=== PATIENT | female | born 1935 | race Caucasian/White ===

== ENCOUNTER → 2016-12-23 | Outpatient (CLI) | payer OTHER ==
[~2016-12-23] MED LIST: ALBINS/ INH; AMLO-114 PO; AMLO10TA2 PO; ASPEC81 PO; ASPI81TA28 PO; BENZ100C7 PO; CALC0.5C2 PO; CARV12.5 PO; CARV25TA2 PO; CRG125 PO; DOXY100C PO; ERGO1CAP35 PO; FRS/40 PO; FRS/80 PO; GFNSR600 PO; INSHI7030 SC; IPRA1AER2 INH; ISR10 PO; LISI40TA PO; LSN40 PO; MECL1TAB40 PO; NRV/10 PO; NRV/5 PO; NVLNI SQ; OMEP20TA PO; PRED10TA PO; PROAIR INH; RANI300T PO; ROSU20TA PO; SENNTAB23 PO; VTMD PO
[2016-12-23 10:24] LABS: HEMATOCRIT 39.3 % (37-47); MEAN CELL VOLUME 87.1 fL (80-100); MEAN CORPUSCULAR HEMOGLOBIN 29.5 pg (25-34); MEAN CORPUSCULAR HGB CONC 33.8 g/dl (32-36); MEAN PLATELET VOLUME 9.8 fL (7.4-10.4); PLATELET COUNT 289 K/uL (130-400); RED BLOOD COUNT 4.51 M/uL (4.2-5.4); WHITE BLOOD COUNT 10.59 K/uL (4.8-10.8)
[2016-12-23 10:27] LABS: URINE APPEARANCE CLEAR (CLEAR); URINE BILIRUBIN NEG (NEG); URINE COLOR YELLOW; URINE EPITHELIAL CELL AUTO >30 /lpf (0-5); URINE NITRITE NEG (NEG); URINE SPECIFIC GRAVITY 1.006 (1.000-1.030); UROBILINOGEN NEG (NEG)
[2016-12-23 10:37] LABS: BLOOD UREA NITROGEN 29 mg/dl (7-18); BUN/CREATININE RATIO 15.9 (10-20); CALCIUM 9.2 mg/dl (8.5-10.1); CARBON DIOXIDE 28 mmol/L (21-32); CHLORIDE 103 mmol/L (98-107); GLUCOSE 150 mg/dl (70-99); PHOSPHORUS 3.3 mg/dl (2.5-4.9); SODIUM 141 mmol/L (136-145)
[2016-12-23 10:39] LABS: MANUAL MICROSCOPIC REQUIRED? NO; REVIEW REQ? NO
[2016-12-23 10:51] LABS: URINE PROTIEN/CREAT RATIO 0.2 (0-0.2); URINE TOTAL PROTEIN 22.2 mg/dl (0-11.9)
== END | disposition home or self-care (01) ==
LOC: C.LAB1850 09:32
PROVIDERS: ATTEND Internal Medicine Nephrology
DX: N25.81 Secondary hyperparathyroidism of renal origin (principal); I12.9 Hypertensive chronic kidney disease with stage 1 through stage 4 chronic kidney disease, or unspecified chronic kidney disease; N28.1 Cyst of kidney, acquired; E55.9 Vitamin D deficiency, unspecified; N18.4 Chronic kidney disease, stage 4 (severe)

== ENCOUNTER 2017-01-17 19:24 | Observation (INO) | payer OTHER ==
[~2017-01-17] VITALS: Ht 167.6 cm; Wt 105.1 kg
[~2017-01-17 19:24] MED LIST changes: -ALBINS/ INH; -AMLO-114 PO; -ASPI81TA28 PO; -BENZ100C7 PO; -CRG125 PO; -DOXY100C PO; -FRS/40 PO; -INSHI7030 SC; -ISR10 PO; -LSN40 PO; -MECL1TAB40 PO; -NRV/10 PO; -NRV/5 PO; -NVLNI SQ; -PRED10TA PO; -PROAIR INH; -RANI300T PO; -ROSU20TA PO; -SENNTAB23 PO; -VTMD PO
[2017-01-17] MEDS ORDERED: ONDANSETRON INJ 2 MG/ML 2 ML VIAL IV STA (20:56)
[2017-01-17] MEDS ORDERED: MoRPHine SULFATE 4 MG/ML 1 ML CARP\\VIAL IV STA (20:56)
[2017-01-17] MEDS ORDERED: SODIUM CHLORIDE 0.9% 500ML 500 ML IV STA (20:56)
[2017-01-17] MEDS ORDERED: ALBUT/IPRATROP 3MG/0.5MG NEB 3 ML VIAL INH STA (20:56)
--- NOTE | 2017-01-17 20:59 | EMERGENCY ROOM VISIT NOTE ---
History Report prepared by Naila: Katerina Condon Under the Supervision of: Dr. Ang Kumar M.D. First contact with patient: 20:49 Chief Complaint: CONGESTION Stated Complaint: SOB, CHEST PAIN DUE TO COLD, DIABETIC Nursing Triage Summary: c/o cough and congestion since sat. more short of breath. History of Present Illness The patient is a 81 year old female who presents to the Emergency Room with complaints of worsening cough and congestion that started 4 days ago. Associated symptoms include a "burning" chest pain, headaches, abdominal pain, nausea, and shortness of breath. The patient has a history of diabetes and hypertension. She did receive a flu vaccination this year. The patient has been using a breathing treatment today which offered mild relief of her symptoms. She denies a sore throat. Source of History: patient Onset: 4 days ago Position: other (Respiratory System ) Timing: worsening Modifying Factors (Relieving): other (Breathing treatment ) Associated Symptoms: + abdominal pain, + chest pain, + headache, + nausea, No sorethroat Review of Systems See HPI for pertinent positives & negatives. A total of 10 systems reviewed and were otherwise negative. Past Medical & Surgical Medical Problems: (1) DM (diabetes mellitus) (2) HTN (hypertension) (3) Irregular heart beat (4) Kidney disease Surgical Problems: (1) H/O: hysterectomy (2) Hx of appendectomy (3) Hx of cholecystectomy Family History Diabetes mellitus Heart disease Hypertension Social History Smoking Status: Never Smoker Drug Use: none Housing Status: lives alone Occupation Status: retired Current/Historical Medications Scheduled Amlodipine Besylate (Amlodipine Besylate), 5 MG PO DAILY Aspirin (Aspirin Ec), 81 MG PO DAILY Carvedilol (Carvedilol), 12.5 MG PO BID Ergocalciferol (Vitamin D), 50,000 UNIT PO WK Furosemide (Lasix), 40 MG PO TID Insulin Human Isophan/Regular (Humulin 70/30), 68 UNITS SC QAM Insulin Human Isophan/Regular (Humulin 70/30), 42 UNITS SC QPM Insulin Human NPH (Novolin N), 4 UNITS SQ AC Isosorbide Dinitrate (Isosorbide Dinitrate), 10 MG PO BID Lisinopril (Lisinopril), 40 MG PO DAILY Ranitidine Hcl (Zantac), 300 MG PO HS Rosuvastatin Calcium (Crestor), 10 MG PO DAILY [Proair], 2 PUFFS INH QID Scheduled PRN Benzonatate (Benzonatate), 100 MG PO TID PRN for Cough Meclizine HCl (Meclizine HCl), 12.5 MG PO TID PRN for Dizziness or Vertigo Allergies Coded Allergies: Morphine (Verified Allergy, Intermediate, confusion, 01/17/17) Codeine (Verified Allergy, Unknown, 03/07/13) Amlodipine (Verified Adverse Reaction, Mild, 03/07/13) UNKNOWN RXN TO AMLODIPINE-STILL TAKES NORVASC AT HOME Homatropine (Verified Adverse Reaction, Mild, 03/07/13) Replaces HYCODAN ANXIETY Hydrocodone (Verified Adverse Reaction, Mild, 03/07/13) Replaces HYCODAN ANXIETY Phenylpropanolamine (Verified Adverse Reaction, Unknown, 03/07/13) Replaces GUAIFENESIN/P Physical Exam Vital Signs Date Time Temp Pulse Resp B/P Pulse Ox O2 Delivery O2 Flow Rate FiO2 01/17/17 23:52 86 18 236/114 92 Room Air 01/17/17 23:24 83 01/17/17 23:19 86 20 233/108 96 Room Air 01/17/17 22:34 244/109 01/17/17 22:06 83 22 196/106 95 Room Air 01/17/17 21:25 86 16 210/110 97 Room Air 01/17/17 19:28 37.0 101 24 196/84 92 Room Air Physical Exam GENERAL: Patient is anxious appearing and in mild distress. Periodic cough noted. HEENT: No acute trauma, normocephalic atraumatic, mucous membranes moist, no nasal congestion, no scleral icterus. NECK: No stridor, no adenopathy, no meningismus, trachea is midline. LUNGS: Faint wheezing. No dyspnea. Breath sounds equal bilaterally. No rhonchi. HEART: Regular rate and rhythm. No murmurs, rubs, gallops appreciated. ABDOMEN: Soft, nontender, bowel sounds positive, no masses appreciated, no peritonitis. BACK: No midline tenderness, no CVA tenderness EXTREMITIES: Normal motion all extremities, no cyanosis, no edema. NEUROLOGIC: Alert and oriented, no acute motor or sensory deficits, no focal weakness, cranial nerves grossly intact. SKIN: No rash, no jaundice, no diaphoresis. Medical Decision & Procedures ER Provider Diagnostic Interpretation: X ray results are stated below per my interpretation and the radiologist's interpretation. SINGLE VIEW CHEST CLINICAL HISTORY: Dyspnea. FINDINGS: An AP, portable, upright chest radiograph is compared to study dated 11/17/2014. The examination is degraded by portable technique and apical lordotic positioning. The heart is enlarged and there is mild atherosclerotic calcification of the thoracic aorta. The pulmonary vasculature is noncongested. Chronic interstitial thickening is unchanged. The lungs and pleural spaces are clear. No pneumothorax is seen. The skeletal structures are osteopenic. The bony thorax is grossly intact. IMPRESSION: Cardiomegaly with no acute cardiopulmonary abnormality. Electronically signed by: Marco Morocho M.D. 01/17/2017 10:04 PM Dictated Date/Time: 01/17/2017 10:04 PM Laboratory Results 01/17/17 20:35 Red Blood Count 4.83, Mean Corpuscular Volume 85.5, Mean Corpuscular Hemoglobin 29.8, Mean Corpuscular Hemoglobin Concent 34.9, Mean Platelet Volume 9.6, Neutrophils (%) (Auto) 68.7, Lymphocytes (%) (Auto) 13.8, Monocytes (%) (Auto) 13.4, Eosinophils (%) (Auto) 3.4, Basophils (%) (Auto) 0.3, Neutrophils # (Auto ) 5.19, Lymphocytes # (Auto) 1.04, Monocytes # (Auto) 1.01, Eosinophils # (Auto ) 0.26, Basophils # (Auto) 0.02 01/17/17 20:35 Test 01/17/17 20:35 01/17/17 21:22 01/17/17 21:50 01/17/17 21:57 White Blood Count 7.55 K/uL (4.8-10.8) Red Blood Count 4.83 M/uL (4.2-5.4) Hemoglobin 14.4 g/dL (12.0-16.0) Hematocrit 41.3 % (37-47) Mean Corpuscular Volume 85.5 fL (80-100) Mean Corpuscular Hemoglobin 29.8 pg (25-34) Mean Corpuscular Hemoglobin Concent 34.9 g/dl (32-36) Platelet Count 262 K/uL (130-400) Mean Platelet Volume 9.6 fL (7.4-10.4) Neutrophils (%) (Auto) 68.7 % Lymphocytes (%) (Auto) 13.8 % Monocytes (%) (Auto) 13.4 % Eosinophils (%) (Auto) 3.4 % Basophils (%) (Auto) 0.3 % Neutrophils # (Auto) 5.19 K/uL (1.4-6.5) Lymphocytes # (Auto) 1.04 K/uL (1.2-3.4) Monocytes # (Auto) 1.01 K/uL (0.11-0.59) Eosinophils # (Auto) 0.26 K/uL (0-0.5) Basophils # (Auto) 0.02 K/uL (0-0.2) RDW Standard Deviation 42.6 fL (36.4-46.3) RDW Coefficient of Variation 13.7 % (11.5-14.5) Immature Granulocyte % (Auto) 0.4 % Immature Granulocyte # (Auto) 0.03 K/uL (0.00-0.02) Anion Gap 9.0 mmol/L (3-11) Est Creatinine Clear Calc Drug Dose 31.8 ml/min Estimated GFR () 32.0 Estimated GFR (Non- 27.6 BUN/Creatinine Ratio 17.1 (10-20) Calcium Level 9.9 mg/dl (8.5-10.1) Magnesium Level 2.1 mg/dl (1.8-2.4) Total Bilirubin 1.2 mg/dl (0.2-1) Direct Bilirubin 0.2 mg/dl (0-0.2) Aspartate Amino Transf (AST/SGOT) 18 U/L (15-37) Alanine Aminotransferase (ALT/SGPT) 27 U/L (12-78) Alkaline Phosphatase 85 U/L (45-117) Troponin I < 0.015 ng/ml (0-0.045) Total Protein 7.8 gm/dl (6.4-8.2) Albumin 4.2 gm/dl (3.4-5.0) Lipase 202 U/L (73-393) Bedside Lactic Acid Venous 1.21 mmol/L (0.90-1.70) Influenza Type A Antigen Neg for Influ A (NEG) Influenza Type B Antigen Neg for Influ B (NEG) Bedside Glucose 202 mg/dl (70-90) Test 01/17/17 23:25 Laboratory results as reviewed by me. Medications Administered Medications (Trade) Dose Ordered Sig/Riky Route Start Time Stop Time Status Last Admin Dose Admin Albuterol/ Ipratropium 3 ml 3 ml NOW STAT INH 01/17/17 20:56 01/17/17 20:58 DC 01/17/17 21:10 3 ML Sodium Chloride (Nss 500ml) 500 ml @ 999 mls/hr Q31M STAT IV 01/17/17 20:56 01/17/17 21:26 DC 01/17/17 21:11 999 MLS/HR Morphine Sulfate (MoRPHine SULFATE INJ) 2 mg NOW STAT IV 01/17/17 20:56 01/17/17 20:58 DC 01/17/17 21:11 2 MG Ondansetron HCl (Zofran Inj) 4 mg NOW STAT IV 01/17/17 20:56 01/17/17 20:58 DC 01/17/17 21:10 4 MG Labetalol HCl (Normodyne IV) 10 mg NOW STAT IV 01/17/17 21:54 01/17/17 21:55 DC 01/17/17 22:10 10 MG Labetalol HCl (Normodyne IV) 10 mg NOW STAT IV 01/17/17 22:39 01/17/17 22:40 DC 01/17/17 22:42 10 MG Hydrocodone Bit/ Homatropine Methylb (Hycodan Syrup) 5 ml NOW STAT PO 01/17/17 22:46 01/17/17 22:47 DC 01/17/17 23:13 5 ML Labetalol HCl (Normodyne IV) 10 mg NOW STAT IV 01/17/17 23:10 01/17/17 23:11 DC 01/17/17 23:15 10 MG ECG Indication: chest pain Rate (beats per minute): 86 Findings: no acute ischemic change, no ectopy, other (QTc 455) Change: no significant change ED Course 2051: The patient was evaluated in room C6. A complete history and physical exam was performed. 2055: Zofran Injection 4 mg IV, Morphine Sulfate 2 mg IV, Sodium Chloride 500 ml @ 999 mls/hr IV, DuoNeb 3 ml INH. 2153: Ordered Labetalol HCL IV 10 mg IV. 2238: Upon reevaluation, the patient's blood pressure is up to 244/109. The patient will receive another dose of Labetalol. She denies allergies to anything but Codeine. She would like to try Hycodan Syrup. 2239: Ordered Labetalol HCL 10 mg IV. 2246: Ordered Hycodan Syrup 5 ml PO. 2310: Ordered Labetalol HCL 10 mg IV. 2314: I discussed the patient's case with Dr. Doherty ([place]). He will evaluate the patient for further management and care. 2317: I spoke with the patient. She is agreeable with the treatment plan. Medical Decision Differential diagnosis: Etiologies such as infections, reactive airway disease, pneumonia, pneumothorax , COPD, CHF, cardiac ischemia, pulmonary embolism, musculoskeletal, gastrointestinal, as well as others were entertained. 81 yr old female with persistent worsening cough over last few weeks. Tried doxy without improvement. Arrived for cough though quite hypertensive. Persistent even after 3 rounds of labetalol. Neb given with mild improvement. Tried some Hycodan and adamant not allergic to it or components. Will defer further abx and steroids to hospitalist as no clear infectious etiology. Consults Time Called: 2311 Consulting Physician: Dr. Doherty ([place]) Returned Call: 2313 I discussed the patient's case with Dr. Doherty ([place]). He will evaluate the patient for further management and care. Impression Primary Impression: Hypertensive emergency Additional Impression: Persistent cough Scribe Attestation The scribe's documentation has been prepared under my direction and personally reviewed by me in its entirety. I confirm that the note above accurately reflects all work, treatment, procedures, and medical decision making performed by me. Departure Information Dispostion Being Evaluated By Hospitalist Fox Craig M.D. (PCP) Patient Instructions My [facility] Problem Qualifiers
[2017-01-17 21:04] LABS: BASO % 0.3 %; BASO ABS # 0.02 K/uL (0-0.2); COMPLETE YES; EOS % 3.4 %; HEMATOCRIT 41.3 % (37-47); IG% 0.4 %; LYMPH % 13.8 %; LYMPH ABS # 1.04 K/uL (1.2-3.4); MEAN CELL VOLUME 85.5 fL (80-100); MEAN CORPUSCULAR HEMOGLOBIN 29.8 pg (25-34); MEAN CORPUSCULAR HGB CONC 34.9 g/dl (32-36); MEAN PLATELET VOLUME 9.6 fL (7.4-10.4); MONO % 13.4 %; NEUT % 68.7 %; PLATELET COUNT 262 K/uL (130-400); RED BLOOD COUNT 4.83 M/uL (4.2-5.4); WHITE BLOOD COUNT 7.55 K/uL (4.8-10.8)
[2017-01-17] MEDS ORDERED: NVLNI SQ (21:10)
[2017-01-17] MEDS ORDERED: LSN40 PO (21:10)
[2017-01-17] MEDS ORDERED: ISR10 PO (21:10)
[2017-01-17] MEDS ORDERED: CRG125 PO (21:10)
[2017-01-17] MEDS ORDERED: RANI300T PO (21:10)
[2017-01-17] MEDS ORDERED: VTMD PO (21:10)
[2017-01-17] MEDS ORDERED: MECL1TAB40 PO (21:10)
[2017-01-17] MEDS ORDERED: ASPI81TA28 PO (21:10)
[2017-01-17] MEDS ORDERED: NRV/5 PO (21:10)
[2017-01-17] MEDS ORDERED: BENZ100C7 PO (21:10)
[2017-01-17] MEDS ORDERED: PROAIR INH (21:10)
[2017-01-17 21:22] LABS: ALT/SGPT 27 U/L (12-78); BLOOD UREA NITROGEN 29 mg/dl (7-18); BUN/CREATININE RATIO 17.1 (10-20); CALCIUM 9.9 mg/dl (8.5-10.1); CARBON DIOXIDE 26 mmol/L (21-32); CHLORIDE 103 mmol/L (98-107); GLUCOSE 230 mg/dl (70-99); POTASSIUM 3.7 mmol/L (3.5-5.1); SODIUM 138 mmol/L (136-145)
[2017-01-17 21:27] LABS: ALKALINE PHOSPHATASE 85 U/L (45-117); AST/SGOT 18 U/L (15-37)
[2017-01-17] MEDS ORDERED: FRS/40 PO (21:29)
[2017-01-17] MEDS ORDERED: LABETALOL HCL IV 5 MG/ML 20ML IV STA ×3 (21:54→23:10)
[2017-01-17] MEDS ORDERED: INSHI7030 SC ×2 (21:59)
[2017-01-17] MEDS ORDERED: ROSU20TA PO (21:59)
--- NOTE | 2017-01-17 22:06 | DIAGNOSTIC IMAGING REPORT ---
SINGLE VIEW CHEST CLINICAL HISTORY: Dyspnea. FINDINGS: An AP, portable, upright chest radiograph is compared to study dated 11/17/2014. The examination is degraded by portable technique and apical lordotic positioning. The heart is enlarged and there is mild atherosclerotic calcification of the thoracic aorta. The pulmonary vasculature is noncongested. Chronic interstitial thickening is unchanged. The lungs and pleural spaces are clear. No pneumothorax is seen. The skeletal structures are osteopenic. The bony thorax is grossly intact. IMPRESSION: Cardiomegaly with no acute cardiopulmonary abnormality. Electronically signed by: Marco Morocho M.D. 01/17/2017 10:04 PM Dictated Date/Time: 01/17/2017 10:04 PM
[2017-01-17] MEDS ORDERED: HYDROCODONE/HOMATROPINE SYRUP 5MG/1.5MG 5ML UDP PO STA (22:46)
[2017-01-17] MEDS ORDERED: AMLODIPINE BESYLATE 5 MG TAB PO ONE (23:30)
[2017-01-17 23:33] LABS: MAGNESIUM 2.1 mg/dl (1.8-2.4)
[2017-01-18] VITALS (10 sets, daily range): BP systolic 144–185; BP diastolic 53–99; PULSE 67–90; TEMP 36.5–36.9; O2SAT 90–98; Ht 167.6 cm; Wt 105.1 kg
[2017-01-18] MEDS ORDERED: LISINOPRIL 40 MG TAB PO STA (00:03)
[2017-01-18] MEDS ORDERED: FUROSEMIDE 40 MG TAB PO ONE (00:24)
[2017-01-18] MEDS ORDERED: ISOSORBIDE DINITRATE 10 MG TAB PO ONE (00:24)
[2017-01-18] MEDS ORDERED: PANTOprazole SOD 40 MG TAB PO ONE (00:26)
[2017-01-18] MEDS ORDERED: TRAMADOL HCL 50 MG TAB PO PRN (00:30)
[2017-01-18] MEDS ORDERED: ONDANSETRON INJ 2 MG/ML 2 ML VIAL IV PRN (00:30)
[2017-01-18] MEDS ORDERED: HYDROmorphone INJ 0.5 MG/0.5 ML SYR IV PRN (00:30)
[2017-01-18] MEDS ORDERED: LORAZEPAM 2 MG/ML 1 ML VIAL IV PRN (00:30)
[2017-01-18] MEDS ORDERED: ALBUT/IPRATROP 3MG/0.5MG NEB 3 ML VIAL INH PRN (00:30)
[2017-01-18] MEDS ORDERED: POTASSIUM CHLORIDE 10 MEQ TABCR PO STA (00:51)
[2017-01-18] MEDS ORDERED: ACETAMINOPHEN 325 MG TAB PO PRN (01:00)
[2017-01-18] MEDS ORDERED: GLUCOSE 40% GEL 15 GM TUBE PO PRN (01:00)
[2017-01-18] MEDS ORDERED: DEXTROSE 50% 50 ML SYR IV PRN (01:00)
[2017-01-18] MEDS ORDERED: GLUCOSE 10 TABS/TUBE PO PRN (01:00)
[2017-01-18] MEDS ORDERED: NITROGLYCERIN 0.4 MG SL PER TAB CHARGE SL PRN (01:00)
[2017-01-18] MEDS ORDERED: GLUCAGON FOR INJ 1 MG VIAL SQ PRN (01:00)
[2017-01-18] MEDS ORDERED: INSULIN GLARGINE SOLOSTAR 100 UNITS/ML 3 ML PEN SC ONE (01:15)
[2017-01-18] MEDS ORDERED: INSULIN ASPART 100 UNITS/ML 3 ML PEN SC ONE (01:15)
--- NOTE | 2017-01-18 02:39 | HISTORY & PHYSICAL EXAMINATION ---
DATE OF ADMISSION: 01/18/2017 PRIMARY CARE DOCTOR: Dr. Ramirez CHIEF COMPLAINT: Congestion, sob, headache HISTORY OF PRESENT ILLNESS: Medical history is significant for hypertension, DM2 insulin requiring, CRI (baseline creatinine from 1.8 to 2). Recent confinement in October 2014 for bronchitis. Patient was seen at the PCP's office last month for cold, flu-like symptoms for 2 weeks hx of cough and congestion. Some improvement with outpatient course of doxycycline. She admits to some sick contacts. Denies aspiration. Patient had recurrence of symptoms a few days ago acc by burning chest discomfort with shortness of breath, lia leg swelling and frontal headache symptoms. Patient is compliant with home meds. SBP at home 140s as per px. At the Emergency Room, SBP noted to be above 200. The patient was given Labetalol in the Emergency Room. MEDICAL HISTORY: As above. SURGERIES: She has had knee surgeries, hysterectomy, bilateral tubal ligation, cholecystectomy and appendectomy. HOME MEDICATIONS: Include; ProAir, Zantac, Crestor, Humulin, Novolin N, lisinopril, meclizine, aspirin, amlodipine, carvedilol, vitamin D and Lasix. ALLERGIES: TO MORPHINE, AND PHENYLPROPANOLAMINE. FAMILY HISTORY: Laryngeal cancer, stroke and throat cancer. PERSONAL AND SOCIAL HISTORY: non-smoker, no ETOH abuse, retired [employer] employee. REVIEW OF SYSTEMS: As per HPI, all other ROS negative. PHYSICAL EXAMINATION: VITAL SIGNS: Blood pressure was noted to be 244/109 later 136/104, pulse rate 86, RR 18, temperature 37 O2 sats 92 on room air. GENERAL: Noted to be obese, anxious, in no respiratory distress, incessant dry coughing. SKIN: Normal color. HEENT: [place] palpebral conjunctivae. Dry mucosa. NECK: Short neck. LUNGS: Decreased breath sounds. HEART: Regular rate and rhythm. ABDOMEN: Some distention, nontender. EXTREMITIES: min LE edema, no tenderness NEUROLOGIC: No gross focality. LABORATORIES: Hemoglobin was noted to be 14, hematocrit 40, white cell count 7.8, platelets 262 Sodium 138, K 4 chloride 103, CO2 26, BUN 13, creatinine 1.7 and glucose 200. Troponin was normal. Hemoglobin A1c from June 2016 was noted to be 7.4. Chest x-ray showed cardiomegaly and chronic interstitial thickening. EKG rate of 85, normal sinus rhythm, negative ischemia. PRWP CT of the head initial read no ICH Flu antigen test was negative. ASSESSMENT: 1. Headache secondary to hypertensive urgency, sinusitis symptoms, 2. HTN urgency 2 to missed nighttime medications, anxiety, resp illness 3. Chronic renal insufficiency, creatinine at baseline 4. Acute bronchitis sp outpx Doxycycline treatment rule out flu. no sepsis 5. DM2, insulin requiring reasonable control as of recent outpx hemoglobin A1c. 6. GERD sx, uncontrolled w/ home H2 ada PLAN: Observation PCU. facilitate home BP meds may need titration anxiolytic prn supportive management for bronchitis flu PCR, may need Tamiflu basal insulin, ISS BG goal 140-180. Patient due for a hemoglobin A1c check. add PPI to home GERD regimen DVT prophylaxis, Heparin subQ if no bleeding to head. Full code. MTDD
[2017-01-18] MEDS ORDERED: IV FLUIDS COMPLETED PRN (02:45)
[2017-01-18] MEDS ORDERED: LEVALBUTEROL/IPRATROPIUM NEB INH SCH (03:00)
[2017-01-18] MEDS ORDERED: CARVEDILOL 12.5 MG TAB PO ONE (03:00)
[2017-01-18 03:23] LABS: INFLUENZA A PCR Neg for Influ A (NEG); INFLUENZA B PCR Neg for Influ B (NEG)
[2017-01-18 06:22] LABS: ESTIMATED AVERAGE GLUCOSE 180 mg/dl; HA1C FLAG Normal (Normal)
[2017-01-18] MEDS: INSULIN ASPART 100 UNITS/ML 3 ML PEN SC SCH ×4 (06:30→21:12)
[2017-01-18] MEDS ORDERED: LORAZEPAM INJ 0.5 MG in SYRINGE 0.75 ML IV PRN (06:30)
--- NOTE | 2017-01-18 06:42 | DIAGNOSTIC IMAGING REPORT ---
CT OF THE HEAD WITHOUT CONTRAST CLINICAL HISTORY: Headache. COMPARISON STUDY: No previous studies for comparison. CT DOSE: 614.27 mGy.cm TECHNIQUE: Helical axial images of the head were obtained without IV contrast. Automated exposure control was utilized for the study. FINDINGS: No acute intracranial hemorrhage, midline shift or mass effect is present. Ventricular system is normal. Basilar cisterns are patent. There are no extra-axial collections. There are no findings to suggest acute dural sinus thrombosis or acute territorial infarct. White matter hypodensity suggests small vessel disease. There are no significant calvarial abnormalities. Mastoid air cells are clear. There is mild mucosal thickening of the sinuses. IMPRESSION: 1. No acute intracranial findings. 2. Mild sinus mucosal thickening. Electronically signed by: Chai Morales M.D. 01/18/2017 6:41 AM Dictated Date/Time: 01/18/2017 6:38 AM
[2017-01-18 06:59] LABS: BASO % 0.3 %; BASO ABS # 0.02 K/uL (0-0.2); COMPLETE YES; EOS % 2.4 %; HEMATOCRIT 39.3 % (37-47); IG% 0.3 %; LYMPH % 17.3 %; LYMPH ABS # 1.14 K/uL (1.2-3.4); MEAN CELL VOLUME 85.4 fL (80-100); MEAN CORPUSCULAR HEMOGLOBIN 29.8 pg (25-34); MEAN CORPUSCULAR HGB CONC 34.9 g/dl (32-36); MEAN PLATELET VOLUME 10.2 fL (7.4-10.4); MONO % 14.2 %; NEUT % 65.5 %; PLATELET COUNT 231 K/uL (130-400)
[2017-01-18] MEDS: IPRATROPIUM BROMIDE NEB SOLN 0.02% 2.5 ML VIAL INH SCH ×3 (07:03→20:31)
[2017-01-18] MEDS: LEVALBUTEROL 1.25MG/0.5ML NEB INH SCH ×3 (07:03→20:31)
[2017-01-18 07:32] LABS: BLOOD UREA NITROGEN 25 mg/dl (7-18); BUN/CREATININE RATIO 14.9 (10-20); CALCIUM 9.6 mg/dl (8.5-10.1); CARBON DIOXIDE 25 mmol/L (21-32); CHLORIDE 105 mmol/L (98-107); GLUCOSE 154 mg/dl (70-99); POTASSIUM 4.2 mmol/L (3.5-5.1); SODIUM 140 mmol/L (136-145)
[2017-01-18 07:43] LABS: PARTIAL THROMBOPLASTIN RATIO 1.1; PROTHROMBIN TIME (PATIENT) 10.5 SECONDS (9.0-12.0)
[2017-01-18] MEDS ORDERED: INSULIN GLARGINE SOLOSTAR 100 UNITS/ML 3 ML PEN SC SCH (09:00)
[2017-01-18] MEDS: CARVEDILOL 12.5 MG TAB PO SCH ×2 (09:04→21:11)
[2017-01-18] MEDS: ROSUVASTATIN CALCIUM 10 MG TAB PO SCH (09:04)
[2017-01-18] MEDS: ISOSORBIDE DINITRATE 10 MG TAB PO SCH ×2 (09:04→13:03)
[2017-01-18] MEDS: ASPIRIN 81 MG ECTAB PO SCH (09:05)
[2017-01-18] MEDS: FUROSEMIDE 40 MG TAB PO SCH ×3 (09:05→21:00)
[2017-01-18] MEDS: AMLODIPINE BESYLATE 5 MG TAB PO SCH (09:06)
[2017-01-18] MEDS: GUAIFENESIN 600 MG TABCR PO SCH ×2 (09:06→21:10)
[2017-01-18] MEDS: INSULIN GLARGINE SOLOSTAR 100 UNITS/ML 3 ML PEN SC SCH ×2 (09:07→21:13)
[2017-01-18] MEDS: HEPARIN SOD 5000 UNIT/0.5 ML CARP SQ SCH ×3 (09:37→21:13)
[2017-01-18] MEDS ORDERED: HYDROCODONE/HOMATROPINE SYRUP 5MG/1.5MG 5ML UDP PO PRN (11:00)
--- NOTE | 2017-01-18 17:02 | Progress Note ---
Medicine Progress Note Date & Time of Visit: Jan 18, 2017 at 16:42. Subjective Pt was seen and examined Lying in bed with no distress with daughter at bedside Pt said that she continue to have a dry cough she said that she does have some chest tenderness when coughing denies any palpitation, dizziness and sob Objective Last 8 Hrs Date Time Temp Pulse Resp B/P Pulse Ox O2 Delivery O2 Flow Rate FiO2 01/18/17 15:06 36.7 71 20 144/53 98 Room Air 01/18/17 14:19 76 16 95 Room Air 01/18/17 12:00 Room Air 01/18/17 11:54 36.9 77 20 160/81 91 Room Air Physical Exam: General- No distress, obese Head- atraumatic Eyes- PERRL, EOMI ENT- oropharynx clear Neck- supple, no JVD Lungs- mild wheezing Heart- regular rhythm; murmur Abdomen- normal bowel sounds, soft Extremities- no calf tenderness Neuro- alert, oriented x 3; PERRL, EOMI Skin- warm & dry Laboratory Results: Last 24 Hours Test 01/17/17 20:35 01/17/17 21:22 01/17/17 21:50 01/17/17 21:57 White Blood Count 7.55 K/uL Red Blood Count 4.83 M/uL Hemoglobin 14.4 g/dL Hematocrit 41.3 % Mean Corpuscular Volume 85.5 fL Mean Corpuscular Hemoglobin 29.8 pg Mean Corpuscular Hemoglobin Concent 34.9 g/dl Platelet Count 262 K/uL Mean Platelet Volume 9.6 fL Neutrophils (%) (Auto) 68.7 % Lymphocytes (%) (Auto) 13.8 % Monocytes (%) (Auto) 13.4 % Eosinophils (%) (Auto) 3.4 % Basophils (%) (Auto) 0.3 % Neutrophils # (Auto) 5.19 K/uL Lymphocytes # (Auto) 1.04 K/uL Monocytes # (Auto) 1.01 K/uL Eosinophils # (Auto) 0.26 K/uL Basophils # (Auto) 0.02 K/uL RDW Standard Deviation 42.6 fL RDW Coefficient of Variation 13.7 % Immature Granulocyte % (Auto) 0.4 % Immature Granulocyte # (Auto) 0.03 K/uL Sodium Level 138 mmol/L Potassium Level 3.7 mmol/L Chloride Level 103 mmol/L Carbon Dioxide Level 26 mmol/L Anion Gap 9.0 mmol/L Blood Urea Nitrogen 29 mg/dl Creatinine 1.70 mg/dl Est Creatinine Clear Calc Drug Dose 31.8 ml/min Estimated GFR () 32.0 Estimated GFR (Non- 27.6 BUN/Creatinine Ratio 17.1 Random Glucose 230 mg/dl Estimated Average Glucose 180 mg/dl Hemoglobin A1c 7.9 % Calcium Level 9.9 mg/dl Magnesium Level 2.1 mg/dl Total Bilirubin 1.2 mg/dl Direct Bilirubin 0.2 mg/dl Aspartate Amino Transf (AST/SGOT) 18 U/L Alanine Aminotransferase (ALT/SGPT) 27 U/L Alkaline Phosphatase 85 U/L Troponin I < 0.015 ng/ml Total Protein 7.8 gm/dl Albumin 4.2 gm/dl Lipase 202 U/L Bedside Lactic Acid Venous 1.21 mmol/L Influenza Type A (RT-PCR) Neg for Influ A Influenza Type A Antigen Neg for Influ A Influenza Type B Antigen Neg for Influ B Influenza Type B (RT-PCR) Neg for Influ B Bedside Glucose 202 mg/dl Test 01/18/17 01:30 01/18/17 06:20 01/18/17 06:55 01/18/17 07:44 Bedside Glucose 177 mg/dl 156 mg/dl White Blood Count 6.60 K/uL Red Blood Count 4.60 M/uL Hemoglobin 13.7 g/dL Hematocrit 39.3 % Mean Corpuscular Volume 85.4 fL Mean Corpuscular Hemoglobin 29.8 pg Mean Corpuscular Hemoglobin Concent 34.9 g/dl Platelet Count 231 K/uL Mean Platelet Volume 10.2 fL Neutrophils (%) (Auto) 65.5 % Lymphocytes (%) (Auto) 17.3 % Monocytes (%) (Auto) 14.2 % Eosinophils (%) (Auto) 2.4 % Basophils (%) (Auto) 0.3 % Neutrophils # (Auto) 4.32 K/uL Lymphocytes # (Auto) 1.14 K/uL Monocytes # (Auto) 0.94 K/uL Eosinophils # (Auto) 0.16 K/uL Basophils # (Auto) 0.02 K/uL RDW Standard Deviation 43.6 fL RDW Coefficient of Variation 14.0 % Immature Granulocyte % (Auto) 0.3 % Immature Granulocyte # (Auto) 0.02 K/uL Sodium Level 140 mmol/L Potassium Level 4.2 mmol/L Chloride Level 105 mmol/L Carbon Dioxide Level 25 mmol/L Anion Gap 10.0 mmol/L Blood Urea Nitrogen 25 mg/dl Creatinine 1.70 mg/dl Est Creatinine Clear Calc Drug Dose 31.6 ml/min Estimated GFR () 32.0 Estimated GFR (Non- 27.6 BUN/Creatinine Ratio 14.9 Random Glucose 154 mg/dl Calcium Level 9.6 mg/dl Troponin I < 0.015 ng/ml Prothrombin Time 10.5 SECONDS Prothromb Time International Ratio 1.0 Activated Partial Thromboplast Time 29.2 SECONDS Partial Thromboplastin Ratio 1.1 Test 01/18/17 11:41 01/18/17 16:27 Bedside Glucose 177 mg/dl 194 mg/dl Date/Time Source Procedure Growth Status 01/17/17 21:15 Blood Blood Culture Pending Received 01/17/17 20:35 Blood Blood Culture Pending Received Assessment & Plan Headache Possible secondary to sinusitis symptoms will possible add flonase prn Tylenol prn HTN urgency possible related to miss night dose BP medications + anxiety + illness BP has been stable continue home med Chronic renal insufficiency creatinine 1.7 at baseline 4. Bronchitis sp outpx Doxycycline treatment Flu negative. DM2 Hba1c 7.9 (01/17/17) on insulin coverage continue monitor BS DVT px on heparin subq Code status Full code Current Inpatient Medications: Current Inpatient Medications Medications (Trade) Dose Ordered Sig/Riky Route Start Time Stop Time Status Last Admin Dose Admin Furosemide (Lasix Tab) 40 mg TID PO 01/18/17 09:00 02/17/17 08:59 01/18/17 13:03 40 MG Isosorbide Dinitrate (Isordil Tab) 10 mg BID@0700,1200 PO 01/18/17 07:00 02/17/17 06:59 01/18/17 13:03 10 MG Pantoprazole Sodium (Protonix Tab) 40 mg QAM PO 01/19/17 09:00 02/18/17 08:59 Amlodipine Besylate (Norvasc Tab) 5 mg DAILY PO 01/18/17 09:00 02/17/17 08:59 01/18/17 09:06 5 MG Aspirin (Ecotrin Tab) 81 mg DAILY PO 01/18/17 09:00 02/17/17 08:59 01/18/17 09:05 81 MG Benzonatate (Tessalon Perles Cap) 100 mg TID PRN PO 01/18/17 00:30 02/17/17 00:29 Carvedilol (Coreg Tab) 12.5 mg BID PO 01/18/17 09:00 02/17/17 08:59 01/18/17 09:04 12.5 MG Lisinopril (Zestril Tab) 40 mg HS PO 01/18/17 21:00 02/17/17 20:59 Rosuvastatin Calcium (Crestor Tab) 10 mg DAILY PO 01/18/17 09:00 02/17/17 08:59 01/18/17 09:04 10 MG Ranitidine HCl (zANTac TAB) 300 mg HS PO 01/18/17 21:00 02/17/17 20:59 Guaifenesin (Mucinex Contr Rel Tab) 600 mg Q12 PO 01/18/17 09:00 02/17/17 08:59 01/18/17 09:06 600 MG Albuterol/ Ipratropium (Duoneb) 3 ml Q2H PRN INH 01/18/17 00:30 02/17/17 00:29 Lorazepam (Ativan Inj) 0.5 mg Q4H PRN IV 01/18/17 00:30 02/17/17 00:29 Hydromorphone HCl (Dilaudid Inj) 0.5 mg Q3H PRN IV 01/18/17 00:30 02/01/17 00:29 Tramadol HCl (Ultram Tab) 25 mg Q6H PRN PO 01/18/17 00:30 02/17/17 00:29 Ondansetron HCl (Zofran Inj) 4 mg Q6H PRN IV 01/18/17 00:30 02/17/17 00:29 01/18/17 03:33 4 MG Heparin Sodium (Porcine) (Heparin Sq 5000 Unit/0.5ml) 5,000 unit Q8 SQ 01/18/17 06:00 02/17/17 05:59 01/18/17 13:05 5,000 UNIT Acetaminophen (Tylenol Tab) 650 mg Q4H PRN PO 01/18/17 01:00 02/17/17 00:59 01/18/17 09:16 650 MG Nitroglycerin (Nitrostat Tab) 0.4 mg UD PRN SL 01/18/17 01:00 02/17/17 00:59 Insulin Aspart (novoLOG ASPART) SLIDING SCALE If C... ACHS SC 01/18/17 06:30 02/17/17 06:59 Glucose (Glucose 40% Gel) 15-30 GRAMS 15 GRAMS... UD PRN PO 01/18/17 01:00 02/17/17 00:59 Glucose (Glucose Chew Tab) 4-8 Tablets 4 Tabl... UD PRN PO 01/18/17 01:00 02/17/17 00:59 Dextrose (Dextrose 50% 50ML Syringe) 25-50ML OF 50% DW IV FOR... UD PRN IV 01/18/17 01:00 02/17/17 00:59 Glucagon (Glucagon Inj) 1 mg UD PRN SQ 01/18/17 01:00 02/17/17 00:59 Insulin Glargine (Lantus Solostar Pen) 5 unit BID SC 01/18/17 09:00 02/17/17 08:59 01/18/17 09:07 5 UNIT Miscellaneous (Iv Fluids Completed) 1 ea PRN PRN N/A 01/18/17 02:45 01/18/18 02:44 Ipratropium [place] (Atrovent 0.02% 0.5MG/2.5ML Neb) 0.5 mg Q6R INH 01/18/17 09:00 02/17/17 08:59 01/18/17 14:19 0.5 MG Levalbuterol 1.25 mg 1.25 mg Q6R INH 01/18/17 09:00 02/17/17 08:59 01/18/17 14:19 1.25 MG Lorazepam/Syringe (Ativan Inj/ Syringe) 1 ml @ 1 mls/min Q4H PRN IV 01/18/17 06:30 02/17/17 06:29 Hydrocodone Bit/ Homatropine Methylb (Hycodan Syrup) 5 ml Q8 PRN PO 01/18/17 11:00 02/01/17 10:59 01/18/17 13:04 5 ML
[2017-01-18] MEDS: BENZONATATE 100MG CAP PO PRN (19:45)
[2017-01-18] MEDS ORDERED: LISINOPRIL 40 MG TAB PO SCH (21:00)
[2017-01-18] MEDS ORDERED: RANITIDINE HCL 150 MG TAB PO SCH (21:00)
[2017-01-19] VITALS (9 sets, daily range): BP systolic 149–190; BP diastolic 72–88; PULSE 78–91; TEMP 36.4–36.9; O2SAT 91–94
[2017-01-19] MEDS: IPRATROPIUM BROMIDE NEB SOLN 0.02% 2.5 ML VIAL INH SCH ×2 (02:47→07:47)
[2017-01-19] MEDS: LEVALBUTEROL 1.25MG/0.5ML NEB INH SCH ×2 (02:47→07:47)
[2017-01-19] MEDS: HEPARIN SOD 5000 UNIT/0.5 ML CARP SQ SCH (06:34)
[2017-01-19] MEDS: ISOSORBIDE DINITRATE 10 MG TAB PO SCH ×2 (06:35→12:23)
[2017-01-19 06:37] LABS: BUN/CREATININE RATIO 15.9 (10-20); CALCIUM 9.3 mg/dl (8.5-10.1); CREATININE 1.9 mg/dl (0.60-1.20); POTASSIUM 4.4 mmol/L (3.5-5.1)
[2017-01-19] MEDS: INSULIN ASPART 100 UNITS/ML 3 ML PEN SC SCH ×2 (08:06→12:25)
[2017-01-19] MEDS: FUROSEMIDE 40 MG TAB PO SCH (08:07)
[2017-01-19] MEDS: INSULIN GLARGINE SOLOSTAR 100 UNITS/ML 3 ML PEN SC SCH (08:07)
[2017-01-19] MEDS: BENZONATATE 100MG CAP PO PRN (08:08)
[2017-01-19] MEDS: ROSUVASTATIN CALCIUM 10 MG TAB PO SCH (08:08)
[2017-01-19] MEDS: CARVEDILOL 12.5 MG TAB PO SCH (08:08)
[2017-01-19] MEDS: GUAIFENESIN 600 MG TABCR PO SCH (08:08)
[2017-01-19] MEDS: ASPIRIN 81 MG ECTAB PO SCH (08:09)
[2017-01-19] MEDS: AMLODIPINE BESYLATE 5 MG TAB PO SCH (08:09)
[2017-01-19] MEDS ORDERED: AMLODIPINE BESYLATE 5 MG TAB PO ONE (08:30)
[2017-01-19] MEDS ORDERED: PANTOprazole SOD 40 MG TAB PO SCH (09:00)
[2017-01-19] MEDS ORDERED: NRV/10 PO (11:59)
[2017-01-19] MEDS ORDERED: GFNSR600 PO (11:59)
--- NOTE | 2017-01-19 12:08 | Discharge Instructions ---
Discharge Instructions Date of Service Jan 19, 2017. Admission Reason for Admission: Hypertensive Urgency Discharge Discharge Diagnosis / Problem: Hypertension, Cough, Headache, DMT type 2 Discharge Goals Goal(s): Decrease discomfort, Improve function, Improve disease control Activity Recommendations Activity Limitations: resume your previous activity (as tolerated) . Instructions / Follow-Up Instructions / Follow-Up Follow up with your primary care provider Dr. Ramirez on January 23 at 10:50 am Advised pt to follow a low salt diet Please bring blood pressure log in your next follow up appointment Avoid substances that can damage your kidney such as NSAIDs (ibuprofen, naproxen , aleve, motrin) Current Hospital Diet Patient's current hospital diet: Diabetes Type 1 Diet Discharge Diet Recommended Diet: Low Sodium Diet (2gm Na), Diabetes Type 2 Diet Pending Studies Studies pending at discharge: no Laboratory Results Hemoglobin A1c Test 01/17/17 20:35 Range/Units Estimated Average Glucose 180 mg/dl Hemoglobin A1c 7.9 H 4.5-5.6 % Medical Emergencies . Who to Call and When: Medical Emergencies: If at any time you feel your situation is an emergency, please call 911 immediately. . Non-Emergent Contact Non-Emergency issues call your: Primary Care Provider Call Non-Emergent contact if: you have any medication questions . . "Provider Documentation" section prepared by Kalin Luna. VTE Core Measure Inpt VTE Proph given/why not?: Unfractionated heparin SQ [place] Drug Monitoring Program Search Results: no issues identified
--- NOTE | 2017-01-19 18:46 | Progress Note ---
Medicine Progress Note Date & Time of Visit: Jan 19, 2017 at 18:42. Subjective Pt was seen and examined Lying in bed with no distress Pt said that she feels better today her cough improved denies any chest pain, palpitation, dizziness and sob Objective Last 8 Hrs Date Time Temp Pulse Resp B/P Pulse Ox O2 Delivery O2 Flow Rate FiO2 01/19/17 11:00 36.4 91 20 92 Room Air Physical Exam: General- No distress, obese Head- atraumatic Eyes- PERRL, EOMI ENT- oropharynx clear Neck- supple, no JVD Lungs- No wheezing Heart- regular rhythm; murmur Abdomen- normal bowel sounds, soft Extremities- no calf tenderness Neuro- alert, oriented x 3; PERRL, EOMI Skin- warm & dry Laboratory Results: Last 24 Hours Test 01/18/17 20:52 01/19/17 05:26 01/19/17 07:40 01/19/17 11:33 Bedside Glucose 210 mg/dl 262 mg/dl 327 mg/dl Sodium Level 137 mmol/L Potassium Level 4.4 mmol/L Chloride Level 101 mmol/L Carbon Dioxide Level 27 mmol/L Anion Gap 9.0 mmol/L Blood Urea Nitrogen 30 mg/dl Creatinine 1.90 mg/dl Est Creatinine Clear Calc Drug Dose 28.3 ml/min Estimated GFR () 28.0 Estimated GFR (Non- 24.1 BUN/Creatinine Ratio 15.9 Random Glucose 265 mg/dl Calcium Level 9.3 mg/dl Test 01/19/17 11:34 Bedside Glucose 311 mg/dl Assessment & Plan Headache Possible secondary to sinusitis symptoms Tylenol prn resolved HTN urgency possible related to miss night dose BP medications + anxiety + illness amlodipine increase to 10mg daily advised pt to follow a low salt diet Bring BP log in your next appt with pcp Cough Continue Mucinex improved Chronic renal insufficiency creatinine 1.7 at baseline stable 4. Bronchitis sp outpx Doxycycline treatment Flu negative. DM2 Hba1c 7.9 (01/17/17) on insulin coverage continue monitor BS DVT px on heparin subq Code status Full code
[2017-01-20] MEDS ORDERED: AMLODIPINE BESYLATE 5 MG TAB PO SCH (09:00)
--- NOTE | 2017-01-21 07:59 | Discharge Summary ---
Discharge Summary Date of Service Jan 21, 2017. Discharge Summary Admission Date: Jan 18, 2017 at 00:46 Discharge Date: Jan 19, 2017 Discharge Disposition: Home Principal Diagnosis: HTN Urgency Secondary Diagnoses/Problems: HTN Headache Chronic renal insufficiency Cough DM II Medication Reconciliation New Medications: Amlodipine Besylate (Amlodipine Besylate) 10 Mg Tab 1 TAB PO DAILY for 30 Days Guaifenesin Ext Rel (Mucinex Ext Rel) 600 Mg Tabcr 600 MG PO Q12 for 7 Days Continued Medications: Aspirin (Aspirin Ec) 81 Mg Tab 81 MG PO DAILY Carvedilol (Carvedilol) 12.5 Mg Tab 12.5 MG PO BID, #270 Ergocalciferol (Vitamin D) 50,000 Interunit Cap 19455 UNIT PO WK, #12 Take sat Furosemide (Lasix) 40 Mg Tab 40 MG PO TID, TAB Insulin Human Isophan/Regular (Humulin 70/30) Inj 68 UNITS SC QAM, VIAL Insulin Human Isophan/Regular (Humulin 70/30) Inj 42 UNITS SC QPM, VIAL Insulin Human NPH (Novolin N) 100 Units/Ml Susp 4 UNITS SQ AC, #10 Isosorbide Dinitrate (Isosorbide Dinitrate) 10 Mg Tab 10 MG PO BID, #180 Lisinopril (Lisinopril) 40 Mg Tab 40 MG PO DAILY, #90 Meclizine HCl (Meclizine HCl) 12.5 Mg Tab 12.5 MG PO TID PRN for Dizziness or Vertigo, #30 Ranitidine Hcl (Zantac) 300 Mg Tab 300 MG PO HS, #30 Rosuvastatin Calcium (Crestor) 20 Mg Tab 10 MG PO DAILY, TAB [Proair] () 2 PUFFS INH QID, #9 Discontinued Medications: Amlodipine Besylate (Amlodipine Besylate) 5 Mg Tab 5 MG PO DAILY, #90 Benzonatate (Benzonatate) 100 Mg Cap 100 MG PO TID PRN for Cough, #50 Admission Information HPI (per Admitting provider): 81 yo F with PMH Medical significant for hypertension, DM2 insulin requiring, CKD (baseline creatinine from 1.8 to 2). Recent confinement in October 2014 for bronchitis. Patient was seen at the PCP's office last month for cold, flu-like symptoms for the last 2 weeks with cough and congestion. Some improvement with outpatient course of doxycycline. She admits to some sick contacts. Denies aspiration. Patient had recurrence of symptoms a few days ago associated by burning chest discomfort with shortness of breath, B/L legs swelling and frontal headache symptoms. She is compliant with her home medications SBP at home 140s as per px. At the Emergency Room, SBP noted to be above 200. The patient was given Labetalol in the Emergency Room. Physical Exam (per Admitting): VITAL SIGNS: Blood pressure was noted to be 244/109 later 136/104, pulse rate 86, RR 18, temperature 37 O2 sats 92 on room air. GENERAL: Noted to be obese, anxious, no respiratory distress, dry coughing. SKIN: Normal color. HEENT: [place] palpebral conjunctivae. Dry mucosa. NECK: Short neck. LUNGS: Decreased breath sounds. HEART: Regular rate and rhythm. ABDOMEN: Some distention, nontender. EXTREMITIES: trace LE edema, no tenderness NEUROLOGIC: No gross focality. Hospital Course Headache Possible secondary to sinusitis symptoms Tylenol prn resolved HTN urgency possible related to miss night dose BP medications + anxiety + illness amlodipine increase to 10mg daily advised pt to follow a low salt diet Bring BP log in your next appt with pcp Cough Continue Mucinex improved Chronic renal insufficiency creatinine 1.7 at baseline stable Bronchitis sp outpx Doxycycline treatment Flu negative. DM2 Hba1c 7.9 (01/17/17) on insulin coverage continue monitor BS DVT px on heparin subq Code status Full code Total time spent on discharge = 35 minutes This includes examination of the patient, discharge planning, medication reconciliation, and communication with other providers. Discharge Instructions Discharge Instructions Date of Service Jan 19, 2017. Admission Reason for Admission: Hypertensive Urgency Discharge Discharge Diagnosis / Problem: Hypertension, Cough, Headache, DMT type 2 Discharge Goals Goal(s): Decrease discomfort, Improve function, Improve disease control Activity Recommendations Activity Limitations: resume your previous activity (as tolerated) . Instructions / Follow-Up Instructions / Follow-Up Follow up with your primary care provider Dr. Ramirez on January 23 at 10:50 am Advised pt to follow a low salt diet Please bring blood pressure log in your next follow up appointment Avoid substances that can damage your kidney such as NSAIDs (ibuprofen, naproxen , aleve, motrin) Current Hospital Diet Patient's current hospital diet: Diabetes Type 1 Diet Discharge Diet Recommended Diet: Low Sodium Diet (2gm Na), Diabetes Type 2 Diet Pending Studies Studies pending at discharge: no Laboratory Results Hemoglobin A1c Test 01/17/17 20:35 Range/Units Estimated Average Glucose 180 mg/dl Hemoglobin A1c 7.9 H 4.5-5.6 % Medical Emergencies . Who to Call and When: Medical Emergencies: If at any time you feel your situation is an emergency, please call 911 immediately. . Non-Emergent Contact Non-Emergency issues call your: Primary Care Provider Call Non-Emergent contact if: you have any medication questions . . "Provider Documentation" section prepared by Kalin Luna. VTE Core Measure Inpt VTE Proph given/why not?: Unfractionated heparin SQ [place] Drug Monitoring Program Search Results: no issues identified Additional Copies To Fox Ramirez M.D.
== END 2017-01-19 12:30 | disposition home or self-care (01) ==
LOC: ENRESERVTM → ENRESERVDT → C.EDB 19:26 → C.EDINP 01-18 00:46 → C.MED 01-18 02:43
PROVIDERS: ADMIT Internal Medicine; ATTEND Internal Medicine
DX: I12.9 Hypertensive chronic kidney disease with stage 1 through stage 4 chronic kidney disease, or unspecified chronic kidney disease (principal); R05 Cough; N18.9 Chronic kidney disease, unspecified; E11.9 Type 2 diabetes mellitus without complications; K21.9 Gastro-esophageal reflux disease without esophagitis; Z79.82 Long term (current) use of aspirin; Z79.4 Long term (current) use of insulin; Z90.710 Acquired absence of both cervix and uterus; Z90.49 Acquired absence of other specified parts of digestive tract

== ENCOUNTER 2017-01-25 19:59 | Emergency (ER) | payer OTHER ==
[~2017-01-25] VITALS: Ht 167.6 cm; Wt 104.9 kg
[~2017-01-25 19:59] MED LIST changes: -AMLO10TA2 PO; -ASPEC81 PO; +ASPI81TA28 PO; -CALC0.5C2 PO; -CARV12.5 PO; -CARV25TA2 PO; +CRG125 PO; -ERGO1CAP35 PO; +FRS/40 PO; -FRS/80 PO; +INSHI7030 SC; -IPRA1AER2 INH; +ISR10 PO; -LISI40TA PO; +LSN40 PO; +MECL1TAB40 PO; +NRV/10 PO; +NVLNI SQ; -OMEP20TA PO; +PROAIR INH; +RANI300T PO; +ROSU20TA PO; +VTMD PO
[2017-01-25 20:31] VITALS: TEMP 36.7; Ht 167.6 cm; Wt 104.9 kg
[2017-01-25] MEDS ORDERED: ALBINS/ INH (21:26)
[2017-01-25] MEDS ORDERED: DOXY100C PO (21:26)
[2017-01-25] MEDS ORDERED: PRED10TA PO (21:26)
[2017-01-25] MEDS ORDERED: SENNTAB23 PO (21:26)
[2017-01-25] MEDS ORDERED: AMLO-114 PO (21:26)
[2017-01-25] MEDS ORDERED: SODIUM CHLORIDE 0.9% 1000ML 500 ML IV STA (21:29)
[2017-01-25] MEDS ORDERED: SODIUM CHLORIDE 0.9% 1000ML 1,000 ML IV STA (21:29)
--- NOTE | 2017-01-25 21:52 | DIAGNOSTIC IMAGING REPORT ---
CHEST ONE VIEW PORTABLE CLINICAL HISTORY: Abdominal pain. COMPARISON STUDY: Chest radiograph January 17, 2017. FINDINGS: The patient is rotated. Cardiomegaly is unchanged. There is no pneumothorax or pleural effusion. There is no evidence of pulmonary edema. The appearance of the chest is unchanged. IMPRESSION: No acute cardiopulmonary findings. Electronically signed by: Chai Morales M.D. 01/25/2017 9:50 PM Dictated Date/Time: 01/25/2017 9:50 PM
[2017-01-25] MEDS ORDERED: NovoLIN-R INSULIN PER UNIT CHARGE IV STA (22:07)
[2017-01-25 22:14] LABS: BASO % 0.1 %; BASO ABS # 0.01 K/uL (0-0.2); COMPLETE YES; HEMATOCRIT 38.1 % (37-47); IG% 1.7 %; LYMPH % 8.8 %; MEAN CELL VOLUME 84.1 fL (80-100); MEAN CORPUSCULAR HEMOGLOBIN 30.5 pg (25-34); MEAN CORPUSCULAR HGB CONC 36.2 g/dl (32-36); MEAN PLATELET VOLUME 9.4 fL (7.4-10.4); MONO % 7.6 %; NEUT % 81.8 %; PLATELET COUNT 362 K/uL (130-400); RED BLOOD COUNT 4.53 M/uL (4.2-5.4); WHITE BLOOD COUNT 14.82 K/uL (4.8-10.8)
[2017-01-25 22:22] LABS: URINE APPEARANCE CLEAR (CLEAR); URINE BILIRUBIN NEG (NEG); URINE COLOR YELLOW; URINE NITRITE NEG (NEG); URINE PH 5.5 (4.5-7.5); URINE SPECIFIC GRAVITY 1.011 (1.000-1.030); UROBILINOGEN NEG (NEG); ZZUR CULT IF INDIC CLEAN CATCH NO
[2017-01-25 22:25] LABS: MANUAL MICROSCOPIC REQUIRED? NO; REVIEW REQ? NO
[2017-01-25 22:37] LABS: ALT/SGPT 21 U/L (12-78); BLOOD UREA NITROGEN 59 mg/dl (7-18); BUN/CREATININE RATIO 29.5 (10-20); CALCIUM 9.7 mg/dl (8.5-10.1); CARBON DIOXIDE 24 mmol/L (21-32); CHLORIDE 102 mmol/L (98-107); GLUCOSE 310 mg/dl (70-99); SODIUM 137 mmol/L (136-145)
[2017-01-25 22:39] LABS: AST/SGOT 10 U/L (15-37)
[2017-01-25 22:47] LABS: ALKALINE PHOSPHATASE 81 U/L (45-117); BETA-HYDROXYBUTYRATE 1.39 mg/dL (0.2-2.81)
[2017-01-26 00:25] VITALS: BP 182/94; PULSE 83; O2SAT 94
--- NOTE | 2017-01-26 01:29 | EMERGENCY ROOM VISIT NOTE ---
History Report prepared by Naila: Brianna Morales Under the Supervision of: Dr. Alireza Lunsford M.D. First contact with patient: 21:29 Chief Complaint: HYPERGLYCEMIA Stated Complaint: BLOOD SUGAR SPIKE,DIZZINESS,WEAKNESS Nursing Triage Summary: Pt reports her BSG was 399 and she gave erself 42 units of scheduled insulin. Pt reports at 1900, 2 hours after insulin, BSG was 459. Pt reports being hypertensive since last visit when she was treated for bronchitis. Pt has taken 3 days of Prednisone. Pt reports feeling dizzy. History of Present Illness The patient is a 81 year old female who presents to the Emergency Room with complaints of worsening hyperglycemia that began this morning. The patient has a history of diabetes. She is on 68 units 70/30 Humulin in the morning and 42 units 70/30 Humulin in the evening. She also is on a Novolin sliding scale when her sugars are high. When she woke up around 0700 this morning, her sugar was 284. Through most of the afternoon, her sugars were in the 300s. At 1700, her sugar was 399. 2 hours ago, it was 459. She reports eating 2 scrambled eggs with a piece of toast for breakfast, a Lean Cuisine for lunch, and 1 slice of bread, 2 pieces of turkey, and a turkey bouillon cube for dinner. She has been trying to keep up with fluids today but is still thirsty. She did not want to drink too much to avoid leg swelling. She is on Lasix.This evening, she called her PCP's office regarding her blood sugar and was referred to the ED. She had a dizzy spell and hot flash just prior to arrival, which has resolved. The patient is concerned about her Novolin that she opened yet because the suspension appears different than usual. She notes that it is supposed to be good for 45 days out of the refrigerator. She notes that she was started on Prednisone a few days ago for bronchitis. She is also on Doxycycline. She has noticed improvement in her cough. Pt denies LOC, headache, fevers, chills, diaphoresis, visual changes, neck pain, chest pain, breathing difficulties, nausea, vomiting, abdominal pain, back pain, melena, hematochezia, urinary symptoms, numbness, weakness, lymphadenopathy, rash, or other complaints. Source of History: patient Onset: this morning Position: other (global) Symptom Intensity: blood sugar 459 Quality: other (hyperglycemia) Timing: worsening Note: Other symptoms: dizzy spell, hot flash Review of Systems See HPI for pertinent positives and negatives. A total of ten systems were reviewed and were otherwise negative. Past Medical & Surgical Medical Problems: (1) DM (diabetes mellitus) (2) HTN (hypertension) (3) Hypertensive urgency (4) Irregular heart beat (5) Kidney disease Surgical Problems: (1) H/O: hysterectomy (2) Hx of appendectomy (3) Hx of cholecystectomy Family History Diabetes mellitus Heart disease Hypertension Social History Smoking Status: Never Smoker Drug Use: none Housing Status: lives alone Occupation Status: retired Current/Historical Medications Scheduled Amlodipine (Norvasc), 10 MG PO QAM Aspirin (Aspirin Ec), 81 MG PO DAILY Carvedilol (Carvedilol), 12.5 MG PO BID Doxycycline Hyclate (Vibramycin), 100 MG PO BID Ergocalciferol (Vitamin D), 50,000 UNIT PO WK Furosemide (Lasix), 40 MG PO TID Insulin Human Isophan/Regular (Humulin 70/30), 68 UNITS SC QAM Insulin Human Isophan/Regular (Humulin 70/30), 42 UNITS SC QPM Insulin Human NPH (Novolin N), 4 UNITS SQ AC Isosorbide Dinitrate (Isosorbide Dinitrate), 10 MG PO BID Lisinopril (Lisinopril), 40 MG PO DAILY Prednisone (Prednisone), 10 MG PO DAILY Ranitidine Hcl (Zantac), 300 MG PO HS Rosuvastatin Calcium (Crestor), 10 MG PO DAILY Sennosides-Docusate Sodium (Stool Softener), 2 TABS PO Q2D AT HS Scheduled PRN Albuterol Sulf (Proventil 0.083% 2.5MG/3ML), 2.5 MG INH Q4H PRN for Shortness of Breath Meclizine HCl (Meclizine HCl), 12.5 MG PO TID PRN for Dizziness or Vertigo Allergies Coded Allergies: Morphine (Verified Allergy, Intermediate, confusion, 01/25/17) Phenylpropanolamine (Verified Adverse Reaction, Unknown, 01/25/17) Replaces GUAIFENESIN/P Physical Exam Vital Signs Date Time Temp Pulse Resp B/P Pulse Ox O2 Delivery O2 Flow Rate FiO2 01/26/17 00:25 83 20 182/94 94 01/25/17 22:21 88 18 155/84 96 Room Air 01/25/17 21:59 82 01/25/17 20:31 36.7 84 20 214/94 95 Room Air Physical Exam GENERAL: Awake, alert, well-appearing, in no distress HENT: Normocephalic, atraumatic. Oropharynx unremarkable. EYES: Normal conjunctiva. Sclera non-icteric. NECK: Supple. No nuchal rigidity. FROM. No JVD. RESPIRATORY: Clear to auscultation. CARDIAC: Regular rate, normal rhythm. Extremities warm and well perfused. Pulses equal. ABDOMEN: Soft, non-distended. No tenderness to palpation. No rebound or guarding. No masses. RECTAL: Deferred. MUSCULOSKELETAL: Chest examination reveals no tenderness. The back is symmetrical on inspection without obvious abnormality. There is no CVA tenderness to palpation. No joint edema. LOWER EXTREMITIES: Calves are equal size bilaterally and non-tender. No edema. No discoloration. NEURO: Normal sensorium. No sensory or motor deficits noted. SKIN: No rash or jaundice noted. Medical Decision & Procedures ER Provider Diagnostic Interpretation: Radiology results as stated below per my review and radiologist interpretation CHEST ONE VIEW PORTABLE CLINICAL HISTORY: Abdominal pain. COMPARISON STUDY: Chest radiograph January 17, 2017. FINDINGS: The patient is rotated. Cardiomegaly is unchanged. There is no pneumothorax or pleural effusion. There is no evidence of pulmonary edema. The appearance of the chest is unchanged. IMPRESSION: No acute cardiopulmonary findings. Electronically signed by: Chai Morales M.D. 01/25/2017 9:50 PM Dictated Date/Time: 01/25/2017 9:50 PM Laboratory Results 01/25/17 21:57 Red Blood Count 4.53, Mean Corpuscular Volume 84.1, Mean Corpuscular Hemoglobin 30.5, Mean Corpuscular Hemoglobin Concent 36.2, Mean Platelet Volume 9.4, Neutrophils (%) (Auto) 81.8, Lymphocytes (%) (Auto) 8.8, Monocytes (%) (Auto) 7.6, Eosinophils (%) (Auto) 0.0, Basophils (%) (Auto) 0.1, Neutrophils # (Auto) 12.13, Lymphocytes # (Auto) 1.30, Monocytes # (Auto) 1.13, Eosinophils # (Auto) 0.00, Basophils # (Auto) 0.01 01/25/17 21:57 Test 01/25/17 21:57 01/25/17 22:00 01/25/17 23:37 White Blood Count 14.82 K/uL (4.8-10.8) Red Blood Count 4.53 M/uL (4.2-5.4) Hemoglobin 13.8 g/dL (12.0-16.0) Hematocrit 38.1 % (37-47) Mean Corpuscular Volume 84.1 fL (80-100) Mean Corpuscular Hemoglobin 30.5 pg (25-34) Mean Corpuscular Hemoglobin Concent 36.2 g/dl (32-36) Platelet Count 362 K/uL (130-400) Mean Platelet Volume 9.4 fL (7.4-10.4) Neutrophils (%) (Auto) 81.8 % Lymphocytes (%) (Auto) 8.8 % Monocytes (%) (Auto) 7.6 % Eosinophils (%) (Auto) 0.0 % Basophils (%) (Auto) 0.1 % Neutrophils # (Auto) 12.13 K/uL (1.4-6.5) Lymphocytes # (Auto) 1.30 K/uL (1.2-3.4) Monocytes # (Auto) 1.13 K/uL (0.11-0.59) Eosinophils # (Auto) 0.00 K/uL (0-0.5) Basophils # (Auto) 0.01 K/uL (0-0.2) RDW Standard Deviation 41.5 fL (36.4-46.3) RDW Coefficient of Variation 13.6 % (11.5-14.5) Immature Granulocyte % (Auto) 1.7 % Immature Granulocyte # (Auto) 0.25 K/uL (0.00-0.02) Anion Gap 11.0 mmol/L (3-11) Est Creatinine Clear Calc Drug Dose 26.5 ml/min Estimated GFR () 26.3 Estimated GFR (Non- 22.7 BUN/Creatinine Ratio 29.5 (10-20) Calcium Level 9.7 mg/dl (8.5-10.1) Magnesium Level 2.0 mg/dl (1.8-2.4) Total Bilirubin 1.0 mg/dl (0.2-1) Direct Bilirubin 0.2 mg/dl (0-0.2) Aspartate Amino Transf (AST/SGOT) 10 U/L (15-37) Alanine Aminotransferase (ALT/SGPT) 21 U/L (12-78) Alkaline Phosphatase 81 U/L (45-117) Troponin I < 0.015 ng/ml (0-0.045) Total Protein 7.8 gm/dl (6.4-8.2) Albumin 4.0 gm/dl (3.4-5.0) Lipase 170 U/L (73-393) Beta-Hydroxybutyric Acid 1.39 mg/dL (0.2-2.81) Urine Color YELLOW Urine Appearance CLEAR (CLEAR) Urine pH 5.5 (4.5-7.5) Urine Specific [place] 1.011 (1.000-1.030) Urine Protein 1+ (NEG) Urine Glucose (UA) TRACE (NEG) Urine Ketones NEG (NEG) Urine Occult Blood NEG (NEG) Urine Nitrite NEG (NEG) Urine Bilirubin NEG (NEG) Urine Urobilinogen NEG (NEG) Urine Leukocyte Esterase NEG (NEG) Urine WBC (Auto) 0 /hpf (0-5) Urine RBC (Auto) 0-4 /hpf (0-4) Urine Hyaline Casts (Auto) 0 /lpf (0-5) Urine Epithelial Cells (Auto) 5-10 /lpf (0-5) Urine Bacteria (Auto) NEG (NEG) Bedside Glucose 164 mg/dl (70-90) Laboratory results reviewed by me Medications Administered Medications (Trade) Dose Ordered Sig/Riky Route Start Time Stop Time Status Last Admin Dose Admin Sodium Chloride (Nss 1000ml) 500 ml @ 999 mls/hr Q31M STAT IV 01/25/17 21:29 01/25/17 21:59 DC 01/25/17 21:29 999 MLS/HR Insulin Human Regular (novoLIN-R U-100 PER UNIT) 10 units NOW STAT IV 01/25/17 22:07 01/25/17 22:09 DC 01/25/17 22:26 10 UNITS ECG Indication: other (hyperglycemia) Rate (beats per minute): 78 Rhythm: normal sinus Findings: no acute ischemic change, no ectopy ED Course 2128: Ordered NSS 500 ml @ 999 mls/hr IV, NSS 1000 ml @ 125 mls/hr IV. 2200: The patient was evaluated in room B5. A complete history and physical exam was performed. 2206: Ordered Insulin Human regular 10 units IV. 2339: I consulted with the pharmacy. The cloudy appearance of the insulin is normal. 2344: I reevaluated the patient. Discussed results and discharge instructions: she verbalized understanding and agreement. The patient is ready for discharge. Medical Decision Triage Nursing notes reviewed. The patient's presentation and history were concerning for hypoglycemia. Etiologies such as metabolic, infection, hypo/hyperglycemia, electrolyte abnormalities, cardiac sources, intracerebral event, toxicologic, neurologic, as well as others were entertained. The patient has been on prednisone for her bronchitis. Her blood sugars have been elevated. She was high prior to discharge from the hospital. The patient had a mild leukocytosis on CBC that is currently taking prednisone. Her chest x -ray reveals no infiltrate. Her creatinine is mildly elevated but not significantly different than prior. Her blood glucose was 323 and then recheck showed 310. After receiving fluids and IV insulin this decreased into the 160 range. The patient had no findings of beta hydroxybutyrate and her cardiac markers were negative. She is doing well at this point in time. I discussed having a snack and her evening medication. She was hypertensive prior to discharge however she did not take her evening medication and did not want me to give it to her. She wanted to take it when she got home. I did offer this couple hours prior to discharge. The patient has a follow-up appointment in about 12 hours with her primary physician. She will continue her current regimen and follow up then. I did ask for her to discuss tapering off of her steroids much more quickly. The patient also noted some cloudy appearance to her insulin. I did discuss this with pharmacy and the appearance is expected. By the evaluation outlined above other emergent etiologies such as those listed in the differential, as well as others, were deemed relatively unlikely. The patient and family were informed about the findings as listed above. All questions were answered and they were pleased with the treatment. Return instructions were outlined and the patient was discharged in stable condition. The patient was referred to her PCP for follow-up tomorrow for a recheck of the current condition. The chart was completed utilizing [employer] voice recognition software. Grammatical errors, random word insertions, pronoun errors, and incomplete sentences are an occasional consequence of this system due to software limitations, ambient noise, and hardware issues. Any formal questions or concerns about the content, text, or information contained within the body of this dictation should be directly addressed to the physician for clarification. Impression Primary Impression: Hyperglycemia Scribe Attestation The scribe's documentation has been prepared under my direction and personally reviewed by me in its entirety. I confirm that the note above accurately reflects all work, treatment, procedures, and medical decision making performed by me. Departure Information Dispostion Home / Self-Care Referrals Fox Ramirez M.D. (PCP) Patient Instructions My [facility] Additional Instructions Continue current medications. Eat a snack with your medication tonight before bed. Follow-up with Dr. Ramirez tomorrow as scheduled. Return to the ER for worsening blood sugar problems, chest pain, difficulty breathing, fevers, vomiting, worsening of your condition, or as needed.
== END 2017-01-26 00:27 | disposition home or self-care (01) ==
LOC: C.EDB 20:01
DX: R73.9 Hyperglycemia, unspecified (principal); I10 Essential (primary) hypertension; E11.9 Type 2 diabetes mellitus without complications; N18.9 Chronic kidney disease, unspecified; Z90.710 Acquired absence of both cervix and uterus; Z90.49 Acquired absence of other specified parts of digestive tract; Z98.890 Other specified postprocedural states; Z79.82 Long term (current) use of aspirin; Z79.4 Long term (current) use of insulin; Z79.899 Other long term (current) drug therapy; Z88.5 Allergy status to narcotic agent; Z88.8 Allergy status to other drugs, medicaments and biological substances

== ENCOUNTER → 2017-04-11 | Outpatient (CLI) | payer OTHER ==
[~2017-04-11] MED LIST changes: +ALBINS/ INH; +AMLO-114 PO; +DOXY100C PO; -GFNSR600 PO; -NRV/10 PO; +PRED10TA PO; -PROAIR INH; +SENNTAB23 PO
[2017-04-11 10:20] LABS: HEMATOCRIT 39.7 % (37-47); MEAN CELL VOLUME 86.7 fL (80-100); MEAN CORPUSCULAR HEMOGLOBIN 30.1 pg (25-34); MEAN CORPUSCULAR HGB CONC 34.8 g/dl (32-36); MEAN PLATELET VOLUME 9.9 fL (7.4-10.4); PLATELET COUNT 313 K/uL (130-400); RED BLOOD COUNT 4.58 M/uL (4.2-5.4); WHITE BLOOD COUNT 8.15 K/uL (4.8-10.8)
[2017-04-11 10:28] LABS: BLOOD UREA NITROGEN 27 mg/dl (7-18); BUN/CREATININE RATIO 15.1 (10-20); CALCIUM 9.1 mg/dl (8.5-10.1); CARBON DIOXIDE 26 mmol/L (21-32); CHLORIDE 105 mmol/L (98-107); GLUCOSE 261 mg/dl (70-99); POTASSIUM 3.8 mmol/L (3.5-5.1); SODIUM 141 mmol/L (136-145)
[2017-04-11 10:44] LABS: URINE PROTIEN/CREAT RATIO 0.4 (0-0.2); URINE TOTAL PROTEIN 46.3 mg/dl (0-11.9)
[2017-04-11 10:57] LABS: URINE APPEARANCE CLEAR (CLEAR); URINE BILIRUBIN NEG (NEG); URINE COLOR YELLOW; URINE EPITHELIAL CELL AUTO >30 /lpf (0-5); URINE NITRITE NEG (NEG); UROBILINOGEN NEG (NEG)
[2017-04-11 11:15] LABS: MANUAL MICROSCOPIC REQUIRED? NO; REVIEW REQ? NO
== END | disposition home or self-care (01) ==
LOC: C.LAB1850 09:08
PROVIDERS: ATTEND Internal Medicine Nephrology
DX: I12.9 Hypertensive chronic kidney disease with stage 1 through stage 4 chronic kidney disease, or unspecified chronic kidney disease (principal); N18.4 Chronic kidney disease, stage 4 (severe); N25.81 Secondary hyperparathyroidism of renal origin; N28.1 Cyst of kidney, acquired; E55.9 Vitamin D deficiency, unspecified

== ENCOUNTER → 2017-05-18 | Outpatient (CLI) | payer OTHER ==
--- NOTE | 2017-05-18 16:01 | MAMMOGRAPHY REPORT ---
BILATERAL DIGITAL SCREENING MAMMOGRAM WITH CAD: 05/18/2017 CLINICAL HISTORY: Routine screening. Patient has no complaints. TECHNIQUE: Current study was also evaluated with a Computer Aided Detection (CAD) system. Bilateral CC and MLO views were obtained. COMPARISON: Comparison is made to exams dated: 05/17/2016 mammogram, 05/15/2015 mammogram, 05/14/2014 m ammogram, 05/13/2013 mammogram, 04/26/2012 mammogram, and 04/26/2011 mammogram - [facility] ter. BREAST COMPOSITION: There are scattered areas of fibroglandular density in both breasts. FINDINGS: No suspicious masses, calcifications, or areas of architectural distortion are noted in ei ther breast. There has been no significant interval change compared to prior exams. Bilateral benign -appearing calcifications, predominantly vascular calcifications, are again noted. IMPRESSION: ACR BI-RADS CATEGORY 2: BENIGN There is no mammographic evidence of malignancy. A 1 year screening mammogram is recommended. The pa tient will receive written notification of the results. Approximately 10% of breast cancers are not detected with mammography. A negative mammographic report should not delay biopsy if a clinically suggestive mass is present. Kait Haney M.D. /:05/18/2017 15:49:24 Burr Grinder: Lana Bermudez, [facility] letter sent: Normal 1/2 BI-RADS Code: ACR BI-RADS Category 2: Benign
== END | disposition home or self-care (01) ==
LOC: C.MAMM 10:32
PROVIDERS: ATTEND Family Medicine
DX: Z12.31 Encounter for screening mammogram for malignant neoplasm of breast (principal)

== ENCOUNTER → 2017-06-14 | Outpatient (CLI) | payer OTHER ==
[2017-06-14 09:36] LABS: HEMATOCRIT 42.1 % (37-47); MEAN CELL VOLUME 88.1 fL (80-100); MEAN CORPUSCULAR HEMOGLOBIN 28.7 pg (25-34); MEAN CORPUSCULAR HGB CONC 32.5 g/dl (32-36); MEAN PLATELET VOLUME 9.7 fL (7.4-10.4); PLATELET COUNT 324 K/uL (130-400); RED BLOOD COUNT 4.78 M/uL (4.2-5.4); WHITE BLOOD COUNT 8.47 K/uL (4.8-10.8)
[2017-06-14 09:44] LABS: URINE APPEARANCE CLEAR (CLEAR); URINE BILIRUBIN NEG (NEG); URINE COLOR YELLOW; URINE NITRITE NEG (NEG); URINE SPECIFIC GRAVITY 1.015 (1.000-1.030); UROBILINOGEN NEG (NEG)
[2017-06-14 09:46] LABS: MANUAL MICROSCOPIC REQUIRED? NO; REVIEW REQ? NO
[2017-06-14 09:57] LABS: URINE PROTIEN/CREAT RATIO 0.2 (0-0.2); URINE TOTAL PROTEIN 13.8 mg/dl (0-11.9)
[2017-06-14 10:08] LABS: BLOOD UREA NITROGEN 30 mg/dl (7-18); BUN/CREATININE RATIO 14.8 (10-20); CALCIUM 9.2 mg/dl (8.5-10.1); CARBON DIOXIDE 26 mmol/L (21-32); CHLORIDE 109 mmol/L (98-107); GLUCOSE 117 mg/dl (70-99); POTASSIUM 3.7 mmol/L (3.5-5.1); SODIUM 143 mmol/L (136-145)
== END | disposition home or self-care (01) ==
LOC: C.LAB1850 08:46
PROVIDERS: ATTEND Internal Medicine Nephrology
DX: I12.9 Hypertensive chronic kidney disease with stage 1 through stage 4 chronic kidney disease, or unspecified chronic kidney disease (principal); N25.81 Secondary hyperparathyroidism of renal origin; E55.9 Vitamin D deficiency, unspecified; N18.4 Chronic kidney disease, stage 4 (severe)

== ENCOUNTER → 2017-09-11 | Outpatient (CLI) | payer OTHER ==
[2017-09-11 10:37] LABS: HEMATOCRIT 38.5 % (37-47); MEAN CELL VOLUME 87.5 fL (80-100); MEAN CORPUSCULAR HEMOGLOBIN 29.3 pg (25-34); MEAN CORPUSCULAR HGB CONC 33.5 g/dl (32-36); PLATELET COUNT 297 K/uL (130-400); WHITE BLOOD COUNT 11.02 K/uL (4.8-10.8)
[2017-09-11 10:46] LABS: URINE APPEARANCE CLEAR (CLEAR); URINE BILIRUBIN NEG (NEG); URINE COLOR YELLOW; URINE EPITHELIAL CELL AUTO >30 /lpf (0-5); URINE NITRITE NEG (NEG); UROBILINOGEN NEG (NEG)
[2017-09-11 10:49] LABS: MANUAL MICROSCOPIC REQUIRED? NO; REVIEW REQ? NO
[2017-09-11 10:58] LABS: ESTIMATED AVERAGE GLUCOSE 177 mg/dl; HA1C FLAG Normal (Normal)
[2017-09-11 11:05] LABS: URINE PROTIEN/CREAT RATIO 0.2 (0-0.2); URINE TOTAL PROTEIN 31.9 mg/dl (0-11.9)
[2017-09-11 12:25] LABS: BLOOD UREA NITROGEN 38 mg/dl (7-18); BUN/CREATININE RATIO 19.4 (10-20); CALCIUM 9.2 mg/dl (8.5-10.1); CARBON DIOXIDE 24 mmol/L (21-32); CHLORIDE 104 mmol/L (98-107); CREATININE 1.95 mg/dl (0.60-1.20); GLUCOSE 199 mg/dl (70-99); PHOSPHORUS 3.7 mg/dl (2.5-4.9); SODIUM 139 mmol/L (136-145)
== END | disposition home or self-care (01) ==
LOC: C.LAB1850 09:34
PROVIDERS: ATTEND Internal Medicine Nephrology
DX: E11.22 Type 2 diabetes mellitus with diabetic chronic kidney disease (principal); N25.81 Secondary hyperparathyroidism of renal origin; I12.9 Hypertensive chronic kidney disease with stage 1 through stage 4 chronic kidney disease, or unspecified chronic kidney disease; N18.4 Chronic kidney disease, stage 4 (severe); N28.1 Cyst of kidney, acquired; E55.9 Vitamin D deficiency, unspecified

== ENCOUNTER → 2018-03-08 | Outpatient (CLI) | payer OTHER ==
[2018-03-08 12:16] LABS: HEMATOCRIT 38.4 % (37-47); HEMOGLOBIN 12.9 g/dL (12.0-16.0); MEAN CELL VOLUME 86.9 fL (80-100); MEAN CORPUSCULAR HEMOGLOBIN 29.2 pg (25-34); MEAN CORPUSCULAR HGB CONC 33.6 g/dl (32-36); MEAN PLATELET VOLUME 9.7 fL (7.4-10.4); PLATELET COUNT 295 K/uL (130-400); RED CELL DISTRIBUTION WIDTH CV 13.3 % (11.5-14.5); RED CELL DISTRIBUTION WIDTH SD 42.8 fL (36.4-46.3); WHITE BLOOD COUNT 8.25 K/uL (4.8-10.8)
[2018-03-08 12:43] LABS: ALBUMIN 3.7 gm/dl (3.4-5.0); BLOOD UREA NITROGEN 43 mg/dl (7-18); CALCIUM 8.9 mg/dl (8.5-10.1); CARBON DIOXIDE 25 mmol/L (21-32); CREATININE 2.26 mg/dl (0.60-1.20); GLUCOSE 212 mg/dl (70-99); PHOSPHORUS 4.1 mg/dl (2.5-4.9); SODIUM 140 mmol/L (136-145)
== END | disposition home or self-care (01) ==
LOC: C.LAB1850 11:30
PROVIDERS: ATTEND Internal Medicine Nephrology
DX: N25.81 Secondary hyperparathyroidism of renal origin (principal); I12.9 Hypertensive chronic kidney disease with stage 1 through stage 4 chronic kidney disease, or unspecified chronic kidney disease; N18.4 Chronic kidney disease, stage 4 (severe); E55.9 Vitamin D deficiency, unspecified

== ENCOUNTER → 2018-05-21 | Outpatient (CLI) | payer OTHER ==
[~2018-05-21] MED LIST changes: -AMLO-114 PO; +AMLO10TA3 PO; -DOXY100C PO; +ERGO500011 PO; +LISI40TA3 PO; -LSN40 PO; +ONDA4TAB10 SL; -VTMD PO
--- NOTE | 2018-05-22 15:23 | MAMMOGRAPHY REPORT ---
BILATERAL DIGITAL SCREENING MAMMOGRAM TOMOSYNTHESIS WITH CAD: 05/21/2018 CLINICAL HISTORY: Routine screening. TECHNIQUE: The study was acquired using full field digital technology and interpreted from soft copy. Breast tomosynthesis in addition to standard 2D mammography was performed. Current study was also ev aluated with a Computer Aided Detection (CAD) system. COMPARISON: Comparison is made to exams dated: 05/18/2017 mammogram, 05/17/2016 mammogram, 05/15/2015 m ammogram, 05/14/2014 mammogram, 05/13/2013 mammogram, and 04/26/2012 mammogram - [facility] nter. BREAST COMPOSITION: There are scattered areas of fibroglandular density in both breasts. FINDINGS: Moderate vascular calcifications in the breasts. No suspicious mass, architectural distorti on or cluster of microcalcifications is seen. IMPRESSION: ACR BI-RADS CATEGORY 1: NEGATIVE There is no mammographic evidence of malignancy. A 1 year screening mammogram is recommended.( 019) The patient will receive written notification of the results. Some breast cancers are not detected with mammography. A negative mammographic report should not liam y biopsy if a clinically suggestive mass is present. Heather Murillo M.D. ay/:05/21/2018 16:39:28 [employer] Maker: RT Jessica(Vidal)(M), [facility] letter sent: Normal 1/2 BI-RADS Code: ACR BI-RADS Category 1: Negative
== END | disposition home or self-care (01) ==
LOC: C.MAMM 12:41
PROVIDERS: ATTEND Family Medicine
DX: Z12.31 Encounter for screening mammogram for malignant neoplasm of breast (principal)

== ENCOUNTER 2019-11-18 21:53 | Inpatient (IN) ==
[2019-11-18 22:27] LABS: Basophils # (auto) 0.02 K/uL (0-0.2); Basophils % (auto) 0.2 %; Eosinophils # (auto) 0.24 K/uL (0-0.5); Eosinophils % (auto) 2.7 %; Hematocrit (blood only) 38.8 % (37-47); Hemoglobin 12.9 g/dL (12.0-16.0); Immature Granulocytes # (auto) 0.03 K/uL (0.00-0.02); Immature Granulocytes % (auto) 0.3 %; Lymphocytes # (auto) 2.44 K/uL (1.2-3.4); Lymphocytes % (auto) 27.6 %; Mean Corpuscular Hemoglobin 29.7 pg (25-34); Mean Corpuscular Hgb Conc 33.2 g/dL (32-36); Mean Corpuscular Volume 89.2 fL (80-100); Mean Platelet Volume 9.2 fL (7.4-10.4); Monocytes # (auto) 0.95 K/uL (0.11-0.59); Monocytes % (auto) 10.7 %; Neutrophils # (auto) 5.16 K/uL (1.4-6.5); Neutrophils % (auto) 58.5 %; Platelet Count 311 K/uL (130-400); RDW Coefficient of Variation 13.1 % (11.5-14.5); RDW Standard Deviation 42.8 fL (36.4-46.3); Red Blood Count 4.35 M/uL (4.2-5.4); White Blood Count 8.84 K/uL (4.8-10.8)
--- NOTE | 2019-11-18 22:33 | XRay Report ---
XR chest 1V portable CLINICAL HISTORY: Chest Pain dyspnea COMPARISON STUDY: 12/30/2018 FINDINGS: Mild cardiac enlargement. Prominent pulmonary vasculature. Diaphragms are smooth. IMPRESSION: Developing congestive heart failure ACT 112: Negative or not required by law. The above report was generated using voice recognition software. It may contain grammatical, syntax or spelling errors. Electronically signed by: Kaushal Marti M.D. 11/18/2019 10:32 PM
[2019-11-18 22:45] LABS: Alanine Aminotransferase 20 U/L (12-78); Albumin Level 3.9 gm/dl (3.4-5.0); Aspartate Aminotransferase 14 U/L (15-37); BUN Creatinine Ratio 21.3 (10-20); Blood Urea Nitrogen 39 mg/dl (7-18); Calcium 9.9 mg/dl (8.5-10.1); Carbon Dioxide 29 mmol/L (21-32); Chloride 104 mmol/L (98-107); Est GFR (Non-African American) 25.1; Glucose 141 mg/dl (70-99); Lipase 186 U/L (73-393); Magnesium 2.3 mg/dl (1.8-2.4); Potassium 3.8 mmol/L (3.5-5.1); Sodium 138 mmol/L (136-145)
[2019-11-18 22:56] LABS: Albumin Globulin Ratio 1.2 (0.9-2); Alkaline Phosphatase 65 U/L (45-117); Bilirubin,Total 0.8 mg/dl (0.2-1); Globulin 3.3 gm/dl (2.5-4.0); NT Pro B Type Natriuretic Pept 766 pg/ml (0-1800); Phosphorus 2.7 mg/dl (2.5-4.9); Total Protein 7.2 gm/dl (6.4-8.2); Troponin I < 0.015 ng/ml (0-0.045)
[2019-11-18 23:04] LABS: Appearance Urine Clear (Clear); Bacteria Urine Automated Negative (Negative); Bilirubin Urine Negative (Negative); Blood Urine Negative (Negative); Color Urine Yellow; Glucose Urine UA Negative (Negative); Ketones Urine Negative (Negative); Leukocyte Esterase Urine Negative (Negative); Nitrite Urine Negative (Negative); Protein Urine 1+ (Negative); RBC Urine Automated 0-4 /hpf (0-4); Specific Gravity Urine 1.008 (1.000-1.030); Urobilinogen Urine Negative (Negative); WBC Urine Automated 0 /hpf (0-5)
[2019-11-18] MEDS ORDERED: FUROSEMIDE 40 MG/4 ML VIAL IV STA (23:53)
[2019-11-19] MEDS ORDERED: LABETALOL HCL IV 5 MG/ML 20ML IV STA (00:24)
--- NOTE | 2019-11-19 01:34 | Emergency Department Note ---
Entered by Cristobal García acting as a scribe for History of Present Illness General Chief complaint: Hypertension Stated complaint: HIGH BLOOD PRESSURE Time Seen by Provider: 11/18/19 22:11 Source: patient History of Present Illness Onset (ago): week(s) 1 Severity: severe (systolic blood pressure of 220) Pain Consistency: + other (persistent) Quality: + other (hypertension) Associated symptoms: + other (Positive for SOB, nausea, night diaphoresis, back pain, and an occasional pinch of chest pain. Negative for fever, chills, cough, congestion, and recent weight gain.) The patient is an 84 year old female who presents to the emergency department with complaints of persistent hypertension beginning a week ago. The patient states that she has a history of Afib, hypertension, and CHF. She notes that her blood pressure has been high for the last week, but she reports that her systolic blood pressure was 220 at home today. She also complains of SOB, nausea, night diaphoresis, back pain, and of an occasional pinch of chest pain. The patient states that she did not use her usual lidocaine patch for her back pain. She denies any fever, chills, cough, congestion, and recent weight gain. She notes that she wears oxygen at home. Home Medications Home Medications Medication Instructions Recorded Confirmed Type acetaminophen [Tylenol Extra 1,000 mg PO AMHS 12/30/18 11/18/19 History Strength] amlodipine 2.5 mg PO HS 12/30/18 11/18/19 History aspirin 81 mg PO QAM 12/30/18 11/18/19 History carvedilol 18.75 mg PO BID 12/30/18 11/18/19 History ergocalciferol (vitamin D2) 50,000 unit PO WK 12/30/18 11/18/19 History furosemide 80 mg PO BID 12/30/18 11/18/19 History insulin aspart U-100 [Novolog 0 unit SUBCUT AC 12/30/18 11/18/19 History U-100 Insulin aspart] isosorbide dinitrate 20 mg PO TID 12/30/18 11/18/19 History lisinopril 40 mg PO QAM 12/30/18 11/18/19 History rosuvastatin 10 mg PO QPM 12/30/18 11/18/19 History Oxygen Home #1 ea 05/31/19 10/21/19 Rx insulin human U-100 NPH-regulr 55 units SUBCUT QPM ml 10/21/19 11/18/19 History 70-30 mix 100 unit/mL subcutaneous susp insulin human U-100 NPH-regulr 75 units SUBCUT QAM ml 10/21/19 11/18/19 History 70-30 mix 100 unit/mL subcutaneous susp docusate sodium [Colace] 200 mg PO HS 11/18/19 11/18/19 History famotidine [Pepcid] 20 mg PO DAILY 11/18/19 11/18/19 History Allergies Allergy/AdvReac Type Severity Reaction Status Date / Time morphine Allergy Intermediate confusion Verified 11/18/19 23:58 phenylpropanolamine AdvReac Unknown Unknown Verified 11/18/19 23:58 Past Med/Surg History Medical History Atrial fibrillation (Chronic) CHF (congestive heart failure) (Chronic) Chronic kidney disease (CKD), stage IV (severe) (Chronic) HTN (hypertension) (Chronic) Surgical History H/O: hysterectomy (Resolved) Hx of appendectomy (Resolved) Hx of cholecystectomy (Resolved) Family History Other No significant family history Social History Preferred Language: Welsh Feels Safe at Home: Yes Smoking Status: Never smoker Review of Systems See HPI for pertinent positives & negatives. and A total of 10 systems reviewed and were otherwise negative Physical Exam Vital Signs Vital Signs - 24 hr 11/18/19 21:55 11/18/19 22:08 11/18/19 22:13 Temperature 36.5 C Temperature Source Oral Pulse Rate 78 71 Pulse Rate [Finger] 71 Pulse Rate from SpO2 Sensor Pulse Rhythm Regular Pulse Strength Normal Respiratory Rate 20 18 18 Respiratory Effort / Characteristics Non-Labored Spontaneous Respiratory Depth Normal Respiratory Pattern Regular Blood Pressure 226/91 H 269/100 H Blood Pressure [Left Arm] 269/100 H Blood Pressure Mean 136 142 Blood Pressure Mean [Left Arm] 156 Blood Pressure Position Sitting Pulse Oximetry 97 97 Oxygen Delivery Method Room Air Room Air Sepsis Recent Fever Within 48 Hours No Sepsis Action Taken by Nursing No Action Required 11/18/19 22:16 11/18/19 22:18 11/18/19 22:30 Temperature Temperature Source Pulse Rate 71 72 Pulse Rate [Finger] Pulse Rate from SpO2 Sensor Pulse Rhythm Pulse Strength Respiratory Rate 15 18 Respiratory Effort / Characteristics Respiratory Depth Respiratory Pattern Blood Pressure Blood Pressure [Left Arm] Blood Pressure Mean Blood Pressure Mean [Left Arm] Blood Pressure Position Pulse Oximetry 97 Oxygen Delivery Method Room Air Sepsis Recent Fever Within 48 Hours Sepsis Action Taken by Nursing 11/18/19 22:31 11/18/19 23:01 11/18/19 23:31 Temperature Temperature Source Pulse Rate 74 68 67 Pulse Rate [Finger] Pulse Rate from SpO2 Sensor 68 Pulse Rhythm Pulse Strength Respiratory Rate 19 17 15 Respiratory Effort / Characteristics Respiratory Depth Respiratory Pattern Blood Pressure 231/86 H 241/92 H 242/101 H Blood Pressure [Left Arm] Blood Pressure Mean 105 123 162 Blood Pressure Mean [Left Arm] Blood Pressure Position Pulse Oximetry 96 Oxygen Delivery Method Sepsis Recent Fever Within 48 Hours Sepsis Action Taken by Nursing 11/19/19 00:21 Temperature Temperature Source Pulse Rate 68 Pulse Rate [Finger] Pulse Rate from SpO2 Sensor 68 Pulse Rhythm Pulse Strength Respiratory Rate 13 Respiratory Effort / Characteristics Respiratory Depth Respiratory Pattern Blood Pressure 193/104 H Blood Pressure [Left Arm] Blood Pressure Mean 134 Blood Pressure Mean [Left Arm] Blood Pressure Position Pulse Oximetry 95 Oxygen Delivery Method Sepsis Recent Fever Within 48 Hours Sepsis Action Taken by Nursing GENERAL: Awake, alert, well-appearing, in no distress. BMI: 37.9. HENT: Normocephalic, atraumatic. Oropharynx unremarkable. EYES: Normal conjunctiva. Sclera non-icteric. NECK: Supple. No nuchal rigidity. FROM. No JVD. RESPIRATORY: Clear to auscultation bilaterally. CARDIAC: Regular rate, normal rhythm. Extremities warm and well perfused. Pulses equal. ABDOMEN: Soft, non-distended. No tenderness to palpation. No rebound or guarding. No masses. RECTAL: Deferred. MUSCULOSKELETAL: Chest examination reveals no tenderness. The back is symmetrical on inspection without obvious abnormality. There is no CVA tenderness to palpation. No joint edema. LOWER EXTREMITIES: Calves are equal size bilaterally and non-tender. Scant edema. No discoloration. NEURO: Normal sensorium. No sensory or motor deficits noted. SKIN: No rash or jaundice noted. Course Course 2231: The patient was evaluated in room B4. A complete history and physical exam was performed. 0017: Upon reevaluation, the patient is stable. I discussed the findings and the treatment plan with the patient. She expresses agreement and understanding. [facility] The patient will be evaluated for further management. Consultations Consultation #1: I [facility] the [facility] He will evaluate the patient for further management. Time: 00:17 Administered Medications Furosemide (Lasix) 80 mg IV NOW STA Stop: 11/18/19 23:54 Last Admin: 11/19/19 00:19 Dose: 80 mg Documented by: [id number] Labetalol HCl (Normodyne) 10 mg IV NOW STA Stop: 11/19/19 00:25 Last Admin: 11/19/19 00:40 Dose: 10 mg Documented by: [id number] Cosigned by: [id number] Medical Decision Making Differential Diagnosis Differential diagnosis: Etiologies such as shingles, musculoskeletal pain, pericarditis, myocarditis, cardiac ischemia, pericardial tamponade, pneumonia, pneumothorax, pleural effusion, hemothorax, pleurisy, aortic pathology, pulmonary embolism, intra- abdominal process, as well as others were considered. Medical Records Attestation: I reviewed the patient's medical records. Home Medications Current Medication List: was personally reviewed by me Laboratory Data Attestation: I reviewed the patient's lab results. Result diagrams: 11/18/19 22:12 11/18/19 22:12 Lab Results 11/18/19 11/18/19 11/18/19 Range/Units 22:12 22:12 22:12 WBC 8.84 (4.8-10.8) K/uL RBC 4.35 (4.2-5.4) M/uL Hgb 12.9 (12.0-16.0) g/dL Hct 38.8 (37-47) % MCV 89.2 (80-100) fL MCH 29.7 (25-34) pg MCHC 33.2 (32-36) g/dL RDW Std Deviation 42.8 (36.4-46.3) fL RDW Coeff of Noemy 13.1 (11.5-14.5) % Plt Count 311 (130-400) K/uL MPV 9.2 (7.4-10.4) fL Immature Gran % (Auto) 0.3 % Neut % (Auto) 58.5 % Lymph % (Auto) 27.6 % [place] % (Auto) 10.7 % Eos % (Auto) 2.7 % Baso % (Auto) 0.2 % Immature Gran # (Auto) 0.03 H (0.00-0.02) K/uL Neut # (Auto) 5.16 (1.4-6.5) K/uL Lymph # (Auto) 2.44 (1.2-3.4) K/uL [place] # (Auto) 0.95 H (0.11-0.59) K/uL Eos # (Auto) 0.24 (0-0.5) K/uL Baso # (Auto) 0.02 (0-0.2) K/uL PT 10.0 (9.0-12.0) Seconds INR 1.0 (0.9-1.1) Sodium 138 (136-145) mmol/L Potassium 3.8 (3.5-5.1) mmol/L Chloride 104 (98-107) mmol/L Carbon Dioxide 29 (21-32) mmol/L Anion Gap 5.0 (3-11) BUN 39 H (7-18) mg/dl Creatinine 1.81 H (0.6-1.2) mg/dl Est Cr Clr Drug Dosing 28.0 ml/min Est GFR ( Amer) 29.0 Est GFR (Non-Af Amer) 25.1 BUN/Creatinine Ratio 21.3 H (10-20) Glucose 141 H (70-99) mg/dl POC Glucose (70-99) mg/dl Calcium 9.9 (8.5-10.1) mg/dl Phosphorus 2.7 (2.5-4.9) mg/dl Magnesium 2.3 (1.8-2.4) mg/dl Total Bilirubin 0.8 (0.2-1) mg/dl AST 14 L (15-37) U/L ALT 20 (12-78) U/L Alkaline Phosphatase 65 (45-117) U/L Troponin I < 0.015 (0-0.045) ng/ml NT-Pro-B Natriuret Pep 766 (0-1800) pg/ml Total Protein 7.2 (6.4-8.2) gm/dl Albumin 3.9 (3.4-5.0) gm/dl Globulin 3.3 (2.5-4.0) gm/dl Albumin/Globulin Ratio 1.2 (0.9-2) Lipase 186 (73-393) U/L TSH 1.920 (0.300-4.500) uIu/ml Urine Color Urine Appearance (Clear) Urine pH (4.5-7.5) Ur Specific [place] (1.000-1.030) Urine Protein (Negative) Urine Glucose (UA) (Negative) Urine Ketones (Negative) Urine Blood (Negative) Urine Nitrite (Negative) Urine Bilirubin (Negative) Urine Urobilinogen (Negative) Ur Leukocyte Esterase (Negative) Urine WBC (Auto) (0-5) /hpf Urine RBC (Auto) (0-4) /hpf U Hyaline Cast (Auto) (0-5) /lpf U Epithel Cells (Auto) (0-5) /lpf Urine Bacteria (Auto) (Negative) 11/18/19 11/19/19 Range/Units 22:45 01:01 WBC (4.8-10.8) K/uL RBC (4.2-5.4) M/uL Hgb (12.0-16.0) g/dL Hct (37-47) % MCV (80-100) fL MCH (25-34) pg MCHC (32-36) g/dL RDW Std Deviation (36.4-46.3) fL RDW Coeff of Noemy (11.5-14.5) % Plt Count (130-400) K/uL MPV (7.4-10.4) fL Immature Gran % (Auto) % Neut % (Auto) % Lymph % (Auto) % [place] % (Auto) % Eos % (Auto) % Baso % (Auto) % Immature Gran # (Auto) (0.00-0.02) K/uL Neut # (Auto) (1.4-6.5) K/uL Lymph # (Auto) (1.2-3.4) K/uL [place] # (Auto) (0.11-0.59) K/uL Eos # (Auto) (0-0.5) K/uL Baso # (Auto) (0-0.2) K/uL PT (9.0-12.0) Seconds INR (0.9-1.1) Sodium (136-145) mmol/L Potassium (3.5-5.1) mmol/L Chloride (98-107) mmol/L Carbon Dioxide (21-32) mmol/L Anion Gap (3-11) BUN (7-18) mg/dl Creatinine (0.6-1.2) mg/dl Est Cr Clr Drug Dosing ml/min Est GFR ( Amer) Est GFR (Non-Af Amer) BUN/Creatinine Ratio (10-20) Glucose (70-99) mg/dl POC Glucose 146 H (70-99) mg/dl Calcium (8.5-10.1) mg/dl Phosphorus (2.5-4.9) mg/dl Magnesium (1.8-2.4) mg/dl Total Bilirubin (0.2-1) mg/dl AST (15-37) U/L ALT (12-78) U/L Alkaline Phosphatase (45-117) U/L Troponin I (0-0.045) ng/ml NT-Pro-B Natriuret Pep (0-1800) pg/ml Total Protein (6.4-8.2) gm/dl Albumin (3.4-5.0) gm/dl Globulin (2.5-4.0) gm/dl Albumin/Globulin Ratio (0.9-2) Lipase (73-393) U/L TSH (0.300-4.500) uIu/ml Urine Color Yellow Urine Appearance Clear (Clear) Urine pH 7.0 (4.5-7.5) Ur Specific [place] 1.008 (1.000-1.030) Urine Protein 1+ H (Negative) Urine Glucose (UA) Negative (Negative) Urine Ketones Negative (Negative) Urine Blood Negative (Negative) Urine Nitrite Negative (Negative) Urine Bilirubin Negative (Negative) Urine Urobilinogen Negative (Negative) Ur Leukocyte Esterase Negative (Negative) Urine WBC (Auto) 0 (0-5) /hpf Urine RBC (Auto) 0-4 (0-4) /hpf U Hyaline Cast (Auto) 1-5 (0-5) /lpf U Epithel Cells (Auto) 5-10 H (0-5) /lpf Urine Bacteria (Auto) Negative (Negative) Imaging Data Radiologist's Impression: Radiology results as stated below per my review and the radiologist's interpretation: XR chest 1V portable FINDINGS: Mild cardiac enlargement. Prominent pulmonary vasculature. Diaphragms are smooth. IMPRESSION: Developing congestive heart failure ACT 112: Negative or not required by law. The above report was generated using voice recognition software. It may contain grammatical, syntax or spelling errors. Electronically signed by: Kaushal Marti M.D. 11/18/2019 10:32 PM ECG Data Attestation: I personally reviewed and interpreted this ECG as follows: Indication: + chest pain Rate (beats per minute): 81 Rhythm: + sinus rhythm (with fusion complexes) ECG Intervals/blocks: + Left bundle branch block Additional Comments: QTC 497, QRS, 174, no overt acute ischemia. Blood Pressure Blood Pressure Findings: Elevated blood pressure Blood Pressure Disposition: further management by hospitalist MDM Narrative The patient is a pleasant 84-year-old woman with a past medical history of hypertension, A. 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 The patient reports she was not feeling any symptoms today but did check her blood pressure which she does routinely this evening and noticed it was in the 200s over 90s. After this the patient did report feeling intermittent brief "twinges "lasting less than a second every hour or so. She denies any shortness of breath. However the patient is in no acute distress, afebrile with blood pressure 220s/90s and vital signs otherwise stable. She has a normal oxygen saturation on room air. On exam the patient has scant lower extremity edema. Otherwise exam is unremarkable. EKG demonstrates left bundle branch block without overt acute ischemia.(No Sgarbossa criteria). Left bundle branch block does appear to be new from prior EKG in December/2018. However the patient has no active chest pain to suggest ACS at this time. Chest x-ray with mild venous congestion. BBC, H/H and platelets within normal limits. Chemistry without acidosis. Creatinine 1.8 within prior range of values. Troponin negative/undetectable. BNP within normal limits. TSH within normal limits. UA without evidence of infection. Did review the patient's results with the patient and daughter at bedside. Patient's blood pressure elevation could be related to a component of increased volume and therefore she was ordered for dose of IV Lasix. However given her additional symptoms we did agree to proceed with admission. Patient was given dose of IV labetalol for additional blood pressure control. Impression & Plan Hypertensive urgency, Volume overload, Left bundle branch block, CKD (chronic kidney disease) Discharge Plan Visit Data Chief Complaint: Hypertension Stated Complaint: HIGH BLOOD PRESSURE ED Provider: Otoniel Medley Discharge Problem: Hypertensive urgency, Volume overload, Left bundle branch block, CKD (chronic kidney disease) Patient Disposition: Being Evaluated by Hospitalist Forms Stand Alone Forms: [employer] [facility] [employer] Prescriptions Prescriptions: No Action (DME) Oxygen Home Liters Per Minute See Dose Instructions .ROUTE .MEDSUPPLY Qty: 1 RF: 0 amlodipine 2.5 mg tablet 2.5 mg PO HS RF: 0 aspirin 81 mg Tablet,Delayed Release (Dr/Ec) 81 mg PO QAM RF: 0 lisinopril 40 mg tablet 40 mg PO QAM RF: 0 furosemide 40 mg tablet 80 mg PO BID RF: 0 insulin aspart U-100 [Novolog U-100 Insulin aspart] 100 unit/mL solution 0 unit subcut AC RF: 0 isosorbide dinitrate 20 mg tablet 20 mg PO TID RF: 0 rosuvastatin 10 mg tablet 10 mg PO QPM RF: 0 carvedilol 12.5 mg tablet 18.75 mg PO BID RF: 0 ergocalciferol (vitamin D2) 50,000 unit Capsule 50,000 unit PO WK RF: 0 acetaminophen [Tylenol Extra Strength] 500 mg Tablet 1,000 mg PO AMHS RF: 0 Humulin 70/30 U-100 Insulin 100 unit/mL (70-30) suspension 75 units subcut QAM RF: 0 Humulin 70/30 U-100 Insulin 100 unit/mL (70-30) suspension 55 units subcut QPM RF: 0 famotidine [Pepcid] 20 mg Tablet 20 mg PO DAILY RF: 0 docusate sodium [Colace] 100 mg Capsule 200 mg PO HS RF: 0 Referrals Referrals: Fox Ramirez MD [Primary Care Provider] - Discharge Problem: Volume overload Qualifiers: Hypervolemia type: unspecified Qualified Code(s): E87.70 - Fluid overload, unspecified The scribe's documentation has been prepared under my direction and personally reviewed by me in its entirety. I confirm that the note above accurately reflects all work, treatment, procedures, and medical decision making performed by me.
[2019-11-19] MEDS ORDERED: ACETAMINOPHEN 325 MG TAB PO PRN (03:01)
[2019-11-19] MEDS ORDERED: NITROGLYCERIN SL 0.4 MG/TAB TAB SL PRN (03:01)
[2019-11-19] MEDS ORDERED: LABETALOL HCL IV 5 MG/ML 20ML IV PRN (03:01)
[2019-11-19] MEDS ORDERED: POLYETHYLENE (MIRALAX) 17 GM PACK PO PRN (03:01)
[2019-11-19] MEDS ORDERED: ONDANSETRON INJ 2 MG/ML 2 ML VIAL IV PRN (03:01)
[2019-11-19] MEDS ORDERED: HydrALAZINE 10 MG TAB PO SCH (03:45)
[2019-11-19 05:59] LABS: Basophils # (auto) 0.02 K/uL (0-0.2); Basophils % (auto) 0.2 %; Eosinophils # (auto) 0.26 K/uL (0-0.5); Eosinophils % (auto) 2.9 %; Hematocrit (blood only) 37.2 % (37-47); Hemoglobin 12.4 g/dL (12.0-16.0); Immature Granulocytes # (auto) 0.02 K/uL (0.00-0.02); Immature Granulocytes % (auto) 0.2 %; Lymphocytes % (auto) 24.6 %; Mean Corpuscular Hemoglobin 29.9 pg (25-34); Mean Corpuscular Hgb Conc 33.3 g/dL (32-36); Mean Corpuscular Volume 89.6 fL (80-100); Mean Platelet Volume 9.2 fL (7.4-10.4); Monocytes # (auto) 0.87 K/uL (0.11-0.59); Monocytes % (auto) 9.7 %; Neutrophils # (auto) 5.56 K/uL (1.4-6.5); Neutrophils % (auto) 62.4 %; Platelet Count 309 K/uL (130-400); RDW Coefficient of Variation 13.2 % (11.5-14.5); RDW Standard Deviation 42.9 fL (36.4-46.3); Red Blood Count 4.15 M/uL (4.2-5.4); White Blood Count 8.93 K/uL (4.8-10.8)
[2019-11-19] MEDS: INSULIN ASPART 100 UNITS/ML 3 ML PEN SC SCH ×3 (06:18→17:44)
[2019-11-19 06:32] LABS: Estimated Average Glucose 174 mg/dl; Hemoglobin A1C 7.7 % (4.5-5.6)
[2019-11-19 06:35] LABS: BUN Creatinine Ratio 20.4 (10-20); Calcium 9.7 mg/dl (8.5-10.1); Creatinine Clr Calc Pharmacy 27.9 ml/min; Est GFR (Non-African American) 25.1; Magnesium 2.3 mg/dl (1.8-2.4); Potassium 3.8 mmol/L (3.5-5.1)
[2019-11-19] MEDS: ISOSORBIDE DINITRATE 20 MG TAB PO SCH ×3 (06:35→17:47)
--- NOTE | 2019-11-19 07:04 | History and Physical Report ---
DATE OF ADMISSION: 11/19/2019 CHIEF COMPLAINT: Hypertensive urgency and chest pain. HISTORY OF PRESENT ILLNESS: This 84-year-old female with past medical history significant for type 2 diabetes, history of hypothyroidism, hyperlipidemia, chronic rhinitis, chronic kidney disease stage IV, mitral valve insufficiency, diastolic CHF, hypertension, obesity, nocturnal hypoxia, osteoporosis, lumbar degenerative disc disease, presents with elevated blood pressure and chest pain. The patient states her blood pressure running high. Seen by cardiology on 10/31/2019 and her isosorbide was increased to 3 times per day and if it is still elevated, there is plan to add hydralazine versus low-dose terazosin. The patient says her blood pressure later running in the 160s to 170s, but today when she checked it was in 200s, then she developed panic kind of feeling and also some chest discomfort on and off, no radiation, she says something not feeling right and was feeling a little dizzy. She has had some headaches that she thinks it is because of increased dose of isosorbide. She came to the ER and initially her blood pressure was in the 200s, after given labetalol, it has come down. Denies any shortness of breath, no cough, no fever, no chills, no nausea, no vomiting. In the afternoon, she is having some blurry visions, no earache, no runny nose, no sore throat, no dysphagia, no odynophagia, no abdominal pain. Normal bowel and bladder movements. No blood in the stools or black stools. No burning micturitions, no hematuria. No rash. Walks with a walker and cane at home. Lives with her son. Appetite is okay. Sometimes she gets up in the night with soaking sweats. She uses oxygen while sleeping. ALLERGIES: MORPHINE, PHENYLPROPANOLAMINE. PAST MEDICAL HISTORY: As mentioned above. PAST SURGICAL HISTORY: Knee arthroplasty, lumbar spine steroid shot, tubal ligation, appendectomy, cholecystectomy, total hysterectomy. MEDICATIONS: The patient is on isosorbide dinitrate 20 mg t.i.d., lidocaine apply to the back as needed, amlodipine 2.5 mg p.o. daily, Lasix 80 mg b.i.d., vitamin D 50,000 units capsule once a week, insulin 70/30, 75 units in a.m. and 55 units in p.m.; Zofran 8 mg p.o. t.i.d. p.r.n., Crestor 10 mg p.o. at bedtime, Senokot-S p.r.n., Coreg 12.5 mg 1.5 tablets b.i.d., Tylenol 500 mg p.o. q.6 hours p.r.n., oxygen 2 liters at bedtime, lisinopril 40 mg p.o. daily, aspirin 81 mg p.o. daily. FAMILY HISTORY: Significant for brother had throat cancer. Father had laryngeal cancer. Sister has lung cancer. Mother has stroke. SOCIAL HISTORY: , lives with her son. No smoking, no alcohol, no drug use. REVIEW OF SYMPTOMS: As per HPI. Rest of review of systems negative. PHYSICAL EXAMINATION: GENERAL: The patient is obese, not in acute distress. VITAL SIGNS: Temperature 36.5, pulse 74, respiratory rate 20, blood pressure 221/86, oxygen 95% room air. HEENT: No pallor, no icterus. Pupils equal, round, reactive to light. NECK: No JVD, no neck masses, no carotid bruits. CARDIOVASCULAR: S1, S2 heard, regular rate and rhythm, no murmur, no gallop. RESPIRATORY SYSTEM: Normal AP diameter. No accessory muscle use. No wheezing. Mild bibasilar crackles. ABDOMEN: Soft, bowel sounds present, nontender, nondistended. CENTRAL NERVOUS SYSTEM: Cranial nerves II-XII grossly intact. Nonfocal. EXTREMITIES: Mild pedal edema, no erythema seen. LABORATORIES DATA: WBC 8.8, hemoglobin 12.9, hematocrit 38.8, platelets 311. PT 10, INR 1. Sodium 138, potassium 3.8, chloride 104, bicarbonate 29, BUN 39, creatinine 1.8, serum glucose 141, calcium 9.9, phosphorus 2.7, magnesium 2.3, total bilirubin 0.8, AST 14, ALT 20, alkaline phosphatase 65. Troponin I less than 0.015. BNP 766, lipase 186. TSH is 1.9. Urinalysis negative. Chest x-ray, mild pulmonary congestion. EKG: Sinus rhythm with fusion complexes with rate of 81. New left bundle branch block now present. ASSESSMENT AND PLAN: This is a 84-year-old female who presents with hypertensive urgency. 1. Hypertensive urgency. This is going on for some time, recently isosorbide dinitrate tablet was increased to 3 times daily by Cardiology on 10/31/2019, plan to add hydralazine or low-dose terazosin. The patient at home is on lisinopril, amlodipine, Coreg and Lasix, received a dose of IV labetalol in the ER. We will start hydralazine p.o. 10 mg qid with first dose now and place on IV labetalol p.r.n. and monitor closely in the med/surg tele and consult cardiology in a.m. for further adjustment of medications and monitor the blood pressure. 2. Mild acute on chronic diastolic congestive heart failure. The patient is on lisinopril, Coreg and Lasix 80 mg b.i.d. at home, received IV Lasix 80 in the ER. We will continue with IV Lasix 40 b.i.d. Await cardiac input and monitor the response, daily weights, I's and O's. 3. New left bundle branch block. The patient says she is feeling panic and she has had some on and off chest discomfort. Seems symptoms started When her BP was high. Initial troponin is negative. We will follow serial cardiac enzymes, echocardiogram and consult cardiology for further recommendations. If patient develop worsening chest pain, will call cardiology. 4. Chronic kidney disease stage IV, presented with creatinine 1.8, which is baseline. We will follow the labs while patient is getting IV diuretics. 5. Nocturnal hypoxia, using oxygen at nighttime. 6. Diabetes. Currently, patient is n.p.o. until seen by cardiology. The patient takes insulin NPH regular 70/30 mix, 75 units in a.m. and 55 units in p.m. and also short-acting NovoLog. While in the hospital, we placed her on Lantus 15 units b.i.d., as patient is currently n.p.o. and insulin sliding scale. Follow the blood sugars, follow HbA1c levels. 7. Hyperlipidemia. Continue statin. 8. Deep venous thrombosis prophylaxis, sequential compression devices for now. 9. Disposition: Admit to med/surg tele. Level 1 full code after my discussion with the patient. PT and OT prior to discharge. Social Service to help with discharge planning. GONZALOD
--- NOTE | 2019-11-19 08:42 | XCELERA ---
[id number] \\[email or web address]\[id number]_[id number]
[2019-11-19] MEDS ORDERED: FUROSEMIDE 40 MG/4 ML VIAL IV SCH (09:00)
[2019-11-19] MEDS: carvediloL 12.5 MG TAB PO SCH ×2 (09:29→20:40)
[2019-11-19] MEDS: ACETAMINOPHEN 500 MG TAB PO SCH ×2 (09:30→20:40)
[2019-11-19] MEDS: FAMOTIDINE 20 MG TAB PO SCH (09:30)
[2019-11-19] MEDS: ASPIRIN 81 MG ECTAB PO SCH (09:30)
[2019-11-19] MEDS: lisinopriL 40 MG TAB PO SCH (09:31)
[2019-11-19] MEDS: INSULIN GLARGINE SOLOSTAR 100 UNITS/ML 3 ML PEN SC SCH ×2 (09:33→20:42)
[2019-11-19] MEDS: FUROSEMIDE 40 MG in SYRINGE 0 ML IV SCH ×2 (09:37→17:48)
--- NOTE | 2019-11-19 10:12 | Hospitalist Progress Note ---
Date of Service November 19, 2019 Assessment & Plan (1) Hypertensive urgency: Hypertensive urgency: Presented with systolic blood pressure more than 200, Acid with chest tightness Patient started on p.o. hydralazine, appreciate input from cardiology Patient is already on amlodipine Coreg and Isordil which has been continued Given symptoms of chest discomfort associated with hypertensive urgency, patient will benefit with Lexiscan nuclear cardiac stress test tomorrow N.p.o. past midnight ordered by cardiology Patient is very worried about stress test, counseling provided, nuclear stress test is a noninvasive way of to assess whether patient had any blockage in blood supply to her heart, and whether she will need intervention/stent Appears to be very anxious We will order low-dose PRN Ativan for anxiety CKD stage IV: Monitor renal function, follows with physician group nephrology to control Left bundle branch block: in the setting of hypertensive urgency Input from cardiology, plan for cardiac ischemic work-up Nuclear stress test in a.m. Subjective no complain of chest pain, shortness of breath, No dyspnea on exertion Worried about nuclear stress test tomorrow Review of Systems Review of Systems: All systems reviewed & are unremarkable except as noted in HPI & below Cardiovascular: no chest pain, no chest pain at rest, no dyspnea and no orthopnea Physical Exam Physical Exam: GENERAL: No sign of distress, HEENT: Sclera nonicteric, pink-purple bilateral equal reactive to light extraocular muscle intact Normal oral mucosa, neck: No JVD, no thyromegaly, trachea midline Lungs: Clear to auscultate, no wheeze or rales Cardiovascular: Regular S1 and S2, no murmur or gallop, no JVD, no lower extremity edema Abdomen: Soft, nontender, bowel sounds active, no hepatosplenomegaly Extremities: No rash or deformity, normal joint, Neuro: No focal neurological deficit, no dysarthria, no facial droop Psych: Alert awake oriented x3: Euthymic Skin: No rash LYMPH NODES: No cervical lymphadenopathy Results & Data Vital Signs (Past 12 Hours) Vital Signs Temp Pulse Pulse Resp BP BP Pulse Ox 11/19/19 07:13 36.8 C 75 18 147/84 H 90 11/19/19 06:06 184/75 H 11/19/19 05:10 82 11/19/19 03:14 36.5 C 71 18 216/95 H 93 11/19/19 02:02 69 17 156/87 H 96 11/19/19 02:01 74 20 221/86 H 95 11/19/19 01:30 70 20 160/65 H 95 11/19/19 01:03 74 16 182/72 H 95 11/19/19 00:30 71 17 187/84 H 95 11/19/19 00:21 68 13 193/104 H 95 11/18/19 23:31 67 15 242/101 H 96 11/18/19 23:01 68 17 241/92 H 11/18/19 22:31 74 19 231/86 H 11/18/19 22:30 72 18 11/18/19 22:18 97 11/18/19 22:16 71 15 11/18/19 22:13 71 18 269/100 H 97
--- NOTE | 2019-11-19 11:19 | Cardiology Consultation ---
Date of Consultation November 19, 2019 Assessment & Plan (1) Hypertensive urgency: BP was significantly elevated upon presentation, however, I do believe there is a significant anxiety component to it. Her blood pressure has been trending upwards as an outpatient so at this time we will start her on hydralazine 25 mg p.o. 3 times daily on top of her current outpatient doses of amlodipine, carvedilol, Isordil and lisinopril. Given the fact that she did have chest discomfort and a new left bundle branch block we will proceed with an ischemic work-up during this admission including a Lexiscan nuclear stress test. She will be made n.p.o. after midnight. Obviously will keep a close eye on her blood pressure and adjust hydralazine dose as necessary. She is not having current pain, so there is no indication for emergent cardiac catheterization. Should she develop any significant chest pain is unresolved with medical therapy then emergent cardiac catheterization may be necessary. (2) Volume overload: Does not examine significant volume overload at this time. We will follow volume status clinically (3) Chronic kidney disease (CKD), stage IV (severe): (4) Nocturnal hypoxemia: Continue nocturnal O2 Consideration can be given to repeat outpatient sleep study given high likelihood of obstructive sleep apnea. (5) Left bundle branch block: New finding, in the setting of hypertensive urgency and chest discomfort that has hence resolved. We will complete an ischemic work-up with a Lexiscan nuclear stress test. History of Present Illness Reason for Consultation: Hypertensive urgency Requesting Physician: Dr. Taylor Attending Physician: Karen Matute MD History of Present Illness It was my pleasure to see Mrs. Rollins in consultation today November 19, 2019. She is a very pleasant 84-year-old woman who follows closely with Kaushal Nieto of our cardiology practice for history of hypertensive heart disease. She is been following her blood pressure closely at home since her most recent outpatient follow-up and is noticed that the numbers have been rising. On the evening of the she noticed that her blood pressure got to be 200 systolic and she became very concerned. She states that she started to panic and developed chest pain. She described as a substernal achy sensation that was constant. She denied any associated symptoms of shortness of breath, diaphoresis, nausea, lightheadedness, dizziness or syncope. She is brought in the emergency room her BP was confirmed to be 200 systolic and she was given a dose of labetalol with good response. Overnight she states that she is feels tired and worn out but likely the chest pain has resolved. Problem list as per Kaushal Gerson's most recent outpatient visit: 1. Hypertension, hypertensive heart disease 2. Diastolic heart failure 3. Preserved LV systolic function 4. Angiographically normal coronaries by April 1999 cardiac catheterization 5. Palpitations - premature atrial/ventricular beats. 6. Type II diabetes mellitus 7. Stage IV chronic kidney disease, followed by Dr. Childress 8. Nocturnal hypoxemia, treated with supplemental oxygen therapy at 2 lite rs/minute via nasal cannula through Dr. Armstrong 9. Dyslipidemia 10. GERD. Reflux. History of hiatal hernia. 11. Anxiety. Allergies Allergy/AdvReac Type Severity Reaction Status Date / Time morphine Allergy Intermediate confusion Verified 11/18/19 23:58 phenylpropanolamine AdvReac Unknown Unknown Verified 11/18/19 23:58 Home Medications Home Medications Medication Instructions Recorded Confirmed Type acetaminophen [Tylenol Extra 1,000 mg PO AMHS 12/30/18 11/18/19 History Strength] amlodipine 2.5 mg PO HS 12/30/18 11/18/19 History aspirin 81 mg PO QAM 12/30/18 11/18/19 History carvedilol 18.75 mg PO BID 12/30/18 11/18/19 History ergocalciferol (vitamin D2) 50,000 unit PO WK 12/30/18 11/18/19 History furosemide 80 mg PO BID 12/30/18 11/18/19 History insulin aspart U-100 [Novolog 0 unit SUBCUT AC 12/30/18 11/18/19 History U-100 Insulin aspart] isosorbide dinitrate 20 mg PO TID 12/30/18 11/18/19 History lisinopril 40 mg PO QAM 12/30/18 11/18/19 History rosuvastatin 10 mg PO QPM 12/30/18 11/18/19 History Oxygen Home #1 ea 05/31/19 10/21/19 Rx insulin human U-100 NPH-regulr 55 units SUBCUT QPM ml 10/21/19 11/18/19 History 70-30 mix 100 unit/mL subcutaneous susp insulin human U-100 NPH-regulr 75 units SUBCUT QAM ml 10/21/19 11/18/19 History 70-30 mix 100 unit/mL subcutaneous susp docusate sodium [Colace] 200 mg PO HS 11/18/19 11/18/19 History famotidine [Pepcid] 20 mg PO DAILY 11/18/19 11/18/19 History Patient History Medical History Atrial fibrillation (Chronic) CHF (congestive heart failure) (Chronic) Chronic kidney disease (CKD), stage IV (severe) (Chronic) HTN (hypertension) (Chronic) Surgical History H/O: hysterectomy (Resolved) Hx of appendectomy (Resolved) Hx of cholecystectomy (Resolved) Family History Other No significant family history Social History Preferred Language: B[place]ian Communication Ability: Effective Open [employer] Helper Required: No Beliefs That Will Affect Care: None Current Living Situation: Family Current Living Situation Comment: son lives with pt Other Information That Helps Us Care for You: No Feels Safe at Home: Yes Safety Concerns: Feels Safe At This Time Smoking Status: Never smoker Do You Dip or Chew Tobacco: No ; Second Hand Exposure: No ; Tobacco Cessation Education Requested by Patient: No Hx Alcohol Use: No Hx Substance Use: No Review of Systems Review of Systems: All systems reviewed & are unremarkable except as noted in HPI & below Physical Exam Physical Exam: General: Awake, alert and oriented x 3. No acute distress. HEENT: Normocephalic, atraumatic. Pupils equal, round and reactive to light and accommodation. Extraocular muscles are intact. Anicteric sclera. Moist mucous membranes. Neck: No JVD. No bruit. Cardiovascular: Regular. Positive S-4. Normal S-1 and S-2. No S-3. No murmurs or rubs. Pulmonary: Clear to auscultation B/L. No rales, rhonchi or wheezing Abdomen: Bowel sounds x 4, soft. No rebound, guarding or tenderness. No organomegaly. Extremities: No clubbing, cyanosis or edema. +2 pedal pulses bilaterally. Skin: Warm and dry. Results & Data Vital Signs (Past 12 Hours) Vital Signs Temp Pulse Pulse Resp BP BP Pulse Ox 11/19/19 07:13 36.8 C 75 18 147/84 H 90 11/19/19 06:06 184/75 H 11/19/19 05:10 82 11/19/19 03:14 36.5 C 71 18 216/95 H 93 11/19/19 02:02 69 17 156/87 H 96 11/19/19 02:01 74 20 221/86 H 95 11/19/19 01:30 70 20 160/65 H 95 11/19/19 01:03 74 16 182/72 H 95 11/19/19 00:30 71 17 187/84 H 95 11/19/19 00:21 68 13 193/104 H 95 11/18/19 23:31 67 15 242/101 H 96 Laboratory Results Laboratory Results - last 24 hr 11/18/19 11/18/19 11/18/19 22:12 22:12 22:12 WBC 8.84 RBC 4.35 Hgb 12.9 Hct 38.8 MCV 89.2 MCH 29.7 MCHC 33.2 RDW Std Deviation 42.8 RDW Coeff of Noemy 13.1 Plt Count 311 MPV 9.2 Immature Gran % (Auto) 0.3 Neut % (Auto) 58.5 Lymph % (Auto) 27.6 [place] % (Auto) 10.7 Eos % (Auto) 2.7 Baso % (Auto) 0.2 Immature Gran # (Auto) 0.03 H Neut # (Auto) 5.16 Lymph # (Auto) 2.44 [place] # (Auto) 0.95 H Eos # (Auto) 0.24 Baso # (Auto) 0.02 PT 10.0 INR 1.0 Sodium 138 Potassium 3.8 Chloride 104 Carbon Dioxide 29 Anion Gap 5.0 BUN 39 H Creatinine 1.81 H Est Cr Clr Drug Dosing 28.0 Est GFR ( Amer) 29.0 Est GFR (Non-Af Amer) 25.1 BUN/Creatinine Ratio 21.3 H Glucose 141 H POC Glucose Estimat Average Glucose Hemoglobin A1c Calcium 9.9 Phosphorus 2.7 Magnesium 2.3 Total Bilirubin 0.8 AST 14 L ALT 20 Alkaline Phosphatase 65 Troponin I < 0.015 NT-Pro-B Natriuret Pep 766 Total Protein 7.2 Albumin 3.9 Globulin 3.3 Albumin/Globulin Ratio 1.2 Lipase 186 TSH 1.920 Urine Color Urine Appearance Urine pH Ur Specific [place] Urine Protein Urine Glucose (UA) Urine Ketones Urine Blood Urine Nitrite Urine Bilirubin Urine Urobilinogen Ur Leukocyte Esterase Urine WBC (Auto) Urine RBC (Auto) U Hyaline Cast (Auto) U Epithel Cells (Auto) Urine Bacteria (Auto) 11/18/19 11/19/19 11/19/19 22:45 01:01 05:44 WBC 8.93 RBC 4.15 L Hgb 12.4 Hct 37.2 MCV 89.6 MCH 29.9 MCHC 33.3 RDW Std Deviation 42.9 RDW Coeff of Noemy 13.2 Plt Count 309 MPV 9.2 Immature Gran % (Auto) 0.2 Neut % (Auto) 62.4 Lymph % (Auto) 24.6 [place] % (Auto) 9.7 Eos % (Auto) 2.9 Baso % (Auto) 0.2 Immature Gran # (Auto) 0.02 Neut # (Auto) 5.56 Lymph # (Auto) 2.20 [place] # (Auto) 0.87 H Eos # (Auto) 0.26 Baso # (Auto) 0.02 PT INR Sodium Potassium Chloride Carbon Dioxide Anion Gap BUN Creatinine Est Cr Clr Drug Dosing Est GFR ( Amer) Est GFR (Non-Af Amer) BUN/Creatinine Ratio Glucose POC Glucose 146 H Estimat Average Glucose Hemoglobin A1c Calcium Phosphorus Magnesium Total Bilirubin AST ALT Alkaline Phosphatase Troponin I NT-Pro-B Natriuret Pep Total Protein Albumin Globulin Albumin/Globulin Ratio Lipase TSH Urine Color Yellow Urine Appearance Clear Urine pH 7.0 Ur Specific [place] 1.008 Urine Protein 1+ H Urine Glucose (UA) Negative Urine Ketones Negative Urine Blood Negative Urine Nitrite Negative Urine Bilirubin Negative Urine Urobilinogen Negative Ur Leukocyte Esterase Negative Urine WBC (Auto) 0 Urine RBC (Auto) 0-4 U Hyaline Cast (Auto) 1-5 U Epithel Cells (Auto) 5-10 H Urine Bacteria (Auto) Negative 11/19/19 11/19/19 11/19/19 05:44 05:44 05:44 WBC RBC Hgb Hct MCV MCH MCHC RDW Std Deviation RDW Coeff of Noemy Plt Count MPV Immature Gran % (Auto) Neut % (Auto) Lymph % (Auto) [place] % (Auto) Eos % (Auto) Baso % (Auto) Immature Gran # (Auto) Neut # (Auto) Lymph # (Auto) [place] # (Auto) Eos # (Auto) Baso # (Auto) PT INR Sodium 140 Potassium 3.8 Chloride 105 Carbon Dioxide 30 Anion Gap 5.0 BUN 37 H Creatinine 1.81 H Est Cr Clr Drug Dosing 27.9 Est GFR ( Amer) 29.0 Est GFR (Non-Af Amer) 25.1 BUN/Creatinine Ratio 20.4 H Glucose 182 H POC Glucose Estimat Average Glucose 174 Hemoglobin A1c 7.7 H Calcium 9.7 Phosphorus Magnesium 2.3 Total Bilirubin AST ALT Alkaline Phosphatase Troponin I < 0.015 NT-Pro-B Natriuret Pep Total Protein Albumin Globulin Albumin/Globulin Ratio Lipase TSH Urine Color Urine Appearance Urine pH Ur Specific [place] Urine Protein Urine Glucose (UA) Urine Ketones Urine Blood Urine Nitrite Urine Bilirubin Urine Urobilinogen Ur Leukocyte Esterase Urine WBC (Auto) Urine RBC (Auto) U Hyaline Cast (Auto) U Epithel Cells (Auto) Urine Bacteria (Auto) 11/19/19 11/19/19 11/19/19 06:15 09:18 10:49 WBC RBC Hgb Hct MCV MCH MCHC RDW Std Deviation RDW Coeff of Noemy Plt Count MPV Immature Gran % (Auto) Neut % (Auto) Lymph % (Auto) [place] % (Auto) Eos % (Auto) Baso % (Auto) Immature Gran # (Auto) Neut # (Auto) Lymph # (Auto) [place] # (Auto) Eos # (Auto) Baso # (Auto) PT INR Sodium Potassium Chloride Carbon Dioxide Anion Gap BUN Creatinine Est Cr Clr Drug Dosing Est GFR ( Amer) Est GFR (Non-Af Amer) BUN/Creatinine Ratio Glucose POC Glucose 187 H 188 H Estimat Average Glucose Hemoglobin A1c Calcium Phosphorus Magnesium Total Bilirubin AST ALT Alkaline Phosphatase Troponin I Pending NT-Pro-B Natriuret Pep Total Protein Albumin Globulin Albumin/Globulin Ratio Lipase TSH Urine Color Urine Appearance Urine pH Ur Specific [place] Urine Protein Urine Glucose (UA) Urine Ketones Urine Blood Urine Nitrite Urine Bilirubin Urine Urobilinogen Ur Leukocyte Esterase Urine WBC (Auto) Urine RBC (Auto) U Hyaline Cast (Auto) U Epithel Cells (Auto) Urine Bacteria (Auto) Medications Administered Current Inpatient Medications Acetaminophen (Tylenol) 650 mg PO Q4H PRN PRN Reason: Pain or Fever Stop: 12/19/19 03:00 Acetaminophen (Tylenol) 1,000 mg PO BID [facility] Stop: 12/19/19 08:59 Last Admin: 11/19/19 09:30 Dose: 1,000 mg Documented by: Amlodipine Besylate (Norvasc) 2.5 mg PO HS [facility] Stop: 12/19/19 20:59 Aspirin (Ecotrin Ectab) 81 mg PO QAM [facility] Stop: 12/19/19 08:59 Last Admin: 11/19/19 09:30 Dose: 81 mg Documented by: Carvedilol (Coreg) 18.75 mg PO BID [facility] Stop: 12/19/19 08:59 Last Admin: 11/19/19 09:29 Dose: 18.75 mg Documented by: Docusate Sodium (Colace) 200 mg PO HS [facility] Stop: 12/19/19 20:59 Ergocalciferol (Vitamin D2) 50,000 units PO Sa@0900 [facility] Stop: 12/23/19 08:59 Famotidine (Pepcid) 20 mg PO DAILY [facility] Stop: 12/19/19 08:59 Last Admin: 11/19/19 09:30 Dose: 20 mg Documented by: Hydralazine HCl (Apresoline) 25 mg PO Q8 [facility] Stop: 12/19/19 08:44 Last Admin: 11/19/19 09:28 Dose: 25 mg Documented by: Furosemide 40 mg/ Syringe 4 mls @ 4 mls/min IV BID17 [facility] Stop: 12/19/19 08:59 Last Admin: 11/19/19 09:37 Dose: 4 mls/min Documented by: Insulin Aspart (Novolog Flexpen) 0 units SC Q6 [facility] Stop: 12/19/19 05:59 Last Admin: 11/19/19 06:18 Dose: 2 units Documented by: Insulin Glargine (Lantus Solostar Pen) 15 units SC BID [facility] Stop: 12/19/19 08:59 Last Admin: 11/19/19 09:33 Dose: 15 units Documented by: Isosorbide Dinitrate (Isordil) 20 mg PO TID@0700,1200,1700 [facility] Stop: 12/19/19 06:59 Last Admin: 11/19/19 06:35 Dose: 20 mg Documented by: Labetalol HCl (Normodyne) 10 mg IV Q4H PRN PRN Reason: Hypertension Stop: 12/19/19 03:00 Lisinopril (Zestril) 40 mg PO QAM [facility] Stop: 12/19/19 08:59 Last Admin: 11/19/19 09:31 Dose: 40 mg Documented by: Nitroglycerin (Nitrostat) 0.4 mg SL UD PRN PRN Reason: Chest Pain Stop: 12/19/19 03:00 Ondansetron HCl (Zofran) 4 mg IV Q6H PRN PRN Reason: Nausea Stop: 12/19/19 03:00 Last Admin: 11/19/19 09:24 Dose: 4 mg Documented by: Polyethylene Glycol (Miralax Powder Packet) 17 gm PO DAILY PRN PRN Reason: Constipation Stop: 12/19/19 03:00 Rosuvastatin Calcium (Crestor) 10 mg PO QPM [facility] Stop: 12/19/19 20:59 (1) Volume overload Hypervolemia type: unspecified Qualified Code(s): E87.70 - Fluid overload, unspecified
[2019-11-19] MEDS ORDERED: LORazepam 0.5 MG TAB PO PRN (18:54)
[2019-11-19] MEDS: ROSUVASTATIN CALCIUM 10 MG TAB PO SCH (20:40)
[2019-11-19] MEDS: DOCUSATE SODIUM 100 MG CAP PO SCH (20:40)
[2019-11-19] MEDS: AMLODIPINE BESYLATE 5 MG TAB PO SCH (20:41)
[2019-11-20] MEDS: INSULIN ASPART 100 UNITS/ML 3 ML PEN SC SCH ×4 (00:08→17:18)
[2019-11-20] MEDS: ISOSORBIDE DINITRATE 20 MG TAB PO SCH ×3 (06:25→17:18)
[2019-11-20] MEDS: FUROSEMIDE 40 MG in SYRINGE 0 ML IV SCH ×2 (08:46→16:04)
[2019-11-20] MEDS: FAMOTIDINE 20 MG TAB PO SCH (08:46)
[2019-11-20] MEDS: carvediloL 12.5 MG TAB PO SCH ×2 (08:47→20:40)
[2019-11-20] MEDS: lisinopriL 40 MG TAB PO SCH (08:47)
[2019-11-20] MEDS: ASPIRIN 81 MG ECTAB PO SCH (08:47)
[2019-11-20] MEDS: ACETAMINOPHEN 500 MG TAB PO SCH ×2 (08:48→20:39)
[2019-11-20] MEDS: INSULIN GLARGINE SOLOSTAR 100 UNITS/ML 3 ML PEN SC SCH ×2 (09:15→20:37)
[2019-11-20] MEDS ORDERED: REGADENOSON 0.4 MG/5 ML SYR IV ONE (09:48)
--- NOTE | 2019-11-20 16:45 | Myocardial Perfusion Study ---
Date of Service November 20, 2019 Myocardial Perfusion Study [facility] Myocardial Perfusion Study Report Procedure: 1. Myocardial perfusion study performed in multiple views/images 2. Lexiscan pharmacologic stress ECG Indications: 1. Chest pain in the setting of new left bundle branch block Ordering physician: Gulshan Procedural details: For the stress portion of the study, Lexiscan 0.4 mg was intravenously administered followed by a saline flush. This was followed by 32.3 mCi of te chnetium 99m Cardiolite, injected at 1140 on 11/20/19. 30 minutes following the injection, imaging of the heart was performed in multiple projections. For the rest portion of the study, 10.2 mCi technetium 99m Cardiolite was injected intravenously at 0935 on 11/20/19. 1 hour following the injection, imaging of the heart was performed in the same projections. Lexiscan stress ECG: Resting ECG demonstrated: Normal sinus rhythm with incomplete left bundle branch block Maximum heart rate: 93 bpm Maximal, age-predicted heart rate: Not applicable Resting blood pressure: 159/65 mmHg Maximum blood pressure: Unchanged mmHg Significant ST changes: None Arrhythmia: None Symptoms: Nausea and diaphoresis resolved with caffeine Findings: Rotating raw imaging demonstrated no significant lung uptake. There is no significant motion artifact. Heart size appeared normal. Myocardial perfusion demonstrated homogeneous tracer uptake throughout without deficit. Ejection fraction: >70% Wall motion: Normal wall motion at stress and rest No significant transient ischemic dilation. Impression: 1. Nonischemic Lexiscan nuclear stress test. Normal LV systolic function without regional wall motion abnormality. EF calculated to be greater than 70%
--- NOTE | 2019-11-20 16:48 | Cardiology Progress Note ---
Date of Service November 20, 2019 Assessment & Plan (1) Hypertensive urgency: BP now greatly controlled with the addition of hydralazine to her outpatient medical regimen. Would continue hydralazine 25 mg p.o. 3 times daily in addition to her outpatient medical regimen. No other changes from a cardiac standpoint at this time. (2) Volume overload: Does not examine significant volume overload at this time. (3) Chronic kidney disease (CKD), stage IV (severe): (4) Nocturnal hypoxemia: Continue nocturnal O2 Consideration can be given to repeat outpatient sleep study given high likelihood of obstructive sleep apnea. (5) Left bundle branch block: New finding, however, resolved overnight. Nonischemic Lexiscan nuclear stress test. Transient left bundle branch block without underlying ischemia, no further work- up indicated at this time. Does raise concern for possible primary conduction system disease in the future. Follow-up with PCP and cardiology as an outpatient. Signs and symptoms of arrhythmia or heart block reviewed with the patient. Okay to discharge the patient to home once she has started to feel better. Subjective Patient seen and examined during nuclear stress test and afterwards. No recurrences of chest discomfort overnight did have some difficulty tolerating Lexiscan injection but feeling well now. Denies any shortness of breath, palpitations, lightheadedness, dizziness or syncope. Telemetry reviewed: Normal sinus rhythm with resolution of left bundle branch block pattern overnight. No arrhythmias Review of Systems Review of Systems: All systems reviewed & are unremarkable except as noted in HPI & below Physical Exam Physical Exam: General: Awake, alert and oriented x 3. No acute distress. HEENT: Normocephalic, atraumatic. Pupils equal, round and reactive to light and accommodation. Extraocular muscles are intact. Anicteric sclera. Moist mucous membranes. Neck: No JVD. No bruit. Cardiovascular: Regular. Positive S-4. Normal S-1 and S-2. No S-3. No murmurs or rubs. Pulmonary: Clear to auscultation B/L. No rales, rhonchi or wheezing Abdomen: Bowel sounds x 4, soft. No rebound, guarding or tenderness. No organomegaly. Extremities: No clubbing, cyanosis or edema. +2 pedal pulses bilaterally. Skin: Warm and dry. Results & Data Vital Signs (Past 12 Hours) Vital Signs Temp Pulse Pulse Resp BP BP Pulse Ox 11/20/19 15:15 36.4 C L 78 21 116/65 95 11/20/19 09:45 63 11/20/19 07:31 36.3 C L 67 20 154/72 H 94 11/20/19 06:20 72 123/71 (1) Volume overload Hypervolemia type: unspecified Qualified Code(s): E87.70 - Fluid overload, unspecified
--- NOTE | 2019-11-20 17:26 | Electrocardiogram Report ---
Test Reason : Blood Pressure : / mmHG Vent. Rate : 081 BPM Atrial Rate : 080 BPM P-R Int : 000 ms QRS Dur : 174 ms QT Int : 428 ms P-R-T Axes : 093 034 211 degrees QTc Int : 497 ms Sinus rhythm Left bundle branch block Abnormal ECG When compared with ECG of 30-DEC-2018 00:35, Left bundle branch block is now Present Confirmed by Rik Hernandez ([id number]) on 11/20/2019 5:26:42 PM Referred By: REFERRED SELF Confirmed By:Manny Hernandez
--- NOTE | 2019-11-20 17:45 | Hospitalist Progress Note ---
Date of Service November 20, 2019 Assessment & Plan (1) Hypertensive urgency: Resolved with addition of hydralazine. Cont Isordil, Norvasc, Coreg per home regimen. Lasix 40mg IV BID was converted back to her home dose of 80mg PO BID. Kidney function appears stable. (2) Left bundle branch block: Resolved. Stress test was negative for inducible ischemia. (3) Heartburn: Reports being on Prilosec, Tagamet, Ranitidine in the past. She was taken off these by her Associate Professor Of Kinesiology per her report. She is currently on Pepcid but states it is less effective. Offered TUMS until she can discuss this further with her Associate Professor Of Kinesiology. (4) Chronic kidney disease (CKD), stage IV (severe): at baseline. Followup with Nephrology as outpatient. (5) Obesity: (6) DVT prophylaxis: Heparin Full Dispo-to home in am. Constanza Overton DO [facility] Hospitalist Subjective 84 yo F with chest pain and elevated BP on arrival. She reports a resolution of her pain. Workup for ACS was negative and she underwent a Lexiscan stress today with no evidence of ischemia. BP has been better controlled with the addition of hydralazine. She is feeling well but asking to stay overnight to ensure her BP stays in the appropriate range. Review of Systems Review of Systems: All systems reviewed & are unremarkable except as noted in HPI & below Physical Exam Physical Exam: CONSTITUTIONAL: obese, vitals as above, generally well- appearing EYES: normal conjunctivae, no scleral icterus ENT: MMM RESPIRATORY: clear to auscultation bilaterally, no crackles, rales or wheezes, normal respiratory effort CARDIOVASCULAR: regular rate and rhythm, S1 and 2 heard without murmurs, gallops or rubs, no JVD, no peripheral edema CHEST: inspection of chest was normal GASTROINTESTINAL: soft, nontender, nondistended MUSCULOSKELETAL: strength 5/5 throughout, head is normocephalic and atraumatic SKIN: warm and dry NEUROLOGIC: CN 2-12 grossly intact, normal cognition, no gross focal deficits. PSYCHIATRIC: alert and cooperative. Results & Data Vital Signs (Past 12 Hours) Vital Signs Temp Pulse Pulse Resp BP BP Pulse Ox 11/20/19 15:15 36.4 C L 78 21 116/65 95 11/20/19 09:45 63 11/20/19 07:31 36.3 C L 67 20 154/72 H 94 11/20/19 06:20 72 123/71 Laboratory Results Cardiac Enzymes 11/19/19 Range/Units 17:22 Troponin I < 0.015 (0-0.045) ng/ml Medications Administered Current Inpatient Medications Acetaminophen (Tylenol) 650 mg PO Q4H PRN PRN Reason: Pain or Fever Stop: 12/19/19 03:00 Acetaminophen (Tylenol) 1,000 mg PO BID ARMOND Stop: 12/19/19 08:59 Last Admin: 11/20/19 08:48 Dose: 1,000 mg Documented by: Amlodipine Besylate (Norvasc) 2.5 mg PO HS [facility] Stop: 12/19/19 20:59 Last Admin: 11/19/19 20:41 Dose: 2.5 mg Documented by: Aspirin (Ecotrin Ectab) 81 mg PO QAM [facility] Stop: 12/19/19 08:59 Last Admin: 11/20/19 08:47 Dose: 81 mg Documented by: Carvedilol (Coreg) 18.75 mg PO BID [facility] Stop: 12/19/19 08:59 Last Admin: 11/20/19 08:47 Dose: 18.75 mg Documented by: Docusate Sodium (Colace) 200 mg PO HS [facility] Stop: 12/19/19 20:59 Last Admin: 11/19/19 20:40 Dose: 200 mg Documented by: Ergocalciferol (Vitamin D2) 50,000 units PO Sa@0900 [facility] Stop: 12/23/19 08:59 Famotidine (Pepcid) 20 mg PO DAILY [facility] Stop: 12/19/19 08:59 Last Admin: 11/20/19 08:46 Dose: 20 mg Documented by: Hydralazine HCl (Apresoline) 25 mg PO Q8 [facility] Stop: 12/19/19 08:44 Last Admin: 11/20/19 13:14 Dose: 25 mg Documented by: Furosemide 40 mg/ Syringe 4 mls @ 4 mls/min IV [id number] ARMOND Stop: 12/19/19 08:59 Last Admin: 11/20/19 16:04 Dose: 4 mls/min Documented by: Insulin Aspart (Novolog Flexpen) 0 units SC Q6 ARMOND Stop: 12/19/19 05:59 Last Admin: 11/20/19 17:18 Dose: 9 units Documented by: Insulin Glargine (Lantus Solostar Pen) 15 units SC BID [facility] Stop: 12/19/19 08:59 Last Admin: 11/20/19 09:15 Dose: 15 units Documented by: Isosorbide Dinitrate (Isordil) 20 mg PO TID@0700,1200,1700 [facility] Stop: 12/19/19 06:59 Last Admin: 11/20/19 17:18 Dose: 20 mg Documented by: Labetalol HCl (Normodyne) 10 mg IV Q4H PRN PRN Reason: Hypertension Stop: 12/19/19 03:00 Lisinopril (Zestril) 40 mg PO QAM [facility] Stop: 12/19/19 08:59 Last Admin: 11/20/19 08:47 Dose: 40 mg Documented by: Lorazepam (Ativan) 0.5 mg PO Q8 PRN PRN Reason: Anxiety Stop: 12/19/19 18:53 Nitroglycerin (Nitrostat) 0.4 mg SL UD PRN PRN Reason: Chest Pain Stop: 12/19/19 03:00 Ondansetron HCl (Zofran) 4 mg IV Q6H PRN PRN Reason: Nausea Stop: 12/19/19 03:00 Last Admin: 11/19/19 09:24 Dose: 4 mg Documented by: Polyethylene Glycol (Miralax Powder Packet) 17 gm PO DAILY PRN PRN Reason: Constipation Stop: 12/19/19 03:00 Rosuvastatin Calcium (Crestor) 10 mg PO QPM [facility] Stop: 12/19/19 20:59 Last Admin: 11/19/19 20:40 Dose: 10 mg Documented by:
--- NOTE | 2019-11-20 17:51 | Electrocardiogram Report ---
Test Reason : Blood Pressure : / mmHG Vent. Rate : 071 BPM Atrial Rate : 071 BPM P-R Int : 162 ms QRS Dur : 096 ms QT Int : 436 ms P-R-T Axes : 027 013 046 degrees QTc Int : 473 ms Normal sinus rhythm Normal ECG When compared with ECG of 18-NOV-2019 22:03, (unconfirmed) Fusion complexes are no longer Present Left bundle branch block is no longer Present Confirmed by Rik Hernandez ([id number]) on 11/20/2019 5:51:36 PM Referred By: REFERRED SELF Confirmed By:Manny Hernandez
[2019-11-20] MEDS: ROSUVASTATIN CALCIUM 10 MG TAB PO SCH (20:39)
[2019-11-20] MEDS: AMLODIPINE BESYLATE 5 MG TAB PO SCH (20:39)
[2019-11-20] MEDS: DOCUSATE SODIUM 100 MG CAP PO SCH (20:41)
[2019-11-20] MEDS: HEPARIN SOD 5,000 UNIT/0.5 ML VIAL SQ SCH (20:43)
[2019-11-21] MEDS: INSULIN ASPART 100 UNITS/ML 3 ML PEN SC SCH ×3 (00:33→12:36)
[2019-11-21] MEDS: HEPARIN SOD 5,000 UNIT/0.5 ML VIAL SQ SCH (05:03)
[2019-11-21] MEDS: ISOSORBIDE DINITRATE 20 MG TAB PO SCH ×2 (06:10→11:54)
[2019-11-21] MEDS: carvediloL 12.5 MG TAB PO SCH (08:53)
[2019-11-21] MEDS: INSULIN GLARGINE SOLOSTAR 100 UNITS/ML 3 ML PEN SC SCH (08:54)
[2019-11-21] MEDS: ASPIRIN 81 MG ECTAB PO SCH (08:54)
[2019-11-21] MEDS: ACETAMINOPHEN 500 MG TAB PO SCH (08:55)
[2019-11-21] MEDS: FAMOTIDINE 20 MG TAB PO SCH (08:55)
[2019-11-21] MEDS: lisinopriL 40 MG TAB PO SCH (08:55)
[2019-11-21] MEDS ORDERED: FUROSEMIDE 80 MG TAB PO SCH (09:00)
--- NOTE | 2019-11-21 10:35 | Discharge Summary ---
Date of Service November 21, 2019 Admission HPI Per Admitting Provider HISTORY OF PRESENT ILLNESS: This 84-year-old female with past medical history significant for type 2 diabetes, history of hypothyroidism, hyperlipidemia, chronic rhinitis, chronic kidney disease stage IV, mitral valve insufficiency, diastolic CHF, hypertension, obesity, nocturnal hypoxia, osteoporosis, lumbar degenerative disc disease, presents with elevated blood pressure and chest pain. The patient states her blood pressure running high. Seen by cardiology on 10/31/2019 and her isosorbide was increased to 3 times per day and if it is still elevated, there is plan to add hydralazine versus low-dose terazosin. The patient says her blood pressure later running in the 160s to 170s, but today when she checked it was in 200s, then she developed panic kind of feeling and also some chest discomfort on and off, no radiation, she says something not feeling right and was feeling a little dizzy. She has had some headaches that she thinks it is because of increased dose of isosorbide. She came to the ER and initially her blood pressure was in the 200s, after given labetalol, it has come down. Denies any shortness of breath, no cough, no fever, no chills, no nausea, no vomiting. In the afternoon, she is having some blurry visions, no earache, no runny nose, no sore throat, no dysphagia, no odynophagia, no abdominal pain. Normal bowel and bladder movements. No blood in the stools or black stools. No burning micturitions, no hematuria. No rash. Walks with a walker and cane at home. Lives with her son. Appetite is okay. Sometimes she gets up in the night with soaking sweats. She uses oxygen while sleeping. Admission Exam Per Admitting Provider PHYSICAL EXAMINATION: GENERAL: The patient is obese, not in acute distress. VITAL SIGNS: Temperature 36.5, pulse 74, respiratory rate 20, blood pressure 221/86, oxygen 95% room air. HEENT: No pallor, no icterus. Pupils equal, round, reactive to light. NECK: No JVD, no neck masses, no carotid bruits. CARDIOVASCULAR: S1, S2 heard, regular rate and rhythm, no murmur, no gallop. RESPIRATORY SYSTEM: Normal AP diameter. No accessory muscle use. No wheezing. Mild bibasilar crackles. ABDOMEN: Soft, bowel sounds present, nontender, nondistended. CENTRAL NERVOUS SYSTEM: Cranial nerves II-XII grossly intact. Nonfocal. EXTREMITIES: Mild pedal edema, no erythema seen. Principal Diagnosis Hypertensive Urgency Left bundle branch block resolved Discharge Data Allergies Allergy/AdvReac Type Severity Reaction Status Date / Time morphine Allergy Intermediate confusion Verified 11/18/19 23:58 phenylpropanolamine AdvReac Unknown Unknown Verified 11/18/19 23:58 Consultations 11/19/19 00:04 ED Decision to Admit Stat 11/19/19 03:01 Consult Case Management - Discharge Planning Routine 11/19/19 08:00 Consult Cardiology Routine Hospital Course (1) Hypertensive urgency: (2) Left bundle branch block: (3) Heartburn: 84-year-old female presented with elevated blood pressure. She was admitted to the hospitalist service and started on hydralazine. Cardiology was consulted for blood pressure issues and recognition of new left bundle branch block on EKG. Serial cardiac enzymes were negative. An echocardiogram revealed mild right concentric LVH with an ejection fraction 55 to 60% and no left ventricular wall motion abnormalities noted. Grade 1 diastolic dysfunction was seen. Her amlodipine carvedilol, Isordil and lisinopril were continued consistent with home regimen and cardiology recommended addition of hydralazine 25 mg 3 times daily. Given the fact she had chest discomfort and new left bundle branch block ischemic work-up with a Lexiscan nuclear stress test was recommended and performed the following day. This revealed no evidence of ischemia. Although initially the patient was given a dose of IV Lasix in the ER, she did not examine as volume overload and clinical picture was not consistent with a heart failure exacerbation. Repeat EKG revealed resolution of left bundle branch block once the chest discomfort resolved and blood pressure improved. At time of discharge she was hemodynamically stable and afebrile and tolerating p.o. She had a consistently controlled blood pressure tract with vital signs every 4 hours. She was mentating and ambulating at baseline and tolerating p.o. Physical exam was unremarkable at time of discharge. Close primary care follow-up was recommended within 1 week of discharge. She did have some concerns about Pepcid not working for her heartburn and mentioned that Dr. Childress, her manager heart, had taken her off multiple agents in the past. She did mention liking ranitidine but wanted to avoid it secondary to new black box warnings. I encouraged her to take Tums as needed and discuss an alternative agent that may be more effective with either her primary care doctor or Dr. Childress. She verbalized understanding with intent to comply. Total Time Total Time Spent Total Time Spent (In Minutes): 60 Total Time Includes: Examination of the Patient, Discharge Planning, Medication Reconciliation and Communication With Other Providers Discharge Plan Discharge Items Patient Disposition: Home - Self-Care Reason For Visit: ELEVATED HTN Discharge Diagnosis: Hypertensive Urgency Left bundle branch block resolved Condition on Discharge: Good Activity: Resume your previous activity Non-emergency contact: Primary Care Provider Call non-emergency contact if: you have any medication questions, your symptoms worsen, your pain is not controlled, your pain is worsening, your pain is unusual for you, your pain is concerning for you and you have a fever Follow-up/Referrals: Fox Ramirez MD [Primary Care Provider] - 11/25/19 1:05 pm Diet: Low Sodium (2gm) Addtl Attending Provider Instructions: Please take all medications as instructed. It is recommended that you followup with [facility]iology nonurgently for followup of your transient left bundle branch block. For any heartburn symptoms that occur as breakthrough despite your Pepcid, please consider taking TUMS. Please follow-up with your provider to discuss an alternative agent. It is recommended that you follow-up with your primary are provider per the appointment below: 11/25/2019 1:20 PM Fox Ramirez MD [facility], [place] It was a pleasure taking care of you! Please call if you have any questions or problems. You can reach a [facility] hospitalist on duty at [facility] 24 hours a day by calling [phone]. Take care of yourself. Constanza Overton, [facility] Hospitalist Pending Studies at Discharge: No Stand-Alone Forms: My [facility] Extreme [employer], Smoking Cessation Medications and DC Order Prescriptions: New hydralazine 25 mg Tablet 25 mg PO Q8 30 Days Qty: 90 RF: 1 Continued (DME) Oxygen Home Liters Per Minute See Dose Instructions .ROUTE .MEDSUPPLY Qty: 1 RF: 0 amlodipine 2.5 mg tablet 2.5 mg PO HS RF: 0 aspirin 81 mg Tablet,Delayed Release (Dr/Ec) 81 mg PO QAM RF: 0 lisinopril 40 mg tablet 40 mg PO QAM RF: 0 furosemide 40 mg tablet 80 mg PO BID RF: 0 insulin aspart U-100 [Novolog U-100 Insulin aspart] 100 unit/mL solution 0 unit subcut AC RF: 0 isosorbide dinitrate 20 mg tablet 20 mg PO TID RF: 0 rosuvastatin 10 mg tablet 10 mg PO QPM RF: 0 carvedilol 12.5 mg tablet 18.75 mg PO BID RF: 0 ergocalciferol (vitamin D2) 50,000 unit Capsule 50,000 unit PO WK RF: 0 acetaminophen [Tylenol Extra Strength] 500 mg Tablet 1,000 mg PO AMHS RF: 0 Humulin 70/30 U-100 Insulin 100 unit/mL (70-30) suspension 75 units subcut QAM RF: 0 Humulin 70/30 U-100 Insulin 100 unit/mL (70-30) suspension 55 units subcut QPM RF: 0 famotidine [Pepcid] 20 mg Tablet 20 mg PO DAILY RF: 0 docusate sodium [Colace] 100 mg Capsule 200 mg PO HS RF: 0 Discharge Orders: Discharge Order (Routine); Ordered 11/21/19 Ordered By: Constanza Overton Admission Data Admit Date/Time: 11/19/19 02:13 Attending Provider: Constanza Overton Admit Provider: Jorge Luis Beasley Primary Care Provider: Fox Ramirez Other Providers: Jorge Luis Beasley ; Dallas Gaffney Other Interventions: Discharge Summary Assessment (RN) Last Done: 11/21/19 13:32 DC Date/Time DO NOT enter until pt leaves facility: 11/21/19 13:57
--- NOTE | 2019-11-21 12:23 | Cardiology Progress Note ---
Date of Service November 21, 2019 Assessment & Plan (1) Hypertensive urgency: BP now greatly controlled with the addition of hydralazine to her outpatient medical regimen. Would continue hydralazine 25 mg p.o. 3 times daily in addition to her outpatient medical regimen. No other changes from a cardiac standpoint at this time. (2) Volume overload: Does not examine significant volume overload at this time. (3) Chronic kidney disease (CKD), stage IV (severe): (4) Nocturnal hypoxemia: Continue nocturnal O2 Consideration can be given to repeat outpatient sleep study given high likelihood of obstructive sleep apnea. (5) Left bundle branch block: New finding, however, resolved overnight. Nonischemic Lexiscan nuclear stress test. Transient left bundle branch block without underlying ischemia, no further work- up indicated at this time. Does raise concern for possible primary conduction system disease in the future. Follow-up with PCP and cardiology as an outpatient. Signs and symptoms of arrhythmia or heart block reviewed with the patient. Okay to discharge the patient to from a cardiac standpoint. Subjective Patient seen and examined, states she is having some acid reflux this morning and feeling fatigued. Has not had any recurrences of chest discomfort that was present upon presentation. Denies any palpitations, lightheadedness, dizziness or syncope. Tolerating addition of hydralazine without issue. Telemetry reviewed: Normal sinus rhythm, left bundle branch block pattern has resolved Review of Systems Review of Systems: All systems reviewed & are unremarkable except as noted in HPI & below Physical Exam Physical Exam: General: Awake, alert and oriented x 3. No acute distress. HEENT: Normocephalic, atraumatic. Pupils equal, round and reactive to light and accommodation. Extraocular muscles are intact. Anicteric sclera. Moist mucous membranes. Neck: No JVD. No bruit. Cardiovascular: Regular. Positive S-4. Normal S-1 and S-2. No S-3. No murmurs or rubs. Pulmonary: Clear to auscultation B/L. No rales, rhonchi or wheezing Abdomen: Bowel sounds x 4, soft. No rebound, guarding or tenderness. No or ganomegaly. Extremities: No clubbing, cyanosis or edema. +2 pedal pulses bilaterally. Skin: Warm and dry. Results & Data Vital Signs (Past 12 Hours) Vital Signs Temp Pulse Pulse Resp BP BP Pulse Ox 11/21/19 11:37 36.6 C 71 18 155/73 H 95 11/21/19 08:00 79 11/21/19 07:40 36.6 C 66 17 129/64 98 11/21/19 05:14 76 127/72 11/21/19 03:49 36.4 C L 71 18 145/71 H 94 11/21/19 01:38 76 (1) Volume overload Hypervolemia type: unspecified Qualified Code(s): E87.70 - Fluid overload, unspecified
--- NOTE | 2019-11-21 17:29 | Electrocardiogram Report ---
Test Reason : Blood Pressure : / mmHG Vent. Rate : 069 BPM Atrial Rate : 069 BPM P-R Int : 176 ms QRS Dur : 098 ms QT Int : 432 ms P-R-T Axes : 048 001 028 degrees QTc Int : 462 ms Normal sinus rhythm Normal ECG When compared with ECG of 20-NOV-2019 07:09, No significant change was found Confirmed by Rik Hernandez ([id number]) on 11/21/2019 5:29:26 PM Referred By: REFERRED SELF Confirmed By:Manny Hernandez
[2019-11-23] MEDS ORDERED: ERGOCALCIFEROL 50,000 UNITS CAP PO SCH (09:00)
== END 2019-11-21 13:57 | disposition home or self-care (01) | DRG 309 ==
LOC: ED 21:53 → SUATTDRO 11-19 02:13 → 2N 11-19 02:13

== ENCOUNTER 2020-10-26 19:55 | Inpatient (IN) ==
[2020-10-26] MEDS ORDERED: ONDANSETRON INJ 2 MG/ML 2 ML VIAL IV STA (20:03)
[2020-10-26 20:16] LABS: Basophils # (auto) 0.02 K/uL (0-0.2); Basophils % (auto) 0.2 %; Eosinophils # (auto) 0.23 K/uL (0-0.5); Eosinophils % (auto) 2.2 %; Hematocrit (blood only) 35.3 % (37-47); Hemoglobin 11.7 g/dL (12.0-16.0); Immature Granulocytes # (auto) 0.02 K/uL (0.00-0.02); Immature Granulocytes % (auto) 0.2 %; Lymphocytes # (auto) 1.45 K/uL (1.2-3.4); Lymphocytes % (auto) 14.1 %; Mean Corpuscular Hgb Conc 33.1 g/dL (32-36); Mean Corpuscular Volume 93.6 fL (80-100); Mean Platelet Volume 9.3 fL (7.4-10.4); Monocytes # (auto) 0.95 K/uL (0.11-0.59); Monocytes % (auto) 9.2 %; Neutrophils # (auto) 7.62 K/uL (1.4-6.5); Neutrophils % (auto) 74.1 %; Platelet Count 321 K/uL (130-400); RDW Standard Deviation 47.6 fL (36.4-46.3); Red Blood Count 3.77 M/uL (4.2-5.4); White Blood Count 10.29 K/uL (4.8-10.8)
[2020-10-26 20:33] LABS: Appearance Urine Clear (Clear); Bacteria Urine Automated Negative (Negative); Bilirubin Urine Negative (Negative); Blood Urine Negative (Negative); Color Urine Yellow; Glucose Urine UA Negative (Negative); Ketones Urine Negative (Negative); Leukocyte Esterase Urine Negative (Negative); Nitrite Urine Negative (Negative); Protein Urine Trace (Negative); RBC Urine Automated 0-4 /hpf (0-4); Specific Gravity Urine 1.009 (1.000-1.030); Urobilinogen Urine Negative (Negative); WBC Urine Automated 0 /hpf (0-5)
[2020-10-26 20:34] LABS: Albumin Level 4.1 gm/dl (3.4-5.0); BUN Creatinine Ratio 21.2 (10-20); Blood Urea Nitrogen 53 mg/dl (7-18); Carbon Dioxide 27 mmol/L (21-32); Chloride 105 mmol/L (98-107); Creatinine Clr Calc Pharmacy 19.5 ml/min; Est GFR (African American) 19.4; Est GFR (Non-African American) 16.8; Glucose 140 mg/dl (70-99); Lipase 222 U/L (73-393); Potassium 3.9 mmol/L (3.5-5.1); Sodium 139 mmol/L (136-145)
[2020-10-26 20:37] LABS: Alanine Aminotransferase 17 U/L (12-78); Albumin Globulin Ratio 1.3 (0.9-2); Alkaline Phosphatase 65 U/L (45-117); Aspartate Aminotransferase 10 U/L (15-37); Bilirubin,Total 0.7 mg/dl (0.2-1); Globulin 3.2 gm/dl (2.5-4.0); Total Protein 7.3 gm/dl (6.4-8.2)
[2020-10-26] MEDS ORDERED: FUROSEMIDE 40 MG/4 ML VIAL IV STA (22:52)
--- NOTE | 2020-10-26 23:33 | Emergency Department Note ---
History of Present Illness General Chief complaint: GI Assessment Stated complaint: sob, dizzy, nausea, anxiety Time Seen by Provider: 10/26/20 22:08 Source: patient and family History of Present Illness Provider complaint: Chest pain Onset (ago): hour(s) Location: chest Radiation: non-radiation Pain Consistency: + now resolved Quality: + other (Unable to describe) Relieved By: + none Associated symptoms: + nausea/vomiting and + shortness of breath; no cough and no fever/chills This is an 85-year-old female presents with chest pain starting prior to arrival. She is unable to describe type of pain she had. Is in the middle of her chest without radiation. It is now resolved. No alleviating factors. It is associated with shortness of breath. She does state that she has been having intermittent episodes of shortness of breath over the past 2 weeks. No eliciting factors. The patient stated that she bent down to get something today and felt very short of breath and developed chest pain. She also feels like her abdomen is distended. She takes laxatives to help have bowel movements but she feels like she needs to have more bowel movements. She vomited once today and complains of gas-like pain to the abdomen. She did last have a bowel movement yesterday. She has been urinating as per usual. She has noticed increased ankle swelling over the past 2 days and does take Lasix for this. She does have a history of CHF. She denies any fever, cough or cold symptoms, or known exposure to COVID-19. Home Medications Medication Instructions Recorded Confirmed Type acetaminophen [Tylenol Extra 1,000 mg PO AMPM 12/30/18 10/26/20 History Strength] aspirin 81 mg PO QAM 12/30/18 10/26/20 History isosorbide dinitrate 20 mg PO TID 12/30/18 10/26/20 History rosuvastatin 10 mg PO QPM 12/30/18 10/26/20 History Oxygen Home #1 ea 05/31/19 09/09/20 Rx insulin human U-100 NPH-regulr 55 - 60 units SUBCUT BID ml 10/21/19 10/26/20 History 70-30 mix 100 unit/mL subcutaneous susp famotidine [Pepcid] 20 mg PO QPM 11/18/19 10/26/20 History carvedilol 12.5 mg tablet 18.75 mg PO BID tab 05/11/20 10/26/20 History lisinopril 40 mg tablet 40 mg PO QAM #90 tab 05/11/20 10/26/20 Rx ergocalciferol (vitamin D2) 50,000 unit PO MONTHLY 06/23/20 10/26/20 History lidocaine [Salonpas (lidocaine)] 1 patch TOPICAL QAM 06/23/20 10/26/20 History furosemide 40 mg tablet 40 mg PO .COMPLEX 08/12/20 10/26/20 History allopurinol 100 mg tablet 100 mg PO DAILY #60 tab 09/09/20 10/26/20 Rx diclofenac sodium 1 % topical gel 4 g TOP QID #100 g 09/09/20 10/26/20 Rx hydralazine 50 mg tablet 50 mg PO TID #270 tab 09/09/20 10/26/20 Rx sennosides-docusate sodium [Senna 1 tab-cap PO HS 10/26/20 10/26/20 History with Docusate Sodium] Allergies Allergy/AdvReac Type Severity Reaction Status Date / Time No Known Allergies Allergy Verified 10/26/20 22:13 Past Med/Surg History Medical History (Updated 10/27/20 @ 00:15 by Jim Russo MD) Atrial fibrillation follows with [facility] CHF (congestive heart failure) Chronic back pain Chronic kidney disease (CKD), stage IV (severe) Diabetes mellitus, type 2 Hearing deficit History of kidney stones HTN (hypertension) Hyperlipidemia Morbid obesity with BMI of 40.0-44.9, adult Nausea and vomiting after administration of anesthetic agent Nocturnal hypoxemia On home oxygen therapy 2L N/C at HS only Osteoarthritis Spinal stenosis Surgical History H/O: hysterectomy History of arthroscopy of left knee History of bilateral tubal ligation History of cardiac cath ?2009--@ [facility] [place]no st[place] History of colonoscopy History of cystoscopy History of dilatation and curettage History of esophagogastroduodenoscopy (EGD) History of tooth extraction all teeth Hx of appendectomy Hx of cholecystectomy Family History Sister Family history of diabetes mellitus Sister Family history of diabetes mellitus Brother Family history of diabetes mellitus Family history of esophageal cancer Brother Family history of esophageal cancer Other No family history of adverse response to anesthesia No significant family history Social History Smoking Status: Never smoker Second Hand Exposure: Yes ( smoked); Hx Alcohol Use: No Hx Substance Use: No Preferred Language: Iraqi Communication Ability: Effective 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 and A total of 10 systems reviewed and were otherwise negative Physical Exam Vital Signs Vital Signs - 24 hr 10/26/20 19:56 10/26/20 22:55 10/26/20 23:21 Temperature 36.3 C L Temperature Source Temporal Artery Scan Pulse Rate 78 78 Pulse Rate [Apical] 75 Pulse Rhythm Regular Respiratory Rate 20 18 16 Respiratory Effort / Characteristics Non-Labored Spontaneous Non-Labored Spontaneous Respiratory Depth Normal Normal Blood Pressure 189/102 H Blood Pressure [Right Arm] 172/77 H Blood Pressure Mean 131 Blood Pressure Mean [Right Arm] 108 Blood Pressure Position Sitting Pulse Oximetry 96 95 97 Oxygen Delivery Method Room Air Room Air Room Air Sepsis Recent Fever Within 48 Hours No Sepsis New/Unexplained Change in Mental Status No Sepsis Action Taken by Nursing No Action Required Constitutional: Vital signs reviewed. Eyes: Pupils are equal round reactive to light. Conjunctiva are noninjected. ENT: Pharynx is clear without erythema or exudate. Mucous membranes are moist. Neck supple without meningeal signs. Respiratory: Clear to auscultation bilaterally. Breath sounds are equal bilaterally. No rales. Cardiovascular: Regular rate and rhythm. No rubs or gallops. GI: Soft, distended and nontender. Bowel sounds are present. Musculoskeletal: Bilateral pedal edema. Integumentary: No cyanosis. or jaundice. Neurological: The patient is awake and alert. No focal deficits. Psychiatric: Normal affect. Not anxious appearing. Course Administered Medications Discontinued Medications Furosemide (Furosemide 40 Mg/4 Ml Vial) 40 mg IV NOW STA Stop: 10/26/20 22:53 Last Admin: 10/26/20 23:15 Dose: 40 mg Documented by: [id number] Ondansetron HCl (Ondansetron Inj 2 Mg/Ml 2 Ml Vial) 4 mg IV NOW STA Stop: 10/26/20 20:04 Last Admin: 10/26/20 20:10 Dose: 4 mg Documented by: [id number] Medical Decision Making Differential Diagnosis COVID-19, bowel obstruction, pneumonia, pleural effusion, CHF exacerbation, ACS Medical Records Attestation: I reviewed the patient's medical records. I did perform a limited focused review of portions of the patient's old chart on the electronic medical record. 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 He continued her on Lasix. Home Medications Current Medication List: was personally reviewed by me Laboratory Data Attestation: I reviewed the patient's lab results. Result diagrams: 10/26/20 20:09 10/26/20 20:09 Lab Results 10/26/20 10/26/20 10/26/20 Range/Units 20:09 20:09 20:09 WBC 10.29 (4.8-10.8) K/uL RBC 3.77 L (4.2-5.4) M/uL Hgb 11.7 L (12.0-16.0) g/dL Hct 35.3 L (37-47) % MCV 93.6 (80-100) fL MCH 31.0 (25-34) pg MCHC 33.1 (32-36) g/dL RDW Std Deviation 47.6 H (36.4-46.3) fL RDW Coeff of Noemy 14.0 (11.5-14.5) % Plt Count 321 (130-400) K/uL MPV 9.3 (7.4-10.4) fL Immature Gran % (Auto) 0.2 % Neut % (Auto) 74.1 % Lymph % (Auto) 14.1 % [place] % (Auto) 9.2 % Eos % (Auto) 2.2 % Baso % (Auto) 0.2 % Neut # (Auto) 7.62 H (1.4-6.5) K/uL Lymph # (Auto) 1.45 (1.2-3.4) K/uL [place] # (Auto) 0.95 H (0.11-0.59) K/uL Eos # (Auto) 0.23 (0-0.5) K/uL Baso # (Auto) 0.02 (0-0.2) K/uL Immature Gran # (Auto) 0.02 (0.00-0.02) K/uL PT (9.0-12.0) Seconds INR (0.9-1.1) APTT (21.0-31.0) Seconds PTT Ratio Sodium 139 (136-145) mmol/L Potassium 3.9 (3.5-5.1) mmol/L Chloride 105 (98-107) mmol/L Carbon Dioxide 27 (21-32) mmol/L Anion Gap 7.0 (3-11) BUN 53 H (7-18) mg/dl Creatinine 2.51 H (0.6-1.2) mg/dl Est Cr Clr Drug Dosing 19.5 ml/min Est GFR ( Amer) 19.4 Est GFR (Non-Af Amer) 16.8 BUN/Creatinine Ratio 21.2 H (10-20) Glucose 140 H (70-99) mg/dl Calcium 10.0 (8.5-10.1) mg/dl Total Bilirubin 0.7 (0.2-1) mg/dl AST 10 L (15-37) U/L ALT 17 (12-78) U/L Alkaline Phosphatase 65 (45-117) U/L Troponin I < 0.015 (0-0.045) ng/ml NT-Pro-B Natriuret Pep 834 (0-1800) pg/ml Total Protein 7.3 (6.4-8.2) gm/dl Albumin 4.1 (3.4-5.0) gm/dl Globulin 3.2 (2.5-4.0) gm/dl Albumin/Globulin Ratio 1.3 (0.9-2) Lipase 222 (73-393) U/L Urine Color Yellow Urine Appearance Clear (Clear) Urine pH 7.0 (4.5-7.5) Ur Specific [place] 1.009 (1.000-1.030) Urine Protein Trace H (Negative) Urine Glucose (UA) Negative (Negative) Urine Ketones Negative (Negative) Urine Blood Negative (Negative) Urine Nitrite Negative (Negative) Urine Bilirubin Negative (Negative) Urine Urobilinogen Negative (Negative) Ur Leukocyte Esterase Negative (Negative) Urine WBC (Auto) 0 (0-5) /hpf Urine RBC (Auto) 0-4 (0-4) /hpf U Hyaline Cast (Auto) 1-5 (0-5) /lpf U Epithel Cells (Auto) 5-10 H (0-5) /lpf Urine Bacteria (Auto) Negative (Negative) SARS-CoV-2 Ag (Rapid) (Negative) 10/26/20 10/26/20 Range/Units 20:09 23:21 WBC (4.8-10.8) K/uL RBC (4.2-5.4) M/uL Hgb (12.0-16.0) g/dL Hct (37-47) % MCV (80-100) fL MCH (25-34) pg MCHC (32-36) g/dL RDW Std Deviation (36.4-46.3) fL RDW Coeff of Noemy (11.5-14.5) % Plt Count (130-400) K/uL MPV (7.4-10.4) fL Immature Gran % (Auto) % Neut % (Auto) % Lymph % (Auto) % [place] % (Auto) % Eos % (Auto) % Baso % (Auto) % Neut # (Auto) (1.4-6.5) K/uL Lymph # (Auto) (1.2-3.4) K/uL [place] # (Auto) (0.11-0.59) K/uL Eos # (Auto) (0-0.5) K/uL Baso # (Auto) (0-0.2) K/uL Immature Gran # (Auto) (0.00-0.02) K/uL PT 10.3 (9.0-12.0) Seconds INR 1.0 (0.9-1.1) APTT 26.5 (21.0-31.0) Seconds PTT Ratio 0.9 Sodium (136-145) mmol/L Potassium (3.5-5.1) mmol/L Chloride (98-107) mmol/L Carbon Dioxide (21-32) mmol/L Anion Gap (3-11) BUN (7-18) mg/dl Creatinine (0.6-1.2) mg/dl Est Cr Clr Drug Dosing ml/min Est GFR ( Amer) Est GFR (Non-Af Amer) BUN/Creatinine Ratio (10-20) Glucose (70-99) mg/dl Calcium (8.5-10.1) mg/dl Total Bilirubin (0.2-1) mg/dl AST (15-37) U/L ALT (12-78) U/L Alkaline Phosphatase (45-117) U/L Troponin I (0-0.045) ng/ml NT-Pro-B Natriuret Pep (0-1800) pg/ml Total Protein (6.4-8.2) gm/dl Albumin (3.4-5.0) gm/dl Globulin (2.5-4.0) gm/dl Albumin/Globulin Ratio (0.9-2) Lipase (73-393) U/L Urine Color Urine Appearance (Clear) Urine pH (4.5-7.5) Ur Specific [place] (1.000-1.030) Urine Protein (Negative) Urine Glucose (UA) (Negative) Urine Ketones (Negative) Urine Blood (Negative) Urine Nitrite (Negative) Urine Bilirubin (Negative) Urine Urobilinogen (Negative) Ur Leukocyte Esterase (Negative) Urine WBC (Auto) (0-5) /hpf Urine RBC (Auto) (0-4) /hpf U Hyaline Cast (Auto) (0-5) /lpf U Epithel Cells (Auto) (0-5) /lpf Urine Bacteria (Auto) (Negative) SARS-CoV-2 Ag (Rapid) Negative (Negative) Imaging Data Attestation: I personally reviewed and interpreted this imaging study as follows: My Impression: Acute abdominal series x-rays per my interpretation shows no acute c ardiopulmonary process. She does have cardiomegaly. No consolidation is noted. There is no evidence of free air or bowel obstruction. ECG Data Attestation: I personally reviewed and interpreted this ECG as follows: Indication: + chest pain Rate (beats per minute): 80 Rhythm: + normal sinus ECG [place]: + Normal ECG ST segments: + Nonspecific ST abnormalities ECG Findings: no PVCs MDM Narrative I did evaluate the patient as noted above. The patient is presenting with an episode of chest pain today. She also had shortness of breath which she has had intermittently for the past 2 weeks. She has a history of CHF and has noticed some weight gain and leg swelling. IV access was established. I did treat her with Lasix IV. I did place an order for continuous cardiac monitoring. The monitor showed normal sinus rhythm at a rate of 79 bpm. I did order and personally review the patient's 12-lead EKG as described above. She has some nonspecific ST-T wave changes. No evidence of STEMI. I did order and personally reviewed the images of the patient's chest and abdominal x-rays as described above. There is no evidence of acute obstruction. She has cardiomegaly without pulmonary edema. I did order a urine analysis. She does not have a UTI. I did order and review the patient's blood work as noted in the electronic medical record. She has stable anemia. White count is 10.2. Creatinine is chronically elevated at 2.5. Troponin is within normal limits. BNP is 834. Lipase is 222. LFTs are unremarkable. Rapid Covid testing was negative. I did discuss the test results with the patient and her daughter. I did recommend hospitalization for further care and evaluation including repeat cardiac biomarkers as well as possible CT of the abdomen pelvis should she continue to have abdominal symptoms. I did discuss case with the hospitalist and piano case maker. Impression & Plan Acute chest pain, CHF (congestive heart failure), Abdominal pain Discharge Plan Visit Data Chief Complaint: GI Assessment Stated Complaint: sob, dizzy, nausea, anxiety ED Provider: Jim Russo Discharge Problem: Acute chest pain, CHF (congestive heart failure), Abdominal pain Patient Disposition: Being Evaluated by Hospitalist Forms Stand Alone Forms: My [facility] Prescriptions Prescriptions: No Action lisinopril 40 mg tablet 40 mg PO QAM Qty: 90 RF: 3 allopurinol 100 mg tablet 100 mg PO DAILY Qty: 60 RF: 1 hydralazine 50 mg tablet 50 mg PO TID Qty: 270 RF: 3 diclofenac sodium 1 % gel 4 g TOP QID Qty: 100 RF: 6 (DME) Oxygen Home Liters Per Minute See Dose Instructions .ROUTE .MEDSUPPLY Qty: 1 RF: 0 furosemide 40 mg tablet 40 mg PO .COMPLEX RF: 0 ergocalciferol (vitamin D2) 1,250 mcg (50,000 unit) capsule 50,000 unit PO MONTHLY RF: 0 lidocaine [Salonpas (lidocaine)] 4 % Adhesive Patch,Medicated 1 patch TOPICAL QAM RF: 0 aspirin 81 mg Tablet,Delayed Release (Dr/Ec) 81 mg PO QAM RF: 0 isosorbide dinitrate 20 mg tablet 20 mg PO TID RF: 0 rosuvastatin 10 mg tablet 10 mg PO QPM RF: 0 acetaminophen [Tylenol Extra Strength] 500 mg Tablet 1,000 mg PO AMPM RF: 0 Humulin 70/30 U-100 Insulin 100 unit/mL (70-30) suspension 55 - 60 units subcut BID RF: 0 carvedilol 12.5 mg tablet 18.75 mg PO BID RF: 0 famotidine [Pepcid] 20 mg Tablet 20 mg PO QPM RF: 0 sennosides-docusate sodium [Senna with Docusate Sodium] 8.6-50 mg tablet 1 tab-cap PO HS RF: 0 Referrals Referrals: Fox Ramirez MD [Primary Care Provider] - Discharge Problem: CHF (congestive heart failure) Qualifiers: Heart failure type: unspecified Heart failure chronicity: acute on chronic Qualified Code(s): I50.9 - Heart failure, unspecified Abdominal pain Qualifiers: Abdominal location: generalized Qualified Code(s): R10.84 - Generalized abdominal pain
[2020-10-26 23:54] LABS: Partial Thromboplastin Ratio 0.9; Partial Thromboplastin Time 26.5 Seconds (21.0-31.0); Prothrombin Time 10.3 Seconds (9.0-12.0)
[2020-10-26 23:58] LABS: NT Pro B Type Natriuretic Pept 834 pg/ml (0-1800); Troponin I < 0.015 ng/ml (0-0.045)
[2020-10-27] MEDS ORDERED: carvediloL 6.25 MG TAB PO STA (00:29)
[2020-10-27] MEDS: LORazepam 0.25 MG/0.5 ML VIAL IV STA ×2 (00:54→01:03)
[2020-10-27] MEDS ORDERED: PROMETHAZINE HCL 12.5 MG in SODIUM CHLORIDE 0.9% 50 ML IV STA (02:17)
--- NOTE | 2020-10-27 02:18 | History & Physical Report ---
Date of Service October 27, 2020 Assessment & Plan (1) Hypertensive urgency: Secondary to GERD-like epigastric/chest pain and worsening constipation symptoms Anxiety contributory chronic diastolic heart failure (EF 55 to 60%, TTE 2019), patient euvolemic on examination hx LBBB DM2 insulin requiring (well-controlled as of recent hemoglobin A1c of 6.30 April 2020 CRI, creatinine at baseline chronic anemia, hemoglobin at baseline LE swelling rule out DVT OBS PCU Facilitate home BP meds Analgesia Extra Famotidine now, consider PPI if with out improvement Augment bowel regimen Anxiolytic as needed CT abdomen pelvis RE worsening constipation symptoms LE venous Dopplers rule out DVT Basal insulin, ISS BG goal [id number], carb count coverage DVT prophylaxis with Heparin subcu Full code Patient's daughter requesting updates for providers. Ms. Devorah Trivedi at [phone]. Text document was generated using [employer] (formerly known as [employer]) voice recognition software. It may contain grammatical or spelling errors. Kindly contact undersigned for clarification of any documentation item in question. History of Present Illness Chief Complaint: Chest pain, shortness of breath, abdominal pain, constipation Primary Care Provider: Fox Ramirez MD History obtained from patient, famiy, and records. Medical history significant for chronic diastolic heart failure (EF 55 to 60%, TTE 2020), chronic left bundle branch block, hypertension, DM2 insulin requiring, CRI (baseline creatinine 2.5), GERD, chronic constipation, chronic anemia (baseline hemoglobin of 11). Last confinement October 2019 for hypertensive urgency. 1 week history of worsening constipation symptoms. Increasingly hard to move bowels daily. No fever, no chills. Chest/epigastric discomfort similar to reflux, non pleuritic as per patient. Shortness of breath from anxiety as per patient's daughter. Legs slightly swollen although weight stable as per patient. Denies headache. Denies OTC NSAID intake. At the ER, patient received Lasix for possible CHF. MEDICAL HISTORY: As above. SURGERIES: She has had knee surgeries, hysterectomy, bilateral tubal ligation, cholecystectomy and appendectomy. FAMILY HISTORY: Laryngeal cancer, stroke and throat cancer. 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 Allergies Allergy/AdvReac Type Severity Reaction Status Date / Time No Known Allergies Allergy Verified 10/26/20 22:13 Home Medications Medication Instructions Recorded Confirmed Type acetaminophen [Tylenol Extra 1,000 mg PO AMPM 12/30/18 10/26/20 History Strength] aspirin 81 mg PO QAM 12/30/18 10/26/20 History isosorbide dinitrate 20 mg PO TID 12/30/18 10/26/20 History rosuvastatin 10 mg PO QPM 12/30/18 10/26/20 History Oxygen Home #1 ea 05/31/19 09/09/20 Rx insulin human U-100 NPH-regulr 55 - 60 units SUBCUT BID ml 10/21/19 10/26/20 History 70-30 mix 100 unit/mL subcutaneous susp famotidine [Pepcid] 20 mg PO QPM 11/18/19 10/26/20 History carvedilol 12.5 mg tablet 18.75 mg PO BID tab 05/11/20 10/26/20 History lisinopril 40 mg tablet 40 mg PO QAM #90 tab 05/11/20 10/26/20 Rx ergocalciferol (vitamin D2) 50,000 unit PO MONTHLY 06/23/20 10/26/20 History lidocaine [Salonpas (lidocaine)] 1 patch TOPICAL QAM 06/23/20 10/26/20 History furosemide 40 mg tablet 40 mg PO .COMPLEX 08/12/20 10/26/20 History allopurinol 100 mg tablet 100 mg PO DAILY #60 tab 09/09/20 10/26/20 Rx diclofenac sodium 1 % topical gel 4 g TOP QID #100 g 09/09/20 10/26/20 Rx hydralazine 50 mg tablet 50 mg PO TID #270 tab 09/09/20 10/26/20 Rx sennosides-docusate sodium [Senna 1 tab-cap PO HS 10/26/20 10/26/20 History with Docusate Sodium] Past Med/Surg History Medical History (Updated 10/27/20 @ 13:06 by Lawrence Chan MD) CHF (congestive heart failure) Chronic back pain Chronic kidney disease (CKD), stage IV (severe) Diabetes mellitus, type 2 Hearing deficit History of kidney stones HTN (hypertension) Hyperlipidemia Morbid obesity with BMI of 40.0-44.9, adult Nausea and vomiting after administration of anesthetic agent Nocturnal hypoxemia On home oxygen therapy 2L N/C at HS only Osteoarthritis Spinal stenosis Surgical History H/O: hysterectomy History of arthroscopy of left knee History of bilateral tubal ligation History of cardiac cath ?2009--@ [facility] – [place]--no stents History of colonoscopy History of cystoscopy History of dilatation and curettage History of esophagogastroduodenoscopy (EGD) History of tooth extraction all teeth Hx of appendectomy Hx of cholecystectomy Family History Sister Family history of diabetes mellitus Sister Family history of diabetes mellitus Brother Family history of diabetes mellitus Family history of esophageal cancer Brother Family history of esophageal cancer Other No family history of adverse response to anesthesia No significant family history Social History Smoking Status: Never smoker Second Hand Exposure: No; Do You Dip or Chew Tobacco: No; Tobacco Cessation Education Requested by Patient: No Hx Alcohol Use: No Hx Substance Use: No Preferred Language: Sammarinese Communication Ability: Effective Catalog Library Assistant Required: No Beliefs That Will Affect Care: None marital status: / Current Living Situation: Family Current Living Situation Comment: Son Lives with her Feels Safe at Home: Yes Safety Concerns: Feels Safe At This Time Assistive Devices: Walker Review of Systems Review of Systems: As per HPI, all 10 systems reviewed, all other ROS negative Physical Exam Physical Exam: GENERAL: uncomfortable, chills, obese, no respiratory distress SKIN: Normal color, warm HEENT: Holly palpebral conjunctivae, no ptosis, moist buccal mucosa NECK : Supple, short neck, no tenderness CHEST : Decreased breath sounds, no tenderness HEART : RRR, no obvious murmurs ABDOMEN: Some distention, minimal epigastric tenderness EXTREMITIES : Minimal LE swelling, no LE tenderness, no other conspicuous deformities noted NEUROLOGIC : Coherent, no facial asymmetry, no other gross focality Results & Data Results & Data ([facility]) Vital Signs (Past 12 Hours) Vital Signs Temp Pulse Pulse Resp BP BP Pulse Ox 10/27/20 01:59 79 20 189/67 H 99 10/27/20 00:49 77 18 176/72 H 98 10/26/20 23:21 78 16 97 10/26/20 22:55 75 18 172/77 H 95 10/26/20 19:56 36.3 C L 78 20 189/102 H 96 Laboratory Results Laboratory Results WBC 10.29 K/uL (4.8-10.8) 10/26/20 20:09 RBC 3.77 M/uL (4.2-5.4) L 10/26/20 20:09 Hgb 11.7 g/dL (12.0-16.0) L 10/26/20 20:09 Hct 35.3 % (37-47) L 10/26/20 20:09 MCV 93.6 fL (80-100) 10/26/20 20:09 MCH 31.0 pg (25-34) 10/26/20 20:09 MCHC 33.1 g/dL (32-36) 10/26/20 20:09 RDW Std Deviation 47.6 fL (36.4-46.3) H 10/26/20 20:09 RDW Coeff of Noemy 14.0 % (11.5-14.5) 10/26/20 20:09 Plt Count 321 K/uL (130-400) 10/26/20 20:09 MPV 9.3 fL (7.4-10.4) 10/26/20 20:09 Immature Gran % (Auto) 0.2 % 10/26/20 20:09 Neut % (Auto) 74.1 % 10/26/20 20:09 Lymph % (Auto) 14.1 % 10/26/20 20:09 Frontier % (Auto) 9.2 % 10/26/20 20:09 Eos % (Auto) 2.2 % 10/26/20 20:09 Baso % (Auto) 0.2 % 10/26/20 20:09 Neut # (Auto) 7.62 K/uL (1.4-6.5) H 10/26/20 20:09 Lymph # (Auto) 1.45 K/uL (1.2-3.4) 10/26/20 20:09 Frontier # (Auto) 0.95 K/uL (0.11-0.59) H 10/26/20 20:09 Eos # (Auto) 0.23 K/uL (0-0.5) 10/26/20 20:09 Baso # (Auto) 0.02 K/uL (0-0.2) 10/26/20 20:09 Immature Gran # (Auto) 0.02 K/uL (0.00-0.02) 10/26/20 20:09 PT 10.3 Seconds (9.0-12.0) 10/26/20 20:09 INR 1.0 (0.9-1.1) 10/26/20 20:09 APTT 26.5 Seconds (21.0-31.0) 10/26/20 20:09 PTT Ratio 0.9 10/26/20 20:09 Sodium 139 mmol/L (136-145) 10/26/20 20:09 Potassium 3.9 mmol/L (3.5-5.1) 10/26/20 20:09 Chloride 105 mmol/L (98-107) 10/26/20 20:09 Carbon Dioxide 27 mmol/L (21-32) 10/26/20 20:09 Anion Gap 7.0 (3-11) 10/26/20 20:09 BUN 53 mg/dl (7-18) H 10/26/20 20:09 Creatinine 2.51 mg/dl (0.6-1.2) H 10/26/20 20:09 Est Cr Clr Drug Dosing 19.5 ml/min 10/26/20 20:09 Est GFR ( Amer) 19.4 10/26/20 20:09 Est GFR (Non-Af Amer) 16.8 10/26/20 20:09 BUN/Creatinine Ratio 21.2 (10-20) H 10/26/20 20:09 Glucose 140 mg/dl (70-99) H 10/26/20 20:09 Calcium 10.0 mg/dl (8.5-10.1) 10/26/20 20:09 Total Bilirubin 0.7 mg/dl (0.2-1) 10/26/20 20:09 AST 10 U/L (15-37) L 10/26/20 20:09 ALT 17 U/L (12-78) 10/26/20 20:09 Alkaline Phosphatase 65 U/L (45-117) 10/26/20 20:09 Troponin I < 0.015 ng/ml (0-0.045) 10/26/20 20:09 NT-Pro-B Natriuret Pep 834 pg/ml (0-1800) 10/26/20 20:09 Total Protein 7.3 gm/dl (6.4-8.2) 10/26/20 20:09 Albumin 4.1 gm/dl (3.4-5.0) 10/26/20 20:09 Globulin 3.2 gm/dl (2.5-4.0) 10/26/20 20:09 Albumin/Globulin Ratio 1.3 (0.9-2) 10/26/20 20:09 Lipase 222 U/L (73-393) 10/26/20 20:09 Urine Color Yellow 10/26/20 20:09 Urine Appearance Clear (Clear) 10/26/20 20:09 Urine pH 7.0 (4.5-7.5) 10/26/20 20:09 Ur Specific Mayo 1.009 (1.000-1.030) 10/26/20 20:09 Urine Protein Trace (Negative) H 10/26/20 20:09 Urine Glucose (UA) Negative (Negative) 10/26/20 20:09 Urine Ketones Negative (Negative) 10/26/20 20:09 Urine Blood Negative (Negative) 10/26/20 20:09 Urine Nitrite Negative (Negative) 10/26/20 20:09 Urine Bilirubin Negative (Negative) 10/26/20 20:09 Urine Urobilinogen Negative (Negative) 10/26/20 20:09 Ur Leukocyte Esterase Negative (Negative) 10/26/20 20:09 Urine WBC (Auto) 0 /hpf (0-5) 10/26/20 20:09 Urine RBC (Auto) 0-4 /hpf (0-4) 10/26/20 20:09 U Hyaline Cast (Auto) 1-5 /lpf (0-5) 10/26/20 20:09 U Epithel Cells (Auto) 5-10 /lpf (0-5) H 10/26/20 20:09 Urine Bacteria (Auto) Negative (Negative) 10/26/20 20:09 SARS-CoV-2 Ag (Rapid) Negative (Negative) 10/26/20 23:21 Diagnostic Findings Chest abdomen x-ray as per my interpretation: No infiltrate, no obstruction EKG as per my interpretation: Rate 80, NSR, normal axis, no ischemia
[2020-10-27] MEDS ORDERED: hydrALAZINE HCL 20 MG/ML VIAL IV STA (02:23)
[2020-10-27] MEDS ORDERED: ALBUMIN 25% 12.5 GM/50 ML VIAL IV ONE (02:27)
[2020-10-27] MEDS ORDERED: LACTULOSE SYRUP 20 GM/30 ML UDC PO STA (02:29)
[2020-10-27] MEDS ORDERED: FAMOTIDINE 20MG IV PUSH 20 MG/5 ML SYR IV STA (02:29)
[2020-10-27] MEDS ORDERED: GLUCOSE 40% GEL 15 GM TUBE PO PRN (04:46)
[2020-10-27] MEDS ORDERED: DEXTROSE 50% 50 ML SYRINGE IV PRN (04:46)
[2020-10-27] MEDS ORDERED: traMADol HCL 50 MG TABLET PO PRN (04:46)
[2020-10-27] MEDS ORDERED: HYDROmorphone INJ 0.5 MG/0.5 ML SYR IV PRN (04:46)
[2020-10-27] MEDS ORDERED: NITROGLYCERIN SL 0.4 MG/TAB TAB SL PRN (04:46)
[2020-10-27] MEDS ORDERED: GLUCOSE 10 TABS/TUBE PO PRN (04:46)
[2020-10-27] MEDS ORDERED: GLUCAGON FOR INJ 1 MG VIAL SQ PRN (04:46)
[2020-10-27] MEDS ORDERED: CARBOHYDRATES FOR HYPOGLYCEMIA PO PRN (04:46)
[2020-10-27] MEDS: INSULIN ASPART 100 UNITS/ML 3 ML PEN SC SCH ×5 (05:10→21:53)
[2020-10-27 05:58] LABS: Basophils # (auto) 0.02 K/uL (0-0.2); Basophils % (auto) 0.2 %; Eosinophils % (auto) 2.2 %; Hematocrit (blood only) 32.2 % (37-47); Hemoglobin 10.6 g/dL (12.0-16.0); Immature Granulocytes # (auto) 0.04 K/uL (0.00-0.02); Immature Granulocytes % (auto) 0.4 %; Lymphocytes # (auto) 1.79 K/uL (1.2-3.4); Lymphocytes % (auto) 19.7 %; Mean Corpuscular Hemoglobin 30.7 pg (25-34); Mean Corpuscular Hgb Conc 32.9 g/dL (32-36); Mean Corpuscular Volume 93.3 fL (80-100); Mean Platelet Volume 9.1 fL (7.4-10.4); Monocytes # (auto) 0.82 K/uL (0.11-0.59); Neutrophils # (auto) 6.22 K/uL (1.4-6.5); Neutrophils % (auto) 68.5 %; Platelet Count 307 K/uL (130-400); RDW Standard Deviation 47.4 fL (36.4-46.3); Red Blood Count 3.45 M/uL (4.2-5.4); White Blood Count 9.09 K/uL (4.8-10.8)
[2020-10-27] MEDS: HEPARIN SOD 5,000 UNIT/0.5 ML VIAL SQ SCH ×3 (06:02→21:55)
[2020-10-27 06:11] LABS: Partial Thromboplastin Time 26.9 Seconds (21.0-31.0)
[2020-10-27 06:25] LABS: Calcium 9.5 mg/dl (8.5-10.1); Creatinine Clr Calc Pharmacy 19.8 ml/min; Est GFR (Non-African American) 17.3; Potassium 3.5 mmol/L (3.5-5.1)
[2020-10-27 06:29] LABS: Troponin I 0.03 ng/ml (0-0.045)
--- NOTE | 2020-10-27 07:38 | Ultrasound Report ---
BILATERAL LOWER EXTREMITY VENOUS DOPPLER HISTORY: Bilateral leg swelling COMPARISON STUDY: None. FINDINGS: There is normal compressibility, flow, and augmentation within the bilateral lower extremit y deep venous systems. Complex 6 x 1 x 2 cm left popliteal cyst. IMPRESSION: No DVT within the right or left lower extremity. Complex left popliteal cyst. ACT 112: Negative or not required by law. Electronically signed by: Catrachito Cuenca M.D. 10/27/2020 7:37 AM
[2020-10-27] MEDS: hydrALAZINE TAB 50 MG TAB PO SCH ×3 (07:49→21:52)
[2020-10-27] MEDS: carvediloL 6.25 MG TAB PO SCH ×2 (07:49→21:52)
[2020-10-27] MEDS: ISOSORBIDE DINITRATE 20 MG TAB PO SCH ×2 (07:50→12:50)
[2020-10-27] MEDS: ACETAMINOPHEN 325 MG TAB PO PRN ×2 (07:53→17:17)
--- NOTE | 2020-10-27 08:06 | XRay Report ---
XR abdomen 2V w PA chest CLINICAL HISTORY: vomiting eval for obstruction COMPARISON STUDY: 11/18/2019 FINDINGS: The heart is enlarged. There is no free intraperitoneal air. There is no focal pulmonary co nsolidation. Erect and supine views the abdomen reveal no abnormally dilated loops of large or small bowel. There are no transition zones to indicate bowel obstruction. There is a surgical clip in the r ight upper quadrant possibly secondary to prior cholecystectomy. IMPRESSION: No evidence of bowel obstruction. No evidence of free air. ACT 112: Negative or not required by law. Electronically signed by: Deshaun Mcneal M.D. 10/27/2020 8:05 AM
--- NOTE | 2020-10-27 08:52 | CT Scan Report ---
CT SCAN OF THE ABDOMEN AND PELVIS WITHOUT IV CONTRAST CLINICAL HISTORY: Generalized abdominal pain. COMPARISON STUDY: Abdominal CT dated 03/23/2009. TECHNIQUE: CT scan of the abdomen and pelvis is performed from the lung bases to the proximal femora. Images are reviewed in the axial, sagittal, and coronal planes. IV contrast was not administered for this examination. Note that the examination is suboptimal without oral and IV contrast. A dose lower ing technique was utilized adhering to the principles of ALARA. CT DOSE: 1196.35 mGy.cm FINDINGS: Lung bases: The heart is enlarged and without pericardial effusion. The coronary arteries are densely calcified. There is a small hiatal hernia. There is elevation of the left hemidiaphragm with bibasil ar scarring/atelectasis. No airspace consolidation or pleural effusion is identified. Collateral vess els are incidentally noted in the right breast. Liver: The unenhanced liver is normal in size, contour, and attenuation. There is no intrahepatic lia iary ductal dilatation. A 1.6 cm cyst is seen in the left lobe. Gallbladder: Surgically absent noting clips in the gallbladder fossa. Spleen: Normal in size and attenuation. Pancreas: The unenhanced pancreas is moderately atrophic and grossly unremarkable. 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 The right adrenal gland is n ormal in appearance. Kidneys: The unenhanced kidneys are atrophic and without hydronephrosis. There are no renal calculi i dentified. There is a 4.0 x 3.7 cm rounded mass lesion identified in the interpolar left kidney seen on image #154. This is new from 03/23/2009 and concerning for neoplasm. Additional scattered subcentime ter cortical hypodensities are indeterminant. Abdominal vasculature: The abdominal aorta is normal in course and caliber noting advanced atheroscle rotic calcification. Bowel: There is moderate colonic diverticulosis without CT evidence of acute diverticulitis. No bowel obstruction is identified. The appendix is not identified. Peritoneum: There is no intraperitoneal free air or abdominal ascites. Lymphadenopathy: None. Pelvic viscera: The bladder is normal as visualized. The uterus is surgically absent. No adnexal lesi on is seen. Skeletal structures: The skeletal structures are osteopenic. There is mild to moderate lumbosacral sp ondylosis. No lytic or blastic lesions are seen. IMPRESSION: 1. There are no acute infectious or inflammatory findings in the abdomen or pelvis. 2. A 4.0 cm rounded mass lesion in the interpolar left kidney is new from 2009 and highly concerning for neoplasm. Top differential considerations are renal cell carcinoma or possibly urothelial neoplas m. Consider a nonemergent contrast enhanced renal protocol CT or MRI for further assessment as well a s urology follow-up. 3. Moderate colonic diverticulosis without CT evidence of acute diverticulitis. 4. Cardiomegaly. 5. Additional findings as above. ACT 112: Negative or not required by law. Electronically signed by: Marco Morocho M.D. 10/27/2020 9:15 AM
[2020-10-27] MEDS ORDERED: hydrALAZINE TAB 50 MG TAB PO SCH (09:00)
[2020-10-27] MEDS ORDERED: allopurinoL 100 MG TAB PO SCH (09:00)
[2020-10-27] MEDS ORDERED: carvediloL 6.25 MG TAB PO SCH (09:00)
[2020-10-27] MEDS: FAMOTIDINE 20 MG TAB PO SCH ×2 (09:56→21:52)
[2020-10-27] MEDS: DOCUSATE SODIUM/SENNA 50/8.6MG TAB PO SCH ×2 (09:56→21:52)
[2020-10-27] MEDS: ASPIRIN 81 MG ECTAB PO SCH (09:57)
[2020-10-27] MEDS: DICLOFENAC SOD 1% GEL 100 GM TUBE EXT SCH ×4 (10:00→21:54)
[2020-10-27] MEDS ORDERED: ONDANSETRON INJ 2 MG/ML 2 ML VIAL IV PRN (10:02)
--- NOTE | 2020-10-27 12:15 | Electrocardiogram Report ---
Test Reason : Blood Pressure : / mmHG Vent. Rate : 080 BPM Atrial Rate : 080 BPM P-R Int : 172 ms QRS Dur : 100 ms QT Int : 388 ms P-R-T Axes : 055 011 051 degrees QTc Int : 447 ms Normal sinus rhythm Nonspecific ST abnormality Abnormal ECG When compared with ECG of 21-NOV-2019 06:51, No significant change was found Confirmed by Franco Villagran ([id number]) on 10/27/2020 12:15:10 PM Referred By: REFERRED SELF Confirmed By:Franco Villagran
--- NOTE | 2020-10-27 12:27 | Cardiology Consultation ---
Date of Consultation October 27, 2020 History of Present Illness Requesting Physician: Dr Overton Attending Physician: Constanza Overton, Allergies Allergy/AdvReac Type Severity Reaction Status Date / Time No Known Allergies Allergy Verified 10/26/20 22:13 Home Medications Medication Instructions Recorded Confirmed Type acetaminophen [Tylenol Extra 1,000 mg PO AMPM 12/30/18 10/26/20 History Strength] aspirin 81 mg PO QAM 12/30/18 10/26/20 History isosorbide dinitrate 20 mg PO TID 12/30/18 10/26/20 History rosuvastatin 10 mg PO QPM 12/30/18 10/26/20 History Oxygen Home #1 ea 05/31/19 09/09/20 Rx insulin human U-100 NPH-regulr 55 - 60 units SUBCUT BID ml 10/21/19 10/26/20 History 70-30 mix 100 unit/mL subcutaneous susp famotidine [Pepcid] 20 mg PO QPM 11/18/19 10/26/20 History carvedilol 12.5 mg tablet 18.75 mg PO BID tab 05/11/20 10/26/20 History lisinopril 40 mg tablet 40 mg PO QAM #90 tab 05/11/20 10/26/20 Rx ergocalciferol (vitamin D2) 50,000 unit PO MONTHLY 06/23/20 10/26/20 History lidocaine [Salonpas (lidocaine)] 1 patch TOPICAL QAM 06/23/20 10/26/20 History furosemide 40 mg tablet 40 mg PO .COMPLEX 08/12/20 10/26/20 History allopurinol 100 mg tablet 100 mg PO DAILY #60 tab 09/09/20 10/26/20 Rx diclofenac sodium 1 % topical gel 4 g TOP QID #100 g 09/09/20 10/26/20 Rx hydralazine 50 mg tablet 50 mg PO TID #270 tab 09/09/20 10/26/20 Rx sennosides-docusate sodium [Senna 1 tab-cap PO HS 10/26/20 10/26/20 History with Docusate Sodium] Patient History Medical History (Updated 10/27/20 @ 11:34 by Flavio Doherty MD) Atrial fibrillation follows with [facility] Nieto CHF (congestive heart failure) Chronic back pain Chronic kidney disease (CKD), stage IV (severe) Diabetes mellitus, type 2 Hearing deficit History of kidney stones HTN (hypertension) Hyperlipidemia Morbid obesity with BMI of 40.0-44.9, adult Nausea and vomiting after administration of anesthetic agent Nocturnal hypoxemia On home oxygen therapy 2L N/C at HS only Osteoarthritis Spinal stenosis Surgical History H/O: hysterectomy History of arthroscopy of left knee History of bilateral tubal ligation History of cardiac cath ?2009--@ [facility] [place]no st[place] History of colonoscopy History of cystoscopy History of dilatation and curettage History of esophagogastroduodenoscopy (EGD) History of tooth extraction all teeth Hx of appendectomy Hx of cholecystectomy Family History Sister Family history of diabetes mellitus Sister Family history of diabetes mellitus Brother Family history of diabetes mellitus Family history of esophageal cancer Brother Family history of esophageal cancer Other No family history of adverse response to anesthesia No significant family history Social History Smoking Status: Never smoker Second Hand Exposure: No; Do You Dip or Chew Tobacco: No; Tobacco Cessation Education Requested by Patient: No Hx Alcohol Use: No Hx Substance Use: No Preferred Language: Cook Islander Communication Ability: Effective Substitute Bus Driver Required: No Beliefs That Will Affect Care: None marital status: / Current Living Situation: Family Current Living Situation Comment: Son Lives with her Feels Safe at Home: Yes Safety Concerns: Feels Safe At This Time Assistive Devices: Walker Results & Data ([facility]) Vital Signs (Past 12 Hours) Vital Signs Temp Pulse Pulse Resp BP BP Pulse Ox 10/27/20 11:29 36.5 C 75 20 131/69 93 10/27/20 08:16 75 10/27/20 07:21 36.4 C L 77 19 161/70 H 97 10/27/20 05:28 36.4 C L 78 18 187/82 H 96 10/27/20 03:17 72 20 157/62 H 96 10/27/20 03:00 73 18 142/54 H 99 10/27/20 02:35 70 18 153/61 H 99 10/27/20 01:59 79 20 189/67 H 99 10/27/20 00:49 77 18 176/72 H 98
[2020-10-27] MEDS ORDERED: PROMETHAZINE HCL 12.5 MG SUPP PR STA (12:28)
--- NOTE | 2020-10-27 12:37 | Cardiology Consultation ---
Date of Consultation October 27, 2020 Assessment & Plan (1) Hypertensive heart and chronic kidney disease with acute on chronic right- sided heart failure: Patient is a complex 85-year-old female with longstanding significant hypertensive heart and renal disease chronic diastolic heart failure. Patient maintaining delicate balance of reduced renal perfusion and volume overload. Presents now with increased abdominal bloating breathlessness and marked hypertension. Symptoms associated with chest pressure sensation not specifically anginal. Still noting fullness in abdomen and increased girth. Blood pressures markedly elevated on presentation but improved with IV hydralazine and single dose of IV furosemide Prior attempts to increase carvedilol or poorly tolerated. Use of amlodipine resulted in marked edema Symptoms currently not suggestive of acute coronary syndrome. EKG without acute changes and despite renal insufficiency troponins within normal limit. Patient very high risk for any coronary intervention Plan: Give additional dose of IV furosemide 40 mg today then plan on resuming usual oral dose tomorrow Increase isosorbide dinitrate to 40 mg 3 times daily (2) Hypertensive urgency: (3) Chronic kidney disease (CKD), stage IV (severe): (4) Abdominal pain: (5) Left bundle branch block: Intermittent, currently not present History of Present Illness Reason for Consultation: Abdominal bloating, chest pain Requesting Physician: Dr. Overton Attending Physician: Constanza Overton, DO History of Present Illness Patient is an 85-year-old female with ongoing multiple medical issues which include 1. Hypertension, hypertensive heart disease 2. Diastolic heart failure 3. Preserved LV systolic function 4. Angiographically normal coronaries by April 1999 cardiac catheterization 5. Palpitations - premature atrial/ventricular beats. 6. Intermittent left bundle branch block 7. Type II diabetes mellitus 8. Stage IV chronic kidney disease, followed by Dr. Childress 9. Nocturnal hypoxemia, treated with supplemental oxygen therapy at 2 liters/minute via nasal cannula through Dr. Armstrong 10. Dyslipidemia 11. GERD. Reflux. History of hiatal hernia. 12. Anxiety Patient presents this admission noting symptoms last night of abdominal pressure and chest pressure with persistent abdominal pressure this morning. Feels abdomen is distended and full. Does have difficulties with c onstipation/obstipation. Weight has been up and down trended slightly upward recently. Had reduction in diuretic dosing in July due to renal insufficiency. Currently feels more short of breath and needed feels stress and anxiety may be contributing to complaints. As well as to elevated blood pressure No bleeding difficulties. No melena hematochezia. No fevers chills or unexplained infections Patient on presentation to the emergency room last evening was given IV hydralazine and IV Lasix for marked hypertension, diastolic volume overload Allergies Allergy/AdvReac Type Severity Reaction Status Date / Time No Known Allergies Allergy Verified 10/26/20 22:13 Home Medications Medication Instructions Recorded Confirmed Type acetaminophen [Tylenol Extra 1,000 mg PO AMPM 12/30/18 10/26/20 History Strength] aspirin 81 mg PO QAM 12/30/18 10/26/20 History isosorbide dinitrate 20 mg PO TID 12/30/18 10/26/20 History rosuvastatin 10 mg PO QPM 12/30/18 10/26/20 History Oxygen Home #1 ea 05/31/19 09/09/20 Rx insulin human U-100 NPH-regulr 55 - 60 units SUBCUT BID ml 10/21/19 10/26/20 History 70-30 mix 100 unit/mL subcutaneous susp famotidine [Pepcid] 20 mg PO QPM 11/18/19 10/26/20 History carvedilol 12.5 mg tablet 18.75 mg PO BID tab 05/11/20 10/26/20 History lisinopril 40 mg tablet 40 mg PO QAM #90 tab 05/11/20 10/26/20 Rx ergocalciferol (vitamin D2) 50,000 unit PO MONTHLY 06/23/20 10/26/20 History lidocaine [Salonpas (lidocaine)] 1 patch TOPICAL QAM 06/23/20 10/26/20 History furosemide 40 mg tablet 40 mg PO .COMPLEX 08/12/20 10/26/20 History allopurinol 100 mg tablet 100 mg PO DAILY #60 tab 09/09/20 10/26/20 Rx diclofenac sodium 1 % topical gel 4 g TOP QID #100 g 09/09/20 10/26/20 Rx hydralazine 50 mg tablet 50 mg PO TID #270 tab 09/09/20 10/26/20 Rx sennosides-docusate sodium [Senna 1 tab-cap PO HS 10/26/20 10/26/20 History with Docusate Sodium] Patient History Medical History (Updated 10/28/20 @ 01:16 by Constanza Overton DO) CHF (congestive heart failure) Chronic back pain Chronic kidney disease (CKD), stage IV (severe) Diabetes mellitus, type 2 Hearing deficit History of kidney stones HTN (hypertension) Hyperlipidemia Morbid obesity with BMI of 40.0-44.9, adult Nausea and vomiting after administration of anesthetic agent Nocturnal hypoxemia On home oxygen therapy 2L N/C at HS only Osteoarthritis Spinal stenosis Surgical History H/O: hysterectomy History of arthroscopy of left knee History of bilateral tubal ligation History of cardiac cath ?2009--@ [facility] – [place]--no stents History of colonoscopy History of cystoscopy History of dilatation and curettage History of esophagogastroduodenoscopy (EGD) History of tooth extraction all teeth Hx of appendectomy Hx of cholecystectomy Family History Sister Family history of diabetes mellitus Sister Family history of diabetes mellitus Brother Family history of diabetes mellitus Family history of esophageal cancer Brother Family history of esophageal cancer Other No family history of adverse response to anesthesia No significant family history Social History Smoking Status: Never smoker Second Hand Exposure: No; Do You Dip or Chew Tobacco: No; Tobacco Cessation Education Requested by Patient: No Hx Alcohol Use: No Hx Substance Use: No Preferred Language: Amharic Communication Ability: Effective Care Process Manager Required: No Beliefs That Will Affect Care: None marital status: / Current Living Situation: Family Current Living Situation Comment: Son Lives with her Feels Safe at Home: Yes Safety Concerns: Feels Safe At This Time Assistive Devices: Glasses, Oxygen - at Night and Walker Review of Systems Review of Systems: All systems reviewed & are unremarkable except as noted in HPI & below Physical Exam Constitutional: Anxious obese white female in no acute distress currently Eyes: PERRL, conjunctivae normal, anicteric sclerae ENMT: external ear and nose normal, oropharynx normal Neck: trachea midline, no thyromegaly Respiratory: normal respiratory effort, lungs clear to auscultation Auscultation: + diminished lung sounds (Mild) Cardiovascular: Rate/Rhythm: regular rate and regular rhythm Heart Sounds: normal S1 and normal S2; no gallop and no murmur Palpation: normal PMI Vessels: normal carotid upstroke and radial pulses present; no JVD and no carotid bruit Extremities: + edema (Trace) Gastrointestinal (Abdomen): Inspection/Auscultation: + abdomen distended (Mildly distended) Musculoskeletal: no cyanosis or clubbing, extremities motor strength 5/5 Skin: no rashes, warm and dry Neurologic: PERRL, EOMI, accommodation nl, no face palsy, no dysarthria Psychiatric: A+Ox3, euthymic affect Results & Data ([facility]) Vital Signs (Past 12 Hours) Vital Signs Temp Pulse Pulse Resp BP BP Pulse Ox 10/27/20 11:29 36.5 C 75 20 131/69 93 10/27/20 08:16 75 10/27/20 07:21 36.4 C L 77 19 161/70 H 97 10/27/20 05:28 36.4 C L 78 18 187/82 H 96 10/27/20 03:17 72 20 157/62 H 96 10/27/20 03:00 73 18 142/54 H 99 10/27/20 02:35 70 18 153/61 H 99 10/27/20 01:59 79 20 189/67 H 99 10/27/20 00:49 77 18 176/72 H 98 Laboratory Results Laboratory Results - last 24 hr 10/26/20 10/26/20 10/26/20 20:09 20:09 20:09 WBC 10.29 RBC 3.77 L Hgb 11.7 L Hct 35.3 L MCV 93.6 MCH 31.0 MCHC 33.1 RDW Std Deviation 47.6 H RDW Coeff of Noemy 14.0 Plt Count 321 MPV 9.3 Immature Gran % (Auto) 0.2 Neut % (Auto) 74.1 Lymph % (Auto) 14.1 Love % (Auto) 9.2 Eos % (Auto) 2.2 Baso % (Auto) 0.2 Neut # (Auto) 7.62 H Lymph # (Auto) 1.45 Love # (Auto) 0.95 H Eos # (Auto) 0.23 Baso # (Auto) 0.02 Immature Gran # (Auto) 0.02 PT INR APTT PTT Ratio Sodium 139 Potassium 3.9 Chloride 105 Carbon Dioxide 27 Anion Gap 7.0 BUN 53 H Creatinine 2.51 H Est Cr Clr Drug Dosing 19.5 Est GFR ( Amer) 19.4 Est GFR (Non-Af Amer) 16.8 BUN/Creatinine Ratio 21.2 H Glucose 140 H POC Glucose Calcium 10.0 Total Bilirubin 0.7 AST 10 L ALT 17 Alkaline Phosphatase 65 Troponin I < 0.015 NT-Pro-B Natriuret Pep 834 Total Protein 7.3 Albumin 4.1 Globulin 3.2 Albumin/Globulin Ratio 1.3 Lipase 222 Urine Color Yellow Urine Appearance Clear Urine pH 7.0 Ur Specific [place] 1.009 Urine Protein Trace H Urine Glucose (UA) Negative Urine Ketones Negative Urine Blood Negative Urine Nitrite Negative Urine Bilirubin Negative Urine Urobilinogen Negative Ur Leukocyte Esterase Negative Urine WBC (Auto) 0 Urine RBC (Auto) 0-4 U Hyaline Cast (Auto) 1-5 U Epithel Cells (Auto) 5-10 H Urine Bacteria (Auto) Negative SARS-CoV-2 Ag (Rapid) 10/26/20 10/26/20 10/27/20 20:09 23:21 04:49 WBC RBC Hgb Hct MCV MCH MCHC RDW Std Deviation RDW Coeff of Noemy Plt Count MPV Immature Gran % (Auto) Neut % (Auto) Lymph % (Auto) Love % (Auto) Eos % (Auto) Baso % (Auto) Neut # (Auto) Lymph # (Auto) Love # (Auto) Eos # (Auto) Baso # (Auto) Immature Gran # (Auto) PT 10.3 INR 1.0 APTT 26.5 PTT Ratio 0.9 Sodium Potassium Chloride Carbon Dioxide Anion Gap BUN Creatinine Est Cr Clr Drug Dosing Est GFR ( Amer) Est GFR (Non-Af Amer) BUN/Creatinine Ratio Glucose POC Glucose 142 H Calcium Total Bilirubin AST ALT Alkaline Phosphatase Troponin I NT-Pro-B Natriuret Pep Total Protein Albumin Globulin Albumin/Globulin Ratio Lipase Urine Color Urine Appearance Urine pH Ur Specific [place] Urine Protein Urine Glucose (UA) Urine Ketones Urine Blood Urine Nitrite Urine Bilirubin Urine Urobilinogen Ur Leukocyte Esterase Urine WBC (Auto) Urine RBC (Auto) U Hyaline Cast (Auto) U Epithel Cells (Auto) Urine Bacteria (Auto) SARS-CoV-2 Ag (Rapid) Negative 10/27/20 10/27/20 10/27/20 05:42 05:42 05:42 WBC 9.09 RBC 3.45 L Hgb 10.6 L Hct 32.2 L MCV 93.3 MCH 30.7 MCHC 32.9 RDW Std Deviation 47.4 H RDW Coeff of [place] 14.0 Plt Count 307 MPV 9.1 Immature Gran % (Auto) 0.4 Neut % (Auto) 68.5 Lymph % (Auto) 19.7 Love % (Auto) 9.0 Eos % (Auto) 2.2 Baso % (Auto) 0.2 Neut # (Auto) 6.22 Lymph # (Auto) 1.79 Love # (Auto) 0.82 H Eos # (Auto) 0.20 Baso # (Auto) 0.02 Immature Gran # (Auto) 0.04 H PT INR APTT 26.9 PTT Ratio 1.0 Sodium 139 Potassium 3.5 Chloride 106 Carbon Dioxide 29 Anion Gap 4.0 BUN 49 H Creatinine 2.45 H Est Cr Clr Drug Dosing 19.8 Est GFR ( Amer) 20.0 Est GFR (Non-Af Amer) 17.3 BUN/Creatinine Ratio 20.0 Glucose 144 H POC Glucose Calcium 9.5 Total Bilirubin AST ALT Alkaline Phosphatase Troponin I 0.030 NT-Pro-B Natriuret Pep Total Protein Albumin Globulin Albumin/Globulin Ratio Lipase Urine Color Urine Appearance Urine pH Ur Specific [place] Urine Protein Urine Glucose (UA) Urine Ketones Urine Blood Urine Nitrite Urine Bilirubin Urine Urobilinogen Ur Leukocyte Esterase Urine WBC (Auto) Urine RBC (Auto) U Hyaline Cast (Auto) U Epithel Cells (Auto) Urine Bacteria (Auto) SARS-CoV-2 Ag (Rapid) 10/27/20 10/27/20 07:27 11:28 WBC RBC Hgb Hct MCV MCH MCHC RDW Std Deviation RDW Coeff of Noemy Plt Count MPV Immature Gran % (Auto) Neut % (Auto) Lymph % (Auto) Love % (Auto) Eos % (Auto) Baso % (Auto) Neut # (Auto) Lymph # (Auto) Love # (Auto) Eos # (Auto) Baso # (Auto) Immature Gran # (Auto) PT INR APTT PTT Ratio Sodium Potassium Chloride Carbon Dioxide Anion Gap BUN Creatinine Est Cr Clr Drug Dosing Est GFR ( Amer) Est GFR (Non-Af Amer) BUN/Creatinine Ratio Glucose POC Glucose 139 H 199 H Calcium Total Bilirubin AST ALT Alkaline Phosphatase Troponin I NT-Pro-B Natriuret Pep Total Protein Albumin Globulin Albumin/Globulin Ratio Lipase Urine Color Urine Appearance Urine pH Ur Specific [place] Urine Protein Urine Glucose (UA) Urine Ketones Urine Blood Urine Nitrite Urine Bilirubin Urine Urobilinogen Ur Leukocyte Esterase Urine WBC (Auto) Urine RBC (Auto) U Hyaline Cast (Auto) U Epithel Cells (Auto) Urine Bacteria (Auto) SARS-CoV-2 Ag (Rapid) (1) Abdominal pain Abdominal location: generalized Qualified Code(s): R10.84 - Generalized abdominal pain
--- NOTE | 2020-10-27 13:17 | Hospitalist Progress Note ---
Date of Service October 27, 2020 Assessment & Plan (1) Hypertensive urgency: BP improved with IV hydralazine and IV furosemide overnight. Cardiology was consulted and added Isordil TID to regimen. Per records, previous amlodipine use caused marked edema. (2) Hypertensive heart and chronic kidney disease with acute on chronic right- sided heart failure: She has undergone a recent diuretic decrease per her reel assembler over the last couple of months in an effort to maintain a balance between reduced renal perfusion and volume overload. Additional diuretics were given this afternoon, and will monitor for response. Scheduled diuretics were not ordered at this time pending reevaluation. (3) Renal neoplasm: A new 4 cm rounded mass lesion in the interpolar left kidney was found on CT abdomen pelvis and is highly concerning for neoplasm such as renal cell carcinoma or possibly urothelial neoplasm. Urology was contacted and recommends urine cytology and close outpatient follow-up with them in the clinic. (4) Abdominal bloating: multifactorial including heart failure exacerbation +/- excessive milk and dairy in her diet vs medication reaction (allopurinol is new) vs acute gastritis vs chronic constipation. Hold allopurinol. No milk products. Supportive care. (5) Chronic constipation: Stool softeners, laxatives as needed. Encourage ambulation as tolerated. (6) DVT prophylaxis: Full code Heparin Dispo-continue hospitalization and PCU monitoring. Constanza Overton DO [facility] Hospitalist Admission and Anticipated Discharge Date Admission Date: October 27, 2020 Subjective cc: 85 yo F with reports of worsening shortness of breath over the past 3 weeks. Denies weight gain, two pillow orthopnea and occasional PND at night. Recently decreased diuretics from 4 tabs daily to 1.5 tabs daily per her reel assembler as outpatient (1-2 months ago). Also recently started allopurinol. She has felt a progressive shortness of breath and overall functional decline, as well as an increase in GI bloating resulting in two episodes of vomiting, once yesterday and once this morning. Reports chronic constipation with some recent loose stools this morning after laxative use overnight. She denies chest pain. She reports occasional episodes of shortnes of breath which make her anxious. She reports not eating much by mouth in the last few weeks because of the bloating. She takes pepcid at home twice daily and denies any heartburn symptoms or blood per rectum. She reports depending on dairy foods recently such as cottage cheese, cheese, and yogurt and she also takes her medications with milk every day. Review of Systems Review of Systems: All systems reviewed & are unremarkable except as noted in Subjective Physical Exam Physical Exam: CONSTITUTIONAL: obese, vitals as above, generally well- appearing EYES: normal conjunctivae, no scleral icterus ENT: external ear and nose normal, oropharynx clear, mucous membranes are dry. NECK: obese RESPIRATORY: crackles at the bases bilaterally with otherwise good air movement that is clear throughout. No wheezing or increased work of breathing. CARDIOVASCULAR: regular rate and rhythm, S1 and 2 heard without murmurs, gallops or rubs, no JVD, no peripheral edema GASTROINTESTINAL: soft, nontender, nondistended, no guarding-generally feels unwell MUSCULOSKELETAL: strength 5/5 throughout, head is normocephalic and atraumatic SKIN: warm and dry NEUROLOGIC: CN 2-12 grossly intact, normal cognition, normal speech, no gross focal deficits. PSYCHIATRIC: alert cooperative and oriented to person, place and time. Results & Data Results & Data ([facility]) Vital Signs (Past 12 Hours) Vital Signs Temp Pulse Pulse Resp BP BP Pulse Ox 10/27/20 11:29 36.5 C 75 20 131/69 93 10/27/20 08:16 75 10/27/20 07:21 36.4 C L 77 19 161/70 H 97 10/27/20 05:28 36.4 C L 78 18 187/82 H 96 10/27/20 03:17 72 20 157/62 H 96 10/27/20 03:00 73 18 142/54 H 99 10/27/20 02:35 70 18 153/61 H 99 10/27/20 01:59 79 20 189/67 H 99 Laboratory Results Short CBC 10/26/20 10/27/20 Range/Units 20:09 05:42 WBC 10.29 9.09 (4.8-10.8) K/uL Hgb 11.7 L 10.6 L (12.0-16.0) g/dL Hct 35.3 L 32.2 L (37-47) % Plt Count 321 307 (130-400) K/uL BMP 10/26/20 10/27/20 20:09 05:42 Sodium 139 139 Potassium 3.9 3.5 Chloride 105 106 Carbon Dioxide 27 29 BUN 53 H 49 H Creatinine 2.51 H 2.45 H Glucose 140 H 144 H Calcium 10.0 9.5 Cardiac Enzymes 10/26/20 10/27/20 Range/Units 20:09 05:42 Troponin I < 0.015 0.030 (0-0.045) ng/ml Liver Function 10/26/20 Range/Units 20:09 Total Bilirubin 0.7 (0.2-1) mg/dl AST 10 L (15-37) U/L ALT 17 (12-78) U/L Alkaline Phosphatase 65 (45-117) U/L Albumin 4.1 (3.4-5.0) gm/dl Urine 10/26/20 Range/Units 20:09 Urine Color Yellow Urine Appearance Clear (Clear) Urine pH 7.0 (4.5-7.5) Ur Specific [place] 1.009 (1.000-1.030) Urine Protein Trace H (Negative) Urine Glucose (UA) Negative (Negative) Medications Administered Current Inpatient Medications Acetaminophen (Acetaminophen 325 Mg Tab) 650 mg PO Q4H PRN PRN Reason: Pain or Fever Stop: 11/26/20 04:45 Last Admin: 10/27/20 07:53 Dose: 650 mg Documented by: Allopurinol (Allopurinol 100 Mg Tab) 100 mg PO DAILY [facility] Stop: 11/26/20 08:59 Last Admin: 10/27/20 09:57 Dose: 100 mg Documented by: Aspirin (Aspirin 81 Mg Ectab) 81 mg PO QAM [facility] Stop: 11/26/20 08:59 Last Admin: 10/27/20 09:57 Dose: 81 mg Documented by: Carvedilol (Carvedilol 6.25 Mg Tab) 18.75 mg PO BID [facility] Stop: 11/26/20 07:04 Last Admin: 10/27/20 07:49 Dose: 18.75 mg Documented by: Dextrose (Dextrose 50% 50 Ml Syringe) 25 - 50 ml IV UD PRN; Protocol PRN Reason: Hypoglycemia Protocol Stop: 11/26/20 04:45 Diclofenac Sodium (Diclofenac Sod 1% Gel 100 Gm Tube) 4 gm EXT QID [facility] Stop: 11/26/20 08:59 Last Admin: 10/27/20 10:00 Dose: 4 gm Documented by: Famotidine (Famotidine 20 Mg Tab) 20 mg PO BID [facility] Stop: 11/26/20 08:59 Last Admin: 10/27/20 09:56 Dose: 20 mg Documented by: Glucagon (Glucagon For Inj 1 Mg Vial) 1 mg SQ UD PRN; Protocol PRN Reason: Hypoglycemia Protocol Stop: 11/26/20 04:45 Glucose (Glucose 10 Tabs/Tube) 4 - 8 tabs PO UD PRN; Protocol PRN Reason: Hypoglycemia Protocol Stop: 11/26/20 04:45 Glucose (Glucose 40% Gel 15 Gm Tube) 15 - 30 gm PO UD PRN; Protocol PRN Reason: Hypoglycemia Protocol Stop: 11/26/20 04:45 Heparin Sodium (Porcine) (Heparin Sod 5,000 Unit/0.5 Ml Vial) 5,000 units SQ Q8 [facility] Stop: 11/26/20 05:59 Last Admin: 10/27/20 06:02 Dose: 5,000 units Documented by: Hydralazine HCl (Hydralazine Tab 50 Mg Tab) 50 mg PO TID [facility] Stop: 11/26/20 07:04 Last Admin: 10/27/20 07:49 Dose: 50 mg Documented by: Hydromorphone HCl (Hydromorphone Inj 0.5 Mg/0.5 Ml Syr) 0.25 mg IV Q4H PRN PRN Reason: Pain Stop: 11/10/20 04:45 Insulin Aspart (Insulin Aspart 100 Units/Ml 3 Ml Pen) 0 units SC ACHS [facility] Stop: 11/26/20 04:45 Last Admin: 10/27/20 12:43 Dose: 1 units Documented by: Isosorbide Dinitrate (Isosorbide Dinitrate 40 Mg Tab) 40 mg PO TID@0700,1200,1700 [facility] Stop: 11/26/20 16:59 Miscellaneous (Carbohydrates For Hypoglycemia ) 15 - 30 gm PO UD PRN PRN Reason: Hypoglycemia Protocol Stop: 11/26/20 04:45 Nitroglycerin (Nitroglycerin Sl 0.4 Mg/Tab Tab) 0.4 mg SL UD PRN PRN Reason: Chest Pain Stop: 11/26/20 04:45 Ondansetron HCl (Ondansetron Inj 2 Mg/Ml 2 Ml Vial) 4 mg IV Q8H PRN PRN Reason: Nausea Stop: 11/26/20 10:01 Last Admin: 10/27/20 10:15 Dose: 4 mg Documented by: Polyethylene Glycol (Polyethylene (Miralax) 17 Gm Pack) 17 gm PO DAILY PRN PRN Reason: Constipation Stop: 11/26/20 13:17 Promethazine HCl (Promethazine Hcl 12.5 Mg Supp) 12.[address] Q6H PRN PRN Reason: Nausea And Vomiting Stop: 11/26/20 13:17 Rosuvastatin Calcium (Rosuvastatin Calcium 10 Mg Tab) 10 mg PO QPM [facility] Stop: 11/26/20 20:59 Senna/Docusate Sodium (Docusate Sodium/Senna 50/8.6mg Tab) 1 tab PO BID [facility] Stop: 11/26/20 08:59 Last Admin: 10/27/20 09:56 Dose: 1 tab Documented by: Tramadol HCl (Tramadol Hcl 50 Mg Tablet) 25 - 50 mg PO Q4H PRN PRN Reason: Pain Stop: 11/26/20 04:45
[2020-10-27] MEDS ORDERED: PROMETHAZINE HCL 12.5 MG SUPP PR PRN (13:18)
[2020-10-27] MEDS ORDERED: POLYETHYLENE (MIRALAX) 17 GM PACK PO PRN (13:18)
[2020-10-27] MEDS ORDERED: FUROSEMIDE 40 MG in SYRINGE 0 ML IV ONE (13:45)
[2020-10-27] MEDS: ISOSORBIDE DINITRATE 40 MG TAB PO SCH (16:00)
[2020-10-27] MEDS: ROSUVASTATIN CALCIUM 10 MG TAB PO SCH (21:53)
[2020-10-28] MEDS: HEPARIN SOD 5,000 UNIT/0.5 ML VIAL SQ SCH ×3 (06:18→21:06)
[2020-10-28] MEDS: ISOSORBIDE DINITRATE 40 MG TAB PO SCH ×3 (06:19→17:04)
[2020-10-28] MEDS: INSULIN ASPART 100 UNITS/ML 3 ML PEN SC SCH ×4 (07:50→21:13)
[2020-10-28] MEDS: hydrALAZINE TAB 50 MG TAB PO SCH ×3 (08:44→21:07)
[2020-10-28] MEDS: carvediloL 6.25 MG TAB PO SCH ×2 (08:44→21:07)
[2020-10-28] MEDS: ASPIRIN 81 MG ECTAB PO SCH (08:45)
[2020-10-28] MEDS: FAMOTIDINE 20 MG TAB PO SCH ×2 (08:46→21:09)
[2020-10-28] MEDS: DICLOFENAC SOD 1% GEL 100 GM TUBE EXT SCH ×4 (08:46→21:10)
[2020-10-28] MEDS: DOCUSATE SODIUM/SENNA 50/8.6MG TAB PO SCH ×2 (08:46→21:06)
[2020-10-28] MEDS: ACETAMINOPHEN 325 MG TAB PO PRN (12:12)
--- NOTE | 2020-10-28 13:31 | Cardiology Progress Note ---
Date of Service October 28, 2020 Assessment & Plan (1) Hypertensive heart and chronic kidney disease with acute on chronic right- sided heart failure: Patient is a complex 85-year-old female with longstanding significant hypertensive heart and renal disease chronic diastolic heart failure. Patient maintaining delicate balance of reduced renal perfusion and volume overload. Presents now with increased abdominal bloating breathlessness and marked hypertension. Symptoms associated with chest pressure sensation not specifically anginal. Still noting fullness in abdomen and increased girth. Blood pressures markedly elevated on presentation but improved with IV hydralazine and single dose of IV furosemide Prior attempts to increase carvedilol or poorly tolerated. Use of amlodipine resulted in marked edema Symptoms currently not suggestive of acute coronary syndrome. EKG without acute changes and despite renal insufficiency troponins within normal limit. Patient very high risk for any coronary intervention Plan: Patient improved with 2 doses of IV furosemide treatment of underlying GI issues as well. Blood pressure improved with increased isosorbide Check BMP today, resume furosemide at 40 mg twice daily Patient with outpatient appointment with nephrology tomorrow, cardiology next week (2) Hypertensive urgency: (3) Chronic kidney disease (CKD), stage IV (severe): (4) Abdominal pain: (5) Left bundle branch block: Intermittent, currently not present Admission and Anticipated Discharge Date Admission Date: October 28, 2020 Subjective Patient was seen and examined, chart, medications, telemetry reviewed Patient improved this morning less abdominal distention. No nausea. Blood pressures better controlled. No chest pains or discomfort. Weight down at least 2 kg. Oxygenating well on room male currently Physical Exam Eyes: PERRL, conjunctivae normal, anicteric sclerae ENMT: external ear and nose normal, oropharynx normal Neck: trachea midline, no thyromegaly Respiratory: normal respiratory effort, lungs clear to auscultation Auscultation: + diminished lung sounds (Mild) Cardiovascular: Rate/Rhythm: regular rate and regular rhythm Heart Sounds: normal S1 and normal S2; no gallop and no murmur Palpation: normal PMI Vessels: normal carotid upstroke and radial pulses present; no JVD and no nielson tid bruit Extremities: + edema (Trace) Gastrointestinal (Abdomen): Inspection/Auscultation: + abdomen distended (Mildly distended) Musculoskeletal: no cyanosis or clubbing, extremities motor strength 5/5 Skin: no rashes, warm and dry Neurologic: PERRL, EOMI, accommodation nl, no face palsy, no dysarthria Psychiatric: A+Ox3, euthymic affect Results & Data ([facility]) Vital Signs (Past 12 Hours) Vital Signs Temp Pulse Pulse Pulse Resp BP BP 10/28/20 12:30 36.3 C L 76 20 121/70 10/28/20 09:03 78 10/28/20 07:15 36.6 C 67 18 132/70 10/28/20 06:18 127/66 10/28/20 04:24 36.7 C 79 16 170/73 H Pulse Ox 10/28/20 12:30 93 10/28/20 09:03 10/28/20 07:15 96 10/28/20 06:18 10/28/20 04:24 92 Laboratory Results Laboratory Results - last 24 hr 10/27/20 10/27/20 10/28/20 16:18 20:22 07:40 POC Glucose 224 H 171 H 166 H 10/28/20 12:00 POC Glucose 193 H (1) Abdominal pain Abdominal location: generalized Qualified Code(s): R10.84 - Generalized abdominal pain
[2020-10-28 15:15] LABS: BUN Creatinine Ratio 16.6 (10-20); Calcium 9.1 mg/dl (8.5-10.1); Creatinine Clr Calc Pharmacy 17.2 ml/min; Est GFR (African American) 17.1; Est GFR (Non-African American) 14.7; Potassium 3.7 mmol/L (3.5-5.1)
[2020-10-28] MEDS: FUROSEMIDE 40 MG TAB PO SCH (17:04)
--- NOTE | 2020-10-28 17:10 | Hospitalist Progress Note ---
Date of Service October 28, 2020 Assessment & Plan (1) Hypertensive urgency: History of hypertension BP improved with IV hydralazine and IV furosemide overnight. Cardiology was consulted and added Isordil TID to regimen. Has been getting carvedilol 18.75 mg twice daily. No amlodipine due to edema. 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 Additional diuretics were given this afternoon, and will monitor for response. Has been on furosemide 40 mg twice daily (3) Renal neoplasm: A new 4 cm rounded mass lesion in the interpolar left kidney was found on CT abdomen pelvis and is highly concerning for neoplasm such as renal cell carcinoma or possibly urothelial neoplasm. Urology was contacted and recommends urine cytology and close outpatient follow- up with them in the clinic. Awaiting urine cytology (4) Abdominal bloating: multifactorial including heart failure exacerbation +/- excessive milk and dairy in her diet vs medication reaction (allopurinol is new) vs acute gastritis vs chronic constipation. Hold allopurinol. No milk products. Supportive care. (5) Chronic constipation: Stool softeners, laxatives as needed. Encourage ambulation as tolerated. (6) DVT prophylaxis: Full code Heparin Dispo-continue hospitalization and PCU monitoring. [facility] Admission and Anticipated Discharge Date Admission Date: October 28, 2020 Subjective The patient was seen and examined in telemetry unit She has history of hypertension, chronic kidney disease and chronic left-sided heart failure was admitted with shortness of breath for the last 3 weeks prior to admission Blood pressure seems to be improving Feels a little better but remains generally weak and lethargic Review of Systems Review of Systems: All systems reviewed and are unremarkable except as noted below Respiratory: + dyspnea (Minimal dyspnea at rest); no wheezing Cardiovascular: no chest pain and no palpitations Physical Exam Physical Exam: Lying in bed comfortably Constitutional: well nourished, + ill appearing and + obese; + not well developed Eyes: PERRL, conjunctivae normal, anicteric sclerae ENMT: external ear and nose normal, oropharynx normal Neck: trachea midline, no thyromegaly Respiratory: no respiratory distress Auscultation: lungs clear to auscultation bilaterally and + diminished lung sounds Cardiovascular: Rate/Rhythm: regular rate and regular rhythm Heart Sounds: no murmur Extremities: + edema (Trace to 1+ edema bilaterally) Gastrointestinal (Abdomen): Inspection/Auscultation: normal bowel sounds; abdomen not distended Percussion/Palpation: abdomen nontender Musculoskeletal: No acute arthritis involving any joint Neurologic: Alert, awake and oriented x3. Generally weak but no focal neuro deficit Psychiatric: A+Ox3, euthymic affect Lymphatic: no cervical or axillary lymphadenopathy Results & Data Results & Data ([facility]) Vital Signs (Past 12 Hours) Vital Signs Temp Pulse Pulse Resp BP BP Pulse Ox 10/28/20 15:15 36.7 C 70 18 170/81 H 97 10/28/20 12:30 36.3 C L 76 20 121/70 93 10/28/20 09:03 78 10/28/20 07:15 36.6 C 67 18 132/70 96 10/28/20 06:18 127/66 Laboratory Results [facility] 10/28/20 14:19 Sodium 137 Potassium 3.7 Chloride 104 Carbon Dioxide 28 BUN 46 H Creatinine 2.79 H D Glucose 188 H Calcium 9.1 Medications Administered Current Inpatient Medications Acetaminophen (Acetaminophen 325 Mg Tab) 650 mg PO Q4H PRN PRN Reason: Pain or Fever Stop: 11/26/20 04:45 Last Admin: 10/28/20 12:12 Dose: 650 mg Documented by: Allopurinol (Allopurinol 100 Mg Tab) 100 mg PO DAILY [facility] Stop: 11/26/20 08:59 Last Admin: 10/27/20 09:57 Dose: 100 mg Documented by: Aspirin (Aspirin 81 Mg Ectab) 81 mg PO QAM [facility] Stop: 11/26/20 08:59 Last Admin: 10/28/20 08:45 Dose: 81 mg Documented by: Carvedilol (Carvedilol 6.25 Mg Tab) 18.75 mg PO BID [facility] Stop: 11/26/20 07:04 Last Admin: 10/28/20 08:44 Dose: 18.75 mg Documented by: Dextrose (Dextrose 50% 50 Ml Syringe) 25 - 50 ml IV UD PRN; Protocol PRN Reason: Hypoglycemia Protocol Stop: 11/26/20 04:45 Diclofenac Sodium (Diclofenac Sod 1% Gel 100 Gm Tube) 4 gm EXT QID [facility] Stop: 11/26/20 08:59 Last Admin: 10/28/20 12:14 Dose: 4 gm Documented by: Famotidine (Famotidine 20 Mg Tab) 20 mg PO BID [facility] Stop: 11/26/20 08:59 Last Admin: 10/28/20 08:46 Dose: 20 mg Documented by: Furosemide (Furosemide 40 Mg Tab) 40 mg PO BID17 [facility] Stop: 11/27/20 16:59 Glucagon (Glucagon For Inj 1 Mg Vial) 1 mg SQ UD PRN; Protocol PRN Reason: Hypoglycemia Protocol Stop: 11/26/20 04:45 Glucose (Glucose 10 Tabs/Tube) 4 - 8 tabs PO UD PRN; Protocol PRN Reason: Hypoglycemia Protocol Stop: 11/26/20 04:45 Glucose (Glucose 40% Gel 15 Gm Tube) 15 - 30 gm PO UD PRN; Protocol PRN Reason: Hypoglycemia Protocol Stop: 11/26/20 04:45 Heparin Sodium (Porcine) (Heparin Sod 5,000 Unit/0.5 Ml Vial) 5,000 units SQ Q8 [facility] Stop: 11/26/20 05:59 Last Admin: 10/28/20 15:29 Dose: 5,000 units Documented by: Hydralazine HCl (Hydralazine Tab 50 Mg Tab) 50 mg PO TID [facility] Stop: 11/26/20 07:04 Last Admin: 10/28/20 15:29 Dose: 50 mg Documented by: Hydromorphone HCl (Hydromorphone Inj 0.5 Mg/0.5 Ml Syr) 0.25 mg IV Q4H PRN PRN Reason: Pain Stop: 11/10/20 04:45 Insulin Aspart (Insulin Aspart 100 Units/Ml 3 Ml Pen) 0 units SC ACHS [facility] Stop: 11/26/20 04:45 Last Admin: 10/28/20 12:13 Dose: 3 units Documented by: Isosorbide Dinitrate (Isosorbide Dinitrate 40 Mg Tab) 40 mg PO TID@0700,1200,1700 [facility] Stop: 11/26/20 16:59 Last Admin: 10/28/20 12:13 Dose: 40 mg Documented by: Miscellaneous (Carbohydrates For Hypoglycemia ) 15 - 30 gm PO UD PRN PRN Reason: Hypoglycemia Protocol Stop: 11/26/20 04:45 Nitroglycerin (Nitroglycerin Sl 0.4 Mg/Tab Tab) 0.4 mg SL UD PRN PRN Reason: Chest Pain Stop: 11/26/20 04:45 Ondansetron HCl (Ondansetron Inj 2 Mg/Ml 2 Ml Vial) 4 mg IV Q8H PRN PRN Reason: Nausea Stop: 11/26/20 10:01 Last Admin: 10/27/20 10:15 Dose: 4 mg Documented by: Polyethylene Glycol (Polyethylene (Miralax) 17 Gm Pack) 17 gm PO DAILY PRN PRN Reason: Constipation Stop: 11/26/20 13:17 Promethazine HCl (Promethazine Hcl 12.5 Mg Supp) 12.5 mg NE Q6H PRN PRN Reason: Nausea And Vomiting Stop: 11/26/20 13:17 Rosuvastatin Calcium (Rosuvastatin Calcium 10 Mg Tab) 10 mg PO QPM [facility] Stop: 11/26/20 20:59 Last Admin: 10/27/20 21:53 Dose: 10 mg Documented by: Senna/Docusate Sodium (Docusate Sodium/Senna 50/8.6mg Tab) 1 tab PO BID [facility] Stop: 11/26/20 08:59 Last Admin: 10/28/20 08:46 Dose: 1 tab Documented by: Tramadol HCl (Tramadol Hcl 50 Mg Tablet) 25 - 50 mg PO Q4H PRN PRN Reason: Pain Stop: 11/26/20 04:45
[2020-10-28] MEDS: ROSUVASTATIN CALCIUM 10 MG TAB PO SCH (22:02)
[2020-10-29] MEDS: DICLOFENAC SOD 1% GEL 100 GM TUBE EXT SCH ×5 (01:09→20:23)
[2020-10-29] MEDS: HEPARIN SOD 5,000 UNIT/0.5 ML VIAL SQ SCH ×3 (05:13→22:43)
[2020-10-29] MEDS: CALCIUM CARBONATE 500 MG CHEWABLE TAB PO PRN (05:13)
[2020-10-29] MEDS: ISOSORBIDE DINITRATE 40 MG TAB PO SCH (06:02)
[2020-10-29 06:12] LABS: Basophils # (auto) 0.02 K/uL (0-0.2); Basophils % (auto) 0.3 %; Eosinophils # (auto) 0.26 K/uL (0-0.5); Eosinophils % (auto) 3.6 %; Hematocrit (blood only) 31.2 % (37-47); Immature Granulocytes # (auto) 0.03 K/uL (0.00-0.02); Immature Granulocytes % (auto) 0.4 %; Lymphocytes # (auto) 1.78 K/uL (1.2-3.4); Lymphocytes % (auto) 24.7 %; Mean Corpuscular Hemoglobin 30.5 pg (25-34); Mean Corpuscular Hgb Conc 32.1 g/dL (32-36); Mean Corpuscular Volume 95.1 fL (80-100); Mean Platelet Volume 9.5 fL (7.4-10.4); Monocytes # (auto) 0.76 K/uL (0.11-0.59); Monocytes % (auto) 10.6 %; Neutrophils # (auto) 4.35 K/uL (1.4-6.5); Neutrophils % (auto) 60.4 %; Platelet Count 296 K/uL (130-400); RDW Coefficient of Variation 13.8 % (11.5-14.5); RDW Standard Deviation 47.4 fL (36.4-46.3); Red Blood Count 3.28 M/uL (4.2-5.4)
[2020-10-29 06:40] LABS: BUN Creatinine Ratio 15.8 (10-20); Calcium 9.5 mg/dl (8.5-10.1); Creatinine Clr Calc Pharmacy 17.5 ml/min; Est GFR (African American) 17.5; Est GFR (Non-African American) 15.1; Potassium 3.5 mmol/L (3.5-5.1)
[2020-10-29] MEDS: INSULIN ASPART 100 UNITS/ML 3 ML PEN SC SCH ×4 (08:30→20:26)
[2020-10-29] MEDS: FAMOTIDINE 20 MG TAB PO SCH ×2 (09:18→20:22)
[2020-10-29] MEDS: hydrALAZINE TAB 50 MG TAB PO SCH ×3 (09:18→20:22)
[2020-10-29] MEDS: ASPIRIN 81 MG ECTAB PO SCH (09:18)
[2020-10-29] MEDS: carvediloL 6.25 MG TAB PO SCH ×2 (09:19→20:22)
[2020-10-29] MEDS: DOCUSATE SODIUM/SENNA 50/8.6MG TAB PO SCH ×2 (09:20→20:22)
[2020-10-29] MEDS: FUROSEMIDE 40 MG TAB PO SCH ×2 (09:20→17:05)
[2020-10-29] MEDS: ACETAMINOPHEN 325 MG TAB PO PRN (09:22)
--- NOTE | 2020-10-29 11:34 | Cardiology Progress Note ---
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 Patient maintaining delicate balance of reduced renal perfusion and volume overload. Presents now with increased abdominal bloating breathlessness and marked hypertension. Symptoms associated with chest pressure sensation not specifically anginal. Still noting fullness in abdomen and increased girth. Blood pressures markedly elevated on presentation but improved with IV hydralazine and single dose of IV furosemide Prior attempts to increase carvedilol or poorly tolerated. Use of amlodipine resulted in marked edema Symptoms currently not suggestive of acute coronary syndrome. EKG without acute changes and despite renal insufficiency troponins within normal limit. Patient very high risk for any coronary intervention Plan: Patient clinically improved today though headaches due to increased isosorbide. Less abdominal distention no edema. Renal function stable Recommendation reduce isosorbide back to 20 mg 3 times daily , increase diet discharge if stable ambulatory Resume furosemide at 60 mg p.o. daily with an additional 20 mg 2 days/week Patient has scheduled appointment with cardiology on 11/04/2020. Patient to reschedule nephrology appointment previously made for this morning (2) Hypertensive urgency: (3) Chronic kidney disease (CKD), stage IV (severe): (4) Abdominal pain: (5) Left bundle branch block: Intermittent, currently not present Admission and Anticipated Discharge Date Admission Date: October 28, 2020 Subjective Patient seen and examined, chart, medications, telemetry reviewed. Blood pressure better controlled. Complains of headache however with increased isosorbide Nausea and poor p.o. intake last night. Wishes to try full food this morning. Results & Data ([facility]) Vital Signs (Past 12 Hours) Vital Signs Temp Pulse Pulse Resp BP Pulse Ox 10/29/20 08:01 36.8 C 75 18 114/54 L 96 10/29/20 08:00 66 10/29/20 03:59 36.7 C 79 16 121/64 92 10/29/20 00:08 36.8 C 83 18 160/72 H 96 10/29/20 00:00 72 Laboratory Results Laboratory Results - last 24 hr 10/28/20 10/28/20 10/28/20 12:00 14:19 16:04 WBC RBC Hgb Hct MCV MCH MCHC RDW Std Deviation RDW Coeff of Noemy Plt Count MPV Immature Gran % (Auto) Neut % (Auto) Lymph % (Auto) Saline % (Auto) Eos % (Auto) Baso % (Auto) Neut # (Auto) Lymph # (Auto) Saline # (Auto) Eos # (Auto) Baso # (Auto) Immature Gran # (Auto) Sodium 137 Potassium 3.7 Chloride 104 Carbon Dioxide 28 Anion Gap 5.0 BUN 46 H Creatinine 2.79 H D Est Cr Clr Drug Dosing 17.2 Est GFR ( Amer) 17.1 Est GFR (Non-Af Amer) 14.7 BUN/Creatinine Ratio 16.6 Glucose 188 H POC Glucose 193 H 177 H Calcium 9.1 10/28/20 10/29/20 10/29/20 21:11 05:39 05:39 WBC 7.20 RBC 3.28 L Hgb 10.0 L Hct 31.2 L MCV 95.1 MCH 30.5 MCHC 32.1 RDW Std Deviation 47.4 H RDW Coeff of Noemy 13.8 Plt Count 296 MPV 9.5 Immature Gran % (Auto) 0.4 Neut % (Auto) 60.4 Lymph % (Auto) 24.7 Saline % (Auto) 10.6 Eos % (Auto) 3.6 Baso % (Auto) 0.3 Neut # (Auto) 4.35 Lymph # (Auto) 1.78 Saline # (Auto) 0.76 H Eos # (Auto) 0.26 Baso # (Auto) 0.02 Immature Gran # (Auto) 0.03 H Sodium 141 Potassium 3.5 Chloride 107 Carbon Dioxide 28 Anion Gap 7.0 BUN 43 H Creatinine 2.74 H Est Cr Clr Drug Dosing 17.5 Est GFR ( Amer) 17.5 Est GFR (Non-Af Amer) 15.1 BUN/Creatinine Ratio 15.8 Glucose 142 H POC Glucose 207 H Calcium 9.5 10/29/20 10/29/20 07:46 11:25 WBC RBC Hgb Hct MCV MCH MCHC RDW Std Deviation RDW Coeff of Noemy Plt Count MPV Immature Gran % (Auto) Neut % (Auto) Lymph % (Auto) Saline % (Auto) Eos % (Auto) Baso % (Auto) Neut # (Auto) Lymph # (Auto) Saline # (Auto) Eos # (Auto) Baso # (Auto) Immature Gran # (Auto) Sodium Potassium Chloride Carbon Dioxide Anion Gap BUN Creatinine Est Cr Clr Drug Dosing Est GFR ( Amer) Est GFR (Non-Af Amer) BUN/Creatinine Ratio Glucose POC Glucose 180 H 184 H Calcium (1) Abdominal pain Abdominal location: generalized Qualified Code(s): R10.84 - Generalized abdominal pain
[2020-10-29] MEDS: ISOSORBIDE DINITRATE 20 MG TAB PO SCH ×2 (12:36→17:05)
--- NOTE | 2020-10-29 14:40 | Hospitalist Progress Note ---
Date of Service October 29, 2020 Assessment & Plan (1) Hypertensive urgency: History of hypertension BP improved with IV hydralazine and IV furosemide overnight. Cardiology was consulted and added Isordil TID to regimen. Has been getting carvedilol 18.75 mg twice daily. No amlodipine due to edema. 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 Additional diuretics were given this afternoon, and will monitor for response. Has been on furosemide 40 mg twice daily Acute on chronic right-sided diastolic heart failure Has been getting furosemide 40 mg twice daily Denies any shortness of breath and or any bloated feeling (3) Renal neoplasm: A new 4 cm rounded mass lesion in the interpolar left kidney was found on CT abdomen pelvis and is highly concerning for neoplasm such as renal cell carcinoma or possibly urothelial neoplasm. Urology was contacted and recommends urine cytology and close outpatient follow- up with them in the clinic. Awaiting urine cytology-negative for any malignancy Will have an appointment with the urologist as an outpatient (4) Abdominal bloating: multifactorial including heart failure exacerbation +/- excessive milk and dairy in her diet vs medication reaction (allopurinol is new) vs acute gastritis vs chronic constipation. Hold allopurinol. No milk products. Supportive care. (5) Chronic constipation: Stool softeners, laxatives as needed. Encourage ambulation as tolerated. (6) DVT prophylaxis: Full code Heparin Dispo-continue hospitalization and PCU monitoring. Likely discharge tomorrow Admission and Anticipated Discharge Date Admission Date: October 28, 2020 Subjective The patient was seen and examined in telemetry unit She has history of hypertension, chronic kidney disease and chronic left-sided heart failure was admitted with shortness of breath for the last 3 weeks prior to admission Blood pressure seems to be improving Feels a little better but remains generally weak and lethargic 10/29/2020 The patient was seen and examined in the telemetry unit She has been complaining of heartburn since last night without any nausea and/or vomiting She was given liquid antacid and a that has been helping Remains generally weak and not yet ready to be discharged Review of Systems Review of Systems: All systems reviewed and are unremarkable except as noted below Respiratory: + dyspnea (Minimal dyspnea at rest); no wheezing Physical Exam Physical Exam: Lying in bed comfortably Constitutional: well nourished, + ill appearing and + obese; + not well developed Eyes: PERRL, conjunctivae normal, anicteric sclerae ENMT: external ear and nose normal, oropharynx normal Neck: trachea midline, no thyromegaly Respiratory: no respiratory distress Auscultation: lungs clear to auscultation bilaterally and + diminished lung sounds Cardiovascular: Rate/Rhythm: regular rate and regular rhythm Heart Sounds: no murmur Extremities: + edema (Trace to 1+ edema bilaterally) Gastrointestinal (Abdomen): Inspection/Auscultation: normal bowel sounds; abdomen not distended Percussion/Palpation: + abdomen tender (Minimally tender epigastrium) and abdomen soft Musculoskeletal: No acute arthritis in any joints Psychiatric: A+Ox3, euthymic affect Lymphatic: no cervical or axillary lymphadenopathy Results & Data Results & Data ([facility]) Vital Signs (Past 12 Hours) Vital Signs Temp Pulse Pulse Resp BP Pulse Ox 10/29/20 12:18 36.5 C 73 18 132/73 95 10/29/20 08:01 36.8 C 75 18 114/54 L 96 10/29/20 08:00 66 10/29/20 03:59 36.7 C 79 16 121/64 92 Laboratory Results Short CBC 10/29/20 Range/Units 05:39 WBC 7.20 (4.8-10.8) K/uL Hgb 10.0 L (12.0-16.0) g/dL Hct 31.2 L (37-47) % Plt Count 296 (130-400) K/uL BMP 10/28/20 10/29/20 14:19 05:39 Sodium 137 141 Potassium 3.7 3.5 Chloride 104 107 Carbon Dioxide 28 28 BUN 46 H 43 H Creatinine 2.79 H D 2.74 H Glucose 188 H 142 H Calcium 9.1 9.5 Medications Administered Current Inpatient Medications Acetaminophen (Acetaminophen 325 Mg Tab) 650 mg PO Q4H PRN PRN Reason: Pain or Fever Stop: 11/26/20 04:45 Last Admin: 10/29/20 09:22 Dose: 650 mg Documented by: Allopurinol (Allopurinol 100 Mg Tab) 100 mg PO DAILY [facility] Stop: 11/26/20 08:59 Last Admin: 10/27/20 09:57 Dose: 100 mg Documented by: Aspirin (Aspirin 81 Mg Ectab) 81 mg PO QAM [facility] Stop: 11/26/20 08:59 Last Admin: 10/29/20 09:18 Dose: 81 mg Documented by: Calcium Carbonate (Calcium Carbonate 500 Mg Chewable Tab) 500 mg PO BID PRN PRN Reason: Indigestion Stop: 11/28/20 04:13 Last Admin: 10/29/20 05:13 Dose: 500 mg Documented by: Carvedilol (Carvedilol 6.25 Mg Tab) 18.75 mg PO BID [facility] Stop: 11/26/20 07:04 Last Admin: 10/29/20 09:19 Dose: 18.75 mg Documented by: Dextrose (Dextrose 50% 50 Ml Syringe) 25 - 50 ml IV UD PRN; Protocol PRN Reason: Hypoglycemia Protocol Stop: 11/26/20 04:45 Diclofenac Sodium (Diclofenac Sod 1% Gel 100 Gm Tube) 4 gm EXT QID [facility] Stop: 11/26/20 08:59 Last Admin: 10/29/20 13:27 Dose: Not Given Documented by: Famotidine (Famotidine 20 Mg Tab) 20 mg PO BID [facility] Stop: 11/26/20 08:59 Last Admin: 10/29/20 09:18 Dose: 20 mg Documented by: Furosemide (Furosemide 40 Mg Tab) 40 mg PO BID17 [facility] Stop: 11/27/20 16:59 Last Admin: 10/29/20 09:20 Dose: 40 mg Documented by: Glucagon (Glucagon For Inj 1 Mg Vial) 1 mg SQ UD PRN; Protocol PRN Reason: Hypoglycemia Protocol Stop: 11/26/20 04:45 Glucose (Glucose 10 Tabs/Tube) 4 - 8 tabs PO UD PRN; Protocol PRN Reason: Hypoglycemia Protocol Stop: 11/26/20 04:45 Glucose (Glucose 40% Gel 15 Gm Tube) 15 - 30 gm PO UD PRN; Protocol PRN Reason: Hypoglycemia Protocol Stop: 11/26/20 04:45 Heparin Sodium (Porcine) (Heparin Sod 5,000 Unit/0.5 Ml Vial) 5,000 units SQ Q8 [facility] Stop: 11/26/20 05:59 Last Admin: 10/29/20 14:29 Dose: Not Given Documented by: Hydralazine HCl (Hydralazine Tab 50 Mg Tab) 50 mg PO TID [facility] Stop: 11/26/20 07:04 Last Admin: 10/29/20 09:18 Dose: 50 mg Documented by: Hydromorphone HCl (Hydromorphone Inj 0.5 Mg/0.5 Ml Syr) 0.25 mg IV Q4H PRN PRN Reason: Pain Stop: 11/10/20 04:45 Insulin Aspart (Insulin Aspart 100 Units/Ml 3 Ml Pen) 0 units SC ACHS [facility] Stop: 11/26/20 04:45 Last Admin: 10/29/20 12:17 Dose: 5 units Documented by: Isosorbide Dinitrate (Isosorbide Dinitrate 20 Mg Tab) 20 mg PO TID@0700,1200,1700 [facility] Stop: 11/28/20 11:59 Last Admin: 10/29/20 12:36 Dose: 20 mg Documented by: Miscellaneous (Carbohydrates For Hypoglycemia ) 15 - 30 gm PO UD PRN PRN Reason: Hypoglycemia Protocol Stop: 11/26/20 04:45 Nitroglycerin (Nitroglycerin Sl 0.4 Mg/Tab Tab) 0.4 mg SL UD PRN PRN Reason: Chest Pain Stop: 11/26/20 04:45 Ondansetron HCl (Ondansetron Inj 2 Mg/Ml 2 Ml Vial) 4 mg IV Q8H PRN PRN Reason: Nausea Stop: 11/26/20 10:01 Last Admin: 10/27/20 10:15 Dose: 4 mg Documented by: Polyethylene Glycol (Polyethylene (Miralax) 17 Gm Pack) 17 gm PO DAILY PRN PRN Reason: Constipation Stop: 11/26/20 13:17 Promethazine HCl (Promethazine Hcl 12.5 Mg Supp) 12.5 mg OR Q6H PRN PRN Reason: Nausea And Vomiting Stop: 11/26/20 13:17 Rosuvastatin Calcium (Rosuvastatin Calcium 10 Mg Tab) 10 mg PO QPM [facility] Stop: 11/26/20 20:59 Last Admin: 10/28/20 22:02 Dose: 10 mg Documented by: Senna/Docusate Sodium (Docusate Sodium/Senna 50/8.6mg Tab) 1 tab PO BID [facility] Stop: 11/26/20 08:59 Last Admin: 10/29/20 09:20 Dose: 1 tab Documented by: Tramadol HCl (Tramadol Hcl 50 Mg Tablet) 25 - 50 mg PO Q4H PRN PRN Reason: Pain Stop: 11/26/20 04:45
[2020-10-29] MEDS: ROSUVASTATIN CALCIUM 10 MG TAB PO SCH (20:22)
[2020-10-30] MEDS: ISOSORBIDE DINITRATE 20 MG TAB PO SCH ×2 (06:00→11:55)
[2020-10-30] MEDS: HEPARIN SOD 5,000 UNIT/0.5 ML VIAL SQ SCH (06:00)
[2020-10-30 07:50] LABS: BUN Creatinine Ratio 16.2 (10-20); Calcium 9.7 mg/dl (8.5-10.1); Creatinine Clr Calc Pharmacy 17.3 ml/min; Est GFR (African American) 17.2; Est GFR (Non-African American) 14.9; Potassium 3.4 mmol/L (3.5-5.1)
[2020-10-30] MEDS: carvediloL 6.25 MG TAB PO SCH (08:07)
[2020-10-30] MEDS: DOCUSATE SODIUM/SENNA 50/8.6MG TAB PO SCH (08:07)
[2020-10-30] MEDS: FUROSEMIDE 40 MG TAB PO SCH (08:08)
[2020-10-30] MEDS: ASPIRIN 81 MG ECTAB PO SCH (08:08)
[2020-10-30] MEDS: FAMOTIDINE 20 MG TAB PO SCH (08:08)
[2020-10-30] MEDS: hydrALAZINE TAB 50 MG TAB PO SCH (08:08)
[2020-10-30] MEDS: INSULIN ASPART 100 UNITS/ML 3 ML PEN SC SCH ×2 (08:09→11:55)
[2020-10-30] MEDS: DICLOFENAC SOD 1% GEL 100 GM TUBE EXT SCH ×2 (08:10→11:54)
[2020-10-30] MEDS: POTASSIUM CHLORIDE CRTAB 20 MEQ TABCR PO ONE ×2 (09:28→09:32)
[2020-10-30] MEDS ORDERED: POTASSIUM CHLORIDE PWD 20 MEQ PACK PO ONE (09:41)
[2020-10-30] MEDS ORDERED: hydrALAZINE HCL 25 MG TAB PO ONE (09:43)
--- NOTE | 2020-10-30 09:43 | Cardiology Progress Note ---
Date of Service October 30, 2020 Assessment & Plan (1) Hypertensive heart and chronic kidney disease with acute on chronic right- sided heart failure: (2) HTN (hypertension): (3) Congestive heart failure: (4) Hypokalemia: Hypertension, hypertensive heart disease. BP uncontrolled. Increase Hydralazine to 75 mg three times per day for additional blood pressure control Diastolic heart failure. Compensated volume status. Recommend furosemide 60 mg/day with an additional 20 mg as needed. Hypokalemia. Supplement potassium today orally, as ordered. Angiographically normal coronaries via April 1999 catheterization. Nonischemic nuclear stress testing in October 2019. No overt angina. Dyslipidemia. Continue statin Generalized anxiety disorder. Outpatient Cardiology follow-up as scheduled on 11/04/2020. Admission and Anticipated Discharge Date Admission Date: October 28, 2020 Supervising Physician Co-Signing Physician Notes Patient seen and examined full assessment as above agree with outlined plan. Patient scheduled with cardiology next week Lawrence GOMEZ Subjective Patient seen and examined. Chart, medications, and telemetry reviewed. Blood pressure elevated following reduction in isosorbide dosing. Unable to swallow the potassium pills. + Nasal congestion. No chest pain, palpitations, or dyspnea. Telemetry reveals sinus rhythm with occasional PVC's with heart rates typically in the 60's to lower 70's. Physical Exam Physical Exam: General: A&Ox3. NAD. HEENT: Normocephalic. Atraumatic. PER. Conjunctiva pink, sclera clear. Neck: Carotid bruits. No JVD. Heart: RRR. Grade II/ systolic murmur. Lungs: Diminished however clear to auscultation. Abdomen: +BS. Extremities: Minimal edema. No clubbing. No cyanosis. Results & Data ([facility]) Vital Signs (Past 12 Hours) Vital Signs Temp Pulse Pulse Resp BP Pulse Ox 10/30/20 08:04 36.4 C L 61 18 157/70 H 97 10/30/20 08:00 78 10/30/20 04:15 36.6 C 76 20 171/90 H 91 10/30/20 00:00 67 10/29/20 23:22 36.7 C 72 18 159/68 H 95 Laboratory Results Laboratory Results - last 24 hr 10/29/20 10/29/20 10/29/20 11:25 16:15 20:32 Sodium Potassium Chloride Carbon Dioxide Anion Gap BUN Creatinine Est Cr Clr Drug Dosing Est GFR ( Amer) Est GFR (Non-Af Amer) BUN/Creatinine Ratio Glucose POC Glucose 184 H 185 H 217 H Calcium 10/30/20 10/30/20 06:46 07:34 Sodium 141 Potassium 3.4 L Chloride 106 Carbon Dioxide 26 Anion Gap 9.0 BUN 45 H Creatinine 2.77 H Est Cr Clr Drug Dosing 17.3 Est GFR ( Amer) 17.2 Est GFR (Non-Af Amer) 14.9 BUN/Creatinine Ratio 16.2 Glucose 167 H POC Glucose 189 H Calcium 9.7
--- NOTE | 2020-10-30 12:01 | Hospitalist Progress Note ---
Date of Service October 30, 2020 Assessment & Plan (1) Hypertensive urgency: History of hypertension BP improved with IV hydralazine and IV furosemide overnight. Cardiology was consulted and added Isordil TID to regimen. Has been getting carvedilol 18.75 mg twice daily. No amlodipine due to edema. Blood pressure noted to be high this morning and hydralazine doses have been increased by the language specialist She remains otherwise asymptomatic and will be discharged home this afternoon CKD Creatinine remains slightly elevated at 2.79 Baseline about 2.2 He will need to have an appointment with batch analyst as an outpatient (2) Hypertensive heart and chronic kidney disease with acute on chronic right- sided heart failure: She has undergone a recent diuretic decrease per her language specialist over the last couple of months in an effort to maintain a balance between reduced renal perfusion and volume overload. Has been on furosemide 40 mg twice daily We will discharge home on furosemide 60 mg a day with an additional 20 mg as needed Will need potassium supplement Acute on chronic right-sided diastolic heart failure Has been getting furosemide 40 mg twice daily Denies any shortness of breath and or any bloated feeling As above and will get 2 steps O2 saturation before discharge (3) Renal neoplasm: A new 4 cm rounded mass lesion in the interpolar left kidney was found on CT abdomen pelvis and is highly concerning for neoplasm such as renal cell carcinoma or possibly urothelial neoplasm. Urology was contacted and recommends urine cytology and close outpatient follow- up with them in the clinic. Awaiting urine cytology-negative for any malignancy Will have an appointment with the urologist as an outpatient (4) Abdominal bloating: multifactorial including heart failure exacerbation +/- excessive milk and dairy in her diet vs medication reaction (allopurinol is new) vs acute gastritis vs chronic constipation. Hold allopurinol. No milk products. Supportive care. (5) Chronic constipation: Stool softeners, laxatives as needed. Encourage ambulation as tolerated. (6) DVT prophylaxis: Full code Heparin Dispo-continue hospitalization and PCU monitoring. Likely discharge this afternoon Admission and Anticipated Discharge Date Admission Date: October 28, 2020 Subjective The patient was seen and examined in telemetry unit She has history of hypertension, chronic kidney disease and chronic left-sided heart failure was admitted with shortness of breath for the last 3 weeks prior to admission Blood pressure seems to be improving Feels a little better but remains generally weak and lethargic 10/29/2020 The patient was seen and examined in the telemetry unit She has been complaining of heartburn since last night without any nausea and/or vomiting She was given liquid antacid and a that has been helping Remains generally weak and not yet ready to be discharged 10/30/2020 The patient was seen and examined in telemetry unit She has been feeling a lot better today though her blood pressure is little high Denies any chest pain, shortness of breath or palpitation She would like to do 2 steps O2 saturation before discharge home this afternoon Review of Systems Review of Systems: All systems reviewed and are unremarkable except as noted below Respiratory: + dyspnea (Minimal dyspnea at rest); no wheezing Physical Exam Physical Exam: Lying in bed comfortably Constitutional: well developed, well nourished and + obese; not ill appearing Eyes: PERRL, conjunctivae normal, anicteric sclerae ENMT: external ear and nose normal, oropharynx normal Neck: trachea midline, no thyromegaly Respiratory: no respiratory distress Auscultation: lungs clear to auscultation bilaterally and + diminished lung sounds Cardiovascular: Rate/Rhythm: regular rate and regular rhythm Heart Sounds: no murmur Extremities: no edema (Trace to 1+ edema bilaterally) Gastrointestinal (Abdomen): Inspection/Auscultation: normal bowel sounds; abdomen not distended Percussion/Palpation: + abdomen tender (Minimally tender epigastrium) and abdomen soft Musculoskeletal: No acute arthritis in any joint Neurologic: Alert, awake and oriented x3. Generally weak Psychiatric: A+Ox3, euthymic affect Lymphatic: no cervical or axillary lymphadenopathy Results & Data Results & Data ([place]) Vital Signs (Past 12 Hours) Vital Signs Temp Pulse Pulse Resp BP Pulse Ox 10/30/20 11:52 36.5 C 71 18 177/89 H 93 10/30/20 08:04 36.4 C L 61 18 157/70 H 97 10/30/20 08:00 78 10/30/20 04:15 36.6 C 76 20 171/90 H 91 10/30/20 00:00 67 Laboratory Results [facility] 10/30/20 06:46 Sodium 141 Potassium 3.4 L Chloride 106 Carbon Dioxide 26 BUN 45 H Creatinine 2.77 H Glucose 167 H Calcium 9.7 Medications Administered Current Inpatient Medications Acetaminophen (Acetaminophen 325 Mg Tab) 650 mg PO Q4H PRN PRN Reason: Pain or Fever Stop: 11/26/20 04:45 Last Admin: 10/29/20 09:22 Dose: 650 mg Documented by: Allopurinol (Allopurinol 100 Mg Tab) 100 mg PO DAILY [facility] Stop: 11/26/20 08:59 Last Admin: 10/27/20 09:57 Dose: 100 mg Documented by: Aspirin (Aspirin 81 Mg Ectab) 81 mg PO QAM [facility] Stop: 11/26/20 08:59 Last Admin: 10/30/20 08:08 Dose: 81 mg Documented by: Calcium Carbonate (Calcium Carbonate 500 Mg Chewable Tab) 500 mg PO BID PRN PRN Reason: Indigestion Stop: 11/28/20 04:13 Last Admin: 10/29/20 05:13 Dose: 500 mg Documented by: Carvedilol (Carvedilol 6.25 Mg Tab) 18.75 mg PO BID [facility] Stop: 11/26/20 07:04 Last Admin: 10/30/20 08:07 Dose: 18.75 mg Documented by: Dextrose (Dextrose 50% 50 Ml Syringe) 25 - 50 ml IV UD PRN; Protocol PRN Reason: Hypoglycemia Protocol Stop: 11/26/20 04:45 Diclofenac Sodium (Diclofenac Sod 1% Gel 100 Gm Tube) 4 gm EXT QID [facility] Stop: 11/26/20 08:59 Last Admin: 10/30/20 11:54 Dose: Not Given Documented by: Famotidine (Famotidine 20 Mg Tab) 20 mg PO BID [facility] Stop: 11/26/20 08:59 Last Admin: 10/30/20 08:08 Dose: 20 mg Documented by: Furosemide (Furosemide 40 Mg Tab) 40 mg PO [id number] [facility] Stop: 11/27/20 16:59 Last Admin: 10/30/20 08:08 Dose: 40 mg Documented by: Glucagon (Glucagon For Inj 1 Mg Vial) 1 mg SQ UD PRN; Protocol PRN Reason: Hypoglycemia Protocol Stop: 11/26/20 04:45 Glucose (Glucose 10 Tabs/Tube) 4 - 8 tabs PO UD PRN; Protocol PRN Reason: Hypoglycemia Protocol Stop: 11/26/20 04:45 Glucose (Glucose 40% Gel 15 Gm Tube) 15 - 30 gm PO UD PRN; Protocol PRN Reason: Hypoglycemia Protocol Stop: 11/26/20 04:45 Heparin Sodium (Porcine) (Heparin Sod 5,000 Unit/0.5 Ml Vial) 5,000 units SQ Q8 [facility] Stop: 11/26/20 05:59 Last Admin: 10/30/20 06:00 Dose: 5,000 units Documented by: Hydralazine HCl (Hydralazine Hcl 25 Mg Tab) 75 mg PO TID [facility] Stop: 11/29/20 13:59 Hydromorphone HCl (Hydromorphone Inj 0.5 Mg/0.5 Ml Syr) 0.25 mg IV Q4H PRN PRN Reason: Pain Stop: 11/10/20 04:45 Insulin Aspart (Insulin Aspart 100 Units/Ml 3 Ml Pen) 0 units SC ACHS [facility] Stop: 11/26/20 04:45 Last Admin: 10/30/20 11:55 Dose: 4 units Documented by: Isosorbide Dinitrate (Isosorbide Dinitrate 20 Mg Tab) 20 mg PO TID@0700,1200,1700 [facility] Stop: 11/28/20 11:59 Last Admin: 10/30/20 11:55 Dose: 20 mg Documented by: Miscellaneous (Carbohydrates For Hypoglycemia ) 15 - 30 gm PO UD PRN PRN Reason: Hypoglycemia Protocol Stop: 11/26/20 04:45 Nitroglycerin (Nitroglycerin Sl 0.4 Mg/Tab Tab) 0.4 mg SL UD PRN PRN Reason: Chest Pain Stop: 11/26/20 04:45 Ondansetron HCl (Ondansetron Inj 2 Mg/Ml 2 Ml Vial) 4 mg IV Q8H PRN PRN Reason: Nausea Stop: 11/26/20 10:01 Last Admin: 10/27/20 10:15 Dose: 4 mg Documented by: Polyethylene Glycol (Polyethylene (Miralax) 17 Gm Pack) 17 gm PO DAILY PRN PRN Reason: Constipation Stop: 11/26/20 13:17 Promethazine HCl (Promethazine Hcl 12.5 Mg Supp) 12.5 mg RI Q6H PRN PRN Reason: Nausea And Vomiting Stop: 11/26/20 13:17 Rosuvastatin Calcium (Rosuvastatin Calcium 10 Mg Tab) 10 mg PO QPM [facility] Stop: 11/26/20 20:59 Last Admin: 10/29/20 20:22 Dose: 10 mg Documented by: Senna/Docusate Sodium (Docusate Sodium/Senna 50/8.6mg Tab) 1 tab PO BID [facility] Stop: 11/26/20 08:59 Last Admin: 10/30/20 08:07 Dose: 1 tab Documented by: Tramadol HCl (Tramadol Hcl 50 Mg Tablet) 25 - 50 mg PO Q4H PRN PRN Reason: Pain Stop: 11/26/20 04:45
[2020-10-30] MEDS: CALCIUM CARBONATE 500 MG CHEWABLE TAB PO PRN (12:21)
[2020-10-30] MEDS ORDERED: hydrALAZINE HCL 25 MG TAB PO SCH (14:00)
--- NOTE | 2020-11-01 07:34 | Discharge Summary ---
Date of Service November 01, 2020 Admission HPI Per Admitting Provider History obtained from patient, famiy, and records. Medical history significant for chronic diastolic heart failure (EF 55 to 60%, TTE 2019), chronic left bundle branch block, hypertension, DM2 insulin requiring, CRI (baseline creatinine 2.5), GERD, chronic constipation, chronic anemia (baseline hemoglobin of 11). Last confinement October 2019 for hypertensive urgency. 1 week history of worsening constipation symptoms. Increasingly hard to move bowels daily. No fever, no chills. Chest/epigastric discomfort similar to reflux, non pleuritic as per patient. Shortness of breath from anxiety as per patient's daughter. Legs slightly swollen although weight stable as per patient. Denies headache. Denies OTC NSAID intake. At the ER, patient received Lasix for possible CHF. MEDICAL HISTORY: As above. SURGERIES: She has had knee surgeries, hysterectomy, bilateral tubal ligation, cholecystectomy and appendectomy. FAMILY HISTORY: Laryngeal cancer, stroke and throat cancer. 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 Admission Exam Per Admitting Provider Physical Exam: GENERAL: uncomfortable, chills, obese, no respiratory distress SKIN: Normal color, warm HEENT: [place] palpebral conjunctivae, no ptosis, moist buccal mucosa NECK : Supple, short neck, no tenderness CHEST : Decreased breath sounds, no tenderness HEART : RRR, no obvious murmurs ABDOMEN: Some distention, minimal epigastric tenderness EXTREMITIES : Minimal LE swelling, no LE tenderness, no other conspicuous deformities noted NEUROLOGIC : Coherent, no facial asymmetry, no other gross focality Principal Diagnosis Hypertensive Urgency,CKD,Left Renal Mass Discharge Exam Constitutional well developed, well nourished and + obese; not ill appearing Eyes PERRL, conjunctivae normal, anicteric sclerae ENMT external ear and nose normal, oropharynx normal Neck trachea midline, no thyromegaly Respiratory no respiratory distress Auscultation: lungs clear to auscultation bilaterally and + diminished lung sounds Cardiovascular Rate/Rhythm: regular rate and regular rhythm Heart Sounds: no murmur Extremities: no edema (Trace to 1+ edema bilaterally) Gastrointestinal (Abdomen) Inspection/Auscultation: normal bowel sounds; abdomen not distended Percussion/Palpation: + abdomen tender (Minimally tender epigastrium) and abdomen soft Psychiatric A+Ox3, euthymic affect Lymphatic no cervical or axillary lymphadenopathy Discharge Data Allergies Allergy/AdvReac Type Severity Reaction Status Date / Time No Known Allergies Allergy Verified 10/26/20 22:13 Consultations 10/27/20 00:09 ED Decision to Admit Stat 10/27/20 09:39 Consult Cardiology Routine Ordered Studies 10/27/20 00:48 CT abd pelvis wo con Urgent 10/27/20 02:23 US venous doppler LE Urgent Hospital Course (1) Hypertensive urgency: History of hypertension BP improved with IV hydralazine and IV furosemide overnight. Cardiology was consulted and added Isordil TID to regimen. Has been getting carvedilol 18.75 mg twice daily. No amlodipine due to edema. Blood pressure noted to be high this morning and hydralazine doses have been increased by the senior patrol agent She remains otherwise asymptomatic and will be discharged home this afternoon CKD Creatinine remains slightly elevated at 2.79 Baseline about 2.2 He will need to have an appointment with real estate management specialist as an outpatient (2) Hypertensive heart and chronic kidney disease with acute on chronic right- sided heart failure: She has undergone a recent diuretic decrease per her senior patrol agent over the last couple of months in an effort to maintain a balance between reduced renal perfusion and volume overload. Has been on furosemide 40 mg twice daily We will discharge home on furosemide 60 mg a day with an additional 20 mg as needed Will need potassium supplement Acute on chronic right-sided diastolic heart failure Has been getting furosemide 40 mg twice daily Denies any shortness of breath and or any bloated feeling As above and will get 2 steps O2 saturation before discharge (3) Renal neoplasm: A new 4 cm rounded mass lesion in the interpolar left kidney was found on CT abdomen pelvis and is highly concerning for neoplasm such as renal cell carcinoma or possibly urothelial neoplasm. Urology was contacted and recommends urine cytology and close outpatient follow- up with them in the clinic. Awaiting urine cytology-negative for any malignancy Will have an appointment with the urologist as an outpatient (4) Abdominal bloating: multifactorial including heart failure exacerbation +/- excessive milk and dairy in her diet vs medication reaction (allopurinol is new) vs acute gastritis vs chronic constipation. Hold allopurinol. No milk products. Supportive care. (5) Chronic constipation: Stool softeners, laxatives as needed. Encourage ambulation as tolerated. (6) DVT prophylaxis: Full code Heparin Dispo-continue hospitalization and PCU monitoring. Likely discharge this afternoon Total Time Total Time Spent Total Time Spent (In Minutes): 35 minutes Total Time Includes: Examination of the Patient, Discharge Planning, Medication Reconciliation and Communication With Other Providers Discharge Plan Discharge Items Patient Disposition: Home - Self-Care Reason For Visit: CP Discharge Diagnosis: Hypertensive Urgency,CKD,Left Renal Mass Condition on Discharge: Fair Activity: Resume your previous activity Non-emergency contact: Primary Care Provider Call non-emergency contact if: you have any medication questions Follow-up/Referrals: Fox Ramirez MD [Primary Care Provider] - (Date & Time 11/05/2020 11:20 AM Provider Fox Ramirez MD [facility] ) Diet: Carb Consistent or DM2 and Heart Healthy Addtl Attending Provider Instructions: Please take precaution to avoid fall Please keep appointments with your health care providers Take medications as directed Pending Studies at Discharge: No Stand-Alone Forms: My [employer], Smoking Cessation Medications and DC Order Prescriptions: New hydralazine 50 mg tablet 75 mg PO TID Qty: 135 RF: 0 furosemide 40 mg tablet 60 mg PO DAILY Qty: 60 RF: 0 Continued allopurinol 100 mg tablet 100 mg PO DAILY Qty: 60 RF: 1 diclofenac sodium 1 % gel 4 g TOP QID Qty: 100 RF: 6 (DME) Oxygen Home Liters Per Minute See Dose Instructions .ROUTE .MEDSUPPLY Qty: 1 RF: 0 ergocalciferol (vitamin D2) 1,250 mcg (50,000 unit) capsule 50,000 unit PO MONTHLY RF: 0 lidocaine [Salonpas (lidocaine)] 4 % Adhesive Patch,Medicated 1 patch TOPICAL QAM RF: 0 aspirin 81 mg Tablet,Delayed Release (Dr/Ec) 81 mg PO QAM RF: 0 isosorbide dinitrate 20 mg tablet 20 mg PO TID RF: 0 rosuvastatin 10 mg tablet 10 mg PO QPM RF: 0 acetaminophen [Tylenol Extra Strength] 500 mg Tablet 1,000 mg PO AMPM RF: 0 Humulin 70/30 U-100 Insulin 100 unit/mL (70-30) suspension 55 - 60 units subcut BID RF: 0 carvedilol 12.5 mg tablet 18.75 mg PO BID RF: 0 famotidine [Pepcid] 20 mg Tablet 20 mg PO QPM RF: 0 sennosides-docusate sodium [Senna with Docusate Sodium] 8.6-50 mg tablet 1 tab-cap PO HS RF: 0 Discontinued lisinopril 40 mg tablet 40 mg PO QAM Qty: 90 RF: 3 hydralazine 50 mg tablet 50 mg PO TID Qty: 270 RF: 3 furosemide 40 mg tablet 40 mg PO .COMPLEX RF: 0 Discharge Orders: Discharge Order (Routine); Ordered 10/30/20 Ordered By: Rose Warren Admission Data Admit Date/Time: 10/28/20 01:26 Attending Provider: Rose Warren Admit Provider: Flavio Doherty Primary Care Provider: Fox Ramirez Other Providers: Flavio Doherty ; Lawrence Chan ; Constanza Overton Other Interventions: Discharge Summary Assessment (RN) Last Done: 10/30/20 14:17
== END 2020-10-30 14:49 | disposition home or self-care (01) | DRG 304 ==
LOC: ED 19:55 → 2S 19:55 → SUATTDRO 10-28 01:26

== ENCOUNTER 2021-03-16 20:22 | Inpatient (IN) ==
[2021-03-16] MEDS ORDERED: ONDANSETRON INJ 2 MG/ML 2 ML VIAL IV STA (21:32)
[2021-03-16] MEDS ORDERED: SODIUM CHLORIDE 0.9% 1000ML 1,000 ML IV ONE (21:49)
[2021-03-16] MEDS ORDERED: fentaNYL citrate 100 MCG/2 ML VIAL IV STA ×2 (21:51→23:44)
[2021-03-16 22:30] LABS: Basophils # (auto) 0.02 K/uL (0-0.2); Basophils % (auto) 0.1 %; Eosinophils # (auto) 0.08 K/uL (0-0.5); Eosinophils % (auto) 0.5 %; Hematocrit (blood only) 32.7 % (37-47); Hemoglobin 10.8 g/dL (12.0-16.0); Immature Granulocytes # (auto) 0.04 K/uL (0.00-0.02); Immature Granulocytes % (auto) 0.2 %; Lymphocytes # (auto) 1.45 K/uL (1.2-3.4); Lymphocytes % (auto) 8.7 %; Mean Corpuscular Hemoglobin 30.9 pg (25-34); Mean Corpuscular Volume 93.7 fL (80-100); Mean Platelet Volume 9.6 fL (7.4-10.4); Monocytes # (auto) 1.72 K/uL (0.11-0.59); Monocytes % (auto) 10.3 %; Neutrophils # (auto) 13.32 K/uL (1.4-6.5); Neutrophils % (auto) 80.2 %; Platelet Count 326 K/uL (130-400); RDW Coefficient of Variation 14.5 % (11.5-14.5); RDW Standard Deviation 49.8 fL (36.4-46.3); Red Blood Count 3.49 M/uL (4.2-5.4); White Blood Count 16.63 K/uL (4.8-10.8)
[2021-03-16] MEDS ORDERED: PIPERACILL/TAZOBAC CONSULT ACTIVE PRN (22:47)
[2021-03-16] MEDS ORDERED: PIPERACILLIN/TAZOBACTAM 4.5 GM/120 ML BAG IV ONE (22:47)
[2021-03-16 22:52] LABS: Alanine Aminotransferase 15 U/L (12-78); Albumin Level 3.8 gm/dl (3.4-5.0); Aspartate Aminotransferase 10 U/L (15-37); BUN Creatinine Ratio 26.2 (10-20); Blood Urea Nitrogen 61 mg/dl (7-18); Calcium 9.9 mg/dl (8.5-10.1); Carbon Dioxide 28 mmol/L (21-32); Chloride 100 mmol/L (98-107); Creatinine Clr Calc Pharmacy 20.4 ml/min; Est GFR (African American) 21.4 ml/min; Est GFR (Non-African American) 18.4 ml/min; Glucose 171 mg/dl (70-99); Lipase 134 U/L (73-393); Potassium 3.3 mmol/L (3.5-5.1); Sodium 135 mmol/L (136-145)
[2021-03-16 22:56] LABS: Albumin Globulin Ratio 1.2 (0.9-2); Alkaline Phosphatase 68 U/L (45-117); Bilirubin,Total 1.3 mg/dl (0.2-1); Globulin 3.1 gm/dl (2.5-4.0); Total Protein 6.9 gm/dl (6.4-8.2); Troponin I < 0.015 ng/ml (0-0.045)
--- NOTE | 2021-03-16 23:11 | Emergency Department Note ---
Impression & Plan Diverticulitis large intestine, Weakness, Abdominal pain, LLQ, Acute abdominal pain in left flank, HTN (hypertension) ED Provider Note Provider: Isaac Ferris MD DATE OF SERVICE: 03/16/2021 CHIEF COMPLAINT: Urinary symptoms, left abdominal pain and flank pain HISTORY OF PRESENT ILLNESS: Patient is a 85-year-old female with a past medical history including diabetes, hypertension, CHF, left kidney cyst, CKD, and diverticulitis presenting here today stating that she began experiencing left- sided abdominal and flank pain yesterday. Endorse some nausea and urinary frequency. Patient stated feels like she needs to defecate but this has been happening. There are some nausea but denies vomiting. Patient states she feels a little bit short of breath but denies chest pain. Reports fevers but denies chills. Patient reports she did have a steroid shot in her back a week or 2 ago. Patient states she is been weak at home and unable to ambulate as normal. Patient states her son was finally able to convince her to come here today for evaluation given her complaints. Patient's blood pressure has been elevated. Pain has been fairly continuous. REVIEW OF SYSTEMS: A total of 10 review of systems was obtained and negative except as stated above in the HPI. PAST MEDICAL HISTORY: As noted above MEDICATIONS: Reviewed home medications SOCIAL HISTORY: Lives at home with son, non-smoker PHYSICAL EXAM: GENERAL: alert and oriented in no acute distress on stretcher but appears some what fatigued Head: normocephalic and atraumatic EYES: No injection, discharge or icterus. NECK: Trachea midline. Supple. ENT: Mucous membranes pink and moist. LUNGS: Airway patent. No retractions. Breath sounds clear with good air entry bilaterally. HEART: Regular rate and rhythm. No chest wall tenderness ABDOMEN: Soft with some left lower quadrant tenderness. Nonperitoneal. No significant right-sided tenderness. BACK: No bilateral flank tenderness. SKIN: Acyanotic, warm, dry, without rashes EXTREMITIES: Without swelling, tenderness or deformity NEUROLOGICAL: No focal deficits. No aphasia. No facial droop or slurred speech EK bpm normal sinus rhythm. No PVC or PAC. No acute ST segment elevation or depression. QTC 449. CONTINUOUS CARDIAC MONITORING: was ordered and showed a heart rate of 60s to 80s bpm in normal sinus rhythm 1 view chest x-ray per my interpretation some cardiomegaly without pneumonia or pneumothorax. Slight vascular congestion. No free air under the diaphragm. Patient's laboratory studies and imaging reviewed. Differential includes Appendicitis, infections, diverticulitis, UTI, obstruction, mesenteric ischemia, aortic pathology, inflammatory bowel disease, renal colic, PUD, pancreatitis, biliary pathology, hernia, volvulus, constipation, cardiac issues, pulmonary issues as well as other pathologies. IMPRESSION/MEDICAL DECISION MAKING: Patient does complain of some left lower abdominal and flank pain. Pain is been fairly continuous less like a kidney stone over possible. Endorses urinary symptoms. Question possible UTI, pyelonephritis, kidney stone, diverticulitis, or other pathology. Ports a little bit shortness of breath. Covid test was sent. Blood work shows no leukocytosis of 16. Afebrile here. Not hypotensive but hypertensive. Chronic renal function appears continuous. Some slight hypokalemia noted. No evidence of acute hepatitis pancreatitis based on labs. Troponin is undetectable and EKG without acute ischemic changes. Given the leukocytosis, lactate and cultures ordered. Empiric dose of Zosyn was ordered given concerns for possible infection. Given some fentanyl, Zofran, and IV fluid as well. CT scan without contrast of the abdomen pelvis per report as below shows acute sigmoid diverticulitis without perforation. And the patient does appear septic at this point does appear systemically infected with elevated white blood cell count. Not peritoneal. Discussed with her findings and believe further care in the hospital is warranted. The hospitalist contacted. The patient was agreed with this plan. Patient given evening blood pressure medications. Blood pressure has improved here some pain control given additional fentanyl. Urinalysis not impressive for infection. DIAGNOSIS: Acute sigmoid diverticulitis, abdominal pain, weakness, hypertension DISPOSITION: Hospitalist will evaluate Patient was agreeable with this plan. Preliminary Findings Only See Final Report For Complete Findings CT ABDOMEN & PELVIS Without Contrast: Acute sigmoid diverticulitis. No macro perforation or abscess. Cholecystectomy. Atrophic kidneys. Incompletely characterized lesion in the left renal pelvis measuring 3.8 cm. Slightly increased in size from the prior (10/27/2020) measuring 4.1 x 3.8 centimeters previously 3.8 x 3.5 cm. Hysterectomy. Radiologist: Shaji Hickman MD Study ready at 23:18 and initial results transmitted at 23:33 Past Med/Surg History Medical History (Updated 03/16/21 @ 23:49 by Isaac Ferris M.D.) CHF (congestive heart failure) Chronic back pain Chronic kidney disease (CKD), stage IV (severe) Diabetes mellitus, type 2 Hearing deficit History of kidney stones HTN (hypertension) Hyperlipidemia Kidney cysts LEFT SIDE>BEING MONITORED BY UROLOGY [facility] Morbid obesity with BMI of 40.0-44.9, adult Nocturnal hypoxemia On home oxygen therapy 2L N/C at HS only Osteoarthritis Spinal stenosis Surgical History H/O: hysterectomy History of arthroscopy of left knee History of bilateral tubal ligation History of cardiac cath ?2009--@ [place]--no stents History of colonoscopy History of cystoscopy History of dilatation and curettage History of esophagogastroduodenoscopy (EGD) History of tooth extraction all teeth Hx of appendectomy Hx of cholecystectomy Nausea and vomiting after administration of anesthetic agent Family History Sister Family history of diabetes mellitus Sister Family history of diabetes mellitus Brother Family history of diabetes mellitus Family history of esophageal cancer Brother Family history of esophageal cancer Father Lung cancer Other No family history of adverse response to anesthesia No significant family history Social History Smoking Status: Never smoker Second Hand Exposure: No; Hx Alcohol Use: No Preferred Language: Uruguayan Communication Ability: Effective Fleecer Required: No Beliefs That Will Affect Care: None marital status: / Current Living Situation: Family Current Living Situation Comment: WITH SON Feels Safe at Home: Yes Assistive Devices: Denture - Upper, Denture - Lower, Glasses, Oxygen - at Night and Walker Allergies Allergies Allergy/AdvReac Type Severity Reaction Status Date / Time No Known Allergies Allergy Verified 03/16/21 23:41 Home Meds Home Medications Medication Instructions Recorded Confirmed acetaminophen [Tylenol Extra 1,000 mg PO AMPM 12/30/18 03/08/21 Strength] aspirin 81 mg PO QAM 12/30/18 03/08/21 isosorbide dinitrate 20 mg PO TID 12/30/18 03/08/21 rosuvastatin 10 mg PO QPM 12/30/18 03/08/21 famotidine [Pepcid] 20 mg PO QPM 11/18/19 03/08/21 carvedilol 12.5 mg tablet 18.75 mg PO BID tab 05/11/20 03/08/21 ergocalciferol (vitamin D2) 50,000 unit PO MONTHLY 06/23/20 03/04/21 lidocaine [Salonpas (lidocaine)] 1 patch TOPICAL QAM 06/23/20 03/08/21 insulin human U-100 NPH-regulr 1 sliding scale dose SUBCUT 02/17/21 03/08/21 70-30 mix 100 unit/mL subcutaneous USEASDIRECTD susp Previous Rx's Medication Instructions Recorded Oxygen Home #1 ea 05/31/19 diclofenac sodium 1 % topical gel 4 g TOP QID #100 g 09/09/20 furosemide 60 mg PO DAILY #60 tab 10/30/20 hydralazine 25 mg tablet See Rx Instructions .ROUTE 11/03/20 .COMPLEX #270 tab hydralazine 50 mg tablet 50 mg PO TID #270 tab 11/03/20 sennosides 8.6 mg-docusate sodium 1 tab-cap PO BID #180 tab 11/03/20 50 mg tablet allopurinol 100 mg tablet 100 mg PO BID #180 tab 02/17/21 Results & Data (ED) Vital Signs Vital Signs - 24 hr 03/16/21 20:34 03/16/21 21:47 03/16/21 22:12 Temperature 36.8 C Temperature Source Temporal Artery Scan Pulse Rate 82 80 87 Pulse Rate from SpO2 Sensor 80 89 Respiratory Rate 16 16 16 Respiratory Effort / Characteristics Non-Labored Spontaneous Respiratory Depth Normal Respiratory Pattern Regular Blood Pressure 193/95 H 225/72 H Blood Pressure Mean 127 123 Blood Pressure Position Sitting Pulse Oximetry 94 91 90 Oxygen Delivery Method Room Air Sepsis Recent Fever Within 48 Hours No Sepsis New/Unexplained Change in Mental Status No Sepsis Action Taken by Nursing No Action Required 03/16/21 22:15 03/16/21 22:28 03/16/21 22:30 Temperature Temperature Source Pulse Rate 78 79 76 Pulse Rate from SpO2 Sensor 79 76 Respiratory Rate 18 13 21 Respiratory Effort / Characteristics Respiratory Depth Respiratory Pattern Blood Pressure 211/81 H 213/87 H Blood Pressure Mean 124 129 Blood Pressure Position Pulse Oximetry 94 93 95 Oxygen Delivery Method Room Air Sepsis Recent Fever Within 48 Hours Sepsis New/Unexplained Change in Mental Status Sepsis Action Taken by Nursing 03/16/21 23:00 03/16/21 23:01 Temperature Temperature Source Pulse Rate 80 79 Pulse Rate from SpO2 Sensor 80 Respiratory Rate 24 18 Respiratory Effort / Characteristics Respiratory Depth Respiratory Pattern Blood Pressure 229/91 H Blood Pressure Mean 137 Blood Pressure Position Pulse Oximetry 93 Oxygen Delivery Method Sepsis Recent Fever Within 48 Hours Sepsis New/Unexplained Change in Mental Status Sepsis Action Taken by Nursing Laboratory Data Result diagrams: 03/16/21 22:19 03/16/21 22:19 Lab Results 03/16/21 03/16/21 03/16/21 Range/Units 22:19 22:19 22:27 WBC 16.63 H (4.8-10.8) K/uL RBC 3.49 L (4.2-5.4) M/uL Hgb 10.8 L (12.0-16.0) g/dL Hct 32.7 L (37-47) % MCV 93.7 (80-100) fL MCH 30.9 (25-34) pg MCHC 33.0 (32-36) g/dL RDW Std Deviation 49.8 H (36.4-46.3) fL RDW Coeff of Noemy 14.5 (11.5-14.5) % Plt Count 326 (130-400) K/uL MPV 9.6 (7.4-10.4) fL Immature Gran % (Auto) 0.2 % Neut % (Auto) 80.2 % Lymph % (Auto) 8.7 % Garfield % (Auto) 10.3 % Eos % (Auto) 0.5 % Baso % (Auto) 0.1 % Neut # (Auto) 13.32 H (1.4-6.5) K/uL Lymph # (Auto) 1.45 (1.2-3.4) K/uL Garfield # (Auto) 1.72 H (0.11-0.59) K/uL Eos # (Auto) 0.08 (0-0.5) K/uL Baso # (Auto) 0.02 (0-0.2) K/uL Immature Gran # (Auto) 0.04 H (0.00-0.02) K/uL Sodium 135 L (136-145) mmol/L Potassium 3.3 L (3.5-5.1) mmol/L Chloride 100 (98-107) mmol/L Carbon Dioxide 28 (21-32) mmol/L Anion Gap 7.0 (3-11) BUN 61 H (7-18) mg/dl Creatinine 2.32 H (0.6-1.2) mg/dl Est Cr Clr Drug Dosing 20.4 ml/min Est GFR ( Amer) 21.4 ml/min Est GFR (Non-Af Amer) 18.4 ml/min BUN/Creatinine Ratio 26.2 H (10-20) Glucose 171 H (70-99) mg/dl Calcium 9.9 (8.5-10.1) mg/dl Total Bilirubin 1.3 H (0.2-1) mg/dl AST 10 L (15-37) U/L ALT 15 (12-78) U/L Alkaline Phosphatase 68 (45-117) U/L Troponin I < 0.015 (0-0.045) ng/ml Total Protein 6.9 (6.4-8.2) gm/dl Albumin 3.8 (3.4-5.0) gm/dl Globulin 3.1 (2.5-4.0) gm/dl Albumin/Globulin Ratio 1.2 (0.9-2) Lipase 134 (73-393) U/L Urine Color Urine Appearance (Clear) Urine pH (4.5-7.5) Ur Specific Chelsea (1.000-1.030) Urine Protein (Negative) Urine Glucose (UA) (Negative) Urine Ketones (Negative) Urine Blood (Negative) Urine Nitrite (Negative) Urine Bilirubin (Negative) Urine Urobilinogen (Negative) Ur Leukocyte Esterase (Negative) Urine WBC (Auto) (0-5) /hpf Urine RBC (Auto) (0-4) /hpf U Hyaline Cast (Auto) (0-5) /lpf U Epithel Cells (Auto) (0-5) /lpf Urine Bacteria (Auto) (Negative) COVID-19 Eval Order Covid19 at [facility] SARS-CoV-2 (PCR) (Negative) 03/16/21 03/16/21 Range/Units 22:27 23:18 WBC (4.8-10.8) K/uL RBC (4.2-5.4) M/uL Hgb (12.0-16.0) g/dL Hct (37-47) % MCV (80-100) fL MCH (25-34) pg MCHC (32-36) g/dL RDW Std Deviation (36.4-46.3) fL RDW Coeff of Noemy (11.5-14.5) % Plt Count (130-400) K/uL MPV (7.4-10.4) fL Immature Gran % (Auto) % Neut % (Auto) % Lymph % (Auto) % Garfield % (Auto) % Eos % (Auto) % Baso % (Auto) % Neut # (Auto) (1.4-6.5) K/uL Lymph # (Auto) (1.2-3.4) K/uL Garfield # (Auto) (0.11-0.59) K/uL Eos # (Auto) (0-0.5) K/uL Baso # (Auto) (0-0.2) K/uL Immature Gran # (Auto) (0.00-0.02) K/uL Sodium (136-145) mmol/L Potassium (3.5-5.1) mmol/L Chloride (98-107) mmol/L Carbon Dioxide (21-32) mmol/L Anion Gap (3-11) BUN (7-18) mg/dl Creatinine (0.6-1.2) mg/dl Est Cr Clr Drug Dosing ml/min Est GFR ( Amer) ml/min Est GFR (Non-Af Amer) ml/min BUN/Creatinine Ratio (10-20) Glucose (70-99) mg/dl Calcium (8.5-10.1) mg/dl Total Bilirubin (0.2-1) mg/dl AST (15-37) U/L ALT (12-78) U/L Alkaline Phosphatase (45-117) U/L Troponin I (0-0.045) ng/ml Total Protein (6.4-8.2) gm/dl Albumin (3.4-5.0) gm/dl Globulin (2.5-4.0) gm/dl Albumin/Globulin Ratio (0.9-2) Lipase (73-393) U/L Urine Color Yellow Urine Appearance Clear (Clear) Urine pH 6.0 (4.5-7.5) Ur Specific Chelsea 1.011 (1.000-1.030) Urine Protein 1+ H (Negative) Urine Glucose (UA) Negative (Negative) Urine Ketones Negative (Negative) Urine Blood Negative (Negative) Urine Nitrite Negative (Negative) Urine Bilirubin Negative (Negative) Urine Urobilinogen Negative (Negative) Ur Leukocyte Esterase Negative (Negative) Urine WBC (Auto) 1-5 (0-5) /hpf Urine RBC (Auto) 0-4 (0-4) /hpf U Hyaline Cast (Auto) 1-5 (0-5) /lpf U Epithel Cells (Auto) 10-20 H (0-5) /lpf Urine Bacteria (Auto) Negative (Negative) COVID-19 Eval Order SARS-CoV-2 (PCR) NEGATIVE (Negative) Administered Medications Discontinued Medications Fentanyl Citrate (Fentanyl Citrate 100 Mcg/2 Ml Vial) 50 mcg IV NOW STA Stop: 03/16/21 21:52 Last Admin: 03/16/21 22:26 Dose: 50 mcg Documented by: [id number] Sodium Chloride (Nss 1000ml) 1,000 mls @ 999 mls/hr IV .Q1H1M ONE Stop: 03/16/21 22:49 Last Admin: 03/16/21 22:25 Dose: 999 mls/hr Documented by: [id number] Piperacillin Sod/Tazobactam Sod (Zosyn) 4.5 gm in 120 mls @ 240 mls/hr IV NOW ONE Stop: 03/16/21 23:16 Last Admin: 03/16/21 23:14 Dose: 240 mls/hr Documented by: [id number] Ondansetron HCl (Ondansetron Inj 2 Mg/Ml 2 Ml Vial) 4 mg IV NOW STA Stop: 03/16/21 21:33 Last Admin: 03/16/21 22:26 Dose: 4 mg Documented by: [id number] Discharge Plan Visit Data Chief Complaint: Urinary Symptoms Stated Complaint: UTI ED Provider: Isaac Ferris Discharge Problem: Diverticulitis large intestine, Weakness, Abdominal pain, LLQ, Acute abdominal pain in left flank, HTN (hypertension) Patient Disposition: Being Evaluated by Hospitalist Forms Stand Alone Forms: [facility] Prescriptions Prescriptions: No Action sennosides-docusate sodium [Senna with Docusate Sodium] 8.6-50 mg tablet 1 tab-cap PO BID Qty: 180 RF: 3 hydralazine 50 mg tablet 50 mg PO TID Qty: 270 RF: 3 hydralazine 25 mg tablet See Rx Instructions .ROUTE .COMPLEX Qty: 270 RF: 3 diclofenac sodium 1 % gel 4 g TOP QID Qty: 100 RF: 6 Humulin 70/30 U-100 Insulin 100 unit/mL (70-30) suspension 1 sliding scale dose subcut USEASDIRECTD RF: 0 allopurinol 100 mg tablet 100 mg PO BID Qty: 180 RF: 3 (DME) Oxygen Home Liters Per Minute See Dose Instructions .ROUTE .MEDSUPPLY Qty: 1 RF: 0 ergocalciferol (vitamin D2) 1,250 mcg (50,000 unit) capsule 50,000 unit PO MONTHLY RF: 0 lidocaine [Salonpas (lidocaine)] 4 % Adhesive Patch,Medicated 1 patch TOPICAL QAM RF: 0 aspirin 81 mg Tablet,Delayed Release (Dr/Ec) 81 mg PO QAM RF: 0 isosorbide dinitrate 20 mg tablet 20 mg PO TID RF: 0 rosuvastatin 10 mg tablet 10 mg PO QPM RF: 0 acetaminophen [Tylenol Extra Strength] 500 mg Tablet 1,000 mg PO AMPM RF: 0 carvedilol 12.5 mg tablet 18.75 mg PO BID RF: 0 famotidine [Pepcid] 20 mg Tablet 20 mg PO QPM RF: 0 furosemide 40 mg tablet 60 mg PO DAILY Qty: 60 RF: 0 Humulin 70/30 U-100 Insulin 100 unit/mL (70-30) suspension See Rx Instructions .ROUTE .COMPLEX RF: 0 Referrals Referrals: Fox Ramirez MD [Primary Care Provider] - Discharge Problem: Diverticulitis large intestine Qualifiers: Diverticulitis bleeding: without bleeding Diverticulitis complication: without perforation or abscess Qualified Code(s): K57.32 - Diverticulitis of large intestine without perforation or abscess without bleeding HTN (hypertension) Qualifiers: Hypertension type: unspecified Qualified Code(s): I10 - Essential (primary) hypertension
[2021-03-16] MEDS ORDERED: carvediloL 12.5 MG TAB PO ONE (23:44)
[2021-03-16] MEDS ORDERED: hydrALAZINE HCL 25 MG TAB PO STA (23:44)
[2021-03-16 23:47] LABS: Appearance Urine Clear (Clear); Bacteria Urine Automated Negative (Negative); Bilirubin Urine Negative (Negative); Blood Urine Negative (Negative); Color Urine Yellow; Glucose Urine UA Negative (Negative); Ketones Urine Negative (Negative); Leukocyte Esterase Urine Negative (Negative); Nitrite Urine Negative (Negative); Protein Urine 1+ (Negative); RBC Urine Automated 0-4 /hpf (0-4); Specific Gravity Urine 1.011 (1.000-1.030); Urobilinogen Urine Negative (Negative)
[2021-03-17] MEDS ORDERED: POTASSIUM CHLORIDE CRTAB 20 MEQ TABCR PO STA (00:11)
[2021-03-17 00:20] LABS: Magnesium 2.4 mg/dl (1.8-2.4)
[2021-03-17] MEDS ORDERED: LORazepam 0.25 MG/0.5 ML VIAL IV STA (00:33)
[2021-03-17] MEDS ORDERED: LORazepam 0.5 MG/1 ML VIAL IV STA (00:35)
--- NOTE | 2021-03-17 00:35 | History & Physical Report ---
Date of Service March 17, 2021 Assessment & Plan (1) Hypertensive crisis: Multifactorial Abdominal pain from acute diverticulitis Anxiety contributory missed home BP meds BP significantly improved after initial intervention at the ER chronic diastolic heart failure (EF 55 to 60%, TTE 2019), patient on the dry side hx LBBB Left renal mass, some enlargement on initial CT read, patient follows with [facility] DM2 insulin requiring (well-controlled as of recent hemoglobin A1c of 6.3 Aug) CRI, creatinine at baseline chronic anemia, hemoglobin at baseline Hypokalemia secondary to poor p.o. intake, home insulin Medical telemetry Analgesia, anxiolytic as needed Continue home BP meds, may need dose titration Hold home diuretics for now Clear liquids for now Zosyn Outpatient GI consult for diverticulitis Outpatient [facility] follow-up for left renal mass Basal insulin adjusted for clear liquid diet for now, ISS BG goal [id number], carb count coverage Replace potassium DVT prophylaxis with Heparin subcu Full code Text document was generated using Organizer voice recognition software. It may contain grammatical or spelling errors. Kindly contact undersigned for clarification of any documentation item in question. History of Present Illness Chief Complaint: Abdominal pain Primary Care Provider: Fox Ramirez MD History obtained from patient and records. Medical history significant for chronic diastolic heart failure (EF 55 to 60%, TTE 2019), chronic left bundle branch block, hypertension, DM2 insulin requiring, CRI (baseline creatinine 2.5), GERD, chronic constipation, chronic anemia (baseline hemoglobin of 11), left renal mass, history diverticulosis. Last confinement October 2020 for hypertensive urgency. Incidental finding of left renal mass on CAT scan highly concerning for neoplasm. Patient follows with [facility] outpatient. 2 days history of achy left-sided abdominal pain with constipation. Some nausea, no emesis. Low-grade fever, some chills as per patient. Patient denies chest pain, S OB. No prior episodes in the past. Achy headache symptoms. Chronic back pain somewhat worse as per patient. At the ER, patient received Zosyn for diverticulitis. MEDICAL HISTORY: As above. 2004 colonoscopy showed diverticulosis, small internal hemorrhoids SURGERIES: She has had knee surgeries, hysterectomy, bilateral tubal ligation, cholecystectomy and appendectomy. FAMILY HISTORY: Laryngeal cancer, stroke and throat cancer. 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 Allergies Allergy/AdvReac Type Severity Reaction Status Date / Time No Known Allergies Allergy Verified 03/16/21 23:41 Home Medications Medication Instructions Recorded Confirmed Type acetaminophen [Tylenol Extra 1,000 mg PO AMPM 12/30/18 03/17/21 History Strength] aspirin 81 mg PO QAM 12/30/18 03/17/21 History isosorbide dinitrate 20 mg PO TID 12/30/18 03/17/21 History rosuvastatin 10 mg PO QPM 12/30/18 03/17/21 History Oxygen Home #1 ea 05/31/19 03/08/21 Rx famotidine [Pepcid] 20 mg PO QPM 11/18/19 03/17/21 History carvedilol 12.5 mg tablet 18.75 mg PO BID tab 05/11/20 03/17/21 History ergocalciferol (vitamin D2) 50,000 unit PO MONTHLY 06/23/20 03/17/21 History lidocaine [Salonpas (lidocaine)] 1 patch TOPICAL QAM 06/23/20 03/17/21 History furosemide 60 mg PO DAILY #60 tab 10/30/20 03/17/21 Rx hydralazine 50 mg tablet 50 mg PO TID #270 tab 11/03/20 03/17/21 Rx sennosides 8.6 mg-docusate sodium 1 tab-cap PO BID #180 tab 11/03/20 03/17/21 Rx 50 mg tablet hydralazine 25 mg PO TID 03/16/21 03/17/21 History insulin NPH and regular human See Rx Instructions .ROUTE .COMPLEX 03/16/21 03/17/21 History [Humulin 70/30 U-100 Insulin] allopurinol 200 mg PO DAILY 03/17/21 03/17/21 History diclofenac sodium 4 g TOP QID PRN 03/17/21 03/17/21 History Past Med/Surg History Medical History (Updated 03/17/21 @ 09:01 by Kristine Boykin PA-C) CHF (congestive heart failure) Chronic back pain Chronic kidney disease (CKD), stage IV (severe) Diabetes mellitus, type 2 Hearing deficit History of kidney stones HTN (hypertension) Hyperlipidemia Kidney cysts LEFT SIDE>BEING MONITORED BY UROLOGY [facility] Morbid obesity with BMI of 40.0-44.9, adult Nocturnal hypoxemia On home oxygen therapy 2L N/C at HS only Osteoarthritis Spinal stenosis Surgical History H/O: hysterectomy History of arthroscopy of left knee History of bilateral tubal ligation [place] of cardiac [place] [facility] [place] History of colonoscopy History of cystoscopy History of dilatation and curettage History of esophagogastroduodenoscopy (EGD) History of tooth extraction all teeth Hx of appendectomy Hx of cholecystectomy Nausea and vomiting after administration of anesthetic agent Family History Sister Family history of diabetes mellitus Sister Family history of diabetes mellitus Brother Family history of diabetes mellitus Family history of esophageal cancer Brother Family history of esophageal cancer Father Lung cancer Other No family history of adverse response to anesthesia No significant family history Social History Smoking Status: Never smoker Second Hand Exposure: No; Hx Alcohol Use: No Hx Substance Use: No Preferred Language: Slovak Communication Ability: Effective Manager Farm Required: No Beliefs That Will Affect Care: None marital status: / Current Living Situation: Family Current Living Situation Comment: WITH SON Other Information That Helps Us Care for You: No Feels Safe at Home: Yes Safety Concerns: Feels Safe At This Time Assistive Devices: Glasses and Oxygen - at Night Review of Systems Review of Systems: As per HPI, all 10 systems reviewed, all other ROS negative Physical Exam Physical Exam: GENERAL: Anxious, obese, uncomfortable, no respiratory distress SKIN: Pallor, warm HEENT: Pale palpebral conjunctivae, no ptosis, dry buccal mucosa NECK : Supple, short neck, no tenderness CHEST : CTA, no tenderness HEART : RRR, no obvious murmurs ABDOMEN: Some distention, left-sided abdominal tenderness EXTREMITIES : Minimal LE swelling , no LE tenderness, no other conspicuous deformities noted NEUROLOGIC : Coherent, no facial asymmetry, no other gross focality Results & Data Results & Data ([facility]) Vital Signs (Past 12 Hours) Vital Signs Temp Pulse Resp BP Pulse Ox 03/16/21 23:01 79 18 229/91 H 93 03/16/21 23:00 80 24 03/16/21 22:30 76 21 213/87 H 95 03/16/21 22:28 79 13 211/81 H 93 03/16/21 22:15 78 18 94 03/16/21 22:12 87 16 90 03/16/21 21:47 80 16 225/72 H 91 03/16/21 20:34 36.8 C 82 16 193/95 H 94 Laboratory Results Laboratory Results WBC 16.63 K/uL (4.8-10.8) H 03/16/21 22:19 RBC 3.49 M/uL (4.2-5.4) L 03/16/21 22:19 Hgb 10.8 g/dL (12.0-16.0) L 03/16/21 22:19 Hct 32.7 % (37-47) L 03/16/21 22:19 MCV 93.7 fL (80-100) 03/16/21 22:19 MCH 30.9 pg (25-34) 03/16/21 22:19 MCHC 33.0 g/dL (32-36) 03/16/21 22:19 RDW Std Deviation 49.8 fL (36.4-46.3) H 03/16/21 22:19 RDW Coeff of Noemy 14.5 % (11.5-14.5) 03/16/21 22:19 Plt Count 326 K/uL (130-400) 03/16/21 22:19 MPV 9.6 fL (7.4-10.4) 03/16/21 22:19 Immature Gran % (Auto) 0.2 % 03/16/21 22:19 Neut % (Auto) 80.2 % 03/16/21 22:19 Lymph % (Auto) 8.7 % 03/16/21 22:19 [place] % (Auto) 10.3 % 03/16/21 22:19 Eos % (Auto) 0.5 % 03/16/21 22:19 Baso % (Auto) 0.1 % 03/16/21 22:19 Neut # (Auto) 13.32 K/uL (1.4-6.5) H 03/16/21 22:19 Lymph # (Auto) 1.45 K/uL (1.2-3.4) 03/16/21 22:19 [place] # (Auto) 1.72 K/uL (0.11-0.59) H 03/16/21 22:19 Eos # (Auto) 0.08 K/uL (0-0.5) 03/16/21 22:19 Baso # (Auto) 0.02 K/uL (0-0.2) 03/16/21 22:19 Immature Gran # (Auto) 0.04 K/uL (0.00-0.02) H 03/16/21 22:19 Sodium 135 mmol/L (136-145) L 03/16/21 22:19 Potassium 3.3 mmol/L (3.5-5.1) L 03/16/21 22:19 Chloride 100 mmol/L (98-107) 03/16/21 22:19 Carbon Dioxide 28 mmol/L (21-32) 03/16/21 22:19 Anion Gap 7.0 (3-11) 03/16/21 22:19 BUN 61 mg/dl (7-18) H 03/16/21 22:19 Creatinine 2.32 mg/dl (0.6-1.2) H 03/16/21 22:19 Est Cr Clr Drug Dosing 20.4 ml/min 03/16/21 22:19 Est GFR ( Amer) 21.4 ml/min 03/16/21 22:19 Est GFR (Non-Af Amer) 18.4 ml/min 03/16/21 22:19 BUN/Creatinine Ratio 26.2 (10-20) H 03/16/21 22:19 Glucose 171 mg/dl (70-99) H 03/16/21 22:19 Lactate 1.2 mmol/L (0.4-2.0) 03/16/21 23:25 Calcium 9.9 mg/dl (8.5-10.1) 03/16/21 22:19 Magnesium 2.4 mg/dl (1.8-2.4) 03/16/21 22:19 Total Bilirubin 1.3 mg/dl (0.2-1) H 03/16/21 22:19 AST 10 U/L (15-37) L 03/16/21 22:19 ALT 15 U/L (12-78) 03/16/21 22:19 Alkaline Phosphatase 68 U/L (45-117) 03/16/21 22:19 Troponin I < 0.015 ng/ml (0-0.045) 03/16/21 22:19 Total Protein 6.9 gm/dl (6.4-8.2) 03/16/21 22:19 Albumin 3.8 gm/dl (3.4-5.0) 03/16/21 22:19 Globulin 3.1 gm/dl (2.5-4.0) 03/16/21 22:19 Albumin/Globulin Ratio 1.2 (0.9-2) 03/16/21 22:19 Lipase 134 U/L (73-393) 03/16/21 22:19 Urine Color Yellow 03/16/21 23:18 Urine Appearance Clear (Clear) 03/16/21 23:18 Urine pH 6.0 (4.5-7.5) 03/16/21 23:18 Ur Specific [place] 1.011 (1.000-1.030) 03/16/21 23:18 Urine Protein 1+ (Negative) H 03/16/21 23:18 Urine Glucose (UA) Negative (Negative) 03/16/21 23:18 Urine Ketones Negative (Negative) 03/16/21 23:18 Urine Blood Negative (Negative) 03/16/21 23:18 Urine Nitrite Negative (Negative) 03/16/21 23:18 Urine Bilirubin Negative (Negative) 03/16/21 23:18 Urine Urobilinogen Negative (Negative) 03/16/21 23:18 Ur Leukocyte Esterase Negative (Negative) 03/16/21 23:18 Urine WBC (Auto) 1-5 /hpf (0-5) 03/16/21 23:18 Urine RBC (Auto) 0-4 /hpf (0-4) 03/16/21 23:18 U Hyaline Cast (Auto) 1-5 /lpf (0-5) 03/16/21 23:18 U Epithel Cells (Auto) 10-20 /lpf (0-5) H 03/16/21 23:18 Urine Bacteria (Auto) Negative (Negative) 03/16/21 23:18 COVID-19 Eval Order Covid19 at [facility] 03/16/21 22:27 SARS-CoV-2 (PCR) NEGATIVE (Negative) 03/16/21 22:[address] abdomen pelvis initial read: Acute sigmoid diverticulitis. No microperforation or abscess. Cholecystectomy. Atrophic kidneys. Incompletely corrected raised lesion left renal pelvis measuring 3.8 cm slightly increased from prior. Hysterectomy CT head initial read There is no hemorrhage, mass effect, or evidence of acute territorial ischemia by CT criteria. Chest x-ray as per my interpretation cardiomegaly, atelectasis EKG as per my interpretation : Rate 80, NSR, normal axis, no ischemia
[2021-03-17] MEDS: HYDROmorphone INJ 0.5 MG/0.5 ML SYR IV PRN ×2 (01:15→10:25)
[2021-03-17] MEDS ORDERED: GLUCAGON FOR INJ 1 MG VIAL SQ PRN (04:58)
[2021-03-17] MEDS ORDERED: GLUCOSE 10 TABS/TUBE PO PRN (04:58)
[2021-03-17] MEDS ORDERED: CARBOHYDRATES FOR HYPOGLYCEMIA PO PRN (04:58)
[2021-03-17] MEDS ORDERED: POLYETHYLENE (MIRALAX) 17 GM PACK PO PRN (04:58)
[2021-03-17] MEDS ORDERED: POTASSIUM CHLORIDE 40 MEQ in SODIUM CHLORIDE 0.9% 1000ML 1,000 ML IV ONE (04:58)
[2021-03-17] MEDS ORDERED: DEXTROSE 50% 50 ML SYRINGE IV PRN (04:58)
[2021-03-17] MEDS ORDERED: LORazepam 0.25 MG/0.5 ML VIAL IV PRN (04:58)
[2021-03-17] MEDS ORDERED: GLUCOSE 40% GEL 15 GM TUBE PO PRN (04:58)
[2021-03-17] MEDS ORDERED: POLYETHYLENE (MIRALAX) 17 GM PACK PO STA (04:58)
[2021-03-17] MEDS: INSULIN ASPART 100 UNITS/ML 3 ML PEN SC SCH ×5 (05:32→20:14)
[2021-03-17] MEDS: HEPARIN SOD 5,000 UNIT/0.5 ML VIAL SQ SCH ×3 (05:54→21:33)
[2021-03-17] MEDS: ISOSORBIDE DINITRATE 20 MG TAB PO SCH ×4 (06:20→17:43)
[2021-03-17] MEDS: INSULIN GLARGINE SOLOSTAR 100 UNITS/ML 3 ML PEN SC SCH (06:27)
--- NOTE | 2021-03-17 07:08 | CT Scan Report ---
CT SCAN OF THE BRAIN WITHOUT IV CONTRAST CLINICAL HISTORY: Headache. COMPARISON STUDY: CT of the brain dated 01/18/2017. TECHNIQUE: Unenhanced axial CT scan of the brain is performed from the vertex to the skull base. A do se lowering technique was utilized adhering to the principles of ALARA. CT DOSE: 614.27 mGy.cm FINDINGS: Brain parenchyma: There are age-related involutional changes noting mild subcortical and periventric ular microangiopathic change. There is no hemorrhage, mass effect, or evidence of acute territorial i schemia by CT criteria. Sher-white matter differentiation is preserved. No extra-axial fluid collecti on is seen. Ventricles, sulci, cisterns: Prominent secondary to involutional change. Intracranial vasculature: There is atherosclerotic calcification of the cavernous carotid and vertebr al arteries. Calvarium: Unremarkable. Sinuses and mastoids: Trace mucosal thickening is seen in the right maxillary antrum. The remaining v isualized paranasal sinuses are clear. The mastoid air cells are well pneumatized. Orbits: The bony orbits are grossly intact. IMPRESSION: There is no hemorrhage, mass effect, or evidence of acute territorial ischemia by CT jackyt nazario. ACT 112: Negative or not required by law. Electronically signed by: Marco Morocho M.D. 03/17/2021 7:07 AM
[2021-03-17] MEDS: DOCUSATE SODIUM/SENNA 50/8.6MG TAB PO SCH ×2 (08:13→20:03)
[2021-03-17] MEDS: hydrALAZINE HCL 25 MG TAB PO SCH ×3 (08:13→20:03)
[2021-03-17] MEDS: allopurinoL 100 MG TAB PO SCH (08:14)
[2021-03-17] MEDS: ASPIRIN 81 MG ECTAB PO SCH (08:14)
[2021-03-17] MEDS: carvediloL 6.25 MG TAB PO SCH ×2 (08:14→20:03)
[2021-03-17] MEDS: PIPERACILLIN/TAZOBACTAM 3.375 GM in DEXTROSE 5% 100 ML IV SCH ×2 (08:15→20:03)
[2021-03-17] MEDS: LIDOCAINE 5% 1 PATCH TD SCH (08:15)
[2021-03-17] MEDS: traMADol HCL 50 MG TABLET PO PRN (08:19)
[2021-03-17] MEDS ORDERED: INSULIN GLARGINE SOLOSTAR 100 UNITS/ML 3 ML PEN SC SCH (09:00)
--- NOTE | 2021-03-17 09:01 | Gastrointestinal Consultation ---
Date of Consultation March 17, 2021 Assessment & Plan (1) Abdominal pain: This is a 85-year-old female presented with left lower quadrant opal discomfort x2 days. Found to have leukocytosis, concern is for diverticulitis, and CTAP is pending. On exam, abdomen is soft, but she is moderately tender over the left lower quadrant, without peritoneal signs. -Await CTAP -Continue empiric ABX -IVF -Clear liquids -Analgesia as needed -Antiemetics as needed -Monitor and correct electrolytes -Monitor and document stool output Thank you for allowing us to participate in the care of this patient. Please call with any acute changes, questions or concerns. Please see addendum below with additional recommendation from my supervising physician. Supervising Physician Co-Signing Physician Notes Consult for diverticulitis. PE noteable for feeling slightly tender in left lower quadrant area Labs sig for wbc count on zosyn. Slightly hypertensive. Labs/imaging reviewed- ct with findings of sigmoid diverticulitis. Complete course of 10-14 days of abx for diverticulitis. She declined outpatient colonoscopy in 8 weeks. Advance diet as tolerated. History of Present Illness Reason for Consultation: diverticulitis Requesting Physician: Dr. Mclean Attending Physician: Brenden Mosher MD History of Present Illness This is a 85 y/o female with PMhx chronic diastolic heart failure (EF 55 to 60%, TTE 2019), chronic left bundle branch block,hypertension, DM2 insulin requiring, CRI (baseline creatinine 2.5), GERD, chronic constipation, chronic anemia (baseline hemoglobin of 11), left renal mass, history diverticulosis, who presented to the ER yesterday for LLQ abd pain x 2 days. On arrival leukocytosis noted along with hyponatremia, hypokalemia, stable chronic anemia and baseline CKD. CTAP was done and is pending. She was started on empiric antibiotics. She tolerated some clear liquids today for breakfast. She states she can have periods of constipation improved by senna. Last BM was yesterday, formed and brown. Denies nausea vomiting, fevers or chills, chest pain or shortness of breath, melena or hematochezia, hematemesis, diarrhea. Last colonoscopy in 2005: Diverticulosis. - Internal small hemorrhoids were found. - The exam was otherwise normal to the cecum. Allergies Allergy/AdvReac Type Severity Reaction Status Date / Time No Known Allergies Allergy Verified 03/16/21 23:41 Home Medications Medication Instructions Recorded Confirmed Type acetaminophen [Tylenol Extra 1,000 mg PO AMPM 12/30/18 03/17/21 History Strength] aspirin 81 mg PO QAM 12/30/18 03/17/21 History isosorbide dinitrate 20 mg PO TID 12/30/18 03/17/21 History rosuvastatin 10 mg PO QPM 12/30/18 03/17/21 History Oxygen Home #1 ea 05/31/19 03/08/21 Rx famotidine [Pepcid] 20 mg PO QPM 11/18/19 03/17/21 History carvedilol 12.5 mg tablet 18.75 mg PO BID tab 05/11/20 03/17/21 History ergocalciferol (vitamin D2) 50,000 unit PO MONTHLY 06/23/20 03/17/21 History lidocaine [Salonpas (lidocaine)] 1 patch TOPICAL QAM 06/23/20 03/17/21 History furosemide 60 mg PO DAILY #60 tab 10/30/20 03/17/21 Rx hydralazine 50 mg tablet 50 mg PO TID #270 tab 11/03/20 03/17/21 Rx sennosides 8.6 mg-docusate sodium 1 tab-cap PO BID #180 tab 11/03/20 03/17/21 Rx 50 mg tablet hydralazine 25 mg PO TID 03/16/21 03/17/21 History insulin NPH and regular human See Rx Instructions .ROUTE .COMPLEX 03/16/21 03/17/21 History [Humulin 70/30 U-100 Insulin] allopurinol 200 mg PO DAILY 03/17/21 03/17/21 History diclofenac sodium 4 g TOP QID PRN 03/17/21 03/17/21 History Patient History Medical History (Updated 03/17/21 @ 09:01 by Kristine Boykin PA-C) CHF (congestive heart failure) Chronic back pain Chronic kidney disease (CKD), stage IV (severe) Diabetes mellitus, type 2 Hearing deficit History of kidney stones HTN (hypertension) Hyperlipidemia Kidney cysts [place] SIDE[place] [facility] [place]bid obesity with BMI of 40.0-44.9, adult Nocturnal hypoxemia On home oxygen therapy 2L N/C at HS only Osteoarthritis Spinal stenosis Surgical History H/O: hysterectomy History of arthroscopy of left knee History of bilateral tubal ligation History of cardiac cath ?2009[place]@ [facility] [place] History of colonoscopy History of cystoscopy History of dilatation and curettage History of esophagogastroduodenoscopy (EGD) History of tooth extraction all teeth Hx of appendectomy Hx of cholecystectomy Nausea and vomiting after administration of anesthetic agent Family History Sister Family history of diabetes mellitus Sister Family history of diabetes mellitus Brother Family history of diabetes mellitus Family history of esophageal cancer Brother Family history of esophageal cancer Father Lung cancer Other No family history of adverse response to anesthesia No significant family history Social History Smoking Status: Never smoker Second Hand Exposure: No; Hx Alcohol Use: No Hx Substance Use: No Preferred Language: Wolof Communication Ability: Effective Wheat Cleaner Required: No Beliefs That Will Affect Care: None marital status: / Current Living Situation: Family Current Living Situation Comment: WITH SON Other Information That Helps Us Care for You: No Feels Safe at Home: Yes Safety Concerns: Feels Safe At This Time Assistive Devices: Glasses and Oxygen - at Night Review of Systems Review of Systems: All systems reviewed & are unremarkable except as noted in HPI & below Physical Exam Constitutional: WD/WN, vitals as above appears somewhat uncomfortable with abd pain Neck: trachea midline, no thyromegaly Respiratory: normal respiratory effort, lungs clear to auscultation Cardiovascular: RRR, no murmur, no edema Gastrointestinal (Abdomen): Inspection/Auscultation: abdomen normal to inspection and normal bowel sounds; abdomen not distended Percussion/Palpation: abdomen soft Moderately tender over the left lower abdomen, no rebound or guarding Skin: no rashes, warm and dry Psychiatric: A+Ox3, euthymic affect Results & Data ([facility]) Vital Signs (Past 12 Hours) Vital Signs Temp Pulse Pulse Pulse Resp BP BP 03/17/21 07:34 36.5 C 73 18 156/64 H 03/17/21 06:18 75 148/65 H 03/17/21 05:36 36.6 C 18 03/17/21 04:58 36.6 C 76 18 03/17/21 04:04 36.8 C 76 21 03/17/21 04:00 82 16 03/17/21 03:30 67 16 154/60 H 03/17/21 03:00 70 16 143/56 H 03/17/21 02:31 72 18 146/50 H 03/17/21 02:30 76 16 03/17/21 02:01 73 20 147/61 H 03/17/21 02:00 72 19 03/17/21 01:42 77 19 03/17/21 01:40 78 22 173/61 H 03/17/21 01:02 78 20 03/17/21 01:01 77 18 157/56 H 03/17/21 01:00 78 16 03/17/21 00:30 83 16 185/77 H 03/17/21 00:00 78 18 185/77 H 03/16/21 23:44 81 16 175/70 H 03/16/21 23:30 82 20 03/16/21 23:02 77 18 03/16/21 23:01 79 18 229/91 H 03/16/21 23:00 80 24 03/16/21 22:30 76 21 213/87 H 03/16/21 22:28 79 13 211/81 H 03/16/21 22:15 78 18 03/16/21 22:12 87 16 03/16/21 21:47 80 16 225/72 H BP Pulse Ox Pulse Ox 03/17/21 07:34 92 03/17/21 06:18 03/17/21 05:36 95 03/17/21 04:58 152/74 H 95 95 03/17/21 04:04 154/75 H 96 03/17/21 04:00 03/17/21 03:30 97 03/17/21 03:00 98 03/17/21 02:31 98 03/17/21 02:30 97 03/17/21 02:01 96 03/17/21 02:00 97 03/17/21 01:42 89 L 03/17/21 01:40 90 03/17/21 01:02 91 03/17/21 01:01 92 03/17/21 01:00 90 03/17/21 00:30 95 03/17/21 00:00 03/16/21 23:44 95 03/16/21 23:30 93 03/16/21 23:02 94 03/16/21 23:01 93 03/16/21 23:00 03/16/21 22:30 95 03/16/21 22:28 93 03/16/21 22:15 94 03/16/21 22:12 90 03/16/21 21:47 91 Laboratory Results 03/17/21 03/17/21 03/16/21 Range/Units 07:25 04:50 23:25 WBC (4.8-10.8) K/uL RBC (4.2-5.4) M/uL Hgb (12.0-16.0) g/dL Hct (37-47) % MCV (80-100) fL MCH (25-34) pg MCHC (32-36) g/dL RDW Std Deviation (36.4-46.3) fL RDW Coeff of Noemy (11.5-14.5) % Plt Count (130-400) K/uL MPV (7.4-10.4) fL Immature Gran % (Auto) % Neut % (Auto) % Lymph % (Auto) % Ray % (Auto) % Eos % (Auto) % Baso % (Auto) % Neut # (Auto) (1.4-6.5) K/uL Lymph # (Auto) (1.2-3.4) K/uL Ray # (Auto) (0.11-0.59) K/uL Eos # (Auto) (0-0.5) K/uL Baso # (Auto) (0-0.2) K/uL Immature Gran # (Auto) (0.00-0.02) K/uL Sodium (136-145) mmol/L Potassium (3.5-5.1) mmol/L Chloride (98-107) mmol/L Carbon Dioxide (21-32) mmol/L Anion Gap (3-11) BUN (7-18) mg/dl Creatinine (0.6-1.2) mg/dl Est Cr Clr Drug Dosing ml/min Est GFR ( Amer) ml/min Est GFR (Non-Af Amer) ml/min BUN/Creatinine Ratio (10-20) Glucose (70-99) mg/dl POC Glucose 191 H 190 H (70-99) mg/dl Lactate 1.2 (0.4-2.0) mmol/L Calcium (8.5-10.1) mg/dl Magnesium (1.8-2.4) mg/dl Total Bilirubin (0.2-1) mg/dl AST (15-37) U/L ALT (12-78) U/L Alkaline Phosphatase (45-117) U/L Troponin I (0-0.045) ng/ml Total Protein (6.4-8.2) gm/dl Albumin (3.4-5.0) gm/dl Globulin (2.5-4.0) gm/dl Albumin/Globulin Ratio (0.9-2) Lipase (73-393) U/L Urine Color Urine Appearance (Clear) Urine pH (4.5-7.5) Ur Specific [place] (1.000-1.030) Urine Protein (Negative) Urine Glucose (UA) (Negative) Urine Ketones (Negative) Urine Blood (Negative) Urine Nitrite (Negative) Urine Bilirubin (Negative) Urine Urobilinogen (Negative) Ur Leukocyte Esterase (Negative) Urine WBC (Auto) (0-5) /hpf Urine RBC (Auto) (0-4) /hpf U Hyaline Cast (Auto) (0-5) /lpf U Epithel Cells (Auto) (0-5) /lpf Urine Bacteria (Auto) (Negative) COVID-19 Eval Order SARS-CoV-2 (PCR) (Negative) 03/16/21 03/16/21 03/16/21 Range/Units 23:18 22:27 22:27 WBC (4.8-10.8) K/uL RBC (4.2-5.4) M/uL Hgb (12.0-16.0) g/dL Hct (37-47) % MCV (80-100) fL MCH (25-34) pg MCHC (32-36) g/dL RDW Std Deviation (36.4-46.3) fL RDW Coeff of Onemy (11.5-14.5) % Plt Count (130-400) K/uL MPV (7.4-10.4) fL Immature Gran % (Auto) % Neut % (Auto) % Lymph % (Auto) % Ray % (Auto) % Eos % (Auto) % Baso % (Auto) % Neut # (Auto) (1.4-6.5) K/uL Lymph # (Auto) (1.2-3.4) K/uL Ray # (Auto) (0.11-0.59) K/uL Eos # (Auto) (0-0.5) K/uL Baso # (Auto) (0-0.2) K/uL Immature Gran # (Auto) (0.00-0.02) K/uL Sodium (136-145) mmol/L Potassium (3.5-5.1) mmol/L Chloride (98-107) mmol/L Carbon Dioxide (21-32) mmol/L Anion Gap (3-11) BUN (7-18) mg/dl Creatinine (0.6-1.2) mg/dl Est Cr Clr Drug Dosing ml/min Est GFR ( Amer) ml/min Est GFR (Non-Af Amer) ml/min BUN/Creatinine Ratio (10-20) Glucose (70-99) mg/dl POC Glucose (70-99) mg/dl Lactate (0.4-2.0) mmol/L Calcium (8.5-10.1) mg/dl Magnesium (1.8-2.4) mg/dl Total Bilirubin (0.2-1) mg/dl AST (15-37) U/L ALT (12-78) U/L Alkaline Phosphatase (45-117) U/L Troponin I (0-0.045) ng/ml Total Protein (6.4-8.2) gm/dl Albumin (3.4-5.0) gm/dl Globulin (2.5-4.0) gm/dl Albumin/Globulin Ratio (0.9-2) Lipase (73-393) U/L Urine Color Yellow Urine Appearance Clear (Clear) Urine pH 6.0 (4.5-7.5) Ur Specific [place] 1.011 (1.000-1.030) Urine Protein 1+ H (Negative) Urine Glucose (UA) Negative (Negative) Urine Ketones Negative (Negative) Urine Blood Negative (Negative) Urine Nitrite Negative (Negative) Urine Bilirubin Negative (Negative) Urine Urobilinogen Negative (Negative) Ur Leukocyte Esterase Negative (Negative) Urine WBC (Auto) 1-5 (0-5) /hpf Urine RBC (Auto) 0-4 (0-4) /hpf U Hyaline Cast (Auto) 1-5 (0-5) /lpf U Epithel Cells (Auto) 10-20 H (0-5) /lpf Urine Bacteria (Auto) Negative (Negative) COVID-19 Eval Order Covid19 at [facility] SARS-CoV-2 (PCR) NEGATIVE (Negative) 03/16/21 03/16/21 Range/Units 22:19 22:19 WBC 16.63 H (4.8-10.8) K/uL RBC 3.49 L (4.2-5.4) M/uL Hgb 10.8 L (12.0-16.0) g/dL Hct 32.7 L (37-47) % MCV 93.7 (80-100) fL MCH 30.9 (25-34) pg MCHC 33.0 (32-36) g/dL RDW Std Deviation 49.8 H (36.4-46.3) fL RDW Coeff of Noemy 14.5 (11.5-14.5) % Plt Count 326 (130-400) K/uL MPV 9.6 (7.4-10.4) fL Immature Gran % (Auto) 0.2 % Neut % (Auto) 80.2 % Lymph % (Auto) 8.7 % Ray % (Auto) 10.3 % Eos % (Auto) 0.5 % Baso % (Auto) 0.1 % Neut # (Auto) 13.32 H (1.4-6.5) K/uL Lymph # (Auto) 1.45 (1.2-3.4) K/uL Ray # (Auto) 1.72 H (0.11-0.59) K/uL Eos # (Auto) 0.08 (0-0.5) K/uL Baso # (Auto) 0.02 (0-0.2) K/uL Immature Gran # (Auto) 0.04 H (0.00-0.02) K/uL Sodium 135 L (136-145) mmol/L Potassium 3.3 L (3.5-5.1) mmol/L Chloride 100 (98-107) mmol/L Carbon Dioxide 28 (21-32) mmol/L Anion Gap 7.0 (3-11) BUN 61 H (7-18) mg/dl Creatinine 2.32 H (0.6-1.2) mg/dl Est Cr Clr Drug Dosing 20.4 ml/min Est GFR ( Amer) 21.4 ml/min Est GFR (Non-Af Amer) 18.4 ml/min BUN/Creatinine Ratio 26.2 H (10-20) Glucose 171 H (70-99) mg/dl POC Glucose (70-99) mg/dl Lactate (0.4-2.0) mmol/L Calcium 9.9 (8.5-10.1) mg/dl Magnesium 2.4 (1.8-2.4) mg/dl Total Bilirubin 1.3 H (0.2-1) mg/dl AST 10 L (15-37) U/L ALT 15 (12-78) U/L Alkaline Phosphatase 68 (45-117) U/L Troponin I < 0.015 (0-0.045) ng/ml Total Protein 6.9 (6.4-8.2) gm/dl Albumin 3.8 (3.4-5.0) gm/dl Globulin 3.1 (2.5-4.0) gm/dl Albumin/Globulin Ratio 1.2 (0.9-2) Lipase 134 (73-393) U/L Urine Color Urine Appearance (Clear) Urine pH (4.5-7.5) Ur Specific [place] (1.000-1.030) Urine Protein (Negative) Urine Glucose (UA) (Negative) Urine Ketones (Negative) Urine Blood (Negative) Urine Nitrite (Negative) Urine Bilirubin (Negative) Urine Urobilinogen (Negative) Ur Leukocyte Esterase (Negative) Urine WBC (Auto) (0-5) /hpf Urine RBC (Auto) (0-4) /hpf U Hyaline Cast (Auto) (0-5) /lpf U Epithel Cells (Auto) (0-5) /lpf Urine Bacteria (Auto) (Negative) COVID-19 Eval Order SARS-CoV-2 (PCR) (Negative) (1) Abdominal pain Abdominal location: left lower quadrant Qualified Code(s): R10.32 - Left lower quadrant pain
--- NOTE | 2021-03-17 09:33 | CT Scan Report ---
CT SCAN OF THE ABDOMEN AND PELVIS WITHOUT CONTRAST CLINICAL HISTORY: Left abd/back pain, urinary symptoms COMPARISON STUDY: Multiple prior CT examination of the abdomen and pelvis, most recent was performed on October 27, 2020 TECHNIQUE: CT scan of the abdomen and pelvis was performed from the lung bases to the proximal femurs . Images are reviewed in the axial, sagittal, and coronal planes. IV contrast was not administered fo r this examination. A dose lowering technique was utilized adhering to the principles of ALARA. CT DOSE: 1301.39 mGy.cm FINDINGS: Lower chest: Mild atelectasis at the dependent portions of bilateral lower lobes. 12 mm nodule at the subpleural aspect of the posterior basal segment of the left lower lobe might represent worsening of focal atelectasis or real pulmonary nodule, incompletely evaluated on current exam. Liver: Liver is normal in size and contour. Few hypoattenuating lesions are again seen within left lo be, largest is measuring 1.4 cm in size and appear stable since prior. Gallbladder: Surgically absent. Spleen: Normal in size and attenuation. Pancreas: Is atrophic with calcifications within its parenchyma. Adrenal glands: Right adrenal gland is unremarkable. 1.9 cm left adrenal myelolipoma is again seen. Kidneys: No evidence of hydronephrosis or nephrolithiasis. Bilateral kidneys are atrophic. Previously seen soft tissue mass within superior aspect of the left renal pelvis is unchanged since prior and m easuring 3.8 x 4.0 cm on axial image (3/150). Bowel: Bowel loops are nondilated. Diverticulosis of descending and sigmoid colon is seen with interv al development of inflammatory changes surrounding sigmoid colon likely representing diverticulitis. No evidence of perforation or definite fluid collection. Peritoneum: There is no intraperitoneal free air or abdominal ascites. Vasculature: The abdominal aorta is normal in course and caliber. Adenopathy: Multiple small retroperitoneal lymph nodes are seen, measuring less than 1 cm in short ax is and likely nonpathological by CT size criteria. Pelvic viscera: Urinary bladder is partially decompressed which limits evaluation. Mild thickening of the urinary bladder wall and surrounding fat stranding might be seen in cystitis. Uterus is surgical ly absent. Skeletal structures: Osseous structures are diffusely demineralized. Mild degenerative changes of the spine. Mild diffuse soft tissue edema is seen. Soft tissue densities are again seen within the anterior abdo judy wall and might be related to subcutaneous injections. IMPRESSION: 1. Diverticulosis of descending and sigmoid colon. Diverticulitis involving sigmoid colon. 2. Possible cystitis. Please correlate these findings with results of urinalysis. 3. Stable left renal mass. 4. Possible nodule within left lower lung. Further evaluation with CT of the chest without IV contra st or nonemergency basis might be considered. ACT 112: Negative or not required by law. The above report was generated using voice recognition software. It may contain grammatical, syntax o r spelling errors. Electronically signed by: Mellisa Mills DO 03/17/2021 9:31 AM
--- NOTE | 2021-03-17 10:02 | XRay Report ---
SINGLE VIEW CHEST CLINICAL HISTORY: Dyspnea. Chills. FINDINGS: An AP, portable, upright chest radiograph is compared to study dated 10/26/2020. The examinat ion is degraded by portable technique and apical lordotic positioning. The heart is enlarged noting a therosclerotic calcification of the thoracic aorta. The pulmonary vasculature is noncongested. Atelec tasis is seen at the lung bases. No airspace consolidation or large pleural effusion is identified. N o pneumothorax is seen. The skeletal structures are osteopenic. The bony thorax is grossly intact. IMPRESSION: Cardiomegaly with no acute cardiopulmonary abnormality. ACT 112: Negative or not required by law. Electronically signed by: Marco Morocho M.D. 03/17/2021 10:01 AM
--- NOTE | 2021-03-17 12:13 | Hospitalist Progress Note ---
Date of Service March 17, 2021 Assessment & Plan (1) Hypertensive crisis: Multifactorial Abdominal pain from acute diverticulitis Anxiety contributory missed home BP meds BP significantly improved after initial intervention at the ER Continue home BP meds, may need dose titration Hold home diuretics for now Monitor BP COVID-19 positive test (U07.1, COVID-19) with Acute Respiratory Distress Syndrome (ARDS) (J80, ARDS) (If respiratory failure or sepsis present, add as separate assessment) Acute diverticulitis Analgesia, anxiolytic as needed Clear liquids for now cont. [facility] consulted for diverticulitis -recommend colonoscopy in 8 weeks, patient declined Continue antibiotics for 10-14 days Advance diet as tolerated Hypokalemia -Likely due to poor oral intake, diuretics -Replete and monitor, hold diuretics for now Chronic diastolic heart failure (EF 55 to 60%, TTE 2019), patient on the dry side hx LBBB Left renal mass, some enlargement on initial CT read, patient [facility]-up for left renal mass DM2 insulin requiring (well-controlled as of recent hemoglobin A1c of 6.25 August 2020) Basal insulin adjusted for clear liquid diet for now, ISS BG goal [id number], carb count coverage CRI, creatinine at baseline Chronic anemia, hemoglobin at baseline DVT prophylaxis with Heparin subcu exactly Full code Admission and Anticipated Discharge Date Admission Date: March 17, 2021 Subjective Patient seen in follow-up of diverticulitis Currently laying in bed, somnolent, says she feels better with pain medications She still has left lower quadrant pain, could not tolerate much of p.o. intake On Zosyn Reports she had a bowel movement this morning, and chills and fevers at home Review of Systems Review of Systems: All systems reviewed & are unremarkable except as noted in HPI & below Respiratory: no cough and no dyspnea Cardiovascular: no chest pain and no palpitations Gastrointestinal: + abdominal pain (somewhat improved) Physical Exam Physical Exam: GENERAL: WD/WN obese female, in NAD HEENT: NC/AT, EOMI, PERRL, Pale palpebral conjunctivae NECK : Supple, short neck, no tenderness CHEST : CTAB HEART : RRR, no obvious murmurs ABDOMEN: + bowel sounds, Some distention, left-sided abdominal tenderness EXTREMITIES : Minimal LE swelling , no LE tenderness, moves extremities NEUROLOGIC : Somnolent but easily arousable, answers questions appropriately, no facial asymmetry, speech fluent, moves extremities SKIN: Pallor, warm, dry Results & Data Results & Data ([facility]) Vital Signs (Past 12 Hours) Vital Signs Temp Pulse Pulse Pulse Resp BP BP 03/17/21 11:11 36.8 C 75 18 147/62 H 03/17/21 08:30 75 03/17/21 07:34 36.5 C 73 18 156/64 H 03/17/21 06:18 75 148/65 H 03/17/21 05:36 36.6 C 18 03/17/21 04:58 36.6 C 76 18 03/17/21 04:04 36.8 C 76 21 03/17/21 04:00 82 16 03/17/21 03:30 67 16 154/60 H 03/17/21 03:00 70 16 143/56 H 03/17/21 02:31 72 18 146/50 H 03/17/21 02:30 76 16 03/17/21 02:01 73 20 147/61 H 03/17/21 02:00 72 19 03/17/21 01:42 77 19 03/17/21 01:40 78 22 173/61 H 03/17/21 01:02 78 20 03/17/21 01:01 77 18 157/56 H 03/17/21 01:00 78 16 03/17/21 00:30 83 16 185/77 H BP Pulse Ox Pulse Ox 03/17/21 11:11 90 03/17/21 08:30 03/17/21 07:34 92 03/17/21 06:18 03/17/21 05:36 95 03/17/21 04:58 152/74 H 95 95 03/17/21 04:04 154/75 H 96 03/17/21 04:00 03/17/21 03:30 97 03/17/21 03:00 98 03/17/21 02:31 98 03/17/21 02:30 97 03/17/21 02:01 96 03/17/21 02:00 97 03/17/21 01:42 89 L 03/17/21 01:40 90 03/17/21 01:02 91 03/17/21 01:01 92 03/17/21 01:00 90 03/17/21 00:30 95 Laboratory Results 03/17/21 03/17/21 03/17/21 Range/Units 11:07 07:25 04:50 WBC (4.8-10.8) K/uL RBC (4.2-5.4) M/uL Hgb (12.0-16.0) g/dL Hct (37-47) % MCV (80-100) fL MCH (25-34) pg MCHC (32-36) g/dL RDW Std Deviation (36.4-46.3) fL RDW Coeff of Noemy (11.5-14.5) % Plt Count (130-400) K/uL MPV (7.4-10.4) fL Immature Gran % (Auto) % Neut % (Auto) % Lymph % (Auto) % Gaines % (Auto) % Eos % (Auto) % Baso % (Auto) % Neut # (Auto) (1.4-6.5) K/uL Lymph # (Auto) (1.2-3.4) K/uL Gaines # (Auto) (0.11-0.59) K/uL Eos # (Auto) (0-0.5) K/uL Baso # (Auto) (0-0.2) K/uL Immature Gran # (Auto) (0.00-0.02) K/uL Sodium (136-145) mmol/L Potassium (3.5-5.1) mmol/L Chloride (98-107) mmol/L Carbon Dioxide (21-32) mmol/L Anion Gap (3-11) BUN (7-18) mg/dl Creatinine (0.6-1.2) mg/dl Est Cr Clr Drug Dosing ml/min Est GFR ( Amer) ml/min Est GFR (Non-Af Amer) ml/min BUN/Creatinine Ratio (10-20) Glucose (70-99) mg/dl POC Glucose 228 H 191 H 190 H (70-99) mg/dl Lactate (0.4-2.0) mmol/L Calcium (8.5-10.1) mg/dl Magnesium (1.8-2.4) mg/dl Total Bilirubin (0.2-1) mg/dl AST (15-37) U/L ALT (12-78) U/L Alkaline Phosphatase (45-117) U/L Troponin I (0-0.045) ng/ml Total Protein (6.4-8.2) gm/dl Albumin (3.4-5.0) gm/dl Globulin (2.5-4.0) gm/dl Albumin/Globulin Ratio (0.9-2) Lipase (73-393) U/L Urine Color Urine Appearance (Clear) Urine pH (4.5-7.5) Ur Specific [place] (1.000-1.030) Urine Protein (Negative) Urine Glucose (UA) (Negative) Urine Ketones (Negative) Urine Blood (Negative) Urine Nitrite (Negative) Urine Bilirubin (Negative) Urine Urobilinogen (Negative) Ur Leukocyte Esterase (Negative) Urine WBC (Auto) (0-5) /hpf Urine RBC (Auto) (0-4) /hpf U Hyaline Cast (Auto) (0-5) /lpf U Epithel Cells (Auto) (0-5) /lpf Urine Bacteria (Auto) (Negative) COVID-19 Eval Order SARS-CoV-2 (PCR) (Negative) 03/16/21 03/16/21 03/16/21 Range/Units 23:25 23:18 22:27 WBC (4.8-10.8) K/uL RBC (4.2-5.4) M/uL Hgb (12.0-16.0) g/dL Hct (37-47) % MCV (80-100) fL MCH (25-34) pg MCHC (32-36) g/dL RDW Std Deviation (36.4-46.3) fL RDW Coeff of Noemy (11.5-14.5) % Plt Count (130-400) K/uL MPV (7.4-10.4) fL Immature Gran % (Auto) % Neut % (Auto) % Lymph % (Auto) % Gaines % (Auto) % Eos % (Auto) % Baso % (Auto) % Neut # (Auto) (1.4-6.5) K/uL Lymph # (Auto) (1.2-3.4) K/uL Gaines # (Auto) (0.11-0.59) K/uL Eos # (Auto) (0-0.5) K/uL Baso # (Auto) (0-0.2) K/uL Immature Gran # (Auto) (0.00-0.02) K/uL Sodium (136-145) mmol/L Potassium (3.5-5.1) mmol/L Chloride (98-107) mmol/L Carbon Dioxide (21-32) mmol/L Anion Gap (3-11) BUN (7-18) mg/dl Creatinine (0.6-1.2) mg/dl Est Cr Clr Drug Dosing ml/min Est GFR ( Amer) ml/min Est GFR (Non-Af Amer) ml/min BUN/Creatinine Ratio (10-20) Glucose (70-99) mg/dl POC Glucose (70-99) mg/dl Lactate 1.2 (0.4-2.0) mmol/L Calcium (8.5-10.1) mg/dl Magnesium (1.8-2.4) mg/dl Total Bilirubin (0.2-1) mg/dl AST (15-37) U/L ALT (12-78) U/L Alkaline Phosphatase (45-117) U/L Troponin I (0-0.045) ng/ml Total Protein (6.4-8.2) gm/dl Albumin (3.4-5.0) gm/dl Globulin (2.5-4.0) gm/dl Albumin/Globulin Ratio (0.9-2) Lipase (73-393) U/L Urine Color Yellow Urine Appearance Clear (Clear) Urine pH 6.0 (4.5-7.5) Ur Specific [place] 1.011 (1.000-1.030) Urine Protein 1+ H (Negative) Urine Glucose (UA) Negative (Negative) Urine Ketones Negative (Negative) Urine Blood Negative (Negative) Urine Nitrite Negative (Negative) Urine Bilirubin Negative (Negative) Urine Urobilinogen Negative (Negative) Ur Leukocyte Esterase Negative (Negative) Urine WBC (Auto) 1-5 (0-5) /hpf Urine RBC (Auto) 0-4 (0-4) /hpf U Hyaline Cast (Auto) 1-5 (0-5) /lpf U Epithel Cells (Auto) 10-20 H (0-5) /lpf Urine Bacteria (Auto) Negative (Negative) COVID-19 Eval Order SARS-CoV-2 (PCR) NEGATIVE (Negative) 05/03/16/21 03/16/21 Range/Units 22:27 22:19 22:19 WBC 16.63 H (4.8-10.8) K/uL RBC 3.49 L (4.2-5.4) M/uL Hgb 10.8 L (12.0-16.0) g/dL Hct 32.7 L (37-47) % MCV 93.7 (80-100) fL MCH 30.9 (25-34) pg MCHC 33.0 (32-36) g/dL RDW Std Deviation 49.8 H (36.4-46.3) fL RDW Coeff of Noemy 14.5 (11.5-14.5) % Plt Count 326 (130-400) K/uL MPV 9.6 (7.4-10.4) fL Immature Gran % (Auto) 0.2 % Neut % (Auto) 80.2 % Lymph % (Auto) 8.7 % Gaines % (Auto) 10.3 % Eos % (Auto) 0.5 % Baso % (Auto) 0.1 % Neut # (Auto) 13.32 H (1.4-6.5) K/uL Lymph # (Auto) 1.45 (1.2-3.4) K/uL Gaines # (Auto) 1.72 H (0.11-0.59) K/uL Eos # (Auto) 0.08 (0-0.5) K/uL Baso # (Auto) 0.02 (0-0.2) K/uL Immature Gran # (Auto) 0.04 H (0.00-0.02) K/uL Sodium 135 L (136-145) mmol/L Potassium 3.3 L (3.5-5.1) mmol/L Chloride 100 (98-107) mmol/L Carbon Dioxide 28 (21-32) mmol/L Anion Gap 7.0 (3-11) BUN 61 H (7-18) mg/dl Creatinine 2.32 H (0.6-1.2) mg/dl Est Cr Clr Drug Dosing 20.4 ml/min Est GFR ( Amer) 21.4 ml/min Est GFR (Non-Af Amer) 18.4 ml/min BUN/Creatinine Ratio 26.2 H (10-20) Glucose 171 H (70-99) mg/dl POC Glucose (70-99) mg/dl Lactate (0.4-2.0) mmol/L Calcium 9.9 (8.5-10.1) mg/dl Magnesium 2.4 (1.8-2.4) mg/dl Total Bilirubin 1.3 H (0.2-1) mg/dl AST 10 L (15-37) U/L ALT 15 (12-78) U/L Alkaline Phosphatase 68 (45-117) U/L Troponin I < 0.015 (0-0.045) ng/ml Total Protein 6.9 (6.4-8.2) gm/dl Albumin 3.8 (3.4-5.0) gm/dl Globulin 3.1 (2.5-4.0) gm/dl Albumin/Globulin Ratio 1.2 (0.9-2) Lipase 134 (73-393) U/L Urine Color Urine Appearance (Clear) Urine pH (4.5-7.5) Ur Specific [place] (1.000-1.030) Urine Protein (Negative) Urine Glucose (UA) (Negative) Urine Ketones (Negative) Urine Blood (Negative) Urine Nitrite (Negative) Urine Bilirubin (Negative) Urine Urobilinogen (Negative) Ur Leukocyte Esterase (Negative) Urine WBC (Auto) (0-5) /hpf Urine RBC (Auto) (0-4) /hpf U Hyaline Cast (Auto) (0-5) /lpf U Epithel Cells (Auto) (0-5) /lpf Urine Bacteria (Auto) (Negative) COVID-19 Eval Order Covid19 at [facility] SARS-CoV-2 (PCR) (Negative) Medications Administered Current Inpatient Medications Acetaminophen (Acetaminophen 325 Mg Tab) 650 mg PO Q4H PRN PRN Reason: Pain or Fever Stop: 04/16/21 04:57 Allopurinol (Allopurinol 100 Mg Tab) 200 mg PO DAILY [facility] Stop: 04/16/21 08:59 Last Admin: 03/17/21 08:14 Dose: 200 mg Documented by: Aspirin (Aspirin 81 Mg Ectab) 81 mg PO QAM [facility] Stop: 04/16/21 08:59 Last Admin: 03/17/21 08:14 Dose: 81 mg Documented by: Carvedilol (Carvedilol 6.25 Mg Tab) 18.75 mg PO BID [facility] Stop: 04/16/21 08:59 Last Admin: 03/17/21 08:14 Dose: 18.75 mg Documented by: Dextrose (Dextrose 50% 50 Ml Syringe) 25 - 50 ml IV UD PRN; Protocol PRN Reason: Hypoglycemia Protocol Stop: 04/16/21 04:57 Diclofenac Sodium (Diclofenac Sod 1% Gel 100 Gm Tube) 4 gm EXT QID PRN PRN Reason: Pain Stop: 04/16/21 04:57 Famotidine (Famotidine 20 Mg Tab) 20 mg PO QPM [facility] Stop: 04/16/21 20:59 Glucagon (Glucagon For Inj 1 Mg Vial) 1 mg SQ UD PRN; Protocol PRN Reason: Hypoglycemia Protocol Stop: 04/16/21 04:57 Glucose (Glucose 10 Tabs/Tube) 4 - 8 tabs PO UD PRN; Protocol PRN Reason: Hypoglycemia Protocol Stop: 04/16/21 04:57 Glucose (Glucose 40% Gel 15 Gm Tube) 15 - 30 gm PO UD PRN; Protocol PRN Reason: Hypoglycemia Protocol Stop: 04/16/21 04:57 Heparin Sodium (Porcine) (Heparin Sod 5,000 Unit/0.5 Ml Vial) 5,000 units SQ Q8 [facility] Stop: 04/16/21 05:59 Last Admin: 03/17/21 05:54 Dose: 5,000 units Documented by: Hydralazine HCl (Hydralazine Hcl 25 Mg Tab) 75 mg PO TID [facility] Stop: 04/16/21 08:59 Last Admin: 03/17/21 08:13 Dose: 75 mg Documented by: Hydromorphone HCl (Hydromorphone Inj 0.5 Mg/0.5 Ml Syr) 0.5 mg IV Q3H PRN PRN Reason: Pain Stop: 03/31/21 00:34 Last Admin: 03/17/21 10:25 Dose: 0.5 mg Documented by: Promethazine HCl 12.5 mg/ (Sodium Chloride) 50.5 mls @ 202 mls/hr IV Q6H PRN PRN Reason: Nausea And Vomiting Stop: 04/16/21 00:34 Lorazepam (Ativan) 0.25 mg in 0.5 mls @ 0.5 mls/min IV Q4H PRN PRN Reason: Anxiety Stop: 04/16/21 04:57 Potassium Chloride 40 meq/ (Sodium Chloride) 1,020 mls @ 50 mls/hr IV .[id number] ONE Stop: 03/18/21 01:21 Last Admin: 03/17/21 05:54 Dose: 50 mls/hr Documented by: Piperacillin Sod/Tazobactam (Sod 3.375 gm/ Dextrose) 115 mls @ 28.75 mls/hr IV Q12H [facility]; Protocol Stop: 03/27/21 07:59 Last Admin: 03/17/21 08:15 Dose: 28.8 mls/hr Documented by: Insulin Aspart (Insulin Aspart 100 Units/Ml 3 Ml Pen) 0 units SC ACHS [facility] Stop: 04/16/21 04:57 Last Admin: 03/17/21 08:35 Dose: 5 units Documented by: Insulin Glargine (Insulin Glargine Solostar 100 Units/Ml 3 Ml Pen) 10 units SC DAILY [facility] Stop: 04/16/21 05:49 Last Admin: 03/17/21 06:27 Dose: 10 units Documented by: Isosorbide Dinitrate (Isosorbide Dinitrate 20 Mg Tab) 20 mg PO TID@0700,1200,1700 [facility] Stop: 04/16/21 06:59 Last Admin: 03/17/21 08:14 Dose: 20 mg Documented by: Lidocaine (Lidocaine 5% 1 Patch) 1 patch TD QAM [facility] Stop: 04/16/21 08:59 Last Admin: 03/17/21 08:15 Dose: 1 patch Documented by: Miscellaneous (Carbohydrates For Hypoglycemia ) 15 - 30 gm PO UD PRN PRN Reason: Hypoglycemia Protocol Stop: 04/16/21 04:57 Miscellaneous (Remove Lidoderm Patch) 1 ea N/A PM [facility] Stop: 04/16/21 20:59 Miscellaneous Information (Piperacill/Tazobac Consult Active) 1 ea N/A UD PRN PRN Reason: Consult Stop: 04/15/21 22:46 Polyethylene Glycol (Polyethylene (Miralax) 17 Gm Pack) 17 gm PO DAILY PRN PRN Reason: Constipation Stop: 04/16/21 04:57 Rosuvastatin Calcium (Rosuvastatin Calcium 10 Mg Tab) 10 mg PO QPM [facility] Stop: 04/16/21 20:59 Senna/Docusate Sodium (Docusate Sodium/Senna 50/8.6mg Tab) 2 tab PO BID [facility] Stop: 04/16/21 08:59 Last Admin: 03/17/21 08:13 Dose: 2 tab Documented by: Tramadol HCl (Tramadol Hcl 50 Mg Tablet) 25 - 50 mg PO Q4H PRN PRN Reason: Pain Stop: 04/16/21 04:57 Last Admin: 03/17/21 08:19 Dose: 50 mg Documented by:
--- NOTE | 2021-03-17 13:40 | Electrocardiogram Report ---
Test Reason : Blood Pressure : / mmHG Vent. Rate : 078 BPM Atrial Rate : 078 BPM P-R Int : 176 ms QRS Dur : 098 ms QT Int : 394 ms P-R-T Axes : 057 009 044 degrees QTc Int : 449 ms Normal sinus rhythm Normal ECG When compared with ECG of 26-OCT-2020 20:06, No significant change was found Confirmed by Franco Villagran ([id number]) on 03/17/2021 1:40:22 PM Referred By: REFERRED SELF Confirmed By:Franco Villagran
[2021-03-17] MEDS: FAMOTIDINE 20 MG TAB PO SCH (20:03)
[2021-03-17] MEDS: ROSUVASTATIN CALCIUM 10 MG TAB PO SCH (20:06)
[2021-03-18] MEDS: HYDROmorphone INJ 0.5 MG/0.5 ML SYR IV PRN ×2 (04:50→13:29)
[2021-03-18] MEDS: HEPARIN SOD 5,000 UNIT/0.5 ML VIAL SQ SCH ×3 (05:43→20:20)
[2021-03-18 06:17] LABS: Hematocrit (blood only) 29.5 % (37-47); Hemoglobin 9.5 g/dL (12.0-16.0); Mean Corpuscular Hemoglobin 30.7 pg (25-34); Mean Corpuscular Hgb Conc 32.2 g/dL (32-36); Mean Corpuscular Volume 95.5 fL (80-100); Mean Platelet Volume 9.4 fL (7.4-10.4); Platelet Count 317 K/uL (130-400); RDW Coefficient of Variation 14.5 % (11.5-14.5); RDW Standard Deviation 50.4 fL (36.4-46.3); Red Blood Count 3.09 M/uL (4.2-5.4)
[2021-03-18] MEDS: ISOSORBIDE DINITRATE 20 MG TAB PO SCH ×3 (06:31→17:35)
[2021-03-18 06:55] LABS: BUN Creatinine Ratio 22.3 (10-20); Creatinine Clr Calc Pharmacy 21.6 ml/min; Est GFR (African American) 21.9 ml/min; Est GFR (Non-African American) 18.9 ml/min; Magnesium 2.4 mg/dl (1.8-2.4)
--- NOTE | 2021-03-18 07:48 | Hospitalist Progress Note ---
Date of Service March 18, 2021 Assessment & Plan (1) Hypertensive crisis: Multifactorial Abdominal pain from acute diverticulitis Anxiety contributory missed home BP meds BP significantly improved after initial intervention at the ER Continue home BP meds, may need dose titration Hold home diuretics for now Monitor BP Current blood pressure in the 150s/ 60s Acute diverticulitis Analgesia, anxiolytic as needed Clear liquids for now cont. [facility] consulted for diverticulitis -recommend colonoscopy in 8 weeks, patient declined Continue antibiotics for 10-14 days Advance diet as tolerated Hypokalemia -Likely due to poor oral intake, diuretics -Replete and monitor, hold diuretics for now Chronic diastolic heart failure (EF 55 to 60%, TTE 2019), patient on the dry side hx LBBB Left renal mass, some enlargement on initial CT read, patient [facility]-up for left renal mass DM2 insulin requiring (well-controlled as of recent hemoglobin A1c of 6.25 August 2020) Basal insulin adjusted for clear liquid diet for now, ISS BG goal [id number], carb count coverage CRI, creatinine at baseline Chronic anemia, hemoglobin at baseline DVT prophylaxis with Heparin subcu exactly Full code Admission and Anticipated Discharge Date Admission Date: March 17, 2021 Subjective Patient seen in follow-up of diverticulitis, elevated BP Currently laying in bed, says she feels better with pain medications but still has significant discomfort especially in her left lower quadrant area Tolerating clear with diet, has had about 4 small BMs On Zosyn + chills and fevers at home Review of Systems Review of Systems: All systems reviewed & are unremarkable except as noted in HPI & below Constitutional: no fever and no chills Respiratory: no cough and no dyspnea Cardiovascular: no chest pain and no palpitations Gastrointestinal: + abdominal pain (somewhat improved) Physical Exam Physical Exam: GENERAL: WD/WN obese female, in NAD HEENT: NC/AT, EOMI, PERRL, Pale palpebral conjunctivae NECK : Supple, short neck, no tenderness CHEST : CTAB HEART : RRR, no obvious murmurs ABDOMEN: + bowel sounds, Some distention, left-sided abdominal tenderness EXTREMITIES : Minimal LE swelling , no LE tenderness, moves extremities NEUROLOGIC : Alert and oriented x3, answers questions appropriately, no facial asymmetry, speech fluent, moves extremities SKIN: Pallor, warm, dry Results & Data Results & Data ([facility]) Vital Signs (Past 12 Hours) Vital Signs Temp Pulse Pulse Resp BP BP Pulse Ox 03/18/21 07:40 36.7 C 74 18 150/66 H 96 03/18/21 07:15 68 03/18/21 05:48 71 158/64 H 03/18/21 04:06 36.7 C 80 16 156/73 H 91 03/17/21 23:46 36.9 C 89 18 137/68 92 03/17/21 22:20 85 Laboratory Results 03/18/21 03/18/21 03/18/21 Range/Units 07:35 05:55 05:55 WBC 13.20 H (4.8-10.8) K/uL RBC 3.09 L (4.2-5.4) M/uL Hgb 9.5 L (12.0-16.0) g/dL Hct 29.5 L (37-47) % MCV 95.5 (80-100) fL MCH 30.7 (25-34) pg MCHC 32.2 (32-36) g/dL RDW Std Deviation 50.4 H (36.4-46.3) fL RDW Coeff of Noemy 14.5 (11.5-14.5) % Plt Count 317 (130-400) K/uL MPV 9.4 (7.4-10.4) fL Sodium 139 (136-145) mmol/L Potassium 4.0 D (3.5-5.1) mmol/L Chloride 107 (98-107) mmol/L Carbon Dioxide 28 (21-32) mmol/L Anion Gap 4.0 (3-11) BUN 51 H (7-18) mg/dl Creatinine 2.27 H (0.6-1.2) mg/dl Est Cr Clr Drug Dosing 21.6 ml/min Est GFR ( Amer) 21.9 ml/min Est GFR (Non-Af Amer) 18.9 ml/min BUN/Creatinine Ratio 22.3 H (10-20) Glucose 159 H (70-99) mg/dl POC Glucose 164 H (70-99) mg/dl Calcium 9.0 (8.5-10.1) mg/dl Phosphorus 3.0 (2.5-4.9) mg/dl Magnesium 2.4 (1.8-2.4) mg/dl 05/26/21 05/26/21 05/26/21 Range/Units 20:09 16:26 11:07 WBC (4.8-10.8) K/uL RBC (4.2-5.4) M/uL Hgb (12.0-16.0) g/dL Hct (37-47) % MCV (80-100) fL MCH (25-34) pg MCHC (32-36) g/dL RDW Std Deviation (36.4-46.3) fL RDW Coeff of Noemy (11.5-14.5) % Plt Count (130-400) K/uL MPV (7.4-10.4) fL Sodium (136-145) mmol/L Potassium (3.5-5.1) mmol/L Chloride (98-107) mmol/L Carbon Dioxide (21-32) mmol/L Anion Gap (3-11) BUN (7-18) mg/dl Creatinine (0.6-1.2) mg/dl Est Cr Clr Drug Dosing ml/min Est GFR ( Amer) ml/min Est GFR (Non-Af Amer) ml/min BUN/Creatinine Ratio (10-20) Glucose (70-99) mg/dl POC Glucose 172 H 162 H 228 H (70-99) mg/dl Calcium (8.5-10.1) mg/dl Phosphorus (2.5-4.9) mg/dl Magnesium (1.8-2.4) mg/dl Medications Administered Current Inpatient Medications Acetaminophen (Acetaminophen 325 Mg Tab) 650 mg PO Q4H PRN PRN Reason: Pain or Fever Stop: 04/16/21 04:57 Allopurinol (Allopurinol 100 Mg Tab) 200 mg PO DAILY [facility] Stop: 04/16/21 08:59 Last Admin: 03/17/21 08:14 Dose: 200 mg Documented by: Aspirin (Aspirin 81 Mg Ectab) 81 mg PO QAM [facility] Stop: 04/16/21 08:59 Last Admin: 03/17/21 08:14 Dose: 81 mg Documented by: Carvedilol (Carvedilol 6.25 Mg Tab) 18.75 mg PO BID [facility] Stop: 04/16/21 08:59 Last Admin: 03/17/21 20:03 Dose: 18.75 mg Documented by: Dextrose (Dextrose 50% 50 Ml Syringe) 25 - 50 ml IV UD PRN; Protocol PRN Reason: Hypoglycemia Protocol Stop: 04/16/21 04:57 Diclofenac Sodium (Diclofenac Sod 1% Gel 100 Gm Tube) 4 gm EXT QID PRN PRN Reason: Pain Stop: 04/16/21 04:57 Famotidine (Famotidine 20 Mg Tab) 20 mg PO QPM [facility] Stop: 04/16/21 20:59 Last Admin: 03/17/21 20:03 Dose: 20 mg Documented by: Glucagon (Glucagon For Inj 1 Mg Vial) 1 mg SQ UD PRN; Protocol PRN Reason: Hypoglycemia Protocol Stop: 04/16/21 04:57 Glucose (Glucose 10 Tabs/Tube) 4 - 8 tabs PO UD PRN; Protocol PRN Reason: Hypoglycemia Protocol Stop: 04/16/21 04:57 Glucose (Glucose 40% Gel 15 Gm Tube) 15 - 30 gm PO UD PRN; Protocol PRN Reason: Hypoglycemia Protocol Stop: 04/16/21 04:57 Heparin Sodium (Porcine) (Heparin Sod 5,000 Unit/0.5 Ml Vial) 5,000 units SQ Q8 [facility] Stop: 04/16/21 05:59 Last Admin: 03/18/21 05:43 Dose: 5,000 units Documented by: Hydralazine HCl (Hydralazine Hcl 25 Mg Tab) 75 mg PO TID [facility] Stop: 04/16/21 08:59 Last Admin: 03/17/21 20:03 Dose: 75 mg Documented by: Hydromorphone HCl (Hydromorphone Inj 0.5 Mg/0.5 Ml Syr) 0.5 mg IV Q3H PRN PRN Reason: Pain Stop: 03/31/21 00:34 Last Admin: 03/18/21 04:50 Dose: 0.5 mg Documented by: Promethazine HCl 12.5 mg/ (Sodium Chloride) 50.5 mls @ 202 mls/hr IV Q6H PRN PRN Reason: Nausea And Vomiting Stop: 04/16/21 00:34 Lorazepam (Ativan) 0.25 mg in 0.5 mls @ 0.5 mls/min IV Q4H PRN PRN Reason: Anxiety Stop: 04/16/21 04:57 Piperacillin Sod/Tazobactam (Sod 3.375 gm/ Dextrose) 115 mls @ 28.75 mls/hr IV Q12H [facility]; Protocol Stop: 03/27/21 07:59 Last Infusion: 03/17/21 23:41 Dose: Infused Documented by: Insulin Aspart (Insulin Aspart 100 Units/Ml 3 Ml Pen) 0 units SC ACHS [facility] Stop: 04/16/21 04:57 Last Admin: 03/17/21 20:14 Dose: 2 units Documented by: Insulin Glargine (Insulin Glargine Solostar 100 Units/Ml 3 Ml Pen) 10 units SC DAILY [facility] Stop: 04/16/21 05:49 Last Admin: 03/17/21 06:27 Dose: 10 units Documented by: Isosorbide Dinitrate (Isosorbide Dinitrate 20 Mg Tab) 20 mg PO TID@0700,1200,1700 [facility] Stop: 04/16/21 06:59 Last Admin: 03/18/21 06:31 Dose: 20 mg Documented by: Lidocaine (Lidocaine 5% 1 Patch) 1 patch TD QAM [facility] Stop: 04/16/21 08:59 Last Admin: 03/17/21 08:15 Dose: 1 patch Documented by: Miscellaneous (Carbohydrates For Hypoglycemia ) 15 - 30 gm PO UD PRN PRN Reason: Hypoglycemia Protocol Stop: 04/16/21 04:57 Miscellaneous (Remove Lidoderm Patch) 1 ea N/A PM [facility] Stop: 04/16/21 20:59 Last Admin: 03/17/21 20:06 Dose: 1 ea Documented by: Miscellaneous Information (Piperacill/Tazobac Consult Active) 1 ea N/A UD PRN PRN Reason: Consult Stop: 04/15/21 22:46 Polyethylene Glycol (Polyethylene (Miralax) 17 Gm Pack) 17 gm PO DAILY PRN PRN Reason: Constipation Stop: 04/16/21 04:57 Rosuvastatin Calcium (Rosuvastatin Calcium 10 Mg Tab) 10 mg PO QPM [facility] Stop: 04/16/21 20:59 Last Admin: 03/17/21 20:06 Dose: 10 mg Documented by: Senna/Docusate Sodium (Docusate Sodium/Senna 50/8.6mg Tab) 2 tab PO BID [facility] Stop: 04/16/21 08:59 Last Admin: 03/17/21 20:03 Dose: 2 tab Documented by: Tramadol HCl (Tramadol Hcl 50 Mg Tablet) 25 - 50 mg PO Q4H PRN PRN Reason: Pain Stop: 04/16/21 04:57 Last Admin: 03/17/21 08:19 Dose: 50 mg Documented by:
[2021-03-18] MEDS: INSULIN ASPART 100 UNITS/ML 3 ML PEN SC SCH ×4 (08:08→20:18)
[2021-03-18] MEDS: allopurinoL 100 MG TAB PO SCH (08:10)
[2021-03-18] MEDS: carvediloL 6.25 MG TAB PO SCH ×2 (08:11→20:16)
[2021-03-18] MEDS: hydrALAZINE HCL 25 MG TAB PO SCH ×3 (08:11→20:17)
[2021-03-18] MEDS: INSULIN GLARGINE SOLOSTAR 100 UNITS/ML 3 ML PEN SC SCH (08:12)
[2021-03-18] MEDS: ASPIRIN 81 MG ECTAB PO SCH (08:12)
[2021-03-18] MEDS: DOCUSATE SODIUM/SENNA 50/8.6MG TAB PO SCH ×2 (08:13→20:17)
[2021-03-18] MEDS: LIDOCAINE 5% 1 PATCH TD SCH ×2 (08:14→12:14)
[2021-03-18] MEDS: traMADol HCL 50 MG TABLET PO PRN ×3 (08:28→17:55)
[2021-03-18] MEDS: PIPERACILLIN/TAZOBACTAM 3.375 GM in DEXTROSE 5% 100 ML IV SCH ×2 (08:29→20:16)
[2021-03-18] MEDS: FAMOTIDINE 20 MG TAB PO SCH (20:17)
[2021-03-18] MEDS: ROSUVASTATIN CALCIUM 10 MG TAB PO SCH (20:19)
[2021-03-19] MEDS: HEPARIN SOD 5,000 UNIT/0.5 ML VIAL SQ SCH ×3 (06:17→21:03)
[2021-03-19] MEDS: ISOSORBIDE DINITRATE 20 MG TAB PO SCH ×3 (06:17→17:48)
[2021-03-19 07:36] LABS: Hematocrit (blood only) 28.5 % (37-47); Hemoglobin 9.3 g/dL (12.0-16.0); Mean Corpuscular Hemoglobin 30.7 pg (25-34); Mean Corpuscular Hgb Conc 32.6 g/dL (32-36); Mean Corpuscular Volume 94.1 fL (80-100); Mean Platelet Volume 9.3 fL (7.4-10.4); Platelet Count 289 K/uL (130-400); RDW Coefficient of Variation 14.4 % (11.5-14.5); RDW Standard Deviation 49.1 fL (36.4-46.3); Red Blood Count 3.03 M/uL (4.2-5.4); White Blood Count 14.09 K/uL (4.8-10.8)
[2021-03-19 08:22] LABS: BUN Creatinine Ratio 19.6 (10-20); Calcium 9.6 mg/dl (8.5-10.1); Creatinine Clr Calc Pharmacy 21.8 ml/min; Est GFR (African American) 21.9 ml/min; Est GFR (Non-African American) 18.9 ml/min; Magnesium 2.4 mg/dl (1.8-2.4); Potassium 3.7 mmol/L (3.5-5.1)
[2021-03-19 08:23] LABS: Phosphorus 3.2 mg/dl (2.5-4.9)
[2021-03-19] MEDS: INSULIN ASPART 100 UNITS/ML 3 ML PEN SC SCH ×4 (09:23→20:49)
[2021-03-19] MEDS: allopurinoL 100 MG TAB PO SCH (09:27)
[2021-03-19] MEDS: ASPIRIN 81 MG ECTAB PO SCH (09:28)
[2021-03-19] MEDS: carvediloL 6.25 MG TAB PO SCH ×2 (09:28→20:47)
[2021-03-19] MEDS: hydrALAZINE HCL 25 MG TAB PO SCH ×3 (09:28→20:47)
[2021-03-19] MEDS: DOCUSATE SODIUM/SENNA 50/8.6MG TAB PO SCH ×2 (09:28→20:47)
[2021-03-19] MEDS: ACETAMINOPHEN 325 MG TAB PO PRN ×2 (09:29→20:45)
[2021-03-19] MEDS: INSULIN GLARGINE SOLOSTAR 100 UNITS/ML 3 ML PEN SC SCH (09:29)
[2021-03-19] MEDS: LIDOCAINE 5% 1 PATCH TD SCH (09:30)
[2021-03-19] MEDS: PIPERACILLIN/TAZOBACTAM 3.375 GM in DEXTROSE 5% 100 ML IV SCH ×2 (09:39→20:40)
--- NOTE | 2021-03-19 10:08 | Hospitalist Progress Note ---
Date of Service March 19, 2021 Assessment & Plan (1) Hypertensive crisis: Multifactorial Abdominal pain from acute diverticulitis Anxiety contributory missed home BP meds BP significantly improved after initial intervention at the ER Continue home BP meds, may need dose titration Hold home diuretics for now Monitor BP Current blood pressure in the 140s/ 80s Acute diverticulitis Analgesia, anxiolytic as needed Clear liquids initially, will advance diet now to low-fat low fiber cont. [facility] consulted for diverticulitis -recommend colonoscopy in 8 weeks, patient declined Continue antibiotics for 10-14 days Advance diet as tolerated Hypokalemia -Likely due to poor oral intake, diuretics -Replete and monitor, hold diuretics for now Chronic diastolic heart failure (EF 55 to 60%, TTE 2019), patient on the dry side hx LBBB Left renal mass, some enlargement on initial CT read, [facility]up for left renal mass DM2 insulin requiring (well-controlled as of recent hemoglobin A1c of 6.25 August 2020) Basal insulin adjusted for clear liquid diet for now, ISS BG goal [id number], carb count coverage CRI, creatinine at baseline Chronic anemia, hemoglobin at baseline DVT prophylaxis with Heparin subcu Full code Admission and Anticipated Discharge Date Admission Date: March 17, 2021 Subjective Patient seen in follow-up of diverticulitis, elevated BP Currently laying in bed, says she feels better but still has discomfort in her left lower quadrant area Reports feeling very hungry, and wants to advance her diet, will switch to low- fat low fiber On [facility] + chills and fevers at home Review of Systems Review of Systems: All systems reviewed & are unremarkable except as noted in HPI & below Constitutional: no fever and no chills Respiratory: no cough and no dyspnea Cardiovascular: no chest pain and no palpitations Gastrointestinal: + abdominal pain (improved) Physical Exam Physical Exam: GENERAL: WD/WN obese female, in NAD HEENT: NC/AT, EOMI, PERRL, Pale palpebral conjunctivae NECK : Supple, short neck, no tenderness CHEST : CTAB HEART : RRR, no obvious murmurs ABDOMEN: + bowel sounds, Some distention, left-sided abdominal tenderness (improved) EXTREMITIES : Minimal LE swelling , no LE tenderness, moves extremities NEUROLOGIC : Alert and oriented x3, answers questions appropriately, no facial asymmetry, speech fluent, moves extremities SKIN: Pallor, warm, dry Results & Data Results & Data ([facility]) Vital Signs (Past 12 Hours) Vital Signs Temp Pulse Pulse Pulse Resp BP Pulse Ox 03/19/21 07:57 37.1 C 73 18 138/85 96 03/19/21 06:34 36.8 C 77 18 156/79 H 95 03/19/21 06:15 36.8 C 77 18 156/79 H 95 03/19/21 02:38 36.8 C 77 18 158/65 H 96 03/19/21 00:07 84 03/18/21 22:32 36.8 C 84 18 169/64 H 95 Laboratory Results 03/19/21 03/19/21 03/19/21 Range/Units 07:33 07:17 07:17 WBC 14.09 H (4.8-10.8) K/uL RBC 3.03 L (4.2-5.4) M/uL Hgb 9.3 L (12.0-16.0) g/dL Hct 28.5 L (37-47) % MCV 94.1 (80-100) fL MCH 30.7 (25-34) pg MCHC 32.6 (32-36) g/dL RDW Std Deviation 49.1 H (36.4-46.3) fL RDW Coeff of Noemy 14.4 (11.5-14.5) % Plt Count 289 (130-400) K/uL MPV 9.3 (7.4-10.4) fL Sodium 139 (136-145) mmol/L Potassium 3.7 (3.5-5.1) mmol/L Chloride 107 (98-107) mmol/L Carbon Dioxide 26 (21-32) mmol/L Anion Gap 6.0 (3-11) BUN 45 H (7-18) mg/dl Creatinine 2.27 H (0.6-1.2) mg/dl Est Cr Clr Drug Dosing 21.8 ml/min Est GFR ( Amer) 21.9 ml/min Est GFR (Non-Af Amer) 18.9 ml/min BUN/Creatinine Ratio 19.6 (10-20) Glucose 153 H (70-99) mg/dl POC Glucose 161 H (70-99) mg/dl Calcium 9.6 (8.5-10.1) mg/dl Phosphorus 3.2 (2.5-4.9) mg/dl Magnesium 2.4 (1.8-2.4) mg/dl 03/18/21 03/18/21 03/18/21 Range/Units 19:46 16:29 11:12 WBC (4.8-10.8) K/uL RBC (4.2-5.4) M/uL Hgb (12.0-16.0) g/dL Hct (37-47) % MCV (80-100) fL MCH (25-34) pg MCHC (32-36) g/dL RDW Std Deviation (36.4-46.3) fL RDW Coeff of Noemy (11.5-14.5) % Plt Count (130-400) K/uL MPV (7.4-10.4) fL Sodium (136-145) mmol/L Potassium (3.5-5.1) mmol/L Chloride (98-107) mmol/L Carbon Dioxide (21-32) mmol/L Anion Gap (3-11) BUN (7-18) mg/dl Creatinine (0.6-1.2) mg/dl Est Cr Clr Drug Dosing ml/min Est GFR ( Amer) ml/min Est GFR (Non-Af Amer) ml/min BUN/Creatinine Ratio (10-20) Glucose (70-99) mg/dl POC Glucose 158 H 168 H 197 H (70-99) mg/dl Calcium (8.5-10.1) mg/dl Phosphorus (2.5-4.9) mg/dl Magnesium (1.8-2.4) mg/dl Medications Administered Current Inpatient Medications Acetaminophen (Acetaminophen 325 Mg Tab) 650 mg PO Q4H PRN PRN Reason: Pain or Fever Stop: 04/16/21 04:57 Last Admin: 03/19/21 09:29 Dose: 650 mg Documented by: Allopurinol (Allopurinol 100 Mg Tab) 200 mg PO DAILY [facility] Stop: 04/16/21 08:59 Last Admin: 03/19/21 09:27 Dose: 200 mg Documented by: Aspirin (Aspirin 81 Mg Ectab) 81 mg PO QAM [facility] Stop: 04/16/21 08:59 Last Admin: 03/19/21 09:28 Dose: 81 mg Documented by: Carvedilol (Carvedilol 6.25 Mg Tab) 18.75 mg PO BID [facility] Stop: 04/16/21 08:59 Last Admin: 03/19/21 09:28 Dose: 18.75 mg Documented by: Dextrose (Dextrose 50% 50 Ml Syringe) 25 - 50 ml IV UD PRN; Protocol PRN Reason: Hypoglycemia Protocol Stop: 04/16/21 04:57 Diclofenac Sodium (Diclofenac Sod 1% Gel 100 Gm Tube) 4 gm EXT QID PRN PRN Reason: Pain Stop: 04/16/21 04:57 Famotidine (Famotidine 20 Mg Tab) 20 mg PO QPM [facility] Stop: 04/16/21 20:59 Last Admin: 03/18/21 20:17 Dose: 20 mg Documented by: Glucagon (Glucagon For Inj 1 Mg Vial) 1 mg SQ UD PRN; Protocol PRN Reason: Hypoglycemia Protocol Stop: 04/16/21 04:57 Glucose (Glucose 10 Tabs/Tube) 4 - 8 tabs PO UD PRN; Protocol PRN Reason: Hypoglycemia Protocol Stop: 04/16/21 04:57 Glucose (Glucose 40% Gel 15 Gm Tube) 15 - 30 gm PO UD PRN; Protocol PRN Reason: Hypoglycemia Protocol Stop: 04/16/21 04:57 Heparin Sodium (Porcine) (Heparin Sod 5,000 Unit/0.5 Ml Vial) 5,000 units SQ Q8 [facility] Stop: 04/16/21 05:59 Last Admin: 03/19/21 06:17 Dose: 5,000 units Documented by: Hydralazine HCl (Hydralazine Hcl 25 Mg Tab) 75 mg PO TID [facility] Stop: 04/16/21 08:59 Last Admin: 03/19/21 09:28 Dose: 75 mg Documented by: Hydromorphone HCl (Hydromorphone Inj 0.5 Mg/0.5 Ml Syr) 0.5 mg IV Q3H PRN PRN Reason: Pain Stop: 03/31/21 00:34 Last Admin: 03/18/21 13:29 Dose: 0.5 mg Documented by: Promethazine HCl 12.5 mg/ (Sodium Chloride) 50.5 mls @ 202 mls/hr IV Q6H PRN PRN Reason: Nausea And Vomiting Stop: 04/16/21 00:34 Lorazepam (Ativan) 0.25 mg in 0.5 mls @ 0.5 mls/min IV Q4H PRN PRN Reason: Anxiety Stop: 04/16/21 04:57 Piperacillin Sod/Tazobactam (Sod 3.375 gm/ Dextrose) 115 mls @ 28.75 mls/hr IV Q12H [facility]; Protocol Stop: 03/27/21 07:59 Last Admin: 03/19/21 09:39 Dose: 28.8 mls/hr Documented by: Insulin Aspart (Insulin Aspart 100 Units/Ml 3 Ml Pen) 0 units SC ACHS [facility] Stop: 04/16/21 04:57 Last Admin: 03/19/21 09:23 Dose: 2 units Documented by: Insulin Glargine (Insulin Glargine Solostar 100 Units/Ml 3 Ml Pen) 10 units SC DAILY [facility] Stop: 04/16/21 05:49 Last Admin: 03/19/21 09:29 Dose: 10 units Documented by: Isosorbide Dinitrate (Isosorbide Dinitrate 20 Mg Tab) 20 mg PO TID@0700,1200,1700 [facility] Stop: 04/16/21 06:59 Last Admin: 03/19/21 06:17 Dose: 20 mg Documented by: Lidocaine (Lidocaine 5% 1 Patch) 2 patch TD QAM [facility] Stop: 04/17/21 11:44 Last Admin: 03/19/21 09:30 Dose: 2 patch Documented by: Miscellaneous (Carbohydrates For Hypoglycemia ) 15 - 30 gm PO UD PRN PRN Reason: Hypoglycemia Protocol Stop: 04/16/21 04:57 Miscellaneous (Remove Lidoderm Patch) 1 ea N/A PM [facility] Stop: 04/16/21 20:59 Last Admin: 03/18/21 20:19 Dose: 1 ea Documented by: Miscellaneous Information (Piperacill/Tazobac Consult Active) 1 ea N/A UD PRN PRN Reason: Consult Stop: 04/15/21 22:46 Polyethylene Glycol (Polyethylene (Miralax) 17 Gm Pack) 17 gm PO DAILY PRN PRN Reason: Constipation Stop: 04/16/21 04:57 Rosuvastatin Calcium (Rosuvastatin Calcium 10 Mg Tab) 10 mg PO QPM [facility] Stop: 04/16/21 20:59 Last Admin: 03/18/21 20:19 Dose: 10 mg Documented by: Senna/Docusate Sodium (Docusate Sodium/Senna 50/8.6mg Tab) 2 tab PO BID [facility] Stop: 04/16/21 08:59 Last Admin: 03/19/21 09:28 Dose: 2 tab Documented by: Tramadol HCl (Tramadol Hcl 50 Mg Tablet) 25 - 50 mg PO Q4H PRN PRN Reason: Pain Stop: 04/16/21 04:57 Last Admin: 03/18/21 17:55 Dose: 50 mg Documented by:
[2021-03-19] MEDS ORDERED: HYDROmorphone INJ 0.5 MG/0.5 ML SYR IV PRN (10:09)
[2021-03-19] MEDS: FAMOTIDINE 20 MG TAB PO SCH (20:47)
[2021-03-19] MEDS: ROSUVASTATIN CALCIUM 10 MG TAB PO SCH (20:48)
[2021-03-19 22:19] LABS: Hematocrit (blood only) 29.3 % (37-47); Hemoglobin 9.6 g/dL (12.0-16.0)
[2021-03-20 06:11] LABS: Hematocrit (blood only) 29.1 % (37-47); Hemoglobin 9.4 g/dL (12.0-16.0); Mean Corpuscular Hemoglobin 29.8 pg (25-34); Mean Corpuscular Hgb Conc 32.3 g/dL (32-36); Mean Corpuscular Volume 92.4 fL (80-100); Mean Platelet Volume 9.3 fL (7.4-10.4); Platelet Count 281 K/uL (130-400); RDW Coefficient of Variation 14.2 % (11.5-14.5); Red Blood Count 3.15 M/uL (4.2-5.4); White Blood Count 10.73 K/uL (4.8-10.8)
[2021-03-20] MEDS: DICLOFENAC SOD 1% GEL 100 GM TUBE EXT PRN ×2 (06:27→20:42)
[2021-03-20] MEDS: HEPARIN SOD 5,000 UNIT/0.5 ML VIAL SQ SCH ×3 (06:28→20:58)
[2021-03-20] MEDS: ISOSORBIDE DINITRATE 20 MG TAB PO SCH ×3 (06:28→17:29)
[2021-03-20 06:39] LABS: BUN Creatinine Ratio 19.6 (10-20); Calcium 9.7 mg/dl (8.5-10.1); Creatinine Clr Calc Pharmacy 20.1 ml/min; Est GFR (Non-African American) 17.3 ml/min; Magnesium 2.4 mg/dl (1.8-2.4); Phosphorus 3.4 mg/dl (2.5-4.9); Potassium 3.6 mmol/L (3.5-5.1)
[2021-03-20] MEDS ORDERED: POTASSIUM CHLORIDE CRTAB 20 MEQ TABCR PO STA (07:27)
--- NOTE | 2021-03-20 07:29 | Hospitalist Progress Note ---
Date of Service March 20, 2021 Assessment & Plan (1) Hypertensive crisis: Multifactorial Abdominal pain from acute diverticulitis Anxiety contributory missed home BP meds BP significantly improved after initial intervention at the ER Continue home BP meds, may need dose titration Held home diuretics can resume lasix at lower dose Monitor BP Acute diverticulitis Analgesia, anxiolytic as needed Clear liquids initially, will advance diet now to low-fat low fiber cont. [facility] consulted for diverticulitis -recommend colonoscopy in 8 weeks, patient declined Continue antibiotics for 10-14 days Advance diet as tolerated Hypokalemia -Likely due to poor oral intake, diuretics -Replete and monitor, hold diuretics for now Chronic diastolic heart failure (EF 55 to 60%, TTE 2019), patient on the dry side hx LBBB Left renal mass, some enlargement on initial CT read, [facility] for left renal mass DM2 insulin requiring (well-controlled as of recent hemoglobin A1c of 6.25 August 2020) Basal insulin adjusted for clear liquid diet for now, ISS BG goal [id number], carb count coverage CRI, creatinine at baseline Chronic anemia, hemoglobin at baseline DVT prophylaxis with Heparin subcu Full code Admission and Anticipated Discharge Date Admission Date: March 17, 2021 Subjective Patient seen in follow-up of diverticulitis, elevated BP Currently laying in bed, says her abdominal pain is much better however last night reports passing some blood clots, per nursing staff, there was likely some old blood in the stool H&H was obtained overnight, and stable H&H this morning also stable Will place her back on clear liquid diet for now and watch her Cont. On [facility] Patient's daughter Devorah updated over the phone Review of Systems Review of Systems: All systems reviewed & are unremarkable except as noted in HPI & below Constitutional: no fever and no chills Respiratory: no cough and no dyspnea Cardiovascular: no chest pain and no palpitations Gastrointestinal: + abdominal pain (improved) Physical Exam Physical Exam: GENERAL: WD/WN obese female, in NAD HEENT: NC/AT, EOMI, PERRL, Pale palpebral conjunctivae NECK : Supple, short neck, no tenderness CHEST : CTAB HEART : RRR, no obvious murmurs ABDOMEN: + bowel sounds, Some distention, left-sided abdominal tenderness (improved) EXTREMITIES : Minimal LE swelling , no LE tenderness, moves extremities NEUROLOGIC : Alert and oriented x3, answers questions appropriately, no facial asymmetry, speech fluent, moves extremities SKIN: Pallor, warm, dry Results & Data Results & Data ([facility]) Vital Signs (Past 12 Hours) Vital Signs Temp Pulse Pulse Pulse Resp BP BP 03/20/21 03:48 36.5 C 93 H 19 178/81 H 03/20/21 00:34 72 03/19/21 23:00 37.1 C 87 83 18 179/76 H 142/91 H Pulse Ox 03/20/21 03:48 96 03/20/21 00:34 03/19/21 23:00 94 Laboratory Results 03/20/21 03/20/21 03/19/21 Range/Units 06:00 06:00 21:24 WBC 10.73 (4.8-10.8) K/uL RBC 3.15 L (4.2-5.4) M/uL Hgb 9.4 L 9.6 L (12.0-16.0) g/dL Hct 29.1 L 29.3 L (37-47) % MCV 92.4 (80-100) fL MCH 29.8 (25-34) pg MCHC 32.3 (32-36) g/dL RDW Std Deviation 48.0 H (36.4-46.3) fL RDW Coeff of Noemy 14.2 (11.5-14.5) % Plt Count 281 (130-400) K/uL MPV 9.3 (7.4-10.4) fL Sodium 138 (136-145) mmol/L Potassium 3.6 (3.5-5.1) mmol/L Chloride 105 (98-107) mmol/L Carbon Dioxide 27 (21-32) mmol/L Anion Gap 5.0 (3-11) BUN 48 H (7-18) mg/dl Creatinine 2.45 H (0.6-1.2) mg/dl Est Cr Clr Drug Dosing 20.1 ml/min Est GFR ( Amer) 20.0 ml/min Est GFR (Non-Af Amer) 17.3 ml/min BUN/Creatinine Ratio 19.6 (10-20) Glucose 148 H (70-99) mg/dl POC Glucose (70-99) mg/dl Calcium 9.7 (8.5-10.1) mg/dl Phosphorus 3.4 (2.5-4.9) mg/dl Magnesium 2.4 (1.8-2.4) mg/dl 03/19/21 03/19/21 03/19/21 Range/Units 20:25 16:31 11:36 WBC (4.8-10.8) K/uL RBC (4.2-5.4) M/uL Hgb (12.0-16.0) g/dL Hct (37-47) % MCV (80-100) fL MCH (25-34) pg MCHC (32-36) g/dL RDW Std Deviation (36.4-46.3) fL RDW Coeff of Noemy (11.5-14.5) % Plt Count (130-400) K/uL MPV (7.4-10.4) fL Sodium (136-145) mmol/L Potassium (3.5-5.1) mmol/L Chloride (98-107) mmol/L Carbon Dioxide (21-32) mmol/L Anion Gap (3-11) BUN (7-18) mg/dl Creatinine (0.6-1.2) mg/dl Est Cr Clr Drug Dosing ml/min Est GFR ( Amer) ml/min Est GFR (Non-Af Amer) ml/min BUN/Creatinine Ratio (10-20) Glucose (70-99) mg/dl POC Glucose 213 H 156 H 189 H (70-99) mg/dl Calcium (8.5-10.1) mg/dl Phosphorus (2.5-4.9) mg/dl Magnesium (1.8-2.4) mg/dl 03/19/21 03/19/21 03/19/21 Range/Units 07:33 07:17 07:17 WBC 14.09 H (4.8-10.8) K/uL RBC 3.03 L (4.2-5.4) M/uL Hgb 9.3 L (12.0-16.0) g/dL Hct 28.5 L (37-47) % MCV 94.1 (80-100) fL MCH 30.7 (25-34) pg MCHC 32.6 (32-36) g/dL RDW Std Deviation 49.1 H (36.4-46.3) fL RDW Coeff of Noemy 14.4 (11.5-14.5) % Plt Count 289 (130-400) K/uL MPV 9.3 (7.4-10.4) fL Sodium 139 (136-145) mmol/L Potassium 3.7 (3.5-5.1) mmol/L Chloride 107 (98-107) mmol/L Carbon Dioxide 26 (21-32) mmol/L Anion Gap 6.0 (3-11) BUN 45 H (7-18) mg/dl Creatinine 2.27 H (0.6-1.2) mg/dl Est Cr Clr Drug Dosing 21.8 ml/min Est GFR ( Amer) 21.9 ml/min Est GFR (Non-Af Amer) 18.9 ml/min BUN/Creatinine Ratio 19.6 (10-20) Glucose 153 H (70-99) mg/dl POC Glucose 161 H (70-99) mg/dl Calcium 9.6 (8.5-10.1) mg/dl Phosphorus 3.2 (2.5-4.9) mg/dl Magnesium 2.4 (1.8-2.4) mg/dl Medications Administered Current Inpatient Medications Acetaminophen (Acetaminophen 325 Mg Tab) 650 mg PO Q4H PRN PRN Reason: Pain or Fever Stop: 04/16/21 04:57 Last Admin: 03/19/21 20:45 Dose: 650 mg Documented by: Allopurinol (Allopurinol 100 Mg Tab) 200 mg PO DAILY [facility] Stop: 04/16/21 08:59 Last Admin: 03/19/21 09:27 Dose: 200 mg Documented by: Aspirin (Aspirin 81 Mg Ectab) 81 mg PO QAM [facility] Stop: 04/16/21 08:59 Last Admin: 03/19/21 09:28 Dose: 81 mg Documented by: Carvedilol (Carvedilol 6.25 Mg Tab) 18.75 mg PO BID [facility] Stop: 04/16/21 08:59 Last Admin: 03/19/21 20:47 Dose: 18.75 mg Documented by: Dextrose (Dextrose 50% 50 Ml Syringe) 25 - 50 ml IV UD PRN; Protocol PRN Reason: Hypoglycemia Protocol Stop: 04/16/21 04:57 Diclofenac Sodium (Diclofenac Sod 1% Gel 100 Gm Tube) 4 gm EXT QID PRN PRN Reason: Pain Stop: 04/16/21 04:57 Last Admin: 03/20/21 06:27 Dose: 4 gm Documented by: Famotidine (Famotidine 20 Mg Tab) 20 mg PO QPM [facility] Stop: 04/16/21 20:59 Last Admin: 03/19/21 20:47 Dose: 20 mg Documented by: Glucagon (Glucagon For Inj 1 Mg Vial) 1 mg SQ UD PRN; Protocol PRN Reason: Hypoglycemia Protocol Stop: 04/16/21 04:57 Glucose (Glucose 10 Tabs/Tube) 4 - 8 tabs PO UD PRN; Protocol PRN Reason: Hypoglycemia Protocol Stop: 04/16/21 04:57 Glucose (Glucose 40% Gel 15 Gm Tube) 15 - 30 gm PO UD PRN; Protocol PRN Reason: Hypoglycemia Protocol Stop: 04/16/21 04:57 Heparin Sodium (Porcine) (Heparin Sod 5,000 Unit/0.5 Ml Vial) 5,000 units SQ Q8 [facility] Stop: 04/16/21 05:59 Last Admin: 03/20/21 06:28 Dose: 5,000 units Documented by: Hydralazine HCl (Hydralazine Hcl 25 Mg Tab) 75 mg PO TID [facility] Stop: 04/16/21 08:59 Last Admin: 03/19/21 20:47 Dose: 75 mg Documented by: Hydromorphone HCl (Hydromorphone Inj 0.5 Mg/0.5 Ml Syr) 0.25 mg IV Q3H PRN PRN Reason: Pain Stop: 03/31/21 00:34 Promethazine HCl 12.5 mg/ (Sodium Chloride) 50.5 mls @ 202 mls/hr IV Q6H PRN PRN Reason: Nausea And Vomiting Stop: 04/16/21 00:34 Lorazepam (Ativan) 0.25 mg in 0.5 mls @ 0.5 mls/min IV Q4H PRN PRN Reason: Anxiety Stop: 04/16/21 04:57 Piperacillin Sod/Tazobactam (Sod 3.375 gm/ Dextrose) 115 mls @ 28.75 mls/hr IV Q12H [facility]; Protocol Stop: 03/27/21 07:59 Last Infusion: 03/20/21 00:56 Dose: Infused Documented by: Insulin Aspart (Insulin Aspart 100 Units/Ml 3 Ml Pen) 0 units SC ACHS [facility] Stop: 04/16/21 04:57 Last Admin: 03/19/21 20:49 Dose: 3 units Documented by: Insulin Glargine (Insulin Glargine Solostar 100 Units/Ml 3 Ml Pen) 10 units SC DAILY [facility] Stop: 04/16/21 05:49 Last Admin: 03/19/21 09:29 Dose: 10 units Documented by: Isosorbide Dinitrate (Isosorbide Dinitrate 20 Mg Tab) 20 mg PO TID@0700 ,1200,1700 [facility] Stop: 04/16/21 06:59 Last Admin: 03/20/21 06:28 Dose: 20 mg Documented by: Lidocaine (Lidocaine 5% 1 Patch) 2 patch TD QAM [facility] Stop: 04/17/21 11:44 Last Admin: 03/19/21 09:30 Dose: 2 patch Documented by: Miscellaneous (Carbohydrates For Hypoglycemia ) 15 - 30 gm PO UD PRN PRN Reason: Hypoglycemia Protocol Stop: 04/16/21 04:57 Miscellaneous (Remove Lidoderm Patch) 1 ea N/A PM [facility] Stop: 04/16/21 20:59 Last Admin: 03/19/21 20:47 Dose: 1 ea Documented by: Miscellaneous Information (Piperacill/Tazobac Consult Active) 1 ea N/A UD PRN PRN Reason: Consult Stop: 04/15/21 22:46 Polyethylene Glycol (Polyethylene (Miralax) 17 Gm Pack) 17 gm PO DAILY PRN PRN Reason: Constipation Stop: 04/16/21 04:57 Potassium Chloride (Potassium Chloride Crtab 20 Meq Tabcr) 20 meq PO NOW [facility] Stop: 03/20/21 07:28 Rosuvastatin Calcium (Rosuvastatin Calcium 10 Mg Tab) 10 mg PO QPM [facility] Stop: 04/16/21 20:59 Last Admin: 03/19/21 20:48 Dose: 10 mg Documented by: Senna/Docusate Sodium (Docusate Sodium/Senna 50/8.6mg Tab) 2 tab PO BID [facility] Stop: 04/16/21 08:59 Last Admin: 03/19/21 20:47 Dose: 2 tab Documented by: Tramadol HCl (Tramadol Hcl 50 Mg Tablet) 25 - 50 mg PO Q4H PRN PRN Reason: Pain Stop: 04/16/21 04:57 Last Admin: 03/18/21 17:55 Dose: 50 mg Documented by:
[2021-03-20] MEDS: hydrALAZINE HCL 25 MG TAB PO SCH ×3 (08:29→20:40)
[2021-03-20] MEDS: ASPIRIN 81 MG ECTAB PO SCH (08:30)
[2021-03-20] MEDS: carvediloL 6.25 MG TAB PO SCH ×2 (08:30→20:39)
[2021-03-20] MEDS: DOCUSATE SODIUM/SENNA 50/8.6MG TAB PO SCH ×2 (08:30→20:39)
[2021-03-20] MEDS: LIDOCAINE 5% 1 PATCH TD SCH (08:31)
[2021-03-20] MEDS: allopurinoL 100 MG TAB PO SCH (08:31)
[2021-03-20] MEDS: PIPERACILLIN/TAZOBACTAM 3.375 GM in DEXTROSE 5% 100 ML IV SCH ×2 (08:35→20:37)
[2021-03-20] MEDS: INSULIN ASPART 100 UNITS/ML 3 ML PEN SC SCH ×4 (08:35→20:44)
[2021-03-20] MEDS: INSULIN GLARGINE SOLOSTAR 100 UNITS/ML 3 ML PEN SC SCH (08:36)
[2021-03-20] MEDS: ACETAMINOPHEN 325 MG TAB PO PRN ×2 (12:24→20:36)
[2021-03-20] MEDS ORDERED: FUROSEMIDE 40 MG TAB PO ONE (13:57)
[2021-03-20] MEDS: ROSUVASTATIN CALCIUM 10 MG TAB PO SCH (20:38)
[2021-03-20] MEDS: FAMOTIDINE 20 MG TAB PO SCH (20:40)
[2021-03-21] MEDS: HEPARIN SOD 5,000 UNIT/0.5 ML VIAL SQ SCH ×3 (05:59→20:31)
[2021-03-21] MEDS: ISOSORBIDE DINITRATE 20 MG TAB PO SCH ×3 (06:02→17:10)
[2021-03-21 06:22] LABS: Hematocrit (blood only) 28.1 % (37-47); Hemoglobin 9.3 g/dL (12.0-16.0); Mean Corpuscular Hemoglobin 30.3 pg (25-34); Mean Corpuscular Hgb Conc 33.1 g/dL (32-36); Mean Corpuscular Volume 91.5 fL (80-100); Mean Platelet Volume 9.4 fL (7.4-10.4); Platelet Count 310 K/uL (130-400); RDW Coefficient of Variation 14.2 % (11.5-14.5); RDW Standard Deviation 46.7 fL (36.4-46.3); Red Blood Count 3.07 M/uL (4.2-5.4)
[2021-03-21 07:01] LABS: BUN Creatinine Ratio 18.1 (10-20); Calcium 9.2 mg/dl (8.5-10.1); Creatinine Clr Calc Pharmacy 21.2 ml/min; Est GFR (African American) 21.4 ml/min; Est GFR (Non-African American) 18.4 ml/min; Magnesium 2.4 mg/dl (1.8-2.4); Potassium 3.6 mmol/L (3.5-5.1)
[2021-03-21] MEDS: DOCUSATE SODIUM/SENNA 50/8.6MG TAB PO SCH (08:15)
[2021-03-21] MEDS: allopurinoL 100 MG TAB PO SCH (08:19)
[2021-03-21] MEDS: ASPIRIN 81 MG ECTAB PO SCH (08:19)
[2021-03-21] MEDS: carvediloL 6.25 MG TAB PO SCH ×2 (08:20→20:27)
[2021-03-21] MEDS: hydrALAZINE HCL 25 MG TAB PO SCH ×3 (08:20→20:30)
[2021-03-21] MEDS: INSULIN GLARGINE SOLOSTAR 100 UNITS/ML 3 ML PEN SC SCH (08:21)
[2021-03-21] MEDS: LIDOCAINE 5% 1 PATCH TD SCH (08:21)
[2021-03-21] MEDS: INSULIN ASPART 100 UNITS/ML 3 ML PEN SC SCH ×4 (08:24→20:56)
[2021-03-21] MEDS: PIPERACILLIN/TAZOBACTAM 3.375 GM in DEXTROSE 5% 100 ML IV SCH ×2 (08:36→20:33)
[2021-03-21] MEDS: ACETAMINOPHEN 325 MG TAB PO PRN ×2 (08:36→18:06)
[2021-03-21] MEDS: CYANOCOBALAMIN 500 MCG TABLET (VITAMIN B-12) PO SCH (08:52)
[2021-03-21] MEDS: FOLIC ACID 1 MG TAB PO SCH (08:52)
[2021-03-21] MEDS: MULTIVITAMIN TAB PO SCH (08:52)
[2021-03-21] MEDS ORDERED: FUROSEMIDE 20 MG TAB PO ONE ×2 (08:53)
--- NOTE | 2021-03-21 09:04 | Hospitalist Progress Note ---
Date of Service March 21, 2021 Assessment & Plan (1) Hypertensive crisis: Multifactorial Abdominal pain from acute diverticulitis Anxiety contributory missed home BP meds BP significantly improved after initial intervention at the ER Continue home BP meds, may need dose titration Held home diuretics on admission can resume lasix Monitor BP Acute diverticulitis Analgesia, anxiolytic as needed Clear liquids initially, will advance diet now to low-fat low fiber cont. [facility] consulted for diverticulitis -recommend colonoscopy in 8 weeks, patient declined Continue antibiotics for 10-14 days Advance diet as tolerated Advancing diet to low fat, low fiber, cont. to monitor Hypokalemia -Likely due to poor oral intake, diuretics -Replete and monitor, hold diuretics for now Chronic diastolic heart failure (EF 55 to 60%, TTE 2019), patient on the dry side on admission hx LBBB Left renal mass, some enlargement on initial CT read, patient [facility]up for left renal mass DM2 insulin requiring (well-controlled as of recent hemoglobin A1c of 6.25 August 2020) Basal insulin adjusted for clear liquid diet for now, ISS BG goal [id number], carb count coverage CRI, creatinine at baseline Chronic anemia, hemoglobin at baseline DVT prophylaxis with Heparin subcu Full code Admission and Anticipated Discharge Date Admission Date: March 17, 2021 Subjective Patient seen in follow-up of diverticulitis, elevated BP Currently laying in bed, says her abdominal pain is much better Other night pt reported passing some blood clots, per nursing staff, the stool was dark but not bloody, FOBT was negative H&H remains stable Will advance diet Cont. On Zosyn Patient's daughter Devorah updated over the phone yesterday Review of Systems Review of Systems: All systems reviewed & are unremarkable except as noted in HPI & below Constitutional: no fever and no chills Respiratory: no cough and no dyspnea Cardiovascular: no chest pain and no palpitations Gastrointestinal: + abdominal pain (improved) Physical Exam Physical Exam: GENERAL: WD/WN obese female, in NAD HEENT: NC/AT, EOMI, PERRL, Pale palpebral conjunctivae NECK : Supple, short neck, no tenderness CHEST : CTAB HEART : RRR, no obvious murmurs ABDOMEN: + bowel sounds, Some distention, left-sided abdominal tenderness (improved) EXTREMITIES : Minimal LE swelling , no LE tenderness, moves extremities NEUROLOGIC : Alert and oriented x3, answers questions appropriately, no facial asymmetry, speech fluent, moves extremities SKIN: Pallor, warm, dry Results & Data Results & Data ([facility]) Vital Signs (Past 12 Hours) Vital Signs Temp Pulse Pulse Resp BP Pulse Ox 03/21/21 07:13 36.3 C L 68 18 151/61 H 98 03/21/21 06:04 36.2 C L 70 16 176/70 H 97 03/21/21 04:00 36.9 C 68 18 154/64 H 95 03/21/21 03:39 71 03/20/21 23:27 36.5 C 71 18 155/73 H 95 Laboratory Results 03/21/21 03/21/21 03/21/21 Range/Units 07:32 05:48 05:48 WBC 9.10 (4.8-10.8) K/uL RBC 3.07 L (4.2-5.4) M/uL Hgb 9.3 L (12.0-16.0) g/dL Hct 28.1 L (37-47) % MCV 91.5 (80-100) fL MCH 30.3 (25-34) pg MCHC 33.1 (32-36) g/dL RDW Std Deviation 46.7 H (36.4-46.3) fL RDW Coeff of Noemy 14.2 (11.5-14.5) % Plt Count 310 (130-400) K/uL MPV 9.4 (7.4-10.4) fL Sodium 138 (136-145) mmol/L Potassium 3.6 (3.5-5.1) mmol/L Chloride 107 (98-107) mmol/L Carbon Dioxide 26 (21-32) mmol/L Anion Gap 5.0 (3-11) BUN 42 H (7-18) mg/dl Creatinine 2.32 H (0.6-1.2) mg/dl Est Cr Clr Drug Dosing 21.2 ml/min Est GFR ( Amer) 21.4 ml/min Est GFR (Non-Af Amer) 18.4 ml/min BUN/Creatinine Ratio 18.1 (10-20) Glucose 124 H (70-99) mg/dl POC Glucose 138 H (70-99) mg/dl Calcium 9.2 (8.5-10.1) mg/dl Magnesium 2.4 (1.8-2.4) mg/dl Stool Occult Bld Scrn (Negative) 03/20/21 03/20/21 03/20/21 Range/Units 20:21 17:41 16:34 WBC (4.8-10.8) K/uL RBC (4.2-5.4) M/uL Hgb (12.0-16.0) g/dL Hct (37-47) % MCV (80-100) fL MCH (25-34) pg MCHC (32-36) g/dL RDW Std Deviation (36.4-46.3) fL RDW Coeff of Noemy (11.5-14.5) % Plt Count (130-400) K/uL MPV (7.4-10.4) fL Sodium (136-145) mmol/L Potassium (3.5-5.1) mmol/L Chloride (98-107) mmol/L Carbon Dioxide (21-32) mmol/L Anion Gap (3-11) BUN (7-18) mg/dl Creatinine (0.6-1.2) mg/dl Est Cr Clr Drug Dosing ml/min Est GFR ( Amer) ml/min Est GFR (Non-Af Amer) ml/min BUN/Creatinine Ratio (10-20) Glucose (70-99) mg/dl POC Glucose 220 H 191 H (70-99) mg/dl Calcium (8.5-10.1) mg/dl Magnesium (1.8-2.4) mg/dl Stool Occult Bld Scrn Negative (Negative) 03/20/21 03/20/21 Range/Units 11:59 11:25 WBC (4.8-10.8) K/uL RBC (4.2-5.4) M/uL Hgb (12.0-16.0) g/dL Hct (37-47) % MCV (80-100) fL MCH (25-34) pg MCHC (32-36) g/dL RDW Std Deviation (36.4-46.3) fL RDW Coeff of Noemy (11.5-14.5) % Plt Count (130-400) K/uL MPV (7.4-10.4) fL Sodium (136-145) mmol/L Potassium (3.5-5.1) mmol/L Chloride (98-107) mmol/L Carbon Dioxide (21-32) mmol/L Anion Gap (3-11) BUN (7-18) mg/dl Creatinine (0.6-1.2) mg/dl Est Cr Clr Drug Dosing ml/min Est GFR ( Amer) ml/min Est GFR (Non-Af Amer) ml/min BUN/Creatinine Ratio (10-20) Glucose (70-99) mg/dl POC Glucose 181 H (70-99) mg/dl Calcium (8.5-10.1) mg/dl Magnesium (1.8-2.4) mg/dl Stool Occult Bld Scrn Negative (Negative) Medications Administered Current Inpatient Medications Acetaminophen (Acetaminophen 325 Mg Tab) 650 mg PO Q4H PRN PRN Reason: Pain or Fever Stop: 04/16/21 04:57 Last Admin: 03/21/21 08:36 Dose: 650 mg Documented by: Allopurinol (Allopurinol 100 Mg Tab) 200 mg PO DAILY [facility] Stop: 04/16/21 08:59 Last Admin: 03/21/21 08:19 Dose: 200 mg Documented by: Aspirin (Aspirin 81 Mg Ectab) 81 mg PO QAM [facility] Stop: 04/16/21 08:59 Last Admin: 03/21/21 08:19 Dose: 81 mg Documented by: Carvedilol (Carvedilol 6.25 Mg Tab) 18.75 mg PO BID [facility] Stop: 04/16/21 08:59 Last Admin: 03/21/21 08:20 Dose: 18.75 mg Documented by: Cyanocobalamin (Cyanocobalamin 500 Mcg Tablet (Vitamin B-12)) 500 mcg PO QAM [facility] Stop: 04/20/21 08:59 Last Admin: 03/21/21 08:52 Dose: 500 mcg Documented by: Dextrose (Dextrose 50% 50 Ml Syringe) 25 - 50 ml IV UD PRN; Protocol PRN Reason: Hypoglycemia Protocol Stop: 04/16/21 04:57 Diclofenac Sodium (Diclofenac Sod 1% Gel 100 Gm Tube) 4 gm EXT QID PRN PRN Reason: Pain Stop: 04/16/21 04:57 Last Admin: 03/20/21 20:42 Dose: 4 gm Documented by: Famotidine (Famotidine 20 Mg Tab) 20 mg PO QPM [facility] Stop: 04/16/21 20:59 Last Admin: 03/20/21 20:40 Dose: 20 mg Documented by: Folic Acid (Folic Acid 1 Mg Tab) 1 mg PO QAM [facility] Stop: 04/20/21 08:59 Last Admin: 03/21/21 08:52 Dose: 1 mg Documented by: Furosemide (Furosemide 20 Mg Tab) 60 mg PO QAM ONE Stop: 03/21/21 08:54 Glucagon (Glucagon For Inj 1 Mg Vial) 1 mg SQ UD PRN; Protocol PRN Reason: Hypoglycemia Protocol Stop: 04/16/21 04:57 Glucose (Glucose 10 Tabs/Tube) 4 - 8 tabs PO UD PRN; Protocol PRN Reason: Hypoglycemia Protocol Stop: 04/16/21 04:57 Glucose (Glucose 40% Gel 15 Gm Tube) 15 - 30 gm PO UD PRN; Protocol PRN Reason: Hypoglycemia Protocol Stop: 04/16/21 04:57 Heparin Sodium (Porcine) (Heparin Sod 5,000 Unit/0.5 Ml Vial) 5,000 units SQ Q8 [facility] Stop: 04/16/21 05:59 Last Admin: 03/21/21 05:59 Dose: 5,000 units Documented by: Hydralazine HCl (Hydralazine Hcl 25 Mg Tab) 75 mg PO TID [facility] Stop: 04/16/21 08:59 Last Admin: 03/21/21 08:20 Dose: 75 mg Documented by: Hydromorphone HCl (Hydromorphone Inj 0.5 Mg/0.5 Ml Syr) 0.25 mg IV Q3H PRN PRN Reason: Pain Stop: 03/31/21 00:34 Promethazine HCl 12.5 mg/ (Sodium Chloride) 50.5 mls @ 202 mls/hr IV Q6H PRN PRN Reason: Nausea And Vomiting Stop: 04/16/21 00:34 Lorazepam (Ativan) 0.25 mg in 0.5 mls @ 0.5 mls/min IV Q4H PRN PRN Reason: Anxiety Stop: 04/16/21 04:57 Piperacillin Sod/Tazobactam (Sod 3.375 gm/ Dextrose) 115 mls @ 28.75 mls/hr IV Q12H [facility]; Protocol Stop: 03/27/21 07:59 Last Admin: 03/21/21 08:36 Dose: 28.8 mls/hr Documented by: Furosemide 20 mg/ Syringe 2 mls @ 4 mls/min IV ONE ONE Stop: 03/21/21 08:57 Insulin Aspart (Insulin Aspart 100 Units/Ml 3 Ml Pen) 0 units SC ACHS [facility] Stop: 04/16/21 04:57 Last Admin: 03/21/21 08:24 Dose: 3 units Documented by: Insulin Glargine (Insulin Glargine Solostar 100 Units/Ml 3 Ml Pen) 10 units SC DAILY [facility] Stop: 04/16/21 05:49 Last Admin: 03/21/21 08:21 Dose: 10 units Documented by: Isosorbide Dinitrate (Isosorbide Dinitrate 20 Mg Tab) 20 mg PO TID@0700,1200,1700 [facility] Stop: 04/16/21 06:59 Last Admin: 03/21/21 06:02 Dose: 20 mg Documented by: Lidocaine (Lidocaine 5% 1 Patch) 2 patch TD QAM [facility] Stop: 04/17/21 11:44 Last Admin: 03/21/21 08:21 Dose: 2 patch Documented by: Miscellaneous (Carbohydrates For Hypoglycemia ) 15 - 30 gm PO UD PRN PRN Reason: Hypoglycemia Protocol Stop: 04/16/21 04:57 Miscellaneous (Remove Lidoderm Patch) 1 ea N/A PM [facility] Stop: 04/16/21 20:59 Last Admin: 03/20/21 20:49 Dose: 1 ea Documented by: Miscellaneous Information (Piperacill/Tazobac Consult Active) 1 ea N/A UD PRN PRN Reason: Consult Stop: 04/15/21 22:46 Multivitamins (Multivitamin Tab) 1 tab PO QAM [facility] Stop: 04/20/21 08:59 Last Admin: 03/21/21 08:52 Dose: 1 tab Documented by: Polyethylene Glycol (Polyethylene (Miralax) 17 Gm Pack) 17 gm PO DAILY PRN PRN Reason: Constipation Stop: 04/16/21 04:57 Rosuvastatin Calcium (Rosuvastatin Calcium 10 Mg Tab) 10 mg PO QPM [facility] Stop: 04/16/21 20:59 Last Admin: 03/20/21 20:38 Dose: 10 mg Documented by: Senna/Docusate Sodium (Docusate Sodium/Senna 50/8.6mg Tab) 2 tab PO BID [facility] Stop: 04/16/21 08:59 Last Admin: 03/21/21 08:15 Dose: 2 tab Documented by: Tramadol HCl (Tramadol Hcl 50 Mg Tablet) 25 - 50 mg PO Q4H PRN PRN Reason: Pain Stop: 04/16/21 04:57 Last Admin: 03/18/21 17:55 Dose: 50 mg Documented by:
[2021-03-21] MEDS ORDERED: FUROSEMIDE 20 MG in SYRINGE 0 ML IV SCH (09:15)
[2021-03-21] MEDS: PROMETHAZINE HCL 12.5 MG in SODIUM CHLORIDE 0.9% 50 ML IV PRN (11:31)
[2021-03-21] MEDS ORDERED: POTASSIUM CHLORIDE CRTAB 20 MEQ TABCR PO STA ×2 (17:41→21:08)
[2021-03-21] MEDS ORDERED: POTASSIUM CHLORIDE 20 MEQ/15 ML UDC PO STA (17:47)
[2021-03-21 18:20] LABS: BUN Creatinine Ratio 16.6 (10-20); Calcium 9.3 mg/dl (8.5-10.1); Creatinine Clr Calc Pharmacy 20.6 ml/min; Est GFR (African American) 20.5 ml/min; Est GFR (Non-African American) 17.7 ml/min; Magnesium 2.2 mg/dl (1.8-2.4); Potassium 3.6 mmol/L (3.5-5.1)
[2021-03-21] MEDS: FAMOTIDINE 20 MG TAB PO SCH (20:30)
[2021-03-21] MEDS: ROSUVASTATIN CALCIUM 10 MG TAB PO SCH (20:31)
[2021-03-22] MEDS: ISOSORBIDE DINITRATE 20 MG TAB PO SCH ×3 (06:07→17:28)
[2021-03-22] MEDS: HEPARIN SOD 5,000 UNIT/0.5 ML VIAL SQ SCH ×3 (06:08→21:43)
[2021-03-22 06:31] LABS: Hematocrit (blood only) 28.3 % (37-47); Hemoglobin 9.2 g/dL (12.0-16.0); Mean Corpuscular Hemoglobin 30.4 pg (25-34); Mean Corpuscular Hgb Conc 32.5 g/dL (32-36); Mean Corpuscular Volume 93.4 fL (80-100); Mean Platelet Volume 9.4 fL (7.4-10.4); Platelet Count 341 K/uL (130-400); RDW Coefficient of Variation 14.1 % (11.5-14.5); RDW Standard Deviation 48.4 fL (36.4-46.3); Red Blood Count 3.03 M/uL (4.2-5.4); White Blood Count 8.36 K/uL (4.8-10.8)
[2021-03-22 07:11] LABS: BUN Creatinine Ratio 16.2 (10-20); Calcium 8.7 mg/dl (8.5-10.1); Creatinine Clr Calc Pharmacy 20.7 ml/min; Est GFR (African American) 20.8 ml/min; Magnesium 2.2 mg/dl (1.8-2.4); Potassium 3.9 mmol/L (3.5-5.1)
[2021-03-22] MEDS: MULTIVITAMIN TAB PO SCH (07:40)
[2021-03-22] MEDS: carvediloL 6.25 MG TAB PO SCH ×2 (07:40→20:27)
[2021-03-22] MEDS: FUROSEMIDE 20 MG TAB PO SCH (07:40)
[2021-03-22] MEDS: FOLIC ACID 1 MG TAB PO SCH (07:40)
[2021-03-22] MEDS: allopurinoL 100 MG TAB PO SCH (07:40)
[2021-03-22] MEDS: hydrALAZINE HCL 25 MG TAB PO SCH ×3 (07:40→20:27)
[2021-03-22] MEDS: CYANOCOBALAMIN 500 MCG TABLET (VITAMIN B-12) PO SCH (07:40)
[2021-03-22] MEDS: ASPIRIN 81 MG ECTAB PO SCH (07:40)
--- NOTE | 2021-03-22 07:40 | Hospitalist Progress Note ---
Date of Service March 22, 2021 Assessment & Plan (1) Hypertensive crisis: Multifactorial Abdominal pain from acute diverticulitis Anxiety contributory missed home BP meds BP significantly improved after initial intervention at the ER Continue home BP meds, may need dose titration Held home diuretics on admission, resumed lasix Monitor BP Acute diverticulitis Analgesia, anxiolytic as needed Clear liquids initially, will advance diet now to low-fat low fiber cont. Zosyn, plan to switch to PO Augmentin on DC GI consulted for diverticulitis -recommend colonoscopy in 8 weeks, patient declined Continue antibiotics for 10-14 days Advance diet as tolerated Advancing diet to low fat, low fiber, cont. to monitor Hypokalemia -Likely due to poor oral intake, diuretics -Replete and monitor, hold diuretics for now Chronic diastolic heart failure (EF 55 to 60%, TTE 2019), patient on the dry side on admission hx LBBB Left renal mass, some enlargement on initial CT read, patient [facility] for left renal mass DM2 insulin requiring (well-controlled as of recent hemoglobin A1c of 6.25 August 2020) Basal insulin adjusted for clear liquid diet for now, ISS BG goal [id number], carb count coverage CRI, creatinine at baseline Chronic anemia, hemoglobin at baseline DVT prophylaxis with Heparin subcu Full code Dispo: Patient has a history of back pain and ambulatory dysfunction secondary to lumbar stenosis, discussed with daughters, will obtain PT OT, and will further discuss discharge plans then. CM aware. Admission and Anticipated Discharge Date Admission Date: March 17, 2021 Subjective Patient seen in follow-up of diverticulitis, elevated BP Currently laying in bed, says her abdominal pain is much better diet advanced, reports increasing cramping in LLQ w/ eating Cont. On Zosyn, plan to transition to PO Augmentin She also has a history of lumbar stenosis, follows with orthopedics, previously received steroid injections, history of ambulatory dysfunction secondary to back pain. Discussed with daughters, will obtain PT OT and will further discuss discharge plans then. Review of Systems Review of Systems: All systems reviewed & are unremarkable except as noted in HPI & below Constitutional: no fever and no chills Respiratory: no cough and no dyspnea Cardiovascular: no chest pain and no palpitations Gastrointestinal: + abdominal pain (improved) Physical Exam Physical Exam: GENERAL: WD/WN obese female, in NAD HEENT: NC/AT, EOMI, PERRL, Pale palpebral conjunctivae NECK : Supple, short neck, no tenderness CHEST : CTAB HEART : RRR, no obvious murmurs ABDOMEN: + bowel sounds, Some distention, left-sided abdominal tenderness (improved) EXTREMITIES : Minimal LE swelling , no LE tenderness, moves extremities NEUROLOGIC : Alert and oriented x3, answers questions appropriately, no facial asymmetry, speech fluent, moves extremities SKIN: Pallor, warm, dry Results & Data Results & Data ([facility]) Vital Signs (Past 12 Hours) Vital Signs Temp Pulse Pulse Pulse Resp BP Pulse Ox 03/22/21 07:16 37.1 C 70 18 167/71 H 96 03/22/21 07:00 73 03/22/21 04:00 36.7 C 67 18 169/68 H 97 03/22/21 00:18 75 172/73 H 03/21/21 23:00 36.7 C 71 18 173/81 H 99 03/21/21 22:20 68 03/21/21 20:26 75 163/80 H Laboratory Results 03/22/21 03/22/21 03/21/21 Range/Units 06:03 06:03 Unknown WBC 8.36 (4.8-10.8) K/uL RBC 3.03 L (4.2-5.4) M/uL Hgb 9.2 L (12.0-16.0) g/dL Hct 28.3 L (37-47) % MCV 93.4 (80-100) fL MCH 30.4 (25-34) pg MCHC 32.5 (32-36) g/dL RDW Std Deviation 48.4 H (36.4-46.3) fL RDW Coeff of Noemy 14.1 (11.5-14.5) % Plt Count 341 (130-400) K/uL MPV 9.4 (7.4-10.4) fL Sodium 139 (136-145) mmol/L Potassium 3.9 (3.5-5.1) mmol/L Chloride 107 (98-107) mmol/L Carbon Dioxide 27 (21-32) mmol/L Anion Gap 5.0 (3-11) BUN 38 H (7-18) mg/dl Creatinine 2.37 H (0.6-1.2) mg/dl Est Cr Clr Drug Dosing 20.7 ml/min Est GFR ( Amer) 20.8 ml/min Est GFR (Non-Af Amer) 18.0 ml/min BUN/Creatinine Ratio 16.2 (10-20) Glucose 127 H (70-99) mg/dl POC Glucose (70-99) mg/dl Calcium 8.7 (8.5-10.1) mg/dl Phosphorus 3.0 (2.5-4.9) mg/dl Magnesium 2.2 (1.8-2.4) mg/dl Stool Occult Bld Scrn Negative (Negative) 03/21/21 03/21/21 03/21/21 Range/Units 20:10 17:50 16:10 WBC (4.8-10.8) K/uL RBC (4.2-5.4) M/uL Hgb (12.0-16.0) g/dL Hct (37-47) % MCV (80-100) fL MCH (25-34) pg MCHC (32-36) g/dL RDW Std Deviation (36.4-46.3) fL RDW Coeff of Noemy (11.5-14.5) % Plt Count (130-400) K/uL MPV (7.4-10.4) fL Sodium 140 (136-145) mmol/L Potassium 3.6 (3.5-5.1) mmol/L Chloride 106 (98-107) mmol/L Carbon Dioxide 28 (21-32) mmol/L Anion Gap 6.0 (3-11) BUN 40 H (7-18) mg/dl Creatinine 2.40 H (0.6-1.2) mg/dl Est Cr Clr Drug Dosing 20.6 ml/min Est GFR ( Amer) 20.5 ml/min Est GFR (Non-Af Amer) 17.7 ml/min BUN/Creatinine Ratio 16.6 (10-20) Glucose 170 H (70-99) mg/dl POC Glucose 138 H 179 H (70-99) mg/dl Calcium 9.3 (8.5-10.1) mg/dl Phosphorus (2.5-4.9) mg/dl Magnesium 2.2 (1.8-2.4) mg/dl Stool Occult Bld Scrn (Negative) 03/21/21 Range/Units 11:23 WBC (4.8-10.8) K/uL RBC (4.2-5.4) M/uL Hgb (12.0-16.0) g/dL Hct (37-47) % MCV (80-100) fL MCH (25-34) pg MCHC (32-36) g/dL RDW Std Deviation (36.4-46.3) fL RDW Coeff of Noemy (11.5-14.5) % Plt Count (130-400) K/uL MPV (7.4-10.4) fL Sodium (136-145) mmol/L Potassium (3.5-5.1) mmol/L Chloride (98-107) mmol/L Carbon Dioxide (21-32) mmol/L Anion Gap (3-11) BUN (7-18) mg/dl Creatinine (0.6-1.2) mg/dl Est Cr Clr Drug Dosing ml/min Est GFR ( Amer) ml/min Est GFR (Non-Af Amer) ml/min BUN/Creatinine Ratio (10-20) Glucose (70-99) mg/dl POC Glucose 198 H (70-99) mg/dl Calcium (8.5-10.1) mg/dl Phosphorus (2.5-4.9) mg/dl Magnesium (1.8-2.4) mg/dl Stool Occult Bld Scrn (Negative) Medications Administered Current Inpatient Medications Acetaminophen (Acetaminophen 325 Mg Tab) 650 mg PO Q4H PRN PRN Reason: Pain or Fever Stop: 04/16/21 04:57 Last Admin: 03/21/21 18:06 Dose: 650 mg Documented by: Allopurinol (Allopurinol 100 Mg Tab) 200 mg PO DAILY [facility] Stop: 04/16/21 08:59 Last Admin: 03/21/21 08:19 Dose: 200 mg Documented by: Aspirin (Aspirin 81 Mg Ectab) 81 mg PO QAM [facility] Stop: 04/16/21 08:59 Last Admin: 03/21/21 08:19 Dose: 81 mg Documented by: Carvedilol (Carvedilol 6.25 Mg Tab) 18.75 mg PO BID [facility] Stop: 04/16/21 08:59 Last Admin: 03/21/21 20:27 Dose: 18.75 mg Documented by: Cyanocobalamin (Cyanocobalamin 500 Mcg Tablet (Vitamin B-12)) 500 mcg PO QAM [facility] Stop: 04/20/21 08:59 Last Admin: 03/21/21 08:52 Dose: 500 mcg Documented by: Dextrose (Dextrose 50% 50 Ml Syringe) 25 - 50 ml IV UD PRN; Protocol PRN Reason: Hypoglycemia Protocol Stop: 04/16/21 04:57 Diclofenac Sodium (Diclofenac Sod 1% Gel 100 Gm Tube) 4 gm EXT QID PRN PRN Reason: Pain Stop: 04/16/21 04:57 Last Admin: 03/20/21 20:42 Dose: 4 gm Documented by: Famotidine (Famotidine 20 Mg Tab) 20 mg PO QPM [facility] Stop: 04/16/21 20:59 Last Admin: 03/21/21 20:30 Dose: 20 mg Documented by: Folic Acid (Folic Acid 1 Mg Tab) 1 mg PO QAM [facility] Stop: 04/20/21 08:59 Last Admin: 03/21/21 08:52 Dose: 1 mg Documented by: Furosemide (Furosemide 20 Mg Tab) 60 mg PO QAM [facility] Stop: 04/21/21 08:59 Glucagon (Glucagon For Inj 1 Mg Vial) 1 mg SQ UD PRN; Protocol PRN Reason: Hypoglycemia Protocol Stop: 04/16/21 04:57 Glucose (Glucose 10 Tabs/Tube) 4 - 8 tabs PO UD PRN; Protocol PRN Reason: Hypoglycemia Protocol Stop: 04/16/21 04:57 Glucose (Glucose 40% Gel 15 Gm Tube) 15 - 30 gm PO UD PRN; Protocol PRN Reason: Hypoglycemia Protocol Stop: 04/16/21 04:57 Heparin Sodium (Porcine) (Heparin Sod 5,000 Unit/0.5 Ml Vial) 5,000 units SQ Q8 [facility] Stop: 04/16/21 05:59 Last Admin: 03/22/21 06:08 Dose: 5,000 units Documented by: Hydralazine HCl (Hydralazine Hcl 25 Mg Tab) 75 mg PO TID [facility] Stop: 04/16/21 08:59 Last Admin: 03/21/21 20:30 Dose: 75 mg Documented by: Hydromorphone HCl (Hydromorphone Inj 0.5 Mg/0.5 Ml Syr) 0.25 mg IV Q3H PRN PRN Reason: Pain Stop: 03/31/21 00:34 Promethazine HCl 12.5 mg/ (Sodium Chloride) 50.5 mls @ 202 mls/hr IV Q6H PRN PRN Reason: Nausea And Vomiting Stop: 04/16/21 00:34 Last Infusion: 03/21/21 11:54 Dose: Infused Documented by: Lorazepam (Ativan) 0.25 mg in 0.5 mls @ 0.5 mls/min IV Q4H PRN PRN Reason: Anxiety Stop: 04/16/21 04:57 Piperacillin Sod/Tazobactam (Sod 3.375 gm/ Dextrose) 115 mls @ 28.75 mls/hr IV Q12H [facility]; Protocol Stop: 03/27/21 07:59 Last Infusion: 03/22/21 00:37 Dose: Infused Documented by: Insulin Aspart (Insulin Aspart 100 Units/Ml 3 Ml Pen) 0 units SC ACHS [facility] Stop: 04/16/21 04:57 Last Admin: 03/21/21 20:56 Dose: Not Given Documented by: Insulin Glargine (Insulin Glargine Solostar 100 Units/Ml 3 Ml Pen) 10 units SC DAILY [facility] Stop: 04/16/21 05:49 Last Admin: 03/21/21 08:21 Dose: 10 units Documented by: Isosorbide Dinitrate (Isosorbide Dinitrate 20 Mg Tab) 20 mg PO TID@0700,1200,1700 [facility] Stop: 04/16/21 06:59 Last Admin: 03/22/21 06:07 Dose: 20 mg Documented by: Lidocaine (Lidocaine 5% 1 Patch) 2 patch TD [facility] Stop: 04/17/21 11:44 Last Admin: 03/21/21 08:21 Dose: 2 patch Documented by: Miscellaneous (Carbohydrates For Hypoglycemia ) 15 - 30 gm PO UD PRN PRN Reason: Hypoglycemia Protocol Stop: 04/16/21 04:57 Miscellaneous (Remove Lidoderm Patch) 1 ea N/A PM [facility] Stop: 04/16/21 20:59 Last Admin: 03/21/21 20:30 Dose: 1 ea Documented by: Miscellaneous Information (Piperacill/Tazobac Consult Active) 1 ea N/A UD PRN PRN Reason: Consult Stop: 04/15/21 22:46 Multivitamins (Multivitamin Tab) 1 tab PO QAM [facility] Stop: 04/20/21 08:59 Last Admin: 03/21/21 08:52 Dose: 1 tab Documented by: Polyethylene Glycol (Polyethylene (Miralax) 17 Gm Pack) 17 gm PO DAILY PRN PRN Reason: Constipation Stop: 04/16/21 04:57 Rosuvastatin Calcium (Rosuvastatin Calcium 10 Mg Tab) 10 mg PO QPM [facility] Stop: 04/16/21 20:59 Last Admin: 03/21/21 20:31 Dose: 10 mg Documented by: Tramadol HCl (Tramadol Hcl 50 Mg Tablet) 25 - 50 mg PO Q4H PRN PRN Reason: Pain Stop: 04/16/21 04:57 Last Admin: 03/18/21 17:55 Dose: 50 mg Documented by:
[2021-03-22] MEDS: PIPERACILLIN/TAZOBACTAM 3.375 GM in DEXTROSE 5% 100 ML IV SCH ×2 (07:56→20:26)
[2021-03-22] MEDS: INSULIN ASPART 100 UNITS/ML 3 ML PEN SC SCH ×4 (08:39→20:28)
[2021-03-22] MEDS: INSULIN GLARGINE SOLOSTAR 100 UNITS/ML 3 ML PEN SC SCH (08:40)
[2021-03-22] MEDS: LIDOCAINE 5% 1 PATCH TD SCH (11:43)
[2021-03-22] MEDS: ACETAMINOPHEN 325 MG TAB PO PRN ×2 (11:44→20:35)
[2021-03-22] MEDS: PROMETHAZINE HCL 12.5 MG in SODIUM CHLORIDE 0.9% 50 ML IV PRN (12:52)
[2021-03-22] MEDS: FAMOTIDINE 20 MG TAB PO SCH (20:27)
[2021-03-22] MEDS: ROSUVASTATIN CALCIUM 10 MG TAB PO SCH (20:28)
[2021-03-23] MEDS: ISOSORBIDE DINITRATE 20 MG TAB PO SCH ×3 (06:17→16:49)
[2021-03-23] MEDS: HEPARIN SOD 5,000 UNIT/0.5 ML VIAL SQ SCH ×3 (06:17→21:20)
[2021-03-23 07:17] LABS: BUN Creatinine Ratio 16.2 (10-20); Calcium 9.5 mg/dl (8.5-10.1); Creatinine Clr Calc Pharmacy 21.3 ml/min; Est GFR (African American) 21.8 ml/min; Est GFR (Non-African American) 18.8 ml/min; Potassium 3.4 mmol/L (3.5-5.1)
[2021-03-23] MEDS ORDERED: POTASSIUM CHLORIDE CRTAB 20 MEQ TABCR PO STA (08:02)
--- NOTE | 2021-03-23 08:04 | Hospitalist Progress Note ---
Date of Service March 23, 2021 Assessment & Plan (1) Hypertensive crisis: Multifactorial Abdominal pain from acute diverticulitis Anxiety contributory missed home BP meds BP significantly improved after initial intervention at the ER Continue home BP meds, may need dose titration Held home diuretics on admission, resumed lasix Monitor BP BP elevated, gave 2.5 mg amlodipine - pt may need to be discharged on that Acute diverticulitis Analgesia, anxiolytic as needed Clear liquids initially, will advance diet now to low-fat low fiber Initially Zosyn, plan to switch to PO Augmentin on DC GI consulted for diverticulitis -recommend colonoscopy in 8 weeks, patient declined Continue antibiotics for 10-14 days Pt is tolerating low fat, low fiber, cont. to monitor Hypokalemia -Likely due to poor oral intake, diuretics -Replete and monitor Chronic diastolic heart failure (EF 55 to 60%, TTE 2019), patient on the dry side on admission hx LBBB Left renal mass, some enlargement on initial CT read, patient [facility] for left renal mass DM2 insulin requiring (well-controlled as of recent hemoglobin A1c of 6.25 August 2020) Basal insulin adjusted for clear liquid diet for now, ISS BG goal [id number], carb count coverage CRI, creatinine at baseline Chronic anemia, hemoglobin at baseline DVT prophylaxis with Heparin subcu Full code Dispo: Patient has a history of back pain and ambulatory dysfunction secondary to lumbar stenosis, discussed with daughters, will obtain PT OT, and will further discuss discharge plans then. CM aware. Admission and Anticipated Discharge Date Admission Date: March 17, 2021 Subjective Patient seen in follow-up of diverticulitis, elevated BP Currently laying in bed, says her abdominal pain is much better diet advanced, reports cramping in LLQ w/ eating and when having BMs plan to transition to PO Augmentin She also has a history of lumbar stenosis, follows with orthopedics, previously received steroid injections, history of ambulatory dysfunction secondary to back pain. Discussed with daughters, will obtain PT OT and will further discuss discharge plans then. Review of Systems Review of Systems: All systems reviewed & are unremarkable except as noted in HPI & below Constitutional: no fever and no chills Respiratory: no cough and no dyspnea Cardiovascular: no chest pain and no palpitations Gastrointestinal: + abdominal pain (improved); no nausea and no vomiting Physical Exam Physical Exam: GENERAL: WD/WN obese female, in NAD HEENT: NC/AT, EOMI, PERRL, Pale palpebral conjunctivae NECK : Supple, short neck, no tenderness CHEST : CTAB HEART : RRR, no obvious murmurs ABDOMEN: + bowel sounds, Some distention, left-sided abdominal tenderness (much improved) EXTREMITIES : Minimal LE swelling , no LE tenderness, moves extremities NEUROLOGIC : Alert and oriented x3, answers questions appropriately, no facial asymmetry, speech fluent, moves extremities SKIN: Pallor, warm, dry Results & Data Results & Data ([facility]) Vital Signs (Past 12 Hours) Vital Signs Temp Pulse Pulse Resp BP Pulse Ox 03/23/21 07:26 36.7 C 60 18 179/76 H 96 03/23/21 07:21 68 03/23/21 03:59 36.5 C 66 20 167/75 H 98 03/23/21 00:51 72 03/22/21 23:54 36.8 C 72 20 154/76 H 94 Laboratory Results 03/23/21 03/23/21 03/22/21 Range/Units 07:21 06:11 20:21 Sodium 139 (136-145) mmol/L Potassium 3.4 L (3.5-5.1) mmol/L Chloride 106 (98-107) mmol/L Carbon Dioxide 27 (21-32) mmol/L Anion Gap 6.0 (3-11) BUN 37 H (7-18) mg/dl Creatinine 2.28 H (0.6-1.2) mg/dl Est Cr Clr Drug Dosing 21.3 ml/min Est GFR ( Amer) 21.8 ml/min Est GFR (Non-Af Amer) 18.8 ml/min BUN/Creatinine Ratio 16.2 (10-20) Glucose 144 H (70-99) mg/dl POC Glucose 156 H 248 H (70-99) mg/dl Calcium 9.5 (8.5-10.1) mg/dl 03/22/21 03/22/21 Range/Units 16:42 11:36 Sodium (136-145) mmol/L Potassium (3.5-5.1) mmol/L Chloride (98-107) mmol/L Carbon Dioxide (21-32) mmol/L Anion Gap (3-11) BUN (7-18) mg/dl Creatinine (0.6-1.2) mg/dl Est Cr Clr Drug Dosing ml/min Est GFR ( Amer) ml/min Est GFR (Non-Af Amer) ml/min BUN/Creatinine Ratio (10-20) Glucose (70-99) mg/dl POC Glucose 181 H 201 H (70-99) mg/dl Calcium (8.5-10.1) mg/dl Medications Administered Current Inpatient Medications Acetaminophen (Acetaminophen 325 Mg Tab) 650 mg PO Q4H PRN PRN Reason: Pain or Fever Stop: 04/16/21 04:57 Last Admin: 03/22/21 20:35 Dose: 650 mg Documented by: Allopurinol (Allopurinol 100 Mg Tab) 200 mg PO DAILY ARMOND Stop: 04/16/21 08:59 Last Admin: 03/22/21 07:40 Dose: 200 mg Documented by: Aspirin (Aspirin 81 Mg Ectab) 81 mg PO QAM [facility] Stop: 04/16/21 08:59 Last Admin: 03/22/21 07:40 Dose: 81 mg Documented by: Carvedilol (Carvedilol 6.25 Mg Tab) 18.75 mg PO BID [facility] Stop: 04/16/21 08:59 Last Admin: 03/22/21 20:27 Dose: 18.75 mg Documented by: Cyanocobalamin (Cyanocobalamin 500 Mcg Tablet (Vitamin B-12)) 500 mcg PO QAM [facility] Stop: 04/20/21 08:59 Last Admin: 03/22/21 07:40 Dose: 500 mcg Documented by: Dextrose (Dextrose 50% 50 Ml Syringe) 25 - 50 ml IV UD PRN; Protocol PRN Reason: Hypoglycemia Protocol Stop: 04/16/21 04:57 Diclofenac Sodium (Diclofenac Sod 1% Gel 100 Gm Tube) 4 gm EXT QID PRN PRN Reason: Pain Stop: 04/16/21 04:57 Last Admin: 03/20/21 20:42 Dose: 4 gm Documented by: Famotidine (Famotidine 20 Mg Tab) 20 mg PO QPM ARMOND Stop: 04/16/21 20:59 Last Admin: 03/22/21 20:27 Dose: 20 mg Documented by: Folic Acid (Folic Acid 1 Mg Tab) 1 mg PO QAM [facility]MOND Stop: 04/20/21 08:59 Last Admin: 03/22/21 07:40 Dose: 1 mg Documented by: Furosemide (Furosemide 20 Mg Tab) 60 mg PO QAM [facility] Stop: 04/21/21 08:59 Last Admin: 03/22/21 07:40 Dose: 60 mg Documented by: Glucagon (Glucagon For Inj 1 Mg Vial) 1 mg SQ UD PRN; Protocol PRN Reason: Hypoglycemia Protocol Stop: 04/16/21 04:57 Glucose (Glucose 10 Tabs/Tube) 4 - 8 tabs PO UD PRN; Protocol PRN Reason: Hypoglycemia Protocol Stop: 04/16/21 04:57 Glucose (Glucose 40% Gel 15 Gm Tube) 15 - 30 gm PO UD PRN; Protocol PRN Reason: Hypoglycemia Protocol Stop: 04/16/21 04:57 Heparin Sodium (Porcine) (Heparin Sod 5,000 Unit/0.5 Ml Vial) 5,000 units SQ Q8 ARMOND Stop: 04/16/21 05:59 Last Admin: 03/23/21 06:17 Dose: 5,000 units Documented by: Hydralazine HCl (Hydralazine Hcl 25 Mg Tab) 75 mg PO TID [facility] Stop: 04/16/21 08:59 Last Admin: 03/22/21 20:27 Dose: 75 mg Documented by: Hydromorphone HCl (Hydromorphone Inj 0.5 Mg/0.5 Ml Syr) 0.25 mg IV Q3H PRN PRN Reason: Pain Stop: 03/31/21 00:34 Promethazine HCl 12.5 mg/ (Sodium Chloride) 50.5 mls @ 202 mls/hr IV Q6H PRN PRN Reason: Nausea And Vomiting Stop: 04/16/21 00:34 Last Infusion: 03/22/21 13:36 Dose: Infused Documented by: Lorazepam (Ativan) 0.25 mg in 0.5 mls @ 0.5 mls/min IV Q4H PRN PRN Reason: Anxiety Stop: 04/16/21 04:57 Piperacillin Sod/Tazobactam (Sod 3.375 gm/ Dextrose) 115 mls @ 28.75 mls/hr IV Q12H [facility]; Protocol Stop: 03/27/21 07:59 Last Infusion: 03/23/21 00:44 Dose: Infused Documented by: Insulin Aspart (Insulin Aspart 100 Units/Ml 3 Ml Pen) 0 units SC ACHS [facility] Stop: 04/16/21 04:57 Last Admin: 03/22/21 20:28 Dose: 5 units Documented by: Insulin Glargine (Insulin Glargine Solostar 100 Units/Ml 3 Ml Pen) 10 units SC DAILY ARMOND Stop: 04/16/21 05:49 Last Admin: 03/22/21 08:40 Dose: 10 units Documented by: Isosorbide Dinitrate (Isosorbide Dinitrate 20 Mg Tab) 20 mg PO TID@0700,1200,1700 ARMOND Stop: 04/16/21 06:59 Last Admin: 03/23/21 06:17 Dose: 20 mg Documented by: Lidocaine (Lidocaine 5% 1 Patch) 2 patch TD QAM [facility] Stop: 04/17/21 11:44 Last Admin: 03/22/21 11:43 Dose: 1 patch Documented by: Miscellaneous (Carbohydrates For Hypoglycemia ) 15 - 30 gm PO UD PRN PRN Reason: Hypoglycemia Protocol Stop: 04/16/21 04:57 Miscellaneous (Remove Lidoderm Patch) 1 ea N/A PM ARMOND Stop: 04/16/21 20:59 Last Admin: 03/22/21 20:28 Dose: 1 ea Documented by: Miscellaneous Information (Piperacill/Tazobac Consult Active) 1 ea N/A UD PRN PRN Reason: Consult Stop: 04/15/21 22:46 Multivitamins (Multivitamin Tab) 1 tab PO QAM ARMOND Stop: 04/20/21 08:59 Last Admin: 03/22/21 07:40 Dose: 1 tab Documented by: Polyethylene Glycol (Polyethylene (Miralax) 17 Gm Pack) 17 gm PO DAILY PRN PRN Reason: Constipation Stop: 04/16/21 04:57 Potassium Chloride (Potassium Chloride Crtab 20 Meq Tabcr) 40 meq PO NOW STA Stop: 03/23/21 08:03 Rosuvastatin Calcium (Rosuvastatin Calcium 10 Mg Tab) 10 mg PO QPM [facility] Stop: 04/16/21 20:59 Last Admin: 03/22/21 20:28 Dose: 10 mg Documented by: Tramadol HCl (Tramadol Hcl 50 Mg Tablet) 25 - 50 mg PO Q4H PRN PRN Reason: Pain Stop: 04/16/21 04:57 Last Admin: 03/18/21 17:55 Dose: 50 mg Documented by:
[2021-03-23] MEDS: PIPERACILLIN/TAZOBACTAM 3.375 GM in DEXTROSE 5% 100 ML IV SCH (08:32)
[2021-03-23] MEDS: INSULIN ASPART 100 UNITS/ML 3 ML PEN SC SCH ×4 (08:34→21:19)
[2021-03-23] MEDS: ACETAMINOPHEN 325 MG TAB PO PRN ×2 (08:34→19:55)
[2021-03-23] MEDS: allopurinoL 100 MG TAB PO SCH (08:37)
[2021-03-23] MEDS: ASPIRIN 81 MG ECTAB PO SCH (08:37)
[2021-03-23] MEDS: hydrALAZINE HCL 25 MG TAB PO SCH ×3 (08:41→19:58)
[2021-03-23] MEDS: FUROSEMIDE 20 MG TAB PO SCH (08:41)
[2021-03-23] MEDS: CYANOCOBALAMIN 500 MCG TABLET (VITAMIN B-12) PO SCH (08:41)
[2021-03-23] MEDS: carvediloL 6.25 MG TAB PO SCH ×2 (08:41→19:56)
[2021-03-23] MEDS: FOLIC ACID 1 MG TAB PO SCH (08:41)
[2021-03-23] MEDS: INSULIN GLARGINE SOLOSTAR 100 UNITS/ML 3 ML PEN SC SCH (08:42)
[2021-03-23] MEDS: MULTIVITAMIN TAB PO SCH (08:42)
[2021-03-23] MEDS: LIDOCAINE 5% 1 PATCH TD SCH (08:43)
[2021-03-23] MEDS ORDERED: amLODIPine BESYLATE 5 MG TAB PO ONE (15:43)
[2021-03-23] MEDS: AMOXICILLIN/CLAVULANATE 500 MG TAB PO SCH (16:49)
[2021-03-23] MEDS: ONDANSETRON 2 MG OD TAB PO PRN (19:50)
[2021-03-23] MEDS: FAMOTIDINE 20 MG TAB PO SCH (19:58)
[2021-03-23] MEDS: ROSUVASTATIN CALCIUM 10 MG TAB PO SCH (19:59)
[2021-03-24] MEDS: HEPARIN SOD 5,000 UNIT/0.5 ML VIAL SQ SCH ×3 (05:07→21:04)
[2021-03-24 07:56] LABS: BUN Creatinine Ratio 14.9 (10-20); Calcium 9.6 mg/dl (8.5-10.1); Creatinine Clr Calc Pharmacy 20.9 ml/min; Est GFR (African American) 21.5 ml/min; Est GFR (Non-African American) 18.5 ml/min; Potassium 3.6 mmol/L (3.5-5.1)
[2021-03-24] MEDS: ISOSORBIDE DINITRATE 20 MG TAB PO SCH ×3 (08:00→17:23)
[2021-03-24] MEDS: AMOXICILLIN/CLAVULANATE 500 MG TAB PO SCH ×2 (08:01→17:23)
[2021-03-24] MEDS: MULTIVITAMIN TAB PO SCH (08:01)
[2021-03-24] MEDS: hydrALAZINE HCL 25 MG TAB PO SCH ×3 (08:01→20:53)
[2021-03-24] MEDS: CYANOCOBALAMIN 500 MCG TABLET (VITAMIN B-12) PO SCH (08:01)
[2021-03-24] MEDS: carvediloL 6.25 MG TAB PO SCH ×2 (08:01→20:53)
[2021-03-24] MEDS: ASPIRIN 81 MG ECTAB PO SCH (08:01)
[2021-03-24] MEDS: allopurinoL 100 MG TAB PO SCH (08:01)
[2021-03-24] MEDS: FOLIC ACID 1 MG TAB PO SCH (08:58)
[2021-03-24] MEDS: FUROSEMIDE 20 MG TAB PO SCH (08:58)
[2021-03-24] MEDS: INSULIN ASPART 100 UNITS/ML 3 ML PEN SC SCH ×4 (08:58→20:55)
[2021-03-24] MEDS: INSULIN GLARGINE SOLOSTAR 100 UNITS/ML 3 ML PEN SC SCH (08:59)
[2021-03-24] MEDS: LIDOCAINE 5% 1 PATCH TD SCH (09:00)
[2021-03-24 11:44] LABS: Cdiff Antigen Negative; Cdiff Toxin A+B Negative Cdiff Toxin (Negative)
[2021-03-24] MEDS: ACETAMINOPHEN 325 MG TAB PO PRN (12:24)
[2021-03-24] MEDS: PROMETHAZINE HCL 12.5 MG in SODIUM CHLORIDE 0.9% 50 ML IV PRN (12:33)
--- NOTE | 2021-03-24 14:28 | Hospitalist Progress Note ---
Date of Service March 24, 2021 Assessment & Plan (1) Hypertensive crisis: Possible related to pain in the hospital setting missed home BP meds will Hydralazine to 100mg TID Will resume Lasix in am if creatinine stable due to recurrent diarrhea Continue monitor BP Acute diverticulitis Analgesia, anxiolytic as needed Initially on IV Zosyn, then transition to PO Augmentin GI consulted for diverticulitis -recommend colonoscopy in 8 weeks, patient declined Continue antibiotics for 10-14 days Pt is tolerating low fat, low fiber, cont. to monitor Hypokalemia Likely due to poor oral intake, diuretics and diarrhea Potassium 3.6 Continue monitor BMP Chronic diastolic heart failure Last ECHO with EF 55 to 60% in 2019 No sign of volume overload Will resume lasix in am Left renal mass CT showed stable left renal mass. [facility] for left renal mass DM2 insulin requiring Last Hba1c 6.9 on 05/11 Will check hba1c Continue insulin sliding scale Continue monitor BS Chronic Kidney disease Creatine at baseline Continue monitor BMP Chronic anemia Hemoglobin at baseline DVT prophylaxis with Heparin subcu Full code Disposition Will discharge once medically stable Admission and Anticipated Discharge Date Admission Date: March 17, 2021 Subjective Patient seen and examined for follow-up of diverticulitis Lying in bed with no acute distress Pt said that she feels nauseated associated with abdominal discomfort like she feels full She has been having recurrent diarrhea She said that anything she eats or drink she goes straight to the bathroom Denies any chest pain, palpitation, dizziness and SOB Review of Systems Review of Systems: All systems reviewed & are unremarkable except as noted in Subjective Physical Exam Physical Exam: General- No acute distress Head- atraumatic Eyes- PERRL, EOMI, ENT- oropharynx clear Neck- supple, no JVD Lungs- clear to auscultation Heart- regular rhythm; no murmur Abdomen- normal bowel sounds, soft, nontender Extremities- no calf tenderness Neuro- alert, oriented x 3; PERRL, EOMI; no facial palsy; no dysarthria Skin- warm & dry Results & Data Results & Data ([facility]) Vital Signs (Past 12 Hours) Vital Signs Temp Pulse Pulse Resp BP Pulse Ox 03/24/21 11:25 36.6 C 72 18 144/68 H 90 03/24/21 07:55 36.8 C 69 18 156/71 H 97 03/24/21 07:23 66 03/24/21 04:07 36.8 C 71 18 158/72 H 100
[2021-03-24] MEDS: FAMOTIDINE 20 MG TAB PO SCH (20:53)
[2021-03-24] MEDS: ROSUVASTATIN CALCIUM 10 MG TAB PO SCH (20:54)
[2021-03-25] MEDS: ALUMINUM/MAGNESIUM SUSP 30 ML UDC PO PRN (00:22)
[2021-03-25] MEDS: ONDANSETRON 2 MG OD TAB PO PRN (00:23)
[2021-03-25] MEDS: HEPARIN SOD 5,000 UNIT/0.5 ML VIAL SQ SCH ×3 (05:47→21:38)
[2021-03-25 09:19] LABS: Estimated Average Glucose 163 mg/dl; Hemoglobin A1C 7.3 % (4.5-5.6)
[2021-03-25] MEDS: hydrALAZINE TAB 50 MG TAB PO SCH ×3 (09:31→21:37)
[2021-03-25] MEDS: FOLIC ACID 1 MG TAB PO SCH (09:32)
[2021-03-25] MEDS: allopurinoL 100 MG TAB PO SCH (09:32)
[2021-03-25 09:33] LABS: BUN Creatinine Ratio 17.6 (10-20); Calcium 9.6 mg/dl (8.5-10.1); Creatinine Clr Calc Pharmacy 20.5 ml/min; Est GFR (African American) 20.9 ml/min; Est GFR (Non-African American) 18.1 ml/min; Potassium 3.3 mmol/L (3.5-5.1)
[2021-03-25] MEDS: ISOSORBIDE DINITRATE 20 MG TAB PO SCH ×3 (09:33→18:11)
[2021-03-25] MEDS: CYANOCOBALAMIN 500 MCG TABLET (VITAMIN B-12) PO SCH (09:33)
[2021-03-25] MEDS: FUROSEMIDE 20 MG TAB PO SCH (09:33)
[2021-03-25] MEDS: ASPIRIN 81 MG ECTAB PO SCH (09:33)
[2021-03-25] MEDS: carvediloL 6.25 MG TAB PO SCH ×2 (09:34→21:37)
[2021-03-25] MEDS: INSULIN ASPART 100 UNITS/ML 3 ML PEN SC SCH ×4 (09:34→21:29)
[2021-03-25] MEDS: LIDOCAINE 5% 1 PATCH TD SCH (09:44)
[2021-03-25] MEDS: MULTIVITAMIN TAB PO SCH (09:44)
[2021-03-25] MEDS: INSULIN GLARGINE SOLOSTAR 100 UNITS/ML 3 ML PEN SC SCH (09:44)
[2021-03-25] MEDS: AMOXICILLIN/CLAVULANATE 500 MG TAB PO SCH ×2 (10:12→18:10)
[2021-03-25] MEDS ORDERED: POTASSIUM CHLORIDE CRTAB 20 MEQ TABCR PO STA (10:29)
--- NOTE | 2021-03-25 18:15 | XRay Report ---
KUB CLINICAL HISTORY: Generalized abdominal pain. FINDINGS: 3 AP, portable, supine abdominal radiographs are compared to study dated 10/26/2020 and corre lated with abdominal CT dated 03/16/2021. Cholecystectomy clips are noted in the right upper quadrant. There is a nonobstructed abdominal bowel gas pattern. No evidence of intraperitoneal free air is see n on these supine views. There are no abnormal abdominal calcifications. The skeletal structures are osteopenic and appear intact. Cardiomegaly is noted in the lower chest. IMPRESSION: Nonobstructed abdominal bowel gas pattern. Electronically signed by: Marco Morocho M.D. 03/25/2021 6:14 PM
--- NOTE | 2021-03-25 20:00 | Hospitalist Progress Note ---
Date of Service March 25, 2021 Assessment & Plan (1) Hypertensive crisis: Possible related to pain in the hospital setting missed home BP meds Continue Hydralazine 100mg TID Continue monitor BP Acute diverticulitis Analgesia, anxiolytic as needed Initially on IV Zosyn, then transition to PO Augmentin KUB showed nonobstructed abdominal bowel gas pattern. GI consulted for diverticulitis -recommend colonoscopy in 8 weeks, but patient declined Continue antibiotics for 10-14 days Pt is tolerating low fat, low fiber, cont. to monitor Hypokalemia Likely due to poor oral intake, diuretics and diarrhea Potassium 3.3 K replaced Continue monitor BMP Chronic diastolic heart failure Last ECHO with EF 55 to 60% in 2019 No sign of volume overload Continue lasix PO Left renal mass CT showed stable left renal mass. [facility] for left renal mass DM2 insulin requiring Last Hba1c 6.9 on 05/11 Will check hba1c Continue insulin sliding scale Continue monitor BS Chronic Kidney disease Creatine at baseline Continue monitor BMP Chronic anemia Hemoglobin at baseline DVT prophylaxis with Heparin subcu Full code Disposition Will discharge once medically stable Admission and Anticipated Discharge Date Admission Date: March 17, 2021 Subjective Patient seen and examined for follow-up of diverticulitis Lying in bed with no acute distress Pt said that she feels a little better she said that she does not have any more diarrhea and feels bloating She said that she is having some tenderness in her left lower side of her abdomen Denies any chest pain, palpitation, dizziness and SOB Review of Systems Review of Systems: All systems reviewed & are unremarkable except as noted in Subjective Physical Exam Physical Exam: General- No acute distress Head- atraumatic Eyes- PERRL, EOMI, ENT- oropharynx clear Neck- supple, no JVD Lungs- clear to auscultation Heart- regular rhythm; no murmur Abdomen- normal bowel sounds, soft, +tender LLQ Extremities- no calf tenderness Neuro- alert, oriented x 3; PERRL, EOMI; no facial palsy; no dysarthria Skin- warm & dry Results & Data Results & Data ([facility]) Vital Signs (Past 12 Hours) Vital Signs Temp Pulse Pulse Resp BP Pulse Ox 03/25/21 19:00 36.6 C 70 18 168/67 H 95 03/25/21 15:13 36.6 C 70 16 147/68 H 93 03/25/21 15:02 70 03/25/21 11:47 36.6 C 79 19 154/64 H 93 03/25/21 08:13 36.6 C 73 21 174/80 H 92
[2021-03-25] MEDS: FAMOTIDINE 20 MG TAB PO SCH (21:37)
[2021-03-25] MEDS: ROSUVASTATIN CALCIUM 10 MG TAB PO SCH (21:39)
[2021-03-26] MEDS: ALUMINUM/MAGNESIUM SUSP 30 ML UDC PO PRN (01:24)
[2021-03-26] MEDS: ISOSORBIDE DINITRATE 20 MG TAB PO SCH ×3 (06:35→17:37)
[2021-03-26] MEDS: HEPARIN SOD 5,000 UNIT/0.5 ML VIAL SQ SCH ×3 (06:36→21:28)
[2021-03-26 07:59] LABS: BUN Creatinine Ratio 17.7 (10-20); Calcium 9.6 mg/dl (8.5-10.1); Creatinine Clr Calc Pharmacy 19.4 ml/min; Est GFR (African American) 19.7 ml/min; Potassium 3.6 mmol/L (3.5-5.1)
[2021-03-26] MEDS: INSULIN GLARGINE SOLOSTAR 100 UNITS/ML 3 ML PEN SC SCH (09:06)
[2021-03-26] MEDS: INSULIN ASPART 100 UNITS/ML 3 ML PEN SC SCH ×4 (09:06→20:20)
[2021-03-26] MEDS: allopurinoL 100 MG TAB PO SCH (09:14)
[2021-03-26] MEDS: FUROSEMIDE 20 MG TAB PO SCH (09:14)
[2021-03-26] MEDS: hydrALAZINE TAB 50 MG TAB PO SCH ×3 (09:15→20:19)
[2021-03-26] MEDS: AMOXICILLIN/CLAVULANATE 500 MG TAB PO SCH ×2 (09:15→17:37)
[2021-03-26] MEDS: ASPIRIN 81 MG ECTAB PO SCH (09:16)
[2021-03-26] MEDS: CYANOCOBALAMIN 500 MCG TABLET (VITAMIN B-12) PO SCH (09:17)
[2021-03-26] MEDS: FOLIC ACID 1 MG TAB PO SCH (09:17)
[2021-03-26] MEDS: carvediloL 6.25 MG TAB PO SCH ×2 (09:17→20:18)
[2021-03-26] MEDS: MULTIVITAMIN TAB PO SCH (09:18)
[2021-03-26] MEDS: LIDOCAINE 5% 1 PATCH TD SCH (09:22)
--- NOTE | 2021-03-26 19:16 | Hospitalist Progress Note ---
Date of Service March 26, 2021 Assessment & Plan (1) Hypertensive crisis: Possible related to pain in the hospital setting missed home BP meds prior admission Continue Hydralazine 100mg TID Continue monitor BP BP stable Acute diverticulitis Analgesia, anxiolytic as needed Initially on IV Zosyn, then transition to PO Augmentin [facility] showed nonobstructed abdominal bowel gas pattern. GI consulted for diverticulitis -recommend colonoscopy in 8 weeks, but patient declined Continue antibiotics for 10-14 days with Augmentin Pt is tolerating low fat, low fiber, cont. to monitor Diarrhea Pt asked for the Miralax last night that caused her to have 3 episodes of di arrhea last night and this morning Hypokalemia Likely due to poor oral intake, diuretics and diarrhea Potassium 3.6 K stable Continue monitor BMP Chronic diastolic heart failure Last ECHO with EF 55 to 60% in 2019 No sign of volume overload Will hold lasix since creatinine 2.4, will resume in am if creatinine stable Left renal mass CT showed stable left renal mass. [facility] for left renal mass DM2 insulin requiring Last Hba1c 6.9 on 05/11 Hgba1c 7.3 on 03/25/21 Continue insulin sliding scale Continue monitor BS Chronic Kidney disease Creatine at baseline Continue monitor BMP Chronic anemia Hemoglobin at baseline DVT prophylaxis with Heparin subcu Full code Disposition Will discharge once medically stable Admission and Anticipated Discharge Date Admission Date: March 17, 2021 Subjective Patient seen and examined for follow-up of diverticulitis Lying in bed with no acute distress Pt said that she feels alot better She said that she had 3 episodes of diarrhea last night and 3 episodes this morning She said that she asked for the miralax last night She said that her abdominal pain improved Denies any chest pain, palpitation, dizziness and SOB Review of Systems Review of Systems: All systems reviewed & are unremarkable except as noted in Subjective Physical Exam Physical Exam: General- No acute distress Head- atraumatic Eyes- PERRL, EOMI, ENT- oropharynx clear Neck- supple, no JVD Lungs- clear to auscultation Heart- regular rhythm; no murmur Abdomen- normal bowel sounds, soft, +tender LLQ Extremities- no calf tenderness Neuro- alert, oriented x 3; PERRL, EOMI; no facial palsy; no dysarthria Skin- warm & dry Results & Data Results & Data ([facility]) Vital Signs (Past 12 Hours) Vital Signs Temp Pulse Pulse Resp BP Pulse Ox 03/26/21 18:56 36.3 C L 86 18 137/70 94 03/26/21 16:03 75 03/26/21 15:22 36.6 C 73 20 153/70 H 95 03/26/21 11:41 36.7 C 81 18 147/67 H 93 03/26/21 07:43 36.4 C L 71 20 151/74 H 91 03/26/21 07:22 67
[2021-03-26] MEDS: ROSUVASTATIN CALCIUM 10 MG TAB PO SCH (20:18)
[2021-03-26] MEDS: FAMOTIDINE 20 MG TAB PO SCH (20:18)
[2021-03-26] MEDS: ACETAMINOPHEN 325 MG TAB PO PRN (20:26)
[2021-03-27] MEDS: ISOSORBIDE DINITRATE 20 MG TAB PO SCH ×2 (06:02→12:28)
[2021-03-27] MEDS: HEPARIN SOD 5,000 UNIT/0.5 ML VIAL SQ SCH (06:02)
[2021-03-27] MEDS: ACETAMINOPHEN 325 MG TAB PO PRN (06:20)
[2021-03-27 06:33] LABS: BUN Creatinine Ratio 17.4 (10-20); Creatinine Clr Calc Pharmacy 19.5 ml/min; Est GFR (African American) 19.8 ml/min; Est GFR (Non-African American) 17.1 ml/min; Potassium 3.7 mmol/L (3.5-5.1)
[2021-03-27] MEDS: AMOXICILLIN/CLAVULANATE 500 MG TAB PO SCH (08:21)
[2021-03-27] MEDS: ASPIRIN 81 MG ECTAB PO SCH (08:22)
[2021-03-27] MEDS: carvediloL 6.25 MG TAB PO SCH (08:23)
[2021-03-27] MEDS: FOLIC ACID 1 MG TAB PO SCH (08:23)
[2021-03-27] MEDS: MULTIVITAMIN TAB PO SCH (08:23)
[2021-03-27] MEDS: allopurinoL 100 MG TAB PO SCH (08:23)
[2021-03-27] MEDS: CYANOCOBALAMIN 500 MCG TABLET (VITAMIN B-12) PO SCH (08:23)
[2021-03-27] MEDS: hydrALAZINE TAB 50 MG TAB PO SCH (08:24)
[2021-03-27] MEDS: INSULIN GLARGINE SOLOSTAR 100 UNITS/ML 3 ML PEN SC SCH (08:25)
[2021-03-27] MEDS: INSULIN ASPART 100 UNITS/ML 3 ML PEN SC SCH ×2 (08:27→12:29)
[2021-03-27] MEDS: LIDOCAINE 5% 1 PATCH TD SCH (10:01)
--- NOTE | 2021-03-27 10:56 | Hospitalist Progress Note ---
Date of Service March 27, 2021 Assessment & Plan (1) Hypertensive crisis: Possible related to pain in the hospital setting missed home BP meds prior admission Continue Hydralazine 100mg TID Continue monitor BP BP stable Acute diverticulitis Analgesia, anxiolytic as needed Initially on IV Zosyn, then transition to PO Augmentin [facility] showed nonobstructed abdominal bowel gas pattern. GI consulted for diverticulitis -recommend colonoscopy in 8 weeks, but patient declined Continue antibiotics for 10-14 days with Augmentin Pt is tolerating low fat, low fiber, cont. to monitor Diarrhea Pt asked for the Miralax last night that caused her to have 3 episodes of diarrhea last night and this morning Hypokalemia Likely due to poor oral intake, diuretics and diarrhea Potassium 3.7 K stable Continue monitor BMP Chronic diastolic heart failure Last ECHO with EF 55 to 60% in 2019 No sign of volume overload Will hold lasix today since creatinine 2.4 Ok to resume Lasix tomorrow Will check BMP in 1 week to monitor renal function Left renal mass CT showed stable left renal mass. [facility] for left renal mass DM2 insulin requiring Last Hba1c 6.9 on 05/11 Hgba1c 7.3 on 03/25/21 Continue insulin sliding scale Continue monitor BS Chronic Kidney disease Creatine at baseline Continue monitor BMP Chronic anemia Hemoglobin at baseline DVT prophylaxis with Heparin subcu Full code Disposition Discharge home today Admission and Anticipated Discharge Date Admission Date: March 17, 2021 Subjective Patient seen and examined for follow-up of diverticulitis Sitting in chair with no distress Pt said that she feels much better today She said that she feels a little bloating today She said that she has 1 bowel movement today Pt tolerated diet well Denies any chest pain, palpitation, dizziness, N/V and SOB Review of Systems Review of Systems: All systems reviewed & are unremarkable except as noted in Subjective Physical Exam Physical Exam: General- No acute distress Head- atraumatic Eyes- PERRL, EOMI, ENT- oropharynx clear Neck- supple, no JVD Lungs- clear to auscultation Heart- regular rhythm; no murmur Abdomen- normal bowel sounds, soft, +tender LLQ Extremities- no calf tenderness Neuro- alert, oriented x 3; PERRL, EOMI; no facial palsy; no dysarthria Skin- warm & dry Results & Data Results & Data ([facility]) Vital Signs (Past 12 Hours) Vital Signs Temp Pulse Pulse Resp BP Pulse Ox 03/27/21 07:23 36.9 C 70 18 129/69 93 03/27/21 07:18 70 03/27/21 02:36 36.7 C 70 18 137/67 96 03/26/21 23:23 80
--- NOTE | 2021-03-30 09:06 | Discharge Summary ---
Date of Service March 27, 2021 Admission HPI Per Admitting Provider History obtained from patient and records. Medical history significant for chronic diastolic heart failure (EF 55 to 60%, TTE 2019), chronic left bundle branch block, hypertension, DM2 insulin requiring, CRI (baseline creatinine 2.5), GERD, chronic constipation, chronic anemia (baseline hemoglobin of 11), left renal mass, history diverticulosis. Last confinement October 2020 for hypertensive urgency. Incidental finding of left renal mass on CAT scan highly concerning for neoplasm. Patient follows with [facility] Urology outpatient. 2 days history of achy left-sided abdominal pain with constipation. Some nausea, no emesis. Low-grade fever, some chills as per patient. Patient denies chest pain, S OB. No prior episodes in the past. Achy headache symptoms. Chronic back pain somewhat worse as per patient. At the ER, patient received Zosyn for diverticulitis. MEDICAL HISTORY: As above. 2004 colonoscopy showed diverticulosis, small internal hemorrhoids SURGERIES: She has had knee surgeries, hysterectomy, bilateral tubal ligation, cholecystectomy and appendectomy. FAMILY HISTORY: Laryngeal cancer, stroke and throat cancer. 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 Admission Exam Per Admitting Provider GENERAL: Anxious, obese, uncomfortable, no respiratory distress SKIN: Pallor, warm HEENT: Pale palpebral conjunctivae, no ptosis, dry buccal mucosa NECK : Supple, short neck, no tenderness CHEST : CTA, no tenderness HEART : RRR, no obvious murmurs ABDOMEN: Some distention, left-sided abdominal tenderness EXTREMITIES : Minimal LE swelling , no LE tenderness, no other conspicuous deformities noted NEUROLOGIC : Coherent, no facial asymmetry, no other gross focality Principal Diagnosis Hypertensive crisis Acute diverticulitis Diarrhea Chronic diastolic heart failure Left renal mass Diabetes Chronic Kidney disease Chronic anemia Discharge Exam General- No acute distress Head- atraumatic Eyes- PERRL, EOMI, ENT- oropharynx clear Neck- supple, no JVD Lungs- clear to auscultation Heart- regular rhythm; no murmur Abdomen- normal bowel sounds, soft, +tender LLQ Extremities- no calf tenderness Neuro- alert, oriented x 3; PERRL, EOMI; no facial palsy; no dysarthria Skin- warm & dry Discharge Data Allergies Allergy/AdvReac Type Severity Reaction Status Date / Time No Known Allergies Allergy Verified 03/29/21 19:45 Consultations 03/16/21 23:48 ED Decision to Admit Stat 03/17/21 07:10 Consult Gastroenterology Routine Ordered Studies 03/16/21 21:32 CT abd pelvis wo con Urgent 03/17/21 00:33 CT head/brain wo con Urgent CT SCAN OF THE ABDOMEN AND PELVIS WITHOUT CONTRAST CLINICAL HISTORY: Left abd/back pain, urinary symptoms COMPARISON STUDY: Multiple prior CT examination of the abdomen and pelvis, most recent was performed on October 27, 2020 TECHNIQUE: CT scan of the abdomen and pelvis was performed from the lung bases to the proximal femurs. Images are reviewed in the axial, sagittal, and coronal planes. IV contrast was not administered for this examination. A dose lowering technique was utilized adhering to the principles of ALARA. CT DOSE: 1301.39 mGy.cm FINDINGS: Lower chest: Mild atelectasis at the dependent portions of bilateral lower lobes. 12 mm nodule at the subpleural aspect of the posterior basal segment of the left lower lobe might represent worsening of focal atelectasis or real pulmonary nodule, incompletely evaluated on current exam. Liver: Liver is normal in size and contour. Few hypoattenuating lesions are again seen within left lobe, largest is measuring 1.4 cm in size and appear stable since prior. Gallbladder: Surgically absent. Spleen: Normal in size and attenuation. Pancreas: Is atrophic with calcifications within its parenchyma. Adrenal glands: Right adrenal gland is unremarkable. 1.9 cm left adrenal myelolipoma is again seen. Kidneys: No evidence of hydronephrosis or nephrolithiasis. Bilateral kidneys are atrophic. Previously seen soft tissue mass within superior aspect of the left renal pelvis is unchanged since prior and measuring 3.8 x 4.0 cm on axial image (3/150). Bowel: Bowel loops are nondilated. Diverticulosis of descending and sigmoid colon is seen with interval development of inflammatory changes surrounding sigmoid colon likely representing diverticulitis. No evidence of perforation or definite fluid collection. Peritoneum: There is no intraperitoneal free air or abdominal ascites. Vasculature: The abdominal aorta is normal in course and caliber. Adenopathy: Multiple small retroperitoneal lymph nodes are seen, measuring less than 1 cm in short axis and likely nonpathological by CT size criteria. Pelvic viscera: Urinary bladder is partially decompressed which limits evaluation. Mild thickening of the urinary bladder wall and surrounding fat st randing might be seen in cystitis. Uterus is surgically absent. Skeletal structures: Osseous structures are diffusely demineralized. Mild degenerative changes of the spine. Mild diffuse soft tissue edema is seen. Soft tissue densities are again seen within the anterior abdominal wall and might be related to subcutaneous injections. IMPRESSION: 1. Diverticulosis of descending and sigmoid colon. Diverticulitis involving sigmoid colon. 2. Possible cystitis. Please correlate these findings with results of urinalysis. 3. Stable left renal mass. 4. Possible nodule within left lower lung. Further evaluation with CT of the chest without IV contrast or nonemergency basis might be considered. ACT 112: Negative or not required by law. The above report was generated using voice recognition software. It may contain grammatical, syntax or spelling errors. Electronically signed by: Mellisa Mills DO 03/17/2021 9:31 AM Dictated: 03/17/21 0909Transcribed: 03/17/21 0909 SINGLE VIEW CHEST CLINICAL HISTORY: Dyspnea. Chills. FINDINGS: An AP, portable, upright chest radiograph is compared to study dated 10/26/2020. The examination is degraded by portable technique and apical lordotic positioning. The heart is enlarged noting atherosclerotic calcification of the thoracic aorta. The pulmonary vasculature is noncongested. Atelectasis is seen at the lung bases. No airspace consolidation or large pleural effusion is identified. No pneumothorax is seen. The skeletal structures are osteopenic. The bony thorax is grossly intact. IMPRESSION: Cardiomegaly with no acute cardiopulmonary abnormality. ACT 112: Negative or not required by law. Electronically signed by: Marco Morocho M.D. 03/17/2021 10:01 AM Dictated: 03/17/21 1000Transcribed: 03/17/[address] SCAN OF THE BRAIN WITHOUT IV CONTRAST CLINICAL HISTORY: Headache. COMPARISON STUDY: CT of the brain dated 01/18/2017. TECHNIQUE: Unenhanced axial CT scan of the brain is performed from the vertex to the skull base. A dose lowering technique was utilized adhering to the principles of ALARA. CT DOSE: 614.27 mGy.cm FINDINGS: Brain parenchyma: There are age-related involutional changes noting mild subcortical and periventricular microangiopathic change. There is no hemorrhage, mass effect, or evidence of acute territorial ischemia by CT criteria. Sher- white matter differentiation is preserved. No extra-axial fluid collection is seen. Ventricles, sulci, cisterns: Prominent secondary to involutional change. Intracranial vasculature: There is atherosclerotic calcification of the cavernous carotid and vertebral arteries. Calvarium: Unremarkable. Sinuses and mastoids: Trace mucosal thickening is seen in the right maxillary antrum. The remaining visualized paranasal sinuses are clear. The mastoid air cells are well pneumatized. Orbits: The bony orbits are grossly intact. IMPRESSION: There is no hemorrhage, mass effect, or evidence of acute territorial ischemia by CT criteria. ACT 112: Negative or not required by law. Electronically signed by: Marco Morocho M.D. 03/17/2021 7:07 AM Dictated: 03/17/21 07Transcribed: 03/17/21704 KUB CLINICAL HISTORY: Generalized abdominal pain. FINDINGS: 3 AP, portable, supine abdominal radiographs are compared to study dated 10/26/2020 and correlated with abdominal CT dated 03/16/2021. Cholecystectomy clips are noted in the right upper quadrant. There is a nonobstructed abdominal bowel gas pattern. No evidence of intraperitoneal free air is seen on these supine views. There are no abnormal abdominal calcifications. The skeletal structures are osteopenic and appear intact. Cardiomegaly is noted in the lower chest. IMPRESSION: Nonobstructed abdominal bowel gas pattern. Electronically signed by: Marco Morocho M.D. 03/25/2021 6:14 PM Dictated: 03/25/211812Transcribed: 03/25/211812 Hospital Course (1) Hypertensive crisis: Possible related to pain in the hospital setting missed home BP meds prior admission Continue Hydralazine 100mg TID Continue monitor BP BP stable Acute diverticulitis Analgesia, anxiolytic as needed Initially on IV Zosyn, then transition to PO Augmentin KUB showed nonobstructed abdominal bowel gas pattern. GI consulted for diverticulitis -recommend colonoscopy in 8 weeks, but patient declined Continue antibiotics for 10-14 days with Augmentin Pt is tolerating low fat, low fiber, cont. to monitor Diarrhea Pt asked for the Miralax last night that caused her to have 3 episodes of diarrhea last night and this morning Hypokalemia Likely due to poor oral intake, diuretics and diarrhea Potassium 3.7 K stable Continue monitor BMP Chronic diastolic heart failure Last ECHO with EF 55 to 60% in 2020 No sign of volume overload Will hold lasix today since creatinine 2.4 Ok to resume Lasix tomorrow Will check BMP in 1 week to monitor renal function Left renal mass CT showed stable left renal mass. Patient follows with [facility] for left renal mass DM2 insulin requiring Last Hba1c 6.9 on 05/11 Hgba1c 7.3 on 03/25/21 Continue insulin sliding scale Continue monitor BS Chronic Kidney disease Creatine at baseline Continue monitor BMP Chronic anemia Hemoglobin at baseline DVT prophylaxis with Heparin subcu Full code Disposition Discharge home today Total Time Total Time Spent Total Time Spent (In Minutes): 35 minutes Total Time Includes: Examination of the Patient, Discharge Planning, Medication Reconciliation, Communication With Other Providers and Other Discharge Plan Discharge Items Patient Disposition: Home - Self-Care Reason For Visit: HTN URG, DIVERTICULITIS Discharge Diagnosis: Hypertensive crisis Acute diverticulitis Diarrhea Chronic diastolic heart failure Left renal mass Diabetes Chronic Kidney disease Chronic anemia Activity: Resume your previous activity Non-emergency contact: Primary Care Provider and Laboratory Technology Teacher Call non-emergency contact if: you have any medication questions, your symptoms worsen and your temperature is above 101 Follow-up/Referrals: Fox Ramirez MD [Primary Care Provider] - (Date & Time 03/29/2021 11:00 AM Provider Milla Corona DO Department [facility] ) Diet: Carb Consistent or DM2 Addtl Attending Provider Instructions: Follow up with your primary care provider Dr. Ramirez on 03/29/2021 @ 11:00 AM [facility] Follow up with gastroenterology to arrange for outpatient colonoscopy in 8 weeks if you decide to proceed with the colonoscopy Complete the course of the antibiotic with Augmentin Check BMP in 1 week to monitor your renal function (your provider will order it) Hydralazine increased from 75mg to 100mg three times a day Continue monitor your blood pressure and bring your blood pressure log at your next appointment to your provider Fall precaution Pending Studies at Discharge: No Stand-Alone Forms: My [facility], Smoking Cessation Medications and DC Order Prescriptions: New amoxicillin-pot clavulanate 500-125 mg Tablet 1 tab PO BIDM 4 Days Qty: 8 RF: 0 hydralazine 100 mg tablet 100 mg PO TID Qty: 90 RF: 0 cyanocobalamin (vitamin B-12) 500 mcg Tablet 500 mcg PO QAM Qty: 30 RF: 0 folic acid 1 mg Tablet 1 mg PO QAM 30 Days Qty: 30 RF: 0 Continued sennosides-docusate sodium [Senna with Docusate Sodium] 8.6-50 mg tablet 1 tab-cap PO BID Qty: 180 RF: 3 ergocalciferol (vitamin D2) 1,250 mcg (50,000 unit) capsule 50,000 unit PO MONTHLY RF: 0 lidocaine [Salonpas (lidocaine)] 4 % Adhesive Patch,Medicated 1 patch TOPICAL QAM RF: 0 aspirin 81 mg Tablet,Delayed Release (Dr/Ec) 81 mg PO QAM RF: 0 isosorbide dinitrate 20 mg tablet 20 mg PO TID RF: 0 rosuvastatin 10 mg tablet 10 mg PO QPM RF: 0 acetaminophen [Tylenol Extra Strength] 500 mg Tablet 1,000 mg PO AMPM RF: 0 carvedilol 12.5 mg tablet 18.75 mg PO BID RF: 0 famotidine [Pepcid] 20 mg Tablet 20 mg PO QPM RF: 0 furosemide 40 mg tablet 60 mg PO DAILY Qty: 60 RF: 0 Humulin 70/30 U-100 Insulin 100 unit/mL (70-30) suspension See Rx Instructions .ROUTE .COMPLEX RF: 0 allopurinol 100 mg tablet 200 mg PO DAILY RF: 0 diclofenac sodium 1 % gel 4 g TOP QID PRN (Reason: Pain) RF: 0 Discontinued hydralazine 50 mg tablet 50 mg PO TID Qty: 270 RF: 3 hydralazine 25 mg tablet 25 mg PO TID RF: 0 No Action ondansetron 4 mg tablet,disintegrating 4 mg PO Q6H PRN (Reason: nausea and vomiting) Qty: 14 RF: 0 Discharge Orders: Discharge Order (Routine); Ordered 03/27/21 Ordered By: Kalin Mckeon/Other Patient Handouts: Managing Type 2 Diabetes, A1C Admission Data Admit Date/Time: 03/17/21 02:02 Attending Provider: Kalin Luna Admit Provider: Flavio Doherty Primary Care Provider: Fox Ramirez Other Providers: Flavio Doherty ; Lissy Fernandez ; Kristine Boykin ; Hailey Bailey ; Luzma Barger ; Haris Scanlon ; Jacki Rodriguez ; Monica Harrington ; Wes Castillo ; Joanna Frost ; Kelly Soto ; Chantel Koenig ; Lauren Jon ; Nj Metzger ; Brenden Mosher Other Interventions: Discharge Summary Assessment (RN) Last Done: 03/27/21 11:57
--- NOTE | 2021-04-06 09:18 | Coding Query ---
To promote full compliance with coding requirements relating to patient care, provider participation is requested in all cases of stock taker uncertainty. Please assist us with the question(s) below: Coding Question(s): The diagnosis(es) below was documented in the 03/17/21 Progress Note, then subsequently fell off all further documentation. Please indicate if it is still a possible diagnosis or ruled out. Physician's Response(s): COVID-19 positive test (U07.1, COVID-19) with Acute Respiratory Distress Syndrome (ARDS) (J80, ARDS) (If respiratory failure or sepsis present, add as separate assessment) ( ) Diagnosed and POA ( ) Diagnosed and not POA ( ) Ruled out ( ) Other (please specify) I believe this was an error in documentation, possibly due to dictation with Shamika. There was no respiratory distress, no ARDS, no treatment for COVID-19 during her admission. JORDY
== END 2021-03-27 12:59 | disposition home or self-care (01) | DRG 392 ==
LOC: ED 20:22 → 2N 03-17 02:02 → SUATTDRO 03-17 02:02 → 2N 03-17 05:36

== ENCOUNTER 2021-05-20 11:55 | Inpatient (IN) ==
[2021-05-20] MEDS ORDERED: ONDANSETRON INJ 2 MG/ML 2 ML VIAL IV STA (14:52)
[2021-05-20 15:15] LABS: Appearance Urine Clear (Clear); Bacteria Urine Automated Negative (Negative); Bilirubin Urine Negative (Negative); Blood Urine Negative (Negative); Color Urine Yellow; Epithelial Cell Urine Auto 20-30 /lpf (0-5); Glucose Urine UA Negative (Negative); Ketones Urine Negative (Negative); Leukocyte Esterase Urine Trace (Negative); Nitrite Urine Negative (Negative); Protein Urine Negative (Negative); RBC Urine Automated 0-4 /hpf (0-4); Specific Gravity Urine 1.007 (1.000-1.030); Urobilinogen Urine Negative (Negative); pH Urine 6.5 (4.5-7.5)
[2021-05-20 15:17] LABS: Basophils # (auto) 0.01 K/uL (0-0.2); Basophils % (auto) 0.1 %; Eosinophils % (auto) 0.9 %; Hematocrit (blood only) 33.8 % (37-47); Hemoglobin 10.9 g/dL (12.0-16.0); Immature Granulocytes # (auto) 0.02 K/uL (0.00-0.02); Immature Granulocytes % (auto) 0.2 %; Lymphocytes % (auto) 10.4 %; Mean Corpuscular Hemoglobin 30.2 pg (25-34); Mean Corpuscular Hgb Conc 32.2 g/dL (32-36); Mean Corpuscular Volume 93.6 fL (80-100); Mean Platelet Volume 9.5 fL (7.4-10.4); Monocytes # (auto) 1.37 K/uL (0.11-0.59); Monocytes % (auto) 11.9 %; Neutrophils # (auto) 8.81 K/uL (1.4-6.5); Neutrophils % (auto) 76.5 %; Platelet Count 318 K/uL (130-400); RDW Coefficient of Variation 14.9 % (11.5-14.5); RDW Standard Deviation 50.9 fL (36.4-46.3); Red Blood Count 3.61 M/uL (4.2-5.4); White Blood Count 11.51 K/uL (4.8-10.8)
[2021-05-20 15:45] LABS: Alanine Aminotransferase 14 U/L (12-78); Albumin Level 3.9 gm/dl (3.4-5.0); Aspartate Aminotransferase 14 U/L (15-37); BUN Creatinine Ratio 19.1 (10-20); Bilirubin Direct 0.3 mg/dl (0-0.2); Blood Urea Nitrogen 43 mg/dl (7-18); Calcium 9.9 mg/dl (8.5-10.1); Carbon Dioxide 28 mmol/L (21-32); Chloride 104 mmol/L (98-107); Est GFR (African American) 21.9 ml/min; Est GFR (Non-African American) 18.9 ml/min; Glucose 77 mg/dl (70-99); Lipase 115 U/L (73-393); Potassium 3.6 mmol/L (3.5-5.1); Sodium 137 mmol/L (136-145)
[2021-05-20 15:48] LABS: Alkaline Phosphatase 65 U/L (45-117); Bilirubin,Total 1.3 mg/dl (0.2-1); Total Protein 7.3 gm/dl (6.4-8.2)
--- NOTE | 2021-05-20 16:21 | CT Scan Report ---
CT SCAN OF THE ABDOMEN AND PELVIS WITHOUT CONTRAST CLINICAL HISTORY: LLQ pain COMPARISON STUDY: April 29, 2021 TECHNIQUE: CT scan of the abdomen and pelvis was performed from the lung bases to the proximal femurs . Images are reviewed in the axial, sagittal, and coronal planes. IV contrast was not administered fo r this examination. A dose lowering technique was utilized adhering to the principles of ALARA. CT DOSE: 984.18 mGycm FINDINGS: Lower chest: Redemonstration of mild atelectasis at dependent portions of bilateral lower lobes. Liver: The unenhanced liver is normal in size, contour, and attenuation. There is no intrahepatic lia iary ductal dilatation. Redemonstration of 1.3 cm hypoattenuating lesion within left lobe of the live r which is stable since prior study. Gallbladder: Is surgically absent. Spleen: Normal in size and attenuation. Pancreas: Unremarkable. Adrenal glands: Right adrenal gland is unremarkable. Redemonstration of the 2.0 cm hypoattenuating no dule within left adrenal gland which might represent angiomyolipoma. Kidneys: No evidence of hydronephrosis. Bilateral renal cortical atrophy is again seen. No evidence o f nephrolithiasis. Multiple small lesions within right renal cortex which is unchanged since recent p rior study performed 3 weeks ago. Stable soft tissue lesion is seen within left renal pelvis. Bowel: Bowel loops are nondilated. Appendix is not well seen. Diverticulosis of sigmoid colon seen wi th interval development of surrounding inflammatory changes representing acute diverticulitis. Interval development of focal area of gas collection at the distal aspect of the sigmoid colon might represent abscess formation (3/328). Peritoneum: There is no intraperitoneal free air or abdominal ascites. Vasculature: Abdominal aorta is nondilated. Heavy concentric calcifications within its distal aspect might represent aortic stenosis. Adenopathy: None. Pelvic viscera: Fluid-filled urinary bladder. Uterus is surgically absent. Skeletal structures: Mild diffuse osteopenia and degenerative changes of the spine. IMPRESSION: 1. Diverticulosis of sigmoid colon with interval development of acute diverticulitis and possible ab scess formation. Evaluation is limited due to lack of IV contrast. Report will be sent to emergency D epartjamil. 2. Atelectasis within bilateral lower lobes. 3. Stable atrophy of bilateral kidneys, right renal lesions/cysts and left renal mass. 4. 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 5. The rest of findings as above. ACT 112: Negative or not required by law. The above report was generated using voice recognition software. It may contain grammatical, syntax o r spelling errors. Electronically signed by: Mellisa Mills DO 05/20/2021 4:19 PM
[2021-05-20] MEDS ORDERED: PIPERACILLIN/TAZOBACTAM 4.5 GM/120 ML BAG IV ONE (16:30)
--- NOTE | 2021-05-20 16:55 | Surgery Consultation ---
Date of Consultation May 20, 2021 Assessment & Plan (1) Diverticulitis of intestine with abscess: This is an 85yF with a PMH of DM, HTN, CHF, CKD, renal neoplasm who presented to the [facility] on 05/20/21 with complaints of abdominal pain and nausea. She was referred to the ER today after evaluation with her [employer] given exam findings concerning for diverticulitis. She underwent a CT a/p today that revealed findings of diverticulosis of sigmoid colon with interval development of acute diverticulitis and possible abscess formation. She says this is her second episode of diverticulitis, her first bout being a couple months ago that was managed conservatively. Appears at that time GI offered a colonoscopy within 8 weeks of recovery and she declined. Today on examination patient's abdomen is soft, mildly distended, and she has tenderness to palpation over the supra-pubic and LLQ. WBC 11.5. Patient is afebrile with stable vital signs. At this time we would recommend a trial of conservative measures, keep patient NPO with IVF and start on a course of IV abx. We will continue to monitor patient closely for any changes in status. No plans for acute surgical intervention at this time. Supervising Physician Co-Signing Physician Notes I personally saw and evaluated the patient with Nydia Martinez PA-C and agree with the assessment and plan 85 yo female with acute diverticulitis -NPO -IV ABX -Monitor vitals, abdominal exam History of Present Illness History of Present Illness This is an 85yF with a PMH of DM, HTN, CHF, CKD, renal neoplasm who presented to the [facility] on 05/20/21 with complaints of abdominal pain and nausea. Patient reports her abdominal symptoms started this past Monday when she developed pain and pressure over her bladder. She feels discomfort with urinating and with bowel movements. She denies any blood in urine or stool. 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 In the ER a CT a/p was performed revealing findings of diverticulosis of sigmoid colon with interval development of acute diverticulitis and possible abscess formation. Patient reports + chills and nausea associated with the abdominal pain. She rates her pain an 8/10 in severity. She denies any fevers, bouts of emesis, new diarrhea or constipation. She says her last BM was today, she regularly takes stool softeners and prune juice daily for constipation. Patient reports this is her second episode of diverticulitis, her first being a couple months ago and she was admitted here at [facility] and she recovered with conservative measures. Her past abdominal surgical history includes a hyst erectomy, appendectomy, cholecystectomy, tubal ligation. She last ate a piece of toast this AM. Allergies Allergy/AdvReac Type Severity Reaction Status Date / Time No Known Allergies Allergy Verified 05/20/21 15:26 Home Medications Medication Instructions Recorded Confirmed Type acetaminophen 500 mg tablet 1,000 mg PO AMPM 12/30/18 05/20/21 History (Tylenol Extra Strength) aspirin 81 mg tablet,delayed 81 mg PO QAM 12/30/18 05/20/21 History release isosorbide dinitrate 20 mg tablet 20 mg PO TID 12/30/18 05/20/21 History rosuvastatin 10 mg tablet 10 mg PO QPM 12/30/18 05/20/21 History famotidine 20 mg tablet (Pepcid) 20 mg PO QPM@1700 11/18/19 05/20/21 History carvedilol 12.5 mg tablet 18.75 mg PO BID tab 05/11/20 05/20/21 History ergocalciferol (vitamin D2) 1,250 50,000 unit PO MONTHLY 06/23/20 05/20/21 History mcg (50,000 unit) capsule lidocaine 4 % topical patch 1 patch TOPICAL QAM 06/23/20 05/20/21 History (Salonpas (lidocaine)) insulin human U-100 NPH-regulr 65 - 75 unit SUBCUT BID 03/16/21 05/20/21 History 70-30 mix 100 unit/mL subcutaneous susp (Humulin 70/30 U-100 Insulin) allopurinol 100 mg tablet 200 mg PO DAILY@1200 03/17/21 05/20/21 History diclofenac sodium 1 % topical gel 4 g TOP QID PRN 03/17/21 05/20/21 History cyanocobalamin (vitamin B-12) 500 500 mcg PO QAM #30 tab 03/27/21 05/20/21 Rx mcg tablet ondansetron 4 mg disintegrating 4 mg PO Q6H PRN #14 tab 03/29/21 05/20/21 Rx tablet folic acid 1 mg tablet 1 mg PO QAM 04/29/21 05/20/21 History furosemide 40 mg tablet 20 mg PO QPM@1700 04/29/21 05/20/21 History furosemide 40 mg tablet 40 mg PO QAM 04/29/21 05/20/21 History hydralazine 25 mg tablet 25 mg PO TID 04/29/21 05/20/21 History hydralazine 50 mg tablet 50 mg PO TID 04/29/21 05/20/21 History sennosides 8.6 mg-docusate sodium 1 tab-cap PO QPM 04/29/21 05/20/21 History 50 mg tablet (Senna with Docusate Sodium) Patient History Medical History Abdominal pain, LLQ Acute abdominal pain in left flank CHF (congestive heart failure) Chronic back pain Chronic kidney disease (CKD), stage IV (severe) Diabetes mellitus, type 2 Diverticulitis large intestine Hearing deficit History of kidney stones HTN (hypertension) HTN (hypertension) Hyperlipidemia Kidney cysts LEFT SIDE>BEING MONITORED BY UROLOGY [facility] Morbid obesity with BMI of 40.0-44.9, adult Nocturnal hypoxemia On home oxygen therapy 2L N/C at HS only Osteoarthritis Spinal stenosis Weakness Surgical History H/O: hysterectomy History of arthroscopy of left knee History of bilateral tubal ligation History of cardiac cath ?2009--@ [facility] [place] History of colonoscopy History of cystoscopy History of dilatation and curettage History of esophagogastroduodenoscopy (EGD) History of tooth extraction all teeth Hx of appendectomy Hx of cholecystectomy Nausea and vomiting after administration of anesthetic agent Family History Sister Family history of diabetes mellitus Sister Family history of diabetes mellitus Brother Family history of diabetes mellitus Family history of esophageal cancer Brother Family history of esophageal cancer Father Lung cancer Other No family history of adverse response to anesthesia No significant family history Social History Smoking Status: Never smoker Second Hand Exposure: No; Hx Alcohol Use: No Hx Substance Use: No Preferred Language: Indonesian Communication Ability: Effective 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 Beliefs That Will Affect Care: None marital status: / Current Living Situation: Family Current Living Situation Comment: WITH SON Other Information That Helps Us Care for You: No Feels Safe at Home: Yes Assistive Devices: Cane and Glasses Review of Systems Constitutional: + chills; no fever Respiratory: + dyspnea (baseline, not new) Cardiovascular: no chest pain Gastrointestinal: + abdominal pain, + bloating and + nausea; no vomiting and no change in bowel habits Physical Exam Physical Exam: awake/alert Constitutional: no acute distress Respiratory: normal respiratory effort Gastrointestinal (Abdomen): Inspection/Auscultation: + abdomen distended (mild) Percussion/Palpation: + abdomen tender (ttp in LLQ and supra-pubic regions) and abdomen soft Results & Data ([facility]) Vital Signs (Past 12 Hours) Vital Signs Temp Pulse Pulse Resp BP BP Pulse Ox 05/20/21 16:12 74 16 174/68 H 96 05/20/21 12:10 36.6 C 69 18 161/65 [address] SCAN OF THE ABDOMEN AND PELVIS WITHOUT CONTRAST CLINICAL HISTORY: LLQ pain COMPARISON STUDY: April 29, 2021 TECHNIQUE: CT scan of the abdomen and pelvis was performed from the lung bases to the proximal femurs. Images are reviewed in the axial, sagittal, and coronal planes. IV contrast was not administered for this examination. A dose lowering technique was utilized adhering to the principles of ALARA. CT DOSE: 984.18 mGycm FINDINGS: Lower chest: Redemonstration of mild atelectasis at dependent portions of bilateral lower lobes. Liver: The unenhanced liver is normal in size, contour, and attenuation. There is no intrahepatic biliary ductal dilatation. Redemonstration of 1.3 cm hypoattenuating lesion within left lobe of the liver which is stable since prior study. Gallbladder: Is surgically absent. Spleen: Normal in size and attenuation. Pancreas: Unremarkable. Adrenal glands: Right adrenal gland is unremarkable. Redemonstration of the 2.0 cm hypoattenuating nodule within left adrenal gland which might represent angiomyolipoma. Kidneys: No evidence of hydronephrosis. Bilateral renal cortical atrophy is again seen. No evidence of nephrolithiasis. Multiple small lesions within right renal cortex which is unchanged since recent prior study performed 3 weeks ago. Stable soft tissue lesion is seen within left renal pelvis. Bowel: Bowel loops are nondilated. Appendix is not well seen. Diverticulosis of sigmoid colon seen with interval development of surrounding inflammatory changes representing acute diverticulitis. Interval development of focal area of gas collection at the distal aspect of the sigmoid colon might represent abscess formation (3/328). Peritoneum: There is no intraperitoneal free air or abdominal ascites. Vasculature: Abdominal aorta is nondilated. Heavy concentric calcifications within its distal aspect might represent aortic stenosis. Adenopathy: None. Pelvic viscera: Fluid-filled urinary bladder. Uterus is surgically absent. Skeletal structures: Mild diffuse osteopenia and degenerative changes of the spine. IMPRESSION: 1. Diverticulosis of sigmoid colon with interval development of acute diverticulitis and possible abscess formation. Evaluation is limited due to lack of IV contrast. Report will be sent to emergency Department. 2. Atelectasis within bilateral lower lobes. 3. Stable atrophy of bilateral kidneys, right renal lesions/cysts and left renal mass. 4. 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 5. The rest of findings as above. ACT 112: Negative or not required by law. The above report was generated using voice recognition software. It may contain grammatical, syntax or spelling errors. Electronically signed by: Mellisa Mills DO 05/20/2021 4:19 PM PG Care Time/CCT Total # of Minutes Spent Total Time Spent with Patient: Total time spent is greater than 50% in coordination of care (as documented) at patient's floor/unit and/or counseling patient: Coding Level of Care Code 25579 Initial Inpt Care Lvl 2 Diagnoses Diverticulitis of intestine with abscess K57.80 Diverticulitis bleeding: without bleeding Diverticulitis site: unspecified part of intestinal tract (1) Diverticulitis of intestine with abscess Diverticulitis bleeding: without bleeding Diverticulitis site: unspecified part of intestinal tract Qualified Code(s): K57.80 - Diverticulitis of intestine, part unspecified, with perforation and abscess without bleeding
[2021-05-20] MEDS ORDERED: PHARMACY GLYCEMIC MGMT CONSULT STA (16:58)
--- NOTE | 2021-05-20 17:00 | History & Physical Report ---
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 except for meds, hold Lasix, general surgery evaluation has been completed, monitor daily labs, subcu heparin for DVT prophylaxis, SCDs, sliding scale insulin with pharmacy coverage. Pain control. Blood pressure control. History of Present Illness Chief Complaint: Abd Pain Primary Care Provider: Fox Ramirez MD 85-year-old female with a past medical history of urinary tract infections, diabetes, hypertension, vitamin D deficiency, secondary hyperparathyroidism, osteopenia, kidney cyst, congestive heart failure, hypertensive urgency, left bundle branch block, CKD 4, obesity, heartburn, hypertensive crisis, hypertensive heart disease with chronic kidney disease, renal neoplasm, chronic constipation, osteoarthritis, gout, and nocturnal hypoxemia who presents with left lower quadrant pain for the last 2 days getting progressively worse. She had a history of diverticulitis in the past and has a recurring episode today. She also complains of chills, but did not know her temperature. She says she cannot get warm. She said her appetite has been poor for the last 3 days. She is been trying to drink some fluids. She has been taking her medications. In the emergency room she was found to have diverticulitis with a possible abscess she was started on IV Zosyn and surgery was consulted. Of note she has a leukocytosis as well. Allergies Allergy/AdvReac Type Severity Reaction Status Date / Time No Known Allergies Allergy Verified 05/20/21 15:26 Home Medications Medication Instructions Recorded Confirmed Type acetaminophen 500 mg tablet 1,000 mg PO AMPM 12/30/18 05/20/21 History (Tylenol Extra Strength) aspirin 81 mg tablet,delayed 81 mg PO QAM 12/30/18 05/20/21 History release isosorbide dinitrate 20 mg tablet 20 mg PO TID 12/30/18 05/20/21 History rosuvastatin 10 mg tablet 10 mg PO QPM 12/30/18 05/20/21 History famotidine 20 mg tablet (Pepcid) 20 mg PO QPM@1700 11/18/19 05/20/21 History carvedilol 12.5 mg tablet 18.75 mg PO BID tab 05/11/20 05/20/21 History ergocalciferol (vitamin D2) 1,250 50,000 unit PO MONTHLY 06/23/20 05/20/21 History mcg (50,000 unit) capsule lidocaine 4 % topical patch 1 patch TOPICAL QAM 06/23/20 05/20/21 History (Salonpas (lidocaine)) insulin human U-100 NPH-regulr 65 - 75 unit SUBCUT BID 03/16/21 05/20/21 History 70-30 mix 100 unit/mL subcutaneous susp (Humulin 70/30 U-100 Insulin) allopurinol 100 mg tablet 200 mg PO DAILY@1200 03/17/21 05/20/21 History diclofenac sodium 1 % topical gel 4 g TOP QID PRN 03/17/21 05/20/21 History cyanocobalamin (vitamin B-12) 500 500 mcg PO QAM #30 tab 03/27/21 05/20/21 Rx mcg tablet ondansetron 4 mg disintegrating 4 mg PO Q6H PRN #14 tab 03/29/21 05/20/21 Rx tablet folic acid 1 mg tablet 1 mg PO QAM 04/29/21 05/20/21 History furosemide 40 mg tablet 20 mg PO QPM@1700 04/29/21 05/20/21 History furosemide 40 mg tablet 40 mg PO QAM 04/29/21 05/20/21 History hydralazine 25 mg tablet 25 mg PO TID 04/29/21 05/20/21 History hydralazine 50 mg tablet 50 mg PO TID 04/29/21 05/20/21 History sennosides 8.6 mg-docusate sodium 1 tab-cap PO QPM 04/29/21 05/20/21 History 50 mg tablet (Senna with Docusate Sodium) Past Med/Surg History Medical History Abdominal pain, LLQ Acute abdominal pain in left flank CHF (congestive heart failure) Chronic back pain Chronic kidney disease (CKD), stage IV (severe) Diabetes mellitus, type 2 Diverticulitis large intestine Hearing deficit History of kidney stones HTN (hypertension) HTN (hypertension) Hyperlipidemia Kidney cysts LEFT SIDE>BEING MONITORED BY UROLOGY [facility] Morbid obesity with BMI of 40.0-44.9, adult Nocturnal hypoxemia On home oxygen therapy 2L N/C at HS only Osteoarthritis Spinal stenosis Weakness Surgical History H/O: hysterectomy History of arthroscopy of left knee History of bilateral tubal ligation History of cardiac cath ?2009[place]@ [facility] [place] History of colonoscopy History of cystoscopy History of dilatation and curettage History of esophagogastroduodenoscopy (EGD) History of tooth extraction all teeth Hx of appendectomy Hx of cholecystectomy Nausea and vomiting after administration of anesthetic agent Family History Sister Family history of diabetes mellitus Sister Family history of diabetes mellitus Brother Family history of diabetes mellitus Family history of esophageal cancer Brother Family history of esophageal cancer Father Lung cancer Other No family history of adverse response to anesthesia No significant family history Social History Smoking Status: Never smoker Second Hand Exposure: No; Hx Alcohol Use: No Hx Substance Use: No Preferred Language: Honduran Communication Ability: Effective 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 Beliefs That Will Affect Care: None marital status: / Current Living Situation: Family Current Living Situation Comment: WITH SON Feels Safe at Home: Yes Assistive Devices: Walker Review of Systems Review of Systems: ROS-No Headache, No Visual Changes, No Nausea, No Vomiting, No Fever, No Chills, No Neck Pain or Stiffness, No Chest Pain, No Palpitations, No SOB, No AQUINO, No Cough, No Sputum, No Wheezing, +LLQ Abdominal Pain, No Diarrhea, No Hematemesis, No Hemoptysis, No Unexpected Weight Loss, No Flank pain, No Melena, No Hematochezia, No Frequency, No Urgency, No Burning, No Hematuria, No Rashes, No Diaphoresis. Appetite is Decreased Physical Exam Physical Exam: Physical Exam Gen-AAO x 3, NAD, Afebrile, Obese Head-NCAT, EOMI, PERRLA, Anicteric Sclera, No Posterior Pharyngeal Erythema Neck-Supple, No JVD, No Thyromegaly, No Masses, No LAD, No Bruits Lungs-Clear to Auscultation Bilaterally, No Rales, No Rhonchi, No Wheezing, No Crepitus Chest-No S4, +S1, +S2, No S3, No Murmurs, No Rubs, No Gallops, No Ectopy Abdomen-Soft, Bowel Sounds Present, Tender, Non Distended, No Hepatomegaly, No Splenomegaly, No Palpable Masses, No Rebound, No Rigidity, No Guarding Musculoskeletal-Full Range of Motion Bilaterally, No CVAT Extremities-No Cyanosis, No Clubbing, No Edema Nuero-Cranial Nerves II-XII grossly intact, Motor WNL, DTRs WNL, Strength WNL, Non Focal Psych-Normal Mood Results & Data Results & Data ([facility]) Vital Signs (Past 12 Hours) Vital Signs Temp Pulse Pulse Resp BP BP Pulse Ox 05/20/21 16:12 74 16 174/68 H 96 05/20/21 12:10 36.6 C 69 18 161/65 H 95 Laboratory Results Allergies No Known Allergies Allergy (Verified 05/20/21 15:26) Height/Weight/Isolation Height 5 ft 6 in Chemistry 05/20/21 15:03 Sodium 137 Potassium 3.6 Chloride 104 Carbon Dioxide 28 Anion Gap 5.0 BUN 43 H Creatinine 2.27 H Glucose 77 Urinalysis 05/20/21 15:03 Urine Color Yellow Urine Appearance Clear Urine pH 6.5 Ur Specific [place] 1.007 Urine Protein Negative Urine Glucose (UA) Negative Urine Ketones Negative Urine Blood Negative Urine Nitrite Negative Urine Bilirubin Negative Code Status & VTE Plan Code Status Full VTE Prophylaxis Plan VTE Prophylaxis will be ordered: Yes (1) Abdominal pain Abdominal location: generalized Qualified Code(s): R10.84 - Generalized abdominal pain
--- NOTE | 2021-05-20 17:14 | Emergency Department Note ---
History of Present Illness General Chief Complaint: Urinary Symptoms Stated Complaint: uti, dr emerson Time Seen by Provider: 05/20/21 14:51 History of Present Illness Provider Complaint: abdominal pain Onset (ago): 2 day(s) Pain Consistency: constant Radiation: LLQ and suprapubic Severity: moderate Maximum Pain Intensity: 8 Current Pain Intensity: 8 Quality: + stabbing, + aching, + sharp and + dull Relieved By: + nothing Exacerbated By: + nothing Associated Symptoms: + nausea; no vomiting, no diarrhea, no fever, no chills, no constipation, no dysuria, no hematemesis, no hematochezia, no melena, no hematuria, no anorexia, no syncope, no headache, no neck pain, no back pain, no chest pain, no weakness and no breathing difficulty Home Medications Medication Instructions Recorded Confirmed Type acetaminophen 500 mg tablet 1,000 mg PO AMPM 12/30/18 05/20/21 History (Tylenol Extra Strength) aspirin 81 mg tablet,delayed 81 mg PO QAM 12/30/18 05/20/21 History release isosorbide dinitrate 20 mg tablet 20 mg PO TID 12/30/18 05/20/21 History rosuvastatin 10 mg tablet 10 mg PO QPM 12/30/18 05/20/21 History famotidine 20 mg tablet (Pepcid) 20 mg PO QPM@1700 11/18/19 05/20/21 History carvedilol 12.5 mg tablet 18.75 mg PO BID tab 05/11/20 05/20/21 History ergocalciferol (vitamin D2) 1,250 50,000 unit PO MONTHLY 06/23/20 05/20/21 History mcg (50,000 unit) capsule lidocaine 4 % topical patch 1 patch TOPICAL QAM 06/23/20 05/20/21 History (Salonpas (lidocaine)) insulin human U-100 NPH-regulr 65 - 75 unit SUBCUT BID 03/16/21 05/20/21 History 70-30 mix 100 unit/mL subcutaneous susp (Humulin 70/30 U-100 Insulin) allopurinol 100 mg tablet 200 mg PO DAILY@1200 03/17/21 05/20/21 History diclofenac sodium 1 % topical gel 4 g TOP QID PRN 03/17/21 05/20/21 History cyanocobalamin (vitamin B-12) 500 500 mcg PO QAM #30 tab 03/27/21 05/20/21 Rx mcg tablet ondansetron 4 mg disintegrating 4 mg PO Q6H PRN #14 tab 03/29/21 05/20/21 Rx tablet folic acid 1 mg tablet 1 mg PO QAM 04/29/21 05/20/21 History furosemide 40 mg tablet 20 mg PO QPM@1700 04/29/21 05/20/21 History furosemide 40 mg tablet 40 mg PO QAM 04/29/21 05/20/21 History hydralazine 25 mg tablet 25 mg PO TID 04/29/21 05/20/21 History hydralazine 50 mg tablet 50 mg PO TID 04/29/21 05/20/21 History sennosides 8.6 mg-docusate sodium 1 tab-cap PO QPM 04/29/21 05/20/21 History 50 mg tablet (Senna with Docusate Sodium) Allergies Allergy/AdvReac Type Severity Reaction Status Date / Time No Known Allergies Allergy Verified 05/20/21 15:26 Past Med/Surg History Medical History Abdominal pain, LLQ Acute abdominal pain in left flank CHF (congestive heart failure) Chronic back pain Chronic kidney disease (CKD), stage IV (severe) Diabetes mellitus, type 2 Diverticulitis large intestine Hearing deficit History of kidney stones HTN (hypertension) HTN (hypertension) Hyperlipidemia Kidney cysts LEFT SIDE>BEING MONITORED BY UROLOGY [facility] Morbid obesity with BMI of 40.0-44.9, adult Nocturnal hypoxemia On home oxygen therapy 2L N/C at HS only Osteoarthritis Spinal stenosis Weakness Surgical History H/O: hysterectomy History of arthroscopy of left knee History of bilateral tubal ligation History of cardiac [place] [facility] [place] History of colonoscopy History of cystoscopy History of dilatation and curettage History of esophagogastroduodenoscopy (EGD) History of tooth extraction all teeth Hx of appendectomy Hx of cholecystectomy Nausea and vomiting after administration of anesthetic agent Family History Sister Family history of diabetes mellitus Sister Family history of diabetes mellitus Brother Family history of diabetes mellitus Family history of esophageal cancer Brother Family history of esophageal cancer Father Lung cancer Other No family history of adverse response to anesthesia No significant family history Social History Smoking Status: Never smoker Second Hand Exposure: No; Hx Alcohol Use: No Hx Substance Use: No Preferred Language: Kazakh Communication Ability: Effective Clinical Pharmacist Required: No Beliefs That Will Affect Care: None marital status: / Current Living Situation: Family Current Living Situation Comment: WITH SON Feels Safe at Home: Yes Assistive Devices: Walker Review of Systems A total of 10 systems reviewed and were otherwise negative Physical Exam Vital Signs: Vital Signs - 24 hr 05/20/21 12:10 05/20/21 16:12 Temperature 36.6 C Temperature Source Temporal Artery Sc an Pulse Rate 69 Pulse Rate [Radial ] 74 Respiratory Rate 18 16 Respiratory Effort / Characteristics Non-Labored Sponta neous Respiratory Depth Normal Respiratory Patter n Regular Blood Pressure 161/65 H Blood Pressure [Le ft Arm] 174/68 H Blood Pressure Lexi n 97 Blood Pressure Lexi n [Left Arm] 103 Blood Pressure Pos ition Sitting Pulse Oximetry 95 96 Oxygen Delivery Me thod Room Air Room Air Sepsis Recent Feve r Within 48 Hours No Sepsis New/Unexpla ined Change in Men yandel Status N/A Sepsis Action Take n by Nursing No Action Required Physical Exam: Physical Exam GENERAL: She is oriented to person, place, and time. She appears well-developed and well-nourished. She does not appear distressed. HENT: Exam performed. -Head: Normocephalic and atraumatic. -Right Ear: External ear normal. No mastoid tenderness. -Left Ear: External ear normal. No mastoid tenderness. -Mouth/Throat: The oropharynx is clear and moist. No trismus in the jaw. No dental abscesses or uvula swelling. No oropharyngeal exudate or tonsillar abscesses. EYES: Conjunctivae and EOM are normal. Pupils are equal, round, and reactive to light. Right eye exhibits no discharge. Left eye exhibits no discharge. No scleral icterus. NECK: Normal range of motion. Neck supple. No JVD present. No spinous process tenderness present. No carotid bruit present. No rigidity. No tracheal deviation and normal range of motion present. No Brudzinski's sign and no Kernig's sign noted. CV: Normal rate, regular rhythm, normal heart sounds and intact distal pulses. There is no peripheral edema. Palpable radial pulses bue. PULM/CHEST: Effort normal and breath sounds normal. No respiratory distress. No stridor. She has no wheezes. She has no rales. -Chest Wall: She exhibits no tenderness. ABD: The abdomen is soft. Bowel sounds are normal. She has no distension. No mass is present. There is tenderness to palpation of the suprapubic and left lower quadrant areas. There is no rebound, no guarding, no Head's sign and no tenderness at McBurney's point. Rovsig negative MUSC/SKEL: Normal range of motion. There is no peripheral edema, tenderness or deformity. LYMPH: No cervical adenopathy. NEURO: She is alert and oriented to person, place, and time. She has normal strength. No cranial nerve deficit or sensory deficit. Coordination and gait normal. GCS eye subscore is 4. GCS verbal subscore is 5. GCS motor subscore is 6. Cerebellar tests wnl. SKIN: Skin is warm and dry. She is not diaphoretic. PSYCH: She has a normal mood and affect. Behavior is normal. Judgment and thought content normal. Course Course 1451: The patient was evaluated in room C2. A complete history and physical exam was performed Cardiac monitoring: An order was placed for continuous cardiac monitoring. The monitor shows a rate of 70 with sinus rhythm 1700: Vital signs stable. Labs are baseline with creatinine at baseline. CT of the abdomen was conducted given the patient's symptoms and was conducted without contrast given the patient's kidney function and concern for kidney stone versus diverticulitis. CT of the abdomen showed diverticulitis and possible abscess formation. In the body of the dictation it states that there is an interval development of focal area of gas collection in the distal aspect of the sigmoid colon which may represent an abscess formation. I discussed this with general surgery on-call Nydia Gavin PA-C on-call for Dr. Rojo who states she will be down to evaluate the patient but recommends patient be admitted to the hospitalist team. Zosyn ordered for the patient. Patient will be admitted to [facility] hospitalist Dr. Carter Administered Medications Discontinued Medications Piperacillin Sod/Tazobactam Sod (Zosyn) 4.5 gm in 120 mls @ 240 mls/hr IV NOW ONE Stop: 05/20/21 16:59 Last Admin: 05/20/21 16:50 Dose: 240 mls/hr Documented by: [id number] Ondansetron HCl (Ondansetron Inj 2 Mg/Ml 2 Ml Vial) 4 mg IV NOW STA Stop: 05/20/21 14:53 Last Admin: 05/20/21 15:25 Dose: 4 mg Documented by: [id number] Medical Decision Making Laboratory Data Result diagrams: 05/20/21 15:03 05/20/21 15:03 Lab Results 05/20/21 05/20/21 05/20/21 Range/Units 15:03 15:03 15:03 WBC 11.51 H (4.8-10.8) K/uL RBC 3.61 L (4.2-5.4) M/uL Hgb 10.9 L (12.0-16.0) g/dL Hct 33.8 L (37-47) % MCV 93.6 (80-100) fL MCH 30.2 (25-34) pg MCHC 32.2 (32-36) g/dL RDW Std Deviation 50.9 H (36.4-46.3) fL RDW Coeff of Noemy 14.9 H (11.5-14.5) % Plt Count 318 (130-400) K/uL MPV 9.5 (7.4-10.4) fL Immature Gran % (Auto) 0.2 % Neut % (Auto) 76.5 % Lymph % (Auto) 10.4 % [place] % (Auto) 11.9 % Eos % (Auto) 0.9 % Baso % (Auto) 0.1 % Neut # (Auto) 8.81 H (1.4-6.5) K/uL Lymph # (Auto) 1.20 (1.2-3.4) K/uL [place] # (Auto) 1.37 H (0.11-0.59) K/uL Eos # (Auto) 0.10 (0-0.5) K/uL Baso # (Auto) 0.01 (0-0.2) K/uL Immature Gran # (Auto) 0.02 (0.00-0.02) K/uL Sodium 137 (136-145) mmol/L Potassium 3.6 (3.5-5.1) mmol/L Chloride 104 (98-107) mmol/L Carbon Dioxide 28 (21-32) mmol/L Anion Gap 5.0 (3-11) BUN 43 H (7-18) mg/dl Creatinine 2.27 H (0.6-1.2) mg/dl Est Cr Clr Drug Dosing Not Reportable Est GFR ( Amer) 21.9 ml/min Est GFR (Non-Af Amer) 18.9 ml/min BUN/Creatinine Ratio 19.1 (10-20) Glucose 77 (70-99) mg/dl Calcium 9.9 (8.5-10.1) mg/dl Total Bilirubin 1.3 H (0.2-1) mg/dl Direct Bilirubin 0.3 H (0-0.2) mg/dl AST 14 L (15-37) U/L ALT 14 (12-78) U/L Alkaline Phosphatase 65 (45-117) U/L Total Protein 7.3 (6.4-8.2) gm/dl Albumin 3.9 (3.4-5.0) gm/dl Lipase 115 (73-393) U/L Urine Color Yellow Urine Appearance Clear (Clear) Urine pH 6.5 (4.5-7.5) Ur Specific [place] 1.007 (1.000-1.030) Urine Protein Negative (Negative) Urine Glucose (UA) Negative (Negative) Urine Ketones Negative (Negative) Urine Blood Negative (Negative) Urine Nitrite Negative (Negative) Urine Bilirubin Negative (Negative) Urine Urobilinogen Negative (Negative) Ur Leukocyte Esterase Trace H (Negative) Urine WBC (Auto) 5-10 H (0-5) /hpf Urine RBC (Auto) 0-4 (0-4) /hpf U Hyaline Cast (Auto) 1-5 (0-5) /lpf U Epithel Cells (Auto) 20-30 H (0-5) /lpf Urine Bacteria (Auto) Negative (Negative) COVID-19 Eval Order 05/20/21 Range/Units 16:40 WBC (4.8-10.8) K/uL RBC (4.2-5.4) M/uL Hgb (12.0-16.0) g/dL Hct (37-47) % MCV (80-100) fL MCH (25-34) pg MCHC (32-36) g/dL RDW Std Deviation (36.4-46.3) fL RDW Coeff of Noemy (11.5-14.5) % Plt Count (130-400) K/uL MPV (7.4-10.4) fL Immature Gran % (Auto) % Neut % (Auto) % Lymph % (Auto) % [place] % (Auto) % Eos % (Auto) % Baso % (Auto) % Neut # (Auto) (1.4-6.5) K/uL Lymph # (Auto) (1.2-3.4) K/uL [place] # (Auto) (0.11-0.59) K/uL Eos # (Auto) (0-0.5) K/uL Baso # (Auto) (0-0.2) K/uL Immature Gran # (Auto) (0.00-0.02) K/uL Sodium (136-145) mmol/L Potassium (3.5-5.1) mmol/L Chloride (98-107) mmol/L Carbon Dioxide (21-32) mmol/L Anion Gap (3-11) BUN (7-18) mg/dl Creatinine (0.6-1.2) mg/dl Est Cr Clr Drug Dosing Est GFR ( Amer) ml/min Est GFR (Non-Af Amer) ml/min BUN/Creatinine Ratio (10-20) Glucose (70-99) mg/dl Calcium (8.5-10.1) mg/dl Total Bilirubin (0.2-1) mg/dl Direct Bilirubin (0-0.2) mg/dl AST (15-37) U/L ALT (12-78) U/L Alkaline Phosphatase (45-117) U/L Total Protein (6.4-8.2) gm/dl Albumin (3.4-5.0) gm/dl Lipase (73-393) U/L Urine Color Urine Appearance (Clear) Urine pH (4.5-7.5) Ur Specific [place] (1.000-1.030) Urine Protein (Negative) Urine Glucose (UA) (Negative) Urine Ketones (Negative) Urine Blood (Negative) Urine Nitrite (Negative) Urine Bilirubin (Negative) Urine Urobilinogen (Negative) Ur Leukocyte Esterase (Negative) Urine WBC (Auto) (0-5) /hpf Urine RBC (Auto) (0-4) /hpf U Hyaline Cast (Auto) (0-5) /lpf U Epithel Cells (Auto) (0-5) /lpf Urine Bacteria (Auto) (Negative) COVID-19 Eval Order Covid19 at [facility] Imaging Data Radiologist's Impression: Abdomen/Pelvis CT 05/20/21 14:53 CT SCAN OF THE ABDOMEN AND PELVIS WITHOUT CONTRAST CLINICAL HISTORY: LLQ pain COMPARISON STUDY: April 29, 2021 TECHNIQUE: CT scan of the abdomen and pelvis was performed from the lung bases to the proximal femurs. Images are reviewed in the axial, sagittal, and coronal planes. IV contrast was not administered for this examination. A dose lowering technique was utilized adhering to the principles of ALARA. CT DOSE: 984.18 mGycm FINDINGS: Lower chest: Redemonstration of mild atelectasis at dependent portions of bilateral lower lobes. Liver: The unenhanced liver is normal in size, contour, and attenuation. There is no intrahepatic biliary ductal dilatation. Redemonstration of 1.3 cm hypoattenuating lesion within left lobe of the liver which is stable since prior study. Gallbladder: Is surgically absent. Spleen: Normal in size and attenuation. Pancreas: Unremarkable. Adrenal glands: Right adrenal gland is unremarkable. Redemonstration of the 2.0 cm hypoattenuating nodule within left adrenal gland which might represent angiomyolipoma. Kidneys: No evidence of hydronephrosis. Bilateral renal cortical atrophy is again seen. No evidence of nephrolithiasis. Multiple small lesions within right renal cortex which is unchanged since recent prior study performed 3 weeks ago. Stable soft tissue lesion is seen within left renal pelvis. Bowel: Bowel loops are nondilated. Appendix is not well seen. Diverticulosis of sigmoid colon seen with interval development of surrounding inflammatory changes representing acute diverticulitis. Interval development of focal area of gas collection at the distal aspect of the sigmoid colon might represent abscess formation (3/328). Peritoneum: There is no intraperitoneal free air or abdominal ascites. Vasculature: Abdominal aorta is nondilated. Heavy concentric calcifications within its distal aspect might represent aortic stenosis. Adenopathy: None. Pelvic viscera: Fluid-filled urinary bladder. Uterus is surgically absent. Skeletal structures: Mild diffuse osteopenia and degenerative changes of the spine. IMPRESSION: 1. Diverticulosis of sigmoid colon with interval development of acute diverticulitis and possible abscess formation. Evaluation is limited due to lack of IV contrast. Report will be sent to emergency Department. 2. Atelectasis within bilateral lower lobes. 3. Stable atrophy of bilateral kidneys, right renal lesions/cysts and left renal mass. 4. 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 5. The rest of findings as above. ACT 112: Negative or not required by law. The above report was generated using voice recognition software. It may contain grammatical, syntax or spelling errors. Electronically signed by: Mellisa Mills DO 05/20/2021 4:19 PM MDM Narrative Vital signs stable. Labs are baseline with creatinine at baseline. CT of the abdomen was conducted given the patient's symptoms and was conducted without contrast given the patient's kidney function and concern for kidney stone versus diverticulitis. CT of the abdomen showed diverticulitis and possible abscess formation. In the body of the dictation it states that there is an interval development of focal area of gas collection in the distal aspect of the sigmoid colon which may represent an abscess formation. I discussed this with general surgery on-call Nydia Gavin PA-C on-call for Dr. Rojo who states she will be down to evaluate the patient but recommends patient be admitted to the hospitalist team. Fausto ordered for the patient. Patient will be admitted to [facility] hospitalist Dr. Carter Impression & Plan Diverticulitis of intestine with abscess Discharge Plan Visit Data Chief Complaint: Urinary Symptoms Stated Complaint: uti, dr ref ED Provider: Chris Turpin Discharge Problem: Diverticulitis of intestine with abscess Patient Disposition: Admitted As Inpatient Forms Stand Alone Forms: [facility] [employer] Prescriptions Prescriptions: No Action ergocalciferol (vitamin D2) 1,250 mcg (50,000 unit) capsule 50,000 unit PO MONTHLY RF: 0 lidocaine [Salonpas (lidocaine)] 4 % Adhesive Patch,Medicated 1 patch TOPICAL QAM RF: 0 aspirin 81 mg Tablet,Delayed Release (Dr/Ec) 81 mg PO QAM RF: 0 isosorbide dinitrate 20 mg tablet 20 mg PO TID RF: 0 rosuvastatin 10 mg tablet 10 mg PO QPM RF: 0 acetaminophen [Tylenol Extra Strength] 500 mg Tablet 1,000 mg PO AMPM RF: 0 carvedilol 12.5 mg tablet 18.75 mg PO BID RF: 0 famotidine [Pepcid] 20 mg Tablet 20 mg PO QPM@1700 RF: 0 ondansetron 4 mg tablet,disintegrating 4 mg PO Q6H PRN (Reason: nausea and vomiting) Qty: 14 RF: 0 furosemide 40 mg tablet 20 mg PO QPM@1700 RF: 0 hydralazine 25 mg tablet 25 mg PO TID RF: 0 folic acid 1 mg tablet 1 mg PO QAM RF: 0 hydralazine 50 mg tablet 50 mg PO TID RF: 0 furosemide 40 mg tablet 40 mg PO QAM RF: 0 sennosides-docusate sodium [Senna with Docusate Sodium] 8.6-50 mg tablet 1 tab-cap PO QPM RF: 0 Humulin 70/30 U-100 Insulin 100 unit/mL (70-30) suspension 65 - 75 unit subcut BID RF: 0 allopurinol 100 mg tablet 200 mg PO DAILY@1200 RF: 0 diclofenac sodium 1 % gel 4 g TOP QID PRN (Reason: Pain) RF: 0 cyanocobalamin (vitamin B-12) 500 mcg Tablet 500 mcg PO QAM Qty: 30 RF: 0 Referrals Referrals: Fox Ramirez MD [Primary Care Provider] - Discharge Problem: Diverticulitis of intestine with abscess Qualifiers: Diverticulitis site: unspecified part of intestinal tract Diverticulitis bleeding: without bleeding Qualified Code(s): K57.80 - Diverticulitis of intestine, part unspecified, with perforation and abscess without bleeding
[2021-05-20] MEDS ORDERED: DEXTROSE 50% 50 ML SYRINGE IV PRN (19:48)
[2021-05-20] MEDS ORDERED: MoRPHine SULFATE 4 MG/ML 1 ML CARP\\VIAL IV PRN (19:48)
[2021-05-20] MEDS ORDERED: CARBOHYDRATES FOR HYPOGLYCEMIA PO PRN (19:48)
[2021-05-20] MEDS ORDERED: GLUCAGON FOR INJ 1 MG VIAL SQ PRN (19:48)
[2021-05-20] MEDS ORDERED: GLUCOSE 10 TABS/TUBE PO PRN (19:48)
[2021-05-20] MEDS ORDERED: DICLOFENAC SOD 1% GEL 100 GM TUBE EXT PRN (19:48)
[2021-05-20] MEDS ORDERED: GLUCOSE 40% GEL 15 GM TUBE PO PRN (19:48)
[2021-05-20] MEDS ORDERED: ALUMINUM/MAGNESIUM SUSP 30 ML UDC PO PRN (19:48)
[2021-05-20] MEDS ORDERED: PIPERACILL/TAZOBAC CONSULT ACTIVE PRN (19:48)
[2021-05-20] MEDS ORDERED: PATIENT'S HEIGHT AND/OR WEIGHT NEEDED SCH (20:15)
[2021-05-20] MEDS ORDERED: PHARMACY GLYCEMIC MGMT CONSULT SCH (20:15)
[2021-05-20] MEDS ORDERED: INSULIN HUMAN NPH SC SCH (21:00)
[2021-05-20] MEDS: ACETAMINOPHEN 325 MG TAB PO PRN (21:13)
[2021-05-20] MEDS: ISOSORBIDE DINITRATE 20 MG TAB PO SCH (21:14)
[2021-05-20] MEDS: FAMOTIDINE 20 MG TAB PO SCH (21:14)
[2021-05-20] MEDS: carvediloL 6.25 MG TAB PO SCH (21:15)
[2021-05-20] MEDS: DOCUSATE SODIUM/SENNA 50/8.6MG TAB PO SCH (21:15)
[2021-05-20] MEDS: hydrALAZINE TAB 50 MG TAB PO SCH (21:15)
[2021-05-20] MEDS: hydrALAZINE HCL 25 MG TAB PO SCH (21:15)
[2021-05-20] MEDS: ROSUVASTATIN CALCIUM 10 MG TAB PO SCH (21:16)
[2021-05-20] MEDS: HEPARIN SOD 5,000 UNIT/0.5 ML VIAL SQ SCH (21:26)
[2021-05-20] MEDS: PIPERACILLIN/TAZOBACTAM 3.375 GM in DEXTROSE 5% 100 ML IV SCH (21:27)
[2021-05-21] MEDS: PIPERACILLIN/TAZOBACTAM 3.375 GM in DEXTROSE 5% 100 ML IV SCH ×3 (05:50→22:07)
[2021-05-21] MEDS: HEPARIN SOD 5,000 UNIT/0.5 ML VIAL SQ SCH ×3 (05:51→22:23)
[2021-05-21 08:22] LABS: Basophils # (auto) 0.02 K/uL (0-0.2); Basophils % (auto) 0.2 %; Eosinophils # (auto) 0.11 K/uL (0-0.5); Eosinophils % (auto) 1.1 %; Hematocrit (blood only) 29.8 % (37-47); Hemoglobin 9.5 g/dL (12.0-16.0); Immature Granulocytes # (auto) 0.03 K/uL (0.00-0.02); Immature Granulocytes % (auto) 0.3 %; Lymphocytes # (auto) 0.92 K/uL (1.2-3.4); Lymphocytes % (auto) 9.5 %; Mean Corpuscular Hemoglobin 29.8 pg (25-34); Mean Corpuscular Hgb Conc 31.9 g/dL (32-36); Mean Corpuscular Volume 93.4 fL (80-100); Mean Platelet Volume 9.3 fL (7.4-10.4); Monocytes # (auto) 1.09 K/uL (0.11-0.59); Monocytes % (auto) 11.3 %; Neutrophils # (auto) 7.47 K/uL (1.4-6.5); Neutrophils % (auto) 77.6 %; Platelet Count 267 K/uL (130-400); RDW Standard Deviation 51.4 fL (36.4-46.3); Red Blood Count 3.19 M/uL (4.2-5.4); White Blood Count 9.64 K/uL (4.8-10.8)
[2021-05-21] MEDS: ASPIRIN 81 MG ECTAB PO SCH (08:31)
[2021-05-21] MEDS: ISOSORBIDE DINITRATE 20 MG TAB PO SCH ×3 (08:32→17:37)
[2021-05-21] MEDS: INSULIN ASPART 100 UNITS/ML 3 ML PEN SC SCH ×4 (08:35→20:57)
[2021-05-21] MEDS: carvediloL 6.25 MG TAB PO SCH ×2 (08:36→20:04)
[2021-05-21] MEDS: hydrALAZINE HCL 25 MG TAB PO SCH ×3 (08:36→20:05)
[2021-05-21] MEDS: CYANOCOBALAMIN 500 MCG TABLET (VITAMIN B-12) PO SCH (08:37)
[2021-05-21] MEDS: FOLIC ACID 1 MG TAB PO SCH (08:37)
[2021-05-21] MEDS: hydrALAZINE TAB 50 MG TAB PO SCH ×3 (08:38→20:06)
[2021-05-21] MEDS: LIDOCAINE 5% 1 PATCH TD SCH (08:38)
[2021-05-21 08:59] LABS: Albumin Level 3.3 gm/dl (3.4-5.0); BUN Creatinine Ratio 17.6 (10-20); Calcium 9.1 mg/dl (8.5-10.1); Creatinine Clr Calc Pharmacy 20.1 ml/min; Est GFR (African American) 21.2 ml/min; Est GFR (Non-African American) 18.3 ml/min; Potassium 3.3 mmol/L (3.5-5.1)
[2021-05-21 09:02] LABS: Albumin Globulin Ratio 1.1 (0.9-2); Bilirubin,Total 1.4 mg/dl (0.2-1); Globulin 2.9 gm/dl (2.5-4.0); Total Protein 6.2 gm/dl (6.4-8.2)
[2021-05-21] MEDS ORDERED: INSULIN GLARGINE SOLOSTAR 100 UNITS/ML 3 ML PEN SC ONE (09:15)
[2021-05-21] MEDS: ACETAMINOPHEN 325 MG TAB PO PRN ×2 (09:55→19:57)
[2021-05-21] MEDS: POTASSIUM CHLORIDE CRTAB 20 MEQ TABCR PO STA ×2 (09:56→10:43)
--- NOTE | 2021-05-21 09:56 | Hospitalist Progress Note ---
Date of Service May 21, 2021 Assessment & Plan (1) Diverticulitis of intestine with abscess: Plan: 85 yo F with PMH of constipation, UTI, DM, HTN, secondary hyperparathyroidism, osteopenia, kidney cyst, congestive heart failure, hypertensive urgency, left bundle branch block, CKD 4, obesity, heartburn came in 05/20 w/ left lower quadrant pain for the last 2-3 days progressively getting worse. 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 Diverticulitis of large intestine with abscess Admitting WBC 11.51 K, nicely coming down, Hb stable around 9-10. 05/20 CTAP: s/o diverticulosis of sigmoid w/ acute diverticulitis and possible abscess formation. Surgery consulted: conservative Mx for now c/w NPO, iv ATB and IVF will get CBC and BMP tomorrow AM Reassess tomorrow for clear liq diet and transition of iv to po ATB. #. Anemia iron profile s/o JONELLE; B12 and folate WNL Will replace with FeSO4 once able to take PO #. DM Mx per Glycemic pharmacy on sliding scale; under goal #. HTN / CAD BP elevated since admission c/w home coreg will resume her home lasix c/w daily BMP #. CKD stage 4 Her BUN and Cr at baseline will repeat BMP tomorrow Admission and Anticipated Discharge Date Admission Date: May 20, 2021 Subjective Patient was lying down in bed, NAD, on RA. Patient denies Headache, Dizziness, Fever, Chills, Sore throat, Cough, Chest pain, palpitations, SOB, burning while passing urine. Last Bowel movement [today AM] x3, non diarrheal. No issues overnight. Feels better than yesterday. Physical Exam Physical Exam: GENERAL: Alert and oriented x3. NAD, on RA. HEENT: No pallor, no icterus. Pupils equal, round and reactive to light. Oral mucosa moist. NECK: No JVD, no neck masses. HEART: S1 and S2 heard. Regular rate and rhythm. No murmur, no gallop. RESPIRATORY SYSTEM: Normal AP diameter. No accessory muscle use. No wheezing, no crackles. ABDOMEN: Soft, bowel sounds present, minimal LLQ tenderness, no distention. CENTRAL NERVOUS SYSTEM: Alert and oriented x3. No facial droop. Speech is clear. Obeys simple commands. Moves extremities. EXTREMITIES: trace edema, no erythema seen. Results & Data Results & Data ([facility]) Vital Signs (Past 12 Hours) Vital Signs Temp Pulse Pulse Resp BP Pulse Ox 05/21/21 07:35 70 05/21/21 07:00 36.6 C 71 20 132/57 L 95 05/21/21 03:00 36.9 C 76 20 129/63 98 05/20/21 23:38 74 05/20/21 23:00 36.9 C 74 20 131/56 L 95 (1) Diverticulitis of intestine with abscess Diverticulitis bleeding: without bleeding Diverticulitis site: unspecified part of intestinal tract Qualified Code(s): K57.80 - Diverticulitis of intestine, part unspecified, with perforation and abscess without bleeding
[2021-05-21] MEDS ORDERED: POTASSIUM CHLORIDE 20 MEQ/15 ML UDC PO ONE (10:45)
[2021-05-21 11:28] LABS: Ferritin 133.4 ng/ml (8-388)
[2021-05-21] MEDS: ONDANSETRON INJ 2 MG/ML 2 ML VIAL IV PRN ×2 (11:30→17:35)
[2021-05-21] MEDS: allopurinoL 100 MG TAB PO SCH (11:33)
[2021-05-21 11:58] LABS: Folate (Folic Acid) > 20.00 ng/ml (>5.38); Vitamin B12 773 pg/ml (193-986)
--- NOTE | 2021-05-21 12:11 | Surgery Progress Note ---
Date of Service May 21, 2021 Assessment & Plan (1) Diverticulitis of large intestine with abscess: Plan: -Doing better -Continue NPO today, could trial clears later -IV ABX can be switched to PO tomorrow if she continues to improve -Will follow Admission and Anticipated Discharge Date Admission Date: May 20, 2021 Subjective Pt seen and examined. Afebrile. Abdominal pain improved. NO N/V. Review of Systems Constitutional: no fever and no chills Physical Exam Constitutional: WD/WN, vitals as above Gastrointestinal (Abdomen): Inspection/Auscultation: + abdominal surgical scar; abdomen not distended Percussion/Palpation: + abdomen tender (LLQ and suprapubic) and abdomen soft; no guarding and abdomen not rigid Results & Data ([facility]) Vital Signs (Past 12 Hours) Vital Signs Temp Pulse Pulse Resp BP Pulse Ox 05/21/21 07:35 70 05/21/21 07:00 36.6 C 71 20 132/57 L 95 05/21/21 03:00 36.9 C 76 20 129/63 98 PG Care Time/CCT Total # of Minutes Spent Total Time Spent with Patient: Total time spent is greater than 50% in coordination of care (as documented) at patient's floor/unit and/or counseling patient: Coding Level of Care Code 51421 Subseq Hosp Care Lvl 1 Diagnoses Diverticulitis of large intestine with abscess K57.20
--- NOTE | 2021-05-21 14:05 | Pharmacy Report ---
Pharmacy Glycemic Short Note 2 - Date of Service May 21, 2021 - Glycemic Short BSG Results (Last 24 hours): 05/20/21 05/20/21 05/21/21 15:03 20:48 07:58 Glucose 77 158 H POC Glucose 131 H 05/21/21 05/21/21 08:30 11:46 Glucose POC Glucose 175 H 183 H OUTPATIENT ANTIDIABETIC REGIMEN: * Humulin 70/30 * 65-75 units SC BID * HbA1c: 7.3% (03/25/21) ASSESSMENT: * is a 85 year old female admitted on 05/20/21 with acute diverticulitis of large intestine * Surgery is consulted and currently recommending conservative measures with IV antibiotics and NPO * Patient administered 65 units of Humulin 70/30 yesterday prior to admission * No other insulin given yesterday while inpatient * Patient previously admitted in February of this year and fasting BSGs reasonably well controlled with only 10 units of Lantus PLAN FOR INPATIENT GLYCEMIC CONTROL: * Basal insulin * Lantus 15 units SC x 1 this morning * Lantus scale 0-15 units SC x 1 HS (see EHR for details) * Bolus insulin * NovoLog per scale q4h while NPO * Goal Range: Low 110 mg/dL - High 140 mg/dL * Correction Factor: 25 mg/dL/unit * Nutritional / Prandial insulin per carb ratio of 1 unit per 8 grams CHO consumed PLAN FOR DISCHARGE: * HbA1c of 7.3% is reasonable for patient based on age and comorbidities * Reasonable to continue home regimen upon discharge, provided patient is not experiencing hypoglycemia as an outpatient
[2021-05-21] MEDS: FAMOTIDINE 20 MG TAB PO SCH (17:37)
[2021-05-21] MEDS: DOCUSATE SODIUM/SENNA 50/8.6MG TAB PO SCH (20:05)
[2021-05-21] MEDS: ROSUVASTATIN CALCIUM 10 MG TAB PO SCH (20:06)
[2021-05-21] MEDS ORDERED: INSULIN GLARGINE SOLOSTAR 100 UNITS/ML 3 ML PEN SC SCH (21:00)
[2021-05-21] MEDS ORDERED: INSULIN ASPART 100 UNITS/ML 3 ML PEN SC SCH (21:00)
[2021-05-22] MEDS: INSULIN ASPART 100 UNITS/ML 3 ML PEN SC SCH ×7 (00:09→20:40)
[2021-05-22] MEDS: PIPERACILLIN/TAZOBACTAM 3.375 GM in DEXTROSE 5% 100 ML IV SCH ×3 (05:47→22:06)
[2021-05-22] MEDS: HEPARIN SOD 5,000 UNIT/0.5 ML VIAL SQ SCH ×3 (05:48→22:06)
[2021-05-22] MEDS: ACETAMINOPHEN 325 MG TAB PO PRN ×2 (05:57→17:46)
[2021-05-22] MEDS: ISOSORBIDE DINITRATE 20 MG TAB PO SCH ×3 (06:04→17:42)
[2021-05-22 06:46] LABS: Hematocrit (blood only) 30.3 % (37-47); Hemoglobin 9.8 g/dL (12.0-16.0); Mean Corpuscular Hemoglobin 30.2 pg (25-34); Mean Corpuscular Hgb Conc 32.3 g/dL (32-36); Mean Corpuscular Volume 93.5 fL (80-100); Mean Platelet Volume 9.5 fL (7.4-10.4); Platelet Count 301 K/uL (130-400); RDW Coefficient of Variation 14.9 % (11.5-14.5); RDW Standard Deviation 51.2 fL (36.4-46.3); Red Blood Count 3.24 M/uL (4.2-5.4); White Blood Count 13.05 K/uL (4.8-10.8)
[2021-05-22 07:46] LABS: BUN Creatinine Ratio 15.9 (10-20); Calcium 9.7 mg/dl (8.5-10.1); Creatinine Clr Calc Pharmacy 19.8 ml/min; Est GFR (African American) 20.8 ml/min; Potassium 3.4 mmol/L (3.5-5.1)
[2021-05-22] MEDS: SODIUM CHLORIDE 0.9% 1000ML 1,000 ML IV SCH ×2 (07:47→20:29)
[2021-05-22] MEDS ORDERED: POTASSIUM CHLORIDE 20 MEQ/15 ML UDC PO ONE (08:30)
[2021-05-22] MEDS: carvediloL 6.25 MG TAB PO SCH ×2 (08:54→20:36)
[2021-05-22] MEDS: hydrALAZINE HCL 25 MG TAB PO SCH ×3 (08:54→20:38)
[2021-05-22] MEDS: hydrALAZINE TAB 50 MG TAB PO SCH ×3 (08:54→20:38)
[2021-05-22] MEDS: FOLIC ACID 1 MG TAB PO SCH (08:54)
[2021-05-22] MEDS: FUROSEMIDE 40 MG TAB PO SCH (08:55)
[2021-05-22] MEDS: ASPIRIN 81 MG ECTAB PO SCH (08:55)
[2021-05-22] MEDS: LIDOCAINE 5% 1 PATCH TD SCH (08:55)
[2021-05-22] MEDS: CYANOCOBALAMIN 500 MCG TABLET (VITAMIN B-12) PO SCH (08:55)
[2021-05-22] MEDS: allopurinoL 100 MG TAB PO SCH (12:35)
--- NOTE | 2021-05-22 12:52 | Pharmacy Report ---
Pharmacy Glycemic Short Note 2 - Date of Service May 22, 2021 - Glycemic Short BSG Results (Last 24 hours): 05/21/21 05/21/21 05/21/21 16:34 20:41 23:56 Glucose POC Glucose 145 H 138 H 132 H 05/22/21 05/22/21 05/22/21 03:42 06:07 07:58 Glucose 115 H POC Glucose 125 H 139 H 05/22/21 11:33 Glucose POC Glucose 166 H OUTPATIENT ANTIDIABETIC REGIMEN: * Humulin 70/30 * 65-75 units SC BID * HbA1c: 7.3% (03/25/21) ASSESSMENT: 05/22/21 * BSGs yesterday were [phone] mg/dL. Fasting this morning was 115 mg/dL. * Since patient continues NPO, await BSG recovery to ensure BSGs not trending down further. * With lunch BSG of 166 mg/dL, BSGs have shown recovery. * Give 25% less Lantus today so give Lantus 15 units x 1. * Q4 checks Background * JR is a 85 year old female admitted on 05/20/21 with acute diverticulitis of large intestine * Surgery is consulted and currently recommending conservative measures with IV antibiotics and NPO * Patient administered 65 units of Humulin 70/30 yesterday prior to admission * No other insulin given yesterday while inpatient * Patient previously admitted in February of this year and fasting BSGs reasonably well controlled with only 10 units of Lantus PLAN FOR INPATIENT GLYCEMIC CONTROL: * Basal insulin * Lantus 15 units SC x 1 this morning the reassess * Bolus insulin * NovoLog per scale q4h while NPO * Goal Range: Low 110 mg/dL - High 140 mg/dL * Correction Factor: 25 mg/dL/unit * Nutritional / Prandial insulin per carb ratio of 1 unit per 8 grams CHO consumed PLAN FOR DISCHARGE: * HbA1c of 7.3% is reasonable for patient based on age and comorbidities * Reasonable to continue home regimen upon discharge, provided patient is not ex periencing hypoglycemia as an outpatient
--- NOTE | 2021-05-22 13:36 | Surgery Progress Note ---
Date of Service May 22, 2021 Assessment & Plan (1) Diverticulitis of intestine with abscess: Plan: begin clears con't IV abx WBC elevated at 13; con't to track Admission and Anticipated Discharge Date Admission Date: May 20, 2021 Subjective feels better pain improved passing liquid stool Review of Systems Constitutional: no fever and no chills Respiratory: no dyspnea Cardiovascular: no chest pain Gastrointestinal: + abdominal pain (better); no nausea and no vomiting Genitourinary: no dysuria Musculoskeletal: no back pain Integumentary: no rash Physical Exam Constitutional: well developed and well nourished; no acute distress Eyes: PERRL Neck: trachea midline Respiratory: normal respiratory effort, lungs clear to auscultation Cardiovascular: RRR, no murmur, no edema Gastrointestinal (Abdomen): Inspection/Auscultation: normal bowel sounds; abdomen not distended Percussion/Palpation: + abdomen tender and abdomen soft; no guarding and abdomen not rigid Musculoskeletal: Head/Neck/Chest: normocephalic and head atraumatic Skin: no rashes, warm and dry Psychiatric: Orientation: alert and oriented x 3 Results & Data ([facility]) Vital Signs (Past 12 Hours) Vital Signs Temp Pulse Pulse Resp BP Pulse Ox 05/22/21 11:00 36.6 C 69 18 138/72 93 05/22/21 08:32 36.6 C 74 20 125/64 91 05/22/21 08:00 36.5 C 75 18 127/60 92 05/22/21 06:03 141/60 H 05/22/21 04:00 36.9 C 80 18 152/65 H 99 (1) Diverticulitis of intestine with abscess Diverticulitis bleeding: without bleeding Diverticulitis site: unspecified part of intestinal tract Qualified Code(s): K57.80 - Diverticulitis of intestine, part unspecified, with perforation and abscess without bleeding
--- NOTE | 2021-05-22 15:39 | Hospitalist Progress Note ---
Date of Service May 22, 2021 Assessment & Plan (1) Diverticulitis of intestine with abscess: Plan: 85 yo F with PMH of constipation, UTI, DM, HTN, secondary hyperparathyroidism, osteopenia, kidney cyst, congestive heart failure, hypertensive urgency, left bundle branch block, CKD 4, obesity, heartburn came in 05/20 w/ left lower quadrant pain for the last 2-3 days progressively getting worse. 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 Diverticulitis of large intestine with abscess Admitting WBC 11.51 K, nicely coming down, Hb stable around 9-10. 05/20 CTAP: s/o diverticulosis of sigmoid w/ acute diverticulitis and possible abscess formation. Surgery consulted: conservative Mx for now, started on clear liquid diet c/w iv ATB and IVF, will cut down the iv fluid if she is eating ok by tomorrow am will get CBC and BMP tomorrow AM Reassess tomorrow for advancement of diet and transition of iv to po ATB. #. Anemia iron profile s/o JONELLE; B12 and folate WNL Will replace with FeSO4 once she starts to tolerate diet. #. DM Mx per Glycemic pharmacy on sliding scale; under goal #. HTN / CAD BP elevated at admission, under control now c/w home coreg will resume her home lasix c/w daily BMP #. CKD stage 4 Her BUN and Cr at baseline will repeat BMP tomorrow Admission and Anticipated Discharge Date Admission Date: May 20, 2021 Subjective Patient was lying down in bed, NAD, on RA. Patient denies Headache, Dizziness, Fever, Chills, Sore throat, Cough, Chest pain, palpitations, SOB, burning while passing urine. She has had multiple bowel movements x small volume each time yesterday and today morning, liquid consistency. States her lower belly pain is slightly improved compared to yesterday. Physical Exam Physical Exam: GENERAL: Alert and oriented x3. NAD, on RA. HEENT: No pallor, no icterus. Pupils equal, round and reactive to light. Oral mucosa moist. NECK: No JVD, no neck masses. HEART: S1 and S2 heard. Regular rate and rhythm. No murmur, no gallop. RESPIRATORY SYSTEM: Normal AP diameter. No accessory muscle use. No wheezing, no crackles. ABDOMEN: Soft, bowel sounds present, minimal LLQ tenderness, no distention. CENTRAL NERVOUS SYSTEM: Alert and oriented x3. No facial droop. Speech is clear. Obeys simple commands. Moves extremities. EXTREMITIES: trace edema, no erythema seen. Results & Data Results & Data ([facility]) Vital Signs (Past 12 Hours) Vital Signs Temp Pulse Pulse Resp BP Pulse Ox 05/22/21 11:00 36.6 C 69 18 138/72 93 05/22/21 08:32 36.6 C 74 20 125/64 91 05/22/21 08:00 36.5 C 75 18 127/60 92 05/22/21 06:03 141/60 H 05/22/21 04:00 36.9 C 80 18 152/65 H 99 (1) Diverticulitis of intestine with abscess Diverticulitis bleeding: without bleeding Diverticulitis site: unspecified part of intestinal tract Qualified Code(s): K57.80 - Diverticulitis of intestine, part unspecified, with perforation and abscess without bleeding
[2021-05-22] MEDS: FUROSEMIDE 20 MG TAB PO SCH (17:38)
[2021-05-22] MEDS: FAMOTIDINE 20 MG TAB PO SCH (17:39)
[2021-05-22] MEDS: ROSUVASTATIN CALCIUM 10 MG TAB PO SCH (20:36)
[2021-05-23] MEDS ORDERED: INSULIN ASPART 100 UNITS/ML 3 ML PEN SC SCH
--- NOTE | 2021-05-23 01:22 | Communication Note ---
Date of Service: May 23, 2021
[2021-05-23] MEDS: PIPERACILLIN/TAZOBACTAM 3.375 GM in DEXTROSE 5% 100 ML IV SCH ×3 (06:27→22:27)
[2021-05-23] MEDS: ISOSORBIDE DINITRATE 20 MG TAB PO SCH ×3 (06:49→17:23)
[2021-05-23 07:39] LABS: Hematocrit (blood only) 30.7 % (37-47); Hemoglobin 9.8 g/dL (12.0-16.0); Mean Corpuscular Hemoglobin 30.2 pg (25-34); Mean Corpuscular Hgb Conc 31.9 g/dL (32-36); Mean Corpuscular Volume 94.8 fL (80-100); Mean Platelet Volume 9.5 fL (7.4-10.4); Platelet Count 304 K/uL (130-400); RDW Coefficient of Variation 14.9 % (11.5-14.5); RDW Standard Deviation 51.7 fL (36.4-46.3); Red Blood Count 3.24 M/uL (4.2-5.4); White Blood Count 7.18 K/uL (4.8-10.8)
[2021-05-23 08:12] LABS: BUN Creatinine Ratio 13.5 (10-20); Calcium 9.4 mg/dl (8.5-10.1); Creatinine Clr Calc Pharmacy 21.4 ml/min; Est GFR (African American) 22.8 ml/min; Est GFR (Non-African American) 19.6 ml/min; Potassium 3.6 mmol/L (3.5-5.1)
[2021-05-23] MEDS: hydrALAZINE HCL 25 MG TAB PO SCH ×3 (08:28→20:39)
[2021-05-23] MEDS: FUROSEMIDE 40 MG TAB PO SCH (08:28)
[2021-05-23] MEDS: FOLIC ACID 1 MG TAB PO SCH (08:29)
[2021-05-23] MEDS: ASPIRIN 81 MG ECTAB PO SCH (08:29)
[2021-05-23] MEDS: CYANOCOBALAMIN 500 MCG TABLET (VITAMIN B-12) PO SCH (08:29)
[2021-05-23] MEDS: carvediloL 6.25 MG TAB PO SCH ×2 (08:29→20:37)
[2021-05-23] MEDS: INSULIN ASPART 100 UNITS/ML 3 ML PEN SC SCH ×4 (08:30→22:01)
[2021-05-23] MEDS: LIDOCAINE 5% 1 PATCH TD SCH (08:32)
[2021-05-23] MEDS: hydrALAZINE TAB 50 MG TAB PO SCH ×3 (08:32→20:39)
[2021-05-23] MEDS ORDERED: INSULIN GLARGINE SOLOSTAR 100 UNITS/ML 3 ML PEN SC SCH (09:00)
[2021-05-23] MEDS: lisinopril 5 MG TAB PO SCH (09:48)
--- NOTE | 2021-05-23 11:17 | Pharmacy Report ---
Pharmacy Glycemic Short Note 2 - Date of Service May 23, 2021 - Glycemic Short BSG Results (Last 24 hours): 05/22/21 05/22/21 05/22/21 11:33 15:51 16:36 Glucose POC Glucose 166 H 224 H 225 H 05/22/21 05/22/21 05/23/21 20:26 23:55 05:19 Glucose POC Glucose 203 H 137 H 130 H 05/23/21 05/23/21 06:52 07:34 Glucose 133 H POC Glucose 146 H OUTPATIENT ANTIDIABETIC REGIMEN: * Humulin 70/30 * 65-75 units SC BID * HbA1c: 7.3% (03/25/21) ASSESSMENT: 05/23/21 * BSGs yesterday were [phone]. Fasting today was 146 mg/dL. * Patient now has diet ordered. * Continue Lantus 15 units for now. Scale for tomorrow if BSGs trend further upwards. * Novolog tightened yesterday. Continue weight-based stress of 3. 05/22/21 * BSGs yesterday were [phone] mg/dL. Fasting this morning was 115 mg/dL. * Since patient continues NPO, await BSG recovery to ensure BSGs not trending down further. * With lunch BSG of 166 mg/dL, BSGs have shown recovery. * Give 25% less Lantus today so give Lantus 15 units x 1. * Q4 checks Background * is a 85 year old female admitted on 05/20/21 with acute diverticulitis of large intestine * Surgery is consulted and currently recommending conservative measures with IV antibiotics and NPO * Patient administered 65 units of Humulin 70/30 yesterday prior to admission * No other insulin given yesterday while inpatient * Patient previously admitted in February of this year and fasting BSGs reasonably well controlled with only 10 units of Lantus PLAN FOR INPATIENT GLYCEMIC CONTROL: * Basal insulin * Lantus 15 units SC daily (20 units if BSG > 140 mg/dL) * Bolus insulin * NovoLog per scale q4h while NPO * Goal Range: Low 110 mg/dL - High 140 mg/dL * Correction Factor: 20 mg/dL/unit * Nutritional / Prandial insulin per carb ratio of 1 unit per 6 grams CHO consumed PLAN FOR DISCHARGE: * HbA1c of 7.3% is reasonable for patient based on age and comorbidities * Reasonable to continue home regimen upon discharge, provided patient is not experiencing hypoglycemia as an outpatient
[2021-05-23] MEDS ORDERED: INSULIN GLARGINE SOLOSTAR 100 UNITS/ML 3 ML PEN SC ONE (12:00)
[2021-05-23] MEDS: allopurinoL 100 MG TAB PO SCH (12:45)
--- NOTE | 2021-05-23 13:18 | Surgery Progress Note ---
Date of Service May 23, 2021 Assessment & Plan (1) Diverticulitis of intestine with abscess: Plan: advance diet switch abx to po soon good progress Admission and Anticipated Discharge Date Admission Date: May 20, 2021 Subjective feels good pain improved doing well Review of Systems Constitutional: no fever and no chills Respiratory: no cough and no dyspnea Cardiovascular: no chest pain Gastrointestinal: + abdominal pain; no nausea and no vomiting Genitourinary: no dysuria Physical Exam Constitutional: well nourished, + acute distress and + obese Neck: trachea midline Respiratory: normal respiratory effort, lungs clear to auscultation Cardiovascular: RRR, no murmur, no edema Gastrointestinal (Abdomen): Inspection/Auscultation: abdomen normal to inspection and normal bowel sounds; abdomen not distended Percussion/Palpation: + abdomen tender and abdomen soft; no guarding Skin: no rashes, warm and dry Psychiatric: Orientation: alert and oriented x 3 Results & Data ([facility]) Vital Signs (Past 12 Hours) Vital Signs Temp Pulse Pulse Pulse Resp BP Pulse Ox 05/23/21 12:38 36.5 C 16 L 70 168/74 H 94 05/23/21 11:00 05/23/21 08:19 36.6 C 75 20 177/76 H 90 05/23/21 07:55 73 05/23/21 02:49 37 C 79 17 160/62 H 95 Pulse Ox 05/23/21 12:38 05/23/21 11:00 90 05/23/21 08:19 05/23/21 07:55 05/23/21 02:49 (1) Diverticulitis of intestine with abscess Diverticulitis bleeding: without bleeding Diverticulitis site: unspecified part of intestinal tract Qualified Code(s): K57.80 - Diverticulitis of intestine, part unspecified, with perforation and abscess without bleeding
[2021-05-23] MEDS: HEPARIN SOD 5,000 UNIT/0.5 ML VIAL SQ SCH ×2 (13:54→22:26)
--- NOTE | 2021-05-23 14:26 | Hospitalist Progress Note ---
Date of Service May 23, 2021 Assessment & Plan (1) Diverticulitis of intestine with abscess: Plan: 85 yo F with PMH of constipation, UTI, DM, HTN, secondary hyperparathyroidism, osteopenia, kidney cyst, congestive heart failure, hypertensive urgency, left bundle branch block, CKD 4, obesity, heartburn came in 05/20 w/ left lower quadrant pain for the last 2-3 days progressively getting worse. 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 Diverticulitis of large intestine with abscess Admitting WBC 11.51 K, nicely coming down, Hb stable around 9-10. 05/20 CTAP: s/o diverticulosis of sigmoid w/ acute diverticulitis and possible abscess formation. Surgery consulted: conservative Mx for now, advanced the diet to full liq c/w iv ATB and stopped IVF since she is tolerating food well. Reports improvement in belly pain. will get CBC tomorrow AM Reassess tomorrow for advancement of diet and possible transition of iv to po AT B. #. Anemia iron profile s/o JONELLE (transferrin sat and serum iron low); B12 and folate WNL FOBT negative c/w FeSO4 daily. #. DM Mx per Glycemic pharmacy on sliding scale; under goal #. HTN / CAD BP elevated at admission, elevated not as well to SBP 160s to 170s c/w home coreg will resume her home lasix Pt told not to use lisinopril will use iv labetalol as needed for systolic >160-170mmHg. c/w daily BMP #. CKD stage 4 Her BUN and Cr at baseline f/u with BMP ron AM Disposition: PT/OT recs - return home with family support when stable. Admission and Anticipated Discharge Date Admission Date: May 20, 2021 Subjective Patient was lying down in bed, NAD, on RA. Patient denies Headache, Dizziness, Fever, Chills, Sore throat, Cough, Chest pain, palpitations, SOB, burning while passing urine. She had two bowel movements today AM, liquid consistency dark colored. Her Hb has been stable around 9.8 to 10. States her lower belly pain is improved compared to yesterday. Physical Exam Physical Exam: GENERAL: Alert and oriented x3. NAD, on RA. HEENT: No pallor, no icterus. Pupils equal, round and reactive to light. Oral mucosa moist. NECK: No JVD, no neck masses. HEART: S1 and S2 heard. Regular rate and rhythm. No murmur, no gallop. RESPIRATORY SYSTEM: Normal AP diameter. No accessory muscle use. No wheezing, no crackles. ABDOMEN: Soft, bowel sounds present, LLQ tenderness lot better, no distention. CENTRAL NERVOUS SYSTEM: Alert and oriented x3. No facial droop. Speech is clear. Obeys simple commands. Moves extremities. EXTREMITIES: trace edema, no erythema seen. Results & Data Results & Data ([facility]) Vital Signs (Past 12 Hours) Vital Signs Temp Pulse Pulse Pulse Resp BP Pulse Ox 05/23/21 12:38 36.5 C 16 L 70 168/74 H 94 05/23/21 11:00 05/23/21 08:19 36.6 C 75 20 177/76 H 90 05/23/21 07:55 73 05/23/21 02:49 37 C 79 17 160/62 H 95 Pulse Ox 05/23/21 12:38 05/23/21 11:00 90 05/23/21 08:19 05/23/21 07:55 05/23/21 02:49 (1) Diverticulitis of intestine with abscess Diverticulitis bleeding: without bleeding Diverticulitis site: unspecified part of intestinal tract Qualified Code(s): K57.80 - Diverticulitis of intestine, part unspecified, with perforation and abscess without bleeding
[2021-05-23] MEDS: ACETAMINOPHEN 325 MG TAB PO PRN ×2 (15:18→23:13)
[2021-05-23] MEDS: FERROUS SULFATE 325 MG TAB PO SCH (15:40)
[2021-05-23] MEDS: FUROSEMIDE 20 MG TAB PO SCH (17:23)
[2021-05-23] MEDS: FAMOTIDINE 20 MG TAB PO SCH (17:24)
[2021-05-23] MEDS: LABETALOL HCL IV 5 MG/ML 20ML IV PRN (17:25)
[2021-05-23] MEDS: ROSUVASTATIN CALCIUM 10 MG TAB PO SCH (20:40)
[2021-05-24] MEDS: HEPARIN SOD 5,000 UNIT/0.5 ML VIAL SQ SCH ×3 (05:53→22:56)
[2021-05-24] MEDS: PIPERACILLIN/TAZOBACTAM 3.375 GM in DEXTROSE 5% 100 ML IV SCH (05:55)
[2021-05-24] MEDS: LABETALOL HCL IV 5 MG/ML 20ML IV PRN (06:00)
[2021-05-24] MEDS: ISOSORBIDE DINITRATE 20 MG TAB PO SCH ×3 (06:12→16:08)
[2021-05-24] MEDS: LIDOCAINE 5% 1 PATCH TD SCH (07:40)
[2021-05-24] MEDS: hydrALAZINE TAB 50 MG TAB PO SCH ×3 (07:41→16:08)
[2021-05-24] MEDS: FUROSEMIDE 40 MG TAB PO SCH (07:41)
[2021-05-24] MEDS: CYANOCOBALAMIN 500 MCG TABLET (VITAMIN B-12) PO SCH (07:41)
[2021-05-24] MEDS: FOLIC ACID 1 MG TAB PO SCH (07:41)
[2021-05-24] MEDS: hydrALAZINE HCL 25 MG TAB PO SCH ×2 (07:41→14:54)
[2021-05-24] MEDS: ASPIRIN 81 MG ECTAB PO SCH (07:41)
[2021-05-24] MEDS: FERROUS SULFATE 325 MG TAB PO SCH (07:41)
[2021-05-24] MEDS: carvediloL 6.25 MG TAB PO SCH (07:41)
[2021-05-24] MEDS: lisinopril 5 MG TAB PO SCH (07:41)
[2021-05-24 07:49] LABS: Hematocrit (blood only) 30.3 % (37-47); Hemoglobin 9.6 g/dL (12.0-16.0); Mean Corpuscular Hemoglobin 29.4 pg (25-34); Mean Corpuscular Hgb Conc 31.7 g/dL (32-36); Mean Corpuscular Volume 92.9 fL (80-100); Mean Platelet Volume 9.2 fL (7.4-10.4); Platelet Count 294 K/uL (130-400); RDW Coefficient of Variation 14.7 % (11.5-14.5); RDW Standard Deviation 50.2 fL (36.4-46.3); Red Blood Count 3.26 M/uL (4.2-5.4); White Blood Count 6.74 K/uL (4.8-10.8)
[2021-05-24 08:23] LABS: Calcium 9.2 mg/dl (8.5-10.1); Creatinine Clr Calc Pharmacy 20.9 ml/min; Est GFR (African American) 23.7 ml/min; Est GFR (Non-African American) 20.4 ml/min; Potassium 3.3 mmol/L (3.5-5.1)
[2021-05-24] MEDS: INSULIN ASPART 100 UNITS/ML 3 ML PEN SC SCH ×4 (08:48→20:53)
[2021-05-24] MEDS ORDERED: INSULIN GLARGINE SOLOSTAR 100 UNITS/ML 3 ML PEN SC SCH (09:00)
--- NOTE | 2021-05-24 10:24 | Surgery Progress Note ---
Date of Service May 24, 2021 Assessment & Plan (1) Diverticulitis of intestine with abscess: Plan: Patient clinically doing well WBC 6.7, patient afebrile Abdominal pain improved. She is having + bowel function Will trial advancing diet as tolerates to low fiber today Seems like she is staying in house today for HTN management, but will need to transition to PO abx to complete course at home for diverticulitis Admission and Anticipated Discharge Date Admission Date: May 20, 2021 Supervising Physician Co-Signing Physician Notes I personally saw and evaluated the patient with Nydia Martinez PA-C and agree with the assessment and plan 85 yo female with acute diverticulitis -Low fiber diet -Needs 14 day course of ABX upon discharge -Ok to d/c home today if tolerates diet -Would recommend colonoscopy in 6-8 weeks to r/o malignancy Subjective Patient says she is feeling alright. A little more tired this AM. From an abdominal standpoint she reports her pain is improved. She is passing some BM's/flatus. Says the full liquids are not very appetizing and is hoping for more to try. Says she is staying another night for BP control. Physical Exam Physical Exam: awake/alert Gastrointestinal (Abdomen): Inspection/Auscultation: abdomen not distended Percussion/Palpation: abdomen soft; abdomen nontender Results & Data ([facility]) Vital Signs (Past 12 Hours) Vital Signs Temp Pulse Resp BP Pulse Ox 05/24/21 08:18 36.6 C 68 18 186/78 H 97 05/24/21 05:56 173/71 H 05/24/21 02:52 36.4 C L 72 18 152/66 H 98 05/23/21 23:17 36.5 C 73 18 156/70 H 97 PG Care Time/CCT Total # of Minutes Spent Total Time Spent with Patient: Total time spent is greater than 50% in co ordination of care (as documented) at patient's floor/unit and/or counseling patient: Coding Level of Care Code 36799 Subseq Hosp Care Lvl 1 Diagnoses Diverticulitis of intestine with abscess K57.80 Diverticulitis bleeding: without bleeding Diverticulitis site: unspecified part of intestinal tract (1) Diverticulitis of intestine with abscess Diverticulitis bleeding: without bleeding Diverticulitis site: unspecified part of intestinal tract Qualified Code(s): K57.80 - Diverticulitis of intestine, part unspecified, with perforation and abscess without bleeding
[2021-05-24] MEDS: allopurinoL 100 MG TAB PO SCH (11:55)
--- NOTE | 2021-05-24 14:33 | Cardiology Consultation ---
Date of Consultation May 24, 2021 Assessment & Plan (1) Hypertension: Patient is a complex 85-year-old female with ongoing issues outlined above. Currently admitted with acute diverticulitis with marked lability in blood pressure since admission. Patient anxious and concerned and in pain likely driving blood pressure is higher. She did miss an outpatient cardiology point which is extremely concerning to her. She has difficult to manage blood pressures with WENDY inhibitor discontinued earlier this year due to worsening renal insufficiency. Past treatment with calcium channel blockers resulted in marked edema, increase in beta- ada/carvedilol poorly tolerated in the past. Plan: We will increase hydralazine while in hospital, trial increase in carvedilol slightly but expect blood pressures to improve on discharge. We will follow with you Outpatient cardiology appointment being arranged. (2) Hypertensive urgency: (3) Diverticulitis of intestine with abscess: (4) CKD (chronic kidney disease): History of Present Illness Reason for Consultation: Hypertension Requesting Physician: Dr. Newman Attending Physician: Ama Newman MD History of Present Illness Patient is a complex 85-year-old female with longstanding labile hypertension underlying medical problems which include 1. Hypertension, hypertensive heart disease 2. Diastolic heart failure 3. Preserved LV systolic function 4. Angiographically normal coronaries by April 1999 cardiac catheterization 5. Palpitations - premature atrial/ventricular beats. 6. Intermittent left bundle branch block 7. Type II diabetes mellitus 8. Stage IV chronic kidney disease, followed by Dr. Childress 9. Nocturnal hypoxemia, treated with supplemental oxygen therapy at 2 liters/minute via nasal cannula through Dr. Armstrong 10. Dyslipidemia 11. GERD. Reflux. History of hiatal hernia. 12. Anxiety Patient presents this admission with ongoing complaints of abdominal pain and discomfort with evidence of diverticulitis with possible abscess. She has been begun on IV antibiotic therapies with improved abdominal complaints however persistent hypertension noted during hospitalization. Patient is referred now for further evaluation. No acute changes in medications from hypertension standpoint prior to hospitalization. Lisinopril was discontinued earlier this year due to concerns regarding worsening renal insufficiency. She denies fevers chills. Abdominal pain improving but chronic knee and back pain remains persistent. No headache or visual changes. No neurologic complaints. Taking usual medications at home with good tolerance. No signs of fluid retention or edema per patient patient complains of chronic fatigue Blood pressures have been elevated intermittently since admission. She notes occasional elevated blood pressures at home especially at times of pain and stress. Patient concerned regarding missing cardiology appointment while in hospital Patient received additional dose of labetalol this morning Allergies Allergy/AdvReac Type Severity Reaction Status Date / Time No Known Allergies Allergy Verified 05/20/21 15:26 Home Medications Medication Instructions Recorded Confirmed Type acetaminophen 500 mg tablet 1,000 mg PO AMPM 12/30/18 05/20/21 History (Tylenol Extra Strength) aspirin 81 mg tablet,delayed 81 mg PO QAM 12/30/18 05/20/21 History release isosorbide dinitrate 20 mg tablet 20 mg PO TID 12/30/18 05/20/21 History rosuvastatin 10 mg tablet 10 mg PO QPM 12/30/18 05/20/21 History famotidine 20 mg tablet (Pepcid) 20 mg PO QPM@1700 11/18/19 05/20/21 History carvedilol 12.5 mg tablet 18.75 mg PO BID tab 05/11/20 05/20/21 History ergocalciferol (vitamin D2) 1,250 50,000 unit PO MONTHLY 06/23/20 05/20/21 History mcg (50,000 unit) capsule lidocaine 4 % topical patch 1 patch TOPICAL QAM 06/23/20 05/20/21 History (Salonpas (lidocaine)) insulin human U-100 NPH-regulr 65 - 75 unit SUBCUT BID 03/16/21 05/20/21 History 70-30 mix 100 unit/mL subcutaneous susp (Humulin 70/30 U-100 Insulin) allopurinol 100 mg tablet 200 mg PO DAILY@1200 03/17/21 05/20/21 History diclofenac sodium 1 % topical gel 4 g TOP QID PRN 03/17/21 05/20/21 History cyanocobalamin (vitamin B-12) 500 500 mcg PO QAM #30 tab 03/27/21 05/20/21 Rx mcg tablet ondansetron 4 mg disintegrating 4 mg PO Q6H PRN #14 tab 03/29/21 05/20/21 Rx tablet folic acid 1 mg tablet 1 mg PO QAM 04/29/21 05/20/21 History furosemide 40 mg tablet 20 mg PO QPM@1700 04/29/21 05/20/21 History furosemide 40 mg tablet 40 mg PO QAM 04/29/21 05/20/21 History hydralazine 25 mg tablet 25 mg PO TID 04/29/21 05/20/21 History hydralazine 50 mg tablet 50 mg PO TID 04/29/21 05/20/21 History sennosides 8.6 mg-docusate sodium 1 tab-cap PO QPM 04/29/21 05/20/21 History 50 mg tablet (Senna with Docusate Sodium) Patient History Medical History Abdominal pain, LLQ Acute abdominal pain in left flank CHF (congestive heart failure) Chronic back pain Chronic kidney disease (CKD), stage IV (severe) Diabetes mellitus, type 2 Diverticulitis large intestine Hearing deficit History of kidney stones HTN (hypertension) HTN (hypertension) Hyperlipidemia Kidney cysts LEFT SIDE>BEING MONITORED BY UROLOGY [facility] Morbid obesity with BMI of 40.0-44.9, adult Nocturnal hypoxemia On home oxygen therapy 2L N/C at HS only Osteoarthritis Spinal stenosis Weakness Surgical History H/O: hysterectomy History of arthroscopy of left knee History of bilateral tubal ligation History of cardiac [place] [facility] [place] History of colonoscopy History of cystoscopy History of dilatation and curettage History of esophagogastroduodenoscopy (EGD) History of tooth extraction all teeth Hx of appendectomy Hx of cholecystectomy Nausea and vomiting after administration of anesthetic agent Family History Sister Family history of diabetes mellitus Sister Family history of diabetes mellitus Brother Family history of diabetes mellitus Family history of esophageal cancer Brother Family history of esophageal cancer Father Lung cancer Other No family history of adverse response to anesthesia No significant family history Social History Smoking Status: Never smoker Second Hand Exposure: No; Hx Alcohol Use: No Hx Substance Use: No Preferred Language: [place] Islander Communication Ability: Effective Database Consultant Required: No Beliefs That Will Affect Care: None marital status: / Current Living Situation: Family Current Living Situation Comment: WITH SON Other Information That Helps Us Care for You: No Feels Safe at Home: Yes Assistive Devices: Cane and Oxygen - at Night Review of Systems Review of Systems: All systems reviewed & are unremarkable except as noted in HPI & below Physical Exam Constitutional: WD/WN, vitals as above + obese; no acute distress Eyes: PERRL, conjunctivae normal, anicteric sclerae ENMT: external ear and nose normal, oropharynx normal Neck: trachea midline, no thyromegaly Respiratory: normal respiratory effort, lungs clear to auscultation Cardiovascular: Rate/Rhythm: regular rate and regular rhythm Heart Sounds: normal S1 and normal S2; no gallop and no murmur Palpation: normal PMI Vessels: normal carotid upstroke and radial pulses present; no JVD and no carotid bruit Extremities: no edema Gastrointestinal (Abdomen): Percussion/Palpation: + abdomen tender (Mild) Musculoskeletal: no cyanosis or clubbing, extremities motor strength 5/5 Skin: no rashes, warm and dry Neurologic: PERRL, EOMI, accommodation nl, no face palsy, no dysarthria Psychiatric: A+Ox3, euthymic affect Results & Data ([facility]) Vital Signs (Past 12 Hours) Vital Signs Temp Pulse Resp BP Pulse Ox 05/24/21 11:51 36.7 C 66 18 157/73 H 94 05/24/21 08:18 36.6 C 68 18 186/78 H 97 05/24/21 05:56 173/71 H 05/24/21 02:52 36.4 C L 72 18 152/66 H 98 Laboratory Results Laboratory Results - last 24 hr 05/23/21 05/23/21 05/23/21 16:55 20:14 23:22 WBC RBC Hgb Hct MCV MCH MCHC RDW Std Deviation RDW Coeff of Noemy Plt Count MPV Sodium Potassium Chloride Carbon Dioxide Anion Gap BUN Creatinine Est Cr Clr Drug Dosing Est GFR ( Amer) Est GFR (Non-Af Amer) BUN/Creatinine Ratio Glucose POC Glucose 162 H 129 H 123 H Calcium Magnesium 05/24/21 05/24/21 05/24/21 04:18 07:22 07:22 WBC 6.74 RBC 3.26 L Hgb 9.6 L Hct 30.3 L MCV 92.9 MCH 29.4 MCHC 31.7 L RDW Std Deviation 50.2 H RDW Coeff of Noemy 14.7 H Plt Count 294 MPV 9.2 Sodium 141 Potassium 3.3 L Chloride 106 Carbon Dioxide 27 Anion Gap 7.0 BUN 24 H Creatinine 2.13 H Est Cr Clr Drug Dosing 20.9 Est GFR ( Amer) 23.7 Est GFR (Non-Af Amer) 20.4 BUN/Creatinine Ratio 11.0 Glucose 126 H POC Glucose 119 H Calcium 9.2 Magnesium 2.0 05/24/21 05/24/21 07:32 11:26 WBC RBC Hgb Hct MCV MCH MCHC RDW Std Deviation RDW Coeff of Noemy Plt Count MPV Sodium Potassium Chloride Carbon Dioxide Anion Gap BUN Creatinine Est Cr Clr Drug Dosing Est GFR ( Amer) Est GFR (Non-Af Amer) BUN/Creatinine Ratio Glucose POC Glucose 124 H 156 H Calcium Magnesium (1) Diverticulitis of intestine with abscess Diverticulitis bleeding: without bleeding Diverticulitis site: unspecified part of intestinal tract Qualified Code(s): K57.80 - Diverticulitis of intestine, part unspecified, with perforation and abscess without bleeding
[2021-05-24] MEDS ORDERED: POTASSIUM CHLORIDE CRTAB 20 MEQ TABCR PO STA (15:57)
--- NOTE | 2021-05-24 15:57 | Hospitalist Progress Note ---
Date of Service May 24, 2021 Assessment & Plan (1) Diverticulitis of intestine with abscess: Plan: 85 yo F with PMH of constipation, UTI, DM, HTN, secondary hyperparathyroidism, osteopenia, kidney cyst, congestive heart failure, hypertensive urgency, left bundle branch block, CKD 4, obesity, heartburn came in 05/20 w/ left lower quadrant pain for the last 2-3 days progressively getting worse. 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 Diverticulitis of large intestine with abscess Admitting WBC 11.51 K, nicely coming down, Hb stable around 9-10. 05/20 CTAP: s/o diverticulosis of sigmoid w/ acute diverticulitis and possible abscess formation. Surgery consulted: conservative Mx for now, advanced the diet to full liq c/w iv ATB and stopped IVF since she is tolerating food well. Reports improvement in belly pain. will get CBC tomorrow AM ATB: c/w with zosyn today. Stop after evening's dose (message communication placed). Start on oral cipro and flagyl from tomorrow AM). Pt and her daughter updated today and advised the need of GI/Gen Sx follow up in 4-6 weeks time for possible colonoscopy. #. Anemia iron profile s/o JONELLE (transferrin sat and serum iron low); B12 and folate WNL FOBT negative c/w FeSO4 daily. #. DM Mx per Glycemic pharmacy on sliding scale; under goal #. HTN / CAD BP elevated at admission, Per her Dtr. her SBP runs like 160s at home and sometimes 180s. BP meds adjusted a/c Cardio: hydralazine dose increased (75 TID to 100 BD + 75 PM, coreg dose increased (18.75 BD to 25 AM and 18.75 PM) Pt told not to use lisinopril d/t worseing kidney function will use iv labetalol as needed for systolic >160-170mmHg. c/w daily BMP #. CKD stage 4 Her BUN and Cr at baseline f/u with BMP ron AM Replaced Potassium Disposition: PT/OT recs - return home with family support when stable. Pt doesn't accept HH per Dtr. Number to call Dtr [phone] or [phone]. Admission and Anticipated Discharge Date Admission Date: May 20, 2021 Subjective Patient says she is feeling alright. A little more nauseous this AM; may be she didn't like the creamy item in her diet. From an abdominal standpoint she reports her pain is improved. She is passing some BM's/flatus. Will advance her diet. Wants to stay another night because she is not feeling well. Physical Exam Physical Exam: GENERAL: Alert and oriented x3. NAD, on RA. HEENT: No pallor, no icterus. Pupils equal, round and reactive to light. Oral mucosa moist. NECK: No JVD, no neck masses. HEART: S1 and S2 heard. Regular rate and rhythm. No murmur, no gallop. RESPIRATORY SYSTEM: Normal AP diameter. No accessory muscle use. No wheezing, no crackles. ABDOMEN: Soft, bowel sounds present, no LLQ tenderness, no distention. CENTRAL NERVOUS SYSTEM: Alert and oriented x3. No facial droop. Speech is clear. Obeys simple commands. Moves extremities. EXTREMITIES: trace edema, no erythema seen. Results & Data Results & Data ([facility]) Vital Signs (Past 12 Hours) Vital Signs Temp Pulse Resp BP Pulse Ox 05/24/21 11:51 36.7 C 66 18 157/73 H 94 05/24/21 08:18 36.6 C 68 18 186/78 H 97 05/24/21 05:56 173/71 H (1) Diverticulitis of intestine with abscess Diverticulitis bleeding: without bleeding Diverticulitis site: unspecified part of intestinal tract Qualified Code(s): K57.80 - Diverticulitis of intestine, part unspecified, with perforation and abscess without bleeding
[2021-05-24] MEDS: FUROSEMIDE 20 MG TAB PO SCH (16:08)
[2021-05-24] MEDS: FAMOTIDINE 20 MG TAB PO SCH (16:09)
[2021-05-24] MEDS ORDERED: POTASSIUM CHLORIDE 20 MEQ/15 ML UDC PO STA (16:24)
[2021-05-24] MEDS ORDERED: PIPERACILLIN/TAZOBACTAM 3.375 GM in DEXTROSE 5% 100 ML IV SCH (18:00)
[2021-05-24] MEDS: ONDANSETRON INJ 2 MG/ML 2 ML VIAL IV PRN (20:39)
[2021-05-24] MEDS: ACETAMINOPHEN 325 MG TAB PO PRN (20:48)
[2021-05-24] MEDS: ROSUVASTATIN CALCIUM 10 MG TAB PO SCH (20:51)
[2021-05-24] MEDS ORDERED: hydrALAZINE HCL 25 MG TAB PO SCH (21:00)
[2021-05-24] MEDS ORDERED: carvediloL 6.25 MG TAB PO SCH (21:00)
[2021-05-24] MEDS ORDERED: DOCUSATE SODIUM/SENNA 50/8.6MG TAB PO SCH (23:30)
[2021-05-25] MEDS: ACETAMINOPHEN 325 MG TAB PO PRN (06:25)
[2021-05-25] MEDS: metroNIDAZOLE 500 MG TAB PO SCH ×2 (06:26→13:51)
[2021-05-25] MEDS: HEPARIN SOD 5,000 UNIT/0.5 ML VIAL SQ SCH ×2 (06:28→13:49)
[2021-05-25] MEDS: ISOSORBIDE DINITRATE 20 MG TAB PO SCH ×2 (06:28→12:16)
[2021-05-25 06:32] LABS: Hematocrit (blood only) 29.2 % (37-47); Hemoglobin 9.4 g/dL (12.0-16.0); Mean Corpuscular Hemoglobin 29.7 pg (25-34); Mean Corpuscular Hgb Conc 32.2 g/dL (32-36); Mean Corpuscular Volume 92.4 fL (80-100); Mean Platelet Volume 9.1 fL (7.4-10.4); Platelet Count 271 K/uL (130-400); RDW Coefficient of Variation 14.7 % (11.5-14.5); RDW Standard Deviation 49.9 fL (36.4-46.3); Red Blood Count 3.16 M/uL (4.2-5.4); White Blood Count 6.76 K/uL (4.8-10.8)
[2021-05-25 06:59] LABS: BUN Creatinine Ratio 10.9 (10-20); Calcium 9.3 mg/dl (8.5-10.1); Creatinine Clr Calc Pharmacy 19.8 ml/min; Est GFR (African American) 22.2 ml/min; Est GFR (Non-African American) 19.1 ml/min; Potassium 3.5 mmol/L (3.5-5.1)
--- NOTE | 2021-05-25 08:08 | Surgery Progress Note ---
Date of Service May 25, 2021 Assessment & Plan (1) Diverticulitis of intestine with abscess: Plan: Patient doing okay this AM. Had some increased abdominal fullness and mild nausea yesterday evening, but feels better this AM and denies any abdominal complaints Patient is hungry for breakfast and looking forward to eating eggs WBC 6.7, afebrile. On exam abdomen is soft and non tender From our standpoint if pt does well with breakfast can be discharged to home [facility] plans to complete 14 days of abx Would recommend outpatient colonoscopy in 6-8 weeks if pt is willing Would remain on low fiber diet for the next couple weeks She may follow up with PCP and GI upon dispo Admission and Anticipated Discharge Date Admission Date: May 20, 2021 Subjective Patient says she is feeling okay this AM. She states our food is not how she prefers... too much sodium and not cooked how she normally does at home. She had an episode of increased fullness overnight after dinner that has resolved. This AM she denies abdominal pain/nausea/vomiting. Physical Exam Physical Exam: awake/alert Gastrointestinal (Abdomen): Inspection/Auscultation: abdomen not distended Percussion/Palpation: abdomen soft; abdomen nontender Results & Data ([facility]) Vital Signs (Past 12 Hours) Vital Signs Temp Pulse Pulse Pulse Resp BP Pulse Ox 05/25/21 07:33 36.5 C 65 18 134/65 94 05/25/21 07:26 70 05/25/21 03:04 36.6 C 66 18 147/70 H 99 05/24/21 22:58 36.6 C 84 18 160/68 H 96 05/24/21 22:19 75 05/24/21 20:45 70 171/72 H 99 PG Care Time/CCT Total # of Minutes Spent Total Time Spent with Patient: Total time spent is greater than 50% in coordination of care (as documented) at patient's floor/unit and/or counseling patient: Coding Level of Care Code 28973 Subseq Hosp Care Lvl 1 Diagnoses Diverticulitis of intestine with abscess K57.80 Diverticulitis bleeding: without bleeding Diverticulitis site: unspecified part of intestinal tract (1) Diverticulitis of intestine with abscess Diverticulitis bleeding: without bleeding Diverticulitis site: unspecified part of intestinal tract Qualified Code(s): K57.80 - Diverticulitis of intestine, part unspecified, with perforation and abscess without bleeding
[2021-05-25] MEDS: INSULIN ASPART 100 UNITS/ML 3 ML PEN SC SCH ×2 (08:27→12:16)
[2021-05-25] MEDS: ASPIRIN 81 MG ECTAB PO SCH (08:29)
[2021-05-25] MEDS: CYANOCOBALAMIN 500 MCG TABLET (VITAMIN B-12) PO SCH (08:30)
[2021-05-25] MEDS: hydrALAZINE TAB 50 MG TAB PO SCH ×2 (08:31→13:50)
[2021-05-25] MEDS: FOLIC ACID 1 MG TAB PO SCH (08:31)
[2021-05-25] MEDS: FERROUS SULFATE 325 MG TAB PO SCH (08:31)
[2021-05-25] MEDS: FUROSEMIDE 40 MG TAB PO SCH (08:31)
[2021-05-25] MEDS: LIDOCAINE 5% 1 PATCH TD SCH (08:32)
[2021-05-25] MEDS ORDERED: INSULIN GLARGINE SOLOSTAR 100 UNITS/ML 3 ML PEN SC SCH ×2 (09:00)
[2021-05-25] MEDS ORDERED: carvediloL 25 MG TAB PO SCH (09:00)
[2021-05-25] MEDS ORDERED: CIPROFLOXACIN 500 MG TAB PO SCH (09:00)
--- NOTE | 2021-05-25 09:19 | Pharmacy Report ---
Pharmacy Glycemic Short Note 2 - Date of Service May 25, 2021 - Glycemic Short BSG Results (Last 24 hours): 05/24/21 05/24/21 05/24/21 11:26 16:38 20:12 Glucose POC Glucose 156 H 139 H 188 H 05/24/21 05/25/21 05/25/21 23:35 06:07 07:30 Glucose 139 H POC Glucose 185 H 175 H OUTPATIENT ANTIDIABETIC REGIMEN: * Humulin 70/30 * 65-75 units SC BID * HbA1c: 7.3% (03/25/21) ASSESSMENT: 05/25/21 * Pt has received 51 units of insulin over the past 24hrs * 20 units of basal with Lantus * 31 units of bolus with NovoLog * BSGs [phone] mg/dl * BSGs in goal range in AM and tend to trend up throughout the day. Will tighten CHO coverage to combat post-prandial hyperglycemia * AM fasting BSG above goal range this morning at 175 mg/dl- will increase basal insulin slightly. 05/23/21 * BSGs yesterday were [phone]. Fasting today was 146 mg/dL. * Patient now has diet ordered. * Continue Lantus 15 units for now. Scale for tomorrow if BSGs trend further upwards. * Novolog tightened yesterday. Continue weight-based stress of 3. 05/22/21 * BSGs yesterday were [phone] mg/dL. Fasting this morning was 115 mg/dL. * Since patient continues NPO, await BSG recovery to ensure BSGs not trending down further. * With lunch BSG of 166 mg/dL, BSGs have shown recovery. * Give 25% less Lantus today so give Lantus 15 units x 1. * Q4 checks Background * JR is a 85 year old female admitted on 05/20/21 with acute diverticulitis of large intestine * Surgery is consulted and currently recommending conservative measures with IV antibiotics and NPO * Patient administered 65 units of Humulin 70/30 yesterday prior to admission * No other insulin given yesterday while inpatient * Patient previously admitted in February of this year and fasting BSGs reasonably well controlled with only 10 units of Lantus PLAN FOR INPATIENT GLYCEMIC CONTROL: * Basal insulin: increase Lantus from 20 to 25 units * Lantus 25 units SC daily * Bolus insulin: tighten CR * NovoLog per scale q4h while NPO * Goal Range: Low 110 mg/dL - High 140 mg/dL * Correction Factor: 20 mg/dL/unit * Nutritional / Prandial insulin per carb ratio of 1 unit per 5 grams CHO consumed PLAN FOR DISCHARGE: * HbA1c of 7.3% is reasonable for patient based on age and comorbidities * Reasonable to continue home regimen upon discharge, provided patient is not experiencing hypoglycemia as an outpatient
[2021-05-25] MEDS: allopurinoL 100 MG TAB PO SCH (12:16)
--- NOTE | 2021-05-25 13:04 | Cardiology Progress Note ---
Date of Service May 25, 2021 Assessment & Plan (1) Hypertension: Plan: Patient is a complex 85-year-old female with ongoing issues outlined above. Currently admitted with acute diverticulitis with marked lability in blood pressure since admission. Patient anxious and concerned and in pain likely driving blood pressure is higher. She did miss an outpatient cardiology point which is extremely concerning to her. She has difficult to manage blood pressures with WENDY inhibitor discontinued earlier this year due to worsening renal insufficiency. Past treatment with calcium channel blockers resulted in marked edema, increase in beta- ada/carvedilol poorly tolerated in the past. Plan: Discharge to home on current antihypertensive regimen prescribed in hospital. We will give an additional 20 mg of potassium today Outpatient appointment being arranged (2) Hypertensive urgency: (3) Diverticulitis of intestine with abscess: (4) CKD (chronic kidney disease): Admission and Anticipated Discharge Date Admission Date: May 20, 2021 Subjective Patient seen and examined, chart, medications, telemetry reviewed. Abdominal pain improved blood pressure trending toward slightly better control. No dizziness or lightheadedness no chest pains or shortness of breath. She anticipates discharge to home today Review of Systems Review of Systems: All systems reviewed & are unremarkable except as noted in Subjective Physical Exam Constitutional: WD/WN, vitals as above + obese; no acute distress Eyes: PERRL, conjunctivae normal, anicteric sclerae ENMT: external ear and nose normal, oropharynx normal Neck: trachea midline, no thyromegaly Respiratory: normal respiratory effort, lungs clear to auscultation Cardiovascular: Rate/Rhythm: regular rate and regular rhythm Heart Sounds: normal S1 and normal S2; no gallop and no murmur Palpation: normal PMI Vessels: normal carotid upstroke and radial pulses present; no JVD and no carotid bruit Extremities: no edema Gastrointestinal (Abdomen): normal bowel sounds, soft, nontender, no hepatosplenomegaly Musculoskeletal: no cyanosis or clubbing, extremities motor strength 5/5 Skin: no rashes, warm and dry Neurologic: PERRL, EOMI, accommodation nl, no face palsy, no dysarthria Psychiatric: A+Ox3, euthymic affect Results & Data ([facility]) Vital Signs (Past 12 Hours) Vital Signs Temp Pulse Pulse Pulse Resp BP Pulse Ox 05/25/21 12:00 36.5 C 76 18 168/79 H 93 05/25/21 07:33 36.5 C 65 18 134/65 94 05/25/21 07:26 70 05/25/21 03:04 36.6 C 66 18 147/70 H 99 Laboratory Results Laboratory Results - last 24 hr 05/24/21 05/24/21 05/24/21 16:38 20:12 23:35 WBC RBC Hgb Hct MCV MCH MCHC RDW Std Deviation RDW Coeff of Noemy Plt Count MPV Sodium Potassium Chloride Carbon Dioxide Anion Gap BUN Creatinine Est Cr Clr Drug Dosing Est GFR ( Amer) Est GFR (Non-Af Amer) BUN/Creatinine Ratio Glucose POC Glucose 139 H 188 H 185 H Calcium Magnesium 05/25/21 05/25/21 05/25/21 06:07 06:07 07:30 WBC 6.76 RBC 3.16 L Hgb 9.4 L Hct 29.2 L MCV 92.4 MCH 29.7 MCHC 32.2 RDW Std Deviation 49.9 H RDW Coeff of Noemy 14.7 H Plt Count 271 MPV 9.1 Sodium 140 Potassium 3.5 Chloride 107 Carbon Dioxide 28 Anion Gap 5.0 BUN 25 H Creatinine 2.25 H Est Cr Clr Drug Dosing 19.8 Est GFR ( Amer) 22.2 Est GFR (Non-Af Amer) 19.1 BUN/Creatinine Ratio 10.9 Glucose 139 H POC Glucose 175 H Calcium 9.3 Magnesium 2.0 05/25/21 11:45 WBC RBC Hgb Hct MCV MCH MCHC RDW Std Deviation RDW Coeff of Noemy Plt Count MPV Sodium Potassium Chloride Carbon Dioxide Anion Gap BUN Creatinine Est Cr Clr Drug Dosing Est GFR ( Amer) Est GFR (Non-Af Amer) BUN/Creatinine Ratio Glucose POC Glucose 185 H Calcium Magnesium (1) Diverticulitis of intestine with abscess Diverticulitis bleeding: without bleeding Diverticulitis site: unspecified part of intestinal tract Qualified Code(s): K57.80 - Diverticulitis of intestine, part unspecified, with perforation and abscess without bleeding
[2021-05-25] MEDS ORDERED: POTASSIUM CHLORIDE CRTAB 20 MEQ TABCR PO ONE (13:09)
--- NOTE | 2021-05-25 17:55 | Discharge Summary ---
Date of Service May 25, 2021 Admission HPI Per Admitting Provider 85-year-old female with a past medical history of urinary tract infections, diabetes, hypertension, vitamin D deficiency, secondary hyperparathyroidism, osteopenia, kidney cyst, congestive heart failure, hypertensive urgency, left bundle branch block, CKD 4, obesity, heartburn, hypertensive crisis, hypertensive heart disease with chronic kidney disease, renal neoplasm, chronic constipation, osteoarthritis, gout, and nocturnal hypoxemia who presents with left lower quadrant pain for the last 2 days getting progressively worse. She had a history of diverticulitis in the past and has a recurring episode today. She also complains of chills, but did not know her temperature. She says she cannot get warm. She said her appetite has been poor for the last 3 days. She is been trying to drink some fluids. She has been taking her medications. In the emergency room she was found to have diverticulitis with a possible abscess she was started on IV Zosyn and surgery was consulted. Of note she has a leukocytosis as well. Admission Exam Per Admitting Provider Gen-AAO x 3, NAD, Afebrile, Obese Head-NCAT, EOMI, PERRLA, Anicteric Sclera, No Posterior Pharyngeal Erythema Neck-Supple, No JVD, No Thyromegaly, No Masses, No LAD, No Bruits Lungs-Clear to Auscultation Bilaterally, No Rales, No Rhonchi, No Wheezing, No Crepitus Chest-No S4, +S1, +S2, No S3, No Murmurs, No Rubs, No Gallops, No Ectopy Abdomen-Soft, Bowel Sounds Present, Tender, Non Distended, No Hepatomegaly, No Splenomegaly, No Palpable Masses, No Rebound, No Rigidity, No Guarding Musculoskeletal-Full Range of Motion Bilaterally, No CVAT Extremities-No Cyanosis, No Clubbing, No Edema Nuero-Cranial Nerves II-XII grossly intact, Motor WNL, DTRs WNL, Strength WNL, Non Focal Psych-Normal Mood Principal Diagnosis Diverticulitis of large intestine with abscess Labile HTN Anemia Discharge Exam GENERAL: Alert and oriented x3. NAD, on RA. HEENT: No pallor, no icterus. Pupils equal, round and reactive to light. Oral mucosa moist. NECK: No JVD, no neck masses. HEART: S1 and S2 heard. Regular rate and rhythm. No murmur, no gallop. RESPIRATORY SYSTEM: Normal AP diameter. No accessory muscle use. No wheezing, no crackles. ABDOMEN: Soft, bowel sounds present, no LLQ tenderness, no distention. CENTRAL NERVOUS SYSTEM: Alert and oriented x3. No facial droop. Speech is clear. Obeys simple commands. Moves extremities. EXTREMITIES: trace edema, no erythema seen. Discharge Data Allergies Allergy/AdvReac Type Severity Reaction Status Date / Time No Known Allergies Allergy Verified 05/20/21 15:26 Consultations 05/20/21 16:58 Consult General Surgery Stat 05/20/21 17:14 ED Decision to Admit Stat 05/20/21 19:48 Consult General Surgery Routine 05/24/21 09:43 Consult Cardiology Routine Ordered Studies 05/20/21 14:53 CT abd pelvis wo con Stat Hospital Course (1) Diverticulitis of intestine with abscess: 85 yo F with PMH of constipation, UTI, DM, HTN, secondary hyperparathyroidism, osteopenia, kidney cyst, congestive heart failure, hypertensive urgency, left bundle branch block, CKD 4, obesity, heartburn came in 05/20 w/ left lower quadrant pain for the last 2-3 days progressively getting worse. 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 Diverticulitis of large intestine with abscess Admitting WBC 11.51 K, nicely came down, Hb stable around 9-10. 05/20 CTAP: s/o diverticulosis of sigmoid w/ acute diverticulitis and possible abscess formation. Surgery was consulted while inpatient who recommended conservatice Mx and f/u in 4-6 weeks for outpatient colonoscopy Initially treated with IV ATB and kept NPO, diet slowly advanced and with improvement transitioned to PO ATB - cipro and flagyl Will get total of 14 days of ATB Pt and her daughter updated today and advised the need of GI/Gen Sx follow up in 4-6 weeks time for possible colonoscopy. Also they were updated about the changes in her medicines - hydralazine and coreg. #. Anemia iron profile s/o JONELLE (transferrin sat and serum iron low); B12 and folate WNL FOBT negative c/w FeSO4 daily. #. DM Mx per Glycemic pharmacy on sliding scale; under goal #. HTN / CAD BP elevated at admission, Per her Dtr. her SBP runs like 160s at home and sometimes 180s. BP meds adjusted a/c Cardio: hydralazine dose increased (75 TID to 100 BD + 75 PM, coreg dose increased (18.75 BD to 25 AM and 18.75 PM) Pt told not to use lisinopril d/t worsening kidney function #. CKD stage 4 Her BUN and Cr at baseline Disposition: PT/OT recs - return home with family support when stable. Pt doesn't accept HH per Dtr. Number to call Dtr [phone] or [phone]. UPON Discharge following instructions were communicated to the patient: Take medications as instructed. Take Antibiotics for 10 more days. Follow up GI for outpatient colonoscopy in 6-8 weeks Remain on low fiber diet for next few weeks. Follow up with PCP and GI doctor within a week's time of discharge. Follow up with cardiology in 2-3 weeks of discharge. Your hydralazine has been upped to 100 mg for 0900 hours and 1400 hours dose, take same 75 mg in the night. Your coreg has been upped to 25 mg in the morning, take same 18.75 in the night. Total Time Total Time Spent Total Time Spent (In Minutes): 55 Discharge Plan Discharge Items Patient Disposition: Home - Self-Care Reason For Visit: DIVERTICULITIS C ABSCESS Discharge Diagnosis: Diverticulitis of large intestine with abscess Labile HTN Anemia Activity: Resume your previous activity Non-emergency contact: Primary Care Provider Call non-emergency contact if: you have any medication questions Follow-up/Referrals: Nilesh Rojo DO [Physician] - (You do not need to follow up in surgery clinic. You may call our office if you have any questions/concerns) Fox Ramirez MD [Primary Care Provider] - (Please make f/u appt with office in 7-10 days) Diet: Low Fiber Addtl Attending Provider Instructions: Call 911 and go to the Emergency Room if: * You have tightness or pain in your chest that does not go away with rest or Nitroglycerin * You are very short of breath even with rest Call your doctor if any of the following symptoms or problems start or get worse: * Shortness of breath or difficulty breathing * Wake up at night short of breath * Chest pain * Cough * Swelling of your hands, fee, or legs * More fatigued or tired with your normal activity * Palpitations - sudden fast heart beats WEIGHT * Weigh yourself every morning after using the bathroom. * Use the same scale. * Wear the same amount of clothing. * Write your weight down on your chart. * Call your doctor if you gain more than 2-3 pounds in 1-2 days. MEDICATIONS * Use this discharge instruction sheet for instructions. * Take your medications at the time your doctor ordered. * Do not skip a dose of your medicines. * If you miss a dose of medicine, take as soon as possible, but DO NOT DOUBLE A DOSE. * Read your medicine information when you get home. * Know all of the side effects of your medicine. * Call your doctor's office if you have any side effects. * Be sure all of your doctors know what medicine and herbs you take (including cold, flu, and herbal medicine). * Pain Medicine: If you do not get relief from your pain, please call your doctor for help. Take the following with you to your follow-up doctor appointments: * Weight Chart * Medication List * List of questions Do not drink excessive alcohol, beer or wine. Take medications as instructed. Take Antibiotics for 10 more days. Follow up GI for outpatient colonoscopy in 6-8 weeks Remain on low fiber diet for next few weeks. Follow up with PCP and GI doctor within a week's time of discharge. Follow up with cardiology in 2-3 weeks of discharge. Your hydralazine has been upped to 100 mg for 0900 hours and 1400 hours dose, take same 75 mg in the night. Your coreg has been upped to 25 mg in the morning, take same 18.75 in the night. Pending Studies at Discharge: No Stand-Alone Forms: My [facility], Smoking Cessation Medications and DC Order Prescriptions: New metronidazole 500 mg Tablet 500 mg PO Q8H 10 Days Qty: 30 RF: 0 ciprofloxacin HCl 500 mg Tablet 500 mg PO Q24H 10 Days Qty: 10 RF: 0 ferrous sulfate 325 mg (65 mg iron) Tablet,Delayed Release (Dr/Ec) 325 mg PO QAM 30 Days Qty: 30 RF: 0 carvedilol 25 mg Tablet 25 mg PO QAM 30 Days Qty: 30 RF: 0 carvedilol 6.25 mg Tablet 18.75 mg PO QPM 30 Days Qty: 90 RF: 0 hydralazine 25 mg Tablet 75 mg PO QPM 30 Days Qty: 90 RF: 0 hydralazine 50 mg Tablet 100 mg PO BID@0900,1400 30 Days Qty: 120 RF: 0 Continued ergocalciferol (vitamin D2) 1,250 mcg (50,000 unit) capsule 50,000 unit PO MONTHLY RF: 0 lidocaine [Salonpas (lidocaine)] 4 % Adhesive Patch,Medicated 1 patch TOPICAL QAM RF: 0 aspirin 81 mg Tablet,Delayed Release (Dr/Ec) 81 mg PO QAM RF: 0 isosorbide dinitrate 20 mg tablet 20 mg PO TID RF: 0 rosuvastatin 10 mg tablet 10 mg PO QPM RF: 0 acetaminophen [Tylenol Extra Strength] 500 mg Tablet 1,000 mg PO AMPM RF: 0 famotidine [Pepcid] 20 mg Tablet 20 mg PO QPM@1700 RF: 0 ondansetron 4 mg tablet,disintegrating 4 mg PO Q6H PRN (Reason: nausea and vomiting) Qty: 14 RF: 0 furosemide 40 mg tablet 20 mg PO QPM@1700 RF: 0 folic acid 1 mg tablet 1 mg PO QAM RF: 0 furosemide 40 mg tablet 40 mg PO QAM RF: 0 sennosides-docusate sodium [Senna with Docusate Sodium] 8.6-50 mg tablet 1 tab-cap PO QPM RF: 0 Humulin 70/30 U-100 Insulin 100 unit/mL (70-30) suspension 65 - 75 unit subcut BID RF: 0 allopurinol 100 mg tablet 200 mg PO DAILY@1200 RF: 0 diclofenac sodium 1 % gel 4 g TOP QID PRN (Reason: Pain) RF: 0 cyanocobalamin (vitamin B-12) 500 mcg Tablet 500 mcg PO QAM Qty: 30 RF: 0 Discontinued carvedilol 12.5 mg tablet 18.75 mg PO BID RF: 0 hydralazine 25 mg tablet 25 mg PO TID RF: 0 hydralazine 50 mg tablet 50 mg PO TID RF: 0 Discharge Orders: Discharge Order (Routine); Ordered 05/25/21 Ordered By: Ama Newman Admission Data Admit Date/Time: 05/20/21 16:58 Attending Provider: Ama Newman Admit Provider: Mike Watt Primary Care Provider: Fox Ramirez Other Providers: Nilesh Rojo ; Mike Watt ; Clovis Walton ; Kaushal Gaspar ; Lou Damon ; Petrona Rodriguez ; Tyron Bernabe ; Rehan Morris ; Madie Beyer ; Kristine Cox ; Micheal Fermin Jr ; Abel Ordoñez ; Pradip Mendez ; Lauren Dillard ; Lawrence Chan Other Interventions: Discharge Summary Assessment (RN) Last Done: 05/25/21 16:24
[2021-06-06] MEDS ORDERED: ERGOCALCIFEROL 50,000 UNITS 1250 MCG CAP PO SCH (09:00)
== END 2021-05-25 17:12 | disposition home or self-care (01) | DRG 392 ==
LOC: ED 11:55 → SUATTDRO 16:58 → 2N 16:58

== ENCOUNTER 2021-06-13 16:50 | Inpatient (IN) ==
[2021-06-13] MEDS ORDERED: HYDROmorphone INJ 0.5 MG/0.5 ML SYR IV PRN (17:16)
[2021-06-13] MEDS ORDERED: ONDANSETRON INJ 2 MG/ML 2 ML VIAL IV STA (17:16)
--- NOTE | 2021-06-13 17:34 | Emergency Department Note ---
Impression & Plan Abdominal pain, lower, Nausea, Diarrhea ED Provider Note INFORMANT: Patient ED PROVIDER(S): Alireza Lunsford MD CHIEF COMPLAINT: Abdominal pain PLAN: Disposition: Admitted Condition: Good Outpatient prescription management: none Referral: None MEDICAL DECISION MAKING: Patient presented because of lower abdominal pain, nausea and diarrhea. She had an IV established. Patient was given Dilaudid and Zofran. She did feel better with this. She was hydrated. She had a significant leukocytosis on CBC of 20,000. A urine test was unremarkable. Her chemistry panel was unremarkable. The patient underwent imaging of her abdomen pelvis and there is no clear evidence of abscess or obstruction. The patient has some minimal diverticulitis which is improved from prior. She has baseline renal insufficiency. Therefore contrast was not administered. The patient was asked for a stool specimen but was unable to provide one. She was given some oral challenge. Due to her continued symptoms, leukocytosis and concerns about possible C. difficile or other underlying infection she will need further management in the hospital. Consultation was made with the [facility] hospitalist. Patient was evaluated in the ER and admitted for further management. Triage Nursing notes reviewed and agree them. Vital Signs: reviewed and remarkable for tachycardia Differential diagnosis: Recurrent diverticulitis, abscess, C. difficile colitis, appendicitis, infections, UTI, obstruction, mesenteric ischemia, aortic pathology, inflammatory bowel disease, renal colic, PUD, pancreatitis, biliary pathology, hernia, volvulus, constipation, as well as other pathologies. Diagnostics interpreted by me: ECG: Twelve-lead ECG reveals sinus tachycardia at [address] elevation or depression. No PACs or PVCs. Normal axis and QRS. Cardiac Monitoring: Cardiac monitoring ordered by me: The patient was placed on continuous cardiac monitoring and observed. It revealed a normal sinus rhythm at 104 beats per minute without ectopy or evidence of dysrhythmia. Imaging studies: CT scan abdomen pelvis as noted above. I refer you to the EMR for further details. HPI: The patient is a 85 year old female who presents to the Emergency Room with complaints of abdominal pain. This started last night and is worsening. The patient also notes the following associated symptoms, diarrhea, nausea. The patient has tried Zofran for relieving factors. Current pain is rated as 8/10. Patient was recently admitted a few weeks ago for diverticulitis. She has been on high-dose antibiotics and just finished Cipro Flagyl 1 week ago. Pt denies LOC, headache, fevers, chills, diaphoresis, visual changes, neck pain, chest pain, breathing difficulties, back pain, melena, hematochezia, urinary symptoms, numbness, weakness, lymphadenopathy, rash, or other complaints. ROS: See above HPI for pertinent positives & negatives. A total of 10 systems reviewed and were otherwise negative. PAST MEDICAL HISTORY:See Below , diverticulitis PAST SURGICAL HISTORY:See Below, FAMILY HISTORY:See Below SOCIAL HISTORY:See Below, non-smoker HOME MEDICATIONS:See Below ALLERGIES:See Below VITALS:See Below PHYSICAL EXAMINATION: GENERAL: Awake, alert, uncomfortable-appearing, in no distress HENT: Normocephalic, atraumatic. Oropharynx unremarkable except for dry mucous membranes. EYES: Normal conjunctiva. Sclera non-icteric. NECK: Inspection normal. Non-tender. Supple. No nuchal rigidity. FROM. No masses. RESPIRATORY: Clear to auscultation. No wheezes. No rales. Normal respiratory effort. CARDIAC: Tachycardic rate. Normal rhythm. No murmurs. No rubs. Extremities warm and well perfused. Pulses equal. No JVD. GI: Soft, non-distended. Lower tenderness to palpation. No rebound or guarding. No masses. RECTAL: Deferred. MUSCULOSKELETAL: Atraumatic. Chest examination reveals no tenderness. The back is symmetrical on inspection without obvious abnormality. There is no CVA tenderness to palpation. No joint edema. LOWER EXTREMITIES: Calves are equal size bilaterally and non-tender. Trace edema. No discoloration. NEURO: Normal sensorium. No sensory or motor deficits noted. SKIN: No rash or jaundice noted. Alireza Lunsford MD Past Med/Surg History Medical History Abdominal pain, LLQ Acute abdominal pain in left flank CHF (congestive heart failure) Chronic back pain Chronic kidney disease (CKD), stage IV (severe) Diabetes mellitus, type 2 Diverticulitis large intestine Hearing deficit History of kidney stones HTN (hypertension) HTN (hypertension) Hyperlipidemia Kidney cysts LEFT SIDE>BEING MONITORED BY UROLOGY [facility] Morbid obesity with BMI of 40.0-44.9, adult Nocturnal hypoxemia On home oxygen therapy 2L N/C at HS only Osteoarthritis Spinal stenosis Weakness Surgical History H/O: hysterectomy History of arthroscopy of left knee History of bilateral tubal ligation History of cardiac cath ?2009--@ [facility] [place]--no stents History of colonoscopy History of cystoscopy History of dilatation and curettage History of esophagogastroduodenoscopy (EGD) History of tooth extraction all teeth Hx of appendectomy Hx of cholecystectomy Nausea and vomiting after administration of anesthetic agent Family History Sister Family history of diabetes mellitus Sister Family history of diabetes mellitus Brother Family history of diabetes mellitus Family history of esophageal cancer Brother Family history of esophageal cancer Father Lung cancer Other No family history of adverse response to anesthesia No significant family history Social History Smoking Status: Never smoker Second Hand Exposure: No; Hx Alcohol Use: No Hx Substance Use: No Preferred Language: Amharic Communication Ability: Effective Field Care Manager Required: No Beliefs That Will Affect Care: None marital status: / Current Living Situation: Family Current Living Situation Comment: WITH SON Feels Safe at Home: Yes Assistive Devices: Glasses Allergies Allergies Allergy/AdvReac Type Severity Reaction Status Date / Time No Known Allergies Allergy Verified 06/13/21 17:21 Home Meds Home Medications Medication Instructions Recorded Confirmed acetaminophen 500 mg tablet 1,000 mg PO AMPM 12/30/18 06/13/21 (Tylenol Extra Strength) aspirin 81 mg tablet,delayed 81 mg PO QAM 12/30/18 06/13/21 release isosorbide dinitrate 20 mg tablet 20 mg PO TID 12/30/18 06/13/21 rosuvastatin 10 mg tablet 10 mg PO QPM 12/30/18 06/13/21 famotidine 20 mg tablet (Pepcid) 20 mg PO QPM@1700 11/18/19 06/13/21 ergocalciferol (vitamin D2) 1,250 50,000 unit PO MONTHLY 06/23/20 06/13/21 mcg (50,000 unit) capsule lidocaine 4 % topical patch 1 patch TOPICAL QAM 06/23/20 06/13/21 (Salonpas (lidocaine)) insulin human U-100 NPH-regulr See Rx Instructions .ROUTE .COMPLEX 03/16/21 06/13/21 70-30 mix 100 unit/mL subcutaneous susp (Humulin 70/30 U-100 Insulin) allopurinol 100 mg tablet 200 mg PO DAILY@1200 03/17/21 06/13/21 diclofenac sodium 1 % topical gel 4 g TOP QID PRN 03/17/21 06/13/21 folic acid 1 mg tablet 1 mg PO QAM 04/29/21 06/13/21 furosemide 40 mg tablet 20 mg PO QPM@1700 04/29/21 06/13/21 furosemide 40 mg tablet 40 mg PO QAM 04/29/21 06/13/21 sennosides 8.6 mg-docusate sodium 1 tab-cap PO QPM 04/29/21 06/13/21 50 mg tablet (Senna with Docusate Sodium) hydralazine 100 mg tablet 100 mg PO TID 06/13/21 06/13/21 Previous Rx's Medication Instructions Recorded cyanocobalamin (vitamin B-12) 500 500 mcg PO QAM #30 tab 03/27/21 mcg tablet ondansetron 4 mg disintegrating 4 mg PO Q6H PRN #14 tab 03/29/21 tablet carvedilol 25 mg tablet 25 mg PO QAM 30 Days #30 tab 05/25/21 carvedilol 6.25 mg tablet 18.75 mg PO QPM 30 Days #90 tab 05/25/21 ferrous sulfate 325 mg (65 mg 325 mg PO QAM 30 Days #30 tab 05/25/21 iron) tablet,delayed release Results & Data (ED) Vital Signs Vital Signs - 24 hr 06/13/21 16:53 06/13/21 17:24 06/13/21 17:32 Temperature 36.2 C L Temperature Source Temporal Artery Scan Pulse Rate 110 H 107 H Pulse Rate from SpO2 Sensor 107 H Respiratory Rate 20 25 H Respiratory Effort / Characteristics Non-Labored Spontaneous Respiratory Depth Normal Respiratory Pattern Regular Blood Pressure 151/66 H 184/58 H Blood Pressure Mean 94 100 Pulse Oximetry 94 93 Oxygen Delivery Method Room Air Room Air Oxygen Flow Rate Sepsis Recent Fever Within 48 Hours No Sepsis New/Unexplained Change in Mental Status No Sepsis Action Taken by Nursing No Action Required 06/13/21 19:21 06/13/21 19:31 06/13/21 20:00 Temperature Temperature Source Pulse Rate 106 H 104 H 104 H Pulse Rate from SpO2 Sensor 106 H 104 H 104 H Respiratory Rate 27 H 27 H 24 Respiratory Effort / Characteristics Respiratory Depth Respiratory Pattern Blood Pressure 219/81 H Blood Pressure Mean 127 Pulse Oximetry 93 92 91 Oxygen Delivery Method Oxygen Flow Rate Sepsis Recent Fever Within 48 Hours Sepsis New/Unexplained Change in Mental Status Sepsis Action Taken by Nursing 06/13/21 20:32 06/13/21 21:01 06/13/21 21:10 Temperature Temperature Source Pulse Rate 104 H 105 H Pulse Rate from SpO2 Sensor 105 H 105 H Respiratory Rate 20 24 Respiratory Effort / Characteristics Respiratory Depth Respiratory Pattern Blood Pressure 155/65 H Blood Pressure Mean 95 Pulse Oximetry 90 87 L 95 Oxygen Delivery Method Nasal Cannula Oxygen Flow Rate 2 Sepsis Recent Fever Within 48 Hours Sepsis New/Unexplained Change in Mental Status Sepsis Action Taken by Nursing Laboratory Data Result diagrams: 06/13/21 16:58 06/13/21 16:58 Lab Results 06/13/21 06/13/21 06/13/21 Range/Units 16:58 16:58 16:58 WBC 20.75 H (4.8-10.8) K/uL RBC 3.58 L (4.2-5.4) M/uL Hgb 10.7 L (12.0-16.0) g/dL Hct 32.9 L (37-47) % MCV 91.9 (80-100) fL MCH 29.9 (25-34) pg MCHC 32.5 (32-36) g/dL RDW Std Deviation 53.1 H (36.4-46.3) fL RDW Coeff of Noemy 15.8 H (11.5-14.5) % Plt Count 345 (130-400) K/uL MPV 9.3 (7.4-10.4) fL Immature Gran % (Auto) 0.3 % Neut % (Auto) 88.6 % Lymph % (Auto) 5.3 % [place] % (Auto) 5.4 % Eos % (Auto) 0.3 % Baso % (Auto) 0.1 % Neut # (Auto) 18.36 H (1.4-6.5) K/uL Lymph # (Auto) 1.09 L (1.2-3.4) K/uL [place] # (Auto) 1.13 H (0.11-0.59) K/uL Eos # (Auto) 0.07 (0-0.5) K/uL Baso # (Auto) 0.03 (0-0.2) K/uL Immature Gran # (Auto) 0.07 H (0.00-0.02) K/uL Sodium 139 (136-145) mmol/L Potassium 3.3 L (3.5-5.1) mmol/L Chloride 103 (98-107) mmol/L Carbon Dioxide 24 (21-32) mmol/L Anion Gap 13.0 H (3-11) BUN 36 H (7-18) mg/dl Creatinine 2.01 H (0.6-1.2) mg/dl Est Cr Clr Drug Dosing Not Reportable Est GFR ( Amer) 25.4 ml/min Est GFR (Non-Af Amer) 21.9 ml/min BUN/Creatinine Ratio 18.0 (10-20) Glucose 140 H (70-99) mg/dl Lactate 1.1 (0.4-2.0) mmol/L Calcium 10.0 (8.5-10.1) mg/dl Total Bilirubin 1.5 H (0.2-1) mg/dl AST 12 L (15-37) U/L ALT 15 (12-78) U/L Alkaline Phosphatase 63 (45-117) U/L Total Protein 7.1 (6.4-8.2) gm/dl Albumin 3.9 (3.4-5.0) gm/dl Globulin 3.2 (2.5-4.0) gm/dl Albumin/Globulin Ratio 1.2 (0.9-2) Lipase 107 (73-393) U/L Urine Color Urine Appearance (Clear) Urine pH (4.5-7.5) Ur Specific [place] (1.000-1.030) Urine Protein (Negative) Urine Glucose (UA) (Negative) Urine Ketones (Negative) Urine Blood (Negative) Urine Nitrite (Negative) Urine Bilirubin (Negative) Urine Urobilinogen (Negative) Ur Leukocyte Esterase (Negative) Urine WBC (Auto) (0-5) /hpf Urine RBC (Auto) (0-4) /hpf U Hyaline Cast (Auto) (0-5) /lpf U Epithel Cells (Auto) (0-5) /lpf Urine Bacteria (Auto) (Negative) COVID-19 Eval Order SARS-CoV-2 (PCR) (Negative) 06/13/21 06/13/21 06/13/21 Range/Units Unknown Unknown Unknown WBC (4.8-10.8) K/uL RBC (4.2-5.4) M/uL Hgb (12.0-16.0) g/dL Hct (37-47) % MCV (80-100) fL MCH (25-34) pg MCHC (32-36) g/dL RDW Std Deviation (36.4-46.3) fL RDW Coeff of Noemy (11.5-14.5) % Plt Count (130-400) K/uL MPV (7.4-10.4) fL Immature Gran % (Auto) % Neut % (Auto) % Lymph % (Auto) % [place] % (Auto) % Eos % (Auto) % Baso % (Auto) % Neut # (Auto) (1.4-6.5) K/uL Lymph # (Auto) (1.2-3.4) K/uL [place] # (Auto) (0.11-0.59) K/uL Eos # (Auto) (0-0.5) K/uL Baso # (Auto) (0-0.2) K/uL Immature Gran # (Auto) (0.00-0.02) K/uL Sodium (136-145) mmol/L Potassium (3.5-5.1) mmol/L Chloride (98-107) mmol/L Carbon Dioxide (21-32) mmol/L Anion Gap (3-11) BUN (7-18) mg/dl Creatinine (0.6-1.2) mg/dl Est Cr Clr Drug Dosing Est GFR ( Amer) ml/min Est GFR (Non-Af Amer) ml/min BUN/Creatinine Ratio (10-20) Glucose (70-99) mg/dl Lactate (0.4-2.0) mmol/L Calcium (8.5-10.1) mg/dl Total Bilirubin (0.2-1) mg/dl AST (15-37) U/L ALT (12-78) U/L Alkaline Phosphatase (45-117) U/L Total Protein (6.4-8.2) gm/dl Albumin (3.4-5.0) gm/dl Globulin (2.5-4.0) gm/dl Albumin/Globulin Ratio (0.9-2) Lipase (73-393) U/L Urine Color Yellow Urine Appearance Clear (Clear) Urine pH 5.5 (4.5-7.5) Ur Specific [place] 1.009 (1.000-1.030) Urine Protein 2+ H (Negative) Urine Glucose (UA) Negative (Negative) Urine Ketones Negative (Negative) Urine Blood Negative (Negative) Urine Nitrite Negative (Negative) Urine Bilirubin Negative (Negative) Urine Urobilinogen Negative (Negative) Ur Leukocyte Esterase Negative (Negative) Urine WBC (Auto) 1-5 (0-5) /hpf Urine RBC (Auto) 0-4 (0-4) /hpf U Hyaline Cast (Auto) 1-5 (0-5) /lpf U Epithel Cells (Auto) 20-30 H (0-5) /lpf Urine Bacteria (Auto) Negative (Negative) COVID-19 Eval Order Covid19 at [facility] SARS-CoV-2 (PCR) NEGATIVE (Negative) Administered Medications Hydromorphone HCl (Hydromorphone Inj 0.5 Mg/0.5 Ml Syr) 0.5 mg IV Q15M PRN PRN Reason: Pain Stop: 06/27/21 17:15 Last Admin: 06/13/21 17:38 Dose: 0.5 mg Documented by: [id number] Discontinued Medications Sodium Chloride (Nss 1000ml) 1,000 mls @ 999 mls/hr IV .Q1H1M ONE Stop: 06/13/21 20:48 Last Admin: 06/13/21 20:01 Dose: 999 mls/hr Documented by: [id number] Ondansetron HCl (Ondansetron Inj 2 Mg/Ml 2 Ml Vial) 4 mg IV NOW STA Stop: 06/13/21 17:17 Last Admin: 06/13/21 17:38 Dose: 4 mg Documented by: [id number] Imaging Data Radiologist's Impression: Abdomen/Pelvis CT 06/13/21 17:16 CT SCAN OF THE ABDOMEN AND PELVIS WITHOUT IV CONTRAST CLINICAL HISTORY: Lower abdominal pain. Diarrhea. Nausea and vomiting. COMPARISON STUDY: Prior abdominal CT scans, most recently dated 05/20/2021. Renal ultrasound dated 04/23/2020. TECHNIQUE: CT scan of the abdomen and pelvis is performed from the lung bases to the proximal femora. Images are reviewed in the axial, sagittal, and coronal planes. IV contrast was not administered for this examination due to poor renal function. Note that the examination is suboptimal without oral and IV contrast. A dose lowering technique was utilized adhering to the principles of ALARA. CT DOSE: 926.47 mGy.cm FINDINGS: Lung bases: The heart is enlarged and without pericardial effusion. The coronary arteries are densely calcified. The lung bases are clear noting bibasilar scarring/atelectasis. Liver: The unenhanced liver is normal in size, contour, and attenuation. There is no intrahepatic biliary ductal dilatation. A 1.6 cm cyst is incidentally noted in the left lobe. Gallbladder: Surgically absent noting clips in the gallbladder fossa. Spleen: Normal in size and attenuation. Pancreas: The unenhanced pancreas is moderately atrophic and grossly unremarkable. 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 The right adrenal gland is normal in appearance. Kidneys: The unenhanced kidneys are atrophic and without hydronephrosis. There are no renal calculi identified. A 4.4 cm hyperdense structure in the interpolar left kidney likely represents a complex cyst when correlated with previous ultrasound. Additional smaller complex cysts are noted bilaterally. Abdominal vasculature: The abdominal aorta is normal in course and caliber noting advanced atherosclerotic calcification. Bowel: There is mild to moderate colonic diverticulosis. There is mild persistent wall thickening with pericolonic infiltration and fluid involving the mid sigmoid colon consistent with acute diverticulitis. This has improved as compared to 05/20/2021. There is no evidence of organized fluid collection sugg est abscess. No bowel obstruction is seen. The appendix is not identified and reported surgically absent. Peritoneum: There is no intraperitoneal free air or abdominal ascites. Lymphadenopathy: Shotty retroperitoneal lymph nodes are nonspecific and likely reactive. Pelvic viscera: The bladder is normal as visualized. The uterus is surgically absent. No adnexal lesion is seen. Skeletal structures: The skeletal structures are osteopenic. There is moderate lumbosacral spondylosis. No lytic or blastic lesions are seen. IMPRESSION: 1. Colonic diverticulosis with evidence of mild sigmoid diverticulitis. This has improved as compared to 05/20/2021. 2. No intraperitoneal free air is identified and there is no organized fluid collection to suggest abscess on this unenhanced examination. 3. No bowel obstruction. 4. Additional findings as above. ACT 112: Negative or not required by law. Electronically signed by: Marco Morocho M.D. 06/13/2021 7:42 PM Discharge Plan Visit Data Chief Complaint: Abdominal Pain Stated Complaint: STOMACH PAIN ED Provider: Alireza Lunsford Discharge Problem: Abdominal pain, lower, Nausea, Diarrhea Forms Stand Alone Forms: [facility] [employer] Prescriptions Prescriptions: No Action ergocalciferol (vitamin D2) 1,250 mcg (50,000 unit) capsule 50,000 unit PO MONTHLY RF: 0 lidocaine [Salonpas (lidocaine)] 4 % Adhesive Patch,Medicated 1 patch TOPICAL QAM RF: 0 aspirin 81 mg Tablet,Delayed Release (Dr/Ec) 81 mg PO QAM RF: 0 isosorbide dinitrate 20 mg tablet 20 mg PO TID RF: 0 rosuvastatin 10 mg tablet 10 mg PO QPM RF: 0 acetaminophen [Tylenol Extra Strength] 500 mg Tablet 1,000 mg PO AMPM RF: 0 famotidine [Pepcid] 20 mg Tablet 20 mg PO QPM@1700 RF: 0 ondansetron 4 mg tablet,disintegrating 4 mg PO Q6H PRN (Reason: nausea and vomiting) Qty: 14 RF: 0 furosemide 40 mg tablet 20 mg PO QPM@1700 RF: 0 folic acid 1 mg tablet 1 mg PO QAM RF: 0 furosemide 40 mg tablet 40 mg PO QAM RF: 0 sennosides-docusate sodium [Senna with Docusate Sodium] 8.6-50 mg tablet 1 tab-cap PO QPM RF: 0 ferrous sulfate 325 mg (65 mg iron) Tablet,Delayed Release (Dr/Ec) 325 mg PO QAM 30 Days Qty: 30 RF: 0 carvedilol 25 mg Tablet 25 mg PO QAM 30 Days Qty: 30 RF: 0 carvedilol 6.25 mg Tablet 18.75 mg PO QPM 30 Days Qty: 90 RF: 0 hydralazine 100 mg tablet 100 mg PO TID RF: 0 Humulin 70/30 U-100 Insulin 100 unit/mL (70-30) suspension See Rx Instructions .ROUTE .COMPLEX RF: 0 allopurinol 100 mg tablet 200 mg PO DAILY@1200 RF: 0 diclofenac sodium 1 % gel 4 g TOP QID PRN (Reason: Pain) RF: 0 cyanocobalamin (vitamin B-12) 500 mcg Tablet 500 mcg PO QAM Qty: 30 RF: 0 Referrals Referrals: Fox Ramirez MD [Primary Care Provider] -
[2021-06-13 17:41] LABS: Basophils # (auto) 0.03 K/uL (0-0.2); Basophils % (auto) 0.1 %; Eosinophils # (auto) 0.07 K/uL (0-0.5); Eosinophils % (auto) 0.3 %; Hematocrit (blood only) 32.9 % (37-47); Hemoglobin 10.7 g/dL (12.0-16.0); Immature Granulocytes # (auto) 0.07 K/uL (0.00-0.02); Immature Granulocytes % (auto) 0.3 %; Lymphocytes # (auto) 1.09 K/uL (1.2-3.4); Lymphocytes % (auto) 5.3 %; Mean Corpuscular Hemoglobin 29.9 pg (25-34); Mean Corpuscular Hgb Conc 32.5 g/dL (32-36); Mean Corpuscular Volume 91.9 fL (80-100); Mean Platelet Volume 9.3 fL (7.4-10.4); Monocytes # (auto) 1.13 K/uL (0.11-0.59); Monocytes % (auto) 5.4 %; Neutrophils # (auto) 18.36 K/uL (1.4-6.5); Neutrophils % (auto) 88.6 %; Platelet Count 345 K/uL (130-400); RDW Coefficient of Variation 15.8 % (11.5-14.5); RDW Standard Deviation 53.1 fL (36.4-46.3); Red Blood Count 3.58 M/uL (4.2-5.4); White Blood Count 20.75 K/uL (4.8-10.8)
[2021-06-13 17:53] LABS: Alanine Aminotransferase 15 U/L (12-78); Albumin Level 3.9 gm/dl (3.4-5.0); Aspartate Aminotransferase 12 U/L (15-37); Blood Urea Nitrogen 36 mg/dl (7-18); Carbon Dioxide 24 mmol/L (21-32); Chloride 103 mmol/L (98-107); Est GFR (African American) 25.4 ml/min; Est GFR (Non-African American) 21.9 ml/min; Glucose 140 mg/dl (70-99); Lipase 107 U/L (73-393); Potassium 3.3 mmol/L (3.5-5.1); Sodium 139 mmol/L (136-145)
[2021-06-13 17:56] LABS: Albumin Globulin Ratio 1.2 (0.9-2); Alkaline Phosphatase 63 U/L (45-117); Bilirubin,Total 1.5 mg/dl (0.2-1); Globulin 3.2 gm/dl (2.5-4.0); Total Protein 7.1 gm/dl (6.4-8.2)
[2021-06-13 19:13] LABS: Appearance Urine Clear (Clear); Bacteria Urine Automated Negative (Negative); Bilirubin Urine Negative (Negative); Blood Urine Negative (Negative); Color Urine Yellow; Epithelial Cell Urine Auto 20-30 /lpf (0-5); Glucose Urine UA Negative (Negative); Ketones Urine Negative (Negative); Leukocyte Esterase Urine Negative (Negative); Nitrite Urine Negative (Negative); Protein Urine 2+ (Negative); RBC Urine Automated 0-4 /hpf (0-4); Specific Gravity Urine 1.009 (1.000-1.030); Urobilinogen Urine Negative (Negative); pH Urine 5.5 (4.5-7.5)
--- NOTE | 2021-06-13 19:43 | CT Scan Report ---
CT SCAN OF THE ABDOMEN AND PELVIS WITHOUT IV CONTRAST CLINICAL HISTORY: Lower abdominal pain. Diarrhea. Nausea and vomiting. COMPARISON STUDY: Prior abdominal CT scans, most recently dated 05/20/2021. Renal ultrasound dated 04/23/2020. TECHNIQUE: CT scan of the abdomen and pelvis is performed from the lung bases to the proximal femora. Images are reviewed in the axial, sagittal, and coronal planes. IV contrast was not administered for this examination due to poor renal function. Note that the examination is suboptimal without oral an d IV contrast. A dose lowering technique was utilized adhering to the principles of ALARA. CT DOSE: 926.47 mGy.cm FINDINGS: Lung bases: The heart is enlarged and without pericardial effusion. The coronary arteries are densely calcified. The lung bases are clear noting bibasilar scarring/atelectasis. Liver: The unenhanced liver is normal in size, contour, and attenuation. There is no intrahepatic lia iary ductal dilatation. A 1.6 cm cyst is incidentally noted in the left lobe. Gallbladder: Surgically absent noting clips in the gallbladder fossa. Spleen: Normal in size and attenuation. Pancreas: The unenhanced pancreas is moderately atrophic and grossly unremarkable. 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 The right adrenal gland is normal in appearance. Kidneys: The unenhanced kidneys are atrophic and without hydronephrosis. There are no renal calculi i dentified. A 4.4 cm hyperdense structure in the interpolar left kidney likely represents a complex cy st when correlated with previous ultrasound. Additional smaller complex cysts are noted bilaterally. Abdominal vasculature: The abdominal aorta is normal in course and caliber noting advanced atheroscle rotic calcification. Bowel: There is mild to moderate colonic diverticulosis. There is mild persistent wall thickening wit h pericolonic infiltration and fluid involving the mid sigmoid colon consistent with acute diverticul itis. This has improved as compared to 05/20/2021. There is no evidence of organized fluid collection suggest abscess. No bowel obstruction is seen. The appendix is not identified and reported surgicall y absent. Peritoneum: There is no intraperitoneal free air or abdominal ascites. Lymphadenopathy: [place] retroperitoneal lymph nodes are nonspecific and likely reactive. Pelvic viscera: The bladder is normal as visualized. The uterus is surgically absent. No adnexal lesi on is seen. Skeletal structures: The skeletal structures are osteopenic. There is moderate lumbosacral spondylosi s. No lytic or blastic lesions are seen. IMPRESSION: 1. Colonic diverticulosis with evidence of mild sigmoid diverticulitis. This has improved as compared to 05/20/2021. 2. No intraperitoneal free air is identified and there is no organized fluid collection to suggest ab scess on this unenhanced examination. 3. No bowel obstruction. 4. Additional findings as above. ACT 112: Negative or not required by law. Electronically signed by: Marco Morocho M.D. 06/13/2021 7:42 PM
[2021-06-13] MEDS ORDERED: SODIUM CHLORIDE 0.9% 1000ML 1,000 ML IV STA (19:47)
[2021-06-13] MEDS ORDERED: SODIUM CHLORIDE 0.9% 1000ML 1,000 ML IV ONE (19:48)
[2021-06-13] MEDS ORDERED: POTASSIUM CHLORIDE CRTAB 20 MEQ TABCR PO STA (22:33)
[2021-06-14 00:05] LABS: Cdiff Antigen Positive
[2021-06-14] MEDS ORDERED: POTASSIUM CHLORIDE 20 MEQ/15 ML UDC PO STA (00:11)
[2021-06-14 00:21] LABS: Cdiff Toxin A+B Positive Cdiff Toxin (Negative)
--- NOTE | 2021-06-14 00:50 | History and Physical Report ---
DATE OF ADMISSION: 06/13/2021. CHIEF COMPLAINT: Nausea, vomiting, abdominal pain, and diarrhea. HISTORY OF PRESENT ILLNESS: An 85-year-old female with past medical history significant for type 2 diabetes, hyperlipidemia, secondary hyperparathyroidism, chronic rhinitis, nocturnal hypoxia, uses oxygen in the nighttime, chronic kidney disease stage IV, mitral valve insufficiency, hypertension, diastolic CHF, left bundle-branch block, obesity, GERD, vitamin D deficiency, osteoporosis, lumbar degenerative disk disease, history of diverticulitis in the recent past. Was admitted in the hospital and got discharged on 05/25/2021 for diverticulitis.Discharged on antibiotic course with Cipro and metronidazole. Comes because of nausea, vomiting, and diarrhea starting yesterday. She said yesterday all night she was having lot of diarrhea and she was nauseous, could not eat anything today, and has abdominal discomfort, feeling sick, prompting her to come to the ER. She had some foul-smelling diarrhea in the ER. Her white count is 20. Hemodynamics are stable. Potassium 3.3, creatinine is 2, which is close to baseline. SARS-CoV-[address] of abdomen and pelvis is showing colonic diverticulosis, evidence of mild sigmoid diverticulitis, which is improved compared to 05/20/2021. She has some chest discomfort and attributes it to her gas pain. No shortness of breath, no headache. She felt blurred vision last night. No earache, no runny nose, no sore throat, no cough. Had some fever at home today. She takes iron supplements and stools are always black. Denies any burning micturition or hematuria. No swelling. No rash anywhere. She was not able to ambulate today because of weakness. Usually she ambulates with a walker. She lives with her son. ALLERGIES: MORPHINE AND RELATED AND PHENYLPROPANOLAMINE. PAST MEDICAL HISTORY: As mentioned above. PAST SURGICAL HISTORY: Knee arthroplasty, colonoscopy, injection of the lumbar spine, ligation of oviducts, appendectomy, cholecystectomy, total hysterectomy. MEDICATIONS: The patient is on Tylenol 1000 mg p.o. b.i.d., allopurinol 200 mg p.o. daily, aspirin 81 mg in the p.m., Coreg 25 mg p.o. b.i.d., vitamin B12 500 mcg p.o. a.m., diclofenac sodium 4 g topical q.i.d. p.r.n., vitamin D 50,000 units p.o. monthly, famotidine 20 mg p.o. p.m., ferrous sulfate 325 mg p.m., folic acid 1 mg p.o. a.m., Lasix 20 mg p.m. and 40 mg in a.m., Humulin 70/30, 70 units before breakfast and 55 units before supper, hydralazine 100 mg p.o. t.i.d., isosorbide dinitrate 20 mg p.o. t.i.d., lidocaine 1 patch topical a.m., Zofran 4 mg p.o. q. 6 hours p.r.n., atorvastatin 40 mg p.o. a.m., Senokot S one tablet p.o. p.m. FAMILY HISTORY: Significant for brother had throat cancer, father had laryngeal cancer, sister has lung cancer, mother has stroke. SOCIAL HISTORY: , lives with her son. No smoking, no alcohol use, no drug use. REVIEW OF SYSTEMS: As per HPI. Rest of the review of systems is negative. PHYSICAL EXAMINATION: GENERAL: The patient is obese, not in acute distress. VITAL SIGNS: Temperature 36.2, pulse 105, respiratory rate 24, blood pressure 155/65, oxygen 95% on 2 liters. HEENT: Pupils equal, round and reactive to light. Oral mucosa moist. NECK: No JVD, no neck masses. CARDIOVASCULAR: S1 and S2 heard. Tachycardia. No murmurs. RESPIRATORY SYSTEM: Normal AP diameter. No accessory muscle use. No wheezing, no crackles. ABDOMEN: Soft, bowel sounds present. Mild discomfort. No guarding, no rigidity. CENTRAL NERVOUS SYSTEM: Cranial nerves II-XII grossly intact, nonfocal. EXTREMITIES: Mild pedal edema, no erythema seen. LABORATORY DATA: WBC 20.7, hemoglobin 10.7, hematocrit 32.9, platelets 345. Sodium 139, potassium 3.3, chloride 103, bicarb 24, BUN 36, creatinine 2, serum glucose 140. Lactate 1.1, calcium 10, total bilirubin 1.5, AST 12, ALT 15, alkaline phosphatase 63, lipase 107. Urinalysis, +2 protein. SARS-CoV-2 PCR negative. Stool for C. diff positive IMAGING DATA: CT of abdomen and pelvis without IV contrast showed colonic diverticulosis with evidence of mild sigmoid diverticulitis. This has improved as compared to 05/20/2021. No intraperitoneal free air is identified and there is no organized fluid collection to suggest abscess on this unenhanced examination. No bowel obstruction. EKG: Sinus tachycardia at a rate of 105, no significant change was found. ASSESSMENT AND PLAN: This is an 85-year-old female who presents with nausea, vomiting, abdominal pain, and diarrhea. 1. Nausea, vomiting, abdominal pain, and diarrhea and elevated white count of 20.5. The patient is recently on antibiotic use for diverticulitis. Stool for C. diff cam back positive. Started on p.o. vancomycin and IV Flagyl. CT scan is also showing mild diverticulitis though it is improved from the last CAT scan. We will consult GI in the a.m. for further recommendations. We will keep her on clear liquid diet for now. IV fluids and IV Dilaudid p.r.n. for any pain and closely monitor in the med tele. 2. Chest discomfort: The patient admits to gas pain. Initial EKG is negative and troponin is unremarkable. Follow the troponin and repeat EKG in the a.m. 3. Chronic kidney disease stage IV: Presently with a creatinine of 2, which is baseline. Follow the repeat labs. 4. Hypokalemia: Potassium of 3.3, will follow the repeat labs. 5. Mild elevation of bilirubin: It was elevated last admission also, could be Gilbert's syndrome. Will follow the repeat labs. 6. History of diabetes: The patient is on Humulin 70/30, 70 units in the a.m. and 55 units in the p.m. Will hold the Humulin 70/30. Will place her on Lantus 15 units b.i.d., insulin sliding scale as the patient is currently not eating much. 7. History of hypertension: Recently Coreg was increased to 25 b.i.d. Will continue hydralazine 100 mg t.i.d., isosorbide dinitrate 20 mg t.i.d. Will monitor the blood pressure. 8. History of nocturnal hypoxia: Continue oxygen in the nighttime. 9. History of diastolic congestive heart failure and mitral valve insufficiency, left bundle-branch block. Holding her home diuretics as the patient is currently having a lot of diarrhea.Patient is also getting fluids. Monitor for volume overload. Will reduce the fluids when the patient is getting better. 10. Gastroesophageal reflux disease: Continue her home Pepcid. 11. Obesity: Needs counseling. 12. Gout: On allopurinol. 13. Hyperlipidemia: On statin. 14. Deep venous thrombosis prophylaxis: Placed on heparin subcutaneous and sequential compression devices. DISPOSITION: Closely monitor in the med tele. Level 1 full code. Expect to discharge home and follow with family doctor. PT/OT prior to discharge. Social service to help with discharge planning. Job ID: [id number] [facility]
[2021-06-14] MEDS ORDERED: NITROGLYCERIN SL 0.4 MG/TAB TAB SL PRN (02:20)
[2021-06-14] MEDS ORDERED: HYDROmorphone INJ 0.5 MG/0.5 ML SYR IV PRN (02:20)
[2021-06-14] MEDS ORDERED: DEXTROSE 50% 50 ML SYRINGE IV PRN (03:00)
[2021-06-14] MEDS ORDERED: hydrALAZINE HCL 20 MG/ML VIAL IV STA (03:00)
[2021-06-14] MEDS ORDERED: GLUCOSE 40% GEL 15 GM TUBE PO PRN (03:00)
[2021-06-14] MEDS ORDERED: GLUCAGON FOR INJ 1 MG VIAL IM PRN (03:00)
[2021-06-14] MEDS ORDERED: CARBOHYDRATES FOR HYPOGLYCEMIA PO PRN (03:00)
[2021-06-14] MEDS ORDERED: GLUCOSE 10 TABS/TUBE PO PRN (03:00)
[2021-06-14] MEDS: ONDANSETRON INJ 2 MG/ML 2 ML VIAL IV PRN ×2 (03:05→09:04)
[2021-06-14] MEDS: SODIUM CHLORIDE 0.9% 1000ML 1,000 ML IV SCH ×3 (03:23→18:50)
[2021-06-14] MEDS: metroNIDAZOLE 500 MG/100 ML BAG IV SCH ×3 (04:54→22:07)
[2021-06-14 05:42] LABS: Basophils # (auto) 0.01 K/uL (0-0.2); Basophils % (auto) 0.1 %; Eosinophils # (auto) 0.01 K/uL (0-0.5); Eosinophils % (auto) 0.1 %; Hematocrit (blood only) 31.3 % (37-47); Hemoglobin 10.1 g/dL (12.0-16.0); Immature Granulocytes # (auto) 0.03 K/uL (0.00-0.02); Immature Granulocytes % (auto) 0.2 %; Lymphocytes # (auto) 1.13 K/uL (1.2-3.4); Lymphocytes % (auto) 5.7 %; Mean Corpuscular Hemoglobin 30.2 pg (25-34); Mean Corpuscular Hgb Conc 32.3 g/dL (32-36); Mean Corpuscular Volume 93.7 fL (80-100); Monocytes # (auto) 1.77 K/uL (0.11-0.59); Neutrophils # (auto) 16.77 K/uL (1.4-6.5); Neutrophils % (auto) 84.9 %; Platelet Count 306 K/uL (130-400); RDW Coefficient of Variation 15.8 % (11.5-14.5); RDW Standard Deviation 53.9 fL (36.4-46.3); Red Blood Count 3.34 M/uL (4.2-5.4); White Blood Count 19.72 K/uL (4.8-10.8)
[2021-06-14 06:08] LABS: BUN Creatinine Ratio 16.8 (10-20); Blood Urea Nitrogen 32 mg/dl (7-18); Calcium 9.1 mg/dl (8.5-10.1); Carbon Dioxide 26 mmol/L (21-32); Chloride 107 mmol/L (98-107); Creatinine Clr Calc Pharmacy 24.3 ml/min; Est GFR (African American) 26.8 ml/min; Est GFR (Non-African American) 23.2 ml/min; Glucose 187 mg/dl (70-99); Magnesium 2.1 mg/dl (1.8-2.4); Potassium 3.3 mmol/L (3.5-5.1); Sodium 140 mmol/L (136-145)
[2021-06-14] MEDS: RASPBERRY SYRUP 5 ML UDP PO SCH ×3 (06:10→17:56)
[2021-06-14] MEDS: ISOSORBIDE DINITRATE 20 MG TAB PO SCH ×3 (06:10→17:55)
[2021-06-14] MEDS: VANCOMYCIN HCL 250 MG/5 ML SOLN PO SCH ×3 (06:10→17:56)
[2021-06-14 06:12] LABS: Phosphorus 2.4 mg/dl (2.5-4.9); Troponin I < 0.015 ng/ml (0-0.045)
[2021-06-14 07:23] LABS: Estimated Average Glucose 137 mg/dl; Hemoglobin A1C 6.4 % (4.5-5.6)
[2021-06-14] MEDS: ASPIRIN 81 MG ECTAB PO SCH (08:26)
[2021-06-14] MEDS: ACETAMINOPHEN 500 MG TAB PO SCH ×2 (08:27→22:08)
[2021-06-14] MEDS: carvediloL 25 MG TAB PO SCH ×2 (08:27→22:08)
[2021-06-14] MEDS: CYANOCOBALAMIN 500 MCG TABLET (VITAMIN B-12) PO SCH (08:29)
[2021-06-14] MEDS: FERROUS SULFATE 325 MG TAB PO SCH (08:30)
[2021-06-14] MEDS: FOLIC ACID 1 MG TAB PO SCH (08:31)
[2021-06-14] MEDS: hydrALAZINE TAB 50 MG TAB PO SCH ×3 (08:31→22:09)
[2021-06-14] MEDS: INSULIN GLARGINE SOLOSTAR 100 UNITS/ML 3 ML PEN SC SCH ×2 (08:32→22:11)
[2021-06-14] MEDS: INSULIN ASPART 100 UNITS/ML 3 ML PEN SC SCH ×4 (08:32→17:56)
[2021-06-14] MEDS: HEPARIN SOD 5,000 UNIT/0.5 ML VIAL SQ SCH ×2 (08:34→22:08)
[2021-06-14] MEDS: LIDOCAINE 5% 1 PATCH TD SCH (08:34)
--- NOTE | 2021-06-14 09:08 | Gastrointestinal Consultation ---
Date of Consultation June 14, 2021 Assessment & Plan (1) Abdominal pain, lower: 85 year old female admitted w/ pain, nauesa and diarrhea, CTAP showing improving diverticilitus and stools positive for c.diff. Agree with treating c.diff with PO Vancomycin 125 QID for 14 days followed by taper by 125 mg twice daily for 7 days then 125 mg daily for 7 days then every other day for 8 weeks Agree w/ IV flagyl Agree w/ analgesia antiemetics NPO for bowel rest but can advance as tolerated to clear liquids then low residue Thank you for allowing us to participate in the care of this patient. Please call with any acute changes, questions or concerns. Please see addendum below with additional recommendation from my supervising physician. Supervising Physician Co-Signing Physician Notes Late entry: Patient was seen and examined on 06/14 MAHI Pearl whose note reflects our findings and plan. Patient admitted with complicated diverticulitis then C diff. Abd mildly tender. Having loose stools. Long vanco taper as outpatient above. History of Present Illness Reason for Consultation: diverticulitis, c.diff Requesting Physician: Trent Attending Physician: Ama Newman MD History of Present Illness 85 year old female with history of T2DM, HTN, dyslipidemia, GERD, CKD-3, CHF, hyperparathyroidism, nocturnal hypoxia, uses oxygen in the nighttime, mitral valve insufficiency admitted w/ with nausea, vomiting, abdominal pain, and diarrhea. Imaging showig improving diverticulitis and stools positive for c.diff. She notes generalized abd discomfort, persistent loose stools suggestion dark brown watery stools every 5/10 minutes. She has had nausea, vomiting today. Emesis is bilious/clear. No coffee grond emesis or hematemesis. CTAP 2020: Colonic diverticulosis with evidence of mild sigmoid diverticulitis. This has improved as compared to 05/20/2021. No intraperitoneal free air is identified and there is no organized fluid collection to suggest abscess on this unenhanced examination. No bowel obstruction. Allergies Allergy/AdvReac Type Severity Reaction Status Date / Time No Known Allergies Allergy Verified 06/13/21 17:21 Home Medications Medication Instructions Recorded Confirmed Type acetaminophen 500 mg tablet 1,000 mg PO AMPM 12/30/18 06/13/21 History (Tylenol Extra Strength) aspirin 81 mg tablet,delayed 81 mg PO QAM 12/30/18 06/13/21 History release isosorbide dinitrate 20 mg tablet 20 mg PO TID 12/30/18 06/13/21 History rosuvastatin 10 mg tablet 10 mg PO QPM 12/30/18 06/13/21 History famotidine 20 mg tablet (Pepcid) 20 mg PO QPM@1700 11/18/19 06/13/21 History ergocalciferol (vitamin D2) 1,250 50,000 unit PO MONTHLY 06/23/20 06/13/21 History mcg (50,000 unit) capsule lidocaine 4 % topical patch 1 patch TOPICAL QAM 06/23/20 06/13/21 History (Salonpas (lidocaine)) insulin human U-100 NPH-regulr See Rx Instructions .ROUTE .COMPLEX 03/16/21 06/13/21 History 70-30 mix 100 unit/mL subcutaneous susp (Humulin 70/30 U-100 Insulin) allopurinol 100 mg tablet 200 mg PO DAILY@1200 03/17/21 06/13/21 History diclofenac sodium 1 % topical gel 4 g TOP QID PRN 03/17/21 06/13/21 History cyanocobalamin (vitamin B-12) 500 500 mcg PO QAM #30 tab 03/27/21 06/13/21 Rx mcg tablet ondansetron 4 mg disintegrating 4 mg PO Q6H PRN #14 tab 03/29/21 06/13/21 Rx tablet folic acid 1 mg tablet 1 mg PO QAM 04/29/21 06/13/21 History furosemide 40 mg tablet 20 mg PO QPM@1700 04/29/21 06/13/21 History furosemide 40 mg tablet 40 mg PO QAM 04/29/21 06/13/21 History sennosides 8.6 mg-docusate sodium 1 tab-cap PO QPM 04/29/21 06/13/21 History 50 mg tablet (Senna with Docusate Sodium) ferrous sulfate 325 mg (65 mg 325 mg PO QAM 30 Days #30 tab 05/25/21 06/13/21 Rx iron) tablet,delayed release carvedilol 25 mg tablet 25 mg PO BID 06/13/21 06/13/21 History hydralazine 100 mg tablet 100 mg PO TID 06/13/21 06/13/21 History Patient History Medical History (Updated 06/21/21 @ 11:40 by MAHI Rogers) Abdominal pain, LLQ Acute abdominal pain in left flank CHF (congestive heart failure) Chronic back pain Chronic kidney disease (CKD), stage IV (severe) Diabetes mellitus, type 2 Diverticulitis large intestine Hearing deficit History of kidney stones HTN (hypertension) HTN (hypertension) Hyperlipidemia Kidney cysts LEFT SIDE>BEING MONITORED BY UROLOGY [facility] Morbid obesity with BMI of 40.0-44.9, adult Nocturnal hypoxemia On home oxygen therapy 2L N/C at HS only Osteoarthritis Spinal stenosis Weakness Surgical History H/O: hysterectomy History of arthroscopy of left knee History of bilateral tubal ligation History of cardiac [place] [facility] [place] History of colonoscopy History of cystoscopy History of dilatation and curettage History of esophagogastroduodenoscopy (EGD) History of tooth extraction all teeth Hx of appendectomy Hx of cholecystectomy Nausea and vomiting after administration of anesthetic agent Family History Sister Family history of diabetes mellitus Sister Family history of diabetes mellitus Brother Family history of diabetes mellitus Family history of esophageal cancer Brother Family history of esophageal cancer Father Lung cancer Other No family history of adverse response to anesthesia No significant family history Social History Smoking Status: Never smoker Second Hand Exposure: No; Hx Alcohol Use: No Hx Substance Use: No Preferred Language: Swiss Communication Ability: Effective Cushion Installer Required: No Beliefs That Will Affect Care: None marital status: / Current Living Situation: Family Current Living Situation Comment: WITH SON Other Information That Helps Us Care for You: No Feels Safe at Home: Yes Safety Concerns: Feels Safe At This Time Assistive Devices: Walker Review of Systems Review of Systems: All systems reviewed & are unremarkable except as noted in HPI & below Physical Exam Constitutional: WD/WN, vitals as above Respiratory: normal respiratory effort; no respiratory distress, no labored breathing, no cough and no audible wheezes Cardiovascular: Rate/Rhythm: regular rate; not tachycardic Extremities: no edema Gastrointestinal (Abdomen): normal bowel sounds, soft, nontender, no hepatosplenomegaly Skin: no rashes, warm and dry Results & Data ([facility]) Vital Signs (Past 12 Hours) Vital Signs Temp Pulse Pulse Pulse Resp BP BP 06/14/21 08:04 37.6 C H 107 H 18 174/122 H 06/14/21 07:00 97 H 06/14/21 05:02 37.0 C 99 H 20 176/77 H 06/14/21 02:35 99 H 06/14/21 02:15 37.0 C 104 H 18 204/65 H 06/14/21 01:31 92 H 230/95 H 06/14/21 00:00 95 H 20 206/79 H 06/13/21 23:31 107 H 22 188/98 H 06/13/21 21:10 BP Pulse Ox 06/14/21 08:04 195/81 H 94 06/14/21 07:00 06/14/21 05:02 95 06/14/21 02:35 06/14/21 02:15 96 06/14/21 01:31 97 06/14/21 00:00 97 06/13/21 23:31 97 06/13/21 21:10 95 Laboratory Results 06/14/21 06/14/21 06/14/21 Range/Units 07:43 05:30 05:30 WBC (4.8-10.8) K/uL RBC (4.2-5.4) M/uL Hgb (12.0-16.0) g/dL Hct (37-47) % MCV (80-100) fL MCH (25-34) pg MCHC (32-36) g/dL RDW Std Deviation (36.4-46.3) fL RDW Coeff of Noemy (11.5-14.5) % Plt Count (130-400) K/uL MPV (7.4-10.4) fL Immature Gran % (Auto) % Neut % (Auto) % Lymph % (Auto) % Kay % (Auto) % Eos % (Auto) % Baso % (Auto) % Neut # (Auto) (1.4-6.5) K/uL Lymph # (Auto) (1.2-3.4) K/uL Kay # (Auto) (0.11-0.59) K/uL Eos # (Auto) (0-0.5) K/uL Baso # (Auto) (0-0.2) K/uL Immature Gran # (Auto) (0.00-0.02) K/uL Sodium 140 (136-145) mmol/L Potassium 3.3 L (3.5-5.1) mmol/L Chloride 107 (98-107) mmol/L Carbon Dioxide 26 (21-32) mmol/L Anion Gap 7.0 (3-11) BUN 32 H (7-18) mg/dl Creatinine 1.92 H (0.6-1.2) mg/dl Est Cr Clr Drug Dosing 24.3 Est GFR ( Amer) 26.8 ml/min Est GFR (Non-Af Amer) 23.2 ml/min BUN/Creatinine Ratio 16.8 (10-20) Glucose 187 H (70-99) mg/dl POC Glucose 221 H (70-99) mg/dl Estimat Average Glucose 137 mg/dl Hemoglobin A1c 6.4 H (4.5-5.6) % Lactate (0.4-2.0) mmol/L Calcium 9.1 (8.5-10.1) mg/dl Phosphorus 2.4 L (2.5-4.9) mg/dl Magnesium 2.1 (1.8-2.4) mg/dl Total Bilirubin (0.2-1) mg/dl AST (15-37) U/L ALT (12-78) U/L Alkaline Phosphatase (45-117) U/L Troponin I < 0.015 (0-0.045) ng/ml Total Protein (6.4-8.2) gm/dl Albumin (3.4-5.0) gm/dl Globulin (2.5-4.0) gm/dl Albumin/Globulin Ratio (0.9-2) Lipase (73-393) U/L Urine Color Urine Appearance (Clear) Urine pH (4.5-7.5) Ur Specific [place] (1.000-1.030) Urine Protein (Negative) Urine Glucose (UA) (Negative) Urine Ketones (Negative) Urine Blood (Negative) Urine Nitrite (Negative) Urine Bilirubin (Negative) Urine Urobilinogen (Negative) Ur Leukocyte Esterase (Negative) Urine WBC (Auto) (0-5) /hpf Urine RBC (Auto) (0-4) /hpf U Hyaline Cast (Auto) (0-5) /lpf U Epithel Cells (Auto) (0-5) /lpf Urine Bacteria (Auto) (Negative) Stl C. diff Tox B Gene (Neg) Stl C.difficile Tox A&B (Negative) COVID-19 Eval Order SARS-CoV-2 (PCR) (Negative) 06/14/21 06/13/21 06/13/21 Range/Units 05:30 Unknown Unknown WBC 19.72 H (4.8-10.8) K/uL RBC 3.34 L (4.2-5.4) M/uL Hgb 10.1 L (12.0-16.0) g/dL Hct 31.3 L (37-47) % MCV 93.7 (80-100) fL MCH 30.2 (25-34) pg MCHC 32.3 (32-36) g/dL RDW Std Deviation 53.9 H (36.4-46.3) fL RDW Coeff of [place]ome[place] 15.8 H (11.5-14.5) % Plt Count 306 (130-400) K/uL MPV 9.0 (7.4-10.4) fL Immature Gran % (Auto) 0.2 % Neut % (Auto) 84.9 % Lymph % (Auto) 5.7 % Kay % (Auto) 9.0 % Eos % (Auto) 0.1 % Baso % (Auto) 0.1 % Neut # (Auto) 16.77 H (1.4-6.5) K/uL Lymph # (Auto) 1.13 L (1.2-3.4) K/uL Kay # (Auto) 1.77 H (0.11-0.59) K/uL Eos # (Auto) 0.01 (0-0.5) K/uL Baso # (Auto) 0.01 (0-0.2) K/uL Immature Gran # (Auto) 0.03 H (0.00-0.02) K/uL Sodium (136-145) mmol/L Potassium (3.5-5.1) mmol/L Chloride (98-107) mmol/L Carbon Dioxide (21-32) mmol/L Anion Gap (3-11) BUN (7-18) mg/dl Creatinine (0.6-1.2) mg/dl Est Cr Clr Drug Dosing Est GFR ( Amer) ml/min Est GFR (Non-Af Amer) ml/min BUN/Creatinine Ratio (10-20) Glucose (70-99) mg/dl POC Glucose (70-99) mg/dl Estimat Average Glucose mg/dl Hemoglobin A1c (4.5-5.6) % Lactate (0.4-2.0) mmol/L Calcium (8.5-10.1) mg/dl Phosphorus (2.5-4.9) mg/dl Magnesium (1.8-2.4) mg/dl Total Bilirubin (0.2-1) mg/dl AST (15-37) U/L ALT (12-78) U/L Alkaline Phosphatase (45-117) U/L Troponin I (0-0.045) ng/ml Total Protein (6.4-8.2) gm/dl Albumin (3.4-5.0) gm/dl Globulin (2.5-4.0) gm/dl Albumin/Globulin Ratio (0.9-2) Lipase (73-393) U/L Urine Color Yellow Urine Appearance Clear (Clear) Urine pH 5.5 (4.5-7.5) Ur Specific [place] 1.009 (1.000-1.030) Urine Protein 2+ H (Negative) Urine Glucose (UA) Negative (Negative) Urine Ketones Negative (Negative) Urine Blood Negative (Negative) Urine Nitrite Negative (Negative) Urine Bilirubin Negative (Negative) Urine Urobilinogen Negative (Negative) Ur Leukocyte Esterase Negative (Negative) Urine WBC (Auto) 1-5 (0-5) /hpf Urine RBC (Auto) 0-4 (0-4) /hpf U Hyaline Cast (Auto) 1-5 (0-5) /lpf U Epithel Cells (Auto) 20-30 H (0-5) /lpf Urine Bacteria (Auto) Negative (Negative) Stl C. diff Tox B Gene (Neg) Stl C.difficile Tox A&B (Negative) COVID-19 Eval Order SARS-CoV-2 (PCR) NEGATIVE (Negative) 06/13/21 06/13/21 06/13/21 Range/Units Unknown 22:00 16:58 WBC (4.8-10.8) K/uL RBC (4.2-5.4) M/uL Hgb (12.0-16.0) g/dL Hct (37-47) % MCV (80-100) fL MCH (25-34) pg MCHC (32-36) g/dL RDW Std Deviation (36.4-46.3) fL RDW Coeff of Noemy (11.5-14.5) % Plt Count (130-400) K/uL MPV (7.4-10.4) fL Immature Gran % (Auto) % Neut % (Auto) % Lymph % (Auto) % Kay % (Auto) % Eos % (Auto) % Baso % (Auto) % Neut # (Auto) (1.4-6.5) K/uL Lymph # (Auto) (1.2-3.4) K/uL Kay # (Auto) (0.11-0.59) K/uL Eos # (Auto) (0-0.5) K/uL Baso # (Auto) (0-0.2) K/uL Immature Gran # (Auto) (0.00-0.02) K/uL Sodium (136-145) mmol/L Potassium (3.5-5.1) mmol/L Chloride (98-107) mmol/L Carbon Dioxide (21-32) mmol/L Anion Gap (3-11) BUN (7-18) mg/dl Creatinine (0.6-1.2) mg/dl Est Cr Clr Drug Dosing Est GFR ( Amer) ml/min Est GFR (Non-Af Amer) ml/min BUN/Creatinine Ratio (10-20) Glucose (70-99) mg/dl POC Glucose (70-99) mg/dl Estimat Average Glucose mg/dl Hemoglobin A1c (4.5-5.6) % Lactate 1.1 (0.4-2.0) mmol/L Calcium (8.5-10.1) mg/dl Phosphorus (2.5-4.9) mg/dl Magnesium (1.8-2.4) mg/dl Total Bilirubin (0.2-1) mg/dl AST (15-37) U/L ALT (12-78) U/L Alkaline Phosphatase (45-117) U/L Troponin I (0-0.045) ng/ml Total Protein (6.4-8.2) gm/dl Albumin (3.4-5.0) gm/dl Globulin (2.5-4.0) gm/dl Albumin/Globulin Ratio (0.9-2) Lipase (73-393) U/L Urine Color Urine Appearance (Clear) Urine pH (4.5-7.5) Ur Specific [place] (1.000-1.030) Urine Protein (Negative) Urine Glucose (UA) (Negative) Urine Ketones (Negative) Urine Blood (Negative) Urine Nitrite (Negative) Urine Bilirubin (Negative) Urine Urobilinogen (Negative) Ur Leukocyte Esterase (Negative) Urine WBC (Auto) (0-5) /hpf Urine RBC (Auto) (0-4) /hpf U Hyaline Cast (Auto) (0-5) /lpf U Epithel Cells (Auto) (0-5) /lpf Urine Bacteria (Auto) (Negative) Stl C. diff Tox B Gene Positive Cdiff Gene H (Neg) Stl C.difficile Tox A&B Positive Cdiff Toxin A* (Negative) COVID-19 Eval Order Covid19 at [facility] SARS-CoV-2 (PCR) (Negative) 06/13/21 06/13/21 Range/Units 16:58 16:58 WBC 20.75 H (4.8-10.8) K/uL RBC 3.58 L (4.2-5.4) M/uL Hgb 10.7 L (12.0-16.0) g/dL Hct 32.9 L (37-47) % MCV 91.9 (80-100) fL MCH 29.9 (25-34) pg MCHC 32.5 (32-36) g/dL RDW Std Deviation 53.1 H (36.4-46.3) fL RDW Coeff of Noemy 15.8 H (11.5-14.5) % Plt Count 345 (130-400) K/uL MPV 9.3 (7.4-10.4) fL Immature Gran % (Auto) 0.3 % Neut % (Auto) 88.6 % Lymph % (Auto) 5.3 % Kay % (Auto) 5.4 % Eos % (Auto) 0.3 % Baso % (Auto) 0.1 % Neut # (Auto) 18.36 H (1.4-6.5) K/uL Lymph # (Auto) 1.09 L (1.2-3.4) K/uL Kay # (Auto) 1.13 H (0.11-0.59) K/uL Eos # (Auto) 0.07 (0-0.5) K/uL Baso # (Auto) 0.03 (0-0.2) K/uL Immature Gran # (Auto) 0.07 H (0.00-0.02) K/uL Sodium 139 (136-145) mmol/L Potassium 3.3 L (3.5-5.1) mmol/L Chloride 103 (98-107) mmol/L Carbon Dioxide 24 (21-32) mmol/L Anion Gap 13.0 H (3-11) BUN 36 H (7-18) mg/dl Creatinine 2.01 H (0.6-1.2) mg/dl Est Cr Clr Drug Dosing Not Reportable Est GFR ( Amer) 25.4 ml/min Est GFR (Non-Af Amer) 21.9 ml/min BUN/Creatinine Ratio 18.0 (10-20) Glucose 140 H (70-99) mg/dl POC Glucose (70-99) mg/dl Estimat Average Glucose mg/dl Hemoglobin A1c (4.5-5.6) % Lactate (0.4-2.0) mmol/L Calcium 10.0 (8.5-10.1) mg/dl Phosphorus (2.5-4.9) mg/dl Magnesium (1.8-2.4) mg/dl Total Bilirubin 1.5 H (0.2-1) mg/dl AST 12 L (15-37) U/L ALT 15 (12-78) U/L Alkaline Phosphatase 63 (45-117) U/L Troponin I (0-0.045) ng/ml Total Protein 7.1 (6.4-8.2) gm/dl Albumin 3.9 (3.4-5.0) gm/dl Globulin 3.2 (2.5-4.0) gm/dl Albumin/Globulin Ratio 1.2 (0.9-2) Lipase 107 (73-393) U/L Urine Color Urine Appearance (Clear) Urine pH (4.5-7.5) Ur Specific [place] (1.000-1.030) Urine Protein (Negative) Urine Glucose (UA) (Negative) Urine Ketones (Negative) Urine Blood (Negative) Urine Nitrite (Negative) Urine Bilirubin (Negative) Urine Urobilinogen (Negative) Ur Leukocyte Esterase (Negative) Urine WBC (Auto) (0-5) /hpf Urine RBC (Auto) (0-4) /hpf U Hyaline Cast (Auto) (0-5) /lpf U Epithel Cells (Auto) (0-5) /lpf Urine Bacteria (Auto) (Negative) Stl C. diff Tox B Gene (Neg) Stl C.difficile Tox A&B (Negative) COVID-19 Eval Order SARS-CoV-2 (PCR) (Negative)
[2021-06-14] MEDS: allopurinoL 100 MG TAB PO SCH (12:08)
[2021-06-14] MEDS: POTASSIUM CHLORIDE CRTAB 20 MEQ TABCR PO STA ×2 (12:09→12:48)
[2021-06-14] MEDS: POTASSIUM CHLORIDE / WTR 10 MEQ/100 ML PLCT IV SCH ×4 (13:52→16:58)
[2021-06-14] MEDS: POT PHOSPHATE MONOBASIC W/ SOD TAB PO SCH ×3 (15:08→22:10)
[2021-06-14] MEDS: FAMOTIDINE 20 MG TAB PO SCH (17:55)
--- NOTE | 2021-06-14 19:55 | Hospitalist Progress Note ---
Date of Service June 14, 2021 Assessment & Plan (1) C. difficile colitis: Plan: 85 yo F with PMH of recent admission for diverticulitis status post Cipro and Metro, constipation, UTI, DM, HTN, secondary hyperparathyroidism, osteopenia, kidney cyst, congestive heart failure, hypertensive urgency, left bundle branch block, CKD 4, obesity, heartburn came in 06/13 w/ nausea/vomiting/diarrhea since 1 day [employer]. 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 C. difficile colitis Patient was recently admitted within a month with diverticulitis and was treated with Zosyn followed by Cipro and metronidazole. Admitting CTAP suggestive of mild sigmoid diverticulitis but improved compared to recent admission. Admitting WBC 20.75K with BUN and creatinine 36 and 2.01. BUN/creatinine seems to be her baseline. Admitting C. difficile was positive for gene and toxin Patient started on oral vancomycin 06/14 and IV metronidazole 06/14 GI consulted: Recommended continuing vancomycin and IV Flagyl for now. Upon discharge PO Vancomycin 125 QID for 14 days followed by taper by 125 mg twice daily for 7 days then 125 mg daily for 7 days then every other day for 8 weeks Continue with antiemetics, NPO/advance as tolerated to clear liquids then low residue #. Anemia Stable, iron deficiency anemia c/w FeSO4 daily. #. DM on sliding scale; under goal #. HTN / CAD BP elevated at admission, Per her Dtr. her SBP runs like 160s at home and sometimes 180s as per previous record. BP meds adjusted a/c Cardio Pt told not to use lisinopril d/t worseing kidney function We will consider iv labetalol as needed for systolic >160-170mmHg. c/w daily BMP #. CKD stage 4 Her BUN and Cr at baseline #. DVT prophylaxis: Heparin subcu, SCDs. Disposition: Awaiting PT/OT recommendation, likely need STR. Admission and Anticipated Discharge Date Admission Date: June 13, 2021 Subjective Patient is lying in bed, on room air, appears to be in mild distress, but reports she has improved than what she came in with. Reports continued belly pain but has improved. No nausea or vomiting. Patient is n.p.o. for now. Will advance diet as tolerated. Patient reports for diarrheal movements today, some weakness/dizziness. Denies other review of symptoms. Physical Exam Physical Exam: GENERAL: Alert and oriented x3. Minimal distress, on RA. HEENT: No pallor, no icterus. Pupils equal, round and reactive to light. Oral mucosa moist. NECK: No JVD, no neck masses. HEART: S1 and S2 heard. Regular rate and rhythm. No murmur, no gallop. RESPIRATORY SYSTEM: Normal AP diameter. No accessory muscle use. No wheezing, no crackles. ABDOMEN: Soft, bowel sounds present, LLQ tenderness, no distention. CENTRAL NERVOUS SYSTEM: Alert and oriented x3. No facial droop. Speech is clear. Obeys simple commands. Moves extremities. EXTREMITIES: trace edema, no erythema seen. Results & Data Results & Data ([facility]) Vital Signs (Past 12 Hours) Vital Signs Temp Pulse Pulse Resp BP BP Pulse Ox 06/14/21 15:56 89 06/14/21 15:00 36.7 C 88 18 134/66 92 06/14/21 11:45 37.2 C 90 18 118/60 96 06/14/21 08:04 37.6 C H 107 H 18 174/122 H 195/81 H 94
[2021-06-14] MEDS: ROSUVASTATIN CALCIUM 10 MG TAB PO SCH (22:11)
[2021-06-15] MEDS: RASPBERRY SYRUP 5 ML UDP PO SCH ×4 (00:24→18:30)
[2021-06-15] MEDS: VANCOMYCIN HCL 250 MG/5 ML SOLN PO SCH ×4 (00:24→18:29)
[2021-06-15] MEDS: INSULIN ASPART 100 UNITS/ML 3 ML PEN SC SCH ×5 (00:24→21:07)
[2021-06-15] MEDS: SODIUM CHLORIDE 0.9% 1000ML 1,000 ML IV SCH ×2 (02:42→21:13)
[2021-06-15] MEDS: metroNIDAZOLE 500 MG/100 ML BAG IV SCH ×3 (03:59→21:00)
[2021-06-15] MEDS: ISOSORBIDE DINITRATE 20 MG TAB PO SCH ×3 (06:11→18:31)
[2021-06-15 07:26] LABS: Hematocrit (blood only) 27.7 % (37-47); Hemoglobin 8.8 g/dL (12.0-16.0); Mean Corpuscular Hgb Conc 31.8 g/dL (32-36); Mean Corpuscular Volume 94.5 fL (80-100); Mean Platelet Volume 9.2 fL (7.4-10.4); Platelet Count 265 K/uL (130-400); RDW Coefficient of Variation 16.1 % (11.5-14.5); RDW Standard Deviation 56.4 fL (36.4-46.3); Red Blood Count 2.93 M/uL (4.2-5.4); White Blood Count 11.81 K/uL (4.8-10.8)
[2021-06-15 07:59] LABS: BUN Creatinine Ratio 15.2 (10-20); Bilirubin Direct 0.2 mg/dl (0-0.2); Creatinine Clr Calc Pharmacy 21.8 ml/min; Est GFR (African American) 23.4 ml/min; Est GFR (Non-African American) 20.2 ml/min; Magnesium 2.1 mg/dl (1.8-2.4); Potassium 3.3 mmol/L (3.5-5.1)
[2021-06-15 08:06] LABS: Bilirubin,Total 0.9 mg/dl (0.2-1); Phosphorus 2.3 mg/dl (2.5-4.9); Total Protein 5.7 gm/dl (6.4-8.2)
[2021-06-15] MEDS: carvediloL 25 MG TAB PO SCH ×2 (08:14→21:02)
[2021-06-15] MEDS: hydrALAZINE TAB 50 MG TAB PO SCH ×3 (08:14→21:03)
[2021-06-15] MEDS: ACETAMINOPHEN 500 MG TAB PO SCH ×2 (08:14→21:05)
[2021-06-15] MEDS: ASPIRIN 81 MG ECTAB PO SCH (08:14)
[2021-06-15] MEDS: CYANOCOBALAMIN 500 MCG TABLET (VITAMIN B-12) PO SCH (08:15)
[2021-06-15] MEDS: LIDOCAINE 5% 1 PATCH TD SCH (08:15)
[2021-06-15] MEDS: FOLIC ACID 1 MG TAB PO SCH (08:15)
[2021-06-15] MEDS: HEPARIN SOD 5,000 UNIT/0.5 ML VIAL SQ SCH ×2 (08:16→21:02)
[2021-06-15] MEDS: INSULIN GLARGINE SOLOSTAR 100 UNITS/ML 3 ML PEN SC SCH ×2 (08:17→21:05)
[2021-06-15] MEDS: FERROUS SULFATE 325 MG TAB PO SCH (08:19)
[2021-06-15] MEDS: POT PHOSPHATE MONOBASIC W/ SOD TAB PO SCH ×7 (08:20→21:05)
--- NOTE | 2021-06-15 08:24 | Gastroenterology Progress Note ---
Date of Service June 15, 2021 Assessment & Plan (1) Abdominal pain, lower: Plan: 85 year old female admitted w/ pain, nauesa and diarrhea, CTAP showing improving diverticulitis and stools positive for c.diff. Notes improvement of her discomfort overnight but still passing frequent loose stools. Can add Questran 2 g packet daily Agree with treating c.diff with PO Vancomycin 125 QID for 14 days followed by taper by 125 mg twice daily for 7 days then 125 mg daily for 7 days then every other day for 8 weeks Agree w/ IV flagyl Agree w/ analgesia antiemetics NPO for bowel rest but can advance as tolerated to clear liquids then low residue Will sign off. Thank you for allowing us to participate in the care of this patient. Please call with any acute changes, questions or concerns. Please see addendum below with additional recommendation from my supervising physician. Admission and Anticipated Discharge Date Admission Date: June 13, 2021 Supervising Physician Co-Signing Physician Notes Late entry: patient was seen and examine don 06/15 MAHI Kaufman whose note reflects our findings and plan/. Subjective Feeling improved this AM. Less abd pain. No nausea, vomiting. Still moving bowels. Suggests every 30 minutes. Stools still liquid. Moved bowels 3/4 times overnight, Review of Systems Review of Systems: All systems reviewed & are unremarkable except as noted in HPI & below Physical Exam Constitutional: WD/WN, vitals as above Neck: trachea midline, no thyromegaly Respiratory: normal respiratory effort; no respiratory distress, no labored breathing and does not use accessory muscles Gastrointestinal (Abdomen): normal bowel sounds, soft, nontender, no hepatosplenomegaly Skin: no rashes, warm and dry Results & Data ([facility]) Vital Signs (Past 12 Hours) Vital Signs Temp Pulse Pulse Resp BP Pulse Ox 06/15/21 08:09 36.4 C L 91 H 20 149/73 H 93 06/15/21 03:25 36.6 C 72 20 133/70 97 06/15/21 01:05 96 H 06/14/21 23:05 37.0 C 95 H 20 131/66 95 Laboratory Results 06/15/21 06/15/21 06/15/21 Range/Units 06:51 06:51 06:05 WBC 11.81 H (4.8-10.8) K/uL RBC 2.93 L (4.2-5.4) M/uL Hgb 8.8 L (12.0-16.0) g/dL Hct 27.7 L (37-47) % MCV 94.5 (80-100) fL MCH 30.0 (25-34) pg MCHC 31.8 L (32-36) g/dL RDW Std Deviation 56.4 H (36.4-46.3) fL RDW Coeff of Noemy 16.1 H (11.5-14.5) % Plt Count 265 (130-400) K/uL MPV 9.2 (7.4-10.4) fL Sodium 143 (136-145) mmol/L Potassium 3.3 L (3.5-5.1) mmol/L Chloride 112 H (98-107) mmol/L Carbon Dioxide 23 (21-32) mmol/L Anion Gap 8.0 (3-11) BUN 33 H (7-18) mg/dl Creatinine 2.15 H (0.6-1.2) mg/dl Est Cr Clr Drug Dosing 21.8 ml/min Est GFR ( Amer) 23.4 ml/min Est GFR (Non-Af Amer) 20.2 ml/min BUN/Creatinine Ratio 15.2 (10-20) Glucose 160 H (70-99) mg/dl POC Glucose 170 H (70-99) mg/dl Calcium 9.0 (8.5-10.1) mg/dl Phosphorus 2.3 L (2.5-4.9) mg/dl Magnesium 2.1 (1.8-2.4) mg/dl Total Bilirubin 0.9 D (0.2-1) mg/dl Direct Bilirubin 0.2 (0-0.2) mg/dl AST 13 L (15-37) U/L ALT 10 L (12-78) U/L Alkaline Phosphatase 51 (45-117) U/L Total Protein 5.7 L (6.4-8.2) gm/dl Albumin 3.0 L (3.4-5.0) gm/dl 06/15/21 06/14/21 06/14/21 Range/Units 00:11 17:54 11:43 WBC (4.8-10.8) K/uL RBC (4.2-5.4) M/uL Hgb (12.0-16.0) g/dL Hct (37-47) % MCV (80-100) fL MCH (25-34) pg MCHC (32-36) g/dL RDW Std Deviation (36.4-46.3) fL RDW Coeff of Noemy (11.5-14.5) % Plt Count (130-400) K/uL MPV (7.4-10.4) fL Sodium (136-145) mmol/L Potassium (3.5-5.1) mmol/L Chloride (98-107) mmol/L Carbon Dioxide (21-32) mmol/L Anion Gap (3-11) BUN (7-18) mg/dl Creatinine (0.6-1.2) mg/dl Est Cr Clr Drug Dosing ml/min Est GFR ( Amer) ml/min Est GFR (Non-Af Amer) ml/min BUN/Creatinine Ratio (10-20) Glucose (70-99) mg/dl POC Glucose 161 H 200 H 208 H (70-99) mg/dl Calcium (8.5-10.1) mg/dl Phosphorus (2.5-4.9) mg/dl Magnesium (1.8-2.4) mg/dl Total Bilirubin (0.2-1) mg/dl Direct Bilirubin (0-0.2) mg/dl AST (15-37) U/L ALT (12-78) U/L Alkaline Phosphatase (45-117) U/L Total Protein (6.4-8.2) gm/dl Albumin (3.4-5.0) gm/dl
[2021-06-15] MEDS ORDERED: POTASSIUM CHLORIDE 20 MEQ/15 ML UDC PO ONE (10:30)
[2021-06-15] MEDS: allopurinoL 100 MG TAB PO SCH (11:37)
[2021-06-15] MEDS: FAMOTIDINE 20 MG TAB PO SCH (18:31)
[2021-06-15] MEDS: ROSUVASTATIN CALCIUM 10 MG TAB PO SCH (21:05)
--- NOTE | 2021-06-15 21:10 | Hospitalist Progress Note ---
Date of Service June 15, 2021 Assessment & Plan (1) C. 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 C. difficile colitis Patient was recently admitted within a month with diverticulitis and was treated with Zosyn followed by Cipro and metronidazole. Admitting CTAP suggestive of mild sigmoid diverticulitis but improved compared to recent admission. Admitting WBC 20.75K with BUN and creatinine 36 and 2.01. BUN/creatinine seems to be her baseline. Admitting C. difficile was positive for gene and toxin Patient started on oral vancomycin 06/14 and IV metronidazole 06/14 GI consulted: Recommended continuing vancomycin and IV Flagyl for now. Upon discharge PO Vancomycin 125 QID for 14 days followed by taper by 125 mg twice daily for 7 days then 125 mg daily for 7 days then every other day for 8 weeks Continue with antiemetics, patient tolerating clear liquid diet, advance to low residual diet. Still has diarrhea but frequency has decreased. Continue with supportive care. #. Anemia Stable, iron deficiency anemia c/w FeSO4 daily. #. DM on sliding scale; under goal #. HTN / CAD BP elevated at admission, Per her Dtr. her SBP runs like 160s at home and sometimes 180s as per previous record. BP meds adjusted a/c Cardio in the recent past admission Pt told not to use lisinopril d/t worseing kidney function We will consider iv labetalol as needed for systolic >160-170mmHg. c/w daily BMP #. CKD stage 4 Her BUN and Cr at baseline #. DVT prophylaxis: Heparin subcu, SCDs. Disposition: PT/OT recommending home with family support and possible home heal th. Anticipate discharge in 1 to 2-day when patient starts tolerating regular diet and her diarrhea is resolved. Admission and Anticipated Discharge Date Admission Date: June 13, 2021 Subjective Patient is lying in bed, on room air, NAD. She reports feeling better today. She reports improvement in her belly pain. She has had two bowel movements today, diarrhea-like. No nausea or vomiting. She feels hungry. Denies other review of symptoms. Physical Exam Physical Exam: GENERAL: Alert and oriented x3. NAD, on RA. HEENT: No pallor, no icterus. Pupils equal, round and reactive to light. Oral mucosa moist. NECK: No JVD, no neck masses. HEART: S1 and S2 heard. Regular rate and rhythm. No murmur, no gallop. RESPIRATORY SYSTEM: Normal AP diameter. No accessory muscle use. No wheezing, no crackles. ABDOMEN: Soft, bowel sounds present, LLQ tenderness none, no distention. CENTRAL NERVOUS SYSTEM: Alert and oriented x3. No facial droop. Speech is clear. Obeys simple commands. Moves extremities. EXTREMITIES: trace edema, no erythema seen. Results & Data Results & Data ([facility]) Vital Signs (Past 12 Hours) Vital Signs Temp Pulse Pulse Resp BP BP Pulse Ox 06/15/21 19:51 36.2 C L 92 H 19 166/79 H 96 06/15/21 16:45 87 06/15/21 14:23 36.4 C L 84 20 147/68 H 95 06/15/21 12:19 36.5 C 73 20 127/66 95
[2021-06-15] MEDS ORDERED: FAMOTIDINE SUSP 20 MG/2.5 ML UDP PO STA (23:31)
[2021-06-16] MEDS ORDERED: FAMOTIDINE 20 MG in SYRINGE 3 ML IV ONE
[2021-06-16] MEDS: RASPBERRY SYRUP 5 ML UDP PO SCH ×4 (00:19→17:43)
[2021-06-16] MEDS: VANCOMYCIN HCL 250 MG/5 ML SOLN PO SCH ×4 (00:19→17:51)
[2021-06-16] MEDS: metroNIDAZOLE 500 MG/100 ML BAG IV SCH ×3 (04:33→21:14)
[2021-06-16] MEDS: allopurinoL 100 MG TAB PO SCH (08:16)
[2021-06-16] MEDS: FOLIC ACID 1 MG TAB PO SCH (08:17)
[2021-06-16] MEDS: hydrALAZINE TAB 50 MG TAB PO SCH ×3 (08:17→21:15)
[2021-06-16] MEDS: CYANOCOBALAMIN 500 MCG TABLET (VITAMIN B-12) PO SCH (08:18)
[2021-06-16] MEDS: carvediloL 25 MG TAB PO SCH ×2 (08:19→21:15)
[2021-06-16] MEDS: ASPIRIN 81 MG ECTAB PO SCH (08:19)
[2021-06-16] MEDS: ACETAMINOPHEN 500 MG TAB PO SCH ×2 (08:19→21:15)
[2021-06-16] MEDS: ISOSORBIDE DINITRATE 20 MG TAB PO SCH ×3 (08:20→17:41)
[2021-06-16] MEDS: FERROUS SULFATE 325 MG TAB PO SCH (08:21)
[2021-06-16] MEDS: LIDOCAINE 5% 1 PATCH TD SCH (08:22)
[2021-06-16] MEDS: INSULIN GLARGINE SOLOSTAR 100 UNITS/ML 3 ML PEN SC SCH ×2 (08:23→21:15)
[2021-06-16] MEDS: POT PHOSPHATE MONOBASIC W/ SOD TAB PO SCH ×5 (08:24→21:15)
[2021-06-16] MEDS: INSULIN ASPART 100 UNITS/ML 3 ML PEN SC SCH ×4 (08:24→21:16)
[2021-06-16 08:28] LABS: Hematocrit (blood only) 28.5 % (37-47); Mean Corpuscular Hemoglobin 30.1 pg (25-34); Mean Corpuscular Hgb Conc 31.6 g/dL (32-36); Mean Corpuscular Volume 95.3 fL (80-100); Mean Platelet Volume 9.2 fL (7.4-10.4); Platelet Count 257 K/uL (130-400); RDW Coefficient of Variation 15.9 % (11.5-14.5); RDW Standard Deviation 55.3 fL (36.4-46.3); Red Blood Count 2.99 M/uL (4.2-5.4); White Blood Count 6.02 K/uL (4.8-10.8)
[2021-06-16] MEDS: HEPARIN SOD 5,000 UNIT/0.5 ML VIAL SQ SCH ×2 (08:39→21:15)
[2021-06-16 09:04] LABS: BUN Creatinine Ratio 15.3 (10-20); Calcium 9.4 mg/dl (8.5-10.1); Creatinine Clr Calc Pharmacy 23.6 ml/min; Est GFR (African American) 25.2 ml/min; Est GFR (Non-African American) 21.8 ml/min; Potassium 3.4 mmol/L (3.5-5.1)
[2021-06-16 09:05] LABS: Phosphorus 2.2 mg/dl (2.5-4.9)
--- NOTE | 2021-06-16 10:09 | Electrocardiogram Report ---
Test Reason : Blood Pressure : / mmHG Vent. Rate : 105 BPM Atrial Rate : 105 BPM P-R Int : 186 ms QRS Dur : 094 ms QT Int : 360 ms P-R-T Axes : 055 009 063 degrees QTc Int : 475 ms Sinus tachycardia Otherwise normal ECG When compared with ECG of 29-APR-2021 18:30, No significant change was found Confirmed by Florentino Gomez ([id number]) on 06/16/2021 10:09:24 AM Referred By: REFERRED SELF Confirmed By:Florentino Gomez
[2021-06-16] MEDS ORDERED: POTASSIUM CHLORIDE CRTAB 20 MEQ TABCR PO STA (16:30)
[2021-06-16] MEDS ORDERED: POTASSIUM CHLORIDE CRTAB 20 MEQ TABCR PO SCH (16:30)
--- NOTE | 2021-06-16 16:31 | Hospitalist Progress Note ---
Date of Service June 16, 2021 Assessment & Plan (1) C. 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 C. difficile colitis Patient was recently admitted within a month with diverticulitis and was treated with Zosyn followed by Cipro and metronidazole. Admitting CTAP suggestive of mild sigmoid diverticulitis but improved compared to recent admission. Admitting WBC 20.75K with BUN and creatinine 36 and 2.01. BUN/creatinine seems to be her baseline. Admitting C. difficile was positive for gene and toxin Patient started on oral vancomycin 06/14 and IV metronidazole 06/14 GI consulted: Recommended continuing vancomycin and IV Flagyl for now. Upon discharge PO Vancomycin 125 QID for 14 days followed by taper by 125 mg twice daily for 7 days then 125 mg daily for 7 days then every other day for 8 weeks Today patient remains afebrile. Diarrhea is improving. WBC is within normal limit. Hemodynamically doing okay. Advance diet to solids this morning. We will continue to monitor. #. Anemia Stable, iron deficiency anemia c/w FeSO4 daily. #. DM on sliding scale; under goal #. HTN / CAD BP elevated at admission, Per her Dtr. her SBP runs like 160s at home and sometimes 180s as per previous record. BP meds adjusted a/c Cardio in the recent past admission Pt told not to use lisinopril d/t worseing kidney function We will consider iv labetalol as needed for systolic >160-170mmHg. c/w daily BMP #. CKD stage 4 Her BUN and Cr at baseline #. DVT prophylaxis: Heparin subcu, SCDs. Disposition: PT/OT recommending home with family support and possible home healt h. Anticipate discharge in 1 to 2-day when patient starts tolerating regular diet and her diarrhea is resolved. Admission and Anticipated Discharge Date Admission Date: June 13, 2021 Subjective Patient reports she had a terrible night. States she had a very terrible heartb urn last night which was relieved with Pepcid. States she feels hungry and wants to try solid. Denies any chest pain. Does report some right lower quadrant abdominal discomfort. Diarrhea is okay. Denies any dysuria. Denies any further episodes of nausea or vomiting. Rest of the review of system is negative. Review of Systems Review of Systems: All systems reviewed & are unremarkable except as noted in HPI & below Physical Exam Physical Exam: General: A&Ox3, appear in distress HENT: NCAT, MMM, EOMI Eyes: PERRLA Neck: Supple, normal range of motion CVS: normal rate and rhythm Resp: b/l coarse breath sounds Abdomen: Soft, non-tender Extremities: No c/c/e Neuro: face symmetric, strength grossly equal, no focal deficit Skin: warm and dry, no rashes/lesions/errythema MSK: normal ROM, no joint swelling/erythema Results & Data Results & Data ([facility]) Vital Signs (Past 12 Hours) Vital Signs Temp Pulse Pulse Resp BP Pulse Ox 06/16/21 15:28 36.5 C 73 20 153/68 H 96 06/16/21 15:24 71 06/16/21 11:32 36.7 C 77 20 158/73 H 95 06/16/21 07:47 36.4 C L 73 20 170/82 H 97 06/16/21 07:00 72
[2021-06-16] MEDS: FAMOTIDINE 20 MG TAB PO SCH (17:42)
[2021-06-16] MEDS: ROSUVASTATIN CALCIUM 10 MG TAB PO SCH (21:15)
[2021-06-17] MEDS: RASPBERRY SYRUP 5 ML UDP PO SCH ×5 (00:29→23:58)
[2021-06-17] MEDS: VANCOMYCIN HCL 250 MG/5 ML SOLN PO SCH ×5 (00:29→23:58)
[2021-06-17] MEDS: metroNIDAZOLE 500 MG/100 ML BAG IV SCH ×3 (03:23→20:16)
[2021-06-17] MEDS: ISOSORBIDE DINITRATE 20 MG TAB PO SCH ×3 (06:10→17:27)
[2021-06-17 08:11] LABS: Basophils # (auto) 0.01 K/uL (0-0.2); Basophils % (auto) 0.2 %; Eosinophils # (auto) 0.34 K/uL (0-0.5); Eosinophils % (auto) 6.3 %; Hemoglobin 8.9 g/dL (12.0-16.0); Immature Granulocytes # (auto) 0.03 K/uL (0.00-0.02); Immature Granulocytes % (auto) 0.6 %; Lymphocytes # (auto) 1.01 K/uL (1.2-3.4); Lymphocytes % (auto) 18.7 %; Mean Corpuscular Hemoglobin 30.3 pg (25-34); Mean Corpuscular Hgb Conc 31.8 g/dL (32-36); Mean Corpuscular Volume 95.2 fL (80-100); Mean Platelet Volume 9.5 fL (7.4-10.4); Monocytes # (auto) 0.59 K/uL (0.11-0.59); Monocytes % (auto) 10.9 %; Neutrophils # (auto) 3.41 K/uL (1.4-6.5); Neutrophils % (auto) 63.3 %; Platelet Count 266 K/uL (130-400); RDW Coefficient of Variation 15.7 % (11.5-14.5); RDW Standard Deviation 54.9 fL (36.4-46.3); Red Blood Count 2.94 M/uL (4.2-5.4); White Blood Count 5.39 K/uL (4.8-10.8)
[2021-06-17 08:42] LABS: BUN Creatinine Ratio 15.9 (10-20); Calcium 9.4 mg/dl (8.5-10.1); Creatinine Clr Calc Pharmacy 24.9 ml/min; Est GFR (African American) 26.5 ml/min; Est GFR (Non-African American) 22.9 ml/min; Potassium 3.7 mmol/L (3.5-5.1)
[2021-06-17] MEDS: ASPIRIN 81 MG ECTAB PO SCH (08:44)
[2021-06-17] MEDS: CYANOCOBALAMIN 500 MCG TABLET (VITAMIN B-12) PO SCH (08:44)
[2021-06-17] MEDS: ACETAMINOPHEN 500 MG TAB PO SCH ×2 (08:44→21:40)
[2021-06-17] MEDS: FERROUS SULFATE 325 MG TAB PO SCH (08:44)
[2021-06-17] MEDS: FOLIC ACID 1 MG TAB PO SCH (08:44)
[2021-06-17] MEDS: carvediloL 25 MG TAB PO SCH ×2 (08:44→21:36)
[2021-06-17] MEDS: LIDOCAINE 5% 1 PATCH TD SCH (08:45)
[2021-06-17] MEDS: hydrALAZINE TAB 50 MG TAB PO SCH ×3 (08:45→21:36)
[2021-06-17] MEDS: POT PHOSPHATE MONOBASIC W/ SOD TAB PO SCH ×4 (08:45→21:40)
[2021-06-17] MEDS: INSULIN GLARGINE SOLOSTAR 100 UNITS/ML 3 ML PEN SC SCH ×2 (08:46→21:45)
[2021-06-17] MEDS: INSULIN ASPART 100 UNITS/ML 3 ML PEN SC SCH ×4 (08:46→21:45)
[2021-06-17] MEDS: HEPARIN SOD 5,000 UNIT/0.5 ML VIAL SQ SCH ×2 (08:57→21:46)
[2021-06-17] MEDS: ONDANSETRON INJ 2 MG/ML 2 ML VIAL IV PRN (09:01)
[2021-06-17] MEDS: allopurinoL 100 MG TAB PO SCH (12:46)
--- NOTE | 2021-06-17 14:54 | Hospitalist Progress Note ---
Date of Service June 17, 2021 Assessment & Plan (1) C. 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 C. difficile colitis Patient was recently admitted within a month with diverticulitis and was treated with Zosyn followed by Cipro and metronidazole. Admitting CTAP suggestive of mild sigmoid diverticulitis but improved compared to recent admission. Admitting WBC 20.75K with BUN and creatinine 36 and 2.01. BUN/creatinine seems to be her baseline. Admitting C. difficile was positive for gene and toxin Patient started on oral vancomycin 06/14 and IV metronidazole 06/14 GI consulted: Recommended continuing vancomycin and IV Flagyl for now. Upon discharge PO Vancomycin 125 QID for 14 days followed by taper by 125 mg twice daily for 7 days then 125 mg daily for 7 days then every other day for 8 weeks Today patient remains afebrile. Last bowel movement was yesterday.. WBC is within normal limit. Hemodynamically doing okay. Patient continues to have dry heaves. Will change her diet to full liquid. Zofran as needed for nausea. Will obtain KUB. #. Anemia Stable, iron deficiency anemia c/w FeSO4 daily. #. DM on sliding scale; under goal #. HTN / CAD BP elevated at admission, Per her Dtr. her SBP runs like 160s at home and sometimes 180s as per previous record. BP meds adjusted a/c Cardio in the recent past admission Pt told not to use lisinopril d/t worseing kidney function We will consider iv labetalol as needed for systolic >160-170mmHg. c/w daily BMP #. CKD stage 4 Her BUN and Cr at baseline #. DVT prophylaxis: Heparin subcu, SCDs. Disposition: PT/OT recommending home with family support and possible home health. Anticipate discharge in 1 to 2-day when patient starts tolerating regular diet and her diarrhea is resolved. Admission and Anticipated Discharge Date Admission Date: June 13, 2021 Subjective Patient reports she feels awful. Reports she is having dry heaves. Last bowel movement was yesterday. States she feels bloated. Denies passing any flatus. No episodes of vomiting. Denies any chest pain or shortness of breath. Denies any dysuria. Denies any abdominal pain. Review of Systems Review of Systems: All systems reviewed & are unremarkable except as noted in HPI & below Physical Exam Physical Exam: General: A&Ox3, appear in distress HENT: NCAT, MMM, EOMI Eyes: PERRLA Neck: Supple, normal range of motion CVS: normal rate and rhythm Resp: b/l coarse breath sounds Abdomen: Soft, non-tender Extremities: No c/c/e Neuro: face symmetric, strength grossly equal, no focal deficit Skin: warm and dry, no rashes/lesions/errythema MSK: normal ROM, no joint swelling/erythema Results & Data Results & Data ([facility]) Vital Signs (Past 12 Hours) Vital Signs Temp Pulse Pulse Resp BP Pulse Ox 06/17/21 11:20 36.5 C 80 20 166/77 H 95 06/17/21 08:04 36.6 C 72 20 160/77 H 99 06/17/21 07:34 69 06/17/21 03:09 36.5 C 77 16 126/67 97
--- NOTE | 2021-06-17 15:54 | XRay Report ---
KUB HISTORY: Acute generalized abdominal pain bloated COMPARISON: CT abdomen and pelvis 06/13/2021 FINDINGS: Surgical clip of the abdominal right upper quadrant. Mild gaseous distention of the stomach and transverse colon. Nonobstructive bowel gas pattern. No renal calculi. No ureteral calculi. No p neumoperitoneum or pneumatosis. No fracture. IMPRESSION: Nonobstructive bowel gas pattern. ACT 112: Negative or not required by law. The above report was generated using voice recognition software. It may contain grammatical, syntax o r spelling errors. Electronically signed by: Doug Patel M.D. 06/17/2021 3:53 PM
[2021-06-17] MEDS: FAMOTIDINE 20 MG TAB PO SCH (17:27)
[2021-06-17] MEDS ORDERED: SIMETHICONE 80 MG CHEW PO STA (20:31)
[2021-06-17] MEDS: ROSUVASTATIN CALCIUM 10 MG TAB PO SCH (21:42)
[2021-06-18] MEDS: metroNIDAZOLE 500 MG/100 ML BAG IV SCH ×3 (04:09→20:36)
[2021-06-18] MEDS: RASPBERRY SYRUP 5 ML UDP PO SCH ×4 (05:42→17:20)
[2021-06-18] MEDS: VANCOMYCIN HCL 250 MG/5 ML SOLN PO SCH (05:42)
[2021-06-18] MEDS: hydrALAZINE TAB 50 MG TAB PO SCH ×3 (05:43→20:44)
[2021-06-18] MEDS: ISOSORBIDE DINITRATE 20 MG TAB PO SCH ×4 (06:56→17:20)
[2021-06-18] MEDS: INSULIN ASPART 100 UNITS/ML 3 ML PEN SC SCH ×4 (09:22→20:39)
[2021-06-18] MEDS: carvediloL 25 MG TAB PO SCH ×2 (09:23→20:43)
[2021-06-18] MEDS: LIDOCAINE 5% 1 PATCH TD SCH (09:23)
[2021-06-18] MEDS: ASPIRIN 81 MG ECTAB PO SCH (09:23)
[2021-06-18] MEDS: CYANOCOBALAMIN 500 MCG TABLET (VITAMIN B-12) PO SCH (09:23)
[2021-06-18] MEDS: ACETAMINOPHEN 500 MG TAB PO SCH ×2 (09:23→20:41)
[2021-06-18] MEDS: FERROUS SULFATE 325 MG TAB PO SCH (09:23)
[2021-06-18] MEDS: POT PHOSPHATE MONOBASIC W/ SOD TAB PO SCH ×2 (09:23→12:45)
[2021-06-18] MEDS: FOLIC ACID 1 MG TAB PO SCH (09:23)
[2021-06-18] MEDS: INSULIN GLARGINE SOLOSTAR 100 UNITS/ML 3 ML PEN SC SCH ×2 (09:23→20:39)
[2021-06-18] MEDS: HEPARIN SOD 5,000 UNIT/0.5 ML VIAL SQ SCH ×2 (09:24→20:26)
--- NOTE | 2021-06-18 11:43 | Hospitalist Progress Note ---
Date of Service June 18, 2021 Assessment & Plan (1) C. difficile colitis: Plan: Recent admission for acute diverticulitis one month ago Completed antibiotic course. CT abd pel on 06/13 (this admission) revealed improved diverticulitis and she tested positive for c diff Started on oral vanc and IV flagyl with GI in agreement with this with taper recommended post discharge. Leukocytosis has improved since admission However, clinically in last two days she has no BM, or flatus and is significantly bloated after eating No narcotic use. Concern for ileus vs obstruction-repeat KUB today, yesterday negative. If KUB clear, will consider CT abd pel with IV contrast to evaluate this discomfort further with prolonged bowel infections placing her at risk for complications. NPO for now with sips and chips ok until more information can be gathered. (2) Anemia: Plan: chronic, multifactorial. Hold iron in setting of constipation. (3) DMII (diabetes mellitus, type 2): Plan: At goal on basal bolus insulin here. Cont to follow closely. (4) Obesity: Plan: lifestyle changes recommended (5) Nocturnal hypoxemia: Plan: cont oxygen supplementation as needed. (6) Chronic kidney disease (CKD), stage IV (severe): Plan: chronic, at her baseline. (7) Spinal stenosis: Plan: Chronic, controlled, but her ability to ambulate is impeded by this per her report. PT assessed her while here and ok with return home. (8) DVT prophylaxis: Plan: Heparin FUll Dispo-uncertain, pending improvement in abdominal issues. Constanza Overton DO [facility] Hospitalist Admission and Anticipated Discharge Date Admission Date: June 13, 2021 Subjective 85 yo F admitted with c diff infection Continues on PO vanc and IV flagyl Afebrile overnight No BM in last two days Eating full liquid diet very heavy with cream and dairy Reports extreme bloating, distension, no BM or flatus Feels very uncomfortable Review of Systems Review of Systems: All systems were reviewed and negative except as indicated in HPI above. Physical Exam Physical Exam: CONSTITUTIONAL: obese, vitals as above, generally uncomfortable sitting upright in bedside chair EYES: normal conjunctivae, no scleral icterus ENT: external ear and nose normal, MMM NECK: trachea midline RESPIRATORY: clear to auscultation bilaterally, no crackles, rales or wheezes, normal respiratory effort CARDIOVASCULAR: regular rate and rhythm, S1 and 2 heard without murmurs, gallops or rubs, no JVD, no peripheral edema CHEST: inspection of chest was normal GASTROINTESTINAL: normal bowel sounds, soft, slight distension present, generalized discomfort with palpation but cannot appreciate localized tenderness. especially bloated in the upper abdomen. MUSCULOSKELETAL: strength 5/5 throughout, head is normocephalic and atraumatic SKIN: warm and dry NEUROLOGIC: CN 2-12 grossly intact, normal cognition, normal speech, no tremor PSYCHIATRIC: alert cooperative and oriented to person, place and time. Results & Data Results & Data ([facility]) Vital Signs (Past 12 Hours) Vital Signs Temp Pulse Pulse Resp BP BP Pulse Ox 06/18/21 11:25 36.7 C 74 18 133/54 L 99 06/18/21 08:30 36.8 C 77 16 164/77 H 99 06/18/21 08:08 66 06/18/21 02:57 36.6 C 73 18 166/81 H 97 Medications Administered Current Inpatient Medications Acetaminophen (Acetaminophen 325 Mg Tab) 650 mg PO Q4H PRN PRN Reason: Pain or Fever Stop: 07/14/21 02:19 Acetaminophen (Acetaminophen 500 Mg Tab) 1,000 mg PO BID [facility] Stop: 07/14/21 08:59 Last Admin: 06/18/21 09:23 Dose: 1,000 mg Documented by: Allopurinol (Allopurinol 100 Mg Tab) 200 mg PO DAILY@1200 [facility] Stop: 07/14/21 11:59 Last Admin: 06/17/21 12:46 Dose: 200 mg Documented by: Aspirin (Aspirin 81 Mg Ectab) [facility] [place] Stop: 07/14/21 08:59 Last Admin: 06/18/21 09:23 Dose: 81 mg Documented by: Carvedilol (Carvedilol 25 Mg Tab) 25 mg PO BID [facility] Stop: 07/14/21 08:59 Last Admin: 06/18/21 09:23 Dose: 25 mg Documented by: Cyanocobalamin (Cyanocobalamin 500 Mcg Tablet (Vitamin B-12)) 500 mcg PO QAM [facility] Stop: 07/14/21 08:59 Last Admin: 06/18/21 09:23 Dose: 500 mcg Documented by: Dextrose (Dextrose 50% 50 Ml Syringe) 25 - 50 ml IV UD PRN; Protocol PRN Reason: Hypoglycemia Protocol Stop: 07/14/21 02:59 Diclofenac Sodium (Diclofenac Sod 1% Gel 100 Gm Tube) 4 gm EXT QID PRN PRN Reason: Pain Stop: 07/14/21 02:19 Famotidine (Famotidine 20 Mg Tab) 20 mg PO QPM@1700 [facility] Stop: 07/14/21 16:59 Last Admin: 06/17/21 17:27 Dose: 20 mg Documented by: Ferrous Sulfate (Ferrous Sulfate 325 Mg Tab) 325 mg PO QAM [facility] Stop: 07/14/21 08:59 Last Admin: 06/18/21 09:23 Dose: 325 mg Documented by: Folic Acid (Folic Acid 1 Mg Tab) 1 mg PO QAM [facility] Stop: 07/14/21 08:59 Last Admin: 06/18/21 09:23 Dose: 1 mg Documented by: Glucagon (Glucagon For Inj 1 Mg Vial) 1 mg IM UD PRN; Protocol PRN Reason: Hypoglycemia Protocol Stop: 07/14/21 02:59 Glucose (Glucose 40% Gel 15 Gm Tube) 15 - 30 gm PO UD PRN; Protocol PRN Reason: Hypoglycemia Protocol Stop: 07/14/21 02:59 Glucose (Glucose 10 Tabs/Tube) 4 - 8 tabs PO UD PRN; Protocol PRN Reason: Hypoglycemia Protocol Stop: 07/14/21 02:59 Heparin Sodium (Porcine) (Heparin Sod 5,000 Unit/0.5 Ml Vial) 5,000 units SQ Q12 [facility] Stop: 07/14/21 08:59 Last Admin: 06/18/21 09:24 Dose: Not Given Documented by: Hydralazine HCl (Hydralazine Tab 50 Mg Tab) 100 mg PO TID [facility] Stop: 07/18/21 04:24 Last Admin: 06/18/21 05:43 Dose: 100 mg Documented by: Hydromorphone HCl (Hydromorphone Inj 0.5 Mg/0.5 Ml Syr) 0.5 mg IV Q3H PRN PRN Reason: Pain Stop: 06/28/21 02:19 Metronidazole (Flagyl) 500 mg in 100 mls @ 100 mls/hr IV Q8H [facility] Stop: 06/24/21 03:59 Last Infusion: 06/18/21 05:37 Dose: Infused Documented by: Insulin Aspart (Insulin Aspart 100 Units/Ml 3 Ml Pen) 0 units SC ACHS [facility] Stop: 07/16/21 07:29 Last Admin: 06/18/21 09:22 Dose: Not Given Documented by: Insulin Glargine (Insulin Glargine Solostar 100 Units/Ml 3 Ml Pen) 15 units SC BID [facility] Stop: 07/14/21 08:59 Last Admin: 06/18/21 09:23 Dose: 15 units Documented by: Isosorbide Dinitrate (Isosorbide Dinitrate 20 Mg Tab) 20 mg PO 0700,1200,1700 [facility] Stop: 07/14/21 06:59 Last Admin: 06/18/21 06:56 Dose: 20 mg Documented by: Lidocaine (Lidocaine 5% 1 Patch) 1 patch TD QAM [facility] Stop: 07/14/21 08:59 Last Admin: 06/18/21 09:23 Dose: 1 patch Documented by: Miscellaneous (Remove Lidoderm Patch) 1 ea N/A DAILY@2100 [facility] Stop: 07/14/21 20:59 Last Admin: 06/17/21 21:37 Dose: 1 ea Documented by: Miscellaneous (Carbohydrates For Hypoglycemia ) 15 - 30 gm PO UD PRN PRN Reason: Hypoglycemia Treatment Stop: 07/14/21 02:59 Nitroglycerin (Nitroglycerin Sl 0.4 Mg/Tab Tab) 0.4 mg SL UD PRN PRN Reason: Chest Pain Stop: 07/14/21 02:19 Ondansetron HCl (Ondansetron Inj 2 Mg/Ml 2 Ml Vial) 4 mg IV Q6H PRN PRN Reason: Nausea Stop: 07/14/21 02:19 Last Admin: 06/17/21 09:01 Dose: 4 mg Documented by: Ondansetron HCl (Ondansetron 4 Mg Od Tab) 4 mg PO Q6H PRN PRN Reason: Nausea And Vomiting Stop: 07/14/21 02:55 Potassium Phosphate (Pot Phosphate Monobasic W/ Sod Tab) 1 tab PO QID [facility] Stop: 07/15/21 12:59 Last Admin: 06/18/21 09:23 Dose: 1 tab Documented by: Raspberry (Raspberry Syrup 5 Ml Udp) 5 ml PO Q6 [facility] Stop: 06/28/21 05:59 Last Admin: 06/18/21 05:42 Dose: 5 ml Documented by: Rosuvastatin Calcium (Rosuvastatin Calcium 10 Mg Tab) 10 mg PO QPM [facility] Stop: 07/14/21 20:59 Last Admin: 06/17/21 21:42 Dose: 10 mg Documented by: Vancomycin HCl (Vancomycin Hcl 125 Mg/2.5ml Soln) 125 mg PO Q6 [facility] Stop: 06/28/21 11:59
[2021-06-18] MEDS: allopurinoL 100 MG TAB PO SCH (12:44)
[2021-06-18] MEDS ORDERED: FAMOTIDINE 20 MG in SYRINGE 3 ML IV PRN (12:44)
[2021-06-18] MEDS: VANCOMYCIN HCL 125 MG/2.5ML SOLN PO SCH ×3 (12:45→17:21)
--- NOTE | 2021-06-18 14:09 | XRay Report ---
KUB HISTORY: increased bloating, no BM or flatus COMPARISON: KUB 06/17/2021. FINDINGS: The bowel gas pattern is unremarkable. There are no dilated loops of small bowel to suggest an obstruction. No renal calculi. No ureteral calculi. Calcifications in the deep pelvis likely rep resent phleboliths. Prior cholecystectomy. No pneumoperitoneum or pneumatosis. IMPRESSION: Nonobstructive bowel gas pattern. ACT 112: Negative or not required by law. Electronically signed by: Catrachito Cuenca M.D. 06/18/2021 2:08 PM
--- NOTE | 2021-06-18 17:06 | CT Scan Report ---
ABDOMEN AND PELVIS CT WITHOUT CONTRAST CT DOSE: 1019.54 mGycm HISTORY: worsened distension, bloating, no flatus TECHNIQUE: Multiaxial CT images of the abdomen and pelvis were performed without contrast. A dose lo wering technique was utilized adhering to the principles of ALARA. COMPARISON STUDY: Abdomen and pelvis CT 06/13/2021. FINDINGS: There are small bilateral pleural effusions which have developed in the interval. Bibasilar linear densities consistent with subsegmental atelectasis. No pneumoperitoneum. No pneumatosis. No s uspicious lytic or blastic osseous lesions. Trace ascites is noted. Stable 2 cm hypodense lesion with in the left hepatic lobe. This favors a cyst. Cholecystectomy. The unenhanced pancreas, spleen, and r ight adrenal gland are unremarkable. Stable 2 cm left adrenal myelolipoma. Mild bilateral perinephric edema is again noted. Severe cortical renal thinning, unchanged. Similar-appearing hyperdense left p arapelvic renal cyst measuring 4.3 cm. Calcified plaque within the normal caliber abdominal aorta. No retroperitoneal lymphadenopathy. Subcutaneous gas within the right abdominal wall favors prior medic ation injection. Prior hysterectomy.. Suboptimal evaluation for bowel pathology due to the lack of in travenous and oral contrast. However, there is no evidence for bowel obstruction. Colonic diverticulo sis. No significant change in the resolving mild sigmoid diverticulitis. Mild bladder wall thickening with adjacent inflammatory change. This could represent a cystitis. IMPRESSION: 1. Mild bladder wall thickening with adjacent inflammatory change. This could represent a mild cystit is. Recommend correlation with urinalysis. 2. No significant change in the resolving mild sigmoid diverticulitis. 3. No evidence for bowel obstruction. 4. Small bilateral pleural effusions and trace ascites. 5. Additional findings as described above. ACT 112: Negative or not required by law. Electronically signed by: Catrachito Cuenca M.D. 06/18/2021 5:04 PM
[2021-06-18] MEDS ORDERED: GLYCERIN ADULT 12 SUPP/BOX SUPP PR ONE (17:27)
[2021-06-19] MEDS: VANCOMYCIN HCL 125 MG/2.5ML SOLN PO SCH ×4 (00:56→17:55)
[2021-06-19] MEDS: RASPBERRY SYRUP 5 ML UDP PO SCH ×4 (00:57→17:55)
[2021-06-19] MEDS: metroNIDAZOLE 500 MG/100 ML BAG IV SCH ×3 (04:06→20:14)
[2021-06-19 08:15] LABS: Albumin Level 3.5 gm/dl (3.4-5.0); BUN Creatinine Ratio 15.1 (10-20); Calcium 9.3 mg/dl (8.5-10.1); Creatinine Clr Calc Pharmacy 32.2 ml/min; Est GFR (African American) 36.2 ml/min; Est GFR (Non-African American) 31.2 ml/min; Magnesium 1.9 mg/dl (1.8-2.4); Potassium 3.6 mmol/L (3.5-5.1)
[2021-06-19 08:18] LABS: Albumin Globulin Ratio 1.2 (0.9-2); Globulin 2.8 gm/dl (2.5-4.0); Phosphorus 3.1 mg/dl (2.5-4.9); Total Protein 6.4 gm/dl (6.4-8.2)
[2021-06-19] MEDS: INSULIN ASPART 100 UNITS/ML 3 ML PEN SC SCH ×2 (09:47→12:20)
[2021-06-19] MEDS: LIDOCAINE 5% 1 PATCH TD SCH (09:48)
[2021-06-19] MEDS: ACETAMINOPHEN 500 MG TAB PO SCH ×2 (09:49→20:30)
[2021-06-19] MEDS: ASPIRIN 81 MG ECTAB PO SCH (09:51)
[2021-06-19] MEDS: carvediloL 25 MG TAB PO SCH ×2 (09:51→20:31)
[2021-06-19] MEDS: hydrALAZINE TAB 50 MG TAB PO SCH ×3 (09:52→20:33)
[2021-06-19] MEDS: HEPARIN SOD 5,000 UNIT/0.5 ML VIAL SQ SCH ×2 (09:53→20:23)
[2021-06-19] MEDS: ISOSORBIDE DINITRATE 20 MG TAB PO SCH ×3 (09:53→17:56)
[2021-06-19] MEDS: INSULIN GLARGINE SOLOSTAR 100 UNITS/ML 3 ML PEN SC SCH ×2 (09:59→20:37)
[2021-06-19] MEDS ORDERED: ONDANSETRON INJ 2 MG/ML 2 ML VIAL IV STA (11:25)
[2021-06-19] MEDS ORDERED: SODIUM CHLORIDE 0.9% 1000ML 1,000 ML IV SCH (11:30)
[2021-06-19] MEDS: allopurinoL 100 MG TAB PO SCH (11:41)
[2021-06-19] MEDS: NYSTATIN SUSP 500,000 U/5 ML UDC PO SCH ×3 (13:57→20:38)
--- NOTE | 2021-06-19 14:04 | Hospitalist Progress Note ---
Date of Service June 19, 2021 Assessment & Plan (1) C. difficile colitis: Plan: Recent admission for acute diverticulitis one month ago Completed antibiotic course. CT abd pel on 06/13 (this admission) revealed improved diverticulitis and she tested positive for c diff Started on oral vanc and IV flagyl with GI in agreement with this with taper recommended post discharge. Leukocytosis has improved since admission However, clinically in last two days she has no BM, or flatus and is significantly bloated after eating No narcotic use. Concern for ileus vs obstruction-repeat KUB on 06/18-negative, repeat CT a/p wo contrast-negative for structural abnormality or obstruction/ileus Improved on bowel rest with some BMs overnight and improvement in abdominal exam today With ongoing nausea, cont bowel rest with supportive care. Add IVF (2) Anemia: Plan: chronic, multifactorial. Hold iron in setting of constipation. (3) DMII (diabetes mellitus, type 2): Plan: At goal on basal bolus insulin here. Cont to follow closely. (4) Thrush: Plan: Whitish appearance to tongue today and some issues with swallowing. Will add Nystatin swish and swallow and re-evaluate. (5) Nocturnal hypoxemia: Plan: cont oxygen supplementation as needed. (6) Chronic kidney disease (CKD), stage IV (severe): Plan: chronic, at her baseline. (7) Spinal stenosis: Plan: Chronic, controlled, but her ability to ambulate is impeded by this per her report. PT assessed her while here and ok with return home. (8) Obesity: Plan: lifestyle changes recommended (9) DVT prophylaxis: Plan: Heparin FUll Dispo-uncertain, pending improvement in abdominal issues. Constanza Overton DO [facility] Hospitalist Admission and Anticipated Discharge Date Admission Date: June 13, 2021 Subjective 85 yo F admitted with c diff infection Continues on PO vanc and IV flagyl Afebrile overnight Some small, frequent BMs overnight Remains NPO and appears to be better on this +nausea this am Review of Systems Review of Systems: All systems were reviewed and negative except as indicated in HPI above. Physical Exam Physical Exam: CONSTITUTIONAL: obese, vitals as above, NAD EYES: normal conjunctivae, no scleral icterus ENT: external ear and nose normal, MMM NECK: trachea midline RESPIRATORY: clear to auscultation bilaterally, no crackles, rales or wheezes, normal respiratory effort CARDIOVASCULAR: regular rate and rhythm, S1 and 2 heard without murmurs, gallops or rubs, no JVD, no peripheral edema CHEST: inspection of chest was normal GASTROINTESTINAL: normal bowel sounds, soft, NTND MUSCULOSKELETAL: strength 5/5 throughout, head is normocephalic and atraumatic SKIN: warm and dry NEUROLOGIC: CN 2-12 grossly intact, normal cognition, normal speech, no tremor PSYCHIATRIC: alert cooperative and oriented to person, place and time. Results & Data Results & Data ([facility]) Vital Signs (Past 12 Hours) Vital Signs Temp Pulse Pulse Resp BP BP Pulse Ox 06/19/21 11:44 36.7 C 77 20 148/75 H 92 06/19/21 08:00 74 06/19/21 07:34 36.5 C 78 20 171/82 H 95 06/19/21 02:21 36.5 C 68 18 138/80 98 06/19/21 01:59 77 Laboratory Results [facility] 06/19/21 07:07 Sodium 141 Potassium 3.6 Chloride 112 H Carbon Dioxide 21 BUN 23 H Creatinine 1.50 H D Glucose 131 H Calcium 9.3 Liver Function 06/19/21 Range/Units 07:07 Total Bilirubin 1.0 (0.2-1) mg/dl AST 11 L (15-37) U/L ALT 12 (12-78) U/L Alkaline Phosphatase 51 (45-117) U/L Albumin 3.5 (3.4-5.0) gm/dl Medications Administered Current Inpatient Medications Acetaminophen (Acetaminophen 325 Mg Tab) 650 mg PO Q4H PRN PRN Reason: Pain or Fever Stop: 07/14/21 02:19 Acetaminophen (Acetaminophen 500 Mg Tab) 1,000 mg PO BID [facility] Stop: 07/14/21 08:59 Last Admin: 06/19/21 09:49 Dose: 1,000 mg Documented by: Allopurinol (Allopurinol 100 Mg Tab) 200 mg PO DAILY@1200 [facility] Stop: 07/14/21 11:59 Last Admin: 06/19/21 11:41 Dose: 200 mg Documented by: Aspirin (Aspirin 81 Mg Ectab) 81 mg PO QAM [facility] Stop: 07/14/21 08:59 Last Admin: 06/19/21 09:51 Dose: 81 mg Documented by: Carvedilol (Carvedilol 25 Mg Tab) 25 mg PO BID [facility] Stop: 07/14/21 08:59 Last Admin: 06/19/21 09:51 Dose: 25 mg Documented by: Cyanocobalamin (Cyanocobalamin 500 Mcg Tablet (Vitamin B-12)) 500 mcg PO QAM [facility] Stop: 07/14/21 08:59 Last Admin: 06/18/21 09:23 Dose: 500 mcg Documented by: Dextrose (Dextrose 50% 50 Ml Syringe) 25 - 50 ml IV UD PRN; Protocol PRN Reason: Hypoglycemia Protocol Stop: 07/14/21 02:59 Diclofenac Sodium (Diclofenac Sod 1% Gel 100 Gm Tube) 4 gm EXT QID PRN PRN Reason: Pain Stop: 07/14/21 02:19 Famotidine (Famotidine 20 Mg Tab) 20 mg PO QPM@1700 [facility] Stop: 07/14/21 16:59 Last Admin: 06/17/21 17:27 Dose: 20 mg Documented by: Ferrous Sulfate (Ferrous Sulfate 325 Mg Tab) 325 mg PO QAM [facility] Stop: 07/14/21 08:59 Last Admin: 06/18/21 09:23 Dose: 325 mg Documented by: Folic Acid (Folic Acid 1 Mg Tab) 1 mg PO QAM [facility] Stop: 07/14/21 08:59 Last Admin: 06/18/21 09:23 Dose: 1 mg Documented by: Glucagon (Glucagon For Inj 1 Mg Vial) 1 mg IM UD PRN; Protocol PRN Reason: Hypoglycemia Protocol Stop: 07/14/21 02:59 Glucose (Glucose 40% Gel 15 Gm Tube) 15 - 30 gm PO UD PRN; Protocol PRN Reason: Hypoglycemia Protocol Stop: 07/14/21 02:59 Glucose (Glucose 10 Tabs/Tube) 4 - 8 tabs PO UD PRN; Protocol PRN Reason: Hypoglycemia Protocol Stop: 07/14/21 02:59 Heparin Sodium (Porcine) (Heparin Sod 5,000 Unit/0.5 Ml Vial) 5,000 units SQ Q12 [facility] Stop: 07/14/21 08:59 Last Admin: 06/19/21 09:53 Dose: 5,000 units Documented by: Hydralazine HCl (Hydralazine Tab 50 Mg Tab) 100 mg PO TID [facility] Stop: 07/18/21 04:24 Last Admin: 06/19/21 13:56 Dose: 100 mg Documented by: Hydromorphone HCl (Hydromorphone Inj 0.5 Mg/0.5 Ml Syr) 0.5 mg IV Q3H PRN PRN Reason: Pain Stop: 06/28/21 02:19 Metronidazole (Flagyl) 500 mg in 100 mls @ 100 mls/hr IV Q8H [facility] Stop: 06/24/21 03:59 Last Infusion: 06/19/21 13:58 Dose: Infused Documented by: Famotidine 20 mg/ Syringe 5 mls @ 2.5 mls/min IV Q12H PRN; Protocol PRN Reason: heartburn Stop: 07/18/21 12:44 Sodium Chloride (Nss 1000ml) 1,000 mls @ 100 mls/hr IV .Q10H [facility] Stop: 06/19/21 21:29 Last Admin: 06/19/21 11:40 Dose: 100 mls/hr Documented by: Insulin Aspart (Insulin Aspart 100 Units/Ml 3 Ml Pen) 0 units SC ACHS [facility] Stop: 07/16/21 07:29 Last Admin: 06/19/21 12:20 Dose: Not Given Documented by: Insulin Glargine (Insulin Glargine Solostar 100 Units/Ml 3 Ml Pen) 15 units SC BID [facility] Stop: 07/14/21 08:59 Last Admin: 06/19/21 09:59 Dose: 15 units Documented by: Isosorbide Dinitrate (Isosorbide Dinitrate 20 Mg Tab) 20 mg PO 0700,1200,1700 [facility] Stop: 07/14/21 06:59 Last Admin: 06/19/21 13:57 Dose: 20 mg Documented by: Lidocaine (Lidocaine 5% 1 Patch) 1 patch TD QAM [facility] Stop: 07/14/21 08:59 Last Admin: 06/19/21 09:48 Dose: Not Given Documented by: Miscellaneous (Remove Lidoderm Patch) 1 ea N/A DAILY@2100 [facility] Stop: 07/14/21 20:59 Last Admin: 06/18/21 20:49 Dose: 1 ea Documented by: Miscellaneous (Carbohydrates For Hypoglycemia ) 15 - 30 gm PO UD PRN PRN Reason: Hypoglycemia Treatment Stop: 07/14/21 02:59 Nitroglycerin (Nitroglycerin Sl 0.4 Mg/Tab Tab) 0.4 mg SL UD PRN PRN Reason: Chest Pain Stop: 07/14/21 02:19 Nystatin (Nystatin Susp 500,000 U/5 Ml Udc) 5 ml PO QID [facility] Stop: 06/29/21 12:59 Last Admin: 06/19/21 13:57 Dose: 5 ml Documented by: Ondansetron HCl (Ondansetron Inj 2 Mg/Ml 2 Ml Vial) 4 mg IV Q6H PRN PRN Reason: Nausea Stop: 07/14/21 02:19 Last Admin: 06/17/21 09:01 Dose: 4 mg Documented by: Ondansetron HCl (Ondansetron 4 Mg Od Tab) 4 mg PO Q6H PRN PRN Reason: Nausea And Vomiting Stop: 07/14/21 02:55 Polyethylene Glycol (Polyethylene (Miralax) 17 Gm Pack) 17 gm PO BID PRN PRN Reason: Constipation Stop: 07/18/21 17:28 Raspberry (Raspberry Syrup 5 Ml Udp) 5 ml PO Q6 [facility] Stop: 06/28/21 05:59 Last Admin: 06/19/21 11:43 Dose: 5 ml Documented by: Rosuvastatin Calcium (Rosuvastatin Calcium 10 Mg Tab) 10 mg PO QPM [facility] Stop: 07/14/21 20:59 Last Admin: 06/17/21 21:42 Dose: 10 mg Documented by: Vancomycin HCl (Vancomycin Hcl 125 Mg/2.5ml Soln) 125 mg PO Q6 [facility] Stop: 06/28/21 11:59 Last Admin: 06/19/21 11:43 Dose: 125 mg Documented by:
[2021-06-19] MEDS ORDERED: Nursing to Pharmacy Communication SCH (17:45)
[2021-06-19] MEDS: ONDANSETRON INJ 2 MG/ML 2 ML VIAL IV PRN (17:54)
[2021-06-19] MEDS: FAMOTIDINE 20 MG TAB PO SCH (17:56)
[2021-06-19] MEDS ORDERED: cloNIDine HCL 0.1 MG TAB PO ONE (22:04)
[2021-06-20] MEDS: RASPBERRY SYRUP 5 ML UDP PO SCH ×5 (01:00→23:20)
[2021-06-20] MEDS: VANCOMYCIN HCL 125 MG/2.5ML SOLN PO SCH ×5 (01:00→23:20)
[2021-06-20] MEDS: metroNIDAZOLE 500 MG/100 ML BAG IV SCH ×3 (04:49→20:56)
[2021-06-20] MEDS: INSULIN ASPART 100 UNITS/ML 3 ML PEN SC SCH ×5 (05:45→18:32)
[2021-06-20] MEDS: ISOSORBIDE DINITRATE 20 MG TAB PO SCH ×3 (06:11→18:28)
[2021-06-20] MEDS: ACETAMINOPHEN 500 MG TAB PO SCH ×2 (09:32→20:54)
[2021-06-20] MEDS: LIDOCAINE 5% 1 PATCH TD SCH (09:34)
[2021-06-20] MEDS: carvediloL 25 MG TAB PO SCH ×2 (09:37→20:54)
[2021-06-20] MEDS: hydrALAZINE TAB 50 MG TAB PO SCH ×3 (09:39→20:54)
[2021-06-20] MEDS: ASPIRIN 81 MG ECTAB PO SCH (09:40)
[2021-06-20] MEDS: NYSTATIN SUSP 500,000 U/5 ML UDC PO SCH ×4 (09:41→20:55)
[2021-06-20] MEDS: HEPARIN SOD 5,000 UNIT/0.5 ML VIAL SQ SCH ×2 (09:42→20:56)
[2021-06-20] MEDS: INSULIN GLARGINE SOLOSTAR 100 UNITS/ML 3 ML PEN SC SCH ×2 (10:29→20:57)
[2021-06-20] MEDS ORDERED: CHLORASEPTIC 1.4% SOLN 180 ML BTL MT PRN (10:49)
[2021-06-20] MEDS ORDERED: SODIUM CHLORIDE 0.65% NA SOLN 45 ML (OCEAN) PRN (10:49)
[2021-06-20] MEDS: POLYETHYLENE (MIRALAX) 17 GM PACK PO PRN (11:03)
[2021-06-20] MEDS: allopurinoL 100 MG TAB PO SCH (12:44)
[2021-06-20] MEDS: ONDANSETRON INJ 2 MG/ML 2 ML VIAL IV PRN ×2 (17:24→23:24)
[2021-06-20] MEDS: FAMOTIDINE 20 MG TAB PO SCH (18:34)
[2021-06-20] MEDS ORDERED: GLYCERIN ADULT 12 SUPP/BOX SUPP PR ONE (18:41)
[2021-06-20] MEDS: DOCUSATE SODIUM/SENNA 50/8.6MG TAB PO PRN (18:46)
[2021-06-21] MEDS: INSULIN ASPART 100 UNITS/ML 3 ML PEN SC SCH ×5 (00:10→22:12)
[2021-06-21] MEDS: metroNIDAZOLE 500 MG/100 ML BAG IV SCH ×2 (05:10→11:58)
[2021-06-21] MEDS: VANCOMYCIN HCL 125 MG/2.5ML SOLN PO SCH ×4 (06:17→23:31)
[2021-06-21] MEDS: ISOSORBIDE DINITRATE 20 MG TAB PO SCH ×3 (06:17→17:35)
[2021-06-21] MEDS: RASPBERRY SYRUP 5 ML UDP PO SCH ×4 (06:17→23:31)
[2021-06-21] MEDS: ASPIRIN 81 MG ECTAB PO SCH (09:53)
[2021-06-21] MEDS: carvediloL 25 MG TAB PO SCH ×2 (09:54→22:00)
[2021-06-21] MEDS: hydrALAZINE TAB 50 MG TAB PO SCH ×3 (09:54→21:59)
[2021-06-21] MEDS: ACETAMINOPHEN 500 MG TAB PO SCH ×2 (09:55→22:09)
[2021-06-21] MEDS: LIDOCAINE 5% 1 PATCH TD SCH (09:56)
[2021-06-21] MEDS: NYSTATIN SUSP 500,000 U/5 ML UDC PO SCH ×4 (09:57→21:59)
[2021-06-21] MEDS: HEPARIN SOD 5,000 UNIT/0.5 ML VIAL SQ SCH ×2 (10:00→22:00)
[2021-06-21] MEDS: INSULIN GLARGINE SOLOSTAR 100 UNITS/ML 3 ML PEN SC SCH ×2 (10:10→22:12)
[2021-06-21 10:32] LABS: Hemoglobin 9.2 g/dL (12.0-16.0); Mean Corpuscular Hemoglobin 30.2 pg (25-34); Mean Corpuscular Hgb Conc 31.7 g/dL (32-36); Mean Corpuscular Volume 95.1 fL (80-100); Mean Platelet Volume 9.5 fL (7.4-10.4); Platelet Count 268 K/uL (130-400); RDW Standard Deviation 54.8 fL (36.4-46.3); Red Blood Count 3.05 M/uL (4.2-5.4); White Blood Count 6.89 K/uL (4.8-10.8)
[2021-06-21 10:49] LABS: Albumin Level 3.4 gm/dl (3.4-5.0); BUN Creatinine Ratio 10.7 (10-20); Calcium 9.2 mg/dl (8.5-10.1); Creatinine Clr Calc Pharmacy 32.2 ml/min; Est GFR (African American) 36.2 ml/min; Est GFR (Non-African American) 31.2 ml/min; Magnesium 1.9 mg/dl (1.8-2.4); Potassium 3.7 mmol/L (3.5-5.1)
[2021-06-21 10:54] LABS: Albumin Globulin Ratio 1.4 (0.9-2); Bilirubin,Total 0.9 mg/dl (0.2-1); Globulin 2.5 gm/dl (2.5-4.0); Phosphorus 2.5 mg/dl (2.5-4.9); Total Protein 5.9 gm/dl (6.4-8.2)
--- NOTE | 2021-06-21 11:37 | Gastroenterology Progress Note ---
Date of Service June 21, 2021 Assessment & Plan (1) C. difficile colitis: (2) Diverticulitis large intestine w/o perforation or abscess w/o bleeding: Plan: Pt is a 85 y/o female w Cdiff infection, sigmoid diverticulitis re-evaluated for persistent n/v relieved w Zofran. - ? Flagyl side effect. Consider DC'ing this med and use Augmentin for diverticulitis treatment - Continue Vancomycin as prescribed for Cdiff - Zofran prn n/v - Consider repeating UA + urine culture to r/o UTI (cystitis seen on CT) - Advance diet as tolerated. She would like to try crackers today which is fine from our standpoint as long as she tolerates it - Pls recall GI prn Admission and Anticipated Discharge Date Admission Date: June 13, 2021 Supervising Physician Co-Signing Physician Notes Agree with further plan of care as per Chantel's assessment and plan. Subjective GI asked to re-eval pt for persistent n/v symptoms over the weekend. Hx of Cdiff on Vancomycin. Hx of sigmoid diverticulitis on Flagyl CT abd/pelvis 3 days ago w/o signs of bowel obstruction, resolving mild sigmoid diverticulitis Pt reports no abd pain but does have persistent nausea, relieved w Zofran. Last BM yesterday, small amt. Review of Systems Review of Systems: All systems reviewed & are unremarkable except as noted in HPI & below Physical Exam Constitutional: WD/WN, vitals as above well groomed, cooperative and comfortable Eyes: PERRL, conjunctivae normal, anicteric sclerae ENMT: external ear and nose normal, oropharynx normal Respiratory: normal respiratory effort, lungs clear to auscultation Cardiovascular: RRR, no murmur, no edema Gastrointestinal (Abdomen): normal bowel sounds, soft, nontender, no hepatosplenomegaly Skin: no rashes, warm and dry no jaundice Psychiatric: A+Ox3, euthymic affect Lymphatic: no lymphedema Results & Data ([facility]) Vital Signs (Past 12 Hours) Vital Signs Temp Pulse Pulse Resp BP BP Pulse Ox 06/21/21 09:51 36.7 C 77 18 164/81 H 100 06/21/21 07:30 36.5 C 70 16 161/72 H 99 06/21/21 06:15 70 158/78 H
[2021-06-21] MEDS: allopurinoL 100 MG TAB PO SCH (11:52)
[2021-06-21] MEDS ORDERED: Nursing to Pharmacy Communication SCH (14:30)
[2021-06-21] MEDS ORDERED: DOCUSATE SODIUM/SENNA 50/8.6MG TAB PO ONE (15:49)
--- NOTE | 2021-06-21 15:51 | Hospitalist Progress Note ---
Date of Service June 21, 2021 Assessment & Plan (1) C. difficile colitis: Plan: Recent admission for acute diverticulitis one month ago Completed antibiotic course. CT abd pel on 06/13 (this admission) revealed improved diverticulitis and she tested positive for c diff Started on oral vanc and IV flagyl with GI in agreement with this with taper recommended post discharge. Leukocytosis has improved since admission Despite no narcotic use, she began having blaoting, persistent nausea and abdominal discomfort as well as constipation. Concern for ileus vs obstruction-repeat KUB on 06/18-negative, repeat CT a/p wo contrast-negative for structural abnormality or obstruction/ileus Improved on bowel rest with some BMs overnight and improvement in abdominal exam Stopped flagyl in hopes this would help. Will monitor. (2) Anemia: Plan: chronic, multifactorial. Hold iron in setting of constipation. (3) DMII (diabetes mellitus, type 2): Plan: At goal on basal bolus insulin here. Cont to follow closely. (4) Thrush: Plan: Cont nystatin. (5) Nocturnal hypoxemia: Plan: cont oxygen supplementation as needed. (6) Chronic kidney disease (CKD), stage IV (severe): Plan: chronic, at her baseline. (7) Spinal stenosis: Plan: Chronic, controlled, but her ability to ambulate is impeded by this per her report. PT assessed her while here and ok with return home. (8) Obesity: Plan: lifestyle changes recommended (9) DVT prophylaxis: Plan: Heparin FUll Dispo-uncertain, pending improvement in abdominal issues. Constanza Overton DO [facility] Hospitalist Admission and Anticipated Discharge Date Admission Date: June 13, 2021 Subjective 85 yo F admitted with c diff infection, persistent having constipation and nausea issues with persistent bloating and poor tolerance to food. Flagyl considered possible culprit to cause symptoms and this was stopped. Afebrile overnight Some small, frequent BMs overnight Started on a diet and seems to be tolerating this so far. Review of Systems Review of Systems: At least ten systems were reviewed and negative except as indicated in HPI above. Physical Exam Physical Exam: CONSTITUTIONAL: obese, vitals as above, NAD EYES: normal conjunctivae, no scleral icterus ENT: external ear and nose normal, MMM NECK: trachea midline RESPIRATORY: clear to auscultation bilaterally, no crackles, rales or wheezes, normal respiratory effort CARDIOVASCULAR: regular rate and rhythm, S1 and 2 heard without murmurs, gallops or rubs, no JVD, no peripheral edema CHEST: inspection of chest was normal GASTROINTESTINAL: normal bowel sounds, soft, NTND, some discomfort from the "gas" and "bloating" that is present. MUSCULOSKELETAL: strength 5/5 throughout, head is normocephalic and atraumatic SKIN: warm and dry NEUROLOGIC: CN 2-12 grossly intact, normal cognition, normal speech, no tremor PSYCHIATRIC: alert cooperative and oriented to person, place and time. Results & Data Results & Data ([facility]) Vital Signs (Past 12 Hours) Vital Signs Temp Pulse Pulse Pulse Resp BP BP 06/21/21 14:51 36.4 C L 76 16 143/71 H 06/21/21 14:22 79 146/69 H 06/21/21 11:50 77 150/74 H 06/21/21 09:51 36.7 C 77 18 164/81 H 06/21/21 07:30 36.5 C 70 16 161/72 H 06/21/21 06:15 70 158/78 H Pulse Ox 06/21/21 14:51 96 06/21/21 14:22 06/21/21 11:50 06/21/21 09:51 100 06/21/21 07:30 99 06/21/21 06:15 Laboratory Results Short CBC 06/21/21 Range/Units 10:12 WBC 6.89 (4.8-10.8) K/uL Hgb 9.2 L (12.0-16.0) g/dL Hct 29.0 L (37-47) % Plt Count 268 (130-400) K/uL BMP 06/21/21 10:12 Sodium 142 Potassium 3.7 Chloride 113 H Carbon Dioxide 21 BUN 16 Creatinine 1.50 H Glucose 130 H Calcium 9.2 Liver Function 06/21/21 Range/Units 10:12 Total Bilirubin 0.9 (0.2-1) mg/dl AST 8 L (15-37) U/L ALT 11 L (12-78) U/L Alkaline Phosphatase 47 (45-117) U/L Albumin 3.4 (3.4-5.0) gm/dl Medications Administered Current Inpatient Medications Acetaminophen (Acetaminophen 325 Mg Tab) 650 mg PO Q4H PRN PRN Reason: Pain or Fever Stop: 07/14/21 02:19 Acetaminophen (Acetaminophen 500 Mg Tab) 1,000 mg PO BID [facility] Stop: 07/14/21 08:59 Last Admin: 06/21/21 09:55 Dose: 1,000 mg Documented by: Allopurinol (Allopurinol 100 Mg Tab) 200 mg PO DAILY@1200 [facility] Stop: 07/14/21 11:59 Last Admin: 06/21/21 11:52 Dose: 200 mg Documented by: Aspirin (Aspirin 81 Mg Ectab) [facility] Stop: 07/14/21 08:59 Last Admin: 06/21/21 09:53 Dose: 81 mg Documented by: Carvedilol (Carvedilol 25 Mg Tab) 25 mg PO BID [facility] Stop: 07/14/21 08:59 Last Admin: 06/21/21 09:54 Dose: 25 mg Documented by: Cyanocobalamin (Cyanocobalamin 500 Mcg Tablet (Vitamin B-12)) 500 mcg PO [facility] Stop: 07/14/21 08:59 Last Admin: 06/18/21 09:23 Dose: 500 mcg Documented by: Dextrose (Dextrose 50% 50 Ml Syringe) 25 - 50 ml IV UD PRN; Protocol PRN Reason: Hypoglycemia Protocol Stop: 07/14/21 02:59 Diclofenac Sodium (Diclofenac Sod 1% Gel 100 Gm Tube) 4 gm EXT QID PRN PRN Reason: Pain Stop: 07/14/21 02:19 Famotidine (Famotidine 20 Mg Tab) 20 mg PO QPM@1700 [facility] Stop: 07/14/21 16:59 Last Admin: 06/20/21 18:34 Dose: 20 mg Documented by: Ferrous Sulfate (Ferrous Sulfate 325 Mg Tab) 325 mg [facility] Stop: 07/14/21 08:59 Last Admin: 06/18/21 09:23 Dose: 325 mg Documented by: Folic Acid (Folic Acid 1 Mg Tab) 1 mg PO [facility] Stop: 07/14/21 08:59 Last Admin: 06/18/21 09:23 Dose: 1 mg Documented by: Glucagon (Glucagon For Inj 1 Mg Vial) 1 mg IM UD PRN; Protocol PRN Reason: Hypoglycemia Protocol Stop: 07/14/21 02:59 Glucose (Glucose 40% Gel 15 Gm Tube) 15 - 30 gm PO UD PRN; Protocol PRN Reason: Hypoglycemia Protocol Stop: 07/14/21 02:59 Glucose (Glucose 10 Tabs/Tube) 4 - 8 tabs PO UD PRN; Protocol PRN Reason: Hypoglycemia Protocol Stop: 07/14/21 02:59 Heparin Sodium (Porcine) (Heparin Sod 5,000 Unit/0.5 Ml Vial) 5,000 units SQ Q12 [facility] Stop: 07/14/21 08:59 Last Admin: 06/21/21 10:00 Dose: 5,000 units Documented by: Hydralazine HCl (Hydralazine Tab 50 Mg Tab) 100 mg PO TID [facility] Stop: 07/18/21 04:24 Last Admin: 06/21/21 14:23 Dose: 100 mg Documented by: Promethazine HCl 12.5 mg/ (Sodium Chloride) 50.5 mls @ 202 mls/hr IV Q6H PRN PRN Reason: Nausea And Vomiting Stop: 07/20/21 18:40 Insulin Aspart (Insulin Aspart 100 Units/Ml 3 Ml Pen) 0 units SC ACHS [facility] Stop: 07/21/21 16:29 Insulin Glargine (Insulin Glargine Solostar 100 Units/Ml 3 Ml Pen) 15 units SC BID [facility] Stop: 07/14/21 08:59 Last Admin: 06/21/21 10:10 Dose: Not Given Documented by: Isosorbide Dinitrate (Isosorbide Dinitrate 20 Mg Tab) 20 mg PO 0700,1200,1700 [facility] Stop: 07/14/21 06:59 Last Admin: 06/21/21 11:51 Dose: 20 mg Documented by: Lidocaine (Lidocaine 5% 1 Patch) 1 patch TD QAM [facility] Stop: 07/14/21 08:59 Last Admin: 06/21/21 09:56 Dose: Not Given Documented by: Miscellaneous (Remove Lidoderm Patch) 1 ea N/A DAILY@2100 [facility] Stop: 07/14/21 20:59 Last Admin: 06/20/21 20:56 Dose: Not Given Documented by: Miscellaneous (Carbohydrates For Hypoglycemia ) 15 - 30 gm PO UD PRN PRN Reason: Hypoglycemia Treatment Stop: 07/14/21 02:59 Nitroglycerin (Nitroglycerin Sl 0.4 Mg/Tab Tab) 0.4 mg SL UD PRN PRN Reason: Chest Pain Stop: 07/14/21 02:19 Nystatin (Nystatin Susp 500,000 U/5 Ml Udc) 5 ml PO QID [facility] Stop: 06/29/21 12:59 Last Admin: 06/21/21 13:29 Dose: 5 ml Documented by: Ondansetron HCl (Ondansetron Inj 2 Mg/Ml 2 Ml Vial) 4 mg IV Q6H PRN PRN Reason: Nausea Stop: 07/14/21 02:19 Last Admin: 06/20/21 23:24 Dose: 4 mg Documented by: Ondansetron HCl (Ondansetron 4 Mg Od Tab) 4 mg PO Q6H PRN PRN Reason: Nausea And Vomiting Stop: 07/14/21 02:55 Phenol (Chloraseptic 1.4% Soln 180 Ml Btl) 2 sprays MT QID PRN PRN Reason: sore throat Stop: 07/20/21 10:48 Polyethylene Glycol (Polyethylene (Miralax) 17 Gm Pack) 17 gm PO BID PRN PRN Reason: Constipation Stop: 07/18/21 17:28 Last Admin: 06/20/21 11:03 Dose: 17 gm Documented by: Raspberry (Raspberry Syrup 5 Ml Udp) 5 ml PO Q6 [facility] Stop: 06/28/21 05:59 Last Admin: 06/21/21 11:48 Dose: 5 ml Documented by: Rosuvastatin Calcium (Rosuvastatin Calcium 10 Mg Tab) 10 mg PO QPM [facility] Stop: 07/14/21 20:59 Last Admin: 06/17/21 21:42 Dose: 10 mg Documented by: Senna/Docusate Sodium (Docusate Sodium/Senna 50/8.6mg Tab) 1 tab PO HS PRN PRN Reason: constipation Stop: 07/20/21 20:59 Senna/Docusate Sodium (Docusate Sodium/Senna 50/8.6mg Tab) 1 tab PO ONE ONE Stop: 06/21/21 15:50 Sodium Chloride (Sodium Chloride 0.65% Na Soln 45 Ml ([place])) 2 sprays NA QID PRN PRN Reason: dry nose Stop: 07/20/21 10:48 Vancomycin HCl (Vancomycin Hcl 125 Mg/2.5ml Soln) 125 mg PO Q6 [facility] Stop: 06/28/21 11:59 Last Admin: 06/21/21 11:48 Dose: 125 mg Documented by:
[2021-06-21] MEDS: FAMOTIDINE 20 MG TAB PO SCH (17:40)
[2021-06-22] MEDS: ONDANSETRON INJ 2 MG/ML 2 ML VIAL IV PRN ×2 (03:23→12:24)
[2021-06-22] MEDS: VANCOMYCIN HCL 125 MG/2.5ML SOLN PO SCH ×3 (06:08→19:10)
[2021-06-22] MEDS: RASPBERRY SYRUP 5 ML UDP PO SCH ×3 (06:09→19:11)
[2021-06-22] MEDS: ISOSORBIDE DINITRATE 20 MG TAB PO SCH ×3 (06:09→17:53)
[2021-06-22] MEDS: ASPIRIN 81 MG ECTAB PO SCH (07:33)
[2021-06-22] MEDS: carvediloL 25 MG TAB PO SCH ×2 (07:34→21:29)
[2021-06-22] MEDS: hydrALAZINE TAB 50 MG TAB PO SCH ×3 (07:34→21:29)
[2021-06-22] MEDS: NYSTATIN SUSP 500,000 U/5 ML UDC PO SCH ×4 (07:34→21:29)
[2021-06-22] MEDS: HEPARIN SOD 5,000 UNIT/0.5 ML VIAL SQ SCH ×2 (07:35→21:30)
[2021-06-22] MEDS: LIDOCAINE 5% 1 PATCH TD SCH (07:35)
[2021-06-22] MEDS: ACETAMINOPHEN 500 MG TAB PO SCH ×2 (07:52→21:56)
[2021-06-22] MEDS: INSULIN GLARGINE SOLOSTAR 100 UNITS/ML 3 ML PEN SC SCH ×2 (08:22→21:21)
[2021-06-22] MEDS: INSULIN ASPART 100 UNITS/ML 3 ML PEN SC SCH ×4 (08:23→21:21)
[2021-06-22] MEDS: allopurinoL 100 MG TAB PO SCH (12:13)
[2021-06-22] MEDS: DOCUSATE SODIUM/SENNA 50/8.6MG TAB PO PRN (13:04)
[2021-06-22] MEDS ORDERED: GLYCERIN ADULT 12 SUPP/BOX SUPP PR ONE (13:30)
[2021-06-22] MEDS: PROMETHAZINE HCL 12.5 MG in SODIUM CHLORIDE 0.9% 50 ML IV PRN (17:30)
[2021-06-22] MEDS: FAMOTIDINE 20 MG TAB PO SCH (17:52)
[2021-06-22] MEDS: SODIUM CHLORIDE 0.9% 1000ML 1,000 ML IV SCH (18:42)
--- NOTE | 2021-06-22 18:45 | Hospitalist Progress Note ---
Date of Service June 22, 2021 Assessment & Plan (1) C. difficile colitis: Plan: Recent admission for acute diverticulitis one month ago Completed antibiotic course. CT abd pel on 06/13 (this admission) revealed improved diverticulitis and she tested positive for c diff Started on oral vanc and IV flagyl with GI in agreement with this with taper recommended post discharge. Leukocytosis has improved since admission Despite no narcotic use, she began having blaoting, persistent nausea and abdominal discomfort as well as constipation. Concern for ileus vs obstruction-repeat KUB on 06/18-negative, repeat CT a/p wo contrast-negative for structural abnormality or obstruction/ileus Improved on bowel rest with some BMs overnight and improvement in abdominal exam Stopped flagyl in hopes this would help. So far she is still having significant nausea with eating--started ivf and probiotics today. Will recall GI yet again to reassess. ?diabetic gastroparesis (2) Anemia: Plan: chronic, multifactorial. Hold iron in setting of constipation. (3) DMII (diabetes mellitus, type 2): Plan: At goal on basal bolus insulin here. Cont to follow closely. (4) Thrush: Plan: Cont nystatin. (5) Nocturnal hypoxemia: Plan: cont oxygen supplementation as needed. (6) Chronic kidney disease (CKD), stage IV (severe): Plan: chronic, at her baseline. (7) Spinal stenosis: Plan: Chronic, controlled, but her ability to ambulate is impeded by this per her report. PT assessed her while here and ok with return home. Encouraged ambulation with her walker to help move bowels. (8) Obesity: Plan: lifestyle changes recommended (9) DVT prophylaxis: Plan: Heparin FUll Dispo-uncertain, pending improvement in abdominal issues. Constanza Overton DO [facility] Hospitalist Admission and Anticipated Discharge Date Admission Date: June 13, 2021 Subjective 85 yo F admitted with c diff infection, persistent having constipation and nausea issues with persistent bloating and poor tolerance to food. Flagyl considered possible culprit to cause symptoms and this was stopped. Afebrile overnight Some small, frequent BMs overnight but doesn't feel she is completely evacuating. Tolerating a diet somewhat Still having intermittent nausea as day progressed IVF started Probiotic started Review of Systems Review of Systems: At least ten systems were reviewed and negative except as indicated in HPI above. Physical Exam Physical Exam: CONSTITUTIONAL: obese, vitals as above, NAD EYES: normal conjunctivae, no scleral icterus ENT: external ear and nose normal, MMM NECK: trachea midline RESPIRATORY: clear to auscultation bilaterally, no crackles, rales or wheezes, normal respiratory effort CARDIOVASCULAR: regular rate and rhythm, S1 and 2 heard without murmurs, gallops or rubs, no JVD, no peripheral edema CHEST: inspection of chest was normal GASTROINTESTINAL: normal bowel sounds, soft, NTND, some discomfort from the "gas" and "bloating" that is present. MUSCULOSKELETAL: strength 5/5 throughout, head is normocephalic and atraumatic SKIN: warm and dry NEUROLOGIC: CN 2-12 grossly intact, normal cognition, normal speech, no tremor PSYCHIATRIC: alert cooperative and oriented to person, place and time. Results & Data Results & Data ([facility]) Vital Signs (Past 12 Hours) Vital Signs Temp Pulse Resp BP Pulse Ox 06/22/21 15:00 36.6 C 81 20 176/86 H 98 06/22/21 07:00 36.6 C 74 18 144/76 H 95 Medications Administered Current Inpatient Medications Acetaminophen (Acetaminophen 325 Mg Tab) 650 mg PO Q4H PRN PRN Reason: Pain or Fever Stop: 07/14/21 02:19 Acetaminophen (Acetaminophen 500 Mg Tab) 1,000 mg PO BID [facility] Stop: 07/14/21 08:59 Last Admin: 06/22/21 07:52 Dose: 1,000 mg Documented by: Allopurinol (Allopurinol 100 Mg Tab) 200 mg PO DAILY@1200 [facility] Stop: 07/14/21 11:59 Last Admin: 06/22/21 12:13 Dose: 200 mg Documented by: Aspirin (Aspirin 81 Mg Ectab) 81 mg PO QAM [facility] Stop: 07/14/21 08:59 Last Admin: 06/22/21 07:33 Dose: 81 mg Documented by: Carvedilol (Carvedilol 25 Mg Tab) 25 mg PO BID [facility] Stop: 07/14/21 08:59 Last Admin: 06/22/21 07:34 Dose: 25 mg Documented by: Cyanocobalamin (Cyanocobalamin 500 Mcg Tablet (Vitamin B-12)) [facility] Stop: 07/14/21 08:59 Last Admin: 06/18/21 09:23 Dose: 500 mcg Documented by: Dextrose (Dextrose 50% 50 Ml Syringe) 25 - 50 ml IV UD PRN; Protocol PRN Reason: Hypoglycemia Protocol Stop: 07/14/21 02:59 Diclofenac Sodium (Diclofenac Sod 1% Gel 100 Gm Tube) 4 gm EXT QID PRN PRN Reason: Pain Stop: 07/14/21 02:19 Famotidine (Famotidine 20 Mg Tab) 20 mg PO QPM@1700 [facility] Stop: 07/14/21 16:59 Last Admin: 06/22/21 17:52 Dose: 20 mg Documented by: Ferrous Sulfate (Ferrous Sulfate 325 Mg Tab) 325 mg PO QAM [facility] Stop: 07/14/21 08:59 Last Admin: 06/18/21 09:23 Dose: 325 mg Documented by: Folic Acid (Folic Acid 1 Mg Tab) 1 mg PO QAM [facility] Stop: 07/14/21 08:59 Last Admin: 06/18/21 09:23 Dose: 1 mg Documented by: Glucagon (Glucagon For Inj 1 Mg Vial) 1 mg IM UD PRN; Protocol PRN Reason: Hypoglycemia Protocol Stop: 07/14/21 02:59 Glucose (Glucose 40% Gel 15 Gm Tube) 15 - 30 gm PO UD PRN; Protocol PRN Reason: Hypoglycemia Protocol Stop: 07/14/21 02:59 Glucose (Glucose 10 Tabs/Tube) 4 - 8 tabs PO UD PRN; Protocol PRN Reason: Hypoglycemia Protocol Stop: 07/14/21 02:59 Heparin Sodium (Porcine) (Heparin Sod 5,000 Unit/0.5 Ml Vial) 5,000 units SQ Q12 [facility] Stop: 07/14/21 08:59 Last Admin: 06/22/21 07:35 Dose: 5,000 units Documented by: Hydralazine HCl (Hydralazine Tab 50 Mg Tab) 100 mg PO TID [facility] Stop: 07/18/21 04:24 Last Admin: 06/22/21 13:04 Dose: 100 mg Documented by: Promethazine HCl 12.5 mg/ (Sodium Chloride) 50.5 mls @ 202 mls/hr IV Q6H PRN PRN Reason: Nausea And Vomiting Stop: 07/20/21 18:40 Last Infusion: 06/22/21 18:21 Dose: Infused Documented by: Sodium Chloride (Nss 1000ml) 1,000 mls @ 80 mls/hr IV .[id number] [facility] Stop: 06/23/21 19:14 Last Admin: 06/22/21 18:42 Dose: 80 mls/hr Documented by: Insulin Aspart (Insulin Aspart 100 Units/Ml 3 Ml Pen) 0 units SC ACHS [facility] Stop: 07/21/21 16:29 Last Admin: 06/22/21 17:36 Dose: Not Given Documented by: Insulin Glargine (Insulin Glargine Solostar 100 Units/Ml 3 Ml Pen) 15 units SC BID [facility] Stop: 07/14/21 08:59 Last Admin: 06/22/21 08:22 Dose: 15 units Documented by: Isosorbide Dinitrate (Isosorbide Dinitrate 20 Mg Tab) 20 mg PO 0700,1200,1700 [facility] Stop: 07/14/21 06:59 Last Admin: 06/22/21 17:53 Dose: 20 mg Documented by: Lidocaine (Lidocaine 5% 1 Patch) 1 patch TD QAM [facility] Stop: 07/14/21 08:59 Last Admin: 06/22/21 07:35 Dose: Not Given Documented by: Miscellaneous (Remove Lidoderm Patch) 1 ea N/A DAILY@2100 [facility] Stop: 07/14/21 20:59 Last Admin: 06/21/21 21:55 Dose: Not Given Documented by: Miscellaneous (Carbohydrates For Hypoglycemia ) 15 - 30 gm PO UD PRN PRN Reason: Hypoglycemia Treatment Stop: 07/14/21 02:59 Nitroglycerin (Nitroglycerin Sl 0.4 Mg/Tab Tab) 0.4 mg SL UD PRN PRN Reason: Chest Pain Stop: 07/14/21 02:19 Nystatin (Nystatin Susp 500,000 U/5 Ml Udc) 5 ml PO QID [facility] Stop: 06/29/21 12:59 Last Admin: 06/22/21 17:34 Dose: 5 ml Documented by: Ondansetron HCl (Ondansetron Inj 2 Mg/Ml 2 Ml Vial) 4 mg IV Q6H PRN PRN Reason: Nausea Stop: 07/14/21 02:19 Last Admin: 06/22/21 12:24 Dose: 4 mg Documented by: Ondansetron HCl (Ondansetron 4 Mg Od Tab) 4 mg PO Q6H PRN PRN Reason: Nausea And Vomiting Stop: 07/14/21 02:55 Phenol (Chloraseptic 1.4% Soln 180 Ml Btl) 2 sprays MT QID PRN PRN Reason: sore throat Stop: 07/20/21 10:48 Polyethylene Glycol (Polyethylene (Miralax) 17 Gm Pack) 17 gm PO BID PRN PRN Reason: Constipation Stop: 07/18/21 17:28 Last Admin: 06/20/21 11:03 Dose: 17 gm Documented by: Raspberry (Raspberry Syrup 5 Ml Udp) 5 ml PO Q6 [facility] Stop: 06/28/21 05:59 Last Admin: 06/22/21 12:17 Dose: 5 ml Documented by: Rosuvastatin Calcium (Rosuvastatin Calcium 10 Mg Tab) 10 mg PO QPM [facility] Stop: 07/14/21 20:59 Last Admin: 06/17/21 21:42 Dose: 10 mg Documented by: Saccharomyces Boulardii (Saccharomyces Boulardii 250 Mg Cap) 250 mg PO DAILY [facility] Stop: 07/23/21 08:59 Senna/Docusate Sodium (Docusate Sodium/Senna 50/8.6mg Tab) 1 tab PO HS PRN PRN Reason: constipation Stop: 07/20/21 20:59 Last Admin: 06/22/21 13:04 Dose: 1 tab Documented by: Sodium Chloride (Sodium Chloride 0.65% Na Soln 45 Ml ([place])) 2 sprays NA QID PRN PRN Reason: dry nose Stop: 07/20/21 10:48 Vancomycin HCl (Vancomycin Hcl 125 Mg/2.5ml Soln) 125 mg PO Q6 [facility] Stop: 06/28/21 11:59 Last Admin: 06/22/21 12:18 Dose: 125 mg Documented by:
[2021-06-23] MEDS: VANCOMYCIN HCL 125 MG/2.5ML SOLN PO SCH ×5 (00:01→23:29)
[2021-06-23] MEDS: RASPBERRY SYRUP 5 ML UDP PO SCH ×5 (00:01→23:29)
[2021-06-23] MEDS: SODIUM CHLORIDE 0.9% 1000ML 1,000 ML IV SCH (06:06)
[2021-06-23] MEDS: ISOSORBIDE DINITRATE 20 MG TAB PO SCH ×3 (06:06→17:51)
[2021-06-23] MEDS: INSULIN ASPART 100 UNITS/ML 3 ML PEN SC SCH ×4 (08:30→21:09)
[2021-06-23] MEDS: NYSTATIN SUSP 500,000 U/5 ML UDC PO SCH ×4 (08:36→20:57)
[2021-06-23] MEDS: INSULIN GLARGINE SOLOSTAR 100 UNITS/ML 3 ML PEN SC SCH ×2 (08:36→21:08)
[2021-06-23] MEDS: ACETAMINOPHEN 500 MG TAB PO SCH ×2 (09:16→21:23)
[2021-06-23] MEDS: hydrALAZINE TAB 50 MG TAB PO SCH ×3 (09:17→21:11)
[2021-06-23] MEDS: LIDOCAINE 5% 1 PATCH TD SCH (09:17)
[2021-06-23] MEDS: SACCHAROMYCES BOULARDII 250 MG CAP PO SCH (09:17)
[2021-06-23] MEDS: ASPIRIN 81 MG ECTAB PO SCH (09:17)
[2021-06-23] MEDS: carvediloL 25 MG TAB PO SCH ×2 (09:17→21:12)
[2021-06-23] MEDS: HEPARIN SOD 5,000 UNIT/0.5 ML VIAL SQ SCH ×2 (09:18→20:58)
--- NOTE | 2021-06-23 10:32 | Gastroenterology Progress Note ---
Date of Service June 23, 2021 Assessment & Plan (1) C. difficile colitis: (2) Diverticulitis large intestine w/o perforation or abscess w/o bleeding: Plan: Pt is a 85 year old female w Cdiff infection, sigmoid diverticulitis re- evaluated for general GI symptoms This AM notes she is feeling better since Flagyl was DC. Some heartburn after PO but no abd pain, nausea/vomiting. Bowels slowing down in frequnecy, 2 bms in 24 hours, still liquid - Conntinue to hold Flagyl - Continue Vancomycin as prescribed for Cdiff - Zofran prn n/v - Advance diet as tolerated - Would increase Pepcid to twice daily Thank you for allowing us to participate in the care of this patient. Please call with any acute changes, questions or concerns. Please see addendum below with additional recommendation from my supervising physician. Admission and Anticipated Discharge Date Admission Date: June 13, 2021 Supervising Physician Co-Signing Physician Notes PE remains unchanged from last week If concerns for diabetic gastroparesis, consider a gastric emptying study for determination. Further plan of care as per Joanna's plan of care. Subjective Pt was seen and evaluated, chart reviewed. Notes this AM she is feeling better. Abd pain has been improved today No nausea, vomiting Tolerated breakfast - english fletcher Is having some gerd, burping/belching regurgtation no dysphagia Notes her bowels seem to be slowing down in frequnecy has had 2 bms in the past 24 hours no BM today Stools yesterday still loose No fever, chills, CP, SOB Review of Systems Review of Systems: All systems reviewed & are unremarkable except as noted in HPI & below Physical Exam Constitutional: WD/WN, vitals as above Neck: trachea midline, no thyromegaly Respiratory: normal respiratory effort, lungs clear to auscultation Cardiovascular: Rate/Rhythm: regular rate and regular rhythm Gastrointestinal (Abdomen): normal bowel sounds, soft, nontender, no hepatosplenomegaly Skin: no rashes, warm and dry Results & Data ([facility]) Vital Signs (Past 12 Hours) Vital Signs Temp Pulse Pulse Resp BP BP Pulse Ox 06/23/21 10:00 177/79 H 06/23/21 07:37 36.5 C 69 20 157/100 H 98 06/22/21 23:19 37.0 C 77 18 147/66 H 97 Laboratory Results 06/23/21 06/22/21 06/22/21 Range/Units 08:24 20:41 16:40 POC Glucose 88 154 H 143 H (70-99) mg/dl 06/22/21 Range/Units 11:44 POC Glucose 173 H (70-99) mg/dl
[2021-06-23] MEDS: ONDANSETRON INJ 2 MG/ML 2 ML VIAL IV PRN (12:51)
[2021-06-23] MEDS: allopurinoL 100 MG TAB PO SCH (12:53)
[2021-06-23] MEDS: FAMOTIDINE 20 MG TAB PO SCH (17:51)
[2021-06-23] MEDS: DOCUSATE SODIUM/SENNA 50/8.6MG TAB PO PRN (21:07)
[2021-06-24] MEDS: RASPBERRY SYRUP 5 ML UDP PO SCH ×4 (05:55→23:37)
[2021-06-24] MEDS: ISOSORBIDE DINITRATE 20 MG TAB PO SCH ×3 (05:55→17:35)
[2021-06-24] MEDS: VANCOMYCIN HCL 125 MG/2.5ML SOLN PO SCH ×4 (05:55→23:37)
[2021-06-24] MEDS ORDERED: FUROSEMIDE 40 MG in SYRINGE 0 ML IV ONE (09:00)
[2021-06-24] MEDS: INSULIN ASPART 100 UNITS/ML 3 ML PEN SC SCH ×4 (09:10→20:41)
[2021-06-24] MEDS: INSULIN GLARGINE SOLOSTAR 100 UNITS/ML 3 ML PEN SC SCH ×2 (09:10→20:40)
[2021-06-24] MEDS: HEPARIN SOD 5,000 UNIT/0.5 ML VIAL SQ SCH ×2 (09:12→19:43)
[2021-06-24] MEDS: LIDOCAINE 5% 1 PATCH TD SCH (09:15)
[2021-06-24] MEDS: NYSTATIN SUSP 500,000 U/5 ML UDC PO SCH ×4 (09:16→20:42)
[2021-06-24] MEDS: hydrALAZINE TAB 50 MG TAB PO SCH ×3 (09:17→19:44)
[2021-06-24] MEDS: DOCUSATE SODIUM/SENNA 50/8.6MG TAB PO SCH (09:18)
[2021-06-24] MEDS: carvediloL 25 MG TAB PO SCH ×2 (09:18→19:44)
[2021-06-24] MEDS: ACETAMINOPHEN 500 MG TAB PO SCH ×2 (09:18→19:44)
[2021-06-24] MEDS: ASPIRIN 81 MG ECTAB PO SCH (09:19)
[2021-06-24] MEDS: SACCHAROMYCES BOULARDII 250 MG CAP PO SCH (09:19)
[2021-06-24 09:34] LABS: Hematocrit (blood only) 29.1 % (37-47); Hemoglobin 9.4 g/dL (12.0-16.0); Mean Corpuscular Hemoglobin 30.3 pg (25-34); Mean Corpuscular Hgb Conc 32.3 g/dL (32-36); Mean Corpuscular Volume 93.9 fL (80-100); Mean Platelet Volume 9.8 fL (7.4-10.4); Platelet Count 246 K/uL (130-400); RDW Coefficient of Variation 16.6 % (11.5-14.5); White Blood Count 6.97 K/uL (4.8-10.8)
[2021-06-24 09:51] LABS: BUN Creatinine Ratio 8.1 (10-20); Calcium 9.4 mg/dl (8.5-10.1); Creatinine Clr Calc Pharmacy 29.4 ml/min; Est GFR (African American) 32.5 ml/min; Magnesium 1.7 mg/dl (1.8-2.4); Potassium 3.4 mmol/L (3.5-5.1)
[2021-06-24 09:52] LABS: Phosphorus 3.2 mg/dl (2.5-4.9)
[2021-06-24] MEDS ORDERED: POTASSIUM CHLORIDE CRTAB 20 MEQ TABCR PO STA (10:11)
[2021-06-24] MEDS: MAGNESIUM SULFATE / D5W 1 GM/100 ML BAG IV SCH ×2 (10:57→12:37)
[2021-06-24] MEDS ORDERED: POTASSIUM CHLORIDE PWD 20 MEQ PACK PO ONE (10:59)
--- NOTE | 2021-06-24 11:06 | XRay Report ---
XR chest 1V portable HISTORY: hypoxia worsening from baseline, recent IVF COMPARISON: Chest 04/29/2021. FINDINGS: No pneumothorax. Trace bilateral pleural effusions which have progressed. There is mild dev eloping interstitial pulmonary edema which is also increased. The heart is mildly enlarged. No new fo fam lung consolidations. IMPRESSION: There is developing mild interstitial pulmonary edema and trace bilateral pleural effusions which hav e progressed in the interval. ACT 112: Negative or not required by law. Electronically signed by: Catrachito Cuenca M.D. 06/24/2021 11:04 AM
--- NOTE | 2021-06-24 11:47 | XRay Report ---
KUB CLINICAL HISTORY: Nausea. FINDINGS: An AP, portable, supine abdominal radiograph is compared to abdominal x-ray and CT dated . There is a nonobstructed abdominal bowel gas pattern. No evidence of intraperitoneal free ai r is seen on this supine image. A cholecystectomy clip is noted in the right upper quadrant. There ar e no abnormal abdominal calcifications. There is atherosclerotic calcification of the abdominal aorta . Phleboliths are seen in the pelvis. The skeletal structures are osteopenic and appear intact. Lumbo sacral spondylosis is noted. IMPRESSION: Nonobstructed abdominal bowel gas pattern. Electronically signed by: Marco Morocho M.D. 06/24/2021 11:46 AM
[2021-06-24] MEDS: allopurinoL 100 MG TAB PO SCH (12:33)
--- NOTE | 2021-06-24 14:18 | Hospitalist Progress Note ---
Date of Service June 23, 2021 Patient was seen 06/23 with documentation placed on 06/24. Assessment & Plan (1) C. difficile colitis: Plan: continues on vancomycin. after 14 days of QID dosing, switch to BID dosing and continue with taper per GI. (2) Anemia: Plan: chronic, multifactorial. Hold iron in setting of constipation. (3) DMII (diabetes mellitus, type 2): Plan: At goal on basal bolus insulin here. Cont to follow closely. (4) Thrush: Plan: Cont nystatin. (5) Nocturnal hypoxemia: Plan: cont oxygen supplementation as needed. (6) Chronic kidney disease (CKD), stage IV (severe): Plan: chronic, at her baseline. (7) Spinal stenosis: Plan: Chronic, controlled, but her ability to ambulate is impeded by this per her report. PT assessed her while here and ok with return home. Encouraged ambulation with her walker to help move bowels. (8) Obesity: Plan: lifestyle changes recommended (9) DVT prophylaxis: Plan: Heparin FUll Dispo-uncertain, pending improvement in abdominal issues. I spoke with one of her daughters by phone today for about 20 mintues. She states mom likes to be in the hospital and has expressed in the past that she didn't want to comie home, which seemed to her daughter like uncontrolled anxiety. Discussed case for about 20 minutes by phone to her daughter and all questions were answered. Constanza Overton DO [facility] Hospitalist Admission and Anticipated Discharge Date Admission Date: June 13, 2021 Subjective 85 yo F admitted with c diff infection, persistent having constipation and nausea issues with persistent bloating and poor tolerance to food. Flagyl considered possible culprit to cause symptoms and this was stopped, but she is still symptomatic Some small, frequent BMs overnight but doesn't feel she is completely evacuating. Still having intermittent nausea continues on IVF to stay hydrated. Review of Systems Review of Systems: At least ten systems were reviewed and negative except as indicated in HPI above. Physical Exam Physical Exam: CONSTITUTIONAL: obese, vitals as above, NAD EYES: normal conjunctivae, no scleral icterus ENT: external ear and nose normal, MMM NECK: trachea midline RESPIRATORY: clear to auscultation bilaterally, no crackles, rales or wheezes, normal respiratory effort CARDIOVASCULAR: regular rate and rhythm, S1 and 2 heard without murmurs, gallops or rubs, no JVD, no peripheral edema CHEST: inspection of chest was normal GASTROINTESTINAL: normal bowel sounds, soft, NTND, some discomfort from the "gas" and "bloating" that is present. MUSCULOSKELETAL: strength 5/5 throughout, head is normocephalic and atraumatic SKIN: warm and dry NEUROLOGIC: CN 2-12 grossly intact, normal cognition, normal speech, no tremor PSYCHIATRIC: alert cooperative and oriented to person, place and time. Results & Data Results & Data ([facility]) Vital Signs (Past 12 Hours) Vital Signs Temp Pulse Resp BP Pulse Ox 06/24/21 13:53 36.4 C L 79 18 124/65 99 06/24/21 12:36 178/78 H 06/24/21 10:13 165/72 H 06/24/21 07:33 36.5 C 82 18 181/82 H 95
--- NOTE | 2021-06-24 14:19 | Hospitalist Progress Note ---
Date of Service June 24, 2021 Assessment & Plan (1) C. difficile colitis: Plan: Recent admission for acute diverticulitis one month ago Completed antibiotic course. CT abd pel on 06/13 (this admission) revealed improved diverticulitis and she tested positive for c diff Started on oral vanc and IV flagyl with GI in agreement with this with taper recommended post discharge. Leukocytosis has improved since admission Despite no narcotic use, she began having bloating, persistent nausea and abdominal discomfort as well as constipation. Concern for ileus vs obstruction-repeat KUB on 06/18-negative, repeat CT a/p wo contrast-negative for structural abnormality or obstruction/ileus Improved on bowel rest with some BMs overnight and improvement in abdominal exam Stopped flagyl in hopes this would help. So far she is still having significant nausea with eating--started ivf and probiotics--question diabetic gastroparesis vs constipation induced nausea? Is nausea possibly 2/2 Nystatin-holding this now. Is nausea related to raspberry syrup from liquid vanc? Discuss with pharmacy about switching to a pull version if on formulary. IVF caused hypoxia--stopped and given Lasix, much improved. Cont supportive care efforts and aggressive treatment of constipation. (2) Anemia: Plan: chronic, multifactorial. Hold iron in setting of constipation. (3) DMII (diabetes mellitus, type 2): Plan: At goal on basal bolus insulin here. Cont to follow closely. (4) Thrush: Plan: Hold nystatin--could this now be contributing to her nausea? (5) Nocturnal hypoxemia: Plan: cont oxygen supplementation as needed. (6) Chronic kidney disease (CKD), stage IV (severe): Plan: chronic, at her baseline. (7) Spinal stenosis: Plan: Chronic, controlled, but her ability to ambulate is impeded by this per her report. PT assessed her while here and ok with return home. Encouraged ambulation with her walker to help move bowels. (8) Obesity: Plan: lifestyle changes recommended (9) DVT prophylaxis: Plan: Heparin FUll Dispo-uncertain, pending improvement in abdominal issues. Constanza Overton DO [facility] Hospitalist Admission and Anticipated Discharge Date Admission Date: June 13, 2021 Subjective 85 yo F admitted with c diff infection, persistent having constipation and nausea issues with persistent bloating and poor tolerance to food. Some small, frequent BMs overnight but doesn't feel she is completely evacuating. Very nauseated after eating bfast and lunch increased hypoxia because of IVF for last two days-gave LAsix, good response, restart home Lasix in am. Review of Systems Review of Systems: At least ten systems were reviewed and negative except as indicated in HPI above. Physical Exam Physical Exam: CONSTITUTIONAL: obese, vitals as above, NAD, moderately ill- appearing. EYES: normal conjunctivae, no scleral icterus ENT: external ear and nose normal, MMM NECK: trachea midline RESPIRATORY: clear to auscultation bilaterally, no crackles, rales or wheezes, normal respiratory effort CARDIOVASCULAR: regular rate and rhythm, S1 and 2 heard without murmurs, gallops or rubs, no JVD, no peripheral edema CHEST: inspection of chest was normal GASTROINTESTINAL: normal bowel sounds, soft, NTND, some discomfort from the "gas" and "bloating" that is present. MUSCULOSKELETAL: strength 5/5 throughout, head is normocephalic and atraumatic SKIN: warm and dry NEUROLOGIC: CN 2-12 grossly intact, normal cognition, normal speech, no tremor PSYCHIATRIC: alert cooperative and oriented to person, place and time. Results & Data Results & Data ([facility]) Vital Signs (Past 12 Hours) Vital Signs Temp Pulse Resp BP Pulse Ox 06/24/21 13:53 36.4 C L 79 18 124/65 99 06/24/21 12:36 178/78 H 06/24/21 10:13 165/72 H 06/24/21 07:33 36.5 C 82 18 181/82 H 95 Laboratory Results Short CBC 06/24/21 Range/Units 09:18 WBC 6.97 (4.8-10.8) K/uL Hgb 9.4 L (12.0-16.0) g/dL Hct 29.1 L (37-47) % Plt Count 246 (130-400) K/uL BMP 06/24/21 09:18 Sodium 144 Potassium 3.4 L Chloride 116 H Carbon Dioxide 21 BUN 13 Creatinine 1.64 H Glucose 100 H Calcium 9.4 Medications Administered Current Inpatient Medications Acetaminophen (Acetaminophen 325 Mg Tab) 650 mg PO Q4H PRN PRN Reason: Pain or Fever Stop: 07/14/21 02:19 Acetaminophen (Acetaminophen 500 Mg Tab) 1,000 mg PO BID [facility] Stop: 07/14/21 08:59 Last Admin: 06/24/21 09:18 Dose: 1,000 mg Documented by: Allopurinol (Allopurinol 100 Mg Tab) 200 mg PO DAILY@1200 [facility] Stop: 07/14/21 11:59 Last Admin: 06/24/21 12:33 Dose: 200 mg Documented by: Aspirin (Aspirin 81 Mg Ectab) 81 mg PO [facility] Stop: 07/14/21 08:59 Last Admin: 06/24/21 09:19 Dose: 81 mg Documented by: Carvedilol (Carvedilol 25 Mg Tab) 25 mg PO BID [facility] Stop: 07/14/21 08:59 Last Admin: 06/24/21 09:18 Dose: 25 mg Documented by: Cyanocobalamin (Cyanocobalamin 500 Mcg Tablet (Vitamin B-12)) 500 mcg PO [facility] Stop: 07/14/21 08:59 Last Admin: 06/18/21 09:23 Dose: 500 mcg Documented by: Dextrose (Dextrose 50% 50 Ml Syringe) 25 - 50 ml IV UD PRN; Protocol PRN Reason: Hypoglycemia Protocol Stop: 07/14/21 02:59 Diclofenac Sodium (Diclofenac Sod 1% Gel 100 Gm Tube) 4 gm EXT QID PRN PRN Reason: Pain Stop: 07/14/21 02:19 Famotidine (Famotidine 20 Mg Tab) 20 mg PO QPM@1700 [facility] Stop: 07/14/21 16:59 Last Admin: 06/23/21 17:51 Dose: 20 mg Documented by: Ferrous Sulfate (Ferrous Sulfate 325 Mg Tab) 325 mg PO [facility] Stop: 07/14/21 08:59 Last Admin: 06/18/21 09:23 Dose: 325 mg Documented by: Folic Acid (Folic Acid 1 Mg Tab) 1 mg PO [facility] Stop: 07/14/21 08:59 Last Admin: 06/18/21 09:23 Dose: 1 mg Documented by: Furosemide (Furosemide 40 Mg Tab) 40 mg PO [facility] Stop: 07/25/21 08:59 Glucagon (Glucagon For Inj 1 Mg Vial) 1 mg IM UD PRN; Protocol PRN Reason: Hypoglycemia Protocol Stop: 07/14/21 02:59 Glucose (Glucose 40% Gel 15 Gm Tube) 15 - 30 gm PO UD PRN; Protocol PRN Reason: Hypoglycemia Protocol Stop: 07/14/21 02:59 Glucose (Glucose 10 Tabs/Tube) 4 - 8 tabs PO UD PRN; Protocol PRN Reason: Hypoglycemia Protocol Stop: 07/14/21 02:59 Glycerin (Glycerin Adult 12 Supp/Box Supp) 1 supp ND DAILY PRN PRN Reason: Constipation Stop: 07/24/21 08:33 Heparin Sodium (Porcine) (Heparin Sod 5,000 Unit/0.5 Ml Vial) 5,000 units SQ Q12 [facility] Stop: 07/14/21 08:59 Last Admin: 06/24/21 09:12 Dose: 5,000 units Documented by: Hydralazine HCl (Hydralazine Tab 50 Mg Tab) 100 mg PO TID [facility] Stop: 07/18/21 04:24 Last Admin: 06/24/21 09:17 Dose: 100 mg Documented by: Promethazine HCl 12.5 mg/ (Sodium Chloride) 50.5 mls @ 202 mls/hr IV Q6H PRN PRN Reason: Nausea And Vomiting Stop: 07/20/21 18:40 Last Infusion: 06/22/21 18:21 Dose: Infused Documented by: Magnesium Sulfate/Dextrose (Magnesium Sulfate / D5w) 1 gm in 100 mls @ 50 mls/hr IV Q2H [facility] Stop: 06/24/21 14:29 Last Admin: 06/24/21 12:37 Dose: 50 mls/hr Documented by: Insulin Aspart (Insulin Aspart 100 Units/Ml 3 Ml Pen) 0 units SC ACHS [facility] Stop: 07/21/21 16:29 Last Admin: 06/24/21 12:37 Dose: 8 units Documented by: Insulin Glargine (Insulin Glargine Solostar 100 Units/Ml 3 Ml Pen) 15 units SC BID [facility] Stop: 07/14/21 08:59 Last Admin: 06/24/21 09:10 Dose: 15 units Documented by: Isosorbide Dinitrate (Isosorbide Dinitrate 20 Mg Tab) 20 mg PO 0700,1200,1700 [facility] Stop: 07/14/21 06:59 Last Admin: 06/24/21 12:36 Dose: 20 mg Documented by: Lidocaine (Lidocaine 5% 1 Patch) 1 patch TD QAM [facility] Stop: 07/14/21 08:59 Last Admin: 06/24/21 09:15 Dose: Not Given Documented by: Miscellaneous (Remove Lidoderm Patch) 1 ea N/A DAILY@2100 [facility] Stop: 07/14/21 20:59 Last Admin: 06/23/21 20:59 Dose: Not Given Documented by: Miscellaneous (Carbohydrates For Hypoglycemia ) 15 - 30 gm PO UD PRN PRN Reason: Hypoglycemia Treatment Stop: 07/14/21 02:59 Nitroglycerin (Nitroglycerin Sl 0.4 Mg/Tab Tab) 0.4 mg SL UD PRN PRN Reason: Chest Pain Stop: 07/14/21 02:19 Nystatin (Nystatin Susp 500,000 U/5 Ml Udc) 5 ml PO QID [facility] Stop: 06/29/21 12:59 Last Admin: 06/24/21 12:35 Dose: 5 ml Documented by: Ondansetron HCl (Ondansetron Inj 2 Mg/Ml 2 Ml Vial) 4 mg IV Q6H PRN PRN Reason: Nausea Stop: 07/14/21 02:19 Last Admin: 06/23/21 12:51 Dose: 4 mg Documented by: Ondansetron HCl (Ondansetron 4 Mg Od Tab) 4 mg PO Q6H PRN PRN Reason: Nausea And Vomiting Stop: 07/14/21 02:55 Phenol (Chloraseptic 1.4% Soln 180 Ml Btl) 2 sprays MT QID PRN PRN Reason: sore throat Stop: 07/20/21 10:48 Polyethylene Glycol (Polyethylene (Miralax) 17 Gm Pack) 17 gm PO BID PRN PRN Reason: Constipation Stop: 07/18/21 17:28 Last Admin: 06/20/21 11:03 Dose: 17 gm Documented by: Raspberry (Raspberry Syrup 5 Ml Udp) 5 ml PO Q6 [facility] Stop: 06/28/21 05:59 Last Admin: 06/24/21 12:34 Dose: 5 ml Documented by: Rosuvastatin Calcium (Rosuvastatin Calcium 10 Mg Tab) 10 mg PO QPM [facility] Stop: 07/14/21 20:59 Last Admin: 06/17/21 21:42 Dose: 10 mg Documented by: Saccharomyces Boulardii (Saccharomyces Boulardii 250 Mg Cap) 250 mg PO DAILY [facility] Stop: 07/23/21 08:59 Last Admin: 06/24/21 09:19 Dose: 250 mg Documented by: Senna/Docusate Sodium (Docusate Sodium/Senna 50/8.6mg Tab) 1 tab PO HS PRN PRN Reason: constipation Stop: 07/20/21 20:59 Last Admin: 06/23/21 21:07 Dose: 1 tab Documented by: Senna/Docusate Sodium (Docusate Sodium/Senna 50/8.6mg Tab) 1 tab PO QAM [facility] Stop: 07/24/21 08:59 Last Admin: 06/24/21 09:18 Dose: 1 tab Documented by: Sodium Chloride (Sodium Chloride 0.65% Na Soln 45 Ml ([place])) 2 sprays NA QID PRN PRN Reason: dry nose Stop: 07/20/21 10:48 Vancomycin HCl (Vancomycin Hcl 125 Mg/2.5ml Soln) 125 mg PO Q6 [facility] Stop: 06/28/21 11:59 Last Admin: 06/24/21 12:34 Dose: 125 mg Documented by:
[2021-06-24] MEDS: PROMETHAZINE HCL 12.5 MG in SODIUM CHLORIDE 0.9% 50 ML IV PRN (16:11)
[2021-06-24] MEDS: GLYCERIN ADULT 12 SUPP/BOX SUPP PR PRN (17:01)
[2021-06-24] MEDS: FAMOTIDINE 20 MG TAB PO SCH (17:35)
[2021-06-25] MEDS: VANCOMYCIN HCL 125 MG/2.5ML SOLN PO SCH ×4 (05:22→23:45)
[2021-06-25] MEDS: RASPBERRY SYRUP 5 ML UDP PO SCH ×4 (05:22→23:45)
[2021-06-25] MEDS: ISOSORBIDE DINITRATE 20 MG TAB PO SCH ×3 (07:20→17:37)
[2021-06-25] MEDS: hydrALAZINE TAB 50 MG TAB PO SCH ×3 (09:02→20:52)
[2021-06-25] MEDS: FUROSEMIDE 40 MG TAB PO SCH (09:03)
[2021-06-25] MEDS: HEPARIN SOD 5,000 UNIT/0.5 ML VIAL SQ SCH ×2 (09:03→20:52)
[2021-06-25] MEDS: DOCUSATE SODIUM/SENNA 50/8.6MG TAB PO SCH (09:04)
[2021-06-25] MEDS: ASPIRIN 81 MG ECTAB PO SCH (09:05)
[2021-06-25] MEDS: carvediloL 25 MG TAB PO SCH ×2 (09:05→20:51)
[2021-06-25] MEDS: SACCHAROMYCES BOULARDII 250 MG CAP PO SCH (09:07)
[2021-06-25] MEDS: LIDOCAINE 5% 1 PATCH TD SCH (09:07)
[2021-06-25] MEDS: INSULIN ASPART 100 UNITS/ML 3 ML PEN SC SCH ×4 (09:11→20:46)
[2021-06-25] MEDS: INSULIN GLARGINE SOLOSTAR 100 UNITS/ML 3 ML PEN SC SCH ×2 (09:13→20:46)
[2021-06-25] MEDS: ACETAMINOPHEN 500 MG TAB PO SCH ×2 (09:19→21:05)
[2021-06-25] MEDS: allopurinoL 100 MG TAB PO SCH (11:25)
--- NOTE | 2021-06-25 17:44 | Hospitalist Progress Note ---
Date of Service June 25, 2021 Assessment & Plan (1) C. difficile colitis: Plan: Recent admission for acute diverticulitis one month ago Completed antibiotic course. CT abd pel on 06/13 (this admission) revealed improved diverticulitis and she tested positive for c diff Started on oral vanc and IV flagyl with GI in agreement with this with taper recommended post discharge. Leukocytosis has improved since admission Despite no narcotic use, she began having bloating, persistent nausea and abdominal discomfort as well as constipation. Concern for ileus vs obstruction-repeat KUB on 06/18-negative, repeat CT a/p wo contrast-negative for structural abnormality or obstruction/ileus Improved on bowel rest with some BMs overnight and improvement in abdominal exam Stopped flagyl in hopes this would help. So far she is still having significant nausea with eating--started ivf and probiotics--question diabetic gastroparesis vs constipation induced nausea? Is nausea possibly 2/2 Nystatin-holding this now. Is nausea related to raspberry syrup from liquid vanc? Discuss with pharmacy about switching to a pull version if on formulary. IVF caused hypoxia--stopped and given Lasix, much improved. Cont supportive care efforts and aggressive treatment of constipation. Cannot take any big capsule-we will need to give vancomycin liquid on discharge Abdominal pain Denies any pain but has discomfort secondary to constipation Has been receiving laxatives Bowel movement yesterday 06/24/2021 (2) Anemia: Plan: chronic, multifactorial. Hold iron in setting of constipation. Bowel has been moving (3) DMII (diabetes mellitus, type 2): Plan: At goal on basal bolus insulin here. Cont to follow closely. Nausea and vomiting could be secondary to gastroparesis Has been improving (4) Thrush: Plan: Hold nystatin--could this now be contributing to her nausea? (5) Nocturnal hypoxemia: Plan: Cont oxygen supplementation as needed. (6) Chronic kidney disease (CKD), stage IV (severe): Plan: Chronic, at her baseline. (7) Spinal stenosis: Plan: Chronic, controlled, but her ability to ambulate is impeded by this per her report. PT assessed her while here and ok with return home. Encouraged ambulation with her walker to help move bowels. (8) Obesity: Plan: lifestyle changes recommended (9) DVT prophylaxis: Plan: Heparin FUll Dispo-uncertain, pending improvement in abdominal issues. Admission and Anticipated Discharge Date Admission Date: June 13, 2021 Subjective 06/25/2021 The patient was seen and examined in medical floor She has been feeling much better today and denies any more nausea and/or vomiting She has not had a bowel movement today and feels a little bit bloated but does not want any further enema She wants to go home Review of Systems Review of Systems: All systems reviewed and are unremarkable except as noted below Gastrointestinal: Mild abdominal distention with discomfort but no pain, vomiting Physical Exam Physical Exam: Lying in bed comfortably Constitutional: well developed, well nourished, + ill appearing and + obese Eyes: PERRL, conjunctivae normal, anicteric sclerae ENMT: external ear and nose normal, oropharynx normal Neck: trachea midline, no thyromegaly Respiratory: no respiratory distress Auscultation: lungs clear to auscultation bilaterally Cardiovascular: Rate/Rhythm: regular rate and regular rhythm; not tachycardic Heart Sounds: normal S1 and normal S2; no murmur Extremities: + edema (Trace edema bilaterally) Gastrointestinal (Abdomen): Inspection/Auscultation: + abdomen distended and normal bowel sounds Percussion/Palpation: + abdomen tender (Mildly tender all over) and abdomen soft; no guarding and abdomen not rigid Musculoskeletal: No acute arthritis in any joint Neurologic: Alert, awake and oriented x3. Generally weak but no focal sensory or motor deficit appreciated Results & Data Results & Data ([facility]) Vital Signs (Past 12 Hours) Vital Signs Temp Pulse Pulse Resp BP Pulse Ox 06/25/21 16:24 36.8 C 70 18 152/79 H 92 06/25/21 07:47 36.5 C 69 20 153/73 H 92 Medications Administered Current Inpatient Medications Acetaminophen (Acetaminophen 325 Mg Tab) 650 mg PO Q4H PRN PRN Reason: Pain or Fever Stop: 07/14/21 02:19 Acetaminophen (Acetaminophen 500 Mg Tab) 1,000 mg PO BID [facility] Stop: 07/14/21 08:59 Last Admin: 06/25/21 09:19 Dose: 1,000 mg Documented by: Allopurinol (Allopurinol 100 Mg Tab) 200 mg PO DAILY@1200 [facility] Stop: 07/14/21 11:59 Last Admin: 06/25/21 11:25 Dose: 200 mg Documented by: Aspirin (Aspirin 81 Mg Ectab) 81 mg PO QAM [facility] Stop: 07/14/21 08:59 Last Admin: 06/25/21 09:05 Dose: 81 mg Documented by: Carvedilol (Carvedilol 25 Mg Tab) 25 mg PO BID [facility] Stop: 07/14/21 08:59 Last Admin: 06/25/21 09:05 Dose: 25 mg Documented by: Cyanocobalamin (Cyanocobalamin 500 Mcg Tablet (Vitamin B-12)) [facility] [place]: 07/14/21 08:59 Last Admin: 06/18/21 09:23 Dose: 500 mcg Documented by: Dextrose (Dextrose 50% 50 Ml Syringe) 25 - 50 ml IV UD PRN; Protocol PRN Reason: Hypoglycemia Protocol Stop: 07/14/21 02:59 Diclofenac Sodium (Diclofenac Sod 1% Gel 100 Gm Tube) 4 gm EXT QID PRN PRN Reason: Pain Stop: 07/14/21 02:19 Famotidine (Famotidine 20 Mg Tab) 20 mg PO BID [facility] Stop: 07/25/21 20:59 Ferrous Sulfate (Ferrous Sulfate 325 Mg Tab) 325 mg PO [facility] Stop: 07/14/21 08:59 Last Admin: 06/18/21 09:23 Dose: 325 mg Documented by: Folic Acid (Folic Acid 1 Mg Tab) 1 mg PO [facility] Stop: 07/14/21 08:59 Last Admin: 06/18/21 09:23 Dose: 1 mg Documented by: Furosemide (Furosemide 40 Mg Tab) 40 mg PO [facility] Stop: 07/25/21 08:59 Last Admin: 06/25/21 09:03 Dose: 40 mg Documented by: Glucagon (Glucagon For Inj 1 Mg Vial) 1 mg IM UD PRN; Protocol PRN Reason: Hypoglycemia Protocol Stop: 07/14/21 02:59 Glucose (Glucose 40% Gel 15 Gm Tube) 15 - 30 gm PO UD PRN; Protocol PRN Reason: Hypoglycemia Protocol Stop: 07/14/21 02:59 Glucose (Glucose 10 Tabs/Tube) 4 - 8 tabs PO UD PRN; Protocol PRN Reason: Hypoglycemia Protocol Stop: 07/14/21 02:59 Glycerin (Glycerin Adult 12 Supp/Box Supp) 1 supp [place] DAILY PRN PRN Reason: Constipation Stop: 07/24/21 08:33 Last Admin: 06/24/21 17:01 Dose: 1 supp Documented by: Heparin Sodium (Porcine) (Heparin Sod 5,000 Unit/0.5 Ml Vial) 5,000 units SQ Q12 [facility] Stop: 07/14/21 08:59 Last Admin: 06/25/21 09:03 Dose: 5,000 units Documented by: Hydralazine HCl (Hydralazine Tab 50 Mg Tab) 100 mg PO TID [facility] Stop: 07/18/21 04:24 Last Admin: 06/25/21 14:33 Dose: 100 mg Documented by: Promethazine HCl 12.5 mg/ (Sodium Chloride) 50.5 mls @ 202 mls/hr IV Q6H PRN PRN Reason: Nausea And Vomiting Stop: 07/20/21 18:40 Last Infusion: 06/24/21 16:38 Dose: Infused Documented by: Insulin Aspart (Insulin Aspart 100 Units/Ml 3 Ml Pen) 0 units SC ACHS [facility] Stop: 07/21/21 16:29 Last Admin: 06/25/21 12:47 Dose: 8 units Documented by: Insulin Glargine (Insulin Glargine Solostar 100 Units/Ml 3 Ml Pen) 15 units SC BID [facility] Stop: 07/14/21 08:59 Last Admin: 06/25/21 09:13 Dose: 15 units Documented by: Isosorbide Dinitrate (Isosorbide Dinitrate 20 Mg Tab) 20 mg PO 0700,1200,1700 [facility] Stop: 07/14/21 06:59 Last Admin: 06/25/21 17:37 Dose: 20 mg Documented by: Lidocaine (Lidocaine 5% 1 Patch) 1 patch TD QAM [facility] Stop: 07/14/21 08:59 Last Admin: 06/25/21 09:07 Dose: Not Given Documented by: Miscellaneous (Remove Lidoderm Patch) 1 ea N/A DAILY@2100 [facility] Stop: 07/14/21 20:59 Last Admin: 06/24/21 19:44 Dose: Not Given Documented by: Miscellaneous (Carbohydrates For Hypoglycemia ) 15 - 30 gm PO UD PRN PRN Reason: Hypoglycemia Treatment Stop: 07/14/21 02:59 Nitroglycerin (Nitroglycerin Sl 0.4 Mg/Tab Tab) 0.4 mg SL UD PRN PRN Reason: Chest Pain Stop: 07/14/21 02:19 Nystatin (Nystatin Susp 500,000 U/5 Ml Udc) 5 ml PO QID [facility] Stop: 06/29/21 12:59 Last Admin: 06/24/21 20:42 Dose: 5 ml Documented by: Ondansetron HCl (Ondansetron Inj 2 Mg/Ml 2 Ml Vial) 4 mg IV Q6H PRN PRN Reason: Nausea Stop: 07/14/21 02:19 Last Admin: 06/23/21 12:51 Dose: 4 mg Documented by: Ondansetron HCl (Ondansetron 4 Mg Od Tab) 4 mg PO Q6H PRN PRN Reason: Nausea And Vomiting Stop: 07/14/21 02:55 Phenol (Chloraseptic 1.4% Soln 180 Ml Btl) 2 sprays MT QID PRN PRN Reason: sore throat Stop: 07/20/21 10:48 Polyethylene Glycol (Polyethylene (Miralax) 17 Gm Pack) 17 gm PO BID PRN PRN Reason: Constipation Stop: 07/18/21 17:28 Last Admin: 06/20/21 11:03 Dose: 17 gm Documented by: Raspberry (Raspberry Syrup 5 Ml Udp) 5 ml PO Q6 [facility] Stop: 06/28/21 05:59 Last Admin: 06/25/21 17:37 Dose: 5 ml Documented by: Rosuvastatin Calcium (Rosuvastatin Calcium 10 Mg Tab) 10 mg PO QPM [facility] Stop: 07/14/21 20:59 Last Admin: 06/17/21 21:42 Dose: 10 mg Documented by: Saccharomyces Boulardii (Saccharomyces Boulardii 250 Mg Cap) 250 mg PO DAILY [facility] Stop: 07/23/21 08:59 Last Admin: 06/25/21 09:07 Dose: 250 mg Documented by: Senna/Docusate Sodium (Docusate Sodium/Senna 50/8.6mg Tab) 1 tab PO HS PRN PRN Reason: constipation Stop: 07/20/21 20:59 Last Admin: 06/23/21 21:07 Dose: 1 tab Documented by: Senna/Docusate Sodium (Docusate Sodium/Senna 50/8.6mg Tab) 1 tab PO QAM [facility] Stop: 07/24/21 08:59 Last Admin: 06/25/21 09:04 Dose: 1 tab Documented by: Sodium Chloride (Sodium Chloride 0.65% Na Soln 45 Ml ([place])) 2 sprays NA QID PRN PRN Reason: dry nose Stop: 07/20/21 10:48 Vancomycin HCl (Vancomycin Hcl 125 Mg/2.5ml Soln) 125 mg PO Q6 [facility] Stop: 06/28/21 11:59 Last Admin: 06/25/21 17:37 Dose: 125 mg Documented by:
[2021-06-25] MEDS: FAMOTIDINE 20 MG TAB PO SCH (20:51)
[2021-06-25] MEDS: POLYETHYLENE (MIRALAX) 17 GM PACK PO PRN (21:03)
[2021-06-25] MEDS: ACETAMINOPHEN 325 MG TAB PO PRN (21:04)
[2021-06-26 06:10] LABS: BUN Creatinine Ratio 8.3 (10-20); Calcium 9.1 mg/dl (8.5-10.1); Creatinine Clr Calc Pharmacy 28.6 ml/min; Est GFR (African American) 31.3 ml/min; Magnesium 1.9 mg/dl (1.8-2.4); Potassium 3.5 mmol/L (3.5-5.1)
[2021-06-26] MEDS: ISOSORBIDE DINITRATE 20 MG TAB PO SCH ×3 (06:30→17:55)
[2021-06-26] MEDS: RASPBERRY SYRUP 5 ML UDP PO SCH ×4 (06:30→23:30)
[2021-06-26] MEDS: VANCOMYCIN HCL 125 MG/2.5ML SOLN PO SCH ×4 (06:30→23:30)
[2021-06-26] MEDS: GLYCERIN ADULT 12 SUPP/BOX SUPP PR PRN (06:33)
[2021-06-26] MEDS: SACCHAROMYCES BOULARDII 250 MG CAP PO SCH (08:42)
[2021-06-26] MEDS: LIDOCAINE 5% 1 PATCH TD SCH (08:42)
[2021-06-26] MEDS: HEPARIN SOD 5,000 UNIT/0.5 ML VIAL SQ SCH ×2 (08:43→21:20)
[2021-06-26] MEDS: FAMOTIDINE 20 MG TAB PO SCH ×2 (08:43→21:20)
[2021-06-26] MEDS: DOCUSATE SODIUM/SENNA 50/8.6MG TAB PO SCH (08:43)
[2021-06-26] MEDS: ASPIRIN 81 MG ECTAB PO SCH (08:44)
[2021-06-26] MEDS: hydrALAZINE TAB 50 MG TAB PO SCH ×3 (08:44→21:19)
[2021-06-26] MEDS: FUROSEMIDE 40 MG TAB PO SCH (08:45)
[2021-06-26] MEDS: carvediloL 25 MG TAB PO SCH ×2 (08:47→21:17)
[2021-06-26] MEDS: INSULIN ASPART 100 UNITS/ML 3 ML PEN SC SCH ×4 (08:51→21:18)
[2021-06-26] MEDS: INSULIN GLARGINE SOLOSTAR 100 UNITS/ML 3 ML PEN SC SCH ×2 (08:52→21:18)
[2021-06-26] MEDS: ACETAMINOPHEN 500 MG TAB PO SCH ×2 (08:57→21:17)
[2021-06-26] MEDS: PROMETHAZINE HCL 12.5 MG in SODIUM CHLORIDE 0.9% 50 ML IV PRN (11:06)
[2021-06-26] MEDS: allopurinoL 100 MG TAB PO SCH (12:19)
[2021-06-26] MEDS ORDERED: SOD PHOSPHATE/SOD BIPHOSPHATE ENEMA 132 ML BTL PR STA (13:55)
--- NOTE | 2021-06-26 16:50 | Hospitalist Progress Note ---
Date of Service June 26, 2021 Assessment & Plan (1) C. difficile colitis: Plan: Recent admission for acute diverticulitis one month ago Completed antibiotic course. CT abd pel on 06/13 (this admission) revealed improved diverticulitis and she tested positive for c diff Started on oral vanc and IV flagyl with GI in agreement with this with taper recommended post discharge. Leukocytosis has improved since admission Despite no narcotic use, she began having bloating, persistent nausea and abdominal discomfort as well as constipation. Concern for ileus vs obstruction-repeat KUB on 06/18-negative, repeat CT a/p wo contrast-negative for structural abnormality or obstruction/ileus Improved on bowel rest with some BMs overnight and improvement in abdominal exam Stopped flagyl in hopes this would help. So far she is still having significant nausea with eating--started ivf and probiotics--question diabetic gastroparesis vs constipation induced nausea? Is nausea possibly 2/2 Nystatin-holding this now. Is nausea related to raspberry syrup from liquid vanc? Discuss with pharmacy about switching to a pull version if on formulary. IVF caused hypoxia--stopped and given Lasix, much improved. Cont supportive care efforts and aggressive treatment of constipation. Cannot take any big capsule-we will need to give vancomycin liquid on discharge Likely discharge tomorrow Abdominal pain Denies any pain but has discomfort secondary to constipation Has been receiving laxatives Bowel movement yesterday 06/24/2021 We will give Fleet enema and adjust the laxatives (2) Anemia: Plan: chronic, multifactorial. Hold iron in setting of constipation. Bowel has been moving (3) DMII (diabetes mellitus, type 2): Plan: At goal on basal bolus insulin here. Cont to follow closely. Nausea and vomiting could be secondary to gastroparesis Has been improving (4) Thrush: Plan: Hold nystatin--could this now be contributing to her nausea? (5) Nocturnal hypoxemia: Plan: Cont oxygen supplementation as needed. (6) Chronic kidney disease (CKD), stage IV (severe): Plan: Chronic, at her baseline. Creatinine remains at 1.69 stable (7) Spinal stenosis: Plan: Chronic, controlled, but her ability to ambulate is impeded by this per her report. PT assessed her while here and ok with return home. Encouraged ambulation with her walker to help move bowels. (8) Obesity: Plan: lifestyle changes recommended (9) DVT prophylaxis: Plan: Heparin FUll Dispo-uncertain, pending improvement in abdominal issues. Admission and Anticipated Discharge Date Admission Date: June 13, 2021 Subjective 06/25/2021 The patient was seen and examined in medical floor She has been feeling much better today and denies any more nausea and/or vomiting She has not had a bowel movement today and feels a little bit bloated but does not want any further enema She wants to go home 06/26/2021 The patient was seen and examined in medical floor She has been complaining of abdominal discomfort Her bowel has not moved as of today Denies any more nausea or vomiting Review of Systems Review of Systems: All systems reviewed and are unremarkable except as noted below Gastrointestinal: Mild abdominal distention with discomfort but no pain, vomiting Physical Exam Physical Exam: Lying in bed comfortably Constitutional: well developed, well nourished, + ill appearing and + obese Eyes: PERRL, conjunctivae normal, anicteric sclerae ENMT: external ear and nose normal, oropharynx normal Neck: trachea midline, no thyromegaly Respiratory: no respiratory distress Auscultation: lungs clear to ausculta tion bilaterally Cardiovascular: Rate/Rhythm: regular rate and regular rhythm; not tachycardic Heart Sounds: normal S1 and normal S2; no murmur Extremities: + edema (Trace edema bilaterally) Gastrointestinal (Abdomen): Inspection/Auscultation: + abdomen distended and normal bowel sounds Percussion/Palpation: + abdomen tender (Mildly tender all over) and abdomen soft; no guarding and abdomen not rigid Musculoskeletal: No acute arthritis in any joint Neurologic: Alert, awake and oriented x3.generally weak. Results & Data Results & Data ([facility]) Vital Signs (Past 12 Hours) Vital Signs Temp Pulse Resp BP Pulse Ox 06/26/21 15:44 36.6 C 71 18 146/73 H 99 06/26/21 14:52 36.8 C 76 18 155/79 H 100 06/26/21 08:47 74 185/80 H 90 06/26/21 07:07 36.8 C 57 L 17 172/73 H 98 Laboratory Results [facility] 06/26/21 05:23 Sodium 143 Potassium 3.5 Chloride 112 H Carbon Dioxide 27 BUN 14 Creatinine 1.69 H Glucose 96 Calcium 9.1 Medications Administered Current Inpatient Medications Acetaminophen (Acetaminophen 325 Mg Tab) 650 mg PO Q4H PRN PRN Reason: Pain or Fever Stop: 07/14/21 02:19 Last Admin: 06/25/21 21:04 Dose: 650 mg Documented by: Acetaminophen (Acetaminophen 500 Mg Tab) 1,000 mg PO BID [facility] Stop: 07/14/21 08:59 Last Admin: 06/26/21 08:57 Dose: 1,000 mg Documented by: Allopurinol (Allopurinol 100 Mg Tab) 200 mg PO DAILY@1200 [facility] Stop: 07/14/21 11:59 Last Admin: 06/26/21 12:19 Dose: 200 mg Documented by: Aspirin (Aspirin 81 Mg Ectab) [facility] [place] Stop: 07/14/21 08:59 Last Admin: 06/26/21 08:44 Dose: 81 mg Documented by: Carvedilol (Carvedilol 25 Mg Tab) 25 mg PO BID [facility] Stop: 07/14/21 08:59 Last Admin: 06/26/21 08:47 Dose: 25 mg Documented by: Cyanocobalamin (Cyanocobalamin 500 Mcg Tablet (Vitamin B-12)) 500 [facility] [place] Stop: 07/14/21 08:59 Last Admin: 06/18/21 09:23 Dose: 500 mcg Documented by: Dextrose (Dextrose 50% 50 Ml Syringe) 25 - 50 ml IV UD PRN; Protocol PRN Reason: Hypoglycemia Protocol Stop: 07/14/21 02:59 Diclofenac Sodium (Diclofenac Sod 1% Gel 100 Gm Tube) 4 gm EXT QID PRN PRN Reason: Pain Stop: 07/14/21 02:19 Famotidine (Famotidine 20 Mg Tab) 20 mg PO BID [facility] Stop: 07/25/21 20:59 Last Admin: 06/26/21 08:43 Dose: 20 mg Documented by: Ferrous Sulfate (Ferrous Sulfate 325 Mg Tab) [facility] [place] Stop: 07/14/21 08:59 Last Admin: 06/18/21 09:23 Dose: 325 mg Documented by: Folic Acid (Folic Acid 1 Mg Tab) 1 mg PO QAM [facility] Stop: 07/14/21 08:59 Last Admin: 06/18/21 09:23 Dose: 1 mg Documented by: Furosemide (Furosemide 40 Mg Tab) 40 mg PO QAM [facility] Stop: 07/25/21 08:59 Last Admin: 06/26/21 08:45 Dose: 40 mg Documented by: Glucagon (Glucagon For Inj 1 Mg Vial) 1 mg IM UD PRN; Protocol PRN Reason: Hypoglycemia Protocol Stop: 07/14/21 02:59 Glucose (Glucose 40% Gel 15 Gm Tube) 15 - 30 gm PO UD PRN; Protocol PRN Reason: Hypoglycemia Protocol Stop: 07/14/21 02:59 Glucose (Glucose 10 Tabs/Tube) 4 - 8 tabs PO UD PRN; Protocol PRN Reason: Hypoglycemia Protocol Stop: 07/14/21 02:59 Glycerin (Glycerin Adult 12 Supp/Box Supp) 1 supp [place] DAILY PRN PRN Reason: Constipation Stop: 07/24/21 08:33 Last Admin: 06/26/21 06:33 Dose: 1 supp Documented by: Heparin Sodium (Porcine) (Heparin Sod 5,000 Unit/0.5 Ml Vial) 5,000 units SQ Q12 [facility] Stop: 07/14/21 08:59 Last Admin: 06/26/21 08:43 Dose: 5,000 units Documented by: Hydralazine HCl (Hydralazine Tab 50 Mg Tab) 100 mg PO TID [facility] Stop: 07/18/21 04:24 Last Admin: 06/26/21 14:53 Dose: 100 mg Documented by: Promethazine HCl 12.5 mg/ (Sodium Chloride) 50.5 mls @ 202 mls/hr IV Q6H PRN PRN Reason: Nausea And Vomiting Stop: 07/20/21 18:40 Last Infusion: 06/26/21 11:21 Dose: Infused Documented by: Insulin Aspart (Insulin Aspart 100 Units/Ml 3 Ml Pen) 0 units SC ACHS [facility] Stop: 07/21/21 16:29 Last Admin: 06/26/21 12:24 Dose: 6 units Documented by: Insulin Glargine (Insulin Glargine Solostar 100 Units/Ml 3 Ml Pen) 15 units SC BID [facility] Stop: 07/14/21 08:59 Last Admin: 06/26/21 08:52 Dose: 15 units Documented by: Isosorbide Dinitrate (Isosorbide Dinitrate 20 Mg Tab) 20 mg PO 0700,1200,1700 [facility] Stop: 07/14/21 06:59 Last Admin: 06/26/21 12:19 Dose: 20 mg Documented by: Lidocaine (Lidocaine 5% 1 Patch) 1 patch TD QAM [facility] Stop: 07/14/21 08:59 Last Admin: 06/26/21 08:42 Dose: Not Given Documented by: Miscellaneous (Remove Lidoderm Patch) 1 ea N/A DAILY@2100 [facility] Stop: 07/14/21 20:59 Last Admin: 06/25/21 20:52 Dose: Not Given Documented by: Miscellaneous (Carbohydrates For Hypoglycemia ) 15 - 30 gm PO UD PRN PRN Reason: Hypoglycemia Treatment Stop: 07/14/21 02:59 Nitroglycerin (Nitroglycerin Sl 0.4 Mg/Tab Tab) 0.4 mg SL UD PRN PRN Reason: Chest Pain Stop: 07/14/21 02:19 Nystatin (Nystatin Susp 500,000 U/5 Ml Udc) 5 ml PO QID [facility] Stop: 06/29/21 12:59 Last Admin: 06/24/21 20:42 Dose: 5 ml Documented by: Ondansetron HCl (Ondansetron Inj 2 Mg/Ml 2 Ml Vial) 4 mg IV Q6H PRN PRN Reason: Nausea Stop: 07/14/21 02:19 Last Admin: 06/23/21 12:51 Dose: 4 mg Documented by: Ondansetron HCl (Ondansetron 4 Mg Od Tab) 4 mg PO Q6H PRN PRN Reason: Nausea And Vomiting Stop: 07/14/21 02:55 Phenol (Chloraseptic 1.4% Soln 180 Ml Btl) 2 sprays MT QID PRN PRN Reason: sore throat Stop: 07/20/21 10:48 Polyethylene Glycol (Polyethylene (Miralax) 17 Gm Pack) 17 gm PO BID PRN PRN Reason: Constipation Stop: 07/18/21 17:28 Last Admin: 06/25/21 21:03 Dose: 17 gm Documented by: Raspberry (Raspberry Syrup 5 Ml Udp) 5 ml PO Q6 [facility] Stop: 06/28/21 05:59 Last Admin: 06/26/21 12:18 Dose: 5 ml Documented by: Rosuvastatin Calcium (Rosuvastatin Calcium 10 Mg Tab) 10 mg PO QPM [facility] Stop: 07/14/21 20:59 Last Admin: 06/17/21 21:42 Dose: 10 mg Documented by: Saccharomyces Boulardii (Saccharomyces Boulardii 250 Mg Cap) 250 mg PO DAILY [facility] Stop: 07/23/21 08:59 Last Admin: 06/26/21 08:42 Dose: 250 mg Documented by: Senna/Docusate Sodium (Docusate Sodium/Senna 50/8.6mg Tab) 1 tab PO HS PRN PRN Reason: constipation Stop: 07/20/21 20:59 Last Admin: 06/23/21 21:07 Dose: 1 tab Documented by: Senna/Docusate Sodium (Docusate Sodium/Senna 50/8.6mg Tab) 1 tab PO QAM [facility] Stop: 07/24/21 08:59 Last Admin: 06/26/21 08:43 Dose: 1 tab Documented by: Sodium Chloride (Sodium Chloride 0.65% Na Soln 45 Ml ([place])) 2 sprays NA QID PRN PRN Reason: dry nose Stop: 07/20/21 10:48 Vancomycin HCl (Vancomycin Hcl 125 Mg/2.5ml Soln) 125 mg PO Q6 [facility] Stop: 06/28/21 11:59 Last Admin: 06/26/21 12:18 Dose: 125 mg Documented by:
[2021-06-27] MEDS: RASPBERRY SYRUP 5 ML UDP PO SCH ×4 (05:22→23:08)
[2021-06-27] MEDS: VANCOMYCIN HCL 125 MG/2.5ML SOLN PO SCH ×4 (05:22→23:09)
[2021-06-27] MEDS: ISOSORBIDE DINITRATE 20 MG TAB PO SCH ×3 (05:22→17:49)
[2021-06-27] MEDS: POLYETHYLENE (MIRALAX) 17 GM PACK PO PRN (05:27)
[2021-06-27] MEDS: FAMOTIDINE 20 MG TAB PO SCH ×2 (08:46→21:08)
[2021-06-27] MEDS: ASPIRIN 81 MG ECTAB PO SCH (08:46)
[2021-06-27] MEDS: LIDOCAINE 5% 1 PATCH TD SCH (08:47)
[2021-06-27] MEDS: FUROSEMIDE 40 MG TAB PO SCH (08:47)
[2021-06-27] MEDS: SACCHAROMYCES BOULARDII 250 MG CAP PO SCH (08:47)
[2021-06-27] MEDS: DOCUSATE SODIUM/SENNA 50/8.6MG TAB PO SCH (08:47)
[2021-06-27] MEDS: HEPARIN SOD 5,000 UNIT/0.5 ML VIAL SQ SCH ×2 (08:47→21:08)
[2021-06-27] MEDS: hydrALAZINE TAB 50 MG TAB PO SCH ×3 (08:48→21:08)
[2021-06-27] MEDS: carvediloL 25 MG TAB PO SCH ×2 (08:48→21:08)
[2021-06-27] MEDS: INSULIN ASPART 100 UNITS/ML 3 ML PEN SC SCH ×4 (08:49→21:09)
[2021-06-27] MEDS: INSULIN GLARGINE SOLOSTAR 100 UNITS/ML 3 ML PEN SC SCH ×2 (08:50→21:09)
[2021-06-27] MEDS: ACETAMINOPHEN 500 MG TAB PO SCH ×2 (08:54→21:17)
[2021-06-27] MEDS: allopurinoL 100 MG TAB PO SCH (13:00)
[2021-06-27] MEDS ORDERED: MAGNESIUM HYDROXIDE SUSP 30 ML UDC PO ONE ×2 (13:20→15:49)
--- NOTE | 2021-06-27 13:25 | Hospitalist Progress Note ---
Date of Service June 27, 2021 Assessment & Plan (1) C. difficile colitis: Plan: Recent admission for acute diverticulitis one month ago Completed antibiotic course. CT abd pel on 06/13 (this admission) revealed improved diverticulitis and she tested positive for c diff Started on oral vanc and IV flagyl with GI in agreement with this with taper recommended post discharge. Leukocytosis has improved since admission Despite no narcotic use, she began having bloating, persistent nausea and abdominal discomfort as well as constipation. Concern for ileus vs obstruction-repeat KUB on 06/18-negative, repeat CT a/p wo contrast-negative for structural abnormality or obstruction/ileus Improved on bowel rest with some BMs overnight and improvement in abdominal exam Stopped flagyl in hopes this would help. So far she is still having significant nausea with eating--started ivf and probiotics--question diabetic gastroparesis vs constipation induced nausea? Is nausea possibly 2/2 Nystatin-holding this now. Is nausea related to raspberry syrup from liquid vanc? Discuss with pharmacy about switching to a pull version if on formulary. IVF caused hypoxia--stopped and given Lasix, much improved. Cont supportive care efforts and aggressive treatment of constipation. Cannot take any big capsule-we will need to give vancomycin liquid on discharge Will continue vancomycin to finish the course Abdominal pain Denies any pain but has discomfort secondary to constipation Has been receiving laxatives Bowel movement yesterday 06/24/2021 We will give Fleet enema and adjust the laxatives Bowel has not been clear enough and he still has abdominal discomfort We will add milk of magnesia (2) Anemia: Plan: chronic, multifactorial. Hold iron in setting of constipation. Bowel has been moving (3) DMII (diabetes mellitus, type 2): Plan: At goal on basal bolus insulin here. Cont to follow closely. Nausea and vomiting could be secondary to gastroparesis Has been improving (4) Thrush: Plan: Hold nystatin--could this now be contributing to her nausea? (5) Nocturnal hypoxemia: Plan: Cont oxygen supplementation as needed. (6) Chronic kidney disease (CKD), stage IV (severe): Plan: Chronic, at her baseline. Creatinine remains at 1.69 stable (7) Spinal stenosis: Plan: Chronic, controlled, but her ability to ambulate is impeded by this per her report. PT assessed her while here and ok with return home. Encouraged ambulation with her walker to help move bowels. Has been ambulating without any difficulties (8) Obesity: Plan: lifestyle changes recommended (9) DVT prophylaxis: Plan: Heparin FUll Dispo-uncertain, pending improvement in abdominal issues. Likely to be discharged tomorrow Admission and Anticipated Discharge Date Admission Date: June 13, 2021 Subjective 06/25/2021 The patient was seen and examined in medical floor She has been feeling much better today and denies any more nausea and/or vomiting She has not had a bowel movement today and feels a little bit bloated but does not want any further enema She wants to go home 06/26/2021 The patient was seen and examined in medical floor She has been complaining of abdominal discomfort Her bowel has not moved as of today Denies any more nausea or vomiting 06/27/2021 The patient was seen and examined in medical floor Still complains to abdominal discomfort and bowel has not moved reasonably yet Denies any nausea no vomiting Review of Systems Review of Systems: All systems reviewed and are unremarkable except as noted below Gastrointestinal: Mild abdominal distention with discomfort but no pain, vomiting Physical Exam Physical Exam: Lying in bed comfortably Constitutional: well developed, well nourished, + ill appearing and + obese Eyes: PERRL, conjunctivae normal, anicteric sclerae ENMT: external ear and nose normal, oropharynx normal Neck: trachea midline, no thyromegaly Respiratory: no respiratory distress Auscultation: lungs clear to auscultation bilaterally Cardiovascular: Rate/Rhythm: regular rate and regular rhythm; not tachycardic Heart Sounds: normal S1 and normal S2; no murmur Extremities: + edema (Trace edema bilaterally) Gastrointestinal (Abdomen): Inspection/Auscultation: + abdomen distended and normal bowel sounds Percussion/Palpation: + abdomen tender (Mildly tender all over) and abdomen soft; no guarding and abdomen not rigid Musculoskeletal: No acute arthritis in any joint Neurologic: Alert, awake and oriented x3. No focal sensory and motor deficit appreciated but remains generally weak and lethargic Results & Data Results & Data ([facility]) Vital Signs (Past 12 Hours) Vital Signs Temp Pulse Resp BP Pulse Ox 06/27/21 07:37 36.5 C 75 18 170/82 H 93 Medications Administered Current Inpatient Medications Acetaminophen (Acetaminophen 325 Mg Tab) 650 mg PO Q4H PRN PRN Reason: Pain or Fever Stop: 07/14/21 02:19 Last Admin: 06/25/21 21:04 Dose: 650 mg Documented by: Acetaminophen (Acetaminophen 500 Mg Tab) 1,000 mg PO BID [facility] Stop: 07/14/21 08:59 Last Admin: 06/27/21 08:54 Dose: 1,000 mg Documented by: Allopurinol (Allopurinol 100 Mg Tab) 200 mg PO DAILY@1200 [facility] Stop: 07/14/21 11:59 Last Admin: 06/27/21 13:00 Dose: 200 mg Documented by: Aspirin (Aspirin 81 Mg Ectab) [facility] [place]: 07/14/21 08:59 Last Admin: 06/27/21 08:46 Dose: 81 mg Documented by: Carvedilol (Carvedilol 25 Mg Tab) 25 mg PO BID [facility] Stop: 07/14/21 08:59 Last Admin: 06/27/21 08:48 Dose: 25 mg Documented by: Cyanocobalamin (Cyanocobalamin 500 Mcg Tablet (Vitamin B-12)) [facility] [place]: 07/14/21 08:59 Last Admin: 06/18/21 09:23 Dose: 500 mcg Documented by: Dextrose (Dextrose 50% 50 Ml Syringe) 25 - 50 ml IV UD PRN; Protocol PRN Reason: Hypoglycemia Protocol Stop: 07/14/21 02:59 Diclofenac Sodium (Diclofenac Sod 1% Gel 100 Gm Tube) 4 gm EXT QID PRN PRN Reason: Pain Stop: 07/14/21 02:19 Famotidine (Famotidine 20 Mg Tab) 20 mg PO BID [facility] Stop: 07/25/21 20:59 Last Admin: 06/27/21 08:46 Dose: 20 mg Documented by: Ferrous Sulfate (Ferrous Sulfate 325 Mg Tab) [facility] [place] 07/14/21 08:59 Last Admin: 06/18/21 09:23 Dose: 325 mg Documented by: Folic Acid (Folic Acid 1 Mg Tab) [facility] [place]: 07/14/21 08:59 Last Admin: 06/18/21 09:23 Dose: 1 mg Documented by: Furosemide (Furosemide 40 Mg Tab) 40 mg PO [facility] Stop: 07/25/21 08:59 Last Admin: 06/27/21 08:47 Dose: 40 mg Documented by: Glucagon (Glucagon For Inj 1 Mg Vial) 1 mg IM UD PRN; Protocol PRN Reason: Hypoglycemia Protocol Stop: 07/14/21 02:59 Glucose (Glucose 40% Gel 15 Gm Tube) 15 - 30 gm PO UD PRN; Protocol PRN Reason: Hypoglycemia Protocol Stop: 07/14/21 02:59 Glucose (Glucose 10 Tabs/Tube) 4 - 8 tabs PO UD PRN; Protocol PRN Reason: Hypoglycemia Protocol Stop: 07/14/21 02:59 Glycerin (Glycerin Adult 12 Supp/Box Supp) 1 supp [place] DAILY PRN PRN Reason: Constipation Stop: 07/24/21 08:33 Last Admin: 06/26/21 06:33 Dose: 1 supp Documented by: Heparin Sodium (Porcine) (Heparin Sod 5,000 Unit/0.5 Ml Vial) 5,000 units SQ Q12 [facility] Stop: 07/14/21 08:59 Last Admin: 06/27/21 08:47 Dose: 5,000 units Documented by: Hydralazine HCl (Hydralazine Tab 50 Mg Tab) 100 mg PO TID [facility] Stop: 07/18/21 04:24 Last Admin: 06/27/21 13:00 Dose: 100 mg Documented by: Promethazine HCl 12.5 mg/ (Sodium Chloride) 50.5 mls @ 202 mls/hr IV Q6H PRN PRN Reason: Nausea And Vomiting Stop: 07/20/21 18:40 Last Infusion: 06/26/21 11:21 Dose: Infused Documented by: Insulin Aspart (Insulin Aspart 100 Units/Ml 3 Ml Pen) 0 units SC ACHS [facility] Stop: 07/21/21 16:29 Last Admin: 06/27/21 13:00 Dose: 5 units Documented by: Insulin Glargine (Insulin Glargine Solostar 100 Units/Ml 3 Ml Pen) 15 units SC BID [facility] Stop: 07/14/21 08:59 Last Admin: 06/27/21 08:50 Dose: 15 units Documented by: Isosorbide Dinitrate (Isosorbide Dinitrate 20 Mg Tab) 20 mg PO 0700,1200,1700 [facility] Stop: 07/14/21 06:59 Last Admin: 06/27/21 12:59 Dose: 20 mg Documented by: Lidocaine (Lidocaine 5% 1 Patch) [facility]: 07/14/21 08:59 Last Admin: 06/27/21 08:47 Dose: Not Given Documented by: Magnesium Hydroxide (Magnesium Hydroxide Susp 30 Ml Udc) 30 ml PO NOW ONE Stop: 06/27/21 13:21 Miscellaneous (Remove Lidoderm Patch) 1 ea N/A DAILY@2100 [facility] Stop: 07/14/21 20:59 Last Admin: 06/26/21 21:21 Dose: Not Given Documented by: Miscellaneous (Carbohydrates For Hypoglycemia ) 15 - 30 gm PO UD PRN PRN Reason: Hypoglycemia Treatment Stop: 07/14/21 02:59 Nitroglycerin (Nitroglycerin Sl 0.4 Mg/Tab Tab) 0.4 mg SL UD PRN PRN Reason: Chest Pain Stop: 07/14/21 02:19 Nystatin (Nystatin Susp 500,000 U/5 Ml Udc) 5 ml PO QID [facility] Stop: 06/29/21 12:59 Last Admin: 06/24/21 20:42 Dose: 5 ml Documented by: Ondansetron HCl (Ondansetron Inj 2 Mg/Ml 2 Ml Vial) 4 mg IV Q6H PRN PRN Reason: Nausea Stop: 07/14/21 02:19 Last Admin: 06/23/21 12:51 Dose: 4 mg Documented by: Ondansetron HCl (Ondansetron 4 Mg Od Tab) 4 mg PO Q6H PRN PRN Reason: Nausea And Vomiting Stop: 07/14/21 02:55 Phenol (Chloraseptic 1.4% Soln 180 Ml Btl) 2 sprays MT QID PRN PRN Reason: sore throat Stop: 07/20/21 10:48 Polyethylene Glycol (Polyethylene (Miralax) 17 Gm Pack) 17 gm PO BID PRN PRN Reason: Constipation Stop: 07/18/21 17:28 Last Admin: 06/27/21 05:27 Dose: 17 gm Documented by: Raspberry (Raspberry Syrup 5 Ml Udp) 5 ml PO Q6 [facility] Stop: 06/28/21 05:59 Last Admin: 06/27/21 12:59 Dose: 5 ml Documented by: Rosuvastatin Calcium (Rosuvastatin Calcium 10 Mg Tab) 10 mg PO QPM [facility] Stop: 07/14/21 20:59 Last Admin: 06/17/21 21:42 Dose: 10 mg Documented by: Saccharomyces Boulardii (Saccharomyces Boulardii 250 Mg Cap) 250 mg PO DAILY [facility] Stop: 07/23/21 08:59 Last Admin: 06/27/21 08:47 Dose: 250 mg Documented by: Senna/Docusate Sodium (Docusate Sodium/Senna 50/8.6mg Tab) 1 tab PO HS PRN PRN Reason: constipation Stop: 07/20/21 20:59 Last Admin: 06/23/21 21:07 Dose: 1 tab Documented by: Senna/Docusate Sodium (Docusate Sodium/Senna 50/8.6mg Tab) 1 tab PO QAM [facility] Stop: 07/24/21 08:59 Last Admin: 06/27/21 08:47 Dose: 1 tab Documented by: Sodium Chloride (Sodium Chloride 0.65% Na Soln 45 Ml ([place])) 2 sprays NA QID PRN PRN Reason: dry nose Stop: 07/20/21 10:48 Vancomycin HCl (Vancomycin Hcl 125 Mg/2.5ml Soln) 125 mg PO Q6 [facility] Stop: 06/28/21 11:59 Last Admin: 06/27/21 12:59 Dose: 125 mg Documented by:
[2021-06-28] MEDS: VANCOMYCIN HCL 125 MG/2.5ML SOLN PO SCH (05:54)
[2021-06-28] MEDS: RASPBERRY SYRUP 5 ML UDP PO SCH (05:55)
[2021-06-28] MEDS: ISOSORBIDE DINITRATE 20 MG TAB PO SCH ×3 (05:55→17:30)
[2021-06-28] MEDS: ASPIRIN 81 MG ECTAB PO SCH (08:34)
[2021-06-28] MEDS: carvediloL 25 MG TAB PO SCH ×2 (08:36→19:48)
[2021-06-28] MEDS: DOCUSATE SODIUM/SENNA 50/8.6MG TAB PO SCH (08:37)
[2021-06-28] MEDS: FAMOTIDINE 20 MG TAB PO SCH ×2 (08:37→19:49)
[2021-06-28] MEDS: FUROSEMIDE 40 MG TAB PO SCH (08:37)
[2021-06-28] MEDS: SACCHAROMYCES BOULARDII 250 MG CAP PO SCH (08:38)
[2021-06-28] MEDS: LIDOCAINE 5% 1 PATCH TD SCH (08:38)
[2021-06-28] MEDS: hydrALAZINE TAB 50 MG TAB PO SCH ×3 (08:38→19:48)
[2021-06-28] MEDS: HEPARIN SOD 5,000 UNIT/0.5 ML VIAL SQ SCH ×2 (08:39→19:50)
[2021-06-28] MEDS: INSULIN ASPART 100 UNITS/ML 3 ML PEN SC SCH ×4 (08:41→21:48)
[2021-06-28] MEDS: INSULIN GLARGINE SOLOSTAR 100 UNITS/ML 3 ML PEN SC SCH ×2 (08:42→21:49)
[2021-06-28] MEDS: ACETAMINOPHEN 500 MG TAB PO SCH ×2 (08:46→19:51)
[2021-06-28] MEDS: allopurinoL 100 MG TAB PO SCH (12:36)
--- NOTE | 2021-06-28 14:16 | Hospitalist Progress Note ---
Date of Service June 28, 2021 Assessment & Plan (1) C. difficile colitis: Plan: Recent admission for acute diverticulitis one month ago Completed antibiotic course. CT abd pel on 06/13 (this admission) revealed improved diverticulitis and she tested positive for c diff Started on oral vanc and IV flagyl with GI in agreement with this with taper recommended post discharge. Leukocytosis has improved since admission Despite no narcotic use, she began having bloating, persistent nausea and abdominal discomfort as well as constipation. Concern for ileus vs obstruction-repeat KUB on 06/18-negative, repeat CT a/p wo contrast-negative for structural abnormality or obstruction/ileus Improved on bowel rest with some BMs overnight and improvement in abdominal exam Stopped flagyl in hopes this would help. So far she is still having significant nausea with eating--started ivf and probiotics--question diabetic gastroparesis vs constipation induced nausea? Is nausea possibly 2/2 Nystatin-holding this now. Is nausea related to raspberry syrup from liquid vanc? Discuss with pharmacy about switching to a pull version if on formulary. IVF caused hypoxia--stopped and given Lasix, much improved. Cont supportive care efforts and aggressive treatment of constipation. Cannot take any big capsule-we will need to give vancomycin liquid on discharge Will continue vancomycin to finish the course as advised by the GI Abdominal pain Denies any pain but has discomfort secondary to constipation Has been receiving laxatives Bowel movement yesterday 06/24/2021 We will give Fleet enema and adjust the laxatives Bowel has not been clear enough and he still has abdominal discomfort We will add milk of magnesia Minimal abdominal pain and is confined to right lower quadrant without guarding and rigidity Advised to ambulate more and likely discharge tomorrow (2) Anemia: Plan: chronic, multifactorial. Hold iron in setting of constipation. Bowel has been moving (3) DMII (diabetes mellitus, type 2): Plan: At goal on basal bolus insulin here. Cont to follow closely. Nausea and vomiting could be secondary to gastroparesis Has been improving (4) Thrush: Plan: Hold nystatin--could this now be contributing to her nausea? (5) Nocturnal hypoxemia: Plan: Cont oxygen supplementation as needed. (6) Chronic kidney disease (CKD), stage IV (severe): Plan: Chronic, at her baseline. Creatinine remains at 1.69 stable (7) Spinal stenosis: Plan: Chronic, controlled, but her ability to ambulate is impeded by this per her report. PT assessed her while here and ok with return home. Encouraged ambulation with her walker to help move bowels. Has been ambulating without any difficulties (8) Obesity: Plan: lifestyle changes recommended (9) DVT prophylaxis: Plan: Heparin FUll Dispo-uncertain, pending improvement in abdominal issues. Likely to be discharged tomorrow Admission and Anticipated Discharge Date Admission Date: June 13, 2021 Subjective 06/25/2021 The patient was seen and examined in medical floor She has been feeling much better today and denies any more nausea and/or vomiting She has not had a bowel movement today and feels a little bit bloated but does not want any further enema She wants to go home 06/26/2021 The patient was seen and examined in medical floor She has been complaining of abdominal discomfort Her bowel has not moved as of today Denies any more nausea or vomiting 06/27/2021 The patient was seen and examined in medical floor Still complains to abdominal discomfort and bowel has not moved reasonably yet Denies any nausea no vomiting 06/28/2021 The patient was seen and examined in medical floor She complains of pain in the right lower quadrant without guarding and rigidity She has been moving her bowel but very scantly Review of Systems Review of Systems: All systems reviewed and are unremarkable except as noted below Gastrointestinal: Mild abdominal distention with discomfort but no pain, vomiting Physical Exam Physical Exam: Lying in bed comfortably Constitutional: well developed, well nourished, + ill appearing and + obese Eyes: PERRL, conjunctivae normal, anicteric sclerae ENMT: external ear and nose normal, oropharynx normal Neck: trachea midline, no thyromegaly Respiratory: no respiratory distress Auscultation: lungs clear to auscultation bilaterally Cardiovascular: Rate/Rhythm: regular rate and regular rhythm; not tachycardic Heart Sounds: normal S1 and normal S2; no murmur Extremities: + edema (T race edema bilaterally) Gastrointestinal (Abdomen): Inspection/Auscultation: + abdomen distended and normal bowel sounds Percussion/Palpation: + abdomen tender (Minimally tender right lower quadrant without any guarding and rigidity) and abdomen soft; no guarding and abdomen not rigid Neurologic: Alert, awake and oriented x3. Generally weak Lymphatic: no cervical or axillary lymphadenopathy Results & Data Results & Data ([facility]) Vital Signs (Past 12 Hours) Vital Signs Temp Pulse Resp BP Pulse Ox 06/28/21 12:35 161/73 H 06/28/21 08:36 80 169/77 H 06/28/21 07:54 36.6 C 72 18 172/76 H 94 Medications Administered Current Inpatient Medications Acetaminophen (Acetaminophen 325 Mg Tab) 650 mg PO Q4H PRN PRN Reason: Pain or Fever Stop: 07/14/21 02:19 Last Admin: 06/25/21 21:04 Dose: 650 mg Documented by: Acetaminophen (Acetaminophen 500 Mg Tab) 1,000 mg PO BID [facility] Stop: 07/14/21 08:59 Last Admin: 06/28/21 08:46 Dose: 1,000 mg Documented by: Allopurinol (Allopurinol 100 Mg Tab) 200 mg PO DAILY@1200 [facility] Stop: 07/14/21 11:59 Last Admin: 06/28/21 12:36 Dose: 200 mg Documented by: Aspirin (Aspirin 81 Mg Ectab) 81 mg PO QAM [facility] Stop: 07/14/21 08:59 Last Admin: 06/28/21 08:34 Dose: 81 mg Documented by: Carvedilol (Carvedilol 25 Mg Tab) 25 mg PO BID [facility] Stop: 07/14/21 08:59 Last Admin: 06/28/21 08:36 Dose: 25 mg Documented by: Cyanocobalamin (Cyanocobalamin 500 Mcg Tablet (Vitamin B-12)) 500 mcg PO QAM [facility] Stop: 07/14/21 08:59 Last Admin: 06/18/21 09:23 Dose: 500 mcg Documented by: Dextrose (Dextrose 50% 50 Ml Syringe) 25 - 50 ml IV UD PRN; Protocol PRN Reason: Hypoglycemia Protocol Stop: 07/14/21 02:59 Diclofenac Sodium (Diclofenac Sod 1% Gel 100 Gm Tube) 4 gm EXT QID PRN PRN Reason: Pain Stop: 07/14/21 02:19 Famotidine (Famotidine 20 Mg Tab) 20 mg PO BID [facility] Stop: 07/25/21 20:59 Last Admin: 06/28/21 08:37 Dose: 20 mg Documented by: Ferrous Sulfate (Ferrous Sulfate 325 Mg Tab) 325 mg PO QAM [facility] Stop: 07/14/21 08:59 Last Admin: 06/18/21 09:23 Dose: 325 mg Documented by: Folic Acid (Folic Acid 1 Mg Tab) 1 mg PO QAM [facility] Stop: 07/14/21 08:59 Last Admin: 06/18/21 09:23 Dose: 1 mg Documented by: Furosemide (Furosemide 40 Mg Tab) 40 mg PO QAM [facility] Stop: 07/25/21 08:59 Last Admin: 06/28/21 08:37 Dose: 40 mg Documented by: Glucagon (Glucagon For Inj 1 Mg Vial) 1 mg IM UD PRN; Protocol PRN Reason: Hypoglycemia Protocol Stop: 07/14/21 02:59 Glucose (Glucose 40% Gel 15 Gm Tube) 15 - 30 gm PO UD PRN; Protocol PRN Reason: Hypoglycemia Protocol Stop: 07/14/21 02:59 Glucose (Glucose 10 Tabs/Tube) 4 - 8 tabs PO UD PRN; Protocol PRN Reason: Hypoglycemia Protocol Stop: 07/14/21 02:59 Glycerin (Glycerin Adult 12 Supp/Box Supp) 1 supp ID DAILY PRN PRN Reason: Constipation Stop: 07/24/21 08:33 Last Admin: 06/26/21 06:33 Dose: 1 supp Documented by: Heparin Sodium (Porcine) (Heparin Sod 5,000 Unit/0.5 Ml Vial) 5,000 units SQ Q12 [facility] Stop: 07/14/21 08:59 Last Admin: 06/28/21 08:39 Dose: 5,000 units Documented by: Hydralazine HCl (Hydralazine Tab 50 Mg Tab) 100 mg PO TID [facility] Stop: 07/18/21 04:24 Last Admin: 06/28/21 08:38 Dose: 100 mg Documented by: Promethazine HCl 12.5 mg/ (Sodium Chloride) 50.5 mls @ 202 mls/hr IV Q6H PRN PRN Reason: Nausea And Vomiting Stop: 07/20/21 18:40 Last Infusion: 06/26/21 11:21 Dose: Infused Documented by: Insulin Aspart (Insulin Aspart 100 Units/Ml 3 Ml Pen) 0 units SC ACHS [facility] Stop: 07/21/21 16:29 Last Admin: 06/28/21 12:43 Dose: 8 units Documented by: Insulin Glargine (Insulin Glargine Solostar 100 Units/Ml 3 Ml Pen) 15 units SC BID [facility] Stop: 07/14/21 08:59 Last Admin: 06/28/21 08:42 Dose: 15 units Documented by: Isosorbide Dinitrate (Isosorbide Dinitrate 20 Mg Tab) 20 mg PO 0700,1200,1700 [facility] Stop: 07/14/21 06:59 Last Admin: 06/28/21 12:36 Dose: 20 mg Documented by: Lidocaine (Lidocaine 5% 1 Patch) 1 patch TD QAM [facility] Stop: 07/14/21 08:59 Last Admin: 06/28/21 08:38 Dose: Not Given Documented by: Miscellaneous (Remove Lidoderm Patch) 1 ea N/A DAILY@2100 [facility] Stop: 07/14/21 20:59 Last Admin: 06/27/21 21:24 Dose: Not Given Documented by: Miscellaneous (Carbohydrates For Hypoglycemia ) 15 - 30 gm PO UD PRN PRN Reason: Hypoglycemia Treatment Stop: 07/14/21 02:59 Nitroglycerin (Nitroglycerin Sl 0.4 Mg/Tab Tab) 0.4 mg SL UD PRN PRN Reason: Chest Pain Stop: 07/14/21 02:19 Nystatin (Nystatin Susp 500,000 U/5 Ml Udc) 5 ml PO QID [facility] Stop: 06/29/21 12:59 Last Admin: 06/24/21 20:42 Dose: 5 ml Documented by: Ondansetron HCl (Ondansetron Inj 2 Mg/Ml 2 Ml Vial) 4 mg IV Q6H PRN PRN Reason: Nausea Stop: 07/14/21 02:19 Last Admin: 06/23/21 12:51 Dose: 4 mg Documented by: Ondansetron HCl (Ondansetron 4 Mg Od Tab) 4 mg PO Q6H PRN PRN Reason: Nausea And Vomiting Stop: 07/14/21 02:55 Phenol (Chloraseptic 1.4% Soln 180 Ml Btl) 2 sprays MT QID PRN PRN Reason: sore throat Stop: 07/20/21 10:48 Polyethylene Glycol (Polyethylene (Miralax) 17 Gm Pack) 17 gm PO BID PRN PRN Reason: Constipation Stop: 07/18/21 17:28 Last Admin: 06/27/21 05:27 Dose: 17 gm Documented by: Rosuvastatin Calcium (Rosuvastatin Calcium 10 Mg Tab) 10 mg PO QPM [facility] Stop: 07/14/21 20:59 Last Admin: 06/17/21 21:42 Dose: 10 mg Documented by: Saccharomyces Boulardii (Saccharomyces Boulardii 250 Mg Cap) 250 mg PO DAILY [facility] Stop: 07/23/21 08:59 Last Admin: 06/28/21 08:38 Dose: 250 mg Documented by: Senna/Docusate Sodium (Docusate Sodium/Senna 50/8.6mg Tab) 1 tab PO HS PRN PRN Reason: constipation Stop: 07/20/21 20:59 Last Admin: 06/23/21 21:07 Dose: 1 tab Documented by: Senna/Docusate Sodium (Docusate Sodium/Senna 50/8.6mg Tab) 1 tab PO QAM [facility] Stop: 07/24/21 08:59 Last Admin: 06/28/21 08:37 Dose: 1 tab Documented by: Sodium Chloride (Sodium Chloride 0.65% Na Soln 45 Ml ([place])) 2 sprays NA QID PRN PRN Reason: dry nose Stop: 07/20/21 10:48
[2021-06-28] MEDS: ONDANSETRON 4 MG OD TAB PO PRN (16:30)
[2021-06-28] MEDS ORDERED: MAGNESIUM HYDROXIDE SUSP 30 ML UDC PO ONE (17:35)
[2021-06-28] MEDS: SIMETHICONE 80 MG CHEW PO PRN (19:46)
[2021-06-29 06:14] LABS: Basophils # (auto) 0.03 K/uL (0-0.2); Basophils % (auto) 0.7 %; Eosinophils # (auto) 0.14 K/uL (0-0.5); Eosinophils % (auto) 3.1 %; Hematocrit (blood only) 30.8 % (37-47); Hemoglobin 9.7 g/dL (12.0-16.0); Immature Granulocytes # (auto) 0.03 K/uL (0.00-0.02); Immature Granulocytes % (auto) 0.7 %; Lymphocytes # (auto) 0.95 K/uL (1.2-3.4); Mean Corpuscular Hgb Conc 31.5 g/dL (32-36); Mean Corpuscular Volume 95.4 fL (80-100); Mean Platelet Volume 9.7 fL (7.4-10.4); Monocytes # (auto) 0.78 K/uL (0.11-0.59); Monocytes % (auto) 17.2 %; Neutrophils % (auto) 57.3 %; Platelet Count 265 K/uL (130-400); RDW Standard Deviation 58.8 fL (36.4-46.3); Red Blood Count 3.23 M/uL (4.2-5.4); White Blood Count 4.53 K/uL (4.8-10.8)
[2021-06-29] MEDS: ISOSORBIDE DINITRATE 20 MG TAB PO SCH ×3 (06:22→17:19)
[2021-06-29 06:52] LABS: BUN Creatinine Ratio 9.7 (10-20); Calcium 9.2 mg/dl (8.5-10.1); Creatinine Clr Calc Pharmacy 28.2 ml/min; Est GFR (African American) 30.9 ml/min; Est GFR (Non-African American) 26.6 ml/min; Potassium 3.4 mmol/L (3.5-5.1)
[2021-06-29] MEDS ORDERED: POTASSIUM CHLORIDE CRTAB 20 MEQ TABCR PO STA (07:54)
[2021-06-29] MEDS: INSULIN ASPART 100 UNITS/ML 3 ML PEN SC SCH ×4 (08:47→20:53)
[2021-06-29] MEDS: INSULIN GLARGINE SOLOSTAR 100 UNITS/ML 3 ML PEN SC SCH ×2 (08:47→20:52)
[2021-06-29] MEDS: FAMOTIDINE 20 MG TAB PO SCH ×2 (08:48→21:01)
[2021-06-29] MEDS: FUROSEMIDE 40 MG TAB PO SCH (08:48)
[2021-06-29] MEDS: hydrALAZINE TAB 50 MG TAB PO SCH ×3 (08:48→21:00)
[2021-06-29] MEDS: ACETAMINOPHEN 500 MG TAB PO SCH ×2 (08:48→20:59)
[2021-06-29] MEDS: HEPARIN SOD 5,000 UNIT/0.5 ML VIAL SQ SCH ×2 (08:49→21:01)
[2021-06-29] MEDS: SACCHAROMYCES BOULARDII 250 MG CAP PO SCH (08:49)
[2021-06-29] MEDS: LIDOCAINE 5% 1 PATCH TD SCH (08:49)
[2021-06-29] MEDS: carvediloL 25 MG TAB PO SCH ×2 (08:49→20:59)
[2021-06-29] MEDS: DOCUSATE SODIUM/SENNA 50/8.6MG TAB PO SCH (08:49)
[2021-06-29] MEDS: ASPIRIN 81 MG ECTAB PO SCH (08:49)
[2021-06-29] MEDS: SIMETHICONE 80 MG CHEW PO PRN (09:04)
[2021-06-29] MEDS: RASPBERRY SYRUP 5 ML UDP PO SCH ×3 (11:31→21:00)
[2021-06-29] MEDS: VANCOMYCIN HCL 125 MG/2.5ML SOLN PO SCH ×3 (11:31→21:00)
[2021-06-29] MEDS: allopurinoL 100 MG TAB PO SCH (11:32)
--- NOTE | 2021-06-29 15:36 | Hospitalist Progress Note ---
Date of Service June 29, 2021 Assessment & Plan (1) C. difficile colitis: Plan: Recent admission for acute diverticulitis one month ago Completed antibiotic course. CT abd pel on 06/13 (this admission) revealed improved diverticulitis and she tested positive for c diff Started on oral vanc and IV flagyl with GI in agreement with this with taper recommended post discharge. Leukocytosis has improved since admission Despite no narcotic use, she began having bloating, persistent nausea and abdominal discomfort as well as constipation. Concern for ileus vs obstruction-repeat KUB on 06/18-negative, repeat CT a/p wo contrast-negative for structural abnormality or obstruction/ileus Improved on bowel rest with some BMs overnight and improvement in abdominal exam Stopped flagyl in hopes this would help. So far she is still having significant nausea with eating--started ivf and probiotics--question diabetic gastroparesis vs constipation induced nausea? Is nausea possibly 2/2 Nystatin-holding this now. Is nausea related to raspberry syrup from liquid vanc? Discuss with pharmacy about switching to a pull version if on formulary. IVF caused hypoxia--stopped and given Lasix, much improved. Cont supportive care efforts and aggressive treatment of constipation. Cannot take any big capsule-we will need to give vancomycin liquid on discharge Will continue vancomycin to finish the course as advised by the GI Advised to ambulate more in the hallway Abdominal pain Denies any pain but has discomfort secondary to constipation Has been receiving laxatives Bowel movement yesterday 06/24/2021 We will give Fleet enema and adjust the laxatives Bowel has not been clear enough and he still has abdominal discomfort We will add milk of magnesia Minimal abdominal pain and is confined to right lower quadrant without guarding and rigidity Minimal abdominal pain the left lower quadrant without any guarding and rigidity (2) Anemia: Plan: chronic, multifactorial. Hold iron in setting of constipation. Bowel has been moving very scantly though (3) DMII (diabetes mellitus, type 2): Plan: At goal on basal bolus insulin here. Cont to follow closely. Nausea and vomiting could be secondary to gastroparesis Has been improving (4) Thrush: Plan: Hold nystatin--could this now be contributing to her nausea? (5) Nocturnal hypoxemia: Plan: Cont oxygen supplementation as needed. (6) Chronic kidney disease (CKD), stage IV (severe): Plan: Chronic, at her baseline. Creatinine remains at 1. 7 1 is a stable (7) Spinal stenosis: Plan: Chronic, controlled, but her ability to ambulate is impeded by this per her report. PT assessed her while here and ok with return home. Encouraged ambulation with her walker to help move bowels. Has been ambulating without any difficulties (8) Obesity: Plan: lifestyle changes recommended (9) DVT prophylaxis: Plan: Heparin FUll Dispo-uncertain, pending improvement in abdominal issues. Continue PT and OT Admission and Anticipated Discharge Date Admission Date: June 13, 2021 Subjective 06/25/2021 The patient was seen and examined in medical floor She has been feeling much better today and denies any more nausea and/or vomiting She has not had a bowel movement today and feels a little bit bloated but does not want any further enema She wants to go home 06/26/2021 The patient was seen and examined in medical floor She has been complaining of abdominal discomfort Her bowel has not moved as of today Denies any more nausea or vomiting 06/27/2021 The patient was seen and examined in medical floor Still complains to abdominal discomfort and bowel has not moved reasonably yet Denies any nausea no vomiting 06/28/2021 The patient was seen and examined in medical floor She complains of pain in the right lower quadrant without guarding and rigidity She has been moving her bowel but very scantly 06/29/2021 The patient was seen and examined in medical floor She has been complaining of abdominal discomfort and distention Now complains to have pain in the left lower quadrant and near to the back Bowel is moving very scantly Review of Systems Review of Systems: All systems reviewed and are unremarkable except as noted below Gastrointestinal: Mild abdominal distention with discomfort but no pain, vo miting Physical Exam Physical Exam: Lying in bed comfortably Constitutional: well developed, well nourished, + ill appearing and + obese Eyes: PERRL, conjunctivae normal, anicteric sclerae ENMT: external ear and nose normal, oropharynx normal Neck: trachea midline, no thyromegaly Respiratory: no respiratory distress Auscultation: lungs clear to auscultation bilaterally Cardiovascular: Rate/Rhythm: regular rate and regular rhythm; not tachycardic Heart Sounds: normal S1 and normal S2; no murmur Extremities: + edema (Trace edema bilaterally) Gastrointestinal (Abdomen): Inspection/Auscultation: + abdomen distended and normal bowel sounds Percussion/Palpation: + abdomen tender (Minimally tender right lower quadrant without any guarding and rigidity) and abdomen soft; no guarding and abdomen not rigid Musculoskeletal: No acute arthritis in any joint Neurologic: Alert, awake and oriented x3. Generally weak and lethargic. No focal neuro deficit Lymphatic: no cervical or axillary lymphadenopathy Results & Data Results & Data ([facility]) Vital Signs (Past 12 Hours) Vital Signs Temp Pulse Resp BP Pulse Ox 06/29/21 07:30 36.7 C 76 18 157/64 H 97 Laboratory Results Short CBC 06/29/21 Range/Units 05:25 WBC 4.53 L (4.8-10.8) K/uL Hgb 9.7 L (12.0-16.0) g/dL Hct 30.8 L (37-47) % Plt Count 265 (130-400) K/uL BMP 06/29/21 05:25 Sodium 140 Potassium 3.4 L Chloride 105 Carbon Dioxide 30 BUN 17 Creatinine 1.71 H Glucose 85 Calcium 9.2 Medications Administered Current Inpatient Medications Acetaminophen (Acetaminophen 325 Mg Tab) 650 mg PO Q4H PRN PRN Reason: Pain or Fever Stop: 07/14/21 02:19 Last Admin: 06/25/21 21:04 Dose: 650 mg Documented by: Acetaminophen (Acetaminophen 500 Mg Tab) 1,000 mg PO BID [facility] Stop: 07/14/21 08:59 Last Admin: 06/29/21 08:48 Dose: 1,000 mg Documented by: Allopurinol (Allopurinol 100 Mg Tab) 200 mg PO DAILY@1200 [facility] Stop: 07/14/21 11:59 Last Admin: 06/29/21 11:32 Dose: 200 mg Documented by: Aspirin (Aspirin 81 Mg Ectab) 81 mg PO QAM [facility] Stop: 07/14/21 08:59 Last Admin: 06/29/21 08:49 Dose: 81 mg Documented by: Carvedilol (Carvedilol 25 Mg Tab) 25 mg PO BID [facility] Stop: 07/14/21 08:59 Last Admin: 06/29/21 08:49 Dose: 25 mg Documented by: Cyanocobalamin (Cyanocobalamin 500 Mcg Tablet (Vitamin B-12)) 500 mcg PO QAM [facility] Stop: 07/14/21 08:59 Last Admin: 06/18/21 09:23 Dose: 500 mcg Documented by: Dextrose (Dextrose 50% 50 Ml Syringe) 25 - 50 ml IV UD PRN; Protocol PRN Reason: Hypoglycemia Protocol Stop: 07/14/21 02:59 Diclofenac Sodium (Diclofenac Sod 1% Gel 100 Gm Tube) 4 gm EXT QID PRN PRN Reason: Pain Stop: 07/14/21 02:19 Famotidine (Famotidine 20 Mg Tab) 20 mg PO BID [facility] Stop: 07/25/21 20:59 Last Admin: 06/29/21 08:48 Dose: 20 mg Documented by: Ferrous Sulfate (Ferrous Sulfate 325 Mg Tab) 325 mg PO QAM [facility] Stop: 07/14/21 08:59 Last Admin: 06/18/21 09:23 Dose: 325 mg Documented by: Folic Acid (Folic Acid 1 Mg Tab) 1 mg PO QAM [facility] Stop: 07/14/21 08:59 Last Admin: 06/18/21 09:23 Dose: 1 mg Documented by: Furosemide (Furosemide 40 Mg Tab) 40 mg PO QAM [facility] Stop: 07/25/21 08:59 Last Admin: 06/29/21 08:48 Dose: 40 mg Documented by: Glucagon (Glucagon For Inj 1 Mg Vial) 1 mg IM UD PRN; Protocol PRN Reason: Hypoglycemia Protocol Stop: 07/14/21 02:59 Glucose (Glucose 40% Gel 15 Gm Tube) 15 - 30 gm PO UD PRN; Protocol PRN Reason: Hypoglycemia Protocol Stop: 07/14/21 02:59 Glucose (Glucose 10 Tabs/Tube) 4 - 8 tabs PO UD PRN; Protocol PRN Reason: Hypoglycemia Protocol Stop: 07/14/21 02:59 Glycerin (Glycerin Adult 12 Supp/Box Supp) 1 supp SD DAILY PRN PRN Reason: Constipation Stop: 07/24/21 08:33 Last Admin: 06/26/21 06:33 Dose: 1 supp Documented by: Heparin Sodium (Porcine) (Heparin Sod 5,000 Unit/0.5 Ml Vial) 5,000 units SQ Q12 [facility] Stop: 07/14/21 08:59 Last Admin: 06/29/21 08:49 Dose: 5,000 units Documented by: Hydralazine HCl (Hydralazine Tab 50 Mg Tab) 100 mg PO TID [facility] Stop: 07/18/21 04:24 Last Admin: 06/29/21 08:48 Dose: 100 mg Documented by: Promethazine HCl 12.5 mg/ (Sodium Chloride) 50.5 mls @ 202 mls/hr IV Q6H PRN PRN Reason: Nausea And Vomiting Stop: 07/20/21 18:40 Last Infusion: 06/26/21 11:21 Dose: Infused Documented by: Insulin Aspart (Insulin Aspart 100 Units/Ml 3 Ml Pen) 0 units SC ACHS [facility] Stop: 07/21/21 16:29 Last Admin: 06/29/21 12:39 Dose: 8 units Documented by: Insulin Glargine (Insulin Glargine Solostar 100 Units/Ml 3 Ml Pen) 15 units SC BID [facility] Stop: 07/14/21 08:59 Last Admin: 06/29/21 08:47 Dose: 15 units Documented by: Isosorbide Dinitrate (Isosorbide Dinitrate 20 Mg Tab) 20 mg PO 0700,1200,1700 [facility] Stop: 07/14/21 06:59 Last Admin: 06/29/21 11:32 Dose: 20 mg Documented by: Lidocaine (Lidocaine 5% 1 Patch) 1 patch TD QAM [facility] Stop: 07/14/21 08:59 Last Admin: 06/29/21 08:49 Dose: Not Given Documented by: Miscellaneous (Remove Lidoderm Patch) 1 ea N/A DAILY@2100 [facility] Stop: 07/14/21 20:59 Last Admin: 06/28/21 19:50 Dose: Not Given Documented by: Miscellaneous (Carbohydrates For Hypoglycemia ) 15 - 30 gm PO UD PRN PRN Reason: Hypoglycemia Treatment Stop: 07/14/21 02:59 Nitroglycerin (Nitroglycerin Sl 0.4 Mg/Tab Tab) 0.4 mg SL UD PRN PRN Reason: Chest Pain Stop: 07/14/21 02:19 Ondansetron HCl (Ondansetron Inj 2 Mg/Ml 2 Ml Vial) 4 mg IV Q6H PRN PRN Reason: Nausea Stop: 07/14/21 02:19 Last Admin: 06/23/21 12:51 Dose: 4 mg Documented by: Ondansetron HCl (Ondansetron 4 Mg Od Tab) 4 mg PO Q6H PRN PRN Reason: Nausea And Vomiting Stop: 07/14/21 02:55 Last Admin: 06/28/21 16:30 Dose: 4 mg Documented by: Phenol (Chloraseptic 1.4% Soln 180 Ml Btl) 2 sprays MT QID PRN PRN Reason: sore throat Stop: 07/20/21 10:48 Polyethylene Glycol (Polyethylene (Miralax) 17 Gm Pack) 17 gm PO BID PRN PRN Reason: Constipation Stop: 07/18/21 17:28 Last Admin: 06/27/21 05:27 Dose: 17 gm Documented by: Raspberry (Raspberry Syrup 5 Ml Udp) 5 ml PO Q8 [facility] Stop: 07/13/21 10:59 Last Admin: 06/29/21 11:31 Dose: 5 ml Documented by: Rosuvastatin Calcium (Rosuvastatin Calcium 10 Mg Tab) 10 mg PO QPM [facility] Stop: 07/14/21 20:59 Last Admin: 06/17/21 21:42 Dose: 10 mg Documented by: Saccharomyces Boulardii (Saccharomyces Boulardii 250 Mg Cap) 250 mg PO DAILY [facility] Stop: 07/23/21 08:59 Last Admin: 06/29/21 08:49 Dose: 250 mg Documented by: Senna/Docusate Sodium (Docusate Sodium/Senna 50/8.6mg Tab) 1 tab PO HS PRN PRN Reason: constipation Stop: 07/20/21 20:59 Last Admin: 06/23/21 21:07 Dose: 1 tab Documented by: Senna/Docusate Sodium (Docusate Sodium/Senna 50/8.6mg Tab) 1 tab PO QAM [facility] Stop: 07/24/21 08:59 Last Admin: 06/29/21 08:49 Dose: 1 tab Documented by: Simethicone (Simethicone 80 Mg Chew) 80 mg PO Q6H PRN PRN Reason: Indigestion Stop: 07/28/21 16:32 Last Admin: 06/29/21 09:04 Dose: 80 mg Documented by: Sodium Chloride (Sodium Chloride 0.65% Na Soln 45 Ml ([place])) 2 sprays NA QID PRN PRN Reason: dry nose Stop: 07/20/21 10:48 Vancomycin HCl (Vancomycin Hcl 125 Mg/2.5ml Soln) 125 mg PO Q8 [facility] Stop: 07/09/21 10:59 Last Admin: 06/29/21 11:31 Dose: 125 mg Documented by:
[2021-06-29] MEDS: POLYETHYLENE (MIRALAX) 17 GM PACK PO PRN (18:19)
[2021-06-30] MEDS: LIDOCAINE 5% 1 PATCH TD SCH (03:36)
[2021-06-30] MEDS: ACETAMINOPHEN 325 MG TAB PO PRN (04:11)
[2021-06-30] MEDS: SIMETHICONE 80 MG CHEW PO PRN ×3 (04:12→21:06)
[2021-06-30] MEDS: DICLOFENAC SOD 1% GEL 100 GM TUBE EXT PRN ×2 (04:15→13:44)
[2021-06-30] MEDS: RASPBERRY SYRUP 5 ML UDP PO SCH ×3 (05:40→21:04)
[2021-06-30] MEDS: VANCOMYCIN HCL 125 MG/2.5ML SOLN PO SCH ×3 (05:41→21:03)
[2021-06-30] MEDS: ISOSORBIDE DINITRATE 20 MG TAB PO SCH ×3 (05:41→18:03)
[2021-06-30] MEDS: ONDANSETRON 4 MG OD TAB PO PRN (08:29)
[2021-06-30] MEDS: ACETAMINOPHEN 500 MG TAB PO SCH ×2 (08:32→21:06)
[2021-06-30] MEDS: INSULIN GLARGINE SOLOSTAR 100 UNITS/ML 3 ML PEN SC SCH ×2 (08:34→21:08)
[2021-06-30] MEDS: FAMOTIDINE 20 MG TAB PO SCH ×2 (08:35→21:05)
[2021-06-30] MEDS: carvediloL 25 MG TAB PO SCH ×2 (08:35→21:04)
[2021-06-30] MEDS: FUROSEMIDE 40 MG TAB PO SCH (08:35)
[2021-06-30] MEDS: hydrALAZINE TAB 50 MG TAB PO SCH ×3 (08:35→21:04)
[2021-06-30] MEDS: ASPIRIN 81 MG ECTAB PO SCH (08:35)
[2021-06-30] MEDS: SACCHAROMYCES BOULARDII 250 MG CAP PO SCH (08:35)
[2021-06-30] MEDS: DOCUSATE SODIUM/SENNA 50/8.6MG TAB PO SCH (08:35)
[2021-06-30] MEDS: HEPARIN SOD 5,000 UNIT/0.5 ML VIAL SQ SCH ×2 (08:36→21:05)
[2021-06-30] MEDS ORDERED: HYDROmorphone INJ 0.5 MG/0.5 ML SYR IV STA (08:48)
--- NOTE | 2021-06-30 09:36 | XRay Report ---
LEFT HIP 2 VIEWS CLINICAL HISTORY: Atraumatic left hip pain. FINDINGS: AP and frog-leg views of the left hip are correlated with pelvic CT dated 06/18/2021. The sk eletal structures are osteopenic. There is no radiographic evidence of fracture involving the left hi p or the visualized left hemipelvis. Mild degenerative joint space narrowing is seen in the hip. Dege nerative sclerosis is partially visualized in the left sacroiliac joint. The overlying soft tissues a re normal as imaged. IMPRESSION: No acute bony abnormality is identified. Electronically signed by: Marco Morocho M.D. 06/30/2021 9:35 AM
[2021-06-30] MEDS: INSULIN ASPART 100 UNITS/ML 3 ML PEN SC SCH ×4 (09:50→21:09)
[2021-06-30] MEDS: allopurinoL 100 MG TAB PO SCH (13:49)
[2021-06-30] MEDS ORDERED: MAGNESIUM HYDROXIDE SUSP 30 ML UDC PO ONE (15:46)
--- NOTE | 2021-06-30 15:51 | Hospitalist Progress Note ---
Date of Service June 30, 2021 Assessment & Plan (1) C. difficile colitis: Plan: Not yet ready to be discharged This is the way the patient feels Even after reassurance from the daughter she want to stay for tonight and agreed to go home tomorrow Today she was seen in front of her daughter and the above discussion was done in her presence She was advised to continue Tylenol for pain medication, lidocaine patch and diclofenac cream She is not for any NSAID use or narcotics pain medication She will be discharged home tomorrow Recent admission for acute diverticulitis one month ago Completed antibiotic course. CT abd pel on 06/13 (this admission) revealed improved diverticulitis and she tested positive for c diff Started on oral vanc and IV flagyl with GI in agreement with this with taper recommended post discharge. Leukocytosis has improved since admission Despite no narcotic use, she began having bloating, persistent nausea and abdominal discomfort as well as constipation. Concern for ileus vs obstruction-repeat KUB on 06/18-negative, repeat CT a/p wo contrast-negative for structural abnormality or obstruction/ileus Improved on bowel rest with some BMs overnight and improvement in abdominal exam Stopped flagyl in hopes this would help. So far she is still having significant nausea with eating--started ivf and probiotics--question diabetic gastroparesis vs constipation induced nausea? Is nausea possibly 2/2 Nystatin-holding this now. Is nausea related to raspberry syrup from liquid vanc? Discuss with pharmacy about switching to a pull version if on formulary. IVF caused hypoxia--stopped and given Lasix, much improved. Cont supportive care efforts and aggressive treatment of constipation. Cannot take any big capsule-we will need to give vancomycin liquid on discharge We will continue with vancomycin 125 mg suspension 3 times daily for 1 week, 2 times daily for next week, 1 time daily for next week to finish. Abdominal pain Denies any pain but has discomfort secondary to constipation Has been receiving laxatives Bowel movement yesterday 06/24/2021 We will give Fleet enema and adjust the laxatives Bowel has not been clear enough and he still has abdominal discomfort We will add milk of magnesia Minimal abdominal pain with palpation without guarding and no rigidity Her bowel has been moving very small amount We will try milk of magnesia again today 06/30/2028 (2) Anemia: Plan: chronic, multifactorial. Hold iron in setting of constipation. Bowel has been moving very scantly though She was advised to hold her iron pill for now (3) DMII (diabetes mellitus, type 2): Plan: At goal on basal bolus insulin here. Cont to follow closely. Nausea and vomiting could be secondary to gastroparesis Has been improving (4) Thrush: Plan: Hold nystatin--could this now be contributing to her nausea? (5) Nocturnal hypoxemia: Plan: Cont oxygen supplementation as needed. (6) Chronic kidney disease (CKD), stage IV (severe): Plan: Chronic, at her baseline. Creatinine remains at 1.7 1 is a stable We will check PRP tomorrow (7) Spinal stenosis: Plan: Chronic, controlled, but her ability to ambulate is impeded by this per her report. PT assessed her while here and ok with return home. Encouraged ambulation with her walker to help move bowels. She has been ambulating around the hallways without any significant symptoms She did not want to go home today even after reassurance from her daughter in room (8) Obesity: Plan: lifestyle changes recommended (9) DVT prophylaxis: Plan: Heparin FUll Dispo-uncertain, pending improvement in abdominal issues. Continue PT and OT Admission and Anticipated Discharge Date Admission Date: June 13, 2021 Subjective 06/25/2021 The patient was seen and examined in medical floor She has been feeling much better today and denies any more nausea and/or vomiting She has not had a bowel movement today and feels a little bit bloated but does not want any further enema She wants to go home 06/26/2021 The patient was seen and examined in medical floor She has been complaining of abdominal discomfort Her bowel has not moved as of today Denies any more nausea or vomiting 06/27/2021 The patient was seen and examined in medical floor Still complains to abdominal discomfort and bowel has not moved reasonably yet Denies any nausea no vomiting 06/28/2021 The patient was seen and examined in medical floor She complains of pain in the right lower quadrant without guarding and rigidity She has been moving her bowel but very scantly 06/29/2021 The patient was seen and examined in medical floor She has been complaining of abdominal discomfort and distention Now complains to have pain in the left lower quadrant and near to the back Bowel is moving very scantly 06/30/2021 The patient was seen and examined in medical floor She remains stable for the last few days but he still does not want to go home She complains to have left groin/hip pain, 10 out of 10 while in bed but most of the time she is sleeping She has ongoing issues with minimal abdominal discomfort Review of Systems Review of Systems: All systems reviewed and are unremarkable except as noted below Gastrointestinal: Mild abdominal distention with discomfort but no pain, vomiting Physical Exam Physical Exam: Sitting at the edge of the bed with minimal discomfort at the left groin Constitutional: well developed, well nourished, + ill appearing and + obese Eyes: PERRL, conjunctivae normal, anicteric sclerae ENMT: external ear and nose normal, oropharynx normal Neck: trachea midline, no thyromegaly Respiratory: no respiratory distress Auscultation: lungs clear to auscultation bilaterally Cardiovascular: Rate/Rhythm: regular rate and regular rhythm; not tachycardic Heart Sounds: normal S1 and normal S2; no murmur Extremities: + edema (Trace edema bilaterally) Gastrointestinal (Abdomen): Inspection/Auscultation: + abdomen distended and normal bowel sounds Percussion/Palpation: abdomen soft; abdomen nontender (Minimally tender right lower quadrant without any guarding and rigidity), no guarding and abdomen not rigid Musculoskeletal: No acute arthritis in any joint. Left groin examination is unremarkable. No radiation of pain Neurologic: Alert, awake and oriented x3. Generally weak but no focal neuro deficit Lymphatic: no cervical or axillary lymphadenopathy Results & Data Results & Data ([facility]) Vital Signs (Past 12 Hours) Vital Signs Temp Pulse Resp BP Pulse Ox 06/30/21 15:00 36.7 C 75 20 139/74 97 06/30/21 07:00 36.7 C 85 18 177/72 H 100 06/30/21 05:41 76 162/77 H 98 Medications Administered Current Inpatient Medications Acetaminophen (Acetaminophen 500 Mg Tab) 1,000 mg PO TID [facility] Stop: 07/30/21 20:59 Allopurinol (Allopurinol 100 Mg Tab) 200 mg PO DAILY@1200 [facility] Stop: 07/14/21 11:59 Last Admin: 06/30/21 13:49 Dose: 200 mg Documented by: Aspirin (Aspirin 81 Mg Ectab) 81 mg PO QAM [facility] Stop: 07/14/21 08:59 Last Admin: 06/30/21 08:35 Dose: 81 mg Documented by: Carvedilol (Carvedilol 25 Mg Tab) 25 mg PO BID [facility] Stop: 07/14/21 08:59 Last Admin: 06/30/21 08:35 Dose: 25 mg Documented by: Cyanocobalamin (Cyanocobalamin 500 Mcg Tablet (Vitamin B-12)) 500 mcg PO QAM [facility] Stop: 07/14/21 08:59 Last Admin: 06/18/21 09:23 Dose: 500 mcg Documented by: Dextrose (Dextrose 50% 50 Ml Syringe) 25 - 50 ml IV UD PRN; Protocol PRN Reason: Hypoglycemia Protocol Stop: 07/14/21 02:59 Diclofenac Sodium (Diclofenac Sod 1% Gel 100 Gm Tube) 4 gm EXT QID PRN PRN Reason: Pain Stop: 07/14/21 02:19 Last Admin: 06/30/21 13:44 Dose: 4 gm Documented by: Famotidine (Famotidine 20 Mg Tab) 20 mg PO BID [facility] Stop: 07/25/21 20:59 Last Admin: 06/30/21 08:35 Dose: 20 mg Documented by: Ferrous Sulfate (Ferrous Sulfate 325 Mg Tab) 325 mg PO QAM [facility] Stop: 07/14/21 08:59 Last Admin: 06/18/21 09:23 Dose: 325 mg Documented by: Folic Acid (Folic Acid 1 Mg Tab) 1 mg PO QAM [facility] Stop: 07/14/21 08:59 Last Admin: 06/18/21 09:23 Dose: 1 mg Documented by: Furosemide (Furosemide 40 Mg Tab) 40 mg PO QAM [facility] Stop: 07/25/21 08:59 Last Admin: 06/30/21 08:35 Dose: 40 mg Documented by: Glucagon (Glucagon For Inj 1 Mg Vial) 1 mg IM UD PRN; Protocol PRN Reason: Hypoglycemia Protocol Stop: 07/14/21 02:59 Glucose (Glucose 40% Gel 15 Gm Tube) 15 - 30 gm PO UD PRN; Protocol PRN Reason: Hypoglycemia Protocol Stop: 07/14/21 02:59 Glucose (Glucose 10 Tabs/Tube) 4 - 8 tabs PO UD PRN; Protocol PRN Reason: Hypoglycemia Protocol Stop: 07/14/21 02:59 Glycerin (Glycerin Adult 12 Supp/Box Supp) 1 supp MT DAILY PRN PRN Reason: Constipation Stop: 07/24/21 08:33 Last Admin: 06/26/21 06:33 Dose: 1 supp Documented by: Heparin Sodium (Porcine) (Heparin Sod 5,000 Unit/0.5 Ml Vial) 5,000 units SQ Q12 [facility] Stop: 07/14/21 08:59 Last Admin: 06/30/21 08:36 Dose: 5,000 units Documented by: Hydralazine HCl (Hydralazine Tab 50 Mg Tab) 100 mg PO TID [facility] Stop: 07/18/21 04:24 Last Admin: 06/30/21 13:49 Dose: 100 mg Documented by: Promethazine HCl 12.5 mg/ (Sodium Chloride) 50.5 mls @ 202 mls/hr IV Q6H PRN PRN Reason: Nausea And Vomiting Stop: 07/20/21 18:40 Last Infusion: 06/26/21 11:21 Dose: Infused Documented by: Insulin Aspart (Insulin Aspart 100 Units/Ml 3 Ml Pen) 0 units SC ACHS [facility] Stop: 07/21/21 16:29 Last Admin: 06/30/21 12:58 Dose: Not Given Documented by: Insulin Glargine (Insulin Glargine Solostar 100 Units/Ml 3 Ml Pen) 15 units SC BID [facility] Stop: 07/14/21 08:59 Last Admin: 06/30/21 08:34 Dose: 15 units Documented by: Isosorbide Dinitrate (Isosorbide Dinitrate 20 Mg Tab) 20 mg PO 0700,1200,1700 [facility] Stop: 07/14/21 06:59 Last Admin: 06/30/21 13:48 Dose: 20 mg Documented by: Lidocaine (Lidocaine 5% 1 Patch) 1 patch TD QAM [facility] Stop: 07/14/21 08:59 Last Admin: 06/30/21 03:36 Dose: 1 patch Documented by: Miscellaneous (Remove Lidoderm Patch) 1 ea N/A DAILY@2100 [facility] Stop: 07/14/21 20:59 Last Admin: 06/29/21 21:11 Dose: Not Given Documented by: Miscellaneous (Carbohydrates For Hypoglycemia ) 15 - 30 gm PO UD PRN PRN Reason: Hypoglycemia Treatment Stop: 07/14/21 02:59 Nitroglycerin (Nitroglycerin Sl 0.4 Mg/Tab Tab) 0.4 mg SL UD PRN PRN Reason: Chest Pain Stop: 07/14/21 02:19 Ondansetron HCl (Ondansetron Inj 2 Mg/Ml 2 Ml Vial) 4 mg IV Q6H PRN PRN Reason: Nausea Stop: 07/14/21 02:19 Last Admin: 06/23/21 12:51 Dose: 4 mg Documented by: Ondansetron HCl (Ondansetron 4 Mg Od Tab) 4 mg PO Q6H PRN PRN Reason: Nausea And Vomiting Stop: 07/14/21 02:55 Last Admin: 06/30/21 08:29 Dose: 4 mg Documented by: Phenol (Chloraseptic 1.4% Soln 180 Ml Btl) 2 sprays MT QID PRN PRN Reason: sore throat Stop: 07/20/21 10:48 Polyethylene Glycol (Polyethylene (Miralax) 17 Gm Pack) 17 gm PO BID PRN PRN Reason: Constipation Stop: 07/18/21 17:28 Last Admin: 06/29/21 18:19 Dose: 17 gm Documented by: Raspberry (Raspberry Syrup 5 Ml Udp) 5 ml PO Q8 [facility] Stop: 07/13/21 10:59 Last Admin: 06/30/21 13:48 Dose: 5 ml Documented by: Rosuvastatin Calcium (Rosuvastatin Calcium 10 Mg Tab) 10 mg PO QPM [facility] Stop: 07/14/21 20:59 Last Admin: 06/17/21 21:42 Dose: 10 mg Documented by: Saccharomyces Boulardii (Saccharomyces Boulardii 250 Mg Cap) 250 mg PO DAILY [facility] Stop: 07/23/21 08:59 Last Admin: 06/30/21 08:35 Dose: 250 mg Documented by: Senna/Docusate Sodium (Docusate Sodium/Senna 50/8.6mg Tab) 1 tab PO HS PRN PRN Reason: constipation Stop: 07/20/21 20:59 Last Admin: 06/23/21 21:07 Dose: 1 tab Documented by: Senna/Docusate Sodium (Docusate Sodium/Senna 50/8.6mg Tab) 1 tab PO QAM [facility] Stop: 07/24/21 08:59 Last Admin: 06/30/21 08:35 Dose: 1 tab Documented by: Simethicone (Simethicone 80 Mg Chew) 80 mg PO Q6H PRN PRN Reason: Indigestion Stop: 07/28/21 16:32 Last Admin: 06/30/21 13:51 Dose: 80 mg Documented by: Sodium Chloride (Sodium Chloride 0.65% Na Soln 45 Ml ([place])) 2 sprays NA QID PRN PRN Reason: dry nose Stop: 07/20/21 10:48 Vancomycin HCl (Vancomycin Hcl 125 Mg/2.5ml Soln) 125 mg PO Q8 [facility] Stop: 07/09/21 10:59 Last Admin: 06/30/21 13:48 Dose: 125 mg Documented by:
[2021-07-01] MEDS: VANCOMYCIN HCL 125 MG/2.5ML SOLN PO SCH ×2 (05:52→13:22)
[2021-07-01] MEDS: RASPBERRY SYRUP 5 ML UDP PO SCH ×2 (05:52→13:22)
[2021-07-01] MEDS: ISOSORBIDE DINITRATE 20 MG TAB PO SCH ×2 (05:52→13:11)
[2021-07-01 06:32] LABS: Basophils # (auto) 0.03 K/uL (0-0.2); Basophils % (auto) 0.7 %; Eosinophils # (auto) 0.16 K/uL (0-0.5); Eosinophils % (auto) 3.6 %; Hematocrit (blood only) 31.8 % (37-47); Hemoglobin 9.7 g/dL (12.0-16.0); Immature Granulocytes # (auto) 0.01 K/uL (0.00-0.02); Immature Granulocytes % (auto) 0.2 %; Lymphocytes # (auto) 1.22 K/uL (1.2-3.4); Lymphocytes % (auto) 27.5 %; Mean Corpuscular Hemoglobin 29.8 pg (25-34); Mean Corpuscular Hgb Conc 30.5 g/dL (32-36); Mean Corpuscular Volume 97.8 fL (80-100); Mean Platelet Volume 9.6 fL (7.4-10.4); Monocytes # (auto) 0.67 K/uL (0.11-0.59); Monocytes % (auto) 15.1 %; Neutrophils # (auto) 2.35 K/uL (1.4-6.5); Neutrophils % (auto) 52.9 %; Platelet Count 271 K/uL (130-400); RDW Coefficient of Variation 16.7 % (11.5-14.5); RDW Standard Deviation 59.7 fL (36.4-46.3); Red Blood Count 3.25 M/uL (4.2-5.4); White Blood Count 4.44 K/uL (4.8-10.8)
[2021-07-01 07:06] LABS: BUN Creatinine Ratio 9.7 (10-20); Calcium 9.5 mg/dl (8.5-10.1); Creatinine Clr Calc Pharmacy 26.7 ml/min; Est GFR (African American) 28.8 ml/min; Est GFR (Non-African American) 24.9 ml/min; Potassium 3.6 mmol/L (3.5-5.1)
[2021-07-01] MEDS: INSULIN ASPART 100 UNITS/ML 3 ML PEN SC SCH ×2 (08:48→13:09)
[2021-07-01] MEDS: INSULIN GLARGINE SOLOSTAR 100 UNITS/ML 3 ML PEN SC SCH (08:50)
[2021-07-01] MEDS: hydrALAZINE TAB 50 MG TAB PO SCH ×2 (08:51→13:12)
[2021-07-01] MEDS: ACETAMINOPHEN 500 MG TAB PO SCH ×2 (08:52→13:11)
[2021-07-01] MEDS: carvediloL 25 MG TAB PO SCH (08:53)
[2021-07-01] MEDS: FAMOTIDINE 20 MG TAB PO SCH (08:53)
[2021-07-01] MEDS: ASPIRIN 81 MG ECTAB PO SCH (08:53)
[2021-07-01] MEDS: FUROSEMIDE 40 MG TAB PO SCH (08:54)
[2021-07-01] MEDS: DOCUSATE SODIUM/SENNA 50/8.6MG TAB PO SCH (08:54)
[2021-07-01] MEDS: SACCHAROMYCES BOULARDII 250 MG CAP PO SCH (08:54)
[2021-07-01] MEDS: LIDOCAINE 5% 1 PATCH TD SCH (08:55)
[2021-07-01] MEDS: HEPARIN SOD 5,000 UNIT/0.5 ML VIAL SQ SCH (08:55)
[2021-07-01] MEDS: allopurinoL 100 MG TAB PO SCH (13:11)
--- NOTE | 2021-07-01 15:08 | Discharge Summary ---
Date of Service July 01, 2021 Admission HPI Per Admitting Provider An 85-year-old female with past medical history significant for type 2 diabetes, hyperlipidemia, secondary hyperparathyroidism, chronic rhinitis, nocturnal hypoxia, uses oxygen in the nighttime, chronic kidney disease stage IV, mitral valve insufficiency, hypertension, diastolic CHF, left bundle-branch block, obesity, GERD, vitamin D deficiency, osteoporosis, lumbar degenerative disk disease, history of diverticulitis in the recent past. Was admitted in the hospital and got discharged on 05/25/2021 for diverticulitis.Discharged on antibiotic course with Cipro and metronidazole. Comes because of nausea, vomi ting, and diarrhea starting yesterday. She said yesterday all night she was having lot of diarrhea and she was nauseous, could not eat anything today, and has abdominal discomfort, feeling sick, prompting her to come to the ER. She had some foul-smelling diarrhea in the ER. Her white count is 20. Hemodynamics are stable. Potassium 3.3, creatinine is 2, which is close to baseline. SARS-CoV-[address] of abdomen and pelvis is showing colonic diverticulosis, evidence of mild sigmoid diverticulitis, which is improved compared to 05/20/2021. She has some chest discomfort and attributes it to her gas pain. No shortness of breath, no headache. She felt blurred vision last night. No earache, no runny nose, no sore throat, no cough. Had some fever at home today. She takes iron supplements and stools are always black. Denies any burning micturition or hematuria. No swelling. No rash anywhere. She was not able to ambulate today because of weakness. Usually she ambulates with a walker. She lives with her son. Admission Exam Per Admitting Provider GENERAL: The patient is obese, not in acute distress. VITAL SIGNS: Temperature 36.2, pulse 105, respiratory rate 24, blood pressure 155/65, oxygen 95% on 2 liters. HEENT: Pupils equal, round and reactive to light. Oral mucosa moist. NECK: No JVD, no neck masses. CARDIOVASCULAR: S1 and S2 heard. Tachycardia. No murmurs. RESPIRATORY SYSTEM: Normal AP diameter. No accessory muscle use. No wheezing, no crackles. ABDOMEN: Soft, bowel sounds present. Mild discomfort. No guarding, no rigidity. CENTRAL NERVOUS SYSTEM: Cranial nerves II-XII grossly intact, nonfocal. EXTREMITIES: Mild pedal edema, no erythema seen. Principal Diagnosis C. Diff colitis Discharge Exam General: A&Ox3, appear in distress HENT: NCAT, MMM, EOMI Eyes: PERRLA Neck: Supple, normal range of motion CVS: normal rate and rhythm Resp: b/l coarse breath sounds Abdomen: Soft, non-tender Extremities: No c/c/e Neuro: face symmetric, strength grossly equal, no focal deficit Skin: warm and dry, no rashes/lesions/errythema MSK: normal ROM, no joint swelling/erythema Discharge Data Allergies Allergy/AdvReac Type Severity Reaction Status Date / Time No Known Allergies Allergy Verified 06/13/21 17:21 Consultations 06/14/21 08:00 Consult Gastroenterology Routine Ordered Studies 06/13/21 17:16 CT abd pelvis wo con Stat 06/18/21 16:26 CT abd pelvis wo con Urgent Hospital Course (1) C. difficile colitis: Recent admission for acute diverticulitis one month ago Completed antibiotic course. CT abd pel on 06/13 (this admission) revealed improved diverticulitis and she tested positive for c diff Started on oral vanc and IV flagyl with GI in agreement with this with taper recommended post discharge. Despite no narcotic use, she began having bloating, persistent nausea and abdominal discomfort as well as constipation. Concern for ileus vs obstruction-repeat KUB on 06/18-negative, repeat CT a/p wo contrast-negative for structural abnormality or obstruction/ileus Improved on bowel rest with some BMs overnight and improvement in abdominal exam Stopped flagyl in hopes this would help. Discharge on vanco taper regimen: 125 mg twice daily for 3 days then 125 mg daily for 7 days then every other day for 8 weeks. On the day of discharge patient was doing okay. Patient was tolerating diet patient denied any abdominal pain. Hemodynamically patient was doing fine. Discharged in stable condition. (2) Anemia: chronic, multifactorial. Hold iron in setting of constipation. Bowel has been moving very scantly though She was advised to hold her iron pill for now (3) DMII (diabetes mellitus, type 2): At discharge, resume [employer] regimen. (4) Thrush: resolved (5) Nocturnal hypoxemia: Cont oxygen supplementation as needed. (6) Chronic kidney disease (CKD), stage IV (severe): Chronic, at her baseline. Creatinine remains at 1.7 1 is a stable We will check PRP tomorrow (7) Spinal stenosis: Chronic, controlled, but her ability to ambulate is impeded by this per her report. PT assessed her while here and ok with return home. Encouraged ambulation with her walker to help move bowels. She has been ambulating around the hallways without any significant symptoms (8) Obesity: lifestyle changes recommended Total Time Total Time Spent Total Time Spent (In Minutes): 35 Discharge Plan Discharge Items Patient Disposition: Home - Home Health Services Reason For Visit: ABDOMINAL PAIN Discharge Diagnosis: C. Diff Activity: Resume your previous activity Non-emergency contact: Primary Care Provider Call non-emergency contact if: your symptoms worsen Follow-up/Referrals: Fox Ramirez MD [Primary Care Provider] - 07/05/21 9:40 am ( Date & Time 07/05/2021 9:40 AM Provider Fox Ramirez MD Department [facility] ) Joanna Frost CRNP [Nurse Practitioner] - 07/15/21 1:00 pm (Date & Time 07/15/2021 1:00 PM Provider MAHI Bright Department Gastroenterology, [facility] ) Diet: Low Fiber Addtl Attending Provider Instructions: Follow-up with PCP and gastroenterology as an outpatient. Oral Vancomycin: 125 mg twice daily for 3 days then 125 mg daily for 7 days then every other day for 8 weeks. Continue to monitor your glucose levels and have your insulin adjustment by your primary care physician. Pending Studies at Discharge: No Stand-Alone Forms: My [facility], Smoking Cessation Medications and DC Order Prescriptions: New Saccharomyces boulardii [Florastor] 250 mg Capsule 250 mg PO DAILY Qty: 30 RF: 0 simethicone [Mi-Acid Gas Relief(simethicon)] 80 mg Tablet,Chewable 80 mg PO Q6H PRN (Reason: bloating) Qty: 30 RF: 0 vancomycin 1,000 mg Recon Soln 125 mg PO DIRECTED Qty: 38 RF: 0 Continued ergocalciferol (vitamin D2) 1,250 mcg (50,000 unit) capsule 50,000 unit PO MONTHLY RF: 0 lidocaine [Salonpas (lidocaine)] 4 % Adhesive Patch,Medicated 1 patch TOPICAL QAM RF: 0 aspirin 81 mg Tablet,Delayed Release (Dr/Ec) 81 mg PO QAM RF: 0 isosorbide dinitrate 20 mg tablet 20 mg PO TID RF: 0 rosuvastatin 10 mg tablet 10 mg PO QPM RF: 0 acetaminophen [Tylenol Extra Strength] 500 mg Tablet 1,000 mg PO AMPM RF: 0 famotidine [Pepcid] 20 mg Tablet 20 mg PO QPM@1700 RF: 0 ondansetron 4 mg tablet,disintegrating 4 mg PO Q6H PRN (Reason: nausea and vomiting) Qty: 14 RF: 0 folic acid 1 mg tablet 1 mg PO QAM RF: 0 furosemide 40 mg tablet 40 mg PO QAM RF: 0 ferrous sulfate 325 mg (65 mg iron) Tablet,Delayed Release (Dr/Ec) 325 mg PO QAM 30 Days Qty: 30 RF: 0 hydralazine 100 mg tablet 100 mg PO TID RF: 0 carvedilol 25 mg tablet 25 mg PO BID RF: 0 Humulin 70/30 U-100 Insulin 100 unit/mL (70-30) suspension See Rx Instructions .ROUTE .COMPLEX RF: 0 allopurinol 100 mg tablet 200 mg PO DAILY@1200 RF: 0 diclofenac sodium 1 % gel 4 g TOP QID PRN (Reason: Pain) RF: 0 cyanocobalamin (vitamin B-12) 500 mcg Tablet 500 mcg PO QAM Qty: 30 RF: 0 Discontinued furosemide 40 mg tablet 20 mg PO QPM@1700 RF: 0 sennosides-docusate sodium [Senna with Docusate Sodium] 8.6-50 mg tablet 1 tab-cap PO QPM RF: 0 Discharge Orders: Discharge Order (Routine); Ordered 07/01/21 Ordered By: Rafael Mckeon/Other Patient Handouts: A1C, Managing Type 2 Diabetes, Clostridium Difficile Infection Admission Data Admit Date/Time: 06/13/21 22:32 Attending Provider: Rafael Bauman Admit Provider: Jorg eLuis Beasley Primary Care Provider: Fox Ramirez Other Providers: Lissy Fernandez ; Kristine Boykin ; Hailey Bailey ; Luzma Barger ; Haris Scanlon ; Jacki Rodriguez ; Monica Harrington ; Wes Castillo ; Joanna Frost ; Kelly Soto ; Chantel Koenig ; Lauren Jon ; Nj Metzger ; Constanza Overton Other Interventions: Discharge Summary Assessment (RN) Last Done: 07/01/21 13:40
== END 2021-07-01 15:01 | disposition home health service (06) | DRG 372 ==
LOC: ED 16:50 → 2W 22:32 → SUATTDRO 22:32 → 2W 06-14 01:31 → 3E 06-20 05:28
DX: E66.01 Morbid (severe) obesity due to excess calories; Z79.4 Long term (current) use of insulin; K57.32 Diverticulitis of large intestine without perforation or abscess without bleeding; H91.90 Unspecified hearing loss, unspecified ear; K59.00 Constipation, unspecified; A04.72 Enterocolitis due to Clostridium difficile, not specified as recurrent; Z96.659 Presence of unspecified artificial knee joint; N18.4 Chronic kidney disease, stage 4 (severe); E11.22 Type 2 diabetes mellitus with diabetic chronic kidney disease; E87.6 Hypokalemia; Z83.3 Family history of diabetes mellitus; Z88.5 Allergy status to narcotic agent; M48.00 Spinal stenosis, site unspecified; N25.81 Secondary hyperparathyroidism of renal origin; I34.0 Nonrheumatic mitral (valve) insufficiency; Z68.38 Body mass index [BMI] 38.0-38.9, adult; K21.9 Gastro-esophageal reflux disease without esophagitis; M10.9 Gout, unspecified; Z80.0 Family history of malignant neoplasm of digestive organs; B37.0 Candidal stomatitis; I13.0 Hypertensive heart and chronic kidney disease with heart failure and stage 1 through stage 4 chronic kidney disease, or unspecified chronic kidney disease; R09.02 Hypoxemia; D50.9 Iron deficiency anemia, unspecified; I50.30 Unspecified diastolic (congestive) heart failure

== ENCOUNTER 2021-12-12 08:03 | Inpatient (IN) ==
[2021-12-12] MEDS ORDERED: SODIUM CHLORIDE 0.9% 500 ML IV STA (08:25)
[2021-12-12] MEDS ORDERED: ACETAMINOPHEN 1000 MG/100 ML IV IV STA (08:34)
[2021-12-12] MEDS ORDERED: ONDANSETRON INJ 2 MG/ML 2 ML VIAL IV STA (08:34)
[2021-12-12] MEDS ORDERED: MoRPHine SULFATE 4 MG/ML 1 ML CARP\\VIAL IV STA (08:34)
--- NOTE | 2021-12-12 08:39 | Emergency Department Note ---
Impression & Plan RLQ abdominal pain, Spinal stenosis, Diverticulitis, History of Clostridioides difficile colitis ED Provider Note NAME: BELKIS LERMA AGE: 86 SEX: F : 1935 ARRIVES VIA: Walk-In INFORMANT: [Patient][family] ED PROVIDER(S): [Marco Almaguer MD] CHIEF COMPLAINT: Abdominal pain HISTORY OF PRESENT ILLNESS: The patient is an 86-year-old female with a history of appendectomy, cholecystectomy, diverticulitis, hysterectomy, chronic back pain. The patient presents with complaints of right lower quadrant pain and pain rating down her right hip into her right knee. The pain is a 10/10. She has had pain now for 2 full days. The patient states that she has had some nausea and some occasional dry heaving. No fever. No cough, cold or congestion. She has no urinary complaints. The patient is due to have an injection in her back. She has spinal stenosis. She wonders if this could be her back. She has had back pain from her spinal stenosis before although, nothing this severe. Patient also is concerned about the possibility of diverticulitis as she has had that diagnosed in the past. Again, she has felt similar with diverticulitis but not this severe. The patient has a history of C. difficile, she developed this after treatment for diverticulitis. She is currently not having any diarrhea. REVIEW OF SYSTEMS: See HPI for pertinent positives and negatives. A total of ten systems were reviewed and were otherwise negative. PMHx/PSHx: See Below SOCIAL HISTORY: See Below. PHYSICAL EXAM: GENERAL: Patient is in mild distress from pain HEENT: No acute trauma, normocephalic atraumatic, mucous membranes moist, no nasal congestion, no scleral icterus. NECK: No stridor, no adenopathy, no meningismus, trachea is midline. LUNGS: Clear to auscultation bilaterally, no wheeze, no rhonchi, breath sounds equal. HEART: No murmurs. Rhythm seems regular with an occasional extra beat. Normal rate. ABDOMEN: Soft, moderately tender in the right lower quadrant, bowel sounds positive, no hernias, no peritonitis. EXTREMITIES: No cyanosis, mild bilateral pedal edema, full range of motion of all the joints without pain or difficulty, no signs for acute trauma. NEUROLOGIC: Oriented x 3, no acute motor or sensory deficits, no focal weakness. SKIN: No rash, no jaundice, no diaphoresis. DIFFERENTIAL DIAGNOSIS: Ovarian cyst, ovarian torsion, nerve impingement, spinal stenosis, sciatica, diverticulitis, UTI, obstruction, mesenteric ischemia, aortic pathology, inflammatory bowel disease, renal colic, PUD, pancreatitis, biliary pathology, hernia, volvulus, constipation, as well as other pathologies. EMERGENCY DEPARTMENT COURSE/PROCEDURES: MEDICAL DECISION MAKING: There is no leukocytosis. The patient does have some anemia however, this is baseline when looking back at previous testing. There is a normal platelet count. The creatinine is elevated, she has a history of renal insufficiency. No electrolyte abnormality in need of emergent correction. No concerning liver enzyme elevation. No evidence for pancreatitis. Urinalysis shows potential infection versus contamination, urine culture is pending. Covid testing returned negative. Abdominal and pelvis CT suggests some mild diverticulitis, no abscess seen. On exam, the patient was not febrile or toxic. She did appear to have pain though in the right lower quadrant and right hip/leg. Patient received IV saline, 500 cc. She was given IV Zofran, IV morphine and IV Tylenol. The patient does have a history of developing C. difficile colitis from Cipro and Flagyl. She has history of spinal stenosis and chronic back pain. She now has diverticulitis with a potential UTI. She has a lot of pain in her back and right leg. Given her findings, given her past history, I do think a hospital stay is warranted. She does not seem to be able to be discharged home. I did speak with the patient, I spoke with the director case. The on-call hospitalist consulted. I have held on antibiotic therapy for now as, gastroenterology has asked to be involved in the decision-making if she is in need of antibiotic therapy. Past Med/Surg History Medical History CHF (congestive heart failure) follows with Kaushal Nieto PA-C Chronic back pain Chronic kidney disease (CKD), stage IV (severe) follows with Dr. Childress Diabetes mellitus, type 2 Diverticulitis large intestine hx Hearing deficit History of kidney stones HTN (hypertension) Hyperlipidemia Kidney cysts LEFT SIDE>BEING MONITORED BY UROLOGY [facility] [place] Morbid obesity with BMI of 40.0-44.9, adult Nocturnal hypoxemia On home oxygen therapy 2L N/C at HS only Osteoarthritis Spinal stenosis Surgical History H/O: hysterectomy History of arthroscopy of left knee History of bilateral tubal ligation History of cardiac cath History of colonoscopy History of cystoscopy History of dilatation and curettage History of esophagogastroduodenoscopy (EGD) History of tooth extraction Hx of appendectomy Hx of cholecystectomy Nausea and vomiting after administration of anesthetic agent Family History Sister Family history of diabetes mellitus Sister Family history of diabetes mellitus Brother Family history of diabetes mellitus Family history of esophageal cancer Brother Family history of esophageal cancer Father Lung cancer Other No family history of adverse response to anesthesia No significant family history Social History Smoking Status: Never smoker Second Hand Exposure: No; Hx Alcohol Use: No Hx Substance Use: No Preferred Language: Nepali Communication Ability: Effective [place] Burner Required: No Beliefs That Will Affect Care: None marital status: / Current Living Situation: Family Current Living Situation Comment: WITH SON Feels Safe at Home: Yes Assistive Devices: Denture - Upper, Denture - Lower, Glasses, Oxygen - at Night and Walker Allergies Allergies Allergy/AdvReac Type Severity Reaction Status Date / Time No Known Allergies Allergy Verified 11/25/21 13:39 Home Meds Home Medications Medication Instructions Recorded Confirmed acetaminophen 500 mg tablet 1,000 mg PO AMPM 12/30/18 12/12/21 (Tylenol Extra Strength) aspirin 81 mg tablet,delayed 81 mg PO QAM 12/30/18 11/25/21 release isosorbide dinitrate 20 mg tablet 20 mg PO TID 12/30/18 11/25/21 rosuvastatin 10 mg tablet 10 mg PO QPM 12/30/18 11/25/21 famotidine 20 mg tablet (Pepcid) 20 mg PO QPM@1700 11/18/19 11/25/21 lidocaine 4 % topical patch 1 patch TOPICAL QAM 06/23/20 11/25/21 (Salonpas (lidocaine)) insulin human U-100 NPH-regulr See Rx Instructions .ROUTE .COMPLEX 03/16/21 11/25/21 70-30 mix 100 unit/mL subcutaneous susp (Humulin 70/30 U-100 Insulin) allopurinol 100 mg tablet 200 mg PO DAILY@1200 03/17/21 12/12/21 diclofenac sodium 1 % topical gel 4 g TOP QID PRN 03/17/21 09/01/21 furosemide 40 mg tablet 40 mg PO QAM 04/29/21 11/25/21 carvedilol 25 mg tablet 25 mg PO BID 06/13/21 11/25/21 hydralazine 100 mg tablet 100 mg PO TID 06/13/21 11/25/21 Saccharomyces boulardii 250 mg 250 mg PO QAM 08/26/21 11/25/21 capsule (Florastor) Previous Rx's Medication Instructions Recorded cyanocobalamin (vitamin B-12) 500 500 mcg PO QAM #30 tab 03/27/21 mcg tablet simethicone 80 mg chewable tablet 80 mg PO Q6H PRN #30 tab 07/01/21 (Mi-Acid Gas Relief (simethicone)) calcitriol 0.25 mcg capsule 0.25 mcg PO DAILY #90 cap 08/24/21 ondansetron 4 mg disintegrating 4 mg PO Q6H PRN #14 tab 11/25/21 tablet Results & Data (ED) Vital Signs Vital Signs - 24 hr 12/12/21 08:07 12/12/21 09:29 Temperature 36.9 C 36.3 C L Temperature Source Temporal Artery Scan Oral Pulse Rate 84 Pulse Rate [Radial] 68 Respiratory Rate 20 18 Respiratory Effort / Characteristics Non-Labored Spontaneous Respiratory Depth Normal Respiratory Pattern Regular Blood Pressure 187/74 H Blood Pressure [Left Arm] 170/64 H Blood Pressure Mean 111 Blood Pressure Mean [Left Arm] 99 Pulse Oximetry 97 96 Oxygen Delivery Method Room Air Room Air Sepsis Recent Fever Within 48 Hours No Sepsis New/Unexplained Change in Mental Status No Sepsis Action Taken by Nursing No Action Required Home Medications Current Medication List: was personally reviewed by me Laboratory Data Attestation: I reviewed the patient's lab results. Result diagrams: 12/12/21 08:43 12/12/21 08:43 Lab Results 12/12/21 12/12/21 12/12/21 Range/Units 08:43 08:43 08:43 WBC 6.37 (4.8-10.8) K/uL RBC 3.32 L (4.2-5.4) M/uL Hgb 10.2 L (12.0-16.0) g/dL Hct 31.9 L (37-47) % MCV 96.1 (80-100) fL MCH 30.7 (25-34) pg MCHC 32.0 (32-36) g/dL RDW Std Deviation 53.4 H (36.4-46.3) fL RDW Coeff of Noemy 15.3 H (11.5-14.5) % Plt Count 308 (130-400) K/uL MPV 9.4 (7.4-10.4) fL Immature Gran % (Auto) 0.0 % Neut % (Auto) 76.3 % Lymph % (Auto) 11.5 % [place] % (Auto) 9.6 % Eos % (Auto) 2.4 % Baso % (Auto) 0.2 % Neut # (Auto) 4.87 (1.4-6.5) K/uL Lymph # (Auto) 0.73 L (1.2-3.4) K/uL Sterling # (Auto) 0.61 H (0.11-0.59) K/uL Eos # (Auto) 0.15 (0-0.5) K/uL Baso # (Auto) 0.01 (0-0.2) K/uL Immature Gran # (Auto) 0.00 (0.00-0.02) K/uL Sodium 138 (136-145) mmol/L Potassium 3.7 (3.5-5.1) mmol/L Chloride 103 (98-107) mmol/L Carbon Dioxide 28 (21-32) mmol/L Anion Gap 7 (3-11) BUN 38 H (6-23) mg/dl Creatinine 2.01 H (0.6-1.2) mg/dl Est Cr Clr Drug Dosing Not Reportable Est GFR ( Amer) 25.2 ml/min Est GFR (Non-Af Amer) 21.8 ml/min BUN/Creatinine Ratio 18.9 (10-20) Glucose 134 H (70-99(Fasting)) mg/dl Calcium 10.2 H (8.5-10.1) mg/dl Total Bilirubin 1.0 (0.2-1.0) mg/dl AST 13 (13-39) U/L ALT 9 (7-52) U/L Alkaline Phosphatase 51 (34-104) U/L Total Protein 6.3 (6.0-8.3) gm/dl Albumin 4.2 (3.4-5.0) gm/dl Globulin 2.1 L (2.5-4.0) gm/dl Albumin/Globulin Ratio 2.0 (0.9-2) Lipase 22 (11-82) U/L Urine Color Yellow Urine Appearance Clear (Clear) Urine pH 5.5 (4.5-7.5) Ur Specific [place] 1.015 (1.000-1.030) Urine Protein 3+ H (Negative) Urine Glucose (UA) Negative (Negative) Urine Ketones Negative (Negative) Urine Blood Negative (Negative) Urine Nitrite Negative (Negative) Urine Bilirubin Negative (Negative) Urine Urobilinogen Negative (Negative) Ur Leukocyte Esterase Trace H (Negative) Urine WBC (Auto) >30 H (0-5) /hpf Urine RBC (Auto) 0-4 (0-4) /hpf U Hyaline Cast (Auto) 1-5 (0-5) /lpf U Epithel Cells (Auto) >30 H (0-5) /lpf Urine Bacteria (Auto) Negative (Negative) SARS-CoV-2, RNA, NAAT (NEGATIVE) 12/12/21 Range/Units 10:33 WBC (4.8-10.8) K/uL RBC (4.2-5.4) M/uL Hgb (12.0-16.0) g/dL Hct (37-47) % MCV (80-100) fL MCH (25-34) pg MCHC (32-36) g/dL RDW Std Deviation (36.4-46.3) fL RDW Coeff of Noemy (11.5-14.5) % Plt Count (130-400) K/uL MPV (7.4-10.4) fL Immature Gran % (Auto) % Neut % (Auto) % Lymph % (Auto) % Sterling % (Auto) % Eos % (Auto) % Baso % (Auto) % Neut # (Auto) (1.4-6.5) K/uL Lymph # (Auto) (1.2-3.4) K/uL Sterling # (Auto) (0.11-0.59) K/uL Eos # (Auto) (0-0.5) K/uL Baso # (Auto) (0-0.2) K/uL Immature Gran # (Auto) (0.00-0.02) K/uL Sodium (136-145) mmol/L Potassium (3.5-5.1) mmol/L Chloride (98-107) mmol/L Carbon Dioxide (21-32) mmol/L Anion Gap (3-11) BUN (6-23) mg/dl Creatinine (0.6-1.2) mg/dl Est Cr Clr Drug Dosing Est GFR ( Amer) ml/min Est GFR (Non-Af Amer) ml/min BUN/Creatinine Ratio (10-20) Glucose (70-99(Fasting)) mg/dl Calcium (8.5-10.1) mg/dl Total Bilirubin (0.2-1.0) mg/dl AST (13-39) U/L ALT (7-52) U/L Alkaline Phosphatase (34-104) U/L Total Protein (6.0-8.3) gm/dl Albumin (3.4-5.0) gm/dl Globulin (2.5-4.0) gm/dl Albumin/Globulin Ratio (0.9-2) Lipase (11-82) U/L Urine Color Urine Appearance (Clear) Urine pH (4.5-7.5) Ur Specific [place] (1.000-1.030) Urine Protein (Negative) Urine Glucose (UA) (Negative) Urine Ketones (Negative) Urine Blood (Negative) Urine Nitrite (Negative) Urine Bilirubin (Negative) Urine Urobilinogen (Negative) Ur Leukocyte Esterase (Negative) Urine WBC (Auto) (0-5) /hpf Urine RBC (Auto) (0-4) /hpf U Hyaline Cast (Auto) (0-5) /lpf U Epithel Cells (Auto) (0-5) /lpf Urine Bacteria (Auto) (Negative) SARS-CoV-2, RNA, NAAT NEGATIVE (NEGATIVE) Administered Medications Discontinued Medications Acetaminophen (Acetaminophen 1000 Mg/100 Ml Iv) 1,000 mg IV NOW STA Stop: 12/12/21 08:35 Last Admin: 12/12/21 09:02 Dose: 1,000 mg Documented by: [id number] Sodium Chloride (Nss) 500 mls @ 999 mls/hr IV .Q31M STA Stop: 12/12/21 08:55 Last Admin: 12/12/21 09:02 Dose: 999 mls/hr Documented by: [id number] Morphine Sulfate (Morphine Sulfate 4 Mg/Ml 1 Ml Carp\Vial) 4 mg IV NOW STA Stop: 12/12/21 08:35 Last Admin: 12/12/21 09:01 Dose: 4 mg Documented by: [id number] Ondansetron HCl (Ondansetron Inj 2 Mg/Ml 2 Ml Vial) 4 mg IV NOW STA Stop: 12/12/21 08:35 Last Admin: 12/12/21 09:01 Dose: 4 mg Documented by: [id number] Imaging Data Radiologist's Impression: Abdomen/Pelvis CT 12/12/21 08:[address] WITHOUT CONTRAST CT DOSE: 793.77 mGy.cm HISTORY: Acute right lower quadrant abdominal pain rlq pain, hist divertic TECHNIQUE: Multiaxial CT images of the abdomen and pelvis were performed without contrast. A dose lowering technique was utilized adhering to the principles of ALARA. COMPARISON STUDY: CT abdomen and pelvis 06/18/2021 FINDINGS: Cardiomegaly with coronary artery ossifications. Mild subsegmental bibasilar atelectasis/scarring. No pneumatosis or pneumoperitoneum. The unen hanced spleen, mildly atrophic pancreas and right adrenal gland are unremarkable. 2 cm left adrenal myolipoma. 1.7 cm left hepatic lobe cyst. Cholecystectomy. Severe cortical thinning of the kidneys is unchanged. 4.7 x 4.1 cm hyperdense parapelvic cyst of the left kidney previously measured 4.3 x 3.9 cm. Mild hydronephrosis of the superior pole left kidney is new from prior. No renal or ureteral calculi. There are several bilateral intermediate density and mildly hyperdense renal lesions including a 1.5 cm lesion of the inferior pole right kidney. These appear similar to prior and may represent proteinaceous or hemorrhagic cysts. Mild urinary bladder wall thickening with partial distention. Hysterectomy. Atherosclerosis of the abdominal aorta without aneurysm. No adenopathy. No bowel obstruction. Colonic diverticulosis. There is trace edema within the sigmoid mesocolon. Mild sigmoid colon wall thickening. The right hemicolon appears normal. Appendectomy. Varicosities of the right breast. Subcutaneous stranding of the anterior abdominal wall suggests medicinal injection sites. Degenerative changes of the spine, pelvis and hips. IMPRESSION: 1. Left parapelvic hyperdense renal cyst has mildly increased in size from 06/18/2021 and now results in mild hydronephrosis of the superior pole left kidney. 2. No renal or ureteral calculi. 3. Severe cortical atrophy of the kidneys redemonstrated. 4. Colonic diverticulosis. Mild wall thickening of the sigmoid colon with trace edema within the sigmoid mesocolon should be correlated clinically to exclude subtle acute diverticulitis. 5. No bowel obstruction. 6. Additional findings as above. ACT 112: Negative or not required by law. The above report was generated using voice recognition software. It may contain grammatical, syntax or spelling errors. Electronically signed by: Doug Patel M.D. 12/12/2021 9:32 AM Discharge Plan Visit Data Chief Complaint: Flank Pain Stated Complaint: BACK AND ABDOMINAL PAIN, TREATED FOR C DIFF ED Provider: Marco Almaguer Discharge Problem: RLQ abdominal pain, Spinal stenosis, Diverticulitis, History of Clostridioides difficile colitis Patient Disposition: Admitted As Inpatient Condition: Fair Forms Stand Alone Forms: [facility] Prescriptions Prescriptions: No Action calcitriol 0.25 mcg capsule 0.25 mcg PO DAILY Qty: 90 RF: 3 ondansetron 4 mg tablet,disintegrating 4 mg PO Q6H PRN (Reason: nausea and vomiting) Qty: 14 RF: 0 lidocaine [Salonpas (lidocaine)] 4 % Adhesive Patch,Medicated 1 patch TOPICAL QAM RF: 0 aspirin 81 mg Tablet,Delayed Release (Dr/Ec) 81 mg PO QAM RF: 0 isosorbide dinitrate 20 mg tablet 20 mg PO TID RF: 0 rosuvastatin 10 mg tablet 10 mg PO QPM RF: 0 acetaminophen [Tylenol Extra Strength] 500 mg Tablet 1,000 mg PO AMPM RF: 0 famotidine [Pepcid] 20 mg Tablet 20 mg PO QPM@1700 RF: 0 furosemide 40 mg tablet 40 mg PO QAM RF: 0 hydralazine 100 mg tablet 100 mg PO TID RF: 0 carvedilol 25 mg tablet 25 mg PO BID RF: 0 simethicone [Mi-Acid Gas Relief(simethicon)] 80 mg Tablet,Chewable 80 mg PO Q6H PRN (Reason: bloating) Qty: 30 RF: 0 Humulin 70/30 U-100 Insulin 100 unit/mL (70-30) suspension See Rx Instructions .ROUTE .COMPLEX RF: 0 allopurinol 100 mg tablet 200 mg PO DAILY@1200 RF: 0 diclofenac sodium 1 % gel 4 g TOP QID PRN (Reason: Pain) RF: 0 cyanocobalamin (vitamin B-12) 500 mcg Tablet 500 mcg PO QAM Qty: 30 RF: 0 Saccharomyces boulardii [Florastor] 250 mg capsule 250 mg PO QAM RF: 0 Referrals Referrals: Fox Ramirez MD [Primary Care Provider] -
[2021-12-12 08:53] LABS: Basophils # (auto) 0.01 K/uL (0-0.2); Basophils % (auto) 0.2 %; Eosinophils # (auto) 0.15 K/uL (0-0.5); Eosinophils % (auto) 2.4 %; Hematocrit (blood only) 31.9 % (37-47); Hemoglobin 10.2 g/dL (12.0-16.0); Lymphocytes # (auto) 0.73 K/uL (1.2-3.4); Lymphocytes % (auto) 11.5 %; Mean Corpuscular Hemoglobin 30.7 pg (25-34); Mean Corpuscular Volume 96.1 fL (80-100); Mean Platelet Volume 9.4 fL (7.4-10.4); Monocytes # (auto) 0.61 K/uL (0.11-0.59); Monocytes % (auto) 9.6 %; Neutrophils # (auto) 4.87 K/uL (1.4-6.5); Neutrophils % (auto) 76.3 %; Platelet Count 308 K/uL (130-400); RDW Coefficient of Variation 15.3 % (11.5-14.5); RDW Standard Deviation 53.4 fL (36.4-46.3); Red Blood Count 3.32 M/uL (4.2-5.4); White Blood Count 6.37 K/uL (4.8-10.8)
[2021-12-12 08:57] LABS: Appearance Urine Clear (Clear); Bacteria Urine Automated Negative (Negative); Bilirubin Urine Negative (Negative); Blood Urine Negative (Negative); Color Urine Yellow; Epithelial Cell Urine Auto >30 /lpf (0-5); Glucose Urine UA Negative (Negative); Ketones Urine Negative (Negative); Leukocyte Esterase Urine Trace (Negative); Nitrite Urine Negative (Negative); Protein Urine 3+ (Negative); RBC Urine Automated 0-4 /hpf (0-4); Specific Gravity Urine 1.015 (1.000-1.030); Urobilinogen Urine Negative (Negative); WBC Urine Automated >30 /hpf (0-5); pH Urine 5.5 (4.5-7.5)
[2021-12-12 09:07] LABS: Albumin Level 4.2 gm/dl (3.4-5.0); Anion Gap 7 (3-11); Calcium 10.2 mg/dl (8.5-10.1); Carbon Dioxide 28 mmol/L (21-32); Chloride 103 mmol/L (98-107); Potassium 3.7 mmol/L (3.5-5.1); Sodium 138 mmol/L (136-145)
[2021-12-12 09:13] LABS: Alanine Aminotransferase 9 U/L (7-52); Alkaline Phosphatase 51 U/L (34-104); Aspartate Aminotransferase 13 U/L (13-39); BUN Creatinine Ratio 18.9 (10-20); Blood Urea Nitrogen 38 mg/dl (6-23); Est GFR (African American) 25.2 ml/min; Est GFR (Non-African American) 21.8 ml/min; Globulin 2.1 gm/dl (2.5-4.0); Glucose 134 mg/dl (70-99(Fasting)); Lipase 22 U/L (11-82); Total Protein 6.3 gm/dl (6.0-8.3)
--- NOTE | 2021-12-12 09:33 | CT Scan Report ---
ABDOMEN AND PELVIS CT WITHOUT CONTRAST CT DOSE: 793.77 mGy.cm HISTORY: Acute right lower quadrant abdominal pain rlq pain, hist divertic TECHNIQUE: Multiaxial CT images of the abdomen and pelvis were performed without contrast. A dose lo wering technique was utilized adhering to the principles of ALARA. COMPARISON STUDY: CT abdomen and pelvis 06/18/2021 FINDINGS: Cardiomegaly with coronary artery ossifications. Mild subsegmental bibasilar atelectasis/sc arring. No pneumatosis or pneumoperitoneum. The unenhanced spleen, mildly atrophic pancreas and right adrenal gland are unremarkable. 2 cm left adrenal myolipoma. 1.7 cm left hepatic lobe cyst. Cholecys tectomy. Severe cortical thinning of the kidneys is unchanged. 4.7 x 4.1 cm hyperdense parapelvic cyst of the left kidney previously measured 4.3 x 3.9 cm. Mild hydronephrosis of the superior pole left kidney is new from prior. No renal or ureteral calculi. There are several bilateral intermediate density and m ildly hyperdense renal lesions including a 1.5 cm lesion of the inferior pole right kidney. These monique ear similar to prior and may represent proteinaceous or hemorrhagic cysts. Mild urinary bladder wall thickening with partial distention. Hysterectomy. Atherosclerosis of the abdominal aorta without aneu rysm. No adenopathy. No bowel obstruction. Colonic diverticulosis. There is trace edema within the sigmoid mesocolon. Mild sigmoid colon wall thickening. The right hemicolon appears normal. Appendectomy. Varicosities of the right breast. Subcutaneous stranding of the anterior abdominal wall suggests medicinal injection sit es. Degenerative changes of the spine, pelvis and hips. IMPRESSION: 1. Left parapelvic hyperdense renal cyst has mildly increased in size from 06/18/2021 and now results in mild hydronephrosis of the superior pole left kidney. 2. No renal or ureteral calculi. 3. Severe cortical atrophy of the kidneys redemonstrated. 4. Colonic diverticulosis. Mild wall thickening of the sigmoid colon with trace edema within the sigm oid mesocolon should be correlated clinically to exclude subtle acute diverticulitis. 5. No bowel obstruction. 6. Additional findings as above. ACT 112: Negative or not required by law. The above report was generated using voice recognition software. It may contain grammatical, syntax o r spelling errors. Electronically signed by: Doug Patel M.D. 12/12/2021 9:32 AM
--- NOTE | 2021-12-12 10:07 | History & Physical Report ---
Date of Service December 12, 2021 Assessment & Plan (1) Back pain: (2) Spinal stenosis: Plan: Lumbar radiculopathy Patient is 86-year-old female with PMH DM II, CKD IV, HTN, HLD, nocturnal hypoxia on oxygen at bedtime, chronic diastolic heart failure, LBBB, chronic anemia, spinal stenosis, renal mass, h/o diverticulitis followed by c-diff presented to ER with complaint of chronic right back and leg pain, however worse past 2 days. No acute trauma Follows with Dr Vinson for spinal injections, next injection scheduled in the beginning of December 2021. Patient will need continued outpatient follow-up Suspect worsening chronic pain PT/OT eval Fall precautions Patient uses walker at baseline Continue lidocaine patch, diclofenac, scheduled Tylenol Add oxycodone, morphine for severe pain Possible diverticulitis CT abdomen pelvis: Colonic diverticulosis. Mild wall thickening of the sigmoid colon with trace edema within the sigmoid mesocolon should be correlated clinically to exclude subtle acute diverticulitis. Less likely suspect acute diverticulitis as patient without fever or diarrhea, no leukocytosis, no significant abdominal tenderness on exam Suspect abdominal fullness secondary to increased edema as patient has not been taking Lasix as was thought to be only taking as needed Per Dr. Childress's note 11/22/2021 "continue Lasix 40 mg daily as needed and may take an additional 20 mg in the evening if needed." Will hold on antibiotics at this time and allow diet Will consult GI for further evaluation and recommendations as patient reports GI had suggested in past to be consulted if diverticulitis was suspected as patient developed C. difficile after treatment Current UA appears contaminated. Patient without UTI symptoms. Urine culture pending CBC, BMP in a.m. DM II A1c: 6.1 on 11/17/2021 Hold home Humulin 70/30 Basal bolus insulin per protocol Chronic diastolic heart failure Patient reports abdominal fullness, has been taking Lasix as needed instead of daily. otherwise does not appear grossly overloaded Continue oral Lasix daily Monitor I's and O's CKD IV Cr: 2.0. Baseline Cr: ~2.3 Follows with [facility] [place] nephrology Monitor renal functions HTN Continue hydralazine, carvedilol, Lasix Left renal mass Patient with known left renal mass and is following with urology who is monitori ng No significant changes were noted on today CT abdomen pelvis Nocturnal Hypoxia Continue 2L oxygen HS GERD continue H2 ada Gout Continue allopurinol DVT Prophylaxis Heparin SQ Full Code as per discussion with pt Follows with Dr Ramirez for routine care Pt was seen and care coordinated with Dr Byers. See addendum History of Present Illness Chief Complaint: Hip pain Primary Care Provider: Fox Ramirez MD Patient is 86-year-old female with PMH DM II, CKD IV, HTN, HLD, nocturnal hypoxia on oxygen at bedtime, chronic diastolic heart failure, LBBB, chronic anemia, spinal stenosis, renal mass, h/o diverticulitis followed by c-diff presented to ER with complaint of right back and leg pain and flank pain. Patient reports chronic low back and right posterior hip pain with radiation down right posterior leg to knee then laterally down the leg to to foot. She reports following with Dr. Vinson for spinal injections, is scheduled to have repeat injection first week of December. Patient states 2 nights ago with right posterior hip pain with radiation down right leg which feels like her baseline pain however is more intense. She reports she often needs to sleep in recliner to help ease pain however that was not working, and cannot find a comfortable position to sleep in. She reports she had leftover tramadol and try taking 1 pill with some relief of pain. Reports following night increased pain again and tried tramadol in the middle the night without much relief. She reports pain is causing nausea. Denies any vomiting. She reports walker uses baseline secondary to pain that is worse with ambulation. Reports current neck urinary incontinence. Denies any loss of control of bowels or increase loss control of bladder. Denies extremity paresthesias. Denies fall or new injury. Patient reports chronic bilateral knee pain, reports right usually worse. Follows with Ortho and often gets injections to knees as well. Patient feels that she is having abdominal fullness for the past 2 weeks, feels a little more "full" to the right lower side. 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 Per Dr. Childress's note: "continue Lasix 40 mg daily as needed and may take an additional 20 mg in the evening if needed." Last year patient with history of diverticulitis treated with Cipro and Flagyl, unfortunately developed C. difficile. Was treated with p.o. vancomycin and IV Flagyl. During the hospitalization patient had persistent nausea with question of possible secondary to IV Flagyl vs constipation induced nausea. Patient reports GI had instructed her if she ever has another episode of diverticulitis that they would want consulted prior to be placed on antibiotics. Patient denies any known fever. She reports twice in the middle the night woke up sweaty and checked her blood sugar and was 120. Patient reports if her blood sugars go below 150 she often gets nauseated and if they kill her and that she will have diaphoresis. Patient denies any other night sweats. She reports chronically cold. Last bowel movement yesterday. Patient states took prune juice today to help with her chronic constipation. Denies any diarrhea, melena, hematochezia, vomiting. Denies DAILEY, dizziness, syncope, vision changes, neck pain, CP, SOB, orthopnea, palpitations, cough, sore throat, choking, otalgia, rhinorrhea, increasing extremity weakness, hematuria, dysuria. Allergies Allergy/AdvReac Type Severity Reaction Status Date / Time No Known Allergies Allergy Verified 11/25/21 13:39 Home Medications Medication Instructions Recorded Confirmed Type acetaminophen 500 mg tablet 1,000 mg PO AMPM 12/30/18 12/12/21 History (Tylenol Extra Strength) aspirin 81 mg tablet,delayed 81 mg PO QAM 12/30/18 12/12/21 History release isosorbide dinitrate 20 mg tablet 20 mg PO TID 12/30/18 12/12/21 History rosuvastatin 10 mg tablet 10 mg PO QPM 12/30/18 12/12/21 History famotidine 20 mg tablet (Pepcid) 20 mg PO QPM@1700 11/18/19 12/12/21 History lidocaine 4 % topical patch 1 patch TOPICAL QAM 06/23/20 12/12/21 History (Salonpas (lidocaine)) insulin human U-100 NPH-regulr See Rx Instructions .ROUTE .COMPLEX 03/16/21 12/12/21 History 70-30 mix 100 unit/mL subcutaneous susp (Humulin 70/30 U-100 Insulin) allopurinol 100 mg tablet 200 mg PO DAILY@1200 03/17/21 12/12/21 History diclofenac sodium 1 % topical gel 4 g TOP QID PRN 03/17/21 12/12/21 History cyanocobalamin (vitamin B-12) 500 500 mcg PO QAM #30 tab 03/27/21 12/12/21 Rx mcg tablet furosemide 40 mg tablet 40 mg PO QAM 04/29/21 12/12/21 History carvedilol 25 mg tablet 25 mg PO BID 06/13/21 12/12/21 History hydralazine 100 mg tablet 100 mg PO TID 06/13/21 12/12/21 History simethicone 80 mg chewable tablet 80 mg PO Q6H PRN #30 tab 07/01/21 12/12/21 Rx (Mi-Acid Gas Relief (simethicone)) calcitriol 0.25 mcg capsule 0.25 mcg PO DAILY #90 cap 08/24/21 12/12/21 Rx Saccharomyces boulardii 250 mg 250 mg PO QAM 08/26/21 12/12/21 History capsule (Florastor) ondansetron 4 mg disintegrating 4 mg PO Q6H PRN #14 tab 11/25/21 12/12/21 Rx tablet Past Med/Surg History Medical History CHF (congestive heart failure) follows with Kaushal Nieto PA-C Chronic back pain Chronic kidney disease (CKD), stage IV (severe) follows with Dr. Childress Diabetes mellitus, type 2 Diverticulitis large intestine hx Hearing deficit History of kidney stones HTN (hypertension) Hyperlipidemia Kidney cysts LEFT SIDE>BEING MONITORED BY UROLOGY [facility] [place] Morbid obesity with BMI of 40.0-44.9, adult Nocturnal hypoxemia On home oxygen therapy 2L N/C at HS only Osteoarthritis Spinal stenosis Surgical History H/O: hysterectomy History of arthroscopy of left knee History of bilateral tubal ligation [place] of cardiac [place] [facility] [place] History of colonoscopy History of cystoscopy History of dilatation and curettage History of esophagogastroduodenoscopy (EGD) History of tooth extraction all teeth Hx of appendectomy Hx of cholecystectomy Nausea and vomiting after administration of anesthetic agent Family History Sister Family history of diabetes mellitus Sister Family history of diabetes mellitus Brother Family history of diabetes mellitus Family history of esophageal cancer Brother Family history of esophageal cancer Father Lung cancer Other No family history of adverse response to anesthesia No significant family history Social History Smoking Status: Never smoker Second Hand Exposure: No; Hx Alcohol Use: No Hx Substance Use: No Preferred Language: Frisian Communication Ability: Effective Analyst Competitive Intelligence Required: No Beliefs That Will Affect Care: None marital status: / Current Living Situation: Family Current Living Situation Comment: WITH SON Feels Safe at Home: Yes Assistive Devices: Denture - Upper, Denture - Lower, Glasses, Oxygen - at Night and Walker Review of Systems Review of Systems: All systems reviewed & are unremarkable except as noted in HPI & below Physical Exam Physical Exam: General: no distress, obese Head: normocephalic, atraumatic Eyes: PERRL, EOM's intact, conjunctiva non-injected, anicteric ENT: normal inspection external ears, nose, mucous membranes moist Neck: supple, trachea midline Lungs: clear, no respiratory distress, no wheezing/rhonchi/rales CV: RRR, no murmur, trace pretibial edema Abd: protuberant, normal BS, soft, no apparent tenderness to palpation Back: +tenderness to palpation right posterior hip/buttock, able to flex and extend bilateral legs with reproduced pain to hips, distal pulses palpable, se nsation to light touch intact Ext: no cyanosis, no calf tenderness Neuro: A&O x 3, no focal deficits noted, normal affect Skin: warm, dry Results & Data Results & Data ([facility]) Vital Signs (Past 12 Hours) Vital Signs Temp Pulse Pulse Resp BP BP Pulse Ox 12/12/21 09:29 36.3 C L 68 18 170/64 H 96 12/12/21 08:07 36.9 C 84 20 187/74 H 97 Laboratory Results Short CBC 12/12/21 12/12/21 Range/Units 08:43 08:43 WBC 6.37 (4.8-10.8) K/uL Hgb 10.2 L (12.0-16.0) g/dL Hct 31.9 L (37-47) % Plt Count 308 (130-400) K/uL Creatinine 2.01 H (0.6-1.2) mg/dl BMP 12/12/21 08:43 Sodium 138 Potassium 3.7 Chloride 103 Carbon Dioxide 28 BUN 38 H Creatinine 2.01 H Glucose 134 H Calcium 10.2 H Liver Function 12/12/21 Range/Units 08:43 Total Bilirubin 1.0 (0.2-1.0) mg/dl AST 13 (13-39) U/L ALT 9 (7-52) U/L Alkaline Phosphatase 51 (34-104) U/L Albumin 4.2 (3.4-5.0) gm/dl Urine 12/12/21 Range/Units 08:43 Urine Color Yellow Urine Appearance Clear (Clear) Urine pH 5.5 (4.5-7.5) Ur Specific Volin 1.015 (1.000-1.030) Urine Protein 3+ H (Negative) Urine Glucose (UA) Negative (Negative) Diagnostic Findings Abdomen/Pelvis CT 12/12/21 08:[address] WITHOUT CONTRAST CT DOSE: 793.77 mGy.cm HISTORY: Acute right lower quadrant abdominal pain rlq pain, hist divertic TECHNIQUE: Multiaxial CT images of the abdomen and pelvis were performed without contrast. A dose lowering technique was utilized adhering to the principles of ALARA. COMPARISON STUDY: CT abdomen and pelvis 06/18/2021 FINDINGS: Cardiomegaly with coronary artery ossifications. Mild subsegmental bibasilar atelectasis/scarring. No pneumatosis or pneumoperitoneum. The unenhanced spleen, mildly atrophic pancreas and right adrenal gland are unremarkable. 2 cm left adrenal myolipoma. 1.7 cm left hepatic lobe cyst. Cholecystectomy. Severe cortical thinning of the kidneys is unchanged. 4.7 x 4.1 cm hyperdense parapelvic cyst of the left kidney previously measured 4.3 x 3.9 cm. Mild hydronephrosis of the superior pole left kidney is new from prior. No renal or ureteral calculi. There are several bilateral intermediate density and mildly hyperdense renal lesions including a 1.5 cm lesion of the inferior pole right kidney. These appear similar to prior and may represent proteinaceous or hemor rhagic cysts. Mild urinary bladder wall thickening with partial distention. Hysterectomy. Atherosclerosis of the abdominal aorta without aneurysm. No adenopathy. No bowel obstruction. Colonic diverticulosis. There is trace edema within the sigmoid mesocolon. Mild sigmoid colon wall thickening. The right hemicolon appears normal. Appendectomy. Varicosities of the right breast. Subcutaneous stranding of the anterior abdominal wall suggests medicinal injection sites. Degenerative changes of the spine, pelvis and hips. IMPRESSION: 1. Left parapelvic hyperdense renal cyst has mildly increased in size from 06/18/2021 and now results in mild hydronephrosis of the superior pole left kidney. 2. No renal or ureteral calculi. 3. Severe cortical atrophy of the kidneys redemonstrated. 4. Colonic diverticulosis. Mild wall thickening of the sigmoid colon with trace edema within the sigmoid mesocolon should be correlated clinically to exclude subtle acute diverticulitis. 5. No bowel obstruction. 6. Additional findings as above. ACT 112: Negative or not required by law. The above report was generated using voice recognition software. It may contain grammatical, syntax or spelling errors. Electronically signed by: Doug Patel M.D. 12/12/2021 9:32 AM Supervising Physician Co-Signing Physician Notes History and exam performed by me as detailed by Natalie Helm PA-C. Notable for 86-year-old woman with medical problems as detailed, who presented with worsening chronic low back pain. Review of system also notable for frequency. Physical exam notable for obese elderly woman in no obvious distress. No abdominal tenderness, Mild tenderness over lower back Lab work notable for hemoglobin of 10, creatinine of 2. UA showed trace leukocyte esterase, WBC more than 30 with some epithelial cells Abdominal CT reported left parapelvic hyperdense renal cyst mildly increased in size from May 2021 and now results in mild hydronephrosis of the superior pole of the left kidney, severe cortical atrophy of the kidneys redemonstrated, colonic diverticulosis. Patient has chronic back pain and gets injections. Patient's back pain may be related to this. Patient does have chronic kidney disease with renal cyst. CT reported mild increase in size and mild hydronephrosis of the superior pole of the left kidney. Renal function is at baseline. Doubtful that this is contributing to back pain as patient reports pain radiates to the hip and down to the legs per her usual chronic pain characteristics. Will appreciate pain management. Continue home pain regimen Based on her history and my exam, diverticulitis is doubtful. Patient reports dysuria and UA has some WBC and trace esterase. Will start ceftriaxone empirically for now await urine culture for possible UTI. Agree with other plans as detailed by Natalie Helm PA-C (1) Spinal stenosis Spinal region: unspecified Qualified Code(s): M48.00 - Spinal stenosis, site unspecified
[2021-12-12] MEDS ORDERED: DEXTROSE 50% 50 ML SYRINGE IV PRN (12:20)
[2021-12-12] MEDS ORDERED: ONDANSETRON INJ 2 MG/ML 2 ML VIAL IV PRN (12:20)
[2021-12-12] MEDS ORDERED: CARBOHYDRATES FOR HYPOGLYCEMIA PO PRN (12:20)
[2021-12-12] MEDS ORDERED: GLUCAGON FOR INJ 1 MG VIAL SQ PRN (12:20)
[2021-12-12] MEDS ORDERED: GLUCOSE 40% GEL 15 GM TUBE PO PRN (12:20)
[2021-12-12] MEDS ORDERED: GLUCOSE 10 TABS/TUBE PO PRN (12:20)
[2021-12-12] MEDS ORDERED: POLYETHYLENE (MIRALAX) 17 GM PACK PO PRN (12:20)
[2021-12-12] MEDS ORDERED: cefTRIAXone SODIUM 2,000 MG in DEXTROSE 5% 50 ML IV SCH (13:00)
[2021-12-12] MEDS: INSULIN ASPART PER UNIT SC SCH ×3 (13:41→21:19)
[2021-12-12] MEDS: allopurinoL 100 MG TAB PO SCH (14:17)
[2021-12-12] MEDS: FUROSEMIDE 40 MG TAB PO SCH (14:18)
[2021-12-12] MEDS: ISOSORBIDE DINITRATE 20 MG TAB PO SCH ×2 (14:18→17:53)
[2021-12-12] MEDS: LIDOCAINE 5% 1 PATCH TD SCH (14:18)
[2021-12-12] MEDS: hydrALAZINE TAB 50 MG TAB PO SCH ×2 (14:18→20:14)
[2021-12-12] MEDS: HEPARIN SOD 5,000 UNIT/0.5 ML VIAL SQ SCH ×2 (14:19→22:08)
--- NOTE | 2021-12-12 14:57 | Gastrointestinal Consultation ---
Date of Consultation December 12, 2021 Assessment & Plan (1) Back pain: (2) Abnormal CT scan: (3) Constipation: diverticulosis without definitive diverticulitis, does have some mild constipation and bloating recs: --start miralax 17 g daily --diet as tolerated, would monitor clinically --no abx at this time do not suspect diverticulitis --treatment of back and leg pains as per primary team Thank you for allowing me to participate in the care of this patient History of Present Illness Attending Physician: Beverley Byers MD History of Present Illness 86-year-old female with PMH DM II, CKD IV, HTN, HLD, nocturnal hypoxia on oxygen at bedtime, chronic diastolic heart failure, LBBB, chronic anemia, spinal stenosis, renal mass, h/o diverticulitis followed by c-diff presented to ER with back and leg pains. GI consulted for possible diverticulitis. She notes pain down her right leg and in her back. Also notes bloating and uses prune juice to help her have bowel movements, but describes recent bowel movement as small volume. imaging shows diverticulosis and some edema, no definitive diverticulitis. No leukocytosis nor fever nor LLQ abdominal pains. labs reviewed, hypertensive. Allergies Allergy/AdvReac Type Severity Reaction Status Date / Time No Known Allergies Allergy Verified 11/25/21 13:39 Home Medications Medication Instructions Recorded Confirmed Type acetaminophen 500 mg tablet 1,000 mg PO AMPM 12/30/18 12/12/21 History (Tylenol Extra Strength) aspirin 81 mg tablet,delayed 81 mg PO QAM 12/30/18 12/12/21 History release isosorbide dinitrate 20 mg tablet 20 mg PO TID 12/30/18 12/12/21 History rosuvastatin 10 mg tablet 10 mg PO QPM 12/30/18 12/12/21 History famotidine 20 mg tablet (Pepcid) 20 mg PO QPM@1700 11/18/19 12/12/21 History lidocaine 4 % topical patch 1 patch TOPICAL QAM 06/23/20 12/12/21 History (Salonpas (lidocaine)) insulin human U-100 NPH-regulr See Rx Instructions .ROUTE .COMPLEX 03/16/21 12/12/21 History 70-30 mix 100 unit/mL subcutaneous susp (Humulin 70/30 U-100 Insulin) allopurinol 100 mg tablet 200 mg PO DAILY@1200 03/17/21 12/12/21 History diclofenac sodium 1 % topical gel 4 g TOP QID PRN 03/17/21 12/12/21 History cyanocobalamin (vitamin B-12) 500 500 mcg PO QAM #30 tab 03/27/21 12/12/21 Rx mcg tablet furosemide 40 mg tablet 40 mg PO QAM 04/29/21 12/12/21 History carvedilol 25 mg tablet 25 mg PO BID 06/13/21 12/12/21 History hydralazine 100 mg tablet 100 mg PO TID 06/13/21 12/12/21 History simethicone 80 mg chewable tablet 80 mg PO Q6H PRN #30 tab 07/01/21 12/12/21 Rx (Mi-Acid Gas Relief (simethicone)) calcitriol 0.25 mcg capsule 0.25 mcg PO DAILY #90 cap 08/24/21 12/12/21 Rx Saccharomyces boulardii 250 mg 250 mg PO QAM 08/26/21 12/12/21 History capsule (Florastor) ondansetron 4 mg disintegrating 4 mg PO Q6H PRN #14 tab 11/25/21 12/12/21 Rx tablet Patient History Medical History CHF (congestive heart failure) follows with Kaushal Nieto PA-C Chronic back pain Chronic kidney disease (CKD), stage IV (severe) follows with Dr. Childress Diabetes mellitus, type 2 Diverticulitis large intestine hx Hearing deficit History of kidney stones HTN (hypertension) Hyperlipidemia Kidney cysts LEFT SIDE>BEING MONITORED BY UROLOGY [facility] Morbid obesity with BMI of 40.0-44.9, adult Nocturnal hypoxemia On home oxygen therapy 2L N/C at HS only Osteoarthritis Spinal stenosis Surgical History H/O: hysterectomy History of arthroscopy of left knee History of bilateral tubal ligation [place] [facility] [place] History of colonoscopy History of cystoscopy History of dilatation and curettage History of esophagogastroduodenoscopy (EGD) History of tooth extraction all teeth Hx of appendectomy Hx of cholecystectomy Nausea and vomiting after administration of anesthetic agent Family History Sister Family history of diabetes mellitus Sister Family history of diabetes mellitus Brother Family history of diabetes mellitus Family history of esophageal cancer Brother Family history of esophageal cancer Father Lung cancer Other No family history of adverse response to anesthesia No significant family history Social History Smoking Status: Never smoker Second Hand Exposure: No; Hx Alcohol Use: No Hx Substance Use: No Preferred Language: Kinyarwanda Communication Ability: Effective Used Car Lot Attendant Required: No Beliefs That Will Affect Care: None marital status: / Current Living Situation: Family Current Living Situation Comment: WITH SON Feels Safe at Home: Yes Assistive Devices: Denture - Upper, Denture - Lower, Glasses, Oxygen - at Night and Walker Review of Systems Constitutional: no fever, no chills and no weight loss Eyes: as per Subjective / HPI Ear, Nose, Mouth, Throat: as per Subjective / HPI Respiratory: no dyspnea and no dyspnea on exertion Cardiovascular: no chest pain and no palpitations Gastrointestinal: as per Subjective / HPI Musculoskeletal: no joint pain and no swelling Integumentary: no rash and no lesions Neurologic: no numbness and no paresthesia Psychiatric: no depression and no anxiety Endocrine: no fatigue Hematologic / Lymphatic: no easy bleeding and no easy bruising Physical Exam Constitutional: WD/WN, vitals as above Eyes: EOM intact bilaterally Neck: normal visual inspection Respiratory: normal respiratory effort, lungs clear to auscultation Cardiovascular: RRR, no murmur, no edema Gastrointestinal (Abdomen): Inspection/Auscultation: abdomen normal to inspection; abdomen not distended Percussion/Palpation: abdomen soft; abdomen nontender and no hepatosplenomegaly Musculoskeletal: Extremities: no cyanosis Gait: normal gait Skin: no rashes, warm and dry Neurologic: moves all extremities Psychiatric: A+Ox3, euthymic affect Results & Data ([facility]) Vital Signs (Past 12 Hours) Vital Signs Temp Pulse Pulse Resp BP BP Pulse Ox 12/12/21 11:26 66 175/66 H 94 12/12/21 09:29 36.3 C L 68 18 170/64 H 96 12/12/21 08:07 36.9 C 84 20 187/74 H 97 PG Care Time/CCT Total # of Minutes Spent Total Time Spent with Patient: Total time spent is greater than 50% in coordination of care (as documented) at patient's floor/unit and/or counseling patient: Coding Level of Care Code 30747 Initial Inpt Care Lvl 3 Diagnoses Back pain M54.[address] scan R93.89 Constipation K59.00
[2021-12-12] MEDS: FAMOTIDINE 20 MG TAB PO SCH (17:53)
[2021-12-12] MEDS: ROSUVASTATIN CALCIUM 10 MG TAB PO SCH (20:14)
[2021-12-12] MEDS: oxyCODONE HCL IR 5 MG TAB (IMMEDIATE RELEASE) PO PRN (20:14)
[2021-12-12] MEDS: DOCUSATE SODIUM 100 MG CAP PO SCH (20:14)
[2021-12-12] MEDS: ACETAMINOPHEN 500 MG TAB PO SCH (20:15)
[2021-12-12] MEDS: carvediloL 25 MG TAB PO SCH (20:15)
[2021-12-12] MEDS: NYSTATIN OINT 15 GM TUBE EXT SCH (20:22)
[2021-12-12] MEDS: INSULIN GLARGINE SOLOSTAR 100 UNITS/ML 3 ML PEN SC SCH (21:19)
[2021-12-13] MEDS: ACETAMINOPHEN 325 MG TAB PO PRN ×2 (00:12→06:23)
[2021-12-13] MEDS: oxyCODONE HCL IR 5 MG TAB (IMMEDIATE RELEASE) PO PRN (03:04)
[2021-12-13] MEDS: HEPARIN SOD 5,000 UNIT/0.5 ML VIAL SQ SCH ×3 (06:22→21:25)
[2021-12-13] MEDS: ISOSORBIDE DINITRATE 20 MG TAB PO SCH ×3 (06:23→17:18)
[2021-12-13] MEDS: LIDOCAINE 5% 1 PATCH TD SCH (07:51)
[2021-12-13] MEDS: ACETAMINOPHEN 500 MG TAB PO SCH ×2 (08:07→21:22)
[2021-12-13] MEDS: FUROSEMIDE 40 MG TAB PO SCH (08:14)
[2021-12-13] MEDS: CALCITRIOL 0.25 MCG CAPSULE PO SCH (08:14)
[2021-12-13] MEDS: CYANOCOBALAMIN (B-12) 500 MCG TABLET PO SCH (08:14)
[2021-12-13] MEDS: SACCHAROMYCES BOULARDII 250 MG CAP PO SCH (08:14)
[2021-12-13] MEDS: DOCUSATE SODIUM 100 MG CAP PO SCH ×2 (08:14→21:22)
[2021-12-13] MEDS: ASPIRIN 81 MG ECTAB PO SCH (08:14)
[2021-12-13] MEDS: NYSTATIN OINT 15 GM TUBE EXT SCH ×3 (08:14→21:43)
[2021-12-13] MEDS: hydrALAZINE TAB 50 MG TAB PO SCH ×3 (08:14→21:23)
[2021-12-13] MEDS: carvediloL 25 MG TAB PO SCH ×2 (08:14→21:22)
[2021-12-13] MEDS ORDERED: METHYLNALTREXONE BROMIDE 12 MG/0.6 ML VIAL SQ PRN (08:37)
[2021-12-13 09:06] LABS: Hematocrit (blood only) 31.4 % (37-47); Hemoglobin 9.9 g/dL (12.0-16.0); Mean Corpuscular Hemoglobin 30.4 pg (25-34); Mean Corpuscular Hgb Conc 31.5 g/dL (32-36); Mean Corpuscular Volume 96.3 fL (80-100); Mean Platelet Volume 9.5 fL (7.4-10.4); Platelet Count 298 K/uL (130-400); RDW Coefficient of Variation 15.3 % (11.5-14.5); RDW Standard Deviation 54.1 fL (36.4-46.3); Red Blood Count 3.26 M/uL (4.2-5.4)
[2021-12-13 09:40] LABS: BUN Creatinine Ratio 17.5 (10-20); Calcium 9.9 mg/dl (8.5-10.1); Creatinine Clr Calc Pharmacy 21.5 ml/min; Est GFR (African American) 23.7 ml/min; Est GFR (Non-African American) 20.4 ml/min; Potassium 3.9 mmol/L (3.5-5.1)
[2021-12-13] MEDS: PREGABALIN 25 MG CAP PO SCH ×2 (09:59→21:45)
[2021-12-13] MEDS: traMADol HCL 50 MG TABLET PO PRN ×2 (09:59→19:42)
--- NOTE | 2021-12-13 10:35 | Pain Management Consultation ---
Date of Consultation December 13, 2021 Assessment & Plan (1) Spinal stenosis: Spinal region: unspecified Qualified Code(s): M48.00 - Spinal stenosis, site unspecified (2) Obesity: (3) Constipation: (4) DM (diabetes mellitus): 1. Discussed with the patient obtained a lumbar spine MRI w/o contrast and she adamantly defers due to claustrophobia. Will review CT images with radiology to assess spinal stenosis. 2. Recommend lyrica 25mg po BID. 3. Patient with significant constipation, recommend diminishing opiates to tramadol 50mg po q6hr prn pain, increase bowel regimen and add relistor for OIC prn. 4. PT/OT recommended 5. Recommend she keep her JIE appointment with Dr Vinson. No plans for inpatient interventional pain management at this time. 6. Thank you for this consult. Will follow up in AM to confirm efficacy. History of Present Illness Reason for Consultation: Attending Physician: Beverley Byers MD History of Present Illness 86yo F with multiple co-morbidities and long standing lumbar spinal stenosis. Patient state pain is 60%axial L3-S1 to 40% right greater than left L5 and occasional S1 symptoms. She states her pain rates between 4 and 10 out of 10 characterized as sharp shooting with deep aching cramping at times. She reports significant amount of constipation and has not moved her bowels for 1 to 2 days with utilization of IV morphine and oxycodone. She previously utilized tramadol and Lyrica with moderate benefit. Is not currently utilizing dose at this time. She reports her lumbar spinal stenosis symptoms have been mitigated with epidural steroid injections performed by Dr. Templeton and has her next scheduled epidurals for December 2021. I requested an MRI but she states that due to her significant claustrophobia she is adamantly refusing further imaging. She denies any bowel or bladder incontinence, motor weakness, footdrop, fever, chills, night sweats. Pain Assessment Full Body Front + Back: 1. 2. 3. 4. [facility] Combined Pain Scale: 6-Mod to Severe - Significant limitations of ADLs. Hard to do anything Pain scale - at its best (0-10): 4 Pain scale - at its worst (0-10): 10 Allergies Allergy/AdvReac Type Severity Reaction Status Date / Time No Known Allergies Allergy Verified 11/25/21 13:39 Home Medications Medication Instructions Recorded Confirmed Type acetaminophen 500 mg tablet 1,000 mg PO AMPM 12/30/18 12/12/21 History (Tylenol Extra Strength) aspirin 81 mg tablet,delayed 81 mg PO QAM 12/30/18 12/12/21 History release isosorbide dinitrate 20 mg tablet 20 mg PO TID 12/30/18 12/12/21 History rosuvastatin 10 mg tablet 10 mg PO QPM 12/30/18 12/12/21 History famotidine 20 mg tablet (Pepcid) 20 mg PO QPM@1700 11/18/19 12/12/21 History lidocaine 4 % topical patch 1 patch TOPICAL QAM 06/23/20 12/12/21 History (Salonpas (lidocaine)) insulin human U-100 NPH-regulr See Rx Instructions .ROUTE .COMPLEX 03/16/21 12/12/21 History 70-30 mix 100 unit/mL subcutaneous susp (Humulin 70/30 U-100 Insulin) allopurinol 100 mg tablet 200 mg PO DAILY@1200 03/17/21 12/12/21 History diclofenac sodium 1 % topical gel 4 g TOP QID PRN 03/17/21 12/12/21 History cyanocobalamin (vitamin B-12) 500 500 mcg PO QAM #30 tab 03/27/21 12/12/21 Rx mcg tablet furosemide 40 mg tablet 40 mg PO QAM 04/29/21 12/12/21 History carvedilol 25 mg tablet 25 mg PO BID 06/13/21 12/12/21 History hydralazine 100 mg tablet 100 mg PO TID 06/13/21 12/12/21 History simethicone 80 mg chewable tablet 80 mg PO Q6H PRN #30 tab 07/01/21 12/12/21 Rx (Mi-Acid Gas Relief (simethicone)) calcitriol 0.25 mcg capsule 0.25 mcg PO DAILY #90 cap 08/24/21 12/12/21 Rx Saccharomyces boulardii 250 mg 250 mg PO QAM 08/26/21 12/12/21 History capsule (Florastor) ondansetron 4 mg disintegrating 4 mg PO Q6H PRN #14 tab 11/25/21 12/12/21 Rx tablet Pain History Pain Intensity Pain scale - at its best (0-10): 4 Pain scale - at its worst (0-10): 10 Patient History Medical History (Updated 12/13/21 @ 10:29 by Yasmine Urban DO) CHF (congestive heart failure) follows with Kaushal Nieto PA-C Chronic back pain Chronic kidney disease (CKD), stage IV (severe) follows with Dr. Childress Diabetes mellitus, type 2 Diverticulitis large intestine hx Hearing deficit History of kidney stones HTN (hypertension) Hyperlipidemia Kidney cysts LEFT SIDE>BEING MONITORED BY UROLOGY [facility] Morbid obesity with BMI of 40.0-44.9, adult Nocturnal hypoxemia On home oxygen therapy 2L N/C at HS only Osteoarthritis Surgical History H/O: hysterectomy History of arthroscopy of left knee History of bilateral tubal ligation History of cardiac cath ?2009--@ [facility] [place]--no stents History of colonoscopy History of cystoscopy History of dilatation and curettage History of esophagogastroduodenoscopy (EGD) History of tooth extraction all teeth Hx of appendectomy Hx of cholecystectomy Nausea and vomiting after administration of anesthetic agent Family History Sister Family history of diabetes mellitus Sister Family history of diabetes mellitus Brother Family history of diabetes mellitus Family history of esophageal cancer Brother Family history of esophageal cancer Father Lung cancer Other No family history of adverse response to anesthesia No significant family history Social History Smoking Status: Never smoker Second Hand Exposure: No; Hx Alcohol Use: No Hx Substance Use: No Preferred Language: Kazakh Communication Ability: Effective Investigation Clerk Required: No Beliefs That Will Affect Care: None marital status: / Current Living Situation: Family Current Living Situation Comment: WITH SON Feels Safe at Home: Yes Assistive Devices: Walker Results (Pain Clinic) Diagnostic Review CT: non enhanced, reports reviewed, images reviewed and findings discussed with patient CT Findings: 12/12/[address] WITHOUT CONTRAST CT DOSE: 793.77 mGy.cm HISTORY: Acute right lower quadrant abdominal pain rlq pain, hist divertic TECHNIQUE: Multiaxial CT images of the abdomen and pelvis were performed without contrast. A dose lowering technique was utilized adhering to the principles of ALARA. COMPARISON STUDY: CT abdomen and pelvis 06/18/2021 FINDINGS: Cardiomegaly with coronary artery ossifications. Mild subsegmental bibasilar atelectasis/scarring. No pneumatosis or pneumoperitoneum. The unenhanced spleen, mildly atrophic pancreas and right adrenal gland are unremarkable. 2 cm left adrenal myolipoma. 1.7 cm left hepatic lobe cyst. Cholecystectomy. Severe cortical thinning of the kidneys is unchanged. 4.7 x 4.1 cm hyperdense parapelvic cyst of the left kidney previously measured 4.3 x 3.9 cm. Mild hydronephrosis of the superior pole left kidney is new from prior. No renal or ureteral calculi. There are several bilateral intermediate density and mildly hyperdense renal lesions including a 1.5 cm lesion of the inferior pole right kidney. These appear similar to prior and may represent proteinaceous or hemorrhagic cysts. Mild urinary bladder wall thickening with partial distention. Hysterectomy. Atherosclerosis of the abdominal aorta without aneurysm. No ad enopathy. No bowel obstruction. Colonic diverticulosis. There is trace edema within the sigmoid mesocolon. Mild sigmoid colon wall thickening. The right hemicolon appears normal. Appendectomy. Varicosities of the right breast. Subcutaneous stranding of the anterior abdominal wall suggests medicinal injection sites. Degenerative changes of the spine, pelvis and hips. IMPRESSION: 1. Left parapelvic hyperdense renal cyst has mildly increased in size from 06/18/2021 and now results in mild hydronephrosis of the superior pole left kidney. 2. No renal or ureteral calculi. 3. Severe cortical atrophy of the kidneys redemonstrated. 4. Colonic diverticulosis. Mild wall thickening of the sigmoid colon with trace edema within the sigmoid mesocolon should be correlated clinically to exclude subtle acute diverticulitis. 5. No bowel obstruction. 6. Additional findings as above. I personally discussed with the radiologist and reviewed images L3-4 severe spinal stenosis minimal AP diameter 5mm L4-5 moderate spinal stenosis minimal AP diameter 6mm L5-S1 mild spinal stenosis minimal AP diameter 9mm
[2021-12-13] MEDS: INSULIN GLARGINE SOLOSTAR 100 UNITS/ML 3 ML PEN SC SCH ×2 (10:37→21:21)
[2021-12-13] MEDS: INSULIN ASPART PER UNIT SC SCH ×4 (10:40→21:16)
[2021-12-13] MEDS: MoRPHine SULFATE 2 MG/ML CARP IV PRN ×2 (12:53→21:39)
[2021-12-13] MEDS: allopurinoL 100 MG TAB PO SCH (12:56)
--- NOTE | 2021-12-13 15:04 | Hospitalist Progress Note ---
Date of Service December 13, 2021 Assessment & Plan (1) Back pain: (2) Lumbar radiculopathy: (3) Spinal stenosis: Plan: 86-year-old female with PMH DM II, CKD IV, HTN, HLD, nocturnal hypoxia on oxygen at bedtime, chronic diastolic heart failure, LBBB, chronic anemia, spinal stenosis, renal mass, h/o diverticulitis followed by c-diff presented to ER with complaint of chronic right back and leg pain, however worse past 2 days. No acute trauma Follows with Dr Vinson for spinal injections, next injection scheduled in the beginning of December 2021. Pain management recommendations noted Lyrica was added by Pain management Will monitor Fall precautions Patient uses walker at baseline Continue lidocaine patch and tylenol Diverticulosis CT abdomen pelvis: Colonic diverticulosis. Mild wall thickening of the sigmoid colon with trace edema within the sigmoid mesocolon should be correlated clinically to exclude subtle acute diverticulitis. No diverticulitis clinically Patient reports constipation Relistor ordered by Pain management Bowel regimen DM II A1c: 6.1 on 11/17/2021 Hold home Humulin 70/30 Basal bolus insulin per protocol Chronic diastolic heart failure Patient reports abdominal fullness, has been taking Lasix as needed instead of daily. otherwise does not appear grossly overloaded Continue oral Lasix daily Monitor I's and O's CKD IV Cr: 2.12. Baseline Cr: ~2.3 Follows with [facility] nephrology Monitor renal functions HTN Continue hydralazine, carvedilol, Lasix Left renal mass Patient with known left renal mass and is following with urology who is monitoring No significant changes were noted on CT abdomen pelvis Nocturnal Hypoxia Continue 2L oxygen HS GERD Continue H2 ada Gout Continue allopurinol DVT Prophylaxis Heparin SQ Full Code as per discussion with pt Follows with Dr Ramirez for routine care Admission and Anticipated Discharge Date Admission Date: December 12, 2021 Subjective Patient seen and examined Still reports significant low back pain radiating to the legs Reports abd is full Reports constipation Denied dysuria, urgency, hematuria. Denied freq today Denied cough, SOB, chest pain Physical Exam Constitutional: + well hydrated and + obese; no acute distress Eyes: PERRL, conjunctivae normal, anicteric sclerae ENMT: external ear and nose normal, oropharynx normal Respiratory: normal respiratory effort, lungs clear to auscultation Cardiovascular: RRR S1 S2 Gastrointestinal (Abdomen): normal bowel sounds, soft, nontender, no hepatosplenomegaly Musculoskeletal: No pedal edema Neurologic: PERRL, EOMI, accommodation nl, no face palsy, no dysarthria Psychiatric: A+Ox3, euthymic affect Results & Data Results & Data ([facility]) Vital Signs (Past 12 Hours) Vital Signs Temp Pulse Resp BP Pulse Ox 12/13/21 07:20 36.5 C 71 16 162/76 H 100 Laboratory Results Abnormal lab results 12/12/21 12/13/21 12/13/21 Range/Units 17:28 08:21 08:21 RBC 3.26 L (4.2-5.4) M/uL Hgb 9.9 L (12.0-16.0) g/dL Hct 31.4 L (37-47) % MCHC 31.5 L (32-36) g/dL RDW Std Deviation 54.1 H (36.4-46.3) fL RDW Coeff of Noemy 15.3 H (11.5-14.5) % BUN 37 H (6-23) mg/dl Creatinine 2.12 H (0.6-1.2) mg/dl Glucose 157 H (70-99(Fasting)) mg/dl POC Glucose 100 H (70-99) mg/dl 12/13/21 12/13/21 Range/Units 10:34 12:05 RBC (4.2-5.4) M/uL Hgb (12.0-16.0) g/dL Hct (37-47) % MCHC (32-36) g/dL RDW Std Deviation (36.4-46.3) fL RDW Coeff of Noemy (11.5-14.5) % BUN (6-23) mg/dl Creatinine (0.6-1.2) mg/dl Glucose (70-99(Fasting)) mg/dl POC Glucose 195 H 190 H (70-99) mg/dl (1) Spinal stenosis Spinal region: unspecified Qualified Code(s): M48.00 - Spinal stenosis, site unspecified
[2021-12-13] MEDS: POLYETHYLENE (MIRALAX) 17 GM PACK PO SCH (15:24)
[2021-12-13] MEDS: FAMOTIDINE 20 MG TAB PO SCH (17:19)
[2021-12-13] MEDS: ROSUVASTATIN CALCIUM 10 MG TAB PO SCH (22:30)
[2021-12-14] MEDS: ISOSORBIDE DINITRATE 20 MG TAB PO SCH ×3 (06:30→18:33)
[2021-12-14] MEDS: HEPARIN SOD 5,000 UNIT/0.5 ML VIAL SQ SCH ×3 (06:30→21:21)
[2021-12-14] MEDS: LIDOCAINE 5% 1 PATCH TD SCH (07:30)
[2021-12-14 07:38] LABS: Calcium 9.7 mg/dl (8.5-10.1); Creatinine Clr Calc Pharmacy 20.2 ml/min; Est GFR (African American) 21.9 ml/min; Est GFR (Non-African American) 18.9 ml/min; Potassium 3.9 mmol/L (3.5-5.1)
--- NOTE | 2021-12-14 08:22 | Pain Management Progress Note ---
Date of Service December 14, 2021 Assessment & Plan (1) Lumbar radiculopathy: (2) Spinal stenosis: Spinal region: unspecified Qualified Code(s): M48.00 - Spinal stenosis, site unspecified (3) Constipation: Plan: 1. Recommend maintaining pregabalin at 25 mg twice daily. She can discuss titration in the outpatient setting with Dr. Vinson. 2. Patient will maintain planned JIE with Dr. Vinson in December for treatment of her chronic low back and lower extremity radicular pain. 3. Patient will continue with IV morphine and as needed tramadol for breakthrough pain as needed. She was encouraged to rely on tramadol initially and reserve IV morphine for pain not well controlled with tramadol. 4. Patient was provided Relistor this morning for constipation. Expectations were discussed at length with the patient and she verbalized understanding. Pain service will sign off on patient at this time. Please contact us for further evaluation during her inpatient stay as needed. Thank you for allowing us to participate in the care of this patient. Admission and Anticipated Discharge Date Admission Date: December 12, 2021 Subjective Mrs. Rollins is an 86-year-old white female with multiple comorbid medical conditions and a longstanding history of lumbar spinal canal stenosis who was admitted due to acute on chronic low back pain which is bilateral and equal traveling in bilateral lower extremities to the ankles. Patient reports her pain typically occurs with standing and ambulatory activity but has recently been while sitting or supine. She reports improved pain control over the past 12 hours. She indicates her current pain is minimal at a 2-3/10. She is reporting benefit from use of IV morphine and tramadol, but is experiencing cons tipation. She did have a dose of Relistor approximately 10-15 minutes ago. She has some abdominal fullness and discomfort in the right greater than left lower quadrant. Patient was initiated on pregabalin 25 mg twice daily yesterday. She indicates she is tolerating the medication without notable side effects. She remains planned for outpatient epidural steroid injection with Dr. Vinson in [place]. Patient reports no further constitutional complaints at this time. Plan of care discussed with Dr. Yasmine Urban. Pain Assessment Pain Assessment Full Body Front + Back: 1. Axial low back pain bilateral and equal 2. Left lower extremity radicular pain to the ankle-L5 and S1 distribution 3. Right lower extremity radicular pain to the ankle-L5 and S1 distribution Physical Exam Physical Exam: General: Patient was lying quietly upon entering the room in no acute distress. Speech and thought process appropriate. Mood and affect appropriate. Cognition intact. Abdomen: Soft and nondistended. No rebound or guarding. No organomegaly. Back/spine some generalized tenderness over the lumbosacral region which is nonfocal. Lower extremities: Strength testing 5/5 with dorsiflexion, plantarflexion, EHL testing and hip flexion/extension. Sensation intact. No appreciable edema. Neurologic: Cranial nerves grossly intact and ambulation not witnessed.
[2021-12-14] MEDS: INSULIN GLARGINE SOLOSTAR 100 UNITS/ML 3 ML PEN SC SCH ×2 (09:05→21:23)
[2021-12-14] MEDS: INSULIN ASPART PER UNIT SC SCH ×4 (09:10→21:23)
[2021-12-14] MEDS: hydrALAZINE TAB 50 MG TAB PO SCH ×3 (09:15→21:22)
[2021-12-14] MEDS: ACETAMINOPHEN 500 MG TAB PO SCH ×2 (09:16→21:22)
[2021-12-14] MEDS: FUROSEMIDE 40 MG TAB PO SCH (09:16)
[2021-12-14] MEDS: POLYETHYLENE (MIRALAX) 17 GM PACK PO SCH ×3 (09:16→21:23)
[2021-12-14] MEDS: SIMETHICONE 80 MG CHEW PO PRN (09:16)
[2021-12-14] MEDS: CYANOCOBALAMIN (B-12) 500 MCG TABLET PO SCH (09:16)
[2021-12-14] MEDS: ASPIRIN 81 MG ECTAB PO SCH (09:17)
[2021-12-14] MEDS: DOCUSATE SODIUM 100 MG CAP PO SCH ×2 (09:17→21:22)
[2021-12-14] MEDS: SACCHAROMYCES BOULARDII 250 MG CAP PO SCH (09:17)
[2021-12-14] MEDS: PREGABALIN 25 MG CAP PO SCH ×2 (09:17→21:29)
[2021-12-14] MEDS: carvediloL 25 MG TAB PO SCH ×2 (09:17→21:22)
[2021-12-14] MEDS: CALCITRIOL 0.25 MCG CAPSULE PO SCH (09:17)
[2021-12-14] MEDS: NYSTATIN OINT 15 GM TUBE EXT SCH ×2 (09:22→21:21)
[2021-12-14] MEDS: allopurinoL 100 MG TAB PO SCH (14:56)
[2021-12-14] MEDS ORDERED: GLYCERIN ADULT 12 SUPP/BOX SUPP PR ONE (16:48)
--- NOTE | 2021-12-14 16:50 | Hospitalist Progress Note ---
Date of Service December 14, 2021 Assessment & Plan (1) Back pain: (2) Lumbar radiculopathy: (3) Spinal stenosis: Plan: 86-year-old female with PMH DM II, CKD IV, HTN, HLD, nocturnal hypoxia on oxygen at bedtime, chronic diastolic heart failure, LBBB, chronic anemia, spinal stenosis, renal mass, h/o diverticulitis followed by c-diff presented to ER with complaint of chronic right back and leg pain, however worse past 2 days. No acute trauma Follows with Dr Vinson for spinal injections, next injection scheduled in the beginning of December 2021. Pain management consulted Lyrica 25 mg twice daily started IV morphine and tramadol for breakthrough pain Continue lidocaine patch and scheduled Tylenol Patient adamantly refusing MRI due to claustrophobia Diverticulosis CT abdomen pelvis: Colonic diverticulosis. Mild wall thickening of the sigmoid colon with trace edema within the sigmoid mesocolon should be correlated clinically to exclude subtle acute diverticulitis. No diverticulitis clinically Constipation Received Relistor on 12/14 AM -no BM yet Increase MiraLAX to twice daily, continue twice daily stool softener Glycerin suppository x 1 DM II A1c: 6.1 on 11/17/2021 Hold home Humulin 70/30 Basal bolus insulin per protocol Chronic diastolic heart failure Appears euvolemic Continue oral Lasix daily Monitor I's and O's CKD IV Cr: 2.12. Baseline Cr: ~2.3 Follows with [facility] [place] nephrology Creatinine remains at baseline Monitor renal functions HTN BP controlled, continue hydralazine, carvedilol, Lasix Left renal mass Patient with known left renal mass and is following with urology who is monitoring No significant changes were noted on CT abdomen pelvis Nocturnal Hypoxia Continue 2L oxygen HS GERD Continue H2 ada Gout Continue allopurinol DVT Prophylaxis Heparin SQ Dispo: PT/OT recommending discharge home. Likely discharge home in the next 1 to 2 days once constipation resolved and pain controlled. Admission and Anticipated Discharge Date Admission Date: December 12, 2021 Supervising Physician Co-Signing Physician Notes Patient seen and examined. Continues reports severe low back pain radiating to the legs. States that pain is mildly improved compared to admission. Patient reporting constipation. Passing flatus. Denies nausea, vomiting or abdominal pain. Exam is notable for elderly obese woman in no obvious distress, unremarkable abdominal examination. Labs notable for creatinine of 2.26. Worsening of chronic low back pain, lumbar radiculopathy. Pain management recommendation appreciated We will continue Lupron discharge. Patient to follow-up with management outpatient. Continue bowel regimen to ensure bowel movement. PT/OT evaluation today noted. Plan to discharge home in the next 24h Agree with other plans as detailed by Ghazala CHAMPAGNE Subjective Patient seen and examined. Follow-up for intractable back pain and constipation. Patient reports some improvement in left leg radicular back pain, right leg and hip pain continues. Had a very small, hard BM this morning. Recently received Relistor. States abdomen feels full however denies abdominal pain, nausea, vomiting. No chest pain or shortness of breath. Review of Systems Review of Systems: ROS per HPI, all other systems reviewed and negative Physical Exam Constitutional: WD/WN, vitals as above Respiratory: normal respiratory effort, lungs clear to auscultation Cardiovascular: Rate/Rhythm: regular rate and regular rhythm Vessels: normal peripheral pulses Extremities: no edema Gastrointestinal (Abdomen): Percussion/Palpation: abdomen soft; abdomen nontender Skin: no rashes, warm and dry Neurologic: no focal motor deficits Psychiatric: A+Ox3, euthymic affect Results & Data Results & Data ([facility]) Vital Signs (Past 12 Hours) Vital Signs Temp Pulse Resp BP Pulse Ox 12/14/21 14:30 92 12/14/21 14:24 36.6 C 75 16 115/62 90 12/14/21 07:38 36.5 C 62 16 134/50 L 97 Laboratory Results [facility] 12/14/21 06:38 Sodium 137 Potassium 3.9 Chloride 100 Carbon Dioxide 31 BUN 43 H Creatinine 2.26 H Glucose 143 H Calcium 9.7 (1) Spinal stenosis Spinal region: unspecified Qualified Code(s): M48.00 - Spinal stenosis, site unspecified
[2021-12-14] MEDS: FAMOTIDINE 20 MG TAB PO SCH (18:33)
[2021-12-14] MEDS: ROSUVASTATIN CALCIUM 10 MG TAB PO SCH (21:22)
[2021-12-15] MEDS: HEPARIN SOD 5,000 UNIT/0.5 ML VIAL SQ SCH ×3 (05:24→21:19)
[2021-12-15] MEDS: traMADol HCL 50 MG TABLET PO PRN ×2 (05:29→21:13)
[2021-12-15] MEDS: ACETAMINOPHEN 325 MG TAB PO PRN (05:30)
[2021-12-15] MEDS: ISOSORBIDE DINITRATE 20 MG TAB PO SCH ×3 (06:34→18:23)
[2021-12-15 08:47] LABS: Calcium 9.7 mg/dl (8.5-10.1); Creatinine Clr Calc Pharmacy 19.9 ml/min; Est GFR (African American) 21.5 ml/min; Est GFR (Non-African American) 18.6 ml/min; Potassium 3.9 mmol/L (3.5-5.1)
[2021-12-15] MEDS: hydrALAZINE TAB 50 MG TAB PO SCH ×3 (09:11→21:16)
[2021-12-15] MEDS: FUROSEMIDE 40 MG TAB PO SCH (09:11)
[2021-12-15] MEDS: SACCHAROMYCES BOULARDII 250 MG CAP PO SCH (09:12)
[2021-12-15] MEDS: CYANOCOBALAMIN (B-12) 500 MCG TABLET PO SCH (09:12)
[2021-12-15] MEDS: carvediloL 25 MG TAB PO SCH ×2 (09:12→21:16)
[2021-12-15] MEDS: ASPIRIN 81 MG ECTAB PO SCH (09:12)
[2021-12-15] MEDS: CALCITRIOL 0.25 MCG CAPSULE PO SCH (09:13)
[2021-12-15] MEDS: ACETAMINOPHEN 500 MG TAB PO SCH ×2 (09:13→21:15)
[2021-12-15] MEDS: DOCUSATE SODIUM 100 MG CAP PO SCH (09:13)
[2021-12-15] MEDS: POLYETHYLENE (MIRALAX) 17 GM PACK PO SCH (09:14)
[2021-12-15] MEDS: LIDOCAINE 5% 1 PATCH TD SCH (09:14)
[2021-12-15] MEDS: NYSTATIN OINT 15 GM TUBE EXT SCH ×2 (09:15→21:13)
[2021-12-15] MEDS: DICLOFENAC SOD 1% GEL 100 GM TUBE EXT PRN (09:15)
[2021-12-15] MEDS: INSULIN ASPART PER UNIT SC SCH ×4 (09:16→21:28)
[2021-12-15] MEDS: INSULIN GLARGINE SOLOSTAR 100 UNITS/ML 3 ML PEN SC SCH ×2 (09:16→21:29)
[2021-12-15] MEDS: PREGABALIN 25 MG CAP PO SCH ×2 (09:36→21:13)
--- NOTE | 2021-12-15 12:28 | XRay Report ---
[facility] CLINICAL HISTORY: Constipation. COMPARISON STUDY: CT of the abdomen and pelvis October 11, 2022. FINDINGS: Incidental note is made of cholecystectomy clips. There is no evidence for a bowel obstruct ion. Amount of stool within the colon and rectum is within normal limits. IMPRESSION: 1. No evidence for a bowel obstruction. 2. Unremarkable amount of stool within the colon and rectum. ACT 112: Negative or not required by law. Electronically signed by: Chai Morales M.D. 12/15/2021 12:26 PM
[2021-12-15] MEDS: allopurinoL 100 MG TAB PO SCH (12:39)
--- NOTE | 2021-12-15 16:19 | Hospitalist Progress Note ---
Date of Service December 15, 2021 Assessment & Plan (1) Lumbar radiculopathy: (2) Spinal stenosis: Plan: 86-year-old female with PMH DM II, CKD IV, HTN, HLD, nocturnal hypoxia on oxygen at bedtime, chronic diastolic heart failure, LBBB, chronic anemia, spinal stenos is, renal mass, h/o diverticulitis followed by c-diff presented to ER with complaint of chronic right back and leg pain, however worse past 2 days. No acute trauma Pain management consulted Lyrica 25 mg twice daily started IV morphine and tramadol for breakthrough pain Continue lidocaine patch and scheduled Tylenol Patient adamantly refusing MRI due to claustrophobia Follows with Dr Vinson for spinal injections, next injection scheduled in the beginning of December 2021. Diverticulosis CT abdomen pelvis: Colonic diverticulosis. Mild wall thickening of the sigmoid colon with trace edema within the sigmoid mesocolon should be correlated clinically to exclude subtle acute diverticulitis. No diverticulitis clinically Constipation Received Relistor on 12/14 AM, MiraLAX increased to twice daily, on twice daily stool softener - having BMs however loose No significant stool burden noted on ABD XR Hold bowel regimen, trial Metamucil DM II A1c: 6.1 on 11/17/2021 Hold home Humulin 70/30 Basal bolus insulin per protocol Chronic diastolic heart failure Appears euvolemic Continue oral Lasix daily Monitor I's and O's CKD IV Cr: 2.29. Baseline Cr: ~2.3 Follows with [facility] [place] Creatinine remains at baseline Monitor renal functions HTN BP controlled, continue hydralazine, carvedilol, Lasix Left renal mass Patient with known left renal mass and is following with urology who is monitoring No significant changes were noted on CT abdomen pelvis Nocturnal Hypoxia Continue 2L oxygen HS GERD Continue H2 ada Gout Continue allopurinol DVT Prophylaxis Heparin SQ Dispo: PT/OT recommending discharge home. Likely discharge home tomorrow. Admission and Anticipated Discharge Date Admission Date: December 12, 2021 Supervising Physician Co-Signing Physician Notes Patient is seen and examined at bedside. Continues to complain of back pain radiating to right lower extremity. Had loose BM today. Denies any nausea, vomiting, abdominal pain, chest pain, shortness of breath. Offers no other complaints. On exam patient is obese, no apparent distress, normocephalic atraumatic, EOMI, normal breath sounds, mild basal crackles, S1-S2, no murmur, no pedal edema, abdomen soft, nontender, normal bowel sounds, alert, awake, oriented, grossly no focal deficits. Patient is being managed for spinal stenosis with lumbar radiculopathy. Continue pain management. Patient refused MRI due to claustrophobia. Needs spinal injections by Dr. Vinson which are scheduled. Continue bowel regimen as needed. Pain control. I personally review ed the record. Patient is interviewed and examined at bedside. Patient's care is coordinated with Ghazala Alvarado [employer]. Please refer to the documentation above for details of patient's presentation and for discussion of other issues. Subjective Patient seen and examined. Follow-up for intractable back pain. Patient reports continued improvement in left leg radicular back pain, right leg and hip pain continues. States that she slept on her right side last night and feels this may have exacerbated her pain. Having bowel movements however loose. No abdominal pain or nausea. No chest pain or shortness of breath. Review of Systems Review of Systems: ROS per HPI, all other systems reviewed and negative Physical Exam Constitutional: WD/WN, vitals as above + obese Respiratory: normal respiratory effort, lungs clear to auscultation Cardiovascular: Rate/Rhythm: regular rate and regular rhythm Vessels: normal peripheral pulses Extremities: no edema Gastrointestinal (Abdomen): Percussion/Palpation: abdomen soft; abdomen nontender Skin: no rashes, warm and dry Neurologic: no focal motor deficits Psychiatric: A+Ox3, euthymic affect Results & Data Results & Data ([facility]) Vital Signs (Past 12 Hours) Vital Signs Temp Pulse Resp BP Pulse Ox 12/15/21 15:36 36.5 C 64 16 147/54 H 93 12/15/21 12:00 68 135/63 96 12/15/21 07:21 36.5 C 70 16 130/66 98 (1) Spinal stenosis Spinal region: unspecified Qualified Code(s): M48.00 - Spinal stenosis, site unspecified
[2021-12-15] MEDS: FAMOTIDINE 20 MG TAB PO SCH (18:23)
[2021-12-15] MEDS: PSYLLIUM 58.6% POWDER PACKET PO SCH (18:24)
[2021-12-15] MEDS: ROSUVASTATIN CALCIUM 10 MG TAB PO SCH (21:18)
[2021-12-16] MEDS: HEPARIN SOD 5,000 UNIT/0.5 ML VIAL SQ SCH ×3 (06:02→21:00)
[2021-12-16] MEDS: ACETAMINOPHEN 325 MG TAB PO PRN (06:02)
[2021-12-16] MEDS: ISOSORBIDE DINITRATE 20 MG TAB PO SCH ×3 (06:03→17:22)
[2021-12-16] MEDS: hydrALAZINE TAB 50 MG TAB PO SCH ×3 (08:22→20:59)
[2021-12-16] MEDS: carvediloL 25 MG TAB PO SCH ×2 (08:23→20:57)
[2021-12-16] MEDS: ASPIRIN 81 MG ECTAB PO SCH (08:23)
[2021-12-16] MEDS: CALCITRIOL 0.25 MCG CAPSULE PO SCH (08:23)
[2021-12-16] MEDS: CYANOCOBALAMIN (B-12) 500 MCG TABLET PO SCH (08:23)
[2021-12-16] MEDS: SACCHAROMYCES BOULARDII 250 MG CAP PO SCH (08:23)
[2021-12-16] MEDS: FUROSEMIDE 40 MG TAB PO SCH (08:24)
[2021-12-16] MEDS: LIDOCAINE 5% 1 PATCH TD SCH (08:24)
[2021-12-16] MEDS: ACETAMINOPHEN 500 MG TAB PO SCH ×2 (08:25→20:58)
[2021-12-16] MEDS: PSYLLIUM 58.6% POWDER PACKET PO SCH (08:26)
[2021-12-16] MEDS: NYSTATIN OINT 15 GM TUBE EXT SCH ×2 (08:30→21:08)
[2021-12-16] MEDS: PREGABALIN 25 MG CAP PO SCH ×2 (08:30→20:57)
[2021-12-16] MEDS: INSULIN GLARGINE SOLOSTAR 100 UNITS/ML 3 ML PEN SC SCH ×2 (08:35→20:56)
[2021-12-16] MEDS: INSULIN ASPART PER UNIT SC SCH ×4 (08:36→20:57)
[2021-12-16] MEDS: allopurinoL 100 MG TAB PO SCH (12:21)
--- NOTE | 2021-12-16 13:59 | Hospitalist Progress Note ---
Date of Service December 16, 2021 Assessment & Plan (1) Lumbar radiculopathy: (2) Spinal stenosis: Plan: This is an 86-year-old female with PMH DM II, CKD IV, HTN, HLD, nocturnal hypoxia on oxygen at bedtime, chronic diastolic heart failure, LBBB, chronic anemia, spinal stenosis, renal mass, h/o diverticulitis followed by c-diff presented to ER with complaint of chronic right back and leg pain, however worse past 2 days. No acute trauma Pain management consulted Lyrica 25 mg twice daily started IV morphine and tramadol for breakthrough pain Continue lidocaine patch and scheduled Tylenol Patient adamantly refusing MRI due to claustrophobia Follows with Dr Vinson for spinal injections, next injection scheduled in the beginning of December 2021 Ambulates independently with walker Diverticulosis CT abdomen pelvis: Colonic diverticulosis. Mild wall thickening of the sigmoid colon with trace edema within the sigmoid mesocolon should be correlated clinically to exclude subtle acute diverticulitis Evaluated by GI on 12/12/21- No diverticulitis clinically. Started on Miralax, diet as tolerated, no indication for abx at that time Worsened R sided abdominal pain today with feeling of fullness - discussed starting abx for possible diverticulitis but patient requesting re-eval by GI prior to starting regimen. GI to see this afternoon Constipation Received Relistor on 12/14 AM, MiraLAX increased to twice daily, on twice daily stool softener - having BMs however loose No significant stool burden noted on ABD XR Hold bowel regimen, trial Metamucil DM II A1c: 6.1 on 11/17/2021 Hold home Humulin 70/30 Basal bolus insulin per protocol Chronic diastolic heart failure Appears euvolemic Continue oral Lasix daily Monitor I's and O's CKD IV Cr: 2.29. Baseline Cr: ~2.3 Follows with [facility] nephrology Creatinine remains at baseline Monitor renal functions HTN BP controlled, continue hydralazine, carvedilol, Lasix Left renal mass Patient with known left renal mass and is following with urology who is monitoring No significant changes were noted on CT abdomen pelvis Nocturnal Hypoxia Continue 2L oxygen HS GERD Continue H2 ada Gout Continue allopurinol DVT Prophylaxis Heparin SQ Dispo: PT/OT recommending discharge home. Admission and Anticipated Discharge Date Admission Date: December 12, 2021 Supervising Physician Co-Signing Physician Notes Patient is seen and examined at bedside. Patient complains of right lower quadrant abdominal discomfort today. No significant back pain today. Discussed with GI today. Denies any nausea, vomiting, abdominal pain, chest pain, shortness of breath. Offers no other complaints. On exam patient is obese, no apparent distress, normocephalic atraumatic, EOMI, normal breath sounds, mild basal crackles, S1-S2, no murmur, no pedal edema, abdomen soft, nontender, normal bowel sounds, alert, awake, oriented, grossly no focal deficits. Patient is being managed for spinal stenosis with lumbar radiculopathy. Continue pain management. Patient refused MRI due to claustrophobia. Needs spinal injections by Dr. Vinson which are scheduled. Continue bowel regimen as needed. Pain control. I personally reviewed the record. Patient is interviewed and examined at bedside. Patient's care is coordinated with Tatyana Valencia PA-C. Please refer to the documentation above for details of patient's presentation and for discussion of other issues. Subjective Patient seen and examined in 357-2 in follow-up for intractable back pain. Still experiencing R hip pain but ambulating with walker, tolerating medication regimen. Notes increased abdominal pain and "fullness" in RUQ and RLQ today than previously. Endorsing nausea but no vomiting. Still tolerating diet. No F/C, CP, SOB, dysuria, diarrhea. Had small bowel movement this morning. Review of Systems Review of Systems: At least ten systems reviewed and negative except as noted in the HPI. Physical Exam Physical Exam: Gen: WD/WN, NAD, lying in bed, A&Ox3 HEENT: Normocephalic, atraumatic, conjunctivae moist, sclerae anicteric, mucous membranes moist Lung: Clear to Auscultation bilaterally, no wheezes/rales/rhonchi Heart: Regular rate, regular rhythm, no murmurs, rubs, or gallops Abdomen: Soft, TTP RUQ and RLQ, ND +BS x 4 Extremities: no edema Skin: Warm, no rash Results & Data Results & Data ([facility]) Vital Signs (Past 12 Hours) Vital Signs Temp Pulse Resp BP Pulse Ox 12/16/21 07:26 36.5 C 64 16 160/69 H 100 (1) Spinal stenosis Spinal region: unspecified Qualified Code(s): M48.00 - Spinal stenosis, site unspecified
--- NOTE | 2021-12-16 14:13 | Gastroenterology Progress Note ---
Date of Service December 16, 2021 Assessment & Plan (1) RLQ abdominal pain: Plan: See below (2) Lumbar radiculopathy: Plan: See below (3) Abnormal CT scan: Plan: Would agree with Dr. Prajapati, that there is insufficient evidence for diverticulitis and with her hx of C-diff, would avoid using the antibiotics. Though she initially guarded with palpation over the entire abdomen, on repeat exam did not, thus low suspicion for a new GI issue such as new diverticulitis or colitis (also, CT did not show any such abnormalities 3 days ago). She has responded to laxatives with 2 loose BMs/day, so do not suspect new C- diff. Plan: Suspect her RLQ pain part of the pain from the lumbar radiculopathy as it is not related to eating/defecation and has been present in the past with worsened radiculopathy pain. She also believes that it may be related to the [facility] ed. Admission and Anticipated Discharge Date Admission Date: December 12, 2021 Supervising Physician Co-Signing Physician Notes Attending attestation I have seen, examined this patient, and agree with the findings and above by our mid-level provider MAHI Alfaro, with the following additions: pain is seemingly eminating from back with radiation down legs, no intra- abdominal component Subjective Today, pt reports increasing abd discomfort. We were asked to see this pt and provide an opinion on need for antibiotics. Presented on 12/12 with abd pain. Consult completed by Dr. Prajapati as he was installation & maintenance executive for [employer] over the weekend. CT findings written as diverticulosis, subtle inflammation, can not r/o diverticulitis. At that time, he recommended against antibiotics and tx for constipation, now passing about 2 loose BMs/day, no blood. C/o RLQ pain. On exam, though she initially had voluntary guarding on the entire abdomen, this was not reproducible and on repeat had focal tenderness in the extreme RLQ/groin area. She tells us that this area is always painful when she has the lumbar back and leg pain. This RLQ pain has been present previously prior to back injections and improves after. She carries a hx of C-diff. Has not had fevers. No leukocytosis. LFTs, lipase normal on arrival. Review of Systems Review of Systems: ROS: Gen: Denies weakness, fevers, weight loss Eyes: No eye redness, or pain, no recent vision changes Resp: No SOB, no cough Cardio: No palpitations/irregular beats, no chest pain GI: As per HPI, otherwise (-) : Denies pain on urination Skin: No jaundice, itching or new rashes Physical Exam Constitutional: well developed, + morbidly obese and cooperative Eyes: PERRL, conjunctivae normal, anicteric sclerae ENMT: external ear and nose normal, oropharynx normal Neck: trachea midline, no thyromegaly Respiratory: normal respiratory effort, lungs clear to auscultation Cardiovascular: RRR, no murmur, no edema Gastrointestinal (Abdomen): Inspection/Auscultation: abdomen normal to inspection and normal bowel sounds; abdomen not distended and no abdominal edema Percussion/Palpation: + abdomen tender (point tenderness in the extreme RLQ/groin area), + guarding (she initially had voluntary guarding in reaction to palpation in every area) and abdomen soft; abdomen not rigid Skin: no rashes, warm and dry normal turgor Neurologic: PERRL, EOMI, accommodation nl, no face palsy, no dysarthria awake; not confused Psychiatric: A+Ox3, euthymic affect Orientation: cooperative Results & Data ([facility]) Vital Signs (Past 12 Hours) Vital Signs Temp Pulse Resp BP Pulse Ox 12/16/21 07:26 36.5 C 64 16 160/69 H 100 Laboratory Results WBC 6, Hb 9.7, Hct 29.5, Plts 258, Na 138, K 3.7, BUN 49, Cr 2.2 Diagnostic Findings CTA 12/12/21: 1. Left parapelvic hyperdense renal cyst has mildly increased in size from 06/18/2021 and now results in mild hydronephrosis of the superior pole left kidney. 2. No renal or ureteral calculi. 3. Severe cortical atrophy of the kidneys redemonstrated. 4. Colonic diverticulosis. Mild wall thickening of the sigmoid colon with trace edema within the sigmoid mesocolon should be correlated clinically to exclude subtle acute diverticulitis. 5. No bowel obstruction. 6. Additional findings as above.
[2021-12-16 14:33] LABS: Hematocrit (blood only) 29.5 % (37-47); Hemoglobin 9.7 g/dL (12.0-16.0); Mean Corpuscular Hgb Conc 32.9 g/dL (32-36); Mean Corpuscular Volume 94.2 fL (80-100); Mean Platelet Volume 8.7 fL (7.4-10.4); Platelet Count 258 K/uL (130-400); RDW Coefficient of Variation 15.1 % (11.5-14.5); RDW Standard Deviation 51.5 fL (36.4-46.3); Red Blood Count 3.13 M/uL (4.2-5.4); White Blood Count 6.18 K/uL (4.8-10.8)
[2021-12-16 14:56] LABS: Albumin Globulin Ratio 1.9 (0.9-2); Albumin Level 3.7 gm/dl (3.4-5.0); BUN Creatinine Ratio 22.3 (10-20); Bilirubin,Total 0.7 mg/dl (0.2-1.0); Creatinine Clr Calc Pharmacy 20.8 ml/min; Est GFR (African American) 22.6 ml/min; Est GFR (Non-African American) 19.5 ml/min; Potassium 3.7 mmol/L (3.5-5.1); Total Protein 5.7 gm/dl (6.0-8.3)
[2021-12-16] MEDS: FAMOTIDINE 20 MG TAB PO SCH (17:22)
[2021-12-16] MEDS: SIMETHICONE 80 MG CHEW PO PRN (18:19)
[2021-12-16] MEDS: ROSUVASTATIN CALCIUM 10 MG TAB PO SCH (20:59)
[2021-12-16] MEDS: DICLOFENAC SOD 1% GEL 100 GM TUBE EXT PRN (21:09)
[2021-12-17] MEDS: traMADol HCL 50 MG TABLET PO PRN (05:51)
[2021-12-17] MEDS: DICLOFENAC SOD 1% GEL 100 GM TUBE EXT PRN (05:52)
[2021-12-17] MEDS: HEPARIN SOD 5,000 UNIT/0.5 ML VIAL SQ SCH (05:52)
[2021-12-17] MEDS: MoRPHine SULFATE 2 MG/ML CARP IV PRN (07:38)
[2021-12-17 07:48] LABS: Hematocrit (blood only) 34.2 % (37-47); Mean Corpuscular Hemoglobin 30.8 pg (25-34); Mean Corpuscular Hgb Conc 32.2 g/dL (32-36); Mean Corpuscular Volume 95.8 fL (80-100); Mean Platelet Volume 9.6 fL (7.4-10.4); Platelet Count 341 K/uL (130-400); RDW Coefficient of Variation 15.2 % (11.5-14.5); RDW Standard Deviation 53.3 fL (36.4-46.3); Red Blood Count 3.57 M/uL (4.2-5.4); White Blood Count 7.52 K/uL (4.8-10.8)
[2021-12-17] MEDS: ISOSORBIDE DINITRATE 20 MG TAB PO SCH ×2 (08:03→13:47)
[2021-12-17] MEDS: ACETAMINOPHEN 500 MG TAB PO SCH (08:05)
[2021-12-17] MEDS: CALCITRIOL 0.25 MCG CAPSULE PO SCH (08:06)
[2021-12-17] MEDS: ASPIRIN 81 MG ECTAB PO SCH (08:06)
[2021-12-17] MEDS: SACCHAROMYCES BOULARDII 250 MG CAP PO SCH (08:06)
[2021-12-17] MEDS: FUROSEMIDE 40 MG TAB PO SCH (08:06)
[2021-12-17] MEDS: hydrALAZINE TAB 50 MG TAB PO SCH ×2 (08:06→14:00)
[2021-12-17] MEDS: CYANOCOBALAMIN (B-12) 500 MCG TABLET PO SCH (08:07)
[2021-12-17] MEDS: PSYLLIUM 58.6% POWDER PACKET PO SCH (08:08)
[2021-12-17] MEDS: LIDOCAINE 5% 1 PATCH TD SCH (08:08)
[2021-12-17 08:10] LABS: BUN Creatinine Ratio 24.2 (10-20); Calcium 10.6 mg/dl (8.5-10.1); Creatinine Clr Calc Pharmacy 22.1 ml/min; Est GFR (African American) 24.3 ml/min; Potassium 3.8 mmol/L (3.5-5.1)
[2021-12-17] MEDS: NYSTATIN OINT 15 GM TUBE EXT SCH (08:10)
[2021-12-17] MEDS ORDERED: traMADol HCL 50 MG TABLET PO PRN (08:40)
[2021-12-17] MEDS: INSULIN ASPART PER UNIT SC SCH ×2 (08:42→13:49)
[2021-12-17] MEDS: INSULIN GLARGINE SOLOSTAR 100 UNITS/ML 3 ML PEN SC SCH (08:57)
[2021-12-17] MEDS: PREGABALIN 25 MG CAP PO SCH (09:00)
[2021-12-17] MEDS ORDERED: HYDROCODONE/ACETAMOPHEN 5/325MG TAB PO PRN (09:49)
[2021-12-17] MEDS ORDERED: POLYETHYLENE (MIRALAX) 17 GM PACK PO PRN (10:03)
[2021-12-17] MEDS: carvediloL 25 MG TAB PO SCH (10:40)
[2021-12-17] MEDS: SIMETHICONE 80 MG CHEW PO PRN (10:40)
[2021-12-17] MEDS ORDERED: methylPREDNISolone 4 MG TAB, 6 DAY TAPER PO SCH (13:15)
[2021-12-17] MEDS: allopurinoL 100 MG TAB PO SCH (13:47)
[2021-12-17] MEDS ORDERED: methylPREDNISolone 4 MG TAB PO SCH (14:00)
--- NOTE | 2021-12-17 14:12 | Discharge Summary ---
Date of Service December 17, 2021 Admission HPI Per Admitting Provider Patient is 86-year-old female with PMH DM II, CKD IV, HTN, HLD, nocturnal hypoxia on oxygen at bedtime, chronic diastolic heart failure, LBBB, chronic anemia, spinal stenosis, renal mass, h/o diverticulitis followed by c-diff presented to ER with complaint of right back and leg pain and flank pain. Patient reports chronic low back and right posterior hip pain with radiation down right posterior leg to knee then laterally down the leg to to foot. She reports following with Dr. Vinson for spinal injections, is scheduled to have repeat injection first week of December. Patient states 2 nights ago with right posterior hip pain with radiation down right leg which feels like her baseline pain however is more intense. She reports she often needs to sleep in recliner to help ease pain however that was not working, and cannot find a comfortable position to sleep in. She reports she had leftover tramadol and try taking 1 pill with some relief of pain. Reports following night increased pain again and tried tramadol in the middle the night without much relief. She reports pain is causing nausea. Denies any vomiting. She reports walker uses baseline secondary to pain that is worse with ambulation. Reports current neck urinary incontinence. Denies any loss of control of bowels or increase loss control of bladder. Denies extremity paresthesias. Denies fall or new injury. Patient reports chronic bilateral knee pain, reports right usually worse. Follows with Ortho and often gets injections to knees as well. Patient feels that she is having abdominal fullness for the past 2 weeks, feels a little more "full" to the right lower side. Patient states that she has been using Lasix 40 mg as needed for the past 2 weeks instead of daily as she thought that was the recommendations of her raised printer Dr. Childress. Per Dr. Childress's note: "continue Lasix 40 mg daily as needed and may take an additional 20 mg in the evening if needed." Last year patient with history of diverticulitis treated with Cipro and Flagyl, unfortunately developed C. difficile. Was treated with p.o. vancomycin and IV Flagyl. During the hospitalization patient had persistent nausea with question of possible secondary to IV Flagyl vs constipation induced nausea. Patient reports GI had instructed her if she ever has another episode of diverticulitis that they would want consulted prior to be placed on antibiotics. Patient denies any known fever. She reports twice in the middle the night woke up sweaty and checked her blood sugar and was 120. Patient reports if her blood sugars go below 150 she often gets nauseated and if they kill her and that she will have diaphoresis. Patient denies any other night sweats. She reports chronically cold. Last bowel movement yesterday. Patient states took prune juice today to help with her chronic constipation. Denies any diarrhea, melena, hematochezia, vomiting. Denies DAILEY, dizziness, syncope, vision changes, neck pain, CP, SOB, orthopnea, palpitations, cough, sore throat, choking, otalgia, rhinorrhea, increasing extremity weakness, hematuria, dysuria. Admission Exam Per Admitting Provider General: no distress, obese Head: normocephalic, atraumatic Eyes: PERRL, EOM's intact, conjunctiva non-injected, anicteric ENT: normal inspection external ears, nose, mucous membranes moist Neck: supple, trachea midline Lungs: clear, no respiratory distress, no wheezing/rhonchi/rales CV: RRR, no murmur, trace pretibial edema Abd: protuberant, normal BS, soft, no apparent tenderness to palpation Back: +tenderness to palpation right posterior hip/buttock, able to flex and extend bilateral legs with reproduced pain to hips, distal pulses palpable, sensation to light touch intact Ext: no cyanosis, no calf tenderness Neuro: A&O x 3, no focal deficits noted, normal affect Skin: warm, dry Principal Diagnosis Lumbar radiculopathy Discharge Exam Gen: WD/WN, NAD, lying in bed, A&Ox3 HEENT: Normocephalic, atraumatic, conjunctivae moist, sclerae anicteric, mucous membranes moist Lung: Clear to Auscultation bilaterally, no wheezes/rales/rhonchi Heart: Regular rate, regular rhythm, no murmurs, rubs, or gallops Abdomen: Soft, TTP RUQ and RLQ, ND +BS x 4 Extremities: no edema Skin: Warm, no rash Discharge Data Allergies Allergy/AdvReac Type Severity Reaction Status Date / Time No Known Allergies Allergy Verified 11/25/21 13:39 Consultations 12/12/21 09:55 ED Decision to Admit Stat 12/12/21 11:09 Consult Gastroenterology Routine 12/12/21 12:55 Consult Pain Management Routine Ordered Studies 12/12/21 08:27 CT abd pelvis wo con Stat Hospital Course (1) Lumbar radiculopathy: (2) Spinal stenosis: (3) RLQ abdominal pain: (4) DM (diabetes mellitus): (5) HTN (hypertension): (6) Hypoxia: (7) Obesity: (8) History of Clostridioides difficile colitis: (9) Nocturnal hypoxemia: (10) Chronic kidney disease (CKD), stage IV (severe): This is an 86-year-old female with PMH DM II, CKD IV, HTN, HLD, nocturnal hypoxia on oxygen at bedtime, chronic diastolic heart failure, LBBB, chronic anemia, spinal stenosis, renal mass, h/o diverticulitis followed by c-diff presented to ER with complaint of chronic right back and leg pain, however worse past 2 days. No acute trauma. Evaluated by pain management, who added Lyrica 25mg BID to regimen and continued lidocaine patch and tylenol. Patient adamantly refusing MRI due to claustrophobia. Follows with Dr Vinson for spinal injections, next injection scheduled on 12/23/21. Is able to ambulates independently with walker and therefore felt to be safe to return home with home health services. Concern for possible diverticulitis on initial imaging but not clinically consistent with diverticulitis. RLQ pain felt to be referred pain from R hip. For continued pain, pain mgmt also recommended PRN [place] with bowel regimen as well as short course of Medrol steroid until next spinal injection. Discussed plan with patient and daughter over phone at time of discharge. Hemodynamically stable for return home. Total Time Total Time Spent Total Time Spent (In Minutes): 60 Discharge Plan Discharge Items Patient Disposition: Home - Home Health Services Reason For Visit: FLANK PAIN Discharge Diagnosis: Lumbar radiculopathy Condition on Discharge: Fair Activity: Resume your previous activity Non-emergency contact: Primary Care Provider Call non-emergency contact if: you have any medication questions, your symptoms worsen, your pain is concerning for you and you have a fever Follow-up/Referrals: Fox Ramirez MD [Primary Care Provider] - (Date & Time 12/20/2021 2:20 PM Provider Fox Ramirez MD Department Family Practice, [place] ) Diet: Carb Consistent or DM2 and Heart Healthy Addtl Attending Provider Instructions: You were admitted for chronic back and right hip pain and were evaluated by pain management during admission with medication changes as below. MEDICATION CHANGES: Continue Lyrica 25mg twice daily Take [place] (Hydrocodone/Acetaminophen) 5/325mg Tablet every 8 hours as needed for severe pain Continue Methylprednisolone 4mg daily for the next 5 days Continue bowel regimen at home with Senokot. Can also take Miralax up to twice daily as needed for constipation RECOMMENDATIONS FOR FOLLOW-UP: Hospital follow up appointment scheduled with Dr. Ramirez on 12/20/2021 at 2:20pm. Follow up with Dr. Vinson at [facility] orthopedics clinic in [place] next 12/23/21 for scheduled injection. Home health is being set up for you and will stop by your house this coming Monday. Please continue to ambulate with walker to aid with chronic back/hip pain as well as move bowels. OTHER INSTRUCTIONS: Seek medical attention if you have: * temperature above 101 * chest pain or trouble breathing * abdominal pain, nausea, vomiting * diarrhea, dark stools or bloody stools * any unanswered questions or concerns Call 911 if symptoms are severe. Please take good care of yourself. Call if you have any questions or problems. You can reach a [facility] hospitalist on duty at [facility] 24 hours a day by calling [phone]. [facility] 12/20/2021 2:20 PM Provider Fox Ramirez MD Department Pending Studies at Discharge: No Stand-Alone Forms: My [facility], Opioid Pain Management, Smoking Cessation Medications and DC Order Prescriptions: New polyethylene glycol 3350 [Miralax] 17 gram Powder In Packet 17 g PO BID PRN (Reason: constipation) Qty: 14 RF: 0 hydrocodone-acetaminophen 5-325 mg Tablet 1 tab PO Q8H PRN (Reason: pain) Qty: 12 RF: 0 pregabalin [Lyrica] 25 mg Capsule 25 mg PO BID Qty: 60 RF: 0 methylprednisolone 4 mg tablet 4 mg PO DAILY Qty: 5 RF: 0 Continued calcitriol 0.25 mcg capsule 0.25 mcg PO DAILY Qty: 90 RF: 3 ondansetron 4 mg tablet,disintegrating 4 mg PO Q6H PRN (Reason: nausea and vomiting) Qty: 14 RF: 0 lidocaine [Salonpas (lidocaine)] 4 % Adhesive Patch,Medicated 1 patch TOPICAL QAM RF: 0 aspirin 81 mg Tablet,Delayed Release (Dr/Ec) 81 mg PO QAM RF: 0 isosorbide dinitrate 20 mg tablet 20 mg PO TID RF: 0 rosuvastatin 10 mg tablet 10 mg PO QPM RF: 0 famotidine [Pepcid] 20 mg Tablet 20 mg PO QPM@1700 RF: 0 furosemide 40 mg tablet 40 mg PO QAM RF: 0 hydralazine 100 mg tablet 100 mg PO TID RF: 0 carvedilol 25 mg tablet 25 mg PO BID RF: 0 simethicone [Mi-Acid Gas Relief(simethicon)] 80 mg Tablet,Chewable 80 mg PO Q6H PRN (Reason: bloating) Qty: 30 RF: 0 Humulin 70/30 U-100 Insulin 100 unit/mL (70-30) suspension See Rx Instructions .ROUTE .COMPLEX RF: 0 allopurinol 100 mg tablet 200 mg PO DAILY@1200 RF: 0 diclofenac sodium 1 % gel 4 g TOP QID PRN (Reason: Pain) RF: 0 cyanocobalamin (vitamin B-12) 500 mcg Tablet 500 mcg PO QAM Qty: 30 RF: 0 Saccharomyces boulardii [Florastor] 250 mg capsule 250 mg PO QAM RF: 0 Discontinued acetaminophen [Tylenol Extra Strength] 500 mg Tablet 1,000 mg PO AMPM RF: 0 Discharge Orders: Discharge Order (Routine); Ordered 12/17/21 Ordered By: Tatyana Mckeon/Other Patient Handouts: What Is Gout?, Treating Gout Attacks, Eating to Prevent Gout Admission Data Admit Date/Time: 12/12/21 10:21 Attending Provider: Fuentes Dave Admit Provider: Beverley Byers I. Primary Care Provider: Fox Ramirez Other Providers: Yasmine Urban ; Tatyana Valencia ; Haris Scanlon Other Interventions: Discharge Summary Assessment (RN) Last Done: 12/17/21 15:10 Supervising Physician Co-Signing Physician Notes Patient is seen and examined at bedside.No significant back pain but states having right hip/groin discomfort today. No other complaints. Denies any nausea, vomiting, abdominal pain, chest pain, shortness of breath. Offers no other complaints. On exam patient is obese, no apparent distress, normocephalic atraumatic, EOMI, normal breath sounds, mild basal crackles, S1-S2, no murmur, no pedal edema, abdomen soft, nontender, normal bowel sounds, alert, awake, oriented, grossly no focal deficits. Patient is being managed for spinal stenosis with lumbar radiculopathy. Continue pain management. Patient refused MRI due to claustrophobia. Needs spinal injections by Dr. Vinson which are scheduled. Advised to follow up with [facility]. Continue bowel regimen as needed. PT recommends to Return Home. I personally reviewed the record. Patient is interviewed and examined at bedside. Patient's care is coordinated with Tatyana Valencia PA-C. Please refer to the documentation above for details of patient's presentation and for discussion of other issues.
[2021-12-18] MEDS ORDERED: methylPREDNISolone 4 MG TAB PO SCH ×2 (07:00→21:00)
[2021-12-19] MEDS ORDERED: methylPREDNISolone 4 MG TAB PO SCH (07:00)
[2021-12-20] MEDS ORDERED: methylPREDNISolone 4 MG TAB PO SCH (07:00)
[2021-12-21] MEDS ORDERED: methylPREDNISolone 4 MG TAB PO SCH (07:00)
[2021-12-22] MEDS ORDERED: methylPREDNISolone 4 MG TAB PO SCH (07:00)
== END 2021-12-17 15:30 | disposition home health service (06) | DRG 552 ==
LOC: ED 08:03 → SUATTDRO 10:21 → 3W 10:21

== ENCOUNTER 2021-12-22 22:31 | Inpatient (IN) ==
[2021-12-22] MEDS ORDERED: ONDANSETRON INJ 2 MG/ML 2 ML VIAL IV STA (22:42)
[2021-12-22] MEDS: fentaNYL citrate 100 MCG/2 ML VIAL IV PRN (23:18)
[2021-12-22 23:45] LABS: Basophils # (auto) 0.01 K/uL (0-0.2); Eosinophils # (auto) 0.12 K/uL (0-0.5); Eosinophils % (auto) 0.6 %; Hematocrit (blood only) 34.2 % (37-47); Immature Granulocytes # (auto) 0.08 K/uL (0.00-0.02); Immature Granulocytes % (auto) 0.4 %; Lymphocytes # (auto) 1.07 K/uL (1.2-3.4); Lymphocytes % (auto) 4.9 %; Mean Corpuscular Hemoglobin 30.3 pg (25-34); Mean Corpuscular Hgb Conc 32.2 g/dL (32-36); Mean Corpuscular Volume 94.2 fL (80-100); Mean Platelet Volume 9.6 fL (7.4-10.4); Monocytes # (auto) 1.65 K/uL (0.11-0.59); Monocytes % (auto) 7.6 %; Neutrophils # (auto) 18.75 K/uL (1.4-6.5); Neutrophils % (auto) 86.5 %; Platelet Count 318 K/uL (130-400); RDW Coefficient of Variation 15.3 % (11.5-14.5); RDW Standard Deviation 52.9 fL (36.4-46.3); Red Blood Count 3.63 M/uL (4.2-5.4); White Blood Count 21.68 K/uL (4.8-10.8)
[2021-12-23 00:06] LABS: Partial Thromboplastin Ratio 1.1; Partial Thromboplastin Time 31.6 Seconds (21.0-31.0); Prothrombin Time 10.3 Seconds (9.0-12.0)
[2021-12-23 00:16] LABS: Troponin I < 0.03 ng/ml (0-0.04)
[2021-12-23 00:19] LABS: Alanine Aminotransferase 13 U/L (7-52); Albumin Globulin Ratio 2.2 (0.9-2); Albumin Level 4.4 gm/dl (3.4-5.0); Alkaline Phosphatase 50 U/L (34-104); Anion Gap 10 (3-11); Aspartate Aminotransferase 15 U/L (13-39); BUN Creatinine Ratio 29.2 (10-20); Blood Urea Nitrogen 69 mg/dl (6-23); Calcium 10.3 mg/dl (8.5-10.1); Carbon Dioxide 27 mmol/L (21-32); Chloride 101 mmol/L (98-107); Creatinine Clr Calc Pharmacy 20.9 ml/min; Est GFR (African American) 20.8 ml/min; Est GFR (Non-African American) 17.9 ml/min; Glucose 81 mg/dl (70-99(Fasting)); Potassium 3.4 mmol/L (3.5-5.1); Sodium 138 mmol/L (136-145); Total Protein 6.4 gm/dl (6.0-8.3)
--- NOTE | 2021-12-23 01:22 | Emergency Department Note ---
Impression & Plan Fall, Lumbar contusion, Weakness, Head injury ED Provider Note NAME: BELKIS LERMA AGE: 86 SEX: F : 1935 ARRIVES VIA: Ambulance INFORMANT: Patient, ED PROVIDER(S): Franco Michelle DO CHIEF COMPLAINT: Back pain HPI: The patient is an 86-year-old female who presented to the emergency department after a fall. The patient states that she has been experiencing lower extremity pain and weakness over the last 2 weeks. She states that she tried to get up to go to the bathroom when she fell backwards. She states that she struck her head and her back. She has very severe pain with any movement of her back and trying to ambulate. She had to call 911 to come to the emergency department. She states that she noticed that she has been having more difficulty ambulating over the course the last few weeks. The patient states that her pain is moderate to severe with any movement. She denies having any chest pain or difficulty breathing. She denies having any nausea or vomiting. ROS: See above HPI for pertinent positives & negatives. A total of 10 systems reviewed and were otherwise negative. PAST MEDICAL HISTORY: See Below PAST SURGICAL HISTORY: See Below FAMILY HISTORY: See Below SOCIAL HISTORY: See Below HOME MEDICATIONS: See Below ALLERGIES: See Below VITALS: See Below PHYSICAL EXAMINATION: GENERAL: Patient is awake and alert. She is very anxious appearing appears to be uncomfortable. EYES: The conjunctivae are clear. The pupils are round and reactive. EARS, NOSE, MOUTH AND THROAT: The nose is without any evidence of any deformity. NECK: The neck is nontender and supple. RESPIRATORY: Normal respiratory effort is noted there is no evidence of wheezing rhonchi or rales CARDIOVASCULAR: Regular rate and rhythm noted there no murmurs rubs or gallops normal S1 normal S2. GASTROINTESTINAL: The abdomen is soft. Abdomen is nontender. BACK: There is diffuse midline tenderness noted over the entire lower thoracic and upper lumbar spine. Range of motion appears to be intact but painful. MUSCULOSKELETAL/EXTREMITIES: There is no evidence of gross deformity full range of motion is noted in the hips and shoulders. SKIN: There is no obvious evidence of any rash. It is warm and dry. Pedal edema was noted bilaterally. NEUROLOGIC: Patient is awake alert and oriented x3. Strength is diminished bilaterally. The patient has trouble holding each leg off the bed for greater than 5 seconds. MEDICAL DECISION MAKING: The patient is an 86-year-old female who presented to the emergency department for an evaluation after a fall. The patient had a fall from a standing position when she was trying to ambulate with her walker. The patient fell directly on her back but also struck her head. She arrived via ambulance. The patient does have a history of chronic back pain and she is scheduled to see a pain specialist tomorrow for injections but it sounds though her pain this evening is acute. The patient had weakness in her legs which she states is not new. The patient was treated with pain medication in the emergency department. She was much more comfortable at rest but anytime she would try to move or ambulate she had very severe pain. I discussed the patient's laboratory and radiographic studies with her and her family member. Given the degree of pain she was experiencing I discussed her case with the on-call [facility]. They will evaluate the patient in the emergency department for further management and disposition. Triage Nursing notes reviewed. Prior medical records reviewed Vital Signs: reviewed and remarkable for elevated blood pressure. Differential diagnosis: Infection, dehydration, metabolic abnormality, hypo/hyperglycemia, electrolyte disturbance, anemia, hypoxia, cardiac sources, intracerebral event, toxicologic, neurologic, as well as other pathologies. ER treatment provided: See below Diagnostics interpreted by me: ECG: EKG was obtained in the emergency department. My interpretation is normal sinus rhythm at 87 bpm. There is no ectopy. There is no acute ST segment abnormalities noted. This was compared to a tracing from June 132020. No changes were noted. Cardiac Monitoring: An order was placed for continuous cardiac monitoring. The monitor shows a rate of 79 bpm with sinus rhythm. Laboratory studies: As stated above and show below. Imaging studies: See below Consultation(s): The [facility] was notified about the patient. They will evaluate the patient in the emergency department. Past Med/Surg History Medical History CHF (congestive heart failure) follows with Kaushal Nieto PA-C Chronic back pain Chronic kidney disease (CKD), stage IV (severe) follows with Dr. Childress Diabetes mellitus, type 2 Diverticulitis large intestine hx Hearing deficit History of kidney stones HTN (hypertension) Hyperlipidemia Kidney cysts LEFT SIDE>BEING MONITORED BY UROLOGY [facility] [place] Morbid obesity with BMI of 40.0-44.9, adult Nocturnal hypoxemia On home oxygen therapy 2L N/C at HS only Osteoarthritis Surgical History H/O: hysterectomy History of arthroscopy of left knee History of bilateral tubal ligation History of cardiac cath ?2009--@ [facility] [place]--no stents History of colonoscopy History of cystoscopy History of dilatation and curettage History of esophagogastroduodenoscopy (EGD) History of tooth extraction all teeth Hx of appendectomy Hx of cholecystectomy Nausea and vomiting after administration of anesthetic agent Family History Sister Family history of diabetes mellitus Sister Family history of diabetes mellitus Brother Family history of diabetes mellitus Family history of esophageal cancer Brother Family history of esophageal cancer Father Lung cancer Other No family history of adverse response to anesthesia No significant family history Social History Smoking Status: Never smoker Second Hand Exposure: No; Hx Alcohol Use: No Hx Substance Use: No Preferred Language: Tamazight Communication Ability: Effective Group Fitness Department Head Required: No Beliefs That Will Affect Care: None marital status: / Current Living Situation: Family Current Living Situation Comment: WITH SON Feels Safe at Home: Yes Assistive Devices: Denture - Upper, Denture - Lower, Glasses, Oxygen - at Night and Walker Allergies Allergies Allergy/AdvReac Type Severity Reaction Status Date / Time No Known Allergies Allergy Verified 12/22/21 09:26 Home Meds Home Medications Medication Instructions Recorded Confirmed aspirin 81 mg tablet,delayed 81 mg PO QAM 12/30/18 12/22/21 release isosorbide dinitrate 20 mg tablet 20 mg PO TID 12/30/18 12/22/21 rosuvastatin 10 mg tablet 10 mg PO QPM 12/30/18 12/22/21 famotidine 20 mg tablet (Pepcid) 20 mg PO QPM@1700 11/18/19 12/22/21 lidocaine 4 % topical patch 1 patch TOPICAL QAM 06/23/20 12/22/21 (Salonpas (lidocaine)) insulin human U-100 NPH-regulr See Rx Instructions .ROUTE .COMPLEX 03/16/21 12/22/21 70-30 mix 100 unit/mL subcutaneous susp (Humulin 70/30 U-100 Insulin) allopurinol 100 mg tablet 200 mg PO DAILY@1200 03/17/21 12/22/21 diclofenac sodium 1 % topical gel 4 g TOP QID PRN 03/17/21 12/22/21 furosemide 40 mg tablet 40 mg PO Q OTHER DAY 04/29/21 12/22/21 carvedilol 25 mg tablet 25 mg PO BID 06/13/21 12/22/21 hydralazine 100 mg tablet 100 mg PO TID 06/13/21 12/22/21 Saccharomyces boulardii 250 mg 250 mg PO QAM 08/26/21 12/22/21 capsule (Florastor) Previous Rx's Medication Instructions Recorded cyanocobalamin (vitamin B-12) 500 500 mcg PO QAM #30 tab 03/27/21 mcg tablet simethicone 80 mg chewable tablet 80 mg PO Q6H PRN #30 tab 07/01/21 (Mi-Acid Gas Relief (simethicone)) calcitriol 0.25 mcg capsule 0.25 mcg PO DAILY #90 cap 08/24/21 ondansetron 4 mg disintegrating 4 mg PO Q6H PRN #14 tab 11/25/21 tablet hydrocodone 5 mg-acetaminophen 325 1 tab PO Q8H PRN #12 tab 12/17/21 mg tablet polyethylene glycol 3350 17 gram 17 g PO BID PRN #14 ea 12/17/21 oral powder packet (Miralax) pregabalin 25 mg capsule (Lyrica) 25 mg PO BID #60 cap 12/17/21 Results & Data (ED) Vital Signs Vital Signs - 24 hr 12/22/21 22:45 12/22/21 22:48 12/23/21 00:08 Temperature 37.1 C Temperature Source Oral Pulse Rate 90 90 Pulse Rate [Left Radial] 90 Pulse Rhythm Regular Regular Pulse Rhythm [Left Radial] Regular Pulse Strength Normal Pulse Strength [Left Radial] Normal Respiratory Rate 20 20 Respiratory Effort / Characteristics Non-Labored Non-Labored Respiratory Depth Normal Normal Respiratory Pattern Regular Regular Blood Pressure 197/79 H Blood Pressure [Left Arm] 197/79 H Blood Pressure Mean 118 Blood Pressure Mean [Left Arm] 118 Blood Pressure Position Lying Blood Pressure Position [Left Arm] Lying Pulse Oximetry 98 95 89 L Oxygen Delivery Method Room Air Nasal Cannula Oxygen Flow Rate 0 Sepsis Recent Fever Within 48 Hours No Sepsis New/Unexplained Change in Mental Status No Sepsis Action Taken by Nursing No Action Required Oxygen Flow Rate - Titration 2 Pulse Oximetry Post Tiitration 97 12/23/21 00:48 Temperature Temperature Source Pulse Rate Pulse Rate [Left Radial] 79 Pulse Rhythm Pulse Rhythm [Left Radial] Pulse Strength Pulse Strength [Left Radial] Respiratory Rate 18 Respiratory Effort / Characteristics Respiratory Depth Respiratory Pattern Blood Pressure Blood Pressure [Left Arm] 142/60 H Blood Pressure Mean Blood Pressure Mean [Left Arm] 87 Blood Pressure Position Blood Pressure Position [Left Arm] Lying Pulse Oximetry 98 Oxygen Delivery Method Nasal Cannula Oxygen Flow Rate 2 Sepsis Recent Fever Within 48 Hours Sepsis New/Unexplained Change in Mental Status Sepsis Action Taken by Nursing Oxygen Flow Rate - Titration Pulse Oximetry Post Tiitration Home Medications Current Medication List: was personally reviewed by me Laboratory Data Attestation: I reviewed the patient's lab results. Result diagrams: 12/22/21 22:43 12/22/21 22:43 Lab Results 12/22/21 12/22/21 12/22/21 Range/Units 22:43 22:43 22:43 WBC 21.68 H (4.8-10.8) K/uL RBC 3.63 L (4.2-5.4) M/uL Hgb 11.0 L (12.0-16.0) g/dL Hct 34.2 L (37-47) % MCV 94.2 (80-100) fL MCH 30.3 (25-34) pg MCHC 32.2 (32-36) g/dL RDW Std Deviation 52.9 H (36.4-46.3) fL RDW Coeff of Noemy 15.3 H (11.5-14.5) % Plt Count 318 (130-400) K/uL MPV 9.6 (7.4-10.4) fL Immature Gran % (Auto) 0.4 % Neut % (Auto) 86.5 % Lymph % (Auto) 4.9 % Amite % (Auto) 7.6 % Eos % (Auto) 0.6 % Baso % (Auto) 0.0 % Neut # (Auto) 18.75 H (1.4-6.5) K/uL Lymph # (Auto) 1.07 L (1.2-3.4) K/uL Amite # (Auto) 1.65 H (0.11-0.59) K/uL Eos # (Auto) 0.12 (0-0.5) K/uL Baso # (Auto) 0.01 (0-0.2) K/uL Immature Gran # (Auto) 0.08 H (0.00-0.02) K/uL PT 10.3 (9.0-12.0) Seconds INR 1.0 (0.9-1.1) APTT 31.6 H (21.0-31.0) Seconds PTT Ratio 1.1 Sodium 138 (136-145) mmol/L Potassium 3.4 L (3.5-5.1) mmol/L Chloride 101 (98-107) mmol/L Carbon Dioxide 27 (21-32) mmol/L Anion Gap 10 (3-11) BUN 69 H (6-23) mg/dl Creatinine 2.36 H (0.6-1.2) mg/dl Est Cr Clr Drug Dosing 20.9 ml/min Est GFR ( Amer) 20.8 ml/min Est GFR (Non-Af Amer) 17.9 ml/min BUN/Creatinine Ratio 29.2 H (10-20) Glucose 81 (70-99(Fasting)) mg/dl Calcium 10.3 H (8.5-10.1) mg/dl Total Bilirubin 1.0 (0.2-1.0) mg/dl AST 15 (13-39) U/L ALT 13 (7-52) U/L Alkaline Phosphatase 50 (34-104) U/L Troponin I < 0.03 (0-0.04) ng/ml Total Protein 6.4 (6.0-8.3) gm/dl Albumin 4.4 (3.4-5.0) gm/dl Globulin 2.0 L (2.5-4.0) gm/dl Albumin/Globulin Ratio 2.2 H (0.9-2) TSH (0.300-4.500) uIu/ml 12/22/21 Range/Units 22:43 WBC (4.8-10.8) K/uL RBC (4.2-5.4) M/uL Hgb (12.0-16.0) g/dL Hct (37-47) % MCV (80-100) fL MCH (25-34) pg MCHC (32-36) g/dL RDW Std Deviation (36.4-46.3) fL RDW Coeff of Noemy (11.5-14.5) % Plt Count (130-400) K/uL MPV (7.4-10.4) fL Immature Gran % (Auto) % Neut % (Auto) % Lymph % (Auto) % Amite % (Auto) % Eos % (Auto) % Baso % (Auto) % Neut # (Auto) (1.4-6.5) K/uL Lymph # (Auto) (1.2-3.4) K/uL Amite # (Auto) (0.11-0.59) K/uL Eos # (Auto) (0-0.5) K/uL Baso # (Auto) (0-0.2) K/uL Immature Gran # (Auto) (0.00-0.02) K/uL PT (9.0-12.0) Seconds INR (0.9-1.1) APTT (21.0-31.0) Seconds PTT Ratio Sodium (136-145) mmol/L Potassium (3.5-5.1) mmol/L Chloride (98-107) mmol/L Carbon Dioxide (21-32) mmol/L Anion Gap (3-11) BUN (6-23) mg/dl Creatinine (0.6-1.2) mg/dl Est Cr Clr Drug Dosing ml/min Est GFR ( Amer) ml/min Est GFR (Non-Af Amer) ml/min BUN/Creatinine Ratio (10-20) Glucose (70-99(Fasting)) mg/dl Calcium (8.5-10.1) mg/dl Total Bilirubin (0.2-1.0) mg/dl AST (13-39) U/L ALT (7-52) U/L Alkaline Phosphatase (34-104) U/L Troponin I (0-0.04) ng/ml Total Protein (6.0-8.3) gm/dl Albumin (3.4-5.0) gm/dl Globulin (2.5-4.0) gm/dl Albumin/Globulin Ratio (0.9-2) TSH 0.982 (0.300-4.500) uIu/ml Administered Medications Fentanyl Citrate (Fentanyl Citrate 100 Mcg/2 Ml Vial) 50 mcg IV Q15M PRN PRN Reason: Pain Stop: 01/05/22 22:41 Last Admin: 12/23/21 00:00 Dose: 50 mcg Documented by: [id number] Admin: 12/22/21 23:18 Dose: 50 mcg Documented by: [id number] Discontinued Medications Ondansetron HCl (Ondansetron Inj 2 Mg/Ml 2 Ml Vial) 4 mg IV NOW STA Stop: 12/22/21 22:43 Last Admin: 12/22/21 23:18 Dose: 4 mg Documented by: [id number] Imaging Data Radiologist's Impression: Patient: BELKIS LERMA (Female) : 33 Status: ER Date: 12/23/21 01:09 Room #: History: FELL WHILE IN BATHROOM AND HIT BACK OF HEAD, PAIN DOWN SPINE Slices: [phone] Priors: Tech: Angelo Shafferie @ [phone] Exams: CT T SPINE Contrast:K Accession Numbers: [id number] Referring Physician: REFERRED SELF Preliminary Findings Only See Final Report For Complete Findings CT T SPINE: There is diffuse osteopenia. Sagittal reformatted images show mild flowing anterior osteophytes ankylosing the thoracic spine from approximately the T11 through T5 level. No compression fracture, burst fracture, or subluxation is seen. The facets and spinous processes appear intact and normally aligned. No canal compromise is identified. The paraspinous soft tissues showed no acute traumatic findings. Incidental note is made of the 4 cm complex cyst or mass in left thyroid lobe with calcification within it. There is moderate cardiomegaly and severe coronary calcification. Small amount of subsegmental atelectasis versus fibrosis in the lung bases. Radiologist: Isaac Valencia MD Study ready at 01:10 and initial results transmitted at 01:38 Patient: BELKIS LERMA (Female) : 33 Status: ER Date: 12/23/21 00:48 Room #: History: FELL WHILE IN BATHROOM AND HIT BACK OF HEAD, PAIN DOWN SPINE Slices: [phone] Priors: Tech: Angelo Shafferie @ [phone] Exams: CT L SPINE Contrast: Accession Numbers: [id number] Referring Physician: REFERRED SELF Preliminary Findings Only See Final Report For Complete Findings CT L SPINE: Comparison a CT abdomen and pelvis from December 12, 2021. The lumbar spine vertebral body heights are normally maintained. No compression fracture or burst fracture is seen. Mild osteopenia and moderate multilevel degenerative disc disease throughout the lumbar spine with vacuum phenomenon at all lumbar levels except L4-5 and L5-S1. Mild to moderate degenerative facet arthrosis in the lower lumbar spine. No acute fracture or traumatic subluxation is seen. Axial soft tissue images show significant findings at the following levels: L1-2: There is 3-4 mm broad-based posterior disc bulge narrowing the thecal sac to 7 mm. L2-3: Broad-based posterior disc bulge measuring 3-4 mm narrowing the thecal sac to 7 mm. L3-4: 5-6 mm posterior disc bulge greater to the right narrowing the thecal sac to 5 mm. Partial visualization of left renal atrophy and hydronephrosis, better visualized on the comparison study. Radiologist: Isaac Valencia MD Study ready at 01:02 and initial results transmitted at 01:23 Patient: BELKIS LERMA (Female) : 33 Status: ER Date: 12/23/21 00:43 Room #: History: FELL WHILE IN BATHROOM AND HIT BACK OF HEAD, PAIN DOWN SPINE Slices: 74 3 Priors: Tech: Vance Shaffer @ [phone] Exams: CT C SPINE Contrast: Accession Numbers: [id number] Referring Physician: REFERRED SELF Preliminary Findings Only See Final Report For Complete Findings CT C SPINE: Mild narrowing and osteophytosis of the atlantodental joint. The odontoid process is intact. Osteopenia and very mild degenerative disc disease and facet arthrosis in the lower cervical spine. No acute fracture or subluxation is seen. Axial soft tissue images show no evidence of significant spinal stenosis. There is partial visualization of the calcified nodule in the left thyroid lobe measuring the 4 cm. Radiologist: Isaac Valencia MD Study ready at 00:47 and initial results transmitted at 01:15 Patient: BELKIS LERMA (Female) : 33 Status: ER Date: 12/23/21 00:43 Room #: History: FELL WHILE IN BATHROOM AND HIT BACK OF HEAD, PAIN DOWN SPINE Slices: 67 Priors: Tech: Vance Shaffer @ [phone] Exams: CT HEAD Contrast: Accession Numbers: [id number] Referring Physician: REFERRED SELF Preliminary Findings Only See Final Report For Complete Findings CT HEAD: Comparison to March 17, 2021. There is a small posterior scalp hematoma. No skull fracture is seen. The paranasal sinuses and mastoid air cells are within normal limits. Mild cerebral atrophy and periventricular white matter low density consistent with chronic small vessel disease and/or senescent changes, unchanged. There is no evidence of acute large vessel infarct or intracranial hemorrhage. Radiologist: Isaac Valencia MD Study ready at 01:01 and initial results transmitted at 01:12 Discharge Plan Visit Data Chief Complaint: Fall ED Provider: Franco Michelle Discharge Problem: Fall, Lumbar contusion, Weakness, Head injury Patient Disposition: Being Evaluated by Hospitalist Forms Stand Alone Forms: My [facility] Prescriptions Prescriptions: No Action calcitriol 0.25 mcg capsule 0.25 mcg PO DAILY Qty: 90 RF: 3 ondansetron 4 mg tablet,disintegrating 4 mg PO Q6H PRN (Reason: nausea and vomiting) Qty: 14 RF: 0 lidocaine [Salonpas (lidocaine)] 4 % Adhesive Patch,Medicated 1 patch TOPICAL QAM RF: 0 aspirin 81 mg Tablet,Delayed Release (Dr/Ec) 81 mg PO QAM RF: 0 isosorbide dinitrate 20 mg tablet 20 mg PO TID RF: 0 rosuvastatin 10 mg tablet 10 mg PO QPM RF: 0 famotidine [Pepcid] 20 mg Tablet 20 mg PO QPM@1700 RF: 0 furosemide 40 mg tablet 40 mg PO Q OTHER DAY RF: 0 hydralazine 100 mg tablet 100 mg PO TID RF: 0 carvedilol 25 mg tablet 25 mg PO BID RF: 0 simethicone [Mi-Acid Gas Relief(simethicon)] 80 mg Tablet,Chewable 80 mg PO Q6H PRN (Reason: bloating) Qty: 30 RF: 0 Humulin 70/30 U-100 Insulin 100 unit/mL (70-30) suspension See Rx Instructions .ROUTE .COMPLEX RF: 0 allopurinol 100 mg tablet 200 mg PO DAILY@1200 RF: 0 diclofenac sodium 1 % gel 4 g TOP QID PRN (Reason: Pain) RF: 0 cyanocobalamin (vitamin B-12) 500 mcg Tablet 500 mcg PO QAM Qty: 30 RF: 0 Saccharomyces boulardii [Florastor] 250 mg capsule 250 mg PO QAM RF: 0 polyethylene glycol 3350 [Miralax] 17 gram Powder In Packet 17 g PO BID PRN (Reason: constipation) Qty: 14 RF: 0 hydrocodone-acetaminophen 5-325 mg Tablet 1 tab PO Q8H PRN (Reason: pain) Qty: 12 RF: 0 pregabalin [Lyrica] 25 mg Capsule 25 mg PO BID Qty: 60 RF: 0 Referrals Referrals: Fox Ramirez MD [Primary Care Provider] -
[2021-12-23] MEDS: fentaNYL citrate 100 MCG/2 ML VIAL IV PRN ×2 (05:33)
[2021-12-23] MEDS ORDERED: INS REG SCH (06:35)
[2021-12-23] MEDS ORDERED: SIMETHICONE 80 MG CHEW PO PRN (06:35)
[2021-12-23] MEDS ORDERED: ONDANSETRON INJ 2 MG/ML 2 ML VIAL IV PRN (06:35)
[2021-12-23] MEDS ORDERED: DICLOFENAC SOD 1% GEL 100 GM TUBE EXT PRN (06:35)
[2021-12-23] MEDS ORDERED: INS HUMAN ISOPH SCH (06:35)
--- NOTE | 2021-12-23 07:04 | History and Physical Report ---
DATE OF ADMISSION: 12/23/2021. CHIEF COMPLAINT: Status post fall and severe back pain. HISTORY OF PRESENT ILLNESS: This is an 86-year-old female with past medical history significant for type 2 diabetes, chronic kidney disease stage IV, history of secondary hyperparathyroidism, hyperlipidemia, chronic rhinitis, nocturnal hypoxia, chronic diastolic CHF, mitral valve insufficiency, hypertension, left bundle-branch block, chronic right-sided congestive heart failure, vitamin D deficiency, GERD, osteoporosis, lumbar degenerative disk disease, history of dysplastic nevus. Currently lives at home with her son, was brought in by other son because she fell at home. She was trying to go to bathroom. She uses walker at home. She fell backwards and she hit her head, no loss of consciousness. Currently complaining a lot of back pain and leg pain. She says she is having ambulatory dysfunction because of pain. She is not able to walk. She is supposed to see Dr. Vinson for spinal injections on 12/23/2021. Any movement of the leg is causing a lot of pain. Sometimes the pain is shooting into her ribcage. Currently, no chest pain, no shortness of breath, no cough, no fever, no chills. Has some nausea. No vomiting, no abdominal pain. She had few episodes of diarrhea today because she is taking MiraLax daily. Denies any blood in the stool or black stools. Normal bladder movements. Denies any headache, neck pain. No blurred visions, no earache, no runny nose, no sore throat, no cough. Appetite is okay. Currently, hemodynamically stable. ALLERGIES: MORPHINE AND RELATED, PHENYLPROPANOLAMINE. PAST MEDICAL HISTORY: As mentioned above. PAST SURGICAL HISTORY: Knee arthroplasty, colonoscopy, spinal lumbar sacral shots, ligation of oviducts, appendectomy, cholecystectomy, total hysterectomy. MEDICATIONS: The patient is on allopurinol 200 mg p.o. daily, aspirin 81 mg p.o. daily p.m. Calcitriol 0.25 mcg p.o. daily, Coreg 25 mg p.o. b.i.d., vitamin B12 500 mcg p.o. daily, diclofenac sodium 4 g topical q.i.d. p.r.n., Pepcid 20 mg p.o. p.m., furosemide 40 mg p.o. every other day, Humulin 70/30, 75 units in the skin before breakfast and 40 units before supper, hydralazine 100 mg p.o. t.i.d., hydrocodone/acetaminophen 5/325 mg 1 tablet p.o. q. 8 hours p.r.n., isosorbide dinitrate 20 mg p.o. t.i.d., lidocaine patch topical a.m., Zofran 4 mg p.o. q. 6 hours p.r.n., MiraLax 17 g p.o. b.i.d. p.r.n., Lyrica 25 mg p.o. b.i.d., lovastatin 10 mg p.o. a.m.,Florastor 250 mg p.o. a.m., simethicone 80 mg p.o. q. 6 hours p.r.n. FAMILY HISTORY: Significant for brother has throat cancer, father has laryngeal cancer, sister has lung cancer, mother has stroke. SOCIAL HISTORY: No alcohol, no smoking, no drug use. REVIEW OF SYSTEMS: As per HPI. Rest of review of systems is negative. PHYSICAL EXAMINATION: GENERAL: The patient is of moderate build, not in acute distress. VITAL SIGNS: Temperature 37.1, pulse 83, respiratory rate 18, blood pressure 143/55, oxygen 91% on room air. HEENT: Pupils equal, round and reactive to light. Oral mucosa moist. NECK: No JVD, no neck masses. CARDIOVASCULAR: S1 and S2 heard. Regular rate and rhythm. No murmur, no gallop. RESPIRATORY SYSTEM: Normal AP diameter. No accessory muscle use. No wheezing, no crackles. ABDOMEN: Soft, bowel sounds present, nontender. Mild discomfort. No distention. CENTRAL NERVOUS SYSTEM: Cranial nerves II-XII grossly intact, nonfocal. EXTREMITIES: Painful movements of the lower extremities. No edema, no erythema seen. LABORATORY DATA: WBC 21, hemoglobin 11, hematocrit 34.2, platelets 318. PT 10.3, INR 1, APTT 31.6. Sodium 138, potassium 3.4, chloride 101, CO2 of 27, BUN 69, creatinine 2.36, serum glucose 81, calcium 10.3, total bilirubin 1, AST 15, ALT 13, alkaline phosphatase 50. Troponin I less than 0.03. TSH 0.9. SARS-CoV-2 negative. IMAGING DATA: Chest x-ray, no acute findings. Lumbar spine CT, cervical spine CT, and CT of the head, preliminary report is unremarkable. Pelvic x-ray results pending. EKG: Normal sinus rhythm at a rate of 87, no significant change was found. ASSESSMENT AND PLAN: This is an 86-year-old female who presents with a fall at home and complains of severe back pain and knee pain. 1. Status post fall, ambulatory dysfunction, severe back pain and also knee pain: She is supposed to follow with pain doctor for shots to the back and the knees. Will continue with PT, OT and pain management consult while she is in the hospital. Continue Lyrica which was started last admission. Monitor in the medical floor. 2. Leukocytosis: No obvious source of infection.probably from recent steroid use. Will follow the urinalysis and follow the repeat labs. 3. Chronic kidney disease stage IV: Presently with a creatinine of 2.36, close to baseline. Will follow the repeat labs. 4. Hyperlipidemia: Continue statin. 5. Hypertension: Continue her home medication of hydralazine, isosorbide dinitrate, Coreg. Will monitor the blood pressure. 6. History of chronic diastolic congestive heart failure and right-sided heart failure: Continue Coreg. Continue her Lasix. Monitor for any volume overload. 7. History of diabetes: Continue her Humulin 70/30, insulin sliding scale. Follow the blood sugars. 8. History of gout: Continue allopurinol. 9. History of secondary hyperparathyroidism: Calcium is slightly high at 10.3, will follow the repeat labs. 10. Nocturnal hypoxemia: Continue home oxygen. 11. Chronic left bundle-branch block. 12. Deep venous thrombosis prophylaxis: Placed on heparin subcutaneous. DISPOSITION: Closely monitor in the medical floor. PT/OT. Social service to help with discharge planning. The patient may need placement. Level 1 full code. Job ID: [id number] [facility]
--- NOTE | 2021-12-23 07:15 | CT Scan Report ---
CT OF THE HEAD WITHOUT CONTRAST CLINICAL HISTORY: Fall. COMPARISON STUDY: Head CT March 17, 2021. TECHNIQUE: Helical axial images of the head were obtained without IV contrast. Automated exposure con trol was utilized for the study. A dose lowering technique was utilized adhering to the principles o f ALARA. FINDINGS: No acute intracranial hemorrhage, midline shift or mass effect is present. The ventricular system is unremarkable. The basal cisterns are patent. No extra-axial collections are present. There are no findings to suggest acute dural sinus thrombosis or acute territorial infarct. Posterior scalp contusion is present. There is no acute femoral fracture. Visualized portions of the sinuses and mas toid air cells are clear. IMPRESSION: 1. No acute intracranial findings. 2. Posterior scalp contusion. No calvarial fracture. ACT 112: Negative or not required by law. Electronically signed by: Chai Morales M.D. 12/23/2021 7:14 AM
[2021-12-23 07:21] LABS: Basophils # (auto) 0.03 K/uL (0-0.2); Basophils % (auto) 0.2 %; Eosinophils # (auto) 0.09 K/uL (0-0.5); Eosinophils % (auto) 0.5 %; Hematocrit (blood only) 31.4 % (37-47); Hemoglobin 10.2 g/dL (12.0-16.0); Immature Granulocytes # (auto) 0.03 K/uL (0.00-0.02); Immature Granulocytes % (auto) 0.2 %; Lymphocytes # (auto) 1.43 K/uL (1.2-3.4); Lymphocytes % (auto) 8.5 %; Mean Corpuscular Hemoglobin 30.9 pg (25-34); Mean Corpuscular Hgb Conc 32.5 g/dL (32-36); Mean Corpuscular Volume 95.2 fL (80-100); Mean Platelet Volume 9.4 fL (7.4-10.4); Monocytes # (auto) 1.95 K/uL (0.11-0.59); Monocytes % (auto) 11.6 %; Neutrophils # (auto) 13.35 K/uL (1.4-6.5); Platelet Count 283 K/uL (130-400); RDW Coefficient of Variation 15.3 % (11.5-14.5); White Blood Count 16.88 K/uL (4.8-10.8)
--- NOTE | 2021-12-23 07:33 | CT Scan Report ---
CT OF THE CERVICAL SPINE WITHOUT CONTRAST CLINICAL HISTORY: fall COMPARISON STUDY: No previous studies for comparison. TECHNIQUE: Helical axial images of the cervical spine were obtained without IV contrast. Sagittal a nd coronal reconstructions were viewed. Automated exposure control was utilized for the study. A do se lowering technique was utilized adhering to the principles of ALARA. FINDINGS: Alignment of the cervical spine is anatomic. Vertebral body heights are maintained. No acut e cervical spine fracture or subluxation is present. There is no prevertebral edema. Facet joints are intact. Moderate multilevel facet arthrosis is present. Disc spaces are preserved. Degenerative arthur nges at the C1-C2 articulation are present. Partially visualized left lobe thyroid nodule measures at least 4.1 cm. This contains coarse calcifications. IMPRESSION: No acute cervical spine fracture or subluxation. ACT 112: Negative or not required by law. Electronically signed by: Chai Morales M.D. 12/23/2021 7:32 AM
--- NOTE | 2021-12-23 07:45 | CT Scan Report ---
CT lumbar spine wo con CLINICAL HISTORY: fall . Low back pain COMPARISON STUDY: No previous studies for comparison. CT DOSE: TECHNIQUE: Standard CT of the Lumbar Spine was performed without IV contrast. A dose lowering techni que was utilized adhering to the principles of ALARA. FINDINGS: Bones: Bones are osteopenic. There is no evidence for an acute fracture or malalignment. The heights of the vertebral bodies are maintained. The vertebral bodies are in anatomic alignment. Disc spaces: There is moderate disc space narrowing from T12 through L3 with vacuum disc phenomena pr esent. There is mild narrowing at L3-4 vacuum disc phenomena present. At L1-2, L2-3 and L3-4, there is diffuse bulging of the annulus present. Hypertrophic facet joint dis ease with thickening of ligamentum flavum is also present bilaterally. The combination of these findi ngs produce segmental central canal stenosis at these levels. Facet joints: Hypertrophic facet joint disease also seen at the lower 2 disc space levels. Mild degen erative changes are present involving the SI joints bilaterally. Soft tissues: The prevertebral soft tissues are within normal limits. IMPRESSION: 1. Osteopenia with no acute osseous pathology. 2. Degenerative disc and degenerative facet joint disease with evidence for segmental central canal s tenosis. ACT 112: Negative or not required by law. Electronically signed by: Phillip Amin M.D. 12/23/2021 7:43 AM
[2021-12-23 07:47] LABS: BUN Creatinine Ratio 29.7 (10-20); Calcium 9.7 mg/dl (8.5-10.1); Creatinine Clr Calc Pharmacy 21.2 ml/min; Est GFR (African American) 21.2 ml/min; Est GFR (Non-African American) 18.3 ml/min; Magnesium 2.2 mg/dl (1.7-2.4); Potassium 3.4 mmol/L (3.5-5.1)
--- NOTE | 2021-12-23 07:47 | CT Scan Report ---
CT OF THE THORACIC SPINE CLINICAL HISTORY: Fall. COMPARISON STUDY: No previous studies for comparison. TECHNIQUE: Helical axial images of the thoracic spine were obtained. Sagittal and coronal reconstru ctions were viewed. Automated exposure control was utilized for the study. A dose lowering techniqu e was utilized adhering to the principles of ALARA. FINDINGS: Alignment of the thoracic spine is anatomic. Vertebral body heights are maintained. Note is made of extensive anterior osteophytosis of the mid to lower thoracic spine. There is an acute trans verse fracture through anterior osteophytes at the T5-T6 level. No extension into the posterior eleme nts is identified. There is no retropulsion. No significant loss of vertebral body height. This fract ure is slightly extends into the superior endplate of T6. No additional acute thoracic spine fracture s are present. No acute fractures within visualized portions of the posterior ribs. Incidentally note d left lobe thyroid nodule measures approximately 4 cm. This contains coarse calcifications. IMPRESSION: 1. Acute transverse nondisplaced fracture through anterior osteophytes at the T5-T6 level. Fracture s lightly extends into the superior endplate of T6. No extension into the posterior elements identified . No retropulsion. Stability difficult to assess by CT given extensive anterior osteophytosis. This f inding will be called/faxed to the ordering provider at time of dictation. 2. Extensive anterior osteophytosis of the mid to lower thoracic spine. This favors diffuse idiopathi c skeletal hyperostosis. ACT 112: Negative or not required by law. Electronically signed by: Chai Morales M.D. 12/23/2021 7:46 AM
--- NOTE | 2021-12-23 07:48 | XRay Report ---
XR chest 1V portable CLINICAL HISTORY: Weakness. Fall. COMPARISON STUDY: Chest radiograph June 24, 2021. FINDINGS: No pneumothorax or pleural effusion is present. There is no consolidation or evidence for p ulmonary edema. Moderate cardiomegaly is unchanged. IMPRESSION: No acute cardiopulmonary findings. Stable cardiomegaly. ACT 112: Negative or not required by law. Electronically signed by: Chai Morales M.D. 12/23/2021 7:46 AM
--- NOTE | 2021-12-23 07:49 | XRay Report ---
XR pelvis 1-2V routine CLINICAL HISTORY: fall COMPARISON: CT of the abdomen and pelvis December 12, 2021. FINDINGS: Sacroiliac joints and symphysis pubis are intact. No acute fracture is identified within t he pelvis or hips. Moderate left and mild right hip osteoarthritis is present. IMPRESSION: No acute fracture within the pelvis or hips. ACT 112: Negative or not required by law. Electronically signed by: Chai Morales M.D. 12/23/2021 7:48 AM
[2021-12-23 07:52] LABS: Estimated Average Glucose 126 mg/dl
[2021-12-23] MEDS: INSULIN ASPART PER UNIT SC SCH ×4 (08:05→21:34)
[2021-12-23] MEDS: LIDOCAINE 5% 1 PATCH TD SCH (08:30)
[2021-12-23] MEDS: FUROSEMIDE 40 MG TAB PO SCH (08:31)
[2021-12-23] MEDS: hydrALAZINE TAB 50 MG TAB PO SCH ×3 (08:31→21:17)
[2021-12-23] MEDS: CYANOCOBALAMIN (B-12) 500 MCG TABLET PO SCH (08:31)
[2021-12-23] MEDS: ASPIRIN 81 MG ECTAB PO SCH (08:32)
[2021-12-23] MEDS: CALCITRIOL 0.25 MCG CAPSULE PO SCH (08:32)
[2021-12-23] MEDS: ISOSORBIDE DINITRATE 20 MG TAB PO SCH ×3 (08:32→17:49)
[2021-12-23] MEDS: SACCHAROMYCES BOULARDII 250 MG CAP PO SCH (08:32)
[2021-12-23] MEDS: carvediloL 25 MG TAB PO SCH ×2 (08:33→21:17)
[2021-12-23] MEDS: HEPARIN SOD 5,000 UNIT/0.5 ML VIAL SQ SCH ×3 (08:33→21:15)
[2021-12-23] MEDS: PREGABALIN 25 MG CAP PO SCH ×2 (08:38→21:24)
--- NOTE | 2021-12-23 08:43 | Pain Management Consultation ---
Date of Consultation December 23, 2021 Assessment & Plan (1) Fall: Encounter type: initial encounter Qualified Code(s): W19.XXXA - Unspecified fall, initial encounter (2) Compression fracture of T6 vertebra: (3) Lumbar contusion: Encounter type: initial encounter Qualified Code(s): S30.0XXA - Contusion of lower back and pelvis, initial encounter (4) Weakness: (5) Lumbar radiculopathy: (6) Obesity: (7) Spinal stenosis: Spinal region: unspecified Qualified Code(s): M48.00 - Spinal stenosis, site unspecified 1. Continue with ordered Lidocaine patch, Lyrica 25 mg twice daily, [place] 5/325 mg 3 times daily, and IV Dilaudid 0.5 mg if needed for breakthrough pain. 2. Continue to work with Dr. Vinson for chronic low back pain complaints. 3. Interventional procedures not warranted at this time as the majority of her current pain complaints are coming from T5-T6 osteophyte fracture and thoracic/lumbar contusions. 4. Recommend PT/OT to work on lower extremity strengthening. Thank you for the consultation. Will sign off on the patient at this time. Please contact for any questions or concerns. History of Present Illness Reason for Consultation: fall; back pain Attending Physician: Constanza Overton, History of Present Illness Mrs. Rollins is an 86 year old female that fell in the bathroom last night. She does complain of low back, mid thoracic, and scapular pain. Patient states that her legs felt weak and the walker tilted when she was getting up and fell backwards. Her primary pain complaint is of the mid thoracic region. She describes a sharp stabbing pain that is worse with any movement. She does have chronic low back pain and leg cramping to which she was supposed to receive a lumbar epidural injection by Dr. Vinson this afternoon. Pain is rated 10/10 currently. She did receive Fentanyl 50mcg IV x 3 in the ED with some relief. No bowel/bladder incontinence, saddle anesthesia, foot drop. Case discussed with Dr. Yasmine Urban Pain Assessment Full Body Front + Back: 1. 2. 3. Allergies Allergy/AdvReac Type Severity Reaction Status Date / Time No Known Allergies Allergy Verified 12/22/21 09:26 Home Medications Medication Instructions Recorded Confirmed Type aspirin 81 mg tablet,delayed 81 mg PO QAM 12/30/18 12/22/21 History release isosorbide dinitrate 20 mg tablet 20 mg PO TID 12/30/18 12/22/21 History rosuvastatin 10 mg tablet 10 mg PO QPM 12/30/18 12/22/21 History famotidine 20 mg tablet (Pepcid) 20 mg PO QPM@1700 11/18/19 12/22/21 History lidocaine 4 % topical patch 1 patch TOPICAL QAM 06/23/20 12/22/21 History (Salonpas (lidocaine)) insulin human U-100 NPH-regulr See Rx Instructions .ROUTE .COMPLEX 03/16/21 12/22/21 History 70-30 mix 100 unit/mL subcutaneous susp (Humulin 70/30 U-100 Insulin) allopurinol 100 mg tablet 200 mg PO DAILY@1200 03/17/21 12/22/21 History diclofenac sodium 1 % topical gel 4 g TOP QID PRN 03/17/21 12/22/21 History cyanocobalamin (vitamin B-12) 500 500 mcg PO QAM #30 tab 03/27/21 12/22/21 Rx mcg tablet furosemide 40 mg tablet 40 mg PO Q OTHER DAY 04/29/21 12/22/21 History carvedilol 25 mg tablet 25 mg PO BID 06/13/21 12/22/21 History hydralazine 100 mg tablet 100 mg PO TID 06/13/21 12/22/21 History simethicone 80 mg chewable tablet 80 mg PO Q6H PRN #30 tab 07/01/21 12/22/21 Rx (Mi-Acid Gas Relief (simethicone)) calcitriol 0.25 mcg capsule 0.25 mcg PO DAILY #90 cap 08/24/21 12/22/21 Rx Saccharomyces boulardii 250 mg 250 mg PO QAM 08/26/21 12/22/21 History capsule (Florastor) ondansetron 4 mg disintegrating 4 mg PO Q6H PRN #14 tab 11/25/21 12/22/21 Rx tablet hydrocodone 5 mg-acetaminophen 325 1 tab PO Q8H PRN #12 tab 12/17/21 12/22/21 Rx mg tablet polyethylene glycol 3350 17 gram 17 g PO BID PRN #14 ea 12/17/21 12/22/21 Rx oral powder packet (Miralax) pregabalin 25 mg capsule (Lyrica) 25 mg PO BID #60 cap 12/17/21 12/22/21 Rx Patient History Medical History CHF (congestive heart failure) follows with Kaushal Nieto PA-C Chronic back pain Chronic kidney disease (CKD), stage IV (severe) follows with Dr. Childress Diabetes mellitus, type 2 Diverticulitis large intestine hx Hearing deficit History of kidney stones HTN (hypertension) Hyperlipidemia Kidney cysts LEFT SIDE>BEING MONITORED BY UROLOGY [facility] Morbid obesity with BMI of 40.0-44.9, adult Nocturnal hypoxemia On home oxygen therapy 2L N/C at HS only Osteoarthritis Surgical History H/O: hysterectomy History of arthroscopy of left knee History of bilateral tubal ligation History of cardiac cath ?2009--@ [facility] [place]--no stents History of colonoscopy History of cystoscopy History of dilatation and curettage History of esophagogastroduodenoscopy (EGD) History of tooth extraction all teeth Hx of appendectomy Hx of cholecystectomy Nausea and vomiting after administration of anesthetic agent Family History Sister Family history of diabetes mellitus Sister Family history of diabetes mellitus Brother Family history of diabetes mellitus Family history of esophageal cancer Brother Family history of esophageal cancer Father Lung cancer Other No family history of adverse response to anesthesia No significant family history Social History Smoking Status: Never smoker Second Hand Exposure: No; Hx Alcohol Use: No Hx Substance Use: No Preferred Language: Greek Communication Ability: Effective Two Way Radio Installer Required: No Beliefs That Will Affect Care: None marital status: / Current Living Situation: Family Current Living Situation Comment: WITH SON Feels Safe at Home: No Is there a partner from a previous relationship who is making you feel unsafe now?: No Safety Concerns: Feels Safe At This Time Assistive Devices: Denture - Upper, Denture - Lower, Glasses, Oxygen - at Night and Walker Physical Exam Physical Exam: GENERAL: This is an 86 year old morbidly obese female. Appears in moderate pain with movement. HEAD/FACE: Normocephalic and atraumatic. EYES: No drainage or conjunctival injection. ENT: Nose without bleeding or discharge. Oral mucosa moist. NECK: Full ROM without apparent pain. No swelling or masses noted. No scapular tenderness. RESPIRATORY: Patient with unlabored breathing. No signs of respiratory distress. CHEST/AXILLA: Chest movement symmetrical. No deformities noted. CARDIOVASCULAR: Patients heart rate is regular, with pulse rate as documented. ABDOMEN/GI: No distension BACK: Tenderness along the T9 region and along the entire lumbar region. No muscle spasm or trigger points noted. No SI joint tenderness. SKIN: [place], warm and dry. No rash noted. MS/EXTREMITY: No swelling, no deformities. 4/5 strength of the lower extremities. NEURO: Alert and appears oriented. Speech is fluent. Cranial Nerves are grossly intact. PSYCH: Alert, pleasant, affect is calm Results (Pain Clinic) Diagnostic Review CT Findings: CT OF THE THORACIC SPINE CLINICAL HISTORY: Fall. COMPARISON STUDY: No previous studies for comparison. TECHNIQUE: Helical axial images of the thoracic spine were obtained. Sagittal and coronal reconstructions were viewed. Automated exposure control was utilized for the study. A dose lowering technique was utilized adhering to the principles of ALARA. FINDINGS: Alignment of the thoracic spine is anatomic. Vertebral body heights are maintained. Note is made of extensive anterior osteophytosis of the mid to lower thoracic spine. There is an acute transverse fracture through anterior osteophytes at the T5-T6 level. No extension into the posterior elements is identified. There is no retropulsion. No significant loss of vertebral body height. This fracture is slightly extends into the superior endplate of T6. No additional acute thoracic spine fractures are present. No acute fractures within visualized portions of the posterior ribs. Incidentally noted left lobe thyroid nodule measures approximately 4 cm. This contains coarse calcifications. IMPRESSION: 1. Acute transverse nondisplaced fracture through anterior osteophytes at the T5-T6 level. Fracture slightly extends into the superior endplate of T6. No extension into the posterior elements identified. No retropulsion. Stability difficult to assess by CT given extensive anterior osteophytosis. This finding will be called/faxed to the ordering provider at time of dictation. 2. Extensive anterior osteophytosis of the mid to lower thoracic spine. This favors diffuse idiopathic skeletal hyperostosis. ACT 112: Negative or not required by law. Electronically signed by: Chai Morales M.D. 12/23/2021 7:[address] lumbar spine wo con CLINICAL HISTORY: fall . Low back pain COMPARISON STUDY: No previous studies for comparison. CT DOSE: TECHNIQUE: Standard CT of the Lumbar Spine was performed without IV contrast. A dose lowering technique was utilized adhering to the principles of ALARA. FINDINGS: Bones: Bones are osteopenic. There is no evidence for an acute fracture or m alalignment. The heights of the vertebral bodies are maintained. The vertebral bodies are in anatomic alignment. Disc spaces: There is moderate disc space narrowing from T12 through L3 with vacuum disc phenomena present. There is mild narrowing at L3-4 vacuum disc phenomena present. At L1-2, L2-3 and L3-4, there is diffuse bulging of the annulus present. Hypertrophic facet joint disease with thickening of ligamentum flavum is also present bilaterally. The combination of these findings produce segmental central canal stenosis at these levels. Facet joints: Hypertrophic facet joint disease also seen at the lower 2 disc space levels. Mild degenerative changes are present involving the SI joints bilaterally. Soft tissues: The prevertebral soft tissues are within normal limits. IMPRESSION: 1. Osteopenia with no acute osseous pathology. 2. Degenerative disc and degenerative facet joint disease with evidence for segmental central canal stenosis.
[2021-12-23] MEDS: HYDROCODONE/ACETAMOPHEN 5/325MG TAB PO PRN ×2 (09:40→17:47)
[2021-12-23 10:20] LABS: Appearance Urine Clear (Clear); Bacteria Urine Automated Negative (Negative); Bilirubin Urine Negative (Negative); Blood Urine Negative (Negative); Color Urine Yellow; Epithelial Cell Urine Auto >30 /lpf (0-5); Glucose Urine UA Negative (Negative); Ketones Urine Negative (Negative); Leukocyte Esterase Urine Negative (Negative); Nitrite Urine Negative (Negative); Protein Urine 2+ (Negative); RBC Urine Automated 0-4 /hpf (0-4); Specific Gravity Urine 1.012 (1.000-1.030); Urobilinogen Urine Negative (Negative)
[2021-12-23] MEDS: allopurinoL 100 MG TAB PO SCH (12:25)
[2021-12-23] MEDS: HYDROmorphone INJ 0.5 MG/0.5 ML SYR IV PRN ×3 (12:28→21:13)
--- NOTE | 2021-12-23 17:08 | Hospitalist Progress Note ---
Date of Service December 23, 2021 Assessment & Plan (1) Thoracic spine fracture: Plan: Worsening back and neck pain secondary to acute thoracic spine fracture after fall. Seen by pain management this morning and continued on lidocaine patch, Lyrica twice daily, Boomer 5/325 3 times daily and IV Dilaudid as needed for breakthrough. [facility] consulted and PT and OT also consulted. Patient with difficulties moving around the bed secondary to pain (2) Fall: Plan: Plan as above., PT OT (3) Hypertension: Plan: Chronic, stable, continue current therapy. (4) Obesity: Plan: Lifestyle modifications recommended. (5) DVT prophylaxis: Plan: Heparin Full code Disposition pending PT/OT and orthopedic recommendations. Continue aggressive pain management. DO Brian Doyle Hospitalist Admission and Anticipated Discharge Date Admission Date: December 23, 2021 Subjective 86-year-old female with multiple medical problems recently hospitalized presents for a fall at home and subsequent neck and back pain with ambulatory dysfunction. She still reports having pain in her neck and back causing her difficulties with moving. Review of Systems Review of Systems: All systems were reviewed and negative except as indicated above. Physical Exam Physical Exam: CONSTITUTIONAL: obese, vitals as above, generally in moderate distress wtih any movement. EYES: normal conjunctivae, no scleral icterus ENT: external ear and nose normal, MMM NECK: trachea midline, RESPIRATORY: clear to auscultation bilaterally, no crackles, rales or wheezes, normal respiratory effort CARDIOVASCULAR: regular rate and rhythm, S1 and 2 heard without murmurs, gallops or rubs, no JVD, no peripheral edema, CHEST: inspection of chest was normal GASTROINTESTINAL: normal bowel sounds, soft, nontender,ND, no guarding MUSCULOSKELETAL: strength 5/5 throughout, head is normocephalic and atraumatic, difficulty sitting up in bed or moving around 2/2 pain SKIN: warm and dry, NEUROLOGIC: CN 2-12 grossly intact, no sensory deficit, normal cognition, normal speech, no tremor, ,no gross focal deficits. PSYCHIATRIC: alert cooperative and oriented to person, place and time. Results & Data Results & Data ([facility]) Vital Signs (Past 12 Hours) Vital Signs Temp Pulse Pulse Pulse Resp BP BP 12/23/21 15:25 37.2 C 68 16 142/69 H 12/23/21 08:16 36.9 C 66 16 144/71 H 12/23/21 08:11 36.9 C 66 16 144/71 H 12/23/21 07:54 67 18 149/67 H 12/23/21 07:40 67 18 149/67 H 12/23/21 07:00 67 18 12/23/21 06:41 69 18 12/23/21 06:00 70 18 Pulse Ox 12/23/21 15:25 90 12/23/21 08:16 92 12/23/21 08:11 92 12/23/21 07:54 98 12/23/21 07:40 98 12/23/21 07:00 98 12/23/21 06:41 99 12/23/21 06:00 100 Laboratory Results Short CBC 12/22/21 12/23/21 Range/Units 22:43 07:09 WBC 21.68 H 16.88 H (4.8-10.8) K/uL Hgb 11.0 L 10.2 L (12.0-16.0) g/dL Hct 34.2 L 31.4 L (37-47) % Plt Count 318 283 (130-400) K/uL BMP 12/22/21 12/23/21 22:43 07:09 Sodium 138 139 Potassium 3.4 L 3.4 L Chloride 101 102 Carbon Dioxide 27 28 BUN 69 H 69 H Creatinine 2.36 H 2.32 H Glucose 81 83 Calcium 10.3 H 9.7 Cardiac Enzymes 12/22/21 Range/Units 22:43 Troponin I < 0.03 (0-0.04) ng/ml Liver Function 12/22/21 Range/Units 22:43 Total Bilirubin 1.0 (0.2-1.0) mg/dl AST 15 (13-39) U/L ALT 13 (7-52) U/L Alkaline Phosphatase 50 (34-104) U/L Albumin 4.4 (3.4-5.0) gm/dl Urine 12/23/21 Range/Units 09:50 Urine Color Yellow Urine Appearance Clear (Clear) Urine pH 5.0 (4.5-7.5) Ur Specific [place] 1.012 (1.000-1.030) Urine Protein 2+ H (Negative) Urine Glucose (UA) Negative (Negative) Diagnostic Findings Cervical Spine CT 12/22/21 22:42 CT OF THE CERVICAL SPINE WITHOUT CONTRAST CLINICAL HISTORY: fall COMPARISON STUDY: No previous studies for comparison. TECHNIQUE: Helical axial images of the cervical spine were obtained without IV contrast. Sagittal and coronal reconstructions were viewed. Automated exposure control was utilized for the study. A dose lowering technique was utilized adhering to the principles of ALARA. FINDINGS: Alignment of the cervical spine is anatomic. Vertebral body heights are maintained. No acute cervical spine fracture or subluxation is present. There is no prevertebral edema. Facet joints are intact. Moderate multilevel facet arthrosis is present. Disc spaces are preserved. Degenerative changes at the C1-C2 articulation are present. Partially visualized left lobe thyroid nodule measures at least 4.1 cm. This contains coarse calcifications. IMPRESSION: No acute cervical spine fracture or subluxation. ACT 112: Negative or not required by law. Electronically signed by: Chai Morales M.D. 12/23/2021 7:[address] 12/22/21 22:42 CT OF THE HEAD WITHOUT CONTRAST CLINICAL HISTORY: Fall. COMPARISON STUDY: Head CT March 17, 2021. TECHNIQUE: Helical axial images of the head were obtained without IV contrast. Automated exposure control was utilized for the study. A dose lowering technique was utilized adhering to the principles of ALARA. FINDINGS: No acute intracranial hemorrhage, midline shift or mass effect is present. The ventricular system is unremarkable. The basal cisterns are patent. No extra-axial collections are present. There are no findings to suggest acute dural sinus thrombosis or acute territorial infarct. Posterior scalp contusion is present. There is no acute femoral fracture. Visualized portions of the sinuses and mastoid air cells are clear. IMPRESSION: 1. No acute intracranial findings. 2. Posterior scalp contusion. No calvarial fracture. ACT 112: Negative or not required by law. Electronically signed by: Chai Morales M.D. 12/23/2021 7:[address] 12/22/21 22:42 CT lumbar spine wo con CLINICAL HISTORY: fall . Low back pain COMPARISON STUDY: No previous studies for comparison. CT DOSE: TECHNIQUE: Standard CT of the Lumbar Spine was performed without IV contrast. A dose lowering technique was utilized adhering to the principles of ALARA. FINDINGS: Bones: Bones are osteopenic. There is no evidence for an acute fracture or malalignment. The heights of the vertebral bodies are maintained. The vertebral bodies are in anatomic alignment. Disc spaces: There is moderate disc space narrowing from T12 through L3 with vacuum disc phenomena present. There is mild narrowing at L3-4 vacuum disc phenomena present. At L1-2, L2-3 and L3-4, there is diffuse bulging of the annulus present. Hypertrophic facet joint disease with thickening of ligamentum flavum is also present bilaterally. The combination of these findings produce segmental central canal stenosis at these levels. Facet joints: Hypertrophic facet joint disease also seen at the lower 2 disc space levels. Mild degenerative changes are present involving the SI joints bilaterally. Soft tissues: The prevertebral soft tissues are within normal limits. IMPRESSION: 1. Osteopenia with no acute osseous pathology. 2. Degenerative disc and degenerative facet joint disease with evidence for segmental central canal stenosis. ACT 112: Negative or not required by law. Electronically signed by: Phillip Amin M.D. 12/23/2021 7:43 AM Pelvis X-Ray 12/22/21 22:42 XR pelvis 1-2V routine CLINICAL HISTORY: fall COMPARISON: CT of the abdomen and pelvis December 12, 2021. FINDINGS: Sacroiliac joints and symphysis pubis are intact. No acute fracture is identified within the pelvis or hips. Moderate left and mild right hip osteoarthritis is present. IMPRESSION: No acute fracture within the pelvis or hips. ACT 112: Negative or not required by law. Electronically signed by: Chai oMrales M.D. 12/23/2021 7:[address] 12/22/21 22:42 CT OF THE THORACIC SPINE CLINICAL HISTORY: Fall. COMPARISON STUDY: No previous studies for comparison. TECHNIQUE: Helical axial images of the thoracic spine were obtained. Sagittal and coronal reconstructions were viewed. Automated exposure control was utilized for the study. A dose lowering technique was utilized adhering to the principles of ALARA. FINDINGS: Alignment of the thoracic spine is anatomic. Vertebral body heights are maintained. Note is made of extensive anterior osteophytosis of the mid to lower thoracic spine. There is an acute transverse fracture through anterior osteophytes at the T5-T6 level. No extension into the posterior elements is identified. There is no retropulsion. No significant loss of vertebral body height. This fracture is slightly extends into the superior endplate of T6. No additional acute thoracic spine fractures are present. No acute fractures within visualized portions of the posterior ribs. Incidentally noted left lobe thyroid nodule measures approximately 4 cm. This contains coarse calcifications. IMPRESSION: 1. Acute transverse nondisplaced fracture through anterior osteophytes at the T5-T6 level. Fracture slightly extends into the superior endplate of T6. No extension into the posterior elements identified. No retropulsion. Stability difficult to assess by CT given extensive anterior osteophytosis. This finding will be called/faxed to the ordering provider at time of dictation. 2. Extensive anterior osteophytosis of the mid to lower thoracic spine. This favors diffuse idiopathic skeletal hyperostosis. ACT 112: Negative or not required by law. Electronically signed by: Chai Morales M.D. 12/23/2021 7:46 AM Chest X-Ray 12/22/21 22:43 XR chest 1V portable CLINICAL HISTORY: Weakness. Fall. COMPARISON STUDY: Chest radiograph June 24, 2021. FINDINGS: No pneumothorax or pleural effusion is present. There is no consolidation or evidence for pulmonary edema. Moderate cardiomegaly is unchanged. IMPRESSION: No acute cardiopulmonary findings. Stable cardiomegaly. ACT 112: Negative or not required by law. Electronically signed by: Chai Morales M.D. 12/23/2021 7:46 AM Medications Administered Current Inpatient Medications Acetaminophen (Acetaminophen 325 Mg Tab) 650 mg PO Q4H PRN PRN Reason: mild pain/fever Stop: 01/22/22 06:34 Hydrocodone Bitart/Acetaminophen (Hydrocodone/Acetamophen 5/325mg Tab) 1 tab PO Q8H PRN PRN Reason: moderate pain Stop: 01/06/22 06:34 Last Admin: 12/23/21 09:40 Dose: 1 tab Documented by: Allopurinol (Allopurinol 100 Mg Tab) 200 mg PO DAILY@1200 [facility] Stop: 01/22/22 11:59 Last Admin: 12/23/21 12:25 Dose: 200 mg Documented by: Aspirin (Aspirin 81 Mg Ectab) 81 mg PO QAM [facility] Stop: 01/22/22 08:59 Last Admin: 12/23/21 08:32 Dose: 81 mg Documented by: Calcitriol (Calcitriol 0.25 Mcg Capsule) 0.25 mcg PO DAILY [facility] Stop: 01/22/22 08:59 Last Admin: 12/23/21 08:32 Dose: 0.25 mcg Documented by: Carvedilol (Carvedilol 25 Mg Tab) 25 mg PO BID [facility] Stop: 01/22/22 08:59 Last Admin: 12/23/21 08:33 Dose: 25 mg Documented by: Cyanocobalamin (Cyanocobalamin (B-12) 500 Mcg Tablet) 500 mcg PO QAM [facility] Stop: 01/22/22 08:59 Last Admin: 12/23/21 08:31 Dose: 500 mcg Documented by: Diclofenac Sodium (Diclofenac Sod 1% Gel 100 Gm Tube) 4 gm EXT QID PRN PRN Reason: Pain Stop: 01/22/22 06:34 Famotidine (Famotidine 20 Mg Tab) 20 mg PO QPM@1700 [facility] Stop: 01/22/22 16:59 Furosemide (Furosemide 40 Mg Tab) 40 mg PO Q48H [facility] Stop: 01/22/22 08:59 Last Admin: 12/23/21 08:31 Dose: 40 mg Documented by: Heparin Sodium (Porcine) (Heparin Sod 5,000 Unit/0.5 Ml Vial) 5,000 units SQ Q8 [facility] Stop: 01/22/22 06:34 Last Admin: 12/23/21 15:34 Dose: 5,000 units Documented by: Hydralazine HCl (Hydralazine Tab 50 Mg Tab) 100 mg PO TID [facility] Stop: 01/22/22 08:59 Last Admin: 12/23/21 15:30 Dose: 100 mg Documented by: Hydromorphone HCl (Hydromorphone Inj 0.5 Mg/0.5 Ml Syr) 0.5 mg IV Q3H PRN PRN Reason: Severe Pain Stop: 01/06/22 06:34 Last Admin: 12/23/21 15:33 Dose: 0.5 mg Documented by: Insulin Aspart (Insulin Aspart Per Unit) 0 units SC ACHS [facility] Stop: 01/22/22 07:29 Last Admin: 12/23/21 12:14 Dose: Not Given Documented by: Isosorbide Dinitrate (Isosorbide Dinitrate 20 Mg Tab) 20 mg PO 0700,1200,1700 [facility] Stop: 01/22/22 07:18 Last Admin: 12/23/21 12:24 Dose: 20 mg Documented by: Lidocaine (Lidocaine 5% 1 Patch) 1 patch TD 0900 [facility] Stop: 01/22/22 08:59 Last Admin: 12/23/21 08:30 Dose: 1 patch Documented by: Miscellaneous (Remove Lidoderm Patch) 1 ea N/A 0859 [facility] Stop: 01/22/22 08:58 Last Admin: 12/23/21 08:33 Dose: Not Given Documented by: Ondansetron HCl (Ondansetron Inj 2 Mg/Ml 2 Ml Vial) 4 mg IV Q6H PRN PRN Reason: Nausea Stop: 01/22/22 06:34 Ondansetron HCl (Ondansetron 4 Mg Od Tab) 4 mg PO Q6H PRN PRN Reason: nausea and vomiting Stop: 01/22/22 06:34 Polyethylene Glycol (Polyethylene (Miralax) 17 Gm Pack) 17 gm PO DAILY PRN PRN Reason: Constipation Stop: 01/22/22 06:34 Pregabalin (Pregabalin 25 Mg Cap) 25 mg PO BID [facility] Stop: 01/22/22 08:59 Last Admin: 12/23/21 08:38 Dose: 25 mg Documented by: Rosuvastatin Calcium (Rosuvastatin Calcium 10 Mg Tab) 10 mg PO QPM [facility] Stop: 01/22/22 20:59 Saccharomyces Boulardii (Saccharomyces Boulardii 250 Mg Cap) 250 mg PO QAM [facility] Stop: 01/22/22 08:59 Last Admin: 12/23/21 08:32 Dose: 250 mg Documented by: Simethicone (Simethicone 80 Mg Chew) 80 mg PO Q6H PRN PRN Reason: bloating Stop: 01/22/22 06:34 (1) Fall Encounter type: initial encounter Qualified Code(s): W19.XXXA - Unspecified fall, initial encounter
[2021-12-23] MEDS: FAMOTIDINE 20 MG TAB PO SCH (17:53)
[2021-12-23] MEDS: ACETAMINOPHEN 325 MG TAB PO PRN (21:16)
[2021-12-23] MEDS: ROSUVASTATIN CALCIUM 10 MG TAB PO SCH (21:17)
[2021-12-24] MEDS: HYDROmorphone INJ 0.5 MG/0.5 ML SYR IV PRN ×2 (05:34→09:17)
[2021-12-24] MEDS: ACETAMINOPHEN 325 MG TAB PO PRN (05:35)
--- NOTE | 2021-12-24 05:42 | Electrocardiogram Report ---
Test Reason : Blood Pressure : / mmHG Vent. Rate : 087 BPM Atrial Rate : 087 BPM P-R Int : 182 ms QRS Dur : 100 ms QT Int : 366 ms P-R-T Axes : 029 012 050 degrees QTc Int : 440 ms Normal sinus rhythm Normal ECG When compared with ECG of 13-JUN-2021 17:22, No significant change was found Confirmed by Andrew Mendes ([id number]) on 12/24/2021 5:42:01 AM Referred By: REFERRED SELF Confirmed By:Andrew Mendes
[2021-12-24] MEDS: POLYETHYLENE (MIRALAX) 17 GM PACK PO PRN (05:47)
[2021-12-24] MEDS: HEPARIN SOD 5,000 UNIT/0.5 ML VIAL SQ SCH ×3 (05:49→21:10)
[2021-12-24 05:50] LABS: Basophils # (auto) 0.03 K/uL (0-0.2); Basophils % (auto) 0.3 %; Eosinophils # (auto) 0.24 K/uL (0-0.5); Hematocrit (blood only) 30.3 % (37-47); Hemoglobin 9.7 g/dL (12.0-16.0); Immature Granulocytes # (auto) 0.03 K/uL (0.00-0.02); Immature Granulocytes % (auto) 0.3 %; Lymphocytes # (auto) 1.07 K/uL (1.2-3.4); Mean Corpuscular Hemoglobin 30.7 pg (25-34); Mean Corpuscular Volume 95.9 fL (80-100); Mean Platelet Volume 9.9 fL (7.4-10.4); Monocytes # (auto) 1.22 K/uL (0.11-0.59); Monocytes % (auto) 10.3 %; Neutrophils # (auto) 9.27 K/uL (1.4-6.5); Neutrophils % (auto) 78.1 %; Platelet Count 256 K/uL (130-400); RDW Coefficient of Variation 15.2 % (11.5-14.5); RDW Standard Deviation 53.5 fL (36.4-46.3); Red Blood Count 3.16 M/uL (4.2-5.4); White Blood Count 11.86 K/uL (4.8-10.8)
[2021-12-24] MEDS: ISOSORBIDE DINITRATE 20 MG TAB PO SCH ×3 (05:50→18:33)
[2021-12-24 06:20] LABS: BUN Creatinine Ratio 28.7 (10-20); Calcium 9.8 mg/dl (8.5-10.1); Creatinine Clr Calc Pharmacy 18.2 ml/min; Est GFR (African American) 19.3 ml/min; Est GFR (Non-African American) 16.6 ml/min; Magnesium 2.2 mg/dl (1.7-2.4); Potassium 3.8 mmol/L (3.5-5.1)
[2021-12-24 06:47] LABS: Estimated Average Glucose 126 mg/dl
--- NOTE | 2021-12-24 08:47 | Orthopedic Consultation ---
Date of Consultation December 24, 2021 Assessment & Plan (1) Thoracic spine fracture: I have reviewed the films and case with Dr. Templeton. There is no indication for acute surgical intervention at this time. I do not believe that she would tolerate bracing at this point. She is likely require continued pain control. She and GI DVT prophylaxis as well as mobilization physical therapy and likely placement to a group home facility for further care. She may need to see pain management as an outpatient for consideration of possible epidural injections to relieve some of the symptoms in her lower extremities. Given her age and comorbidities she is a poor surgical candidate. History of Present Illness Attending Physician: Constanza Overton, DO History of Present Illness Patient is an 86-year-old female who had a fall on 12/22/2021. At the time she was going to the commode when she went to get off her legs felt weak and she fell backwards. She is brought to the emergency room via ambulance for further evaluation. On presentation she had elements of neck pain pain between her shoulder blades lower back pain and weakness in her legs. She is admitted to the medical service. She had CT scans of the thoracic and lumbar spine. She has components consistent with DISH syndrome and there is a defect noted anteriorly at T5-6. She still has an admixture of pain between her shoulder blades as well as lower back pain. She states the weakness in her legs has developed over the last 2 to 3 weeks. She lives at home with her son who is gone most of the day. She denies any numbness or tingling in the lower extremities. She denies any paresthesias. Allergies Allergy/AdvReac Type Severity Reaction Status Date / Time No Known Allergies Allergy Verified 12/22/21 09:26 Home Medications Medication Instructions Recorded Confirmed Type aspirin 81 mg tablet,delayed 81 mg PO QAM 12/30/18 12/22/21 History release isosorbide dinitrate 20 mg tablet 20 mg PO TID 12/30/18 12/22/21 History rosuvastatin 10 mg tablet 10 mg PO QPM 12/30/18 12/22/21 History famotidine 20 mg tablet (Pepcid) 20 mg PO QPM@1700 11/18/19 12/22/21 History lidocaine 4 % topical patch 1 patch TOPICAL QAM 06/23/20 12/22/21 History (Salonpas (lidocaine)) insulin human U-100 NPH-regulr See Rx Instructions .ROUTE .COMPLEX 03/16/21 12/22/21 History 70-30 mix 100 unit/mL subcutaneous susp (Humulin 70/30 U-100 Insulin) allopurinol 100 mg tablet 200 mg PO DAILY@1200 03/17/21 12/22/21 History diclofenac sodium 1 % topical gel 4 g TOP QID PRN 03/17/21 12/22/21 History cyanocobalamin (vitamin B-12) 500 500 mcg PO QAM #30 tab 03/27/21 12/22/21 Rx mcg tablet furosemide 40 mg tablet 40 mg PO Q OTHER DAY 04/29/21 12/22/21 History carvedilol 25 mg tablet 25 mg PO BID 06/13/21 12/22/21 History hydralazine 100 mg tablet 100 mg PO TID 06/13/21 12/22/21 History simethicone 80 mg chewable tablet 80 mg PO Q6H PRN #30 tab 07/01/21 12/22/21 Rx (Mi-Acid Gas Relief (simethicone)) calcitriol 0.25 mcg capsule 0.25 mcg PO DAILY #90 cap 08/24/21 12/22/21 Rx Saccharomyces boulardii 250 mg 250 mg PO QAM 08/26/21 12/22/21 History capsule (Florastor) ondansetron 4 mg disintegrating 4 mg PO Q6H PRN #14 tab 11/25/21 12/22/21 Rx tablet hydrocodone 5 mg-acetaminophen 325 1 tab PO Q8H PRN #12 tab 12/17/21 12/22/21 Rx mg tablet polyethylene glycol 3350 17 gram 17 g PO BID PRN #14 ea 12/17/21 12/22/21 Rx oral powder packet (Miralax) pregabalin 25 mg capsule (Lyrica) 25 mg PO BID #60 cap 12/17/21 12/22/21 Rx Patient History Medical History CHF (congestive heart failure) follows with Kaushal Nieto PA-C Chronic back pain Chronic kidney disease (CKD), stage IV (severe) follows with Dr. Childress Diabetes mellitus, type 2 Diverticulitis large intestine hx Hearing deficit History of kidney stones HTN (hypertension) Hyperlipidemia Kidney cysts LEFT SIDE[place] [facility] [place]bid obesity with BMI of 40.0-44.9, adult Nocturnal hypoxemia On home oxygen therapy 2L N/C at HS only Osteoarthritis Surgical History H/O: hysterectomy History of arthroscopy of left knee History of bilateral tubal ligation [place] cardiac [place] [facility] [place] History of colonoscopy History of cystoscopy History of dilatation and curettage History of esophagogastroduodenoscopy (EGD) History of tooth extraction all teeth Hx of appendectomy Hx of cholecystectomy Nausea and vomiting after administration of anesthetic agent Family History Sister Family history of diabetes mellitus Sister Family history of diabetes mellitus Brother Family history of diabetes mellitus Family history of esophageal cancer Brother Family history of esophageal cancer Father Lung cancer Other No family history of adverse response to anesthesia No significant family history Social History Smoking Status: Never smoker Second Hand Exposure: No; Hx Alcohol Use: No Hx Substance Use: No Preferred Language: Vietnamese Communication Ability: Effective Diver Helper Required: No Beliefs That Will Affect Care: None marital status: / Current Living Situation: Family Current Living Situation Comment: WITH SON Feels Safe at Home: No Is there a partner from a previous relationship who is making you feel unsafe now?: No Safety Concerns: Feels Safe At This Time Assistive Devices: Glasses Physical Exam Physical Exam: Patient was seen bedside in room 375. She is alert and oriented. She is a good historian. Her abdomen soft nontender calves are supple nontender. Her lower extremity motor exam reveals no focal atrophy her strength 5 out of 5 to detailed muscle testing both lower extremities she is mildly tender in the lower back with logrolling. She is nontender palpation along the cervical thoracic and lumbar spine. She has full range motion of the hips and knees. Her gait was not observed Results & Data ([facility]) Vital Signs (Past 12 Hours) Vital Signs Temp Pulse Resp BP Pulse Ox 12/24/21 07:31 37.0 C 84 18 145/70 H 98 12/23/21 21:01 36.8 C 76 16 161/80 H 91 Diagnostic Findings Thoracic spine MRI performed reveals findings system DISH syndrome. At T5-6 there is a defect in the calcified anterior longitudinal ligament. Not appreciate any fractures extend to the middle or posterior columns. CT scan of the lumbar spine is also available for review. No acute fractures noted. She has multilevel degenerative changes with facet arthropathy. No acute findings are noted.
[2021-12-24] MEDS: INSULIN ASPART PER UNIT SC SCH ×4 (09:07→21:20)
[2021-12-24] MEDS: LIDOCAINE 5% 1 PATCH TD SCH (09:09)
[2021-12-24] MEDS: carvediloL 25 MG TAB PO SCH ×2 (09:10→21:09)
[2021-12-24] MEDS: PREGABALIN 25 MG CAP PO SCH ×2 (09:10→21:09)
[2021-12-24] MEDS: hydrALAZINE TAB 50 MG TAB PO SCH ×3 (09:10→21:10)
[2021-12-24] MEDS: CALCITRIOL 0.25 MCG CAPSULE PO SCH (09:11)
[2021-12-24] MEDS: SACCHAROMYCES BOULARDII 250 MG CAP PO SCH (09:11)
[2021-12-24] MEDS: ASPIRIN 81 MG ECTAB PO SCH (09:11)
[2021-12-24] MEDS: CYANOCOBALAMIN (B-12) 500 MCG TABLET PO SCH (09:11)
[2021-12-24] MEDS: allopurinoL 100 MG TAB PO SCH (13:02)
[2021-12-24] MEDS: DOCUSATE SODIUM 100 MG CAP PO SCH ×2 (13:02→21:09)
[2021-12-24] MEDS: ONDANSETRON 4 MG OD TAB PO PRN (14:58)
[2021-12-24] MEDS: HYDROCODONE/ACETAMOPHEN 5/325MG TAB PO PRN (14:58)
--- NOTE | 2021-12-24 16:50 | Hospitalist Progress Note ---
Date of Service December 24, 2021 Assessment & Plan (1) Thoracic spine fracture: Plan: Worsening back and neck pain secondary to acute thoracic spine fracture after fall Seen by pain management - continued on lidocaine patch, Lyrica twice daily, [place] 5/325 3 times daily and IV Dilaudid as needed for breakthrough. Ortho spine consulted - no indication for acute surgical intervention at this time.Recommend PT/OT, pain control, outpatient pain management for epidural injections (follows with Dr. Vinson) and SNF placement PT and OT consulted - have not yet evaluated patient (2) Fall: Plan: Plan as above., PT OT (3) Hypertension: Plan: Chronic, stable, continue current therapy. (4) Obesity: Plan: Lifestyle modifications recommended. (5) DVT prophylaxis: Plan: Heparin Full code Disposition pending PT/OT and orthopedic recommendations. Continue aggressive pain management. Admission and Anticipated Discharge Date Admission Date: December 23, 2021 Supervising Physician Co-Signing Physician Notes I have seen and examined the patient and have discussed the case with the provider above. I agree with the assessment and plan as stated with the following exceptions. Patient reports nausea without vomiting. Reports some vomiting earlier today from lying supine? Reports pain is controlled. We discussed how narcotics cause cause abdominal symptoms. She did not move well with PT today because her legs were weak. My physical exam is consistent with that above. Reviewed consult recommendations against surgery or bracing. Cont conservative management with medications, therapy and placement to SNF. DO Priya Overton Seen in [id number] in follow up for fall at home and subsequent neck and back pain with ambulatory dysfunction. Pain controlled this afternoon; resting comf ortably. Endorses nausea and one episode of vomiting earlier this afternoon when patient was placed in supine position for bed adjustment. N&V have since resolved. Last bowel movement was yesterday. Has concern regarding moving bowels so augmented bowel regimen. Also discussed importance of ambulating with PT and OT during admission. No F/C, headache, CP, SOB, abdominal pain, dysuria, diarrhea or constipation. Review of Systems Review of Systems: All systems were reviewed and negative except as indicated above. Physical Exam Physical Exam: Gen: WD/WN, NAD, sitting up in bed, obese, A&Ox3 HEENT: Normocephalic, atraumatic, conjunctivae moist, sclerae anicteric Lung: Clear to Auscultation bilaterally, no wheezes/rales/rhonchi Heart: Regular rate, regular rhythm, no murmurs, rubs, or gallops Abdomen: Soft, NT, ND +BS x 4 Extremities: TTP of cervical and thoracic spine. No deformities or edema noted. Movement limited 2/2 pain Skin: Warm, no rash Results & Data Results & Data ([facility]) Vital Signs (Past 12 Hours) Vital Signs Temp Pulse Pulse Resp BP Pulse Ox 12/24/21 13:16 64 155/72 H 12/24/21 13:10 64 64 155/72 H 98 12/24/21 07:31 37.0 C 84 18 145/70 H 98 Laboratory Results Short CBC 12/24/21 Range/Units 05:18 WBC 11.86 H (4.8-10.8) K/uL Hgb 9.7 L (12.0-16.0) g/dL Hct 30.3 L (37-47) % Plt Count 256 (130-400) K/uL BMP 12/24/21 05:18 Sodium 136 Potassium 3.8 Chloride 99 Carbon Dioxide 30 BUN 72 H Creatinine 2.51 H Glucose 162 H Calcium 9.8 Diagnostic Findings Cervical Spine CT 12/22/21 22:42 CT OF THE CERVICAL SPINE WITHOUT CONTRAST CLINICAL HISTORY: fall COMPARISON STUDY: No previous studies for comparison. TECHNIQUE: Helical axial images of the cervical spine were obtained without IV contrast. Sagittal and coronal reconstructions were viewed. Automated exposure control was utilized for the study. A dose lowering technique was utilized adhering to the principles of ALARA. FINDINGS: Alignment of the cervical spine is anatomic. Vertebral body heights are maintained. No acute cervical spine fracture or subluxation is present. There is no prevertebral edema. Facet joints are intact. Moderate multilevel facet arthrosis is present. Disc spaces are preserved. Degenerative changes at the C1-C2 articulation are present. Partially visualized left lobe thyroid nodule measures at least 4.1 cm. This contains coarse calcifications. IMPRESSION: No acute cervical spine fracture or subluxation. ACT 112: Negative or not required by law. Electronically signed by: Chai Morales M.D. 12/23/2021 7:[address] 12/22/21 22:42 CT OF THE HEAD WITHOUT CONTRAST CLINICAL HISTORY: Fall. COMPARISON STUDY: Head CT March 17, 2021. TECHNIQUE: Helical axial images of the head were obtained without IV contrast. Automated exposure control was utilized for the study. A dose lowering technique was utilized adhering to the principles of ALARA. FINDINGS: No acute intracranial hemorrhage, midline shift or mass effect is present. The ventricular system is unremarkable. The basal cisterns are patent. No extra-axial collections are present. There are no findings to suggest acute dural sinus thrombosis or acute territorial infarct. Posterior scalp contusion is present. There is no acute femoral fracture. Visualized portions of the sinuses and mastoid air cells are clear. IMPRESSION: 1. No acute intracranial findings. 2. Posterior scalp contusion. No calvarial fracture. ACT 112: Negative or not required by law. Electronically signed by: Chai Morales M.D. 12/23/2021 7:[address] 12/22/21 22:42 CT lumbar spine wo con CLINICAL HISTORY: fall . Low back pain COMPARISON STUDY: No previous studies for comparison. CT DOSE: TECHNIQUE: Standard CT of the Lumbar Spine was performed without IV contrast. A dose lowering technique was utilized adhering to the principles of ALARA. FINDINGS: Bones: Bones are osteopenic. There is no evidence for an acute fracture or malalignment. The heights of the vertebral bodies are maintained. The vertebral bodies are in anatomic alignment. Disc spaces: There is moderate disc space narrowing from T12 through L3 with vac uum disc phenomena present. There is mild narrowing at L3-4 vacuum disc phenomena present. At L1-2, L2-3 and L3-4, there is diffuse bulging of the annulus present. Hypertrophic facet joint disease with thickening of ligamentum flavum is also present bilaterally. The combination of these findings produce segmental central canal stenosis at these levels. Facet joints: Hypertrophic facet joint disease also seen at the lower 2 disc space levels. Mild degenerative changes are present involving the SI joints bilaterally. Soft tissues: The prevertebral soft tissues are within normal limits. IMPRESSION: 1. Osteopenia with no acute osseous pathology. 2. Degenerative disc and degenerative facet joint disease with evidence for segmental central canal stenosis. ACT 112: Negative or not required by law. Electronically signed by: Phillip Amin M.D. 12/23/2021 7:43 AM Pelvis X-Ray 12/22/21 22:42 XR pelvis 1-2V routine CLINICAL HISTORY: fall COMPARISON: CT of the abdomen and pelvis December 12, 2021. FINDINGS: Sacroiliac joints and symphysis pubis are intact. No acute fracture is identified within the pelvis or hips. Moderate left and mild right hip osteoarthritis is present. IMPRESSION: No acute fracture within the pelvis or hips. ACT 112: Negative or not required by law. Electronically signed by: Chai Morales M.D. 12/23/2021 7:[address] 12/22/21 22:42 CT OF THE THORACIC SPINE CLINICAL HISTORY: Fall. COMPARISON STUDY: No previous studies for comparison. TECHNIQUE: Helical axial images of the thoracic spine were obtained. Sagittal and coronal reconstructions were viewed. Automated exposure control was utilized for the study. A dose lowering technique was utilized adhering to the principles of ALARA. FINDINGS: Alignment of the thoracic spine is anatomic. Vertebral body heights are maintained. Note is made of extensive anterior osteophytosis of the mid to lower thoracic spine. There is an acute transverse fracture through anterior osteophytes at the T5-T6 level. No extension into the posterior elements is identified. There is no retropulsion. No significant loss of vertebral body height. This fracture is slightly extends into the superior endplate of T6. No additional acute thoracic spine fractures are present. No acute fractures within visualized portions of the posterior ribs. Incidentally noted left lobe thyroid nodule measures approximately 4 cm. This contains coarse calcifications. IMPRESSION: 1. Acute transverse nondisplaced fracture through anterior osteophytes at the T5-T6 level. Fracture slightly extends into the superior endplate of T6. No extension into the posterior elements identified. No retropulsion. Stability difficult to assess by CT given extensive anterior osteophytosis. This finding will be called/faxed to the ordering provider at time of dictation. 2. Extensive anterior osteophytosis of the mid to lower thoracic spine. This favors diffuse idiopathic skeletal hyperostosis. ACT 112: Negative or not required by law. Electronically signed by: Chai Morales M.D. 12/23/2021 7:46 AM Chest X-Ray 12/22/21 22:43 XR chest 1V portable CLINICAL HISTORY: Weakness. Fall. COMPARISON STUDY: Chest radiograph June 24, 2021. FINDINGS: No pneumothorax or pleural effusion is present. There is no consolidation or evidence for pulmonary edema. Moderate cardiomegaly is unchanged. IMPRESSION: No acute cardiopulmonary findings. Stable cardiomegaly. ACT 112: Negative or not required by law. Electronically signed by: Chai Morales M.D. 12/23/2021 7:46 AM (1) Fall Encounter type: initial encounter Qualified Code(s): W19.XXXA - Unspecified fall, initial encounter
[2021-12-24] MEDS: ROSUVASTATIN CALCIUM 10 MG TAB PO SCH (21:09)
[2021-12-24] MEDS: FAMOTIDINE 20 MG TAB PO SCH (21:09)
[2021-12-25] MEDS: HYDROCODONE/ACETAMOPHEN 5/325MG TAB PO PRN ×3 (00:39→21:10)
[2021-12-25] MEDS: HEPARIN SOD 5,000 UNIT/0.5 ML VIAL SQ SCH ×3 (06:19→21:13)
[2021-12-25] MEDS: ISOSORBIDE DINITRATE 20 MG TAB PO SCH ×3 (06:19→18:22)
[2021-12-25] MEDS: INSULIN ASPART PER UNIT SC SCH ×4 (08:43→21:10)
[2021-12-25] MEDS: PREGABALIN 25 MG CAP PO SCH ×2 (08:46→21:10)
[2021-12-25] MEDS: DOCUSATE SODIUM 100 MG CAP PO SCH ×2 (08:47→21:13)
[2021-12-25] MEDS: FUROSEMIDE 40 MG TAB PO SCH (08:47)
[2021-12-25] MEDS: SACCHAROMYCES BOULARDII 250 MG CAP PO SCH (08:48)
[2021-12-25] MEDS: CALCITRIOL 0.25 MCG CAPSULE PO SCH (08:48)
[2021-12-25] MEDS: LIDOCAINE 5% 1 PATCH TD SCH (08:48)
[2021-12-25] MEDS: carvediloL 25 MG TAB PO SCH ×2 (08:48→21:13)
[2021-12-25] MEDS: ASPIRIN 81 MG ECTAB PO SCH (08:48)
[2021-12-25] MEDS: hydrALAZINE TAB 50 MG TAB PO SCH ×3 (08:48→21:12)
[2021-12-25] MEDS: CYANOCOBALAMIN (B-12) 500 MCG TABLET PO SCH (08:48)
[2021-12-25] MEDS: ONDANSETRON 4 MG OD TAB PO PRN ×2 (11:22→21:10)
[2021-12-25] MEDS: allopurinoL 100 MG TAB PO SCH (12:41)
--- NOTE | 2021-12-25 14:40 | Hospitalist Progress Note ---
Date of Service December 25, 2021 Assessment & Plan (1) Thoracic spine fracture: Plan: Acute transverse nondisplaced fracture through anterior osteophytes at T5-T6 level- seen in CT. Worsening back and neck pain secondary to acute thoracic spine fracture after fall Seen by pain management - continued on lidocaine patch, Lyrica twice daily, [place] 5/325 3 times daily and IV Dilaudid as needed for breakthrough. Ortho spine consulted - poor surgical candidate, no indication for acute surgical intervention at this time.Recommended PT/OT, pain control, outpatient pain management for epidural injections (follows with Dr. Vinson) and SNF placement Seen by PT/OT- recommended inpatient rehab stay at discharge CM following for placement Will intensify bowel regimen for constipation (2) Fall: Plan: Plan as above., PT OT (3) Hypertension: Plan: Chronic, stable, continue current therapy. (4) Obesity: Plan: Lifestyle modifications recommended. (5) DVT prophylaxis: Plan: Heparin Full code Updated daughter over the phone Disposition- Pending placement. CM following. Admission and Anticipated Discharge Date Admission Date: December 23, 2021 Subjective States pain is okay with the pain medication. Had an episode of vomiting last night. Had small BM, last good one was prior to admission. States she will feel much better if she had a good BM. Attributes her symptoms from it. Eating okay. Physical Exam Physical Exam: General:Elderly female, lying in bed, not in acute distress, on room air HEENT: EOMI, PATRICIA, MMM Chest: Clear breath sounds bilaterally, no wheezes or crackles CVS: Regular rate and rhythm, normal heart sounds, no murmur Abdomen: Soft, non tender, not distended, normal bowel sounds Neuro: Awake, alert, oriented, conversing well, non focal Extremities: No cyanosis, clubbing or edema Results & Data Results & Data ([facility]) Vital Signs (Past 12 Hours) Vital Signs Temp Pulse Resp BP Pulse Ox 12/25/21 12:48 67 14 133/69 97 12/25/21 07:58 36.5 C 63 16 121/63 97 Medications Administered Current Inpatient Medications Acetaminophen (Acetaminophen 325 Mg Tab) 650 mg PO Q4H PRN PRN Reason: mild pain/fever Stop: 01/22/22 06:34 Last Admin: 12/24/21 05:35 Dose: 650 mg Documented by: Hydrocodone Bitart/Acetaminophen (Hydrocodone/Acetamophen 5/325mg Tab) 1 tab PO Q8H PRN PRN Reason: moderate pain Stop: 01/06/22 06:34 Last Admin: 12/25/21 11:21 Dose: 1 tab Documented by: Allopurinol (Allopurinol 100 Mg Tab) 200 mg PO DAILY@1200 [facility] Stop: 01/22/22 11:59 Last Admin: 12/25/21 12:41 Dose: 200 mg Documented by: Aspirin (Aspirin 81 Mg Ectab) 81 mg PO QAM [facility] Stop: 01/22/22 08:59 Last Admin: 12/25/21 08:48 Dose: 81 mg Documented by: Calcitriol (Calcitriol 0.25 Mcg Capsule) 0.25 mcg PO DAILY [facility] Stop: 01/22/22 08:59 Last Admin: 12/25/21 08:48 Dose: 0.25 mcg Documented by: Carvedilol (Carvedilol 25 Mg Tab) 25 mg PO BID [facility] Stop: 01/22/22 08:59 Last Admin: 12/25/21 08:48 Dose: 25 mg Documented by: Cyanocobalamin (Cyanocobalamin (B-12) 500 Mcg Tablet) 500 mcg PO QAM [facility] Stop: 01/22/22 08:59 Last Admin: 12/25/21 08:48 Dose: 500 mcg Documented by: Diclofenac Sodium (Diclofenac Sod 1% Gel 100 Gm Tube) 4 gm EXT QID PRN PRN Reason: Pain Stop: 01/22/22 06:34 Docusate Sodium (Docusate Sodium 100 Mg Cap) 200 mg PO BID [facility] Stop: 01/24/22 20:59 Famotidine (Famotidine 20 Mg Tab) 20 mg PO QPM@1700 [facility] Stop: 01/22/22 16:59 Last Admin: 12/24/21 21:09 Dose: 20 mg Documented by: Furosemide (Furosemide 40 Mg Tab) 40 mg PO Q48H [facility] Stop: 01/22/22 08:59 Last Admin: 12/25/21 08:47 Dose: 40 mg Documented by: Heparin Sodium (Porcine) (Heparin Sod 5,000 Unit/0.5 Ml Vial) 5,000 units SQ Q8 [facility] Stop: 01/22/22 06:34 Last Admin: 12/25/21 06:19 Dose: 5,000 units Documented by: Hydralazine HCl (Hydralazine Tab 50 Mg Tab) 100 mg PO TID [facility] Stop: 01/22/22 08:59 Last Admin: 12/25/21 08:48 Dose: 100 mg Documented by: Hydromorphone HCl (Hydromorphone Inj 0.5 Mg/0.5 Ml Syr) 0.5 mg IV Q3H PRN PRN Reason: Severe Pain Stop: 01/06/22 06:34 Last Admin: 12/24/21 09:17 Dose: 0.5 mg Documented by: Insulin Aspart (Insulin Aspart Per Unit) 0 units SC ACHS [facility] Stop: 01/22/22 07:29 Last Admin: 12/25/21 12:40 Dose: 4 units Documented by: Isosorbide Dinitrate (Isosorbide Dinitrate 20 Mg Tab) 20 mg PO 0700,1200,1700 [facility] Stop: 01/22/22 07:18 Last Admin: 12/25/21 12:41 Dose: 20 mg Documented by: Lidocaine (Lidocaine 5% 1 Patch) 1 patch TD 0900 [facility] Stop: 01/22/22 08:59 Last Admin: 12/25/21 08:48 Dose: 1 patch Documented by: Miscellaneous (Remove Lidoderm Patch) 1 ea N/A 0859 [facility] Stop: 01/22/22 08:58 Last Admin: 12/25/21 08:44 Dose: 1 ea Documented by: Ondansetron HCl (Ondansetron Inj 2 Mg/Ml 2 Ml Vial) 4 mg IV Q6H PRN PRN Reason: Nausea Stop: 01/22/22 06:34 Last Admin: 12/24/21 09:27 Dose: 4 mg Documented by: Ondansetron HCl (Ondansetron 4 Mg Od Tab) 4 mg PO Q6H PRN PRN Reason: nausea and vomiting Stop: 01/22/22 06:34 Last Admin: 12/25/21 11:22 Dose: 4 mg Documented by: Polyethylene Glycol (Polyethylene (Miralax) 17 Gm Pack) 17 gm PO DAILY PRN PRN Reason: Constipation Stop: 01/22/22 06:34 Last Admin: 12/24/21 05:47 Dose: 17 gm Documented by: Pregabalin (Pregabalin 25 Mg Cap) 25 mg PO BID [facility] Stop: 04/02/22 08:59 Last Admin: 12/25/21 08:46 Dose: 25 mg Documented by: Rosuvastatin Calcium (Rosuvastatin Calcium 10 Mg Tab) 10 mg PO QPM [facility] Stop: 01/22/22 20:59 Last Admin: 12/24/21 21:09 Dose: 10 mg Documented by: Saccharomyces Boulardii (Saccharomyces Boulardii 250 Mg Cap) 250 mg PO QAM [facility] Stop: 01/22/22 08:59 Last Admin: 12/25/21 08:48 Dose: 250 mg Documented by: Sennosides (Senna 8.6 Mg Tab) 17.2 mg PO QAM [facility] Stop: 01/24/22 14:29 Simethicone (Simethicone 80 Mg Chew) 80 mg PO Q6H PRN PRN Reason: bloating Stop: 01/22/22 06:34 (1) Fall Encounter type: initial encounter Qualified Code(s): W19.XXXA - Unspecified fall, initial encounter
[2021-12-25] MEDS: SENNA 8.6 MG TAB PO SCH (18:20)
[2021-12-25] MEDS: FAMOTIDINE 20 MG TAB PO SCH (18:31)
[2021-12-25] MEDS ORDERED: INSULIN GLARGINE SOLOSTAR 100 UNITS/ML 3 ML PEN SC SCH (21:00)
[2021-12-25] MEDS: ROSUVASTATIN CALCIUM 10 MG TAB PO SCH (21:12)
[2021-12-25] MEDS: INSULIN GLARGINE SOLOSTAR 100 UNITS/ML 3 ML PEN SC SCH (22:00)
[2021-12-26] MEDS: HEPARIN SOD 5,000 UNIT/0.5 ML VIAL SQ SCH ×3 (06:29→21:28)
[2021-12-26 07:49] LABS: BUN Creatinine Ratio 27.7 (10-20); Calcium 9.2 mg/dl (8.5-10.1); Creatinine Clr Calc Pharmacy 16.2 ml/min; Est GFR (African American) 16.8 ml/min; Est GFR (Non-African American) 14.5 ml/min; Potassium 3.7 mmol/L (3.5-5.1)
[2021-12-26] MEDS: CYANOCOBALAMIN (B-12) 500 MCG TABLET PO SCH (09:15)
[2021-12-26] MEDS: SACCHAROMYCES BOULARDII 250 MG CAP PO SCH (09:15)
[2021-12-26] MEDS: LIDOCAINE 5% 1 PATCH TD SCH (09:16)
[2021-12-26] MEDS: ASPIRIN 81 MG ECTAB PO SCH (09:16)
[2021-12-26] MEDS: carvediloL 25 MG TAB PO SCH ×2 (09:16→20:25)
[2021-12-26] MEDS: CALCITRIOL 0.25 MCG CAPSULE PO SCH (09:17)
[2021-12-26] MEDS: DOCUSATE SODIUM 100 MG CAP PO SCH ×2 (09:18→20:25)
[2021-12-26] MEDS: SENNA 8.6 MG TAB PO SCH (09:19)
[2021-12-26] MEDS: INSULIN ASPART PER UNIT SC SCH ×4 (09:30→21:27)
[2021-12-26] MEDS: INSULIN GLARGINE SOLOSTAR 100 UNITS/ML 3 ML PEN SC SCH ×2 (09:31→21:27)
[2021-12-26] MEDS: ISOSORBIDE DINITRATE 20 MG TAB PO SCH ×3 (09:36→18:05)
[2021-12-26] MEDS: PREGABALIN 25 MG CAP PO SCH (09:36)
[2021-12-26] MEDS: hydrALAZINE TAB 50 MG TAB PO SCH ×3 (10:40→20:24)
[2021-12-26] MEDS ORDERED: bisacodyL 10 MG SUPP PR ONE (12:30)
[2021-12-26] MEDS: allopurinoL 100 MG TAB PO SCH (12:56)
[2021-12-26] MEDS: SODIUM CHLORIDE 0.9% 500 ML IV SCH ×2 (13:29→20:15)
--- NOTE | 2021-12-26 13:51 | Hospitalist Progress Note ---
Date of Service December 26, 2021 Assessment & Plan (1) Thoracic spine fracture: (2) Diabetes mellitus with hyperglycemia: (3) Acute kidney injury superimposed on CKD: (4) Hyponatremia: (5) Hypertension: (6) Fall: (7) Obesity: (8) DVT prophylaxis: Plan: 1. Acute transverse nondisplaced fracture through anterior osteophytes at T5-T6 level due to fall- seen in the CT Worsening back and neck pain secondary to acute thoracic spine fracture after fall Seen by pain management - continued on lidocaine patch, Lyrica twice daily, [place] 5/325 3 times daily and IV Dilaudid as needed for breakthrough. Ortho spine consulted - poor surgical candidate, no indication for acute surgical intervention at this time. Recommended PT/OT, pain control, outpatient pain management for epidural injections (follows with Dr. Vinson) and SNF placement Seen by PT/OT- recommended inpatient rehab stay upon discharge Approved for [facility], likely discharge tomorrow Will give a suppository today for constipation 2. Diabetes mellitus type II with hyperglycemia-prandial hyperglycemia noted. Started on Lantus last night. Continue Lantus, NovoLog, will adjust further as indicated. Patient states she takes insulin at home, 70 units a.m. and 35 units p.m. and has episodes of hypoglycemia. Her A1c is 6%. Recommend less stringent control to avoid hypoglycemic episodes given her age and comorbidities. Follow- up with PCP 3. MISTI on CKD 4- Creatinine on admission 2.36, then 2.5 and today 2.8. Likely from her home dose of Lasix q48hr given yesterday, will hold for now, we will give gentle fluids, recheck in a.m. 4. Hyponatremia- Sodium down to 129, likely hypovolemia, will give fluids, recheck in a.m. 5. Essential hypertension- stable, continue Coreg, hydralazine 6. Constipation-persistent despite intensified bowel regimen. Will give suppository. DVT prophylaxis-Heparin Full code Updated daughter over the phone Disposition-likely discharge to [facility] tomorrow if labs stable to improving and symptomatically better Admission and Anticipated Discharge Date Admission Date: December 23, 2021 Subjective States she does not feel ready to get discharged today because of dizziness. Pain is controlled with medication. Still did not have a good BM yet, she is agreeable to suppository. No more nausea or vomiting. Oral intake okay. Physical Exam Physical Exam: General:Elderly female lying in bed, not in acute distress, on room air HEENT: EOMI, PATRICIA, MMM Chest: Clear breath sounds bilaterally, no wheezes or crackles CVS: Regular rate and rhythm, normal heart sounds, no murmur Abdomen: Soft, non tender, not distended, normal bowel sounds Neuro: Awake, alert, oriented, conversing well, non focal Extremities: No cyanosis, clubbing or edema Results & Data Results & Data ([facility]) Vital Signs (Past 12 Hours) Vital Signs Temp Pulse Resp BP Pulse Ox 12/26/21 10:38 120/69 12/26/21 09:13 65 113/65 12/26/21 07:00 36.8 C 61 16 137/63 96 (1) Fall Encounter type: initial encounter Qualified Code(s): W19.XXXA - Unspecified fall, initial encounter
[2021-12-26] MEDS: FAMOTIDINE 20 MG TAB PO SCH (18:00)
[2021-12-26] MEDS: ROSUVASTATIN CALCIUM 10 MG TAB PO SCH (20:24)
[2021-12-27] MEDS: POLYETHYLENE (MIRALAX) 17 GM PACK PO PRN (00:43)
[2021-12-27] MEDS: PREGABALIN 25 MG CAP PO SCH ×2 (01:53→07:54)
[2021-12-27] MEDS: SODIUM CHLORIDE 0.9% 500 ML IV SCH ×2 (03:16→07:49)
[2021-12-27] MEDS: ISOSORBIDE DINITRATE 20 MG TAB PO SCH ×2 (06:41→11:38)
[2021-12-27] MEDS: HEPARIN SOD 5,000 UNIT/0.5 ML VIAL SQ SCH (06:41)
[2021-12-27 06:55] LABS: Basophils # (auto) 0.01 K/uL (0-0.2); Basophils % (auto) 0.1 %; Eosinophils # (auto) 0.28 K/uL (0-0.5); Eosinophils % (auto) 3.2 %; Hematocrit (blood only) 28.7 % (37-47); Hemoglobin 9.2 g/dL (12.0-16.0); Immature Granulocytes # (auto) 0.01 K/uL (0.00-0.02); Immature Granulocytes % (auto) 0.1 %; Lymphocytes # (auto) 0.99 K/uL (1.2-3.4); Lymphocytes % (auto) 11.3 %; Mean Corpuscular Hemoglobin 30.2 pg (25-34); Mean Corpuscular Hgb Conc 32.1 g/dL (32-36); Mean Corpuscular Volume 94.1 fL (80-100); Mean Platelet Volume 9.6 fL (7.4-10.4); Monocytes # (auto) 0.88 K/uL (0.11-0.59); Monocytes % (auto) 10.1 %; Neutrophils # (auto) 6.57 K/uL (1.4-6.5); Neutrophils % (auto) 75.2 %; Platelet Count 263 K/uL (130-400); RDW Coefficient of Variation 14.9 % (11.5-14.5); Red Blood Count 3.05 M/uL (4.2-5.4); White Blood Count 8.74 K/uL (4.8-10.8)
[2021-12-27 07:08] LABS: BUN Creatinine Ratio 28.3 (10-20); Calcium 9.5 mg/dl (8.5-10.1); Est GFR (Non-African American) 16.4 ml/min; Magnesium 2.2 mg/dl (1.7-2.4); Phosphorus 3.8 mg/dl (2.5-4.9); Potassium 4.1 mmol/L (3.5-5.1)
[2021-12-27] MEDS: LIDOCAINE 5% 1 PATCH TD SCH (07:53)
[2021-12-27] MEDS: ASPIRIN 81 MG ECTAB PO SCH (07:54)
[2021-12-27] MEDS: DOCUSATE SODIUM 100 MG CAP PO SCH (07:55)
[2021-12-27] MEDS: hydrALAZINE TAB 50 MG TAB PO SCH (07:55)
[2021-12-27] MEDS: CYANOCOBALAMIN (B-12) 500 MCG TABLET PO SCH (07:56)
[2021-12-27] MEDS: CALCITRIOL 0.25 MCG CAPSULE PO SCH (07:56)
[2021-12-27] MEDS: SACCHAROMYCES BOULARDII 250 MG CAP PO SCH (07:56)
[2021-12-27] MEDS: SENNA 8.6 MG TAB PO SCH (07:57)
[2021-12-27] MEDS: carvediloL 25 MG TAB PO SCH (07:58)
[2021-12-27] MEDS: INSULIN GLARGINE SOLOSTAR 100 UNITS/ML 3 ML PEN SC SCH (09:08)
[2021-12-27] MEDS: INSULIN ASPART PER UNIT SC SCH ×2 (09:12→12:32)
--- NOTE | 2021-12-27 09:36 | Discharge Summary ---
Date of Service December 27, 2021 Admission HPI Per Admitting Provider HISTORY OF PRESENT ILLNESS: This is an 86-year-old female with past medical history significant for type 2 diabetes, chronic kidney disease stage IV, history of secondary hyperparathyroidism, hyperlipidemia, chronic rhinitis, nocturnal hypoxia, chronic diastolic CHF, mitral valve insufficiency, hypertension, left bundle-branch block, chronic right-sided congestive heart failure, vitamin D deficiency, GERD, osteoporosis, lumbar degenerative disk disease, history of dysplastic nevus. Currently lives at home with her son, was brought in by other son because she fell at home. She was trying to go to bathroom. She uses walker at home. She fell backwards and she hit her head, no loss of consciousness. Currently complaining a lot of back pain and leg pain. She says she is having ambulatory dysfunction because of pain. She is not able to walk. She is supposed to see Dr. Vinson for spinal injections on 12/23/2021. Any movement of the leg is causing a lot of pain. Sometimes the pain is shooting into her ribcage. Currently, no chest pain, no shortness of breath, no cough, no fever, no chills. Has some nausea. No vomiting, no abdominal pain. She had few episodes of diarrhea today because she is taking MiraLax daily. Denies any blood in the stool or black stools. Normal bladder movements. Denies any headache, neck pain. No blurred visions, no earache, no runny nose, no sore throat, no cough. Appetite is okay. Currently, hemodynamically stable. Admission Exam Per Admitting Provider PHYSICAL EXAMINATION: GENERAL: The patient is of moderate build, not in acute distress. VITAL SIGNS: Temperature 37.1, pulse 83, respiratory rate 18, blood pressure 143/55, oxygen 91% on room air. HEENT: Pupils equal, round and reactive to light. Oral mucosa moist. NECK: No JVD, no neck masses. CARDIOVASCULAR: S1 and S2 heard. Regular rate and rhythm. No murmur, no gallop. RESPIRATORY SYSTEM: Normal AP diameter. No accessory muscle use. No wheezing, no crackles. ABDOMEN: Soft, bowel sounds present, nontender. Mild discomfort. No distention. CENTRAL NERVOUS SYSTEM: Cranial nerves II-XII grossly intact, nonfocal. EXTREMITIES: Painful movements of the lower extremities. No edema, no erythema seen. Principal Diagnosis Acute transverse nondisplaced fracture through anterior osteophytes at T5-T6 level due to fall Ambulatory dysfunction BPPV Acute on Chronic CKD - 4 Hyponatremia 2/2 to hypovolemia - resolved Consitpation Discharge Exam Gen: WD/WN, only, obese, female, sitting up in bed, NAD, A&O x3 HEENT: Normocephalic, atraumatic, conjunctivae moist, sclerae anicteric, mucous membranes moist. Lung: Clear to Auscultation bilaterally, no wheezes/rales/rhonchi Heart: Regular rate, regular rhythm, no murmurs, rubs, or gallops Abdomen: Soft, mild tenderness to palpation right lower quadrant, no rebound, no guarding, no rigidity ND +BS x 4 Extremities: No edema Skin: Warm, no rash, negative turgor. Discharge Data Allergies Allergy/AdvReac Type Severity Reaction Status Date / Time No Known Allergies Allergy Verified 12/22/21 09:26 Consultations 12/23/21 02:20 ED Decision to Admit Stat 12/23/21 08:00 Consult Pain Management Routine 12/23/21 19:27 Consult Orthopedic Surgery Routine Ordered Studies Cervical Spine CT 12/22/21 22:42 CT OF THE CERVICAL SPINE WITHOUT CONTRAST CLINICAL HISTORY: fall COMPARISON STUDY: No previous studies for comparison. TECHNIQUE: Helical axial images of the cervical spine were obtained without IV contrast. Sagittal and coronal reconstructions were viewed. Automated exposure control was utilized for the study. A dose lowering technique was utilized adhering to the principles of ALARA. FINDINGS: Alignment of the cervical spine is anatomic. Vertebral body heights are maintained. No acute cervical spine fracture or subluxation is present. There is no prevertebral edema. Facet joints are intact. Moderate multilevel facet arthrosis is present. Disc spaces are preserved. Degenerative changes at the C1-C2 articulation are present. Partially visualized left lobe thyroid nodule measures at least 4.1 cm. This contains coarse calcifications. IMPRESSION: No acute cervical spine fracture or subluxation. ACT 112: Negative or not required by law. Electronically signed by: Chai Morales M.D. 12/23/2021 7:[address] 12/22/21 22:42 CT OF THE HEAD WITHOUT CONTRAST CLINICAL HISTORY: Fall. COMPARISON STUDY: Head CT March 17, 2021. TECHNIQUE: Helical axial images of the head were obtained without IV contrast. Automated exposure control was utilized for the study. A dose lowering technique was utilized adhering to the principles of ALARA. FINDINGS: No acute intracranial hemorrhage, midline shift or mass effect is present. The ventricular system is unremarkable. The basal cisterns are patent. No extra-axial collections are present. There are no findings to suggest acute dural sinus thrombosis or acute territorial infarct. Posterior scalp contusion is present. There is no acute femoral fracture. Visualized portions of the sinuses and mastoid air cells are clear. IMPRESSION: 1. No acute intracranial findings. 2. Posterior scalp contusion. No calvarial fracture. ACT 112: Negative or not required by law. Electronically signed by: Chai Morales M.D. 12/23/2021 7:[address] 12/22/21 22:42 CT lumbar spine wo con CLINICAL HISTORY: fall . Low back pain COMPARISON STUDY: No previous studies for comparison. CT DOSE: TECHNIQUE: Standard CT of the Lumbar Spine was performed without IV contrast. A dose lowering technique was utilized adhering to the principles of ALARA. FINDINGS: Bones: Bones are osteopenic. There is no evidence for an acute fracture or malalignment. The heights of the vertebral bodies are maintained. The vertebral bodies are in anatomic alignment. Disc spaces: There is moderate disc space narrowing from T12 through L3 with vacuum disc phenomena present. There is mild narrowing at L3-4 vacuum disc phenomena present. At L1-2, L2-3 and L3-4, there is diffuse bulging of the annulus present. Hypertrophic facet joint disease with thickening of ligamentum flavum is also present bilaterally. The combination of these findings produce segmental central canal stenosis at these levels. Facet joints: Hypertrophic facet joint disease also seen at the lower 2 disc space levels. Mild degenerative changes are present involving the SI joints bilaterally. Soft tissues: The prevertebral soft tissues are within normal limits. IMPRESSION: 1. Osteopenia with no acute osseous pathology. 2. Degenerative disc and degenerative facet joint disease with evidence for segmental central canal stenosis. ACT 112: Negative or not required by law. Electronically signed by: Phillip Amin M.D. 12/23/2021 7:43 AM Pelvis X-Ray 12/22/21 22:42 XR pelvis 1-2V routine CLINICAL HISTORY: fall COMPARISON: CT of the abdomen and pelvis December 12, 2021. FINDINGS: Sacroiliac joints and symphysis pubis are intact. No acute fracture is identified within the pelvis or hips. Moderate left and mild right hip osteoarthritis is present. IMPRESSION: No acute fracture within the pelvis or hips. ACT 112: Negative or not required by law. Electronically signed by: Chai Morales M.D. 12/23/2021 7:[address] 12/22/21 22:42 CT OF THE THORACIC SPINE CLINICAL HISTORY: Fall. COMPARISON STUDY: No previous studies for comparison. TECHNIQUE: Helical axial images of the thoracic spine were obtained. Sagittal and coronal reconstructions were viewed. Automated exposure control was utilized for the study. A dose lowering technique was utilized adhering to the principles of ALARA. FINDINGS: Alignment of the thoracic spine is anatomic. Vertebral body heights are maintained. Note is made of extensive anterior osteophytosis of the mid to lower thoracic spine. There is an acute transverse fracture through anterior osteophytes at the T5-T6 level. No extension into the posterior elements is identified. There is no retropulsion. No significant loss of vertebral body height. This fracture is slightly extends into the superior endplate of T6. No additional acute thoracic spine fractures are present. No acute fractures within visualized portions of the posterior ribs. Incidentally noted left lobe thyroid nodule measures approximately 4 cm. This contains coarse calcifications. IMPRESSION: 1. Acute transverse nondisplaced fracture through anterior osteophytes at the T5-T6 level. Fracture slightly extends into the superior endplate of T6. No extension into the posterior elements identified. No retropulsion. Stability difficult to assess by CT given extensive anterior osteophytosis. This finding will be called/faxed to the ordering provider at time of dictation. 2. Extensive anterior osteophytosis of the mid to lower thoracic spine. This favors diffuse idiopathic skeletal hyperostosis. ACT 112: Negative or not required by law. Electronically signed by: Chai Morales M.D. 12/23/2021 7:46 AM Chest X-Ray 12/22/21 22:43 XR chest 1V portable CLINICAL HISTORY: Weakness. Fall. COMPARISON STUDY: Chest radiograph June 24, 2021. FINDINGS: No pneumothorax or pleural effusion is present. There is no consolidation or evidence for pulmonary edema. Moderate cardiomegaly is unchanged. IMPRESSION: No acute cardiopulmonary findings. Stable cardiomegaly. ACT 112: Negative or not required by law. Electronically signed by: Chai Morales M.D. 12/23/2021 7:46 AM Diabetes Follow up A1C 6.0 on 12/24/21 Hospital Course (1) Thoracic spine fracture: (2) Diabetes mellitus with hyperglycemia: (3) Acute kidney injury superimposed on CKD: (4) Hyponatremia: (5) Hypertension: (6) Fall: (7) Obesity: (8) DVT prophylaxis: This is an 86-year-old female with past medical history significant for type 2 diabetes, chronic kidney disease stage IV, history of secondary h yperparathyroidism, hyperlipidemia, chronic rhinitis, nocturnal hypoxia, chronic diastolic CHF, mitral valve insufficiency, hypertension, left bundle-branch block, chronic right-sided congestive heart failure, vitamin D deficiency, GERD, osteoporosis, lumbar degenerative disk disease, history of dysplastic nevus. Currently lives at home with her son, was brought in by other son because she fell at home. She was trying to go to bathroom. She uses walker at home. She fell backwards and she hit her head, no loss of consciousness. On admission patient complained of a lot of back pain and inability to walk. She follows pain management, Dr. Vinson, for spinal injections at baseline. CT scan of thoracic spine revealed an acute transverse nondisplaced fracture through anterior osteophytes at T5-T6 level. She was seen and evaluated by orthopedic surgery who recommended no surgical intervention at this time and conservative management with PT, OT and pain control. She was seen and evaluated by pain management who recommends continuing lidocaine patch, Lyrica and as needed [place]. Further recommendations for outpatient epidural injections by Dr. Vinson can be arranged after discharge from rehab. Her hospital course was complicated with constipation. She received aggressive bowel regimen and on day of discharge had a very large bowel movement. She also had acute on chronic CKD st age IV. Baseline creatinine is 2.0-2.4. Her creatinine peaked to 2.8. On day of discharge was 2.5. It was felt to be secondary to oral Lasix as well as mild dehydration. Her home Lasix was held and she received gentle IV fluid. Her sodium was also mildly low at 129. This resolved with IV fluid and on day discharge was 136. She does have underlying T2DM. A1c on discharge was 6.0. Given age and fall feel this is likely too tightly controlled. Her 70/30 insulin is being discharged. She is encouraged to follow-up with PCP as outpatient for close management of insulin. She also complained of mild BPPV during hospital stay described as a, "spinning sensation." This did not affect her ability to ambulate. She was able to ambulate to and from bedside commode on day of discharge without assistance. On day of discharge she was in good spirits and plan is [facility]. She continues to complain of back pain. Her vital signs are otherwise stable. Attending addendum: Patient seen and examined at bedside. Chart reviewed. Discussed plan of care with MARIUM. Agree with her documentation above. Vahid Giles MD 12/27/21, 7:30 pm Current Inpatient Medications Acetaminophen (Acetaminophen 325 Mg Tab) 650 mg PO Q4H PRN PRN Reason: mild pain/fever Stop: 01/22/22 06:34 Last Admin: 12/24/21 05:35 Dose: 650 mg Documented by: Hydrocodone Bitart/Acetaminophen (Hydrocodone/Acetamophen 5/325mg Tab) 1 tab PO Q8H PRN PRN Reason: moderate pain Stop: 01/06/22 06:34 Last Admin: 12/25/21 21:10 Dose: 1 tab Documented by: Allopurinol (Allopurinol 100 Mg Tab) 200 mg PO DAILY@1200 [facility] Stop: 01/22/22 11:59 Last Admin: 12/26/21 12:56 Dose: 200 mg Documented by: Aspirin (Aspirin 81 Mg Ectab) 81 mg PO QAM [facility]MON[facility] Stop: 01/22/22 08:59 Last Admin: 12/27/21 07:54 Dose: 81 mg Documented by: Calcitriol (Calcitriol 0.25 Mcg Capsule) 0.25 mcg PO DAILY [facility]MON[facility] Stop: 01/22/22 08:59 Last Admin: 12/27/21 07:56 Dose: 0.25 mcg Documented by: Carvedilol (Carvedilol 25 Mg Tab) 25 mg PO BID [facility]MON[facility] Stop: 01/22/22 08:59 Last Admin: 12/27/21 07:58 Dose: 25 mg Documented by: Cyanocobalamin (Cyanocobalamin (B-12) 500 Mcg Tablet) 500 mcg PO QAM [facility]MON[facility] Stop: 01/22/22 08:59 Last Admin: 12/27/21 07:56 Dose: 500 mcg Documented by: Diclofenac Sodium (Diclofenac Sod 1% Gel 100 Gm Tube) 4 gm EXT QID PRN PRN Reason: Pain Stop: 01/22/22 06:34 Famotidine (Famotidine 20 Mg Tab) 20 mg PO QPM@1700 [facility] Stop: 01/22/22 16:59 Last Admin: 12/26/21 18:00 Dose: 20 mg Documented by: Furosemide (Furosemide 40 Mg Tab) 40 mg PO Q48H [facility] Stop: 01/22/22 08:59 Last Admin: 12/25/21 08:47 Dose: 40 mg Documented by: Heparin Sodium (Porcine) (Heparin Sod 5,000 Unit/0.5 Ml Vial) 5,000 units SQ Q8 [facility] Stop: 01/22/22 06:34 Last Admin: 12/27/21 06:41 Dose: 5,000 units Documented by: Hydralazine HCl (Hydralazine Tab 50 Mg Tab) 100 mg PO TID [facility] Stop: 01/22/22 08:59 Last Admin: 12/27/21 07:55 Dose: 100 mg Documented by: Hydromorphone HCl (Hydromorphone Inj 0.5 Mg/0.5 Ml Syr) 0.5 mg IV Q3H PRN PRN Reason: Severe Pain Stop: 01/06/22 06:34 Last Admin: 12/24/21 09:17 Dose: 0.5 mg Documented by: Insulin Aspart (Insulin Aspart Per Unit) 0 units SC ACHS [facility] Stop: 01/22/22 07:29 Last Admin: 12/27/21 09:12 Dose: 2 units Documented by: Insulin Glargine (Insulin Glargine Solostar 100 Units/Ml 3 Ml Pen) 10 units SC BID [facility] Stop: 01/24/22 20:59 Last Admin: 12/27/21 09:08 Dose: 10 units Documented by: Isosorbide Dinitrate (Isosorbide Dinitrate 20 Mg Tab) 20 mg PO 0700,1200,1700 [facility] Stop: 01/22/22 07:18 Last Admin: 12/27/21 06:41 Dose: 20 mg Documented by: Lidocaine (Lidocaine 5% 1 Patch) 1 patch TD 0900 [facility] Stop: 01/22/22 08:59 Last Admin: 12/27/21 07:53 Dose: 1 patch Documented by: Miscellaneous (Remove Lidoderm Patch) 1 ea N/A 0859 [facility] Stop: 01/22/22 08:58 Last Admin: 12/27/21 07:56 Dose: 1 ea Documented by: Ondansetron HCl (Ondansetron Inj 2 Mg/Ml 2 Ml Vial) 4 mg IV Q6H PRN PRN Reason: Nausea Stop: 01/22/22 06:34 Last Admin: 12/24/21 09:27 Dose: 4 mg Documented by: Ondansetron HCl (Ondansetron 4 Mg Od Tab) 4 mg PO Q6H PRN PRN Reason: nausea and vomiting Stop: 01/22/22 06:34 Last Admin: 12/25/21 21:10 Dose: 4 mg Documented by: Polyethylene Glycol (Polyethylene (Miralax) 17 Gm Pack) 17 gm PO DAILY PRN PRN Reason: Constipation Stop: 01/22/22 06:34 Last Admin: 12/27/21 00:43 Dose: 17 gm Documented by: Pregabalin (Pregabalin 25 Mg Cap) 25 mg PO BID [facility] Stop: 01/22/22 08:59 Last Admin: 12/27/21 07:54 Dose: 25 mg Documented by: Rosuvastatin Calcium (Rosuvastatin Calcium 10 Mg Tab) 10 mg PO QPM [facility] Stop: 01/22/22 20:59 Last Admin: 12/26/21 20:24 Dose: 10 mg Documented by: Saccharomyces Boulardii (Saccharomyces Boulardii 250 Mg Cap) 250 mg PO QAM [facility] Stop: 01/22/22 08:59 Last Admin: 12/27/21 07:56 Dose: 250 mg Documented by: Simethicone (Simethicone 80 Mg Chew) 80 mg PO Q6H PRN PRN Reason: bloating Stop: 01/22/22 06:34 Total Time Total Time Spent Total Time Spent (In Minutes): 60 minutes Total Time Includes: Examination of the Patient, Discharge Planning, Medication Reconciliation, Communication With Other Providers and Other Discharge Plan Discharge Items Patient Disposition: Transfer Inpatient Rehab Fac Reason For Visit: FALL Discharge Diagnosis: Acute transverse nondisplaced fracture through anterior osteophytes at T5-T6 level due to fall Ambulatory dysfunction BPPV Acute on Chronic CKD - 4 Hyponatremia 2/2 to hypovolemia - resolved Consitpation Condition on Discharge: Fair Activity: Resume your previous activity Bathing: No limitations Weightbearing: Full weightbearing Non-emergency contact: Primary Care Provider Call non-emergency contact if: you have any medication questions, your symptoms worsen, your pain is not controlled, your pain is worsening, your pain is unusual for you and you have a fever Follow-up/Referrals: Fox Ramirez MD [Primary Care Provider] - Diet: Carb Consistent or DM2 Diet Texture: Easy to Chew Addtl Attending Provider Instructions: MEDICATION CHANGES: New Medications: Meclizine 25mg every 8 hours as needed for dizziness. When discharged from Rehab recommend reducing dose of insulin to: Humulin 70/30 U-100 insulin 60 units in a.m. and 25 units in p.m. to reduce risk of low blood sugar. Continue all other medications as prescribed. SUMMARY OF TEST RESULTS: You were admitted to hospital secondary to worsening back and neck pain due to fall. You were found to have an acute transverse nondisplaced fracture through anterior osteophytes at T5-T6 level. You were seen and evaluated by pain management who recommends lidocaine patch, Lyrica twice daily and as needed [place]. You were seen and evaluated by orthopedic spine and there was no indication for acute surgical intervention. Recommendation was for acute rehab for PT and OT. You had constipation throughout hospital stay and on day of discharge finally had a bowel movement. You did have mild elevation in your kidney function as well as low sodium secondary to Lasix and dehydration. This resolved with IV fluids. PENDING TEST RESULTS: None RECOMMENDATIONS FOR FOLLOW-UP: Please follow up with Primary Care Provider upon discharge from rehab. Recommend discussing your insulin regimen with Primary Care Provider. Your A1C during hospital stay was 6.0. Although this is very good we have reduced your insulin regimen to reduce risk of low blood sugars and falls. Continue all medications as prescribed. Recommend CBC, BMP in 3 days of discharge. OTHER INSTRUCTIONS: Seek medical attention if you have: * temperature above 101 * chest pain or trouble breathing * abdominal pain, nausea, vomiting * diarrhea, dark stools or bloody stools * any unanswered questions or concerns Call 911 if symptoms are severe. Please take good care of yourself. It has been a pleasure taking care of you. Please take care of yourself. If you have any questions regarding your recent hospitalization please contact [facility] and request [facility] Renee @ [phone]. Marbella Chapman PA-C Pending Studies at Discharge: No Stand-Alone Forms: My [facility] Skilled Items Patient informed of condition?: Yes DNR: No Discharge Level of Care: Acute rehab Communicable Disease: No Discharge Prognosis: Stable Lines: None Urinary Catheter: No Medications and DC Order Prescriptions: New meclizine 25 mg tablet 25 mg PO TID PRN (Reason: dizziness) Qty: 1 RF: 0 Continued calcitriol 0.25 mcg capsule 0.25 mcg PO DAILY Qty: 90 RF: 3 ondansetron 4 mg tablet,disintegrating 4 mg PO Q6H PRN (Reason: nausea and vomiting) Qty: 14 RF: 0 lidocaine [Salonpas (lidocaine)] 4 % Adhesive Patch,Medicated 1 patch TOPICAL QAM RF: 0 aspirin 81 mg Tablet,Delayed Release (Dr/Ec) 81 mg PO QAM RF: 0 isosorbide dinitrate 20 mg tablet 20 mg PO TID RF: 0 rosuvastatin 10 mg tablet 10 mg PO QPM RF: 0 famotidine [Pepcid] 20 mg Tablet 20 mg PO QPM@1700 RF: 0 furosemide 40 mg tablet 40 mg PO Q OTHER DAY RF: 0 hydralazine 100 mg tablet 100 mg PO TID RF: 0 carvedilol 25 mg tablet 25 mg PO BID RF: 0 simethicone [Mi-Acid Gas Relief(simethicon)] 80 mg Tablet,Chewable 80 mg PO Q6H PRN (Reason: bloating) Qty: 30 RF: 0 Humulin 70/30 U-100 Insulin 100 unit/mL (70-30) suspension See Rx Instructions .ROUTE .COMPLEX RF: 0 allopurinol 100 mg tablet 200 mg PO DAILY@1200 RF: 0 diclofenac sodium 1 % gel 4 g TOP QID PRN (Reason: Pain) RF: 0 cyanocobalamin (vitamin B-12) 500 mcg Tablet 500 mcg PO QAM Qty: 30 RF: 0 Saccharomyces boulardii [Florastor] 250 mg capsule 250 mg PO QAM RF: 0 polyethylene glycol 3350 [Miralax] 17 gram Powder In Packet 17 g PO BID PRN (Reason: constipation) Qty: 14 RF: 0 hydrocodone-acetaminophen 5-325 mg Tablet 1 tab PO Q8H PRN (Reason: pain) Qty: 12 RF: 0 pregabalin [Lyrica] 25 mg Capsule 25 mg PO BID Qty: 60 RF: 0 Discharge Orders: Discharge Order (Routine); Ordered 12/27/21 Ordered By: Marbella Mckeon/Franco Patient Handouts: Managing Type 2 Diabetes Admission Data Admit Date/Time: 12/23/21 04:03 Attending Provider: Vahid Giles Admit Provider: Jorge Luis Beasley Primary Care Provider: Fox Ramirez Other Providers: Tigre Martinez ; Paul Templeton ; Tatyana Valencia ; [facility] ; Constanza Overton ; Marbella Chapman
[2021-12-27] MEDS: ACETAMINOPHEN 325 MG TAB PO PRN (10:39)
[2021-12-27] MEDS: allopurinoL 100 MG TAB PO SCH (11:38)
== END 2021-12-27 15:26 | DRG 543 ==
LOC: ED 22:31 → EDINP 12-23 04:03 → SUATTDRO 12-23 04:03 → 3N 12-23 07:40

== ENCOUNTER 2022-04-26 00:12 | Inpatient (IN) ==
[2022-04-26] MEDS ORDERED: ALBUT/IPRATROP 3MG/0.5MG NEB 3 ML VIAL NEB STA (00:19)
--- NOTE | 2022-04-26 00:23 | Emergency Department Note ---
History of Present Illness General Chief complaint: Fall Stated complaint: FALL/HIT HEAD History of Present Illness This 86-year-old who takes aspirin presents to the ER complaining of flulike illness for the past few days who got lightheaded, fell and hit her head. Location: Generalized Quality: Weak and ill Severity: Moderate Duration: Past few days Timing: Started Context: Patient collapsed tonight and called EMS Modifying factors: better with rest; worse with activity Patient is vaccinated for COVID. Patient complains of cough, congestion, body aches and pains, generalized illness and weakness for the past few days. Patient states she stood up got lightheaded and fell. She hit her head and is on aspirin. Patient denies chest pain, abdominal pain, vomiting, diarrhea. Home Medications Medication Instructions Recorded Confirmed Type aspirin 81 mg tablet,delayed 81 mg PO QAM 12/30/18 04/26/22 History release isosorbide dinitrate 20 mg tablet 20 mg PO TID 12/30/18 04/26/22 History rosuvastatin 10 mg tablet 10 mg PO HS 12/30/18 04/26/22 History famotidine 20 mg tablet (Pepcid) 20 mg PO QPM@1700 11/18/19 04/26/22 History lidocaine 4 % topical patch 1 patch TOPICAL DAILY PRN 06/23/20 04/26/22 History (Salonpas (lidocaine)) insulin human U-100 NPH-regulr See Rx Instructions .ROUTE .COMPLEX 03/16/21 04/26/22 History 70-30 mix 100 unit/mL subcutaneous susp (Humulin 70/30 U-100 Insulin) diclofenac sodium 1 % topical gel 4 g TOP QID PRN 03/17/21 04/26/22 History cyanocobalamin (vitamin B-12) 500 500 mcg PO QAM #30 tab 03/27/21 04/26/22 Rx mcg tablet carvedilol 25 mg tablet 25 mg PO BID 06/13/21 04/26/22 History hydralazine 100 mg tablet 100 mg PO TID 06/13/21 04/26/22 History Saccharomyces boulardii 250 mg 250 mg PO QAM 08/26/21 04/26/22 History capsule (Florastor) ondansetron 4 mg disintegrating 4 mg PO Q6H PRN #14 tab 11/25/21 04/26/22 Rx tablet furosemide 40 mg tablet 40 mg PO QAM tab 03/28/22 04/26/22 History acetaminophen 500 mg tablet 1,000 mg PO AMHS 04/26/22 04/26/22 History (Tylenol Extra Strength) allopurinol 100 mg tablet 200 mg PO QPM 04/26/22 04/26/22 History calcitriol 0.25 mcg capsule 0.25 mcg PO QAM 04/26/22 04/26/22 History pregabalin 25 mg capsule (Lyrica) 25 mg PO AMHS 04/26/22 04/26/22 History simethicone 80 mg chewable tablet 80 mg PO DIRECTED PRN 04/26/22 04/26/22 History Allergies Allergy/AdvReac Type Severity Reaction Status Date / Time No Known Allergies Allergy Verified 04/26/22 01:23 Past Med/Surg History Medical History CHF (congestive heart failure) follows with Kaushal Nieto PA-C Chronic back pain Chronic kidney disease (CKD), stage IV (severe) follows with Dr. Childress Diabetes mellitus, type 2 Diverticulitis large intestine hx Hearing deficit History of kidney stones HTN (hypertension) Hyperlipidemia Kidney cysts LEFT SIDE>BEING MONITORED BY UROLOGY [facility] Morbid obesity with BMI of 40.0-44.9, adult Nocturnal hypoxemia On home oxygen therapy 2L N/C at HS only Osteoarthritis Surgical History H/O: hysterectomy History of arthroscopy of left knee History of bilateral tubal ligation History of cardiac cath ?2009--@ [facility] [place]--no stents History of colonoscopy History of cystoscopy History of dilatation and curettage History of esophagogastroduodenoscopy (EGD) History of tooth extraction all teeth Hx of appendectomy Hx of cholecystectomy Nausea and vomiting after administration of anesthetic agent Family History Sister Family history of diabetes mellitus Sister Family history of diabetes mellitus Brother Family history of diabetes mellitus Family history of esophageal cancer Brother Family history of esophageal cancer Father Lung cancer Other No family history of adverse response to anesthesia No significant family history Social History Smoking Status: Never smoker Second Hand Exposure: No; Hx Alcohol Use: No Hx Substance Use: No Preferred Language: Khmer Communication Ability: Effective [employer] Required: No Beliefs That Will Affect Care: None marital status: / Current Living Situation: Family Current Living Situation Comment: WITH SON Feels Safe at Home: Yes Assistive Devices: Denture - Upper, Denture - Lower, Glasses, Oxygen - at Night and Walker Review of Systems A total of 10 systems reviewed and were otherwise negative Physical Exam Vital Signs Vital Signs - 24 hr 04/26/22 00:10 04/26/22 00:32 04/26/22 00:38 Temperature 37.5 C Temperature Source Oral Pulse Rate 83 84 Pulse Rate from SpO2 Sensor Respiratory Rate 18 27 H 18 Respiratory Effort / Characteristics Non-Labored Spontaneous Non-Labored Spontaneous Respiratory Depth Normal Respiratory Pattern Regular Blood Pressure 199/74 H Blood Pressure Mean 115 Pulse Oximetry 92 93 Oxygen Delivery Method Nasal Cannula Nasal Cannula Oxygen Flow Rate 2 2 Sepsis Recent Fever Within 48 Hours Yes Sepsis New/Unexplained Change in Mental Status No Sepsis Action Taken by Nursing No Action Required 04/26/22 01:16 04/26/22 01:17 04/26/22 01:30 Temperature Temperature Source Pulse Rate Pulse Rate from SpO2 Sensor 87 86 87 Respiratory Rate Respiratory Effort / Characteristics Respiratory Depth Respiratory Pattern Blood Pressure 172/68 H Blood Pressure Mean 102 Pulse Oximetry 95 96 98 Oxygen Delivery Method Oxygen Flow Rate Sepsis Recent Fever Within 48 Hours Sepsis New/Unexplained Change in Mental Status Sepsis Action Taken by Nursing 04/26/22 01:45 04/26/22 01:49 Temperature Temperature Source Pulse Rate Pulse Rate from SpO2 Sensor 87 89 Respiratory Rate Respiratory Effort / Characteristics Respiratory Depth Respiratory Pattern Blood Pressure 192/81 H Blood Pressure Mean 118 Pulse Oximetry 96 97 Oxygen Delivery Method Oxygen Flow Rate Sepsis Recent Fever Within 48 Hours Sepsis New/Unexplained Change in Mental Status Sepsis Action Taken by Nursing VITALS: Vitals are noted on the nurse's note and reviewed by myself. Vital signs reviewed. GENERAL: Pleasant elderly female mildly ill-appearing SKIN: The skin was without rashes, erythema, edema, or bruising. There is no tenting of the skin. Capillary reflex less than 2 seconds. HEAD: Normocephalic right parietal hematoma EARS: External auditory canals clear, EYES: Pupils equal round and reactive to light and accommodation. Conjunctivae without injection, sclerae without icterus. Extraocular movements intact. NOSE: Patent, turbinates without inflammation or discharge. MOUTH: Mucous membranes moist. Pharynx without erythema or exudate. Uvula midline. Airway patent. Tongue does not deviate. NECK: Supple without nuchal rigidity. No lymphadenopathy. No thyromegaly. Cervical spine is nontender. No JVD. HEART: Regular rate and rhythm LUNGS: Clear to auscultation bilaterally without wheezes, rales or rhonchi. No retractions or accessory muscle use. ABDOMEN: Positive bowel sounds x 4. Normal tympanic percussion. Soft, nontender, without masses or organomegaly. Head sign negative. No guarding or rebound tenderness. No CVA tenderness MUSCULOSKELETAL: No muscle atrophy, erythema, or edema noted. NEURO: Patient was alert and oriented to person place and time. Normal sensation to light and sharp touch. No focal neurological deficits. Medical Decision Making Medical Records Attestation: I reviewed the patient's medical records. Home Medications Current Medication List: was personally reviewed by me Laboratory Data Attestation: I reviewed the patient's lab results. Result diagrams: 04/26/22 00:20 04/26/22 00:20 Lab Results 04/26/22 04/26/22 04/26/22 Range/Units 00:20 00:20 00:20 WBC 11.01 H (4.8-10.8) K/uL RBC 3.03 L (4.2-5.4) M/uL Hgb 9.2 L (12.0-16.0) g/dL Hct 28.7 L (37-47) % MCV 94.7 (80-100) fL MCH 30.4 (25-34) pg MCHC 32.1 (32-36) g/dL RDW Std Deviation 49.2 H (36.4-46.3) fL RDW Coeff of Noemy 14.3 (11.5-14.5) % Plt Count 265 (130-400) K/uL MPV 9.2 (7.4-10.4) fL Immature Gran % (Auto) 0.5 % Neut % (Auto) 78.6 % Lymph % (Auto) 4.9 % Kleberg % (Auto) 14.3 % Eos % (Auto) 1.5 % Baso % (Auto) 0.2 % Neut # (Auto) 8.66 H (1.4-6.5) K/uL Lymph # (Auto) 0.54 L (1.2-3.4) K/uL Kleberg # (Auto) 1.57 H (0.11-0.59) K/uL Eos # (Auto) 0.16 (0-0.5) K/uL Baso # (Auto) 0.02 (0-0.2) K/uL Immature Gran # (Auto) 0.06 H (0.00-0.02) K/uL PT 10.7 (9.0-12.0) Seconds INR 1.0 (0.9-1.1) APTT 39.0 H (21.0-31.0) Seconds PTT Ratio 1.4 Sodium 138 (136-145) mmol/L Potassium 3.7 (3.5-5.1) mmol/L Chloride 100 (98-107) mmol/L Carbon Dioxide 27 (21-32) mmol/L Anion Gap 11 (3-11) BUN 69 H (6-23) mg/dl Creatinine 3.28 H (0.6-1.2) mg/dl Est Cr Clr Drug Dosing 14.5 ml/min Est GFR ( Amer) 14.0 ml/min Est GFR (Non-Af Amer) 12.0 ml/min BUN/Creatinine Ratio 21.0 H (10-20) Glucose 146 H (70-99(Fasting)) mg/dl Lactate (0.4-2.0) mmol/L Calcium 10.2 H (8.5-10.1) mg/dl Magnesium 2.2 (1.7-2.4) mg/dl Total Bilirubin 1.3 H (0.2-1.0) mg/dl AST 19 (13-39) U/L ALT 12 (7-52) U/L Alkaline Phosphatase 55 (34-104) U/L Troponin I High Sens 13.2 (0-14) pg/ml Total Protein 6.7 (6.0-8.3) gm/dl Albumin 4.1 (3.4-5.0) gm/dl Globulin 2.6 (2.5-4.0) gm/dl Albumin/Globulin Ratio 1.6 (0.9-2) Adenovirus (PCR) (NotDetected) B. pertussis DNA (PCR) (NotDetected) B.parapertussis DNA PCR (NotDetected) C. pneumoniae DNA (PCR) (NotDetected) Coronavirus OC43 (PCR) (NotDetected) Coronavirus HKU1 (PCR) (NotDetected) Coronavirus 229E (PCR) (NotDetected) SARS-CoV-2 (PCR) (NotDetected) Coronavirus NL63 (PCR) (NotDetected) Human Metapneumovir PCR (NotDetected) Influenza Type A (PCR) (NotDetected) Influenza Type B (PCR) (NotDetected) M. pneumoniae (PCR) (NotDetected) Parainfluenza 1 (PCR) (NotDetected) Parainfluenza 2 (PCR) (NotDetected) Parainfluenza 3 (PCR) (NotDetected) Parainfluenza 4 (PCR) (NotDetected) RSV (PCR) (NotDetected) Entero/Rhino (PCR) (NotDetected) 04/26/22 04/26/22 Range/Units 00:20 00:40 WBC (4.8-10.8) K/uL RBC (4.2-5.4) M/uL Hgb (12.0-16.0) g/dL Hct (37-47) % MCV (80-100) fL MCH (25-34) pg MCHC (32-36) g/dL RDW Std Deviation (36.4-46.3) fL RDW Coeff of Noemy (11.5-14.5) % Plt Count (130-400) K/uL MPV (7.4-10.4) fL Immature Gran % (Auto) % Neut % (Auto) % Lymph % (Auto) % Kleberg % (Auto) % Eos % (Auto) % Baso % (Auto) % Neut # (Auto) (1.4-6.5) K/uL Lymph # (Auto) (1.2-3.4) K/uL Kleberg # (Auto) (0.11-0.59) K/uL Eos # (Auto) (0-0.5) K/uL Baso # (Auto) (0-0.2) K/uL Immature Gran # (Auto) (0.00-0.02) K/uL PT (9.0-12.0) Seconds INR (0.9-1.1) APTT (21.0-31.0) Seconds PTT Ratio Sodium (136-145) mmol/L Potassium (3.5-5.1) mmol/L Chloride (98-107) mmol/L Carbon Dioxide (21-32) mmol/L Anion Gap (3-11) BUN (6-23) mg/dl Creatinine (0.6-1.2) mg/dl Est Cr Clr Drug Dosing ml/min Est GFR ( Amer) ml/min Est GFR (Non-Af Amer) ml/min BUN/Creatinine Ratio (10-20) Glucose (70-99(Fasting)) mg/dl Lactate 1.0 (0.4-2.0) mmol/L Calcium (8.5-10.1) mg/dl Magnesium (1.7-2.4) mg/dl Total Bilirubin (0.2-1.0) mg/dl AST (13-39) U/L ALT (7-52) U/L Alkaline Phosphatase (34-104) U/L Troponin I High Sens (0-14) pg/ml Total Protein (6.0-8.3) gm/dl Albumin (3.4-5.0) gm/dl Globulin (2.5-4.0) gm/dl Albumin/Globulin Ratio (0.9-2) Adenovirus (PCR) Not Detected (NotDetected) B. pertussis DNA (PCR) Not Detected (NotDetected) B.parapertussis DNA PCR Not Detected (NotDetected) C. pneumoniae DNA (PCR) Not Detected (NotDetected) Coronavirus OC43 (PCR) Not Detected (NotDetected) Coronavirus HKU1 (PCR) Not Detected (NotDetected) Coronavirus 229E (PCR) Not Detected (NotDetected) SARS-CoV-2 (PCR) DETECTED A* (NotDetected) Coronavirus NL63 (PCR) Not Detected (NotDetected) Human Metapneumovir PCR Not Detected (NotDetected) Influenza Type A (PCR) Not Detected (NotDetected) Influenza Type B (PCR) Not Detected (NotDetected) M. pneumoniae (PCR) Not Detected (NotDetected) Parainfluenza 1 (PCR) Not Detected (NotDetected) Parainfluenza 2 (PCR) Not Detected (NotDetected) Parainfluenza 3 (PCR) Not Detected (NotDetected) Parainfluenza 4 (PCR) Not Detected (NotDetected) RSV (PCR) Not Detected (NotDetected) Entero/Rhino (PCR) Not Detected (NotDetected) Imaging Data Attestation: I personally reviewed and interpreted this imaging study as follows: MDM Narrative Prior records/ancillary studies reviewed. Triage Nursing notes reviewed. Additional history obtained from EMS. The patient's history was concerning for fever. Differential diagnosis: Etiologies such as viral syndrome, otitis, pharyngitis, pneumonia, influenza, meningitis, urinary tract infection, sepsis, bacteremia, as well as others were entertained. Physical examination: As above ER treatment provided: An order was placed for continuous cardiac monitoring. The monitor shows a rate of 60-1 50 with a sinus rhythm. Tylenol, Zosyn as chest x-ray was concerning for pneumonia prior to the bio fire coming back On reassessment the patient felt better. Diagnostics interpreted by me: ECG: Ordered for passing out EKG: Normal sinus, normal intervals, no acute ST-T wave changes. Impression normal sinus rhythm interpreted by myself I think arrhythmia is unlikely. EKG shows normal sinus rhythm with no interval abnormalities such as QT prolongation or WPW. There are no findings to suggest Brugada syndrome. Cardiac monitoring in the emergency department reveals no tachycardic or bradycardic dysrhythmia. Hypertrophic cardiomyopathy was considered but there are no clear historical elements pointing toward this. EKG is not suggestive. The QRS voltage is not extremely large The labs revealed leukocytosis, positive COVID Elevated creatinine from baseline Imaging studies: Preliminary Findings Only See Final Report For Complete Findings CT C SPINE: No evidence of fracture or malalignment. Normal cervical lordosis. Diffuse osteoporosis. Degenerative arthrosis at anterior C1-C2 articulation. Well preserved disc height. Mild central canal stenosis or neuroforaminal encroachment. Mild atherosclerotic disease involving the carotid arteries. Large left thyroid lobe with calcifications versus calcified mass measuring 2 4.1 cm, further evaluation with ultrasound the nonacute setting may help if clinically indicated. Radiologist: Indigo Langston MD Preliminary Findings Only See Final Report For Complete Findings CT HEAD: Comparison: None. No ICH, mass effect or edema. No evidence of acute cortical stroke. Periventricular small vessel ischemic change. Mild generalized brain atrophy. There is posterior scalp swelling/hematoma along the right parietal bone. No skull fracture. Mild mucosal thickening of the right frontal sinus, likely sequela of sinusitis. Remainder of the paranasal sinuses and mastoids are clear. E Radiologist: Indigo Langston MD Chest x-ray concerning for right lower lobe pneumonia per my interpretation Consultation: A consultation was placed with the hospitalist. The case was discussed and diagnostics were reviewed. The patient was evaluated in the ER for further treatment. This appears to be consistent with pneumonia who passed out with head injury. Medicine was consulted. She will be evaluated for admission. Creatinine slightly higher than baseline. By the evaluation outlined above emergent etiologies such as otitis, pharyngitis, meningitis, urinary tract infection, sepsis, bacteremia, as well as others were deemed relatively unlikely. The pt informed about the findings as listed above. All questions were answered and pleased with the treatment. The chart was completed utilizing Aviate Speech voice recognition software. Grammatical errors, random word insertions, pronoun errors, and incomplete sentences are an occassional consequence of this system due to software limitations, ambient noise, and hardware issues. Any formal questions or c oncerns about the content, text, or information contained within the body of this dictation should be directly addressed to the physician technician assistant for clarification. Impression & Plan COVID, Head injury, Syncope, Acute kidney injury Discharge Plan Visit Data Chief Complaint: Fall Stated Complaint: FALL/HIT HEAD ED Provider: Dallas Merritt. ED Midlevel Provider: Eli Frances Discharge Problem: COVID, Head injury, Syncope, Acute kidney injury Patient Disposition: Admitted As Inpatient Condition: Good Forms Stand Alone Forms: My [facility] AMGas Prescriptions Prescriptions: No Action furosemide 40 mg tablet 40 mg PO QAM RF: 0 ondansetron 4 mg tablet,disintegrating 4 mg PO Q6H PRN (Reason: nausea and vomiting) Qty: 14 RF: 0 lidocaine [Salonpas (lidocaine)] 4 % Adhesive Patch,Medicated 1 patch TOPICAL DAILY PRN (Reason: Pain) RF: 0 aspirin 81 mg Tablet,Delayed Release (Dr/Ec) 81 mg PO QAM RF: 0 isosorbide dinitrate 20 mg tablet 20 mg PO TID RF: 0 rosuvastatin 10 mg tablet 10 mg PO HS RF: 0 famotidine [Pepcid] 20 mg Tablet 20 mg PO QPM@1700 RF: 0 hydralazine 100 mg tablet 100 mg PO TID RF: 0 carvedilol 25 mg tablet 25 mg PO BID RF: 0 acetaminophen [Tylenol Extra Strength] 500 mg Tablet 1,000 mg PO AMHS RF: 0 simethicone 80 mg Tablet,Chewable 80 mg PO DIRECTED PRN (Reason: GAS DISCOMFORT) RF: 0 allopurinol 100 mg tablet 200 mg PO QPM RF: 0 calcitriol 0.25 mcg capsule 0.25 mcg PO QAM RF: 0 pregabalin [Lyrica] 25 mg capsule 25 mg PO AMHS RF: 0 Humulin 70/30 U-100 Insulin 100 unit/mL (70-30) suspension See Rx Instructions .ROUTE .COMPLEX RF: 0 diclofenac sodium 1 % gel 4 g TOP QID PRN (Reason: Pain) RF: 0 cyanocobalamin (vitamin B-12) 500 mcg Tablet 500 mcg PO QAM Qty: 30 RF: 0 Saccharomyces boulardii [Florastor] 250 mg capsule 250 mg PO QAM RF: 0 Referrals Referrals: Fox Ramirez MD [Primary Care Provider] -
[2022-04-26 00:39] LABS: Basophils # (auto) 0.02 K/uL (0-0.2); Basophils % (auto) 0.2 %; Eosinophils # (auto) 0.16 K/uL (0-0.5); Eosinophils % (auto) 1.5 %; Hematocrit (blood only) 28.7 % (37-47); Hemoglobin 9.2 g/dL (12.0-16.0); Immature Granulocytes # (auto) 0.06 K/uL (0.00-0.02); Immature Granulocytes % (auto) 0.5 %; Lymphocytes # (auto) 0.54 K/uL (1.2-3.4); Lymphocytes % (auto) 4.9 %; Mean Corpuscular Hemoglobin 30.4 pg (25-34); Mean Corpuscular Hgb Conc 32.1 g/dL (32-36); Mean Corpuscular Volume 94.7 fL (80-100); Mean Platelet Volume 9.2 fL (7.4-10.4); Monocytes # (auto) 1.57 K/uL (0.11-0.59); Monocytes % (auto) 14.3 %; Neutrophils # (auto) 8.66 K/uL (1.4-6.5); Neutrophils % (auto) 78.6 %; Platelet Count 265 K/uL (130-400); RDW Coefficient of Variation 14.3 % (11.5-14.5); RDW Standard Deviation 49.2 fL (36.4-46.3); Red Blood Count 3.03 M/uL (4.2-5.4); White Blood Count 11.01 K/uL (4.8-10.8)
[2022-04-26 00:50] LABS: Partial Thromboplastin Ratio 1.4; Prothrombin Time 10.7 Seconds (9.0-12.0)
[2022-04-26 00:58] LABS: Albumin Globulin Ratio 1.6 (0.9-2); Albumin Level 4.1 gm/dl (3.4-5.0); Bilirubin,Total 1.3 mg/dl (0.2-1.0); Calcium 10.2 mg/dl (8.5-10.1); Creatinine Clr Calc Pharmacy 14.5 ml/min; Globulin 2.6 gm/dl (2.5-4.0); Magnesium 2.2 mg/dl (1.7-2.4); Potassium 3.7 mmol/L (3.5-5.1); Total Protein 6.7 gm/dl (6.0-8.3)
[2022-04-26 01:04] LABS: Troponin I High Sensitivity 13.2 pg/ml (0-14)
[2022-04-26] MEDS ORDERED: PIPERACILLIN/TAZOBACTAM 4.5 GM/120 ML BAG IV ONE (01:15)
[2022-04-26] MEDS ORDERED: SODIUM CHLORIDE 0.9% 1000ML 500 ML IV ONE (01:15)
[2022-04-26 01:37] LABS: Adenovirus PCR Not Detected (NotDetected); Bordetella parapertussis PCR Not Detected (NotDetected); Bordetella pertussis PCR Not Detected (NotDetected); Chlamydia pneumoniae PCR Not Detected (NotDetected); Coronavirus 229E PCR Not Detected (NotDetected); Coronavirus HKU1 PCR Not Detected (NotDetected); Coronavirus NL63 PCR Not Detected (NotDetected); Coronavirus OC43PCR Not Detected (NotDetected); Human Metapneumovirus PCR Not Detected (NotDetected); Influenza A PCR Not Detected (NotDetected); Influenza B PCR Not Detected (NotDetected); Mycoplasma pneumoniae PCR Not Detected (NotDetected); Parainfluenza Virus 1 PCR Not Detected (NotDetected); Parainfluenza Virus 2 PCR Not Detected (NotDetected); Parainfluenza Virus 3 PCR Not Detected (NotDetected); Parainfluenza Virus 4 PCR Not Detected (NotDetected); Respiratory Syncytial VirusPCR Not Detected (NotDetected); Rhinovirus/Enterovirus PCR Not Detected (NotDetected)
[2022-04-26 01:40] LABS: Coronavirus CoV-2 (COVID19)PCR DETECTED (NotDetected)
[2022-04-26] MEDS ORDERED: ALBUT/IPRATROP 3MG/0.5MG NEB 3 ML VIAL ONE (02:41)
[2022-04-26 02:47] LABS: Appearance Urine Cloudy (Clear); Bacteria Urine Automated 4+ (Negative); Bilirubin Urine Negative (Negative); Blood Urine Negative (Negative); Color Urine Yellow; Epithelial Cell Urine Auto >30 /lpf (0-5); Glucose Urine UA Negative (Negative); Ketones Urine Negative (Negative); Leukocyte Esterase Urine 1+ (Negative); Nitrite Urine Positive (Negative); Protein Urine 2+ (Negative); Specific Gravity Urine 1.013 (1.000-1.030); Urobilinogen Urine Negative (Negative); WBC Urine Automated >30 /hpf (0-5); pH Urine 5.5 (4.5-7.5)
[2022-04-26] MEDS ORDERED: hydrALAZINE HCL 25 MG TAB PO STA (02:47)
--- NOTE | 2022-04-26 02:50 | History & Physical Report ---
Date of Service April 26, 2022 Assessment & Plan (1) Complicated UTI (urinary tract infection): Plan: no sepsis for now Rule out obstructive uropathy given abdominal pain/history hydronephrosis/kidney dysfunction COVID-19 infection, patient nontoxic HTN, slightly elevated secondary to discomfort/anxiety ARF on CKD secondary to illness Fall secondary to illness, underlying ambulatory dysfunction chronic diastolic heart failure (EF 55 to 60%, TTE 2019), patient on the dry side hx LBBB hx PAF, patient NSR hx PVD (renal artery stenosis as per records) DM2 insulin requiring, well-controlled as of recent hemoglobin A1c of 6.25 August 2020) chronic anemia, hemoglobin at baseline GMF Follow CS, Cefepime CT abdomen pelvis Re: Abdominal pain Supportive management for COVID-19 illness Monitor creatinine response to gentle IV hydration, hold home diuretics until pa tient euvolemic Nephrology consult if without improvement (Patient known to [facility].) Basal bolus insulin adjusted for clear liquid diet for now, ISS BG goal [id number], carb count coverage PT OT eval Fall precautions DVT prophylaxis with Heparin subcu Full code Text document was generated using [email or web address] voice recognition software. It may contain grammatical or spelling errors. Kindly contact undersigned for clarification of any documentation item in question. History of Present Illness Chief Complaint: Fall, cough, not feeling well Primary Care Provider: Fox Ramirez MD History obtained from patient and records. Medical history significant for chronic diastolic heart failure (EF 55 to 60%, TTE 2019), chronic left bundle branch block, PAF as per records, PVD, hypertension, DM2 insulin requiring, CRI (baseline creatinine 2.5), GERD, chronic constipation, chronic anemia (baseline hemoglobin of 9). Last confinement December 2021 for thoracic fracture secondary to ambulatory dysfunction. No surgical intervention. Patient not feeling well the last few days. Flulike illness. No known COVID-19 contacts. Junky cough symptoms productive of grayish white sputum. Some shortness of breath without fluid retention. Patient completed COVID-19 vaccination. Achy abdominal pain without dysuria symptoms. Patient had a fall at home preceded by lightheadedness. Head trauma without LOC/syncope. Chest pain. Patient brought to the ER for evaluation. IV Zosyn administered at the ER. MEDICAL HISTORY: As above. SURGERIES: She has had knee surgeries, hysterectomy, bilateral tubal ligation, cholecystectomy and appendectomy. FAMILY HISTORY: Laryngeal cancer, stroke and throat cancer. 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 Allergies Allergy/AdvReac Type Severity Reaction Status Date / Time No Known Allergies Allergy Verified 04/26/22 01:23 Home Medications Medication Instructions Recorded Confirmed Type aspirin 81 mg tablet,delayed 81 mg PO QAM 12/30/18 04/26/22 History release isosorbide dinitrate 20 mg tablet 20 mg PO TID 12/30/18 04/26/22 History rosuvastatin 10 mg tablet 10 mg PO HS 12/30/18 04/26/22 History famotidine 20 mg tablet (Pepcid) 20 mg PO QPM@1700 11/18/19 04/26/22 History lidocaine 4 % topical patch 1 patch TOPICAL DAILY PRN 06/23/20 04/26/22 History (Salonpas (lidocaine)) insulin human U-100 NPH-regulr See Rx Instructions .ROUTE .COMPLEX 03/16/21 04/26/22 History 70-30 mix 100 unit/mL subcutaneous susp (Humulin 70/30 U-100 Insulin) diclofenac sodium 1 % topical gel 4 g TOP QID PRN 03/17/21 04/26/22 History cyanocobalamin (vitamin B-12) 500 500 mcg PO QAM #30 tab 03/27/21 04/26/22 Rx mcg tablet carvedilol 25 mg tablet 25 mg PO BID 06/13/21 04/26/22 History hydralazine 100 mg tablet 100 mg PO TID 06/13/21 04/26/22 History Saccharomyces boulardii 250 mg 250 mg PO QAM 08/26/21 04/26/22 History capsule (Florastor) ondansetron 4 mg disintegrating 4 mg PO Q6H PRN #14 tab 11/25/21 04/26/22 Rx tablet furosemide 40 mg tablet 40 mg PO QAM tab 03/28/22 04/26/22 History acetaminophen 500 mg tablet 1,000 mg PO AMHS 04/26/22 04/26/22 History (Tylenol Extra Strength) allopurinol 100 mg tablet 200 mg PO QPM 04/26/22 04/26/22 History calcitriol 0.25 mcg capsule 0.25 mcg PO QAM 04/26/22 04/26/22 History pregabalin 25 mg capsule (Lyrica) 25 mg PO AMHS 04/26/22 04/26/22 History simethicone 80 mg chewable tablet 80 mg PO DIRECTED PRN 04/26/22 04/26/22 History Past Med/Surg History Medical History CHF (congestive heart failure) follows with Kaushal Nieto PA-C Chronic back pain Chronic kidney disease (CKD), stage IV (severe) follows with Dr. Childress Diabetes mellitus, type 2 Diverticulitis large intestine hx Hearing deficit History of kidney stones HTN (hypertension) Hyperlipidemia Kidney cysts LEFT SIDE>BEING MONITORED BY UROLOGY [facility] Morbid obesity with BMI of 40.0-44.9, adult Nocturnal hypoxemia On home oxygen therapy 2L N/C at HS only Osteoarthritis Surgical History H/O: hysterectomy History of arthroscopy of left knee History of bilateral tubal ligation History of cardiac cath ?2009--@ [facility]--no stents History of colonoscopy History of cystoscopy History of dilatation and curettage History of esophagogastroduodenoscopy (EGD) History of tooth extraction all teeth Hx of appendectomy Hx of cholecystectomy Nausea and vomiting after administration of anesthetic agent Family History Sister Family history of diabetes mellitus Sister Family history of diabetes mellitus Brother Family history of diabetes mellitus Family history of esophageal cancer Brother Family history of esophageal cancer Father Lung cancer Other No family history of adverse response to anesthesia No significant family history Social History Smoking Status: Never smoker Second Hand Exposure: No; Hx Alcohol Use: No Hx Substance Use: No Preferred Language: Libyan Communication Ability: Effective Secondary Market Manager Required: No Beliefs That Will Affect Care: None marital status: / Current Living Situation: Family Current Living Situation Comment: Son and daughter in law Other Information That Helps Us Care for You: No Feels Safe at Home: Yes Safety Concerns: Feels Safe At This Time Assistive Devices: Denture - Upper, Denture - Lower, Glasses and Walker Review of Systems Review of Systems: As per HPI, all other systems reviewed and negative Physical Exam Physical Exam: GENERAL: Anxious, obese, uncomfortable, no respiratory distress SKIN: Pallor, warm HEENT: Pale palpebral conjunctivae, no ptosis, dry buccal mucosa NECK : Supple, short neck, no tenderness CHEST : Decreased breath sounds, no tenderness HEART : RRR, no obvious murmurs ABDOMEN: Some distention, minimal hypogastric tenderness EXTREMITIES : Minimal LE swelling , no LE tenderness, no other conspicuous deformities noted NEUROLOGIC : Coherent, no facial asymmetry, no other gross focality Results & Data Results & Data ([facility]) Vital Signs (Past 12 Hours) Vital Signs Temp Pulse Resp BP Pulse Ox 04/26/22 01:49 192/81 H 97 04/26/22 01:45 96 04/26/22 01:30 98 04/26/22 01:17 172/68 H 96 04/26/22 01:16 95 04/26/22 00:38 18 93 04/26/22 00:32 84 27 H 04/26/22 00:10 37.5 C 83 18 199/74 H 92 Laboratory Results Laboratory Results WBC 11.01 K/uL (4.8-10.8) H 04/26/22 00:20 RBC 3.03 M/uL (4.2-5.4) L 04/26/22 00:20 Hgb 9.2 g/dL (12.0-16.0) L 04/26/22 00:20 Hct 28.7 % (37-47) L 04/26/22 00:20 MCV 94.7 fL (80-100) 04/26/22 00:20 MCH 30.4 pg (25-34) 04/26/22 00:20 MCHC 32.1 g/dL (32-36) 04/26/22 00:20 RDW Std Deviation 49.2 fL (36.4-46.3) H 04/26/22 00:20 RDW Coeff of Noemy 14.3 % (11.5-14.5) 04/26/22 00:20 Plt Count 265 K/uL (130-400) 04/26/22 00:20 MPV 9.2 fL (7.4-10.4) 04/26/22 00:20 Immature Gran % (Auto) 0.5 % 04/26/22 00:20 Neut % (Auto) 78.6 % 04/26/22 00:20 Lymph % (Auto) 4.9 % 04/26/22 00:20 Tama % (Auto) 14.3 % 04/26/22 00:20 Eos % (Auto) 1.5 % 04/26/22 00:20 Baso % (Auto) 0.2 % 04/26/22 00:20 Neut # (Auto) 8.66 K/uL (1.4-6.5) H 04/26/22 00:20 Lymph # (Auto) 0.54 K/uL (1.2-3.4) L 04/26/22 00:20 Tama # (Auto) 1.57 K/uL (0.11-0.59) H 04/26/22 00:20 Eos # (Auto) 0.16 K/uL (0-0.5) 04/26/22 00:20 Baso # (Auto) 0.02 K/uL (0-0.2) 04/26/22 00:20 Immature Gran # (Auto) 0.06 K/uL (0.00-0.02) H 04/26/22 00:20 PT 10.7 Seconds (9.0-12.0) 04/26/22 00:20 INR 1.0 (0.9-1.1) 04/26/22 00:20 APTT 39.0 Seconds (21.0-31.0) H 04/26/22 00:20 PTT Ratio 1.4 04/26/22 00:20 Sodium 138 mmol/L (136-145) 04/26/22 00:20 Potassium 3.7 mmol/L (3.5-5.1) 04/26/22 00:20 Chloride 100 mmol/L (98-107) 04/26/22 00:20 Carbon Dioxide 27 mmol/L (21-32) 04/26/22 00:20 Anion Gap 11 (3-11) 04/26/22 00:20 BUN 69 mg/dl (6-23) H 04/26/22 00:20 Creatinine 3.28 mg/dl (0.6-1.2) H 04/26/22 00:20 Est Cr Clr Drug Dosing 14.5 ml/min 04/26/22 00:20 Est GFR ( Amer) 14.0 ml/min 04/26/22 00:20 Est GFR (Non-Af Amer) 12.0 ml/min 04/26/22 00:20 BUN/Creatinine Ratio 21.0 (10-20) H 04/26/22 00:20 Glucose 146 mg/dl (70-99(Fasting)) H 04/26/22 00:20 Lactate 1.0 mmol/L (0.4-2.0) 04/26/22 00:20 Calcium 10.2 mg/dl (8.5-10.1) H 04/26/22 00:20 Magnesium 2.2 mg/dl (1.7-2.4) 04/26/22 00:20 Total Bilirubin 1.3 mg/dl (0.2-1.0) H 04/26/22 00:20 AST 19 U/L (13-39) 04/26/22 00:20 ALT 12 U/L (7-52) 04/26/22 00:20 Alkaline Phosphatase 55 U/L (34-104) 04/26/22 00:20 Troponin I High Sens 13.2 pg/ml (0-14) 04/26/22 00:20 Total Protein 6.7 gm/dl (6.0-8.3) 04/26/22 00:20 Albumin 4.1 gm/dl (3.4-5.0) 04/26/22 00:20 Globulin 2.6 gm/dl (2.5-4.0) 04/26/22 00:20 Albumin/Globulin Ratio 1.6 (0.9-2) 04/26/22 00:20 Adenovirus (PCR) Not Detected (NotDetected) 04/26/22 00:40 B. pertussis DNA (PCR) Not Detected (NotDetected) 04/26/22 00:40 B.parapertussis DNA PCR Not Detected (NotDetected) 04/26/22 00:40 C. pneumoniae DNA (PCR) Not Detected (NotDetected) 04/26/22 00:40 Coronavirus OC43 (PCR) Not Detected (NotDetected) 04/26/22 00:40 Coronavirus HKU1 (PCR) Not Detected (NotDetected) 04/26/22 00:40 Coronavirus 229E (PCR) Not Detected (NotDetected) 04/26/22 00:40 SARS-CoV-2 (PCR) DETECTED (NotDetected) A* 04/26/22 00:40 Coronavirus NL63 (PCR) Not Detected (NotDetected) 04/26/22 00:40 Human Metapneumovir PCR Not Detected (NotDetected) 04/26/22 00:40 Influenza Type A (PCR) Not Detected (NotDetected) 04/26/22 00:40 Influenza Type B (PCR) Not Detected (NotDetected) 04/26/22 00:40 M. pneumoniae (PCR) Not Detected (NotDetected) 04/26/22 00:40 Parainfluenza 1 (PCR) Not Detected (NotDetected) 04/26/22 00:40 Parainfluenza 2 (PCR) Not Detected (NotDetected) 04/26/22 00:40 Parainfluenza 3 (PCR) Not Detected (NotDetected) 04/26/22 00:40 Parainfluenza 4 (PCR) Not Detected (NotDetected) 04/26/22 00:40 RSV (PCR) Not Detected (NotDetected) 04/26/22 00:40 Entero/Rhino (PCR) Not Detected (NotDetected) 04/26/22 00:[address] head initial read: No ICH, mass effect or edema. No evidence of acute cortical stroke. Periventricular small vessel ischemic change. Mild generalized brain atrophy. There is posterior scalp swelling/hematoma along the right parietal bone. No skull fracture. Mild mucosal thickening of the right frontal sinus, likelysequela of sinusitis. Remainder of the paranasal sinuses and mastoids are clear. CT cervical spine initial read: No evidence of fracture or malalignment. Normal cervical lordosis. Diffuse osteoporosis. Degenerative arthrosis at anterior C1-C2 articulation. Well preserved disc height. Mild central canal stenosis or neuroforaminal encroachment. Mild atherosclerotic disease involving the carotid arteries. Large left thyroid lobe with calcifications versus calcified mass measuring 2 4.1 cm, further evaluation with ultrasound the nonacute setting mayhelp if clinicallyindicated. Chest x-ray as per my interpretation cardiomegaly, no infiltrate EKG as per my interpretation : Rate 85, NSR, normal axis, no ischemia
[2022-04-26 03:06] LABS: RBC Urine Automated 0-4 /hpf (0-4)
[2022-04-26] MEDS ORDERED: ACETAMINOPHEN 325 MG TAB PO STA (03:43)
[2022-04-26] MEDS ORDERED: carvediloL 12.5 MG TAB PO ONE (03:43)
[2022-04-26] MEDS ORDERED: BENZONATATE 100 MG CAPSULE PO ONE (03:43)
[2022-04-26] MEDS ORDERED: PREGABALIN 25 MG CAP PO STA (03:48)
[2022-04-26] MEDS ORDERED: SODIUM CHLORIDE 0.9% 1000ML 1,000 ML IV ONE (05:55)
[2022-04-26] MEDS ORDERED: BENZONATATE 100 MG CAPSULE PO PRN (05:55)
[2022-04-26] MEDS ORDERED: CARBOHYDRATES FOR HYPOGLYCEMIA PO PRN (05:55)
[2022-04-26] MEDS ORDERED: GLUCAGON FOR INJ 1 MG VIAL SQ PRN (05:55)
[2022-04-26] MEDS ORDERED: ACETAMINOPHEN 325 MG TAB PO PRN (05:55)
[2022-04-26] MEDS ORDERED: GLUCOSE 10 TAB/TUBE PO PRN (05:55)
[2022-04-26] MEDS ORDERED: GLUCOSE 40% GEL 15 GM TUBE PO PRN (05:55)
[2022-04-26] MEDS ORDERED: PROMETHAZINE HCL 12.5 MG in SODIUM CHLORIDE 0.9% 50 ML IV PRN (05:55)
[2022-04-26] MEDS ORDERED: traMADol HCL 50 MG TABLET PO PRN (05:55)
[2022-04-26] MEDS ORDERED: DEXTROSE 50% 50 ML SYRINGE IV PRN (05:55)
[2022-04-26] MEDS ORDERED: LORazepam 0.25 MG in SYRINGE 0.125 ML IV PRN (05:55)
[2022-04-26] MEDS: INSULIN ASPART PER UNIT SC SCH ×4 (06:31→21:42)
--- NOTE | 2022-04-26 07:11 | CT Scan Report ---
CT SCAN OF THE BRAIN WITHOUT IV CONTRAST CLINICAL HISTORY: Fall. Head injury. COMPARISON STUDY: CT of the brain dated 12/22/2021. TECHNIQUE: Unenhanced axial CT scan of the brain is performed from the vertex to the skull base. A do se lowering technique was utilized adhering to the principles of ALARA. CT DOSE: 1140.00 mGy.cm FINDINGS: Brain parenchyma: There is age-related involutional change noting mild to moderate patchy subcortical and periventricular microangiopathic disease. There is no hemorrhage, mass effect, or evidence of ac debora territorial ischemia by CT criteria. Sher-white matter differentiation is preserved. No extra-axi al fluid collection is seen. Ventricles, sulci, cisterns: Prominent secondary to involutional change. Intracranial vasculature: There is atherosclerotic calcification of the cavernous carotid and vertebr al arteries. Calvarium: The skeletal structures are osteopenic. No depressed calvarial fracture is identified. Soft tissues: There is a posterior scalp hematoma. Sinuses and mastoids: There is trace mucosal thickening within the maxillary antra. The remaining par anasal sinuses are clear. The mastoid air cells are well pneumatized. Orbits: The bony orbits are grossly intact. IMPRESSION: There is no hemorrhage, mass effect, or evidence of acute territorial ischemia by CT taylor lange. ACT 112: Negative or not required by law. Electronically signed by: Marco Morocho M.D. 04/26/2022 7:10 AM
--- NOTE | 2022-04-26 07:29 | CT Scan Report ---
CT SCAN OF THE CERVICAL SPINE CLINICAL HISTORY: Trauma. Fall. COMPARISON STUDY: CT of the cervical spine dated 12/22/2021. TECHNIQUE: CT scan of the cervical spine is performed from the skull base to the upper thoracic spine . Images are reviewed in the axial, sagittal, and coronal planes. IV contrast was not administered fo r this examination. A dose lowering technique was utilized adhering to the principles of ALARA. FINDINGS: Skeletal structures: The skeletal structures are heterogeneously osteopenic. There is no evidence of fracture or subluxation involving the cervical spine. Vertebral body height and alignment are maintai han. The odontoid process and lateral masses are intact. The atlantoaxial articulation is preserved noting productive degenerative change. The spinous processes appear intact. There is mild facet arthr opathy noted in the cervical spine. Intervertebral discs: The disc spaces are maintained. Central canal: Grossly patent. Soft tissues: The prevertebral and paraspinous soft tissues are within normal limits. The thyroid gla nd is enlarged and heterogeneous. Coarse calcifications are seen in the left lobe. Calvarium: The visualized calvarium at the skull base appears intact. Brain parenchyma: Partially visualized brain parenchyma at the skull base is within normal limits. Sinuses and mastoids: Trace mucosal thickening is noted in the right sphenoid sinus and the right max illary antrum. The mastoid air cells are well pneumatized. Lung apices: Clear as visualized. IMPRESSION: There is no evidence of fracture or subluxation involving the cervical spine. ACT 112: Negative or not required by law. Electronically signed by: Marco Morocho M.D. 04/26/2022 7:27 AM
--- NOTE | 2022-04-26 08:21 | XRay Report ---
XR chest 1V portable CLINICAL HISTORY: SEPSIS TECHNIQUE: Single frontal radiograph of the chest was obtained. Comparison: Comparison is made to chest radiograph 12/22/2021 FINDINGS: Exam is limited by underpenetration. Cardiomegaly is noted. The lungs are clear. No evidence of pleur al effusion or pneumothorax. IMPRESSION: No acute chest disease. Cardiomegaly is noted. ACT 112: Negative or not required by law. Electronically signed by: Win Scott M.D. 04/26/2022 8:19 AM
--- NOTE | 2022-04-26 08:37 | CT Scan Report ---
CT SCAN OF THE ABDOMEN AND PELVIS WITHOUT IV CONTRAST CLINICAL HISTORY: Generalized abdominal pain. COMPARISON STUDY: Abdominal CT dated 12/12/2021. Renal ultrasound dated 11/18/2020. TECHNIQUE: CT scan of the abdomen and pelvis is performed from the lung bases to the proximal femora. Images are reviewed in the axial, sagittal, and coronal planes. IV contrast was not administered for this examination. Note that the examination was performed in significantly suboptimal fashion withou t oral and IV contrast. A dose lowering technique was utilized adhering to the principles of ALARA. CT DOSE: 1238.07 mGy.cm FINDINGS: Lung bases: The heart is enlarged and and without pericardial effusion. The coronary arteries are den sely calcified. There is a tiny hiatal hernia. The lung bases are clear noting bibasilar scarring/ate lectasis. Liver: The unenhanced liver is normal in size, contour, and attenuation. There is no intrahepatic lia iary ductal dilatation. A 1.8 cm cyst is noted in the left lobe. Gallbladder: Surgically absent noting clips in the gallbladder fossa. Spleen: Normal in size and attenuation. Pancreas: The unenhanced pancreas is moderately atrophic and grossly unremarkable. 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 The right adrenal gland is nor mal in appearance. Kidneys: The unenhanced kidneys are atrophic. There is dilatation of the left upper pole collecting s ystem secondary to a 5.3 cm complex lesion in the left renal pelvis. Additional complex lesion identi fied in both kidneys seen in the left lower pole on image #[id number] and in the right lower pole on image # 274. These are unchanged from prior studies. No renal calculi are identified. Abdominal vasculature: The abdominal aorta is normal in course and caliber noting advanced atheroscle rotic calcification. Bowel: There is moderate to advanced colonic diverticulosis without CT evidence of acute diverticulit is. No bowel obstruction is identified. The appendix is not identified. Peritoneum: There is no intraperitoneal free air or abdominal ascites. Foci of induration within the ventral abdominal wall are likely related subcutaneous injections. Lymphadenopathy: None. Pelvic viscera: The bladder is distended but otherwise normal as visualized. The uterus is surgically absent. No adnexal lesion is seen. Skeletal structures: The skeletal structures are osteopenic. There is mild to moderate lumbosacral sp ondylosis. No lytic or blastic lesions are seen. IMPRESSION: 1. No acute infectious or inflammatory findings are identified in the abdomen or pelvis. 2. Moderate to advanced colonic diverticulosis without CT evidence of acute diverticulitis. 3. Indeterminant complex lesions are again seen in both kidneys and similar to prior examinations. Th jesus alberto likely represent complex cysts when correlated with the 11/18/2020 and ultrasound. The largest les ion in the left left renal pelvis causes dilatation of the left upper pole collecting system. 4. Additional findings as above. ACT 112: Negative or not required by law. Electronically signed by: Marco Morocho M.D. 04/26/2022 8:35 AM
[2022-04-26] MEDS ORDERED: CEFEPIME 2,000 MG in SYRINGE 0 ML IV ONE (09:00)
[2022-04-26] MEDS: HEPARIN SOD 5,000 UNIT/0.5 ML VIAL SQ SCH ×3 (09:06→21:47)
[2022-04-26] MEDS: ACETAMINOPHEN 500 MG TAB PO SCH ×2 (09:06→20:25)
[2022-04-26] MEDS: ASPIRIN 81 MG ECTAB PO SCH (09:06)
[2022-04-26] MEDS: PREGABALIN 25 MG CAP PO SCH ×2 (09:06→20:25)
[2022-04-26] MEDS: SACCHAROMYCES BOULARDII 250 MG CAP PO SCH (09:07)
[2022-04-26] MEDS: CYANOCOBALAMIN (B-12) 500 MCG TABLET PO SCH (09:07)
[2022-04-26] MEDS: carvediloL 25 MG TAB PO SCH ×2 (09:07→20:12)
[2022-04-26] MEDS: ISOSORBIDE DINITRATE 20 MG TAB PO SCH ×3 (09:07→16:53)
[2022-04-26] MEDS: hydrALAZINE TAB 50 MG TAB PO SCH ×2 (09:07→16:53)
--- NOTE | 2022-04-26 11:51 | Hospitalist Progress Note ---
Date of Service April 26, 2022 Assessment & Plan (1) UTI (urinary tract infection): (2) COVID: (3) Acute kidney injury superimposed on CKD: (4) Type 2 diabetes mellitus with hyperglycemia: (5) Generalized weakness: Plan: 86 year old female with DM, CKD4, HTN who presented to the ED on 04/26 with cough, congestion, generalized weakness, aches, feeling hot and cold with sweats for past few days. UTI- on cefepime D1 pending final blood and urine culture results. CT A/P with no acute finding, no HDN. COVID19- no hypoxia, no PNA, no indication for steroids or remdesevir currently. Will monitor closely - Will send sputum clx. Conservative management with mucinex, IS, Flutter valve, self prone if able. MISTI on CKD4- Baseline Cr seems to be 2-2.5 , currently 3.3. Hold home diuretics. Continue gentle hydration. Avoid nephrotoxics. If does not improve, will consult nephrology. Diabetes mellitus type II with hyperglycemia- continue lantus, humalog- adjust as indicated Essential hypertension- BP stable, continue Coreg, hydralazine Generalized weakness- due to UTI and covid. PT OT eval once infection treated and she is improved DVT ppx- sc heparin Dispo- Awaiting blood and urine clx results for ABx tailoring. Monitoring labs for MISTI. Will need PT eval for the weakness. Admission and Anticipated Discharge Date Admission Date: April 26, 2022 Subjective Feels the same. States she was doing fine until 5 days back. Last Monday she went to [facility] and that night she started having hot and cold sensation with sweats along with generalized weakness which progressively got worse.She still complains of cough with some sputum production- feels she is unable to bring the all the phlegm up. Still having hot and cold sensation. No fever noted here. She does not feel improved. Still feels weak. She states she completed 3 shots of COVID and this covid positive test yesterday in ED came as as surprise to her because she tested herself at home the day before and it was negative. Her son lives with her and is doing fine. No known COVID contacts. Physical Exam Physical Exam: General: Elderly female, sick looking, lying in bed, not in distress, on room air HEENT: EOMI, PATRICIA, MMM Chest: Fair breath sounds bilaterally, no wheezes or crackles CVS: Regular rate and rhythm, normal heart sounds, no murmur Abdomen: Soft, non tender, not distended, normal bowel sounds Neuro: Awake, alert, oriented, conversing well, non focal Extremities: No cyanosis, clubbing or edema Results & Data Results & Data ([facility]) Vital Signs (Past 12 Hours) Vital Signs Temp Pulse Pulse Resp BP BP Pulse Ox 04/26/22 08:29 37.2 C 87 16 121/53 L 96 04/26/22 05:45 37.2 C 87 18 171/76 H 96 04/26/22 05:00 90 15 151/61 H 97 04/26/22 04:45 85 20 135/62 95 04/26/22 04:30 84 23 140/58 L 95 04/26/22 04:15 85 24 134/57 L 94 04/26/22 04:00 88 20 145/59 H 97 04/26/22 03:45 88 24 145/63 H 99 04/26/22 03:30 89 24 145/63 H 98 04/26/22 03:15 143/58 H 93 04/26/22 03:00 128/53 L 92 04/26/22 02:52 135/60 04/26/22 02:51 135/60 95 04/26/22 02:46 95 04/26/22 02:30 173/74 H 96 04/26/22 02:23 95 04/26/22 02:07 196/99 H 94 04/26/22 02:00 200/79 H 91 04/26/22 01:53 195/84 H 96 04/26/22 01:49 192/81 H 97 04/26/22 01:45 96 04/26/22 01:30 98 04/26/22 01:17 172/68 H 96 04/26/22 01:16 95 04/26/22 00:38 18 93 04/26/22 00:32 84 27 H 04/26/22 00:10 37.5 C 83 18 199/74 H 92 Laboratory Results Short CBC 04/26/22 Range/Units 00:20 WBC 11.01 H (4.8-10.8) K/uL Hgb 9.2 L (12.0-16.0) g/dL Hct 28.7 L (37-47) % Plt Count 265 (130-400) K/uL BMP 04/26/22 00:20 Sodium 138 Potassium 3.7 Chloride 100 Carbon Dioxide 27 BUN 69 H Creatinine 3.28 H Glucose 146 H Calcium 10.2 H Liver Function 04/26/22 Range/Units 00:20 Total Bilirubin 1.3 H (0.2-1.0) mg/dl AST 19 (13-39) U/L ALT 12 (7-52) U/L Alkaline Phosphatase 55 (34-104) U/L Albumin 4.1 (3.4-5.0) gm/dl Urine 04/26/22 Range/Units Unknown Urine Color Yellow Urine Appearance Cloudy A (Clear) Urine pH 5.5 (4.5-7.5) Ur Specific [place] 1.013 (1.000-1.030) Urine Protein 2+ H (Negative) Urine Glucose (UA) Negative (Negative) Medications Administered Current Inpatient Medications Acetaminophen (Acetaminophen 500 Mg Tab) 1,000 mg PO AMHS [facility] Stop: 05/26/22 08:59 Last Admin: 04/26/22 09:06 Dose: 1,000 mg Documented by: Acetaminophen (Acetaminophen 325 Mg Tab) 325 mg PO Q6H PRN PRN Reason: Mild Pain Stop: 05/26/22 05:54 Allopurinol (Allopurinol 100 Mg Tab) 100 mg PO QPM [facility] Stop: 05/26/22 20:59 Aspirin (Aspirin 81 Mg Ectab) 81 mg PO QAM [facility] Stop: 05/26/22 08:59 Last Admin: 04/26/22 09:06 Dose: 81 mg Documented by: Benzonatate (Benzonatate 100 Mg Capsule) 100 mg PO TID PRN PRN Reason: Cough Stop: 05/26/22 05:54 Carvedilol (Carvedilol 25 Mg Tab) 25 mg PO BID [facility] Stop: 05/26/22 08:59 Last Admin: 04/26/22 09:07 Dose: 25 mg Documented by: Cyanocobalamin (Cyanocobalamin (B-12) 500 Mcg Tablet) 500 mcg PO QAM [facility] Stop: 05/26/22 08:59 Last Admin: 04/26/22 09:07 Dose: 500 mcg Documented by: Dextrose (Dextrose 50% 50 Ml Syringe) 25 - 50 ml IV UD PRN; Protocol PRN Reason: Hypoglycemia Protocol Stop: 05/26/22 05:54 Glucagon (Glucagon For Inj 1 Mg Vial) 1 mg SQ UD PRN; Protocol PRN Reason: Hypoglycemia Protocol Stop: 05/26/22 05:54 Glucose (Glucose 10 Tabs/Tube) 4 - 8 tabs PO UD PRN; Protocol PRN Reason: Hypoglycemia Protocol Stop: 05/26/22 05:54 Glucose (Glucose 40% Gel 15 Gm Tube) 15 - 30 gm PO UD PRN; Protocol PRN Reason: Hypoglycemia Protocol Stop: 05/26/22 05:54 Guaifenesin (Guaifenesin 600 Mg Tabcr) 1,200 mg PO Q12 [facility] Stop: 05/26/22 20:59 Heparin Sodium (Porcine) (Heparin Sod 5,000 Unit/0.5 Ml Vial) 5,000 units SQ Q8 [facility] Stop: 05/26/22 05:59 Last Admin: 04/26/22 09:06 Dose: 5,000 units Documented by: Hydralazine HCl (Hydralazine Tab 50 Mg Tab) 100 mg PO Q8H [facility] Stop: 05/26/22 08:59 Last Admin: 04/26/22 09:07 Dose: 100 mg Documented by: Promethazine HCl 12.5 mg/ (Sodium Chloride) 50.5 mls @ 202 mls/hr IV Q6H PRN PRN Reason: Nausea And Vomiting Stop: 05/26/22 05:54 Lorazepam 0.25 mg/ Syringe 0.25 mls @ 2 mls/min IV Q6H PRN PRN Reason: Anxiety Stop: 05/26/22 05:54 Sodium Chloride (Nss 1000ml) 1,000 mls @ 60 mls/hr IV .[id number] ONE Stop: 04/26/22 22:34 Last Admin: 04/26/22 05:55 Dose: 60 mls/hr Documented by: Cefepime HCl 1,000 mg/ Syringe 11.3 mls @ 5.5 mls/min IV Q24H [facility]; Protocol Stop: 05/07/22 08:59 Insulin Aspart (Insulin Aspart Per Unit) 0 units SC ACHS [facility] Stop: 05/26/22 05:54 Last Admin: 04/26/22 06:31 Dose: 2 units Documented by: Isosorbide Dinitrate (Isosorbide Dinitrate 20 Mg Tab) 20 mg PO TID@0700,1200,1700 [facility] Stop: 05/26/22 06:59 Last Admin: 04/26/22 09:07 Dose: 20 mg Documented by: Miscellaneous (Carbohydrates For Hypoglycemia ) 15 - 30 gm PO UD PRN PRN Reason: Hypoglycemia Protocol Stop: 05/26/22 05:54 Pregabalin (Pregabalin 25 Mg Cap) 25 mg PO AMHS [facility] Stop: 05/26/22 08:59 Last Admin: 04/26/22 09:06 Dose: 25 mg Documented by: Rosuvastatin Calcium (Rosuvastatin Calcium 10 Mg Tab) 10 mg PO HS [facility] Stop: 05/26/22 20:59 Saccharomyces Boulardii (Saccharomyces Boulardii 250 Mg Cap) 250 mg PO QAM [facility] Stop: 05/26/22 08:59 Last Admin: 04/26/22 09:07 Dose: 250 mg Documented by: Tramadol HCl (Tramadol Hcl 50 Mg Tablet) 25 - 50 mg PO Q12H PRN PRN Reason: Pain Stop: 05/26/22 05:54
[2022-04-26] MEDS: allopurinoL 100 MG TAB PO SCH (20:12)
[2022-04-26] MEDS: guaiFENesin 600 MG TABCR PO SCH (20:12)
[2022-04-26] MEDS: ROSUVASTATIN CALCIUM 10 MG TAB PO SCH (20:12)
[2022-04-27] MEDS: LANTUS PER UNIT CHARGE SQ SCH ×2 (00:17→21:05)
[2022-04-27] MEDS: hydrALAZINE TAB 50 MG TAB PO SCH ×3 (00:25→17:54)
[2022-04-27] MEDS: HEPARIN SOD 5,000 UNIT/0.5 ML VIAL SQ SCH ×3 (05:59→21:05)
[2022-04-27] MEDS: ISOSORBIDE DINITRATE 20 MG TAB PO SCH ×3 (05:59→17:55)
--- NOTE | 2022-04-27 06:19 | Electrocardiogram Report ---
Test Reason : Blood Pressure : / mmHG Vent. Rate : 085 BPM Atrial Rate : 085 BPM P-R Int : 178 ms QRS Dur : 096 ms QT Int : 366 ms P-R-T Axes : 056 003 061 degrees QTc Int : 435 ms Normal sinus rhythm When compared with ECG of 22-DEC-2021 22:45, No significant change Confirmed by Andrew Mendes ([id number]) on 04/27/2022 6:19:18 AM Referred By: REFERRED SELF Confirmed By:Andrew Mendes
[2022-04-27 08:09] LABS: Basophils # (auto) 0.01 K/uL (0-0.2); Basophils % (auto) 0.1 %; Eosinophils # (auto) 0.22 K/uL (0-0.5); Eosinophils % (auto) 2.8 %; Hematocrit (blood only) 26.5 % (37-47); Hemoglobin 8.4 g/dL (12.0-16.0); Immature Granulocytes # (auto) 0.04 K/uL (0.00-0.02); Immature Granulocytes % (auto) 0.5 %; Lymphocytes # (auto) 0.96 K/uL (1.2-3.4); Lymphocytes % (auto) 12.3 %; Mean Corpuscular Hemoglobin 29.8 pg (25-34); Mean Corpuscular Hgb Conc 31.7 g/dL (32-36); Mean Platelet Volume 9.6 fL (7.4-10.4); Monocytes # (auto) 1.46 K/uL (0.11-0.59); Monocytes % (auto) 18.8 %; Neutrophils # (auto) 5.09 K/uL (1.4-6.5); Neutrophils % (auto) 65.5 %; Platelet Count 266 K/uL (130-400); RDW Coefficient of Variation 14.3 % (11.5-14.5); RDW Standard Deviation 49.3 fL (36.4-46.3); Red Blood Count 2.82 M/uL (4.2-5.4); White Blood Count 7.78 K/uL (4.8-10.8)
[2022-04-27 08:27] LABS: BUN Creatinine Ratio 23.3 (10-20); C Reactive Protein 5.81 mg/dl (0-0.5); Calcium 9.1 mg/dl (8.5-10.1); Creatinine Clr Calc Pharmacy 16.1 ml/min; Est GFR (African American) 15.8 ml/min; Est GFR (Non-African American) 13.6 ml/min; Potassium 3.6 mmol/L (3.5-5.1)
[2022-04-27] MEDS ORDERED: CEFEPIME 1,000 MG in SYRINGE 0 ML IV SCH (09:00)
[2022-04-27] MEDS: INSULIN ASPART PER UNIT SC SCH ×4 (09:45→21:05)
[2022-04-27] MEDS: ACETAMINOPHEN 500 MG TAB PO SCH ×2 (09:51→21:05)
[2022-04-27] MEDS: CYANOCOBALAMIN (B-12) 500 MCG TABLET PO SCH (09:52)
[2022-04-27] MEDS: carvediloL 25 MG TAB PO SCH ×2 (09:52→21:05)
[2022-04-27] MEDS: SACCHAROMYCES BOULARDII 250 MG CAP PO SCH (09:52)
[2022-04-27] MEDS: guaiFENesin 600 MG TABCR PO SCH (09:52)
[2022-04-27] MEDS: ASPIRIN 81 MG ECTAB PO SCH (09:52)
[2022-04-27] MEDS: PREGABALIN 25 MG CAP PO SCH ×2 (09:52→21:06)
--- NOTE | 2022-04-27 13:47 | Hospitalist Progress Note ---
Date of Service April 27, 2022 Assessment & Plan (1) UTI (urinary tract infection): (2) COVID: (3) Acute kidney injury superimposed on CKD: (4) Type 2 diabetes mellitus with hyperglycemia: (5) Generalized weakness: Plan: 86 year old female with DM, CKD4, HTN who presented to the ED on 04/26 with cough, congestion, generalized weakness, aches, feeling hot and cold with sweats for past few days. UTI- on cefepime D2 pending final blood and urine culture results. Urine clx with GNB currently. CT A/P with no acute finding, no HDN. COVID19 with hypoxia- no PNA, no indication for steroids or remdesevir currently. Will monitor closely. If worsens, will repeat imaging and consider remdesivir/steroids. - Sputum clx with normal jonah so far. Conservative management with mucinex DM, tessalon perles, IS, Flutter valve, self prone if able. CRP improving. MISTI on CKD4- Baseline Cr seems to be 2-2.5 , peaked to 3.28 and now down to 2.96. Hold home diuretics. S/p gentle hydration. Avoid nephrotoxics. If does not improve, will consult nephrology. Diabetes mellitus type II with hyperglycemia- continue lantus, humalog- adjust as indicated Essential hypertension- BP stable, continue Coreg, hydralazine Generalized weakness- due to UTI and covid. PT OT recommenced rehab. DVT ppx- sc heparin Dispo- Awaiting final urine clx results for ABx tailoring. Pending recovery from COVID. Admission and Anticipated Discharge Date Admission Date: April 26, 2022 Subjective Still feels weak, tired and exhausted. Still with bad cough with subsequent soreness from coughing. Poor appetite. She does not feel ready to go to the rehab yet. Physical Exam Physical Exam: General: Elderly female, sick looking, lying in bed, not in distress, on room air HEENT: EOMI, PATRICIA, MMM Chest: Decreased breath sounds bilaterally, no wheezes or crackles CVS: Regular rate and rhythm, normal heart sounds, no murmur Abdomen: Soft, non tender, not distended, normal bowel sounds Neuro: Awake, alert, oriented, conversing well, non focal Extremities: No cyanosis, clubbing or edema Results & Data Results & Data ([facility]) Vital Signs (Past 12 Hours) Vital Signs Temp Pulse Resp BP Pulse Ox 04/27/22 08:30 37.3 C 76 18 163/72 H 97 04/27/22 06:00 36.8 C 63 18 142/72 H 98 Laboratory Results Short CBC 04/27/22 Range/Units 07:08 WBC 7.78 (4.8-10.8) K/uL Hgb 8.4 L (12.0-16.0) g/dL Hct 26.5 L (37-47) % Plt Count 266 (130-400) K/uL BMP 04/27/22 07:08 Sodium 138 Potassium 3.6 Chloride 103 Carbon Dioxide 27 BUN 69 H Creatinine 2.96 H D Glucose 128 H Calcium 9.1 Medications Administered Current Inpatient Medications Acetaminophen (Acetaminophen 500 Mg Tab) 1,000 mg PO AMHS [facility] Stop: 05/26/22 08:59 Last Admin: 04/27/22 09:51 Dose: 1,000 mg Documented by: Acetaminophen (Acetaminophen 325 Mg Tab) 325 mg PO Q6H PRN PRN Reason: Mild Pain Stop: 05/26/22 05:54 Allopurinol (Allopurinol 100 Mg Tab) 100 mg PO QPM [facility] Stop: 05/26/22 20:59 Last Admin: 04/26/22 20:12 Dose: 100 mg Documented by: Aspirin (Aspirin 81 Mg Ectab) 81 mg PO QAM [facility] Stop: 05/26/22 08:59 Last Admin: 04/27/22 09:52 Dose: 81 mg Documented by: Benzonatate (Benzonatate 100 Mg Capsule) 200 mg PO TID [facility] Stop: 05/27/22 13:59 Carvedilol (Carvedilol 25 Mg Tab) 25 mg PO BID [facility] Stop: 05/26/22 08:59 Last Admin: 04/27/22 09:52 Dose: 25 mg Documented by: Cyanocobalamin (Cyanocobalamin (B-12) 500 Mcg Tablet) 500 mcg PO QAM [facility] Stop: 05/26/22 08:59 Last Admin: 04/27/22 09:52 Dose: 500 mcg Documented by: Dextrose (Dextrose 50% 50 Ml Syringe) 25 - 50 ml IV UD PRN; Protocol PRN Reason: Hypoglycemia Protocol Stop: 05/26/22 05:54 Glucagon (Glucagon For Inj 1 Mg Vial) 1 mg SQ UD PRN; Protocol PRN Reason: Hypoglycemia Protocol Stop: 05/26/22 05:54 Glucose (Glucose 10 Tabs/Tube) 4 - 8 tabs PO UD PRN; Protocol PRN Reason: Hypoglycemia Protocol Stop: 05/26/22 05:54 Glucose (Glucose 40% Gel 15 Gm Tube) 15 - 30 gm PO UD PRN; Protocol PRN Reason: Hypoglycemia Protocol Stop: 05/26/22 05:54 Guaifenesin/Dextromethorphan (Guaifenesin/Dextrom Syrup 200mg/20mg 10ml Udc) 10 ml PO QID [facility] Stop: 05/27/22 16:59 Heparin Sodium (Porcine) (Heparin Sod 5,000 Unit/0.5 Ml Vial) 5,000 units SQ Q8 [facility] Stop: 05/26/22 05:59 Last Admin: 04/27/22 13:12 Dose: 5,000 units Documented by: Hydralazine HCl (Hydralazine Tab 50 Mg Tab) 100 mg PO Q8H [facility] Stop: 05/26/22 08:59 Last Admin: 04/27/22 09:52 Dose: 100 mg Documented by: Promethazine HCl 12.5 mg/ (Sodium Chloride) 50.5 mls @ 202 mls/hr IV Q6H PRN PRN Reason: Nausea And Vomiting Stop: 05/26/22 05:54 Lorazepam 0.25 mg/ Syringe 0.25 mls @ 2 mls/min IV Q6H PRN PRN Reason: Anxiety Stop: 05/26/22 05:54 Cefepime HCl 1,000 mg/ Syringe 11.3 mls @ 5.5 mls/min IV Q24H [facility]; Protocol Stop: 05/07/22 08:59 Last Admin: 04/27/22 09:52 Dose: 5.5 mls/min Documented by: Insulin Aspart (Insulin Aspart Per Unit) 0 units SC ACHS [facility] Stop: 05/26/22 05:54 Last Admin: 04/27/22 13:00 Dose: 3 units Documented by: Insulin Glargine (Lantus Per Unit Charge) 5 units SQ HS [facility] Stop: 05/26/22 22:14 Last Admin: 04/27/22 00:17 Dose: 5 units Documented by: Isosorbide Dinitrate (Isosorbide Dinitrate 20 Mg Tab) 20 mg PO TID@0700,1200,1700 [facility] Stop: 05/26/22 06:59 Last Admin: 04/27/22 13:12 Dose: 20 mg Documented by: Miscellaneous (Carbohydrates For Hypoglycemia ) 15 - 30 gm PO UD PRN PRN Reason: Hypoglycemia Protocol Stop: 05/26/22 05:54 Pregabalin (Pregabalin 25 Mg Cap) 25 mg PO AMHS [facility] Stop: 05/26/22 08:59 Last Admin: 04/27/22 09:52 Dose: 25 mg Documented by: Rosuvastatin Calcium (Rosuvastatin Calcium 10 Mg Tab) 10 mg PO HS [facility] Stop: 05/26/22 20:59 Last Admin: 04/26/22 20:12 Dose: 10 mg Documented by: Saccharomyces Boulardii (Saccharomyces Boulardii 250 Mg Cap) 250 mg PO QAM [facility] Stop: 05/26/22 08:59 Last Admin: 04/27/22 09:52 Dose: 250 mg Documented by: Tramadol HCl (Tramadol Hcl 50 Mg Tablet) 25 - 50 mg PO Q12H PRN PRN Reason: Pain Stop: 05/26/22 05:54
[2022-04-27] MEDS: BENZONATATE 100 MG CAPSULE PO SCH ×2 (15:27→21:05)
[2022-04-27] MEDS ORDERED: D5W AND 1/2NSS 1,000 ML IV SCH (17:15)
[2022-04-27] MEDS: guaiFENesin/DEXTROM SYRUP 200MG/20MG 10ML UDC PO SCH ×2 (17:54→21:05)
[2022-04-27] MEDS: SODIUM CHLORIDE 0.9% 1000ML 1,000 ML IV SCH (18:09)
[2022-04-27] MEDS: allopurinoL 100 MG TAB PO SCH (21:05)
[2022-04-27] MEDS: ROSUVASTATIN CALCIUM 10 MG TAB PO SCH (21:05)
[2022-04-28] MEDS: hydrALAZINE TAB 50 MG TAB PO SCH ×2 (02:00→09:44)
[2022-04-28] MEDS: SODIUM CHLORIDE 0.9% 1000ML 1,000 ML IV SCH (02:04)
[2022-04-28] MEDS: ISOSORBIDE DINITRATE 20 MG TAB PO SCH ×2 (06:28→12:43)
[2022-04-28] MEDS: HEPARIN SOD 5,000 UNIT/0.5 ML VIAL SQ SCH ×2 (06:28→12:44)
[2022-04-28 07:11] LABS: Basophils # (auto) 0.02 K/uL (0-0.2); Basophils % (auto) 0.4 %; Eosinophils # (auto) 0.29 K/uL (0-0.50); Eosinophils % (auto) 5.1 %; Hematocrit (blood only) 25.2 % (34.1-44.9); Hemoglobin 7.9 g/dl (12.0-16.0); Immature Granulocytes % (auto) 1.8 %; Lymphocytes # (auto) 0.87 K/uL (1.2-3.4); Lymphocytes % (auto) 15.3 %; Mean Corpuscular Hemoglobin 29.6 pg (25.0-34.0); Mean Corpuscular Hgb Conc 31.3 g/dL (32.0-36.0); Mean Corpuscular Volume 94.4 fL (80.0-100.0); Mean Platelet Volume 9.5 fL (9.4-12.3); Monocytes # (auto) 0.76 K/uL (0.24-0.82); Monocytes % (auto) 13.4 %; Neutrophils # (auto) 3.63 K/uL (1.4-6.5); Platelet Count 238 K/uL (130-400); RDW Coefficient of Variation 13.8 % (11.5-14.5); RDW Standard Deviation 47.9 fL (36.4-46.3); Red Blood Count 2.67 M/uL (3.93-5.22); White Blood Count 5.67 K/ul (4.8-10.8)
[2022-04-28 07:30] LABS: BUN Creatinine Ratio 26.3 (10-20); C Reactive Protein 4.14 mg/dl (0-0.5); Calcium 8.8 mg/dl (8.5-10.1); Creatinine Clr Calc Pharmacy 19.6 ml/min; Est GFR (African American) 20.1 ml/min; Est GFR (Non-African American) 17.3 ml/min; Potassium 3.6 mmol/L (3.5-5.1)
[2022-04-28] MEDS ORDERED: cefTRIAXone SODIUM 2,000 MG in DEXTROSE 5% 50 ML IV SCH (07:30)
[2022-04-28] MEDS ORDERED: cefTRIAXone SODIUM 1,000 MG in DEXTROSE 5% 50 ML IV SCH (07:30)
[2022-04-28 07:46] LABS: Ovalocytes 1+
[2022-04-28] MEDS: PREGABALIN 25 MG CAP PO SCH (09:43)
[2022-04-28] MEDS: ACETAMINOPHEN 500 MG TAB PO SCH (09:43)
[2022-04-28] MEDS: BENZONATATE 100 MG CAPSULE PO SCH ×2 (09:44→12:44)
[2022-04-28] MEDS: CYANOCOBALAMIN (B-12) 500 MCG TABLET PO SCH (09:44)
[2022-04-28] MEDS: ASPIRIN 81 MG ECTAB PO SCH (09:44)
[2022-04-28] MEDS: guaiFENesin/DEXTROM SYRUP 200MG/20MG 10ML UDC PO SCH ×2 (09:44→12:43)
[2022-04-28] MEDS: carvediloL 25 MG TAB PO SCH (09:44)
[2022-04-28] MEDS: SACCHAROMYCES BOULARDII 250 MG CAP PO SCH (09:45)
[2022-04-28] MEDS: INSULIN ASPART PER UNIT SC SCH ×2 (10:14→12:32)
--- NOTE | 2022-04-28 17:31 | Discharge Summary ---
Date of Service April 28, 2022 Admission HPI Per Admitting Provider History obtained from patient and records. Medical history significant for chronic diastolic heart failure (EF 55 to 60%, TTE 2019), chronic left bundle branch block, PAF as per records, PVD, hypertension, DM2 insulin requiring, CRI (baseline creatinine 2.5), GERD, chronic constipation, chronic anemia (baseline hemoglobin of 9). Last confinement December 2021 for thoracic fracture secondary to ambulatory dysfunction. No surgical intervention. Patient not feeling well the last few days. Flulike illness. No known COVID-19 contacts. Junky cough symptoms productive of grayish white sputum. Some shortness of breath without fluid retention. Patient completed COVID-19 vaccination. Achy abdominal pain without dysuria symptoms. Patient had a fall at home preceded by lightheadedness. Head trauma without LOC/syncope. Chest pain. Patient brought to the ER for evaluation. IV Zosyn administered at the ER. MEDICAL HISTORY: As above. SURGERIES: She has had knee surgeries, hysterectomy, bilateral tubal ligation, cholecystectomy and appendectomy. FAMILY HISTORY: Laryngeal cancer, stroke and throat cancer. 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 Admission Exam Per Admitting Provider GENERAL: Anxious, obese, uncomfortable, no respiratory distress SKIN: Pallor, warm HEENT: Pale palpebral conjunctivae, no ptosis, dry buccal mucosa NECK : Supple, short neck, no tenderness CHEST : Decreased breath sounds, no tenderness HEART : RRR, no obvious murmurs ABDOMEN: Some distention, minimal hypogastric tenderness EXTREMITIES : Minimal LE swelling , no LE tenderness, no other conspicuous deformities noted NEUROLOGIC : Coherent, no facial asymmetry, no other gross focality Principal Diagnosis Uncomplicated UTI, COVID 19 infection, generalized weakness, 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 Discharge Exam General: Elderly female,sitting in chair, not in distress, on room air HEENT: EOMI, PATRICIA, MMM Chest: Fair breath sounds bilaterally, no wheezes or crackles CVS: Regular rate and rhythm, normal heart sounds, no murmur Abdomen: Soft, non tender, not distended, normal bowel sounds Neuro: Awake, alert, oriented, conversing well, non focal Extremities: No cyanosis, clubbing or edema Discharge Data Allergies Allergy/AdvReac Type Severity Reaction Status Date / Time No Known Allergies Allergy Verified 04/26/22 01:23 Consultations 04/26/22 02:11 ED Decision to Admit Stat Ordered Studies 04/26/22 00:17 CT cervical spine wo con Urgent CT head/brain wo con Urgent 04/26/22 03:43 CT abd pelvis wo con Urgent Laboratory Results WBC 5.67 K/ul (4.8-10.8) 04/28/22 06:48 RBC 2.67 M/uL (3.93-5.22) L 04/28/22 06:48 Hgb 7.9 g/dl (12.0-16.0) L 04/28/22 06:48 Hct 25.2 % (34.1-44.9) L 04/28/22 06:48 MCV 94.4 fL (80.0-100.0) 04/28/22 06:48 MCH 29.6 pg (25.0-34.0) 04/28/22 06:48 MCHC 31.3 g/dL (32.0-36.0) L 04/28/22 06:48 RDW Std Deviation 47.9 fL (36.4-46.3) H 04/28/22 06:48 RDW Coeff of Noemy 13.8 % (11.5-14.5) 04/28/22 06:48 Plt Count 238 K/uL (130-400) 04/28/22 06:48 MPV 9.5 fL (9.4-12.3) 04/28/22 06:48 Immature Gran % (Auto) 1.8 % 04/28/22 06:48 Neut % (Auto) 64.0 % 04/28/22 06:48 Lymph % (Auto) 15.3 % 04/28/22 06:48 Dickens % (Auto) 13.4 % 04/28/22 06:48 Eos % (Auto) 5.1 % 04/28/22 06:48 Baso % (Auto) 0.4 % 04/28/22 06:48 Neut # (Auto) 3.63 K/uL (1.4-6.5) 04/28/22 06:48 Lymph # (Auto) 0.87 K/uL (1.2-3.4) L 04/28/22 06:48 Dickens # (Auto) 0.76 K/uL (0.24-0.82) 04/28/22 06:48 Eos # (Auto) 0.29 K/uL (0-0.50) 04/28/22 06:48 Baso # (Auto) 0.02 K/uL (0-0.2) 04/28/22 06:48 Immature Gran # (Auto) 0.10 K/uL (0.00-0.02) H 04/28/22 06:48 Ovalocytes 1+ 04/28/22 06:48 PT 10.7 Seconds (9.0-12.0) 04/26/22 00:20 INR 1.0 (0.9-1.1) 04/26/22 00:20 APTT 39.0 Seconds (21.0-31.0) H 04/26/22 00:20 PTT Ratio 1.4 04/26/22 00:20 Sodium 139 mmol/L (136-145) 04/28/22 06:48 Potassium 3.6 mmol/L (3.5-5.1) 04/28/22 06:48 Chloride 106 mmol/L (98-107) 04/28/22 06:48 Carbon Dioxide 26 mmol/L (21-32) 04/28/22 06:48 Anion Gap 7 (3-11) 04/28/22 06:48 BUN 64 mg/dl (6-23) H 04/28/22 06:48 Creatinine 2.43 mg/dl (0.6-1.2) H D 04/28/22 06:48 Est Cr Clr Drug Dosing 19.6 ml/min 04/28/22 06:48 Est GFR ( Amer) 20.1 ml/min 04/28/22 06:48 Est GFR (Non-Af Amer) 17.3 ml/min 04/28/22 06:48 BUN/Creatinine Ratio 26.3 (10-20) H 04/28/22 06:48 Glucose 123 mg/dl (70-99(Fasting)) H 04/28/22 06:48 POC Glucose 202 mg/dl (70-99) H 04/28/22 12:13 Lactate 1.0 mmol/L (0.4-2.0) 04/26/22 00:20 Calcium 8.8 mg/dl (8.5-10.1) 04/28/22 06:48 Magnesium 2.2 mg/dl (1.7-2.4) 04/26/22 00:20 Total Bilirubin 1.3 mg/dl (0.2-1.0) H 04/26/22 00:20 AST 19 U/L (13-39) 04/26/22 00:20 ALT 12 U/L (7-52) 04/26/22 00:20 Alkaline Phosphatase 55 U/L (34-104) 04/26/22 00:20 Troponin I High Sens 13.2 pg/ml (0-14) 04/26/22 00:20 C-Reactive Protein 4.14 mg/dl (0-0.5) H 04/28/22 06:48 Total Protein 6.7 gm/dl (6.0-8.3) 04/26/22 00:20 Albumin 4.1 gm/dl (3.4-5.0) 04/26/22 00:20 Globulin 2.6 gm/dl (2.5-4.0) 04/26/22 00:20 Albumin/Globulin Ratio 1.6 (0.9-2) 04/26/22 00:20 Lipase 19 U/L (11-82) 04/26/22 00:20 Urine Color Yellow 04/26/22 Unknown Urine Appearance Cloudy (Clear) A 04/26/22 Unknown Urine pH 5.5 (4.5-7.5) 04/26/22 Unknown Ur Specific Sultana 1.013 (1.000-1.030) 04/26/22 Unknown Urine Protein 2+ (Negative) H 04/26/22 Unknown Urine Glucose (UA) Negative (Negative) 04/26/22 Unknown Urine Ketones Negative (Negative) 04/26/22 Unknown Urine Blood Negative (Negative) 04/26/22 Unknown Urine Nitrite Positive (Negative) A 04/26/22 Unknown Urine Bilirubin Negative (Negative) 04/26/22 Unknown Urine Urobilinogen Negative (Negative) 04/26/22 Unknown Ur Leukocyte Esterase 1+ (Negative) H 04/26/22 Unknown Urine WBC (Auto) >30 /hpf (0-5) H 04/26/22 Unknown Urine RBC (Auto) 0-4 /hpf (0-4) 04/26/22 Unknown U Hyaline Cast (Auto) 1-5 /lpf (0-5) 04/26/22 Unknown U Epithel Cells (Auto) >30 /lpf (0-5) H 04/26/22 Unknown Urine Bacteria (Auto) 4+ (Negative) H 04/26/22 Unknown Urine Yeast Present (None Prsent) A 04/26/22 Unknown Adenovirus (PCR) Not Detected (NotDetected) 04/26/22 00:40 B. pertussis DNA (PCR) Not Detected (NotDetected) 04/26/22 00:40 B.parapertussis DNA PCR Not Detected (NotDetected) 04/26/22 00:40 C. pneumoniae DNA (PCR) Not Detected (NotDetected) 04/26/22 00:40 Coronavirus OC43 (PCR) Not Detected (NotDetected) 04/26/22 00:40 Coronavirus HKU1 (PCR) Not Detected (NotDetected) 04/26/22 00:40 Coronavirus 229E (PCR) Not Detected (NotDetected) 04/26/22 00:40 SARS-CoV-2 (PCR) DETECTED (NotDetected) A* 04/26/22 00:40 Coronavirus NL63 (PCR) Not Detected (NotDetected) 04/26/22 00:40 Human Metapneumovir PCR Not Detected (NotDetected) 04/26/22 00:40 Influenza Type A (PCR) Not Detected (NotDetected) 04/26/22 00:40 Influenza Type B (PCR) Not Detected (NotDetected) 04/26/22 00:40 M. pneumoniae (PCR) Not Detected (NotDetected) 04/26/22 00:40 Parainfluenza 1 (PCR) Not Detected (NotDetected) 04/26/22 00:40 Parainfluenza 2 (PCR) Not Detected (NotDetected) 04/26/22 00:40 Parainfluenza 3 (PCR) Not Detected (NotDetected) 04/26/22 00:40 Parainfluenza 4 (PCR) Not Detected (NotDetected) 04/26/22 00:40 RSV (PCR) Not Detected (NotDetected) 04/26/22 00:40 Entero/Rhino (PCR) Not Detected (NotDetected) 04/26/22 00:[address] 04/26/22 00:17 CT SCAN OF THE CERVICAL SPINE CLINICAL HISTORY: Trauma. Fall. COMPARISON STUDY: CT of the cervical spine dated 12/22/2021. TECHNIQUE: CT scan of the cervical spine is performed from the skull base to the upper thoracic spine. Images are reviewed in the axial, sagittal, and coronal planes. IV contrast was not administered for this examination. A dose lowering technique was utilized adhering to the principles of ALARA. FINDINGS: Skeletal structures: The skeletal structures are heterogeneously osteopenic. There is no evidence of fracture or subluxation involving the cervical spine. Vertebral body height and alignment are maintained. The odontoid process and lateral masses are intact. The atlantoaxial articulation is preserved noting productive degenerative change. The spinous processes appear intact. There is mild facet arthropathy noted in the cervical spine. Intervertebral discs: The disc spaces are maintained. Central canal: Grossly patent. Soft tissues: The prevertebral and paraspinous soft tissues are within normal limits. The thyroid gland is enlarged and heterogeneous. Coarse calcifications are seen in the left lobe. Calvarium: The visualized calvarium at the skull base appears intact. Brain parenchyma: Partially visualized brain parenchyma at the skull base is within normal limits. Sinuses and mastoids: Trace mucosal thickening is noted in the right sphenoid sinus and the right maxillary antrum. The mastoid air cells are well pneumatized. Lung apices: Clear as visualized. IMPRESSION: There is no evidence of fracture or subluxation involving the cervical spine. ACT 112: Negative or not required by law. Electronically signed by: Marco Morocho M.D. 04/26/2022 7:27 AM Chest X-Ray 04/26/22 00:17 XR chest 1V portable CLINICAL HISTORY: SEPSIS TECHNIQUE: Single frontal radiograph of the chest was obtained. Comparison: Comparison is made to chest radiograph 12/22/2021 FINDINGS: Exam is limited by underpenetration. Cardiomegaly is noted. The lungs are clear. No evidence of pleural effusion or pneumothorax. IMPRESSION: No acute chest disease. Cardiomegaly is noted. ACT 112: Negative or not required by law. Electronically signed by: Win Scott M.D. 04/26/2022 8:[address] 04/26/22 00:17 CT SCAN OF THE BRAIN WITHOUT IV CONTRAST CLINICAL HISTORY: Fall. Head injury. COMPARISON STUDY: CT of the brain dated 12/22/2021. TECHNIQUE: Unenhanced axial CT scan of the brain is performed from the vertex to the skull base. A dose lowering technique was utilized adhering to the principles of ALARA. CT DOSE: 1140.00 mGy.cm FINDINGS: Brain parenchyma: There is age-related involutional change noting mild to moderate patchy subcortical and periventricular microangiopathic disease. There is no hemorrhage, mass effect, or evidence of acute territorial ischemia by CT criteria. Sher-white matter differentiation is preserved. No extra-axial fluid collection is seen. Ventricles, sulci, cisterns: Prominent secondary to involutional change. Intracranial vasculature: There is atherosclerotic calcification of the cavernous carotid and vertebral arteries. Calvarium: The skeletal structures are osteopenic. No depressed calvarial fracture is identified. Soft tissues: There is a posterior scalp hematoma. Sinuses and mastoids: There is trace mucosal thickening within the maxillary antra. The remaining paranasal sinuses are clear. The mastoid air cells are well pneumatized. Orbits: The bony orbits are grossly intact. IMPRESSION: There is no hemorrhage, mass effect, or evidence of acute territorial ischemia by CT criteria. ACT 112: Negative or not required by law. Electronically signed by: Marco Morocho M.D. 04/26/2022 7:10 AM Abdomen/Pelvis CT 04/26/22 03:43 CT SCAN OF THE ABDOMEN AND PELVIS WITHOUT IV CONTRAST CLINICAL HISTORY: Generalized abdominal pain. COMPARISON STUDY: Abdominal CT dated 12/12/2021. Renal ultrasound dated 11/18/2020. TECHNIQUE: CT scan of the abdomen and pelvis is performed from the lung bases to the proximal femora. Images are reviewed in the axial, sagittal, and coronal planes. IV contrast was not administered for this examination. Note that the examination was performed in significantly suboptimal fashion without oral and IV contrast. A dose lowering technique was utilized adhering to the principles of ALARA. CT DOSE: 1238.07 mGy.cm FINDINGS: Lung bases: The heart is enlarged and and without pericardial effusion. The coronary arteries are densely calcified. There is a tiny hiatal hernia. The lung bases are clear noting bibasilar scarring/atelectasis. Liver: The unenhanced liver is normal in size, contour, and attenuation. There is no intrahepatic biliary ductal dilatation. A 1.8 cm cyst is noted in the left lobe. Gallbladder: Surgically absent noting clips in the gallbladder fossa. Spleen: Normal in size and attenuation. Pancreas: The unenhanced pancreas is moderately atrophic and grossly unremarkable. 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 The right adrenal gland is normal in appearance. Kidneys: The unenhanced kidneys are atrophic. There is dilatation of the left upper pole collecting system secondary to a 5.3 cm complex lesion in the left renal pelvis. Additional complex lesion identified in both kidneys seen in the left lower pole on image #203 and in the right lower pole on image #274. These are unchanged from prior studies. No renal calculi are identified. Abdominal vasculature: The abdominal aorta is normal in course and caliber noting advanced atherosclerotic calcification. Bowel: There is moderate to advanced colonic diverticulosis without CT evidence of acute diverticulitis. No bowel obstruction is identified. The appendix is not identified. Peritoneum: There is no intraperitoneal free air or abdominal ascites. Foci of induration within the ventral abdominal wall are likely related subcutaneous injections. Lymphadenopathy: None. Pelvic viscera: The bladder is distended but otherwise normal as visualized. The uterus is surgically absent. No adnexal lesion is seen. Skeletal structures: The skeletal structures are osteopenic. There is mild to moderate lumbosacral spondylosis. No lytic or blastic lesions are seen. IMPRESSION: 1. No acute infectious or inflammatory findings are identified in the abdomen or pelvis. 2. Moderate to advanced colonic diverticulosis without CT evidence of acute diverticulitis. 3. Indeterminant complex lesions are again seen in both kidneys and similar to prior examinations. These likely represent complex cysts when correlated with the 11/18/2020 and ultrasound. The largest lesion in the left left renal pelvis causes dilatation of the left upper pole collecting system. 4. Additional findings as above. ACT 112: Negative or not required by law. Electronically signed by: Marco Morocho M.D. 04/26/2022 8:35 AM Hospital Course (1) UTI (urinary tract infection): (2) COVID: (3) Acute kidney injury superimposed on CKD: (4) Type 2 diabetes mellitus with hyperglycemia: (5) Generalized weakness: Hospital course 86 year old female with DM, CKD4, HTN who presented to the ED on 04/26 with cough, congestion, generalized weakness, aches, feeling hot and cold with sweats for past few days. She was found to have E coli UTI, COVID 19 infection and MISTI on CKD. She was initially treated with cefepime->ceftriaxone and changed to vantin renally dosed at discharge to complete the antibiotic course. Her MISTI on CKD4 resolved with holding diuretics and gentle IVF. She was treated conservatively for her COVID19 with antitussives- no decadron or antivirals were required- she has significantly felt better today and feels ready to go to the rehab. Her drop is Hb is likely dilutional as there is no evidence of bleeding. She is going to [facility]. She is comfortable and stable for discharge. Hospital problems: Uncomplicated Ecoli UTI- Pansensitive. S/p cefepime->ceftriaxone. Changed to vantin 200 mg daily, renally dosed for 4 more days to complete antibiotic course. Blood culture negative. CT A/P with no acute finding. COVID19 infection with hypoxia- no PNA, no indication for steroids or remdesevir currently. - Hypoxia resolved. Sputum culture with normal jonah. Symptoms improved with conservative management - Recommend isolation for 1 more week - Continue robitussin DM, tessalon perles, IS, Flutter valve, self prone if able. CRP improving. MISTI on CKD4- resolved, Cr down to 2.4 with holding diuretic and gentle IVF. Baseline Cr seems to be 2-2.5 and had peaked to 3.28 on admission. - Recommend holding diuretics at discharge until normal oral intake. - Recommend follow up BMP and follow up with nephrology as OP Diabetes mellitus type II with hyperglycemia- Continue insulin. Further manageme nt per rehab physician. Essential hypertension- BP stable, continue Coreg, hydralazine Generalized weakness- due to UTI and covid. PT OT recommended rehab. Going to [facility] for rehab today. Total Time Total Time Spent Total Time Spent (In Minutes): 40 Discharge Plan Discharge Items Patient Disposition: Transfer Inpatient Rehab Fac Reason For Visit: COMP UTI, COVID Discharge Diagnosis: UTI, Covid 19, MISTI on CKD4 Condition on Discharge: Good Activity: Resume your previous activity Non-emergency contact: Primary Care Provider Call non-emergency contact if: you have any medication questions, your symptoms worsen and you have a fever Follow-up/Referrals: Fox Ramirez MD [Primary Care Provider] - Diet: Carb Consistent or DM2 and Dialysis Renal Addtl Attending Provider Instructions: Continue vantin once daily starting tomorrow morning for 4 more days. Recommend holding your lasix for now until your oral intake improves. Your rehab doctors will decide when to resume your lasix. Recommend isolation for 1 more week due to recent COVID 19 diagnosis. Continue the cough medications as needed Continue the incentive spirometer and flutter valve. Pending Studies at Discharge: No Stand-Alone Forms: My [facility] Skilled Items Patient informed of condition?: Yes DNR: No Discharge Level of Care: Acute rehab Communicable Disease: Yes Discharge Prognosis: Stable Lines: None Urinary Catheter: No Medications and DC Order Prescriptions: New benzonatate 100 mg Capsule 200 mg PO TID Qty: 30 RF: 0 Robitussin Cough-Chest Killian DM 5-100 mg/5 mL Liquid 10 ml PO QID Qty: 400 RF: 0 cefpodoxime 200 mg tablet 200 mg PO DAILY 4 Days Qty: 4 RF: 0 Continued furosemide 40 mg tablet 40 mg PO QAM RF: 0 ondansetron 4 mg tablet,disintegrating 4 mg PO Q6H PRN (Reason: nausea and vomiting) Qty: 14 RF: 0 lidocaine [Salonpas (lidocaine)] 4 % Adhesive Patch,Medicated 1 patch TOPICAL DAILY PRN (Reason: Pain) RF: 0 aspirin 81 mg Tablet,Delayed Release (Dr/Ec) 81 mg PO QAM RF: 0 isosorbide dinitrate 20 mg tablet 20 mg PO TID RF: 0 rosuvastatin 10 mg tablet 10 mg PO HS RF: 0 famotidine [Pepcid] 20 mg Tablet 20 mg PO QPM@1700 RF: 0 hydralazine 100 mg tablet 100 mg PO TID RF: 0 carvedilol 25 mg tablet 25 mg PO BID RF: 0 acetaminophen [Tylenol Extra Strength] 500 mg Tablet 1,000 mg PO AMHS RF: 0 simethicone 80 mg Tablet,Chewable 80 mg PO DIRECTED PRN (Reason: GAS DISCOMFORT) RF: 0 allopurinol 100 mg tablet 200 mg PO QPM RF: 0 calcitriol 0.25 mcg capsule 0.25 mcg PO QAM RF: 0 pregabalin [Lyrica] 25 mg capsule 25 mg PO AMHS RF: 0 Humulin 70/30 U-100 Insulin 100 unit/mL (70-30) suspension See Rx Instructions .ROUTE .COMPLEX RF: 0 diclofenac sodium 1 % gel 4 g TOP QID PRN (Reason: Pain) RF: 0 cyanocobalamin (vitamin B-12) 500 mcg Tablet 500 mcg PO QAM Qty: 30 RF: 0 Saccharomyces boulardii [Florastor] 250 mg capsule 250 mg PO QAM RF: 0 Discharge Orders: Discharge Order (Routine); Ordered 04/28/22 Ordered By: Vahid Giles Admission Data Admit Date/Time: 04/26/22 03:47 Attending Provider: Vahid Giles Admit Provider: Flavio Doherty Primary Care Provider: Fox Ramirez Other Providers: Flavio Doherty ; [facility] Other Interventions: Discharge Summary Assessment (RN) Last Done: 04/28/22 16:13
== END 2022-04-28 17:23 | DRG 689 ==
LOC: ED 00:12 → 3N 03:47

== ENCOUNTER 2022-05-14 13:01 | Inpatient (IN) ==
--- NOTE | 2022-05-14 13:16 | Emergency Department Note ---
Impression & Plan Sepsis, Anemia, Diverticulitis, COVID-19 ED Provider Note NAME: BELKIS LERMA AGE: 86 SEX: F : 1935 ARRIVES VIA: Walk-In INFORMANT: Patient, ED PROVIDER(S): Manolo Solis MD Chief Complaint: Nausea, diarrhea, weakness HPI: Patient presents with the above complaints. The patient does present with 2 days of diarrhea and believes that she has had bowel movements approximate 30 times in the last 2 days. No blood. The patient has been urinating but with decreased frequency. Patient denies any chest pains or shortness of breath but has had some increasing weakness that is generalized in nature. This is in the setting of the patient having COVID at the beginning of the month requiring an inpatient hospitalization for approximately 1 week and then subsequently spent a time at [facility] rehab but was discharged 2 Fridays ago. The patient does have some PT that is coming to the home. Patient did deliver a stool sample today at [facility] to evaluate for the possibility of C. difficile. The patient had been on antibiotics while as an inpatient. Patient has had nausea but no vomiting. The patient denies any chest pains or shortness of breath. The patient states that she had decreased appetite. ROS: See HPI for pertinent positives and negatives. A total of 10 systems were reviewed and otherwise negative. Past medical history: See below Surgical history: See below Social history: See below Physical Exam: GENERAL: Fatigued in appearance, wearing a mask, non-toxic. Wearing glasses. EYE EXAM: Normal conjunctiva. PERRL, no anisocoria and EOM's grossly intact w/o pain. NECK: Supple, no nuchal rigidity, no adenopathy, non-tender. No signs of meningismus. FROM of the neck with good chin to chest and neck extension. No stridor. LUNGS: Clear to auscultation. Normal chest wall mechanics. HEART: NSR, no MRG. ABDOMEN: Abdomen soft, upper abdominal discomfort, no lower abdominal pain, normo-active bowel sounds, no masses, no rebound or guarding. BACK: No CVA TTP. SKIN: No rashes and no bruising. UPPER EXTREMITIES: Upper extremities are grossly normal. LOWER EXTREMITIES: Grossly normal, no edema. NEURO EXAM: A&O x3, cranial nerves II-XII grossly intact, normal speech, moves a ll 4 extremities. Differential diagnoses: Appendicitis, ovarian cyst, ovarian torsion, ectopic , TOA, PID, infections, diverticulitis, UTI, obstruction, mesenteric ischemia, aortic pathology, inflammatory bowel disease, renal colic, PUD, pancreatitis, biliary pathology, hernia, volvulus, constipation, as well as other pathologies. Course: Patient was seen and evaluated the bedside. Full history physical exam was performed. EKG interpreted by me Normal sinus rhythm, rate of 98, borderline TN 200, normal QRS, normal axis, no obvious ST elevations Imaging Studies: See Below Cardiac monitoring: An order was placed for continuous cardiac monitoring. The monitor shows a rate of 92 with sinus rhythm. MDM: Patient presents due to concern for weakness diarrhea nausea and does have associated abdominal pain. Blood work is obtained. Patient also had a CT of the abdomen pelvis ordered. Noncontrast given the patient's prior history of CKD. Patient is a white count of 17 with a hemoglobin 9. Hemoglobin appears to be relatively chronic and stable with a normal platelet count. Kidney function more or less at baseline with a creatinine 2.8. Patient did receive IV fluids. Chest x-ray read as possible vascular congestion but clinically believe the patient is dry. Patient CT does show concern for diverticulitis. The patient prior to this was noted to have a fever and when the patient did have a fever the patient was ordered blood cultures a lactate and Zosyn. Stool studies pending. Patient still COVID-positive. I did speak with the on-call hospitalist Dr. Pace. Patient was admitted to the medicine service. Was found to the patient is positive for C. difficile. Past Med/Surg History Medical History CHF (congestive heart failure) follows with Kaushal Nieto PA-C Chronic back pain Chronic kidney disease (CKD), stage IV (severe) follows with Dr. Childress Diabetes mellitus, type 2 Diverticulitis large intestine hx Hearing deficit History of kidney stones HTN (hypertension) Hyperlipidemia Kidney cysts LEFT SIDE>BEING MONITORED BY UROLOGY [facility] Morbid obesity with BMI of 40.0-44.9, adult Nocturnal hypoxemia On home oxygen therapy 2L N/C at HS only Osteoarthritis Surgical History H/O: hysterectomy History of arthroscopy of left knee History of bilateral tubal ligation History of cardiac cath ?2009--@ [facility] [place]--no stents History of colonoscopy History of cystoscopy History of dilatation and curettage History of esophagogastroduodenoscopy (EGD) History of tooth extraction all teeth Hx of appendectomy Hx of cholecystectomy Nausea and vomiting after administration of anesthetic agent Family History Sister Family history of diabetes mellitus Sister Family history of diabetes mellitus Brother Family history of diabetes mellitus Family history of esophageal cancer Brother Family history of esophageal cancer Father Lung cancer Other No family history of adverse response to anesthesia No significant family history Social History Smoking Status: Never smoker Second Hand Exposure: No; Hx Alcohol Use: No Hx Substance Use: No Preferred Language: Faroese Communication Ability: Effective 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 Beliefs That Will Affect Care: None marital status: / Current Living Situation: Family Current Living Situation Comment: Son and daughter in law Feels Safe at Home: Yes Assistive Devices: Walker Allergies Allergies Allergy/AdvReac Type Severity Reaction Status Date / Time No Known Allergies Allergy Verified 05/09/22 13:04 Home Meds Home Medications Medication Instructions Recorded Confirmed aspirin 81 mg tablet,delayed 81 mg PO QAM 12/30/18 05/09/22 release isosorbide dinitrate 20 mg tablet 20 mg PO TID 12/30/18 05/09/22 rosuvastatin 10 mg tablet 10 mg PO HS 12/30/18 05/09/22 famotidine 20 mg tablet (Pepcid) 20 mg PO QPM@1700 11/18/19 05/09/22 lidocaine 4 % topical patch 1 patch topical DAILY PRN Pain 06/23/20 05/09/22 (Salonpas (lidocaine)) insulin human U-100 NPH-regulr See Rx Instructions .Route .COMPLEX 03/16/21 05/09/22 70-30 mix 100 unit/mL subcutaneous susp (Humulin 70/30 U-100 Insulin) diclofenac sodium 1 % topical gel 4 g topical QID PRN Pain 03/17/21 05/09/22 carvedilol 25 mg tablet 25 mg PO BID 06/13/21 05/09/22 hydralazine 100 mg tablet 100 mg PO TID 06/13/21 05/09/22 Saccharomyces boulardii 250 mg 250 mg PO QAM 08/26/21 05/09/22 capsule (Florastor) furosemide 40 mg tablet 40 mg PO QAM 03/28/22 05/09/22 acetaminophen 500 mg tablet 1,000 mg PO AMHS 04/26/22 05/09/22 (Tylenol Extra Strength) allopurinol 100 mg tablet 200 mg PO QPM 04/26/22 05/09/22 calcitriol 0.25 mcg capsule 0.25 mcg PO QAM 04/26/22 05/09/22 pregabalin 25 mg capsule (Lyrica) 25 mg PO AMHS 04/26/22 05/09/22 simethicone 80 mg chewable tablet 80 mg PO DIRECTED PRN GAS 04/26/22 05/09/22 DISCOMFORT Previous Rx's Medication Instructions Recorded cyanocobalamin (vitamin B-12) 500 500 mcg PO QAM #30 tabs 03/27/21 mcg tablet ondansetron 4 mg disintegrating 4 mg PO Q6H PRN nausea and 11/25/21 tablet vomiting #14 tabs benzonatate 100 mg capsule 200 mg PO TID #30 caps 04/28/22 Results & Data (ED) Vital Signs Vital Signs - 24 hr 05/14/22 13:06 05/14/22 14:19 05/14/22 14:27 Temperature 37.3 C 37.9 C H Temperature Source Temporal Artery Scan Oral Pulse Rate 98 H Pulse Rate [Apical] 100 H Pulse Rate from SpO2 Sensor Respiratory Rate 23 27 H Blood Pressure 153/63 H Blood Pressure [Left Arm] 152/62 H Blood Pressure Mean 93 Blood Pressure Mean [Left Arm] 92 Pulse Oximetry 94 92 Oxygen Delivery Method Room Air Room Air Room Air Sepsis Recent Fever Within 48 Hours No Sepsis New/Unexplained Change in Mental Status N/A Sepsis Action Taken by Nursing No Action Required 05/14/22 15:33 05/14/22 14:35 05/14/22 15:34 Temperature 37.4 C Temperature Source Oral Pulse Rate 100 H 98 H Pulse Rate [Apical] Pulse Rate from SpO2 Sensor 100 H Respiratory Rate 25 H Blood Pressure Blood Pressure [Left Arm] Blood Pressure Mean Blood Pressure Mean [Left Arm] Pulse Oximetry 92 Oxygen Delivery Method Room Air Sepsis Recent Fever Within 48 Hours Sepsis New/Unexplained Change in Mental Status Sepsis Action Taken by Nursing 05/14/22 15:35 05/14/22 15:35 05/14/22 16:00 Temperature Temperature Source Pulse Rate 96 H Pulse Rate [Apical] Pulse Rate from SpO2 Sensor 95 H Respiratory Rate 18 Blood Pressure 158/49 H 141/50 H Blood Pressure [Left Arm] Blood Pressure Mean 85 80 Blood Pressure Mean [Left Arm] Pulse Oximetry 92 Oxygen Delivery Method Room Air Sepsis Recent Fever Within 48 Hours Sepsis New/Unexplained Change in Mental Status Sepsis Action Taken by Nursing 05/14/22 16:00 05/14/22 16:30 05/14/22 16:30 Temperature Temperature Source Pulse Rate 92 H 96 H Pulse Rate [Apical] Pulse Rate from SpO2 Sensor 93 H 97 H Respiratory Rate 22 23 Blood Pressure 156/56 H Blood Pressure [Left Arm] Blood Pressure Mean 89 Blood Pressure Mean [Left Arm] Pulse Oximetry 92 93 Oxygen Delivery Method Room Air Room Air Sepsis Recent Fever Within 48 Hours Sepsis New/Unexplained Change in Mental Status Sepsis Action Taken by Nursing 05/14/22 17:00 05/14/22 17:00 Temperature Temperature Source Pulse Rate 97 H Pulse Rate [Apical] Pulse Rate from SpO2 Sensor 97 H Respiratory Rate 24 Blood Pressure 167/58 H Blood Pressure [Left Arm] Blood Pressure Mean 94 Blood Pressure Mean [Left Arm] Pulse Oximetry 92 Oxygen Delivery Method Room Air Sepsis Recent Fever Within 48 Hours Sepsis New/Unexplained Change in Mental Status Sepsis Action Taken by Residential Medications Current Medication List: was personally reviewed by me Laboratory Data Attestation: I reviewed the patient's lab results. Result diagrams: 05/14/22 14:15 05/14/22 14:15 Lab Results 05/14/22 05/14/22 05/14/22 Range/Units 14:00 14:15 14:15 WBC (4.8-10.8) K/ul RBC (3.93-5.22) M/uL Hgb (12.0-16.0) g/dl Hct (34.1-44.9) % MCV (80.0-100.0) fL MCH (25.0-34.0) pg MCHC (32.0-36.0) g/dL RDW Std Deviation (36.4-46.3) fL RDW Coeff of Noemy (11.5-14.5) % Plt Count (130-400) K/uL MPV (9.4-12.3) fL Immature Gran % (Auto) % Neut % (Auto) % Lymph % (Auto) % [place] % (Auto) % Eos % (Auto) % Baso % (Auto) % Neut # (Auto) (1.4-6.5) K/uL Lymph # (Auto) (1.2-3.4) K/uL [place] # (Auto) (0.24-0.82) K/uL Eos # (Auto) (0-0.50) K/uL Baso # (Auto) (0-0.2) K/uL Immature Gran # (Auto) (0.00-0.02) K/uL PT 10.4 (9.0-12.0) Seconds INR 1.0 (0.9-1.1) Sodium 135 L (136-145) mmol/L Potassium 3.6 (3.5-5.1) mmol/L Chloride 101 (98-107) mmol/L Carbon Dioxide 25 (21-32) mmol/L Anion Gap 9 (3-11) BUN 68 H (6-23) mg/dl Creatinine 2.89 H (0.6-1.2) mg/dl Est Cr Clr Drug Dosing Not Reportable Est GFR ( Amer) 16.3 ml/min Est GFR (Non-Af Amer) 14.0 ml/min BUN/Creatinine Ratio 23.5 H (10-20) Glucose 171 H (70-99(Fasting)) mg/dl Lactate (0.4-2.0) mmol/L Calcium 10.0 (8.5-10.1) mg/dl Phosphorus 2.8 (2.5-4.9) mg/dl Magnesium 1.9 (1.7-2.4) mg/dl Total Bilirubin 1.1 H (0.2-1.0) mg/dl AST 11 L (13-39) U/L ALT 9 (7-52) U/L Alkaline Phosphatase 65 (34-104) U/L Total Protein 6.4 (6.0-8.3) gm/dl Albumin 4.0 (3.4-5.0) gm/dl Globulin 2.4 L (2.5-4.0) gm/dl Albumin/Globulin Ratio 1.7 (0.9-2) TSH (0.300-4.500) uIu/ml Urine Color Urine Appearance (Clear) Urine pH (4.5-7.5) Ur Specific [place] (1.000-1.030) Urine Protein (Negative) Urine Glucose (UA) (Negative) Urine Ketones (Negative) Urine Blood (Negative) Urine Nitrite (Negative) Urine Bilirubin (Negative) Urine Urobilinogen (Negative) Ur Leukocyte Esterase (Negative) Urine WBC (Auto) (0-5) /hpf Urine RBC (Auto) (0-4) /hpf U Hyaline Cast (Auto) (0-5) /lpf U Epithel Cells (Auto) (0-5) /lpf Urine Bacteria (Auto) (Negative) SARS-CoV-2, RNA, NAAT POSITIVE A* (NEGATIVE) 05/14/22 05/14/22 05/14/22 Range/Units 14:15 14:15 14:53 WBC 17.11 H (4.8-10.8) K/ul RBC 3.18 L (3.93-5.22) M/uL Hgb 9.5 L (12.0-16.0) g/dl Hct 29.6 L (34.1-44.9) % MCV 93.1 (80.0-100.0) fL MCH 29.9 (25.0-34.0) pg MCHC 32.1 (32.0-36.0) g/dL RDW Std Deviation 50.2 H (36.4-46.3) fL RDW Coeff of Noemy 14.7 H (11.5-14.5) % Plt Count 264 (130-400) K/uL MPV 10.1 (9.4-12.3) fL Immature Gran % (Auto) 0.5 % Neut % (Auto) 84.9 % Lymph % (Auto) 3.9 % [place] % (Auto) 10.3 % Eos % (Auto) 0.2 % Baso % (Auto) 0.2 % Neut # (Auto) 14.53 H (1.4-6.5) K/uL Lymph # (Auto) 0.67 L (1.2-3.4) K/uL [place] # (Auto) 1.76 H (0.24-0.82) K/uL Eos # (Auto) 0.03 (0-0.50) K/uL Baso # (Auto) 0.04 (0-0.2) K/uL Immature Gran # (Auto) 0.08 H (0.00-0.02) K/uL PT (9.0-12.0) Seconds INR (0.9-1.1) Sodium (136-145) mmol/L Potassium (3.5-5.1) mmol/L Chloride (98-107) mmol/L Carbon Dioxide (21-32) mmol/L Anion Gap (3-11) BUN (6-23) mg/dl Creatinine (0.6-1.2) mg/dl Est Cr Clr Drug Dosing Est GFR ( Amer) ml/min Est GFR (Non-Af Amer) ml/min BUN/Creatinine Ratio (10-20) Glucose (70-99(Fasting)) mg/dl Lactate 0.7 (0.4-2.0) mmol/L Calcium (8.5-10.1) mg/dl Phosphorus (2.5-4.9) mg/dl Magnesium (1.7-2.4) mg/dl Total Bilirubin (0.2-1.0) mg/dl AST (13-39) U/L ALT (7-52) U/L Alkaline Phosphatase (34-104) U/L Total Protein (6.0-8.3) gm/dl Albumin (3.4-5.0) gm/dl Globulin (2.5-4.0) gm/dl Albumin/Globulin Ratio (0.9-2) TSH 0.976 (0.300-4.500) uIu/ml Urine Color Urine Appearance (Clear) Urine pH (4.5-7.5) Ur Specific [place] (1.000-1.030) Urine Protein (Negative) Urine Glucose (UA) (Negative) Urine Ketones (Negative) Urine Blood (Negative) Urine Nitrite (Negative) Urine Bilirubin (Negative) Urine Urobilinogen (Negative) Ur Leukocyte Esterase (Negative) Urine WBC (Auto) (0-5) /hpf Urine RBC (Auto) (0-4) /hpf U Hyaline Cast (Auto) (0-5) /lpf U Epithel Cells (Auto) (0-5) /lpf Urine Bacteria (Auto) (Negative) SARS-CoV-2, RNA, NAAT (NEGATIVE) 05/14/22 Range/Units 15:30 WBC (4.8-10.8) K/ul RBC (3.93-5.22) M/uL Hgb (12.0-16.0) g/dl Hct (34.1-44.9) % MCV (80.0-100.0) fL MCH (25.0-34.0) pg MCHC (32.0-36.0) g/dL RDW Std Deviation (36.4-46.3) fL RDW Coeff of Noemy (11.5-14.5) % Plt Count (130-400) K/uL MPV (9.4-12.3) fL Immature Gran % (Auto) % Neut % (Auto) % Lymph % (Auto) % [place] % (Auto) % Eos % (Auto) % Baso % (Auto) % Neut # (Auto) (1.4-6.5) K/uL Lymph # (Auto) (1.2-3.4) K/uL [place] # (Auto) (0.24-0.82) K/uL Eos # (Auto) (0-0.50) K/uL Baso # (Auto) (0-0.2) K/uL Immature Gran # (Auto) (0.00-0.02) K/uL PT (9.0-12.0) Seconds INR (0.9-1.1) Sodium (136-145) mmol/L Potassium (3.5-5.1) mmol/L Chloride (98-107) mmol/L Carbon Dioxide (21-32) mmol/L Anion Gap (3-11) BUN (6-23) mg/dl Creatinine (0.6-1.2) mg/dl Est Cr Clr Drug Dosing Est GFR ( Amer) ml/min Est GFR (Non-Af Amer) ml/min BUN/Creatinine Ratio (10-20) Glucose (70-99(Fasting)) mg/dl Lactate (0.4-2.0) mmol/L Calcium (8.5-10.1) mg/dl Phosphorus (2.5-4.9) mg/dl Magnesium (1.7-2.4) mg/dl Total Bilirubin (0.2-1.0) mg/dl AST (13-39) U/L ALT (7-52) U/L Alkaline Phosphatase (34-104) U/L Total Protein (6.0-8.3) gm/dl Albumin (3.4-5.0) gm/dl Globulin (2.5-4.0) gm/dl Albumin/Globulin Ratio (0.9-2) TSH (0.300-4.500) uIu/ml Urine Color Yellow Urine Appearance Clear (Clear) Urine pH 5.0 (4.5-7.5) Ur Specific [place] 1.011 (1.000-1.030) Urine Protein 2+ H (Negative) Urine Glucose (UA) Negative (Negative) Urine Ketones Negative (Negative) Urine Blood Negative (Negative) Urine Nitrite Negative (Negative) Urine Bilirubin Negative (Negative) Urine Urobilinogen Negative (Negative) Ur Leukocyte Esterase 2+ H (Negative) Urine WBC (Auto) 10-30 H (0-5) /hpf Urine RBC (Auto) 5-10 H (0-4) /hpf U Hyaline Cast (Auto) 1-5 (0-5) /lpf U Epithel Cells (Auto) >30 H (0-5) /lpf Urine Bacteria (Auto) Negative (Negative) SARS-CoV-2, RNA, NAAT (NEGATIVE) Administered Medications Discontinued Medications Sodium Chloride (Nss 1000ml) 1,000 mls @ 999 mls/hr IV .Q1H1M ARMOND Stop: 05/14/22 14:45 Last Infusion: 05/14/22 15:21 Dose: 0 mls/hr Documented By: Admin: 05/14/22 14:20 Dose: 999 mls/hr Documented By: CHRIS Acetaminophen ([facility]) 1,000 mg in 100 mls @ 400 mls/hr IV NOW STA Stop: 05/14/22 14:43 Last Infusion: 05/14/22 14:49 Dose: 0 mls/hr Documented By: Admin: 05/14/22 14:33 Dose: 400 mls/hr Documented By: CHRIS Piperacillin Sod/Tazobactam Sod (Zosyn) 4.5 gm in 120 mls @ 240 mls/hr IV NOW ONE Stop: 05/14/22 16:23 Last Admin: 05/14/22 16:45 Dose: 240 mls/hr Documented By: CHRIS Ondansetron HCl (Ondansetron Inj 2 Mg/Ml 2 Ml Vial) 4 mg IV NOW STA Stop: 05/14/22 13:38 Last Admin: 05/14/22 14:23 Dose: 4 mg Documented By: CHRIS Imaging Data Radiologist's Impression: Abdomen/Pelvis CT 05/14/22 13:38 CT SCAN OF THE ABDOMEN AND PELVIS WITHOUT IV CONTRAST CLINICAL HISTORY: Generalized abdominal pain. Diarrhea. COMPARISON STUDY: Abdominal CT dated 04/26/2022. TECHNIQUE: CT scan of the abdomen and pelvis is performed from the lung bases to the proximal femora. Images are reviewed in the axial, sagittal, and coronal planes. IV contrast was not administered for this examination. Note that the examination was performed in significantly suboptimal fashion without oral and IV contrast. A dose lowering technique was utilized adhering to the principles of ALARA. CT DOSE: 983.22 mGy.cm FINDINGS: Lung bases: The heart is enlarged and and without pericardial effusion. The coronary arteries are densely calcified. There is a tiny hiatal hernia. The lung bases are clear noting bibasilar scarring/atelectasis. Liver: The unenhanced liver is normal in size, contour, and attenuation. There is no intrahepatic biliary ductal dilatation. A 1.8 cm cyst is noted in the left lobe. Gallbladder: Surgically absent noting clips in the gallbladder fossa. Spleen: Normal in size and attenuation. Pancreas: The unenhanced pancreas is moderately atrophic and grossly unremar kable. 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 The right adrenal gland is normal in appearance. Kidneys: The unenhanced kidneys are atrophic. There is dilatation of the left upper pole collecting system secondary to a 5.3 cm complex lesion in the left renal pelvis. Additional complex lesion identified in both kidneys. These are unchanged from prior studies and were shown to represent cysts but renal ultrasound. No renal calculi are identified. Abdominal vasculature: The abdominal aorta is normal in course and caliber noting advanced atherosclerotic calcification. Bowel: There is moderate colonic diverticulosis. There is wall thickening with pericolonic inflammation and fluid involving the sigmoid colon consistent with acute diverticulitis. No organized fluid collection is seen to suggest abscess. No bowel obstruction is identified. The appendix is not identified. Peritoneum: There is no intraperitoneal free air or abdominal ascites. Foci of induration within the ventral abdominal wall are likely related subcutaneous inj ections. Lymphadenopathy: None. Pelvic viscera: The bladder is distended and contains a tiny focus of intraluminal gas. The uterus is surgically absent. No adnexal lesion is seen. Skeletal structures: The skeletal structures are osteopenic. There is mild to moderate lumbosacral spondylosis. No lytic or blastic lesions are seen. IMPRESSION: 1. Moderate colonic diverticulosis with evidence of acute sigmoid diverticulitis. 2. No intraperitoneal free air is identified and there is no organized fluid collection to suggest abscess. 3. Small foci of gas within the bladder lumen are nonspecific and may be related to the recent instrumentation. Correlate with clinical findings and urinalysis. 4. Additional findings as above. ACT 112: Negative or not required by law. Electronically signed by: Marco Morocho M.D. 05/14/2022 3:47 PM Chest X-Ray 05/14/22 13:38 SINGLE VIEW CHEST CLINICAL HISTORY: Generalized weakness. FINDINGS: An AP, portable, upright chest radiograph is compared to study dated 04/26/2022. The heart is enlarged noting atherosclerotic calcification of the thoracic ureter. There is pulmonary vascular congestion with evidence of mild in terstitial edema. No large pleural effusion or pneumothorax is seen. The skeletal structures are osteopenic. The bony thorax is grossly intact. IMPRESSION: Cardiomegaly with evidence of congestive failure and pulmonary edema. ACT 112: Negative or not required by law. Electronically signed by: Marco Morocho M.D. 05/14/2022 3:19 PM Discharge Plan Visit Data Chief Complaint: Diarrhea Stated Complaint: DIARRHEA ED Provider: Manolo Solis Discharge Problem: Sepsis, Anemia, Diverticulitis, COVID-19 Patient Disposition: Admitted As Inpatient Forms Stand Alone Forms: [facility] Prescriptions Prescriptions: No Action furosemide 40 mg tablet 40 mg PO QAM ondansetron 4 mg tablet,disintegrating 4 mg PO Q6H PRN (Reason: nausea and vomiting) Qty: 14 0RF lidocaine [Salonpas (lidocaine)] 4 % Adhesive Patch,Medicated 1 patch TOPICAL DAILY PRN (Reason: Pain) aspirin 81 mg Tablet,Delayed Release (Dr/Ec) 81 mg PO QAM isosorbide dinitrate 20 mg tablet 20 mg PO TID rosuvastatin 10 mg tablet 10 mg PO HS famotidine [Pepcid] 20 mg Tablet 20 mg PO QPM@1700 hydralazine 100 mg tablet 100 mg PO TID carvedilol 25 mg tablet 25 mg PO BID acetaminophen [Tylenol Extra Strength] 500 mg Tablet 1,000 mg PO AMHS simethicone 80 mg Tablet,Chewable 80 mg PO DIRECTED PRN (Reason: GAS DISCOMFORT) allopurinol 100 mg tablet 200 mg PO QPM calcitriol 0.25 mcg capsule 0.25 mcg PO QAM pregabalin [Lyrica] 25 mg capsule 25 mg PO AMHS Rx Instructions: Take twice a day benzonatate 100 mg Capsule 200 mg PO TID Qty: 30 0RF Humulin 70/30 U-100 Insulin 100 unit/mL (70-30) suspension See Rx Instructions .ROUTE .COMPLEX Rx Instructions: 75 unit subcutaneously in the am and 40 units in the pm diclofenac sodium 1 % gel 4 g TOP QID PRN (Reason: Pain) cyanocobalamin (vitamin B-12) 500 mcg Tablet 500 mcg PO QAM Qty: 30 0RF Saccharomyces boulardii [Florastor] 250 mg capsule 250 mg PO QAM Referrals Referrals: Fox Ramirez MD [Primary Care Provider] -
[2022-05-14] MEDS ORDERED: ONDANSETRON INJ 2 MG/ML 2 ML VIAL IV STA (13:37)
[2022-05-14] MEDS ORDERED: SODIUM CHLORIDE 0.9% 1000ML 1,000 ML IV SCH (13:45)
[2022-05-14] MEDS ORDERED: ACETAMINOPHEN 1,000 MG/100 ML VIAL IV STA (14:29)
[2022-05-14 14:32] LABS: Basophils # (auto) 0.04 K/uL (0-0.2); Basophils % (auto) 0.2 %; Eosinophils # (auto) 0.03 K/uL (0-0.50); Eosinophils % (auto) 0.2 %; Hematocrit (blood only) 29.6 % (34.1-44.9); Hemoglobin 9.5 g/dl (12.0-16.0); Immature Granulocytes # (auto) 0.08 K/uL (0.00-0.02); Immature Granulocytes % (auto) 0.5 %; Lymphocytes # (auto) 0.67 K/uL (1.2-3.4); Lymphocytes % (auto) 3.9 %; Mean Corpuscular Hemoglobin 29.9 pg (25.0-34.0); Mean Corpuscular Hgb Conc 32.1 g/dL (32.0-36.0); Mean Corpuscular Volume 93.1 fL (80.0-100.0); Mean Platelet Volume 10.1 fL (9.4-12.3); Monocytes # (auto) 1.76 K/uL (0.24-0.82); Monocytes % (auto) 10.3 %; Neutrophils # (auto) 14.53 K/uL (1.4-6.5); Neutrophils % (auto) 84.9 %; Platelet Count 264 K/uL (130-400); RDW Coefficient of Variation 14.7 % (11.5-14.5); RDW Standard Deviation 50.2 fL (36.4-46.3); Red Blood Count 3.18 M/uL (3.93-5.22); White Blood Count 17.11 K/ul (4.8-10.8)
[2022-05-14 14:59] LABS: Alanine Aminotransferase 9 U/L (7-52); Albumin Globulin Ratio 1.7 (0.9-2); Alkaline Phosphatase 65 U/L (34-104); Anion Gap 9 (3-11); Aspartate Aminotransferase 11 U/L (13-39); BUN Creatinine Ratio 23.5 (10-20); Bilirubin,Total 1.1 mg/dl (0.2-1.0); Blood Urea Nitrogen 68 mg/dl (6-23); Carbon Dioxide 25 mmol/L (21-32); Chloride 101 mmol/L (98-107); Est GFR (African American) 16.3 ml/min; Globulin 2.4 gm/dl (2.5-4.0); Glucose 171 mg/dl (70-99(Fasting)); Magnesium 1.9 mg/dl (1.7-2.4); Phosphorus 2.8 mg/dl (2.5-4.9); Potassium 3.6 mmol/L (3.5-5.1); Sodium 135 mmol/L (136-145); Total Protein 6.4 gm/dl (6.0-8.3)
[2022-05-14 15:02] LABS: Prothrombin Time 10.4 Seconds (9.0-12.0)
--- NOTE | 2022-05-14 15:20 | XRay Report ---
SINGLE VIEW CHEST CLINICAL HISTORY: Generalized weakness. FINDINGS: An AP, portable, upright chest radiograph is compared to study dated 04/26/2022. The heart is enlarged noting atherosclerotic calcification of the thoracic ureter. There is pulmonary vascular co ngestion with evidence of mild interstitial edema. No large pleural effusion or pneumothorax is seen. The skeletal structures are osteopenic. The bony thorax is grossly intact. IMPRESSION: Cardiomegaly with evidence of congestive failure and pulmonary edema. ACT 112: Negative or not required by law. Electronically signed by: Marco Morocho M.D. 05/14/2022 3:19 PM
--- NOTE | 2022-05-14 15:49 | CT Scan Report ---
CT SCAN OF THE ABDOMEN AND PELVIS WITHOUT IV CONTRAST CLINICAL HISTORY: Generalized abdominal pain. Diarrhea. COMPARISON STUDY: Abdominal CT dated 04/26/2022. TECHNIQUE: CT scan of the abdomen and pelvis is performed from the lung bases to the proximal femora. Images are reviewed in the axial, sagittal, and coronal planes. IV contrast was not administered for this examination. Note that the examination was performed in significantly suboptimal fashion withou t oral and IV contrast. A dose lowering technique was utilized adhering to the principles of ALARA. CT DOSE: 983.22 mGy.cm FINDINGS: Lung bases: The heart is enlarged and and without pericardial effusion. The coronary arteries are den sely calcified. There is a tiny hiatal hernia. The lung bases are clear noting bibasilar scarring/ate lectasis. Liver: The unenhanced liver is normal in size, contour, and attenuation. There is no intrahepatic lia iary ductal dilatation. A 1.8 cm cyst is noted in the left lobe. Gallbladder: Surgically absent noting clips in the gallbladder fossa. Spleen: Normal in size and attenuation. Pancreas: The unenhanced pancreas is moderately atrophic and grossly unremarkable. 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 The right adrenal gland is n ormal in appearance. Kidneys: The unenhanced kidneys are atrophic. There is dilatation of the left upper pole collecting s ystem secondary to a 5.3 cm complex lesion in the left renal pelvis. Additional complex lesion identi fied in both kidneys. These are unchanged from prior studies and were shown to represent cysts but r enal ultrasound. No renal calculi are identified. Abdominal vasculature: The abdominal aorta is normal in course and caliber noting advanced atheroscle rotic calcification. Bowel: There is moderate colonic diverticulosis. There is wall thickening with pericolonic inflammati on and fluid involving the sigmoid colon consistent with acute diverticulitis. No organized fluid col lection is seen to suggest abscess. No bowel obstruction is identified. The appendix is not identifi ed. Peritoneum: There is no intraperitoneal free air or abdominal ascites. Foci of induration within the ventral abdominal wall are likely related subcutaneous injections. Lymphadenopathy: None. Pelvic viscera: The bladder is distended and contains a tiny focus of intraluminal gas. The uterus is surgically absent. No adnexal lesion is seen. Skeletal structures: The skeletal structures are osteopenic. There is mild to moderate lumbosacral sp ondylosis. No lytic or blastic lesions are seen. IMPRESSION: 1. Moderate colonic diverticulosis with evidence of acute sigmoid diverticulitis. 2. No intraperitoneal free air is identified and there is no organized fluid collection to suggest ab scess. 3. Small foci of gas within the bladder lumen are nonspecific and may be related to the recent instru mentation. Correlate with clinical findings and urinalysis. 4. Additional findings as above. ACT 112: Negative or not required by law. Electronically signed by: Marco Morocho M.D. 05/14/2022 3:47 PM
[2022-05-14] MEDS ORDERED: PIPERACILLIN/TAZOBACTAM 4.5 GM/120 ML BAG IV ONE (15:54)
[2022-05-14 16:18] LABS: Appearance Urine Clear (Clear); Bacteria Urine Automated Negative (Negative); Bilirubin Urine Negative (Negative); Blood Urine Negative (Negative); Color Urine Yellow; Epithelial Cell Urine Auto >30 /lpf (0-5); Glucose Urine UA Negative (Negative); Ketones Urine Negative (Negative); Leukocyte Esterase Urine 2+ (Negative); Nitrite Urine Negative (Negative); Protein Urine 2+ (Negative); Specific Gravity Urine 1.011 (1.000-1.030); Urobilinogen Urine Negative (Negative)
[2022-05-14] MEDS ORDERED: GLUCAGON FOR INJ 1 MG VIAL SQ PRN (16:51)
[2022-05-14] MEDS ORDERED: CARBOHYDRATES FOR HYPOGLYCEMIA PO PRN (16:51)
[2022-05-14] MEDS ORDERED: GLUCOSE 40% GEL 15 GM TUBE PO PRN (16:51)
[2022-05-14] MEDS ORDERED: DEXTROSE 50% 50 ML SYRINGE IV PRN (16:51)
[2022-05-14] MEDS ORDERED: GLUCOSE 10 TAB/TUBE PO PRN (16:51)
[2022-05-14] MEDS ORDERED: PHARMACY GLYCEMIC MGMT CONSULT PRN (16:51)
[2022-05-14] MEDS ORDERED: ONDANSETRON INJ 2 MG/ML 2 ML VIAL IV PRN (17:03)
[2022-05-14 17:15] LABS: Adenovirus F 40/41 PCR Not Detected (NotDetected); Astrovirus PCR Not Detected (NotDetected); Campylobacter PCR Not Detected (NotDetected); Cryptosporidium PCR Not Detected (NotDetected); Cyclospora cayetanensis PCR Not Detected (NotDetected); Entamoeba histolytica PCR Not Detected (NotDetected); Enteroaggregative E.coli(EAEC) Not Detected (NotDetected); Enteropathogenic E.coli (EPEC) Not Detected (NotDetected); Enterotoxigenic E.coli (ETEC) Not Detected (NotDetected); Giardia lamblia PCR Not Detected (NotDetected); Norovirus GI/GII PCR Not Detected (NotDetected); Plesiomonas shigelloides PCR Not Detected (NotDetected); Rotavirus A PCR Not Detected (NotDetected); Salmonella PCR Not Detected (NotDetected); Sapovirus PCR Not Detected (NotDetected); Shiga-like Toxin E.coli (STEC) Not Detected (NotDetected); Shigella/Enteroinvasive E.coli Not Detected (NotDetected); Vibrio cholerae PCR Not Detected (NotDetected); Vibrio species PCR Not Detected (NotDetected); Yersinia enterocolitica PCR Not Detected (NotDetected)
[2022-05-14] MEDS ORDERED: CEFEPIME 1,000 MG in SYRINGE 0 ML IV STA (17:26)
[2022-05-14] MEDS ORDERED: Patient's HEIGHT &/or WEIGHT Needed SCH (17:30)
--- NOTE | 2022-05-14 17:41 | History & Physical Report ---
Date of Service May 14, 2022 Assessment & Plan (1) Sepsis: Plan: - presented with tachycardia to 97, WBC 17, diarrhea and evidence of diverticulitis on CT-AP - IVF resuscitation - broad spectrum antibiotics for enteric pathogens - telemetry monitoring - blood cultures - monitor for improvement (2) Diverticulitis large intestine w/o perforation or abscess w/o bleeding: Plan: - has history of diverticulitis as well as C diff colitis - stool studies sent by ED - no blood in stools, per patient - CT AP with colonic diverticulosis and sigmoid diverticulitis without evidence of perforation or abscess - blood cultures pending - s/p IVF in ED - will be careful with IVF given history of CHF - s/p 1 dose of zosyn in ED - will continue on cefepime and flagyl given MISTI on CKD - telemetry monitoring - clear liquid diet for now - advance as tolerated (3) Leukocytosis: Plan: - likely in the setting of diverticulitis - management as above - trend WBC (4) Acute kidney injury superimposed on CKD: Plan: - Cr 2.9 on admission with baseline around 2.3-2.5 - likely in the setting of ongoing diarrhea and decreaed po intake - s/p 1L IVF in the ED - will give gentle fluids for now - encourage po intake - strict I/O - trend Cr (5) Generalized weakness: Plan: - in the setting of sepsis with diverticulitis and decreased po intake - IVF as above - abx as above - encourage po intake - OOB to chair when able (6) Congestive heart failure: Plan: - TTE in 2019 with normal EF and GIDD - not in acute exacerbation - appears a little dry on exam - s/p 1L IVF in the ED - will give 1L more IVF slowly - continue medications (7) Type 2 diabetes mellitus with hyperglycemia: Plan: - A1c 6.5% 03/2022 - reportedly on 70/30 NPH at home 75 units AM and 50 units PM - BG 171 on admission - in the setting of decreased po intake will start with lantus 30 units BID - SSI for correctional scale - FSG AC+HS - diabetic diet (8) COVID: Plan: - still positive since 04/26/2022 - likely not related to COVID - saturating well on RA - monitor for now (9) Hypertension: Plan: - hypertensive in the ED - resume home medications at slightly reduced rate given sepsis - monitor and add full dose medications when appropriate Plan DVT ppx: heparin SC Full Code Paul De La Vega MD Hospital Medicine Admission and Anticipated Discharge Date Admission Date: 05/14/2022 History of Present Illness Chief Complaint: diarrhea Primary Care Provider: Fox Ramirez MD The patient is a 86 year old woman with pmh HFpEF (Ef 55-60%, GIDD in 2019), LBBB, PVD, HTN, DM on insulin, CKD stage 3 (baseline Cr 2.3), GERD, chronic anemia presented for 2 days of worsening diarrhea with fever and chills. She reports getting COVID around 04/26/2022 and had a cough, some sore throat but otherwise was not too bad. Then 2 days ago, she says she started feeling bad again with aches and pain as well as multiple bouts of diarrhea with semi formed stools. Yesterday it progressed to loose diarrhea with >10 episodes in 24 hours. She reports RLQ abdominal pain as well as nausea but no vomiting. She denies chest pain except when coughing, denies shortness of breath, dysuria, LOC, headache. She has not been able to tolerate PO intake for the past 2 days due to nausea as well as decreased appetite. She lives with her son in law and daughter who are away during the day and she is able to care for herself mostly when they are gone. She is able to walk at least 1 block without chest pain or shortness of breath. She denies history of smoking. In the ED, vitals were significant for HR 90s, BP 150-160s/60s, satting 95% on RA. Labs were significant for WBC 17, hgb 9.5 (baseline around 8), Cr 2.9 (baseline 2.3-2.5). CT scan sowed acute sigmoid diverticulitis with evidence of moderate diverticulosis in the colon. She was given IVF and Zosyn and admitted to medicine. Allergies Allergy/AdvReac Type Severity Reaction Status Date / Time No Known Allergies Allergy Verified 05/14/22 17:36 Home Medications Medication Instructions Recorded Confirmed Type aspirin 81 mg tablet,delayed 81 mg PO QAM 12/30/18 05/09/22 History release isosorbide dinitrate 20 mg tablet 20 mg PO TID 12/30/18 05/09/22 History rosuvastatin 10 mg tablet 10 mg PO HS 12/30/18 05/09/22 History famotidine 20 mg tablet (Pepcid) 20 mg PO QPM@1700 11/18/19 05/09/22 History lidocaine 4 % topical patch 1 patch topical DAILY PRN Pain 06/23/20 05/09/22 History (Salonpas (lidocaine)) insulin human U-100 NPH-regulr See Rx Instructions .Route .COMPLEX 03/16/21 05/09/22 History 70-30 mix 100 unit/mL subcutaneous susp (Humulin 70/30 U-100 Insulin) diclofenac sodium 1 % topical gel 4 g topical QID PRN Pain 03/17/21 05/09/22 History cyanocobalamin (vitamin B-12) 500 500 mcg PO QAM #30 tabs 03/27/21 05/09/22 Rx mcg tablet carvedilol 25 mg tablet 25 mg PO BID 06/13/21 05/09/22 History hydralazine 100 mg tablet 100 mg PO TID 06/13/21 05/09/22 History Saccharomyces boulardii 250 mg 250 mg PO QAM 08/26/21 05/09/22 History capsule (Florastor) ondansetron 4 mg disintegrating 4 mg PO Q6H PRN nausea and 11/25/21 05/09/22 Rx tablet vomiting #14 tabs acetaminophen 500 mg tablet 1,000 mg PO AMHS 04/26/22 05/09/22 History (Tylenol Extra Strength) allopurinol 100 mg tablet 200 mg PO QPM 04/26/22 05/09/22 History calcitriol 0.25 mcg capsule 0.25 mcg PO QAM 04/26/22 05/09/22 History pregabalin 25 mg capsule (Lyrica) 25 mg PO AMHS 04/26/22 05/09/22 History simethicone 80 mg chewable tablet 80 mg PO DIRECTED PRN GAS 04/26/22 05/09/22 History DISCOMFORT benzonatate 100 mg capsule 200 mg PO TID #30 caps 04/28/22 05/09/22 Rx furosemide 20 mg tablet 20 mg PO DAILY 05/14/22 05/14/22 History ketoconazole 2 % shampoo 1 applic topical WK 05/14/22 05/14/22 History polyethylene glycol 3350 17 gram 17 g PO BID PRN Constipation 05/14/22 05/14/22 History oral powder packet Past Med/Surg History Medical History CHF (congestive heart failure) follows with Kaushal Nieto PA-C Chronic back pain Chronic kidney disease (CKD), stage IV (severe) follows with Dr. Childress Diabetes mellitus, type 2 Diverticulitis large intestine hx Hearing deficit History of kidney stones HTN (hypertension) Hyperlipidemia Kidney cysts LEFT SIDE>BEING MONITORED BY UROLOGY [facility] Morbid obesity with BMI of 40.0-44.9, adult Nocturnal hypoxemia On home oxygen therapy 2L N/C at HS only Osteoarthritis Surgical History H/O: hysterectomy History of arthroscopy of left knee History of bilateral tubal ligation History of cardiac cath ?2009--@ [facility]--no stents History of colonoscopy History of cystoscopy History of dilatation and curettage History of esophagogastroduodenoscopy (EGD) History of tooth extraction all teeth Hx of appendectomy Hx of cholecystectomy Nausea and vomiting after administration of anesthetic agent Family History Sister Family history of diabetes mellitus Sister Family history of diabetes mellitus Brother Family history of diabetes mellitus Family history of esophageal cancer Brother Family history of esophageal cancer Father Lung cancer Other No family history of adverse response to anesthesia No significant family history Social History Smoking Status: Never smoker Second Hand Exposure: No; Hx Alcohol Use: No Hx Substance Use: No Preferred Language: Macedonian Communication Ability: Effective Hospice Clinical Manager Required: No Beliefs That Will Affect Care: None marital status: / Current Living Situation: Family Current Living Situation Comment: Son and daughter in law Feels Safe at Home: Yes Assistive Devices: Walker Review of Systems Review of Systems: All systems reviewed & are unremarkable except as noted in Subjective Physical Exam Constitutional: WD/WN, vitals as above + ill appearing and + morbidly obese; + not appropriately hydrated Eyes: PERRL, conjunctivae normal, anicteric sclerae ENMT: Ears: no external ear abnormality Nose: no external nose abnormality Mouth: + dry oral mucous membranes Neck: trachea midline, no thyromegaly Respiratory: normal respiratory effort, lungs clear to auscultation Cardiovascular: RRR, no murmur, no edema Gastrointestinal (Abdomen): Inspection/Auscultation: abdomen normal to inspection, + abdomen distended, normal bowel sounds, + significant pannus and + abdominal surgical scar (cholecystectomy scar well healed) Percussion/Palpation: + abdomen tender (diffusely but mostly RLQ and LLQ) and abdomen soft; no guarding and abdomen not rigid Musculoskeletal: no cyanosis or clubbing, extremities motor strength 5/5 Skin: no rashes, warm and dry Neurologic: patellar DTR's 2+ bilat, sensation intact and PERRL, EOMI, accommodation nl, no face palsy, no dysarthria Psychiatric: A+Ox3, euthymic affect Results & Data Results & Data ([facility]) Vital Signs (Past 12 Hours) Vital Signs Temp Pulse Pulse Resp BP BP Pulse Ox 05/14/22 16:30 96 H 23 93 05/14/22 16:30 156/56 H 05/14/22 16:00 92 H 22 92 05/14/22 16:00 141/50 H 05/14/22 15:35 158/49 H 05/14/22 15:35 96 H 18 92 05/14/22 15:34 98 H 05/14/22 14:35 100 H 25 H 92 05/14/22 15:33 37.4 C 05/14/22 14:27 37.9 C H 100 H 27 H 152/62 H 92 05/14/22 14:19 05/14/22 13:06 37.3 C 98 H 23 153/63 H 94 O2 Del Method 05/14/22 16:30 Room Air 05/14/22 16:30 05/14/22 16:00 Room Air 05/14/22 16:00 05/14/22 15:35 05/14/22 15:35 Room Air 05/14/22 15:34 05/14/22 14:35 Room Air 05/14/22 15:33 05/14/22 14:27 Room Air 05/14/22 14:19 Room Air 05/14/22 13:06 Room Air Laboratory Results Short CBC 05/14/22 Range/Units 14:15 WBC 17.11 H (4.8-10.8) K/ul Hgb 9.5 L (12.0-16.0) g/dl Hct 29.6 L (34.1-44.9) % Plt Count 264 (130-400) K/uL BMP 05/14/22 14:15 Sodium 135 L Potassium 3.6 Chloride 101 Carbon Dioxide 25 BUN 68 H Creatinine 2.89 H Glucose 171 H Calcium 10.0 Liver Function 05/14/22 Range/Units 14:15 Total Bilirubin 1.1 H (0.2-1.0) mg/dl AST 11 L (13-39) U/L ALT 9 (7-52) U/L Alkaline Phosphatase 65 (34-104) U/L Albumin 4.0 (3.4-5.0) gm/dl Urine 05/14/22 Range/Units 15:30 Urine Color Yellow Urine Appearance Clear (Clear) Urine pH 5.0 (4.5-7.5) Ur Specific [place] 1.011 (1.000-1.030) Urine Protein 2+ H (Negative) Urine Glucose (UA) Negative (Negative) Diagnostic Findings Abdomen/Pelvis CT 05/14/22 13:38 CT SCAN OF THE ABDOMEN AND PELVIS WITHOUT IV CONTRAST CLINICAL HISTORY: Generalized abdominal pain. Diarrhea. COMPARISON STUDY: Abdominal CT dated 04/26/2022. TECHNIQUE: CT scan of the abdomen and pelvis is performed from the lung bases to the proximal femora. Images are reviewed in the axial, sagittal, and coronal planes. IV contrast was not administered for this examination. Note that the examination was performed in significantly suboptimal fashion without oral and IV contrast. A dose lowering technique was utilized adhering to the principles of ALARA. CT DOSE: 983.22 mGy.cm FINDINGS: Lung bases: The heart is enlarged and and without pericardial effusion. The coronary arteries are densely calcified. There is a tiny hiatal hernia. The lung bases are clear noting bibasilar scarring/atelectasis. Liver: The unenhanced liver is normal in size, contour, and attenuation. There is no intrahepatic biliary ductal dilatation. A 1.8 cm cyst is noted in the left lobe. Gallbladder: Surgically absent noting clips in the gallbladder fossa. Spleen: Normal in size and attenuation. Pancreas: The unenhanced pancreas is moderately atrophic and grossly unremarkable. 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 The right adrenal gland is normal in appearance. Kidneys: The unenhanced kidneys are atrophic. There is dilatation of the left upper pole collecting system secondary to a 5.3 cm complex lesion in the left renal pelvis. Additional complex lesion identified in both kidneys. These are unchanged from prior studies and were shown to represent cysts but renal ultrasound. No renal calculi are identified. Abdominal vasculature: The abdominal aorta is normal in course and caliber noting advanced atherosclerotic calcification. Bowel: There is moderate colonic diverticulosis. There is wall thickening with pericolonic inflammation and fluid involving the sigmoid colon consistent with acute diverticulitis. No organized fluid collection is seen to suggest abscess. No bowel obstruction is identified. The appendix is not identified. Peritoneum: There is no intraperitoneal free air or abdominal ascites. Foci of induration within the ventral abdominal wall are likely related subcutaneous injections. Lymphadenopathy: None. Pelvic viscera: The bladder is distended and contains a tiny focus of intraluminal gas. The uterus is surgically absent. No adnexal lesion is seen. Skeletal structures: The skeletal structures are osteopenic. There is mild to moderate lumbosacral spondylosis. No lytic or blastic lesions are seen. IMPRESSION: 1. Moderate colonic diverticulosis with evidence of acute sigmoid diverticulitis. 2. No intraperitoneal free air is identified and there is no organized fluid collection to suggest abscess. 3. Small foci of gas within the bladder lumen are nonspecific and may be related to the recent instrumentation. Correlate with clinical findings and urinalysis. 4. Additional findings as above. ACT 112: Negative or not required by law. Electronically signed by: Marco Morocho M.D. 05/14/2022 3:47 PM Chest X-Ray 05/14/22 13:38 SINGLE VIEW CHEST CLINICAL HISTORY: Generalized weakness. FINDINGS: An AP, portable, upright chest radiograph is compared to study dated 04/26/2022. The heart is enlarged noting atherosclerotic calcification of the thoracic ureter. There is pulmonary vascular congestion with evidence of mild interstitial edema. No large pleural effusion or pneumothorax is seen. The skeletal structures are osteopenic. The bony thorax is grossly intact. IMPRESSION: Cardiomegaly with evidence of congestive failure and pulmonary edema. ACT 112: Negative or not required by law. Electronically signed by: Marco Morocho M.D. 05/14/2022 3:19 PM Medications Administered Current Inpatient Medications Aspirin (Aspirin 81 Mg Ectab) 81 mg PO QAM [facility] Stop: 06/14/22 08:59 Calcitriol (Calcitriol 0.25 Mcg Capsule) 0.25 mcg PO QAM [facility] Stop: 06/14/22 08:59 Carvedilol (Carvedilol 25 Mg Tab) 25 mg PO BID [facility] Stop: 06/13/22 20:59 Cyanocobalamin (Cyanocobalamin (B-12) 500 Mcg Tablet) 500 mcg PO QAM [facility] Stop: 06/14/22 08:59 Dextrose (Dextrose 50% 50 Ml Syringe) 25 - 50 ml IV UD PRN; Protocol PRN Reason: Hypoglycemia Protocol Stop: 06/13/22 16:50 Famotidine (Famotidine 40 Mg Tablet) 40 mg PO QAM [facility] Stop: 06/14/22 08:59 Glucagon (Glucagon For Inj 1 Mg Vial) 1 mg SQ UD PRN; Protocol PRN Reason: Hypoglycemia Protocol Stop: 06/13/22 16:50 Glucose (Glucose 40% Gel 15 Gm Tube) 15 - 30 gm PO UD PRN; Protocol PRN Reason: Hypoglycemia Protocol Stop: 06/13/22 16:50 Glucose (Glucose 10 Tab/Tube) 4 - 8 tab PO UD PRN; Protocol PRN Reason: Hypoglycemia Treatment Stop: 06/13/22 16:50 Heparin Sodium (Porcine) (Heparin Sod 5,000 Unit/0.5 Ml Vial) 5,000 units SQ Q8 [facility] Stop: 06/13/22 21:59 Hydralazine HCl (Hydralazine Tab 50 Mg Tab) 50 mg PO TID [facility] Stop: 06/13/22 20:59 Cefepime HCl 1,000 mg/ Syringe 11.3 mls @ 5.5 mls/min IV DAILY [facility]; Protocol Stop: 05/24/22 17:14 Metronidazole (Flagyl) 500 mg in 100 mls @ 100 mls/hr IV Q8H [facility] Stop: 05/24/22 17:14 Insulin Aspart (Insulin Aspart Per Unit) 0 units SC ACHS [facility] Stop: 06/13/22 20:59 Insulin Glargine (Lantus Per Unit Charge) 30 units SQ BID [facility] Stop: 06/13/22 20:59 Isosorbide Dinitrate (Isosorbide Dinitrate 20 Mg Tab) 20 mg PO TID [facility] Stop: 06/13/22 20:59 Miscellaneous (Carbohydrates For Hypoglycemia ) 15 - 30 gm PO UD PRN PRN Reason: Hypoglycemia Protocol Stop: 06/13/22 16:50 Miscellaneous Information (Pharmacy Glycemic Mgmt Consult) 1 each N/A UD PRN PRN Reason: Consult Stop: 06/13/22 16:50 Ondansetron HCl (Ondansetron Inj 2 Mg/Ml 2 Ml Vial) 4 mg IV Q6H PRN PRN Reason: Nausea And Vomiting Stop: 05/17/22 17:02 Pregabalin (Pregabalin 25 Mg Cap) 25 mg PO BID [facility] Stop: 06/13/22 20:59 Rosuvastatin Calcium (Rosuvastatin Calcium 10 Mg Tab) 10 mg PO HS [facility] Stop: 06/13/22 20:59 Code Status & VTE Plan Code Status Full Code VTE Prophylaxis Plan VTE Prophylaxis will be ordered: Yes
[2022-05-14 18:04] LABS: Cdiff Antigen Positive
[2022-05-14 18:05] LABS: Cdiff Toxin A+B Positive Cdiff Toxin (Negative)
[2022-05-14] MEDS: metroNIDAZOLE 500 MG/100 ML BAG IV SCH (18:16)
[2022-05-14] MEDS ORDERED: LANTUS PER UNIT CHARGE SQ SCH (21:00)
[2022-05-14] MEDS: PREGABALIN 25 MG CAP PO SCH (23:42)
[2022-05-14] MEDS: carvediloL 25 MG TAB PO SCH (23:42)
[2022-05-14] MEDS: ROSUVASTATIN CALCIUM 10 MG TAB PO SCH (23:42)
[2022-05-14] MEDS: hydrALAZINE TAB 50 MG TAB PO SCH (23:42)
[2022-05-14] MEDS: HEPARIN SOD 5,000 UNIT/0.5 ML VIAL SQ SCH (23:42)
[2022-05-14] MEDS: INSULIN ASPART PER UNIT SC SCH ×2 (23:56→23:58)
[2022-05-15] MEDS: metroNIDAZOLE 500 MG/100 ML BAG IV SCH ×2 (01:35→10:08)
[2022-05-15] MEDS: ISOSORBIDE DINITRATE 20 MG TAB PO SCH ×3 (05:47→17:45)
[2022-05-15] MEDS: HEPARIN SOD 5,000 UNIT/0.5 ML VIAL SQ SCH ×3 (05:47→22:43)
[2022-05-15 07:05] LABS: Basophils # (auto) 0.05 K/uL (0-0.2); Basophils % (auto) 0.4 %; Eosinophils # (auto) 0.07 K/uL (0-0.50); Eosinophils % (auto) 0.5 %; Hematocrit (blood only) 26.5 % (34.1-44.9); Hemoglobin 8.5 g/dl (12.0-16.0); Immature Granulocytes # (auto) 0.07 K/uL (0.00-0.02); Immature Granulocytes % (auto) 0.5 %; Lymphocytes # (auto) 0.85 K/uL (1.2-3.4); Lymphocytes % (auto) 6.4 %; Mean Corpuscular Hemoglobin 30.4 pg (25.0-34.0); Mean Corpuscular Hgb Conc 32.1 g/dL (32.0-36.0); Mean Corpuscular Volume 94.6 fL (80.0-100.0); Mean Platelet Volume 10.2 fL (9.4-12.3); Monocytes % (auto) 13.5 %; Neutrophils # (auto) 10.49 K/uL (1.4-6.5); Neutrophils % (auto) 78.7 %; Platelet Count 247 K/uL (130-400); RDW Coefficient of Variation 14.7 % (11.5-14.5); White Blood Count 13.33 K/ul (4.8-10.8)
[2022-05-15 07:35] LABS: Albumin Globulin Ratio 1.5 (0.9-2); Albumin Level 3.4 gm/dl (3.4-5.0); Bilirubin,Total 1.1 mg/dl (0.2-1.0); Creatinine Clr Calc Pharmacy 15.8 ml/min; Est GFR (African American) 15.8 ml/min; Est GFR (Non-African American) 13.6 ml/min; Globulin 2.2 gm/dl (2.5-4.0); Magnesium 1.9 mg/dl (1.7-2.4); Phosphorus 3.5 mg/dl (2.5-4.9); Potassium 3.1 mmol/L (3.5-5.1); Total Protein 5.6 gm/dl (6.0-8.3)
[2022-05-15] MEDS: INSULIN ASPART PER UNIT SC SCH ×4 (09:44→22:45)
[2022-05-15] MEDS: CALCITRIOL 0.25 MCG CAPSULE PO SCH (09:49)
[2022-05-15] MEDS: carvediloL 25 MG TAB PO SCH ×2 (09:50→22:43)
[2022-05-15] MEDS: FAMOTIDINE 40 MG TABLET PO SCH (09:50)
[2022-05-15] MEDS: CYANOCOBALAMIN (B-12) 500 MCG TABLET PO SCH (09:50)
[2022-05-15] MEDS: ASPIRIN 81 MG ECTAB PO SCH (09:50)
[2022-05-15] MEDS: hydrALAZINE TAB 50 MG TAB PO SCH ×3 (09:50→22:42)
[2022-05-15] MEDS: PREGABALIN 25 MG CAP PO SCH ×2 (09:57→22:40)
[2022-05-15] MEDS: FIDAXOMICIN 200 MG TAB PO SCH ×2 (11:18→22:37)
--- NOTE | 2022-05-15 11:25 | Pharmacy Report ---
Pharmacy Glycemic Short Note 2 - Date of Service May 15, 2022 - Glycemic Short BSG Results (Last 24 hours): 05/14/22 05/14/22 05/14/22 14:15 18:12 21:04 Glucose 171 H POC Glucose 168 H 161 H 05/14/22 05/15/22 05/15/22 23:30 06:11 08:10 Glucose 153 H POC Glucose 160 H 158 H OUTPATIENT ANTIDIABETIC REGIMEN: * Humulin 75 units in AM, 40 units in PM - per notes, unclear when patient took last dose ASSESSMENT: * Patient admitted with sepsis, cdiff - started on antibiotics on arrival. Type 2 diabetic on large amount of insulin at home. Patient with cdiff/diarrhea and not eating yesterday, therefore basal insulin held * Fasting BSG 153 mg/dL - will see how patient eats and may add low dose at lunch time today. Patient known to our glycemic service from other admissions. Most recent admission 04/2021 patient receiving 15-20 units of Lantus and bsgs were stable. Likely will start with that if BSGs trending upward PLAN FOR INPATIENT GLYCEMIC CONTROL: * Hold outpatient oral diabetes medications * Basal insulin * Lantus - hold for now / possibly add on low dose later today * Bolus insulin * NovoLog per scale ACHS or Q6hrs while NPO * Goal Range: Low 110 mg/dL - High 140 mg/dL * Correction Factor: 25 mg/dL/unit * Nutritional / Prandial insulin per carb ratio of 1 unit per 8 grams CHO consumed
--- NOTE | 2022-05-15 11:39 | Electrocardiogram Report ---
Test Reason : Blood Pressure : / mmHG Vent. Rate : 098 BPM Atrial Rate : 098 BPM P-R Int : 200 ms QRS Dur : 090 ms QT Int : 310 ms P-R-T Axes : 051 -07 007 degrees QTc Int : 395 ms Poor data quality, interpretation may be adversely affected Normal sinus rhythm Nonspecific ST and T wave abnormality Abnormal ECG When compared with ECG of 26-APR-2022 00:49, Nonspecific ST and T wave abnormality is now present Confirmed by Andre Cooper ([id number]) on 05/15/2022 11:39:02 AM Referred By: REFERRED SELF Confirmed By:Andre Cooper
--- NOTE | 2022-05-15 12:19 | Hospitalist Progress Note ---
Date of Service May 15, 2022 Assessment & Plan (1) C. difficile colitis: Plan: - positive C diff toxin - recurrent C diff - last episode 05/2021 - treat with fidoxamicin 200mg BID for 10 days - monitor for response - IVF hydrtaion (2) Sepsis: Plan: - presented with tachycardia to 97, WBC 17, diarrhea and evidence of diverticulitis on CT-AP - IVF resuscitation - telemetry monitoring - blood cultures - C diff was positive - discontinue broad spectrum abx - start fidoxamicin for recurrent C diff (3) Diverticulitis large intestine w/o perforation or abscess w/o bleeding: Plan: - has history of diverticulitis as well as C diff colitis - stool studies sent by ED - no blood in stools, per patient - CT AP with colonic diverticulosis and sigmoid diverticulitis without evidence of perforation or abscess - blood cultures pending - s/p IVF in ED - will be careful with IVF given history of CHF - s/p 1 dose of zosyn in ED - discontinued cefepime and flagyl --> start fidoxamicin for recurrent C diff - clear liquid diet for now - advance as tolerated (4) Leukocytosis: Plan: - likely in the setting of diverticulitis - management as above - trend WBC (5) Acute kidney injury superimposed on CKD: Plan: - Cr 2.9 on admission with baseline around 2.3-2.5 - likely in the setting of ongoing diarrhea and decreaed po intake - s/p 1L IVF in the ED - will give gentle fluids for now - encourage po intake - strict I/O - trend Cr (6) Generalized weakness: Plan: - in the setting of sepsis with diverticulitis and decreased po intake - IVF as above - abx as above - encourage po intake - OOB to chair when able (7) Congestive heart failure: Plan: - TTE in 2019 with normal EF and GIDD - not in acute exacerbation - appears a little dry on exam - s/p 1L IVF in the ED - will give 1L more IVF slowly - continue medications (8) Type 2 diabetes mellitus with hyperglycemia: Plan: - A1c 6.5% 03/2022 - reportedly on 70/30 NPH at home 75 units AM and 50 units PM - BG 171 on admission - in the setting of decreased po intake will start with lantus 30 units BID - SSI for correctional scale - FSG AC+HS - diabetic diet (9) COVID: Plan: - still positive since 04/26/2022 - likely not related to COVID - saturating well on RA - monitor for now (10) Hypertension: Plan: - hypertensive in the ED - resume home medications at slightly reduced rate given sepsis - monitor and add full dose medications when appropriate Plan DVT ppx: heparin SC Full Code Paul De La Vega MD Hospital Medicine Admission and Anticipated Discharge Date Admission Date: May 14, 2022 Subjective The patient is a 86 year old woman with pmh HFpEF (Ef 55-60%, GIDD in 2019), LBBB, PVD, HTN, DM on insulin, CKD stage 3 (baseline Cr 2.3), GERD, chronic anemia presented for 2 days of worsening diarrhea with fever and chills. She was found to have a recurrent episode of C diff colitis (last 05/2021). Broad spectrum abx were discontinued and she was started on fidaxomicin 200mg BID for 10 days. She feels a little better but is still having abdominal pain and diarrhea. Denies chest pain, shortness of breath, n/v, dysuria, cough. Review of Systems Review of Systems: All systems reviewed & are unremarkable except as noted in Subjective Physical Exam Constitutional: WD/WN, vitals as above + ill appearing and + morbidly obese; + not appropriately hydrated Eyes: PERRL, conjunctivae normal, anicteric sclerae ENMT: Ears: no external ear abnormality Nose: no external nose abnormality Neck: trachea midline, no thyromegaly Respiratory: normal respiratory effort, lungs clear to auscultation Cardiovascular: RRR, no murmur, no edema Gastrointestinal (Abdomen): Inspection/Auscultation: abdomen normal to inspection, + abdomen distended, normal bowel sounds, + significant pannus and + abdominal surgical scar (cholecystectomy scar well healed) Percussion/Palpation: + abdomen tender (diffusely but mostly RLQ and LLQ) and abdomen soft; no guarding and abdomen not rigid Musculoskeletal: no cyanosis or clubbing, extremities motor strength 5/5 Skin: no rashes, warm and dry Neurologic: patellar DTR's 2+ bilat, sensation intact and PERRL, EOMI, accommodation nl, no face palsy, no dysarthria Psychiatric: A+Ox3, euthymic affect Results & Data Results & Data ([facility]) Vital Signs (Past 12 Hours) Vital Signs Temp Pulse Pulse Resp BP Pulse Ox O2 Del Method 05/15/22 11:36 37.1 C 76 20 122/65 95 Nasal Cannula 05/15/22 10:29 Nasal Cannula 05/15/22 08:47 37.0 C 79 20 136/70 95 Nasal Cannula 05/15/22 08:06 78 05/15/22 04:00 37.1 C 79 18 148/70 H 96 Nasal Cannula 05/15/22 03:33 Nasal Cannula 05/15/22 01:41 89 05/15/22 01:36 Nasal Cannula O2 Flow Rate 05/15/22 11:36 2 05/15/22 10:29 2 05/15/22 08:47 2 05/15/22 08:06 05/15/22 04:00 2 05/15/22 03:33 05/15/22 01:41 05/15/22 01:36 2 Laboratory Results Short CBC 05/14/22 05/15/22 Range/Units 14:15 06:11 WBC 17.11 H 13.33 H (4.8-10.8) K/ul Hgb 9.5 L 8.5 L (12.0-16.0) g/dl Hct 29.6 L 26.5 L (34.1-44.9) % Plt Count 264 247 (130-400) K/uL BMP 05/14/22 05/15/22 14:15 06:11 Sodium 135 L 137 Potassium 3.6 3.1 L Chloride 101 104 Carbon Dioxide 25 24 BUN 68 H 65 H Creatinine 2.89 H 2.96 H Glucose 171 H 153 H Calcium 10.0 9.0 Liver Function 05/14/22 05/15/22 Range/Units 14:15 06:11 Total Bilirubin 1.1 H 1.1 H (0.2-1.0) mg/dl AST 11 L 10 L (13-39) U/L ALT 9 7 (7-52) U/L Alkaline Phosphatase 65 57 (34-104) U/L Albumin 4.0 3.4 (3.4-5.0) gm/dl Urine 05/14/22 Range/Units 15:30 Urine Color Yellow Urine Appearance Clear (Clear) Urine pH 5.0 (4.5-7.5) Ur Specific [place] 1.011 (1.000-1.030) Urine Protein 2+ H (Negative) Urine Glucose (UA) Negative (Negative) Medications Administered Current Inpatient Medications Aspirin (Aspirin 81 Mg Ectab) 81 mg PO QAM [facility] Stop: 06/14/22 08:59 Last Admin: 05/15/22 09:50 Dose: 81 mg Calcitriol (Calcitriol 0.25 Mcg Capsule) 0.25 mcg PO QAM [facility] Stop: 06/14/22 08:59 Last Admin: 05/15/22 09:49 Dose: 0.25 mcg Carvedilol (Carvedilol 25 Mg Tab) 25 mg PO BID [facility] Stop: 06/13/22 20:59 Last Admin: 05/15/22 09:50 Dose: 25 mg Cyanocobalamin (Cyanocobalamin (B-12) 500 Mcg Tablet) 500 mcg PO QAM [facility] Stop: 06/14/22 08:59 Last Admin: 05/15/22 09:50 Dose: 500 mcg Dextrose (Dextrose 50% 50 Ml Syringe) 25 - 50 ml IV UD PRN; Protocol PRN Reason: Hypoglycemia Protocol Stop: 06/13/22 16:50 Famotidine (Famotidine 40 Mg Tablet) 40 mg PO [facility] Stop: 06/14/22 08:59 Last Admin: 05/15/22 09:50 Dose: 40 mg Fidaxomicin (Fidaxomicin 200 Mg Tab) 200 mg PO BID [facility] Stop: 05/25/22 09:59 Last Admin: 05/15/22 11:18 Dose: 200 mg Glucagon (Glucagon For Inj 1 Mg Vial) 1 mg SQ UD PRN; Protocol PRN Reason: Hypoglycemia Protocol Stop: 06/13/22 16:50 Glucose (Glucose 40% Gel 15 Gm Tube) 15 - 30 gm PO UD PRN; Protocol PRN Reason: Hypoglycemia Protocol Stop: 06/13/22 16:50 Glucose (Glucose 10 Tab/Tube) 4 - 8 tab PO UD PRN; Protocol PRN Reason: Hypoglycemia Treatment Stop: 06/13/22 16:50 Heparin Sodium (Porcine) (Heparin Sod 5,000 Unit/0.5 Ml Vial) 5,000 units SQ Q8 [facility] Stop: 06/13/22 21:59 Last Admin: 05/15/22 05:47 Dose: 5,000 units Hydralazine HCl (Hydralazine Tab 50 Mg Tab) 50 mg PO TID [facility] Stop: 06/13/22 20:59 Last Admin: 05/15/22 09:50 Dose: 50 mg Potassium Chloride 40 meq/ (Sodium Chloride) 520 mls @ 125 mls/hr IV .Q4H10M ONE Stop: 05/15/22 16:20 Insulin Aspart (Insulin Aspart Per Unit) 0 units SC ACHS [facility] Stop: 06/13/22 17:59 Last Admin: 05/15/22 09:44 Dose: 3 units Isosorbide Dinitrate (Isosorbide Dinitrate 20 Mg Tab) 20 mg PO TID@0700,1200,1700 [facility] Stop: 06/14/22 06:59 Last Admin: 05/15/22 05:47 Dose: 20 mg Miscellaneous (Carbohydrates For Hypoglycemia ) 15 - 30 gm PO UD PRN PRN Reason: Hypoglycemia Protocol Stop: 06/13/22 16:50 Miscellaneous Information (Pharmacy Glycemic Mgmt Consult) 1 each N/A UD PRN PRN Reason: Consult Stop: 06/13/22 16:50 Ondansetron HCl (Ondansetron Inj 2 Mg/Ml 2 Ml Vial) 4 mg IV Q6H PRN PRN Reason: Nausea And Vomiting Stop: 05/17/22 17:02 Pregabalin (Pregabalin 25 Mg Cap) 25 mg PO BID [facility] Stop: 06/13/22 20:59 Last Admin: 05/15/22 09:57 Dose: 25 mg Rosuvastatin Calcium (Rosuvastatin Calcium 10 Mg Tab) 10 mg PO HS [facility] Stop: 06/13/22 20:59 Last Admin: 05/14/22 23:42 Dose: 10 mg (1) Sepsis Severe sepsis shock status: without septic shock
[2022-05-15] MEDS ORDERED: POTASSIUM CHLORIDE 40 MEQ in SODIUM CHLORIDE 0.9% 1000ML 500 ML IV ONE (12:30)
[2022-05-15] MEDS ORDERED: LANTUS PER UNIT CHARGE SQ ONE ×2 (12:30→14:15)
[2022-05-15] MEDS ORDERED: CEFEPIME 1,000 MG in SYRINGE 0 ML IV SCH (18:00)
[2022-05-15] MEDS ORDERED: LANTUS PER UNIT CHARGE SQ SCH (21:00)
[2022-05-15] MEDS: ROSUVASTATIN CALCIUM 10 MG TAB PO SCH (22:42)
[2022-05-16] MEDS: HEPARIN SOD 5,000 UNIT/0.5 ML VIAL SQ SCH ×3 (06:07→20:43)
[2022-05-16] MEDS: ISOSORBIDE DINITRATE 20 MG TAB PO SCH ×3 (06:10→18:05)
[2022-05-16 06:35] LABS: Estimated Average Glucose 143 mg/dl; Hemoglobin A1C 6.6 % (4.5-5.6)
[2022-05-16 06:49] LABS: Basophils # (auto) 0.04 K/uL (0-0.2); Basophils % (auto) 0.4 %; Hematocrit (blood only) 24.8 % (34.1-44.9); Immature Granulocytes # (auto) 0.08 K/uL (0.00-0.02); Immature Granulocytes % (auto) 0.8 %; Lymphocytes # (auto) 1.08 K/uL (1.2-3.4); Lymphocytes % (auto) 10.8 %; Mean Corpuscular Hemoglobin 29.6 pg (25.0-34.0); Mean Corpuscular Hgb Conc 32.3 g/dL (32.0-36.0); Mean Corpuscular Volume 91.9 fL (80.0-100.0); Monocytes # (auto) 0.97 K/uL (0.24-0.82); Monocytes % (auto) 9.7 %; Neutrophils # (auto) 7.52 K/uL (1.4-6.5); Neutrophils % (auto) 75.3 %; Platelet Count 246 K/uL (130-400); RDW Coefficient of Variation 14.6 % (11.5-14.5); RDW Standard Deviation 49.2 fL (36.4-46.3); White Blood Count 9.99 K/ul (4.8-10.8)
[2022-05-16 07:40] LABS: Calcium 8.8 mg/dl (8.5-10.1); Creatinine Clr Calc Pharmacy 15.4 ml/min; Est GFR (African American) 15.2 ml/min; Est GFR (Non-African American) 13.1 ml/min; Magnesium 1.9 mg/dl (1.7-2.4); Phosphorus 3.4 mg/dl (2.5-4.9); Potassium 3.3 mmol/L (3.5-5.1)
[2022-05-16] MEDS: INSULIN ASPART PER UNIT SC SCH ×4 (09:21→20:37)
[2022-05-16] MEDS: LANTUS PER UNIT CHARGE SQ SCH (09:23)
[2022-05-16] MEDS: hydrALAZINE TAB 50 MG TAB PO SCH ×3 (09:30→20:42)
[2022-05-16] MEDS: carvediloL 25 MG TAB PO SCH ×2 (09:30→20:41)
[2022-05-16] MEDS: FAMOTIDINE 40 MG TABLET PO SCH (09:30)
[2022-05-16] MEDS: CYANOCOBALAMIN (B-12) 500 MCG TABLET PO SCH (09:30)
[2022-05-16] MEDS: ASPIRIN 81 MG ECTAB PO SCH (09:30)
[2022-05-16] MEDS: CALCITRIOL 0.25 MCG CAPSULE PO SCH (09:30)
[2022-05-16] MEDS: FIDAXOMICIN 200 MG TAB PO SCH ×2 (09:35→20:37)
[2022-05-16] MEDS: PREGABALIN 25 MG CAP PO SCH ×2 (09:35→20:48)
[2022-05-16] MEDS ORDERED: POTASSIUM CHLORIDE CRTAB 20 MEQ TABCR PO STA (14:10)
--- NOTE | 2022-05-16 14:16 | Hospitalist Progress Note ---
Date of Service May 16, 2022 Assessment & Plan (1) C. difficile colitis: Plan: - positive C diff toxin - recurrent C diff - last episode 05/2021 - treat with fidoxamicin 200mg BID for 10 days - startd 05/15/2022 - monitor for response - IVF hydrtaion (2) Sepsis: Plan: - presented with tachycardia to 97, WBC 17, diarrhea and evidence of diverticulitis on CT-AP - IVF resuscitation - telemetry monitoring - blood cultures - C diff was positive - discontinue broad spectrum abx - start fidoxamicin for recurrent C diff (3) Diverticulitis large intestine w/o perforation or abscess w/o bleeding: Plan: - has history of diverticulitis as well as C diff colitis - stool studies sent by ED - no blood in stools, per patient - CT AP with colonic diverticulosis and sigmoid diverticulitis without evidence of perforation or abscess - blood cultures pending - s/p IVF in ED - will be careful with IVF given history of CHF - s/p 1 dose of zosyn in ED - discontinued cefepime and flagyl --> started fidoxamicin for recurrent C diff as above - advance diet as tolerated (4) Leukocytosis: Plan: - likely in the setting of diverticulitis - management as above - trend WBC (5) Acute kidney injury superimposed on CKD: Plan: - Cr 2.9 on admission with baseline around 2.3-2.5 - likely in the setting of ongoing diarrhea and decreaed po intake - s/p 1L IVF in the ED - will give gentle fluids for now - encourage po intake - strict I/O - trend Cr (6) Generalized weakness: Plan: - in the setting of sepsis with diverticulitis and decreased po intake - IVF as above - abx as above - encourage po intake - OOB to chair when able (7) Congestive heart failure: Plan: - TTE in 2019 with normal EF and GIDD - not in acute exacerbation - appears a little dry on exam - s/p 1L IVF in the ED - will give 1L more IVF slowly - continue medications (8) Type 2 diabetes mellitus with hyperglycemia: Plan: - A1c 6.5% 03/2022 - reportedly on 70/30 NPH at home 75 units AM and 50 units PM - BG 171 on admission - in the setting of decreased po intake will start with lantus 30 units BID - SSI for correctional scale - FSG AC+HS - diabetic diet (9) COVID: Plan: - still positive since 04/26/2022 - likely not related to COVID - saturating well on RA - monitor for now (10) Hypertension: Plan: - hypertensive in the ED - resume home medications at slightly reduced rate given sepsis - monitor and add full dose medications when appropriate Plan DVT ppx: heparin SC Full Code Paul De La Vega MD [facility] Medicine Admission and Anticipated Discharge Date Admission Date: May 14, 2022 Subjective The patient is a 86 year old woman with pmh HFpEF (Ef 55-60%, GIDD in 2019), LBBB, PVD, HTN, DM on insulin, CKD stage 3 (baseline Cr 2.3), GERD, chronic anemia presented for 2 days of worsening diarrhea with fever and chills. She was found to have a recurrent episode of C diff colitis (last 05/2021). Broad spectrum abx were discontinued and she was started on fidaxomicin 200mg BID for 10 days. She feels better today with improvement in diarrhea and abdominal pain. She is hungry. Denies chest pain, shortness of breath, n/v, dysuria, cough. Review of Systems Review of Systems: All systems reviewed & are unremarkable except as noted in Subjective Physical Exam Constitutional: WD/WN, vitals as above + well hydrated and + morbidly obese; no acute distress and not ill appearing Eyes: PERRL, conjunctivae normal, anicteric sclerae ENMT: external ear and nose normal, oropharynx normal Ears: no external ear abnormality Nose: no external nose abnormality Mouth: oral mucous membranes not dry Neck: trachea midline, no thyromegaly Respiratory: normal respiratory effort, lungs clear to auscultation Cardiovascular: RRR, no murmur, no edema Gastrointestinal (Abdomen): Inspection/Auscultation: abdomen normal to inspection, + abdomen distended, normal bowel sounds, + significant pannus and + abdominal surgical scar (cholecystectomy scar well healed) Percussion/Palpation: abdomen soft; abdomen nontender (diffusely but mostly RLQ and LLQ), no guarding and abdomen not rigid Musculoskeletal: no cyanosis or clubbing, extremities motor strength 5/5 Skin: no rashes, warm and dry Neurologic: patellar DTR's 2+ bilat, sensation intact and PERRL, EOMI, accommodation nl, no face palsy, no dysarthria Psychiatric: A+Ox3, euthymic affect Results & Data Results & Data ([facility]) Vital Signs (Past 12 Hours) Vital Signs Temp Pulse Pulse Resp BP Pulse Ox Pulse Ox 05/16/22 11:07 36.4 C L 66 18 146/68 H 95 05/16/22 11:06 97 05/16/22 08:30 05/16/22 08:00 71 05/16/22 07:05 36.5 C 80 18 127/58 L 95 05/16/22 04:10 36.6 C 68 18 126/69 99 Pulse Ox Pulse Ox O2 Del Method O2 Flow Rate O2 Flow Rate 05/16/22 11:07 Room Air 05/16/22 11:06 97 92 2 05/16/22 08:30 Nasal Cannula 2 05/16/22 08:00 05/16/22 07:05 Nasal Cannula 2 05/16/22 04:10 Nasal Cannula 2 Laboratory Results Short CBC 05/16/22 Range/Units 06:16 WBC 9.99 (4.8-10.8) K/ul Hgb 8.0 L (12.0-16.0) g/dl Hct 24.8 L (34.1-44.9) % Plt Count 246 (130-400) K/uL BMP 05/16/22 06:16 Sodium 136 Potassium 3.3 L Chloride 104 Carbon Dioxide 23 BUN 67 H Creatinine 3.05 H Glucose 92 Calcium 8.8 Medications Administered Current Inpatient Medications Aspirin (Aspirin 81 Mg Ectab) [facility] [place] Stop: 06/14/22 08:59 Last Admin: 05/16/22 09:30 Dose: 81 mg Calcitriol (Calcitriol 0.25 Mcg Capsule) 0.25 mcg PO QAM [facility] Stop: 06/14/22 08:59 Last Admin: 05/16/22 09:30 Dose: 0.25 mcg Carvedilol (Carvedilol 25 Mg Tab) 25 mg PO BID [facility] Stop: 06/13/22 20:59 Last Admin: 05/16/22 09:30 Dose: 25 mg Cyanocobalamin (Cyanocobalamin (B-12) 500 Mcg Tablet) 500 mcg PO QAM [facility] Stop: 06/14/22 08:59 Last Admin: 05/16/22 09:30 Dose: 500 mcg Dextrose (Dextrose 50% 50 Ml Syringe) 25 - 50 ml IV UD PRN; Protocol PRN Reason: Hypoglycemia Protocol Stop: 06/13/22 16:50 Famotidine (Famotidine 40 Mg Tablet) 40 mg PO QAM [facility] Stop: 06/14/22 08:59 Last Admin: 05/16/22 09:30 Dose: 40 mg Fidaxomicin (Fidaxomicin 200 Mg Tab) 200 mg PO BID [facility] Stop: 05/25/22 09:59 Last Admin: 05/16/22 09:35 Dose: 200 mg Glucagon (Glucagon For Inj 1 Mg Vial) 1 mg SQ UD PRN; Protocol PRN Reason: Hypoglycemia Protocol Stop: 06/13/22 16:50 Glucose (Glucose 40% Gel 15 Gm Tube) 15 - 30 gm PO UD PRN; Protocol PRN Reason: Hypoglycemia Protocol Stop: 06/13/22 16:50 Glucose (Glucose 10 Tab/Tube) 4 - 8 tab PO UD PRN; Protocol PRN Reason: Hypoglycemia Treatment Stop: 06/13/22 16:50 Heparin Sodium (Porcine) (Heparin Sod 5,000 Unit/0.5 Ml Vial) 5,000 units SQ Q8 [facility] Stop: 06/13/22 21:59 Last Admin: 05/16/22 13:28 Dose: 5,000 units Hydralazine HCl (Hydralazine Tab 50 Mg Tab) 50 mg PO TID [facility] Stop: 06/13/22 20:59 Last Admin: 05/16/22 13:27 Dose: 50 mg Potassium Chloride 40 meq/ (Sodium Chloride) 520 mls @ 125 mls/hr IV .Q4H10M ONE Stop: 05/16/22 18:17 Insulin Aspart (Insulin Aspart Per Unit) 0 units SC ACHS [facility] Stop: 06/13/22 17:59 Last Admin: 05/16/22 12:36 Dose: 4 units Insulin Glargine (Lantus Per Unit Charge) 15 units SQ QAM [facility] Stop: 06/15/22 08:59 Last Admin: 05/16/22 09:23 Dose: 15 units Isosorbide Dinitrate (Isosorbide Dinitrate 20 Mg Tab) 20 mg PO TID@0700,1200,1700 [facility] Stop: 06/14/22 06:59 Last Admin: 05/16/22 13:28 Dose: 20 mg Miscellaneous (Carbohydrates For Hypoglycemia ) 15 - 30 gm PO UD PRN PRN Reason: Hypoglycemia Protocol Stop: 06/13/22 16:50 Miscellaneous Information (Pharmacy Glycemic Mgmt Consult) 1 each N/A UD PRN PRN Reason: Consult Stop: 06/13/22 16:50 Ondansetron HCl (Ondansetron Inj 2 Mg/Ml 2 Ml Vial) 4 mg IV Q6H PRN PRN Reason: Nausea And Vomiting Stop: 05/17/22 17:02 Potassium Chloride (Potassium Chloride Crtab 20 Meq Tabcr) 20 meq PO NOW [facility] Stop: 05/16/22 14:11 Pregabalin (Pregabalin 25 Mg Cap) 25 mg PO BID [facility] Stop: 06/13/22 20:59 Last Admin: 05/16/22 09:35 Dose: 25 mg Rosuvastatin Calcium (Rosuvastatin Calcium 10 Mg Tab) 10 mg PO HS [facility] Stop: 06/13/22 20:59 Last Admin: 05/15/22 22:42 Dose: 10 mg (1) Sepsis Severe sepsis shock status: without septic shock
[2022-05-16] MEDS ORDERED: POTASSIUM CHLORIDE 40 MEQ in SODIUM CHLORIDE 0.9% 500 ML IV ONE (15:00)
[2022-05-16] MEDS: ROSUVASTATIN CALCIUM 10 MG TAB PO SCH (20:42)
[2022-05-17] MEDS: ISOSORBIDE DINITRATE 20 MG TAB PO SCH ×3 (06:03→17:50)
[2022-05-17] MEDS: HEPARIN SOD 5,000 UNIT/0.5 ML VIAL SQ SCH ×3 (06:04→21:04)
[2022-05-17 07:30] LABS: Basophils # (auto) 0.04 K/uL (0-0.2); Basophils % (auto) 0.5 %; Eosinophils # (auto) 0.48 K/uL (0-0.50); Eosinophils % (auto) 6.1 %; Hematocrit (blood only) 26.8 % (34.1-44.9); Hemoglobin 8.6 g/dl (12.0-16.0); Immature Granulocytes # (auto) 0.14 K/uL (0.00-0.02); Immature Granulocytes % (auto) 1.8 %; Lymphocytes # (auto) 1.13 K/uL (1.2-3.4); Lymphocytes % (auto) 14.2 %; Mean Corpuscular Hemoglobin 29.7 pg (25.0-34.0); Mean Corpuscular Hgb Conc 32.1 g/dL (32.0-36.0); Mean Corpuscular Volume 92.4 fL (80.0-100.0); Monocytes # (auto) 0.81 K/uL (0.24-0.82); Monocytes % (auto) 10.2 %; Neutrophils # (auto) 5.33 K/uL (1.4-6.5); Neutrophils % (auto) 67.2 %; Platelet Count 271 K/uL (130-400); RDW Coefficient of Variation 14.5 % (11.5-14.5); RDW Standard Deviation 49.1 fL (36.4-46.3); White Blood Count 7.93 K/ul (4.8-10.8)
[2022-05-17] MEDS: carvediloL 25 MG TAB PO SCH ×2 (07:37→21:04)
[2022-05-17] MEDS: hydrALAZINE TAB 50 MG TAB PO SCH (07:37)
[2022-05-17] MEDS: CALCITRIOL 0.25 MCG CAPSULE PO SCH (07:38)
[2022-05-17] MEDS: ASPIRIN 81 MG ECTAB PO SCH (07:38)
[2022-05-17] MEDS: CYANOCOBALAMIN (B-12) 500 MCG TABLET PO SCH (07:38)
[2022-05-17 07:57] LABS: BUN Creatinine Ratio 22.2 (10-20); Calcium 9.2 mg/dl (8.5-10.1); Creatinine Clr Calc Pharmacy 17.1 ml/min; Est GFR (Non-African American) 14.6 ml/min; Magnesium 1.9 mg/dl (1.7-2.4); Phosphorus 2.7 mg/dl (2.5-4.9); Potassium 4.2 mmol/L (3.5-5.1)
[2022-05-17] MEDS: INSULIN ASPART PER UNIT SC SCH ×4 (08:55→21:00)
[2022-05-17] MEDS: FAMOTIDINE 40 MG TABLET PO SCH (09:04)
[2022-05-17] MEDS: FIDAXOMICIN 200 MG TAB PO SCH ×2 (09:04→20:56)
[2022-05-17] MEDS: PREGABALIN 25 MG CAP PO SCH ×2 (09:04→20:56)
[2022-05-17] MEDS: LANTUS PER UNIT CHARGE SQ SCH (09:06)
[2022-05-17] MEDS ORDERED: LACTATED RINGER'S 500 ML IV ONE (10:16)
--- NOTE | 2022-05-17 10:20 | Hospitalist Progress Note ---
Date of Service May 17, 2022 Assessment & Plan (1) C. difficile colitis: Plan: - positive C diff toxin - recurrent C diff - last episode 05/2021 - treat with fidoxamicin 200mg BID for 10 days - startd 05/15/2022 - monitor for response - improving - still diarrhea but less often, becoming more loose than watery - IVF hydrtaion (2) Sepsis: Plan: - presented with tachycardia to 97, WBC 17, diarrhea and evidence of diverticulitis on CT-AP - IVF resuscitation - telemetry monitoring - blood cultures - C diff was positive - discontinued broad spectrum abx - on fidoxamicin for recurrent C diff - resolved (3) Diverticulitis large intestine w/o perforation or abscess w/o bleeding: Plan: - has history of diverticulitis as well as C diff colitis - stool studies sent by ED - no blood in stools, per patient - CT AP with colonic diverticulosis and sigmoid diverticulitis without evidence of perforation or abscess - blood cultures pending - s/p IVF in ED - will be careful with IVF given history of CHF - s/p 1 dose of zosyn in ED - discontinued cefepime and flagyl --> started fidoxamicin for recurrent C diff as above - advance diet as tolerated - tolerating regular diet (4) Leukocytosis: Plan: - likely in the setting of diverticulitis - management as above - trend WBC - resolved (5) Acute kidney injury superimposed on CKD: Plan: - Cr 2.9 on admission with baseline around 2.3-2.5 - likely in the setting of ongoing diarrhea and decreaed po intake - s/p 1L IVF in the ED - will give gentle fluids for now - encourage po intake - strict I/O - trend Cr (6) Generalized weakness: Plan: - in the setting of sepsis with diverticulitis and decreased po intake - IVF as above - abx as above - encourage po intake - OOB to chair when able (7) Congestive heart failure: Plan: - TTE in 2019 with normal EF and GIDD - not in acute exacerbation - continue medications (8) Type 2 diabetes mellitus with hyperglycemia: Plan: - A1c 6.5% 03/2022 - reportedly on 70/30 NPH at home 75 units AM and 50 units PM - BG 171 on admission - in the setting of decreased po intake will start with lantus 30 units BID - SSI for correctional scale - FSG AC+HS - diabetic diet (9) COVID: Plan: - still positive since 04/26/2022 - likely not related to COVID - saturating well on RA - monitor for now (10) Hypertension: Plan: - hypertensive in the ED - resume home medications at slightly reduced rate given sepsis - monitor and add full dose medications when appropriate Plan DVT ppx: heparin SC Full Code Paul De La Vega MD [facility] Medicine Admission and Anticipated Discharge Date Admission Date: May 14, 2022 Subjective The patient is a 86 year old woman with pmh HFpEF (Ef 55-60%, GIDD in 2019), LBBB, PVD, HTN, DM on insulin, CKD stage 3 (baseline Cr 2.3), GERD, chronic anemia presented for 2 days of worsening diarrhea with fever and chills. She was found to have a recurrent episode of C diff colitis (last 05/2021). Broad spectrum abx were discontinued and she was started on fidaxomicin 200mg BID for 10 days. She feels better today with improvement in diarrhea and abdominal pain but still with diarrhea multiple times a day. tolerating regular diet well. Denies chest pain, shortness of breath, n/v, dysuria, cough. Review of Systems Review of Systems: All systems reviewed & are unremarkable except as noted in Subjective Physical Exam Constitutional: WD/WN, vitals as above + well hydrated and + morbidly obese; no acute distress and not ill appearing Eyes: PERRL, conjunctivae normal, anicteric sclerae ENMT: external ear and nose normal, oropharynx normal Ears: no external ear abnormality Nose: no external nose abnormality Mouth: oral mucous membranes not dry Neck: trachea midline, no thyromegaly Respiratory: normal respiratory effort, lungs clear to auscultation Cardiovascular: RRR, no murmur, no edema Gastrointestinal (Abdomen): Inspection/Auscultation: abdomen normal to inspection, + abdomen distended, normal bowel sounds, + significant pannus and + abdominal surgical scar (cholecystectomy scar well healed) Percussion/Palpati on: abdomen soft; abdomen nontender (diffusely but mostly RLQ and LLQ), no guarding and abdomen not rigid Musculoskeletal: no cyanosis or clubbing, extremities motor strength 5/5 Skin: no rashes, warm and dry Neurologic: patellar DTR's 2+ bilat, sensation intact and PERRL, EOMI, accommodation nl, no face palsy, no dysarthria Psychiatric: A+Ox3, euthymic affect Results & Data Results & Data ([facility]) Vital Signs (Past 12 Hours) Vital Signs Temp Pulse Pulse Resp BP Pulse Ox O2 Del Method 05/17/22 08:00 Room Air 05/17/22 07:18 36.4 C L 78 20 125/77 95 Room Air 05/17/22 06:54 36.7 C 69 18 135/64 97 05/17/22 03:38 36.9 C 75 20 167/61 H 99 05/17/22 01:17 73 05/16/22 23:32 36.8 C 72 20 156/67 H 97 O2 Flow Rate 05/17/22 08:00 05/17/22 07:18 05/17/22 06:54 2 05/17/22 03:38 2 05/17/22 01:17 05/16/22 23:32 2 Laboratory Results Short CBC 05/17/22 Range/Units 07:10 WBC 7.93 (4.8-10.8) K/ul Hgb 8.6 L (12.0-16.0) g/dl Hct 26.8 L (34.1-44.9) % Plt Count 271 (130-400) K/uL BMP 05/17/22 07:10 Sodium 135 L Potassium 4.2 D Chloride 106 Carbon Dioxide 22 BUN 62 H Creatinine 2.79 H Glucose 122 H Calcium 9.2 Medications Administered Current Inpatient Medications Aspirin (Aspirin 81 Mg Ectab) 81 mg PO [facility] Stop: 06/14/22 08:59 Last Admin: 05/17/22 07:38 Dose: 81 mg Calcitriol (Calcitriol 0.25 Mcg Capsule) 0.25 mcg PO QA [facility] Stop: 06/14/22 08:59 Last Admin: 05/17/22 07:38 Dose: 0.25 mcg Carvedilol (Carvedilol 25 Mg Tab) 25 mg PO BID [facility] Stop: 06/13/22 20:59 Last Admin: 05/17/22 07:37 Dose: 25 mg Cyanocobalamin (Cyanocobalamin (B-12) 500 Mcg Tablet) [facility] Stop: 06/14/22 08:59 Last Admin: 05/17/22 07:38 Dose: 500 mcg Dextrose (Dextrose 50% 50 Ml Syringe) 25 - 50 ml IV UD PRN; Protocol PRN Reason: Hypoglycemia Protocol Stop: 06/13/22 16:50 Famotidine (Famotidine 40 Mg Tablet) 40 mg PO QAM [facility] Stop: 06/14/22 08:59 Last Admin: 05/17/22 09:04 Dose: 40 mg Fidaxomicin (Fidaxomicin 200 Mg Tab) 200 mg PO BID [facility] Stop: 05/25/22 09:59 Last Admin: 05/17/22 09:04 Dose: 200 mg Glucagon (Glucagon For Inj 1 Mg Vial) 1 mg SQ UD PRN; Protocol PRN Reason: Hypoglycemia Protocol Stop: 06/13/22 16:50 Glucose (Glucose 40% Gel 15 Gm Tube) 15 - 30 gm PO UD PRN; Protocol PRN Reason: Hypoglycemia Protocol Stop: 06/13/22 16:50 Glucose (Glucose 10 Tab/Tube) 4 - 8 tab PO UD PRN; Protocol PRN Reason: Hypoglycemia Treatment Stop: 06/13/22 16:50 Heparin Sodium (Porcine) (Heparin Sod 5,000 Unit/0.5 Ml Vial) 5,000 units SQ Q8 [facility] Stop: 06/13/22 21:59 Last Admin: 05/17/22 06:04 Dose: 5,000 units Hydralazine HCl (Hydralazine Tab 50 Mg Tab) 50 mg PO TID [facility] Stop: 06/13/22 20:59 Last Admin: 05/17/22 07:37 Dose: 50 mg Lactated Ringer's (Lr) 500 mls @ 125 mls/hr IV .Q4H ONE Stop: 05/17/22 14:15 Insulin Aspart (Insulin Aspart Per Unit) 0 units SC ACHS [facility] Stop: 06/13/22 17:59 Last Admin: 05/17/22 08:55 Dose: 9 units Insulin Glargine (Lantus Per Unit Charge) 15 units SQ QAM [facility] Stop: 06/15/22 08:59 Last Admin: 05/17/22 09:06 Dose: 15 units Isosorbide Dinitrate (Isosorbide Dinitrate 20 Mg Tab) 20 mg PO TID@0700,1200,1700 [facility] Stop: 06/14/22 06:59 Last Admin: 05/17/22 06:03 Dose: 20 mg Miscellaneous (Carbohydrates For Hypoglycemia ) 15 - 30 gm PO UD PRN PRN Reason: Hypoglycemia Protocol Stop: 06/13/22 16:50 Miscellaneous Information (Pharmacy Glycemic Mgmt Consult) 1 each N/A UD PRN PRN Reason: Consult Stop: 06/13/22 16:50 Ondansetron HCl (Ondansetron Inj 2 Mg/Ml 2 Ml Vial) 4 mg IV Q6H PRN PRN Reason: Nausea And Vomiting Stop: 05/17/22 17:02 Pregabalin (Pregabalin 25 Mg Cap) 25 mg PO BID [facility] Stop: 06/13/22 20:59 Last Admin: 05/17/22 09:04 Dose: 25 mg Rosuvastatin Calcium (Rosuvastatin Calcium 10 Mg Tab) 10 mg PO HS [facility] Stop: 06/13/22 20:59 Last Admin: 05/16/22 20:42 Dose: 10 mg (1) Sepsis Severe sepsis shock status: without septic shock
[2022-05-17] MEDS: hydrALAZINE HCL 25 MG TAB PO SCH ×2 (13:29→21:03)
[2022-05-17] MEDS: ACETAMINOPHEN 325 MG TAB PO PRN (18:14)
[2022-05-17] MEDS: ROSUVASTATIN CALCIUM 10 MG TAB PO SCH (21:02)
[2022-05-18] MEDS ORDERED: METOPROLOL TARTRATE 1 MG/ML VIAL IV STA (01:04)
[2022-05-18] MEDS ORDERED: MAGNESIUM SULFATE / D5W 1 GM/100 ML BAG IV ONE (01:04)
[2022-05-18] MEDS: HEPARIN SOD 5,000 UNIT/0.5 ML VIAL SQ SCH ×3 (05:29→20:49)
[2022-05-18] MEDS: ISOSORBIDE DINITRATE 20 MG TAB PO SCH ×3 (06:21→15:53)
[2022-05-18] MEDS: FAMOTIDINE 40 MG TABLET PO SCH (07:39)
[2022-05-18] MEDS: CALCITRIOL 0.25 MCG CAPSULE PO SCH (07:39)
[2022-05-18] MEDS: ASPIRIN 81 MG ECTAB PO SCH (07:39)
[2022-05-18] MEDS: CYANOCOBALAMIN (B-12) 500 MCG TABLET PO SCH (07:39)
[2022-05-18] MEDS: hydrALAZINE HCL 25 MG TAB PO SCH ×2 (07:40→11:10)
[2022-05-18] MEDS: carvediloL 25 MG TAB PO SCH ×2 (07:40→20:47)
[2022-05-18] MEDS: PREGABALIN 25 MG CAP PO SCH ×2 (07:44→20:46)
[2022-05-18] MEDS: FIDAXOMICIN 200 MG TAB PO SCH ×2 (07:50→20:46)
[2022-05-18] MEDS: INSULIN ASPART PER UNIT SC SCH ×4 (08:40→20:54)
[2022-05-18] MEDS: LANTUS PER UNIT CHARGE SQ SCH (08:41)
[2022-05-18 09:31] LABS: Calcium 9.6 mg/dl (8.5-10.1); Est GFR (African American) 22.2 ml/min; Est GFR (Non-African American) 19.2 ml/min; Magnesium 2.2 mg/dl (1.7-2.4); Phosphorus 2.7 mg/dl (2.5-4.9); Potassium 4.3 mmol/L (3.5-5.1)
[2022-05-18] MEDS: ACETAMINOPHEN 325 MG TAB PO PRN (11:19)
--- NOTE | 2022-05-18 11:45 | Hospitalist Progress Note ---
Date of Service May 18, 2022 Assessment & Plan (1) C. difficile colitis: Plan: - positive C diff toxin - recurrent C diff - last episode 05/2021 - treat with fidoxamicin 200mg BID for 10 days - startd 05/15/2022 -two small semi formed stools this am and no abdominal pain or fevers. -Leukocytosis has resolved. Continue fidaxomicin for remainder of course. (2) Sepsis: Plan: - presented with tachycardia to 97, WBC 17, diarrhea and evidence of diverticulitis on CT-AP - IVF resuscitation - telemetry monitoring - blood cultures - C diff was positive - discontinued broad spectrum abx - on fidoxamicin for recurrent C diff - resolved (3) Acute heart failure with preserved ejection fraction: Plan: In setting of sepsis patient was home Lasix was held and she was given IV fluids. Today she is persistently coughing and I am concerned for pulmonary edema. Chest x-ray is pending we will start with Lasix 40 mg IV now and continue daily. Trend BMP. Oxygen supplementation as needed. Of note she is 98% on 2 L/min today. Last evaluation of ejection fraction was in October 2019 revealing ejection fraction 55 to 60%. With grade 1 diastolic dysfunction noted. (4) Diverticulitis large intestine w/o perforation or abscess w/o bleeding: Plan: - has history of diverticulitis as well as C diff colitis - stool studies sent by ED - no blood in stools, per patient - CT AP with colonic diverticulosis and sigmoid diverticulitis without evidence of perforation or abscess - blood cultures pending - s/p IVF in ED - will be careful with IVF given history of CHF - s/p 1 dose of zosyn in ED - discontinued cefepime and flagyl --> started fidoxamicin for recurrent C diff as above - advance diet as tolerated - tolerating regular diet - improved (5) Acute kidney injury superimposed on CKD: Plan: - Cr 2.9 on admission with baseline around 2.3-2.5 - likely in the setting of ongoing diarrhea and decreaed po intake - s/p 1L IVF in the ED and continued on gentle IVF after that -creatinine is now at baseline, cont to monitor on Lasix. (6) Generalized weakness: Plan: - in the setting of sepsis with diverticulitis and decreased po intake - IVF as above - abx as above - encourage po intake - OOB to chair when able -per nurse she is independent despite reporting persistent weakness -Per PT she is cleared to return home when clinically improved. (7) Type 2 diabetes mellitus with hyperglycemia: Plan: - A1c 6.5% 03/2022 - reportedly on 70/30 NPH at home 75 units AM and 50 units PM - BG 171 on admission -Currently at inpatient goal. Continue basal bolus insulin as currently prescribed. (8) COVID: Plan: - still positive since 04/26/2022 - likely not related to COVID -Suspect cough is secondary to pulmonary edema, pending chest x-ray -Requiring 2 L/min oxygen supplementation (9) Hypertension: Plan: - Reduced dose of hydralazine given sepsis, will increase this from 75 3 times daily to 100 3 times daily consistent with her home dose We will add additional Lasix to see if this helps Suspect some element of secondary hypertension with excessive coughing today. Continue to monitor. Plan DVT ppx: heparin SC Full Code Disposition to home when clinically improved and oxygen needs are resolved. Constanza Overton DO [facility] Hospitalist Admission and Anticipated Discharge Date Admission Date: May 14, 2022 Subjective The patient is a 86 year old woman with pmh HFpEF (Ef 55-60%, GIDD in 2019), LBBB, PVD, HTN, DM on insulin, CKD stage 3 (baseline Cr 2.3), GERD, chronic anemia presented for 2 days of worsening diarrhea with fever and chills. She was found to have a recurrent episode of C diff colitis (last 05/2021). Broad spectrum abx were discontinued and she was started on fidaxomicin 200mg BID for 10 days. She feels better today with improvement in diarrhea and abdominal pain but still with diarrhea multiple times a day. tolerating regular diet well. She was recently admitted for generalized weakness and was found to have E. coli UTI and a COVID-19 infection. She had coughing at that time and was treated with antitussives. She was sent home on Tessalon Perles but reports that her cough is still present and the Tessalon Perles did not help much. She denies any fever and denies any abdominal pain today. Chest x-ray on 05/14 revealed some evidence of congestive changes. In the setting of acute sepsis she was given some IV fluids and her home Lasix was held. I am concerned that she may now have some increased fluid overload contributing to her cough. Chest x-ray was ordered and she agreed that she is not ready to go home today. She has allergies to codeine so we will order Robitussin for her cough as well. Review of systems also revealed persistent vertigo when she turns her face to the right side. Positive horizontal nystagmus towards the right side with extraocular motion. She reports feeling generally weak and states that her right face is sore with associated ear fullness. ENT exam was unrevealing including examination of tympanic membrane on the right. Nurse reports patient was ambulating independently with supervision today to and from the bathroom. Review of Systems Review of Systems: All systems reviewed negative except as indicated above. Physical Exam Physical Exam: CONSTITUTIONAL: obese, vitals as above, NAD EYES: EOMI bilaterally, +horizontal nystagmus toward the right ear when looking right, normal conjunctivae, no scleral icterus ENT: external ear and nose normal, oropharynx clear, no TM abnormality, +cerumen impaction on the left (unaffected ear) no maxillary or ethmoid sinus tenderness NECK: trachea midline, no lymphadenopathy RESPIRATORY: clear to auscultation bilaterally, no crackles, rales or wheezes, normal respiratory effort. Coughs frequently triggered by deep breaths. CARDIOVASCULAR: regular rate and rhythm, S1 and 2 heard without murmurs, gallops or rubs, no JVD, no peripheral edema CHEST: inspection of chest was normal GASTROINTESTINAL: soft, nontender, ND, no guarding MUSCULOSKELETAL: generalized weakness, she was unable to sit up in bed independently, head is normocephalic and atraumatic SKIN: warm and dry NEUROLOGIC: CN 2-12 grossly intact, no sensory deficit, normal cognition, normal speech, no tremor, no gross focal deficits. PSYCHIATRIC: alert cooperative and oriented to person, place and time. Results & Data Results & Data ([facility]) Vital Signs (Past 12 Hours) Vital Signs Temp Pulse Pulse Resp BP BP Pulse Ox 05/18/22 11:17 36.8 C 70 20 172/52 H 98 05/18/22 09:43 05/18/22 08:10 36.3 C L 68 20 175/78 H 95 05/18/22 07:05 62 05/18/22 03:23 36.3 C L 69 20 154/72 H 98 05/18/22 02:01 71 160/78 H 05/18/22 02:00 71 160/78 H 97 O2 Del Method O2 Flow Rate 05/18/22 11:17 Nasal Cannula 2 05/18/22 09:43 Nasal Cannula 2 05/18/22 08:10 Room Air 05/18/22 07:05 05/18/22 03:23 Nasal Cannula 2 05/18/22 02:01 05/18/22 02:00 Nasal Cannula 2 Laboratory Results BMP 05/18/22 08:05 Sodium 137 Potassium 4.3 Chloride 109 H Carbon Dioxide 23 BUN 58 H Creatinine 2.23 H D Glucose 141 H Calcium 9.6 Medications Administered Current Inpatient Medications Acetaminophen (Acetaminophen 325 Mg Tab) 650 mg PO Q6H PRN PRN Reason: Pain or Fever Stop: 06/16/22 18:01 Last Admin: 05/18/22 11:19 Dose: 650 mg Aspirin (Aspirin 81 Mg Ectab) 81 mg PO QAM [facility] Stop: 06/14/22 08:59 Last Admin: 05/18/22 07:39 Dose: 81 mg Calcitriol (Calcitriol 0.25 Mcg Capsule) 0.25 mcg PO QAM [facility] Stop: 06/14/22 08:59 Last Admin: 05/18/22 07:39 Dose: 0.25 mcg Carvedilol (Carvedilol 25 Mg Tab) 25 mg PO BID [facility] Stop: 06/13/22 20:59 Last Admin: 05/18/22 07:40 Dose: 25 mg Cyanocobalamin (Cyanocobalamin (B-12) 500 Mcg Tablet) 500 mcg PO QAM [facility] Stop: 06/14/22 08:59 Last Admin: 05/18/22 07:39 Dose: 500 mcg Dextrose (Dextrose 50% 50 Ml Syringe) 25 - 50 ml IV UD PRN; Protocol PRN Reason: Hypoglycemia Protocol Stop: 06/13/22 16:50 Famotidine (Famotidine 40 Mg Tablet) 40 mg PO QAM [facility] Stop: 06/14/22 08:59 Last Admin: 05/18/22 07:39 Dose: 40 mg Fidaxomicin (Fidaxomicin 200 Mg Tab) 200 mg PO BID [facility] Stop: 05/25/22 09:59 Last Admin: 05/18/22 07:50 Dose: 200 mg Glucagon (Glucagon For Inj 1 Mg Vial) 1 mg SQ UD PRN; Protocol PRN Reason: Hypoglycemia Protocol Stop: 06/13/22 16:50 Glucose (Glucose 40% Gel 15 Gm Tube) 15 - 30 gm PO UD PRN; Protocol PRN Reason: Hypoglycemia Protocol Stop: 06/13/22 16:50 Glucose (Glucose 10 Tab/Tube) 4 - 8 tab PO UD PRN; Protocol PRN Reason: Hypoglycemia Treatment Stop: 06/13/22 16:50 Heparin Sodium (Porcine) (Heparin Sod 5,000 Unit/0.5 Ml Vial) 5,000 units SQ Q8 [facility] Stop: 06/13/22 21:59 Last Admin: 05/18/22 11:11 Dose: 5,000 units Hydralazine HCl (Hydralazine Hcl 25 Mg Tab) 75 mg PO TID [facility] Stop: 06/16/22 13:59 Last Admin: 05/18/22 11:10 Dose: 75 mg Insulin Aspart (Insulin Aspart Per Unit) 0 units SC ACHS [facility] Stop: 06/13/22 17:59 Last Admin: 05/18/22 08:40 Dose: 12 units Insulin Glargine (Lantus Per Unit Charge) 18 units SQ QAM [facility] Stop: 06/17/22 08:59 Last Admin: 05/18/22 08:41 Dose: 18 units Isosorbide Dinitrate (Isosorbide Dinitrate 20 Mg Tab) 20 mg PO TID@0700,1200,1700 [facility] Stop: 06/14/22 06:59 Last Admin: 05/18/22 11:10 Dose: 20 mg Miscellaneous (Carbohydrates For Hypoglycemia ) 15 - 30 gm PO UD PRN PRN Reason: Hypoglycemia Protocol Stop: 06/13/22 16:50 Miscellaneous Information (Pharmacy Glycemic Mgmt Consult) 1 each N/A UD PRN PRN Reason: Consult Stop: 06/13/22 16:50 Pregabalin (Pregabalin 25 Mg Cap) 25 mg PO BID [facility] Stop: 06/13/22 20:59 Last Admin: 05/18/22 07:44 Dose: 25 mg Rosuvastatin Calcium (Rosuvastatin Calcium 10 Mg Tab) 10 mg PO HS [facility] Stop: 06/13/22 20:59 Last Admin: 05/17/22 21:02 Dose: 10 mg (1) Sepsis Severe sepsis shock status: without septic shock
--- NOTE | 2022-05-18 12:21 | Pharmacy Report ---
Pharmacy Glycemic Short Note 2 - Date of Service May 18, 2022 - Glycemic Short BSG Results (Last 24 hours): 05/17/22 05/17/22 05/18/22 16:36 20:40 07:50 Glucose POC Glucose 131 H 173 H 179 H 05/18/22 05/18/22 08:05 11:52 Glucose 141 H POC Glucose 162 H OUTPATIENT ANTIDIABETIC REGIMEN: * Humulin 75 units in AM, 40 units in PM - per notes, unclear when patient took last dose ASSESSMENT: 05/18/22 * Patient's BSGs yesterday were [phone] mg/dL. * BSGs today are 179-162 mg/dL. * Patient received 41 units of insulin yesterday (15 units of basal and 26 units of bolus). * Fasting trending up- increase basal by 20% to 18 units daily. * Tighten CR slightly as BSGs trend up after in-range reading. BACKGROUND * Patient admitted with sepsis, cdiff - started on antibiotics on arrival. Type 2 diabetic on large amount of insulin at home. Patient with cdiff/diarrhea and not eating yesterday, therefore basal insulin held * Fasting BSG 153 mg/dL - will see how patient eats and may add low dose at lunch time today. Patient known to our glycemic service from other admissions. Most recent admission 04/2021 patient receiving 15-20 units of Lantus and bsgs were stable. Likely will start with that if BSGs trending upward PLAN FOR INPATIENT GLYCEMIC CONTROL: * Hold outpatient oral diabetes medications * Basal insulin * Lantus 18 units daily * Bolus insulin * NovoLog per scale ACHS or Q6hrs while NPO * Goal Range: Low 110 mg/dL - High 140 mg/dL * Correction Factor: 25 mg/dL/unit * Nutritional / Prandial insulin per carb ratio of 1 unit per 6 grams CHO consumed
[2022-05-18] MEDS ORDERED: FUROSEMIDE 40 MG/4 ML VIAL IV ONE (12:32)
[2022-05-18] MEDS ORDERED: FUROSEMIDE 20 MG TAB PO SCH (12:45)
[2022-05-18] MEDS: hydrALAZINE TAB 50 MG TAB PO SCH ×2 (13:06→20:46)
--- NOTE | 2022-05-18 13:40 | XRay Report ---
XR chest 1V portable HISTORY: cough, evid of congestive failure on CXR COMPARISON: Chest 05/14/2022. FINDINGS: No pneumothorax. No pleural effusions. The heart remains enlarged. There is mild central pu lmonary vascular congestion without overt edema. A few bibasilar linear densities consistent with sub segmental atelectasis. No new focal lung consolidations identified. There are calcifications within t he aortic knob. IMPRESSION: No change in the cardiomegaly and mild pulmonary vascular congestion. ACT 112: Negative or not required by law. Electronically signed by: Catrachito Cuenca M.D. 05/18/2022 1:38 PM
[2022-05-18] MEDS: guaiFENesin SUGAR FREE 100 MG/5 ML UDC PO SCH ×2 (15:54→20:48)
[2022-05-18] MEDS ORDERED: ACETAMINOPHEN 500 MG TAB PO ONE (18:19)
[2022-05-18] MEDS: ROSUVASTATIN CALCIUM 10 MG TAB PO SCH (20:46)
[2022-05-18] MEDS ORDERED: PROMETHAZINE HCL 12.5 MG in SODIUM CHLORIDE 0.9% 50 ML IV PRN (22:41)
[2022-05-19] MEDS: guaiFENesin SUGAR FREE 100 MG/5 ML UDC PO SCH ×4 (01:43→21:58)
[2022-05-19] MEDS: HEPARIN SOD 5,000 UNIT/0.5 ML VIAL SQ SCH ×3 (05:57→22:01)
[2022-05-19] MEDS: ACETAMINOPHEN 325 MG TAB PO PRN ×2 (06:02→21:57)
[2022-05-19 06:17] LABS: Hematocrit (blood only) 25.5 % (34.1-44.9); Hemoglobin 8.3 g/dl (12.0-16.0); Mean Corpuscular Hemoglobin 29.9 pg (25.0-34.0); Mean Corpuscular Hgb Conc 32.5 g/dL (32.0-36.0); Mean Corpuscular Volume 91.7 fL (80.0-100.0); Mean Platelet Volume 9.8 fL (9.4-12.3); Platelet Count 262 K/uL (130-400); RDW Coefficient of Variation 14.6 % (11.5-14.5); RDW Standard Deviation 48.5 fL (36.4-46.3); Red Blood Count 2.78 M/uL (3.93-5.22); White Blood Count 6.38 K/ul (4.8-10.8)
[2022-05-19] MEDS: ISOSORBIDE DINITRATE 20 MG TAB PO SCH ×3 (06:46→17:37)
[2022-05-19 06:48] LABS: BUN Creatinine Ratio 26.1 (10-20); Calcium 9.4 mg/dl (8.5-10.1); Creatinine Clr Calc Pharmacy 23.1 ml/min; Est GFR (African American) 24.3 ml/min
[2022-05-19] MEDS: CYANOCOBALAMIN (B-12) 500 MCG TABLET PO SCH (08:05)
[2022-05-19] MEDS: hydrALAZINE TAB 50 MG TAB PO SCH ×3 (08:05→21:59)
[2022-05-19] MEDS: FAMOTIDINE 40 MG TABLET PO SCH (08:05)
[2022-05-19] MEDS: CALCITRIOL 0.25 MCG CAPSULE PO SCH (08:05)
[2022-05-19] MEDS: PREGABALIN 25 MG CAP PO SCH ×2 (08:06→21:57)
[2022-05-19] MEDS: ASPIRIN 81 MG ECTAB PO SCH (08:06)
[2022-05-19] MEDS: FIDAXOMICIN 200 MG TAB PO SCH ×2 (08:06→21:58)
[2022-05-19] MEDS: FUROSEMIDE 40 MG/4 ML VIAL IV SCH (08:06)
[2022-05-19] MEDS: carvediloL 25 MG TAB PO SCH ×2 (08:06→21:58)
[2022-05-19] MEDS: INSULIN ASPART PER UNIT SC SCH ×4 (08:10→21:56)
[2022-05-19] MEDS: LANTUS PER UNIT CHARGE SQ SCH (08:11)
--- NOTE | 2022-05-19 13:27 | Hospitalist Progress Note ---
Date of Service May 19, 2022 Assessment & Plan (1) C. difficile colitis: Plan: - positive C diff toxin - recurrent C diff - last episode 05/2021 - treat with fidoxamicin 200mg BID for 10 days - startd 05/15/2022 -diarrhea resolved -Leukocytosis has resolved. Continue fidaxomicin for remainder of course. (2) Sepsis: Plan: - presented with tachycardia to 97, WBC 17, diarrhea and evidence of divertic ulitis on CT-AP - IVF resuscitation - telemetry monitoring - blood cultures - C diff was positive - discontinued broad spectrum abx - on fidoxamicin for recurrent C diff - resolved (3) Acute heart failure with preserved ejection fraction: Plan: In setting of sepsis patient was home Lasix was held and she was given IV fluids. unfortunately developed fluid overload and was on oxygen supplementation which is improved. Cough is improved on diuretic therapy. Last evaluation of ejection fraction was in October 2019 revealing ejection fraction 55 to 60%. With grade 1 diastolic dysfunction noted. (4) Diverticulitis large intestine w/o perforation or abscess w/o bleeding: Plan: - has history of diverticulitis as well as C diff colitis - stool studies sent by ED - no blood in stools, per patient - CT AP with colonic diverticulosis and sigmoid diverticulitis without evidence of perforation or abscess - blood cultures pending - s/p IVF in ED - will be careful with IVF given history of CHF - s/p 1 dose of zosyn in ED - discontinued cefepime and flagyl --> started fidoxamicin for recurrent C diff as above - advance diet as tolerated - tolerating regular diet - improved (5) Acute kidney injury superimposed on CKD: Plan: - Cr 2.9 on admission with baseline around 2.3-2.5 - likely in the setting of ongoing diarrhea and decreaed po intake - s/p 1L IVF in the ED and continued on gentle IVF after that -creatinine is now at baseline, cont to monitor on Lasix. (6) Generalized weakness: Plan: - in the setting of sepsis with diverticulitis and decreased po intake - IVF as above - abx as above - encourage po intake - OOB to chair when able -per nurse she is independent despite reporting persistent weakness -Per PT she is cleared to return home when clinically improved. (7) Type 2 diabetes mellitus with hyperglycemia: Plan: - A1c 6.5% 03/2022 - reportedly on 70/30 NPH at home 75 units AM and 50 units PM - BG 171 on admission -Currently at inpatient goal. Continue basal bolus insulin as currently prescribed. (8) COVID: Plan: - still positive since 04/26/2022 - likely not related to COVID -Suspect cough is secondary to pulmonary edema, pending chest x-ray -Requiring 2 L/min oxygen supplementation (9) Hypertension: Plan: - Reduced dose of hydralazine given sepsis, will increase this from 75 3 times daily to 100 3 times daily consistent with her home dose We will add additional Lasix to see if this helps Suspect some element of secondary hypertension with excessive coughing today. Continue to monitor. Plan DVT ppx: heparin SC Full Code Disposition to home when clinically improved and oxygen needs are resolved, likely tomorrow. DO [facility] Hospitalist Admission and Anticipated Discharge Date Admission Date: May 14, 2022 Subjective The patient is a 86 year old woman with pmh HFpEF (Ef 55-60%, GIDD in 2019), LBBB, PVD, HTN, DM on insulin, CKD stage 3 (baseline Cr 2.3), GERD, chronic anemia presented for 2 days of worsening diarrhea with fever and chills. She was found to have a recurrent episode of C diff colitis (last 05/2021). Broad spectrum abx were discontinued and she was started on fidaxomicin 200mg BID for 10 days. no abdominal pain or diarrhea reported still feels weak and not ready to return home cough has improved afebrile, and feeling better Review of Systems Review of Systems: All systems reviewed negative except as indicated above. Physical Exam Physical Exam: CONSTITUTIONAL: obese, vitals as above, NAD EYES: normal conjunctivae, no scleral icterus ENT: external ear and nose normal, MMM NECK: trachea midline RESPIRATORY: clear to auscultation bilaterally, no crackles, rales or wheezes, normal respiratory effort. CARDIOVASCULAR: regular rate and rhythm, S1 and 2 heard without murmurs, gallops or rubs, no JVD CHEST: inspection of chest was normal GASTROINTESTINAL: soft, nontender, ND, no guarding MUSCULOSKELETAL: generalized weakness, she was unable to sit up in bed independently, head is normocephalic and atraumatic SKIN: warm and dry NEUROLOGIC: CN 2-12 grossly intact, no sensory deficit, normal cognition, normal speech, no tremor, no gross focal deficits. PSYCHIATRIC: alert cooperative and oriented to person, place and time. Results & Data Results & Data ([facility]) Vital Signs (Past 12 Hours) Vital Signs Temp Pulse Resp BP Pulse Ox O2 Del Method O2 Flow Rate 05/19/22 11:14 36.4 C L 63 20 169/69 H 95 05/19/22 08:00 Room Air 05/19/22 07:32 36.4 C L 63 18 133/71 98 Nasal Cannula 2 05/19/22 03:43 37 C 67 18 141/61 H 95 Nasal Cannula 2 Laboratory Results Short CBC 05/19/22 Range/Units 05:38 WBC 6.38 (4.8-10.8) K/ul Hgb 8.3 L (12.0-16.0) g/dl Hct 25.5 L (34.1-44.9) % Plt Count 262 (130-400) K/uL BMP 05/19/22 05:38 Sodium 137 Potassium 4.0 Chloride 106 Carbon Dioxide 23 BUN 54 H Creatinine 2.07 H Glucose 115 H Calcium 9.4 Medications Administered Current Inpatient Medications Acetaminophen (Acetaminophen 325 Mg Tab) 650 mg PO Q6H PRN PRN Reason: Pain or Fever Stop: 06/16/22 18:01 Last Admin: 05/19/22 06:02 Dose: 650 mg Aspirin (Aspirin 81 Mg Ectab) [facility] [place] Stop: 06/14/22 08:59 Last Admin: 05/19/22 08:06 Dose: 81 mg Calcitriol (Calcitriol 0.25 Mcg Capsule) 0.25 mcg [facility] [place] Stop: 06/14/22 08:59 Last Admin: 05/19/22 08:05 Dose: 0.25 mcg Carvedilol (Carvedilol 25 Mg Tab) 25 mg PO BID [facility] Stop: 06/13/22 20:59 Last Admin: 05/19/22 08:06 Dose: 25 mg Cyanocobalamin (Cyanocobalamin (B-12) 500 Mcg Tablet) 500 mcg PO QAM [facility] Stop: 06/14/22 08:59 Last Admin: 05/19/22 08:05 Dose: 500 mcg Dextrose (Dextrose 50% 50 Ml Syringe) 25 - 50 ml IV UD PRN; Protocol PRN Reason: Hypoglycemia Protocol Stop: 06/13/22 16:50 Famotidine (Famotidine 40 Mg Tablet) 40 mg PO QAM [facility] Stop: 06/14/22 08:59 Last Admin: 05/19/22 08:05 Dose: 40 mg Fidaxomicin (Fidaxomicin 200 Mg Tab) 200 mg PO BID [facility] Stop: 05/25/22 09:59 Last Admin: 05/19/22 08:06 Dose: 200 mg Furosemide (Furosemide 40 Mg/4 Ml Vial) 40 mg IV DAILY [facility] Stop: 06/18/22 08:59 Last Admin: 05/19/22 08:06 Dose: 40 mg Glucagon (Glucagon For Inj 1 Mg Vial) 1 mg SQ UD PRN; Protocol PRN Reason: Hypoglycemia Protocol Stop: 06/13/22 16:50 Glucose (Glucose 40% Gel 15 Gm Tube) 15 - 30 gm PO UD PRN; Protocol PRN Reason: Hypoglycemia Protocol Stop: 06/13/22 16:50 Glucose (Glucose 10 Tab/Tube) 4 - 8 tab PO UD PRN; Protocol PRN Reason: Hypoglycemia Treatment Stop: 06/13/22 16:50 Guaifenesin (Guaifenesin Sugar Free 100 Mg/5 Ml Udc) 100 mg PO Q6H [facility] Stop: 05/20/22 14:29 Last Admin: 05/19/22 08:06 Dose: 100 mg Heparin Sodium (Porcine) (Heparin Sod 5,000 Unit/0.5 Ml Vial) 5,000 units SQ Q8 [facility] Stop: 06/13/22 21:59 Last Admin: 05/19/22 05:57 Dose: 5,000 units Hydralazine HCl (Hydralazine Tab 50 Mg Tab) 100 mg PO TID [facility] Stop: 06/17/22 13:59 Last Admin: 05/19/22 08:05 Dose: 100 mg Promethazine HCl 12.5 mg/ (Sodium Chloride) 50.5 mls @ 202 mls/hr IV Q6H PRN PRN Reason: Nausea And Vomiting Stop: 06/17/22 22:40 Insulin Aspart (Insulin Aspart Per Unit) 0 units SC ACHS [facility] Stop: 06/13/22 17:59 Last Admin: 05/19/22 12:11 Dose: 7 units Insulin Glargine (Lantus Per Unit Charge) 18 units SQ QAM [facility] Stop: 06/17/22 08:59 Last Admin: 05/19/22 08:11 Dose: 18 units Isosorbide Dinitrate (Isosorbide Dinitrate 20 Mg Tab) 20 mg PO TID@0700,1200,1700 [facility] Stop: 06/14/22 06:59 Last Admin: 05/19/22 12:19 Dose: 20 mg Miscellaneous (Carbohydrates For Hypoglycemia ) 15 - 30 gm PO UD PRN PRN Reason: Hypoglycemia Protocol Stop: 06/13/22 16:50 Miscellaneous Information (Pharmacy Glycemic Mgmt Consult) 1 each N/A UD PRN PRN Reason: Consult Stop: 06/13/22 16:50 Pregabalin (Pregabalin 25 Mg Cap) 25 mg PO BID [facility] Stop: 06/13/22 20:59 Last Admin: 05/19/22 08:06 Dose: 25 mg Rosuvastatin Calcium (Rosuvastatin Calcium 10 Mg Tab) 10 mg PO HS [facility] Stop: 06/13/22 20:59 Last Admin: 05/18/22 20:46 Dose: 10 mg (1) Sepsis Severe sepsis shock status: without septic shock
[2022-05-19] MEDS: ROSUVASTATIN CALCIUM 10 MG TAB PO SCH (21:59)
[2022-05-20] MEDS: guaiFENesin SUGAR FREE 100 MG/5 ML UDC PO SCH ×2 (02:36→08:53)
[2022-05-20 06:19] LABS: Hematocrit (blood only) 27.4 % (34.1-44.9); Hemoglobin 8.8 g/dl (12.0-16.0); Mean Corpuscular Hemoglobin 29.6 pg (25.0-34.0); Mean Corpuscular Hgb Conc 32.1 g/dL (32.0-36.0); Mean Corpuscular Volume 92.3 fL (80.0-100.0); Mean Platelet Volume 9.6 fL (9.4-12.3); Platelet Count 267 K/uL (130-400); RDW Coefficient of Variation 14.6 % (11.5-14.5); RDW Standard Deviation 48.9 fL (36.4-46.3); Red Blood Count 2.97 M/uL (3.93-5.22); White Blood Count 8.08 K/ul (4.8-10.8)
[2022-05-20] MEDS: HEPARIN SOD 5,000 UNIT/0.5 ML VIAL SQ SCH ×2 (06:22→14:39)
[2022-05-20 06:59] LABS: BUN Creatinine Ratio 22.8 (10-20); Calcium 9.4 mg/dl (8.5-10.1); Est GFR (African American) 19.8 ml/min
[2022-05-20] MEDS: CYANOCOBALAMIN (B-12) 500 MCG TABLET PO SCH (08:52)
[2022-05-20] MEDS: hydrALAZINE TAB 50 MG TAB PO SCH ×2 (08:52→14:40)
[2022-05-20] MEDS: CALCITRIOL 0.25 MCG CAPSULE PO SCH (08:52)
[2022-05-20] MEDS: FAMOTIDINE 40 MG TABLET PO SCH (08:52)
[2022-05-20] MEDS: carvediloL 25 MG TAB PO SCH (08:53)
[2022-05-20] MEDS: ASPIRIN 81 MG ECTAB PO SCH (08:53)
[2022-05-20] MEDS: ISOSORBIDE DINITRATE 20 MG TAB PO SCH ×2 (08:53→12:57)
[2022-05-20] MEDS ORDERED: LANTUS PER UNIT CHARGE SQ SCH (09:00)
[2022-05-20] MEDS: INSULIN ASPART PER UNIT SC SCH ×2 (09:14→12:30)
[2022-05-20] MEDS: FIDAXOMICIN 200 MG TAB PO SCH (09:20)
[2022-05-20] MEDS: PREGABALIN 25 MG CAP PO SCH (09:20)
[2022-05-20] MEDS: FUROSEMIDE 40 MG/4 ML VIAL IV SCH (09:20)
[2022-05-20] MEDS: ACETAMINOPHEN 325 MG TAB PO PRN (09:21)
--- NOTE | 2022-05-20 13:48 | Pharmacy Report ---
Pharmacy Glycemic Short Note 2 - Date of Service May 20, 2022 - Glycemic Short BSG Results (Last 24 hours): 05/19/22 05/19/22 05/20/22 16:43 20:15 05:45 Glucose 156 H POC Glucose 132 H 163 H 05/20/22 05/20/22 07:44 11:32 Glucose POC Glucose 162 H 191 H OUTPATIENT ANTIDIABETIC REGIMEN: * Humulin 75 units in AM, 40 units in PM - per notes, unclear when patient took last dose ASSESSMENT: 05/20/22 * Patients BSGs yesterday were [phone] mg/dL * Fasting this AM 162 mg/dL, will increase basal 20% today to 22 units * Continue current Novolog parameters 05/18/22 * Patient's BSGs yesterday were [phone] mg/dL. * BSGs today are 179-162 mg/dL. * Patient received 41 units of insulin yesterday (15 units of basal and 26 units of bolus). * Fasting trending up- increase basal by 20% to 18 units daily. * Tighten CR slightly as BSGs trend up after in-range reading. BACKGROUND * Patient admitted with sepsis, cdiff - started on antibiotics on arrival. Type 2 diabetic on large amount of insulin at home. Patient with cdiff/diarrhea and not eating yesterday, therefore basal insulin held * Fasting BSG 153 mg/dL - will see how patient eats and may add low dose at lunch time today. Patient known to our glycemic service from other admissions. Most recent admission 04/2021 patient receiving 15-20 units of Lantus and bsgs were stable. Likely will start with that if BSGs trending upward PLAN FOR INPATIENT GLYCEMIC CONTROL: * Hold outpatient oral diabetes medications * Basal insulin * Lantus 22 units daily * Bolus insulin * NovoLog per scale ACHS or Q6hrs while NPO * Goal Range: Low 110 mg/dL - High 140 mg/dL * Correction Factor: 25 mg/dL/unit * Nutritional / Prandial insulin per carb ratio of 1 unit per 6 grams CHO consumed
--- NOTE | 2022-05-20 14:21 | Discharge Summary ---
Date of Service May 20, 2022 Admission HPI Per Admitting Provider The patient is a 86 year old woman with pmh HFpEF (Ef 55-60%, GIDD in 2020), LBBB, PVD, HTN, DM on insulin, CKD stage 3 (baseline Cr 2.3), GERD, chronic anemia presented for 2 days of worsening diarrhea with fever and chills. She reports getting COVID around 04/26/2022 and had a cough, some sore throat but otherwise was not too bad. Then 2 days ago, she says she started feeling bad again with aches and pain as well as multiple bouts of diarrhea with semi formed stools. Yesterday it progressed to loose diarrhea with >10 episodes in 24 hours. She reports RLQ abdominal pain as well as nausea but no vomiting. She denies chest pain except when coughing, denies shortness of breath, dysuria, LOC, headache. She has not been able to tolerate PO intake for the past 2 days due to nausea as well as decreased appetite. She lives with her son in law and daughter who are away during the day and she is able to care for herself mostly when they are gone. She is able to walk at least 1 block without chest pain or shortness o f breath. She denies history of smoking. In the ED, vitals were significant for HR 90s, BP 150-160s/60s, satting 95% on RA. Labs were significant for WBC 17, hgb 9.5 (baseline around 8), Cr 2.9 (bas marcos 2.3-2.5). CT scan sowed acute sigmoid diverticulitis with evidence of moderate diverticulosis in the colon. She was given IVF and Zosyn and admitted to medicine. Principal Diagnosis C. difficile colitis Sepsis Acute heart failure with preserved ejection fraction Diverticulitis of large intestine without perforation or abscess without bleedin g Acute kidney injury superimposed on CKD Generalized weakness Type 2 diabetes mellitus COVID-positive status Discharge Exam CONSTITUTIONAL: obese, vitals as above, NAD EYES: normal conjunctivae, no scleral icterus ENT: external ear and nose normal, MMM NECK: trachea midline RESPIRATORY: clear to auscultation bilaterally, no crackles, rales or wheezes, normal respiratory effort. CARDIOVASCULAR: regular rate and rhythm, S1 and 2 heard without murmurs, gallops or rubs, no JVD CHEST: inspection of chest was normal GASTROINTESTINAL: soft, nontender, ND, no guarding MUSCULOSKELETAL: generalized weakness, she was unable to sit up in bed independently, head is normocephalic and atraumatic SKIN: warm and dry NEUROLOGIC: CN 2-12 grossly intact, no sensory deficit, normal cognition, normal speech, no tremor, no gross focal deficits. PSYCHIATRIC: alert cooperative and oriented to person, place and time. Discharge Data Allergies Allergy/AdvReac Type Severity Reaction Status Date / Time No Known Allergies Allergy Verified 05/14/22 17:36 Consultations 05/14/22 16:25 ED Decision to Admit Stat Ordered Studies 05/14/22 13:38 CT abd pelvis wo con Stat Hospital Course (1) C. difficile colitis: (2) Sepsis: (3) Acute heart failure with preserved ejection fraction: (4) Diverticulitis large intestine w/o perforation or abscess w/o bleeding: (5) Acute kidney injury superimposed on CKD: (6) Generalized weakness: (7) Type 2 diabetes mellitus with hyperglycemia: (8) COVID: (9) Hypertension: Plan The patient is a 86 year old woman with pmh HFpEF (Ef 55-60%, GIDD in 2019), LBBB, PVD, HTN, DM on insulin, CKD stage 3 (baseline Cr 2.3), GERD, chronic anemia presented for 2 days of worsening diarrhea with fever and chills. She was found to have a recurrent episode of C diff colitis (last 05/2021). Broad spectrum abx were discontinued and she was started on fidaxomicin 200mg BID for 10 days. Unfortunately she developed a cough with pulmonary edema likely secondary to IV fluid resuscitation in setting of sepsis. On admission her Lasix was also held. She was put back on intravenous Lasix 40 mg daily and cough improved by day of discharge. Although she temporarily needed oxygen supplementation she underwent a two-step test on day of discharge revealing no difficulty with ambulating and no desaturation that would qualify her for oxygen supplementation going home. She reports her cough was resolved. We will resume her home dose of Lasix daily and follow-up BMP is recommended given the underlying chronic kidney disease. She was counseled on the contagious nature of C. difficile colitis and the importance of fidaxomicin for her second recurrence. Our nurse called pharmacies around [facility] to ensure fidaxomicin was present for her to picker and packer, and this was available only at [facility] pharmacy on [address]. She was informed of this and verbalized that she would be able to pick this up today to continue her course. She was discharged in stable condition with close primary care follow-up recommended Total Time Total Time Spent Total Time Spent (In Minutes): 60 Discharge Plan Discharge Items Patient Disposition: Home - Self-Care Reason For Visit: DIARRHEA Discharge Diagnosis: C. difficile colitis Sepsis Acute heart failure with preserved ejection fraction Diverticulitis of large intestine without perforation or abscess without bleeding Acute kidney injury superimposed on CKD Generalized weakness Type 2 diabetes mellitus COVID-positive status Condition on Discharge: Good Activity: Resume your previous activity Non-emergency contact: Primary Care Provider Call non-emergency contact if: you have any medication questions, your symptoms worsen, your pain is not controlled, your pain is worsening, your pain is unusual for you, your pain is concerning for you and you have a fever Follow-up/Referrals: Fox Ramirez MD [Primary Care Provider] - (Date & Time 05/27/2022 2:00 PM Provider Fox Ramirez MD Department [facility] ) Diet: Carb Consistent or DM2 and Heart Healthy Addtl Attending Provider Instructions: Please take all medications as instructed on discharge list below. Please ensure you clean your hands with soap and water after toileting and prior to any food preparation as c-difficile toxin is very contagious. Please sanitiz e bathrooms including toilet seas and door handles for the same reason. Your risk of spreading the infection goes down when your diarrhea has resolved. It is recommended that you followup with your primary care provider within one week of hospital discharge to ensure you are still doing well and tolerating your new medications. As a result of the additional Lasix given to you in the hospital, it is also recommended for a basic metabolic panel to be checked at this time. It was a pleasure taking care of you! Please call if you have any questions or problems. You can reach a [facility] hospitalist on duty at [facility] 24 hours a day by calling [phone]. Take care of yourself. Constanza Overton, [facility] Pending Studies at Discharge: No Stand-Alone Forms: My [facility] Medications and DC Order Prescriptions: New Dificid 200 mg Tablet 200 mg PO BID Qty: 10 0RF Continued ondansetron 4 mg tablet,disintegrating 4 mg PO Q6H PRN (Reason: nausea and vomiting) Qty: 14 0RF lidocaine [Salonpas (lidocaine)] 4 % Adhesive Patch,Medicated 1 patch TOPICAL DAILY PRN (Reason: Pain) aspirin 81 mg Tablet,Delayed Release (Dr/Ec) 81 mg PO QAM isosorbide dinitrate 20 mg tablet 20 mg PO TID rosuvastatin 10 mg tablet 10 mg PO HS famotidine [Pepcid] 20 mg Tablet 20 mg PO QPM@1700 hydralazine 100 mg tablet 100 mg PO TID carvedilol 25 mg tablet 25 mg PO BIDM acetaminophen [Tylenol Extra Strength] 500 mg Tablet 1,000 mg PO [facility]HS simethicone 80 mg Tablet,Chewable 80 mg PO DIRECTED PRN (Reason: GAS DISCOMFORT) allopurinol 100 mg tablet 200 mg PO QPM calcitriol 0.25 mcg capsule 0.25 mcg PO QAM pregabalin [Lyrica] 25 mg capsule 25 mg PO [facility] Rx Instructions: Take twice a day ketoconazole 2 % shampoo 1 applic TOPICAL WK polyethylene glycol 3350 17 gram powder in packet 17 g PO BID PRN (Reason: Constipation) furosemide 20 mg tablet 20 mg PO DAILY Humulin 70/30 U-100 Insulin 100 unit/mL (70-30) suspension See Rx Instructions .ROUTE .COMPLEX Rx Instructions: 75 unit subcutaneously in the am and 40 units in the pm diclofenac sodium 1 % gel 4 g TOP QID PRN (Reason: Pain) cyanocobalamin (vitamin B-12) 500 mcg Tablet 500 mcg PO QAM Qty: 30 0RF Saccharomyces boulardii [Florastor] 250 mg capsule 250 mg PO QAM Discontinued benzonatate 100 mg Capsule 200 mg PO TID Qty: 30 0RF Discharge Orders: Discharge Order (Routine); Ordered 05/20/22 Ordered By: Constanza Mckeon/Other Patient Handouts: Managing Type 2 Diabetes Admission Data Admit Date/Time: 05/14/22 16:57 Attending Provider: Constanza Overton Admit Provider: Paul De La Vega Primary Care Provider: Fox Ramirez Other Providers: Paul De La Vega
--- NOTE | 2022-06-02 08:33 | Coding Query ---
CODING QUERY To promote full compliance with coding requirements relating to patient care, provider participation is requested in all cases of outpatient coder uncertainty. Please assist us with the question(s) below: Coding Question(s): Sepsis is documented. Please specify below, in your clinical opinion, the most likely cause(s) of the Sepsis. ( ) C. Difficile Colitis and Diverticulitis (x ) C. Difficile Colitis ( ) Diverticulitis ( ) Covid-19 ( ) Other: Please Specify ( ) Unknown most likely cause(s) Physician's Response(s): Thank you Cheryl Coreas Principal Diagnosis: "that condition established after study, to be chiefly responsible for occasioning the admission of the patient to the hospital for care." Co-Existing Principal Diagnosis: "when two or more diagnoses equally meet the criteria for principal diagnosis as determined by the circumstances of admission, diagnostic work up, and/or therapy provided, and the Alphabetic Index, Tabular List, or another coding guideline does not provide sequencing direction, any one of the diagnoses may be sequenced first." "When the physician has documented what appears to be a current diagnosis in the body of the record, but has not included the diagnosis in the final diagnostic statement, the physician should be asked whether the diagnosis should be added." (Source Coding [facility] 2 QTR90. p3-4) JORDY
== END 2022-05-20 15:39 | disposition home or self-care (01) | DRG 871 ==
LOC: ED 13:01 → SUATTDRO 16:57 → 2N 16:57
DX: I50.33 Acute on chronic diastolic (congestive) heart failure; K57.32 Diverticulitis of large intestine without perforation or abscess without bleeding; Z83.3 Family history of diabetes mellitus; N17.9 Acute kidney failure, unspecified; N18.30 Chronic kidney disease, stage 3 unspecified; E11.65 Type 2 diabetes mellitus with hyperglycemia; E78.5 Hyperlipidemia, unspecified; Z68.34 Body mass index [BMI] 34.0-34.9, adult; Z79.899 Other long term (current) drug therapy; E11.22 Type 2 diabetes mellitus with diabetic chronic kidney disease; R53.1 Weakness; U07.1 COVID-19; Z79.4 Long term (current) use of insulin; E66.01 Morbid (severe) obesity due to excess calories; T50.3X5A Adverse effect of electrolytic, caloric and water-balance agents, initial encounter; Z79.82 Long term (current) use of aspirin; R42 Dizziness and giddiness; D64.9 Anemia, unspecified; A41.89 Other specified sepsis; A04.71 Enterocolitis due to Clostridium difficile, recurrent; I13.0 Hypertensive heart and chronic kidney disease with heart failure and stage 1 through stage 4 chronic kidney disease, or unspecified chronic kidney disease

== ENCOUNTER 2022-06-16 09:44 | Inpatient (IN) ==
[2022-06-16 10:59] LABS: Basophils # (auto) 0.05 K/uL (0-0.2); Basophils % (auto) 0.5 %; Eosinophils # (auto) 0.26 K/uL (0-0.50); Eosinophils % (auto) 2.5 %; Hematocrit (blood only) 30.2 % (34.1-44.9); Hemoglobin 9.9 g/dl (12.0-16.0); Immature Granulocytes # (auto) 0.06 K/uL (0.00-0.02); Immature Granulocytes % (auto) 0.6 %; Lymphocytes # (auto) 0.98 K/uL (1.2-3.4); Lymphocytes % (auto) 9.4 %; Mean Corpuscular Hemoglobin 30.1 pg (25.0-34.0); Mean Corpuscular Hgb Conc 32.8 g/dL (32.0-36.0); Mean Corpuscular Volume 91.8 fL (80.0-100.0); Mean Platelet Volume 9.9 fL (9.4-12.3); Monocytes # (auto) 0.92 K/uL (0.24-0.82); Monocytes % (auto) 8.8 %; Neutrophils # (auto) 8.16 K/uL (1.4-6.5); Neutrophils % (auto) 78.2 %; Platelet Count 283 K/uL (130-400); RDW Standard Deviation 50.6 fL (36.4-46.3); Red Blood Count 3.29 M/uL (3.93-5.22); White Blood Count 10.43 K/ul (4.8-10.8)
[2022-06-16 11:07] LABS: Appearance Urine Clear (Clear); Bacteria Urine Automated Negative (Negative); Bilirubin Urine Negative (Negative); Blood Urine Negative (Negative); Cast Urine Automated 0 /lpf (0-5); Color Urine Yellow; Glucose Urine UA Negative (Negative); Ketones Urine Negative (Negative); Leukocyte Esterase Urine Negative (Negative); Nitrite Urine Negative (Negative); Protein Urine 1+ (Negative); RBC Urine Automated 0-4 /hpf (0-4); Specific Gravity Urine 1.008 (1.000-1.030); Urobilinogen Urine Negative (Negative)
--- NOTE | 2022-06-16 11:08 | Emergency Department Note ---
Impression & Plan Constipation, Weakness, RLL pneumonia, Abdominal pain ED Provider Note NAME: BELKIS LERMA AGE: 86 SEX: F : 1935 ARRIVES VIA: Walk-In INFORMANT: Patient, ED PROVIDER(S): Manolo Solis MD Chief Complaint: Weakness, abdominal pain, increasing urinary frequency HPI: Patient presents with the above symptoms. The patient unfortunate is been in and out of hospital recently due to concern for COVID and C. difficile. The patient did recently complete a course for her C. difficile several weeks ago. Patient denies any chest pains or shortness of breath but does have right-sided abdominal pain which has been constant ongoing for about 2 days. The patient has had associated increasing urinary frequency and difficulty with having a bowel movement. The patient states that she has not passing flatus. No recent falls or trauma. Patient denies any blood in the urine or stool. ROS: See HPI for pertinent positives and negatives. A total of 10 systems were reviewed and otherwise negative. Past medical history: See below Surgical history: See below Social history: See below Physical Exam: GENERAL: NAD, wearing a mask, non-toxic. Wearing glasses. EYE EXAM: Normal conjunctiva. PERRL, no anisocoria and EOM's grossly intact w/o pain. NECK: Supple, no nuchal rigidity, no adenopathy, non-tender. No signs of meningismus. FROM of the neck with good chin to chest and neck extension. No stridor. LUNGS: Clear to auscultation. Normal chest wall mechanics. HEART: NSR, no MRG. ABDOMEN: Abdomen soft, mild diffuse discomfort most prominent in the right abdomen, normo-active bowel sounds, no masses, no rebound or guarding. BACK: No CVA TTP. SKIN: No rashes and no bruising. UPPER EXTREMITIES: Upper extremities are grossly normal. LOWER EXTREMITIES: Grossly normal, no edema. NEURO EXAM: A&O x3, cranial nerves II-XII grossly intact, normal speech, moves all 4 extremities. Differential diagnoses: Appendicitis, testicular torsion, infections, diverticulitis, UTI, obstruction, mesenteric ischemia, aortic pathology, inflammatory bowel disease, renal colic, PUD, pancreatitis, biliary pathology, h ernia, volvulus, constipation, as well as other pathologies. Course: Patient was seen and evaluated the bedside. Full history physical exam was performed. Imaging Studies: See Below Cardiac monitoring: An order was placed for continuous cardiac monitoring. The monitor shows a rate of 67 with sinus rhythm. MDM: Patient presents due to concern for abdominal pain weakness and difficulty with bowel movements. Blood work is obtained along with CT abdomen pelvis given her reproducible pain on exam. The patient was ordered IV fluids and Zofran. The patient has a normal white count with anemia hemoglobin 9.9 which appears to be relatively chronic and stable. The patient's platelet count is unremarkable. Patient does have mild hypercalcemia 10.4 kidney function with a BUN/creatinine of 68 and 2.4. Creatinine is at virtual baseline. The patient's BUN is typically elevated. The patient did receive IV fluids that she does have prerenal azotemia. Patient's urinalysis does not show evidence of obvious infection and is COVID-negative. The patient CT abdomen pelvis shows moderate a mount of stool within the rectum but no bowel obstruction. The patient does have a right lower lobe airspace opacity which is likely infectious in nature. The patient does have possible renal cyst. Infiltration additional bladder wall was seen but the patient's UA does not appear to be grossly infected. Given the patient's right lower lobe pneumonia the patient was ordered Zosyn. I did speak the on-call hospitalist Meri Rodriguez PA-C and the patient was admitted to the medicine service by Dr. Wilburn. Past Med/Surg History Medical History CHF (congestive heart failure) follows with Kaushal Nieto PA-C Chronic back pain Chronic kidney disease (CKD), stage IV (severe) follows with Dr. Childress Diabetes mellitus, type 2 Diverticulitis large intestine hx Hearing deficit History of kidney stones HTN (hypertension) Hyperlipidemia Kidney cysts LEFT SIDE>BEING MONITORED BY UROLOGY [facility] [place] Morbid obesity with BMI of 40.0-44.9, adult Nocturnal hypoxemia On home oxygen therapy 2L N/C at only Osteoarthritis Surgical History H/O: hysterectomy History of arthroscopy of left knee History of bilateral tubal ligation History of cardiac cath ?2009--@ [facility] [place]--no stents History of colonoscopy History of cystoscopy History of dilatation and curettage History of esophagogastroduodenoscopy (EGD) History of tooth extraction all teeth Hx of appendectomy Hx of cholecystectomy Nausea and vomiting after administration of anesthetic agent Family History Sister Family history of diabetes mellitus Sister Family history of diabetes mellitus Brother Family history of diabetes mellitus Family history of esophageal cancer Brother Family history of esophageal cancer Father Lung cancer Other No family history of adverse response to anesthesia No significant family history Social History Smoking Status: Never smoker Second Hand Exposure: No; Hx Alcohol Use: No Hx Substance Use: No Preferred Language: Irish [employer] Required: No Beliefs That Will Affect Care: None marital status: / Current Living Situation: Family Current Living Situation Comment: Son and daughter in law Feels Safe at Home: Yes Assistive Devices: Cane, Denture - Upper, Denture - Lower, Glasses and Walker Allergies Allergies Allergy/AdvReac Type Severity Reaction Status Date / Time No Known Allergies Allergy Verified 05/14/22 17:36 Home Meds Home Medications Medication Instructions Recorded Confirmed aspirin 81 mg tablet,delayed 81 mg PO QAM 12/30/18 06/16/22 release isosorbide dinitrate 20 mg tablet 20 mg PO TID 12/30/18 06/16/22 rosuvastatin 10 mg tablet 10 mg PO HS 12/30/18 06/16/22 famotidine 20 mg tablet (Pepcid) 20 mg PO QPM@1700 11/18/19 06/16/22 lidocaine 4 % topical patch 1 patch topical DAILY PRN Pain 06/23/20 06/16/22 (Salonpas (lidocaine)) insulin human U-100 NPH-regulr See Rx Instructions .Route .COMPLEX 03/16/21 06/16/22 70-30 mix 100 unit/mL subcutaneous susp (Humulin 70/30 U-100 Insulin) diclofenac sodium 1 % topical gel 4 g topical QID PRN Pain 03/17/21 06/16/22 carvedilol 25 mg tablet 25 mg PO BIDM 06/13/21 06/16/22 hydralazine 100 mg tablet 100 mg PO TID 06/13/21 06/16/22 Saccharomyces boulardii 250 mg 250 mg PO QAM 08/26/21 06/16/22 capsule (Florastor) acetaminophen 500 mg tablet 1,000 mg PO AMHS 04/26/22 06/16/22 (Tylenol Extra Strength) allopurinol 100 mg tablet 200 mg PO QPM 04/26/22 06/16/22 calcitriol 0.25 mcg capsule 0.25 mcg PO QAM 04/26/22 06/16/22 simethicone 80 mg chewable tablet 80 mg PO DIRECTED PRN GAS 04/26/22 06/16/22 DISCOMFORT ketoconazole 2 % shampoo 1 applic topical WK 05/14/22 06/16/22 polyethylene glycol 3350 17 gram 17 g PO BID PRN Constipation 05/14/22 06/16/22 oral powder packet Previous Rx's Medication Instructions Recorded cyanocobalamin (vitamin B-12) 500 500 mcg PO QAM #30 tabs 03/27/21 mcg tablet ondansetron 4 mg disintegrating 4 mg PO Q6H PRN nausea and 11/25/21 tablet vomiting #14 tabs furosemide 20 mg tablet 20 mg PO DAILY #90 tabs 05/23/22 Results & Data (ED) Vital Signs Vital Signs - 24 hr 06/16/22 09:51 06/16/22 11:54 06/16/22 11:54 Temperature 36.8 C Temperature Source Temporal Artery Scan Pulse Rate 65 Pulse Rate [Apical] 60 Pulse Rhythm [Apical] Regular Pulse Strength [Apical] Normal Respiratory Rate 18 18 Respiratory Effort / Characteristics Non-Labored Respiratory Depth Normal Blood Pressure 163/69 H Blood Pressure [Left Arm] 182/60 H Blood Pressure Mean 100 Blood Pressure Mean [Left Arm] 100 Pulse Oximetry 98 97 97 Oxygen Delivery Method Room Air Room Air Sepsis Recent Fever Within 48 Hours No Sepsis New/Unexplained Change in Mental Status No Sepsis Action Taken by Nursing No Action Required Home Medications Current Medication List: was personally reviewed by me Laboratory Data Attestation: I reviewed the patient's lab results. Result diagrams: 06/16/22 10:43 06/16/22 10:43 Lab Results 06/16/22 06/16/22 06/16/22 Range/Units 10:43 10:43 10:43 WBC 10.43 (4.8-10.8) K/ul RBC 3.29 L (3.93-5.22) M/uL Hgb 9.9 L (12.0-16.0) g/dl Hct 30.2 L (34.1-44.9) % MCV 91.8 (80.0-100.0) fL MCH 30.1 (25.0-34.0) pg MCHC 32.8 (32.0-36.0) g/dL RDW Std Deviation 50.6 H (36.4-46.3) fL RDW Coeff of Noemy 15.0 H (11.5-14.5) % Plt Count 283 (130-400) K/uL MPV 9.9 (9.4-12.3) fL Immature Gran % (Auto) 0.6 % Neut % (Auto) 78.2 % Lymph % (Auto) 9.4 % [facility] % (Auto) 8.8 % Eos % (Auto) 2.5 % Baso % (Auto) 0.5 % Neut # (Auto) 8.16 H (1.4-6.5) K/uL Lymph # (Auto) 0.98 L (1.2-3.4) K/uL [facility] # (Auto) 0.92 H (0.24-0.82) K/uL Eos # (Auto) 0.26 (0-0.50) K/uL Baso # (Auto) 0.05 (0-0.2) K/uL Immature Gran # (Auto) 0.06 H (0.00-0.02) K/uL Sodium 139 (136-145) mmol/L Potassium 3.9 (3.5-5.1) mmol/L Chloride 102 (98-107) mmol/L Carbon Dioxide 28 (21-32) mmol/L Anion Gap 9 (3-11) BUN 68 H (6-23) mg/dl Creatinine 2.45 H (0.6-1.2) mg/dl Est Cr Clr Drug Dosing Not Reportable Est GFR ( Amer) 19.9 ml/min Est GFR (Non-Af Amer) 17.1 ml/min BUN/Creatinine Ratio 27.8 H (10-20) Glucose 72 (70-99(Fasting)) mg/dl POC Glucose (70-99) mg/dl Calcium 10.4 H (8.5-10.1) mg/dl Total Bilirubin 1.1 H (0.2-1.0) mg/dl AST 18 (13-39) U/L ALT 12 (7-52) U/L Alkaline Phosphatase 53 (34-104) U/L Troponin I High Sens 9.8 (0-14) pg/ml Total Protein 6.5 (6.0-8.3) gm/dl Albumin 4.1 (3.4-5.0) gm/dl Globulin 2.4 L (2.5-4.0) gm/dl Albumin/Globulin Ratio 1.7 (0.9-2) Lipase 36 (11-82) U/L SARS-CoV-2, RNA, NAAT (NEGATIVE) 06/16/22 06/16/22 Range/Units 12:00 13:37 WBC (4.8-10.8) K/ul RBC (3.93-5.22) M/uL Hgb (12.0-16.0) g/dl Hct (34.1-44.9) % MCV (80.0-100.0) fL MCH (25.0-34.0) pg MCHC (32.0-36.0) g/dL RDW Std Deviation (36.4-46.3) fL RDW Coeff of Noemy (11.5-14.5) % Plt Count (130-400) K/uL MPV (9.4-12.3) fL Immature Gran % (Auto) % Neut % (Auto) % Lymph % (Auto) % [facility] % (Auto) % Eos % (Auto) % Baso % (Auto) % Neut # (Auto) (1.4-6.5) K/uL Lymph # (Auto) (1.2-3.4) K/uL [facility] # (Auto) (0.24-0.82) K/uL Eos # (Auto) (0-0.50) K/uL Baso # (Auto) (0-0.2) K/uL Immature Gran # (Auto) (0.00-0.02) K/uL Sodium (136-145) mmol/L Potassium (3.5-5.1) mmol/L Chloride (98-107) mmol/L Carbon Dioxide (21-32) mmol/L Anion Gap (3-11) BUN (6-23) mg/dl Creatinine (0.6-1.2) mg/dl Est Cr Clr Drug Dosing Est GFR ( Amer) ml/min Est GFR (Non-Af Amer) ml/min BUN/Creatinine Ratio (10-20) Glucose (70-99(Fasting)) mg/dl POC Glucose 52 L* (70-99) mg/dl Calcium (8.5-10.1) mg/dl Total Bilirubin (0.2-1.0) mg/dl AST (13-39) U/L ALT (7-52) U/L Alkaline Phosphatase (34-104) U/L Troponin I High Sens (0-14) pg/ml Total Protein (6.0-8.3) gm/dl Albumin (3.4-5.0) gm/dl Globulin (2.5-4.0) gm/dl Albumin/Globulin Ratio (0.9-2) Lipase (11-82) U/L SARS-CoV-2, RNA, NAAT NEGATIVE (NEGATIVE) Administered Medications Discontinued Medications Bisacodyl (Bisacodyl 10 Mg Supp) 10 mg AL NOW STA Stop: 06/16/22 14:38 Last Admin: 06/16/22 15:42 Dose: 10 mg Documented By: KANWAL Dextrose (Dextrose 50% 50 Ml Syringe) 50 ml IV NOW ONE Stop: 06/16/22 13:44 Last Admin: 06/16/22 13:54 Dose: 50 ml Documented By: LUCA Sodium Chloride (Nss) 500 mls @ 999 mls/hr IV .Q31M STA Stop: 06/16/22 12:09 Last Infusion: 06/16/22 12:30 Dose: 0 mls/hr Documented By: Admin: 06/16/22 11:49 Dose: 999 mls/hr Documented By: LUCA Piperacillin Sod/Tazobactam Sod (Zosyn) 4.5 gm in 120 mls @ 240 mls/hr IV NOW ONE Stop: 06/16/22 14:17 Last Infusion: 06/16/22 14:31 Dose: 0 mls/hr Documented By: Admin: 06/16/22 13:55 Dose: 240 mls/hr Documented By: LUCA Ondansetron HCl (Ondansetron Inj 2 Mg/Ml 2 Ml Vial) 4 mg IV NOW STA Stop: 06/16/22 11:40 Last Admin: 06/16/22 11:48 Dose: 4 mg Documented By: Imaging Data Radiologist's Impression: Abdomen/Pelvis CT 06/16/22 11:39 CT OF THE ABDOMEN AND PELVIS WITHOUT CONTRAST CLINICAL HISTORY: mild diffuse pain but worse R side; no BM x 2 days COMPARISON STUDY: CT of the abdomen and pelvis May 14, 2022. TECHNIQUE: Axial images of the abdomen and pelvis were obtained without IV contrast. Images were reviewed in the axial, sagittal, and coronal planes. Automated exposure control was utilized for the study. A dose lowering technique was utilized adhering to the principles of ALARA. FINDINGS: Moderate cardiomegaly. Nodular and groundglass opacities within the lateral basal segment of the right lower lobe have developed since CT of May 14, 2022. No pneumatosis, free air or portal venous gas is present. Evaluation of the abdomen and pelvis is suboptimal on this unenhanced exam. There is no biliary ductal dilatation status post cholecystectomy. 1.5 cm suspected lateral segment hepatic cyst is noted. This is unchanged. A fat-containing 2.1 cm left adrenal nodule is unchanged. This is benign and represents a myelolipoma. Spleen, right adrenal gland and pancreas are unremarkable. Marked bilateral renal atrophy is again noted. A round 5.2 cm lesion within the left renal sinus measures above water attenuation. This may result in moderate dilatation of the upper pole calyces. Multiple additional bilateral renal lesions are noted, including a 1.8 cm lesion arising from the posterior cortex of the lower pole of the right kidney. This also measures above water attenuation. Suspected hyperdense cyst within the upper pole of the left kidney is present. There is no evidence for a bowel obstruction. Extensive sigmoid diverticulosis is noted. There has been near complete resolution of pericolonic inflammation since CT of May 14, 2022. Moderate amount of stool within the rectum is present. Infiltration adjacent to the bladder wall is noted. No acute fracture or suspicious lesion within visualized skeletal structures is present. IMPRESSION: 1. Moderate amount of stool within the rectum. No evidence for a bowel obstruction. 2. Near complete resolution of inflammation adjacent to the sigmoid colon shown on CT of May 14, 2022. 3. Right lower lobe airspace opacity which has developed since prior CT. This r epresents an infectious process. 4. 5.2 cm intermediate attenuation left renal sinus lesion which may result in moderate dilatation of the upper pole calyces. This could reflect a hyperdense cyst although is indeterminate. However, nonemergent renal ultrasound is recommended for confirmation. Several additional bilateral renal lesions measure above water attenuation. These may be difficult to assess by sonography given smaller size. 5. Infiltration adjacent to the bladder wall which could be correlated with urinalysis to exclude cystitis. ACT 112: Negative or not required by law. Electronically signed by: Chai Morales M.D. 06/16/2022 1:00 PM Discharge Plan Visit Data Chief Complaint: Urinary Symptoms Stated Complaint: UTI,CONSTIPATION ED Provider: Manolo Solis Discharge Problem: Constipation, Weakness, RLL pneumonia, Abdominal pain Discharge Instructions Interventions: ED Discharge Assessment Last Done: 06/16/22 17:43
[2022-06-16 11:39] LABS: Alanine Aminotransferase 12 U/L (7-52); Albumin Globulin Ratio 1.7 (0.9-2); Albumin Level 4.1 gm/dl (3.4-5.0); Alkaline Phosphatase 53 U/L (34-104); Anion Gap 9 (3-11); Aspartate Aminotransferase 18 U/L (13-39); BUN Creatinine Ratio 27.8 (10-20); Bilirubin,Total 1.1 mg/dl (0.2-1.0); Blood Urea Nitrogen 68 mg/dl (6-23); Calcium 10.4 mg/dl (8.5-10.1); Carbon Dioxide 28 mmol/L (21-32); Chloride 102 mmol/L (98-107); Est GFR (African American) 19.9 ml/min; Est GFR (Non-African American) 17.1 ml/min; Globulin 2.4 gm/dl (2.5-4.0); Glucose 72 mg/dl (70-99(Fasting)); Potassium 3.9 mmol/L (3.5-5.1); Sodium 139 mmol/L (136-145); Total Protein 6.5 gm/dl (6.0-8.3)
[2022-06-16] MEDS ORDERED: ONDANSETRON INJ 2 MG/ML 2 ML VIAL IV STA (11:39)
[2022-06-16] MEDS ORDERED: SODIUM CHLORIDE 0.9% 500 ML IV STA (11:39)
[2022-06-16 12:27] LABS: Troponin I High Sensitivity 9.8 pg/ml (0-14)
--- NOTE | 2022-06-16 13:02 | CT Scan Report ---
CT OF THE ABDOMEN AND PELVIS WITHOUT CONTRAST CLINICAL HISTORY: mild diffuse pain but worse R side; no BM x 2 days COMPARISON STUDY: CT of the abdomen and pelvis May 14, 2022. TECHNIQUE: Axial images of the abdomen and pelvis were obtained without IV contrast. Images were revi ewed in the axial, sagittal, and coronal planes. Automated exposure control was utilized for the riri dy. A dose lowering technique was utilized adhering to the principles of ALARA. FINDINGS: Moderate cardiomegaly. Nodular and groundglass opacities within the lateral basal segment o f the right lower lobe have developed since CT of May 14, 2022. No pneumatosis, free air or portal v enous gas is present. Evaluation of the abdomen and pelvis is suboptimal on this unenhanced exam. The re is no biliary ductal dilatation status post cholecystectomy. 1.5 cm suspected lateral segment hepa tic cyst is noted. This is unchanged. A fat-containing 2.1 cm left adrenal nodule is unchanged. This is benign and represents a myelolipoma. Spleen, right adrenal gland and pancreas are unremarkable. Ma rked bilateral renal atrophy is again noted. A round 5.2 cm lesion within the left renal sinus measur es above water attenuation. This may result in moderate dilatation of the upper pole calyces. Multipl e additional bilateral renal lesions are noted, including a 1.8 cm lesion arising from the posterior cortex of the lower pole of the right kidney. This also measures above water attenuation. Suspected h yperdense cyst within the upper pole of the left kidney is present. There is no evidence for a bowel obstruction. Extensive sigmoid diverticulosis is noted. There has been near complete resolution of pe ricolonic inflammation since CT of May 14, 2022. Moderate amount of stool within the rectum is prese nt. Infiltration adjacent to the bladder wall is noted. No acute fracture or suspicious lesion within visualized skeletal structures is present. IMPRESSION: 1. Moderate amount of stool within the rectum. No evidence for a bowel obstruction. 2. Near complete resolution of inflammation adjacent to the sigmoid colon shown on CT of May 14 2. 3. Right lower lobe airspace opacity which has developed since prior CT. This represents an infectiou s process. 4. 5.2 cm intermediate attenuation left renal sinus lesion which may result in moderate dilatation of the upper pole calyces. This could reflect a hyperdense cyst although is indeterminate. However, non emergent renal ultrasound is recommended for confirmation. Several additional bilateral renal lesions measure above water attenuation. These may be difficult to assess by sonography given smaller size. 5. Infiltration adjacent to the bladder wall which could be correlated with urinalysis to exclude cys titis. ACT 112: Negative or not required by law. Electronically signed by: Chai Morales M.D. 06/16/2022 1:00 PM
[2022-06-16] MEDS ORDERED: DEXTROSE 50% 50 ML SYRINGE IV ONE (13:43)
[2022-06-16] MEDS ORDERED: PIPERACILLIN/TAZOBACTAM 4.5 GM/120 ML BAG IV ONE (13:48)
[2022-06-16] MEDS ORDERED: bisacodyL 10 MG SUPP PR STA ×2 (14:37→19:08)
--- NOTE | 2022-06-16 14:39 | History & Physical Report ---
Date of Service June 16, 2022 Assessment & Plan (1) RLL pneumonia: Plan: - Admit to med surg with tele - CT abdomen pelvis showing right lower lobe opacities spacious for pneumonia, if this is post-COVID sequela, Crackles on exam and RLL, otherwise clear throughout - Sputum culture, mucinex, duonebs QID and Q2H prn - Not requiring any O2 sats at 97% on room air, no history of requiring O2 at baseline - COVID-negative - WBC at time of admission = 10.43, neutrophils 8.16 - Ordered blood culture, procalcitonin and lactic acid now - Afebrile now but sweats overnight - possibly due to hypoglycemia, monitor - Allow diet after bedside swallow eval, consider formal speech therapy consult, aspiration precautions - Continue antibiotic therapy with zosyn IV and probiotic with hx of c diff - if develops diarrhea low suspicion for c diff recurrence (2) Generalized weakness: Plan: - Likely secondary to above - PT/OT consults - Poor po intake in the past 2 days, encourage diet if can tolerate such, will order fluids and antiemetics, hold lasix for now, resume per day team - UA does not appear to be infected but she has hx of uti, follow culture (3) DM (diabetes mellitus): (4) Hypoglycemia: Plan: - Last A1C= 6.6 on 05/15/22 - ISS with accuchecks denisse, - Was taking Lantus 55 U QPM and 50 U QAM as outpatient - will reduce lantus to weight based dosing --> 17 U BID - Hypoglycemia upon presentation to the ER due to having poor po intake and taking insulin at home, allow HH/DM diet - Pt c/o dizziness and sweats possibly related to hypoglycemia? PT/OT consults and consider Harriet maneuvers as pt required this for vertigo during last admission. (5) HTN (hypertension): Plan: - Cont BP medications, hold lasix - Daily weight have been monitored at home, pt has list with her at bedside. Weighs 210 lbs today which is close to her dry weight, appears to be down slightly compared to the trend with 214-215 several days ago. (6) Anemia: Plan: - Hgb/hct appears to be around her abseine of 9.9/30.2 (7) Constipation: Plan: - Will continue miralax daily, give Dulcolax suppository now - Encourage po intake and ambulation DVT ppx: - teds, scds, heparin subq CODE: Full code Dispo: From home, likely to remain in the hospital x 1-2 days History of Present Illness Chief Complaint: Urinary complaints, weakness, nausea Primary Care Provider: Fox Ramirez MD This is a 86 yo F with HFpEF (Ef 55-60%, GIDD in 2019), LBBB, PVD, HTN, DM on insulin, CKD stage 3 (baseline Cr 2.3), GERD, chronic anemiawho was recently in the hospital last month for c. diff colitis, sepsis, MISTI on CKD, and COVID-19 positive. She was discharged to home after that and lives with her son and daughter in law. Presents today with 2 to 3 days of illness which she describes as urinary incontinence, frequency, weakness, nausea, cough and dizziness, right upper quadrant pain, constipated x 2 days with abdominal distention. During her last hospital stay when she was treated for C. difficile she completed 7 more days upon discharge of [facility] as this was her second recurrence. Has been having some right upper quadrant pain as well as her last bowel movement was 2 days ago, feels distended and reports that she has been trialing MiraLAX as well as bran cereal to help her move her bowels however has not been working. She had a poor appetite yesterday and barely ate anything due to nausea. Today it appears on imaging that she has new opacities in the right lower lobe which were seen on a CTA of the abdomen and pelvis concerning for pneumonia. She is no longer COVID-19 positive, not hypoxic, and is satting at 95% on room air. She reports having cough, worsening over the past few days, as well as having some right-sided inner ear fullness. She was recently in to see ENT last with Brian. Patient also stopped taking her Lyrica approximately 3 days ago because she felt that it caused fullness in her head and was worsening her ability to hear as well as causing her voice to be raspy. No longer does she feel she has the symptoms since stopping the medication. Pt has records of her daily weights and bps at bedside. Of note she was found be hypoglycemic with a blood glucose of 52 upon presentation to the ER. She was administered IV dextrose. Last night she reports having sweating around 11:30 PM when she woke up and states her glucose was 73 at that time. She notes difficulty controlling her glucose since being discharged from the hospital about 1 month ago. Her regimen of Lantus continues to change, and most recently has been taking 55 units at night, 50 units in the morning per the diabetic nurse. She took all of her morning medications as directed today. Allergies Allergy/AdvReac Type Severity Reaction Status Date / Time No Known Allergies Allergy Verified 05/14/22 17:36 Home Medications Medication Instructions Recorded Confirmed Type aspirin 81 mg tablet,delayed 81 mg PO QAM 12/30/18 06/16/22 History release isosorbide dinitrate 20 mg tablet 20 mg PO TID 12/30/18 06/16/22 History rosuvastatin 10 mg tablet 10 mg PO HS 12/30/18 06/16/22 History famotidine 20 mg tablet (Pepcid) 20 mg PO QPM@1700 11/18/19 06/16/22 History lidocaine 4 % topical patch 1 patch topical DAILY PRN Pain 06/23/20 06/16/22 History (Salonpas (lidocaine)) insulin human U-100 NPH-regulr See Rx Instructions .Route .COMPLEX 03/16/21 06/16/22 History 70-30 mix 100 unit/mL subcutaneous susp (Humulin 70/30 U-100 Insulin) diclofenac sodium 1 % topical gel 4 g topical QID PRN Pain 03/17/21 06/16/22 History cyanocobalamin (vitamin B-12) 500 500 mcg PO QAM #30 tabs 03/27/21 06/16/22 Rx mcg tablet carvedilol 25 mg tablet 25 mg PO BIDM 06/13/21 06/16/22 History hydralazine 100 mg tablet 100 mg PO TID 06/13/21 06/16/22 History Saccharomyces boulardii 250 mg 250 mg PO QAM 08/26/21 06/16/22 History capsule (Florastor) ondansetron 4 mg disintegrating 4 mg PO Q6H PRN nausea and 11/25/21 06/16/22 Rx tablet vomiting #14 tabs acetaminophen 500 mg tablet 1,000 mg PO AMHS 04/26/22 06/16/22 History (Tylenol Extra Strength) allopurinol 100 mg tablet 200 mg PO QPM 04/26/22 06/16/22 History calcitriol 0.25 mcg capsule 0.25 mcg PO QAM 04/26/22 06/16/22 History simethicone 80 mg chewable tablet 80 mg PO DIRECTED PRN GAS 04/26/22 06/16/22 History DISCOMFORT ketoconazole 2 % shampoo 1 applic topical WK 05/14/22 06/16/22 History polyethylene glycol 3350 17 gram 17 g PO BID PRN Constipation 05/14/22 06/16/22 History oral powder packet furosemide 20 mg tablet 20 mg PO DAILY #90 tabs 05/23/22 06/16/22 Rx Past Med/Surg History Medical History CHF (congestive heart failure) follows with Kaushal Nieto PA-C Chronic back pain Chronic kidney disease (CKD), stage IV (severe) follows with Dr. Childress Diabetes mellitus, type 2 Diverticulitis large intestine hx Hearing deficit History of kidney stones HTN (hypertension) Hyperlipidemia Kidney cysts LEFT SIDE>BEING MONITORED BY UROLOGY [facility] Morbid obesity with BMI of 40.0-44.9, adult Nocturnal hypoxemia On home oxygen therapy 2L N/C at HS only Osteoarthritis Surgical History H/O: hysterectomy History of arthroscopy of left knee History of bilateral tubal ligation History of cardiac cath ?2009[place]@ [facility] [place] History of colonoscopy History of cystoscopy History of dilatation and curettage History of esophagogastroduodenoscopy (EGD) History of tooth extraction all teeth Hx of appendectomy Hx of cholecystectomy Nausea and vomiting after administration of anesthetic agent Family History Sister Family history of diabetes mellitus Sister Family history of diabetes mellitus Brother Family history of diabetes mellitus Family history of esophageal cancer Brother Family history of esophageal cancer Father Lung cancer Other No family history of adverse response to anesthesia No significant family history Social History Smoking Status: Never smoker Second Hand Exposure: No; Hx Alcohol Use: No Hx Substance Use: No Preferred Language: Guyanese Communication Ability: Effective Motor Vehicle 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 Required: No Beliefs That Will Affect Care: None marital status: / Current Living Situation: Family Current Living Situation Comment: With Son and Daughter in-law How many Children do You have: 2 Other Information That Helps Us Care for You: No Feels Safe at Home: Yes Safety Concerns: Feels Safe At This Time Assistive Devices: Walker Assistive Devices Comment: Glassess and Dentures Review of Systems Review of Systems: Constitutional: No fever, + sweats as per HPI, no chills, + dizziness with looking to the right Eyes: No diplopia, no worsening or blurred vision ENT: as per HPI with recent hearing loss, currently normal hearing, no trouble swallowing Respiratory: No cough, sputum, dyspnea at rest or on exertion Cardiovascular: No chest pain, tightness or palpitations Abdomen: As per HPI including RUQ pain, nausea, poor appetie and constipation, last BM 2 days ago, no vomiting or diarrhea. Musculoskeletal: No joint pain, calf pain, swelling Neurologic: + Generalized weakness, numbness/tingling, or balance problems Psychiatric: No anxiety or depression Skin: No rash or itch Physical Exam Physical Exam: General: awake, alert, no apparent distress, Obese with BMI of 36.8 Head: Normocephalic, atraumatic ENT: PERRL, EOMI, no pharyngeal exudate, mucous membranes moist Chest: on room air o2 sats 95% on RA, + crackles at RLL, otherwise clear without adventitious breath sounds Cardiac: Regular rate and rhythm, + Systolic ejection murmur, no JVD, normal peripheral pulses, good capillary refill Abdominal: NABS x 4 quadrants, soft, +distended, tender to palpation in RUQ and LLQ, no rebound or guarding Extremities: Normal inspection, no peripheral edema or erythema, calfs nontender to palpation Psych: slightly depressed mood and anxious affect Neuro: AAO x 3, strength intact bilaterally and rated 5/5, no motor deficits, speech is clear, no peripheral sensory deficits Results & Data Results & Data ([facility]) Vital Signs (Past 12 Hours) Vital Signs Temp Pulse Pulse Resp BP BP Pulse Ox 06/16/22 11:54 97 06/16/22 11:54 60 18 182/60 H 97 06/16/22 09:51 36.8 C 65 18 163/69 H 98 O2 Del Method 06/16/22 11:54 Room Air 06/16/22 11:54 06/16/22 09:51 Room Air Laboratory Results 06/16/22 06/16/22 06/16/22 Unknown 13:37 12:00 WBC RBC Hgb Hct MCV MCH MCHC RDW Std Deviation RDW Coeff of Noemy Plt Count MPV Immature Gran % (Auto) Neut % (Auto) Lymph % (Auto) Sutter % (Auto) Eos % (Auto) Baso % (Auto) Neut # (Auto) Lymph # (Auto) Sutter # (Auto) Eos # (Auto) Baso # (Auto) Immature Gran # (Auto) Sodium Potassium Chloride Carbon Dioxide Anion Gap BUN Creatinine Est Cr Clr Drug Dosing Est GFR ( Amer) Est GFR (Non-Af Amer) BUN/Creatinine Ratio Glucose POC Glucose 52 L* Calcium Total Bilirubin AST ALT Alkaline Phosphatase Troponin I High Sens Total Protein Albumin Globulin Albumin/Globulin Ratio Lipase Urine Color Yellow Urine Appearance Clear Urine pH 6.0 Ur Specific [place] 1.008 Urine Protein 1+ H Urine Glucose (UA) Negative Urine Ketones Negative Urine Blood Negative Urine Nitrite Negative Urine Bilirubin Negative Urine Urobilinogen Negative Ur Leukocyte Esterase Negative Urine WBC (Auto) 1-5 Urine RBC (Auto) 0-4 U Hyaline Cast (Auto) 0 U Epithel Cells (Auto) 10-20 H Urine Bacteria (Auto) Negative SARS-CoV-2, RNA, NAAT NEGATIVE 06/16/22 06/16/22 06/16/22 10:43 10:43 10:43 WBC 10.43 RBC 3.29 L Hgb 9.9 L Hct 30.2 L MCV 91.8 MCH 30.1 MCHC 32.8 RDW Std Deviation 50.6 H RDW Coeff of Noemy 15.0 H Plt Count 283 MPV 9.9 Immature Gran % (Auto) 0.6 Neut % (Auto) 78.2 Lymph % (Auto) 9.4 Sutter % (Auto) 8.8 Eos % (Auto) 2.5 Baso % (Auto) 0.5 Neut # (Auto) 8.16 H Lymph # (Auto) 0.98 L Sutter # (Auto) 0.92 H Eos # (Auto) 0.26 Baso # (Auto) 0.05 Immature Gran # (Auto) 0.06 H Sodium 139 Potassium 3.9 Chloride 102 Carbon Dioxide 28 Anion Gap 9 BUN 68 H Creatinine 2.45 H Est Cr Clr Drug Dosing Not Reportable Est GFR ( Amer) 19.9 Est GFR (Non-Af Amer) 17.1 BUN/Creatinine Ratio 27.8 H Glucose 72 POC Glucose Calcium 10.4 H Total Bilirubin 1.1 H AST 18 ALT 12 Alkaline Phosphatase 53 Troponin I High Sens 9.8 Total Protein 6.5 Albumin 4.1 Globulin 2.4 L Albumin/Globulin Ratio 1.7 Lipase 36 Urine Color Urine Appearance Urine pH Ur Specific [place] Urine Protein Urine Glucose (UA) Urine Ketones Urine Blood Urine Nitrite Urine Bilirubin Urine Urobilinogen Ur Leukocyte Esterase Urine WBC (Auto) Urine RBC (Auto) U Hyaline Cast (Auto) U Epithel Cells (Auto) Urine Bacteria (Auto) SARS-CoV-2, RNA, NAAT Diagnostic Findings Abdomen/Pelvis CT 06/16/22 11:39 CT OF THE ABDOMEN AND PELVIS WITHOUT CONTRAST CLINICAL HISTORY: mild diffuse pain but worse R side; no BM x 2 days COMPARISON STUDY: CT of the abdomen and pelvis May 14, 2022. TECHNIQUE: Axial images of the abdomen and pelvis were obtained without IV contrast. Images were reviewed in the axial, sagittal, and coronal planes. Automated exposure control was utilized for the study. A dose lowering technique was utilized adhering to the principles of ALARA. FINDINGS: Moderate cardiomegaly. Nodular and groundglass opacities within the lateral basal segment of the right lower lobe have developed since CT of May 14, 2022. No pneumatosis, free air or portal venous gas is present. Evaluation of the abdomen and pelvis is suboptimal on this unenhanced exam. There is no lia iary ductal dilatation status post cholecystectomy. 1.5 cm suspected lateral segment hepatic cyst is noted. This is unchanged. A fat-containing 2.1 cm left adrenal nodule is unchanged. This is benign and represents a myelolipoma. Spleen, right adrenal gland and pancreas are unremarkable. Marked bilateral renal atrophy is again noted. A round 5.2 cm lesion within the left renal sinus measures above water attenuation. This may result in moderate dilatation of the upper pole calyces. Multiple additional bilateral renal lesions are noted, including a 1.8 cm lesion arising from the posterior cortex of the lower pole of the right kidney. This also measures above water attenuation. Suspected hyperdense cyst within the upper pole of the left kidney is present. There is no evidence for a bowel obstruction. Extensive sigmoid diverticulosis is noted. There has been near complete resolution of pericolonic inflammation since CT of May 14, 2022. Moderate amount of stool within the rectum is present. Infiltration adjacent to the bladder wall is noted. No acute fracture or suspicious lesion within visualized skeletal structures is present. IMPRESSION: 1. Moderate amount of stool within the rectum. No evidence for a bowel obstruction. 2. Near complete resolution of inflammation adjacent to the sigmoid colon shown on CT of May 14, 2022. 3. Right lower lobe airspace opacity which has developed since prior CT. This represents an infectious process. 4. 5.2 cm intermediate attenuation left renal sinus lesion which may result in moderate dilatation of the upper pole calyces. This could reflect a hyperdense cyst although is indeterminate. However, nonemergent renal ultrasound is recommended for confirmation. Several additional bilateral renal lesions measure above water attenuation. These may be difficult to assess by sonography given smaller size. 5. Infiltration adjacent to the bladder wall which could be correlated with urinalysis to exclude cystitis. ACT 112: Negative or not required by law. Electronically signed by: Chai Morales M.D. 06/16/2022 1:00 PM Code Status & VTE Plan Code Status Full code - discussed with the patient and her son at bedside Supervising Physician Co-Signing Physician Notes delayed entry date of service noted above Attending Addendum: care coordinated with SHILPA Demarco please refer to her notes for full details, I agree with her notes patient seen and examined, records reviewed by myself as well on exam, patient seen resting in bed, not in distress reports cough, non productive, sweats at home no other symptoms Jonathon Wilburn MD
--- NOTE | 2022-06-16 16:50 | XRay Report ---
SINGLE VIEW CHEST CLINICAL HISTORY: Right lower lobe pneumonia FINDINGS: An AP, portable, upright chest radiograph is compared to study dated 05/18/2022. Correlation is made with abdominal CT performed the same day 06/16/2022. The heart is enlarged noting atheroscler otic calcification of the thoracic aorta. The pulmonary vasculature is noncongested. Mild bibasilar o pacities are noted. No large pleural effusion or pneumothorax is seen. The skeletal structures are os teopenic. The bony thorax is grossly intact. IMPRESSION: 1. Cardiomegaly without radiographic evidence of congestive failure. 2. Bibasilar dependent airspace opacities are typical for atelectasis. The right lower lobe pneumonit is seen by CT is not well-visualized by x-ray. ACT 112: Negative or not required by law. Electronically signed by: Marco Morocho M.D. 06/16/2022 4:49 PM
[2022-06-16] MEDS ORDERED: DICLOFENAC SOD 1% GEL 100 GM TUBE EXT PRN (17:42)
[2022-06-16] MEDS ORDERED: bisacodyL 10 MG SUPP PR PRN (17:42)
[2022-06-16] MEDS ORDERED: PHARMACY GLYCEMIC MGMT CONSULT PRN (17:42)
[2022-06-16] MEDS ORDERED: GLUCAGON FOR INJ 1 MG VIAL SQ PRN (17:42)
[2022-06-16] MEDS ORDERED: GLUCOSE 40% GEL 15 GM TUBE PO PRN (17:42)
[2022-06-16] MEDS ORDERED: SIMETHICONE 80 MG CHEW PO PRN (17:42)
[2022-06-16] MEDS ORDERED: GLUCOSE 10 TAB/TUBE PO PRN (17:42)
[2022-06-16] MEDS ORDERED: DEXTROSE 50% 50 ML SYRINGE IV PRN (17:42)
[2022-06-16] MEDS ORDERED: SODIUM CHLORIDE 0.9% 1000ML 1,000 ML IV SCH (17:42)
[2022-06-16] MEDS ORDERED: CARBOHYDRATES FOR HYPOGLYCEMIA PO PRN (17:42)
[2022-06-16] MEDS ORDERED: MAGNESIUM HYDROXIDE SUSP 30 ML UDC PO ONE (19:08)
[2022-06-16] MEDS: INSULIN ASPART PER UNIT SC SCH ×2 (19:52→22:01)
[2022-06-16] MEDS: carvediloL 25 MG TAB PO SCH (20:06)
[2022-06-16] MEDS: ROSUVASTATIN CALCIUM 10 MG TAB PO SCH (20:06)
[2022-06-16] MEDS: POLYETHYLENE (MIRALAX) 17 GM PACK PO SCH (20:07)
[2022-06-16] MEDS: ISOSORBIDE DINITRATE 20 MG TAB PO SCH (20:07)
[2022-06-16] MEDS: FAMOTIDINE 20 MG TAB PO SCH (20:07)
[2022-06-16] MEDS: LEVALBUTEROL 1.25MG/0.5ML NEB NEB SCH (20:46)
--- NOTE | 2022-06-16 20:52 | CT Scan Report ---
CT SCAN OF THE CHEST WITHOUT IV CONTRAST CLINICAL HISTORY: Pneumonia. COMPARISON STUDY: Chest x-ray dated 01/14/2022. Abdominal CT performed the same day 06/16/2022. Cervic al spine CT dated 12/22/2021. TECHNIQUE: CT scan of the thorax was performed from the thoracic inlet to the upper abdomen. Images are reviewed in the axial, sagittal, and coronal planes. IV contrast was not administered for this ex amination as per the referring clinician. A dose lowering technique was utilized adhering to the oss healthAron. CT DOSE: 805.45 mGy.cm FINDINGS: Thyroid: Enlarged heterogeneous thyroid goiter is similar to previous. Thoracic aorta: There is atherosclerotic calcification of the thoracic aorta, which is normal in kristin torsten and demonstrates standard 3-vessel arch anatomy. Heart: The heart is enlarged and without pericardial effusion. The coronary arteries are densely calc ified. Lungs and pleural spaces: There is bibasilar scarring/atelectasis. A mild patchy pneumonitis at the r ight lung base is unchanged from today's abdominal CT. Subpleural reticulation is present throughout both lungs. Foci of parenchyma scarring and atelectasis are present at both lung bases The trachea an d central airways are clear. No pleural effusion is identified. Scattered calcified granulomas are ob served. Mediastinum: There is no mediastinal lymphadenopathy. Vanda: Not well assessed without IV contrast. Axillae: There is no axillary lymphadenopathy. Upper abdomen: There is a 1.9 cm myelolipoma of the left adrenal gland. A tiny hiatal hernia is incid entally noted. Skeletal structures: The skeletal structures are osteopenic. Degenerative change and mild hyperkyphos is is noted in the thoracic spine. There is a mild chronic superior endplate compression deformity of T1. No lytic or blastic bony lesions are seen. Soft tissues: Numerous varicosities are present in the right breast. IMPRESSION: 1. Mild right basilar pneumonitis, unchanged from today's abdominal CT. 2. Cardiomegaly. 3. Additional findings as above. ACT 112: Negative or not required by law. Electronically signed by: Marco Morocho M.D. 06/16/2022 8:50 PM
[2022-06-16] MEDS ORDERED: LANTUS PER UNIT CHARGE SQ SCH (21:00)
[2022-06-16] MEDS: ONDANSETRON INJ 2 MG/ML 2 ML VIAL IV PRN (21:23)
[2022-06-16] MEDS: hydrALAZINE TAB 50 MG TAB PO SCH (21:23)
[2022-06-16] MEDS: HEPARIN SOD 5,000 UNIT/0.5 ML VIAL SQ SCH (21:24)
[2022-06-16] MEDS: allopurinoL 100 MG TAB PO SCH (21:24)
[2022-06-16] MEDS: ACETAMINOPHEN 325 MG TAB PO PRN (21:24)
[2022-06-16] MEDS: guaiFENesin 600 MG TABCR PO SCH (21:24)
[2022-06-16] MEDS ORDERED: PIPERACILLIN/TAZOBACTAM 4.5 GM in DEXTROSE 5% 100 ML IV SCH (22:00)
[2022-06-17] MEDS: LEVALBUTEROL 1.25MG/0.5ML NEB NEB SCH (05:49)
[2022-06-17] MEDS: hydrALAZINE TAB 50 MG TAB PO SCH ×3 (07:45→20:47)
[2022-06-17] MEDS: SACCHAROMYCES BOULARDII 250 MG CAP PO SCH (07:45)
[2022-06-17] MEDS: guaiFENesin 600 MG TABCR PO SCH ×2 (07:46→20:46)
[2022-06-17] MEDS: CYANOCOBALAMIN (B-12) 500 MCG TABLET PO SCH (07:46)
[2022-06-17] MEDS: CALCITRIOL 0.25 MCG CAPSULE PO SCH (07:46)
[2022-06-17] MEDS: ISOSORBIDE DINITRATE 20 MG TAB PO SCH ×3 (07:47→17:15)
[2022-06-17] MEDS: carvediloL 25 MG TAB PO SCH ×2 (07:47→17:15)
[2022-06-17] MEDS: ASPIRIN 81 MG ECTAB PO SCH (07:47)
[2022-06-17] MEDS: HEPARIN SOD 5,000 UNIT/0.5 ML VIAL SQ SCH ×2 (07:48→20:45)
[2022-06-17] MEDS: POLYETHYLENE (MIRALAX) 17 GM PACK PO SCH (08:02)
[2022-06-17 08:30] LABS: Hematocrit (blood only) 27.2 % (34.1-44.9); Hemoglobin 8.7 g/dl (12.0-16.0); Mean Corpuscular Hemoglobin 29.7 pg (25.0-34.0); Mean Corpuscular Volume 92.8 fL (80.0-100.0); Mean Platelet Volume 9.6 fL (9.4-12.3); Platelet Count 249 K/uL (130-400); RDW Coefficient of Variation 14.9 % (11.5-14.5); RDW Standard Deviation 50.4 fL (36.4-46.3); Red Blood Count 2.93 M/uL (3.93-5.22)
[2022-06-17] MEDS ORDERED: CEFEPIME 2,000 MG in SYRINGE 0 ML IV ONE (08:45)
[2022-06-17 08:52] LABS: Albumin Globulin Ratio 1.8 (0.9-2); Albumin Level 3.6 gm/dl (3.4-5.0); BUN Creatinine Ratio 24.6 (10-20); Bilirubin,Total 1.2 mg/dl (0.2-1.0); Calcium 9.2 mg/dl (8.5-10.1); Creatinine Clr Calc Pharmacy 17.5 ml/min; Est GFR (African American) 18.5 ml/min; Est GFR (Non-African American) 15.9 ml/min; Potassium 3.9 mmol/L (3.5-5.1); Total Protein 5.6 gm/dl (6.0-8.3)
[2022-06-17] MEDS: INSULIN ASPART PER UNIT SC SCH ×4 (09:01→21:10)
[2022-06-17] MEDS: VANCOMYCIN HCL 125 MG/2.5ML SOLN PO SCH (09:02)
[2022-06-17] MEDS: RASPBERRY SYRUP 5 ML UDP PO SCH (09:03)
[2022-06-17] MEDS: ONDANSETRON INJ 2 MG/ML 2 ML VIAL IV PRN (09:03)
--- NOTE | 2022-06-17 09:27 | Pharmacy Report ---
Pharmacy Glycemic Short Note 2 - Date of Service June 17, 2022 - Glycemic Short BSG Results (Last 24 hours): 06/16/22 06/16/22 06/16/22 10:43 13:37 14:53 Glucose 72 POC Glucose 52 L* 279 H 06/16/22 06/16/22 06/17/22 18:19 21:32 07:21 Glucose POC Glucose 154 H 134 H 147 H 06/17/22 08:18 Glucose 158 H POC Glucose OUTPATIENT ANTIDIABETIC REGIMEN: * Humulin 70/30 - 50 units Qam, 55 units Qpm * A1c 6.6% 04/2022 ASSESSMENT: * Patient admitted with RLL pneumonia. Type 2 diabetic managed on insulin at home. Pharmacy consulted for glycemic management * BSGs on arrival low in the 50s, likely due to poor oral intake. IV dextrose given for low blood sugar. * Patient recently admitted to hospital 05/14/22 - per notes, since being discharged she has had difficulty controlling her glucose. * Fasting BSG 147 mg/dL - had held basal insulin yesterday due to lower blood sugar, nausea. Will see how diet is today and how patient is feeling. Anticipate blood sugars will start to rise and that low dose basal insulin should be started. Will reevaluate at lunch time. PLAN FOR INPATIENT GLYCEMIC CONTROL: * Hold outpatient oral diabetes medications * Basal insulin * Lantus 10-15 units daily - reevaluate at lunch to see how she is feeling * Bolus insulin * NovoLog per scale ACHS or Q6hrs while NPO * Goal Range: Low 120 mg/dL - High 160 mg/dL * Correction Factor: 25 mg/dL/unit * Nutritional / Prandial insulin per carb ratio of 1 unit per 8 grams CHO consumed
[2022-06-17] MEDS: ACETAMINOPHEN 325 MG TAB PO PRN ×2 (09:29→20:57)
[2022-06-17 09:54] LABS: Appearance Urine Clear (Clear); Bacteria Urine Automated Negative (Negative); Bilirubin Urine Negative (Negative); Blood Urine Negative (Negative); Cast Urine Automated 0 /lpf (0-5); Color Urine Yellow; Epithelial Cell Urine Auto >30 /lpf (0-5); Glucose Urine UA Negative (Negative); Ketones Urine Negative (Negative); Leukocyte Esterase Urine Negative (Negative); Nitrite Urine Negative (Negative); Protein Urine 1+ (Negative); RBC Urine Automated 0-4 /hpf (0-4); Specific Gravity Urine 1.014 (1.000-1.030); Urobilinogen Urine Negative (Negative)
[2022-06-17] MEDS ORDERED: LANTUS PER UNIT CHARGE SQ SCH (13:00)
--- NOTE | 2022-06-17 16:21 | Hospitalist Progress Note ---
Date of Service June 17, 2022 Assessment & Plan (1) RLL pneumonia: Plan: - CT abdomen pelvis showing right lower lobe opacities spacious for pneumonia, if this is post-COVID sequela, Crackles on exam and RLL, otherwise clear throughout - Sputum culture, mucinex, duonebs QID and Q2H prn - COVID-negative - WBC at time of admission = 10.43, neutrophils 8.16 06/17 Possible post-COVID pneumonia? Blood cultures: Pending Sputum culture: Pending On room air Continue cefepime plus doxycycline day #1 Vancomycin 125 mg p.o. daily for C. difficile prophylaxis Mucinex Monitor closely CONSTIPATION CT abdomen pelvis: No obstruction Positive large bowel movement overnight Continue MiraLAX (2) Generalized weakness: Plan: - Likely secondary to above - PT/OT consult (3) DM (diabetes mellitus): (4) Hypoglycemia: Plan: - Last A1C= 6.6 on 05/15/22 - ISS with accuchecks achs, - Was taking Lantus 55 U QPM and 50 U QAM as outpatient - will reduce lantus --> 15 units daily BSG 1 47-2 07 (5) HTN (hypertension): Plan: - Cont BP medications, hold lasix (6) Anemia: Plan: - Hgb/hct appears to be around her baseline of 9.9/30.2 Hemoglobin 8.7 (7) Constipation: Plan: Per above DVT ppx: - teds, scds, heparin subq CODE: Full code Dispo: From home, likely to remain in the hospital x 1-2 days Admission and Anticipated Discharge Date Admission Date: June 16, 2022 Subjective Follow-up for right lower lobe pneumonia, constipation, etc. Seen resting in bed, comfortable, not in distress States she feels somewhat better today compared to yesterday Abdominal discomfort resolving, positive large bowel movement last night No nausea vomiting Breathing is better, no cough, no fevers or chills no chest pain, dyspnea, palpitations, dizziness no Other symptoms Review of Systems Review of Systems: all noted and negative except for above Physical Exam Physical Exam: General- oriented x 3, not in distress, speaks in sentences with no effort or accessory muscle use Eyes- anicteric Neck- no JVD Lungs-rhonchi right base, no wheezing Good air entry bilateral Heart- normal rate, regular rhythm; no murmurs Abdomen- normal bowel sounds, nondistended, soft, nontender Extremities- no pretibial edema, no calf tenderness Neuro- alert, oriented x 3; no gross focal neurologic deficits Skin- warm & dry Results & Data Results & Data ([facility]) Vital Signs (Past 12 Hours) Vital Signs Temp Pulse Pulse Resp BP Pulse Ox O2 Del Method 06/17/22 15:16 36.7 C 69 16 148/69 H 97 Room Air 06/17/22 14:18 94 06/17/22 07:10 Room Air 06/17/22 12:55 36.8 C 70 16 152/70 H 94 Room Air 06/17/22 07:16 36.7 C 70 16 147/64 H 92 Room Air all noted and reviewed including below (1) Constipation Constipation type: unspecified constipation type Qualified Code(s): K59.00 - Constipation, unspecified
[2022-06-17] MEDS ORDERED: MECLIZINE 12.5 MG TAB PO PRN (16:24)
[2022-06-17] MEDS: FAMOTIDINE 20 MG TAB PO SCH (17:16)
[2022-06-17] MEDS ORDERED: SODIUM CHLORIDE 0.9% 1000ML 1,000 ML IV SCH (17:30)
[2022-06-17] MEDS: allopurinoL 100 MG TAB PO SCH (20:47)
[2022-06-17] MEDS: ROSUVASTATIN CALCIUM 10 MG TAB PO SCH (20:47)
[2022-06-17] MEDS: CEFEPIME 1,000 MG in SYRINGE 0 ML IV SCH (20:48)
[2022-06-18] MEDS: POLYETHYLENE (MIRALAX) 17 GM PACK PO SCH (07:47)
[2022-06-18] MEDS: LIDOCAINE 5% 1 PATCH TD PRN (07:48)
[2022-06-18] MEDS: ONDANSETRON INJ 2 MG/ML 2 ML VIAL IV PRN ×2 (07:50→15:48)
[2022-06-18] MEDS: HEPARIN SOD 5,000 UNIT/0.5 ML VIAL SQ SCH ×2 (07:51→21:19)
[2022-06-18] MEDS: VANCOMYCIN HCL 125 MG/2.5ML SOLN PO SCH (07:53)
[2022-06-18] MEDS: RASPBERRY SYRUP 5 ML UDP PO SCH (07:53)
[2022-06-18] MEDS: guaiFENesin 600 MG TABCR PO SCH ×2 (07:54→21:16)
[2022-06-18] MEDS: ASPIRIN 81 MG ECTAB PO SCH (07:55)
[2022-06-18] MEDS: carvediloL 25 MG TAB PO SCH ×2 (07:55→17:49)
[2022-06-18] MEDS: SACCHAROMYCES BOULARDII 250 MG CAP PO SCH (07:55)
[2022-06-18] MEDS: hydrALAZINE TAB 50 MG TAB PO SCH ×3 (07:55→21:18)
[2022-06-18] MEDS: CYANOCOBALAMIN (B-12) 500 MCG TABLET PO SCH (07:55)
[2022-06-18] MEDS: ACETAMINOPHEN 325 MG TAB PO PRN ×2 (07:55→21:26)
[2022-06-18] MEDS: CALCITRIOL 0.25 MCG CAPSULE PO SCH (07:55)
[2022-06-18] MEDS: ISOSORBIDE DINITRATE 20 MG TAB PO SCH ×3 (07:55→17:49)
[2022-06-18] MEDS: CEFEPIME 1,000 MG in SYRINGE 0 ML IV SCH ×2 (07:58→21:19)
[2022-06-18] MEDS ORDERED: LANTUS PER UNIT CHARGE SQ SCH (09:00)
[2022-06-18] MEDS: INSULIN ASPART PER UNIT SC SCH ×4 (09:11→21:11)
[2022-06-18] MEDS: FAMOTIDINE 20 MG TAB PO SCH (17:49)
--- NOTE | 2022-06-18 18:12 | Hospitalist Progress Note ---
Date of Service June 18, 2022 Assessment & Plan (1) RLL pneumonia: Plan: - CT abdomen pelvis showing right lower lobe opacities spacious for pneumonia, if this is post-COVID sequela, Crackles on exam and RLL, otherwise clear throughout - Sputum culture, mucinex, duonebs QID and Q2H prn - COVID-negative - WBC at time of admission = 10.43, neutrophils 8.16 06/18 Possible post-COVID pneumonia? Blood cultures: negative x 48 hours Sputum culture: Pending On room air Continue cefepime plus doxycycline day #2 Vancomycin 125 mg p.o. daily for C. difficile prophylaxis Mucinex Monitor closely DIARRHEA check for C diff CONSTIPATION, Resolved CT abdomen pelvis: No obstruction Positive large bowel movement overnight Continue MiraLAX (2) Generalized weakness: Plan: - Likely secondary to above - PT/OT consult (3) DM (diabetes mellitus): (4) Hypoglycemia: Plan: - Last A1C= 6.6 on 05/15/22 - ISS with accuchecks achs, - Was taking Lantus 55 U QPM and 50 U QAM as outpatient - will reduce lantus --> 15 units daily BSG 126-199 (5) HTN (hypertension): Plan: - Cont BP medications, hold lasix (6) Anemia: Plan: - Hgb/hct appears to be around her baseline of 9.9/30.2 Hemoglobin 8.7 (7) Constipation: Plan: Per above DVT ppx: - teds, scds, heparin subq CODE: Full code Dispo: From home, likely to remain in the hospital x 1-2 days Admission and Anticipated Discharge Date Admission Date: June 16, 2022 Subjective ff up for pneumonia, etc seen resting in bed, sitting up (+) diarrhea today, mild abdominal discomfort no chest pain, dyspnea, palpitations, dizziness no other symptoms Review of Systems Review of Systems: all noted and negative except for above Physical Exam Physical Exam: General- oriented x 3, not in distress, speaks in sentences with no effort or accessory muscle use Eyes- anicteric Neck- no JVD Lungs-mild rales on the right base, no wheezing Heart- normal rate, regular rhythm; no murmurs Abdomen- normal bowel sounds, nondistended, soft, nontender Extremities- no pretibial edema, no calf tenderness Neuro- alert, oriented x 3; no gross focal neurologic deficits Skin- warm & dry Results & Data Results & Data ([facility]) Vital Signs (Past 12 Hours) Vital Signs Temp Pulse Resp BP Pulse Ox O2 Del Method 06/18/22 15:13 36.7 C 76 18 160/65 H 95 Room Air 06/18/22 07:37 36.7 C 62 18 177/75 H 95 Room Air all noted and reviewed including below (1) Constipation Constipation type: unspecified constipation type Qualified Code(s): K59.00 - Constipation, unspecified
[2022-06-18] MEDS: ROSUVASTATIN CALCIUM 10 MG TAB PO SCH (21:17)
[2022-06-18] MEDS: allopurinoL 100 MG TAB PO SCH (21:18)
[2022-06-18 22:24] LABS: Cdiff Antigen Negative; Cdiff Toxin A+B Negative Cdiff Toxin (Negative)
[2022-06-19] MEDS: ISOSORBIDE DINITRATE 20 MG TAB PO SCH ×3 (06:11→17:39)
[2022-06-19] MEDS: ASPIRIN 81 MG ECTAB PO SCH (08:39)
[2022-06-19] MEDS: HEPARIN SOD 5,000 UNIT/0.5 ML VIAL SQ SCH ×2 (08:39→20:19)
[2022-06-19] MEDS: RASPBERRY SYRUP 5 ML UDP PO SCH (08:39)
[2022-06-19] MEDS: VANCOMYCIN HCL 125 MG/2.5ML SOLN PO SCH (08:39)
[2022-06-19] MEDS: CEFEPIME 1,000 MG in SYRINGE 0 ML IV SCH ×2 (08:39→20:18)
[2022-06-19] MEDS: guaiFENesin 600 MG TABCR PO SCH (08:40)
[2022-06-19] MEDS: SACCHAROMYCES BOULARDII 250 MG CAP PO SCH (08:40)
[2022-06-19] MEDS: carvediloL 25 MG TAB PO SCH ×2 (08:40→17:39)
[2022-06-19] MEDS: hydrALAZINE TAB 50 MG TAB PO SCH ×3 (08:40→20:18)
[2022-06-19] MEDS: CYANOCOBALAMIN (B-12) 500 MCG TABLET PO SCH (08:40)
[2022-06-19] MEDS: CALCITRIOL 0.25 MCG CAPSULE PO SCH (08:40)
[2022-06-19 08:45] LABS: Basophils # (auto) 0.03 K/uL (0-0.2); Basophils % (auto) 0.4 %; Eosinophils # (auto) 0.25 K/uL (0-0.50); Eosinophils % (auto) 3.1 %; Immature Granulocytes # (auto) 0.05 K/uL (0.00-0.02); Immature Granulocytes % (auto) 0.6 %; Lymphocytes # (auto) 0.86 K/uL (1.2-3.4); Lymphocytes % (auto) 10.8 %; Mean Corpuscular Hemoglobin 29.8 pg (25.0-34.0); Mean Corpuscular Hgb Conc 32.1 g/dL (32.0-36.0); Mean Corpuscular Volume 92.7 fL (80.0-100.0); Mean Platelet Volume 9.5 fL (9.4-12.3); Monocytes # (auto) 0.72 K/uL (0.24-0.82); Monocytes % (auto) 9.1 %; Neutrophils # (auto) 6.04 K/uL (1.4-6.5); Platelet Count 257 K/uL (130-400); RDW Coefficient of Variation 14.9 % (11.5-14.5); RDW Standard Deviation 50.5 fL (36.4-46.3); Red Blood Count 3.02 M/uL (3.93-5.22); White Blood Count 7.95 K/ul (4.8-10.8)
[2022-06-19] MEDS: ACETAMINOPHEN 325 MG TAB PO PRN ×2 (08:48→20:23)
[2022-06-19] MEDS: LANTUS PER UNIT CHARGE SQ SCH (09:00)
[2022-06-19] MEDS: INSULIN ASPART PER UNIT SC SCH ×4 (09:00→21:35)
[2022-06-19 09:08] LABS: BUN Creatinine Ratio 21.6 (10-20); Calcium 9.7 mg/dl (8.5-10.1); Est GFR (African American) 21.8 ml/min; Est GFR (Non-African American) 18.8 ml/min; Potassium 3.9 mmol/L (3.5-5.1)
[2022-06-19] MEDS: amLODIPine BESYLATE 5 MG TAB PO SCH (10:15)
--- NOTE | 2022-06-19 11:13 | Hospitalist Progress Note ---
Date of Service June 19, 2022 Assessment & Plan (1) RLL pneumonia: (2) Generalized weakness: (3) DM (diabetes mellitus): (4) Hypoglycemia: (5) HTN (hypertension): (6) Anemia: (7) Constipation: Plan: (1) RLL pneumonia: Plan: - CT abdomen pelvis showing right lower lobe opacities spacious for pneumonia, if this is post-COVID sequela, Crackles on exam and RLL, otherwise clear throughout - Sputum culture, mucinex, duonebs QID and Q2H prn - COVID-negative - WBC at time of admission = 10.43, neutrophils 8.16 06/19 Possible post-COVID pneumonia? Blood cultures: negative x 48 hours Sputum culture: Pending clinically improving, breathing better, less cough On room air Continue cefepime plus doxycycline day #3 Vancomycin 125 mg p.o. daily for C. difficile prophylaxis Incentive Spirometry Monitor closely DIARRHEA C diff negative Miralax discontinued CONSTIPATION, Resolved CT abdomen pelvis: No obstruction Positive large bowel movement overnight Continue MiraLAX (2) Generalized weakness: Plan: - Likely secondary to above - PT/OT consult (3) DM (diabetes mellitus): (4) Hypoglycemia: Plan: - Last A1C= 6.6 on 05/15/22 - ISS with accuchecks amadas, - Was taking Lantus 55 U QPM and 50 U QAM as outpatient - will reduce lantus --> 20 units, ISS Pharmacy consulted- appreciate the recommendations (5) HTN (hypertension): Plan: - BP Elevated patient reports being anxious yesterday, declines Ativan PRN, declines Amlodipine due to hx of leg swelling Cont BP medications, hold lasix in light of poor intake - continue to Monitor (6) Anemia: Plan: - Hgb/hct appears to be around her baseline of 9.9/30.2 Hemoglobin 8.7 (7) Constipation: Plan: Per above DVT ppx: - teds, scds, heparin subq CODE: Full code Dispo: From home anticipate d/c home in 1-2 days Admission and Anticipated Discharge Date Admission Date: June 16, 2022 Subjective ff up for R sided pneumonia, etc seen resting in bed, comfortable sitting up states she feels improved today diarrhea resolved, stools becoming formed breathing is improved per patient less cough intermittent clear sputum no chest pain, dyspnea, palpitations, dizziness no other symptoms Review of Systems Review of Systems: all noted and negative except for above Physical Exam Physical Exam: General- oriented x 3, not in distress, speaks in sentences with no effort or accessory muscle use Eyes- anicteric Neck- no JVD Lungs-mild rales at the r base no wheezing Heart- normal rate, regular rhythm; no murmurs Abdomen- normal bowel sounds, nondistended, soft, nontender Extremities- no pretibial edema, no calf tenderness Neuro- alert, oriented x 3; no gross focal neurologic deficits Skin- warm & dry Results & Data Results & Data ([facility]) Vital Signs (Past 12 Hours) Vital Signs Temp Pulse Resp BP Pulse Ox O2 Del Method O2 Flow Rate 06/19/22 07:28 36.7 C 76 18 179/78 H 95 Room Air 06/19/22 00:18 Nasal Cannula 2 all noted and reviewed including below (1) Constipation Constipation type: unspecified constipation type Qualified Code(s): K59.00 - Constipation, unspecified
--- NOTE | 2022-06-19 14:00 | Pharmacy Report ---
Pharmacy Glycemic Short Note 2 - Date of Service June 19, 2022 - Glycemic Short BSG Results (Last 24 hours): 06/18/22 06/18/22 06/19/22 17:15 20:49 01:07 Glucose POC Glucose 126 H 206 H 178 H 06/19/22 06/19/22 06/19/22 08:08 08:13 12:23 Glucose 152 H POC Glucose 170 H 188 H OUTPATIENT ANTIDIABETIC REGIMEN: * Humulin 70/30 - 50 units Qam, 55 units Qpm * A1c 6.6% 04/2022 ASSESSMENT: 06/19/22 * Patient's BSGs yesterday were [phone] mg/dL. Fasting today is 170 mg/dL. * Patient received 35 units of insulin yesterday (20 units of basal and 15 units of bolus). * Fasting trending upwards so increase basal by 20%. * Tighten CR as BSGs elevated after in range BSG. BACKGROUND * Patient admitted with RLL pneumonia. Type 2 diabetic managed on insulin at home. Pharmacy consulted for glycemic management * BSGs on arrival low in the 50s, likely due to poor oral intake. IV dextrose given for low blood sugar. * Patient recently admitted to hospital 05/14/22 - per notes, since being discharged she has had difficulty controlling her glucose. * Fasting BSG 147 mg/dL - had held basal insulin yesterday due to lower blood sugar, nausea. Will see how diet is today and how patient is feeling. Anticipate blood sugars will start to rise and that low dose basal insulin should be started. Will reevaluate at lunch time. PLAN FOR INPATIENT GLYCEMIC CONTROL: * Hold outpatient oral diabetes medications * Basal insulin * Lantus 35 units daily * Bolus insulin * NovoLog per scale ACHS or Q6hrs while NPO * Goal Range: Low 120 mg/dL - High 160 mg/dL * Correction Factor: 20 mg/dL/unit * Nutritional / Prandial insulin per carb ratio of 1 unit per 6 grams CHO consumed
[2022-06-19] MEDS: FAMOTIDINE 20 MG TAB PO SCH (17:39)
[2022-06-19] MEDS: SODIUM CHLORIDE 0.9% 1000ML 1,000 ML IV SCH (18:36)
[2022-06-19] MEDS: ONDANSETRON INJ 2 MG/ML 2 ML VIAL IV PRN (18:38)
[2022-06-19] MEDS: ROSUVASTATIN CALCIUM 10 MG TAB PO SCH (20:18)
[2022-06-19] MEDS: allopurinoL 100 MG TAB PO SCH (20:18)
[2022-06-20] MEDS: ISOSORBIDE DINITRATE 20 MG TAB PO SCH ×2 (05:36→12:55)
[2022-06-20 08:22] LABS: BUN Creatinine Ratio 20.9 (10-20); Calcium 9.8 mg/dl (8.5-10.1); Est GFR (African American) 24.5 ml/min; Est GFR (Non-African American) 21.1 ml/min; Potassium 4.3 mmol/L (3.5-5.1)
[2022-06-20] MEDS: ASPIRIN 81 MG ECTAB PO SCH (09:08)
[2022-06-20] MEDS: CYANOCOBALAMIN (B-12) 500 MCG TABLET PO SCH (09:09)
[2022-06-20] MEDS: CALCITRIOL 0.25 MCG CAPSULE PO SCH (09:09)
[2022-06-20] MEDS: SACCHAROMYCES BOULARDII 250 MG CAP PO SCH (09:09)
[2022-06-20] MEDS: amLODIPine BESYLATE 5 MG TAB PO SCH (09:10)
[2022-06-20] MEDS: carvediloL 25 MG TAB PO SCH ×2 (09:10→17:02)
[2022-06-20] MEDS: VANCOMYCIN HCL 125 MG/2.5ML SOLN PO SCH (09:11)
[2022-06-20] MEDS: hydrALAZINE TAB 50 MG TAB PO SCH ×3 (09:11→21:03)
[2022-06-20] MEDS: RASPBERRY SYRUP 5 ML UDP PO SCH (09:12)
[2022-06-20] MEDS: HEPARIN SOD 5,000 UNIT/0.5 ML VIAL SQ SCH ×2 (09:16→21:03)
[2022-06-20] MEDS: INSULIN ASPART PER UNIT SC SCH ×4 (09:19→21:08)
[2022-06-20] MEDS: LANTUS PER UNIT CHARGE SQ SCH (09:20)
[2022-06-20] MEDS: CEFEPIME 1,000 MG in SYRINGE 0 ML IV SCH ×2 (10:07→21:14)
[2022-06-20] MEDS: ACETAMINOPHEN 325 MG TAB PO PRN ×2 (10:21→21:14)
[2022-06-20] MEDS ORDERED: SIMETHICONE 80 MG CHEW PO PRN (10:47)
[2022-06-20] MEDS ORDERED: LORazepam 0.5 MG TAB PO STA (10:59)
[2022-06-20] MEDS: SODIUM CHLORIDE 0.9% 1000ML 1,000 ML IV SCH (11:03)
[2022-06-20] MEDS ORDERED: SIMETHICONE 80 MG CHEW PO ONE (11:15)
[2022-06-20] MEDS ORDERED: PANTOprazole 40 MG in SYRINGE 0 ML IV SCH (11:15)
--- NOTE | 2022-06-20 11:18 | XRay Report ---
KUB CLINICAL HISTORY: r/o obstruction, nausea COMPARISON STUDY: CT of the abdomen and pelvis June 16, 2022. FINDINGS: Bowel gas pattern is within normal limits. There is no evidence for a bowel obstruction. Th ere are cholecystectomy clips. IMPRESSION: No evidence for a bowel obstruction. ACT 112: Negative or not required by law. Electronically signed by: Chai Morales M.D. 06/20/2022 11:17 AM
[2022-06-20] MEDS: LIDOCAINE 5% 1 PATCH TD PRN (11:35)
--- NOTE | 2022-06-20 12:17 | Gastrointestinal Consultation ---
Date of Consultation June 20, 2022 History of Present Illness Attending Physician: Jonathon Wilburn MD History of Present Illness Reason for consult: nausea, diarrhea HPI: 86 yo female admit on 06/16 for weakness, urinary incontinence, constipation x 2 days, cough. She underwent abd CT, which show fecal impaction, which was treated with manual disimpaction and bowel regimen with Miralax daily. She is also treated for possible pneumonia with Cefepime. She has recent COVID. We are consulted because pt reports loose post-prandial BM's yesterday and today. She reports 2-3 loose urgent non-bloody BM's yesterday, and 1 loose urgent non bloody BM today. + bloating, fullness. She states that she is reluctant to eat, due to urgent diarrhea. Mild nausea without vomiting, received Zofran once today. Denies reflux. Of note, she has a h/o recent C diff s/p Dificid. She is currently on maintenance Vanco 125 once daily. She is C diff pos/toxin neg. On PPI IV ttwice daily, nocturnal H2, Florastor. Miralax has been held. No narcotics, NSAIDs. H/o DM on insulin with sugars inthe low 100's. No NSAIDs. No recent colonscopy. PE: Comfortable, NAD HEENT: no thrush, pink CV: RRR Resp: CTA Abd: mod pannus, soft, NT. No tympany or distention by my exam. Labs: LFTs WNL o nadmit, no lipase BUN in the 40's, creat 2 Hgb 9 - at baseline A/P: h/o C diff, DM, recent COVID On abx, now with Diarrhea, nausea C diff neg - Suspect abx associated diarrhea or post obstructive diarrhea after relief of recent impaction. She may have underlying gastroparesis and DM related dysmotility, pelvic floor dysfunction as well. - Would check lipase. D/c Pepcid and consider change PPI to oral once daily. Would defer medications for diarrhea today, to avoid inducing constipation; however, if symptoms persist, can consider trial of Bentyl 10 BID or Immodium 2 mg once daily for relief of diarrhea, bloating. Please call with questions. Allergies Allergy/AdvReac Type Severity Reaction Status Date / Time No Known Allergies Allergy Verified 05/14/22 17:36 Home Medications Medication Instructions Recorded Confirmed Type aspirin 81 mg tablet,delayed 81 mg PO QAM 12/30/18 06/16/22 History release isosorbide dinitrate 20 mg tablet 20 mg PO TID 12/30/18 06/16/22 History rosuvastatin 10 mg tablet 10 mg PO HS 12/30/18 06/16/22 History famotidine 20 mg tablet (Pepcid) 20 mg PO QPM@1700 11/18/19 06/16/22 History lidocaine 4 % topical patch 1 patch topical DAILY PRN Pain 06/23/20 06/16/22 History (Salonpas (lidocaine)) insulin human U-100 NPH-regulr See Rx Instructions .Route .COMPLEX 03/16/21 06/16/22 History 70-30 mix 100 unit/mL subcutaneous susp (Humulin 70/30 U-100 Insulin) diclofenac sodium 1 % topical gel 4 g topical QID PRN Pain 03/17/21 06/16/22 History cyanocobalamin (vitamin B-12) 500 500 mcg PO QAM #30 tabs 03/27/21 06/16/22 Rx mcg tablet carvedilol 25 mg tablet 25 mg PO BIDM 06/13/21 06/16/22 History hydralazine 100 mg tablet 100 mg PO TID 06/13/21 06/16/22 History Saccharomyces boulardii 250 mg 250 mg PO QAM 08/26/21 06/16/22 History capsule (Florastor) ondansetron 4 mg disintegrating 4 mg PO Q6H PRN nausea and 11/25/21 06/16/22 Rx tablet vomiting #14 tabs acetaminophen 500 mg tablet 1,000 mg PO AMHS 04/26/22 06/16/22 History (Tylenol Extra Strength) allopurinol 100 mg tablet 200 mg PO QPM 04/26/22 06/16/22 History calcitriol 0.25 mcg capsule 0.25 mcg PO QAM 04/26/22 06/16/22 History simethicone 80 mg chewable tablet 80 mg PO DIRECTED PRN GAS 04/26/22 06/16/22 History DISCOMFORT ketoconazole 2 % shampoo 1 applic topical WK 05/14/22 06/16/22 History polyethylene glycol 3350 17 gram 17 g PO BID PRN Constipation 05/14/22 06/16/22 History oral powder packet furosemide 20 mg tablet 20 mg PO DAILY #90 tabs 05/23/22 06/16/22 Rx Patient History Medical History CHF (congestive heart failure) follows with Kaushal Nieto PA-C Chronic back pain Chronic kidney disease (CKD), stage IV (severe) follows with Dr. Childress Diabetes mellitus, type 2 Diverticulitis large intestine hx Hearing deficit History of kidney stones HTN (hypertension) Hyperlipidemia Kidney cysts LEFT SIDE>BEING MONITORED BY UROLOGY [facility] Morbid obesity with BMI of 40.0-44.9, adult Nocturnal hypoxemia On home oxygen therapy 2L N/C at HS only Osteoarthritis Surgical History H/O: hysterectomy History of arthroscopy of left knee History of bilateral tubal ligation History of cardiac cath ?2009--@ [facility] [place]--no stents History of colonoscopy History of cystoscopy History of dilatation and curettage History of esophagogastroduodenoscopy (EGD) History of tooth extraction all teeth Hx of appendectomy Hx of cholecystectomy Nausea and vomiting after administration of anesthetic agent Family History Sister Family history of diabetes mellitus Sister Family history of diabetes mellitus Brother Family history of diabetes mellitus Family history of esophageal cancer Brother Family history of esophageal cancer Father Lung cancer Other No family history of adverse response to anesthesia No significant family history Social History Smoking Status: Never smoker Second Hand Exposure: No; Hx Alcohol Use: No Hx Substance Use: No Preferred Language: [place]an Communication Ability: Effective 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 Beliefs That Will Affect Care: None marital status: / Current Living Situation: Family Current Living Situation Comment: With Son and Daughter in-law How many Children do You have: 2 Other Information That Helps Us Care for You: No Feels Safe at Home: Yes Safety Concerns: Feels Safe At This Time Assistive Devices: Walker Assistive Devices Comment: Glassess and Dentures Results & Data ([facility]) Vital Signs (Past 12 Hours) Vital Signs Temp Pulse Resp BP Pulse Ox O2 Del Method O2 Flow Rate 06/20/22 11:48 183/72 H 06/20/22 09:42 167/64 H 06/20/22 09:05 75 184/75 H 06/20/22 07:33 36.4 C L 66 18 156/74 H 98 Nasal Cannula 2 06/20/22 07:20 Room Air
[2022-06-20] MEDS ORDERED: ISOSORBIDE DINITRATE 20 MG TAB PO STA (12:58)
[2022-06-20] MEDS: ISOSORBIDE DINITRATE 40 MG TAB PO SCH (17:02)
--- NOTE | 2022-06-20 19:12 | Hospitalist Progress Note ---
Date of Service June 20, 2022 Assessment & Plan (1) RLL pneumonia: (2) Generalized weakness: (3) DM (diabetes mellitus): (4) Hypoglycemia: (5) HTN (hypertension): (6) Anemia: (7) Constipation: Plan: (1) RLL pneumonia: Plan: - CT abdomen pelvis showing right lower lobe opacities spacious for pneumonia, if this is post-COVID sequela, Crackles on exam and RLL, otherwise clear throughout - Sputum culture, mucinex, duonebs QID and Q2H prn - COVID-negative - WBC at time of admission = 10.43, neutrophils 8.16 06/20 Possible post-COVID pneumonia? Blood cultures: negative x 48 hours Sputum culture: Patient unable to provide sputum sample clinically improving, breathing better, less cough On room air Continue cefepime day #4/7 Vancomycin 125 mg p.o. daily for C. difficile prophylaxis Incentive Spirometry Monitor closely DIARRHEA C diff negative Miralax discontinued -- Persistent today with nausea, poor intake, abdominal distention KUB: No signs of obstruction -- Repeat C. difficile ordered Protonix IV ordered Diet changed to clear liquids GI consulted CONSTIPATION, Resolved CT abdomen pelvis: No obstruction Positive large bowel movement overnight Continue MiraLAX (2) Generalized weakness: Plan: - Likely secondary to above - PT/OT consult (3) DM (diabetes mellitus): (4) Hypoglycemia: Plan: - Last A1C= 6.6 on 05/15/22 - ISS with accuchecks denisse, - Was taking Lantus 55 U QPM and 50 U QAM as outpatient - will reduce lantus --> 20 units, ISS Pharmacy consulted- appreciate the recommendations (5) HTN (hypertension): Plan: - BP Elevated Ativan 0.25 mg given, BP still elevated Discussed with cardiology service, SHILPA Nieto-recommend to increase Isordil to 40 mg 3 times daily - continue to Monitor (6) Anemia: Plan: - Hgb/hct appears to be around her baseline of 9.9/30.2 Hemoglobin 8.7 (7) Constipation: Plan: Per above DVT ppx: - teds, scds, heparin subq CODE: Full code Dispo: From home anticipate d/c home in 1-2 days Admission and Anticipated Discharge Date Admission Date: June 16, 2022 Subjective Follow-up for diarrhea, pneumonia, etc. Seen resting in bed, sitting up, not in distress States she still having diarrhea, nausea, unable to eat Has diffuse abdominal discomfort No shortness of breath, cough, fevers or chills No chest pain Denies other symptom Review of Systems Review of Systems: all noted and negative except for above Physical Exam Physical Exam: General- oriented x 3, not in distress, speaks in sentences with no effort or accessory muscle use Eyes- anicteric Neck- no JVD Lungs- clear BS bilaterally, no rales/wheezes Heart- normal rate, regular rhythm; no murmurs Abdomen-hypoactive bowel sounds, mildly distended, Nontender Extremities- no pretibial edema, no calf tenderness Neuro- alert, oriented x 3; no gross focal neurologic deficits Skin- warm & dry Results & Data Results & Data ([facility]) Vital Signs (Past 12 Hours) Vital Signs Temp Pulse Resp BP Pulse Ox O2 Del Method O2 Flow Rate 06/20/22 18:02 72 156/74 H 06/20/22 16:57 65 181/71 H 06/20/22 15:03 36.3 C L 65 18 159/69 H 97 Room Air 06/20/22 14:16 69 158/68 H 06/20/22 12:47 68 194/78 H 06/20/22 11:48 183/72 H 06/20/22 09:42 167/64 H 06/20/22 09:05 75 184/75 H 06/20/22 07:33 36.4 C L 66 18 156/74 H 98 Nasal Cannula 2 06/20/22 07:20 Room Air all noted and reviewed including below (1) Constipation Constipation type: unspecified constipation type Qualified Code(s): K59.00 - Constipation, unspecified
[2022-06-20] MEDS: ROSUVASTATIN CALCIUM 10 MG TAB PO SCH (21:03)
[2022-06-20] MEDS: allopurinoL 100 MG TAB PO SCH (21:04)
[2022-06-21 07:22] LABS: BUN Creatinine Ratio 17.6 (10-20); Calcium 9.8 mg/dl (8.5-10.1); Creatinine Clr Calc Pharmacy 21.6 ml/min; Est GFR (African American) 23.9 ml/min; Est GFR (Non-African American) 20.6 ml/min
[2022-06-21] MEDS: INSULIN ASPART PER UNIT SC SCH ×4 (09:25→20:42)
[2022-06-21] MEDS: LANTUS PER UNIT CHARGE SQ SCH (09:25)
[2022-06-21] MEDS: ACETAMINOPHEN 325 MG TAB PO PRN ×2 (09:31→20:43)
[2022-06-21] MEDS: VANCOMYCIN HCL 125 MG/2.5ML SOLN PO SCH (09:31)
[2022-06-21] MEDS: RASPBERRY SYRUP 5 ML UDP PO SCH (09:32)
[2022-06-21] MEDS: ISOSORBIDE DINITRATE 40 MG TAB PO SCH ×3 (09:33→18:17)
[2022-06-21] MEDS: PANTOprazole 40 MG TAB PO SCH (09:33)
[2022-06-21] MEDS: SACCHAROMYCES BOULARDII 250 MG CAP PO SCH (09:34)
[2022-06-21] MEDS: CALCITRIOL 0.25 MCG CAPSULE PO SCH (09:34)
[2022-06-21] MEDS: CYANOCOBALAMIN (B-12) 500 MCG TABLET PO SCH (09:34)
[2022-06-21] MEDS: carvediloL 25 MG TAB PO SCH ×2 (09:34→18:17)
[2022-06-21] MEDS: ASPIRIN 81 MG ECTAB PO SCH (09:36)
[2022-06-21] MEDS: hydrALAZINE TAB 50 MG TAB PO SCH ×3 (09:36→20:35)
[2022-06-21] MEDS: HEPARIN SOD 5,000 UNIT/0.5 ML VIAL SQ SCH ×2 (09:36→20:33)
[2022-06-21] MEDS: CEFEPIME 1,000 MG in SYRINGE 0 ML IV SCH ×2 (09:57→20:43)
--- NOTE | 2022-06-21 11:55 | Pharmacy Report ---
Pharmacy Glycemic Short Note 2 - Date of Service June 21, 2022 - Glycemic Short BSG Results (Last 24 hours): 06/20/22 06/20/22 06/20/22 12:08 17:06 20:25 Glucose POC Glucose 161 H 89 212 H 06/21/22 06/21/22 06/21/22 01:08 05:55 07:26 Glucose 83 POC Glucose 115 H 106 H 06/21/22 11:46 Glucose POC Glucose 171 H OUTPATIENT ANTIDIABETIC REGIMEN: * Humulin 70/30 - 50 units Qam, 55 units Qpm * A1c 6.6% 04/2022 ASSESSMENT: 06/21/22 * BSGs reasonable yesterday, 132, 161, 89, and 212 mg/dL * Received 42 units of insulin (25 units of Lantus and 17 units of prandial/correctional Novolog) * Fasting BSG of 106 mg/dL this morning * Do not anticipate change in Novolog parameters today * Will continue to monitor PO intake, as patient continues to have intermittent nausea/diarrhea 06/19/22 * Patient's BSGs yesterday were [phone] mg/dL. Fasting today is 170 mg/dL. * Patient received 35 units of insulin yesterday (20 units of basal and 15 units of bolus). * Fasting trending upwards so increase basal by 20%. * Tighten CR as BSGs elevated after in range BSG. BACKGROUND * Patient admitted with RLL pneumonia. Type 2 diabetic managed on insulin at home. Pharmacy consulted for glycemic management * BSGs on arrival low in the 50s, likely due to poor oral intake. IV dextrose given for low blood sugar. * Patient recently admitted to hospital 05/14/22 - per notes, since being discharged she has had difficulty controlling her glucose. * Fasting BSG 147 mg/dL - had held basal insulin yesterday due to lower blood sugar, nausea. Will see how diet is today and how patient is feeling. Anticipate blood sugars will start to rise and that low dose basal insulin should be started. Will reevaluate at lunch time. PLAN FOR INPATIENT GLYCEMIC CONTROL: * Hold outpatient oral diabetes medications * Basal insulin * Lantus 25 units daily * Bolus insulin * NovoLog per scale ACHS or Q6hrs while NPO * Goal Range: Low 120 mg/dL - High 160 mg/dL * Correction Factor: 20 mg/dL/unit * Nutritional / Prandial insulin per carb ratio of 1 unit per 6 grams CHO consumed
--- NOTE | 2022-06-21 19:10 | Hospitalist Progress Note ---
Date of Service June 21, 2022 Assessment & Plan (1) RLL pneumonia: (2) Generalized weakness: (3) DM (diabetes mellitus): (4) Hypoglycemia: (5) HTN (hypertension): (6) Anemia: (7) Constipation: Plan: (1) RLL pneumonia: Plan: - CT abdomen pelvis showing right lower lobe opacities spacious for pneumonia, if this is post-COVID sequela, Crackles on exam and RLL, otherwise clear throughout - Sputum culture, mucinex, duonebs QID and Q2H prn - COVID-negative - WBC at time of admission = 10.43, neutrophils 8.16 06/21 Possible post-COVID pneumonia? Blood cultures: negative x 48 hours Sputum culture: Patient unable to provide sputum sample clinically improving, breathing better, less cough On room air Continue cefepime day # 6/7 Vancomycin 125 mg p.o. daily for C. difficile prophylaxis Incentive Spirometry Monitor closely DIARRHEA C diff negative Miralax discontinued -- Persistent today with nausea, poor intake, abdominal distention KUB: No signs of obstruction -- Repeat C. difficile ordered Protonix IV ordered Diet changed to clear liquids GI consulted 06/21 Resolving Second C. difficile test: Gene negative Advance diet CONSTIPATION, Resolved CT abdomen pelvis: No obstruction Positive large bowel movement overnight Continue MiraLAX (2) Generalized weakness: Plan: - Likely secondary to above - PT/OT consult (3) DM (diabetes mellitus): (4) Hypoglycemia: Plan: - Last A1C= 6.6 on 05/15/22 - ISS with accuchecks achs, - Was taking Lantus 55 U QPM and 50 U QAM as outpatient - will reduce lantus --> 20 units, ISS Pharmacy consulted- appreciate the recommendations (5) HTN (hypertension): Plan: - BP Elevated Ativan 0.25 mg given, BP still elevated Discussed with cardiology service, SHILPA Nieto-recommend to increase Isordil to 40 mg 3 times daily -BP improving Monitor (6) Anemia: Plan: - Hgb/hct appears to be around her baseline of 9.9/30.2 Hemoglobin 8.7 (7) Constipation: Plan: Per above DVT ppx: - teds, scds, heparin subq CODE: Full code Dispo: From home anticipate d/c home tomorrow Admission and Anticipated Discharge Date Admission Date: June 16, 2022 Subjective Follow-up for pneumonia, diarrhea Etc. Seen resting in bed, sitting up, not in distress States she feels improved today Diarrhea resolving Requesting to advance diet No shortness of breath, cough, chest pain No other symptom Review of Systems Review of Systems: all noted and negative except for above Physical Exam Physical Exam: General- oriented x 3, not in distress, speaks in sentences with no effort or accessory muscle use Eyes- anicteric Neck- no JVD Lungs- clear BS bilaterally, no rales/wheezes Heart- normal rate, regular rhythm; no murmurs Abdomen- normal bowel sounds, nondistended, soft, nontender Extremities- no pretibial edema, no calf tenderness Neuro- alert, oriented x 3; no gross focal neurologic deficits Skin- warm & dry Results & Data Results & Data ([facility]) Vital Signs (Past 12 Hours) Vital Signs Temp Pulse Resp BP Pulse Ox O2 Del Method 06/21/22 15:52 95 06/21/22 14:47 36.7 C 74 16 124/70 96 Room Air 06/21/22 09:20 Room Air 06/21/22 07:28 36.6 C 72 17 162/72 H 95 Room Air (1) Constipation Constipation type: unspecified constipation type Qualified Code(s): K59.00 - Constipation, unspecified
[2022-06-21] MEDS: ROSUVASTATIN CALCIUM 10 MG TAB PO SCH (20:35)
[2022-06-21] MEDS: allopurinoL 100 MG TAB PO SCH (20:35)
[2022-06-22] MEDS: ISOSORBIDE DINITRATE 40 MG TAB PO SCH ×3 (06:28→17:25)
[2022-06-22 08:11] LABS: BUN Creatinine Ratio 16.6 (10-20); Calcium 9.7 mg/dl (8.5-10.1); Creatinine Clr Calc Pharmacy 20.3 ml/min; Est GFR (African American) 22.2 ml/min; Est GFR (Non-African American) 19.2 ml/min; Potassium 4.1 mmol/L (3.5-5.1)
[2022-06-22] MEDS: hydrALAZINE TAB 50 MG TAB PO SCH ×3 (08:26→19:57)
[2022-06-22] MEDS: SACCHAROMYCES BOULARDII 250 MG CAP PO SCH (08:26)
[2022-06-22] MEDS: PANTOprazole 40 MG TAB PO SCH (08:27)
[2022-06-22] MEDS: carvediloL 25 MG TAB PO SCH ×2 (08:27→17:25)
[2022-06-22] MEDS: CALCITRIOL 0.25 MCG CAPSULE PO SCH (08:28)
[2022-06-22] MEDS: CYANOCOBALAMIN (B-12) 500 MCG TABLET PO SCH (08:28)
[2022-06-22] MEDS: ASPIRIN 81 MG ECTAB PO SCH (08:28)
[2022-06-22] MEDS ORDERED: FAMOTIDINE SUSP 20 MG/2.5 ML UDP PO STA (08:45)
[2022-06-22] MEDS: HEPARIN SOD 5,000 UNIT/0.5 ML VIAL SQ SCH ×2 (08:57→19:59)
[2022-06-22] MEDS: CEFEPIME 1,000 MG in SYRINGE 0 ML IV SCH ×2 (08:57→19:57)
[2022-06-22] MEDS: ACETAMINOPHEN 325 MG TAB PO PRN ×2 (08:59→20:00)
[2022-06-22] MEDS: INSULIN ASPART PER UNIT SC SCH ×4 (09:12→21:22)
[2022-06-22] MEDS: LANTUS PER UNIT CHARGE SQ SCH (09:12)
[2022-06-22] MEDS ORDERED: FAMOTIDINE 40 MG/5 ML 50ML BTL PO STA (09:12)
--- NOTE | 2022-06-22 09:32 | Hospitalist Progress Note ---
Date of Service June 22, 2022 Assessment & Plan (1) RLL pneumonia: (2) Generalized weakness: (3) DM (diabetes mellitus): (4) Hypoglycemia: (5) HTN (hypertension): (6) Anemia: (7) Constipation: Plan: (1) RLL pneumonia: Plan: - CT abdomen pelvis showing right lower lobe opacities spacious for pneumonia, if this is post-COVID sequela, Crackles on exam and RLL, otherwise clear throughout - COVID-negative - WBC at time of admission = 10.43, neutrophils 8.16 06/22 Possible post-COVID pneumonia? Blood cultures: negative x 48 hours Sputum culture: Patient unable to provide sputum sample clinically improved, breathing better, less cough On room air Continue cefepime day # 04/28--> last dose tonight Vancomycin 125 mg p.o. daily for C. difficile prophylaxis--> will need at least 1 week of Vanco 125mg po daily upon discharge for prophylaxis given C diff colitis very recently Incentive Spirometry CONSTIPATION, Resolved CT abdomen pelvis: No obstruction Positive large bowel movement after laxatives DIARRHEA followed constipation C diff negative x 2 Miralax discontinued KUB: No signs of obstruction -- GI consulted Dr. Harrington feels diarrhea related to antibiotics vs. diarrhea after being relieved from impaction diarrhea resolved, diet advanced to DM, AHA, low fiber, non dairy - now having bloating symptoms, stomach upset from antibiotic? last dose tonight from artificial sweetener component of DM diet? advised to avoid - continue usual Famotidine at 5pm additional dose given this morning Protonix added daily on Probiotics also (2) Generalized weakness: Plan: - Likely secondary to above - PT/OT consult (3) DM (diabetes mellitus): (4) Hypoglycemia: Plan: - Last A1C= 6.6 on 05/15/22 - ISS with accuchdonald salcedo, - Was taking Lantus 55 U QPM and 50 U QAM as outpatient - will reduce lantus --> 20 units, ISS Pharmacy consulted- appreciate the recommendations (5) HTN (hypertension): Plan: - BP Elevated Ativan 0.25 mg given, BP still elevated Discussed with cardiology service, SHILPA Nieto-recommend to increase Isordil to 40 mg 3 times daily -BP improving Monitor (6) Anemia: Plan: - Hgb/hct appears to be around her baseline of 9.9/30.2 Hemoglobin 8.7 (7) Constipation: Plan: Per above DVT ppx: - teds, scds, heparin subq CODE: Full code Dispo: From home anticipate d/c home tomorrow Admission and Anticipated Discharge Date Admission Date: June 16, 2022 Subjective ff up for RLL pneumonia, constipation with subsequent diarrhea, etc seen resting in bed, comfortable was bloated again overnight, "sweaty" has small BMs yesterday, no diarrhea "does not feel too good today" thinks the diet jello- made her stomach upset last night stomach still feels somewhat bloated breathing is fine, no cough no chest pain, dyspnea, palpitations, dizziness no other symptoms Review of Systems Review of Systems: all noted and negative except for above Physical Exam Physical Exam: General- oriented x 3, not in distress, speaks in sentences with no effort or accessory muscle use Eyes- anicteric Neck- no JVD Lungs- clear BS bilaterally, no rales/wheezes Heart- normal rate, regular rhythm; no murmurs Abdomen- normal bowel sounds, nondistended, soft, nontender Extremities- no pretibial edema, no calf tenderness Neuro- alert, oriented x 3; no gross focal neurologic deficits Skin- warm & dry Results & Data Results & Data ([facility]) Vital Signs (Past 12 Hours) Vital Signs Temp Pulse Resp BP Pulse Ox O2 Del Method 06/22/22 08:25 69 171/68 H 06/22/22 07:30 Room Air 06/22/22 07:36 17 178/61 H 99 Room Air 06/21/22 22:08 36.7 C 68 16 145/63 H 96 all noted and reviewed including below (1) Constipation Constipation type: unspecified constipation type Qualified Code(s): K59.00 - Constipation, unspecified
[2022-06-22] MEDS: RASPBERRY SYRUP 5 ML UDP PO SCH (09:41)
[2022-06-22] MEDS: VANCOMYCIN HCL 125 MG/2.5ML SOLN PO SCH (09:42)
--- NOTE | 2022-06-22 09:46 | Pharmacy Report ---
Pharmacy Glycemic Sign Off Nt - Date of Service June 22, 2022 - Assessment & Plan ASSESSMENT: * Pharmacy was consulted by Ileana Rodriguez on 06/16/22 for glycemic control and to write orders per [facility] inpatient glycemic control protocol. * Major changes made by pharmacy to antidiabetic regimen include: * Up-titration of Lantus and Novolog adjustments * Patient has been receiving/requiring ~40 units of insulin per day for adequate glycemic control * BSGs ranging 106-222 mg/dl * Regimen has only required minor adjustments over the past 48hrs to achieve this level of control * Patient requesting loosening of Novolog parameters because she is symptomatic < 150 mg/dL * Discussed with hospitalist, who will manage from here * Do not anticipate further changes in patient status that would quickly deteriorate glycemic control (i.e. patient to be NPO for upcoming procedure, steroids tapering, starting tube feedings, etc). * Please see recommendations for outpatient antidiabetic regimen below. PLAN FOR INPATIENT GLYCEMIC CONTROL: No changes needed to current regimen. * Continue basal insulin with Lantus 25 units SC daily * Continue NovoLog per scale ACHS/Q6hrs while NPO * Goal range = 120-150 mg/dl * CF = 25 mg/dl/unit * CR = 1 unit for ever 9 g CHO consumed * Pharmacy is signing off of glycemic consult and will no longer be making adjustments to inpatient regimen. Please feel free to re-consult if needed. Thank you.
[2022-06-22] MEDS ORDERED: FAMOTIDINE 40 MG/5 ML 50ML BTL PO SCH (17:00)
[2022-06-22] MEDS ORDERED: FAMOTIDINE SUSP 20 MG/2.5 ML UDP PO SCH (17:00)
[2022-06-22] MEDS ORDERED: FLUCONAZOLE 50 MG TAB PO ONE (18:17)
[2022-06-22] MEDS: ROSUVASTATIN CALCIUM 10 MG TAB PO SCH (19:58)
[2022-06-22] MEDS: allopurinoL 100 MG TAB PO SCH (19:59)
[2022-06-23] MEDS: ISOSORBIDE DINITRATE 40 MG TAB PO SCH ×2 (06:41→12:53)
[2022-06-23 08:18] LABS: BUN Creatinine Ratio 15.2 (10-20); Calcium 9.7 mg/dl (8.5-10.1); Creatinine Clr Calc Pharmacy 19.7 ml/min; Est GFR (African American) 21.4 ml/min; Est GFR (Non-African American) 18.5 ml/min; Phosphorus 3.5 mg/dl (2.5-4.9); Potassium 3.8 mmol/L (3.5-5.1)
[2022-06-23] MEDS: INSULIN ASPART PER UNIT SC SCH ×2 (09:13→12:51)
[2022-06-23] MEDS: ASPIRIN 81 MG ECTAB PO SCH (09:15)
[2022-06-23] MEDS: PANTOprazole 40 MG TAB PO SCH (09:15)
[2022-06-23] MEDS: hydrALAZINE TAB 50 MG TAB PO SCH (09:15)
[2022-06-23] MEDS: CALCITRIOL 0.25 MCG CAPSULE PO SCH (09:16)
[2022-06-23] MEDS: carvediloL 25 MG TAB PO SCH (09:16)
[2022-06-23] MEDS: RASPBERRY SYRUP 5 ML UDP PO SCH (09:16)
[2022-06-23] MEDS: SACCHAROMYCES BOULARDII 250 MG CAP PO SCH (09:17)
[2022-06-23] MEDS: HEPARIN SOD 5,000 UNIT/0.5 ML VIAL SQ SCH (09:17)
[2022-06-23] MEDS: CYANOCOBALAMIN (B-12) 500 MCG TABLET PO SCH (09:19)
[2022-06-23] MEDS: CEFEPIME 1,000 MG in SYRINGE 0 ML IV SCH (09:27)
[2022-06-23] MEDS: VANCOMYCIN HCL 125 MG/2.5ML SOLN PO SCH (09:28)
[2022-06-23] MEDS: ACETAMINOPHEN 325 MG TAB PO PRN (09:28)
[2022-06-23] MEDS: LANTUS PER UNIT CHARGE SQ SCH (09:33)
--- NOTE | 2022-06-23 12:15 | Discharge Summary ---
Date of Service June 23, 2022 Admission HPI Per Admitting Provider This is a 86 yo F with HFpEF (Ef 55-60%, GIDD in 2020), LBBB, PVD, HTN, DM on insulin, CKD stage 3 (baseline Cr 2.3), GERD, chronic anemiawho was recently in the hospital last month for c. diff colitis, sepsis, MISTI on CKD, and COVID-19 positive. She was discharged to home after that and lives with her son and daughter in law. Presents today with 2 to 3 days of illness which she describes as urinary incontinence, frequency, weakness, nausea, cough and dizziness, right upper quadrant pain, constipated x 2 days with abdominal distention. During her last hospital stay when she was treated for C. difficile she completed 7 more days upon discharge of Dificid as this was her second recurrence. Has been having some right upper quadrant pain as well as her last bowel movement was 2 days ago, feels distended and reports that she has been trialing MiraLAX as well as bran cereal to help her move her bowels however has not been working. She had a poor appetite yesterday and barely ate anything due to nausea. Today it appears on imaging that she has new opacities in the right lower lobe which were seen on a CTA of the abdomen and pelvis concerning for pneumonia. She is no longer COVID-19 positive, not hypoxic, and is satting at 95% on room air. She reports having cough, worsening over the past few days, as well as having some right-sided inner ear fullness. She was recently in to see ENT last with Brian. Patient also stopped taking her Lyrica approximately 3 days ago because she felt that it caused fullness in her head and was worsening her ability to hear as well as causing her voice to be raspy. No longer does she feel she has the symptoms since stopping the medication. Pt has records of her daily weights and bps at bedside. Of note she was found be hypoglycemic with a blood glucose of 52 upon presentation to the ER. She was administered IV dextrose. Last night she reports having sweating around 11:30 PM when she woke up and states her glucose was 73 at that time. She notes difficulty controlling her glucose since being discharged from the hospital about 1 month ago. Her regimen of Lantus continues to change, and most recently has been taking 55 units at night, 50 units in the morning per the diabetic nurse. She took all of her morning medications as directed today. Admission Exam Per Admitting Provider General: awake, alert, no apparent distress, Obese with BMI of 36.8 Head: Normocephalic, atraumatic ENT: PERRL, EOMI, no pharyngeal exudate, mucous membranes moist Chest: on room air o2 sats 95% on RA, + crackles at RLL, otherwise clear without adventitious breath sounds Cardiac: Regular rate and rhythm, + Systolic ejection murmur, no JVD, normal peripheral pulses, good capillary refill Abdominal: NABS x 4 quadrants, soft, +distended, tender to palpation in RUQ and LLQ, no rebound or guarding Extremities: Normal inspection, no peripheral edema or erythema, calfs nontender to palpation Psych: slightly depressed mood and anxious affect Neuro: AAO x 3, strength intact bilaterally and rated 5/5, no motor deficits, speech is clear, no peripheral sensory deficits Principal Diagnosis Pneumonia Discharge Exam Gen: WD/WN, NAD, sitting in bed, A&Ox3 HEENT: Normocephalic, atraumatic, conjunctivae moist, sclerae anicteric, mucous membranes moist Lung: Clear to Auscultation bilaterally, no wheezes/rales/rhonchi Heart: Regular rate, regular rhythm, no murmurs, rubs, or gallops Abdomen: Soft, NT, ND +BS x 4 Extremities: no edema Skin: Warm, no rash Discharge Data Allergies Allergy/AdvReac Type Severity Reaction Status Date / Time mannitol AdvReac Verified 06/22/22 13:26 sorbitol AdvReac Verified 06/22/22 13:26 xylitol AdvReac Verified 06/22/22 13:26 Consultations 06/16/22 13:50 ED Decision to Admit Stat 06/20/22 10:45 Consult Gastroenterology Routine Ordered Studies 06/16/22 11:39 CT abd pelvis wo con Stat 06/16/22 19:16 CT chest diagnostic wo con Stat Hospital Course (1) RLL pneumonia: (2) Generalized weakness: (3) DM (diabetes mellitus): (4) Hypoglycemia: (5) HTN (hypertension): (6) Anemia: (7) Constipation: Plan This is a 86 yo F with HFpEF (Ef 55-60%, GIDD in 2019), LBBB, PVD, HTN, DM on insulin, CKD stage 3 (baseline Cr 2.3), GERD, chronic anemiawho presents with shortness of breath, decreased appetite, weakness and was found to have right lower lobe pneumonia. Has completed antibiotic course. Due to diarrhea and recent C. difficile infection, will be continued on 7-day oral vancomycin course upon discharge. Was evaluated by GI service who felt diarrhea is related to antibiotics versus relief from impaction. Continue famotidine, Protonix added daily. Continue probiotics. Did have hypoglycemic episode while admitted and is requiring significantly less insulin while inpatient then she uses at home. We will reduce 70/30 insulin dose to 25 units twice a day for now and patient instructed to increase blood sugar checks (at least twice daily). Close follow- up with diabetic nurse and MTM to adjust insulin as needed within 1 week. Blood pressure elevated on admission and per recommendation from cardiology service, Isordil increased to 40 mg 3 times daily. Follow-up with PCP and diabetic nurse within 1 week. Patient asymptomatic and hemodynamically stable at time of discharge. Total Time Total Time Spent Total Time Spent (In Minutes): 50 Discharge Plan Discharge Items Patient Disposition: Home - Self-Care Reason For Visit: PNEUMONIA Discharge Diagnosis: RLL pneumonia Activity: Resume your previous activity Non-emergency contact: Primary Care Provider Call non-emergency contact if: you have any medication questions, your symptoms worsen, your pain is not controlled and you have a fever Follow-up/Referrals: Fox Ramirez MD [Primary Care Provider] - (Date & Time 06/28/2022 11:20 AM Provider Kaushal Leon MD [facility] ) Diet: Carb Consistent or DM2 and Heart Healthy Addtl Attending Provider Instructions: You were admitted with pneumonia and have completed antibiotic course. Please continue vancomycin suspension once daily for the next 7 days as prophylaxis given recent C. difficile infection. Your Isordil was increased to 40 mg 3 times daily to better control your blood pressure. Insulin dose reduced to 25 units twice a day due to low blood sugar while in hospital. Follow-up with diabeti nurse for adjustments to insulin. Please check blood sugar at least twice daily and keep a log. RECOMMENDATIONS FOR FOLLOW-UP: Follow up with Primary care doctor and diabetic nurse within 1 week. The appointment with your primary care doctor was scheduled for you for June 28. OTHER INSTRUCTIONS: Seek medical attention if you have: * temperature above 101 * chest pain or trouble breathing * abdominal pain, nausea, vomiting * diarrhea, dark stools or bloody stools * any unanswered questions or concerns Call 911 if symptoms are severe. Please take good care of yourself. Call if you have any questions or problems. You can reach a [facility] hospitalist on duty at [facility] 24 hours a day by calling [phone]. Pending Studies at Discharge: No Stand-Alone Forms: My [facility], Smoking Cessation Medications and DC Order Prescriptions: New isosorbide dinitrate [Isordil] 40 mg Tablet 40 mg PO TID@0700,1200,1700 Qty: 90 0RF Rx Instructions: take 40mg three times a day vancomycin 50 mg/mL recon soln 125 mg PO DAILY Qty: 17.5 0RF Rx Instructions: Take 125mg (2.5 ml) daily x 7 days. pantoprazole 40 mg Tablet,Delayed Release (Dr/Ec) 40 mg PO QAM Qty: 30 0RF Rx Instructions: Take once daily Continued furosemide 20 mg tablet 20 mg PO DAILY Qty: 90 3RF ondansetron 4 mg tablet,disintegrating 4 mg PO Q6H PRN (Reason: nausea and vomiting) Qty: 14 0RF lidocaine [Salonpas (lidocaine)] 4 % Adhesive Patch,Medicated 1 patch TOPICAL DAILY PRN (Reason: Pain) aspirin 81 mg Tablet,Delayed Release (Dr/Ec) 81 mg PO QAM rosuvastatin 10 mg tablet 10 mg PO HS famotidine [Pepcid] 20 mg Tablet 20 mg PO QPM@1700 hydralazine 100 mg tablet 100 mg PO TID carvedilol 25 mg tablet 25 mg PO BIDM acetaminophen [Tylenol Extra Strength] 500 mg Tablet 1,000 mg PO AMHS simethicone 80 mg Tablet,Chewable 80 mg PO DIRECTED PRN (Reason: GAS DISCOMFORT) allopurinol 100 mg tablet 200 mg PO QPM calcitriol 0.25 mcg capsule 0.25 mcg PO QAM ketoconazole 2 % shampoo 1 applic TOPICAL WK polyethylene glycol 3350 17 gram powder in packet 17 g PO BID PRN (Reason: Constipation) diclofenac sodium 1 % gel 4 g TOP QID PRN (Reason: Pain) cyanocobalamin (vitamin B-12) 500 mcg Tablet 500 mcg PO QAM Qty: 30 0RF Saccharomyces boulardii [Florastor] 250 mg capsule 250 mg PO QAM Changed Humulin 70/30 U-100 Insulin 100 unit/mL (70-30) suspension 25 unit subcut BID Qty: 10 0RF Discontinued isosorbide dinitrate 20 mg tablet 20 mg PO TID Discharge Orders: Discharge Order (Routine); Ordered 06/23/22 Ordered By: Tatyana Mckeon/Other Patient Handouts: Treating Pneumonia Admission Data Admit Date/Time: 06/16/22 13:59 Attending Provider: Brenden Mosher Admit Provider: Jonathon Wilburn Primary Care Provider: Fox Ramirez Other Providers: Jonathon Wilburn ; Monica Harrington ; Tatyana Valencia Other Interventions: Discharge Summary Assessment (RN) Last Done: 06/23/22 12:11 Supervising Physician Co-Signing Physician Notes Patient seen and examined by me, care coordinated with Tatyana Valencia PA-C, please refer to her note above for further detail. Patient treated for pneumonia, finished antibiotic treatment. Given her history of C. difficile, she will be on p.o. vancomycin for 1 more week. She will also need close follow-up for her diabetes as her insulin was decreased here, patient was found hypoglycemic. Currently she is feeling quite well. Discharge exam as above. Follow-up with primary care provider arranged. MD Vidhi
== END 2022-06-23 14:02 | disposition home or self-care (01) | DRG 194 ==
LOC: ED 09:44 → SUATTDRO 13:59 → EDINP 13:59 → 3W 17:43

== ENCOUNTER 2022-08-05 15:06 | Inpatient (IN) ==
[2022-08-05] MEDS ORDERED: SODIUM CHLORIDE 0.9% 500 ML IV STA (15:18)
[2022-08-05 15:37] LABS: Basophils # (auto) 0.05 K/uL (0-0.2); Basophils % (auto) 0.3 %; Eosinophils # (auto) 0.07 K/uL (0-0.50); Eosinophils % (auto) 0.4 %; Hematocrit (blood only) 31.5 % (34.1-44.9); Hemoglobin 10.2 g/dl (12.0-16.0); Immature Granulocytes % (auto) 0.6 %; Lymphocytes # (auto) 0.93 K/uL (1.2-3.4); Lymphocytes % (auto) 5.3 %; Mean Corpuscular Hemoglobin 30.4 pg (25.0-34.0); Mean Corpuscular Hgb Conc 32.4 g/dL (32.0-36.0); Mean Corpuscular Volume 93.8 fL (80.0-100.0); Mean Platelet Volume 9.6 fL (9.4-12.3); Monocytes # (auto) 1.53 K/uL (0.24-0.82); Monocytes % (auto) 8.7 %; Neutrophils # (auto) 14.84 K/uL (1.4-6.5); Neutrophils % (auto) 84.7 %; Platelet Count 262 K/uL (130-400); RDW Coefficient of Variation 15.4 % (11.5-14.5); RDW Standard Deviation 52.6 fL (36.4-46.3); Red Blood Count 3.36 M/uL (3.93-5.22); White Blood Count 17.52 K/ul (4.8-10.8)
[2022-08-05 16:14] LABS: Alanine Aminotransferase 7 U/L (7-52); Albumin Globulin Ratio 1.9 (0.9-2); Albumin Level 4.2 gm/dl (3.4-5.0); Alkaline Phosphatase 49 U/L (34-104); Anion Gap 10 (3-11); Aspartate Aminotransferase 11 U/L (13-39); BUN Creatinine Ratio 17.6 (10-20); Bilirubin,Total 1.3 mg/dl (0.2-1.0); Blood Urea Nitrogen 58 mg/dl (6-23); Calcium 10.6 mg/dl (8.5-10.1); Carbon Dioxide 29 mmol/L (21-32); Chloride 99 mmol/L (98-107); Est GFR (African American) 13.9 ml/min; Globulin 2.2 gm/dl (2.5-4.0); Glucose 156 mg/dl (70-99(Fasting)); Lipase 14 U/L (11-82); Potassium 3.3 mmol/L (3.5-5.1); Sodium 138 mmol/L (136-145); Total Protein 6.4 gm/dl (6.0-8.3)
[2022-08-05] MEDS ORDERED: AMPICILLIN/SULBACTAM SOD 3,000 MG in 0.9 % SODIUM CHLORIDE 100 ML IV STA (17:54)
[2022-08-05] MEDS ORDERED: MoRPHine SULFATE 2 MG/ML CARP IV PRN ×2 (17:54→23:25)
[2022-08-05] MEDS ORDERED: ACETAMINOPHEN 1,000 MG/100 ML VIAL IV STA (17:54)
[2022-08-05] MEDS ORDERED: ONDANSETRON INJ 2 MG/ML 2 ML VIAL IV STA (17:54)
[2022-08-05] MEDS ORDERED: SODIUM CHLORIDE 0.9% 1000ML 1,000 ML IV ONE (17:54)
[2022-08-05] MEDS ORDERED: MoRPHine SULFATE 2 MG/ML CARP IV STA (17:54)
--- NOTE | 2022-08-05 18:14 | Emergency Department Note ---
Impression & Plan Lower abdominal pain, Diverticulitis, Leukocytosis, Diarrhea, MISTI (acute kidney injury) ED Provider Note NAME: BELKIS LERMA AGE: 86 SEX: F : 1935 ARRIVES VIA: Walk-In INFORMANT: [Patient] ED PROVIDER(S): [Marco Almaguer MD] CHIEF COMPLAINT: Diarrhea, abdominal pain HISTORY OF PRESENT ILLNESS: The patient is an 86-year-old female with a history of diverticulitis, C. difficile. She presents with 3 days of diarrhea. No blood, just loose and watery stool. She has bilateral lower abdominal pain that seems to improve after a bowel movement. Before the bowel movement, the pain is an 8/10. She had some chills, no fever. No cough or congestion or shortness of breath. No urinary complaints. She has not had vomiting but she has felt quite nauseated. She is afraid that she has diverticulitis again. REVIEW OF SYSTEMS: See HPI for pertinent positives and negatives. A total of ten systems were reviewed and were otherwise negative. PMHx/PSHx: See Below SOCIAL HISTORY: See Below. PHYSICAL EXAM: GENERAL: Patient is in no acute distress. Slightly anxious. HEENT: No acute trauma, normocephalic atraumatic, mucous membranes moist, no nasal congestion, no scleral icterus. NECK: No stridor, no adenopathy, no meningismus, trachea is midline. LUNGS: Clear to auscultation bilaterally, no wheeze, no rhonchi, breath sounds equal. HEART: Without murmurs gallops or rubs, regular rate and rhythm. ABDOMEN: Soft, moderately tender in both lower quadrants, no peritonitis. EXTREMITIES: No cyanosis or edema, full range of motion of all the joints without pain or difficulty, no signs for acute trauma. NEUROLOGIC: Oriented x 3, no acute motor or sensory deficits, no focal weakness. SKIN: No rash, no jaundice, no diaphoresis. DIFFERENTIAL DIAGNOSIS: Appendicitis, ovarian cyst, ovarian torsion, diverticulitis, UTI, obstruction, mesenteric ischemia, aortic pathology, inflammatory bowel disease, renal colic, PUD, pancreatitis, biliary pathology, hernia, volvulus, constipation, as well as other pathologies. EMERGENCY DEPARTMENT COURSE/PROCEDURES: ECG: Indication was infection and abdominal pain. The ECG shows what appears to be a normal sinus rhythm with a rate of 83. There is some LVH present. There is no ST elevation, no PVCs. The QTc is 448. Continuous Cardiac Monitoring: An order was placed for continuous cardiac monitoring. The monitor shows a rate of 86 with normal sinus rhythm. MEDICAL DECISION MAKING: There is a moderate leukocytosis, this could be consistent with infection. The patient was anemic but she has a history of the same. There was a normal platelet count. Potassium slightly low at 3.3. Creatinine was elevated at 3.3, above her baseline. No worrisome liver enzyme elevation. No pancreatitis. Uri nalysis did not show findings of infection. COVID test was negative. Abdominal and pelvis CT showed diverticulitis without abscess or perforation. On exam, the patient was uncomfortable. There was no peritonitis. Patient received IV saline, IV Zofran, IV morphine. She was given IV Tylenol and IV Unasyn. The patient needs a hospital stay for her diverticulitis and acute kidney injury. I did speak with the patient and case management, the on-call hospitalist was consulted. Past Med/Surg History Medical History CHF (congestive heart failure) follows with Kaushal Nieto PA-C Chronic back pain Chronic kidney disease (CKD), stage IV (severe) follows with Dr. Childress Diabetes mellitus, type 2 Diverticulitis large intestine hx Hearing deficit History of kidney stones HTN (hypertension) Hyperlipidemia Kidney cysts LEFT SIDE>BEING MONITORED BY [facility] Morbid obesity with BMI of 40.0-44.9, adult Nocturnal hypoxemia On home oxygen therapy 2L N/C at HS only Osteoarthritis Surgical History H/O: hysterectomy History of arthroscopy of left knee History of bilateral tubal ligation History of cardiac cath History of colonoscopy History of cystoscopy History of dilatation and curettage History of esophagogastroduodenoscopy (EGD) History of tooth extraction Hx of appendectomy Hx of cholecystectomy Nausea and vomiting after administration of anesthetic agent Family History Sister Family history of diabetes mellitus Sister Family history of diabetes mellitus Brother Family history of diabetes mellitus Family history of esophageal cancer Brother Family history of esophageal cancer Father Lung cancer Other No family history of adverse response to anesthesia No significant family history Social History Smoking Status: Never smoker Second Hand Exposure: No; Hx Alcohol Use: No Hx Substance Use: No Preferred Language: Luxembourgish Communication Ability: Effective Talking Books Library Clerk Required: No Beliefs That Will Affect Care: None marital status: / Current Living Situation: Family Current Living Situation Comment: With Son and Daughter in-law How many Children do You have: 2 Feels Safe at Home: Yes Assistive Devices: Walker Allergies Allergies Allergy/AdvReac Type Severity Reaction Status Date / Time mannitol AdvReac Verified 07/29/22 12:36 sorbitol AdvReac Verified 07/29/22 12:36 xylitol AdvReac Verified 07/29/22 12:36 Home Meds Home Medications Medication Instructions Recorded Confirmed aspirin 81 mg tablet,delayed 81 mg PO QAM 12/30/18 08/05/22 release rosuvastatin 10 mg tablet 10 mg PO HS 12/30/18 08/05/22 famotidine 20 mg tablet (Pepcid) 20 mg PO QPM@1700 11/18/19 08/05/22 lidocaine 4 % topical patch 1 patch topical DAILY PRN Pain 06/23/20 08/05/22 (Salonpas (lidocaine)) diclofenac sodium 1 % topical gel 4 g topical QID PRN Pain 03/17/21 08/05/22 carvedilol 25 mg tablet 25 mg PO BIDM 06/13/21 08/05/22 hydralazine 100 mg tablet 100 mg PO TID 06/13/21 08/05/22 Saccharomyces boulardii 250 mg 250 mg PO QAM 08/26/21 08/05/22 capsule (Florastor) acetaminophen 500 mg tablet 1,000 mg PO AMHS 04/26/22 08/05/22 (Tylenol Extra Strength) allopurinol 100 mg tablet 200 mg PO QPM 04/26/22 08/05/22 simethicone 80 mg chewable tablet 80 mg PO DIRECTED PRN GAS 04/26/22 08/05/22 ketoconazole 2 % shampoo 1 applic topical WK 05/14/22 08/05/22 insulin human U-100 NPH-regulr 30 unit subcut BID 08/05/22 08/05/22 70-30 mix 100 unit/mL subcutaneous susp (Humulin 70/30 U-100 Insulin) omeprazole 20 mg capsule,delayed 20 mg PO QAM 08/05/22 08/05/22 release Previous Rx's Medication Instructions Recorded cyanocobalamin (vitamin B-12) 500 500 mcg PO QAM #30 tabs 03/27/21 mcg tablet ondansetron 4 mg disintegrating 4 mg PO Q6H PRN nausea and 11/25/21 tablet vomiting #14 tabs isosorbide dinitrate 40 mg tablet 40 mg PO TID@0700,1200,1700 #90 06/23/22 (Isordil) tabs calcitriol 0.25 mcg capsule 0.25 mcg PO QAM #90 caps 07/18/22 furosemide 20 mg tablet 20 mg PO DAILY #90 tabs 07/22/22 Results & Data (ED) Vital Signs Vital Signs - 24 hr 08/05/22 15:15 08/05/22 17:25 08/05/22 18:41 Temperature 36.6 C Temperature Source Temporal Artery Scan Pulse Rate 79 89 Pulse Rate [Right Finger] 86 Pulse Rhythm [Right Finger] Pulse Strength [Right Finger] Respiratory Rate 16 16 24 Respiratory Effort / Characteristics Non-Labored Respiratory Depth Normal Respiratory Pattern Blood Pressure 163/64 H 177/96 H Blood Pressure [Right Arm] 242/89 H Blood Pressure Mean 97 123 Blood Pressure Mean [Right Arm] 140 Blood Pressure Position [Right Arm] Pulse Oximetry 97 95 95 Oxygen Delivery Method Room Air Room Air Sepsis Recent Fever Within 48 Hours No Sepsis New/Unexplained Change in Mental Status No Sepsis Action Taken by Nursing No Action Required 08/05/22 21:00 Temperature Temperature Source Pulse Rate Pulse Rate [Right Finger] 85 Pulse Rhythm [Right Finger] Regular Pulse Strength [Right Finger] Normal Respiratory Rate 18 Respiratory Effort / Characteristics Non-Labored Respiratory Depth Normal Respiratory Pattern Regular Blood Pressure Blood Pressure [Right Arm] 167/74 H Blood Pressure Mean Blood Pressure Mean [Right Arm] 105 Blood Pressure Position [Right Arm] Lying Pulse Oximetry 92 Oxygen Delivery Method Room Air Sepsis Recent Fever Within 48 Hours Sepsis New/Unexplained Change in Mental Status Sepsis Action Taken by Usp Medications Current Medication List: was personally reviewed by me Laboratory Data Attestation: I reviewed the patient's lab results. Result diagrams: 08/05/22 15:25 08/05/22 15:25 Lab Results 08/05/22 08/05/22 08/05/22 Range/Units 15:25 15:25 18:30 WBC 17.52 H (4.8-10.8) K/ul RBC 3.36 L (3.93-5.22) M/uL Hgb 10.2 L (12.0-16.0) g/dl Hct 31.5 L (34.1-44.9) % MCV 93.8 (80.0-100.0) fL MCH 30.4 (25.0-34.0) pg MCHC 32.4 (32.0-36.0) g/dL RDW Std Deviation 52.6 H (36.4-46.3) fL RDW Coeff of Noemy 15.4 H (11.5-14.5) % Plt Count 262 (130-400) K/uL MPV 9.6 (9.4-12.3) fL Immature Gran % (Auto) 0.6 % Neut % (Auto) 84.7 % Lymph % (Auto) 5.3 % [place] % (Auto) 8.7 % Eos % (Auto) 0.4 % Baso % (Auto) 0.3 % Neut # (Auto) 14.84 H (1.4-6.5) K/uL Lymph # (Auto) 0.93 L (1.2-3.4) K/uL [place] # (Auto) 1.53 H (0.24-0.82) K/uL Eos # (Auto) 0.07 (0-0.50) K/uL Baso # (Auto) 0.05 (0-0.2) K/uL Immature Gran # (Auto) 0.10 H (0.00-0.02) K/uL Sodium 138 (136-145) mmol/L Potassium 3.3 L (3.5-5.1) mmol/L Chloride 99 (98-107) mmol/L Carbon Dioxide 29 (21-32) mmol/L Anion Gap 10 (3-11) BUN 58 H (6-23) mg/dl Creatinine 3.30 H (0.6-1.2) mg/dl Est Cr Clr Drug Dosing Not Reportable Est GFR ( Amer) 13.9 ml/min Est GFR (Non-Af Amer) 12.0 ml/min BUN/Creatinine Ratio 17.6 (10-20) Glucose 156 H (70-99(Fasting)) mg/dl Calcium 10.6 H (8.5-10.1) mg/dl Total Bilirubin 1.3 H (0.2-1.0) mg/dl AST 11 L (13-39) U/L ALT 7 (7-52) U/L Alkaline Phosphatase 49 (34-104) U/L Total Protein 6.4 (6.0-8.3) gm/dl Albumin 4.2 (3.4-5.0) gm/dl Globulin 2.2 L (2.5-4.0) gm/dl Albumin/Globulin Ratio 1.9 (0.9-2) Lipase 14 (11-82) U/L Urine Color Urine Appearance (Clear) Urine pH (4.5-7.5) Ur Specific [place] (1.000-1.030) Urine Protein (Negative) Urine Glucose (UA) (Negative) Urine Ketones (Negative) Urine Blood (Negative) Urine Nitrite (Negative) Urine Bilirubin (Negative) Urine Urobilinogen (Negative) Ur Leukocyte Esterase (Negative) Urine WBC (Auto) (0-5) /hpf Urine RBC (Auto) (0-4) /hpf U Hyaline Cast (Auto) (0-5) /lpf U Epithel Cells (Auto) (0-5) /lpf Urine Bacteria (Auto) (Negative) SARS-CoV-2, RNA, NAAT NEGATIVE (NEGATIVE) 08/05/22 Range/Units 18:30 WBC (4.8-10.8) K/ul RBC (3.93-5.22) M/uL Hgb (12.0-16.0) g/dl Hct (34.1-44.9) % MCV (80.0-100.0) fL MCH (25.0-34.0) pg MCHC (32.0-36.0) g/dL RDW Std Deviation (36.4-46.3) fL RDW Coeff of Noemy (11.5-14.5) % Plt Count (130-400) K/uL MPV (9.4-12.3) fL Immature Gran % (Auto) % Neut % (Auto) % Lymph % (Auto) % [place] % (Auto) % Eos % (Auto) % Baso % (Auto) % Neut # (Auto) (1.4-6.5) K/uL Lymph # (Auto) (1.2-3.4) K/uL [place] # (Auto) (0.24-0.82) K/uL Eos # (Auto) (0-0.50) K/uL Baso # (Auto) (0-0.2) K/uL Immature Gran # (Auto) (0.00-0.02) K/uL Sodium (136-145) mmol/L Potassium (3.5-5.1) mmol/L Chloride (98-107) mmol/L Carbon Dioxide (21-32) mmol/L Anion Gap (3-11) BUN (6-23) mg/dl Creatinine (0.6-1.2) mg/dl Est Cr Clr Drug Dosing Est GFR ( Amer) ml/min Est GFR (Non-Af Amer) ml/min BUN/Creatinine Ratio (10-20) Glucose (70-99(Fasting)) mg/dl Calcium (8.5-10.1) mg/dl Total Bilirubin (0.2-1.0) mg/dl AST (13-39) U/L ALT (7-52) U/L Alkaline Phosphatase (34-104) U/L Total Protein (6.0-8.3) gm/dl Albumin (3.4-5.0) gm/dl Globulin (2.5-4.0) gm/dl Albumin/Globulin Ratio (0.9-2) Lipase (11-82) U/L Urine Color Yellow Urine Appearance Clear (Clear) Urine pH 5.5 (4.5-7.5) Ur Specific [place] 1.014 (1.000-1.030) Urine Protein 2+ H (Negative) Urine Glucose (UA) Negative (Negative) Urine Ketones Negative (Negative) Urine Blood Negative (Negative) Urine Nitrite Negative (Negative) Urine Bilirubin Negative (Negative) Urine Urobilinogen Negative (Negative) Ur Leukocyte Esterase Negative (Negative) Urine WBC (Auto) 1-5 (0-5) /hpf Urine RBC (Auto) 0-4 (0-4) /hpf U Hyaline Cast (Auto) 1-5 (0-5) /lpf U Epithel Cells (Auto) >30 H (0-5) /lpf Urine Bacteria (Auto) Negative (Negative) SARS-CoV-2, RNA, NAAT (NEGATIVE) Administered Medications Discontinued Medications Sodium Chloride (Nss) 500 mls @ 999 mls/hr IV .Q31M STA Stop: 08/05/22 15:48 Last Admin: 08/05/22 18:20 Dose: Not Given Documented By: MIA Sodium Chloride (Nss 1000ml) 1,000 mls @ 999 mls/hr IV .Q1H1M ONE Stop: 08/05/22 18:54 Last Infusion: 08/05/22 19:51 Dose: 0 mls/hr Documented By: Admin: 08/05/22 18:25 Dose: 999 mls/hr Documented By: MIA Acetaminophen (Ofirmev) 1,000 mg in 100 mls @ 400 mls/hr IV NOW STA Stop: 08/05/22 18:08 Last Infusion: 08/05/22 19:06 Dose: 0 mls/hr Documented By: Admin: 08/05/22 18:20 Dose: 400 mls/hr Documented By: MIA Ampicillin Sodium/Sulbactam Sodium 3,000 mg/ Sodium Chloride 108 mls @ 200 mls/hr IV NOW STA; Protocol Stop: 08/05/22 18:26 Last Infusion: 08/05/22 20:25 Dose: 0 mls/hr Documented By: Admin: 08/05/22 19:52 Dose: 200 mls/hr Documented By: LAVINIA Morphine Sulfate (Morphine Sulfate 2 Mg/Ml Carp) 2 mg IV NOW STA Stop: 08/05/22 17:55 Last Admin: 08/05/22 18:19 Dose: 2 mg Documented By: MIA Ondansetron HCl (Ondansetron Inj 2 Mg/Ml 2 Ml Vial) 4 mg IV NOW STA Stop: 08/05/22 17:55 Last Admin: 08/05/22 18:19 Dose: 4 mg Documented By: MIA Imaging Data Radiologist's Impression: Abdomen/Pelvis CT 08/05/22 17:54 CT abd pelvis wo con CLINICAL HISTORY: poss divertic TECHNIQUE: Helical axial images of the abdomen and pelvis were obtained. Automated dose lowering techniques and/or adjustment according to patient size were utilized for this exam. This exam was performed without intravenous contrast. CT DOSE: 869.52 mGy.cm COMPARISON: Comparison is made to CT abdomen pelvis 06/16/2022 FINDINGS: Lower chest: Cardiomegaly is seen. Atelectasis versus scarring is seen in the visualized lungs. Liver: A left hepatic cyst measuring 17 mm is noted. Gallbladder and biliary tree: Patient is status post cholecystectomy. No intra- or extrahepatic biliary ductal dilation. Pancreas: Unremarkable, no focal lesions. Spleen: Unremarkable. 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 Kidneys and ureters: The kidneys are atrophic. There is a large intermediate density lesion in the middle of the left kidney. Bladder: A tiny focus of air is seen which may be due to recent instrumentation. Reproductive organs: Numerous diverticula are seen. There is thickening and fat stranding in the sigmoid colon. No abscess or perforation is seen. Patient is status post appendectomy. Bowel: Unremarkable. Lymph nodes Retroperitoneal: Unremarkable. Pelvic: Unremarkable. Mesenteric: Unremarkable. Peritoneum: Normal. Vessels: Atherosclerotic calcifications are seen. Abdominal wall: Soft tissue stranding is seen in the anterior abdominal wall, unchanged from prior exam. Bones: Degenerative changes in the visualized spine. IMPRESSION: 1. Findings are compatible with acute diverticulitis without evidence of perforation or abscess. 2. Redemonstration of bilateral hyperdense renal cystic lesions. If not previously evaluated, ultrasound or MRI can be performed to exclude malignancy. 3. Additional findings as above. ACT 112: Negative or not required by law. Electronically signed by: Win Scott M.D. 08/05/2022 7:53 PM Discharge Plan Visit Data Chief Complaint: Diarrhea Stated Complaint: DIARRHEA, STOMACH CRAMPS ED Provider: Marco Almaguer Discharge Problem: Lower abdominal pain, Diverticulitis, Leukocytosis, Diarrhea, MISTI (acute kidney injury) Patient Disposition: Admitted As Inpatient Condition: Fair Forms Stand Alone Forms: [facility] Intrinsity Prescriptions Prescriptions: No Action calcitriol 0.25 mcg capsule 0.25 mcg PO QAM Qty: 90 3RF ondansetron 4 mg tablet,disintegrating 4 mg PO Q6H PRN (Reason: nausea and vomiting) Qty: 14 0RF furosemide 20 mg tablet 20 mg PO DAILY Qty: 90 3RF lidocaine [Salonpas (lidocaine)] 4 % Adhesive Patch,Medicated 1 patch TOPICAL DAILY PRN (Reason: Pain) aspirin 81 mg Tablet,Delayed Release (Dr/Ec) 81 mg PO QAM rosuvastatin 10 mg tablet 10 mg PO HS famotidine [Pepcid] 20 mg Tablet 20 mg PO QPM@1700 Rx Instructions: take with supper hydralazine 100 mg tablet 100 mg PO TID carvedilol 25 mg tablet 25 mg PO BIDM acetaminophen [Tylenol Extra Strength] 500 mg Tablet 1,000 mg PO AMHS simethicone 80 mg Tablet,Chewable 80 mg PO DIRECTED PRN (Reason: GAS ) allopurinol 100 mg tablet 200 mg PO QPM ketoconazole 2 % shampoo 1 applic TOPICAL WK Rx Instructions: massage into entire scalp,rinse out after 10 minutes diclofenac sodium 1 % gel 4 g TOP QID PRN (Reason: Pain) Rx Instructions: apply to bilateral knees cyanocobalamin (vitamin B-12) 500 mcg Tablet 500 mcg PO QAM Qty: 30 0RF Saccharomyces boulardii [Florastor] 250 mg capsule 250 mg PO QAM isosorbide dinitrate [Isordil] 40 mg Tablet 40 mg PO TID@0700,1200,1700 Qty: 90 0RF Rx Instructions: take 40mg three times a day Humulin 70/30 U-100 Insulin 100 unit/mL (70-30) suspension 30 unit subcut BID Rx Instructions: take before breakfast and supper omeprazole 20 mg capsule,delayed release(DR/EC) 20 mg PO QAM Referrals Referrals: Fox Ramirez MD [Primary Care Provider] -
[2022-08-05 19:29] LABS: Appearance Urine Clear (Clear); Bacteria Urine Automated Negative (Negative); Bilirubin Urine Negative (Negative); Blood Urine Negative (Negative); Color Urine Yellow; Epithelial Cell Urine Auto >30 /lpf (0-5); Glucose Urine UA Negative (Negative); Ketones Urine Negative (Negative); Leukocyte Esterase Urine Negative (Negative); Nitrite Urine Negative (Negative); Protein Urine 2+ (Negative); RBC Urine Automated 0-4 /hpf (0-4); Specific Gravity Urine 1.014 (1.000-1.030); Urobilinogen Urine Negative (Negative); pH Urine 5.5 (4.5-7.5)
--- NOTE | 2022-08-05 19:54 | CT Scan Report ---
CT abd pelvis wo con CLINICAL HISTORY: poss divertic TECHNIQUE: Helical axial images of the abdomen and pelvis were obtained. Automated dose lowering tech niques and/or adjustment according to patient size were utilized for this exam. This exam was perfor med without intravenous contrast. CT DOSE: 869.52 mGy.cm COMPARISON: Comparison is made to CT abdomen pelvis 06/16/2022 FINDINGS: Lower chest: Cardiomegaly is seen. Atelectasis versus scarring is seen in the visualized lungs. Liver: A left hepatic cyst measuring 17 mm is noted. Gallbladder and biliary tree: Patient is status post cholecystectomy. No intra- or extrahepatic bilia ry ductal dilation. Pancreas: Unremarkable, no focal lesions. Spleen: Unremarkable. 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 Kidneys and ureters: The kidneys are atrophic. There is a large intermediate density lesion in the mi ddle of the left kidney. Bladder: A tiny focus of air is seen which may be due to recent instrumentation. Reproductive organs: Numerous diverticula are seen. There is thickening and fat stranding in the sigm oid colon. No abscess or perforation is seen. Patient is status post appendectomy. Bowel: Unremarkable. Lymph nodes Retroperitoneal: Unremarkable. Pelvic: Unremarkable. Mesenteric: Unremarkable. Peritoneum: Normal. Vessels: Atherosclerotic calcifications are seen. Abdominal wall: Soft tissue stranding is seen in the anterior abdominal wall, unchanged from prior ex am. Bones: Degenerative changes in the visualized spine. IMPRESSION: 1. Findings are compatible with acute diverticulitis without evidence of perforation or abscess. 2. Redemonstration of bilateral hyperdense renal cystic lesions. If not previously evaluated, ultras ound or MRI can be performed to exclude malignancy. 3. Additional findings as above. ACT 112: Negative or not required by law. Electronically signed by: Win Scott M.D. 08/05/2022 7:53 PM
[2022-08-05] MEDS ORDERED: DICLOFENAC SOD 1% GEL 100 GM TUBE EXT PRN (23:25)
[2022-08-05] MEDS ORDERED: NITROGLYCERIN SL 0.4 MG/TAB TAB SL PRN (23:25)
[2022-08-05] MEDS ORDERED: SIMETHICONE 80 MG CHEW PO PRN (23:25)
[2022-08-05] MEDS ORDERED: ACETAMINOPHEN 325 MG TAB PO PRN (23:25)
--- NOTE | 2022-08-05 23:58 | History and Physical Report ---
DATE OF ADMISSION: 08/05/2022. CHIEF COMPLAINT: Abdominal pain and diarrhea. HISTORY OF PRESENT ILLNESS: An 86-year-old female with past medical history significant for diabetes, hyperlipidemia, history of nocturnal hypoxia, uses 2 liters of oxygen while sleeping, chronic rhinitis, chronic kidney disease stage IV, secondary hyperparathyroidism, history of mitral valve insufficiency, diastolic CHF, hypertension, left bundle-branch block, obesity, GERD, history of diverticulitis, history of C. diff colitis, history of chronic constipation, acquired cystic kidney disease, history of compression fracture of T6 vertebrae, osteoporosis, lumbar degenerative disk disease, arthritis, lumbar radiculopathy, anemia, presents with diarrhea and abdominal pain going on from last Monday. She says she has been having about 5 episodes of diarrhea every day, watery. No blood in the stools. Her abdominal pain is all over the abdomen and is nauseous. Hemodynamically stable. Has some headache. Sometimes gets blurred vision from her diabetes. On and off runny nose. No sore throat, no cough, no difficulty swallowing. She gets some on and off chest discomfort from the left chest to the left arm and she states it is going on since her COVID infection. Has some mild shortness of breath. She uses 2 liters of oxygen at nighttime. Normal bladder movements. Ambulates with a walker, lives with her son and family. ALLERGIES: MANNITOL/SORBITOL AND XYLITOL. PAST MEDICAL HISTORY: As mentioned above. PAST SURGICAL HISTORY: Knee arthroplasty, colonoscopy, lumbosacral spine injection, tubal ligation, appendectomy, cholecystectomy, total hysterectomy. MEDICATIONS: The patient is on Tylenol 1000 mg p.o. b.i.d., allopurinol 200 mg p.o. p.m., aspirin 81 mg p.o. a.m., calcitriol 0.25 mcg p.o. daily, Coreg 25 mg p.o. b.i.d., vitamin B12 500 mcg p.o. daily, diclofenac sodium 4 g topical q.i.d. p.r.n., Pepcid 20 mg p.o. p.m., Lasix 20 mg p.o. daily, Humulin 70/30, 30 units b.i.d., hydralazine 100 mg p.o. t.i.d., isosorbide dinitrate 20 mg p.o. t.i.d., ketoconazole shampoo weekly, lidocaine 1 patch daily p.r.n., omeprazole 20 mg p.o. daily, Zofran 4 mg p.o. q.6 hours p.r.n., rosuvastatin 10 mg p.o. at bedtime, Florastor 250 mg p.o. daily, simethicone 80 mg p.o. p.r.n. SOCIAL HISTORY: , currently lives with her son. No smoking, no alcohol, no drug use. REVIEW OF SYSTEMS: As per HPI. Rest of the review of systems is negative. PHYSICAL EXAMINATION: GENERAL: The patient is obese, not in acute distress. VITAL SIGNS: Temperature 36.6, pulse 84, respiratory rate 18, blood pressure 167/74, oxygen 92% on room air. HEENT: Pupils equal, round and reactive to light. Oral mucosa dry. NECK: No JVD, no neck masses. CARDIOVASCULAR: S1 and S2 heard. Regular rate and rhythm. No murmur, no gallop. RESPIRATORY SYSTEM: Normal AP diameter. No accessory muscle use. No wheezing, no crackles. ABDOMEN: Soft, bowel sounds present. Diffuse tenderness, mild guarding. No rigidity, no distention. CENTRAL NERVOUS SYSTEM: Alert and oriented. Her speech is clear. No facial droop. Insight is good. Obeys simple commands. Moves extremities. EXTREMITIES: Mild pedal edema. No erythema seen. LABORATORY DATA: WBC 17.5, hemoglobin 10.2, hematocrit 31.5, platelets 262. Sodium 138, potassium 3.3, chloride 99, bicarbonate 29, BUN 58, creatinine 3.3, serum glucose 156, calcium 10.6, total bilirubin 1.3, AST 11, ALT 7, alkaline phosphatase 49, lipase 14. Urinalysis negative. SARS-CoV-2 rapid test negative. IMAGING: CT of abdomen and pelvis without contrast, findings are compatible with acute diverticulitis without evidence of perforation or abscess. Redemonstration of bilateral hyperdense renal cystic lesions. ELECTROCARDIOGRAM: Undetermined, at a rate of 83. ASSESSMENT AND PLAN: An 86-year-old female who presents with abdominal pain, diarrhea and found to have diverticulitis. 1. Acute diverticulitis. The patient had diverticulitis in April/May of 2021. At that time, post treatment, she developed Clostridium difficile colitis in June. Currently received Unasyn in the Emergency Room. We will continue with iv Zosyn b.i.d. as per the renal function . Stool PCR is ordered in the Emergency Room. We will empirically also start her on p.o. vancomycin because of history of Clostridium difficile colitis. If the Clostridium difficile is negative, we can place her on p.o. vancomycin as suppressive therapy until completion of antibiotic therapy for diverticulitis. Surgery consulted. Keep her n.p.o., gentle fluids. Monitor in the med-telemetry because of history of congestive heart failure. 2. Chronic diastolic congestive heart failure. Continue Coreg, hydralazine. Monitor for any volume overload. Lasix on hold. 3. Acute kidney injury on chronic kidney disease stage IV. Baseline creatinine around 2.5 to 2.8. Presents with creatinine of 3.3. Holding Lasix. Getting gentle fluids, monitor for response. If not improved, consult nephrology. 4. Diabetes. The patient is on Humulin 70/30, 30 units b.i.d. at home. Currently n.p.o., we will place her Lantus 10 units b.i.d. and insulin sliding scale. Follow the hemoglobin A1c level and follow the blood sugars. 5. History of gout, continue allopurinol. 6. Hypertension, on Coreg, hydralazine, isosorbide dinitrate. Monitor the blood pressure. 7. Hyperlipidemia, on statin. 8. Chronic back pain, continue with lidocaine patch. 9. Anemia of chronic kidney disease, we will follow the laboratories. 10. Nocturnal hypoxia, continue oxygen. 11. Deep venous thrombosis prophylaxis, place her on Lovenox. DISPOSITION: Closely monitor in the med-tele. PT/OT prior to discharge. Social service to help with discharge planning. Level 1, full code. Job ID: [id number] [facility]
[2022-08-06] MEDS ORDERED: LIDOCAINE 5% 1 PATCH TD PRN (00:07)
[2022-08-06] MEDS ORDERED: GLUCAGON FOR INJ 1 MG VIAL IM PRN (00:15)
[2022-08-06] MEDS ORDERED: GLUCOSE 40% GEL 15 GM TUBE PO PRN (00:15)
[2022-08-06] MEDS ORDERED: CARBOHYDRATES FOR HYPOGLYCEMIA PO PRN (00:15)
[2022-08-06] MEDS ORDERED: GLUCOSE 10 TAB/TUBE PO PRN (00:15)
[2022-08-06] MEDS ORDERED: DEXTROSE 50% 50 ML SYRINGE IV PRN (00:15)
[2022-08-06] MEDS: SODIUM CHLORIDE 0.9% 1000ML 1,000 ML IV SCH ×2 (00:28→14:01)
[2022-08-06] MEDS: RASPBERRY SYRUP 5 ML UDP PO SCH ×4 (00:29→17:45)
[2022-08-06] MEDS: INSULIN ASPART PER UNIT SC SCH ×5 (00:29→21:36)
[2022-08-06] MEDS: VANCOMYCIN HCL 125 MG/2.5ML SOLN PO SCH ×4 (00:29→17:45)
[2022-08-06] MEDS ORDERED: PIPERACILLIN/TAZOBACTAM 3.375 GM in DEXTROSE 5% 100 ML IV ONE (00:30)
[2022-08-06] MEDS: ONDANSETRON INJ 2 MG/ML 2 ML VIAL IV PRN ×2 (03:51→16:25)
[2022-08-06] MEDS: ISOSORBIDE DINITRATE 20 MG TAB PO SCH ×3 (06:32→17:46)
[2022-08-06 06:42] LABS: Basophils # (auto) 0.04 K/uL (0-0.2); Basophils % (auto) 0.4 %; Eosinophils # (auto) 0.11 K/uL (0-0.50); Hematocrit (blood only) 27.8 % (34.1-44.9); Hemoglobin 9.3 g/dl (12.0-16.0); Immature Granulocytes # (auto) 0.05 K/uL (0.00-0.02); Immature Granulocytes % (auto) 0.4 %; Lymphocytes # (auto) 0.77 K/uL (1.2-3.4); Lymphocytes % (auto) 6.9 %; Mean Corpuscular Hemoglobin 30.9 pg (25.0-34.0); Mean Corpuscular Hgb Conc 33.5 g/dL (32.0-36.0); Mean Corpuscular Volume 92.4 fL (80.0-100.0); Mean Platelet Volume 9.9 fL (9.4-12.3); Monocytes # (auto) 1.19 K/uL (0.24-0.82); Monocytes % (auto) 10.6 %; Neutrophils # (auto) 9.03 K/uL (1.4-6.5); Neutrophils % (auto) 80.7 %; Platelet Count 242 K/uL (130-400); RDW Standard Deviation 50.5 fL (36.4-46.3); Red Blood Count 3.01 M/uL (3.93-5.22); White Blood Count 11.19 K/ul (4.8-10.8)
[2022-08-06] MEDS ORDERED: INSULIN ASPART PER UNIT SC SCH (07:30)
[2022-08-06 07:32] LABS: BUN Creatinine Ratio 17.8 (10-20); Calcium 9.6 mg/dl (8.5-10.1); Creatinine Clr Calc Pharmacy 15.4 ml/min; Est GFR (African American) 16.1 ml/min; Est GFR (Non-African American) 13.9 ml/min; Potassium 3.1 mmol/L (3.5-5.1)
[2022-08-06 07:50] LABS: Estimated Average Glucose 146 mg/dl; Hemoglobin A1C 6.7 % (4.5-5.6)
[2022-08-06] MEDS ORDERED: ENOXAPARIN INJ 30 MG/0.3 ML SYR SQ SCH (09:00)
[2022-08-06] MEDS: carvediloL 25 MG TAB PO SCH ×2 (09:18→17:46)
[2022-08-06] MEDS: PIPERACILLIN/TAZOBACTAM 3.375 GM in DEXTROSE 5% 100 ML IV SCH ×2 (09:19→21:32)
[2022-08-06] MEDS: SACCHAROMYCES BOULARDII 250 MG CAP PO SCH (09:23)
[2022-08-06] MEDS: CALCITRIOL 0.25 MCG CAPSULE PO SCH (09:24)
[2022-08-06] MEDS: hydrALAZINE TAB 50 MG TAB PO SCH ×3 (09:24→21:34)
[2022-08-06] MEDS: CYANOCOBALAMIN (B-12) 500 MCG TABLET PO SCH (09:24)
[2022-08-06] MEDS: PANTOprazole 40 MG TAB PO SCH (09:25)
[2022-08-06] MEDS: ASPIRIN 81 MG ECTAB PO SCH (09:25)
[2022-08-06] MEDS: ACETAMINOPHEN 500 MG TAB PO SCH ×2 (09:25→21:33)
[2022-08-06] MEDS: POTASSIUM CHLORIDE CRTAB 20 MEQ TABCR PO SCH ×2 (09:37→10:42)
[2022-08-06] MEDS: LANTUS PER UNIT CHARGE SQ SCH ×2 (09:37→21:34)
--- NOTE | 2022-08-06 10:50 | Surgery Consultation ---
Date of Consultation August 06, 2022 Assessment & Plan (1) Diverticulitis: pt is a 86 year-old female who was admitted to hospital for diverticulitis, IMP: diverticulitis, plan, uncomplicated diverticulitis, no surgery indication now, pt is doing better, WBC down to 11,000 from 17,000, conservative treatment, IV fluid, IV antibiotic, control pain, repeat labs in morning, will F/U, History of Present Illness Reason for Consultation: diverticulitis Requesting Physician: Jorge Luis Beasley MD Attending Physician: Constanza Overton DO History of Present Illness CHIEF COMPLAINT: Abdominal pain and diarrhea. HISTORY OF PRESENT ILLNESS: An 86-year-old female with past medical history significant for diabetes, hyperlipidemia, history of nocturnal hypoxia, uses 2 liters of oxygen while sleeping, chronic rhinitis, chronic kidney disease stage IV, secondary hyperparathyroidism, history of mitral valve insufficiency, diastolic CHF, hypertension, left bundle-branch block, obesity, GERD, history of diverticulitis, history of C. diff colitis, history of chronic constipation, acquired cystic kidney disease, history of compression fracture of T6 vertebrae, osteoporosis, lumbar degenerative disk disease, arthritis, lumbar radiculopathy, anemia, presents with diarrhea and abdominal pain going on from last Monday. She says she has been having about 5 episodes of diarrhea every day, watery. No blood in the stools. Her abdominal pain is all over the abdomen and is nause ous. Hemodynamically stable. Has some headache. Sometimes gets blurred vision from her diabetes. On and off runny nose. No sore throat, no cough, no difficulty swallowing. She gets some on and off chest discomfort from the left chest to the left arm and she states it is going on since her COVID infection. Has some mild shortness of breath. She uses 2 liters of oxygen at nighttime. Normal bladder movements. Ambulates with a walker, lives with her son and family. I ( Abel Ordoñez MD ) got a call for consult diverticulitis, I reviewed pt's H/P, labs, CT scan with pt, pt passed some gas this morning, LLQ pain, no fever, ALLERGIES: MANNITOL/SORBITOL AND XYLITOL. PAST MEDICAL HISTORY: As mentioned above. PAST SURGICAL HISTORY: Knee arthroplasty, colonoscopy, lumbosacral spine in jection, tubal ligation, appendectomy, cholecystectomy, total hysterectomy. MEDICATIONS: The patient is on Tylenol 1000 mg p.o. b.i.d., allopurinol 200 mg p.o. p.m., aspirin 81 mg p.o. a.m., calcitriol 0.25 mcg p.o. daily, Coreg 25 mg p.o. b.i.d., vitamin B12 500 mcg p.o. daily, diclofenac sodium 4 g topical q.i.d. p.r.n., Pepcid 20 mg p.o. p.m., Lasix 20 mg p.o. daily, Humulin 70/30, 30 units b.i.d., hydralazine 100 mg p.o. t.i.d., isosorbide dinitrate 20 mg p.o. t.i.d., ketoconazole shampoo weekly, lidocaine 1 patch daily p.r.n., omeprazole 20 mg p.o. daily, Zofran 4 mg p.o. q.6 hours p.r.n., rosuvastatin 10 mg p.o. at bedtime, Florastor 250 mg p.o. daily, simethicone 80 mg p.o. p.r.n. SOCIAL HISTORY: , currently lives with her son. No smoking, no alcohol, no drug use. REVIEW OF SYSTEMS: As per HPI. Rest of the review of systems is negative. Allergies Allergy/AdvReac Type Severity Reaction Status Date / Time mannitol AdvReac Verified 07/29/22 12:36 sorbitol AdvReac Verified 07/29/22 12:36 xylitol AdvReac Verified 07/29/22 12:36 Home Medications Medication Instructions Recorded Confirmed Type aspirin 81 mg tablet,delayed 81 mg PO QAM 12/30/18 08/05/22 History release rosuvastatin 10 mg tablet 10 mg PO HS 12/30/18 08/05/22 History famotidine 20 mg tablet (Pepcid) 20 mg PO QPM@1700 11/18/19 08/05/22 History lidocaine 4 % topical patch 1 patch topical DAILY PRN Pain 06/23/20 08/05/22 History (Salonpas (lidocaine)) diclofenac sodium 1 % topical gel 4 g topical QID PRN Pain 03/17/21 08/05/22 History cyanocobalamin (vitamin B-12) 500 500 mcg PO QAM #30 tabs 03/27/21 08/05/22 Rx mcg tablet carvedilol 25 mg tablet 25 mg PO BIDM 06/13/21 08/05/22 History hydralazine 100 mg tablet 100 mg PO TID 06/13/21 08/05/22 History Saccharomyces boulardii 250 mg 250 mg PO QAM 08/26/21 08/05/22 History capsule (Florastor) ondansetron 4 mg disintegrating 4 mg PO Q6H PRN nausea and 11/25/21 08/05/22 Rx tablet vomiting #14 tabs acetaminophen 500 mg tablet 1,000 mg PO AMHS 04/26/22 08/05/22 History (Tylenol Extra Strength) allopurinol 100 mg tablet 200 mg PO QPM 04/26/22 08/05/22 History simethicone 80 mg chewable tablet 80 mg PO DIRECTED PRN GAS 04/26/22 08/05/22 History ketoconazole 2 % shampoo 1 applic topical WK 05/14/22 08/05/22 History calcitriol 0.25 mcg capsule 0.25 mcg PO QAM #90 caps 07/18/22 08/05/22 Rx furosemide 20 mg tablet 20 mg PO DAILY #90 tabs 07/22/22 08/05/22 Rx insulin human U-100 NPH-regulr 30 unit subcut BID 08/05/22 08/05/22 History 70-30 mix 100 unit/mL subcutaneous susp (Humulin 70/30 U-100 Insulin) isosorbide dinitrate 20 mg tablet 20 mg PO TID 08/05/22 08/05/22 History omeprazole 20 mg capsule,delayed 20 mg PO QAM 08/05/22 08/05/22 History release Patient History Medical History CHF (congestive heart failure) follows with Kaushal Nieto PA-C Chronic back pain Chronic kidney disease (CKD), stage IV (severe) follows with Dr. Childress Diabetes mellitus, type 2 Diverticulitis large intestine hx Hearing deficit History of kidney stones HTN (hypertension) Hyperlipidemia Kidney cysts LEFT SIDE>BEING MONITORED BY UROLOGY [facility] Morbid obesity with BMI of 40.0-44.9, adult Nocturnal hypoxemia On home oxygen therapy 2L N/C at HS only Osteoarthritis Surgical History H/O: hysterectomy History of arthroscopy of left knee History of bilateral tubal ligation History of cardiac cath History of colonoscopy History of cystoscopy History of dilatation and curettage History of esophagogastroduodenoscopy (EGD) History of tooth extraction Hx of appendectomy Hx of cholecystectomy Nausea and vomiting after administration of anesthetic agent Family History Sister Family history of diabetes mellitus Sister Family history of diabetes mellitus Brother Family history of diabetes mellitus Family history of esophageal cancer Brother Family history of esophageal cancer Father Lung cancer Other No family history of adverse response to anesthesia No significant family history Social History Smoking Status: Never smoker Second Hand Exposure: No; Hx Alcohol Use: No Hx Substance Use: No Preferred Language: [place]de[place] Communication Ability: Effective Skin Washer Required: No Beliefs That Will Affect Care: None marital status: / Current Living Situation: Family Current Living Situation Comment: With Son and Daughter in-law How many Children do You have: 2 Feels Safe at Home: Yes Assistive Devices: Glasses, Oxygen - at Night and Walker Physical Exam Constitutional: WD/WN, vitals as above no distress Eyes: PERRL, conjunctivae normal, anicteric sclerae Neck: trachea midline, no thyromegaly Respiratory: normal respiratory effort, lungs clear to auscultation Cardiovascular: RRR, no murmur, no edema Gastrointestinal (Abdomen): soft, mild tenderness at LLQ, no rebound pain, no distend, BS +, Neurologic: patellar DTR's 2+ bilat, sensation intact Psychiatric: A+Ox3, euthymic affect Results & Data ([facility] [place]) Vital Signs (Past 12 Hours) Vital Signs Temp Pulse Pulse Resp BP Pulse Ox O2 Del Method 08/06/22 07:25 36.6 C 86 18 160/77 H 97 Nasal Cannula 08/06/22 04:00 37.1 C 88 18 150/68 H 97 Nasal Cannula 08/05/22 23:24 81 08/05/22 23:08 Nasal Cannula 08/05/22 23:08 36.5 C 85 16 173/72 H 95 Nasal Cannula O2 Flow Rate 08/06/22 07:25 2 08/06/22 04:00 2 08/05/22 23:24 08/05/22 23:08 2 08/05/22 23:08 2 Laboratory Results Abnormal lab results 08/05/22 08/05/22 08/05/22 Range/Units 15:25 15:25 18:30 WBC 17.52 H (4.8-10.8) K/ul RBC 3.36 L (3.93-5.22) M/uL Hgb 10.2 L (12.0-16.0) g/dl Hct 31.5 L (34.1-44.9) % RDW Std Deviation 52.6 H (36.4-46.3) fL RDW Coeff of Noemy 15.4 H (11.5-14.5) % Neut # (Auto) 14.84 H (1.4-6.5) K/uL Lymph # (Auto) 0.93 L (1.2-3.4) K/uL Logan # (Auto) 1.53 H (0.24-0.82) K/uL Immature Gran # (Auto) 0.10 H (0.00-0.02) K/uL Potassium 3.3 L (3.5-5.1) mmol/L BUN 58 H (6-23) mg/dl Creatinine 3.30 H (0.6-1.2) mg/dl Glucose 156 H (70-99(Fasting)) mg/dl POC Glucose (70-99) mg/dl Hemoglobin A1c (4.5-5.6) % Calcium 10.6 H (8.5-10.1) mg/dl Total Bilirubin 1.3 H (0.2-1.0) mg/dl AST 11 L (13-39) U/L Globulin 2.2 L (2.5-4.0) gm/dl Urine Protein 2+ H (Negative) U Epithel Cells (Auto) >30 H (0-5) /lpf 08/06/22 08/06/22 08/06/22 Range/Units 00:10 03:46 05:37 WBC 11.19 H (4.8-10.8) K/ul RBC 3.01 L (3.93-5.22) M/uL Hgb 9.3 L (12.0-16.0) g/dl Hct 27.8 L (34.1-44.9) % RDW Std Deviation 50.5 H (36.4-46.3) fL RDW Coeff of Noemy 15.0 H (11.5-14.5) % Neut # (Auto) 9.03 H (1.4-6.5) K/uL Lymph # (Auto) 0.77 L (1.2-3.4) K/uL Logan # (Auto) 1.19 H (0.24-0.82) K/uL Immature Gran # (Auto) 0.05 H (0.00-0.02) K/uL Potassium (3.5-5.1) mmol/L BUN (6-23) mg/dl Creatinine (0.6-1.2) mg/dl Glucose (70-99(Fasting)) mg/dl POC Glucose 129 H 156 H (70-99) mg/dl Hemoglobin A1c (4.5-5.6) % Calcium (8.5-10.1) mg/dl Total Bilirubin (0.2-1.0) mg/dl AST (13-39) U/L Globulin (2.5-4.0) gm/dl Urine Protein (Negative) U Epithel Cells (Auto) (0-5) /lpf 08/06/22 08/06/22 08/06/22 Range/Units 05:37 05:37 06:16 WBC (4.8-10.8) K/ul RBC (3.93-5.22) M/uL Hgb (12.0-16.0) g/dl Hct (34.1-44.9) % RDW Std Deviation (36.4-46.3) fL RDW Coeff of Noemy (11.5-14.5) % Neut # (Auto) (1.4-6.5) K/uL Lymph # (Auto) (1.2-3.4) K/uL Logan # (Auto) (0.24-0.82) K/uL Immature Gran # (Auto) (0.00-0.02) K/uL Potassium 3.1 L (3.5-5.1) mmol/L BUN 52 H (6-23) mg/dl Creatinine 2.92 H D (0.6-1.2) mg/dl Glucose 152 H (70-99(Fasting)) mg/dl POC Glucose 167 H (70-99) mg/dl Hemoglobin A1c 6.7 H (4.5-5.6) % Calcium (8.5-10.1) mg/dl Total Bilirubin (0.2-1.0) mg/dl AST (13-39) U/L Globulin (2.5-4.0) gm/dl Urine Protein (Negative) U Epithel Cells (Auto) (0-5) /lpf 08/06/22 Range/Units 07:39 WBC (4.8-10.8) K/ul RBC (3.93-5.22) M/uL Hgb (12.0-16.0) g/dl Hct (34.1-44.9) % RDW Std Deviation (36.4-46.3) fL RDW Coeff of Noemy (11.5-14.5) % Neut # (Auto) (1.4-6.5) K/uL Lymph # (Auto) (1.2-3.4) K/uL Logan # (Auto) (0.24-0.82) K/uL Immature Gran # (Auto) (0.00-0.02) K/uL Potassium (3.5-5.1) mmol/L BUN (6-23) mg/dl Creatinine (0.6-1.2) mg/dl Glucose (70-99(Fasting)) mg/dl POC Glucose 157 H (70-99) mg/dl Hemoglobin A1c (4.5-5.6) % Calcium (8.5-10.1) mg/dl Total Bilirubin (0.2-1.0) mg/dl AST (13-39) U/L Globulin (2.5-4.0) gm/dl Urine Protein (Negative) U Epithel Cells (Auto) (0-5) /lpf Diagnostic Findings CT abd pelvis wo con CLINICAL HISTORY: poss divertic TECHNIQUE: Helical axial images of the abdomen and pelvis were obtained. Automated dose lowering techniques and/or adjustment according to patient size were utilized for this exam. This exam was performed without intravenous contrast. CT DOSE: 869.52 mGy.cm COMPARISON: Comparison is made to CT abdomen pelvis 06/16/2022 FINDINGS: Lower chest: Cardiomegaly is seen. Atelectasis versus scarring is seen in the visualized lungs. Liver: A left hepatic cyst measuring 17 mm is noted. Gallbladder and biliary tree: Patient is status post cholecystectomy. No intra- or extrahepatic biliary ductal dilation. Pancreas: Unremarkable, no focal lesions. Spleen: Unremarkable. 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 Kidneys and ureters: The kidneys are atrophic. There is a large intermediate density lesion in the middle of the left kidney. Bladder: A tiny focus of air is seen which may be due to recent instrumentation. Reproductive organs: Numerous diverticula are seen. There is thickening and fat stranding in the sigmoid colon. No abscess or perforation is seen. Patient is status post appendectomy. Bowel: Unremarkable. Lymph nodes Retroperitoneal: Unremarkable. Pelvic: Unremarkable. Mesenteric: Unremarkable. Peritoneum: Normal. Vessels: Atherosclerotic calcifications are seen. Abdominal wall: Soft tissue stranding is seen in the anterior abdominal wall, unchanged from prior exam. Bones: Degenerative changes in the visualized spine. IMPRESSION: 1. Findings are compatible with acute diverticulitis without evidence of perforation or abscess. 2. Redemonstration of bilateral hyperdense renal cystic lesions. If not previously evaluated, ultrasound or MRI can be performed to exclude malignancy. 3. Additional findings as above.
[2022-08-06] MEDS: POTASSIUM CHLORIDE 20 MEQ/15 ML UDC PO SCH ×2 (11:34→17:46)
--- NOTE | 2022-08-06 13:08 | Hospitalist Progress Note ---
Date of Service August 06, 2022 Assessment & Plan (1) Diverticulitis: Plan: Acute diverticulitis with evidence of this on CT scan. Leukocytosis has improved on abx overnight, however clinical picture is about the same. No evidence of sepsis. Cont current abx. (2) C. difficile colitis: Plan: Has h/o c-diff in the past. Empirically getting vancomycin while awaiting stool culture results. (3) Acute renal failure superimposed on stage 4 chronic kidney disease: Plan: Presented with creatinine 3.3 and now has improved to 2/9 which is her baseline. Cont to monitor closely and renally dose medications as needed. (4) HTN (hypertension): Plan: Chronic, around goal. Cont home meds including coreg, hydralazine and isosorbide dinitrate. (5) Chronic diastolic (congestive) heart failure: Plan: chronic, euvolemic. Diuretic on hold and continue with this for now in setting of profuse watery diarrhea to avoid dehydration. (6) Anemia in CKD (chronic kidney disease): Plan: chronic, at baseline. No indication for transfusion at this time. (7) Sleep related hypoxia: Plan: supplemental oxygen at night per home regimen. (8) Morbid obesity: Plan: Diet and lifestyle modifications recommended. (9) DVT prophylaxis: Plan: Heparin Full Code Dispo-to home when diarrhea has resolved and she is tolerating PO DO Brian Doyle Hospitalist Admission and Anticipated Discharge Date Admission Date: August 05, 2022 Subjective 86-year-old female with diabetes CKD stage IV and history of C. difficile colitis presented with new onset explosive diarrhea and abdominal pain that is generalized ongoing since Monday. She is continuing to have explosive diarrhea and feels about the same as yesterday despite IV antibiotics overnight and vancomycin given empirically. Stool culture is pending. She is able to tolerate p.o. but not solid food at this time. Appetite is poor. +nausea requiring antiemetic therapy. We will update diet and changed to clears. Reports persistent pain in bilateral side of abdomen. Review of Systems Review of Systems: All systems reviewed negative except as indicated above. Physical Exam Physical Exam: CONSTITUTIONAL: obese, vitals as above, generally well-ap pearing, NAD EYES: normal conjunctivae, no scleral icterus ENT: external ear and nose normal, oropharynx clear, no TM abnormality, no maxillary or ethmoid sinus tenderness NECK: trachea midline, no lymphadenopathy RESPIRATORY: clear to auscultation bilaterally, no crackles, rales or wheezes, normal respiratory effort CARDIOVASCULAR: regular rate and rhythm, S1 and 2 heard without murmurs, ga llops or rubs, no JVD, no peripheral edema, CHEST: inspection of chest was normal GASTROINTESTINAL: soft, generally tender wtih some guarding, ND MUSCULOSKELETAL: strength 5/5 throughout, head is normocephalic and atraumatic, neck supple, normal palpation of chest wall without tenderness SKIN: warm and dry NEUROLOGIC: CN 2-12 grossly intact, no sensory deficit, normal cognition, normal speech, no tremor PSYCHIATRIC: alert cooperative and oriented to person, place and time. Euthymic mood, makes good eye contact, language grossly intact, recent and remote memory grossly intact. Results & Data Results & Data ([facility]) Vital Signs (Past 12 Hours) Vital Signs Temp Pulse Resp BP Pulse Ox O2 Del Method O2 Flow Rate 08/06/22 11:10 36.7 C 83 20 132/67 93 Room Air 08/06/22 07:25 36.6 C 86 18 160/77 H 97 Nasal Cannula 2 08/06/22 04:00 37.1 C 88 18 150/68 H 97 Nasal Cannula 2 Laboratory Results Short CBC 08/05/22 08/06/22 Range/Units 15:25 05:37 WBC 17.52 H 11.19 H (4.8-10.8) K/ul Hgb 10.2 L 9.3 L (12.0-16.0) g/dl Hct 31.5 L 27.8 L (34.1-44.9) % Plt Count 262 242 (130-400) K/uL BMP 08/05/22 08/06/22 15:25 05:37 Sodium 138 140 Potassium 3.3 L 3.1 L Chloride 99 103 Carbon Dioxide 29 27 BUN 58 H 52 H Creatinine 3.30 H 2.92 H D Glucose 156 H 152 H Calcium 10.6 H 9.6 Liver Function 08/05/22 Range/Units 15:25 Total Bilirubin 1.3 H (0.2-1.0) mg/dl AST 11 L (13-39) U/L ALT 7 (7-52) U/L Alkaline Phosphatase 49 (34-104) U/L Albumin 4.2 (3.4-5.0) gm/dl Urine 08/05/22 Range/Units 18:30 Urine Color Yellow Urine Appearance Clear (Clear) Urine pH 5.5 (4.5-7.5) Ur Specific [place] 1.014 (1.000-1.030) Urine Protein 2+ H (Negative) Urine Glucose (UA) Negative (Negative) Medications Administered Current Inpatient Medications Acetaminophen (Acetaminophen 325 Mg Tab) 650 mg PO Q4H PRN PRN Reason: Pain or Fever Stop: 09/04/22 23:24 Acetaminophen (Acetaminophen 500 Mg Tab) 1,000 mg PO AMHS [facility] Stop: 09/05/22 08:59 Last Admin: 08/06/22 09:25 Dose: 1,000 mg Allopurinol (Allopurinol 100 Mg Tab) 200 mg PO QPM [facility] Stop: 09/05/22 20:59 Aspirin (Aspirin 81 Mg Ectab) 81 mg PO QAM [facility] Stop: 09/05/22 08:59 Last Admin: 08/06/22 09:25 Dose: 81 mg Calcitriol (Calcitriol 0.25 Mcg Capsule) 0.25 mcg PO QAM [facility] Stop: 09/05/22 08:59 Last Admin: 08/06/22 09:24 Dose: 0.25 mcg Carvedilol (Carvedilol 25 Mg Tab) 25 mg PO BIDM [facility] Stop: 09/05/22 07:59 Last Admin: 08/06/22 09:18 Dose: 25 mg Cyanocobalamin (Cyanocobalamin (B-12) 500 Mcg Tablet) 500 mcg PO QAM [facility] Stop: 09/05/22 08:59 Last Admin: 08/06/22 09:24 Dose: 500 mcg Dextrose (Dextrose 50% 50 Ml Syringe) 25 - 50 ml IV UD PRN; Protocol PRN Reason: Hypoglycemia Protocol Stop: 09/05/22 00:14 Diclofenac Sodium (Diclofenac Sod 1% Gel 100 Gm Tube) 4 gm EXT QID PRN; Protocol PRN Reason: Pain Stop: 09/04/22 23:24 Enoxaparin Sodium (Enoxaparin Inj 30 Mg/0.3 Ml Syr) 30 mg SQ Q24H [facility] Stop: 09/05/22 08:59 Last Admin: 08/06/22 09:38 Dose: 30 mg Famotidine (Famotidine 20 Mg Tab) 20 mg PO QPM@1700 [facility] Stop: 09/05/22 16:59 Glucagon (Glucagon For Inj 1 Mg Vial) 1 mg IM UD PRN; Protocol PRN Reason: Hypoglycemia Protocol Stop: 09/05/22 00:14 Glucose (Glucose 40% Gel 15 Gm Tube) 15 - 30 gm PO UD PRN; Protocol PRN Reason: Hypoglycemia Protocol Stop: 09/05/22 00:14 Glucose (Glucose 10 Tab/Tube) 4 - 8 tab PO UD PRN; Protocol PRN Reason: Hypoglycemia Protocol Stop: 09/05/22 00:14 Hydralazine HCl (Hydralazine Tab 50 Mg Tab) 100 mg PO TID [facility] Stop: 09/05/22 08:59 Last Admin: 08/06/22 09:24 Dose: 100 mg Sodium Chloride (Nss 1000ml) 1,000 mls @ 75 mls/hr IV .[id number] [facility] Stop: 09/04/22 23:24 Last Admin: 08/06/22 00:28 Dose: 75 mls/hr Piperacillin Sod/Tazobactam (Sod 3.375 gm/ Dextrose) 115 mls @ 28.75 mls/hr IV Q12H [facility]; Protocol Stop: 08/16/22 07:59 Last Admin: 08/06/22 09:19 Dose: 28.8 mls/hr Insulin Aspart (Insulin Aspart Per Unit) 0 units SC Q6 [facility] Stop: 09/05/22 00:14 Last Admin: 08/06/22 11:34 Dose: 2 units Insulin Glargine (Lantus Per Unit Charge) 10 units SQ BID [facility] Stop: 09/05/22 08:59 Last Admin: 08/06/22 09:37 Dose: 10 units Isosorbide Dinitrate (Isosorbide Dinitrate 20 Mg Tab) 20 mg PO TID@0700,1200,1700 [facility] Stop: 09/05/22 06:59 Last Admin: 08/06/22 11:35 Dose: 20 mg Lidocaine (Lidocaine 5% 1 Patch) 1 patch TD DAILY PRN PRN Reason: Pain Stop: 09/05/22 00:06 Miscellaneous (Carbohydrates For Hypoglycemia ) 15 - 30 gm PO UD PRN PRN Reason: Hypoglycemia Treatment Stop: 09/05/22 00:14 Miscellaneous (Remove Lidoderm Patch) 1 each N/A DAILY@2100 [facility] Stop: 09/05/22 20:59 Morphine Sulfate (Morphine Sulfate 2 Mg/Ml Carp) 2 mg IV Q3H PRN PRN Reason: Pain Stop: 08/19/22 23:24 Nitroglycerin (Nitroglycerin Sl 0.4 Mg/Tab Tab) 0.4 mg SL UD PRN PRN Reason: Chest Pain Stop: 09/04/22 23:24 Ondansetron HCl (Ondansetron Inj 2 Mg/Ml 2 Ml Vial) 4 mg IV Q6H PRN PRN Reason: Nausea Stop: 09/04/22 23:24 Last Admin: 08/06/22 03:51 Dose: 4 mg Pantoprazole Sodium (Pantoprazole 40 Mg Tab) 40 mg PO QAM [facility] Stop: 09/05/22 08:59 Last Admin: 08/06/22 09:25 Dose: 40 mg Potassium Chloride (Potassium Chloride 20 Meq/15 Ml Udc) 40 meq PO Q6H [facility] Stop: 08/06/22 17:01 Last Admin: 08/06/22 11:34 Dose: 40 meq Raspberry (Raspberry Syrup 5 Ml Udp) 5 ml PO Q6 [facility] Stop: 08/16/22 00:00 Last Admin: 08/06/22 11:36 Dose: 5 ml Rosuvastatin Calcium (Rosuvastatin Calcium 10 Mg Tab) 10 mg PO HS [facility] Stop: 09/05/22 20:59 Saccharomyces Boulardii (Saccharomyces Boulardii 250 Mg Cap) 250 mg PO QAM [facility] Stop: 09/05/22 08:59 Last Admin: 08/06/22 09:23 Dose: 250 mg Simethicone (Simethicone 80 Mg Chew) 80 mg PO DAILY PRN PRN Reason: GAS Stop: 09/04/22 23:24 Vancomycin HCl (Vancomycin Hcl 125 Mg/2.5ml Soln) 125 mg PO Q6 [facility] Stop: 08/16/22 00:00 Last Admin: 08/06/22 11:37 Dose: 125 mg
--- NOTE | 2022-08-06 13:35 | Electrocardiogram Report ---
Test Reason : Blood Pressure : / mmHG Vent. Rate : 083 BPM Atrial Rate : 083 BPM P-R Int : 174 ms QRS Dur : 100 ms QT Int : 382 ms P-R-T Axes : 032 -09 032 degrees QTc Int : 448 ms Poor data quality, interpretation may be adversely affected Sinus rhythm Minimal voltage criteria for LVH, may be normal variant Abnormal ECG When compared with ECG of 14-MAY-2022 14:02, Nonspecific T wave abnormality, improved in Inferior leads Confirmed by Dorian Rushing ([id number]) on 08/06/2022 1:35:22 PM Referred By: Confirmed By:Dorian Rushing
[2022-08-06] MEDS: FAMOTIDINE 20 MG TAB PO SCH (17:46)
[2022-08-06 21:03] LABS: Adenovirus F 40/41 PCR Not Detected (NotDetected); Astrovirus PCR Not Detected (NotDetected); Campylobacter PCR Not Detected (NotDetected); Cryptosporidium PCR Not Detected (NotDetected); Cyclospora cayetanensis PCR Not Detected (NotDetected); Entamoeba histolytica PCR Not Detected (NotDetected); Enteroaggregative E.coli(EAEC) Not Detected (NotDetected); Enteropathogenic E.coli (EPEC) Not Detected (NotDetected); Enterotoxigenic E.coli (ETEC) Not Detected (NotDetected); Giardia lamblia PCR Not Detected (NotDetected); Norovirus GI/GII PCR Not Detected (NotDetected); Plesiomonas shigelloides PCR Not Detected (NotDetected); Rotavirus A PCR Not Detected (NotDetected); Salmonella PCR Not Detected (NotDetected); Sapovirus PCR Not Detected (NotDetected); Shiga-like Toxin E.coli (STEC) Not Detected (NotDetected); Shigella/Enteroinvasive E.coli Not Detected (NotDetected); Vibrio cholerae PCR Not Detected (NotDetected); Vibrio species PCR Not Detected (NotDetected); Yersinia enterocolitica PCR Not Detected (NotDetected)
[2022-08-06] MEDS ORDERED: Nursing to Pharmacy Communication SCH ×2 (21:30)
[2022-08-06] MEDS: allopurinoL 100 MG TAB PO SCH (21:33)
[2022-08-06] MEDS: ROSUVASTATIN CALCIUM 10 MG TAB PO SCH (21:35)
[2022-08-06] MEDS ORDERED: HEPARIN SOD 5,000 UNIT/0.5 ML VIAL SQ SCH (22:00)
[2022-08-06 22:26] LABS: Cdiff Antigen Positive; Cdiff Toxin A+B Positive Cdiff Toxin (Negative)
[2022-08-07] MEDS: RASPBERRY SYRUP 5 ML UDP PO SCH ×4 (00:13→17:58)
[2022-08-07] MEDS: VANCOMYCIN HCL 125 MG/2.5ML SOLN PO SCH ×4 (00:13→17:53)
[2022-08-07] MEDS: HEPARIN SOD 5,000 UNIT/0.5 ML VIAL SQ SCH ×3 (05:36→21:35)
[2022-08-07] MEDS: ISOSORBIDE DINITRATE 20 MG TAB PO SCH ×3 (05:36→17:59)
[2022-08-07 06:49] LABS: Basophils # (auto) 0.05 K/uL (0-0.2); Basophils % (auto) 0.5 %; Eosinophils # (auto) 0.24 K/uL (0-0.50); Eosinophils % (auto) 2.2 %; Hematocrit (blood only) 27.4 % (34.1-44.9); Hemoglobin 8.9 g/dl (12.0-16.0); Immature Granulocytes # (auto) 0.05 K/uL (0.00-0.02); Immature Granulocytes % (auto) 0.5 %; Lymphocytes % (auto) 7.5 %; Mean Corpuscular Hemoglobin 30.5 pg (25.0-34.0); Mean Corpuscular Hgb Conc 32.5 g/dL (32.0-36.0); Mean Corpuscular Volume 93.8 fL (80.0-100.0); Mean Platelet Volume 9.7 fL (9.4-12.3); Monocytes # (auto) 1.18 K/uL (0.24-0.82); Neutrophils # (auto) 8.36 K/uL (1.4-6.5); Neutrophils % (auto) 78.3 %; Platelet Count 231 K/uL (130-400); RDW Coefficient of Variation 15.1 % (11.5-14.5); Red Blood Count 2.92 M/uL (3.93-5.22); White Blood Count 10.68 K/ul (4.8-10.8)
[2022-08-07 07:21] LABS: BUN Creatinine Ratio 17.1 (10-20); Calcium 9.5 mg/dl (8.5-10.1); Creatinine Clr Calc Pharmacy 15.7 ml/min; Est GFR (African American) 16.5 ml/min; Est GFR (Non-African American) 14.2 ml/min; Magnesium 1.8 mg/dl (1.7-2.4); Phosphorus 2.2 mg/dl (2.5-4.9); Potassium 3.5 mmol/L (3.5-5.1)
--- NOTE | 2022-08-07 08:29 | Hospitalist Progress Note ---
Date of Service August 07, 2022 Assessment & Plan (1) C. difficile colitis: Plan: Proven active c-diff which was severe on admission. Improved on vancomycin PO QID. Considering bezlotoxumab adjuntive therapy as she has risk factors for recurrence and this is her second infection in the last 6 months. There is a risk of worsened heart failure with this infusion, but it appears to be indicated here. Will discuss with infectious disease who is consulted. Per p harmacy this requires ordering 24 hours in advance of being given, but is on formulary. (2) Diverticulitis: Plan: Acute diverticulitis with evidence of this on CT scan. Leukocytosis has improved on abx overnight, however clinical picture is about the same. No evidence of sepsis. Cont current abx. (3) Acute renal failure superimposed on stage 4 chronic kidney disease: Plan: Presented with creatinine 3.3 and now has improved to her baseline. Cont to monitor closely and renally dose medications as needed. (4) HTN (hypertension): Plan: Chronic, around goal. Cont home meds including coreg, hydralazine and isosorbide dinitrate. (5) Chronic diastolic (congestive) heart failure: Plan: chronic, euvolemic. Diuretic on hold and continue with this for now in setting of profuse watery diarrhea to avoid dehydration. Encouraged her to drink oral electrolytes and water (Powerade on bedside table). (6) Anemia in CKD (chronic kidney disease): Plan: chronic, at baseline. No indication for transfusion at this time. (7) Sleep related hypoxia: Plan: supplemental oxygen at night per home regimen. (8) Morbid obesity: Plan: Diet and lifestyle modifications recommended. (9) DVT prophylaxis: Plan: Heparin Full Code Dispo-to home when diarrhea has resolved and she is tolerating PO DO Brian Doyle Hospitalist Admission and Anticipated Discharge Date Admission Date: August 05, 2022 Subjective 86-year-old female with diabetes CKD stage IV presented with severe recurrent CDI abdominal pain has improved today she is hungry and now asking for solid food 10+ episodes of ongoing diarrhea. Review of Systems Review of Systems: All systems reviewed negative except as indicated above. Physical Exam Physical Exam: CONSTITUTIONAL: obese, vitals as above, generally well- appearing, NAD EYES: normal conjunctivae, no scleral icterus ENT: external ear and nose normal, oropharynx clear, no TM abnormality, no maxillary or ethmoid sinus tenderness NECK: trachea midline, no lymphadenopathy RESPIRATORY: clear to auscultation bilaterally, no crackles, rales or wheezes, normal respiratory effort CARDIOVASCULAR: regular rate and rhythm, S1 and 2 heard without murmurs, gallops or rubs, no JVD, no peripheral edema, CHEST: inspection of chest was normal GASTROINTESTINAL: soft, NT, ND MUSCULOSKELETAL: strength 5/5 throughout, head is normocephalic and atraumatic, neck supple, normal palpation of chest wall without tenderness SKIN: warm and dry NEUROLOGIC: CN 2-12 grossly intact, no sensory deficit, normal cognition, normal speech, no tremor PSYCHIATRIC: alert cooperative and oriented to person, place and time. Euthymic mood, makes good eye contact, language grossly intact, recent and remote memory grossly intact. Results & Data Results & Data ([facility]) Vital Signs (Past 12 Hours) Vital Signs Temp Pulse Pulse Resp BP Pulse Ox O2 Del Method 08/07/22 08:15 36.5 C 85 18 179/74 H 95 Room Air 08/07/22 08:00 36.8 C 77 18 139/65 98 Room Air 08/07/22 04:00 36.8 C 78 18 148/73 H 97 Nasal Cannula 08/07/22 04:23 Nasal Cannula 08/06/22 22:16 76 08/06/22 23:00 36.9 C 80 18 118/64 97 Nasal Cannula O2 Flow Rate 08/07/22 08:15 08/07/22 08:00 08/07/22 04:00 2 08/07/22 04:23 2 08/06/22 22:16 08/06/22 23:00 2 Laboratory Results Short CBC 08/07/22 Range/Units 06:36 WBC 10.68 (4.8-10.8) K/ul Hgb 8.9 L (12.0-16.0) g/dl Hct 27.4 L (34.1-44.9) % Plt Count 231 (130-400) K/uL BMP 08/07/22 06:36 Sodium 140 Potassium 3.5 Chloride 107 Carbon Dioxide 26 BUN 49 H Creatinine 2.86 H Glucose 153 H Calcium 9.5 Medications Administered Current Inpatient Medications Acetaminophen (Acetaminophen 325 Mg Tab) 650 mg PO Q4H PRN PRN Reason: Pain or Fever Stop: 09/04/22 23:24 Acetaminophen (Acetaminophen 500 Mg Tab) 1,000 mg PO AMHS [facility] Stop: 09/05/22 08:59 Last Admin: 08/07/22 09:39 Dose: 1,000 mg Allopurinol (Allopurinol 100 Mg Tab) 200 mg PO QPM [facility] Stop: 09/05/22 20:59 Last Admin: 08/06/22 21:33 Dose: 200 mg Aspirin (Aspirin 81 Mg Ectab) 81 mg PO QAM [facility] Stop: 09/05/22 08:59 Last Admin: 08/07/22 09:42 Dose: 81 mg Calcitriol (Calcitriol 0.25 Mcg Capsule) 0.25 mcg PO QAM [facility] Stop: 09/05/22 08:59 Last Admin: 08/07/22 09:42 Dose: 0.25 mcg Carvedilol (Carvedilol 25 Mg Tab) 25 mg PO BIDM [facility] Stop: 09/05/22 07:59 Last Admin: 08/07/22 17:59 Dose: 25 mg Cyanocobalamin (Cyanocobalamin (B-12) 500 Mcg Tablet) 500 mcg PO QAM [facility] Stop: 09/05/22 08:59 Last Admin: 08/07/22 09:42 Dose: 500 mcg Dextrose (Dextrose 50% 50 Ml Syringe) 25 - 50 ml IV UD PRN; Protocol PRN Reason: Hypoglycemia Protocol Stop: 09/05/22 00:14 Diclofenac Sodium (Diclofenac Sod 1% Gel 100 Gm Tube) 4 gm EXT QID PRN; Protocol PRN Reason: Pain Stop: 09/04/22 23:24 Famotidine (Famotidine 20 Mg Tab) 20 mg PO QPM@1700 [facility] Stop: 09/05/22 16:59 Last Admin: 08/07/22 17:59 Dose: 20 mg Glucagon (Glucagon For Inj 1 Mg Vial) 1 mg IM UD PRN; Protocol PRN Reason: Hypoglycemia Protocol Stop: 09/05/22 00:14 Glucose (Glucose 40% Gel 15 Gm Tube) 15 - 30 gm PO UD PRN; Protocol PRN Reason: Hypoglycemia Protocol Stop: 09/05/22 00:14 Glucose (Glucose 10 Tab/Tube) 4 - 8 tab PO UD PRN; Protocol PRN Reason: Hypoglycemia Protocol Stop: 09/05/22 00:14 Heparin Sodium (Porcine) (Heparin Sod 5,000 Unit/0.5 Ml Vial) 5,000 units SQ Q8 [facility] Stop: 09/06/22 05:59 Last Admin: 08/07/22 13:23 Dose: 5,000 units Hydralazine HCl (Hydralazine Tab 50 Mg Tab) 100 mg PO TID [facility] Stop: 09/05/22 08:59 Last Admin: 08/07/22 13:24 Dose: 100 mg Piperacillin Sod/Tazobactam (Sod 3.375 gm/ Dextrose) 115 mls @ 28.75 mls/hr IV Q12H [facility]; Protocol Stop: 08/16/22 07:59 Last Infusion: 08/07/22 15:55 Dose: Infused Insulin Aspart (Insulin Aspart Per Unit) 0 units SC ACHS [facility] Stop: 09/05/22 21:29 Last Admin: 08/07/22 17:39 Dose: 7 units Insulin Glargine (Lantus Per Unit Charge) 10 units SQ BID [facility] Stop: 09/05/22 08:59 Last Admin: 08/07/22 09:33 Dose: 10 units Isosorbide Dinitrate (Isosorbide Dinitrate 20 Mg Tab) 20 mg PO TID@0700,1200,1700 [facility] Stop: 09/05/22 06:59 Last Admin: 08/07/22 17:59 Dose: 20 mg Lidocaine (Lidocaine 5% 1 Patch) 1 patch TD DAILY PRN PRN Reason: Pain Stop: 09/05/22 00:06 Miscellaneous (Carbohydrates For Hypoglycemia ) 15 - 30 gm PO UD PRN PRN Reason: Hypoglycemia Treatment Stop: 09/05/22 00:14 Miscellaneous (Remove Lidoderm Patch) 1 each N/A DAILY@2100 [facility] Stop: 09/05/22 20:59 Last Admin: 08/06/22 21:35 Dose: 1 each Morphine Sulfate (Morphine Sulfate 2 Mg/Ml Carp) 2 mg IV Q3H PRN PRN Reason: Pain Stop: 08/19/22 23:24 Nitroglycerin (Nitroglycerin Sl 0.4 Mg/Tab Tab) 0.4 mg SL UD PRN PRN Reason: Chest Pain Stop: 09/04/22 23:24 Ondansetron HCl (Ondansetron Inj 2 Mg/Ml 2 Ml Vial) 4 mg IV Q6H PRN PRN Reason: Nausea Stop: 09/04/22 23:24 Last Admin: 08/06/22 16:25 Dose: 4 mg Pantoprazole Sodium (Pantoprazole 40 Mg Tab) 40 mg PO QAM [facility] Stop: 09/05/22 08:59 Last Admin: 08/07/22 09:40 Dose: 40 mg Raspberry (Raspberry Syrup 5 Ml Udp) 5 ml PO Q6 [facility] Stop: 08/16/22 00:00 Last Admin: 08/07/22 17:58 Dose: 5 ml Rosuvastatin Calcium (Rosuvastatin Calcium 10 Mg Tab) 10 mg PO HS [facility] Stop: 09/05/22 20:59 Last Admin: 08/06/22 21:35 Dose: 10 mg Saccharomyces Boulardii (Saccharomyces Boulardii 250 Mg Cap) 250 mg PO QAM [facility] Stop: 09/05/22 08:59 Last Admin: 08/07/22 09:41 Dose: 250 mg Simethicone (Simethicone 80 Mg Chew) 80 mg PO DAILY PRN PRN Reason: GAS Stop: 09/04/22 23:24 Vancomycin HCl (Vancomycin Hcl 125 Mg/2.5ml Soln) 125 mg PO Q6 [facility] Stop: 08/16/22 00:00 Last Admin: 08/07/22 17:53 Dose: 125 mg
[2022-08-07] MEDS ORDERED: MAGNESIUM SULFATE / D5W 1 GM/100 ML BAG IV ONE (08:45)
[2022-08-07] MEDS ORDERED: POTASSIUM CHLORIDE PWD 20 MEQ PACK PO ONE (08:45)
[2022-08-07] MEDS: INSULIN ASPART PER UNIT SC SCH ×4 (09:31→21:33)
[2022-08-07] MEDS: LANTUS PER UNIT CHARGE SQ SCH ×2 (09:33→21:34)
[2022-08-07] MEDS: carvediloL 25 MG TAB PO SCH ×2 (09:39→17:59)
[2022-08-07] MEDS: ACETAMINOPHEN 500 MG TAB PO SCH ×2 (09:39→20:24)
[2022-08-07] MEDS: PANTOprazole 40 MG TAB PO SCH (09:40)
[2022-08-07] MEDS: hydrALAZINE TAB 50 MG TAB PO SCH ×3 (09:40→20:25)
[2022-08-07] MEDS: SACCHAROMYCES BOULARDII 250 MG CAP PO SCH (09:41)
[2022-08-07] MEDS: ASPIRIN 81 MG ECTAB PO SCH (09:42)
[2022-08-07] MEDS: CALCITRIOL 0.25 MCG CAPSULE PO SCH (09:42)
[2022-08-07] MEDS: CYANOCOBALAMIN (B-12) 500 MCG TABLET PO SCH (09:42)
[2022-08-07] MEDS: PIPERACILLIN/TAZOBACTAM 3.375 GM in DEXTROSE 5% 100 ML IV SCH ×2 (11:03→20:24)
--- NOTE | 2022-08-07 12:30 | Surgery Progress Note ---
Date of Service August 07, 2022 Assessment & Plan (1) Diverticulitis: Plan: pt is a 86 year-old female who was admitted to hospital for diverticulitis, IMP: diverticulitis, plan, uncomplicated diverticulitis, no surgery indication now, pt is doing better, WBC down to 11,000 from 17,000, conservative treatment, IV fluid, IV antibiotic, control pain, repeat labs in morning, will F/U, 08/07/2022 12:39PM doing better, clear diet today, will F/U, february D/C home tomorrow, Admission and Anticipated Discharge Date Admission Date: August 05, 2022 Subjective 86-year-old female with diabetes CKD stage IV and history of C. difficile colitis presented with new onset explosive diarrhea and abdominal pain that is generalized ongoing since Monday. She is continuing to have explosive diarrhea and feels about the same as yesterday despite IV antibiotics overnight and vancomycin given empirically. Stool culture is pending. She is able to tolerate p.o. but not solid food at this time. Appetite is poor. +nausea requiring antiemetic therapy. We will update diet and changed to clears. Reports persistent pain in bilateral side of abdomen. 08/07/2022 12:38PM Dr. Ordoñez doing better, no significant abdominal pain, no fever, passed BM x3 Physical Exam Constitutional: WD/WN, vitals as above Eyes: PERRL, conjunctivae normal, anicteric sclerae Neck: trachea midline, no thyromegaly Respiratory: normal respiratory effort, lungs clear to auscultation Cardiovascular: RRR, no murmur, no edema Gastrointestinal (Abdomen): soft, NT, ND, BS +, Neurologic: patellar DTR's 2+ bilat, sensation intact Psychiatric: A+Ox3, euthymic affect Results & Data ([facility]) Vital Signs (Past 12 Hours) Vital Signs Temp Pulse Resp BP Pulse Ox O2 Del Method O2 Flow Rate 08/07/22 08:15 36.5 C 85 18 179/74 H 95 Room Air 08/07/22 08:00 36.8 C 77 18 139/65 98 Room Air 08/07/22 04:00 36.8 C 78 18 148/73 H 97 Nasal Cannula 2 08/07/22 04:23 Nasal Cannula 2 Laboratory Results Abnormal lab results 08/06/22 08/06/22 08/07/22 Range/Units 19:29 20:30 06:36 RBC 2.92 L (3.93-5.22) M/uL Hgb 8.9 L (12.0-16.0) g/dl Hct 27.4 L (34.1-44.9) % RDW Std Deviation 52.0 H (36.4-46.3) fL RDW Coeff of Noemy 15.1 H (11.5-14.5) % Neut # (Auto) 8.36 H (1.4-6.5) K/uL Lymph # (Auto) 0.80 L (1.2-3.4) K/uL [place] # (Auto) 1.18 H (0.24-0.82) K/uL Immature Gran # (Auto) 0.05 H (0.00-0.02) K/uL BUN (6-23) mg/dl Creatinine (0.6-1.2) mg/dl Glucose (70-99(Fasting)) mg/dl POC Glucose 234 H (70-99) mg/dl Phosphorus (2.5-4.9) mg/dl Stl C.difficile Tox A&B Positive Cdiff Toxin A* (Negative) Stl C. diff Tox A/B PCR C.diff Gene Detected A (NotDetected) 08/07/22 08/07/22 08/07/22 Range/Units 06:36 07:50 11:31 RBC (3.93-5.22) M/uL Hgb (12.0-16.0) g/dl Hct (34.1-44.9) % RDW Std Deviation (36.4-46.3) fL RDW Coeff of Noemy (11.5-14.5) % Neut # (Auto) (1.4-6.5) K/uL Lymph # (Auto) (1.2-3.4) K/uL [place] # (Auto) (0.24-0.82) K/uL Immature Gran # (Auto) (0.00-0.02) K/uL BUN 49 H (6-23) mg/dl Creatinine 2.86 H (0.6-1.2) mg/dl Glucose 153 H (70-99(Fasting)) mg/dl POC Glucose 173 H 255 H (70-99) mg/dl Phosphorus 2.2 L (2.5-4.9) mg/dl Stl C.difficile Tox A&B (Negative) Stl C. diff Tox A/B PCR (NotDetected)
[2022-08-07] MEDS: FAMOTIDINE 20 MG TAB PO SCH (17:59)
[2022-08-07] MEDS: allopurinoL 100 MG TAB PO SCH (20:25)
[2022-08-07] MEDS: ROSUVASTATIN CALCIUM 10 MG TAB PO SCH (21:34)
[2022-08-08] MEDS: RASPBERRY SYRUP 5 ML UDP PO SCH ×4 (00:10→18:15)
[2022-08-08] MEDS: VANCOMYCIN HCL 125 MG/2.5ML SOLN PO SCH ×4 (00:11→18:20)
[2022-08-08] MEDS: HEPARIN SOD 5,000 UNIT/0.5 ML VIAL SQ SCH ×3 (05:29→21:12)
[2022-08-08] MEDS: ISOSORBIDE DINITRATE 20 MG TAB PO SCH ×3 (06:14→18:13)
[2022-08-08 07:07] LABS: Basophils # (auto) 0.02 K/uL (0-0.2); Basophils % (auto) 0.2 %; Eosinophils # (auto) 0.43 K/uL (0-0.50); Eosinophils % (auto) 5.3 %; Hematocrit (blood only) 27.2 % (34.1-44.9); Hemoglobin 8.8 g/dl (12.0-16.0); Immature Granulocytes # (auto) 0.06 K/uL (0.00-0.02); Immature Granulocytes % (auto) 0.7 %; Lymphocytes # (auto) 0.99 K/uL (1.2-3.4); Lymphocytes % (auto) 12.2 %; Mean Corpuscular Hemoglobin 29.8 pg (25.0-34.0); Mean Corpuscular Hgb Conc 32.4 g/dL (32.0-36.0); Mean Corpuscular Volume 92.2 fL (80.0-100.0); Monocytes # (auto) 0.88 K/uL (0.24-0.82); Monocytes % (auto) 10.9 %; Neutrophils # (auto) 5.71 K/uL (1.4-6.5); Neutrophils % (auto) 70.7 %; Platelet Count 244 K/uL (130-400); RDW Coefficient of Variation 14.9 % (11.5-14.5); RDW Standard Deviation 50.2 fL (36.4-46.3); Red Blood Count 2.95 M/uL (3.93-5.22); White Blood Count 8.09 K/ul (4.8-10.8)
[2022-08-08 07:29] LABS: BUN Creatinine Ratio 15.4 (10-20); Calcium 9.5 mg/dl (8.5-10.1); Creatinine Clr Calc Pharmacy 16.9 ml/min; Est GFR (Non-African American) 15.5 ml/min; Potassium 3.6 mmol/L (3.5-5.1)
[2022-08-08] MEDS: PIPERACILLIN/TAZOBACTAM 3.375 GM in DEXTROSE 5% 100 ML IV SCH (08:56)
[2022-08-08] MEDS: INSULIN ASPART PER UNIT SC SCH ×4 (08:57→21:10)
[2022-08-08] MEDS: carvediloL 25 MG TAB PO SCH ×2 (09:01→18:14)
[2022-08-08] MEDS: CYANOCOBALAMIN (B-12) 500 MCG TABLET PO SCH (09:02)
[2022-08-08] MEDS: ASPIRIN 81 MG ECTAB PO SCH (09:02)
[2022-08-08] MEDS: PANTOprazole 40 MG TAB PO SCH (09:02)
[2022-08-08] MEDS: SACCHAROMYCES BOULARDII 250 MG CAP PO SCH (09:03)
[2022-08-08] MEDS: CALCITRIOL 0.25 MCG CAPSULE PO SCH (09:03)
[2022-08-08] MEDS: ACETAMINOPHEN 500 MG TAB PO SCH ×2 (09:04→21:11)
[2022-08-08] MEDS: hydrALAZINE TAB 50 MG TAB PO SCH ×3 (09:04→21:11)
[2022-08-08] MEDS: LANTUS PER UNIT CHARGE SQ SCH ×2 (09:06→21:10)
--- NOTE | 2022-08-08 09:06 | Surgery Progress Note ---
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 08/08/2022 9:03AM pt feels better, less abdominal pain, no fever, no bloody stool, Physical Exam Constitutional: WD/WN, vitals as above Eyes: PERRL, conjunctivae normal, anicteric sclerae Neck: trachea midline, no thyromegaly Respiratory: normal respiratory effort, lungs clear to auscultation Cardiovascular: RRR, no murmur, no edema Gastrointestinal (Abdomen): soft, mild tenderness at LLQ, no rebound pain, no distend, BS +, Neurologic: patellar DTR's 2+ bilat, sensation intact Psychiatric: A+Ox3, euthymic affect Results & Data ([facility]) Vital Signs (Past 12 Hours) Vital Signs Temp Pulse Pulse Resp BP Pulse Ox O2 Del Method 08/08/22 07:53 71 08/08/22 07:51 36.7 C 73 18 180/66 H 94 08/08/22 04:03 36.7 C 74 20 159/74 H 98 08/07/22 23:00 Room Air, Nasal Cannula 08/07/22 22:18 72 08/08/22 00:20 36.6 C 59 L 18 147/59 H 96 O2 Flow Rate 08/08/22 07:53 08/08/22 07:51 08/08/22 04:03 2 08/07/22 23:00 2 08/07/22 22:18 08/08/22 00:20 2 Laboratory Results Abnormal lab results 08/07/22 08/07/22 08/07/22 Range/Units 11:31 16:33 20:25 RBC (3.93-5.22) M/uL Hgb (12.0-16.0) g/dl Hct (34.1-44.9) % RDW Std Deviation (36.4-46.3) fL RDW Coeff of Noemy (11.5-14.5) % Lymph # (Auto) (1.2-3.4) K/uL [place] # (Auto) (0.24-0.82) K/uL Immature Gran # (Auto) (0.00-0.02) K/uL Chloride (98-107) mmol/L BUN (6-23) mg/dl Creatinine (0.6-1.2) mg/dl Glucose (70-99(Fasting)) mg/dl POC Glucose 255 H 164 H 213 H (70-99) mg/dl 08/08/22 08/08/22 08/08/22 Range/Units 06:21 06:21 07:32 RBC 2.95 L (3.93-5.22) M/uL Hgb 8.8 L (12.0-16.0) g/dl Hct 27.2 L (34.1-44.9) % RDW Std Deviation 50.2 H (36.4-46.3) fL RDW Coeff of Noemy 14.9 H (11.5-14.5) % Lymph # (Auto) 0.99 L (1.2-3.4) K/uL Orange # (Auto) 0.88 H (0.24-0.82) K/uL Immature Gran # (Auto) 0.06 H (0.00-0.02) K/uL Chloride 109 H (98-107) mmol/L BUN 41 H (6-23) mg/dl Creatinine 2.66 H (0.6-1.2) mg/dl Glucose 126 H (70-99(Fasting)) mg/dl POC Glucose 154 H (70-99) mg/dl
--- NOTE | 2022-08-08 17:59 | Hospitalist Progress Note ---
Date of Service August 08, 2022 Assessment & Plan (1) C. difficile colitis: Plan: Proven active c-diff which was severe on admission. Improved on vancomycin PO QID. Cont vanc PO per ID with taper. Consider FMT as outpatient. (2) Diverticulitis: Plan: Acute diverticulitis with evidence of this on CT scan. Clinical picture has improved. No evidence of sepsis. Cont abx. (3) Acute renal failure superimposed on stage 4 chronic kidney disease: Plan: Presented with creatinine 3.3 and now has improved to her baseline. Cont to monitor closely and renally dose medications as needed. (4) HTN (hypertension): Plan: Chronic, around goal. Cont home meds including coreg, hydralazine and isosorbide dinitrate. (5) Chronic diastolic (congestive) heart failure: Plan: chronic, euvolemic. Diuretic remains on hold in setting of loose stool. (6) Anemia in CKD (chronic kidney disease): Plan: chronic, at baseline. No indication for transfusion at this time. (7) Sleep related hypoxia: Plan: supplemental oxygen at night per home regimen. (8) Morbid obesity: Plan: Diet and lifestyle modifications recommended. (9) DVT prophylaxis: Plan: Heparin Full Code Dispo-to home in next 1-2 days. PT[facility]OT ordered. [facility] Admission and Anticipated Discharge Date Admission Date: August 05, 2022 Subjective 86-year-old female with diabetes CKD stage IV presented with severe recurrent CDI abdominal pain has resolved today Tolerating solid food Only had 1 episode of diarrhea this morning ID consult with recommendations were placed Patient feels generally some weakness and is not ready to go yet today. Review of Systems Review of Systems: All systems reviewed negative except as indicated above. Physical Exam Physical Exam: CONSTITUTIONAL: obese, vitals as above, generally well- appearing, NAD EYES: normal conjunctivae, no scleral icterus ENT: external ear and nose normal, oropharynx clear, no TM abnormality, no maxillary or ethmoid sinus tenderness NECK: trachea midline, no lymphadenopathy RESPIRATORY: clear to auscultation bilaterally, no crackles, rales or wheezes, normal respiratory effort CARDIOVASCULAR: regular rate and rhythm, S1 and 2 heard without murmurs, gallops or rubs, no JVD, no peripheral edema, CHEST: inspection of chest was normal GASTROINTESTINAL: soft, NT, ND MUSCULOSKELETAL: strength 5/5 throughout, head is normocephalic and atraumatic, neck supple, normal palpation of chest wall without tenderness SKIN: warm and dry NEUROLOGIC: CN 2-12 grossly intact, no sensory deficit, normal cognition, normal speech, no tremor PSYCHIATRIC: alert cooperative and oriented to person, place and time. Euthymic mood, makes good eye contact, language grossly intact, recent and remote memory grossly intact. Results & Data Results & Data ([facility]) Vital Signs (Past 12 Hours) Vital Signs Temp Pulse Pulse Resp BP Pulse Ox O2 Del Method 08/08/22 16:22 68 08/08/22 15:59 36.6 C 78 18 165/71 H 97 08/08/22 08:00 Room Air 08/08/22 11:31 36.4 C L 70 18 185/72 H 94 Room Air 08/08/22 07:53 71 08/08/22 07:51 36.7 C 73 18 180/66 H 94 Laboratory Results Short CBC 08/08/22 Range/Units 06:21 WBC 8.09 (4.8-10.8) K/ul Hgb 8.8 L (12.0-16.0) g/dl Hct 27.2 L (34.1-44.9) % Plt Count 244 (130-400) K/uL BMP 08/08/22 06:21 Sodium 140 Potassium 3.6 Chloride 109 H Carbon Dioxide 26 BUN 41 H Creatinine 2.66 H Glucose 126 H Calcium 9.5 Medications Administered Current Inpatient Medications Acetaminophen (Acetaminophen 325 Mg Tab) 650 mg PO Q4H PRN PRN Reason: Pain or Fever Stop: 09/04/22 23:24 Acetaminophen (Acetaminophen 500 Mg Tab) 1,000 mg PO AMHS [facility] Stop: 09/05/22 08:59 Last Admin: 08/08/22 09:04 Dose: 1,000 mg Allopurinol (Allopurinol 100 Mg Tab) 200 mg PO QPM [facility] Stop: 09/05/22 20:59 Last Admin: 08/07/22 20:25 Dose: 200 mg Aspirin (Aspirin 81 Mg Ectab) 81 mg PO QAM [facility] Stop: 09/05/22 08:59 Last Admin: 08/08/22 09:02 Dose: 81 mg Calcitriol (Calcitriol 0.25 Mcg Capsule) 0.25 mcg PO QAM [facility] Stop: 09/05/22 08:59 Last Admin: 08/08/22 09:03 Dose: 0.25 mcg Carvedilol (Carvedilol 25 Mg Tab) 25 mg PO BIDM [facility] Stop: 09/05/22 07:59 Last Admin: 08/08/22 09:01 Dose: 25 mg Cyanocobalamin (Cyanocobalamin (B-12) 500 Mcg Tablet) 500 mcg PO QAM [facility] Stop: 09/05/22 08:59 Last Admin: 08/08/22 09:02 Dose: 500 mcg Dextrose (Dextrose 50% 50 Ml Syringe) 25 - 50 ml IV UD PRN; Protocol PRN Reason: Hypoglycemia Protocol Stop: 09/05/22 00:14 Diclofenac Sodium (Diclofenac Sod 1% Gel 100 Gm Tube) 4 gm EXT QID PRN; Protocol PRN Reason: Pain Stop: 09/04/22 23:24 Famotidine (Famotidine 20 Mg Tab) 20 mg PO QPM@1700 [facility] Stop: 09/05/22 16:59 Last Admin: 08/07/22 17:59 Dose: 20 mg Glucagon (Glucagon For Inj 1 Mg Vial) 1 mg IM UD PRN; Protocol PRN Reason: Hypoglycemia Protocol Stop: 09/05/22 00:14 Glucose (Glucose 40% Gel 15 Gm Tube) 15 - 30 gm PO UD PRN; Protocol PRN Reason: Hypoglycemia Protocol Stop: 09/05/22 00:14 Glucose (Glucose 10 Tab/Tube) 4 - 8 tab PO UD PRN; Protocol PRN Reason: Hypoglycemia Protocol Stop: 09/05/22 00:14 Heparin Sodium (Porcine) (Heparin Sod 5,000 Unit/0.5 Ml Vial) 5,000 units SQ Q8 [facility] Stop: 09/06/22 05:59 Last Admin: 08/08/22 15:45 Dose: 5,000 units Hydralazine HCl (Hydralazine Tab 50 Mg Tab) 100 mg PO TID [facility] Stop: 09/05/22 08:59 Last Admin: 08/08/22 14:00 Dose: 100 mg Piperacillin Sod/Tazobactam (Sod 3.375 gm/ Dextrose) 115 mls @ 28.75 mls/hr IV Q12H [facility]; Protocol Stop: 08/16/22 07:59 Last Infusion: 08/08/22 12:56 Dose: Infused Insulin Aspart (Insulin Aspart Per Unit) 0 units SC ACHS [facility] Stop: 09/05/22 21:29 Last Admin: 08/08/22 12:19 Dose: 10 units Insulin Glargine (Lantus Per Unit Charge) 10 units SQ BID [facility] Stop: 09/05/22 08:59 Last Admin: 08/08/22 09:06 Dose: 10 units Isosorbide Dinitrate (Isosorbide Dinitrate 20 Mg Tab) 20 mg PO TID@0700,1200,1700 [facility] Stop: 09/05/22 06:59 Last Admin: 08/08/22 12:18 Dose: 20 mg Lidocaine (Lidocaine 5% 1 Patch) 1 patch TD DAILY PRN PRN Reason: Pain Stop: 09/05/22 00:06 Miscellaneous (Carbohydrates For Hypoglycemia ) 15 - 30 gm PO UD PRN PRN Reason: Hypoglycemia Treatment Stop: 09/05/22 00:14 Miscellaneous (Remove Lidoderm Patch) 1 each N/A DAILY@2100 [facility] Stop: 09/05/22 20:59 Last Admin: 08/07/22 21:35 Dose: Not Given Morphine Sulfate (Morphine Sulfate 2 Mg/Ml Carp) 2 mg IV Q3H PRN PRN Reason: Pain Stop: 08/19/22 23:24 Nitroglycerin (Nitroglycerin Sl 0.4 Mg/Tab Tab) 0.4 mg SL UD PRN PRN Reason: Chest Pain Stop: 09/04/22 23:24 Ondansetron HCl (Ondansetron Inj 2 Mg/Ml 2 Ml Vial) 4 mg IV Q6H PRN PRN Reason: Nausea Stop: 09/04/22 23:24 Last Admin: 08/06/22 16:25 Dose: 4 mg Pantoprazole Sodium (Pantoprazole 40 Mg Tab) 40 mg PO QAM [facility] Stop: 09/05/22 08:59 Last Admin: 08/08/22 09:02 Dose: 40 mg Raspberry (Raspberry Syrup 5 Ml Udp) 5 ml PO Q6 [facility] Stop: 08/16/22 00:00 Last Admin: 08/08/22 12:17 Dose: 5 ml Rosuvastatin Calcium (Rosuvastatin Calcium 10 Mg Tab) 10 mg PO HS [facility] Stop: 09/05/22 20:59 Last Admin: 08/07/22 21:34 Dose: 10 mg Saccharomyces Boulardii (Saccharomyces Boulardii 250 Mg Cap) 250 mg PO QAM [facility] Stop: 09/05/22 08:59 Last Admin: 08/08/22 09:03 Dose: 250 mg Simethicone (Simethicone 80 Mg Chew) 80 mg PO DAILY PRN PRN Reason: GAS Stop: 09/04/22 23:24 Vancomycin HCl (Vancomycin Hcl 125 Mg/2.5ml Soln) 125 mg PO Q6 [facility] Stop: 08/16/22 00:00 Last Admin: 08/08/22 12:17 Dose: 125 mg
[2022-08-08] MEDS: FAMOTIDINE 20 MG TAB PO SCH (18:15)
[2022-08-08] MEDS: allopurinoL 100 MG TAB PO SCH (21:11)
[2022-08-08] MEDS: ROSUVASTATIN CALCIUM 10 MG TAB PO SCH (21:12)
[2022-08-09] MEDS: VANCOMYCIN HCL 125 MG/2.5ML SOLN PO SCH ×5 (06:26→23:17)
[2022-08-09] MEDS: ISOSORBIDE DINITRATE 20 MG TAB PO SCH ×3 (06:26→18:02)
[2022-08-09] MEDS: RASPBERRY SYRUP 5 ML UDP PO SCH ×5 (06:26→23:17)
[2022-08-09] MEDS: HEPARIN SOD 5,000 UNIT/0.5 ML VIAL SQ SCH ×3 (06:26→21:03)
[2022-08-09 07:55] LABS: Hematocrit (blood only) 27.3 % (34.1-44.9); Hemoglobin 9.1 g/dl (12.0-16.0); Mean Corpuscular Hemoglobin 30.2 pg (25.0-34.0); Mean Corpuscular Hgb Conc 33.3 g/dL (32.0-36.0); Mean Corpuscular Volume 90.7 fL (80.0-100.0); Platelet Count 271 K/uL (130-400); RDW Coefficient of Variation 14.7 % (11.5-14.5); Red Blood Count 3.01 M/uL (3.93-5.22); White Blood Count 7.05 K/ul (4.8-10.8)
[2022-08-09 08:21] LABS: BUN Creatinine Ratio 16.1 (10-20); Calcium 9.3 mg/dl (8.5-10.1); Creatinine Clr Calc Pharmacy 19.1 ml/min; Est GFR (African American) 20.8 ml/min; Est GFR (Non-African American) 17.9 ml/min; Magnesium 1.7 mg/dl (1.7-2.4); Potassium 3.4 mmol/L (3.5-5.1)
[2022-08-09] MEDS: CYANOCOBALAMIN (B-12) 500 MCG TABLET PO SCH (08:35)
[2022-08-09] MEDS: AMOXICILLIN/CLAVULANATE 500 MG TAB PO SCH ×2 (08:35→19:16)
[2022-08-09] MEDS: ACETAMINOPHEN 500 MG TAB PO SCH ×2 (08:35→21:01)
[2022-08-09] MEDS: hydrALAZINE TAB 50 MG TAB PO SCH ×3 (08:36→21:02)
[2022-08-09] MEDS: ASPIRIN 81 MG ECTAB PO SCH (08:37)
[2022-08-09] MEDS: CALCITRIOL 0.25 MCG CAPSULE PO SCH (08:37)
[2022-08-09] MEDS: carvediloL 25 MG TAB PO SCH ×2 (08:37→18:04)
[2022-08-09] MEDS: SACCHAROMYCES BOULARDII 250 MG CAP PO SCH (08:37)
[2022-08-09] MEDS: PANTOprazole 40 MG TAB PO SCH (08:37)
[2022-08-09] MEDS: LANTUS PER UNIT CHARGE SQ SCH ×2 (08:38→21:01)
[2022-08-09] MEDS: INSULIN ASPART PER UNIT SC SCH ×4 (08:39→21:01)
[2022-08-09] MEDS ORDERED: POTASSIUM CHLORIDE PWD 20 MEQ PACK PO ONE (08:57)
[2022-08-09] MEDS ORDERED: MAGNESIUM SULFATE / D5W 1 GM/100 ML BAG IV ONE (08:58)
[2022-08-09] MEDS: FUROSEMIDE 20 MG TAB PO SCH (10:13)
--- NOTE | 2022-08-09 10:47 | Surgery Progress Note ---
Date of Service August 09, 2022 Assessment & Plan (1) Diverticulitis: Plan: Uncomplicated diverticulitis with recurrent c. diff infection no leukocytosis abdominal pain resolved afebrile tolerated soft diet Plan: Continue current medical management of diverticulitis c. diff infection management as recommended by infectious disease our services signing off, call with questions/concerns. Discussed with Dr. Walton who agrees with above. Admission and Anticipated Discharge Date Admission Date: August 05, 2022 Subjective feeling better today no abdominal pain, n,v tolerating soft diet bowel movements are decreasing in frequency and becoming more formed ready to go home Physical Exam Constitutional: WD/WN, vitals as above + obese; no acute distress and not ill appearing Neck: normal visual inspection and trachea midline Respiratory: normal respiratory effort; no respiratory distress Gastrointestinal (Abdomen): Inspection/Auscultation: abdomen normal to inspection; abdomen not distended Percussion/Palpation: abdomen soft; abdomen nontender, no guarding and abdomen not rigid Skin: no rashes, warm and dry Psychiatric: A+Ox3, euthymic affect Results & Data ([facility]) Vital Signs (Past 12 Hours) Vital Signs Temp Pulse Pulse Resp BP Pulse Ox O2 Del Method 08/09/22 08:26 Room Air 08/09/22 07:45 36.4 C L 71 18 172/67 H 95 Room Air 08/09/22 07:05 71 08/09/22 04:00 36.6 C 66 18 160/64 H 98 Nasal Cannula 08/09/22 00:31 72 08/08/22 23:50 Nasal Cannula 08/08/22 23:32 36.7 C 68 18 147/62 H 98 Nasal Cannula O2 Flow Rate 08/09/22 08:26 08/09/22 07:45 08/09/22 07:05 08/09/22 04:00 2 08/09/22 00:31 08/08/22 23:50 2 08/08/22 23:32 2 Laboratory Results 08/09/22 08/09/22 08/09/22 Range/Units 07:44 07:22 07:22 WBC 7.05 (4.8-10.8) K/ul RBC 3.01 L (3.93-5.22) M/uL Hgb 9.1 L (12.0-16.0) g/dl Hct 27.3 L (34.1-44.9) % MCV 90.7 (80.0-100.0) fL MCH 30.2 (25.0-34.0) pg MCHC 33.3 (32.0-36.0) g/dL RDW Std Deviation 49.0 H (36.4-46.3) fL RDW Coeff of Noemy 14.7 H (11.5-14.5) % Plt Count 271 (130-400) K/uL MPV 10.0 (9.4-12.3) fL Sodium 138 (136-145) mmol/L Potassium 3.4 L (3.5-5.1) mmol/L Chloride 107 (98-107) mmol/L Carbon Dioxide 25 (21-32) mmol/L Anion Gap 6 (3-11) BUN 38 H (6-23) mg/dl Creatinine 2.36 H D (0.6-1.2) mg/dl Est Cr Clr Drug Dosing 19.1 ml/min Est GFR ( Amer) 20.8 ml/min Est GFR (Non-Af Amer) 17.9 ml/min BUN/Creatinine Ratio 16.1 (10-20) Glucose 134 H (70-99(Fasting)) mg/dl POC Glucose 137 H (70-99) mg/dl Calcium 9.3 (8.5-10.1) mg/dl Magnesium 1.7 (1.7-2.4) mg/dl 08/08/22 08/08/22 08/08/22 Range/Units 20:27 16:46 11:17 WBC (4.8-10.8) K/ul RBC (3.93-5.22) M/uL Hgb (12.0-16.0) g/dl Hct (34.1-44.9) % MCV (80.0-100.0) fL MCH (25.0-34.0) pg MCHC (32.0-36.0) g/dL RDW Std Deviation (36.4-46.3) fL RDW Coeff of Noemy (11.5-14.5) % Plt Count (130-400) K/uL MPV (9.4-12.3) fL Sodium (136-145) mmol/L Potassium (3.5-5.1) mmol/L Chloride (98-107) mmol/L Carbon Dioxide (21-32) mmol/L Anion Gap (3-11) BUN (6-23) mg/dl Creatinine (0.6-1.2) mg/dl Est Cr Clr Drug Dosing ml/min Est GFR ( Amer) ml/min Est GFR (Non-Af Amer) ml/min BUN/Creatinine Ratio (10-20) Glucose (70-99(Fasting)) mg/dl POC Glucose 240 H 158 H 249 H (70-99) mg/dl Calcium (8.5-10.1) mg/dl Magnesium (1.7-2.4) mg/dl
--- NOTE | 2022-08-09 12:51 | XRay Report ---
SINGLE VIEW CHEST CLINICAL HISTORY: Dyspnea. FINDINGS: An AP, portable, upright chest radiograph is compared to chest x-ray and chest CT dated 05/24. The heart is enlarged noting atherosclerotic calcification of the thoracic aorta. The pulmona ry vasculature is noncongested. The lungs and pleural spaces are clear noting bibasilar atelectasis. No pneumothorax is seen. The skeletal structures are osteopenic. The bony thorax is grossly intact. IMPRESSION: Cardiomegaly with no active disease in the chest. ACT 112: Negative or not required by law. Electronically signed by: Marco Morocho M.D. 08/09/2022 12:50 PM
[2022-08-09] MEDS ORDERED: POTASSIUM CHLORIDE CRTAB 20 MEQ TABCR PO STA (13:32)
[2022-08-09] MEDS ORDERED: FUROSEMIDE INJ 20 MG/2 ML VIAL IV ONE (13:32)
--- NOTE | 2022-08-09 13:33 | Hospitalist Progress Note ---
Date of Service August 09, 2022 Assessment & Plan (1) C. difficile colitis: Plan: Proven active c-diff which was severe on admission. Improved on vancomycin PO QID. Cont vanc PO per ID with taper. Consider FMT as outpatient. Discussed the option of bezlotoxumab adjunctive therapy with ID who doesn't agree with it's use at this time. She still has some loose stool overnight (3 eipsodes) but stool is more formed and abdominal pain is resolved. Stop PPI at this time. Cont vanc taper. (2) Diverticulitis: Plan: Acute diverticulitis with evidence of this on CT scan. Clinical picture has i mproved. No evidence of sepsis. She will complete 5 days of antibiotics this evening. Cont with vancomycin PO to treat underlying c-diff with taper as outlined by ID. (3) Acute renal failure superimposed on stage 4 chronic kidney disease: Plan: Presented with creatinine 3.3 and now has improved to her baseline. Creat is 2.3 today. Cont to monitor closely and renally dose medications as needed. (4) HTN (hypertension): Plan: Chronic, uncontrolled. Cont home meds including coreg, hydralazine and isosorbide dinitrate. Adding back her lasix today. She follows with Nephrology (Jarvis). May need to consult him for assistance with BP control. 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 We are going ahead and doing this us that was requested here while she is an inpatient. (5) Chronic diastolic (congestive) heart failure: Plan: chronic, euvolemic. restart Lasix today (6) Anemia in CKD (chronic kidney disease): Plan: chronic, at baseline. No indication for transfusion at this time. (7) Sleep related hypoxia: Plan: supplemental oxygen at night per home regimen. (8) Morbid obesity: Plan: Diet and lifestyle modifications recommended. (9) DVT prophylaxis: Plan: Heparin Full Code Dispo-to home in next 1-2 days. PT/OT ordered and awaiting their thoughts. Constanza Overton DO [facility] Hospitalist Admission and Anticipated Discharge Date Admission Date: August 05, 2022 Subjective 86-year-old female with recurrent C. difficile infection and acute diverticulitis Although patient denies any abdominal pain, nausea, vomiting and she is tolerating p.o. She now is reporting shortness of breath that she started at rest this morning. Chest x-ray was performed revealing no evidence of vascular congestion, however, her Lasix was restarted. An additional 20 mg IV of Lasix was given and her potassium was replaced. Physical and Occupational Therapy to see patient today. She is otherwise doing well and we discussed the pros and cons of FMT therapy for recurrent C. difficile infection as outpatient. Review of Systems Review of Systems: All systems reviewed negative except as indicated above. Physical Exam Physical Exam: CONSTITUTIONAL: obese, vitals as above, generally well- appearing, NAD EYES: normal conjunctivae, no scleral icterus ENT: external ear and nose normal, oropharynx clear, no TM abnormality, no maxillary or ethmoid sinus tenderness NECK: trachea midline, no lymphadenopathy RESPIRATORY: clear to auscultation bilaterally, no crackles, rales or wheezes, normal respiratory effort CARDIOVASCULAR: regular rate and rhythm, S1 and 2 heard without murmurs, gallops or rubs, no JVD, no peripheral edema, CHEST: inspection of chest was normal GASTROINTESTINAL: soft, NT, ND MUSCULOSKELETAL: strength 5/5 throughout, head is normocephalic and atraumatic, neck supple, normal palpation of chest wall without tenderness SKIN: warm and dry NEUROLOGIC: CN 2-12 grossly intact, no sensory deficit, normal cognition, normal speech, no tremor PSYCHIATRIC: alert cooperative and oriented to person, place and time. Euthymic mood, makes good eye contact, language grossly intact, recent and remote memory grossly intact. Results & Data Results & Data ([facility]) Vital Signs (Past 12 Hours) Vital Signs Temp Pulse Pulse Resp BP BP Pulse Ox 08/09/22 11:14 36.6 C 80 20 171/64 H 97 08/09/22 08:26 08/09/22 07:45 36.4 C L 71 18 172/67 H 95 08/09/22 07:05 71 08/09/22 04:00 36.6 C 66 18 160/64 H 98 O2 Del Method O2 Flow Rate 08/09/22 11:14 Nasal Cannula 2 08/09/22 08:26 Room Air 08/09/22 07:45 Room Air 08/09/22 07:05 08/09/22 04:00 Nasal Cannula 2 Laboratory Results Short CBC 08/09/22 Range/Units 07:22 WBC 7.05 (4.8-10.8) K/ul Hgb 9.1 L (12.0-16.0) g/dl Hct 27.3 L (34.1-44.9) % Plt Count 271 (130-400) K/uL [facility] 08/09/22 07:22 Sodium 138 Potassium 3.4 L Chloride 107 Carbon Dioxide 25 BUN 38 H Creatinine 2.36 H D Glucose 134 H Calcium 9.3 Diagnostic Findings Chest X-Ray 08/09/22 11:36 SINGLE VIEW CHEST CLINICAL HISTORY: Dyspnea. FINDINGS: An AP, portable, upright chest radiograph is compared to chest x-ray and chest CT dated 06/16/2022. The heart is enlarged noting atherosclerotic calcification of the thoracic aorta. The pulmonary vasculature is noncongested. The lungs and pleural spaces are clear noting bibasilar atelectasis. No pneumothorax is seen. The skeletal structures are osteopenic. The bony thorax is grossly intact. IMPRESSION: Cardiomegaly with no active disease in the chest. ACT 112: Negative or not required by law. Electronically signed by: Marco Morocho M.D. 08/09/2022 12:50 PM Medications Administered Current Inpatient Medications Acetaminophen (Acetaminophen 325 Mg Tab) 650 mg PO Q4H PRN PRN Reason: Pain or Fever Stop: 09/04/22 23:24 Acetaminophen (Acetaminophen 500 Mg Tab) 1,000 mg PO AMHS [facility] Stop: 09/05/22 08:59 Last Admin: 08/09/22 08:35 Dose: 1,000 mg Allopurinol (Allopurinol 100 Mg Tab) 200 mg PO QPM [facility] Stop: 09/05/22 20:59 Last Admin: 08/08/22 21:11 Dose: 200 mg Amoxicillin/Clavulanate Potassium (Amoxicillin/Clavulanate 500 Mg Tab) 1 tab PO BIDM [facility] Stop: 08/09/22 22:00 Last Admin: 08/09/22 08:35 Dose: 1 tab Aspirin (Aspirin 81 Mg Ectab) 81 mg PO QAM [facility] Stop: 09/05/22 08:59 Last Admin: 08/09/22 08:37 Dose: 81 mg Calcitriol (Calcitriol 0.25 Mcg Capsule) 0.25 mcg PO QAM [facility] Stop: 09/05/22 08:59 Last Admin: 08/09/22 08:37 Dose: 0.25 mcg Carvedilol (Carvedilol 25 Mg Tab) 25 mg PO BIDM [facility] Stop: 09/05/22 07:59 Last Admin: 08/09/22 08:37 Dose: 25 mg Cyanocobalamin (Cyanocobalamin (B-12) 500 Mcg Tablet) 500 mcg PO QAM [facility] Stop: 09/05/22 08:59 Last Admin: 08/09/22 08:35 Dose: 500 mcg Dextrose (Dextrose 50% 50 Ml Syringe) 25 - 50 ml IV UD PRN; Protocol PRN Reason: Hypoglycemia Protocol Stop: 09/05/22 00:14 Diclofenac Sodium (Diclofenac Sod 1% Gel 100 Gm Tube) 4 gm EXT QID PRN; Protocol PRN Reason: Pain Stop: 09/04/22 23:24 Famotidine (Famotidine 20 Mg Tab) 20 mg PO QPM@1700 [facility] Stop: 09/05/22 16:59 Last Admin: 08/08/22 18:15 Dose: 20 mg Furosemide (Furosemide 20 Mg Tab) 20 mg PO QAM [facility] Stop: 09/08/22 08:59 Last Admin: 08/09/22 10:13 Dose: 20 mg Furosemide (Furosemide Inj 20 Mg/2 Ml Vial) 20 mg IV ONE ONE Stop: 08/09/22 13:33 Glucagon (Glucagon For Inj 1 Mg Vial) 1 mg IM UD PRN; Protocol PRN Reason: Hypoglycemia Protocol Stop: 09/05/22 00:14 Glucose (Glucose 40% Gel 15 Gm Tube) 15 - 30 gm PO UD PRN; Protocol PRN Reason: Hypoglycemia Protocol Stop: 09/05/22 00:14 Glucose (Glucose 10 Tab/Tube) 4 - 8 tab PO UD PRN; Protocol PRN Reason: Hypoglycemia Protocol Stop: 09/05/22 00:14 Heparin Sodium (Porcine) (Heparin Sod 5,000 Unit/0.5 Ml Vial) 5,000 units SQ Q8 [facility] Stop: 09/06/22 05:59 Last Admin: 08/09/22 06:26 Dose: 5,000 units Hydralazine HCl (Hydralazine Tab 50 Mg Tab) 100 mg PO TID [facility] Stop: 09/05/22 08:59 Last Admin: 08/09/22 08:36 Dose: 100 mg Insulin Aspart (Insulin Aspart Per Unit) 0 units SC ACHS [facility] Stop: 09/05/22 21:29 Last Admin: 08/09/22 13:06 Dose: 9 units Insulin Glargine (Lantus Per Unit Charge) 10 units SQ BID [facility] Stop: 09/05/22 08:59 Last Admin: 08/09/22 08:38 Dose: 10 units Isosorbide Dinitrate (Isosorbide Dinitrate 20 Mg Tab) 20 mg PO TID@0700,1 200,1700 [facility] Stop: 09/05/22 06:59 Last Admin: 08/09/22 13:06 Dose: 20 mg Lidocaine (Lidocaine 5% 1 Patch) 1 patch TD DAILY PRN PRN Reason: Pain Stop: 09/05/22 00:06 Miscellaneous (Carbohydrates For Hypoglycemia ) 15 - 30 gm PO UD PRN PRN Reason: Hypoglycemia Treatment Stop: 09/05/22 00:14 Miscellaneous (Remove Lidoderm Patch) 1 each N/A DAILY@2100 [facility] Stop: 09/05/22 20:59 Last Admin: 08/08/22 21:12 Dose: 1 each Morphine Sulfate (Morphine Sulfate 2 Mg/Ml Carp) 2 mg IV Q3H PRN PRN Reason: Pain Stop: 08/19/22 23:24 Nitroglycerin (Nitroglycerin Sl 0.4 Mg/Tab Tab) 0.4 mg SL UD PRN PRN Reason: Chest Pain Stop: 09/04/22 23:24 Ondansetron HCl (Ondansetron Inj 2 Mg/Ml 2 Ml Vial) 4 mg IV Q6H PRN PRN Reason: Nausea Stop: 09/04/22 23:24 Last Admin: 08/06/22 16:25 Dose: 4 mg Potassium Chloride (Potassium Chloride Crtab 20 Meq Tabcr) 20 meq PO NOW STA Stop: 08/09/22 13:33 Raspberry (Raspberry Syrup 5 Ml Udp) 5 ml PO Q6 [facility] Stop: 08/16/22 00:00 Last Admin: 08/09/22 13:05 Dose: 5 ml Rosuvastatin Calcium (Rosuvastatin Calcium 10 Mg Tab) 10 mg PO HS [facility] Stop: 09/05/22 20:59 Last Admin: 08/08/22 21:12 Dose: 10 mg Saccharomyces Boulardii (Saccharomyces Boulardii 250 Mg Cap) 250 mg PO QAM [facility] Stop: 09/05/22 08:59 Last Admin: 08/09/22 08:37 Dose: 250 mg Simethicone (Simethicone 80 Mg Chew) 80 mg PO DAILY PRN PRN Reason: GAS Stop: 09/04/22 23:24 Vancomycin HCl (Vancomycin Hcl 125 Mg/2.5ml Soln) 125 mg PO Q6 [facility] Stop: 08/16/22 00:00 Last Admin: 08/09/22 13:05 Dose: 125 mg
--- NOTE | 2022-08-09 14:29 | Ultrasound Report ---
ULTRASOUND KIDNEYS AND BLADDER CLINICAL HISTORY: Neoplasm of unspecified behavior. COMPARISON STUDY: Abdominal CT dated 08/05/2022 TECHNIQUE: Real-time, grayscale, and color flow sonography of the kidneys and bladder is performed. I mages are reviewed in the transverse and longitudinal planes. FINDINGS: Kidneys: The kidneys are markedly atrophic. The right kidney measures 14.0 cm in length and the left kidney measures 13.8 cm in length. There is no hydronephrosis. No shadowing renal calculi are identi fied. There are bilateral renal cysts. The complex lesion seen by CT corresponds to a 4.8 cm renal si nus cyst on the left. There is no evidence of solid renal mass lesion. No perinephric fluid is identi fied. Bladder: The bladder is decompressed and not well assessed. IMPRESSION: 1. The kidneys are atrophic and without hydronephrosis. 2. The bladder was decompressed and could not be assessed. 3. Bilateral renal cysts as above. The complex left renal lesion seen by CT corresponds to a renal si nus cyst. 4. There is no sonographic evidence of solid renal mass lesion. ACT 112: Negative or not required by law. Electronically signed by: Marco Morocho M.D. 08/09/2022 2:27 PM
[2022-08-09] MEDS: FAMOTIDINE 20 MG TAB PO SCH (18:03)
[2022-08-09] MEDS: allopurinoL 100 MG TAB PO SCH (21:02)
[2022-08-09] MEDS: ROSUVASTATIN CALCIUM 10 MG TAB PO SCH (21:03)
[2022-08-10] MEDS: VANCOMYCIN HCL 125 MG/2.5ML SOLN PO SCH ×4 (06:06→23:38)
[2022-08-10] MEDS: HEPARIN SOD 5,000 UNIT/0.5 ML VIAL SQ SCH ×3 (06:06→20:41)
[2022-08-10] MEDS: RASPBERRY SYRUP 5 ML UDP PO SCH ×4 (06:06→23:38)
[2022-08-10] MEDS: ISOSORBIDE DINITRATE 20 MG TAB PO SCH ×3 (06:06→17:06)
[2022-08-10 07:57] LABS: BUN Creatinine Ratio 14.8 (10-20); Calcium 9.8 mg/dl (8.5-10.1); Creatinine Clr Calc Pharmacy 19.1 ml/min; Est GFR (African American) 20.7 ml/min; Est GFR (Non-African American) 17.8 ml/min; Magnesium 1.8 mg/dl (1.7-2.4); Potassium 3.6 mmol/L (3.5-5.1)
[2022-08-10] MEDS: INSULIN ASPART PER UNIT SC SCH ×4 (08:12→20:37)
[2022-08-10] MEDS: LANTUS PER UNIT CHARGE SQ SCH ×2 (08:13→20:37)
[2022-08-10] MEDS: FUROSEMIDE 20 MG TAB PO SCH (08:15)
[2022-08-10] MEDS: CALCITRIOL 0.25 MCG CAPSULE PO SCH (08:16)
[2022-08-10] MEDS: hydrALAZINE TAB 50 MG TAB PO SCH ×3 (08:16→20:39)
[2022-08-10] MEDS: CYANOCOBALAMIN (B-12) 500 MCG TABLET PO SCH (08:16)
[2022-08-10] MEDS: ACETAMINOPHEN 500 MG TAB PO SCH ×2 (08:16→20:38)
[2022-08-10] MEDS: SACCHAROMYCES BOULARDII 250 MG CAP PO SCH (08:16)
[2022-08-10] MEDS: ASPIRIN 81 MG ECTAB PO SCH (08:16)
[2022-08-10] MEDS: carvediloL 25 MG TAB PO SCH ×2 (08:16→17:07)
[2022-08-10] MEDS: FAMOTIDINE 20 MG TAB PO SCH (17:07)
--- NOTE | 2022-08-10 18:48 | Hospitalist Progress Note ---
Date of Service August 10, 2022 Assessment & Plan (1) C. difficile colitis: Plan: C. difficile colitis Continue vancomycin Appreciate ID input Monitor volume status, electrolytes May need fecal transplant as outpatient (2) Diverticulitis: Plan: Acute diverticulitis --CT ABD:Findings are compatible with acute diverticulitis without evidence of perforation or abscess. Completed 5-day course of antibiotics Tolerating diet (3) Acute renal failure superimposed on stage 4 chronic kidney disease: Plan: MISTI on CKD IV Creatinine much improved today Monitor renal function Avoid nephrotoxic agents as able (4) HTN (hypertension): Plan: Chronic Continue coreg, hydralazine and isosorbide dinitrate. Also on lasix Follows with Nephrology:[facility] Left renal cyst Renal USD:The kidneys are atrophic and without hydronephrosis. The bladder was decompressed and could not be assessed. Bilateral renal cysts as above. The complex left renal lesion seen by CT corresponds to a renal sinus cyst. There is no sonographic evidence of solid renal mass lesion. -- Follow-up with urology as outpatient (5) Chronic diastolic (congestive) heart failure: Plan: chronic, euvolemic Resume Lasix (6) Anemia in CKD (chronic kidney disease): Plan: chronic, at baseline. Monitor (7) Sleep related hypoxia: Plan: supplemental oxygen at night per home regimen. (8) Morbid obesity: Plan: Diet and lifestyle modifications recommended. (9) DVT prophylaxis: Plan: Heparin SQ Code Status Full Code Admission and Anticipated Discharge Date Admission Date: August 05, 2022 Subjective Patient is seen and examined at bedside States having 2 loose bowel movements this morning Denies any nausea, vomiting Reports having headache and tolerates diet Also reports minimal abdominal soreness No other complaints Review of Systems Review of Systems: All systems reviewed & are unremarkable except as noted in Subjective Physical Exam Physical Exam: Physical Exam: Vitals signs as noted above General Appearance:Obese, no apparent distress Head: normocephalic, Atraumatic Eyes: normal inspection, EOMI Neck: supple, Trachea midline Respiratory/Chest: Normal breath sounds, CTA, No accessory muscle use Cardiovascular: S1, S2, No murmur Abdomen/GI:Soft, Non tender, Bowel sounds present Extremities/Musculoskeletal:normal inspection, no edema Neurologic/Psych:AAOX3, grossly no focal neurological deficits Skin: normal color, warm Results & Data Results & Data ([facility]) Vital Signs (Past 12 Hours) Vital Signs Temp Pulse Pulse Resp BP Pulse Ox O2 Del Method 08/10/22 15:42 36.6 C 87 18 165/70 H 96 Room Air 08/10/22 14:35 69 08/10/22 11:38 36.5 C 61 18 181/74 H 97 Room Air 08/10/22 07:58 36.5 C 71 18 183/77 H 95 Room Air 08/10/22 07:00 64 Laboratory Results [facility] 08/10/22 06:37 Sodium 138 Potassium 3.6 Chloride 106 Carbon Dioxide 27 BUN 35 H Creatinine 2.37 H Glucose 127 H Calcium 9.8
[2022-08-10] MEDS: allopurinoL 100 MG TAB PO SCH (20:38)
[2022-08-10] MEDS: ROSUVASTATIN CALCIUM 10 MG TAB PO SCH (20:39)
[2022-08-10] MEDS: ONDANSETRON INJ 2 MG/ML 2 ML VIAL IV PRN (20:39)
[2022-08-11] MEDS: VANCOMYCIN HCL 125 MG/2.5ML SOLN PO SCH ×2 (06:05→11:43)
[2022-08-11] MEDS: HEPARIN SOD 5,000 UNIT/0.5 ML VIAL SQ SCH ×2 (06:05→13:41)
[2022-08-11] MEDS: RASPBERRY SYRUP 5 ML UDP PO SCH ×2 (06:05→11:43)
[2022-08-11 06:09] LABS: Hematocrit (blood only) 27.7 % (34.1-44.9); Hemoglobin 9.2 g/dl (12.0-16.0); Mean Corpuscular Hemoglobin 30.2 pg (25.0-34.0); Mean Corpuscular Hgb Conc 33.2 g/dL (32.0-36.0); Mean Corpuscular Volume 90.8 fL (80.0-100.0); Mean Platelet Volume 9.6 fL (9.4-12.3); Platelet Count 260 K/uL (130-400); RDW Coefficient of Variation 14.7 % (11.5-14.5); Red Blood Count 3.05 M/uL (3.93-5.22); White Blood Count 6.63 K/ul (4.8-10.8)
[2022-08-11] MEDS: ISOSORBIDE DINITRATE 20 MG TAB PO SCH ×2 (06:10→11:43)
[2022-08-11 06:29] LABS: BUN Creatinine Ratio 15.1 (10-20); Creatinine Clr Calc Pharmacy 18.9 ml/min; Est GFR (African American) 20.5 ml/min; Est GFR (Non-African American) 17.7 ml/min; Magnesium 1.8 mg/dl (1.7-2.4); Potassium 3.7 mmol/L (3.5-5.1)
[2022-08-11] MEDS: LANTUS PER UNIT CHARGE SQ SCH (08:02)
[2022-08-11] MEDS: INSULIN ASPART PER UNIT SC SCH ×2 (08:02→12:00)
[2022-08-11] MEDS: ACETAMINOPHEN 500 MG TAB PO SCH (08:07)
[2022-08-11] MEDS: hydrALAZINE TAB 50 MG TAB PO SCH ×2 (08:07→13:40)
[2022-08-11] MEDS: CYANOCOBALAMIN (B-12) 500 MCG TABLET PO SCH (08:08)
[2022-08-11] MEDS: FUROSEMIDE 20 MG TAB PO SCH (08:08)
[2022-08-11] MEDS: CALCITRIOL 0.25 MCG CAPSULE PO SCH (08:08)
[2022-08-11] MEDS: SACCHAROMYCES BOULARDII 250 MG CAP PO SCH (08:08)
[2022-08-11] MEDS: carvediloL 25 MG TAB PO SCH (08:08)
[2022-08-11] MEDS: ASPIRIN 81 MG ECTAB PO SCH (08:08)
[2022-08-11] MEDS ORDERED: FUROSEMIDE 20 MG TAB PO SCH (09:00)
--- NOTE | 2022-08-11 14:21 | Hospitalist Progress Note ---
Date of Service August 11, 2022 Assessment & Plan (1) C. difficile colitis: Plan: C. difficile colitis Continue vancomycin Appreciate ID input Monitor volume status, electrolytes May need fecal transplant as outpatient Plan to discharge on long tapering course of p.o. vancomycin as recommended by ID (2) Diverticulitis: Plan: Acute diverticulitis --CT ABD:Findings are compatible with acute diverticulitis without evidence of perforation or abscess. Completed 5-day course of antibiotics Tolerating diet (3) Acute renal failure superimposed on stage 4 chronic kidney disease: Plan: MISTI on CKD IV Monitor renal function Avoid nephrotoxic agents as able Cr stable (4) HTN (hypertension): Plan: Chronic Continue coreg, hydralazine and isosorbide dinitrate. Also on lasix Follows with Nephrology:[facility] Left renal cyst Renal USD:The kidneys are atrophic and without hydronephrosis. The bladder was decompressed and could not be assessed. Bilateral renal cysts as above. The complex left renal lesion seen by CT corresponds to a renal sinus cyst. There is no sonographic evidence of solid renal mass lesion. -- Follow-up with urology as outpatient (5) Chronic diastolic (congestive) heart failure: Plan: chronic, euvolemic Resumed Lasix (6) Anemia in CKD (chronic kidney disease): Plan: chronic, at baseline. Monitor (7) Sleep related hypoxia: Plan: supplemental oxygen at night per home regimen. (8) Morbid obesity: Plan: Diet and lifestyle modifications recommended. (9) DVT prophylaxis: Plan: Heparin SQ Code Status Full Code Disposition Home with Admission and Anticipated Discharge Date Admission Date: August 05, 2022 Subjective Patient is seen and examined at bedside States feeling much better today Had 1 loose bowel movement today Denies nausea, vomiting, abdominal pain Headache resolved Tolerates diet No new complaints Review of Systems Review of Systems: All systems reviewed & are unremarkable except as noted in Subjective Physical Exam Physical Exam: Physical Exam: Vitals signs as noted above General Appearance:Obese, no apparent distress Head: normocephalic, Atraumatic Eyes: normal inspection, EOMI Neck: supple, Trachea midline Respiratory/Chest: Normal breath sounds, CTA, No accessory muscle use Cardiovascular: S1, S2, No murmur Abdomen/GI:Soft, Non tender, Bowel sounds present Extremities/Musculoskeletal:normal inspection, no edema Neurologic/Psych:AAOX3, grossly no focal neurological deficits Skin: normal color, warm Results & Data Results & Data ([facility]) Vital Signs (Past 12 Hours) Vital Signs Temp Pulse Pulse Resp BP Pulse Ox O2 Del Method 08/11/22 10:46 36.5 C 64 18 175/71 H 95 Room Air 08/11/22 07:30 Nasal Cannula 08/11/22 07:00 71 08/11/22 06:18 36.6 C 66 18 159/73 H 95 Room Air 08/11/22 03:23 36.3 C L 70 18 125/62 99 Nasal Cannula O2 Flow Rate 08/11/22 10:46 08/11/22 07:30 2 08/11/22 07:00 08/11/22 06:18 08/11/22 03:23 Laboratory Results Short CBC 08/11/22 Range/Units 05:43 WBC 6.63 (4.8-10.8) K/ul Hgb 9.2 L (12.0-16.0) g/dl Hct 27.7 L (34.1-44.9) % Plt Count 260 (130-400) K/uL BMP 08/11/22 05:44 Sodium 137 Potassium 3.7 Chloride 104 Carbon Dioxide 27 BUN 36 H Creatinine 2.39 H Glucose 138 H Calcium 10.0
--- NOTE | 2022-08-11 14:46 | Discharge Summary ---
Date of Service August 11, 2022 Admission HPI Per Admitting Provider CHIEF COMPLAINT: Abdominal pain and diarrhea. HISTORY OF PRESENT ILLNESS: An 86-year-old female with past medical history significant for diabetes, hyperlipidemia, history of nocturnal hypoxia, uses 2 liters of oxygen while sleeping, chronic rhinitis, chronic kidney disease stage IV, secondary hyperparathyroidism, history of mitral valve insufficiency, diastolic CHF, hypertension, left bundle-branch block, obesity, GERD, history of diverticulitis, history of C. diff colitis, history of chronic constipation, acquired cystic kidney disease, history of compression fracture of T6 vertebrae, osteoporosis, lumbar degenerative disk disease, arthritis, lumbar radiculopathy, anemia, presents with diarrhea and abdominal pain going on from last Monday. She says she has been having about 5 episodes of diarrhea every day, watery. No blood in the stools. Her abdominal pain is all over the abdomen and is nauseous. Hemodynamically stable. Has some headache. Sometimes gets blurred vision from her diabetes. On and off runny nose. No sore throat, no cough, no difficulty swallowing. She gets some on and off chest discomfort from the left chest to the left arm and she states it is going on since her COVID infection. Has some mild shortness of breath. She uses 2 liters of oxygen at nighttime. Normal bladder movements. Ambulates with a walker, lives with her son and family. Admission Exam Per Admitting Provider PHYSICAL EXAMINATION: GENERAL: The patient is obese, not in acute distress. VITAL SIGNS: Temperature 36.6, pulse 84, respiratory rate 18, blood pressure 167/74, oxygen 92% on room air. HEENT: Pupils equal, round and reactive to light. Oral mucosa dry. NECK: No JVD, no neck masses. CARDIOVASCULAR: S1 and S2 heard. Regular rate and rhythm. No murmur, no gallop. RESPIRATORY SYSTEM: Normal AP diameter. No accessory muscle use. No wheezing, no crackles. ABDOMEN: Soft, bowel sounds present. Diffuse tenderness, mild guarding. No rigidity, no distention. CENTRAL NERVOUS SYSTEM: Alert and oriented. Her speech is clear. No facial droop. Insight is good. Obeys simple commands. Moves extremities. EXTREMITIES: Mild pedal edema. No erythema seen. Principal Diagnosis Clostridium difficile colitis Acute diverticulitis Acute kidney injury Left renal cyst Discharge Data Allergies Allergy/AdvReac Type Severity Reaction Status Date / Time mannitol AdvReac Verified 07/29/22 12:36 sorbitol AdvReac Verified 07/29/22 12:36 xylitol AdvReac Verified 07/29/22 12:36 Consultations 08/05/22 20:14 ED Decision to Admit Stat 08/06/22 08:00 Consult General Surgery Routine 08/07/22 08:36 Consult Infectious Diseases Routine Procedures Performed Laboratory Results WBC 6.63 K/ul (4.8-10.8) 08/11/22 05:43 RBC 3.05 M/uL (3.93-5.22) L 08/11/22 05:43 Hgb 9.2 g/dl (12.0-16.0) L 08/11/22 05:43 Hct 27.7 % (34.1-44.9) L 08/11/22 05:43 MCV 90.8 fL (80.0-100.0) 08/11/22 05:43 MCH 30.2 pg (25.0-34.0) 08/11/22 05:43 MCHC 33.2 g/dL (32.0-36.0) 08/11/22 05:43 RDW Std Deviation 49.0 fL (36.4-46.3) H 08/11/22 05:43 RDW Coeff of Noemy 14.7 % (11.5-14.5) H 08/11/22 05:43 Plt Count 260 K/uL (130-400) 08/11/22 05:43 MPV 9.6 fL (9.4-12.3) 08/11/22 05:43 Immature Gran % (Auto) 0.7 % 08/08/22 06:21 Neut % (Auto) 70.7 % 08/08/22 06:21 Lymph % (Auto) 12.2 % 08/08/22 06:21 [place] % (Auto) 10.9 % 08/08/22 06:21 Eos % (Auto) 5.3 % 08/08/22 06:21 Baso % (Auto) 0.2 % 08/08/22 06:21 Neut # (Auto) 5.71 K/uL (1.4-6.5) 08/08/22 06:21 Lymph # (Auto) 0.99 K/uL (1.2-3.4) L 08/08/22 06:21 [place] # (Auto) 0.88 K/uL (0.24-0.82) H 08/08/22 06:21 Eos # (Auto) 0.43 K/uL (0-0.50) 08/08/22 06:21 Baso # (Auto) 0.02 K/uL (0-0.2) 08/08/22 06:21 Immature Gran # (Auto) 0.06 K/uL (0.00-0.02) H 08/08/22 06:21 Sodium 137 mmol/L (136-145) 08/11/22 05:44 Potassium 3.7 mmol/L (3.5-5.1) 08/11/22 05:44 Chloride 104 mmol/L (98-107) 08/11/22 05:44 Carbon Dioxide 27 mmol/L (21-32) 08/11/22 05:44 Anion Gap 6 (3-11) 08/11/22 05:44 BUN 36 mg/dl (6-23) H 08/11/22 05:44 Creatinine 2.39 mg/dl (0.6-1.2) H 08/11/22 05:44 Est Cr Clr Drug Dosing 18.9 ml/min 08/11/22 05:44 Est GFR ( Amer) 20.5 ml/min 08/11/22 05:44 Est GFR (Non-Af Amer) 17.7 ml/min 08/11/22 05:44 BUN/Creatinine Ratio 15.1 (-20) 08/11/22 05:44 Glucose 138 mg/dl (70-99(Fasting)) H 08/11/22 05:44 POC Glucose 212 mg/dl (70-99) H 08/11/22 11:25 Estimat Average Glucose 146 mg/dl 08/06/22 05:37 Hemoglobin A1c 6.7 % (4.5-5.6) H 08/06/22 05:37 Calcium 10.0 mg/dl (8.5-10.1) 08/11/22 05:44 Phosphorus 2.2 mg/dl (2.5-4.9) L 08/07/22 06:36 Magnesium 1.8 mg/dl (1.7-2.4) 08/11/22 05:44 Total Bilirubin 1.3 mg/dl (0.2-1.0) H 08/05/22 15:25 AST 11 U/L (13-39) L 08/05/22 15:25 ALT 7 U/L (7-52) 08/05/22 15:25 Alkaline Phosphatase 49 U/L (34-104) 08/05/22 15:25 Total Protein 6.4 gm/dl (6.0-8.3) 08/05/22 15:25 Albumin 4.2 gm/dl (3.4-5.0) 08/05/22 15:25 Globulin 2.2 gm/dl (2.5-4.0) L 08/05/22 15:25 Albumin/Globulin Ratio 1.9 (0.9-2) 08/05/22 15:25 Lipase 14 U/L (11-82) 08/05/22 15:25 Urine Color Yellow 08/05/22 18:30 Urine Appearance Clear (Clear) 08/05/22 18: Urine pH 5.5 (4.5-7.5) 08/05/22 18:30 Ur Specific [place] 1.014 (1.000-1.030) 08/05/22 18:30 Urine Protein 2+ (Negative) H 08/05/22 18:30 Urine Glucose (UA) Negative (Negative) 08/05/22 18: Urine Ketones Negative (Negative) 08/05/22 18:30 Urine Blood Negative (Negative) 08/05/22 18:30 Urine Nitrite Negative (Negative) 08/05/22 18:30 Urine Bilirubin Negative (Negative) 08/05/22 18:30 Urine Urobilinogen Negative (Negative) 08/05/22 18:30 Ur Leukocyte Esterase Negative (Negative) 08/05/22 18:30 Urine WBC (Auto) 1-5 /hpf (0-5) 08/05/22 18:30 Urine RBC (Auto) 0-4 /hpf (0-4) 08/05/22 18: U Hyaline Cast (Auto) 1-5 /lpf (0-5) 08/05/22 18:30 U Epithel Cells (Auto) >30 /lpf (0-5) H 08/05/22 18:30 Urine Bacteria (Auto) Negative (Negative) 08/05/22 18: Stl C. cayetanensis PCR Not Detected (NotDetected) 08/06/22 19:29 Stool Rotavirus A PCR Not Detected (NotDetected) 08/06/22 19: Stl Adenov F 40/41 PCR Not Detected (NotDetected) 08/06/22 19: Stool Astrovirus (PCR) Not Detected (NotDetected) 08/06/22 19: Stool Campylobacter PCR Not Detected (NotDetected) 08/06/22 19: Stl C.difficile Tox A&B Positive Cdiff Toxin (Negative) A* 08/06/22 19: Stl C. diff Tox A/B PCR C.diff Gene Detected (NotDetected) A 08/06/22 19: Stool Cryptosporidium PCR Not Detected (NotDetected) 08/06/22: Stl E.coli Shiga Tox PCR Not Detected (NotDetected) 08/06/22 19: Stl Enterotoxigenic E PCR Not Detected (NotDetected) 08/06/22 19: Stool EPEC (PCR) Not Detected (NotDetected) 08/06/22 19: Stool EAEC (PCR) Not Detected (NotDetected) 08/06/22 19: Stl E. histolytica PCR Not Detected (NotDetected) 08/06/22 19: Stool Giardia Lamblia PCR Not Detected (NotDetected) 08/06/22 19: Stool Salmonella PCR Not Detected (NotDetected) 08/06/22 19: Stool Sapovirus (PCR) Not Detected (NotDetected) 08/06/22: Stl P. shigelloides PCR Not Detected (NotDetected) 08/06/22 19: Stl Shigella/EIEC PCR Not Detected (NotDetected) 08/06/22: St Y.enterocolitica PCR Not Detected (NotDetected) 08/06/22: Stool Vibrio (PCR) Not Detected (NotDetected) 08/06/22: Stl Vibrio cholerae PCR Not Detected (NotDetected) 08/06/22: Stl Norovirus GI/GII PCR Not Detected (NotDetected) 08/06/22:29 SARS-CoV-2, RNA, NAAT NEGATIVE (NEGATIVE) 08/05/22 18:30 Impressions Abdomen/Pelvis CT 08/05/22 17:54 CT abd pelvis wo con CLINICAL HISTORY: poss divertic TECHNIQUE: Helical axial images of the abdomen and pelvis were obtained. Automated dose lowering techniques and/or adjustment according to patient size were utilized for this exam. This exam was performed without intravenous contrast. CT DOSE: 869.52 mGy.cm COMPARISON: Comparison is made to CT abdomen pelvis 06/16/2022 FINDINGS: Lower chest: Cardiomegaly is seen. Atelectasis versus scarring is seen in the visualized lungs. Liver: A left hepatic cyst measuring 17 mm is noted. Gallbladder and biliary tree: Patient is status post cholecystectomy. No intra- or extrahepatic biliary ductal dilation. Pancreas: Unremarkable, no focal lesions. Spleen: Unremarkable. 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 Kidneys and ureters: The kidneys are atrophic. There is a large intermediate density lesion in the middle of the left kidney. Bladder: A tiny focus of air is seen which may be due to recent instrumentation. Reproductive organs: Numerous diverticula are seen. There is thickening and fat stranding in the sigmoid colon. No abscess or perforation is seen. Patient is status post appendectomy. Bowel: Unremarkable. Lymph nodes Retroperitoneal: Unremarkable. Pelvic: Unremarkable. Mesenteric: Unremarkable. Peritoneum: Normal. Vessels: Atherosclerotic calcifications are seen. Abdominal wall: Soft tissue stranding is seen in the anterior abdominal wall, unchanged from prior exam. Bones: Degenerative changes in the visualized spine. IMPRESSION: 1. Findings are compatible with acute diverticulitis without evidence of perforation or abscess. 2. Redemonstration of bilateral hyperdense renal cystic lesions. If not previously evaluated, ultrasound or MRI can be performed to exclude malignancy. 3. Additional findings as above. ACT 112: Negative or not required by law. Electronically signed by: Win Scott M.D. 08/05/2022 7:53 PM Renal Ultrasound 08/09/22 11:35 ULTRASOUND KIDNEYS AND BLADDER CLINICAL HISTORY: Neoplasm of unspecified behavior. COMPARISON STUDY: Abdominal CT dated 08/05/2022 TECHNIQUE: Real-time, grayscale, and color flow sonography of the kidneys and bladder is performed. Images are reviewed in the transverse and longitudinal planes. FINDINGS: Kidneys: The kidneys are markedly atrophic. The right kidney measures 14.0 cm in length and the left kidney measures 13.8 cm in length. There is no hydronephrosis. No shadowing renal calculi are identified. There are bilateral renal cysts. The complex lesion seen by CT corresponds to a 4.8 cm renal sinus cyst on the left. There is no evidence of solid renal mass lesion. No perinephric fluid is identified. Bladder: The bladder is decompressed and not well assessed. IMPRESSION: 1. The kidneys are atrophic and without hydronephrosis. 2. The bladder was decompressed and could not be assessed. 3. Bilateral renal cysts as above. The complex left renal lesion seen by CT corresponds to a renal sinus cyst. 4. There is no sonographic evidence of solid renal mass lesion. ACT 112: Negative or not required by law. Electronically signed by: Marco Morocho M.D. 08/09/2022 2:27 PM Chest X-Ray 08/09/22 11:36 SINGLE VIEW CHEST CLINICAL HISTORY: Dyspnea. FINDINGS: An AP, portable, upright chest radiograph is compared to chest x-ray and chest CT dated 06/16/2022. The heart is enlarged noting atherosclerotic calcification of the thoracic aorta. The pulmonary vasculature is noncongested. The lungs and pleural spaces are clear noting bibasilar atelectasis. No pneumothorax is seen. The skeletal structures are osteopenic. The bony thorax is grossly intact. IMPRESSION: Cardiomegaly with no active disease in the chest. ACT 112: Negative or not required by law. Electronically signed by: Marco Morocho M.D. 08/09/2022 12:50 PM Ordered Studies 08/05/22 17:54 CT abd pelvis wo con Stat 08/09/22 11:35 US renal/blad retro comp Routine Hospital Course (1) C. difficile colitis: C. difficile colitis Continue vancomycin Appreciate ID input Monitor volume status, electrolytes May need fecal transplant as outpatient Plan to discharge on long tapering course of p.o. vancomycin as recommended by ID (2) Diverticulitis: Acute diverticulitis --CT ABD:Findings are compatible with acute diverticulitis without evidence of perforation or abscess. Completed 5-day course of antibiotics Tolerating diet (3) Acute renal failure superimposed on stage 4 chronic kidney disease: MISTI on CKD IV Monitor renal function Avoid nephrotoxic agents as able Cr stable (4) HTN (hypertension): Chronic Continue coreg, hydralazine and isosorbide dinitrate. Also on lasix Follows with Nephrology:[facility] Left renal cyst Renal USD:The kidneys are atrophic and without hydronephrosis. The bladder was decompressed and could not be assessed. Bilateral renal cysts as above. The complex left renal lesion seen by CT corresponds to a renal sinus cyst. There is no sonographic evidence of solid renal mass lesion. -- Follow-up with urology as outpatient (5) Chronic diastolic (congestive) heart failure: chronic, euvolemic Resumed Lasix (6) Anemia in CKD (chronic kidney disease): chronic, at baseline. Monitor (7) Sleep related hypoxia: supplemental oxygen at night per home regimen. (8) Morbid obesity: Diet and lifestyle modifications recommended. (9) DVT prophylaxis: Heparin SQ Code Status Full Code Disposition Home with Total Time Total Time Spent Total Time Spent (In Minutes): 48 minutes Discharge Plan Discharge Items Patient Disposition: Home - Home Health Services Reason For Visit: DIARRHEA Discharge Diagnosis: Clostridium difficile colitis Acute diverticulitis Acute kidney injury Left renal cyst Condition on Discharge: Fair Activity: Per Instructions section Exercise/Sports: Gradually increase as tolerated Non-emergency contact: Primary Care Provider Call non-emergency contact if: you have any medication questions, your symptoms worsen, your pain is concerning for you and you have a fever Follow-up/Referrals: Fox Ramirez MD [Primary Care Provider] - (Date & Time 08/16/2022 1:40 PM Provider Manolo Wilks MD [facility] ) Diet: Carb Consistent or DM2 Addtl Attending Provider Instructions: Follow-up with your primary care physician on 08/16/2022 1:40 PM --- Complete the oral vancomycin course as prescribed. Vancomycin Tapering Course: Take 125 mg 4 times a day for 10 days, then take 1.5 mg 2 times a day for 7 days, then take 1.5 mg once a day for 7 days, then take 1.5 mg every alternate day for 4 weeks. --- Follow-up with your physician for further evaluation of kidney cyst which was incidentally noted on CT scan. --Seek immediate medical attention if your symptoms reoccur or worsen Please take all medications as instructed on discharge list below. Please call if you have any questions or problems. You can reach a [facility] hospitalist on duty at [facility] 24 hours a day by calling [phone] Pending Studies at Discharge: No Stand-Alone Forms: My [facility], Smoking Cessation Medications and DC Order Prescriptions: New vancomycin 50 mg/mL recon soln 125 mg PO DIRECTED Qty: 300 0RF Rx Instructions: Take 125 mg 4 times per day for 10 days; 2 times per day for 7 days; once daily for 7 days; once every 2 days for 4 weeks Continued calcitriol 0.25 mcg capsule 0.25 mcg PO QAM Qty: 90 3RF ondansetron 4 mg tablet,disintegrating 4 mg PO Q6H PRN (Reason: nausea and vomiting) Qty: 14 0RF furosemide 20 mg tablet 20 mg PO DAILY Qty: 90 3RF lidocaine [Salonpas (lidocaine)] 4 % Adhesive Patch,Medicated 1 patch TOPICAL DAILY PRN (Reason: Pain) aspirin 81 mg Tablet,Delayed Release (Dr/Ec) 81 mg PO QAM rosuvastatin 10 mg tablet 10 mg PO HS famotidine [Pepcid] 20 mg Tablet 20 mg PO QPM@1700 Rx Instructions: take with supper hydralazine 100 mg tablet 100 mg PO TID carvedilol 25 mg tablet 25 mg PO BIDM acetaminophen [Tylenol Extra Strength] 500 mg Tablet 1,000 mg PO AMHS simethicone 80 mg Tablet,Chewable 80 mg PO DIRECTED PRN (Reason: GAS ) allopurinol 100 mg tablet 200 mg PO QPM ketoconazole 2 % shampoo 1 applic TOPICAL WK Rx Instructions: massage into entire scalp,rinse out after 10 minutes diclofenac sodium 1 % gel 4 g TOP QID PRN (Reason: Pain) Rx Instructions: apply to bilateral knees cyanocobalamin (vitamin B-12) 500 mcg Tablet 500 mcg PO QAM Qty: 30 0RF Saccharomyces boulardii [Florastor] 250 mg capsule 250 mg PO QAM Humulin 70/30 U-100 Insulin 100 unit/mL (70-30) suspension 30 unit subcut BID Rx Instructions: take before breakfast and supper omeprazole 20 mg capsule,delayed release(DR/EC) 20 mg PO QAM isosorbide dinitrate 20 mg tablet 20 mg PO TID Discharge Orders: Discharge Order (Routine); Ordered 08/11/22 Ordered By: Fuentes Mckeon/Other Patient Handouts: Managing Type 2 Diabetes, Clostridium Difficile Infection Admission Data Admit Date/Time: 08/05/22 21:55 Attending Provider: Fuentes Dave Admit Provider: Jorge Luis Beasley Primary Care Provider: Fox Ramirez Other Providers: Jorge Luis Beasley ; Clovis Walton ; Kaushal Gaspar ; Lou Boggs ; Petrona Rodriguez ; Tyron Bernabe ; Rehan Morris ; Madie Beyer ; Kristine Cox ; Michael Fermin Jr ; Abel Ordoñez ; Pradip Mendez ; Lauren Dillard ; Alon Valentin ; Joan Landry ; Arjun Valencia I. ; Bennett Munoz II ; Alison Ryan ; Kaushal Sharp ; Micheal Perez ; Breana Manuel Other Interventions: Discharge Summary Assessment (RN) Last Done: 08/11/22 14:20
== END 2022-08-11 15:55 | disposition home health service (06) | DRG 372 ==
LOC: ED 15:06 → SUATTDRO 21:55 → 2W 21:55
DX: N28.1 Cyst of kidney, acquired; Z83.3 Family history of diabetes mellitus; Z79.4 Long term (current) use of insulin; Z88.8 Allergy status to other drugs, medicaments and biological substances; A04.71 Enterocolitis due to Clostridium difficile, recurrent; E78.5 Hyperlipidemia, unspecified; Z68.34 Body mass index [BMI] 34.0-34.9, adult; N17.9 Acute kidney failure, unspecified; I13.0 Hypertensive heart and chronic kidney disease with heart failure and stage 1 through stage 4 chronic kidney disease, or unspecified chronic kidney disease; I50.32 Chronic diastolic (congestive) heart failure; D63.1 Anemia in chronic kidney disease; Z99.81 Dependence on supplemental oxygen; K57.92 Diverticulitis of intestine, part unspecified, without perforation or abscess without bleeding; N18.4 Chronic kidney disease, stage 4 (severe); Z79.82 Long term (current) use of aspirin; E11.9 Type 2 diabetes mellitus without complications; E66.01 Morbid (severe) obesity due to excess calories

== ENCOUNTER 2023-01-03 23:23 | Inpatient (IN) ==
[2023-01-03] MEDS ORDERED: SODIUM CHLORIDE 0.9% 500 ML IV SCH (23:45)
[2023-01-03] MEDS ORDERED: ASPIRIN CHEW 324 MG PO STA (23:47)
[2023-01-03] MEDS ORDERED: NITROGLYCERIN SL 0.4 MG/TAB TAB SL STA (23:55)
--- NOTE | 2023-01-04 00:07 | Emergency Department Note ---
History of Present Illness General Chief Complaint: Hypertension Stated Complaint: HPB,LOW SUGAR,CATARACT SURGERY TODAY, Time Seen by Provider: 01/03/23 23:46 History of Present Illness Provider Complaint: chest pain Onset (ago): day(s) 1 Duration: intermittent Onset: during rest Pain Location: substernal Pain Radiation: none Severity: moderate Maximum Pain Intensity: 5 Current Pain Intensity: 5 Quality: + aching Relieved By: + nothing Exacerbated By: + nothing Context: no recent illness, no recent surgery, no recent travel, no trauma/injury or no history of DVT/PE Associated symptoms: + dyspnea; no nausea, no diaphoresis, no syncope, no palpitations or no cough Patient also states she is concerned she might have a UTI. Patient reports she had cataract surgery under moderate sedation not general anesthesia on her left eye earlier today. Home Medications Medication Instructions Recorded Confirmed Type aspirin 81 mg tablet,delayed 81 mg PO QAM 12/30/18 01/04/23 History release rosuvastatin 10 mg tablet 10 mg PO HS 12/30/18 01/04/23 History famotidine 20 mg tablet (Pepcid) 20 mg PO QPM@1700 11/18/19 01/04/23 History lidocaine 4 % topical patch 1 patch topical DAILY PRN Pain 06/23/20 01/04/23 History (Salonpas (lidocaine)) diclofenac sodium 1 % topical gel 4 g topical QID PRN Pain 03/17/21 01/04/23 History cyanocobalamin (vitamin B-12) 500 500 mcg PO QAM #30 tabs 03/27/21 01/04/23 Rx mcg tablet carvedilol 25 mg tablet 25 mg PO BIDM 06/13/21 01/04/23 History hydralazine 100 mg tablet 100 mg PO TID 06/13/21 01/04/23 History Saccharomyces boulardii 250 mg 250 mg PO QAM 08/26/21 01/04/23 History capsule (Florastor) ondansetron 4 mg disintegrating 4 mg PO Q6H PRN nausea and 11/25/21 01/04/23 Rx tablet vomiting #14 tabs acetaminophen 500 mg tablet 1,000 mg PO BID 04/26/22 01/04/23 History (Tylenol Extra Strength) allopurinol 100 mg tablet 200 mg PO DAILY 04/26/22 01/04/23 History simethicone 80 mg chewable tablet 80 mg PO DIRECTED PRN GAS 04/26/22 01/04/23 History calcitriol 0.25 mcg capsule 0.25 mcg PO QAM #90 caps 07/18/22 01/04/23 Rx insulin human U-100 NPH-regulr 25 - 70 unit subcut BID 08/05/22 01/04/23 History 70-30 mix 100 unit/mL subcutaneous susp (Humulin 70/30 U-100 Insulin) isosorbide dinitrate 20 mg tablet 40 mg PO TID 08/05/22 01/04/23 History omeprazole 20 mg capsule,delayed 20 mg PO QAM 08/05/22 01/04/23 History release docusate sodium 100 mg capsule 100 mg PO BID PRN Constipation 12/14/22 01/04/23 History (Colace) furosemide 20 mg tablet 20 mg PO QAM 12/14/22 01/04/23 History polyethylene glycol 3350 17 17 g PO BID PRN Constipation 12/14/22 01/04/23 History gram/dose oral powder (Miralax) sennosides 8.6 mg tablet (Senna 8.6 mg PO BID PRN Constipation 12/14/22 01/04/23 History Lax) spironolactone 25 mg tablet 25 mg PO DAILY #90 tabs 01/02/23 01/04/23 Rx Allergies Allergy/AdvReac Type Severity Reaction Status Date / Time No Known Allergies Allergy Verified 01/04/23 00:07 Past Med/Surg History Medical History Anemia Bladder leak CHF (congestive heart failure) follows with Kaushal Nieto PA-C Chronic back pain Chronic kidney disease (CKD), stage IV (severe) follows with Dr. Childress Diabetes mellitus, type 2 Hearing deficit History of COVID-19 04/26/22, pcr test [place], admitted>pneumonia>resolved. History of diverticular abscess of colon originally 10/23/21; admit to [facility] 08/07/22 History of kidney stones HTN (hypertension) Hx of basal cell carcinoma Hx of Clostridium difficile infection 10/23/21>dx; most recently 08/05/[address] [facility] w/infection [facility] of [facility] Hx of left bundle branch block Hyperlipidemia Hypertension Kidney cysts LEFT SIDE>BEING MONITORED BY UROLOGY [facility] Morbid obesity with BMI of 40.0-44.9, adult Nocturnal hypoxemia WEARS 2L HS On home oxygen therapy 2L N/C at HS only Osteoarthritis Spinal stenosis of lumbar region with radiculopathy Surgical History H/O: hysterectomy History of arthroscopy LEFT KNEE History of arthroscopy of left knee History of bilateral tubal ligation History of cardiac cath ?2009--@ [facility] [place]--no stents History of colonoscopy History of cystoscopy History of dilatation and curettage History of esophagogastroduodenoscopy (EGD) History of right cataract surgery History of tooth extraction all teeth Hx of appendectomy Hx of cholecystectomy Nausea and vomiting after administration of anesthetic agent + VERTIGO S/P epidural steroid injection Family History Sister Family history of diabetes mellitus Sister Family history of diabetes mellitus Brother Family history of diabetes mellitus Family history of esophageal cancer Brother Family history of esophageal cancer Father Lung cancer Other No family history of adverse response to anesthesia No significant family history Social History Smoking Status: Never smoker Second Hand Exposure: No; Hx Alcohol Use: No Hx Substance Use: No Preferred Language: Bulgarian Communication Ability: Effective 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 Beliefs That Will Affect Care: None marital status: / Current Living Situation: Family Current Living Situation Comment: With Son and Daughter in-law How many Children do You have: 2 Feels Safe at Home: Yes Assistive Devices: Denture - Upper, Denture - Lower, Glasses, Hearing Aid - Bilateral, Oxygen - at Night and Walker Physical Exam Vital Signs Vital Signs - 24 hr 01/03/23 23:35 01/03/23 23:49 01/03/23 23:49 Temperature 36.5 C 36.4 C L Temperature Source Temporal Artery Scan Oral Pulse Rate 82 67 Pulse Rate [Left Radial] 67 Pulse Rhythm [Left Radial] Regular Pulse Strength [Left Radial] Normal Respiratory Rate 18 16 Respiratory Effort / Characteristics Non-Labored Spontaneous Non-Labored Spontaneous Respiratory Depth Normal Normal Respiratory Pattern Regular Regular Blood Pressure 160/75 H Blood Pressure [Right Arm] 209/85 H Blood Pressure Mean 103 Blood Pressure Mean [Right Arm] 126 Blood Pressure Position Sitting Pulse Oximetry 97 98 Oxygen Delivery Method Room Air Room Air Sepsis Recent Fever Within 48 Hours No Sepsis New/Unexplained Change in Mental Status N/A Sepsis Action Taken by Nursing No Action Required 01/04/23 00:45 Temperature Temperature Source Pulse Rate Pulse Rate [Left Radial] 66 Pulse Rhythm [Left Radial] Irregular Pulse Strength [Left Radial] Normal Respiratory Rate 15 Respiratory Effort / Characteristics Non-Labored Spontaneous Respiratory Depth Normal Respiratory Pattern Regular Blood Pressure Blood Pressure [Right Arm] 207/73 H Blood Pressure Mean Blood Pressure Mean [Right Arm] 117 Blood Pressure Position Pulse Oximetry 97 Oxygen Delivery Method Room Air Sepsis Recent Fever Within 48 Hours Sepsis New/Unexplained Change in Mental Status Sepsis Action Taken by Nursing Physical Exam GENERAL: oriented to person, place, and time. appears well-developed and well- nourished. HENT: Exam performed. - Head: Normocephalic and atraumatic. EYES: Eye shield over the left eye. NECK: Normal range of motion. Neck supple. No JVD present. CV: Normal rate, regular rhythm, normal heart sounds and intact distal pulses. There is no peripheral edema. Palpable radial pulses bue. PULM/CHEST: Effort normal and breath sounds normal. No respiratory distress. No stridor. no wheezes. no rales. ABD: The abdomen is soft. There is no tenderness. NEURO: Motor and sensation grossly intact. SKIN: Skin is warm and dry. He is not diaphoretic. PSYCH: normal mood and affect. Behavior is normal. Judgment and thought content normal. Course Course 2346: The patient was evaluated in room B2. A complete history and physical exam was performed Cardiac monitoring: An order was placed for continuous cardiac monitoring. The monitor shows a rate of 70 with sinus rhythm interpreted by md 0101: Labs and imaging within normal limits. Patient will be admitted for observation for chest pain rule out ACS Dr. Cameron will evaluate the patient. Administered Medications Sodium Chloride (Nss) 500 mls @ 125 mls/hr IV .Q4H ARMOND Stop: 02/02/23 23:44 Last Admin: 01/04/23 00:17 Dose: 125 mls/hr Documented By: RUI Discontinued Medications Aspirin (Aspirin Chew 324 Mg) 324 mg PO NOW STA Stop: 01/03/23 23:48 Last Admin: 01/04/23 00:17 Dose: 324 mg Documented By: RUI Nitroglycerin (Nitroglycerin Sl 0.4 Mg/Tab Tab) 0.4 mg SL NOW STA Stop: 01/03/23 23:56 Last Admin: 01/04/23 00:17 Dose: 0.4 mg Documented By: RUI Medical Decision Making Laboratory Data Attestation: I reviewed the patient's lab results. 01/04/23 00:05 01/04/23 00:05 Labs: Lab Results 01/03/23 01/04/23 01/04/23 Range/Units 23:59 00:05 00:05 WBC 7.20 (4.8-10.8) K/ul RBC 2.98 L (4.20-5.40) M/uL Hgb 9.4 L (12.0-16.0) g/dl Hct 27.7 L (37.0-47.0) % MCV 93.0 (80.0-100.0) fL MCH 31.5 (25.0-34.0) pg MCHC 33.9 (32.0-36.0) g/dL RDW Std Deviation 49.6 H (36.4-46.3) fL RDW Coeff of Noemy 14.6 H (11.5-14.5) % Plt Count 244 (130-400) K/uL MPV 9.8 (9.4-12.4) fL Immature Gran % (Auto) 0.3 % Neut % (Auto) 68.1 % Lymph % (Auto) 16.9 % Marshall % (Auto) 11.5 % Eos % (Auto) 2.8 % Baso % (Auto) 0.4 % Neut # (Auto) 4.90 (1.40-6.50) K/uL Lymph # (Auto) 1.22 (1.2-3.4) K/uL Marshall # (Auto) 0.83 H (0.11-0.59) K/uL Eos # (Auto) 0.20 (0-0.50) K/uL Baso # (Auto) 0.03 (0-0.2) K/uL Immature Gran # (Auto) 0.02 (0.01-0.20) K/uL PT 10.4 (9.0-12.0) Seconds INR 1.0 (0.9-1.1) APTT 32.3 H (21.0-31.0) Seconds PTT Ratio 1.2 Sodium (136-145) mmol/L Potassium (3.5-5.1) mmol/L Chloride (98-107) mmol/L Carbon Dioxide (21-32) mmol/L Anion Gap (3-11) BUN (6-23) mg/dl Creatinine (0.6-1.2) mg/dl Est Cr Clr Drug Dosing ml/min Est GFR ( Amer) ml/min Est GFR (Non-Af Amer) ml/min BUN/Creatinine Ratio (10-20) Glucose (70-99(Fasting)) mg/dl POC Glucose 143 H (70-99) mg/dl Calcium (8.5-10.1) mg/dl Troponin I High Sens (0-14) pg/ml Lipase (11-82) U/L SARS-CoV-2, RNA, NAAT (NEGATIVE) 01/04/23 01/04/23 Range/Units 00:05 00:25 WBC (4.8-10.8) K/ul RBC (4.20-5.40) M/uL Hgb (12.0-16.0) g/dl Hct (37.0-47.0) % MCV (80.0-100.0) fL MCH (25.0-34.0) pg MCHC (32.0-36.0) g/dL RDW Std Deviation (36.4-46.3) fL RDW Coeff of Noemy (11.5-14.5) % Plt Count (130-400) K/uL MPV (9.4-12.4) fL Immature Gran % (Auto) % Neut % (Auto) % Lymph % (Auto) % Marshall % (Auto) % Eos % (Auto) % Baso % (Auto) % Neut # (Auto) (1.40-6.50) K/uL Lymph # (Auto) (1.2-3.4) K/uL Marshall # (Auto) (0.11-0.59) K/uL Eos # (Auto) (0-0.50) K/uL Baso # (Auto) (0-0.2) K/uL Immature Gran # (Auto) (0.01-0.20) K/uL PT (9.0-12.0) Seconds INR (0.9-1.1) APTT (21.0-31.0) Seconds PTT Ratio Sodium 139 (136-145) mmol/L Potassium 3.6 (3.5-5.1) mmol/L Chloride 101 (98-107) mmol/L Carbon Dioxide 27 (21-32) mmol/L Anion Gap 11 (3-11) BUN 54 H (6-23) mg/dl Creatinine 2.92 H (0.6-1.2) mg/dl Est Cr Clr Drug Dosing 15.3 ml/min Est GFR ( Amer) 15.9 ml/min Est GFR (Non-Af Amer) 13.8 ml/min BUN/Creatinine Ratio 18.5 (10-20) Glucose 134 H (70-99(Fasting)) mg/dl POC Glucose (70-99) mg/dl Calcium 10.2 H (8.5-10.1) mg/dl Troponin I High Sens 11.3 (0-14) pg/ml Lipase 38 (11-82) U/L SARS-CoV-2, RNA, NAAT NEGATIVE (NEGATIVE) Imaging Data Chest x-ray: Attestation: I personally reviewed and interpreted this imaging study as follows: My impression: Airway clear. Mild cardiomegaly. No acute infiltrate. No pneumothorax. Mild cephalization. No free air under the diaphragm. No fractures of the skeletal structures. ECG Data Attestation: I personally reviewed and interpreted this ECG as follows: Indication: chest pain Rate (beats per minute): 68 Rhythm: normal sinus Findings: no ST depression, no ST elevation or no prolonged QT [facility] Narrative 2346: The patient was evaluated in room B2. A complete history and physical exam was performed Cardiac monitoring: An order was placed for continuous cardiac monitoring. The monitor shows a rate of 70 with sinus rhythm interpreted by me 0101: Labs and imaging within normal limits. Patient will be admitted for observation for chest pain rule out ACS Dr. Cameron will evaluate the patient. Impression & Plan Chest pain Discharge Plan Visit Data Chief Complaint: Hypertension Stated Complaint: HPB,LOW SUGAR,CATARACT SURGERY TODAY, ED Provider: Chris Turpin Discharge Problem: Chest pain Patient Disposition: Being Evaluated by Hospitalist Forms Stand Alone Forms: My [facility] Prescriptions Prescriptions: No Action calcitriol 0.25 mcg capsule 0.25 mcg PO QAM Qty: 90 3RF ondansetron 4 mg tablet,disintegrating 4 mg PO Q6H PRN (Reason: nausea and vomiting) Qty: 14 0RF spironolactone 25 mg tablet 25 mg PO DAILY Qty: 90 3RF lidocaine [Salonpas (lidocaine)] 4 % Adhesive Patch,Medicated 1 patch TOPICAL DAILY PRN (Reason: Pain) aspirin 81 mg Tablet,Delayed Release (Dr/Ec) 81 mg PO QAM rosuvastatin 10 mg tablet 10 mg PO HS famotidine [Pepcid] 20 mg Tablet 20 mg PO QPM@1700 Rx Instructions: take with supper hydralazine 100 mg tablet 100 mg PO TID carvedilol 25 mg tablet 25 mg PO BIDM acetaminophen [Tylenol Extra Strength] 500 mg Tablet 1,000 mg PO BID simethicone 80 mg Tablet,Chewable 80 mg PO DIRECTED PRN (Reason: GAS ) allopurinol 100 mg tablet 200 mg PO DAILY Rx Instructions: noon furosemide 20 mg tablet 20 mg PO QAM sennosides [Senna Lax] 8.6 mg Tablet 8.6 mg PO BID PRN (Reason: Constipation) docusate sodium [Colace] 100 mg Capsule 100 mg PO BID PRN (Reason: Constipation) polyethylene glycol 3350 [Miralax] 17 gram/dose Powder 17 g PO BID PRN (Reason: Constipation) diclofenac sodium 1 % gel 4 g TOP QID PRN (Reason: Pain) Rx Instructions: apply to bilateral knees cyanocobalamin (vitamin B-12) 500 mcg Tablet 500 mcg PO QAM Qty: 30 0RF Saccharomyces boulardii [Florastor] 250 mg capsule 250 mg PO QAM Humulin 70/30 U-100 Insulin 100 unit/mL (70-30) suspension 25 - 70 unit subcut BID Patient Comments: takes 70 units in am takes 25-30 units pm Rx Instructions: take before breakfast and supper omeprazole 20 mg capsule,delayed release(DR/EC) 20 mg PO QAM isosorbide dinitrate 20 mg tablet 40 mg PO TID Referrals Referrals: Fox Ramirez MD [Primary Care Provider] - Chest pain Qualifiers: Chest pain type: unspecified Qualified Code(s): R07.9 - Chest pain, unspecified
[2023-01-04 00:30] LABS: Basophils # (auto) 0.03 K/uL (0-0.2); Basophils % (auto) 0.4 %; Eosinophils % (auto) 2.8 %; Hematocrit (blood only) 27.7 % (37.0-47.0); Hemoglobin 9.4 g/dl (12.0-16.0); Immature Granulocytes # (auto) 0.02 K/uL (0.01-0.20); Immature Granulocytes % (auto) 0.3 %; Lymphocytes # (auto) 1.22 K/uL (1.2-3.4); Lymphocytes % (auto) 16.9 %; Mean Corpuscular Hemoglobin 31.5 pg (25.0-34.0); Mean Corpuscular Hgb Conc 33.9 g/dL (32.0-36.0); Mean Platelet Volume 9.8 fL (9.4-12.4); Monocytes # (auto) 0.83 K/uL (0.11-0.59); Monocytes % (auto) 11.5 %; Neutrophils % (auto) 68.1 %; Platelet Count 244 K/uL (130-400); RDW Coefficient of Variation 14.6 % (11.5-14.5); RDW Standard Deviation 49.6 fL (36.4-46.3); Red Blood Count 2.98 M/uL (4.20-5.40)
[2023-01-04 00:43] LABS: BUN Creatinine Ratio 18.5 (10-20); Calcium 10.2 mg/dl (8.5-10.1); Creatinine Clr Calc Pharmacy 15.3 ml/min; Est GFR (African American) 15.9 ml/min; Est GFR (Non-African American) 13.8 ml/min; Potassium 3.6 mmol/L (3.5-5.1)
[2023-01-04 00:50] LABS: Troponin I High Sensitivity 11.3 pg/ml (0-14)
[2023-01-04 00:54] LABS: Partial Thromboplastin Ratio 1.2; Partial Thromboplastin Time 32.3 Seconds (21.0-31.0); Prothrombin Time 10.4 Seconds (9.0-12.0)
[2023-01-04] MEDS ORDERED: LABETALOL HCL IV 5 MG/ML 20ML IV STA (01:06)
[2023-01-04] MEDS ORDERED: SODIUM CHLORIDE 0.9% 500 ML IV ONE (01:07)
[2023-01-04 01:33] LABS: Magnesium 2.1 mg/dl (1.7-2.4); Phosphorus 3.6 mg/dl (2.5-4.9)
[2023-01-04] MEDS ORDERED: PROMETHAZINE HCL 12.5 MG in SODIUM CHLORIDE 0.9% 50 ML IV STA (02:01)
[2023-01-04] MEDS ORDERED: hydrALAZINE HCL 20 MG/ML VIAL IV STA (02:02)
--- NOTE | 2023-01-04 02:02 | History & Physical Report ---
Date of Service January 04, 2023 Assessment & Plan (1) Hypertensive crisis: Plan: Worsening kidney dysfunction, ARF on CKD Spironolactone intolerance Chest pain secondary to above chronic diastolic heart failure (EF 55 to 60%, TTE 2019), possible right-sided heart failure with fluid retention and clear chest x-ray chronic LBBB PAF as per records, patient NSR hx PVD DM2 insulin requiring, hypoglycemic episodes at home as per family, likely from worsening kidney dysfunction, last hemoglobin A1c was 6.29 July 2022 secondary hyperparathyroidism as per records GERD, stable on regimen chronic anemia, hemoglobin at baseline complicated UTI, no sepsis for now renal cysts PCU IV labetalol 1 dose now IV Lasix 1 dose, fluid restriction six albumin given fluid retention Add spironolactone the patient ADR list due to severe intolerance as per patient request Daily renal function Nephrology consult Re: Uncontrolled hypertension (Patient known to [facility] Cardiology consult Re: Chest pain, fluid retention Update TTE Urine CS, Cefepime Basal bolus insulin, ISS BG goal 1 10-1 40, carb count carbs, update hemoglobin A1c given hypoglycemic episodes Home basal insulin dose may need to be adjusted prior to discharge. DVT prophylaxis with heparin subcu Full code Total critical care time was 45 minutes. Patient son requesting updates providers. Mr. Tenzin Araya, contact #[phone]. Text document was generated using [email or web address] voice recognition software. It may contain grammatical or spelling errors. Kindly contact undersigned for clarification of any documentation item in question. History of Present Illness Chief Complaint: Chest pain, not feeling well Primary Care Provider: Fox Ramirez MD History obtained from patient and records. Medical history significant for chronic diastolic heart failure (EF 55 to 60%, TTE 2019), chronic left bundle branch block, PAF as per records, PVD, hypertension, nocturnal hypoxemia on home O2 at night, DM2 insulin requiring, CRI (baseline creatinine 2.5), secondary hyperparathyroidism as per records, GERD, chronic constipation, chronic anemia (baseline hemoglobin of 9), renal cysts. Last confinement July 2022 for C. difficile colitis. 1 month history of intermittent left-sided chest pain sometimes going to her neck. Some shortness of breath and fluid retention. No unusual cough symptoms. Intermittent headaches. No consultations done as symptoms would go away. SBP at home 160s to 200s. Patient compliant with home medications. No unusual stressors. No OTC NSAID intake. Patient seen at [facility] head [facility] office 2 days ago on follow-up visit. Home BP diary showed SBP 1 60-1 80s. Serum creatinine had risen to 2.86 as per note. Patient instructed to take furosemide 40 mg p.o. in a.m. and to take additional 20 mg p.o. at night as needed for ankle swelling. Spironolactone initiated. Patient instructed to return after 1 month for follow-up. Patient felt sick after first dose of spironolactone 2 days ago. Weak and achy all over. Appetite not too good, blood sugar noted to be low at home. Patient underwent cataract surgery on the left eye yesterday. Patient comfortable when she got up home up until she took second dose of spironolactone. Patient felt sick again. Patient noted very intense left-sided chest pain. Patient also complaining of achy right flank pain and greenish urine. Chest discomfort relieved by nitroglycerin at the ER SBP currently 230s. MEDICAL HISTORY: As above. SURGERIES: She has had knee surgeries, hysterectomy, bilateral tubal ligation, cholecystectomy, appendectomy, cataract surgery FAMILY HISTORY: Laryngeal cancer, stroke and throat cancer. 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 Allergies Allergy/AdvReac Type Severity Reaction Status Date / Time spironolactone AdvReac Intermediate weakness Verified 01/04/23 02:20 Home Medications Medication Instructions Recorded Confirmed Type aspirin 81 mg tablet,delayed 81 mg PO QAM 12/30/18 01/04/23 History release rosuvastatin 10 mg tablet 10 mg PO HS 12/30/18 01/04/23 History famotidine 20 mg tablet (Pepcid) 20 mg PO QPM@1700 11/18/19 01/04/23 History lidocaine 4 % topical patch 1 patch topical DAILY PRN Pain 06/23/20 01/04/23 History (Salonpas (lidocaine)) diclofenac sodium 1 % topical gel 4 g topical QID PRN Pain 03/17/21 01/04/23 History cyanocobalamin (vitamin B-12) 500 500 mcg PO QAM #30 tabs 03/27/21 01/04/23 Rx mcg tablet carvedilol 25 mg tablet 25 mg PO BIDM 06/13/21 01/04/23 History hydralazine 100 mg tablet 100 mg PO TID 06/13/21 01/04/23 History Saccharomyces boulardii 250 mg 250 mg PO QAM 08/26/21 01/04/23 History capsule (Florastor) ondansetron 4 mg disintegrating 4 mg PO Q6H PRN nausea and 11/25/21 01/04/23 Rx tablet vomiting #14 tabs acetaminophen 500 mg tablet 1,000 mg PO BID 04/26/22 01/04/23 History (Tylenol Extra Strength) allopurinol 100 mg tablet 200 mg PO DAILY 04/26/22 01/04/23 History simethicone 80 mg chewable tablet 80 mg PO DIRECTED PRN GAS 04/26/22 01/04/23 History calcitriol 0.25 mcg capsule 0.25 mcg PO QAM #90 caps 07/18/22 01/04/23 Rx insulin human U-100 NPH-regulr 25 - 70 unit subcut BID 08/05/22 01/04/23 History 70-30 mix 100 unit/mL subcutaneous susp (Humulin 70/30 U-100 Insulin) isosorbide dinitrate 20 mg tablet 40 mg PO TID 08/05/22 01/04/23 History omeprazole 20 mg capsule,delayed 20 mg PO QAM 08/05/22 01/04/23 History release docusate sodium 100 mg capsule 100 mg PO BID PRN Constipation 12/14/22 01/04/23 History (Colace) furosemide 20 mg tablet 20 mg PO QAM 12/14/22 01/04/23 History polyethylene glycol 3350 17 17 g PO BID PRN Constipation 12/14/22 01/04/23 History gram/dose oral powder (Miralax) sennosides 8.6 mg tablet (Senna 8.6 mg PO BID PRN Constipation 12/14/22 01/04/23 History Lax) spironolactone 25 mg tablet 25 mg PO DAILY #90 tabs 01/02/23 01/04/23 Rx gatifloxacin 0.5 % eye drops 1 drp OPL QID 01/04/23 01/04/23 History ketorolac 0.5 % eye drops 1 drp OPB QID 01/04/23 01/04/23 History prednisolone acetate 1 % eye 1 drp OPL QID 01/04/23 01/04/23 History drops,suspension prednisolone acetate 1 % eye 1 drp OPR BID 01/04/23 01/04/23 History drops,suspension Past Med/Surg History Medical History Anemia Bladder leak CHF (congestive heart failure) follows with Kaushal Nieto PA-C Chronic back pain Chronic kidney disease (CKD), stage IV (severe) follows with Dr. Childress Diabetes mellitus, type 2 Hearing deficit History of COVID-19 04/26/22, pcr test MD, admitted>pneumonia>resolved. History of diverticular abscess of colon originally 10/23/21; admit to [facility] 08/07/22 History of kidney stones HTN (hypertension) Hx of basal cell carcinoma Hx of Clostridium difficile infection 10/23/21>dx; most recently 08/05/22 admitted to [facility] w/infection Hx of diverticulitis of colon 10/23/21>dx, [facility] Hx of gout Hx of left bundle branch block Hyperlipidemia Hypertension Kidney cysts LEFT SIDE>BEING MONITORED BY UROLOGY [facility] Morbid obesity with BMI of 40.0-44.9, adult Nocturnal hypoxemia WEARS 2L HS On home oxygen therapy 2L N/C at HS only Osteoarthritis Spinal stenosis of lumbar region with radiculopathy Surgical History H/O: hysterectomy History of arthroscopy LEFT KNEE History of arthroscopy of left knee History of bilateral tubal ligation History of cardiac cath ?2009--@ [facility] History of colonoscopy History of cystoscopy History of dilatation and curettage History of esophagogastroduodenoscopy (EGD) History of right cataract surgery History of tooth extraction all teeth Hx of appendectomy Hx of cholecystectomy Nausea and vomiting after administration of anesthetic agent + VERTIGO S/P epidural steroid injection Family History Sister Family history of diabetes mellitus Sister Family history of diabetes mellitus Brother Family history of diabetes mellitus Family history of esophageal cancer Brother Family history of esophageal cancer Father Lung cancer Other No family history of adverse response to anesthesia No significant family history Social History Smoking Status: Never smoker Second Hand Exposure: No; Hx Alcohol Use: No Hx Substance Use: No Preferred Language: [place] Citizen Communication Ability: Effective 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 Top 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 Required: No Beliefs That Will Affect Care: None marital status: / Current Living Situation: Family Current Living Situation Comment: With Son and Daughter in-law How many Children do You have: 2 Feels Safe at Home: Yes Assistive Devices: Denture - Upper, Denture - Lower, Glasses, Hearing Aid - Bilateral, Oxygen - at Night and Walker Review of Systems Review of Systems: As per HPI, all other systems reviewed and negative Physical Exam Physical Exam: GENERAL: Anxious, obese, uncomfortable, no respiratory distress SKIN: Pallor, warm HEENT: Transparent left eye shield over left orbit noted, pale palpebral conjunctivae, no ptosis, dry buccal mucosa NECK : Supple, short neck, no tenderness CHEST : Decreased breath sounds, no tenderness HEART : RRR, no obvious murmurs ABDOMEN: Some distention, minimal hypogastric tenderness EXTREMITIES : Minimal LE swelling , no LE tenderness, no other conspicuous deformities noted NEUROLOGIC : Coherent, no facial asymmetry, no other gross focality Results & Data Results & Data ([facility]) Vital Signs (Past 12 Hours) Vital Signs Temp Pulse Pulse Resp BP BP Pulse Ox 01/04/23 01:56 67 15 230/79 H 97 01/04/23 01:39 64 15 209/96 H 96 01/04/23 01:30 68 15 220/95 H 97 01/04/23 00:45 66 15 207/73 H 97 01/03/23 23:49 36.4 C L 67 16 209/85 H 98 01/03/23 23:49 67 01/03/23 23:35 36.5 C 82 18 160/75 H 97 O2 Del Method 01/04/23 01:56 Room Air 01/04/23 01:39 Room Air 01/04/23 01:30 Room Air 01/04/23 00:45 Room Air 01/03/23 23:49 Room Air 01/03/23 23:49 01/03/23 23:35 Room Air Laboratory Results Laboratory Results WBC 7.20 K/ul (4.8-10.8) 01/04/23 00:05 RBC 2.98 M/uL (4.20-5.40) L 01/04/23 00:05 Hgb 9.4 g/dl (12.0-16.0) L 01/04/23 00:05 Hct 27.7 % (37.0-47.0) L 01/04/23 00:05 MCV 93.0 fL (80.0-100.0) 01/04/23 00:05 MCH 31.5 pg (25.0-34.0) 01/04/23 00:05 MCHC 33.9 g/dL (32.0-36.0) 01/04/23 00:05 RDW Std Deviation 49.6 fL (36.4-46.3) H 01/04/23 00:05 RDW Coeff of Noemy 14.6 % (11.5-14.5) H 01/04/23 00:05 Plt Count 244 K/uL (130-400) 01/04/23 00:05 MPV 9.8 fL (9.4-12.4) 01/04/23 00:05 Immature Gran % (Auto) 0.3 % 01/04/23 00:05 Neut % (Auto) 68.1 % 01/04/23 00:05 Lymph % (Auto) 16.9 % 01/04/23 00:05 [place] % (Auto) 11.5 % 01/04/23 00:05 Eos % (Auto) 2.8 % 01/04/23 00:05 Baso % (Auto) 0.4 % 01/04/23 00:05 Neut # (Auto) 4.90 K/uL (1.40-6.50) 01/04/23 00:05 Lymph # (Auto) 1.22 K/uL (1.2-3.4) 01/04/23 00:05 [place] # (Auto) 0.83 K/uL (0.11-0.59) H 01/04/23 00:05 Eos # (Auto) 0.20 K/uL (0-0.50) 01/04/23 00:05 Baso # (Auto) 0.03 K/uL (0-0.2) 01/04/23 00:05 Immature Gran # (Auto) 0.02 K/uL (0.01-0.20) 01/04/23 00:05 PT 10.4 Seconds (9.0-12.0) 01/04/23 00:05 INR 1.0 (0.9-1.1) 01/04/23 00:05 APTT 32.3 Seconds (21.0-31.0) H 01/04/23 00:05 PTT Ratio 1.2 01/04/23 00:05 Sodium 139 mmol/L (136-145) 01/04/23 00:05 Potassium 3.6 mmol/L (3.5-5.1) 01/04/23 00:05 Chloride 101 mmol/L (98-107) 01/04/23 00:05 Carbon Dioxide 27 mmol/L (21-32) 01/04/23 00:05 Anion Gap 11 (3-11) 01/04/23 00:05 BUN 54 mg/dl (6-23) H 01/04/23 00:05 Creatinine 2.92 mg/dl (0.6-1.2) H 01/04/23 00:05 Est Cr Clr Drug Dosing 15.3 ml/min 01/04/23 00:05 Est GFR ( Amer) 15.9 ml/min 01/04/23 00:05 Est GFR (Non-Af Amer) 13.8 ml/min 01/04/23 00:05 BUN/Creatinine Ratio 18.5 (10-20) 01/04/23 00:05 Glucose 134 mg/dl (70-99(Fasting)) H 01/04/23 00:05 POC Glucose 143 mg/dl (70-99) H 01/03/23 23:59 Calcium 10.2 mg/dl (8.5-10.1) H 01/04/23 00:05 Phosphorus 3.6 mg/dl (2.5-4.9) 01/04/23 00:05 Magnesium 2.1 mg/dl (1.7-2.4) 01/04/23 00:05 Troponin I High Sens 11.3 pg/ml (0-14) 01/04/23 00:05 Lipase 38 U/L (11-82) 01/04/23 00:05 SARS-CoV-2, RNA, NAAT NEGATIVE (NEGATIVE) 01/04/23 00:25 Diagnostic Findings Chest x-ray as per my interpretation: Cardiomegaly, atelectasis, no overt congestion CT head: No acute intracranial process or significant alteration from the previous examination. CT abdomen and pelvis: 1. Both kidneys demonstrate diffuse cortical atrophy. No new hydronephrosis or ureteral stones identified. The bladder is decompressed without bladder stones or bladder wall thickening. 2. No evidence for bowel obstruction. Evaluation of the bowel mucosa is slightly limited without contrast; however, no definite focal asymmetry suggested. Scattered diverticulosis without definitive diverticulitis. No free intraperitoneal fluid or pneumoperitoneum. EKG as per my interpretation : Rate 70, NSR, LAD, LAFB, T wave flattening inferior leads
[2023-01-04] MEDS ORDERED: ALBUMIN 25% 12.5 GM/50 ML VIAL IV ONE (02:04)
[2023-01-04] MEDS ORDERED: FUROSEMIDE 40 MG/4 ML VIAL IV ONE ×2 (02:04→02:21)
[2023-01-04] MEDS ORDERED: NITROGLYCERIN SL 0.4 MG/TAB TAB SL PRN (02:09)
[2023-01-04] MEDS ORDERED: oxyCODONE HCL IR 5 MG TAB (IMMEDIATE RELEASE) PO PRN (02:09)
[2023-01-04] MEDS ORDERED: LORazepam 0.5 MG TAB PO PRN (02:09)
[2023-01-04] MEDS: PROMETHAZINE 12.5 MG/50.5 ML NSS IV ONE ×2 (02:21→03:04)
[2023-01-04 02:37] LABS: Appearance Urine Cloudy (Clear); Bacteria Urine Automated 1+ (Negative); Bilirubin Urine Negative (Negative); Blood Urine Negative (Negative); Cast Urine Automated 0 /lpf (0-5); Color Urine Yellow; Glucose Urine UA Negative (Negative); Ketones Urine Negative (Negative); Leukocyte Esterase Urine 1+ (Negative); Nitrite Urine Negative (Negative); Protein Urine 2+ (Negative); RBC Urine Automated 0-4 /hpf (0-4); Specific Gravity Urine 1.012 (1.000-1.030); Urobilinogen Urine Negative (Negative)
--- NOTE | 2023-01-04 03:52 | CT Scan Report ---
Exam(s): CT ABDOMEN + PELVIS Without Contrast EXAM: CT Abdomen and Pelvis Without Intravenous Contrast CLINICAL HISTORY: R flank pain. TECHNIQUE: Axial computed tomography images of the abdomen and pelvis without intravenous contrast. Automated exposure control was utilized for the study. A dose lowering technique was utilized adhering to the principles of ALARA. COMPARISON: 08/05/2022 FINDINGS: Lung bases: Unremarkable. No mass. No consolidation. ABDOMEN: Liver: Stable ovoid presumed cyst in the left lobe of the liver measuring 17 mm. Gallbladder and bile ducts: Cholecystectomy. No ductal dilation. Pancreas: Unremarkable. No ductal dilation. Spleen: Unremarkable. No splenomegaly. Adrenals: Unremarkable. No mass. Kidneys and ureters: Both kidneys demonstrate diffuse cortical atrophy. No new hydronephrosis or ureteral stones identified. The hyperdense left parapelvic renal cyst is similar in size measuring 4.6 x 5.1 cm from 4.8 x 4.9 cm. A hyperdense partially pedunculated structure along the posterior and inferior aspect of the right kidney measures 17 mm, stable. Stomach and bowel: No evidence for bowel obstruction. Evaluation of the bowel mucosa is slightly limited without contrast; however, no definite focal asymmetry suggested. Scattered diverticulosis without definitive diverticulitis. PELVIS: Appendix: No findings to suggest acute appendicitis. Bladder: Unremarkable. No stones. Reproductive: Stable hysterectomy. ABDOMEN and PELVIS: Intraperitoneal space: Unremarkable. No free air. No significant fluid collection. Bones/joints: No acute fracture. No dislocation. Soft tissues: The overlying soft tissues are stable with subcutaneous scarring or post injection changes in the periumbilical region. Vasculature: Extensive atherosclerotic calcification of the aorta without enlargement. Lymph nodes: Unremarkable. No enlarged lymph nodes. IMPRESSION: 1. Both kidneys demonstrate diffuse cortical atrophy. No new hydronephrosis or ureteral stones identified. The bladder is decompressed without bladder stones or bladder wall thickening. 2. No evidence for bowel obstruction. Evaluation of the bowel mucosa is slightly limited without contrast; however, no definite focal asymmetry suggested. Scattered diverticulosis without definitive diverticulitis. No free intraperitoneal fluid or pneumoperitoneum. Electronically signed by: Pradip Mancera MD 01/04/23 03:52 AM
--- NOTE | 2023-01-04 03:54 | CT Scan Report ---
Exam(s): CT HEAD Without Contrast EXAM: CT Head Without Intravenous Contrast CLINICAL HISTORY: garcia, htn crisis. TECHNIQUE: Axial computed tomography images of the head/brain without intravenous contrast. Automated exposure control was utilized for the study. A dose lowering technique was utilized adhering to the principles of ALARA. COMPARISON: 04/26/2022 FINDINGS: Brain: No intracranial hemorrhage. No significant mass-effect. No evidence for cortical infarct or significant alteration from the previous examination. Similar parenchymal involutional changes and mild periventricular deep white matter hypodense changes noted. Ventricles: Unremarkable. No ventriculomegaly. Bones/joints: Unremarkable. No acute fracture. Soft tissues: Unremarkable. Sinuses: Unremarkable as visualized. No acute sinusitis. Mastoid air cells: Unremarkable as visualized. No mastoid effusion. IMPRESSION: No acute intracranial process or significant alteration from the previous examination. Electronically signed by: Pradip Mancera MD 01/04/23 03:53 AM
[2023-01-04] MEDS ORDERED: POTASSIUM CHLORIDE PWD 20 MEQ PACK PO STA (04:55)
[2023-01-04] MEDS ORDERED: CEFEPIME 1,000 MG in SYRINGE 0 ML IV SCH (05:30)
[2023-01-04] MEDS ORDERED: DICLOFENAC SOD 1% GEL 100 GM TUBE EXT PRN (06:08)
[2023-01-04] MEDS ORDERED: SIMETHICONE 80 MG CHEW PO PRN (06:08)
[2023-01-04] MEDS ORDERED: DOCUSATE SODIUM 100 MG CAP PO PRN (06:08)
[2023-01-04] MEDS ORDERED: GLUCOSE 10 TAB/TUBE PO PRN (06:08)
[2023-01-04] MEDS ORDERED: DEXTROSE 50% 50 ML SYRINGE IV PRN (06:08)
[2023-01-04] MEDS ORDERED: CARBOHYDRATES FOR HYPOGLYCEMIA PO PRN (06:08)
[2023-01-04] MEDS ORDERED: GLUCAGON FOR INJ 1 MG VIAL SQ PRN (06:08)
[2023-01-04] MEDS ORDERED: PROMETHAZINE HCL 12.5 MG in SODIUM CHLORIDE 0.9% 50 ML IV PRN (06:08)
[2023-01-04] MEDS ORDERED: POLYETHYLENE (MIRALAX) 17 GM PACK PO PRN (06:08)
[2023-01-04] MEDS ORDERED: GLUCOSE 40% GEL 15 GM TUBE PO PRN (06:08)
[2023-01-04] MEDS ORDERED: LIDOCAINE 5% 1 PATCH TD PRN (06:26)
--- NOTE | 2023-01-04 07:08 | XRay Report ---
XR chest 1V portable CLINICAL HISTORY: Chest pain, nonspecific COMPARISON STUDY: Chest CT June 16, 2022. Chest radiograph August 09, 2022. FINDINGS: There is no pneumothorax or pleural effusion. Cardiomegaly is unchanged. There is no eviden ce for pulmonary edema. No consolidation is identified. There has been no significant change in appea joseph of the chest. IMPRESSION: No acute cardiopulmonary findings. Cardiomegaly. No change in appearance of the chest. ACT 112: Negative or not required by law. Electronically signed by: Chai Morales M.D. 01/04/2023 7:06 AM
[2023-01-04 07:22] LABS: Basophils # (auto) 0.04 K/uL (0-0.2); Basophils % (auto) 0.6 %; Eosinophils # (auto) 0.26 K/uL (0-0.50); Eosinophils % (auto) 3.9 %; Hematocrit (blood only) 29.6 % (37.0-47.0); Hemoglobin 9.9 g/dl (12.0-16.0); Immature Granulocytes # (auto) 0.02 K/uL (0.01-0.20); Immature Granulocytes % (auto) 0.3 %; Lymphocytes # (auto) 1.34 K/uL (1.2-3.4); Lymphocytes % (auto) 20.2 %; Mean Corpuscular Hemoglobin 31.3 pg (25.0-34.0); Mean Corpuscular Hgb Conc 33.4 g/dL (32.0-36.0); Mean Corpuscular Volume 93.7 fL (80.0-100.0); Mean Platelet Volume 9.6 fL (9.4-12.4); Monocytes # (auto) 0.72 K/uL (0.11-0.59); Monocytes % (auto) 10.8 %; Neutrophils # (auto) 4.26 K/uL (1.40-6.50); Neutrophils % (auto) 64.2 %; Platelet Count 248 K/uL (130-400); RDW Coefficient of Variation 14.5 % (11.5-14.5); RDW Standard Deviation 49.8 fL (36.4-46.3); Red Blood Count 3.16 M/uL (4.20-5.40); White Blood Count 6.64 K/ul (4.8-10.8)
[2023-01-04 07:40] LABS: BUN Creatinine Ratio 18.5 (10-20); Calcium 10.5 mg/dl (8.5-10.1); Creatinine Clr Calc Pharmacy 15.6 ml/min; Est GFR (African American) 16.7 ml/min; Est GFR (Non-African American) 14.4 ml/min; Potassium 3.7 mmol/L (3.5-5.1)
[2023-01-04] MEDS ORDERED: carvediloL 25 MG TAB PO SCH (08:00)
[2023-01-04 08:20] LABS: Estimated Average Glucose 137 mg/dl; Hemoglobin A1C 6.4 % (4.5-5.6)
[2023-01-04] MEDS: HEPARIN SOD 5,000 UNIT/0.5 ML VIAL SQ SCH ×3 (08:37→17:32)
--- NOTE | 2023-01-04 08:37 | Cardiology Consultation ---
Date of Consultation January 04, 2023 Assessment & Plan (1) Chest pain: (2) CKD (chronic kidney disease): (3) Hypertensive urgency: (4) Congestive heart failure: Plan IMPRESSION: 87 year old female who presented to the ED due to twinges of chest pain, SOB, leg edema, and weakness. Patient was hypervolemic on exam and treated with 60 mg IV Lasix. BP elevated in the 200s systolic. PLAN: Symptoms of SOB and edema resolved since IV Lasix- Patient appears to be better compensated from a volume standpoint. BP remain elevated. Appreciate nephrology input regarding diuretic/BP management. Will reassess BP this afternoon- following morning administration of medications. Considerations to be given regarding starting low dose nifedipine. Chest pain appears to be msk in nature and not related to ACS. Pain reproducible with palptation. EKG without acute ST/T wave changes. Echo with a preserved LVEF and no new WMA. HS trop negative x2. Case discussed with Dr. Long- will follow. Supervising Physician Co-Signing Physician Notes I have personally seen and examined the patient along with Kayla CHAMPAGNE. Patient complains of intermittent sharp/stabbing chest discomfort lasting less than 10 seconds. Discomfort is sporadic and not associated with exertion. Denies any exertional chest tightness, heaviness, or pressure. No orthopnea, or PND. Treated with IV Lasix in ER. Blood pressure trending downward. The medical record and all available studies have been reviewed. Please refer to the note as detailed above for full PMH, PSH, social hx, family hx, active medication list and allergies. PE: Hypertensive, otherwise stable vital signs. General: NAD, awake alert and oriented x3. Heart: Regular rhythm, normal S1-S2. No murmur appreciated. Lungs: Clear bilateral, no rales, rhonchi, wheeze extremities: No edema. After discussion with Kayla CHAMPAGNE, I fully agree with the assessment and plan as documented above. No evidence of acute coronary syndrome. Patient presents with elevated blood pressure in the setting of acute urinary tract infection. Antibiotic therapy as per internal medicine. Appreciate nephrology input. Patient does not examine volume overloaded currently. Hold off on additional diuretic therapy at this time. Appreciate nephrology input. Consider addition of calcium channel ada therapy pending clinical course. History of Present Illness Reason for Consultation: Hypertensive crisis and chest pain Requesting Physician: Brian hospitalist Attending Physician: Beverley Byers MD History of Present Illness 87-year-old female who initially presented to [facility] emergency department due to intermittent left-sided chest pain x1 month associated with some shortness of breath and fluid retention. Blood pressures hypertensive on presentation with systolics in the 160s to 200s Seen by [facility] nephrology on 12/28. Patient was hypertensive with systolic readings 160s 180s at home. Spironolactone was added-felt sick after taking this medication (nausea/weakness). Lasix was increased from 40 mg daily to 40 mg in the morning and 20 mg as needed for ankle swelling. Left cataract eye surgery on 01/03. She was given 60 mg of IV Lasix this morning around 2 AM. Was also given a one-time dose of IV labetalol and IV hydralazine by hospitalist team. Upon entrance into the room patient mentioned a constellation of symptoms. Son at bedside. Notes that over the last month she has been having fleeting episodes of left sided chest discomfort that occurs at rest. If she presses on the spot of discomfort symptoms improve. Yesterday felt like she was "suffocating"- symptoms resolved since receiving IV Lasix. Noted lower extremity edema x1 week- now resolved. Was having nausea and diarrhea with Aldactone use, has resolved since stopping. Denies palpitations. No dizziness/lightheadedness, notes weakness and fatigue. Chest x-ray: No acute findings Echo: LVEF 55-60%, no WMA. 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 Childress (baseline scr 2.3) Hyperdense left renal cyst, follows with urology, Dr. Murillo Type 2 diabetes-insulin requiring Nocturnal hypoxemia, treated with supplemental O2 at night ? Chart history of PAF GERD History of C. difficile colitis 07/2022 Chronic back pain Allergies Allergy/AdvReac Type Severity Reaction Status Date / Time spironolactone AdvReac Intermediate weakness Verified 01/04/23 02:20 Home Medications Medication Instructions Recorded Confirmed Type aspirin 81 mg tablet,delayed 81 mg PO QAM 12/30/18 01/04/23 History release rosuvastatin 10 mg tablet 10 mg PO HS 12/30/18 01/04/23 History famotidine 20 mg tablet (Pepcid) 20 mg PO QPM@1700 11/18/19 01/04/23 History lidocaine 4 % topical patch 1 patch topical DAILY PRN Pain 06/23/20 01/04/23 History (Salonpas (lidocaine)) diclofenac sodium 1 % topical gel 4 g topical QID PRN Pain 03/17/21 01/04/23 History cyanocobalamin (vitamin B-12) 500 500 mcg PO QAM #30 tabs 03/27/21 01/04/23 Rx mcg tablet carvedilol 25 mg tablet 25 mg PO BIDM 06/13/21 01/04/23 History hydralazine 100 mg tablet 100 mg PO TID 06/13/21 01/04/23 History Saccharomyces boulardii 250 mg 250 mg PO QAM 08/26/21 01/04/23 History capsule (Florastor) ondansetron 4 mg disintegrating 4 mg PO Q6H PRN nausea and 11/25/21 01/04/23 Rx tablet vomiting #14 tabs acetaminophen 500 mg tablet 1,000 mg PO BID 04/26/22 01/04/23 History (Tylenol Extra Strength) allopurinol 100 mg tablet 200 mg PO DAILY 04/26/22 01/04/23 History simethicone 80 mg chewable tablet 80 mg PO DIRECTED PRN GAS 04/26/22 01/04/23 History calcitriol 0.25 mcg capsule 0.25 mcg PO QAM #90 caps 07/18/22 01/04/23 Rx insulin human U-100 NPH-regulr 25 - 70 unit subcut BID 08/05/22 01/04/23 History 70-30 mix 100 unit/mL subcutaneous susp (Humulin 70/30 U-100 Insulin) isosorbide dinitrate 20 mg tablet 40 mg PO TID 08/05/22 01/04/23 History omeprazole 20 mg capsule,delayed 20 mg PO QAM 08/05/22 01/04/23 History release docusate sodium 100 mg capsule 100 mg PO BID PRN Constipation 12/14/22 01/04/23 History (Colace) furosemide 20 mg tablet 20 mg PO QAM 12/14/22 01/04/23 History polyethylene glycol 3350 17 17 g PO BID PRN Constipation 12/14/22 01/04/23 History gram/dose oral powder (Miralax) sennosides 8.6 mg tablet (Senna 8.6 mg PO BID PRN Constipation 12/14/22 01/04/23 History Lax) spironolactone 25 mg tablet 25 mg PO DAILY #90 tabs 01/02/23 01/04/23 Rx gatifloxacin 0.5 % eye drops 1 drp OPL QID 01/04/23 01/04/23 History ketorolac 0.5 % eye drops 1 drp OPB QID 01/04/23 01/04/23 History prednisolone acetate 1 % eye 1 drp OPL QID 01/04/23 01/04/23 History drops,suspension prednisolone acetate 1 % eye 1 drp OPR BID 01/04/23 01/04/23 History drops,suspension Patient History Medical History Anemia Bladder leak CHF (congestive heart failure) follows with Kaushal Nieto PA-C Chronic back pain Chronic kidney disease (CKD), stage IV (severe) follows with Dr. Childress Diabetes mellitus, type 2 Hearing deficit History of COVID-19 04/26/22, pcr test [place], admitted>pneumonia>resolved. History of diverticular abscess of colon originally 10/23/21; admit to [facility] 08/07/22 History of kidney stones HTN (hypertension) Hx of basal cell carcinoma Hx of Clostridium difficile infection 10/23/21>dx; most recently 08/05/22 admitted to [facility] w/infection Hx of diverticulitis of colon 10/23/21>dx, [facility] Hx of gout Hx of left bundle branch block Hyperlipidemia Hypertension Kidney cysts LEFT SIDE>[place] [facility] [place]bid obesity with BMI of 40.0-44.9, adult Nocturnal hypoxemia WEARS 2L HS On home oxygen therapy 2L N/C at HS only Osteoarthritis Spinal stenosis of lumbar region with radiculopathy Surgical History H/O: hysterectomy History of arthroscopy LEFT KNEE History of arthroscopy of left knee History of bilateral tubal ligation History of cardiac cath ?2009--@ [facility]--no stents History of colonoscopy History of cystoscopy History of dilatation and curettage History of esophagogastroduodenoscopy (EGD) History of right cataract surgery History of tooth extraction all teeth Hx of appendectomy Hx of cholecystectomy Nausea and vomiting after administration of anesthetic agent + VERTIGO S/P epidural steroid injection Family History Sister Family history of diabetes mellitus Sister Family history of diabetes mellitus Brother Family history of diabetes mellitus Family history of esophageal cancer Brother Family history of esophageal cancer Father Lung cancer Other No family history of adverse response to anesthesia No significant family history Social History Smoking Status: Never smoker Second Hand Exposure: No; Do You Dip or Chew Tobacco: No; Hx Alcohol Use: No Hx Substance Use: No Preferred Language: Moroccan Communication Ability: Effective 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 Beliefs That Will Affect Care: None marital status: / Current Living Situation: Family Current Living Situation Comment: lives with son How many Children do You have: 2 Other Information That Helps Us Care for You: No Feels Safe at Home: Yes Safety Concerns: Feels Safe At This Time Assistive Devices: Denture - Upper, Denture - Lower, Glasses, Hearing Aid - Bilateral, Oxygen - at Night and Walker Assistive Devices Comment: hearing aids and walker at home Review of Systems Review of Systems: All systems reviewed & are unremarkable except as noted in HPI & below Physical Exam Constitutional: WD/WN, vitals as above no acute distress Neck: normal visual inspection and trachea midline Respiratory: normal respiratory effort; no respiratory distress, no cough and not tachypneic Auscultation: + diminished lung sounds and + rales; no rhonchi and no wheezes Cardiovascular: Rate/Rhythm: regular rate and regular rhythm Heart Sounds: normal S1, normal S2 and + murmur (+2/6 systolic murmur) Vessels: no JVD Extremities: no edema Gastrointestinal (Abdomen): normal bowel sounds, soft, nontender, no hepatosplenomegaly Skin: no rashes, warm and dry Psychiatric: A+Ox3, euthymic affect Results & Data ([facility]) Vital Signs (Past 12 Hours) Vital Signs Temp Pulse Pulse Pulse Resp BP BP 01/04/23 05:30 01/04/23 05:30 36.4 C L 81 18 194/86 H 01/04/23 06:29 82 176/68 H 01/04/23 05:16 74 16 200/68 H 01/04/23 05:15 76 18 01/04/23 05:01 75 18 172/69 H 01/04/23 05:00 75 17 01/04/23 04:45 76 18 182/66 H 01/04/23 04:30 82 17 184/75 H 01/04/23 04:15 77 16 170/62 H 01/04/23 04:00 81 14 187/70 H 01/04/23 03:46 82 19 190/69 H 01/04/23 03:45 82 18 01/04/23 03:30 81 21 208/78 H 01/04/23 03:15 80 16 190/79 H 01/04/23 03:10 83 22 188/68 H 01/04/23 03:00 83 19 01/04/23 02:45 82 22 01/04/23 02:43 81 19 226/88 H 01/04/23 02:40 01/04/23 02:15 72 19 01/04/23 02:01 66 22 210/93 H 01/04/23 02:00 72 20 01/04/23 01:56 67 19 230/79 H 01/04/23 01:45 64 20 01/04/23 01:38 68 18 209/96 H 01/04/23 01:30 66 18 220/95 H 01/04/23 01:15 67 22 01/04/23 01:00 65 14 222/73 H 01/04/23 00:45 71 22 01/04/23 00:44 78 22 207/73 H 01/04/23 00:30 68 22 01/04/23 00:15 66 15 01/04/23 00:00 68 20 01/03/23 23:47 67 22 01/03/23 23:47 01/04/23 03:50 85 01/04/23 02:46 68 16 01/04/23 01:56 67 15 01/04/23 01:39 64 15 01/04/23 01:30 68 15 01/04/23 00:45 66 15 01/03/23 23:49 36.4 C L 67 16 01/03/23 23:49 67 01/03/23 23:35 36.5 C 82 18 160/75 H BP Pulse Ox O2 Del Method 01/04/23 05:30 Room Air 01/04/23 05:30 98 Room Air 01/04/23 06:29 01/04/23 05:16 95 Room Air 01/04/23 05:15 96 Room Air 01/04/23 05:01 96 Room Air 01/04/23 05:00 94 Room Air 01/04/23 04:45 96 Room Air 01/04/23 04:30 96 Room Air 01/04/23 04:15 94 Room Air 01/04/23 04:00 96 Room Air 01/04/23 03:46 96 Room Air 01/04/23 03:45 95 Room Air 01/04/23 03:30 96 Room Air 01/04/23 03:15 96 Room Air 01/04/23 03:10 95 Room Air 01/04/23 03:00 95 Room Air 01/04/23 02:45 95 Room Air 01/04/23 02:43 95 Room Air 01/04/23 02:40 94 Room Air 01/04/23 02:15 98 Room Air 01/04/23 02:01 96 Room Air 01/04/23 02:00 98 Room Air 01/04/23 01:56 97 Room Air 01/04/23 01:45 98 Room Air 01/04/23 01:38 96 Room Air 01/04/23 01:30 98 Room Air 01/04/23 01:15 96 Room Air 01/04/23 01:00 98 Room Air 01/04/23 00:45 97 Room Air 01/04/23 00:44 97 Room Air 01/04/23 00:30 97 Room Air 01/04/23 00:15 97 Room Air 01/04/23 00:00 98 Room Air 01/03/23 23:47 98 Room Air 01/03/23 23:47 93 Room Air 01/04/23 03:50 01/04/23 02:46 226/88 H 96 Room Air 01/04/23 01:56 230/79 H 97 Room Air 01/04/23 01:39 209/96 H 96 Room Air 01/04/23 01:30 220/95 H 97 Room Air 01/04/23 00:45 207/73 H 97 Room Air 01/03/23 23:49 209/85 H 98 Room Air 01/03/23 23:49 01/03/23 23:35 97 Room Air Laboratory Results Cardiac Enzymes 01/04/23 01/04/23 Range/Units 00:05 03:05 Troponin I High Sens 11.3 9.8 (0-14) pg/ml Coagulation 01/04/23 Range/Units 00:05 PT 10.4 (9.0-12.0) Seconds APTT 32.3 H (21.0-31.0) Seconds CBC 01/04/23 01/04/23 Range/Units 00:05 06:40 WBC 7.20 6.64 (4.8-10.8) K/ul RBC 2.98 L 3.16 L (4.20-5.40) M/uL Hgb 9.4 L 9.9 L (12.0-16.0) g/dl Hct 27.7 L 29.6 L (37.0-47.0) % Plt Count 244 248 (130-400) K/uL Neut # (Auto) 4.90 4.26 (1.40-6.50) K/uL Lymph # (Auto) 1.22 1.34 (1.2-3.4) K/uL Page # (Auto) 0.83 H 0.72 H (0.11-0.59) K/uL Eos # (Auto) 0.20 0.26 (0-0.50) K/uL Baso # (Auto) 0.03 0.04 (0-0.2) K/uL Comprehensive Metabolic Panel 01/04/23 01/04/23 Range/Units 00:05 06:40 Sodium 139 141 (136-145) mmol/L Potassium 3.6 3.7 (3.5-5.1) mmol/L Chloride 101 102 (98-107) mmol/L Carbon Dioxide 27 31 (21-32) mmol/L BUN 54 H 52 H (6-23) mg/dl Creatinine 2.92 H 2.81 H (0.6-1.2) mg/dl Glucose 134 H 109 H (70-99(Fasting)) mg/dl Calcium 10.2 H 10.5 H (8.5-10.1) mg/dl Intake and Output 01/03/23 01/04/23 01/04/23 22:59 06:59 14:59 Intake Total 600.917 / 600.917 Balance 600.917 / 600.917 Intake: IV 600.917 / 600.917 Albumin 25% 12.5 gm In 50 ml @ 50 / 50 50 mls/hr IV ONE ONE Rx#: [id number] Sodium Chloride 0.9% 500 ml @ 500.417 / 500.417 50 mls/hr IV .Q10H ONE Rx#: [id number] Other: # Unmeasured Voids 1 Weight 92.7 kg Weight Measurement Method Built in [facility] (1) Chest pain Chest pain type: unspecified Qualified Code(s): R07.9 - Chest pain, unspecified
[2023-01-04] MEDS: ASPIRIN 81 MG ECTAB PO SCH (08:38)
[2023-01-04] MEDS: carvediloL 25 MG TAB PO SCH ×2 (08:39→17:22)
[2023-01-04] MEDS: SACCHAROMYCES BOULARDII 250 MG CAP PO SCH (08:39)
[2023-01-04] MEDS: PANTOprazole 40 MG TAB PO SCH (08:39)
[2023-01-04] MEDS: hydrALAZINE TAB 50 MG TAB PO SCH ×3 (08:40→20:14)
[2023-01-04] MEDS: allopurinoL 100 MG TAB PO SCH (08:40)
[2023-01-04] MEDS: CYANOCOBALAMIN (B-12) 500 MCG TABLET PO SCH (08:41)
[2023-01-04] MEDS: KETOROLAC 0.5% OP SOLN 5 ML BTL OPB SCH ×4 (08:43→20:11)
[2023-01-04] MEDS ORDERED: ISOSORBIDE DINITRATE 40 MG TAB PO SCH (09:00)
[2023-01-04] MEDS ORDERED: hydrALAZINE TAB 50 MG TAB PO SCH (09:00)
[2023-01-04] MEDS ORDERED: CALCITRIOL 0.25 MCG CAPSULE PO SCH (09:00)
[2023-01-04] MEDS: LANTUS PER UNIT CHARGE SQ SCH (09:03)
[2023-01-04] MEDS: prednisoLONE acetate 1% OP SUSP 5 ML BTL OPL SCH ×4 (09:04→20:12)
[2023-01-04] MEDS: ISOSORBIDE DINITRATE 40 MG TAB PO SCH ×3 (09:07→17:32)
[2023-01-04] MEDS: INSULIN ASPART PER UNIT CHARGE SC SCH ×4 (09:58→21:16)
--- NOTE | 2023-01-04 11:49 | Hospitalist Progress Note ---
Date of Service January 04, 2023 Assessment & Plan (1) Hypertensive urgency: Plan: BP went up to 230/79 on presentation Now down to 144/67 Reports her BP had been trending up to 180s at home Continue carvedilol 25 bid, hydralazine 100 tid Continue isosorbide dinitrate 40 TID Cards eval/recs noted Got IV lasix yesterday. 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 Patient reported she did not tolerate the spironolactone Stated she felt nausea/sick, had nahomi horses and felt weak the two times she took the med Chest pain Trop is normal No ST-T changes on EKG TTE noted EF of 55-60%, GI DD, mod MR/TR, RVSP 40-50mmHg Possible UTI UA suggestive of UTI Follow up UCx Change cefepime to ceftriaxone History of chronic diastolic heart failure DM2 insulin requiring Hypoglycemic episodes at home as per family per HPI Likely from worsening kidney dysfunction Hemoglobin A1c was 6.4 today Monitor blood glucose and insulin requirement inpatient Will need dose adjustment on dc GERD, Stable on regimen Chronic anemia, Hemoglobin at baseline DVT ppx - hep sq I spent a total of 45 minutes coordinating, documenting and providing care for this patient excluding time spent in performance of separately billed services Admission and Anticipated Discharge Date Admission Date: January 04, 2023 Subjective Patient seen and examined Reports feeling tired Currently denied any chest pain. Stated she has been having chest pain intermittent over months, not related to activity, occasionally feels like twinges Reports occasional right sided abd pain. None at this time Denied any nausea or vomiting today Denied diarrhea Reported small leg swelling she had has resolved Denied fever, chills, nausea Reports increased urination which she attributed to the diuretic Physical Exam Constitutional: + well hydrated; no acute distress Eyes: PERRL, conjunctivae normal, anicteric sclerae ENMT: external ear and nose normal, oropharynx normal Respiratory: normal respiratory effort, lungs clear to auscultation Cardiovascular: Rate/Rhythm: regular rate and regular rhythm S1 S2 Gastrointestinal (Abdomen): normal bowel sounds, soft, nontender, no hepatosplenomegaly Musculoskeletal: No pedal edema Neurologic: PERRL, EOMI, accommodation nl, no face palsy, no dysarthria Psychiatric: A+Ox3, euthymic affect Results & Data Results & Data Vital Signs (Past 12 Hours) Vital Signs Temp Pulse Pulse Pulse Resp BP BP 01/04/23 11:15 36.4 C L 81 19 144/67 H 01/04/23 08:00 70 01/04/23 08:18 36.3 C L 73 19 01/04/23 05:30 01/04/23 05:30 36.4 C L 81 18 194/86 H 01/04/23 06:29 82 176/68 H 01/04/23 05:16 74 16 200/68 H 01/04/23 05:15 76 18 01/04/23 05:01 75 18 172/69 H 01/04/23 05:00 75 17 01/04/23 04:45 76 18 182/66 H 01/04/23 04:30 82 17 184/75 H 01/04/23 04:15 77 16 170/62 H 01/04/23 04:00 81 14 187/70 H 01/04/23 03:46 82 19 190/69 H 01/04/23 03:45 82 18 01/04/23 03:30 81 21 208/78 H 01/04/23 03:15 80 16 190/79 H 01/04/23 03:10 83 22 188/68 H 01/04/23 03:00 83 19 01/04/23 02:45 82 22 01/04/23 02:43 81 19 226/88 H 01/04/23 02:40 01/04/23 02:15 72 19 01/04/23 02:01 66 22 210/93 H 01/04/23 02:00 72 20 01/04/23 01:56 67 19 230/79 H 01/04/23 01:45 64 20 01/04/23 01:38 68 18 209/96 H 01/04/23 01:30 66 18 220/95 H 01/04/23 01:15 67 22 01/04/23 01:00 65 14 222/73 H 01/04/23 00:45 71 22 01/04/23 00:44 78 22 207/73 H 01/04/23 00:30 68 22 01/04/23 00:15 66 15 01/04/23 00:00 68 20 01/04/23 03:50 85 01/04/23 02:46 68 16 01/04/23 01:56 67 15 01/04/23 01:39 64 15 01/04/23 01:30 68 15 01/04/23 00:45 66 15 BP Pulse Ox O2 Del Method 01/04/23 11:15 96 Room Air 01/04/23 08:00 01/04/23 08:18 186/63 H 93 Room Air 01/04/23 05:30 Room Air 01/04/23 05:30 98 Room Air 01/04/23 06:29 01/04/23 05:16 95 Room Air 01/04/23 05:15 96 Room Air 01/04/23 05:01 96 Room Air 01/04/23 05:00 94 Room Air 01/04/23 04:45 96 Room Air 01/04/23 04:30 96 Room Air 01/04/23 04:15 94 Room Air 01/04/23 04:00 96 Room Air 01/04/23 03:46 96 Room Air 01/04/23 03:45 95 Room Air 01/04/23 03:30 96 Room Air 01/04/23 03:15 96 Room Air 01/04/23 03:10 95 Room Air 01/04/23 03:00 95 Room Air 01/04/23 02:45 95 Room Air 01/04/23 02:43 95 Room Air 01/04/23 02:40 94 Room Air 01/04/23 02:15 98 Room Air 01/04/23 02:01 96 Room Air 01/04/23 02:00 98 Room Air 01/04/23 01:56 97 Room Air 01/04/23 01:45 98 Room Air 01/04/23 01:38 96 Room Air 01/04/23 01:30 98 Room Air 01/04/23 01:15 96 Room Air 01/04/23 01:00 98 Room Air 01/04/23 00:45 97 Room Air 01/04/23 00:44 97 Room Air 01/04/23 00:30 97 Room Air 01/04/23 00:15 97 Room Air 01/04/23 00:00 98 Room Air 01/04/23 03:50 01/04/23 02:46 226/88 H 96 Room Air 01/04/23 01:56 230/79 H 97 Room Air 01/04/23 01:39 209/96 H 96 Room Air 01/04/23 01:30 220/95 H 97 Room Air 01/04/23 00:45 207/73 H 97 Room Air Laboratory Results Abnormal lab results 01/03/23 01/04/23 01/04/23 Range/Units 23:59 00:05 00:05 RBC 2.98 L (4.20-5.40) M/uL Hgb 9.4 L (12.0-16.0) g/dl Hct 27.7 L (37.0-47.0) % RDW Std Deviation 49.6 H (36.4-46.3) fL RDW Coeff of Noemy 14.6 H (11.5-14.5) % [place] # (Auto) 0.83 H (0.11-0.59) K/uL APTT 32.3 H (21.0-31.0) Seconds BUN (6-23) mg/dl Creatinine (0.6-1.2) mg/dl Glucose (70-99(Fasting)) mg/dl POC Glucose 143 H (70-99) mg/dl Hemoglobin A1c (4.5-5.6) % Calcium (8.5-10.1) mg/dl Urine Appearance (Clear) Urine Protein (Negative) Ur Leukocyte Esterase (Negative) Urine WBC (Auto) (0-5) /hpf U Epithel Cells (Auto) (0-5) /lpf Urine Bacteria (Auto) (Negative) 01/04/23 01/04/23 01/04/23 Range/Units 00:05 00:05 02:24 RBC (4.20-5.40) M/uL Hgb (12.0-16.0) g/dl Hct (37.0-47.0) % RDW Std Deviation (36.4-46.3) fL RDW Coeff of Noemy (11.5-14.5) % [place] # (Auto) (0.11-0.59) K/uL APTT (21.0-31.0) Seconds BUN 54 H (6-23) mg/dl Creatinine 2.92 H (0.6-1.2) mg/dl Glucose 134 H (70-99(Fasting)) mg/dl POC Glucose (70-99) mg/dl Hemoglobin A1c 6.4 H (4.5-5.6) % Calcium 10.2 H (8.5-10.1) mg/dl Urine Appearance Cloudy A (Clear) Urine Protein 2+ H (Negative) Ur Leukocyte Esterase 1+ H (Negative) Urine WBC (Auto) 10-30 H (0-5) /hpf U Epithel Cells (Auto) 5-10 H (0-5) /lpf Urine Bacteria (Auto) 1+ H (Negative) 01/04/23 01/04/23 01/04/23 Range/Units 06:18 06:40 06:40 RBC 3.16 L (4.20-5.40) M/uL Hgb 9.9 L (12.0-16.0) g/dl Hct 29.6 L (37.0-47.0) % RDW Std Deviation 49.8 H (36.4-46.3) fL RDW Coeff of Noemy (11.5-14.5) % [place] # (Auto) 0.72 H (0.11-0.59) K/uL APTT (21.0-31.0) Seconds BUN 52 H (6-23) mg/dl Creatinine 2.81 H (0.6-1.2) mg/dl Glucose 109 H (70-99(Fasting)) mg/dl POC Glucose 102 H (70-99) mg/dl Hemoglobin A1c (4.5-5.6) % Calcium 10.5 H (8.5-10.1) mg/dl Urine Appearance (Clear) Urine Protein (Negative) Ur Leukocyte Esterase (Negative) Urine WBC (Auto) (0-5) /hpf U Epithel Cells (Auto) (0-5) /lpf Urine Bacteria (Auto) (Negative) 01/04/23 01/04/23 Range/Units 07:22 11:21 RBC (4.20-5.40) M/uL Hgb (12.0-16.0) g/dl Hct (37.0-47.0) % RDW Std Deviation (36.4-46.3) fL RDW Coeff of Noemy (11.5-14.5) % [place] # (Auto) (0.11-0.59) K/uL APTT (21.0-31.0) Seconds BUN (6-23) mg/dl Creatinine (0.6-1.2) mg/dl Glucose (70-99(Fasting)) mg/dl POC Glucose 122 H 157 H (70-99) mg/dl Hemoglobin A1c (4.5-5.6) % Calcium (8.5-10.1) mg/dl Urine Appearance (Clear) Urine Protein (Negative) Ur Leukocyte Esterase (Negative) Urine WBC (Auto) (0-5) /hpf U Epithel Cells (Auto) (0-5) /lpf Urine Bacteria (Auto) (Negative)
[2023-01-04] MEDS: GATIFLOXACIN 0.5% OP SOLN 2.5 ML BTL OPL SCH ×3 (12:03→20:11)
[2023-01-04] MEDS: prednisoLONE acetate 1% OP SUSP 5 ML BTL OPR SCH ×2 (12:04→14:38)
--- NOTE | 2023-01-04 12:25 | Nephrology Consultation ---
Date of Consultation January 04, 2023 Assessment & Plan (1) Hypertension: BP improving. Volume status acceptable. Plan of care reviewed with cardiology. Continue home dose carvedilol 25 mg BID, hydralazine 100 mg TID, and isosorbide dinitrate 40 mg TID. Thais states that she did not tolerate spironolactone and is reluctant to try the medication again. She developed notable LE with amlodipine in the past and stopped the medication. May consider low dose nifedipine if BP remains above goal. I believe there has been improvement with some increase in diuretic. Will monitor. (2) Acute renal failure superimposed on stage 4 chronic kidney disease: Non-oliguric. Electrolytes acceptable. Volume status acceptable. Possible component of R CHF which appears to be improving following IV furosemide. Document I/O's. Repeat metabolic profile tomorrow AM. (3) Chronic kidney disease (CKD), stage IV (severe): Records from Dr. Childress reviewed. CKD IV A3. HD not to be considered part of care plan. Creatinine slightly elevated from baseline 2.3 mg/dL but stable. Medications appropriately dosed for kidney function. Document I/Os. Renal diet. Repeat metabolic profile tomorrow AM. (4) Cyst of kidney, acquired: Imaging studies and urology notes reviewed. No concerning interval changes or symptoms. No additional evaluation at this time. (5) Secondary hyperparathyroidism: Seum calcium slightly elevated. PTH 75 is not completely suppressed. Calcitriol will be held and prospective monitoring provided. Repeat metabolic profile tomorrow AM. History of Present Illness Reason for Consultation: arf ckd, htn Requesting Physician: Beverley Byers MD Attending Physician: Beverley Byers MD History of Present Illness Mrs. Thais Rollins is an 87 year-old female with chronic kidney disease and hypertension. She follows in the nephrology clinic with Dr. Childress. Thais recently saw Dr. Childress on 12/28/22. BP was found to be elevated and spironolactone 25 mg daily was prescribed. Unfortunately, she developed nausea and abdominal upset shortly after taking the medication. She stopped the medication due to symptoms and due to the severity of the symptoms is reluctant to restart. Unfortunately, her BP remains elevated and she presented to [facility] yesterday with concerns related to persistent elevated BP readings and generally feeling unwell. Symptoms include concerning twinges of chest pain and persistent abdominal discomfort. Thais reports feeling very fatigued most of the time and her activity tolerance appears to be reduced through she denies notable AQUINO. She had noticed some increased edema in her legs several days ago but this improved after keeping them elevated and taking an additional 20 mg of furosemide. She was seen and evaluated in her hospital room with her son present at the bedside this month. I discussed the history and plan of care with MAHI Foy. Thais has CKD stage G4/A3 attributed to DKD, hypertension, and microvascular di sease. She has never had a kidney biopsy.Baseline Cr 2.3.Urine sediment has been acellular.UPCR 1.2. Renal arteriogram 06/28 was negative for flow limiting lesion. Renal US w/ mild renal asymmetry. Thais has a 4-5 cm complex cyst in the left kidney which has been monitored by urology. Due to the advanced nature of her kidney dysfunction, no intervention is recommended, notably due to potential progression to ESKD. Due to age and medical comorbidities, Dr. Childress has advised that Thais is not a candidate for [facility] and Thais has expressed understanding/agreement. She did not sleep last night and was uncomfortable and tired this AM. BP improving following medical therapy. IV labetalol and hydralazine provided in the ER. Furosemide 60 mg IV provided this AM. TTE completed this AM and reviewed today. Allergies Allergy/AdvReac Type Severity Reaction Status Date / Time spironolactone AdvReac Intermediate weakness Verified 01/04/23 02:20 Home Medications Medication Instructions Recorded Confirmed Type aspirin 81 mg tablet,delayed 81 mg PO QAM 12/30/18 01/04/23 History release rosuvastatin 10 mg tablet 10 mg PO HS 12/30/18 01/04/23 History famotidine 20 mg tablet (Pepcid) 20 mg PO QPM@1700 11/18/19 01/04/23 History lidocaine 4 % topical patch 1 patch topical DAILY PRN Pain 06/23/20 01/04/23 History (Salonpas (lidocaine)) diclofenac sodium 1 % topical gel 4 g topical QID PRN Pain 03/17/21 01/04/23 History cyanocobalamin (vitamin B-12) 500 500 mcg PO QAM #30 tabs 03/27/21 01/04/23 Rx mcg tablet carvedilol 25 mg tablet 25 mg PO BIDM 06/13/21 01/04/23 History hydralazine 100 mg tablet 100 mg PO TID 06/13/21 01/04/23 History Saccharomyces boulardii 250 mg 250 mg PO QAM 08/26/21 01/04/23 History capsule (Florastor) ondansetron 4 mg disintegrating 4 mg PO Q6H PRN nausea and 11/25/21 01/04/23 Rx tablet vomiting #14 tabs acetaminophen 500 mg tablet 1,000 mg PO BID 04/26/22 01/04/23 History (Tylenol Extra Strength) allopurinol 100 mg tablet 200 mg PO DAILY 04/26/22 01/04/23 History simethicone 80 mg chewable tablet 80 mg PO DIRECTED PRN GAS 04/26/22 01/04/23 History calcitriol 0.25 mcg capsule 0.25 mcg PO QAM #90 caps 07/18/22 01/04/23 Rx insulin human U-100 NPH-regulr 25 - 70 unit subcut BID 08/05/22 01/04/23 History 70-30 mix 100 unit/mL subcutaneous susp (Humulin 70/30 U-100 Insulin) isosorbide dinitrate 20 mg tablet 40 mg PO TID 08/05/22 01/04/23 History omeprazole 20 mg capsule,delayed 20 mg PO QAM 08/05/22 01/04/23 History release docusate sodium 100 mg capsule 100 mg PO BID PRN Constipation 12/14/22 01/04/23 History (Colace) furosemide 20 mg tablet 20 mg PO QAM 12/14/22 01/04/23 History polyethylene glycol 3350 17 17 g PO BID PRN Constipation 12/14/22 01/04/23 History gram/dose oral powder (Miralax) sennosides 8.6 mg tablet (Senna 8.6 mg PO BID PRN Constipation 12/14/22 01/04/23 History Lax) spironolactone 25 mg tablet 25 mg PO DAILY #90 tabs 01/02/23 01/04/23 Rx gatifloxacin 0.5 % eye drops 1 drp OPL QID 01/04/23 01/04/23 History ketorolac 0.5 % eye drops 1 drp OPB QID 01/04/23 01/04/23 History prednisolone acetate 1 % eye 1 drp OPL QID 01/04/23 01/04/23 History drops,suspension prednisolone acetate 1 % eye 1 drp OPR BID 01/04/23 01/04/23 History drops,suspension Patient History Medical History Anemia Bladder leak CHF (congestive heart failure) follows with Kaushal Nieto PA-C Chronic back pain Chronic kidney disease (CKD), stage IV (severe) follows with Dr. Childress Diabetes mellitus, type 2 Hearing deficit History of COVID-19 04/26/22, pcr test [place], admitted>pneumonia>resolved. History of diverticular abscess of colon originally 10/23/21; admit to [facility] 08/07/22 History of kidney stones HTN (hypertension) Hx of basal cell carcinoma Hx of Clostridium difficile infection 10/23/21>dx; most recently 08/05/22 admitted to [facility] w/infection Hx of diverticulitis of colon 10/23/21>dx, [facility] Hx of gout Hx of left bundle branch block Hyperlipidemia Hypertension Kidney cysts LEFT SIDE>BEING MONITORED BY UROLOGY [facility] Morbid obesity with BMI of 40.0-44.9, adult Nocturnal hypoxemia WEARS 2L HS On home oxygen therapy 2L N/C at HS only Osteoarthritis Spinal stenosis of lumbar region with radiculopathy Surgical History H/O: hysterectomy History of arthroscopy LEFT KNEE History of arthroscopy of left knee History of bilateral tubal ligation History of cardiac cath ?2009--@ [facility]--no stents History of colonoscopy History of cystoscopy History of dilatation and curettage History of esophagogastroduodenoscopy (EGD) History of right cataract surgery History of tooth extraction all teeth Hx of appendectomy Hx of cholecystectomy Nausea and vomiting after administration of anesthetic agent + VERTIGO S/P epidural steroid injection Family History Sister Family history of diabetes mellitus Sister Family history of diabetes mellitus Brother Family history of diabetes mellitus Family history of esophageal cancer Brother Family history of esophageal cancer Father Lung cancer Other No family history of adverse response to anesthesia No significant family history Social History Smoking Status: Never smoker Second Hand Exposure: No; Do You Dip or Chew Tobacco: No; Hx Alcohol Use: No Hx Substance Use: No Preferred Language: Faroese Communication Ability: Effective Material Distributor Required: No Beliefs That Will Affect Care: None marital status: / Current Living Situation: Family Current Living Situation Comment: lives with son How many Children do You have: 2 Other Information That Helps Us Care for You: No Feels Safe at Home: Yes Safety Concerns: Feels Safe At This Time Assistive Devices: Denture - Upper, Denture - Lower, Glasses, Hearing Aid - Bilateral, Oxygen - at Night and Walker Assistive Devices Comment: hearing aids and walker at home Review of Systems Review of Systems: All systems reviewed & are unremarkable except as noted in HPI & below Physical Exam Constitutional: well developed and + obese; no acute distress Eyes: no scleral abnormality and no corneal abnormality Neck: normal visual inspection, trachea midline and + thick neck Respiratory: normal respiratory effort Auscultation: lungs clear to auscultation bilaterally and + diminished lung sounds Cardiovascular: Rate/Rhythm: regular rate Heart Sounds: normal S1, normal S2 and + murmur Extremities: + pedal edema Musculoskeletal: Extremities: no cyanosis and no clubbing Skin: + turgor decreased; no lesions Neurologic: Motor/Sensory: no tremor and no asterixis Psychiatric: Orientation: alert and oriented x 3 Results & Data Vital Signs (Past 12 Hours) Vital Signs Temp Pulse Pulse Pulse Resp BP BP 01/04/23 11:15 36.4 C L 81 19 144/67 H 01/04/23 08:00 70 01/04/23 08:18 36.3 C L 73 19 01/04/23 05:30 01/04/23 05:30 36.4 C L 81 18 194/86 H 01/04/23 06:29 82 176/68 H 01/04/23 05:16 74 16 200/68 H 01/04/23 05:15 76 18 01/04/23 05:01 75 18 172/69 H 01/04/23 05:00 75 17 01/04/23 04:45 76 18 182/66 H 01/04/23 04:30 82 17 184/75 H 01/04/23 04:15 77 16 170/62 H 01/04/23 04:00 81 14 187/70 H 01/04/23 03:46 82 19 190/69 H 01/04/23 03:45 82 18 01/04/23 03:30 81 21 208/78 H 01/04/23 03:15 80 16 190/79 H 01/04/23 03:10 83 22 188/68 H 01/04/23 03:00 83 19 01/04/23 02:45 82 22 01/04/23 02:43 81 19 226/88 H 01/04/23 02:40 01/04/23 02:15 72 19 01/04/23 02:01 66 22 210/93 H 01/04/23 02:00 72 20 01/04/23 01:56 67 19 230/79 H 01/04/23 01:45 64 20 01/04/23 01:38 68 18 209/96 H 01/04/23 01:30 66 18 220/95 H 01/04/23 01:15 67 22 01/04/23 01:00 65 14 222/73 H 01/04/23 00:45 71 22 01/04/23 00:44 78 22 207/73 H 01/04/23 00:30 68 22 01/04/23 03:50 85 01/04/23 02:46 68 16 01/04/23 01:56 67 15 01/04/23 01:39 64 15 01/04/23 01:30 68 15 01/04/23 00:45 66 15 BP Pulse Ox O2 Del Method 01/04/23 11:15 96 Room Air 01/04/23 08:00 01/04/23 08:18 186/63 H 93 Room Air 01/04/23 05:30 Room Air 01/04/23 05:30 98 Room Air 01/04/23 06:29 01/04/23 05:16 95 Room Air 01/04/23 05:15 96 Room Air 01/04/23 05:01 96 Room Air 01/04/23 05:00 94 Room Air 01/04/23 04:45 96 Room Air 01/04/23 04:30 96 Room Air 01/04/23 04:15 94 Room Air 01/04/23 04:00 96 Room Air 01/04/23 03:46 96 Room Air 01/04/23 03:45 95 Room Air 01/04/23 03:30 96 Room Air 03/15/23 03:15 96 Room Air 01/04/23 03:10 95 Room Air 01/04/23 03:00 95 Room Air 01/04/23 02:45 95 Room Air 01/04/23 02:43 95 Room Air 01/04/23 02:40 94 Room Air 01/04/23 02:15 98 Room Air 01/04/23 02:01 96 Room Air 01/04/23 02:00 98 Room Air 01/04/23 01:56 97 Room Air 01/04/23 01:45 98 Room Air 01/04/23 01:38 96 Room Air 01/04/23 01:30 98 Room Air 01/04/23 01:15 96 Room Air 01/04/23 01:00 98 Room Air 01/04/23 00:45 97 Room Air 01/04/23 00:44 97 Room Air 01/04/23 00:30 97 Room Air 01/04/23 03:50 01/04/23 02:46 226/88 H 96 Room Air 01/04/23 01:56 230/79 H 97 Room Air 01/04/23 01:39 209/96 H 96 Room Air 01/04/23 01:30 220/95 H 97 Room Air 01/04/23 00:45 207/73 H 97 Room Air Laboratory Results Laboratory Results - last 24 hr 01/03/23 01/04/23 01/04/23 23:59 00:05 00:05 WBC 7.20 RBC 2.98 L Hgb 9.4 L Hct 27.7 L MCV 93.0 MCH 31.5 MCHC 33.9 RDW Std Deviation 49.6 H RDW Coeff of Noemy 14.6 H Plt Count 244 MPV 9.8 Immature Gran % (Auto) 0.3 Neut % (Auto) 68.1 Lymph % (Auto) 16.9 [place] % (Auto) 11.5 Eos % (Auto) 2.8 Baso % (Auto) 0.4 Neut # (Auto) 4.90 Lymph # (Auto) 1.22 [place] # (Auto) 0.83 H Eos # (Auto) 0.20 Baso # (Auto) 0.03 Immature Gran # (Auto) 0.02 PT 10.4 INR 1.0 APTT 32.3 H PTT Ratio 1.2 Sodium Potassium Chloride Carbon Dioxide Anion Gap BUN Creatinine Est Cr Clr Drug Dosing Est GFR ( Amer) Est GFR (Non-Af Amer) BUN/Creatinine Ratio Glucose POC Glucose 143 H Estimat Average Glucose Hemoglobin A1c Calcium Phosphorus Magnesium Troponin I High Sens Lipase TSH PTH Intact Urine Color Urine Appearance Urine pH Ur Specific [place] Urine Protein Urine Glucose (UA) Urine Ketones Urine Blood Urine Nitrite Urine Bilirubin Urine Urobilinogen Ur Leukocyte Esterase Urine WBC (Auto) Urine RBC (Auto) U Hyaline Cast (Auto) U Epithel Cells (Auto) Urine Bacteria (Auto) SARS-CoV-2, RNA, NAAT 01/04/23 01/04/23 01/04/23 00:05 00:05 00:05 WBC RBC Hgb Hct MCV MCH MCHC RDW Std Deviation RDW Coeff of Noemy Plt Count MPV Immature Gran % (Auto) Neut % (Auto) Lymph % (Auto) [place] % (Auto) Eos % (Auto) Baso % (Auto) Neut # (Auto) Lymph # (Auto) [place] # (Auto) Eos # (Auto) Baso # (Auto) Immature Gran # (Auto) PT INR APTT PTT Ratio Sodium 139 Potassium 3.6 Chloride 101 Carbon Dioxide 27 Anion Gap 11 BUN 54 H Creatinine 2.92 H Est Cr Clr Drug Dosing 15.3 Est GFR ( Amer) 15.9 Est GFR (Non-Af Amer) 13.8 BUN/Creatinine Ratio 18.5 Glucose 134 H POC Glucose Estimat Average Glucose 137 Hemoglobin A1c 6.4 H Calcium 10.2 H Phosphorus 3.6 Magnesium 2.1 Troponin I High Sens 11.3 Lipase 38 TSH 3.052 PTH Intact Urine Color Urine Appearance Urine pH Ur Specific [place] Urine Protein Urine Glucose (UA) Urine Ketones Urine Blood Urine Nitrite Urine Bilirubin Urine Urobilinogen Ur Leukocyte Esterase Urine WBC (Auto) Urine RBC (Auto) U Hyaline Cast (Auto) U Epithel Cells (Auto) Urine Bacteria (Auto) SARS-CoV-2, RNA, NAAT 01/04/23 01/04/23 01/04/23 00:25 02:24 03:05 WBC RBC Hgb Hct MCV MCH MCHC RDW Std Deviation RDW Coeff of Noemy Plt Count MPV Immature Gran % (Auto) Neut % (Auto) Lymph % (Auto) [place] % (Auto) Eos % (Auto) Baso % (Auto) Neut # (Auto) Lymph # (Auto) [place] # (Auto) Eos # (Auto) Baso # (Auto) Immature Gran # (Auto) PT INR APTT PTT Ratio Sodium Potassium Chloride Carbon Dioxide Anion Gap BUN Creatinine Est Cr Clr Drug Dosing Est GFR ( Amer) Est GFR (Non-Af Amer) BUN/Creatinine Ratio Glucose POC Glucose Estimat Average Glucose Hemoglobin A1c Calcium Phosphorus Magnesium Troponin I High Sens 9.8 Lipase TSH PTH Intact Urine Color Yellow Urine Appearance Cloudy A Urine pH 6.0 Ur Specific [place] 1.012 Urine Protein 2+ H Urine Glucose (UA) Negative Urine Ketones Negative Urine Blood Negative Urine Nitrite Negative Urine Bilirubin Negative Urine Urobilinogen Negative Ur Leukocyte Esterase 1+ H Urine WBC (Auto) 10-30 H Urine RBC (Auto) 0-4 U Hyaline Cast (Auto) 0 U Epithel Cells (Auto) 5-10 H Urine Bacteria (Auto) 1+ H SARS-CoV-2, RNA, NAAT NEGATIVE 01/04/23 01/04/23 01/04/23 03:05 06:18 06:40 WBC 6.64 RBC 3.16 L Hgb 9.9 L Hct 29.6 L MCV 93.7 MCH 31.3 MCHC 33.4 RDW Std Deviation 49.8 H RDW Coeff of Noemy 14.5 Plt Count 248 MPV 9.6 Immature Gran % (Auto) 0.3 Neut % (Auto) 64.2 Lymph % (Auto) 20.2 [place] % (Auto) 10.8 Eos % (Auto) 3.9 Baso % (Auto) 0.6 Neut # (Auto) 4.26 Lymph # (Auto) 1.34 [place] # (Auto) 0.72 H Eos # (Auto) 0.26 Baso # (Auto) 0.04 Immature Gran # (Auto) 0.02 PT INR APTT PTT Ratio Sodium Potassium Chloride Carbon Dioxide Anion Gap BUN Creatinine Est Cr Clr Drug Dosing Est GFR ( Amer) Est GFR (Non-Af Amer) BUN/Creatinine Ratio Glucose POC Glucose 102 H Estimat Average Glucose Hemoglobin A1c Calcium Phosphorus Magnesium Troponin I High Sens Lipase TSH PTH Intact 75.7 Urine Color Urine Appearance Urine pH Ur Specific [place] Urine Protein Urine Glucose (UA) Urine Ketones Urine Blood Urine Nitrite Urine Bilirubin Urine Urobilinogen Ur Leukocyte Esterase Urine WBC (Auto) Urine RBC (Auto) U Hyaline Cast (Auto) U Epithel Cells (Auto) Urine Bacteria (Auto) SARS-CoV-2, RNA, NAAT 01/04/23 01/04/23 01/04/23 06:40 07:22 11:21 WBC RBC Hgb Hct MCV MCH MCHC RDW Std Deviation RDW Coeff of Noemy Plt Count MPV Immature Gran % (Auto) Neut % (Auto) Lymph % (Auto) [place] % (Auto) Eos % (Auto) Baso % (Auto) Neut # (Auto) Lymph # (Auto) [place] # (Auto) Eos # (Auto) Baso # (Auto) Immature Gran # (Auto) PT INR APTT PTT Ratio Sodium 141 Potassium 3.7 Chloride 102 Carbon Dioxide 31 Anion Gap 8 BUN 52 H Creatinine 2.81 H Est Cr Clr Drug Dosing 15.6 Est GFR ( Amer) 16.7 Est GFR (Non-Af Amer) 14.4 BUN/Creatinine Ratio 18.5 Glucose 109 H POC Glucose 122 H 157 H Estimat Average Glucose Hemoglobin A1c Calcium 10.5 H Phosphorus Magnesium Troponin I High Sens Lipase TSH PTH Intact Urine Color Urine Appearance Urine pH Ur Specific [place] Urine Protein Urine Glucose (UA) Urine Ketones Urine Blood Urine Nitrite Urine Bilirubin Urine Urobilinogen Ur Leukocyte Esterase Urine WBC (Auto) Urine RBC (Auto) U Hyaline Cast (Auto) U Epithel Cells (Auto) Urine Bacteria (Auto) SARS-CoV-2, RNA, NAAT PG Care Time/CCT Total # of Minutes Spent Total Time Spent with Patient: Total time spent is greater than 50% in coordination of care (as documented) at patient's floor/unit and/or counseling patient: Coding Level of Care Code 42935 IN/OBS CONSULT LVL 4,60M Diagnoses Hypertension I10 Acute renal failure superimposed on stage 4 chronic kidney disease N17.9; N18.4 Chronic kidney disease (CKD), stage IV (severe) N18.4 Cyst of kidney, acquired N28.1 Secondary hyperparathyroidism N25.81
[2023-01-04] MEDS ORDERED: HEPARIN SOD 5,000 UNIT/0.5 ML VIAL SQ SCH (16:30)
[2023-01-04] MEDS: FAMOTIDINE 20 MG TAB PO SCH (17:22)
[2023-01-04] MEDS: ROSUVASTATIN CALCIUM 10 MG TAB PO SCH (20:13)
[2023-01-05] MEDS: HEPARIN SOD 5,000 UNIT/0.5 ML VIAL SQ SCH ×3 (01:30→17:04)
[2023-01-05] MEDS: prednisoLONE acetate 1% OP SUSP 5 ML BTL OPL SCH ×4 (06:17→20:12)
[2023-01-05] MEDS: KETOROLAC 0.5% OP SOLN 5 ML BTL OPB SCH ×4 (06:17→20:01)
[2023-01-05 06:52] LABS: Hematocrit (blood only) 28.7 % (37.0-47.0); Hemoglobin 9.4 g/dl (12.0-16.0); Mean Corpuscular Hemoglobin 31.5 pg (25.0-34.0); Mean Corpuscular Hgb Conc 32.8 g/dL (32.0-36.0); Mean Corpuscular Volume 96.3 fL (80.0-100.0); Mean Platelet Volume 9.6 fL (9.4-12.4); Platelet Count 234 K/uL (130-400); RDW Coefficient of Variation 14.6 % (11.5-14.5); RDW Standard Deviation 51.3 fL (36.4-46.3); Red Blood Count 2.98 M/uL (4.20-5.40); White Blood Count 6.92 K/ul (4.8-10.8)
[2023-01-05 07:09] LABS: BUN Creatinine Ratio 16.8 (10-20); Calcium 9.9 mg/dl (8.5-10.1); Creatinine Clr Calc Pharmacy 14.3 ml/min; Est GFR (African American) 15.2 ml/min; Est GFR (Non-African American) 13.1 ml/min; Magnesium 2.1 mg/dl (1.7-2.4); Phosphorus 3.4 mg/dl (2.5-4.9); Potassium 3.9 mmol/L (3.5-5.1)
--- NOTE | 2023-01-05 07:48 | Cardiology Progress Note ---
Date of Service January 05, 2023 Assessment & Plan (1) Chest pain: (2) CKD (chronic kidney disease): (3) Hypertensive urgency: (4) Congestive heart failure: Plan IMPRESSION: 87 year old female who presented to the ED due to twinges of chest pain, SOB, leg edema, and weakness. Patient was hypervolemic on exam and treated with 60 mg IV Lasix with improvement in symptoms and BP. BP initially elevated in the 200s systolic. No reoccurrence of chest pain. PLAN: Symptoms of SOB and edema resolved since IV Lasix- Patient appears to be better compensated from a volume standpoint. BP remain elevated. Appreciate nephrology input regarding diuretic/BP management. Considerations to be given regarding starting low dose nifedipine. Normally maintains on Lasix 40 mg daily at home- 20 mg daily restarted by nephrology today (01/05). Prior chest pain appeared to be msk in nature and not related to ACS. Pain reproducible with palpation. EKG without acute ST/T wave changes. Echo with a preserved LVEF and no new WMA. HS trop negative x2. Case discussed with Dr. Long- will follow. Admission and Anticipated Discharge Date Admission Date: January 04, 2023 Supervising Physician Co-Signing Physician Notes I have personally seen and examined the patient along with Kayla CHAMPAGNE. Denies recurrent chest discomfort overnight. Telemetry will sinus rhythm with PVCs. Blood pressure initially elevated this a.m. however trending downward after medications. Offers no new concerns/complaints The medical record and all available studies have been reviewed. PE: Hypertensive, otherwise stable vital signs. General: NAD, awake alert and oriented x3. Heart: Regular rhythm, normal S1-S2. No murmur appreciated. Lungs: Clear bilateral, no rales, rhonchi, wheeze extremities: No edema. After discussion with Kayla CHAMPAGNE, I fully agree with the assessment and plan as documented above. No evidence of acute coronary syndrome. Patient presents with elevated blood pressure in the setting of acute urinary tract infection. Antibiotic therapy as per internal medicine. Appreciate nephrology input. Patient does not appear volume overloaded. Blood pressure within acceptable range currently, however, if systolic blood pressure consistently greater than 150 mmHg, consider addition of low-dose nifedipine. No further inpatient cardiac testing or intervention warranted at this time. Cardiology will sign off. Please contact us with any further concerns or questions. Subjective 87-year-old female admitted to [facility] due to hypertensive urgency and acute on chronic diastolic CHF. 01/04: Diuresed with IV Lasix 60 mg in the ED with improvement of shortness of breath. Seen by nephrology who who recommended diuresis to improve blood pressures and possibly the addition of nifedipine if hypertension persisted. Patient with atypical chest discomfort reproducible with palpation. EKG, echo, and high-sensitivity troponins all unremarkable. Chest pain deemed musculoskeletal in nature. 01/05: Upon entrance into the room patient resting in bed. OT at beside to help transfer patient into the chair. No acute concerns. No chest pain, sob resolved. Having bloating after meals. Wearing o2 at night. BP remains elevated. Nephro restarted Lasix 20 mg daily Tele: NSR PVCs 70-80s Review of Systems Review of Systems: All systems reviewed & are unremarkable except as noted in HPI & below Physical Exam Constitutional: WD/WN, vitals as above no acute distress Neck: normal visual inspection and trachea midline Respiratory: normal respiratory effort; no respiratory distress, no cough and not tachypneic Auscultation: + diminished lung sounds and + rales; no rhonchi and no wheezes Cardiovascular: Rate/Rhythm: regular rate and regular rhythm Heart Sounds: normal S1, normal S2 and + murmur (+2/6 systolic murmur) Vessels: no JVD Extremities: no edema Gastrointestinal (Abdomen): normal bowel sounds, soft, nontender, no hepatosplenomegaly Skin: no rashes, warm and dry Psychiatric: A+Ox3, euthymic affect Results & Data Vital Signs (Past 12 Hours) Vital Signs Temp Pulse Pulse Resp BP Pulse Ox O2 Del Method 01/05/23 04:20 36.7 C 68 16 134/69 98 Nasal Cannula 01/05/23 00:27 79 01/05/23 00:26 56 L 01/04/23 23:25 36.7 C 87 18 152/70 H 98 Nasal Cannula O2 Flow Rate 01/05/23 04:20 1.5 01/05/23 00:27 01/05/23 00:26 01/04/23 23:25 1.5 (1) Chest pain Chest pain type: unspecified Qualified Code(s): R07.9 - Chest pain, unspecified
[2023-01-05] MEDS: ISOSORBIDE DINITRATE 40 MG TAB PO SCH ×3 (08:25→17:04)
[2023-01-05] MEDS: allopurinoL 100 MG TAB PO SCH (08:25)
[2023-01-05] MEDS: PANTOprazole 40 MG TAB PO SCH (08:25)
[2023-01-05] MEDS: hydrALAZINE TAB 50 MG TAB PO SCH ×3 (08:25→20:44)
[2023-01-05] MEDS: CYANOCOBALAMIN (B-12) 500 MCG TABLET PO SCH (08:26)
[2023-01-05] MEDS: SACCHAROMYCES BOULARDII 250 MG CAP PO SCH (08:26)
[2023-01-05] MEDS: carvediloL 25 MG TAB PO SCH ×2 (08:26→17:03)
[2023-01-05] MEDS: GATIFLOXACIN 0.5% OP SOLN 2.5 ML BTL OPL SCH ×4 (08:26→20:45)
[2023-01-05] MEDS: ASPIRIN 81 MG ECTAB PO SCH (08:26)
[2023-01-05] MEDS: LANTUS PER UNIT CHARGE SQ SCH (08:37)
[2023-01-05] MEDS: INSULIN ASPART PER UNIT CHARGE SC SCH ×4 (08:37→20:46)
[2023-01-05] MEDS: cefTRIAXone SODIUM 2,000 MG in DEXTROSE 5% 50 ML IV SCH (08:38)
[2023-01-05] MEDS ORDERED: cefTRIAXone SODIUM 1,000 MG in DEXTROSE 5% AD-VAN 50 ML IV SCH (09:00)
--- NOTE | 2023-01-05 10:24 | Nephrology Progress Note ---
Date of Service January 05, 2023 Assessment & Plan (1) Hypertension: Plan: BP labile. Improved throughout the day yesterday but elevated this AM. Volume status acceptable. Continue home dose carvedilol 25 mg BID, hydralazine 100 mg TID, and isosorbide dinitrate 40 mg TID. Furosemide 20 mg daily per home Rx. Monitor BP throughout the day and document a set of orthostatic vitals. IF BP remains elevated, consider starting nifedipine. (2) Acute renal failure superimposed on stage 4 chronic kidney disease: Plan: Non-oliguric. Electrolytes acceptable. Volume status acceptable. Document I/O's. Repeat metabolic profile tomorrow AM. (3) Chronic kidney disease (CKD), stage IV (severe): Plan: Records from Dr. Childress reviewed. CKD IV A3. Creatinine relatively stable at 3.0 mg/dL. No emergent indication for RT. Medications appropriately dosed for kidney function. Document I/Os. Renal diet. Repeat metabolic profile tomorrow AM. (4) Cyst of kidney, acquired: Plan: Imaging studies and urology notes reviewed. No concerning interval changes or symptoms. No additional evaluation at this time. (5) Secondary hyperparathyroidism: Plan: Calcitriol held. Calcium improved. Repeat metabolic profile tomorrow AM. Admission and Anticipated Discharge Date Admission Date: January 04, 2023 Subjective No acute events overnight. Thais reports some abdominal fullness following breakfast. She is feeling slightly bloated. Denies constipation. Denies abdominal pain. She slept well. At home she typically wakes ~2 x overnight to void. She notes that she only woke once overnight to void last evening. She generally feels well and denies any chest pain or palpitations. She denies dyspnea. She denies lightheadedness, dizziness, syncope or presyncope. However, she notes that she has been feeling slightly weak. Thais told me this morning that she would want hemodialysis if her kidney dysfunction were to progress. She has had several family members and friends on dialysis. She believes that she could handle treatment and would prefer HD to hospice. She has discussed this with her son. Yesterday, they discussed that he would want to transport her to and from treatment. Thais also mentioned that living at home remains very important to her and her quality of life. Review of Systems Review of Systems: All systems reviewed & are unremarkable except as noted in HPI & below Physical Exam Constitutional: well developed and + obese; no acute distress Eyes: no scleral abnormality and no corneal abnormality Neck: normal visual inspection, trachea midline and + thick neck Respiratory: normal respiratory effort Auscultation: lungs clear to auscultation bilaterally Cardiovascular: Rate/Rhythm: regular rate Heart Sounds: normal S1, normal S2 and + murmur Extremities: + pedal edema Musculoskeletal: Extremities: no cyanosis and no clubbing Skin: + turgor decreased; no lesions Neurologic: Motor/Sensory: no tremor and no asterixis Psychiatric: Orientation: alert and oriented x 3 Results & Data Vital Signs (Past 12 Hours) Vital Signs Temp Pulse Pulse Resp BP Pulse Ox O2 Del Method 01/05/23 07:44 36.5 C 55 L 18 190/73 H 98 Nasal Cannula 01/05/23 04:20 36.7 C 68 16 134/69 98 Nasal Cannula 01/05/23 00:27 79 01/05/23 00:26 56 L 01/04/23 23:25 36.7 C 87 18 152/70 H 98 Nasal Cannula O2 Flow Rate 01/05/23 07:44 2 01/05/23 04:20 1.5 01/05/23 00:27 01/05/23 00:26 01/04/23 23:25 1.5 Laboratory Results Laboratory Results - last 24 hr 01/04/23 01/04/23 01/04/23 11:21 16:27 21:14 WBC RBC Hgb Hct MCV MCH MCHC RDW Std Deviation RDW Coeff of Noemy Plt Count MPV Sodium Potassium Chloride Carbon Dioxide Anion Gap BUN Creatinine Est Cr Clr Drug Dosing Est GFR ( Amer) Est GFR (Non-Af Amer) BUN/Creatinine Ratio Glucose POC Glucose 157 H 144 H 135 H Calcium Phosphorus Magnesium 01/05/23 01/05/23 01/05/23 05:51 05:51 07:33 WBC 6.92 RBC 2.98 L Hgb 9.4 L Hct 28.7 L MCV 96.3 MCH 31.5 MCHC 32.8 RDW Std Deviation 51.3 H RDW Coeff of Noemy 14.6 H Plt Count 234 MPV 9.6 Sodium 141 Potassium 3.9 Chloride 103 Carbon Dioxide 31 Anion Gap 7 BUN 51 H Creatinine 3.04 H Est Cr Clr Drug Dosing 14.3 Est GFR ( Amer) 15.2 Est GFR (Non-Af Amer) 13.1 BUN/Creatinine Ratio 16.8 Glucose 135 H POC Glucose 140 H Calcium 9.9 Phosphorus 3.4 Magnesium 2.1 PG Care Time/CCT Total # of Minutes Spent Total Time Spent with Patient: Total time spent is greater than 50% in coordination of care (as documented) at patient's floor/unit and/or counseling patient: Coding Level of Care Code 63658 SUB INP/OBS CARE 3/50MIN Diagnoses Hypertension I10 Acute renal failure superimposed on stage 4 chronic kidney disease N17.9; N18.4 Chronic kidney disease (CKD), stage IV (severe) N18.4 Cyst of kidney, acquired N28.1 Secondary hyperparathyroidism N25.81
[2023-01-05] MEDS: FUROSEMIDE 20 MG TAB PO SCH (11:08)
[2023-01-05] MEDS: prednisoLONE acetate 1% OP SUSP 5 ML BTL OPR SCH ×2 (11:09→15:23)
--- NOTE | 2023-01-05 13:16 | Hospitalist Progress Note ---
Date of Service January 05, 2023 Assessment & Plan (1) Hypertensive urgency: Plan: BP went up to 230/79 on presentation Reports her BP had been trending up to 180s at home BP was 190/73 earlier this morning, down to 147/66 Continue carvedilol 25 bid, hydralazine 100 tid Continue isosorbide dinitrate 40 TID Cards eval/recs noted Got IV lasix on admission Currently appears euvolemic. Considering report of leg edema which has resolved with diuretic, patient may have been in mild acute on chronic diastolic heart failure on admission Home po lasix resumed today Will monitor BP today CKD 4 Patient reported she did not tolerate the spironolactone [employer] eval and recs noted Chest pain Trop is normal No ST-T changes on EKG TTE noted EF of 55-60%, GI DD, mod MR/TR, RVSP 40-50mmHg Possible UTI UA suggestive of UTI UCx - multiple jonah likely contaminated Currently on ceftriaxone Change to cefdinir tomorrow to complete 5 day therapy DM2 insulin requiring Hypoglycemic episodes at home as per family per HPI Likely from worsening kidney dysfunction Hemoglobin A1c was 6.4 on 01/04/23 Monitor blood glucose and insulin requirement inpatient Will need dose adjustment on dc GERD, Stable on regimen Chronic anemia, Hemoglobin at baseline DVT ppx - hep sq I spent a total of 35 minutes coordinating, documenting and providing care for this patient excluding time spent in performance of separately billed services Admission and Anticipated Discharge Date Admission Date: January 04, 2023 Subjective Patient seen and examined Reports feeling better today Sitting in chair Still reports weakness but improved Denied any nausea, vomiting, abd pain, diarrhea Reported small leg swelling she had on admission has resolved Denied fever, chills, nausea Denied any freq, dysuria today Physical Exam Constitutional: + well hydrated; no acute distress Eyes: PERRL, conjunctivae normal, anicteric sclerae ENMT: external ear and nose normal, oropharynx normal Respiratory: normal respiratory effort, lungs clear to auscultation Cardiovascular: Rate/Rhythm: regular rate and regular rhythm S1 S2 Gastrointestinal (Abdomen): normal bowel sounds, soft, nontender, no hepatosplenomegaly Musculoskeletal: No pedal edema Neurologic: PERRL, EOMI, accommodation nl, no face palsy, no dysarthria Psychiatric: A+Ox3, euthymic affect Results & Data Results & Data Vital Signs (Past 12 Hours) Vital Signs Temp Pulse Pulse Resp BP BP Pulse Ox 01/05/23 11:20 36.3 C L 67 18 122/62 96 01/05/23 06:01 67 01/05/23 08:58 71 147/66 H 01/05/23 07:44 36.5 C 55 L 18 190/73 H 98 01/05/23 04:20 36.7 C 68 16 134/69 98 O2 Del Method O2 Flow Rate 01/05/23 11:20 Room Air 01/05/23 06:01 01/05/23 08:58 01/05/23 07:44 Nasal Cannula 2 01/05/23 04:20 Nasal Cannula 1.5 Laboratory Results Abnormal lab results 01/04/23 01/04/23 01/05/23 Range/Units 16:27 21:14 05:51 RBC 2.98 L (4.20-5.40) M/uL Hgb 9.4 L (12.0-16.0) g/dl Hct 28.7 L (37.0-47.0) % RDW Std Deviation 51.3 H (36.4-46.3) fL RDW Coeff of Noemy 14.6 H (11.5-14.5) % BUN (6-23) mg/dl Creatinine (0.6-1.2) mg/dl Glucose (70-99(Fasting)) mg/dl POC Glucose 144 H 135 H (70-99) mg/dl 01/05/23 01/05/23 01/05/23 Range/Units 05:51 07:33 11:20 RBC (4.20-5.40) M/uL Hgb (12.0-16.0) g/dl Hct (37.0-47.0) % RDW Std Deviation (36.4-46.3) fL RDW Coeff of Noemy (11.5-14.5) % BUN 51 H (6-23) mg/dl Creatinine 3.04 H (0.6-1.2) mg/dl Glucose 135 H (70-99(Fasting)) mg/dl POC Glucose 140 H 165 H (70-99) mg/dl
[2023-01-05] MEDS: FAMOTIDINE 20 MG TAB PO SCH (17:03)
[2023-01-05] MEDS: ROSUVASTATIN CALCIUM 10 MG TAB PO SCH (20:44)
[2023-01-05] MEDS: ACETAMINOPHEN 325 MG TAB PO PRN (21:29)
[2023-01-05] MEDS: SENNA 8.6 MG TAB PO PRN (21:29)
[2023-01-06] MEDS: HEPARIN SOD 5,000 UNIT/0.5 ML VIAL SQ SCH ×2 (00:18→08:07)
--- NOTE | 2023-01-06 06:00 | Electrocardiogram Report ---
Test Reason : Blood Pressure : / mmHG Vent. Rate : 068 BPM Atrial Rate : 068 BPM P-R Int : 170 ms QRS Dur : 094 ms QT Int : 442 ms P-R-T Axes : 026 -03 002 degrees QTc Int : 469 ms Normal sinus rhythm Nonspecific ST abnormality Abnormal ECG When compared with ECG of 05-AUG-2022 15:17, No significant change was found Confirmed by Andrew Mendes ([id number]) on 01/06/2023 6:00:10 AM Referred By: REFERRED SELF Confirmed By:Andrew Mendes
[2023-01-06 06:51] LABS: BUN Creatinine Ratio 16.7 (10-20); Calcium 9.9 mg/dl (8.5-10.1); Creatinine Clr Calc Pharmacy 13.1 ml/min; Est GFR (African American) 13.5 ml/min; Est GFR (Non-African American) 11.7 ml/min; Magnesium 2.1 mg/dl (1.7-2.4); Phosphorus 3.4 mg/dl (2.5-4.9); Potassium 3.9 mmol/L (3.5-5.1)
[2023-01-06] MEDS: KETOROLAC 0.5% OP SOLN 5 ML BTL OPB SCH ×3 (07:12→15:08)
[2023-01-06] MEDS: prednisoLONE acetate 1% OP SUSP 5 ML BTL OPL SCH ×3 (07:17→15:09)
[2023-01-06] MEDS: PANTOprazole 40 MG TAB PO SCH (07:53)
[2023-01-06] MEDS: SENNA 8.6 MG TAB PO PRN (07:53)
[2023-01-06] MEDS: allopurinoL 100 MG TAB PO SCH (07:54)
[2023-01-06] MEDS: SACCHAROMYCES BOULARDII 250 MG CAP PO SCH (07:54)
[2023-01-06] MEDS: ISOSORBIDE DINITRATE 40 MG TAB PO SCH ×2 (07:54→12:34)
[2023-01-06] MEDS: FUROSEMIDE 20 MG TAB PO SCH (07:54)
[2023-01-06] MEDS: CYANOCOBALAMIN (B-12) 500 MCG TABLET PO SCH (07:54)
[2023-01-06] MEDS: hydrALAZINE TAB 50 MG TAB PO SCH ×2 (07:55→15:08)
[2023-01-06] MEDS: ASPIRIN 81 MG ECTAB PO SCH (07:55)
[2023-01-06] MEDS: GATIFLOXACIN 0.5% OP SOLN 2.5 ML BTL OPL SCH ×2 (07:55→12:33)
[2023-01-06] MEDS: carvediloL 25 MG TAB PO SCH (07:55)
[2023-01-06] MEDS: INSULIN ASPART PER UNIT CHARGE SC SCH ×2 (08:06→12:35)
[2023-01-06] MEDS: LANTUS PER UNIT CHARGE SQ SCH (08:07)
[2023-01-06] MEDS: cefTRIAXone SODIUM 2,000 MG in DEXTROSE 5% 50 ML IV SCH (08:07)
[2023-01-06] MEDS: ACETAMINOPHEN 325 MG TAB PO PRN (08:08)
[2023-01-06] MEDS ORDERED: CEFDINIR 300 MG CAP PO SCH (09:00)
[2023-01-06] MEDS ORDERED: NIFEdipine EXTENDED REL 30 MG TABCR PO SCH (09:00)
[2023-01-06] MEDS ORDERED: MECLIZINE HCL 25 MG TAB PO STA (09:50)
--- NOTE | 2023-01-06 09:58 | Nephrology Progress Note ---
Date of Service January 06, 2023 Assessment & Plan (1) Hypertension: Plan: BP labile and continues to fluctuate throughout the day. Volume status acceptable. Low dose nifedipine 30 mg added this AM. Continue home dose carvedilol 25 mg BID and isosorbide dinitrate 40 mg TID. hydralazine 100 mg TID to be weaned, if BP improves. Furosemide 20 mg daily per home Rx. Monitor BP throughout the day and document a set of orthostatic vitals. I discussed the plan of care with Dr. Byers this AM. (2) Acute renal failure superimposed on stage 4 chronic kidney disease: Plan: Non-oliguric. Electrolytes acceptable. Volume status acceptable. Medications appropriate for kidney function. Creatinine relatively stable. Close outpatient follow up will be required at discharge. No changes at this time. (3) Chronic kidney disease (CKD), stage IV (severe): Plan: CKD IV A3. Creatinine ~3.0 mg/dL. No emergent indication for dialysis. Medications appropriately dosed for kidney function. Document I/Os. Renal diet. Monitor metabolic profile daily while inpatient. Close outpatient follow up with Dr. Childress. (4) Cyst of kidney, acquired: Plan: Imaging studies and urology notes reviewed. No concerning interval changes or symptoms. No additional evaluation at this time. (5) Secondary hyperparathyroidism: Plan: Continue to hold Calcitriol. Calcium improved but slightly elevated on admi ssion. (6) UTI (urinary tract infection): Plan: Remains on cefdinir for suspected UTI. Culture polymicrobial. (7) Vertigo: Plan: Meclizine 25 mg PO provided this AM. Admission and Anticipated Discharge Date Admission Date: January 04, 2023 Subjective Thais reports some difficulty sleeping overnight. She reports an increase in some chronic back pain. She also reported some discomfort in her upper abdomen and increased abdominal bloating. She is feeling constipated this AM. Her primary concern is vertigo. Thais states that she has felt the room spinning each time she turns her head to the right. Symptoms started after she work up this morning. She has similar mild symptoms when turning her head to the left for the past several weeks. She denies nausea. Symptoms improve when she lays back, closes her eyes, and keeps her head still. Similar symptoms experienced during a prior admission. Symptoms in the past did improve with meclizine. Thais notes that she felt significantly better when her BP was <130 mmHg systolic yesterday. She remains concerned about elevated BP readings and admits to a degree of anxiety. Review of Systems Review of Systems: All systems reviewed & are unremarkable except as noted in HPI & below Respiratory: no dyspnea Cardiovascular: + lightheadedness (chronic, mild ); no chest pain, no palpitations, no syncope and no edema Physical Exam Constitutional: well developed and + obese; no acute distress Eyes: no scleral abnormality and no corneal abnormality Neck: normal visual inspection, trachea midline and + thick neck Respiratory: normal respiratory effort Auscultation: lungs clear to auscultation bilaterally and + diminished lung sounds Cardiovascular: Rate/Rhythm: regular rate Heart Sounds: normal S1, normal S2 and + murmur Extremities: no edema Musculoskeletal: Extremities: no cyanosis and no clubbing Skin: + turgor decreased; no lesions Neurologic: Motor/Sensory: no tremor and no asterixis Psychiatric: Orientation: alert and oriented x 3 Results & Data Vital Signs (Past 12 Hours) Vital Signs Temp Pulse Pulse Resp BP Pulse Ox O2 Del Method 01/06/23 07:06 36.4 C L 74 18 169/80 H 96 Room Air 01/06/23 06:02 66 01/06/23 00:00 76 01/06/23 04:00 36.6 C 69 18 150/62 H 93 Room Air 01/05/23 23:36 36.6 C 71 18 147/63 H 99 Nasal Cannula O2 Flow Rate 01/06/23 07:06 01/06/23 06:02 01/06/23 00:00 01/06/23 04:00 01/05/23 23:36 2 Laboratory Results Laboratory Results - last 24 hr 01/05/23 01/05/23 01/05/23 11:20 16:36 20:04 Sodium Potassium Chloride Carbon Dioxide Anion Gap BUN Creatinine Est Cr Clr Drug Dosing Est GFR ( Amer) Est GFR (Non-Af Amer) BUN/Creatinine Ratio Glucose POC Glucose 165 H 143 H 172 H Calcium Phosphorus Magnesium 01/06/23 01/06/23 05:41 07:10 Sodium 138 Potassium 3.9 Chloride 100 Carbon Dioxide 31 Anion Gap 7 BUN 56 H Creatinine 3.35 H D Est Cr Clr Drug Dosing 13.1 Est GFR ( Amer) 13.5 Est GFR (Non-Af Amer) 11.7 BUN/Creatinine Ratio 16.7 Glucose 145 H POC Glucose 154 H Calcium 9.9 Phosphorus 3.4 Magnesium 2.1 PG Care Time/CCT Total # of Minutes Spent Total Time Spent with Patient: Total time spent is greater than 50% in coordination of care (as documented) at patient's floor/unit and/or counseling patient: Coding Level of Care Code 68992 SUB INP/OBS CARE 3/50MIN Diagnoses Hypertension I10 Acute renal failure superimposed on stage 4 chronic kidney disease N17.9; N18.4 Chronic kidney disease (CKD), stage IV (severe) N18.4 Cyst of kidney, acquired N28.1 Secondary hyperparathyroidism N25.81 UTI (urinary tract infection) N39.0 Vertigo R42
[2023-01-06] MEDS: prednisoLONE acetate 1% OP SUSP 5 ML BTL OPR SCH ×2 (12:32→15:09)
--- NOTE | 2023-01-06 14:19 | Discharge Summary ---
Date of Service January 06, 2023 Admission HPI Per Admitting Provider History obtained from patient and records. Medical history significant for chronic diastolic heart failure (EF 55 to 60%, TTE 2019), chronic left bundle branch block, PAF as per records, PVD, hypertension, nocturnal hypoxemia on home O2 at night, DM2 insulin requiring, CRI (baseline creatinine 2.5), secondary hyperparathyroidism as per records, GERD, chronic constipation, chronic anemia (baseline hemoglobin of 9), renal cysts. Last confinement July 2022 for C. difficile colitis. 1 month history of intermittent left-sided chest pain sometimes going to her neck. Some shortness of breath and fluid retention. No unusual cough symptoms. Intermittent headaches. No consultations done as symptoms would go away. SBP at home 160s to 200s. Patient compliant with home medications. No unusual stressors. No OTC NSAID intake. Patient seen at [facility] 2 days ago on follow-up visit. Home BP diary showed SBP 1 60-1 80s. Serum creatinine had risen to 2.86 as per note. Patient instructed to take furosemide 40 mg p.o. in a.m. and to take additional 20 mg p.o. at night as needed for ankle swelling. Spironolactone initiated. Patient instructed to return after 1 month for follow-up. Patient felt sick after first dose of spironolactone 2 days ago. Weak and achy all over. Appetite not too good, blood sugar noted to be low at home. Patient underwent cataract surgery on the left eye yesterday. Patient comfortable when she got up home up until she took second dose of spironolactone. Patient felt sick again. Patient noted very intense left-sided chest pain. Patient also complaining of achy right flank pain and greenish urine. Chest discomfort relieved by nitroglycerin at the ER SBP currently 230s. MEDICAL HISTORY: As above. SURGERIES: She has had knee surgeries, hysterectomy, bilateral tubal ligation, cholecystectomy, appendectomy, cataract surgery FAMILY HISTORY: Laryngeal cancer, stroke and throat cancer. 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 Admission Exam Per Admitting Provider GENERAL: Anxious, obese, uncomfortable, no respiratory distress SKIN: Pallor, warm HEENT: Transparent left eye shield over left orbit noted, pale palpebral conjunctivae, no ptosis, dry buccal mucosa NECK : Supple, short neck, no tenderness CHEST : Decreased breath sounds, no tenderness HEART : RRR, no obvious murmurs ABDOMEN: Some distention, minimal hypogastric tenderness EXTREMITIES : Minimal LE swelling , no LE tenderness, no other conspicuous deformities noted NEUROLOGIC : Coherent, no facial asymmetry, no other gross focality Principal Diagnosis Hypertensive urgency UTI Discharge Exam Constitutional + well hydrated; no acute distress Eyes PERRL, conjunctivae normal, anicteric sclerae ENMT external ear and nose normal, oropharynx normal Respiratory normal respiratory effort, lungs clear to auscultation Cardiovascular Rate/Rhythm: regular rate and regular rhythm S1 S2 Gastrointestinal (Abdomen) normal bowel sounds, soft, nontender, no hepatosplenomegaly Musculoskeletal no cyanosis or clubbing, extremities motor strength 5/5 Neurologic PERRL, EOMI, accommodation nl, no face palsy, no dysarthria Psychiatric A+Ox3, euthymic affect Discharge Data Allergies Allergy/AdvReac Type Severity Reaction Status Date / Time spironolactone AdvReac Intermediate weakness Verified 01/04/23 02:20 Consultations 01/04/23 01:00 ED Decision to Admit Stat 01/04/23 06:08 Consult Cardiology Routine Consult Nephrology Routine Ordered Studies 01/04/23 02:00 CT abd pelvis wo con Stat CT head/brain wo con Stat Hospital Course (1) Hypertensive urgency: BP went up to 230/79 on presentation Reports her BP had been trending up to 180s at home BP was 190/73 earlier this morning, down to 147/66 Continue carvedilol 25 bid, hydralazine 100 tid Continue isosorbide dinitrate 40 TID Cards eval/recs noted Got IV lasix on admission Currently appears euvolemic. Considering report of leg edema which has resolved with diuretic, patient may have been in mild acute on chronic diastolic heart failure on admission Continue home po lasix 20mg daily Started on nifedipine ER 30mg daily CKD 4 Patient reported she did not tolerate the spironolactone Spironolactone stopped Blacksmith Assistant evaluated her while inpatient Needs to follow up with her Blacksmith Assistant Atypical Chest pain Trop is normal No ST-T changes on EKG TTE noted EF of 55-60%, GI DD, mod MR/TR, RVSP 40-50mmHg Chest pain thought to be musculoskeletal Possible UTI UA suggestive of UTI UCx - multiple jonah likely contaminated Got antibiotics inpatient Discharged on cefdinir to complete 5 day therapy DM2 insulin requiring Hypoglycemic episodes at home as per family per HPI Though to be due to poor intake and NPO status prior to procedure before hospitalization Hemoglobin A1c was 6.4 on 01/04/23 Received extensive diabetes education Continue home insulin and monitor Patient to follow up with PCP GERD, Stable on regimen Chronic anemia, Hemoglobin at baseline Reported chronic intermittent vertigo PCP may [facility] Total Time Total Time Spent Total Time Spent (In Minutes): 50 Total Time Includes: Examination of the Patient, Discharge Planning, Medication Reconciliation and Communication With Other Providers Discharge Plan Discharge Items Patient Disposition: Home - Home Health Services Reason For Visit: Hypertensive urgency Discharge Diagnosis: Hypertensive urgency Activity: Resume your previous activity Activity Comment: With walker Non-emergency contact: Primary Care Provider and Blacksmith Assistant Call non-emergency contact if: you have any medication questions and your symptoms worsen Follow-up/Referrals: Clovis Childress MD [Physician] - 02/03/23 1:15 pm Fox Ramirez MD [Primary Care Provider] - (Date & Time 01/11/2023 11:20 AM Provider Manolo Wilks MD Department [facility] ) Diet: Carb Consistent or DM2 and Heart Healthy Addtl Attending Provider Instructions: Mrs Rollins You came to the hospital feeling unwell and complained of some shortness of breath You were evaluated and noted to have poorly controlled hypertension. You were started on nifedipine in addition to your home medications. Stop taking the spironolactone for now. Please take cefdinir for 3 more days to complete treatment for urinary infection. Please ensure follow up with your Blacksmith Assistant and your Primary Doctor. It was a pleasure taking care of you. Pending Studies at Discharge: No Stand-Alone Forms: My [facility] be2, Smoking Cessation Medications and DC Order Prescriptions: New nifedipine [Procardia XL] 30 mg Tablet Extended Release 24hr 30 mg PO QAM Qty: 90 0RF cefdinir 300 mg Capsule 300 mg PO DAILY 3 Days Qty: 3 0RF Continued calcitriol 0.25 mcg capsule 0.25 mcg PO QAM Qty: 90 3RF ondansetron 4 mg tablet,disintegrating 4 mg PO Q6H PRN (Reason: nausea and vomiting) Qty: 14 0RF lidocaine [Salonpas (lidocaine)] 4 % Adhesive Patch,Medicated 1 patch TOPICAL DAILY PRN (Reason: Pain) aspirin 81 mg Tablet,Delayed Release (Dr/Ec) 81 mg PO QAM rosuvastatin 10 mg tablet 10 mg PO HS famotidine [Pepcid] 20 mg Tablet 20 mg PO QPM@1700 Rx Instructions: take with supper hydralazine 100 mg tablet 100 mg PO TID carvedilol 25 mg tablet 25 mg PO BIDM acetaminophen [Tylenol Extra Strength] 500 mg Tablet 1,000 mg PO BID simethicone 80 mg Tablet,Chewable 80 mg PO DIRECTED PRN (Reason: GAS ) allopurinol 100 mg tablet 200 mg PO DAILY Rx Instructions: noon furosemide 20 mg tablet 20 mg PO QAM sennosides [Senna Lax] 8.6 mg Tablet 8.6 mg PO BID PRN (Reason: Constipation) docusate sodium [Colace] 100 mg Capsule 100 mg PO BID PRN (Reason: Constipation) polyethylene glycol 3350 [Miralax] 17 gram/dose Powder 17 g PO BID PRN (Reason: Constipation) ketorolac 0.5 % drops 1 drp OPB QID Rx Instructions: TAKES AT 0700, 1100, 1500 & 1900. WAIT 5 MINUTES BETWEEN DIFFERENT EYE DROPS GIVEN. prednisolone acetate 1 % drops,suspension 1 drp OPL QID Rx Instructions: TAKES AT 0700, 1100, 1500 & 1900. WAIT 5 MINUTES BETWEEN DIFFERENT EYE DROPS GIVEN. prednisolone acetate 1 % drops,suspension 1 drp OPR BID Rx Instructions: TAKES AT 1100 & 1500. WAIT 5 MINUTES BETWEEN DIFFERENT EYE DROPS GIVEN. gatifloxacin 0.5 % Drops 1 drp OPL QID Rx Instructions: TAKES AT 0700, 1100, 1500 & 1900. WAIT 5 MINUTES BETWEEN DIFFERENT EYE DROPS GIVEN. diclofenac sodium 1 % gel 4 g TOP QID PRN (Reason: Pain) Rx Instructions: apply to bilateral knees cyanocobalamin (vitamin B-12) 500 mcg Tablet 500 mcg PO QAM Qty: 30 0RF Saccharomyces boulardii [Florastor] 250 mg capsule 250 mg PO QAM Humulin 70/30 U-100 Insulin 100 unit/mL (70-30) suspension 25 - 70 unit subcut BID Patient Comments: takes 70 units in am takes 25-30 units pm Rx Instructions: take before breakfast and supper omeprazole 20 mg capsule,delayed release(DR/EC) 20 mg PO QAM isosorbide dinitrate 20 mg tablet 40 mg PO TID Discontinued spironolactone 25 mg tablet 25 mg PO DAILY Qty: 90 3RF Discharge Orders: Discharge Order (Routine); Ordered 01/06/23 Ordered By: Beverley Mckeon/Other Patient Handouts: Managing Type 2 Diabetes Admission Data Admit Date/Time: 01/04/23 04:46 Attending Provider: Beverley Byers I. Admit Provider: Flavio Doherty Primary Care Provider: Fox Ramirez Other Providers: Flavio Doherty ; Kayla Ferrari ; Dallas Gaffney ; Leobardo Saucedo ; Lawrence Chan ; Jim Long ; Rehan Orellana ; Kaushal Nieto ; Ilda Aguilar ; Kenisha Lim ; Kayla Lamar ; Mgaed Guerra ; Clovis Childress ; Aarti Morton Kevin C. ; Kianna Emmanuel Other Interventions: Discharge Summary Assessment (RN) Last Done: 01/06/23 15:10
== END 2023-01-06 16:19 | disposition home health service (06) | DRG 987 ==
LOC: ED 23:23 → 2S 01-04 04:46

== ENCOUNTER 2023-01-10 14:47 | Inpatient (IN) ==
[2023-01-10 15:55] LABS: Basophils # (auto) 0.05 K/uL (0-0.2); Basophils % (auto) 0.3 %; Eosinophils # (auto) 0.23 K/uL (0-0.50); Eosinophils % (auto) 1.4 %; Hematocrit (blood only) 29.2 % (37.0-47.0); Hemoglobin 9.9 g/dl (12.0-16.0); Immature Granulocytes # (auto) 0.13 K/uL (0.01-0.20); Immature Granulocytes % (auto) 0.8 %; Lymphocytes % (auto) 4.9 %; Mean Corpuscular Hemoglobin 31.3 pg (25.0-34.0); Mean Corpuscular Hgb Conc 33.9 g/dL (32.0-36.0); Mean Corpuscular Volume 92.4 fL (80.0-100.0); Mean Platelet Volume 9.4 fL (9.4-12.4); Monocytes # (auto) 1.58 K/uL (0.11-0.59); Monocytes % (auto) 9.7 %; Neutrophils # (auto) 13.58 K/uL (1.40-6.50); Neutrophils % (auto) 82.9 %; Platelet Count 262 K/uL (130-400); RDW Standard Deviation 47.5 fL (36.4-46.3); Red Blood Count 3.16 M/uL (4.20-5.40); White Blood Count 16.37 K/ul (4.8-10.8)
[2023-01-10 16:09] LABS: Pregnancy Test, Serum Negative (Negative)
[2023-01-10 16:11] LABS: Alanine Aminotransferase 7 U/L (7-52); Albumin Globulin Ratio 1.8 (0.9-2); Albumin Level 4.4 gm/dl (3.4-5.0); Alkaline Phosphatase 52 U/L (34-104); Anion Gap 12 (3-11); Aspartate Aminotransferase 11 U/L (13-39); Bilirubin,Total 0.8 mg/dl (0.2-1.0); Blood Urea Nitrogen 74 mg/dl (6-23); Calcium 10.4 mg/dl (8.5-10.1); Carbon Dioxide 24 mmol/L (21-32); Chloride 100 mmol/L (98-107); Est GFR (African American) 10.6 ml/min; Est GFR (Non-African American) 9.1 ml/min; Globulin 2.4 gm/dl (2.5-4.0); Glucose 134 mg/dl (70-99(Fasting)); Lipase 25 U/L (11-82); Potassium 3.7 mmol/L (3.5-5.1); Sodium 136 mmol/L (136-145); Total Protein 6.8 gm/dl (6.0-8.3)
[2023-01-10] MEDS ORDERED: SODIUM CHLORIDE 0.9% 1000ML 500 ML IV ONE (16:24)
[2023-01-10] MEDS ORDERED: ONDANSETRON INJ 2 MG/ML 2 ML VIAL IV STA (16:30)
[2023-01-10] MEDS ORDERED: MoRPHine SULFATE 4 MG/ML 1 ML CARP\\VIAL IV STA (16:30)
[2023-01-10] MEDS: SODIUM CHLORIDE 0.9% 500 ML IV SCH ×2 (16:51→21:44)
--- NOTE | 2023-01-10 17:50 | Emergency Department Note ---
History of Present Illness General Chief Complaint: GI Assessment Stated Complaint: REF BY DOC,DIARRHEA,HX C DIFF Time Seen by Provider: 01/10/23 16:22 History of Present Illness Provider Complaint: flank pain (R) Onset (ago): 2 day(s) Pain Consistency: intermittent Location: R flank Radiation: RLQ Severity: severe Maximum Pain Intensity: 10 Current Pain Intensity: 9 Quality: + stabbing and + sharp Relieved By: + nothing Exacerbated By: + nothing Context: + history of similar episodes (States it feels like when she had C. difficile in the past); no foreign travel, no possible food poisoning, no sick contacts, no recent surgery/procedure or no recent injury Associated Symptoms: + diarrhea; no nausea, no vomiting, no fever, no chills, no constipation, no dysuria, no hematemesis, no hematochezia, no melena, no hematuria and no headache Home Medications Medication Instructions Recorded Confirmed Type aspirin 81 mg tablet,delayed 81 mg PO QAM 12/30/18 01/10/23 History release rosuvastatin 10 mg tablet 10 mg PO HS 12/30/18 01/10/23 History famotidine 20 mg tablet (Pepcid) 20 mg PO QDD 11/18/19 01/10/23 History lidocaine 4 % topical patch 1 patch topical DAILY PRN Pain 06/23/20 01/10/23 History (Salonpas (lidocaine)) diclofenac sodium 1 % topical gel 4 g topical QID PRN Pain 03/17/21 01/10/23 History cyanocobalamin (vitamin B-12) 500 500 mcg PO QAM #30 tabs 03/27/21 01/10/23 Rx mcg tablet carvedilol 25 mg tablet 25 mg PO BIDM 06/13/21 01/10/23 History hydralazine 100 mg tablet 100 mg PO TID 06/13/21 01/10/23 History Saccharomyces boulardii 250 mg 250 mg PO QAM 08/26/21 01/10/23 History capsule (Florastor) ondansetron 4 mg disintegrating 4 mg PO Q6H PRN nausea and 11/25/21 01/10/23 Rx tablet vomiting #14 tabs acetaminophen 500 mg tablet 1,000 mg PO BID 04/26/22 01/10/23 History (Tylenol Extra Strength) allopurinol 100 mg tablet 200 mg PO QDL 04/26/22 01/10/23 History simethicone 80 mg chewable tablet 80 mg PO DIRECTED PRN GAS 04/26/22 01/10/23 History calcitriol 0.25 mcg capsule 0.25 mcg PO QAM #90 caps 07/18/22 01/10/23 Rx insulin human U-100 NPH-regulr See Rx Instructions .Route .COMPLEX 08/05/22 01/10/23 History 70-30 mix 100 unit/mL subcutaneous susp (Humulin 70/30 U-100 Insulin) isosorbide dinitrate 20 mg tablet 40 mg PO TID 08/05/22 01/10/23 History omeprazole 20 mg capsule,delayed 20 mg PO QAM 08/05/22 01/10/23 History release furosemide 20 mg tablet 20 mg PO QAM 12/14/22 01/10/23 History polyethylene glycol 3350 17 17 g PO BID PRN Constipation 12/14/22 01/10/23 History gram/dose oral powder (Miralax) sennosides 8.6 mg tablet (Senna 8.6 mg PO BID PRN Constipation 12/14/22 01/04/23 History Lax) gatifloxacin 0.5 % eye drops 1 drp OPL QID 01/04/23 01/10/23 History ketorolac 0.5 % eye drops 1 drp OPB QID 01/04/23 01/10/23 History prednisolone acetate 1 % eye 1 drp OPL QID 01/04/23 01/10/23 History drops,suspension prednisolone acetate 1 % eye 1 drp OPR BID 01/04/23 01/10/23 History drops,suspension nifedipine 30 mg tablet,extended 30 mg PO QAM #90 tabs 01/06/23 01/10/23 Rx release 24 hr (Procardia XL) estradiol 0.01% (0.1 mg/gram) 1 g vaginal DIRECTED 01/10/23 01/10/23 History vaginal cream Allergies Allergy/AdvReac Type Severity Reaction Status Date / Time morphine AdvReac Intermediate Confusion Verified 01/10/23 18:23 phenylpropanolamine AdvReac Intermediate INTOLERANCE Verified 01/10/23 18:23 spironolactone AdvReac Intermediate weakness Verified 01/10/23 18:20 Past Med/Surg History Medical History Anemia Bladder leak CHF (congestive heart failure) follows with Kaushal Nieto PA-C Chronic back pain Chronic kidney disease (CKD), stage IV (severe) follows with Dr. Childress Diabetes mellitus, type 2 Hearing deficit History of COVID-19 04/26/22, pcr test [place], admitted>pneumonia>resolved. History of diverticular abscess of colon originally 10/23/21; admit to [facility] 08/07/22 History of kidney stones HTN (hypertension) Hx of basal cell carcinoma Hx of Clostridium difficile infection 10/23/21>dx; most recently 08/05/22 admitted to [facility] w/infection Hx of diverticulitis of colon 10/23/21>dx, [facility] Hx of gout Hx of left bundle branch block Hyperlipidemia Hypertension Kidney cysts LEFT SIDE>[facility] Morbid obesity with BMI of 40.0-44.9, adult Nocturnal hypoxemia WEARS 2L HS On home oxygen therapy 2L N/C at HS only Osteoarthritis Spinal stenosis of lumbar region with radiculopathy Surgical History H/O: hysterectomy History of arthroscopy LEFT KNEE History of arthroscopy of left knee History of bilateral tubal ligation History of cardiac cath ?2009--@ [facility] [place]--no stents History of colonoscopy History of cystoscopy History of dilatation and curettage History of esophagogastroduodenoscopy (EGD) History of right cataract surgery History of tooth extraction all teeth Hx of appendectomy Hx of cholecystectomy Nausea and vomiting after administration of anesthetic agent + VERTIGO S/P epidural steroid injection Family History Sister Family history of diabetes mellitus Sister Family history of diabetes mellitus Brother Family history of diabetes mellitus Family history of esophageal cancer Brother Family history of esophageal cancer Father Lung cancer Other No family history of adverse response to anesthesia No significant family history Social History Smoking Status: Never smoker Second Hand Exposure: No; Hx Alcohol Use: No Hx Substance Use: No Preferred Language: Khmer Communication Ability: Effective Support Coordinator Required: No Beliefs That Will Affect Care: None marital status: / Current Living Situation: Family Current Living Situation Comment: lives with son How many Children do You have: 2 Feels Safe at Home: Yes Assistive Devices: Walker Physical Exam Vital Signs: Vital Signs - 24 hr 01/10/23 15:10 01/10/23 18:31 01/10/23 18:29 Temperature 36.6 C Temperature Source Temporal Artery Sc an Pulse Rate 90 95 H 95 H Pulse Rate from Sp O2 Sensor 95 H Pulse Rhythm Regular Respiratory Rate 16 22 Respiratory Effort / Characteristics Non-Labored Sponta neous Respiratory Depth Normal Blood Pressure 150/64 H 175/63 H Blood Pressure Lexi n 92 100 Pulse Oximetry 94 93 Oxygen Delivery Me thod Room Air Room Air Sepsis Recent Feve r Within 48 Hours No Sepsis New/Unexpla ined Change in Men yandel Status No Sepsis Action Take n by Nursing No Action Required Physical Exam: Physical Exam GENERAL: Elderly and frail-appearing. HENT: Exam performed. -Head: Normocephalic and atraumatic. -Right Ear: External ear normal. No mastoid erythema -Left Ear: External ear normal. No mastoid erythema -Mouth/Throat: The oropharynx is clear and moist. No trismus in the jaw. No dental abscesses or uvula swelling. No oropharyngeal exudate or tonsillar abscesses. NECK: Normal range of motion. Neck supple. No JVD present. No spinous process tenderness present. No tracheal deviation and normal range of motion present. CV: Normal rate, regular rhythm, normal heart sounds and intact distal pulses. There is no peripheral edema. Palpable radial pulses bue. PULM/CHEST: Effort normal and breath sounds normal. No respiratory distress. No stridor. She has no wheezes. She has no rales. -Chest Wall: She exhibits no tenderness. ABD: The abdomen is soft. Bowel sounds are normal. She has no distension. No mass is present. There is tenderness to palpation of the right lower quadrant. There is no rebound, no guarding, no Head's sign and no tenderness at McBurney's point. Rovsig negative. Right-sided CVA tenderness is present MUSC/SKEL: Normal range of motion. There is no peripheral edema, tenderness or deformity. LYMPH: No cervical adenopathy. NEURO: Motor and sensation grossly intact. Course Course 162: The patient was evaluated in room B4. A complete history and physical exam was performed Cardiac monitoring: An order was placed for continuous cardiac monitoring. The monitor shows a rate of 90 with sinus rhythm interpreted by vt 1845: Vital signs stable. Labs show leukocytosis 16.37. Hemoglobin 9.9. Pat ient's creatinine elevated at 4.1. Patient has a history of CKD however her creatinine appears to usually run around 3. CT of the abdomen pelvis shows diverticulitis of the sigmoid colon no intraperitoneal free air or abscess there is also a focus of diverticulitis at the splenic flexure. [facility] given her MISTI and diverticulitis. Patient treated with IV fluids IV analgesia IV Cipro and IV Flagyl. Discussed with Tatyana Valencia who states to admit to Dr. Overton. Administered Medications Sodium Chloride (Nss) 500 mls @ 125 mls/hr IV .Q4H ARMOND Stop: 02/09/23 16:29 Last Admin: 01/10/23 16:51 Dose: 125 mls/hr Documented By: QGV Discontinued Medications Sodium Chloride (Nss 1000ml) 500 mls @ 999 mls/hr IV .Q31M ONE Stop: 01/10/23 16:54 Last Infusion: 01/10/23 17:20 Dose: 0 mls/hr Documented By: Admin: 01/10/23 16:47 Dose: 999 mls/hr Documented By: QGV Metronidazole (Flagyl) 500 mg in 100 mls @ 100 mls/hr IV NOW STA Stop: 01/10/23 19:39 Last Admin: 01/10/23 19:14 Dose: 100 mls/hr Documented By: QGV Morphine Sulfate (Morphine Sulfate 4 Mg/Ml 1 Ml Carp\Vial) 4 mg IV NOW STA Stop: 01/10/23 16:31 Last Admin: 01/10/23 16:47 Dose: 4 mg Documented By: QGV Ondansetron HCl (Ondansetron Inj 2 Mg/Ml 2 Ml Vial) 4 mg IV NOW STA Stop: 01/10/23 16:31 Last Admin: 01/10/23 16:47 Dose: 4 mg Documented By: QGV Medical Decision Making Laboratory Data Attestation: I reviewed the patient's lab results. 01/10/23 15:30 01/10/23 15:30 Lab Results 01/10/23 01/10/23 01/10/23 Range/Units 15:30 15:30 15:30 WBC 16.37 H (4.8-10.8) K/ul RBC 3.16 L (4.20-5.40) M/uL Hgb 9.9 L (12.0-16.0) g/dl Hct 29.2 L (37.0-47.0) % MCV 92.4 (80.0-100.0) fL MCH 31.3 (25.0-34.0) pg MCHC 33.9 (32.0-36.0) g/dL RDW Std Deviation 47.5 H (36.4-46.3) fL RDW Coeff of Noemy 14.0 (11.5-14.5) % Plt Count 262 (130-400) K/uL MPV 9.4 (9.4-12.4) fL Immature Gran % (Auto) 0.8 % Neut % (Auto) 82.9 % Lymph % (Auto) 4.9 % Harmon % (Auto) 9.7 % Eos % (Auto) 1.4 % Baso % (Auto) 0.3 % Neut # (Auto) 13.58 H (1.40-6.50) K/uL Lymph # (Auto) 0.80 L (1.2-3.4) K/uL Harmon # (Auto) 1.58 H (0.11-0.59) K/uL Eos # (Auto) 0.23 (0-0.50) K/uL Baso # (Auto) 0.05 (0-0.2) K/uL Immature Gran # (Auto) 0.13 (0.01-0.20) K/uL Sodium 136 (136-145) mmol/L Potassium 3.7 (3.5-5.1) mmol/L Chloride 100 (98-107) mmol/L Carbon Dioxide 24 (21-32) mmol/L Anion Gap 12 H (3-11) BUN 74 H (6-23) mg/dl Creatinine 4.10 H (0.6-1.2) mg/dl Est Cr Clr Drug Dosing Not Reportable Est GFR ( Amer) 10.6 ml/min Est GFR (Non-Af Amer) 9.1 ml/min BUN/Creatinine Ratio 18.0 (10-20) Glucose 134 H (70-99(Fasting)) mg/dl Calcium 10.4 H (8.5-10.1) mg/dl Total Bilirubin 0.8 (0.2-1.0) mg/dl AST 11 L (13-39) U/L ALT 7 (7-52) U/L Alkaline Phosphatase 52 (34-104) U/L Total Protein 6.8 (6.0-8.3) gm/dl Albumin 4.4 (3.4-5.0) gm/dl Globulin 2.4 L (2.5-4.0) gm/dl Albumin/Globulin Ratio 1.8 (0.9-2) Lipase 25 (11-82) U/L HCG, Qual Negative (Negative) Urine Color Urine Appearance (Clear) Urine pH (4.5-7.5) Ur Specific Bliss (1.000-1.030) Urine Protein (Negative) Urine Glucose (UA) (Negative) Urine Ketones (Negative) Urine Blood (Negative) Urine Nitrite (Negative) Urine Bilirubin (Negative) Urine Urobilinogen (Negative) Ur Leukocyte Esterase (Negative) Urine WBC (Auto) (0-5) /hpf Urine RBC (Auto) (0-4) /hpf U Hyaline Cast (Auto) (0-5) /lpf U Epithel Cells (Auto) (0-5) /lpf Urine Bacteria (Auto) (Negative) SARS-CoV-2, RNA, NAAT (NEGATIVE) 01/10/23 01/10/23 Range/Units Unknown Unknown WBC (4.8-10.8) K/ul RBC (4.20-5.40) M/uL Hgb (12.0-16.0) g/dl Hct (37.0-47.0) % MCV (80.0-100.0) fL MCH (25.0-34.0) pg MCHC (32.0-36.0) g/dL RDW Std Deviation (36.4-46.3) fL RDW Coeff of Noemy (11.5-14.5) % Plt Count (130-400) K/uL MPV (9.4-12.4) fL Immature Gran % (Auto) % Neut % (Auto) % Lymph % (Auto) % Harmon % (Auto) % Eos % (Auto) % Baso % (Auto) % Neut # (Auto) (1.40-6.50) K/uL Lymph # (Auto) (1.2-3.4) K/uL Harmon # (Auto) (0.11-0.59) K/uL Eos # (Auto) (0-0.50) K/uL Baso # (Auto) (0-0.2) K/uL Immature Gran # (Auto) (0.01-0.20) K/uL Sodium (136-145) mmol/L Potassium (3.5-5.1) mmol/L Chloride (98-107) mmol/L Carbon Dioxide (21-32) mmol/L Anion Gap (3-11) BUN (6-23) mg/dl Creatinine (0.6-1.2) mg/dl Est Cr Clr Drug Dosing Est GFR ( Amer) ml/min Est GFR (Non-Af Amer) ml/min BUN/Creatinine Ratio (10-20) Glucose (70-99(Fasting)) mg/dl Calcium (8.5-10.1) mg/dl Total Bilirubin (0.2-1.0) mg/dl AST (13-39) U/L ALT (7-52) U/L Alkaline Phosphatase (34-104) U/L Total Protein (6.0-8.3) gm/dl Albumin (3.4-5.0) gm/dl Globulin (2.5-4.0) gm/dl Albumin/Globulin Ratio (0.9-2) Lipase (11-82) U/L HCG, Qual (Negative) Urine Color Yellow Urine Appearance Clear (Clear) Urine pH 5.5 (4.5-7.5) Ur Specific Bliss 1.012 (1.000-1.030) Urine Protein 2+ H (Negative) Urine Glucose (UA) Negative (Negative) Urine Ketones Negative (Negative) Urine Blood Negative (Negative) Urine Nitrite Negative (Negative) Urine Bilirubin Negative (Negative) Urine Urobilinogen Negative (Negative) Ur Leukocyte Esterase Negative (Negative) Urine WBC (Auto) 1-5 (0-5) /hpf Urine RBC (Auto) 0-4 (0-4) /hpf U Hyaline Cast (Auto) 0 (0-5) /lpf U Epithel Cells (Auto) 10-20 H (0-5) /lpf Urine Bacteria (Auto) Negative (Negative) SARS-CoV-2, RNA, NAAT NEGATIVE (NEGATIVE) Imaging Data Radiologist's Impression: Abdomen/Pelvis CT 01/10/23 16:24 CT SCAN OF THE ABDOMEN AND PELVIS WITHOUT IV CONTRAST CLINICAL HISTORY: Generalized abdominal pain. COMPARISON STUDY: Abdominal CT dated 01/04/2023. TECHNIQUE: CT scan of the abdomen and pelvis is performed from the lung bases to the proximal femora. Images are reviewed in the axial, sagittal, and coronal planes. IV contrast was not administered for this examination as per the referring clinician. Note that the examination was performed in significantly suboptimal fashion without oral and IV contrast. A dose lowering technique was utilized adhering to the principles of ALARA. CT DOSE: 836.80 mGy.cm FINDINGS: Lung bases: The heart is normal in size and without pericardial effusion. The coronary arteries an mitral annulus are densely calcified. A tiny hiatal hernia is observed. There are scattered calcified granulomas. The lung bases are otherwise clear noting dependent scarring/atelectasis. Liver: The unenhanced liver is normal in size, contour, and attenuation. There is no intrahepatic biliary ductal dilatation. A 1.7 cm cyst is again seen in the left lobe. Gallbladder: Surgically absent noting clips in the gallbladder fossa. Spleen: Normal in size and attenuation. Pancreas: The unenhanced pancreas is moderately atrophic and grossly unremarkable. 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 The right adrenal gland is normal in appearance. Kidneys: The unenhanced kidneys are atrophic and without hydronephrosis. There are no renal calculi identified. A 5.3 cm complex lesion in the left renal pelvis is unchanged, as are additional bilateral simple and complex cysts. Abdominal vasculature: The abdominal aorta is normal in course and caliber noting advanced atherosclerotic calcification. Bowel: There is moderate colonic diverticulosis. Wall thickening with pericolonic inflammation and fluid involving the sigmoid colon is new from previous and consistent with acute diverticulitis. No organized fluid collection is seen to suggest abscess on this unenhanced examination. There is also faint a focus of acute diverticulitis suggested at the splenic flexure seen on image #154. No bowel obstruction is seen. The appendix is not identified and reported surgically absent. Peritoneum: There is no intraperitoneal free air or abdominal ascites. Foci of induration within the ventral abdominal wall are likely related to subcutaneous injections. Lymphadenopathy: None. Pelvic viscera: The the bladder wall appears thickened and there is pericystic infiltration. The uterus is surgically absent. No adnexal lesion is seen. Skeletal structures: The skeletal structures are osteopenic. There is moderate lumbosacral spondylosis. No lytic or blastic lesions are seen. IMPRESSION: 1. Significantly suboptimal examination without oral and IV contrast. 2. Acute diverticulitis of the sigmoid colon. 3. No intraperitoneal free air is identified and there is no organized fluid collection to indicate abscess on this unenhanced examination. 4. There is also a faint focus of acute diverticulitis suggested at the splenic flexure. 5. The bladder wall appears thickened and there is pericystic infiltration. Correlate with clinical findings and urinalysis. 6. Additional findings as above. ACT 112: Negative or not required by law. Electronically signed by: Marco Morocho M.D. 01/10/2023 6:30 PM [facility] Narrative 1622: The patient was evaluated in room B4. A complete history and physical exam was performed Cardiac monitoring: An order was placed for continuous cardiac monitoring. The monitor shows a rate of 90 with sinus rhythm interpreted by vt 1845: Vital signs stable. Labs show leukocytosis 16.37. Hemoglobin 9.9. Patient's creatinine elevated at 4.1. Patient has a history of CKD however her creatinine appears to usually run around 3. CT of the abdomen pelvis shows diverticulitis of the sigmoid colon no intraperitoneal free air or abscess there is also a focus of diverticulitis at the splenic flexure. Patient [facility] be [facility] to the [facility] team given her MISTI and diverticulitis. Patient treated with IV fluids IV analgesia IV Cipro and IV Flagyl. Discussed with Tatyana Valencia who states to admit to Dr. Overton. Impression & Plan MISTI (acute kidney injury), Diverticulitis Discharge Plan Visit Data Chief Complaint: GI Assessment Stated Complaint: REF BY DOC,DIARRHEA,HX C DIFF ED Provider: Chris Turpin Discharge Problem: MISTI (acute kidney injury), Diverticulitis Patient Disposition: Admitted As Inpatient Forms Stand Alone Forms: [employer]odbuster Prescriptions Prescriptions: No Action calcitriol 0.25 mcg capsule 0.25 mcg PO QAM Qty: 90 3RF ondansetron 4 mg tablet,disintegrating 4 mg PO Q6H PRN (Reason: nausea and vomiting) Qty: 14 0RF lidocaine [Salonpas (lidocaine)] 4 % Adhesive Patch,Medicated 1 patch TOPICAL DAILY PRN (Reason: Pain) aspirin 81 mg Tablet,Delayed Release (Dr/Ec) 81 mg PO QAM rosuvastatin 10 mg tablet 10 mg PO HS famotidine [Pepcid] 20 mg Tablet 20 mg PO QDD Rx Instructions: take with supper hydralazine 100 mg tablet 100 mg PO TID carvedilol 25 mg tablet 25 mg PO BIDM acetaminophen [Tylenol Extra Strength] 500 mg Tablet 1,000 mg PO BID simethicone 80 mg Tablet,Chewable 80 mg PO DIRECTED PRN (Reason: GAS ) allopurinol 100 mg tablet 200 mg PO QDL Rx Instructions: noon furosemide 20 mg tablet 20 mg PO QAM sennosides [Senna Lax] 8.6 mg Tablet 8.6 mg PO BID PRN (Reason: Constipation) polyethylene glycol 3350 [Miralax] 17 gram/dose Powder 17 g PO BID PRN (Reason: Constipation) Rx Instructions: HOLD FOR LOOSE STOOLS ketorolac 0.5 % drops 1 drp OPB QID Rx Instructions: TAKES AT 0700, 1100, 1500 & 1900. WAIT 5 MINUTES BETWEEN DIFFERENT EYE DROPS GIVEN. prednisolone acetate 1 % drops,suspension 1 drp OPL QID Rx Instructions: TAKES AT 0700, 1100, 1500 & 1900. WAIT 5 MINUTES BETWEEN DIFFERENT EYE DROPS GIVEN. prednisolone acetate 1 % drops,suspension 1 drp OPR BID Rx Instructions: TAKES AT 1100 & 1500. WAIT 5 MINUTES BETWEEN DIFFERENT EYE DROPS GIVEN. gatifloxacin 0.5 % Drops 1 drp OPL QID Rx Instructions: TAKES AT 0700, 1100, 1500 & 1900. WAIT 5 MINUTES BETWEEN DIFFERENT EYE DROPS GIVEN. nifedipine [Procardia XL] 30 mg Tablet Extended Release 24hr 30 mg PO QAM Qty: 90 0RF estradiol 0.01 % (0.1 mg/gram) cream 1 g VAGINAL DIRECTED diclofenac sodium 1 % gel 4 g TOP QID PRN (Reason: Pain) Rx Instructions: apply to bilateral knees cyanocobalamin (vitamin B-12) 500 mcg Tablet 500 mcg PO QAM Qty: 30 0RF Saccharomyces boulardii [Florastor] 250 mg capsule 250 mg PO QAM Humulin 70/30 U-100 Insulin 100 unit/mL (70-30) suspension See Rx Instructions .ROUTE .COMPLEX Patient Comments: takes 70 units in am takes 25-30 units pm Rx Instructions: TAKES 70 UNITS BEFORE BREAKFAST, THEN 30 UNITS BEFORE DINNER. omeprazole 20 mg capsule,delayed release(DR/EC) 20 mg PO QAM isosorbide dinitrate 20 mg tablet 40 mg PO TID Referrals Referrals: Fox Ramirez MD [Primary Care Provider] -
[2023-01-10 18:05] LABS: Appearance Urine Clear (Clear); Bacteria Urine Automated Negative (Negative); Bilirubin Urine Negative (Negative); Blood Urine Negative (Negative); Cast Urine Automated 0 /lpf (0-5); Color Urine Yellow; Glucose Urine UA Negative (Negative); Ketones Urine Negative (Negative); Leukocyte Esterase Urine Negative (Negative); Nitrite Urine Negative (Negative); Protein Urine 2+ (Negative); RBC Urine Automated 0-4 /hpf (0-4); Specific Gravity Urine 1.012 (1.000-1.030); Urobilinogen Urine Negative (Negative); pH Urine 5.5 (4.5-7.5)
--- NOTE | 2023-01-10 18:33 | CT Scan Report ---
CT SCAN OF THE ABDOMEN AND PELVIS WITHOUT IV CONTRAST CLINICAL HISTORY: Generalized abdominal pain. COMPARISON STUDY: Abdominal CT dated 01/04/2023. TECHNIQUE: CT scan of the abdomen and pelvis is performed from the lung bases to the proximal femora. Images are reviewed in the axial, sagittal, and coronal planes. IV contrast was not administered for this examination as per the referring clinician. Note that the examination was performed in signific antly suboptimal fashion without oral and IV contrast. A dose lowering technique was utilized adherin g to the principles of ALARA. CT DOSE: 836.80 mGy.cm FINDINGS: Lung bases: The heart is normal in size and without pericardial effusion. The coronary arteries an mi tral annulus are densely calcified. A tiny hiatal hernia is observed. There are scattered calcified g ranulomas. The lung bases are otherwise clear noting dependent scarring/atelectasis. Liver: The unenhanced liver is normal in size, contour, and attenuation. There is no intrahepatic lia iary ductal dilatation. A 1.7 cm cyst is again seen in the left lobe. Gallbladder: Surgically absent noting clips in the gallbladder fossa. Spleen: Normal in size and attenuation. Pancreas: The unenhanced pancreas is moderately atrophic and grossly unremarkable. 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 The right adrenal gland is nor mal in appearance. Kidneys: The unenhanced kidneys are atrophic and without hydronephrosis. There are no renal calculi i dentified. A 5.3 cm complex lesion in the left renal pelvis is unchanged, as are additional bilateral simple and complex cysts. Abdominal vasculature: The abdominal aorta is normal in course and caliber noting advanced atheroscle rotic calcification. Bowel: There is moderate colonic diverticulosis. Wall thickening with pericolonic inflammation and fl uid involving the sigmoid colon is new from previous and consistent with acute diverticulitis. No org anized fluid collection is seen to suggest abscess on this unenhanced examination. There is also porfirio t a focus of acute diverticulitis suggested at the splenic flexure seen on image #154. No bowel obstr uction is seen. The appendix is not identified and reported surgically absent. Peritoneum: There is no intraperitoneal free air or abdominal ascites. Foci of induration within the ventral abdominal wall are likely related to subcutaneous injections. Lymphadenopathy: None. Pelvic viscera: The the bladder wall appears thickened and there is pericystic infiltration. The uter us is surgically absent. No adnexal lesion is seen. Skeletal structures: The skeletal structures are osteopenic. There is moderate lumbosacral spondylosi s. No lytic or blastic lesions are seen. IMPRESSION: 1. Significantly suboptimal examination without oral and IV contrast. 2. Acute diverticulitis of the sigmoid colon. 3. No intraperitoneal free air is identified and there is no organized fluid collection to indicate a bscess on this unenhanced examination. 4. There is also a faint focus of acute diverticulitis suggested at the splenic flexure. 5. The bladder wall appears thickened and there is pericystic infiltration. Correlate with clinical f indings and urinalysis. 6. Additional findings as above. ACT 112: Negative or not required by law. Electronically signed by: Marco Morocho M.D. 01/10/2023 6:30 PM
[2023-01-10] MEDS ORDERED: CIPROFLOXACIN / D5W 400 MG/200 ML BAG IV STA (18:40)
[2023-01-10] MEDS ORDERED: metroNIDAZOLE 500 MG/100 ML BAG IV STA (18:40)
--- NOTE | 2023-01-10 19:04 | History & Physical Report ---
Date of Service January 10, 2023 Assessment & Plan (1) Diverticulitis: (2) Lower abdominal pain: (3) Diarrhea: (4) Acute renal failure superimposed on stage 4 chronic kidney disease: (5) DM (diabetes mellitus): (6) Chronic diastolic (congestive) heart failure: (7) HTN (hypertension): (8) Left bundle branch block: (9) Anemia in CKD (chronic kidney disease): (10) Spinal stenosis of lumbar region with radiculopathy: (11) Morbid obesity: (12) Nocturnal hypoxemia: Plan This is an 87-year-old female with PMH of C. difficile infections, chronic diastolic heart failure (EF 55-60%, TTE 2019), chronic LBBB, labile hypertension, paroxysmal atrial fibrillation, insulin requiring type 2 diabetes, chronic anemia, history of recurrent UTIs, chronic back pain and other medical problems listed below who presents with worsening abdominal pain and diarrhea over the past 4 days and was found to have acute diverticulitis. Sepsis Acute diverticulitis Lower abdominal pain and persistent diarrhea for the past 4 days since discharge home Afebrile, leukocytosis of 16K, tachycardic at 95, lactate pending CT abd/pelvis with acute diverticulitis of the sigmoid colon. No intraperitoneal free air is identified and there is no organized fluid collection to indicate abscess on this unenhanced examination Started on Cipro Flagyl regimen for diverticulitis, clear liquids, pain control, stool cultures and C. 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 BP 168/69. Continue carvedilol 25 bid, hydralazine 100 tid, isosorbide dinitrate 40 TID DM II Hemoglobin A1c was 6.4 on 01/04/23 Hold home agents SSI while in-patient BSG AC HS Chronic anemia Hemoglobin at baseline ~9-10 Nocturnal hypoxemia 2L NC O2 HS DVT Ppx: SQ heparin Code status: FULL PCP: Ashley Dispo: Admitted to [facility] Patient seen in collaboration with Dr. Overton. Please see addendum. A total of 80 minutes were spent with greater than 50% of that time face to face with the patient, personally reviewing all current laboratories, imaging studies, past medication reconciliation, outpatient chart review, and discussion with specialists to collaborate care for the patient with attending and utilization of translation services. Please see attending documentation for corrections and/or additions. History of Present Illness Chief Complaint: Abdominal pain Primary Care Provider: Fox Ramirez MD This is an 87-year-old female with PMH of C. difficile infections, chronic diastolic heart failure (EF 55-60%, TTE 2019), chronic LBBB, labile hypertension, paroxysmal atrial fibrillation, insulin requiring type 2 diabetes, chronic anemia, history of recurrent UTIs, chronic back pain and other medical problems listed below who presents with worsening abdominal pain and diarrhea over the past 4 days. Patient was recently admitted on our service from 01/04- 01/06 for shortness of breath and hypertensive urgency. Was started on nifedipine. During admission, patient was also found to have urinary tract infection and was discharged on cefdinir to complete antibiotic course, which she states she finished yesterday. On the day following discharge home from hospital, patient had worsening lower abdominal pain she describes as intermittent cramping that has become sharper in the days since. Also began to have multiple episodes of diarrhea similar to her C. difficile episodes. Denies any blood in stool. Has not had any diarrhea since arrival to the hospital. Still having lower abdominal pain that wraps around to her lower back with associated nausea. When seen today in hospital follow up appointment at PCP office, was sent to ED for further evaluation. Denies any fever, chills, headache, lightheadedness, chest pain, shortness of breath, dysuria or constipation. Denies any medical changes since discharge last week. Allergies Allergy/AdvReac Type Severity Reaction Status Date / Time morphine AdvReac Intermediate Confusion Verified 01/10/23 18:23 phenylpropanolamine AdvReac Intermediate INTOLERANCE Verified 01/10/23 18:23 spironolactone AdvReac Intermediate weakness Verified 01/10/23 18:20 Home Medications Medication Instructions Recorded Confirmed Type aspirin 81 mg tablet,delayed 81 mg PO QAM 12/30/18 01/10/23 History release rosuvastatin 10 mg tablet 10 mg PO HS 12/30/18 01/10/23 History famotidine 20 mg tablet (Pepcid) 20 mg PO QDD 11/18/19 01/10/23 History lidocaine 4 % topical patch 1 patch topical DAILY PRN Pain 06/23/20 01/10/23 History (Salonpas (lidocaine)) diclofenac sodium 1 % topical gel 4 g topical QID PRN Pain 03/17/21 01/10/23 History cyanocobalamin (vitamin B-12) 500 500 mcg PO QAM #30 tabs 03/27/21 01/10/23 Rx mcg tablet carvedilol 25 mg tablet 25 mg PO BIDM 06/13/21 01/10/23 History hydralazine 100 mg tablet 100 mg PO TID 06/13/21 01/10/23 History Saccharomyces boulardii 250 mg 250 mg PO QAM 08/26/21 01/10/23 History capsule (Florastor) ondansetron 4 mg disintegrating 4 mg PO Q6H PRN nausea and 11/25/21 01/10/23 Rx tablet vomiting #14 tabs acetaminophen 500 mg tablet 1,000 mg PO BID 04/26/22 01/10/23 History (Tylenol Extra Strength) allopurinol 100 mg tablet 200 mg PO QDL 04/26/22 01/10/23 History simethicone 80 mg chewable tablet 80 mg PO DIRECTED PRN GAS 04/26/22 01/10/23 History calcitriol 0.25 mcg capsule 0.25 mcg PO QAM #90 caps 07/18/22 01/10/23 Rx insulin human U-100 NPH-regulr See Rx Instructions .Route .COMPLEX 08/05/22 01/10/23 History 70-30 mix 100 unit/mL subcutaneous susp (Humulin 70/30 U-100 Insulin) isosorbide dinitrate 20 mg tablet 40 mg PO TID 08/05/22 01/10/23 History omeprazole 20 mg capsule,delayed 20 mg PO QAM 08/05/22 01/10/23 History release furosemide 20 mg tablet 20 mg PO QAM 12/14/22 01/10/23 History polyethylene glycol 3350 17 17 g PO BID PRN Constipation 12/14/22 01/10/23 History gram/dose oral powder (Miralax) gatifloxacin 0.5 % eye drops 1 drp OPL QID 01/04/23 01/10/23 History ketorolac 0.5 % eye drops 1 drp OPB QID 01/04/23 01/10/23 History prednisolone acetate 1 % eye 1 drp OPL QID 01/04/23 01/10/23 History drops,suspension prednisolone acetate 1 % eye 1 drp OPR BID 01/04/23 01/10/23 History drops,suspension nifedipine 30 mg tablet,extended 30 mg PO QAM #90 tabs 01/06/23 01/10/23 Rx release 24 hr (Procardia XL) estradiol 0.01% (0.1 mg/gram) 1 g vaginal DIRECTED 01/10/23 01/10/23 History vaginal cream Past Med/Surg History Medical History Anemia Bladder leak CHF (congestive heart failure) follows with Kaushal Nieto PA-C Chronic back pain Chronic kidney disease (CKD), stage IV (severe) follows with Dr. Childress Diabetes mellitus, type 2 Hearing deficit History of COVID-19 04/26/22, pcr test [place], admitted>pneumonia>resolved. History of diverticular abscess of colon originally 10/23/21; admit to [facility] 08/07/22 History of kidney stones HTN (hypertension) Hx of basal cell carcinoma Hx of Clostridium difficile infection 10/23/21>dx; most recently 08/05/22 admitted to [facility] w/infection Hx of diverticulitis of colon 10/23/21>dx, [facility] Hx of gout Hx of left bundle branch block Hyperlipidemia Hypertension Kidney cysts LEFT SIDE>BEING MONITORED BY UROLOGY [facility] Morbid obesity with BMI of 40.0-44.9, adult Nocturnal hypoxemia WEARS 2L HS On home oxygen therapy 2L N/C at HS only Osteoarthritis Spinal stenosis of lumbar region with radiculopathy Surgical History H/O: hysterectomy History of arthroscopy LEFT KNEE History of arthroscopy of left knee History of bilateral tubal ligation History of cardiac cath ?2009--@ [facility] [place]--no stents History of colonoscopy History of cystoscopy History of dilatation and curettage History of esophagogastroduodenoscopy (EGD) History of right cataract surgery History of tooth extraction all teeth Hx of appendectomy Hx of cholecystectomy Nausea and vomiting after administration of anesthetic agent + VERTIGO S/P epidural steroid injection Family History Sister Family history of diabetes mellitus Sister Family history of diabetes mellitus Brother Family history of diabetes mellitus Family history of esophageal cancer Brother Family history of esophageal cancer Father Lung cancer Other No family history of adverse response to anesthesia No significant family history Social History Smoking Status: Never smoker Second Hand Exposure: No; Hx Alcohol Use: No Hx Substance Use: No Preferred Language: Qatari Communication Ability: Effective Compounding And Finishing Supervisor Required: No Beliefs That Will Affect Care: None marital status: / Current Living Situation: Family Current Living Situation Comment: lives with son How many Children do You have: 2 Feels Safe at Home: Yes Assistive Devices: Walker Review of Systems Review of Systems: At least ten systems reviewed and negative except as noted in the HPI. Physical Exam Physical Exam: General Appearance: WD/WN, vitals as above, NAD, lying in bed, appears acutely ill Head: normocephalic, atraumatic Eyes: normal inspection, PERRL, conjunctivae normal, anicteric sclerae ENT: external ear and nose normal, oropharynx normal Neck: normal visual inspection, trachea midline, no thyromegaly Respiratory: normal respiratory effort, lungs clear to auscultation, no wheeze, rales, rhonchi. No accessory muscle use Cardiovascular: tachycardic rate, rhythm, no murmur, normal peripheral pulses, no BLE edema. Vessels: no JVD Chest: normal inspection of chest Abdomen/GI: normal bowel sounds, soft but distended, TTP across lower abdomen wrapping around to lower back, no hepatosplenomegaly Extremities/Musculoskeletal: no cyanosis or clubbing, extremities motor strength 5/5 Neurologic: PERRL, EOMI, accommodation nl, no face palsy, no dysarthria, CN's II-XI intact bilaterally and moves all extremities Psychiatric: A+Ox3, anxious Skin: no rashes, normal color, warm/dry Results & Data Results & Data Vital Signs (Past 12 Hours) Vital Signs Temp Pulse Resp BP Pulse Ox O2 Del Method 01/10/23 18:29 95 H 22 175/63 H 93 Room Air 01/10/23 18:31 95 H 01/10/23 15:10 36.6 C 90 16 150/64 H 94 Room Air Laboratory Results Short CBC 01/10/23 Range/Units 15:30 WBC 16.37 H (4.8-10.8) K/ul Hgb 9.9 L (12.0-16.0) g/dl Hct 29.2 L (37.0-47.0) % Plt Count 262 (130-400) K/uL BMP 01/10/23 15:30 Sodium 136 Potassium 3.7 Chloride 100 Carbon Dioxide 24 BUN 74 H Creatinine 4.10 H Glucose 134 H Calcium 10.4 H Liver Function 01/10/23 Range/Units 15:30 Total Bilirubin 0.8 (0.2-1.0) mg/dl AST 11 L (13-39) U/L ALT 7 (7-52) U/L Alkaline Phosphatase 52 (34-104) U/L Albumin 4.4 (3.4-5.0) gm/dl Urine 01/10/23 Range/Units Unknown Urine Color Yellow Urine Appearance Clear (Clear) Urine pH 5.5 (4.5-7.5) Ur Specific [place] 1.012 (1.000-1.030) Urine Protein 2+ H (Negative) Urine Glucose (UA) Negative (Negative) Diagnostic Findings Abdomen/Pelvis CT 01/10/23 16:24 CT SCAN OF THE ABDOMEN AND PELVIS WITHOUT IV CONTRAST CLINICAL HISTORY: Generalized abdominal pain. COMPARISON STUDY: Abdominal CT dated 01/04/2023. TECHNIQUE: CT scan of the abdomen and pelvis is performed from the lung bases to the proximal femora. Images are reviewed in the axial, sagittal, and coronal planes. IV contrast was not administered for this examination as per the referring clinician. Note that the examination was performed in significantly suboptimal fashion without oral and IV contrast. A dose lowering technique was utilized adhering to the principles of ALARA. CT DOSE: 836.80 mGy.cm FINDINGS: Lung bases: The heart is normal in size and without pericardial effusion. The coronary arteries an mitral annulus are densely calcified. A tiny hiatal hernia is observed. There are scattered calcified granulomas. The lung bases are otherwise clear noting dependent scarring/atelectasis. Liver: The unenhanced liver is normal in size, contour, and attenuation. There is no intrahepatic biliary ductal dilatation. A 1.7 cm cyst is again seen in the left lobe. Gallbladder: Surgically absent noting clips in the gallbladder fossa. Spleen: Normal in size and attenuation. Pancreas: The unenhanced pancreas is moderately atrophic and grossly unremarkable. 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 The right adrenal gland is normal in appearance. Kidneys: The unenhanced kidneys are atrophic and without hydronephrosis. There are no renal calculi identified. A 5.3 cm complex lesion in the left renal pelvis is unchanged, as are additional bilateral simple and complex cysts. Abdominal vasculature: The abdominal aorta is normal in course and caliber noting advanced atherosclerotic calcification. Bowel: There is moderate colonic diverticulosis. Wall thickening with pericolonic inflammation and fluid involving the sigmoid colon is new from previous and consistent with acute diverticulitis. No organized fluid collection is seen to suggest abscess on this unenhanced examination. There is also faint a focus of acute diverticulitis suggested at the splenic flexure seen on image #[id number]. No bowel obstruction is seen. The appendix is not identified and reported surgically absent. Peritoneum: There is no intraperitoneal free air or abdominal ascites. Foci of induration within the ventral abdominal wall are likely related to subcutaneous injections. Lymphadenopathy: None. Pelvic viscera: The the bladder wall appears thickened and there is pericystic infiltration. The uterus is surgically absent. No adnexal lesion is seen. Skeletal structures: The skeletal structures are osteopenic. There is moderate lumbosacral spondylosis. No lytic or blastic lesions are seen. IMPRESSION: 1. Significantly suboptimal examination without oral and IV contrast. 2. Acute diverticulitis of the sigmoid colon. 3. No intraperitoneal free air is identified and there is no organized fluid collection to indicate abscess on this unenhanced examination. 4. There is also a faint focus of acute diverticulitis suggested at the splenic flexure. 5. The bladder wall appears thickened and there is pericystic infiltration. Correlate with clinical findings and urinalysis. 6. Additional findings as above. ACT 112: Negative or not required by law. Electronically signed by: Marco Morocho M.D. 01/10/2023 6:30 PM Supervising Physician Co-Signing Physician Notes 87 yo F recently admitted presents reporting ongoing diarrheal illness over the weekend since recent discharge with antibiotics given for a UTI, with diarrhea worse overnight. She reports severe pain in her upper abdomen with distention. She has rigors and generalized malaise. She cannot seem to get comfortable. Since discharge she has not been eating much. She developed a worsening renal f unction wtih creatinine going from 3.35 to 4.10. She developed a new leukocytosis wtih left shift (16K). Elevated calcium likely reflects an element of dehydration. LFTs and bilirubin are WNL. UA is clear. She was started on cipro/flagyl in the ER after a CT a/p revealed possible diverticulitis around the splenic flexure and of the sigmoid colon. No intraperitoneal air was seen and there was no organized fluid collection to suggest abscess. She has a protuberant, distended abdomen with generalized pain to palpation that is worse in the upper abdomen. Abdominal exam is limited 2/2 body habitus and body position because of her pain. Agree with abx above and will empirically cover for cdiff pending results from stool culture. If positive recommend consulting ID. She last had known cdiff infection last Aug 2022 and was seen by ID who put her on a vanc taper. She only completed the initial course, and was not able to followup outpatient with GI. Would recommend GI consult now with ongoing pain and her history. Isolation precautions. Lactate is normal which is reassuring, however, given her level of intense pain would like general surgery to evaluate her to ensure we are not missing anything with her pain and distension. Cont IVF cautiously given h/o CHF. DO Tian (3) Diarrhea Diarrhea type: unspecified type Qualified Code(s): R19.7 - Diarrhea, unspecified
[2023-01-10] MEDS ORDERED: oxyCODONE HCL IR 5 MG TAB (IMMEDIATE RELEASE) PO PRN (20:04)
[2023-01-10] MEDS ORDERED: LACTATED RINGER'S 1,000 ML IV SCH (21:00)
[2023-01-10] MEDS: ACETAMINOPHEN 500 MG TAB PO SCH (21:02)
[2023-01-10] MEDS ORDERED: PHARMACY GLYCEMIC MGMT CONSULT PRN (21:11)
[2023-01-10] MEDS ORDERED: Patient's HEIGHT &/or WEIGHT Needed SCH (21:30)
[2023-01-10] MEDS ORDERED: carvediloL 25 MG TAB PO ONE (21:33)
[2023-01-10] MEDS ORDERED: hydrALAZINE TAB 50 MG TAB PO ONE (21:34)
[2023-01-10] MEDS ORDERED: INSULIN ASPART PER UNIT CHARGE SC ONE (22:00)
[2023-01-10] MEDS ORDERED: GLUCAGON FOR INJ 1 MG VIAL SQ PRN (22:21)
[2023-01-10] MEDS ORDERED: GLUCOSE 40% GEL 15 GM TUBE PO PRN (22:21)
[2023-01-10] MEDS ORDERED: CARBOHYDRATES FOR HYPOGLYCEMIA PO PRN (22:21)
[2023-01-10] MEDS ORDERED: GLUCOSE 10 TAB/TUBE PO PRN (22:21)
[2023-01-10] MEDS ORDERED: DICLOFENAC SOD 1% GEL 100 GM TUBE EXT PRN (22:21)
[2023-01-10] MEDS ORDERED: SIMETHICONE 80 MG CHEW PO PRN (22:21)
[2023-01-10] MEDS ORDERED: ONDANSETRON INJ 2 MG/ML 2 ML VIAL IV PRN (22:21)
[2023-01-10] MEDS ORDERED: DEXTROSE 50% 50 ML SYRINGE IV PRN (22:21)
[2023-01-10] MEDS ORDERED: LIDOCAINE 5% 1 PATCH TD PRN (23:07)
[2023-01-10] MEDS: VANCOMYCIN HCL 125 MG/2.5ML SOLN PO SCH (23:16)
[2023-01-10] MEDS: RASPBERRY SYRUP 5 ML UDP PO SCH (23:16)
[2023-01-10] MEDS: KETOROLAC 0.5% OP SOLN 5 ML BTL OPB SCH (23:21)
[2023-01-10] MEDS: prednisoLONE acetate 1% OP SUSP 5 ML BTL OPL SCH (23:31)
[2023-01-10] MEDS: GATIFLOXACIN 0.5% OP SOLN 2.5 ML BTL OPL SCH (23:40)
[2023-01-11] MEDS: metroNIDAZOLE 500 MG/100 ML BAG IV SCH ×3 (03:19→20:25)
[2023-01-11] MEDS: ACETAMINOPHEN 500 MG TAB PO SCH ×3 (04:24→20:25)
[2023-01-11] MEDS: KETOROLAC 0.5% OP SOLN 5 ML BTL OPB SCH ×4 (06:00→18:43)
[2023-01-11] MEDS: ISOSORBIDE DINITRATE 40 MG TAB PO SCH ×3 (06:01→17:17)
[2023-01-11] MEDS: prednisoLONE acetate 1% OP SUSP 5 ML BTL OPL SCH ×4 (06:02→18:43)
[2023-01-11] MEDS: RASPBERRY SYRUP 5 ML UDP PO SCH ×4 (06:04→23:27)
[2023-01-11] MEDS: VANCOMYCIN HCL 125 MG/2.5ML SOLN PO SCH ×4 (06:05→23:27)
[2023-01-11] MEDS: GATIFLOXACIN 0.5% OP SOLN 2.5 ML BTL OPL SCH ×4 (06:06→18:43)
[2023-01-11 06:52] LABS: Hematocrit (blood only) 24.4 % (37.0-47.0); Hemoglobin 8.2 g/dl (12.0-16.0); Mean Corpuscular Hemoglobin 31.8 pg (25.0-34.0); Mean Corpuscular Hgb Conc 33.6 g/dL (32.0-36.0); Mean Corpuscular Volume 94.6 fL (80.0-100.0); Mean Platelet Volume 9.7 fL (9.4-12.4); Platelet Count 208 K/uL (130-400); RDW Coefficient of Variation 14.1 % (11.5-14.5); RDW Standard Deviation 48.6 fL (36.4-46.3); Red Blood Count 2.58 M/uL (4.20-5.40)
[2023-01-11 07:01] LABS: BUN Creatinine Ratio 18.6 (10-20); Calcium 9.1 mg/dl (8.5-10.1); Creatinine Clr Calc Pharmacy 11.7 ml/min; Est GFR (African American) 11.7 ml/min; Est GFR (Non-African American) 10.1 ml/min; Potassium 3.3 mmol/L (3.5-5.1)
[2023-01-11] MEDS ORDERED: INSULIN ASPART PER UNIT CHARGE SC SCH (07:30)
[2023-01-11] MEDS: SACCHAROMYCES BOULARDII 250 MG CAP PO SCH (08:28)
[2023-01-11] MEDS: NIFEdipine EXTENDED REL 30 MG TABCR PO SCH (08:28)
[2023-01-11] MEDS: ASPIRIN 81 MG ECTAB PO SCH (08:28)
[2023-01-11] MEDS: PANTOprazole 40 MG TAB PO SCH (08:28)
[2023-01-11] MEDS: CALCITRIOL 0.25 MCG CAPSULE PO SCH (08:28)
[2023-01-11] MEDS: hydrALAZINE TAB 50 MG TAB PO SCH ×3 (08:28→20:27)
[2023-01-11] MEDS: carvediloL 25 MG TAB PO SCH ×2 (08:29→17:17)
[2023-01-11] MEDS: CYANOCOBALAMIN (B-12) 500 MCG TABLET PO SCH (08:29)
[2023-01-11] MEDS: INSULIN ASPART PER UNIT CHARGE SC SCH ×4 (08:37→20:48)
[2023-01-11] MEDS ORDERED: LANTUS PER UNIT CHARGE SQ SCH ×2 (09:00→21:00)
[2023-01-11] MEDS ORDERED: POTASSIUM CHLORIDE 20 MEQ/15 ML UDC PO ONE (09:45)
--- NOTE | 2023-01-11 10:12 | Surgery Consultation ---
Date of Consultation January 11, 2023 Assessment & Plan (1) Abdominal pain: (2) Diarrhea: (3) Diverticulitis large intestine w/o perforation or abscess w/o bleeding: (4) History of Clostridioides difficile colitis: Plan 87 year-old female with history of c.diff x 2, diverticulitis, recurrent UTIs, recently admitted here at [facility] this month for hypertensive urgency and UTI presented to ED with increasing abdominal pain, bloating, diarrhea without blood for [address] scan showing acute diverticulitis of the sigmoid colon without abscess or perforation. Lactic acid normal. Abdominal exam with distention and tenderness in RLQ on deep palpation however no rigidity, rebound, or peritonitis. Plan: No surgical intervention required at this time WOuld continue conservative management: IV abx, fluids, pain management, antiemetics as needed stool culture for c.diff when able to obtain would recommend slow advancement of diet, clears for today until good return of bowel function as she is distended with nausea continue medical management will need PT/OT Dr. Walton has seen and examined pt, agrees with above. History of Present Illness Reason for Consultation: Diverticulitis, hx of c.diff Requesting Physician: DO Tian Attending Physician: Fuentes Dave MD History of Present Illness 87-year-old female with history of C. difficile infections, chronic diastolic heart failure (EF 55-60%, TTE 2019), chronic LBBB, labile hypertension, paroxysmal atrial fibrillation, insulin requiring type 2 diabetes, chronic anemia, history of recurrent UTIs, chronic back pain, history of diverticulitis who presented to emergency room with increasing abdominal pain with associated nausea, distention, and diarrhea for last 4 days. Was recently admitted here at [facility] for hypertensive urgency. She states that she was having abdominal pain and bloating during her last admission but this increasingly got worse days after discharge. She states she was having diarrhea with no blood prior to admission but has been unable to have bowel movement here. No vomiting. No fevers or chills. Currently states she is feeling better , severe pain has resolved but still feeling bloated and full and nauseated. Nausea controlled with zofran. Not pas sing much gas today . Diarrhea has resolved. Urinating small amounts. Allergies Allergy/AdvReac Type Severity Reaction Status Date / Time morphine AdvReac Intermediate Confusion Verified 01/10/23 18:23 phenylpropanolamine AdvReac Intermediate INTOLERANCE Verified 01/10/23 18:23 spironolactone AdvReac Intermediate weakness Verified 01/10/23 18:20 Home Medications Medication Instructions Recorded Confirmed Type aspirin 81 mg tablet,delayed 81 mg PO QAM 12/30/18 01/10/23 History release rosuvastatin 10 mg tablet 10 mg PO HS 12/30/18 01/10/23 History famotidine 20 mg tablet (Pepcid) 20 mg PO QDD 11/18/19 01/10/23 History lidocaine 4 % topical patch 1 patch topical DAILY PRN Pain 06/23/20 01/10/23 History (Salonpas (lidocaine)) diclofenac sodium 1 % topical gel 4 g topical QID PRN Pain 03/17/21 01/10/23 History cyanocobalamin (vitamin B-12) 500 500 mcg PO QAM #30 tabs 03/27/21 01/10/23 Rx mcg tablet carvedilol 25 mg tablet 25 mg PO BIDM 06/13/21 01/10/23 History hydralazine 100 mg tablet 100 mg PO TID 06/13/21 01/10/23 History Saccharomyces boulardii 250 mg 250 mg PO QAM 08/26/21 01/10/23 History capsule (Florastor) ondansetron 4 mg disintegrating 4 mg PO Q6H PRN nausea and 11/25/21 01/10/23 Rx tablet vomiting #14 tabs acetaminophen 500 mg tablet 1,000 mg PO BID 04/26/22 01/10/23 History (Tylenol Extra Strength) allopurinol 100 mg tablet 200 mg PO QDL 04/26/22 01/10/23 History simethicone 80 mg chewable tablet 80 mg PO DIRECTED PRN GAS 04/26/22 01/10/23 History calcitriol 0.25 mcg capsule 0.25 mcg PO QAM #90 caps 07/18/22 01/10/23 Rx insulin human U-100 NPH-regulr See Rx Instructions .Route .COMPLEX 08/05/22 01/10/23 History 70-30 mix 100 unit/mL subcutaneous susp (Humulin 70/30 U-100 Insulin) isosorbide dinitrate 20 mg tablet 40 mg PO TID 08/05/22 01/10/23 History omeprazole 20 mg capsule,delayed 20 mg PO QAM 08/05/22 01/10/23 History release furosemide 20 mg tablet 20 mg PO QAM 12/14/22 01/10/23 History polyethylene glycol 3350 17 17 g PO BID PRN Constipation 12/14/22 01/10/23 History gram/dose oral powder (Miralax) gatifloxacin 0.5 % eye drops 1 drp OPL QID 01/04/23 01/10/23 History ketorolac 0.5 % eye drops 1 drp OPB QID 01/04/23 01/10/23 History prednisolone acetate 1 % eye 1 drp OPL QID 01/04/23 01/10/23 History drops,suspension prednisolone acetate 1 % eye 1 drp OPR BID 01/04/23 01/10/23 History drops,suspension nifedipine 30 mg tablet,extended 30 mg PO QAM #90 tabs 01/06/23 01/10/23 Rx release 24 hr (Procardia XL) estradiol 0.01% (0.1 mg/gram) 1 g vaginal DIRECTED 01/10/23 01/10/23 History vaginal cream Patient History Medical History Anemia Bladder leak CHF (congestive heart failure) follows with Kaushal Nieto PA-C Chronic back pain Chronic kidney disease (CKD), stage IV (severe) follows with Dr. Childress Diabetes mellitus, type 2 Hearing deficit History of COVID-19 04/26/22, pcr test [place], admitted>pneumonia>resolved. History of diverticular abscess of colon originally 10/23/21; admit to [facility] 08/07/22 History of kidney stones HTN (hypertension) Hx of basal cell carcinoma Hx of Clostridium difficile infection 10/23/21>dx; most recently 08/05/22 admitted to [facility] w/infection Hx of diverticulitis of colon 10/23/21>dx, [facility] Hx of gout Hx of left bundle branch block Hyperlipidemia Hypertension Kidney cysts LEFT SIDE>BEING MONITORED BY UROLOGY [facility] [place] Morbid obesity with BMI of 40.0-44.9, adult Nocturnal hypoxemia WEARS 2L HS On home oxygen therapy 2L N/C at HS only Osteoarthritis Spinal stenosis of lumbar region with radiculopathy Surgical History H/O: hysterectomy History of arthroscopy LEFT KNEE History of arthroscopy of left knee History of bilateral tubal ligation History of cardiac cath ?2009--@ [facility] [place]--no stents History of colonoscopy History of cystoscopy History of dilatation and curettage History of esophagogastroduodenoscopy (EGD) History of right cataract surgery History of tooth extraction all teeth Hx of appendectomy Hx of cholecystectomy Nausea and vomiting after administration of anesthetic agent + VERTIGO S/P epidural steroid injection Family History Sister Family history of diabetes mellitus Sister Family history of diabetes mellitus Brother Family history of diabetes mellitus Family history of esophageal cancer Brother Family history of esophageal cancer Father Lung cancer Other No family history of adverse response to anesthesia No significant family history Social History Smoking Status: Never smoker Second Hand Exposure: No; Hx Alcohol Use: No Hx Substance Use: No Preferred Language: Thai Communication Ability: Effective Pairer Inspector Required: No Beliefs That Will Affect Care: None marital status: / Current Living Situation: Family Current Living Situation Comment: lives with son How many Children do You have: 2 Other Information That Helps Us Care for You: No Feels Safe at Home: Yes Safety Concerns: Feels Safe At This Time Assistive Devices: Denture - Upper, Denture - Lower, Glasses, Hearing Aid - Bilateral, Oxygen - at Night and Walker Physical Exam Constitutional: WD/WN, vitals as above + obese, cooperative and comfortable; no acute distress, not ill appearing, not in distress, not diaphoretic and not lethargic Neck: normal visual inspection and trachea midline Respiratory: normal respiratory effort; no respiratory distress Gastrointestinal (Abdomen): Inspection/Auscultation: + abdomen distended (mild distention upper mid abdomen) and + hypoactive bowel sounds; + abnormal bowel sounds Percussion/Palpation: + abdomen tender (Deep palpation of the RLQ) and abdomen soft; no guarding, abdomen not rigid and abdomen not firm Skin: no rashes, warm and dry Psychiatric: Orientation: alert and oriented x 3 Results & Data Vital Signs (Past 12 Hours) Vital Signs Temp Pulse Pulse Resp BP BP Pulse Ox 01/11/23 08:36 69 01/11/23 08:32 01/11/23 08:24 36.8 C 72 19 135/63 96 01/11/23 03:36 36.7 C 69 20 150/69 H 94 01/11/23 00:02 80 01/10/23 22:44 01/10/23 22:28 36.7 C 83 18 168/67 H 97 O2 Del Method O2 Flow Rate 01/11/23 08:36 01/11/23 08:32 Room Air 01/11/23 08:24 Nasal Cannula 2 01/11/23 03:36 Room Air 01/11/23 00:02 01/10/23 22:44 Nasal Cannula 2 01/10/23 22:28 Nasal Cannula 2 Laboratory Results 01/11/23 01/11/23 01/11/23 Range/Units 08:11 06:03 06:03 WBC 10.10 (4.8-10.8) K/ul RBC 2.58 L (4.20-5.40) M/uL Hgb 8.2 L (12.0-16.0) g/dl Hct 24.4 L (37.0-47.0) % MCV 94.6 (80.0-100.0) fL MCH 31.8 (25.0-34.0) pg MCHC 33.6 (32.0-36.0) g/dL RDW Std Deviation 48.6 H (36.4-46.3) fL RDW Coeff of Noemy 14.1 (11.5-14.5) % Plt Count 208 (130-400) K/uL MPV 9.7 (9.4-12.4) fL Immature Gran % (Auto) % Neut % (Auto) % Lymph % (Auto) % Rice % (Auto) % Eos % (Auto) % Baso % (Auto) % Neut # (Auto) (1.40-6.50) K/uL Lymph # (Auto) (1.2-3.4) K/uL Rice # (Auto) (0.11-0.59) K/uL Eos # (Auto) (0-0.50) K/uL Baso # (Auto) (0-0.2) K/uL Immature Gran # (Auto) (0.01-0.20) K/uL Sodium 136 (136-145) mmol/L Potassium 3.3 L (3.5-5.1) mmol/L Chloride 104 (98-107) mmol/L Carbon Dioxide 23 (21-32) mmol/L Anion Gap 9 (3-11) BUN 70 H (6-23) mg/dl Creatinine 3.77 H D (0.6-1.2) mg/dl Est Cr Clr Drug Dosing 11.7 Est GFR ( Amer) 11.7 ml/min Est GFR (Non-Af Amer) 10.1 ml/min BUN/Creatinine Ratio 18.6 (10-20) Glucose 124 H (70-99(Fasting)) mg/dl POC Glucose 143 H (70-99) mg/dl Lactate (0.4-2.0) mmol/L Calcium 9.1 (8.5-10.1) mg/dl Total Bilirubin (0.2-1.0) mg/dl AST (13-39) U/L ALT (7-52) U/L Alkaline Phosphatase (34-104) U/L Total Protein (6.0-8.3) gm/dl Albumin (3.4-5.0) gm/dl Globulin (2.5-4.0) gm/dl Albumin/Globulin Ratio (0.9-2) Lipase (11-82) U/L HCG, Qual (Negative) Urine Color Urine Appearance (Clear) Urine pH (4.5-7.5) Ur Specific [place] (1.000-1.030) Urine Protein (Negative) Urine Glucose (UA) (Negative) Urine Ketones (Negative) Urine Blood (Negative) Urine Nitrite (Negative) Urine Bilirubin (Negative) Urine Urobilinogen (Negative) Ur Leukocyte Esterase (Negative) Urine WBC (Auto) (0-5) /hpf Urine RBC (Auto) (0-4) /hpf U Hyaline Cast (Auto) (0-5) /lpf U Epithel Cells (Auto) (0-5) /lpf Urine Bacteria (Auto) (Negative) SARS-CoV-2, RNA, NAAT (NEGATIVE) 01/10/23 01/10/23 01/10/23 Range/Units Unknown Unknown 22:16 WBC (4.8-10.8) K/ul RBC (4.20-5.40) M/uL Hgb (12.0-16.0) g/dl Hct (37.0-47.0) % MCV (80.0-100.0) fL MCH (25.0-34.0) pg MCHC (32.0-36.0) g/dL RDW Std Deviation (36.4-46.3) fL RDW Coeff of Noemy (11.5-14.5) % Plt Count (130-400) K/uL MPV (9.4-12.4) fL Immature Gran % (Auto) % Neut % (Auto) % Lymph % (Auto) % Rice % (Auto) % Eos % (Auto) % Baso % (Auto) % Neut # (Auto) (1.40-6.50) K/uL Lymph # (Auto) (1.2-3.4) K/uL Rice # (Auto) (0.11-0.59) K/uL Eos # (Auto) (0-0.50) K/uL Baso # (Auto) (0-0.2) K/uL Immature Gran # (Auto) (0.01-0.20) K/uL Sodium (136-145) mmol/L Potassium (3.5-5.1) mmol/L Chloride (98-107) mmol/L Carbon Dioxide (21-32) mmol/L Anion Gap (3-11) BUN (6-23) mg/dl Creatinine (0.6-1.2) mg/dl Est Cr Clr Drug Dosing Est GFR ( Amer) ml/min Est GFR (Non-Af Amer) ml/min BUN/Creatinine Ratio (10-20) Glucose (70-99(Fasting)) mg/dl POC Glucose 139 H (70-99) mg/dl Lactate (0.4-2.0) mmol/L Calcium (8.5-10.1) mg/dl Total Bilirubin (0.2-1.0) mg/dl AST (13-39) U/L ALT (7-52) U/L Alkaline Phosphatase (34-104) U/L Total Protein (6.0-8.3) gm/dl Albumin (3.4-5.0) gm/dl Globulin (2.5-4.0) gm/dl Albumin/Globulin Ratio (0.9-2) Lipase (11-82) U/L HCG, Qual (Negative) Urine Color Yellow Urine Appearance Clear (Clear) Urine pH 5.5 (4.5-7.5) Ur Specific [place] 1.012 (1.000-1.030) Urine Protein 2+ H (Negative) Urine Glucose (UA) Negative (Negative) Urine Ketones Negative (Negative) Urine Blood Negative (Negative) Urine Nitrite Negative (Negative) Urine Bilirubin Negative (Negative) Urine Urobilinogen Negative (Negative) Ur Leukocyte Esterase Negative (Negative) Urine WBC (Auto) 1-5 (0-5) /hpf Urine RBC (Auto) 0-4 (0-4) /hpf U Hyaline Cast (Auto) 0 (0-5) /lpf U Epithel Cells (Auto) 10-20 H (0-5) /lpf Urine Bacteria (Auto) Negative (Negative) SARS-CoV-2, RNA, NAAT NEGATIVE (NEGATIVE) 01/10/23 01/10/23 01/10/23 Range/Units 20:59 20:53 15:30 WBC (4.8-10.8) K/ul RBC (4.20-5.40) M/uL Hgb (12.0-16.0) g/dl Hct (37.0-47.0) % MCV (80.0-100.0) fL MCH (25.0-34.0) pg MCHC (32.0-36.0) g/dL RDW Std Deviation (36.4-46.3) fL RDW Coeff of Noemy (11.5-14.5) % Plt Count (130-400) K/uL MPV (9.4-12.4) fL Immature Gran % (Auto) % Neut % (Auto) % Lymph % (Auto) % Rice % (Auto) % Eos % (Auto) % Baso % (Auto) % Neut # (Auto) (1.40-6.50) K/uL Lymph # (Auto) (1.2-3.4) K/uL Rice # (Auto) (0.11-0.59) K/uL Eos # (Auto) (0-0.50) K/uL Baso # (Auto) (0-0.2) K/uL Immature Gran # (Auto) (0.01-0.20) K/uL Sodium (136-145) mmol/L Potassium (3.5-5.1) mmol/L Chloride (98-107) mmol/L Carbon Dioxide (21-32) mmol/L Anion Gap (3-11) BUN (6-23) mg/dl Creatinine (0.6-1.2) mg/dl Est Cr Clr Drug Dosing Est GFR ( Amer) ml/min Est GFR (Non-Af Amer) ml/min BUN/Creatinine Ratio (10-20) Glucose (70-99(Fasting)) mg/dl POC Glucose 157 H (70-99) mg/dl Lactate 0.8 (0.4-2.0) mmol/L Calcium (8.5-10.1) mg/dl Total Bilirubin (0.2-1.0) mg/dl AST (13-39) U/L ALT (7-52) U/L Alkaline Phosphatase (34-104) U/L Total Protein (6.0-8.3) gm/dl Albumin (3.4-5.0) gm/dl Globulin (2.5-4.0) gm/dl Albumin/Globulin Ratio (0.9-2) Lipase (11-82) U/L HCG, Qual Negative (Negative) Urine Color Urine Appearance (Clear) Urine pH (4.5-7.5) Ur Specific [place] (1.000-1.030) Urine Protein (Negative) Urine Glucose (UA) (Negative) Urine Ketones (Negative) Urine Blood (Negative) Urine Nitrite (Negative) Urine Bilirubin (Negative) Urine Urobilinogen (Negative) Ur Leukocyte Esterase (Negative) Urine WBC (Auto) (0-5) /hpf Urine RBC (Auto) (0-4) /hpf U Hyaline Cast (Auto) (0-5) /lpf U Epithel Cells (Auto) (0-5) /lpf Urine Bacteria (Auto) (Negative) SARS-CoV-2, RNA, NAAT (NEGATIVE) 01/10/23 01/10/23 Range/Units 15:30 15:30 WBC 16.37 H (4.8-10.8) K/ul RBC 3.16 L (4.20-5.40) M/uL Hgb 9.9 L (12.0-16.0) g/dl Hct 29.2 L (37.0-47.0) % MCV 92.4 (80.0-100.0) fL MCH 31.3 (25.0-34.0) pg MCHC 33.9 (32.0-36.0) g/dL RDW Std Deviation 47.5 H (36.4-46.3) fL RDW Coeff of Noemy 14.0 (11.5-14.5) % Plt Count 262 (130-400) K/uL MPV 9.4 (9.4-12.4) fL Immature Gran % (Auto) 0.8 % Neut % (Auto) 82.9 % Lymph % (Auto) 4.9 % Rice % (Auto) 9.7 % Eos % (Auto) 1.4 % Baso % (Auto) 0.3 % Neut # (Auto) 13.58 H (1.40-6.50) K/uL Lymph # (Auto) 0.80 L (1.2-3.4) K/uL Rice # (Auto) 1.58 H (0.11-0.59) K/uL Eos # (Auto) 0.23 (0-0.50) K/uL Baso # (Auto) 0.05 (0-0.2) K/uL Immature Gran # (Auto) 0.13 (0.01-0.20) K/uL Sodium 136 (136-145) mmol/L Potassium 3.7 (3.5-5.1) mmol/L Chloride 100 (98-107) mmol/L Carbon Dioxide 24 (21-32) mmol/L Anion Gap 12 H (3-11) BUN 74 H (6-23) mg/dl Creatinine 4.10 H (0.6-1.2) mg/dl Est Cr Clr Drug Dosing Not Reportable Est GFR ( Amer) 10.6 ml/min Est GFR (Non-Af Amer) 9.1 ml/min BUN/Creatinine Ratio 18.0 (10-20) Glucose 134 H (70-99(Fasting)) mg/dl POC Glucose (70-99) mg/dl Lactate (0.4-2.0) mmol/L Calcium 10.4 H (8.5-10.1) mg/dl Total Bilirubin 0.8 (0.2-1.0) mg/dl AST 11 L (13-39) U/L ALT 7 (7-52) U/L Alkaline Phosphatase 52 (34-104) U/L Total Protein 6.8 (6.0-8.3) gm/dl Albumin 4.4 (3.4-5.0) gm/dl Globulin 2.4 L (2.5-4.0) gm/dl Albumin/Globulin Ratio 1.8 (0.9-2) Lipase 25 (11-82) U/L HCG, Qual (Negative) Urine Color Urine Appearance (Clear) Urine pH (4.5-7.5) Ur Specific [place] (1.000-1.030) Urine Protein (Negative) Urine Glucose (UA) (Negative) Urine Ketones (Negative) Urine Blood (Negative) Urine Nitrite (Negative) Urine Bilirubin (Negative) Urine Urobilinogen (Negative) Ur Leukocyte Esterase (Negative) Urine WBC (Auto) (0-5) /hpf Urine RBC (Auto) (0-4) /hpf U Hyaline Cast (Auto) (0-5) /lpf U Epithel Cells (Auto) (0-5) /lpf Urine Bacteria (Auto) (Negative) SARS-CoV-2, RNA, NAAT (NEGATIVE) Diagnostic Findings CT SCAN OF THE ABDOMEN AND PELVIS WITHOUT IV CONTRAST CLINICAL HISTORY: Generalized abdominal pain. COMPARISON STUDY: Abdominal CT dated 01/04/2023. TECHNIQUE: CT scan of the abdomen and pelvis is performed from the lung bases to the proximal femora. Images are reviewed in the axial, sagittal, and coronal planes. IV contrast was not administered for this examination as per the referring clinician. Note that the examination was performed in significantly suboptimal fashion without oral and IV contrast. A dose lowering technique was utilized adhering to the principles of ALARA. CT DOSE: 836.80 mGy.cm FINDINGS: Lung bases: The heart is normal in size and without pericardial effusion. The coronary arteries an mitral annulus are densely calcified. A tiny hiatal hernia is observed. There are scattered calcified granulomas. The lung bases are otherwise clear noting dependent scarring/atelectasis. Liver: The unenhanced liver is normal in size, contour, and attenuation. There is no intrahepatic biliary ductal dilatation. A 1.7 cm cyst is again seen in the left lobe. Gallbladder: Surgically absent noting clips in the gallbladder fossa. Spleen: Normal in size and attenuation. Pancreas: The unenhanced pancreas is moderately atrophic and grossly unremarkable. 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 The right adrenal gland is normal in appearance. Kidneys: The unenhanced kidneys are atrophic and without hydronephrosis. There are no renal calculi identified. A 5.3 cm complex lesion in the left renal pelvis is unchanged, as are additional bilateral simple and complex cysts. Abdominal vasculature: The abdominal aorta is normal in course and caliber noting advanced atherosclerotic calcification. Bowel: There is moderate colonic diverticulosis. Wall thickening with pericolonic inflammation and fluid involving the sigmoid colon is new from previous and consistent with acute diverticulitis. No organized fluid collection is seen to suggest abscess on this unenhanced examination. There is also faint a focus of acute diverticulitis suggested at the splenic flexure seen on image #[id number]. No bowel obstruction is seen. The appendix is not identified and reported surgically absent. Peritoneum: There is no intraperitoneal free air or abdominal ascites. Foci of induration within the ventral abdominal wall are likely related to subcutaneous injections. Lymphadenopathy: None. Pelvic viscera: The the bladder wall appears thickened and there is pericystic infiltration. The uterus is surgically absent. No adnexal lesion is seen. Skeletal structures: The skeletal structures are osteopenic. There is moderate lumbosacral spondylosis. No lytic or blastic lesions are seen. IMPRESSION: 1. Significantly suboptimal examination without oral and IV contrast. 2. Acute diverticulitis of the sigmoid colon. 3. No intraperitoneal free air is identified and there is no organized fluid collection to indicate abscess on this unenhanced examination. 4. There is also a faint focus of acute diverticulitis suggested at the splenic flexure. 5. The bladder wall appears thickened and there is pericystic infiltration. Correlate with clinical findings and urinalysis. 6. Additional findings as above. (1) Abdominal pain Abdominal location: generalized Qualified Code(s): R10.84 - Generalized abdominal pain
[2023-01-11] MEDS: prednisoLONE acetate 1% OP SUSP 5 ML BTL OPR SCH ×2 (10:20→14:50)
[2023-01-11] MEDS: allopurinoL 100 MG TAB PO SCH (11:14)
--- NOTE | 2023-01-11 12:59 | Gastrointestinal Consultation ---
Date of Consultation January 11, 2023 Assessment & Plan (1) Diverticulitis: Pt is a 87 yo female w symptoms of lower abd pain, loose stools wo rectal bleeding, noted to have diverticulitis (splenic flexure and sigmoid areas) wo perforation, abscess or fluid collection. Suspected diverticulitis symptoms started during her admission last week but CT at that time wo acute findings. Hx of diverticulitis in 2020, and last colonoscopy was in 2005. - Cipro/Flagyl antibx for total of 10 days for diverticulitis - May keep Vancomycin for Cdiff empiric treatment given her Cdiff hx and antibx uses - Check stool cx and Cdiff - Discussed indication for repeat colonoscopy in 6 to 8 weeks after diverticulitis episode to r/o malignancy or large obstructing polyps but pt would like to defer - Advance diet as tolerated - Fiber daily once diverticulitis episode resolved Supervising Physician Co-Signing Physician Notes I personally saw and evaluated the patient on 01/11/2023 with MAHI Chapman and I agree with her findings and plan of care. 87 y/o F admitted with abdominal pain and diarrhea found to have diverticulitis on imaging. She is currently on cipro and flagyl. last colonoscopy was in 2005. On physical exam she is AAOx3 with mild abdominal tenderness in the lower abdomen without any guarding or distention. Continue abx for now for total of 10 days. Check stool studies including C. diff. I advised patient that I would recommend an outpatient colonoscopy in 6-8 weeks to exclude any colonic malignancy. She states at her age she is not interested in any colonoscopy even if she were to have a colon cancer and she does not want to pursue one. I let her know this is perfectly reasonable and she can certainly make that decision and we will not arrange outpatient colonoscopy. Ok to advance diet as tolerated. Kayla Bonds, DO Gastroenterology and Hepatology History of Present Illness Reason for Consultation: Diverticulitis Requesting Physician: Dr. Fuentes Dave Attending Physician: Dr. Kayla Bonds History of Present Illness Pt is a 87 yo female w PMHx of chronic HF, LBBB, HTN, Afib, DM II, chronic anemia, recurrent UTIs, Cdiff infection who presented yesterday w co RLQ abd pain radiating to back x 4 days. She denies associated fever, chills, CP, SOB. Stools are loose but no rectal bleeding or dark tarry stools. Pt was admitted last month for HTN urgency and found to have UTI as well. She reports she began having the abd pain during that admission but CT abd/pelvis at that time did not show any acute processes. Upon evaluation, she was found to have leukocytosis, stable anemia, LFTs and lipase normal, CT abd/pelvis wo contrast showed splenic flexure and sigmoid diverticulitis wo fluid collection, abscess or perforation. She is started on Cipro, Flagyl antibiotics and given recurrent Cdiff, she was empirically started on Vancomycin as well. Allergies Allergy/AdvReac Type Severity Reaction Status Date / Time morphine AdvReac Intermediate Confusion Verified 01/10/23 18:23 phenylpropanolamine AdvReac Intermediate INTOLERANCE Verified 01/10/23 18:23 spironolactone AdvReac Intermediate weakness Verified 01/10/23 18:20 Home Medications Medication Instructions Recorded Confirmed Type aspirin 81 mg tablet,delayed 81 mg PO QAM 12/30/18 01/10/23 History release rosuvastatin 10 mg tablet 10 mg PO HS 12/30/18 01/10/23 History famotidine 20 mg tablet (Pepcid) 20 mg PO QDD 11/18/19 01/10/23 History lidocaine 4 % topical patch 1 patch topical DAILY PRN Pain 06/23/20 01/10/23 History (Salonpas (lidocaine)) diclofenac sodium 1 % topical gel 4 g topical QID PRN Pain 03/17/21 01/10/23 History cyanocobalamin (vitamin B-12) 500 500 mcg PO QAM #30 tabs 03/27/21 01/10/23 Rx mcg tablet carvedilol 25 mg tablet 25 mg PO BIDM 06/13/21 01/10/23 History hydralazine 100 mg tablet 100 mg PO TID 06/13/21 01/10/23 History Saccharomyces boulardii 250 mg 250 mg PO QAM 08/26/21 01/10/23 History capsule (Florastor) ondansetron 4 mg disintegrating 4 mg PO Q6H PRN nausea and 11/25/21 01/10/23 Rx tablet vomiting #14 tabs acetaminophen 500 mg tablet 1,000 mg PO BID 04/26/22 01/10/23 History (Tylenol Extra Strength) allopurinol 100 mg tablet 200 mg PO QDL 04/26/22 01/10/23 History simethicone 80 mg chewable tablet 80 mg PO DIRECTED PRN GAS 04/26/22 01/10/23 History calcitriol 0.25 mcg capsule 0.25 mcg PO QAM #90 caps 07/18/22 01/10/23 Rx insulin human U-100 NPH-regulr See Rx Instructions .Route .COMPLEX 08/05/22 01/10/23 History 70-30 mix 100 unit/mL subcutaneous susp (Humulin 70/30 U-100 Insulin) isosorbide dinitrate 20 mg tablet 40 mg PO TID 08/05/22 01/10/23 History omeprazole 20 mg capsule,delayed 20 mg PO QAM 08/05/22 01/10/23 History release furosemide 20 mg tablet 20 mg PO QAM 12/14/22 01/10/23 History polyethylene glycol 3350 17 17 g PO BID PRN Constipation 12/14/22 01/10/23 History gram/dose oral powder (Miralax) gatifloxacin 0.5 % eye drops 1 drp OPL QID 01/04/23 01/10/23 History ketorolac 0.5 % eye drops 1 drp OPB QID 01/04/23 01/10/23 History prednisolone acetate 1 % eye 1 drp OPL QID 01/04/23 01/10/23 History drops,suspension prednisolone acetate 1 % eye 1 drp OPR BID 01/04/23 01/10/23 History drops,suspension nifedipine 30 mg tablet,extended 30 mg PO QAM #90 tabs 01/06/23 01/10/23 Rx release 24 hr (Procardia XL) estradiol 0.01% (0.1 mg/gram) 1 g vaginal DIRECTED 01/10/23 01/10/23 History vaginal cream Patient History Medical History Anemia Bladder leak CHF (congestive heart failure) follows with Kaushal Nieto PA-C Chronic back pain Chronic kidney disease (CKD), stage IV (severe) follows with Dr. Childress Diabetes mellitus, type 2 Hearing deficit History of COVID-19 04/26/22, pcr test [place], admitted>pneumonia>resolved. History of diverticular abscess of colon originally 10/23/21; admit to [facility] 08/07/22 History of kidney stones HTN (hypertension) Hx of basal cell carcinoma Hx of Clostridium difficile infection 10/23/21>dx; most recently 08/05/[address] [facility] w/infection Hx of diverticulitis of colon 10/23/21>dx, [facility] Hx of gout Hx of left bundle branch block Hyperlipidemia Hypertension Kidney cysts LEFT SIDE>BEING MONITORED BY UROLOGY [facility] Morbid obesity with BMI of 40.0-44.9, adult Nocturnal hypoxemia WEARS 2L HS On home oxygen therapy 2L N/C at HS only Osteoarthritis Spinal stenosis of lumbar region with radiculopathy Surgical History H/O: hysterectomy History of arthroscopy LEFT KNEE History of arthroscopy of left knee History of bilateral tubal ligation History of cardiac cath ?2009--@ [facility] [place]--no stents History of colonoscopy History of cystoscopy History of dilatation and curettage History of esophagogastroduodenoscopy (EGD) History of right cataract surgery History of tooth extraction all teeth Hx of appendectomy Hx of cholecystectomy Nausea and vomiting after administration of anesthetic agent + VERTIGO S/P epidural steroid injection Family History Sister Family history of diabetes mellitus Sister Family history of diabetes mellitus Brother Family history of diabetes mellitus Family history of esophageal cancer Brother Family history of esophageal cancer Father Lung cancer Other No family history of adverse response to anesthesia No significant family history Social History Smoking Status: Never smoker Second Hand Exposure: No; Hx Alcohol Use: No Hx Substance Use: No Preferred Language: Dutch Communication Ability: Effective 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 Beliefs That Will Affect Care: None marital status: / Current Living Situation: Family Current Living Situation Comment: lives with son How many Children do You have: 2 Other Information That Helps Us Care for You: No Feels Safe at Home: Yes Safety Concerns: Feels Safe At This Time Assistive Devices: Walker Review of Systems Review of Systems: All systems reviewed & are unremarkable except as noted in HPI & below Physical Exam Constitutional: WD/WN, vitals as above well groomed, cooperative and comfortable Eyes: PERRL, conjunctivae normal, anicteric sclerae ENMT: external ear and nose normal, oropharynx normal Respiratory: normal respiratory effort, lungs clear to auscultation Cardiovascular: RRR, no murmur, no edema Gastrointestinal (Abdomen): TTP across lower abd area, soft, hypoactive BS Skin: no rashes, warm and dry no jaundice Psychiatric: A+Ox3, euthymic affect Lymphatic: no lymphedema Results & Data Vital Signs (Past 12 Hours) Vital Signs Temp Pulse Pulse Resp BP BP Pulse Ox 01/11/23 12:19 36.6 C 70 19 137/70 94 01/11/23 08:36 69 01/11/23 08:32 01/11/23 08:24 36.8 C 72 19 135/63 96 01/11/23 03:36 36.7 C 69 20 150/69 H 94 O2 Del Method O2 Flow Rate 01/11/23 12:19 Room Air 01/11/23 08:36 01/11/23 08:32 Room Air 01/11/23 08:24 Nasal Cannula 2 01/11/23 03:36 Room Air
--- NOTE | 2023-01-11 14:02 | Pharmacy Report ---
Pharmacy Glycemic Short Note 2 - Date of Service January 11, 2023 - Glycemic Short BSG Results (Last 24 hours): 01/10/23 01/10/23 01/10/23 15:30 20:53 22:16 Glucose 134 H POC Glucose 157 H 139 H 01/11/23 01/11/23 01/11/23 06:03 08:11 12:10 Glucose 124 H POC Glucose 143 H 162 H OUTPATIENT ANTIDIABETIC REGIMEN: * Humulin 70/30 - 70 units with breakfast, 25-30 units with dinner ASSESSMENT: * 87 year old female admitted with diverticulitis, on IV cipro + flagyl, and PO vanco for possible cdiff * Outpatient regimen is premixed basal/prandial insulin * Pre-mixed insulin is difficult to titrate since it is already in a fixed distribution of basal:prandial insulin. Continuing pre-mixed insulin for admission typically lead to hypoglycemia d/t changing PO status but rapid acting insulin is unable to be held. * Home regimen will be held for admission per pharmacy consult. Will utilize recommended regimen of SQ basal bolus insulin regimen with Lantus + NovoLog (CF+CR) PLAN FOR INPATIENT GLYCEMIC CONTROL: * Hold outpatient mixed insulin * Basal insulin * Lantus 20 units SQ QAM * Lantus 20 units HS for BSG > 200mg/dl * Bolus insulin * NovoLog per scale ACHS or Q6hrs while NPO * Goal Range: Low 110 mg/dL - High 160 mg/dL for elderly ill patient * Correction Factor: 20 mg/dL/unit * Nutritional / Prandial insulin per carb ratio of 1 unit per 7 grams CHO consumed
[2023-01-11] MEDS: FAMOTIDINE 20 MG TAB PO SCH (17:26)
--- NOTE | 2023-01-11 17:53 | Hospitalist Progress Note ---
Date of Service January 11, 2023 Assessment & Plan (1) Diverticulitis: (2) Lower abdominal pain: (3) Diarrhea: (4) Acute renal failure superimposed on stage 4 chronic kidney disease: (5) DM (diabetes mellitus): (6) Chronic diastolic (congestive) heart failure: (7) HTN (hypertension): (8) Left bundle branch block: (9) Anemia in CKD (chronic kidney disease): (10) Spinal stenosis of lumbar region with radiculopathy: (11) Morbid obesity: (12) Nocturnal hypoxemia: Plan Patient is an 87 yr female with H/O C. difficile infections, chronic diastolic heart failure (EF 55-60%, TTE 2019), chronic LBBB, labile hypertension, paroxysmal atrial fibrillation, insulin requiring type 2 diabetes, chronic anemia, history of recurrent UTIs, chronic back pain and other medical problems listed below who presents with worsening abdominal pain and diarrhea over the past 4 days and was found to have acute diverticulitis. Sepsis Acute diverticulitis Recurrent C. difficile infection --CT abd/pelvis with acute diverticulitis of the sigmoid colon. No intraperitoneal free air is identified and there is no organized fluid collection to indicate abscess on this unenhanced examination --Stool studies pending Continue Cipro, Flagyl, also on p.o. vancomycin Appreciate GI, surgery input No surgical intervention at this time Advance diet as tolerated Needs repeat colonoscopy in 6 to 8 weeks Acute renal failure on CKD 4 Poor PO intake, GI losses baseline high 2s-3 Cr:4.10>3.7 Spironolactone discontinued on previous admission Continue gentle fluids Avoid nephrotoxic agents Monitor BMP Hypokalemia Replace electrolytes as needed HTN Hypertensive Urgency Continue carvedilol, hydralazine, isosorbide, nifedipine Monitor BP DM II HbA1c:6.4 on 01/04/23 Hold home agents SSI while in-patient BSG AC HS Chronic anemia Hemoglobin at baseline ~9-10 Nocturnal hypoxemia 2L NC O2 HS DVT Px: SQ heparin Code status: FULL code Admission and Anticipated Discharge Date Admission Date: January 10, 2023 Subjective Patient is seen and examined at bedside States back pain better today Reports abdominal fullness Denies any nausea, vomiting, diarrhea Tolerates clear liquid diet No other complaints Review of Systems Review of Systems: All systems reviewed & are unremarkable except as noted in Subjective Physical Exam Physical Exam: Physical Exam: Vitals signs as noted above General Appearance:Obese, no apparent distress Head: normocephalic, Atraumatic Eyes: normal inspection, EOMI Neck: supple, Trachea midline Respiratory/Chest: Normal breath sounds, CTA, No accessory muscle use Cardiovascular: S1, S2, No murmur Abdomen/GI:Soft, mild distended, mild tender, Bowel sounds present Extremities/Musculoskeletal:normal inspection, Trace edema Neurologic/Psych:AAOX3, grossly no focal neurological deficits Skin: normal color, warm Results & Data Results & Data Vital Signs (Past 12 Hours) Vital Signs Temp Pulse Pulse Resp BP BP Pulse Ox 01/11/23 15:59 36.9 C 69 20 121/65 95 01/11/23 12:19 36.6 C 70 19 137/70 94 01/11/23 08:36 69 01/11/23 08:32 01/11/23 08:24 36.8 C 72 19 135/63 96 O2 Del Method O2 Flow Rate 01/11/23 15:59 Room Air 01/11/23 12:19 Room Air 01/11/23 08:36 01/11/23 08:32 Room Air 01/11/23 08:24 Nasal Cannula 2 Laboratory Results Short CBC 01/11/23 Range/Units 06:03 WBC 10.10 (4.8-10.8) K/ul Hgb 8.2 L (12.0-16.0) g/dl Hct 24.4 L (37.0-47.0) % Plt Count 208 (130-400) K/uL BMP 01/11/23 06:03 Sodium 136 Potassium 3.3 L Chloride 104 Carbon Dioxide 23 BUN 70 H Creatinine 3.77 H D Glucose 124 H Calcium 9.1 Urine 01/10/23 Range/Units Unknown Urine Color Yellow Urine Appearance Clear (Clear) Urine pH 5.5 (4.5-7.5) Ur Specific Capulin 1.012 (1.000-1.030) Urine Protein 2+ H (Negative) Urine Glucose (UA) Negative (Negative) (3) Diarrhea Diarrhea type: unspecified type Qualified Code(s): R19.7 - Diarrhea, unspecified
[2023-01-11] MEDS ORDERED: SODIUM CHLORIDE 0.9% 1000ML 1,000 ML IV ONE (18:03)
[2023-01-11] MEDS: CIPROFLOXACIN / D5W 400 MG/200 ML BAG IV SCH (20:26)
[2023-01-11] MEDS: HEPARIN SOD 5,000 UNIT/0.5 ML VIAL SQ SCH (20:27)
[2023-01-11] MEDS: ROSUVASTATIN CALCIUM 10 MG TAB PO SCH (20:31)
[2023-01-12] MEDS: metroNIDAZOLE 500 MG/100 ML BAG IV SCH ×3 (04:10→21:42)
[2023-01-12] MEDS: ACETAMINOPHEN 500 MG TAB PO SCH ×3 (04:45→20:41)
[2023-01-12] MEDS: KETOROLAC 0.5% OP SOLN 5 ML BTL OPB SCH ×4 (06:03→19:29)
[2023-01-12] MEDS: VANCOMYCIN HCL 125 MG/2.5ML SOLN PO SCH ×4 (06:03→23:57)
[2023-01-12] MEDS: RASPBERRY SYRUP 5 ML UDP PO SCH ×4 (06:03→23:57)
[2023-01-12] MEDS: ISOSORBIDE DINITRATE 40 MG TAB PO SCH ×3 (06:06→17:42)
[2023-01-12] MEDS: GATIFLOXACIN 0.5% OP SOLN 2.5 ML BTL OPL SCH ×4 (06:07→19:29)
[2023-01-12] MEDS: prednisoLONE acetate 1% OP SUSP 5 ML BTL OPL SCH ×4 (06:08→19:29)
[2023-01-12 06:21] LABS: Hematocrit (blood only) 24.9 % (37.0-47.0); Hemoglobin 8.3 g/dl (12.0-16.0); Mean Corpuscular Hemoglobin 30.9 pg (25.0-34.0); Mean Corpuscular Hgb Conc 33.3 g/dL (32.0-36.0); Mean Corpuscular Volume 92.6 fL (80.0-100.0); Mean Platelet Volume 9.4 fL (9.4-12.4); Platelet Count 218 K/uL (130-400); RDW Coefficient of Variation 14.2 % (11.5-14.5); Red Blood Count 2.69 M/uL (4.20-5.40); White Blood Count 10.56 K/ul (4.8-10.8)
[2023-01-12 06:38] LABS: BUN Creatinine Ratio 19.7 (10-20); Creatinine Clr Calc Pharmacy 12.7 ml/min; Est GFR (Non-African American) 11.2 ml/min; Magnesium 1.9 mg/dl (1.7-2.4); Potassium 3.4 mmol/L (3.5-5.1)
[2023-01-12] MEDS ORDERED: MAGNESIUM HYDROXIDE SUSP 30 ML UDC PO PRN (07:29)
[2023-01-12] MEDS: carvediloL 25 MG TAB PO SCH ×2 (08:20→17:42)
[2023-01-12] MEDS: CALCITRIOL 0.25 MCG CAPSULE PO SCH (08:20)
[2023-01-12] MEDS: ASPIRIN 81 MG ECTAB PO SCH (08:20)
[2023-01-12] MEDS: SACCHAROMYCES BOULARDII 250 MG CAP PO SCH (08:20)
[2023-01-12] MEDS: NIFEdipine EXTENDED REL 30 MG TABCR PO SCH (08:21)
[2023-01-12] MEDS: CYANOCOBALAMIN (B-12) 500 MCG TABLET PO SCH (08:21)
[2023-01-12] MEDS: HEPARIN SOD 5,000 UNIT/0.5 ML VIAL SQ SCH ×2 (08:21→20:37)
[2023-01-12] MEDS: hydrALAZINE TAB 50 MG TAB PO SCH ×3 (08:21→20:36)
--- NOTE | 2023-01-12 08:46 | Gastroenterology Progress Note ---
Date of Service January 12, 2023 Assessment & Plan (1) Diverticulitis: Plan: Pt is a 87 yo female w symptoms of lower abd pain, loose stools wo rectal bleeding, noted to have diverticulitis (splenic flexure and sigmoid areas) wo perforation, abscess or fluid collection. Suspected diverticulitis symptoms started during her admission last week but CT at that time wo acute findings. Hx of diverticulitis in 2020, and last colonoscopy was in 2005. Clinically improved today wo as much abd pain and no n/v, wants to try solid meals. - Cipro/Flagyl antibx for total of 10 days for diverticulitis - May keep Vancomycin for Cdiff empiric treatment given her Cdiff hx and antibx uses - Check stool cx and Cdiff - Discussed indication for repeat colonoscopy in 6 to 8 weeks after diverticulitis episode to r/o malignancy or large obstructing polyps but pt would like to defer - Advance diet as tolerated - Fiber daily once diverticulitis episode resolved - GI to sign off; pls recall prn Admission and Anticipated Discharge Date Admission Date: January 10, 2023 Supervising Physician Co-Signing Physician Notes I personally saw and evaluated the patient on 01/12/2023 with MAHI Chapman and I agree with her findings and plan of care. 87 y/o F admitted with abdominal pain and diarrhea found to have diverticulitis on imaging. She is currently on cipro and flagyl. last colonoscopy was in 2005. On physical exam she is AAOx3, abdomen soft and non-tender Continue abx for total of 10 days. Check stool studies including C. diff. I advised patient that I would recommend an outpatient colonoscopy in 6-8 weeks to exclude any colonic malignancy. She states at her age she is not interested in any colonoscopy even if she were to have a colon cancer and she does not want to pursue one. I let her know this is perfectly reasonable and she can certainly make that decision and we will not arrange outpatient colonoscopy. Ok to advance diet as tolerated. GI will sign off but please call back with questions. Kayla Bonds, DO Gastroenterology and Hepatology Subjective Pt not having much pain, but having abd pressure describing it as she may need to have BM soon. She denies n/v, wants to try solid foods. Review of Systems Review of Systems: All systems reviewed & are unremarkable except as noted in HPI & below Physical Exam Constitutional: WD/WN, vitals as above well groomed, cooperative and comfortable Eyes: PERRL, conjunctivae normal, anicteric sclerae ENMT: external ear and nose normal, oropharynx normal Respiratory: normal respiratory effort, lungs clear to auscultation Cardiovascular: RRR, no murmur, no edema Gastrointestinal (Abdomen): Generalized discomfort on palpation, soft, BS hypoactive Skin: no rashes, warm and dry no jaundice Psychiatric: A+Ox3, euthymic affect Lymphatic: no lymphedema Results & Data Vital Signs (Past 12 Hours) Vital Signs Temp Pulse Pulse Resp BP Pulse Ox O2 Del Method 01/12/23 07:01 36.6 C 71 18 127/55 L 98 Nasal Cannula 01/12/23 02:55 36.6 C 68 18 128/77 98 Room Air 01/11/23 23:45 73 01/11/23 23:00 36.7 C 73 20 131/67 95 Nasal Cannula O2 Flow Rate 01/12/23 07:01 2 01/12/23 02:55 01/11/23 23:45 01/11/23 23:00 2
[2023-01-12] MEDS ORDERED: LANTUS PER UNIT CHARGE SQ SCH (09:00)
[2023-01-12] MEDS: INSULIN ASPART PER UNIT CHARGE SC SCH ×4 (09:03→20:42)
[2023-01-12] MEDS ORDERED: POTASSIUM CHLORIDE 20 MEQ/15 ML UDC PO ONE (09:44)
[2023-01-12] MEDS ORDERED: NSS + 20MEQ KCL 20 MEQ/1,000 ML BAG IV ONE (09:47)
[2023-01-12] MEDS: PANTOprazole 40 MG TAB PO SCH (10:10)
[2023-01-12] MEDS ORDERED: POLYETHYLENE (MIRALAX) 17 GM PACK PO PRN (11:23)
[2023-01-12] MEDS: prednisoLONE acetate 1% OP SUSP 5 ML BTL OPR SCH ×2 (11:40→15:48)
[2023-01-12] MEDS: DOCUSATE SODIUM/SENNA 50/8.6MG TAB PO SCH (12:05)
[2023-01-12] MEDS: allopurinoL 100 MG TAB PO SCH (12:05)
--- NOTE | 2023-01-12 12:32 | Surgery Progress Note ---
Date of Service January 12, 2023 Assessment & Plan (1) Abdominal pain: (2) Diarrhea: (3) Diverticulitis large intestine w/o perforation or abscess w/o bleeding: (4) History of Clostridioides difficile colitis: Plan 87 year-old female with history of c.diff x 2, diverticulitis, recurrent UTIs, recently admitted here at [facility] earlier this month for hypertensive urgency and UTI presented to ED with increasing abdominal pain, bloating, diarrhea without blood for [address] scan showing acute diverticulitis of the sigmoid colon without abscess or perforation. Lactic acid normal. 01/12/2023: pain improving no leukocytosis, afebrile + flatus and soft/loose bowel movement to be sent for stool studies abd pain RUQ on deep palpation on exam today, improving Plan: No surgical intervention required at this time WOuld continue conservative management: IV abx, fluids, pain management, antiemetics as needed stool cultures okay to advance diet slowly continue medical management will need PT/OT our services signing off, please call with questions/concerns Dr. Walton has seen patient and agrees with above Admission and Anticipated Discharge Date Admission Date: January 10, 2023 Supervising Physician Co-Signing Physician Notes I have seen and examined the patient and agree with the above assessment and plan. She is doing much better and is tolerating a diet. We will sign off for now. Please call with any questions or concerns. Subjective feeling better today pain is not as constant, comes and goes mild nausea last night passed gas and soft/liquid bowel movement today no fevers or chills Physical Exam Constitutional: WD/WN, vitals as above + obese, cooperative and comfortable; no acute distress and not ill appearing Neck: normal visual inspection and trachea midline Respiratory: normal respiratory effort; no respiratory distress Gastrointestinal (Abdomen): Inspection/Auscultation: + abdomen distended (mild) Percussion/Palpation: + abdomen tender (RUQ on deep palpation) and abdomen soft; no guarding and abdomen not rigid Skin: no rashes, warm and dry Psychiatric: Orientation: alert and oriented x 3 Results & Data Vital Signs (Past 12 Hours) Vital Signs Temp Pulse Pulse Resp BP Pulse Ox O2 Del Method 01/12/23 12:13 36.8 C 70 18 137/72 95 Room Air 01/12/23 10:49 71 01/12/23 10:35 Room Air 01/12/23 07:01 36.6 C 71 18 127/55 L 98 Nasal Cannula 01/12/23 02:55 36.6 C 68 18 128/77 98 Room Air O2 Flow Rate 01/12/23 12:13 01/12/23 10:49 01/12/23 10:35 01/12/23 07:01 2 01/12/23 02:55 Laboratory Results 01/12/23 01/12/23 01/12/23 Range/Units 12:05 11:50 11:50 WBC (4.8-10.8) K/ul RBC (4.20-5.40) M/uL Hgb (12.0-16.0) g/dl Hct (37.0-47.0) % MCV (80.0-100.0) fL MCH (25.0-34.0) pg MCHC (32.0-36.0) g/dL RDW Std Deviation (36.4-46.3) fL RDW Coeff of Noemy (11.5-14.5) % Plt Count (130-400) K/uL MPV (9.4-12.4) fL Sodium (136-145) mmol/L Potassium (3.5-5.1) mmol/L Chloride (98-107) mmol/L Carbon Dioxide (21-32) mmol/L Anion Gap (3-11) BUN (6-23) mg/dl Creatinine (0.6-1.2) mg/dl Est Cr Clr Drug Dosing ml/min Est GFR ( Amer) ml/min Est GFR (Non-Af Amer) ml/min BUN/Creatinine Ratio (10-20) Glucose (70-99(Fasting)) mg/dl POC Glucose 175 H (70-99) mg/dl Calcium (8.6-10.3) mg/dl Magnesium (1.7-2.4) mg/dl Stl C. cayetanensis PCR Pending Stool Rotavirus A PCR Pending Stl Adenov F 40/41 PCR Pending Stool Astrovirus (PCR) Pending Stool Campylobacter PCR Pending Stl C. diff Tox B Gene Pending Stool Cryptosporidium PCR Pending Stl E.coli Shiga Tox PCR Pending Stl Enterotoxigenic E PCR Pending Stool EAEC (PCR) Pending Stl E. histolytica PCR Pending Stool Giardia Lamblia PCR Pending Stool Salmonella PCR Pending Stool Sapovirus (PCR) Pending Stl P. shigelloides PCR Pending Stl Shigella/EIEC PCR Pending St Y.enterocolitica PCR Pending Stool Vibrio (PCR) Pending Stl Vibrio cholerae PCR Pending Stl Norovirus GI/GII PCR Pending 01/12/23 01/12/23 01/12/23 Range/Units 08:14 05:54 05:54 WBC 10.56 (4.8-10.8) K/ul RBC 2.69 L (4.20-5.40) M/uL Hgb 8.3 L (12.0-16.0) g/dl Hct 24.9 L (37.0-47.0) % MCV 92.6 (80.0-100.0) fL MCH 30.9 (25.0-34.0) pg MCHC 33.3 (32.0-36.0) g/dL RDW Std Deviation 48.0 H (36.4-46.3) fL RDW Coeff of Noemy 14.2 (11.5-14.5) % Plt Count 218 (130-400) K/uL MPV 9.4 (9.4-12.4) fL Sodium 136 (136-145) mmol/L Potassium 3.4 L (3.5-5.1) mmol/L Chloride 105 (98-107) mmol/L Carbon Dioxide 23 (21-32) mmol/L Anion Gap 8 (3-11) BUN 68 H (6-23) mg/dl Creatinine 3.46 H D (0.6-1.2) mg/dl Est Cr Clr Drug Dosing 12.7 ml/min Est GFR ( Amer) 13.0 ml/min Est GFR (Non-Af Amer) 11.2 ml/min BUN/Creatinine Ratio 19.7 (10-20) Glucose 105 H (70-99(Fasting)) mg/dl POC Glucose 152 H (70-99) mg/dl Calcium 9.0 (8.6-10.3) mg/dl Magnesium 1.9 (1.7-2.4) mg/dl Stl C. cayetanensis PCR Stool Rotavirus A PCR Stl Adenov F 40/41 PCR Stool Astrovirus (PCR) Stool Campylobacter PCR Stl C. diff Tox B Gene Stool Cryptosporidium PCR Stl E.coli Shiga Tox PCR Stl Enterotoxigenic E PCR Stool EAEC (PCR) Stl E. histolytica PCR Stool Giardia Lamblia PCR Stool Salmonella PCR Stool Sapovirus (PCR) Stl P. shigelloides PCR Stl Shigella/EIEC PCR St Y.enterocolitica PCR Stool Vibrio (PCR) Stl Vibrio cholerae PCR Stl Norovirus GI/GII PCR 01/11/23 01/11/23 Range/Units 20:45 16:51 WBC (4.8-10.8) K/ul RBC (4.20-5.40) M/uL Hgb (12.0-16.0) g/dl Hct (37.0-47.0) % MCV (80.0-100.0) fL MCH (25.0-34.0) pg MCHC (32.0-36.0) g/dL RDW Std Deviation (36.4-46.3) fL RDW Coeff of Noemy (11.5-14.5) % Plt Count (130-400) K/uL MPV (9.4-12.4) fL Sodium (136-145) mmol/L Potassium (3.5-5.1) mmol/L Chloride (98-107) mmol/L Carbon Dioxide (21-32) mmol/L Anion Gap (3-11) BUN (6-23) mg/dl Creatinine (0.6-1.2) mg/dl Est Cr Clr Drug Dosing ml/min Est GFR ( Amer) ml/min Est GFR (Non-Af Amer) ml/min BUN/Creatinine Ratio (10-20) Glucose (70-99(Fasting)) mg/dl POC Glucose 158 H 212 H (70-99) mg/dl Calcium (8.6-10.3) mg/dl Magnesium (1.7-2.4) mg/dl Stl C. cayetanensis PCR Stool Rotavirus A PCR Stl Adenov F 40/41 PCR Stool Astrovirus (PCR) Stool Campylobacter PCR Stl C. diff Tox B Gene Stool Cryptosporidium PCR Stl E.coli Shiga Tox PCR Stl Enterotoxigenic E PCR Stool EAEC (PCR) Stl E. histolytica PCR Stool Giardia Lamblia PCR Stool Salmonella PCR Stool Sapovirus (PCR) Stl P. shigelloides PCR Stl Shigella/EIEC PCR St Y.enterocolitica PCR Stool Vibrio (PCR) Stl Vibrio cholerae PCR Stl Norovirus GI/GII PCR (1) Abdominal pain Abdominal location: generalized Qualified Code(s): R10.84 - Generalized abdominal pain
[2023-01-12] MEDS: LANTUS PER UNIT CHARGE SQ SCH ×2 (14:28→20:48)
[2023-01-12 16:27] LABS: Adenovirus F 40/41 PCR Not Detected (NotDetected); Astrovirus PCR Not Detected (NotDetected); Campylobacter PCR Not Detected (NotDetected); Cryptosporidium PCR Not Detected (NotDetected); Cyclospora cayetanensis PCR Not Detected (NotDetected); Entamoeba histolytica PCR Not Detected (NotDetected); Enteroaggregative E.coli(EAEC) Not Detected (NotDetected); Enteropathogenic E.coli (EPEC) Not Detected (NotDetected); Enterotoxigenic E.coli (ETEC) Not Detected (NotDetected); Giardia lamblia PCR Not Detected (NotDetected); Norovirus GI/GII PCR Not Detected (NotDetected); Plesiomonas shigelloides PCR Not Detected (NotDetected); Rotavirus A PCR Not Detected (NotDetected); Salmonella PCR Not Detected (NotDetected); Sapovirus PCR Not Detected (NotDetected); Shiga-like Toxin E.coli (STEC) Not Detected (NotDetected); Shigella/Enteroinvasive E.coli Not Detected (NotDetected); Vibrio cholerae PCR Not Detected (NotDetected); Vibrio species PCR Not Detected (NotDetected); Yersinia enterocolitica PCR Not Detected (NotDetected)
[2023-01-12 16:41] LABS: Cdiff Antigen Positive; Cdiff Toxin A+B Positive Cdiff Toxin (Negative); Cdiff Toxin B Gene (2yr or >) Positive Cdiff Gene (Neg)
[2023-01-12] MEDS: FAMOTIDINE 20 MG TAB PO SCH (17:42)
--- NOTE | 2023-01-12 17:56 | Hospitalist Progress Note ---
Date of Service January 12, 2023 Assessment & Plan (1) Diverticulitis: (2) Lower abdominal pain: (3) Diarrhea: (4) Acute renal failure superimposed on stage 4 chronic kidney disease: (5) DM (diabetes mellitus): (6) Chronic diastolic (congestive) heart failure: (7) HTN (hypertension): (8) Left bundle branch block: (9) Anemia in CKD (chronic kidney disease): (10) Spinal stenosis of lumbar region with radiculopathy: (11) Morbid obesity: (12) Nocturnal hypoxemia: Plan Patient is an 87 yr female with H/O C. difficile infections, chronic diastolic heart failure (EF 55-60%, TTE 2019), chronic LBBB, labile hypertension, paroxysmal atrial fibrillation, insulin requiring type 2 diabetes, chronic anemia, history of recurrent UTIs, chronic back pain and other medical problems listed below who presents with worsening abdominal pain and diarrhea over the past 4 days and was found to have acute diverticulitis. Sepsis Acute diverticulitis Recurrent C. difficile infection-POA --CT abd/pelvis with acute diverticulitis of the sigmoid colon. No intraperitoneal free air is identified and there is no organized fluid collection to indicate abscess on this unenhanced examination --Stool studies pending Continue Cipro, Flagyl, also on p.o. vancomycin Appreciate GI, surgery input No surgical intervention at this time Needs repeat colonoscopy in 6 to 8 weeks Advance to low fiber diet Isolation precautions PT/OT Acute renal failure on CKD 4 Poor PO intake, GI losses baseline high 2s-3 Cr:4.10>3.7>3.4 Spironolactone discontinued on previous admission Continue gentle fluids Avoid nephrotoxic agents Monitor BMP Hypokalemia Replace electrolytes as needed HTN Hypertensive Urgency Continue carvedilol, hydralazine, isosorbide, nifedipine Monitor BP DM II HbA1c:6.4 on 01/04/23 Hold home agents SSI while in-patient BSG AC HS Chronic anemia Hemoglobin at baseline ~9-10 Nocturnal hypoxemia 2L NC O2 HS DVT Px: SQ heparin Code status: FULL code Admission and Anticipated Discharge Date Admission Date: January 10, 2023 Subjective Patient is seen and examined at bedside Less abdominal pain today Still feels bloated Had small bowel movement today Reports chronic back pain Denies any nausea, vomiting, diarrhea Tolerating diet Review of Systems Review of Systems: All systems reviewed & are unremarkable except as noted in Subjective Physical Exam Physical Exam: Physical Exam: Vitals signs as noted above General Appearance:Obese, no apparent distress Head: normocephalic, Atraumatic Eyes: normal inspection, EOMI Neck: supple, Trachea midline Respiratory/Chest: Normal breath sounds, CTA, No accessory muscle use Cardiovascular: S1, S2, No murmur Abdomen/GI:Soft, mild distended, non tender, Bowel sounds present Extremities/Musculoskeletal:normal inspection, Trace edema Neurologic/Psych:AAOX3, grossly no focal neurological deficits Skin: normal color, warm Results & Data Results & Data Vital Signs (Past 12 Hours) Vital Signs Temp Pulse Pulse Resp BP BP Pulse Ox 01/12/23 15:37 36.7 C 73 18 124/65 93 01/12/23 15:13 71 01/12/23 12:13 36.8 C 70 18 137/72 95 01/12/23 10:49 71 01/12/23 10:35 01/12/23 07:01 36.6 C 71 18 127/55 L 98 O2 Del Method O2 Flow Rate 01/12/23 15:37 Room Air 01/12/23 15:13 01/12/23 12:13 Room Air 01/12/23 10:49 01/12/23 10:35 Room Air 01/12/23 07:01 Nasal Cannula 2 Laboratory Results Short CBC 01/12/23 Range/Units 05:54 WBC 10.56 (4.8-10.8) K/ul Hgb 8.3 L (12.0-16.0) g/dl Hct 24.9 L (37.0-47.0) % Plt Count 218 (130-400) K/uL BMP 01/12/23 05:54 Sodium 136 Potassium 3.4 L Chloride 105 Carbon Dioxide 23 BUN 68 H Creatinine 3.46 H D Glucose 105 H Calcium 9.0 (3) Diarrhea Diarrhea type: unspecified type Qualified Code(s): R19.7 - Diarrhea, unspecified
[2023-01-12] MEDS: CIPROFLOXACIN / D5W 400 MG/200 ML BAG IV SCH (19:30)
[2023-01-12] MEDS: ROSUVASTATIN CALCIUM 10 MG TAB PO SCH (20:37)
[2023-01-13] MEDS: metroNIDAZOLE 500 MG/100 ML BAG IV SCH ×3 (04:10→21:45)
[2023-01-13] MEDS: ACETAMINOPHEN 500 MG TAB PO SCH ×4 (04:13→21:42)
[2023-01-13] MEDS: RASPBERRY SYRUP 5 ML UDP PO SCH ×4 (05:59→23:35)
[2023-01-13] MEDS: GATIFLOXACIN 0.5% OP SOLN 2.5 ML BTL OPL SCH ×4 (06:01→20:26)
[2023-01-13] MEDS: VANCOMYCIN HCL 125 MG/2.5ML SOLN PO SCH ×4 (06:01→23:35)
[2023-01-13] MEDS: prednisoLONE acetate 1% OP SUSP 5 ML BTL OPL SCH ×4 (06:02→20:12)
[2023-01-13] MEDS: ISOSORBIDE DINITRATE 40 MG TAB PO SCH ×3 (06:03→16:59)
[2023-01-13] MEDS: KETOROLAC 0.5% OP SOLN 5 ML BTL OPB SCH ×4 (06:04→20:12)
[2023-01-13 06:19] LABS: Hematocrit (blood only) 24.1 % (37.0-47.0); Mean Corpuscular Hemoglobin 31.4 pg (25.0-34.0); Mean Corpuscular Hgb Conc 33.2 g/dL (32.0-36.0); Mean Corpuscular Volume 94.5 fL (80.0-100.0); Mean Platelet Volume 9.5 fL (9.4-12.4); Platelet Count 220 K/uL (130-400); RDW Coefficient of Variation 14.4 % (11.5-14.5); Red Blood Count 2.55 M/uL (4.20-5.40); White Blood Count 6.54 K/ul (4.8-10.8)
[2023-01-13 06:43] LABS: BUN Creatinine Ratio 19.9 (10-20); Calcium 9.2 mg/dl (8.6-10.3); Creatinine Clr Calc Pharmacy 13.9 ml/min; Est GFR (African American) 14.4 ml/min; Est GFR (Non-African American) 12.5 ml/min
[2023-01-13] MEDS: INSULIN ASPART PER UNIT CHARGE SC SCH ×4 (09:08→21:46)
[2023-01-13] MEDS: carvediloL 25 MG TAB PO SCH ×2 (09:15→16:57)
[2023-01-13] MEDS: NIFEdipine EXTENDED REL 30 MG TABCR PO SCH (09:15)
[2023-01-13] MEDS: allopurinoL 100 MG TAB PO SCH (09:16)
[2023-01-13] MEDS: CYANOCOBALAMIN (B-12) 500 MCG TABLET PO SCH (09:16)
[2023-01-13] MEDS: SACCHAROMYCES BOULARDII 250 MG CAP PO SCH (09:16)
[2023-01-13] MEDS: PANTOprazole 40 MG TAB PO SCH (09:16)
[2023-01-13] MEDS: HEPARIN SOD 5,000 UNIT/0.5 ML VIAL SQ SCH ×2 (09:16→21:45)
[2023-01-13] MEDS: CALCITRIOL 0.25 MCG CAPSULE PO SCH (09:16)
[2023-01-13] MEDS: hydrALAZINE TAB 50 MG TAB PO SCH ×3 (09:18→21:44)
[2023-01-13] MEDS: DOCUSATE SODIUM/SENNA 50/8.6MG TAB PO SCH (09:19)
[2023-01-13] MEDS: ASPIRIN 81 MG ECTAB PO SCH (09:19)
[2023-01-13] MEDS: LANTUS PER UNIT CHARGE SQ SCH (10:02)
[2023-01-13] MEDS: prednisoLONE acetate 1% OP SUSP 5 ML BTL OPR SCH ×2 (12:36→16:53)
--- NOTE | 2023-01-13 14:30 | Pharmacy Report ---
Pharmacy Glycemic Short Note 2 - Date of Service January 13, 2023 - Glycemic Short BSG Results (Last 24 hours): 01/12/23 01/12/23 01/13/23 17:09 20:15 00:00 Glucose POC Glucose 142 H 179 H 136 H 01/13/23 01/13/23 01/13/23 05:29 07:53 11:50 Glucose 113 H POC Glucose 152 H 204 H OUTPATIENT ANTIDIABETIC REGIMEN: * Humulin 70/30 - 70 units with breakfast, 25-30 units with dinner ASSESSMENT: 01/13 * Diet ordered, fasting remains slightly above goal * Will increase lantus ~20% to 24 units today * Continue current novolog parameters 01/12 * 87 year old female admitted with diverticulitis, on IV cipro + flagyl, and PO vanco for possible cdiff * Outpatient regimen is premixed basal/prandial insulin * Pre-mixed insulin is difficult to titrate since it is already in a fixed distribution of basal:prandial insulin. Continuing pre-mixed insulin for admission typically lead to hypoglycemia d/t changing PO status but rapid acting insulin is unable to be held. * Home regimen will be held for admission per pharmacy consult. Will utilize recommended regimen of SQ basal bolus insulin regimen with Lantus + NovoLog (CF+CR) PLAN FOR INPATIENT GLYCEMIC CONTROL: * Hold outpatient mixed insulin * Basal insulin * Lantus 24 units SQ QAM * Bolus insulin * NovoLog per scale ACHS or Q6hrs while NPO * Goal Range: Low 110 mg/dL - High 140 mg/dL for elderly ill patient * Correction Factor: 20 mg/dL/unit * Nutritional / Prandial insulin per carb ratio of 1 unit per 6 grams CHO consumed
--- NOTE | 2023-01-13 16:55 | Hospitalist Progress Note ---
Date of Service January 13, 2023 Assessment & Plan (1) Diverticulitis: (2) Lower abdominal pain: (3) Diarrhea: (4) Acute renal failure superimposed on stage 4 chronic kidney disease: (5) DM (diabetes mellitus): (6) Chronic diastolic (congestive) heart failure: (7) HTN (hypertension): (8) Left bundle branch block: (9) Anemia in CKD (chronic kidney disease): (10) Spinal stenosis of lumbar region with radiculopathy: (11) Morbid obesity: (12) Nocturnal hypoxemia: Plan Patient is an 87 yr female with H/O C. difficile infections, chronic diastolic heart failure (EF 55-60%, TTE 2019), chronic LBBB, labile hypertension, paroxysmal atrial fibrillation, insulin requiring type 2 diabetes, chronic anemia, history of recurrent UTIs, chronic back pain and other medical problems listed below who presents with worsening abdominal pain and diarrhea over the past 4 days and was found to have acute diverticulitis. 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 No intraperiton eal free air is identified and there is no organized fluid collection to indicate abscess on this unenhanced examination --Stool studies positive for c diff Continue Cipro, Flagyl, also on p.o. vancomycin Appreciate GI, surgery input No surgical intervention at this time Needs repeat colonoscopy in 6 to 8 weeks Advance to low fiber diet Isolation precautions PT/OT ID consulted Needs Rehab placement Acute renal failure on CKD 4 Poor PO intake, GI losses baseline high 2s-3 Cr:4.10>3.7>3.4>3.17 Spironolactone discontinued on previous admission Continue gentle fluids Avoid nephrotoxic agents Monitor BMP Hypokalemia Replace electrolytes as needed HTN Hypertensive Urgency Continue carvedilol, hydralazine, isosorbide, nifedipine Monitor BP DM II HbA1c:6.4 on 01/04/23 Hold home agents SSI while in-patient BSG AC HS Chronic anemia Hemoglobin at baseline ~9-10 Nocturnal hypoxemia 2L NC O2 HS DVT Px: SQ heparin Code status: FULL code Admission and Anticipated Discharge Date Admission Date: January 10, 2023 Subjective Patient is seen and examined at bedside States having nausea overnight Feels better this morning No significant abdominal pain No diarrhea today Tolerates diet Review of Systems Review of Systems: All systems reviewed & are unremarkable except as noted in Subjective Physical Exam Physical Exam: Physical Exam: Vitals signs as noted above General Appearance:Obese, no apparent distress Head: normocephalic, Atraumatic Eyes: normal inspection, EOMI Neck: supple, Trachea midline Respiratory/Chest: Normal breath sounds, CTA, No accessory muscle use Cardiovascular: S1, S2, No murmur Abdomen/GI:Soft, mild distended, non tender, Bowel sounds present Extremities/Musculoskeletal:normal inspection, Trace edema Neurologic/Psych:AAOX3, grossly no focal neurological deficits Skin: normal color, warm Results & Data Results & Data Vital Signs (Past 12 Hours) Vital Signs Temp Pulse Pulse Resp BP Pulse Ox O2 Del Method 01/13/23 16:00 73 01/13/23 12:02 36.3 C L 73 18 144/63 H 95 Room Air 01/13/23 11:21 70 01/13/23 08:15 36.2 C L 73 18 159/56 H 96 Nasal Cannula O2 Flow Rate 01/13/23 16:00 01/13/23 12:02 01/13/23 11:21 01/13/23 08:15 2 Laboratory Results Short CBC 01/13/23 Range/Units 05:29 WBC 6.54 (4.8-10.8) K/ul Hgb 8.0 L (12.0-16.0) g/dl Hct 24.1 L (37.0-47.0) % Plt Count 220 (130-400) K/uL BMP 01/13/23 05:29 Sodium 137 Potassium 4.0 Chloride 108 H Carbon Dioxide 22 BUN 63 H Creatinine 3.17 H Glucose 113 H Calcium 9.2 (3) Diarrhea Diarrhea type: unspecified type Qualified Code(s): R19.7 - Diarrhea, unspecified
[2023-01-13] MEDS: FAMOTIDINE 20 MG TAB PO SCH (16:56)
[2023-01-13] MEDS: CIPROFLOXACIN / D5W 400 MG/200 ML BAG IV SCH (20:21)
[2023-01-13] MEDS: ROSUVASTATIN CALCIUM 10 MG TAB PO SCH (21:44)
[2023-01-14] MEDS: GATIFLOXACIN 0.5% OP SOLN 2.5 ML BTL OPL SCH ×2 (04:18→13:10)
[2023-01-14] MEDS: metroNIDAZOLE 500 MG/100 ML BAG IV SCH ×2 (04:50→13:17)
[2023-01-14] MEDS: ISOSORBIDE DINITRATE 40 MG TAB PO SCH ×2 (05:57→13:13)
[2023-01-14] MEDS: prednisoLONE acetate 1% OP SUSP 5 ML BTL OPL SCH ×2 (05:57→13:11)
[2023-01-14 05:58] LABS: BUN Creatinine Ratio 18.8 (10-20); Calcium 9.4 mg/dl (8.6-10.3); Creatinine Clr Calc Pharmacy 15.3 ml/min; Est GFR (African American) 15.9 ml/min; Est GFR (Non-African American) 13.7 ml/min; Potassium 4.3 mmol/L (3.5-5.1)
[2023-01-14] MEDS: KETOROLAC 0.5% OP SOLN 5 ML BTL OPB SCH ×2 (05:58→13:11)
[2023-01-14] MEDS: VANCOMYCIN HCL 125 MG/2.5ML SOLN PO SCH ×2 (05:58→13:14)
[2023-01-14] MEDS: ACETAMINOPHEN 500 MG TAB PO SCH ×2 (05:58→13:12)
[2023-01-14] MEDS: RASPBERRY SYRUP 5 ML UDP PO SCH ×2 (05:58→13:14)
[2023-01-14] MEDS: INSULIN ASPART PER UNIT CHARGE SC SCH ×2 (09:28→13:20)
[2023-01-14] MEDS: LANTUS PER UNIT CHARGE SQ SCH (09:28)
[2023-01-14] MEDS: SACCHAROMYCES BOULARDII 250 MG CAP PO SCH (09:29)
[2023-01-14] MEDS: CYANOCOBALAMIN (B-12) 500 MCG TABLET PO SCH (09:29)
[2023-01-14] MEDS: ASPIRIN 81 MG ECTAB PO SCH (09:29)
[2023-01-14] MEDS: PANTOprazole 40 MG TAB PO SCH (09:29)
[2023-01-14] MEDS: allopurinoL 100 MG TAB PO SCH (09:29)
[2023-01-14] MEDS: CALCITRIOL 0.25 MCG CAPSULE PO SCH (09:29)
[2023-01-14] MEDS: NIFEdipine EXTENDED REL 30 MG TABCR PO SCH (09:30)
[2023-01-14] MEDS: DOCUSATE SODIUM/SENNA 50/8.6MG TAB PO SCH (09:30)
[2023-01-14] MEDS: hydrALAZINE TAB 50 MG TAB PO SCH ×2 (09:31→13:13)
[2023-01-14] MEDS: carvediloL 25 MG TAB PO SCH (09:31)
[2023-01-14] MEDS: HEPARIN SOD 5,000 UNIT/0.5 ML VIAL SQ SCH (09:36)
[2023-01-14] MEDS: prednisoLONE acetate 1% OP SUSP 5 ML BTL OPR SCH (13:11)
--- NOTE | 2023-01-14 13:19 | Hospitalist Progress Note ---
Date of Service January 14, 2023 Assessment & Plan (1) Diverticulitis: (2) Lower abdominal pain: (3) Diarrhea: (4) Acute renal failure superimposed on stage 4 chronic kidney disease: (5) DM (diabetes mellitus): (6) Chronic diastolic (congestive) heart failure: (7) HTN (hypertension): (8) Left bundle branch block: (9) Anemia in CKD (chronic kidney disease): (10) Spinal stenosis of lumbar region with radiculopathy: (11) Morbid obesity: (12) Nocturnal hypoxemia: Plan Patient is an 87 yr female with H/O C. difficile infections, chronic diastolic heart failure (EF 55-60%, TTE 2019), chronic LBBB, labile hypertension, paroxysmal atrial fibrillation, insulin requiring type 2 diabetes, chronic anemia, history of recurrent UTIs, chronic back pain and other medical problems listed below who presents with worsening abdominal pain and diarrhea over the past 4 days and was found to have acute diverticulitis. 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 No intraperiton eal free air is identified and there is no organized fluid collection to indicate abscess on this unenhanced examination --Stool studies positive for c diff Continue Cipro, Flagyl, also on p.o. vancomycin Appreciate GI, surgery input No surgical intervention at this time Needs repeat colonoscopy in 6 to 8 weeks Advance to low fiber diet Isolation precautions PT/OT Advised to follow-up with infectious disease as outpatient Plan to complete 10-day course of antibiotics for diverticulitis. We will continue tapering course of p.o. vancomycin Needs Rehab placement Acute renal failure on CKD 4 Poor PO intake, GI losses baseline high 2s-3 Cr:4.10>3.7>3.4>3.17>2.93 Spironolactone discontinued on previous admission Continue gentle fluids Avoid nephrotoxic agents Monitor BMP Hypokalemia Replace electrolytes as needed HTN Hypertensive Urgency Continue carvedilol, hydralazine, isosorbide, nifedipine Monitor BP DM II HbA1c:6.4 on 01/04/23 Hold home agents SSI while in-patient BSG AC HS Chronic anemia Hemoglobin at baseline ~9-10 Nocturnal hypoxemia 2L NC O2 HS DVT Px: SQ heparin Code status: FULL code Disposition Acute Rehab Admission and Anticipated Discharge Date Admission Date: January 10, 2023 Subjective Patient is seen and examined at bedside Feels better No new complaints Has BM Today Tolerating diet Mild abd discomfort Denies any chest pain, dyspnea, dizziness, vomiting Plan to discharge to rehab facility today Review of Systems Review of Systems: All systems reviewed & are unremarkable except as noted in Subjective Physical Exam Physical Exam: Physical Exam: Vitals signs as noted above General Appearance:Obese, no apparent distress Head: normocephalic, Atraumatic Eyes: normal inspection, EOMI Neck: supple, Trachea midline Respiratory/Chest: Normal breath sounds, CTA, No accessory muscle use Cardiovascular: S1, S2, No murmur Abdomen/GI:Soft, non tender, Bowel sounds present Extremities/Musculoskeletal:normal inspection, Trace edema Neurologic/Psych:AAOX3, grossly no focal neurological deficits Skin: normal color, warm Results & Data Results & Data Vital Signs (Past 12 Hours) Vital Signs Temp Pulse Resp BP BP Pulse Ox O2 Del Method 01/14/23 12:18 36.4 C L 77 18 153/72 H 96 Room Air 01/14/23 08:39 36.5 C 72 18 127/60 98 Nasal Cannula 01/14/23 04:50 36.5 C 72 16 168/70 H 98 Nasal Cannula O2 Flow Rate 01/14/23 12:18 01/14/23 08:39 2.0 01/14/23 04:50 2 Laboratory Results [facility] 01/14/23 05:26 Sodium 137 Potassium 4.3 Chloride 109 H Carbon Dioxide 23 BUN 55 H Creatinine 2.93 H Glucose 130 H Calcium 9.4 (3) Diarrhea Diarrhea type: unspecified type Qualified Code(s): R19.7 - Diarrhea, unspecified
--- NOTE | 2023-01-14 13:37 | Discharge Summary ---
Date of Service January 14, 2023 Admission HPI Per Admitting Provider This is an 87-year-old female with PMH of C. difficile infections, chronic diastolic heart failure (EF 55-60%, TTE 2019), chronic LBBB, labile hypertension, paroxysmal atrial fibrillation, insulin requiring type 2 diabetes, chronic anemia, history of recurrent UTIs, chronic back pain and other medical problems listed below who presents with worsening abdominal pain and diarrhea over the past 4 days. Patient was recently admitted on our service from 01/04- 01/06 for shortness of breath and hypertensive urgency. Was started on nifedipine. During admission, patient was also found to have urinary tract infection and was discharged on cefdinir to complete antibiotic course, which she states she finished yesterday. On the day following discharge home from hospital, patient had worsening lower abdominal pain she describes as intermittent cramping that has become sharper in the days since. Also began to have multiple episodes of diarrhea similar to her C. difficile episodes. Denies any blood in stool. Has not had any diarrhea since arrival to the hospital. Still having lower abdominal pain that wraps around to her lower back with associated nausea. When seen today in hospital follow up appointment at PCP office, was sent to ED for further evaluation. Denies any fever, chills, headache, lightheadedness, chest pain, shortness of breath, dysuria or constipation. Denies any medical changes since discharge last week. Admission Exam Per Admitting Provider General Appearance:WD/WN, vitals as above, NAD, lying in bed, appears acutely ill Head: normocephalic, atraumatic Eyes:normal inspection, PERRL, conjunctivae normal, anicteric sclerae ENT: external ear and nose normal, oropharynx normal Neck: normal visual inspection, trachea midline, no thyromegaly Respiratory:normal respiratory effort, lungs clear to auscultation, no wheeze, rales, rhonchi. No accessory muscle use Cardiovascular:tachycardic rate, rhythm, no murmur, normal peripheral pulses, no BLE edema. 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 Acute renal failure on CKD 4 Discharge Data Allergies Allergy/AdvReac Type Severity Reaction Status Date / Time morphine AdvReac Intermediate Confusion Verified 01/10/23 18:23 phenylpropanolamine AdvReac Intermediate INTOLERANCE Verified 01/10/23 18:23 spironolactone AdvReac Intermediate weakness Verified 01/10/23 18:20 Consultations 01/10/23 18:41 ED Decision to Admit Stat 01/10/23 20:01 Consult Gastroenterology Routine 01/10/23 20:28 Consult General Surgery Routine Procedures Performed Laboratory Results WBC 6.54 K/ul (4.8-10.8) 01/13/23 05:29 RBC 2.55 M/uL (4.20-5.40) L 01/13/23 05:29 Hgb 8.0 g/dl (12.0-16.0) L 01/13/23 05:29 Hct 24.1 % (37.0-47.0) L 01/13/23 05:29 MCV 94.5 fL (80.0-100.0) 01/13/23 05:29 MCH 31.4 pg (25.0-34.0) 01/13/23 05:29 MCHC 33.2 g/dL (32.0-36.0) 01/13/23 05:29 RDW Std Deviation 49.0 fL (36.4-46.3) H 01/13/23 05:29 RDW Coeff of Noemy 14.4 % (11.5-14.5) 01/13/23 05:29 Plt Count 220 K/uL (130-400) 01/13/23 05:29 MPV 9.5 fL (9.4-12.4) 01/13/23 05:29 Immature Gran % (Auto) 0.8 % 01/10/23 15:30 Neut % (Auto) 82.9 % 01/10/23 15:30 Lymph % (Auto) 4.9 % 01/10/23 15:30 [place] % (Auto) 9.7 % 01/10/23 15:30 Eos % (Auto) 1.4 % 01/10/23 15:30 Baso % (Auto) 0.3 % 01/10/23 15:30 Neut # (Auto) 13.58 K/uL (1.40-6.50) H 01/10/23 15:30 Lymph # (Auto) 0.80 K/uL (1.2-3.4) L 01/10/23 15:30 [place] # (Auto) 1.58 K/uL (0.11-0.59) H 01/10/23 15:30 Eos # (Auto) 0.23 K/uL (0-0.50) 01/10/23 15:30 Baso # (Auto) 0.05 K/uL (0-0.2) 01/10/23 15:30 Immature Gran # (Auto) 0.13 K/uL (0.01-0.20) 01/10/23 15:30 Sodium 137 mmol/L (136-145) 01/14/23 05:26 Potassium 4.3 mmol/L (3.5-5.1) 01/14/23 05:26 Chloride 109 mmol/L (98-107) H 01/14/23 05:26 Carbon Dioxide 23 mmol/L (21-32) 01/14/23 05:26 Anion Gap 5 (3-11) 01/14/23 05:26 BUN 55 mg/dl (6-23) H 01/14/23 05:26 Creatinine 2.93 mg/dl (0.6-1.2) H 01/14/23 05:26 Est Cr Clr Drug Dosing 15.3 ml/min 01/14/23 05:26 Est GFR ( Amer) 15.9 ml/min 01/14/23 05:26 Est GFR (Non-Af Amer) 13.7 ml/min 01/14/23 05:26 BUN/Creatinine Ratio 18.8 (10-20) 01/14/23 05:26 Glucose 130 mg/dl (70-99(Fasting)) H 01/14/23 05:26 POC Glucose 146 mg/dl (70-99) H 01/14/23 11:42 Lactate 0.8 mmol/L (0.4-2.0) 01/10/23 20:59 Calcium 9.4 mg/dl (8.6-10.3) 01/14/23 05:26 Magnesium 1.9 mg/dl (1.7-2.4) 01/12/23 05:54 Total Bilirubin 0.8 mg/dl (0.2-1.0) 01/10/23 15:30 AST 11 U/L (13-39) L 01/10/23 15:30 ALT 7 U/L (7-52) 01/10/23 15:30 Alkaline Phosphatase 52 U/L (34-104) 01/10/23 15:30 Total Protein 6.8 gm/dl (6.0-8.3) 01/10/23 15:30 Albumin 4.4 gm/dl (3.4-5.0) 01/10/23 15:30 Globulin 2.4 gm/dl (2.5-4.0) L 01/10/23 15:30 Albumin/Globulin Ratio 1.8 (0.9-2) 01/10/23 15:30 Lipase 25 U/L (11-82) 01/10/23 15:30 HCG, Qual Negative (Negative) 01/10/23 15:30 Urine Color Yellow 01/10/23 Unknown Urine Appearance Clear (Clear) 01/10/23 Unknown Urine pH 5.5 (4.5-7.5) 01/10/23 Unknown Ur Specific [place] 1.012 (1.000-1.030) 01/10/23 Unknown Urine Protein 2+ (Negative) H 01/10/23 Unknown Urine Glucose (UA) Negative (Negative) 01/10/23 Unknown Urine Ketones Negative (Negative) 01/10/23 Unknown Urine Blood Negative (Negative) 01/10/23 Unknown Urine Nitrite Negative (Negative) 01/10/23 Unknown Urine Bilirubin Negative (Negative) 01/10/23 Unknown Urine Urobilinogen Negative (Negative) 01/10/23 Unknown Ur Leukocyte Esterase Negative (Negative) 01/10/23 Unknown Urine WBC (Auto) 1-5 /hpf (0-5) 01/10/23 Unknown Urine RBC (Auto) 0-4 /hpf (0-4) 01/10/23 Unknown U Hyaline Cast (Auto) 0 /lpf (0-5) 01/10/23 Unknown U Epithel Cells (Auto) 10-20 /lpf (0-5) H 01/10/23 Unknown Urine Bacteria (Auto) Negative (Negative) 01/10/23 Unknown Stl C. cayetanensis PCR Not Detected (NotDetected) 01/12/23 11:50 Stool Rotavirus A PCR Not Detected (NotDetected) 01/12/23 11:50 Stl Adenov F 40/41 PCR Not Detected (NotDetected) 01/12/23 11:50 Stool Astrovirus (PCR) Not Detected (NotDetected) 01/12/23 11:50 Stool Campylobacter PCR Not Detected (NotDetected) 01/12/23 11:50 Stl C. diff Tox B Gene Positive Cdiff Gene (Neg) H 01/12/23 11:50 Stl C.difficile Tox A&B Positive Cdiff Toxin (Negative) A* 01/12/23 11:50 Stool Cryptosporidium PCR Not Detected (NotDetected) 01/12/23 11:50 Stl E.coli Shiga Tox PCR Not Detected (NotDetected) 01/12/23 11:50 Stl Enterotoxigenic E PCR Not Detected (NotDetected) 01/12/23 11:50 Stool EPEC (PCR) Not Detected (NotDetected) 01/12/23 11:50 Stool EAEC (PCR) Not Detected (NotDetected) 01/12/23 11:50 Stl E. histolytica PCR Not Detected (NotDetected) 01/12/23 11:50 Stool Giardia Lamblia PCR Not Detected (NotDetected) 01/12/23 11:50 Stool Salmonella PCR Not Detected (NotDetected) 01/12/23 11:50 Stool Sapovirus (PCR) Not Detected (NotDetected) 01/12/23 11:50 Stl P. shigelloides PCR Not Detected (NotDetected) 01/12/23 11:50 Stl Shigella/EIEC PCR Not Detected (NotDetected) 01/12/23 11:50 St Y.enterocolitica PCR Not Detected (NotDetected) 01/12/23 11:50 Stool Vibrio (PCR) Not Detected (NotDetected) 01/12/23 11:50 Stl Vibrio cholerae PCR Not Detected (NotDetected) 01/12/23 11:50 Stl Norovirus GI/GII PCR Not Detected (NotDetected) 01/12/23 11:50 SARS-CoV-2, RNA, NAAT NEGATIVE (NEGATIVE) 01/10/23 Unknown Impressions Abdomen/Pelvis CT 01/10/23 16:24 CT SCAN OF THE ABDOMEN AND PELVIS WITHOUT IV CONTRAST CLINICAL HISTORY: Generalized abdominal pain. COMPARISON STUDY: Abdominal CT dated 01/04/2023. TECHNIQUE: CT scan of the abdomen and pelvis is performed from the lung bases to the proximal femora. Images are reviewed in the axial, sagittal, and coronal planes. IV contrast was not administered for this examination as per the referring clinician. Note that the examination was performed in significantly suboptimal fashion without oral and IV contrast. A dose lowering technique was utilized adhering to the principles of ALARA. CT DOSE: 836.80 mGy.cm FINDINGS: Lung bases: The heart is normal in size and without pericardial effusion. The coronary arteries an mitral annulus are densely calcified. A tiny hiatal hernia is observed. There are scattered calcified granulomas. The lung bases are otherwise clear noting dependent scarring/atelectasis. Liver: The unenhanced liver is normal in size, contour, and attenuation. There is no intrahepatic biliary ductal dilatation. A 1.7 cm cyst is again seen in the left lobe. Gallbladder: Surgically absent noting clips in the gallbladder fossa. Spleen: Normal in size and attenuation. Pancreas: The unenhanced pancreas is moderately atrophic and grossly unremarkable. 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 The right adrenal gland is normal in appearance. Kidneys: The unenhanced kidneys are atrophic and without hydronephrosis. There are no renal calculi identified. A 5.3 cm complex lesion in the left renal pelvis is unchanged, as are additional bilateral simple and complex cysts. Abdominal vasculature: The abdominal aorta is normal in course and caliber noting advanced atherosclerotic calcification. Bowel: There is moderate colonic diverticulosis. Wall thickening with pericolonic inflammation and fluid involving the sigmoid colon is new from previous and consistent with acute diverticulitis. No organized fluid collection is seen to suggest abscess on this unenhanced examination. There is also faint a focus of acute diverticulitis suggested at the splenic flexure seen on image #154. No bowel obstruction is seen. The appendix is not identified and reported surgically absent. Peritoneum: There is no intraperitoneal free air or abdominal ascites. Foci of induration within the ventral abdominal wall are likely related to subcutaneous injections. Lymphadenopathy: None. Pelvic viscera: The the bladder wall appears thickened and there is pericystic infiltration. The uterus is surgically absent. No adnexal lesion is seen. Skeletal structures: The skeletal structures are osteopenic. There is moderate lumbosacral spondylosis. No lytic or blastic lesions are seen. IMPRESSION: 1. Significantly suboptimal examination without oral and IV contrast. 2. Acute diverticulitis of the sigmoid colon. 3. No intraperitoneal free air is identified and there is no organized fluid collection to indicate abscess on this unenhanced examination. 4. There is also a faint focus of acute diverticulitis suggested at the splenic flexure. 5. The bladder wall appears thickened and there is pericystic infiltration. Darby elate with clinical findings and urinalysis. 6. Additional findings as above. ACT 112: Negative or not required by law. Electronically signed by: Marco Morocho M.D. 01/10/2023 6:30 PM Ordered Studies 01/10/23 16:24 CT abd pelvis wo con Stat Hospital Course (1) Diverticulitis: (2) Lower abdominal pain: (3) Diarrhea: (4) Acute renal failure superimposed on stage 4 chronic kidney disease: (5) DM (diabetes mellitus): (6) Chronic diastolic (congestive) heart failure: (7) HTN (hypertension): (8) Left bundle branch block: (9) Anemia in CKD (chronic kidney disease): (10) Spinal stenosis of lumbar region with radiculopathy: (11) Morbid obesity: (12) Nocturnal hypoxemia: Plan Patient is an 87 yr female with H/O C. difficile infections, chronic diastolic heart failure (EF 55-60%, TTE 2019), chronic LBBB, labile hypertension, paroxysmal atrial fibrillation, insulin requiring type 2 diabetes, chronic anemia, history of recurrent UTIs, chronic back pain and other medical problems listed below who presents with worsening abdominal pain and diarrhea over the past 4 days and was found to have acute diverticulitis. 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 No intraperitoneal free air is identified and there is no organized fluid collection to indicate abscess on this unenhanced examination --Stool studies positive for c diff Continue Cipro, Flagyl, also on p.o. vancomycin Appreciate GI, surgery input No surgical intervention at this time Needs repeat colonoscopy in 6 to 8 weeks Advance to low fiber diet Isolation precautions PT/OT Advised to follow-up with infectious disease as outpatient Plan to complete 10-day course of antibiotics for diverticulitis. We will continue tapering course of p.o. vancomycin Needs Rehab placement Acute renal failure on CKD 4 Poor PO intake, GI losses baseline high 2s-3 Cr:4.10>3.7>3.4>3.17>2.93 Spironolactone discontinued on previous admission Continue gentle fluids Avoid nephrotoxic agents Monitor BMP Hypokalemia Replace electrolytes as needed HTN Hypertensive Urgency Continue carvedilol, hydralazine, isosorbide, nifedipine Monitor BP DM II HbA1c:6.4 on 01/04/23 Hold home agents SSI while in-patient BSG AC HS Chronic anemia Hemoglobin at baseline ~9-10 Nocturnal hypoxemia 2L NC O2 HS DVT Px: SQ heparin Code status: FULL code Disposition Acute Rehab Total Time Total Time Spent Total Time Spent (In Minutes): 56 minutes Discharge Plan Discharge Items Patient Disposition: Transfer Inpatient Rehab Fac Reason For Visit: DIVERTICULITIS Discharge Diagnosis: Sepsis Acute diverticulitis 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 Ramirez in 1 week upon discharge from rehab facility Follow-up with your police radio dispatcher Dr. Kayla Bonds in 6 to 8 weeks for outpatient colonoscopy Follow-up with your infectious disease for management of recurrent C. difficile infection --- Complete antibiotic course ciprofloxacin (7 more days), Flagyl (7 more days), p.o. vancomycin as prescribed Vancomycin tapering course: ---Continue p.o. vancomycin 125 mg 4 times daily for 10 days, then twice daily for 7 days then daily for 7 days and every other day for 4 weeks. --Consider getting fecal transplant for recurrent C. difficile infection as recommended by infectious disease Seek immediate medical attention if your symptoms reoccur or worsen Please take all medications as instructed on discharge list below. Please call if you have any questions or problems. You can reach a Brian hospitalist on duty at [facility] 24 hours a day by calling [phone] Pending Studies at Discharge: No Stand-Alone Forms: My [facility] Skilled Items Patient informed of condition?: Yes DNR: No Discharge Level of Care: Acute rehab Communicable Disease: Yes Discharge Prognosis: Stable Lines: None Urinary Catheter: No Medications and DC Order Prescriptions: New ciprofloxacin HCl 500 mg Tablet 500 mg PO DAILY Qty: 7 0RF vancomycin 25 mg/mL recon soln 125 mg PO DIRECTED Qty: 300 0RF Rx Instructions: take 125 mg 4 times per day for 10 days; 2 times per day for 7 days; once daily for 7 days; once every 2-3 days for 4 weeks metronidazole 500 mg tablet 500 mg PO Q8H Qty: 21 0RF Continued calcitriol 0.25 mcg capsule 0.25 mcg PO QAM Qty: 90 3RF ondansetron 4 mg tablet,disintegrating 4 mg PO Q6H PRN (Reason: nausea and vomiting) Qty: 14 0RF lidocaine [Salonpas (lidocaine)] 4 % Adhesive Patch,Medicated 1 patch TOPICAL DAILY PRN (Reason: Pain) aspirin 81 mg Tablet,Delayed Release (Dr/Ec) 81 mg PO QAM rosuvastatin 10 mg tablet 10 mg PO HS famotidine [Pepcid] 20 mg Tablet 20 mg PO QDD Rx Instructions: take with supper hydralazine 100 mg tablet 100 mg PO TID carvedilol 25 mg tablet 25 mg PO BIDM acetaminophen [Tylenol Extra Strength] 500 mg Tablet 1,000 mg PO BID simethicone 80 mg Tablet,Chewable 80 mg PO DIRECTED PRN (Reason: GAS ) allopurinol 100 mg tablet 200 mg PO QDL Rx Instructions: noon furosemide 20 mg tablet 20 mg PO QAM polyethylene glycol 3350 [Miralax] 17 gram/dose Powder 17 g PO BID PRN (Reason: Constipation) Rx Instructions: HOLD FOR LOOSE STOOLS ketorolac 0.5 % drops 1 drp OPB QID Rx Instructions: TAKES AT 0700, 1100, 1500 & 1900. WAIT 5 MINUTES BETWEEN DIFFERENT EYE DROPS GIVEN. prednisolone acetate 1 % drops,suspension 1 drp OPL QID Rx Instructions: TAKES AT 0700, 1100, 1500 & 1900. WAIT 5 MINUTES BETWEEN DIFFERENT EYE DROPS GIVEN. prednisolone acetate 1 % drops,suspension 1 drp OPR BID Rx Instructions: TAKES AT 1100 & 1500. WAIT 5 MINUTES BETWEEN DIFFERENT EYE DROPS GIVEN. gatifloxacin 0.5 % Drops 1 drp OPL QID Rx Instructions: TAKES AT 0700, 1100, 1500 & 1900. WAIT 5 MINUTES BETWEEN DIFFERENT EYE DROPS GIVEN. nifedipine [Procardia XL] 30 mg Tablet Extended Release 24hr 30 mg PO QAM Qty: 90 0RF estradiol 0.01 % (0.1 mg/gram) cream 1 g VAGINAL DIRECTED diclofenac sodium 1 % gel 4 g TOP QID PRN (Reason: Pain) Rx Instructions: apply to bilateral knees cyanocobalamin (vitamin B-12) 500 mcg Tablet 500 mcg PO QAM Qty: 30 0RF Saccharomyces boulardii [Florastor] 250 mg capsule 250 mg PO QAM Humulin 70/30 U-100 Insulin 100 unit/mL (70-30) suspension See Rx Instructions .ROUTE .COMPLEX Patient Comments: takes 70 units in am takes 25-30 units pm Rx Instructions: TAKES 70 UNITS BEFORE BREAKFAST, THEN 30 UNITS BEFORE DINNER. omeprazole 20 mg capsule,delayed release(DR/EC) 20 mg PO QAM isosorbide dinitrate 20 mg tablet 40 mg PO TID Discharge Orders: Discharge Order (Routine); Ordered 01/14/23 Ordered By: Fuentes Dave Admission Data Admit Date/Time: 01/10/23 19:39 Attending Provider: Fuentes Dave Admit Provider: Constanza Overton Primary Care Provider: Fox Ramirez Other Providers: Constanza Overton ; Kayla Bonds ; Clovis Walton ; [facility]
[2023-01-14] MEDS ORDERED: LANTUS PER UNIT CHARGE SQ ONE (14:50)
[2023-01-14] MEDS ORDERED: INSULIN ASPART PER UNIT CHARGE SC ONE (14:50)
[2023-01-14] MEDS ORDERED: metroNIDAZOLE 500 MG TAB PO SCH (21:00)
[2023-01-15] MEDS ORDERED: CIPROFLOXACIN 500 MG TAB PO SCH (21:00)
== END 2023-01-14 14:51 | DRG 872 ==
LOC: ED 14:47 → 4W 19:39 → SUATTDRO 19:39 → 4W 21:54

== ENCOUNTER 2023-09-26 08:05 | Inpatient (IN) ==
[2023-09-26] MEDS ORDERED: HYDROmorphone INJ 0.5 MG/0.5 ML SYR IV PRN (08:22)
[2023-09-26] MEDS ORDERED: ONDANSETRON INJ 2 MG/ML 2 ML VIAL IV STA (08:22)
[2023-09-26] MEDS ORDERED: ACETAMINOPHEN 1,000 MG/100 ML VIAL IV STA (08:22)
--- OUTSIDE RECORDS SUMMARY | 2023-09-26 08:30 | External Medical Summary | Continuity of Care Document ---
Author Name Unknown Organization [facility] [address] [facility] Address [address] [place], [place] [id number] Care Team Providers Care Theatre Professor Name Role Phone Fox Ramirez Primary Care Physician [phone] [facility]counter [facility] [id number] Date(s): 09/19/23 - 09/19/23 [facility] [address] [place] [address] [phone] Encounter Diagnosis End-stage renal disease(Discharge Diagnosis) - 09/19/23 Discharge Disposition: Home or Self Care Attending Physician: MARIUM Hollins Lynn Referring Physician: MD Ramirez Brett R Allergies, Adverse Reactions, Alerts No Known Allergies Assessment and Plan Extracted from: Title:Clinical Document Author:MARIUM Hollins Lynn Date:09/19/23 [facility] OUTPATIENT NOTE Name: BELKIS LERMA Patient Number: [id number] : 1935 Date of Service: 09/19/2023 Chief Complaint: _Follow-up after left arm AV fistula creation HPI: _Mrs. Lerma is an elderly female presents to Dr. Pacheco's vascular surgery office today for a 2-week follow-up visit after undergoing a left upper arm AV fistula creation. Patient states minimal discomfort to her surgical site. She denies any pain numbness weakness discoloration or necrosis of her left hand. Current Home Meds: (Last Updated 09/19 13:26) LORazepam (LORazepam 0.5 mg oral tablet) 0.25 Unknown, Oral acetaminophen (Tylenol) allopurinol (allopurinol 100 mg oral tablet) TAKE 2 TABLETS BY MOUTH DAILY aspirin 81 mg PO Daily carvedilol 25 mg PO bid cholecalciferol (Vitamin D3) cyanocobalamin (Vitamin B12 500 mcg oral tablet) 500 mcg PO Daily docusate (docusate sodium 100 mg oral capsule) TAKE 1 CAPSULE BY MOUTH IN THE MORNING AND BEFORE BEDTIME famotidine (Pepcid) 20 mg ferrous sulfate (ferrous sulfate 325 mg (65 mg elemental iron) oral tablet) TAKE 1 TABLET BY MOUTH EVERY OTHER DAY furosemide (furosemide 20 mg oral tablet) TAKE 1 TABLET BY MOUTH EVERY OTHER DAY hydrALAZINE (hydrALAZINE 100 mg oral tablet) 100 mg PO tid insulin isophane (NPH)-insulin regular (HumuLIN 70/30 KwikPen) 70 units subq before breakfast, and 20 units subq before supper iron dextran (iron dextran 50 mg/mL injectable solution) 100 mg IV per labs isosorbide dinitrate (isosorbide dinitrate 20 mg oral tablet) 20 mg PO tid ISORDIL (isosorbide dinitrate) is commonly dosed three times daily. Do not confuse with IMDUR (isosorbide mononitrate) which is a SUSTAINED RELEASE tablet typically dosed daily. Gay Mccoy 08/17 09:25 omeprazole (omeprazole 20 mg oral delayed release capsule) 20 mg PO Daily polyethylene glycol 3350 (polyethylene glycol 3350 oral powder for reconstitution) 17 g PO Daily rosuvastatin (rosuvastatin 10 mg oral tablet) 10 mg PO qhs saccharomyces boulardii lyo (saccharomyces boulardii lyo 250 mg oral capsule) TAKE 1 CAPSULE BY MOUTH EVERY DAY IN THE MORNING sodium hyaluronate (Euflexxa 10 mg/mL intra-articular solution) 20 mg intra- articular q7days lia euflexxa series spironolactone (spironolactone 25 mg oral tablet) 25 mg PO Daily unlisted medication (oxygen 2L/min at night) Allergies and Sensitivities: NKA Past Medical History: Problems: End-stage renal disease Tinea unguium Pain of right middle finger. 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 No Orthostatic Data Available Height and Weight: Last Updated 08/10/21 10:49 Date BMI Wt(kg) Wt(lb) Method Ht(cm) (ft-in) Method 08/10/21 34.4 95.6 210 Standing Scale 166.7 5-5 02/24/21 37.2 102.5 226 Standing Scale 166 5-5 05/13/20 38.47 106 233 Standing Scale 166 5-5 Heights and Weights are the last 3 documented. Physical Exam Constitutional: In general patient is a overweight but healthy-appearing well-nourished well-developed elderly female in no distress. She is alert and oriented x 3. Her son is with her in the office today. Her antecubital surgical incision is well-healed. There is no erythema ecchymosis tenderness or discharge. She has an excellent thrill and bruit over her cephalic and basilic veins of the left upper arm. She does have a palpable radial pulse and brisk capillary fill to the fingertips. ASSESSMENT: _ PLAN: _ 1 ) _end-stage renal disease Patient is not yet on hemodialysis, and has no immediate plans to start. She has an excellent thrill and bruit throughout her left upper arm AV fistula, along both the cephalic and basilic veins. We would like to have her return in about 6 weeks for reevaluation with an ultrasound prior to that visit. She is advised to call our office if she is develop any new concerning symptoms prior to that time. She is agreeable to this plan. Thank you for letting us participate in the care of this patient. Medications allopurinol 100 mg oral tablet TAKE 2 TABLETS BY MOUTH DAILY Start Date: 08/17/23 Status: Ordered aspirin Start: 04/21/20 14:23:00 EDT, 81 mg =, PO, Daily Start Date: 04/21/20 Status: Ordered carvedilol Start: 04/21/20 14:23:00 EDT, 25 mg =, PO, bid Start Date: 04/21/20 Status: Ordered docusate sodium 100 mg oral capsule TAKE 1 CAPSULE BY MOUTH IN THE MORNING AND BEFORE BEDTIME Start Date: 08/17/23 Status: Ordered Euflexxa 10 mg/mL intra-articular solution Start: 07/14/21 11:30:00 EDT, 20 mg =, intra-articular, q7days, Disp# 12 mL, lia euflexxa series, Brand Medically Necessary Start Date: 07/14/21 Status: Ordered ferrous sulfate 325 mg (65 mg elemental iron) oral tablet TAKE 1 TABLET BY MOUTH EVERY OTHER DAY Start Date: 08/17/23 Status: Ordered furosemide 20 mg oral tablet TAKE 1 TABLET BY MOUTH EVERY OTHER DAY Start Date: 08/17/23 Status: Ordered HumuLIN 70/30 KwikPen Start: 04/21/20 14:22:00 EDT, See Instructions, 70 units subq before breakfast, and 20 units subq before supper Start Date: 04/21/20 Status: Ordered hydrALAZINE 100 mg oral tablet Start: 08/17/23 9:25:00 EDT, 1 tab, PO, tid Start Date: 08/17/23 Status: Ordered iron dextran 50 mg/mL injectable solution Start: 08/17/23 9:22:00 EDT, See Instructions, 100 mg IV per labs Start Date: 08/17/23 Status: Ordered isosorbide dinitrate 20 mg oral tablet Start: 08/17/23 9:25:00 EDT, 1 tab, PO, tid Start Date: 08/17/23 Status: Ordered LORazepam 0.5 mg oral tablet Start: 11/11/20 13:45:00 EST, 0.25 Unknown, Oral Start Date: 11/11/20 Status: Ordered omeprazole 20 mg oral delayed release capsule Start: 08/17/23 9:24:00 EDT, 1 cap, PO, Daily Start Date: 08/17/23 Status: Ordered oxygen 2L/min at night Start: 08/17/23 9:30:00 EDT, oxygen 2L/min at night Start Date: 08/17/23 Status: Ordered Pepcid Start: 04/21/20 14:24:00 EDT, 20 mg = Start Date: 04/21/20 Status: Ordered polyethylene glycol 3350 oral powder for reconstitution Start: 08/17/23 9:29:00 EDT, 17 g =, PO, Daily Start Date: 08/17/23 Status: Ordered rosuvastatin 10 mg oral tablet Start: 08/17/23 9:24:00 EDT, 1 tab, PO, qhs Start Date: 08/17/23 Status: Ordered saccharomyces boulardii lyo 250 mg oral capsule TAKE 1 CAPSULE BY MOUTH EVERY DAY IN THE MORNING Start Date: 08/17/23 Status: Ordered spironolactone 25 mg oral tablet Start: 08/17/23 9:25:00 EDT, 1 tab, PO, Daily Start Date: 08/17/23 Status: Ordered Tylenol Start: 04/21/20 14:24:00 EDT Start Date: 04/21/20 Status: Ordered Vitamin B12 500 mcg oral tablet Start: 08/17/23 9:29:00 EDT, 1 tab, PO, Daily Start Date: 08/17/23 Status: Ordered Vitamin D3 Start: 04/21/20 14:22:00 EDT Start Date: 04/21/20 Status: Ordered Mental Status 09/19/23 Barriers to Learning one year None evide nt Mandatory Health Literacy Documentation Yes Health Literacy Communication Barriers N ever Primary Language Kinyarwanda Problem List Condition Confirmation Course Effective Dates Status Health Status Informant Back pain with radiation Confirmed Active Diabetes Confirmed Active End-stage renal disease Confirmed Active Hypercholesteremia Confirmed Active HTN (hypertension) Confirmed Active Knee pain Confirmed Active Tinea unguium Confirmed Active Degenerative joint disease of knee Confirmed Active Pain of right middle finger. Confirmed Active Lumbar stenosis with neurogenic claudication Confirmed Active Diagnosis Diagnosis Type Effective Dates Health Status Cl inical Service Informant End-stage renal disease Discharge Diagnosis 09/19/23 Procedures Procedure Date Related Diagnosis Body Site Status LUE AC cephalic AVF creation 09/05/23 Completed Vital Signs Most recent to oldest [Reference Range]: 1 Heart Rate 98 bpm (09/19/23 1:30 PM) Blood Pressure 156/58mmHg (09/19/23 1:30 PM) BP Location # 1 Right Arm (09/19/23 1:30 PM) Social History Social History Type Response Smoking Status Never smoked cigaret bekah Sex Female [facility] Outpt Note * MARIUM Hollins Lynn: PERFORM Event Display: [facility] Outpt Note Authored Date: [id number] [facility] OUTPATIENT NOTE Name: BELKIS LERMA Patient Number: [id number] : 1935 Date of Service: 09/19/2023 Chief Complaint: _Follow-up after left arm AV fistula creation HPI: _Mrs. Lerma is an elderly female presents to Dr. Pacheco's vascular surgery office today for a2-week follow-up visit after undergoing a left upper arm AV fistula creation. Patient states minimal discomfort to her surgical site. She denies any pain numbness weakness discoloration or necrosis of her left hand. Current Home Meds: (Last Updated 09/19 13:26) LORazepam (LORazepam 0.5 mg oral tablet) 0.25 Unknown, Oral acetaminophen (Tylenol) allopurinol (allopurinol 100 mg oral tablet) TAKE 2 TABLETS BY MOUTH DAILY aspirin 81 mg PO Daily carvedilol 25 mg PO bid cholecalciferol (Vitamin D3) cyanocobalamin (Vitamin B12 500 mcg oral tablet) 500 mcg PO Daily docusate (docusate sodium 100 mg oral capsule) TAKE 1 CAPSULE BY MOUTH IN THE MORNING AND BEFORE BEDTIME famotidine (Pepcid) 20 mg ferrous sulfate (ferrous sulfate 325 mg (65 mg elemental iron) oral tablet) TAKE 1 TABLET BY MOUTHEVERY OTHER DAY furosemide (furosemide 20 mg oral tablet) TAKE 1 TABLET BY MOUTH EVERY OTHER DAY hydrALAZINE (hydrALAZINE 100 mg oral tablet) 100 mg PO tid insulin isophane (NPH)-insulin regular (HumuLIN 70/30 KwikPen) 70 units subq before breakfast, and 20 units subq before supper iron dextran (iron dextran 50 mg/mL injectable solution) 100 mg IV per labs isosorbide dinitrate (isosorbide dinitrate 20 mg oral tablet) 20 mg PO tid ISORDIL (isosorbide dinitrate) is commonly dosed three times daily. Do not confuse with IMDUR (isosorbide mononitrate) whichis a SUSTAINED RELEASE tablet typically dosed daily. Gay Mccoy 08/17 09:25 omeprazole (omeprazole 20 mg oral delayed release capsule) 20 mg PO Daily polyethylene glycol 3350 (polyethylene glycol 3350 oral powder for reconstitution) 17 g PO Daily rosuvastatin (rosuvastatin 10 mg oral tablet) 10 mg PO qhs saccharomyces boulardii lyo (saccharomyces boulardii lyo 250 mg oral capsule) TAKE 1 CAPSULE BY MOUTH EVERY DAY IN THE MORNING sodium hyaluronate (Euflexxa 10 mg/mL intra-articular solution) 20 mg intra- articular q7days lia euflexxa series spironolactone (spironolactone 25 mg oral tablet) 25 mg PO Daily unlisted medication (oxygen 2L/min at night) Allergies and Sensitivities: NKA Past Medical History: Problems: End-stage renal disease Tinea unguium Pain of right middle finger. 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 No Orthostatic Data Available Height and Weight: Last Updated 08/10/21 10:49 Date BMI Wt(kg) Wt(lb) Method Ht(cm) (ft-in) Method 08/10/21 34.4 95.6 210 Standing Scale 166.7 5-5 02/24/21 37.2 102.5 226 Standing Scale 166 5-5 05/13/20 38.47 106 233 Standing Scale 166 5-5 Heights and Weights are the last 3 documented. Physical Exam Constitutional: In general patient is a overweight but healthy-appearing well- nourished well-developed elderly female in no distress. She is alert and oriented x 3. Her son is with her in the office today. Her antecubital surgical incision is well-healed. There is no erythema ecchymosis tenderness or discharge. She has an excellent thrill and bruit over her cephalic and basilic veins of the left upper arm. She does have a palpable radial pulse and brisk capillary fill to the fingertips. ASSESSMENT: _ PLAN: _ 1 ) _end-stage renal disease Patient is not yet on hemodialysis, and has no immediate plans to start. She has an excellent thrill and bruit throughout her left upper arm AV fistula, along both the cephalic and basilic veins. We would like to have her return in about 6 weeks for reevaluation with an ultrasound prior to that visit. She is advised to call our office if she is develop any new concerning symptoms prior to that renan e. She is agreeable to this plan. Thank you for letting us participate in the care of this patient. Electronic Signature on File CC: Clovis Childress MD [facility] [address] [facility] [id number] * CC: Fox Ramirez MD [address] [place] [phone] * Electronically Reviewed/Signed by: Robyn Hollins PA-C Author Signature Dt/Tm:09/19/2023 04:09 PM [facility] [place] [address] [facility] [address] [place] [address] LM Patient Care team information Care Team Personnel Name: MARIUM Hollins, Robyn Position: Physician Hydrologic Engineer Exempt - Vasc Surg Member Role: Lifetime Relationship Address: Address: [address] [place] [address] [address] [place] [address] [place] Name: MD Ashley, Fox Drake Position: Referring DIRECT Member Role: Primary Care Provider Address: Address: [address] [place] [address] [place] Name: ELIANE Rodriguez Christina L Position: Physician - Podiatry Member Role: Lifetime Relationship Address: Address: [address] [address] Care Team Related Persons Name: RAYNE LERMA Address: home [address] [place], [place] [id number]
--- OUTSIDE RECORDS SUMMARY | 2023-09-26 08:30 | External Medical Summary | Summary of Care ---
Author Name Unknown Organization [facility] Address [address] [place] [address] Phone [phone] Care Team Providers Care Barrel Maker Name Role Phone Fox Ramirez MD Primary Care Provider [phone] Reason for Visit * Reason Onset Date Comments Test Results Biopsy 09/21/2023 Encounter Details Date Type Department Care Team (Late st Contact Info) Description [facility] [address] [place] [address] Ghazala Wang PA-C [address] [place] [address] [place] [phone] Test Results Biopsy Allergies Active Allergy Reactions Criticality Noted Date Comments Morphine And Related 02/03/2003 confusion Phenylpropanolamine Hcl 04/30/1999 intol documented as of this encounter (statuses as of 09/21/2023) Medications Medication Sig Dispensed Refills Start Date End Date Status ASPIRIN 81 MG PO CHEW take one tablet daily 34 5 08/04/2005 Active ALCOHOL WIPES 70 % PADSIndications:DM type 2, goal A1c below 7 use as directed 12 3 11/03/2009 Active B-D ULTRAFINE III (5MM) SHORT PEN MISCIndications:DM type 2, goal A1c below 7 use twice daily 100 Pen 5 03/11/2011 Active ONETOUCH DELICA LANCETS FINE MISCIndications:Type 2 diabetes mellitus with stage 3 chronic kidney disease, with long-term current use of insulin (HCC) Use to test blood sugar 8 times daily dx e11.9 800 Each 1 11/20/2017 Active oxygen GAS Use 2 L/min(Oxygen) as directed at bedtime. 1 Each 04/03/2018 Active acetaminophen (TYLENOL) 500 MG Tablet Take 2 Tablets by mouth 2 times a day in the morning and at bedtime. 0 05/20/2022 Active famotidine (PEPCID) 20 MG TabletIndications:ta katharina once a day with supper Take 1 Tablet by mouth in the morning. 0 Active Vitamin B 12 500 MCG Oral Tablet Take by mouth daily . 0 05/10/2021 Active Ketoconazole 2 % External Shampoo (Nizoral)Indications :Seborrheic dermatitis of scalp Massage into entire scalp, rinse out after 10 minutes. Complete 3x weekly then decrease to weekly for maintenance. 120 mL 3 08/31/2021 Active Additional Information Patient not taking.Reported on 02/07/2023 Allopurinol 100 MG Oral Tablet (Zyloprim) Take 2 Tablets by mouth in the morning. 0 07/24/2021 Active Polyethylene Glycol 3350 17 GM Oral Packet (Miralax) TAKE 17 GRAMS BY MOUTH UP TO TWICE A DAY NEEDED FOR CONSTIPATION. HOLD FOR LOOSE STOOLS. 0 12/17/2021 Active OneTouch Verio In Vitro Strip (Glucose Blood)Indications:Ty pe 2 diabetes mellitus with stage 3 chronic kidney disease, with long-term current use of insulin (HCC) Use to test blood sugar 4 times daily as directed dx e11.9 400 Strip 3 01/27/2022 Active Lidocaine 4 % External Patch Place 1 Patch topically on the skin daily as needed for Pain, Mild or Pain, Moderate. 0 05/20/2022 Active Simethicone 80 MG Oral Tablet Chewable (Mylicon) Take 1 Tablet by mouth as needed for Gas. As directed 0 Active Furosemide 20 MG Oral Tablet (Lasix) Take 1 Tablet by mouth every other day. 0 08/20/2022 Active Docusate Sodium 100 MG Oral Capsule (Colace) Take 1 Capsule by mouth in the morning and 1 Capsule before bedtime. 180 Capsule 3 11/03/2022 Active Additional Information Patient taking differently:100 mg OralBID PRN, Reported on 02/28/2023 Estradiol 0.1 MG/GM Vaginal Cream (Estrace) Administer 1 g into the vagina in the morning. 42.5 g 3 11/03/2022 Active Additional Information Patient not taking.Reported on 02/07/2023 Isosorbide Dinitrate 20 MG Oral Tablet (Isordil) Take 2 Tablets by mouth 3 times a day. (8 AM, 1 PM, 6 PM) 540 Tablet 3 11/04/2022 Active Ondansetron 4 MG Oral Tablet Disintegrating (Zofran)Indications: Nausea and vomiting, unspecified vomiting type TAKE 1 TABLET BY MOUTH EVERY 6 HOURS NEEDED FOR NAUSEA AND VOMITING Strength: 4 mg 30 Tablet 3 12/09/2022 Active oxygen IN GAS 8.6 mg. 0 12/14/2022 Active Insulin Syringe-Needle U-100 30G X 1/2" 1 ML (BD Insulin Syringe U/F)Indications:Type 2 diabetes mellitus with hemoglobin A1c goal of less than 8.0% (HCC) Use with Humulin 70/30 twice a day DIRECTED Dx E11.22 200 Each 3 04/11/2023 Active Omeprazole 20 MG Oral Capsule Delayed Release (PriLOSEC)Indication s:Gastroesophageal reflux disease, unspecified whether esophagitis present TAKE BY MOUTH 1 CAPSULE IN THE MORNING. 1 HOUR BEFORE THE FIRST MEAL OF THE DAY. 90 Capsule 1 04/21/2023 Active hydrALAZINE HCl 100 MG Oral TabletIndications:HT N, goal below 140/90 TAKE 1 TABLET 3 TIMES A DAY 270 Tablet 3 06/08/2023 Active Diclofenac Sodium 1 % External Gel (Voltaren) Apply topically to affected area 4 times a day. Apply to affected area 450 g 1 06/09/2023 Active Additional Information Patient not taking.Reported on 08/21/2023 Rosuvastatin Calcium 10 MG Oral Tablet (Crestor) TAKE 1 TABLET DAILY AT BEDTIME 90 Tablet 1 06/21/2023 Active HumuLIN 70/30 (70-30) 100 UNIT/ML Subcutaneous Suspension (Insulin NPH Isophane & Regular)Indications: Type 2 diabetes mellitus with hemoglobin A1c goal of less than 7.0% (HCC) INJECT 70 UNITS UNDER THE SKIN BEFORE BREAKFAST AND 30 UNITS BEFORE SUPPER OR DIRECTED (MAX OF 110 UNITS PER DAY) 50 mL 3 06/28/2023 Active Saccharomyces boulardii 250 MG Oral Capsule (Florastor) TAKE 1 CAPSULE BY MOUTH EVERY DAY IN THE MORNING 90 Capsule 1 08/07/2023 Active Carvedilol 25 MG Oral Tablet (Coreg) Take 1 Tablet by mouth 2 times a day with morning and evening meals. 180 Tablet 3 08/21/2023 Active Spironolactone 25 MG Oral Tablet (Aldactone) Take 1 Tablet by mouth in the morning. 90 Tablet 3 08/21/2023 Active Carvedilol 25 MG Oral Tablet (Coreg) Take 1 Tablet by mouth in the morning and 1 Tablet before bedtime. 60 Tablet 1 08/21/2023 Active Spironolactone 25 MG Oral Tablet (Aldactone) Take 1 Tablet by mouth in the morning. 30 Tablet 1 08/21/2023 Active NovoLIN 70/30 (70-30) 100 UNIT/ML Subcutaneous Suspension (Insulin NPH Isophane & Regular)Indications: Type 2 diabetes mellitus with hemoglobin A1c goal of less than 8.0% ([facility]),Type 2 diabetes mellitus with stage 4 chronic kidney disease, with long-term current use of insulin ([facility]) INJECT 70 UNITS UNDER THE SKIN BEFORE BREAKFAST AND 30 UNITS BEFORE SUPPER OR DIRECTED (MAX OF 110 UNITS PER DAY) 40 mL 11 09/19/2023 Active Triamcinolone Acetonide 0.1 % External Ointment (Aristocort)Indicati ons:Contact dermatitis, unspecified contact dermatitis type, unspecified trigger Apply 2x daily (or more if itchy instead of scratching) to rash in groin region until resolved 80 g 0 09/19/2023 Active documented as of this encounter (statuses as of 09/21/2023) Active Problems Problem Noted Date Diagnosed Date Atrophic vaginitis 11/03/2022 Type 2 diabetes mellitus wit h stage 4 chronic kidney disease, with long-term current use of insulin 11/03/2022 Type 2 diabetes mellitus wit h hemoglobin A1c goal of less than 8.0% 05/27/2022 Diverticulitis of large intestine 01/10/2022 Diverticulitis of intestine with abscess 022 Arthritis 01/10/2022 Osteoarthritis of knee 01/10/2022 Onychomycosis due to dermatophyte 01/10/2022 Neoplasm of kidney 01/10/2022 Lumbar radiculopathy 01/10/2022 C. 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 12/20/2021 Lumbar stenosis with neurogenic claudication 07/2022 Hx of nonmelanoma skin cancer 06/10/2021 Overview: squamous cell carcinoma in situ (L lateral lower cheek 09/12), Zainab (R neck 04/2018, R lateral neck 09/14), bowenoid AKs (x2) H/O dysplastic nevus 06/10/2021 Overview: Low grade dysplastic nevus (L upper arm) Stage 4 chronic kidney disease 03/02/2021 Overview: Per CKD protocol Left bundle branch block 11/25/2019 Gastroesophageal reflux disease 11/25/2019 Hypertensive kidney and hear t disease with congestive heart failure, stage IV 03/04/2019 Overview: Per CKD protocol #1 Diastolic congestive heart failure 02/12/2019 Lumbar degenerative disc disease 01/04/2019 Hyperparathyroidism, secondary 06/27/2017 Vitamin D deficiency 06/27/2017 Chronic rhinitis 12/09/2016 HTN, goal below 140/90 12/23/2014 Osteoporosis 08/08/2012 Obesity 04/05/2010 Overview: Per Obesity Protocol, #19 ICD-10 update of inactive diagnosis DYSLIPIDEMIA, GOAL LDL BELOW 100 10/07/2009 Overview: Per Lipid Taxonomy. MITRAL VALVE INFUSFFICIENCY documented as of this encounter (statuses as of 09/21/2023) Resolved Problems Problem Noted Date Diagnosed Date Resolved Date Compression fracture of body of thoracic vertebra 01/10/2022 02/06/2023 Compression fracture of T6 vertebra 01/10/2022 12/09/2022 Atrial fibrillation 01/10/2022 11/03/19 23 Nocturnal hypoxia 11/25/2019 02/06/2023 Hypertensive heart disease w ith congestive heart failure and stage 3 kidney disease 02/12/2019 03/06/2019 Overview: Per CKD protocol #1 CKD (chronic kidney disease) stage 4, GFR 15-29 ml/min 06/05/2018 08/06/2018 Hyperglycemia 01/30/2018 02/06/2023 Overview: Per CKD protocol #1 Post-infection bronchospasm 12/09/2016 06/27/2017 Cough 12/09/2016 06/27/2017 Bronchitis 11/16/2014 02/06/2023 Type 2 diabetes mellitus wit h stage 3 chronic kidney disease, with long-term current use of insulin 09/30/2013 02/02/2018 Overview: Per CKD protocol #1 HTN, goal below 130/80 11/19/200912/23 Overview: Per HTN Taxonomy. Type 2 diabetes mellitus wit h hemoglobin A1c goal of less than 7.0% 08/20/2009 09/30/2013 Overview: Per Diabetes Taxonomy. ICD-10 update of inactive term HYPERTENSIVE HEART DZ 06/11/20092018 Overview: Per Heart Failure Taxonomy Protocol. ADVANCE DIRECTIVE INFORMATION 12/18/2007 02/12/2019 Overview: No, Advance Directive brochure offered , patient declined. Kidney disease, chronic, sta ge IV (GFR 15-29 ml/min) 11/23/2007 03/15/2018 Overview: Based on labs from 09/17/07 Dyslipidemia, goal to be determined 03/03/2003 10/07/2009 Overview: Per Lipid Taxonomy. Actinic keratosis 11/07/2002 06/27/2017 Dermatitis 10/10/2002 06/27/2017 Type 2 diabetes mellitus wit h hemoglobin A1c goal of less than 7.0% 07/05/1999 08/20/2009 Overview: Per Diabetes Taxonomy. ICD-10 update of inactive term HTN, goal below 140/90 11/19 Overview: Per HTN Taxonomy. Menopause 06/27/2017 Hemorrhoids 06/27/2017 Other premature beats 2016 HYPERTENSIVE HRT DIS NOS Overview: Per Heart Failure Taxonomy Protocol. documented as of this encounter (statuses as of 09/21/2023) Immunizations Name Administration Dates Next Due COVID-19 mRNA, LNP-s, No Pre serve, 2-Dose Series (Leyou software) 11/02/2021,01/12/2021,12/16/2020 Influenza, Whole Virus 08/04/2021,2019,07/24/2019,06/23,07/24/2017,08/05/2016,07/10/20 14,08/08/2012,07/12/2011,07/26/2010,1 ,08/04/2008,07/25/2007,07/31,08/18/2005,08/11/2004, 3,08/06/2002,08/23/2001,09/21/2000,,08/10/1998 Pneumococcal Conjugate Vacc, 13 Valent (Prevnar) 12/04/2014 Pneumococcal Polysaccharide PPV23 (Pneumovax) 06/15/2006 SEASONAL INFLUENZA, PF, 6 M & Above, IM , (FLULAVAL or FLUZONE) 07/13/2020,07/24/2019,07/05/2018,11/201607/05/2019 Seasonal Influenza, Quadriva lent Hd (Fluzone Hd) 08/21/2023,08/30/2022,08/04/2021 Seasonal Influenza, Quadriva lent, No Preserve, IM 08/05/2016 Seasonal Influenza, Split, I IV3, With Preserve, Inj 07/10/2015,07/10/2014,07/18/2013,07/23,07/12/2011,07/26/2010,07/29/20 09,08/04/2008,07/25/2007,07/31/2006 TD, Preservative Free 06/23/1998 TDAP (age 10 and older)(Boostrix) 08/17/2015 documented as of this encounter Social History Tobacco Use Types Packs/Day Years Used Date Smoking Tobacco: Never Smokeless Tobacco: Never Alcohol Use Standard Drinks/Week Comments No 0 (1 standard drink = 0.6 oz pur e alcohol) PHQ-2 Answer Date Recorded PHQ-2 Score 0 01/10/2019 Hunger Vital Sign Answer Date Recorded Worried About Running Out of Food in the Last Ye ar Never true 10/14/2019 Ran Out of Food in the Last Year Never true 10/14/2019 Sex and Gender Information Value Date Recorded Sex Assigned at Female 01/30/2019 1:55 PM EDT Gender Identity Female 01/30/2019 1:55 PM EDT Sexual Orientation Straight 01/30/2019 1: 55 PM EDT Job Start Date Occupation Industry Not on file Not on file Not on file documented as of this encounter Miscellaneous Notes * Telephone Encounter - Ghazala Wang PA-C - 09/21/2023 2:37 PM EST Spoke to pt regarding bx result. Zainab, plan on curettage in office on 11/02/22 at 2:40pm over Efudex cream. Pt is aware of date and time. Ghazala Wang S, MARIUM A. 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 Areas of this lesion shows some architecturalfeatures that overlap with a seborrheic keratosis, but with Bowenoid atypia. The surgical procedureappears to have removed the bulk of the lesion in the planes of section, although it is focally noted at a peripheral edge. * Telephone Encounter - Sunitha Magana OSA - 09/21/2023 1:32 PM EST Pt returning call for test results. * Telephone Encounter - Ghazala Wang PA-C - 09/21/2023 11:40 AM EST Left non specific message for pt to call back to discuss bx result. Zainab, plan on either curettage in office or use of Efudex cream. Ghazala Wang S, MARIUM A. 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 Areas of this lesion shows some architecturalfeatures that overlap with a seborrheic keratosis, but with Bowenoid atypia. The surgical procedureappears to have removed the bulk of the lesion in the planes of section, although it is focally noted at a peripheral edge. documented in this encounter Plan of Treatment Upcoming Encounters Date Type Department Care Team (Late st Contact Info) Description 11/02/2023 2:40 PM EST [address] [phone] Ghazala Wang PA-C [address] [place] [address] [place] [phone] 11/15/2023 10:40 AM EST Office Visit Otolaryngology [facility] [address] [place] [address] Linette Rodarte PA-C [address] [phone] 12/05/2023 12:50 PM EST [facility] [place] [address] [facility] [address] [facility] [address] [facility], [place] [address] 12/05/2023 1:20 PM EST [facility] [place] [address] [facility] [phone] Fox Ramirez [facility] [address] [facility] [phone] 02/29/2024 11:00 AM EDT Office Visit Cardiology, [facility] [address] [place] [address] Kaushal Nieto PA-C [address] [place] [address] 11/14/2024 11:00 AM EST [facility] [address] [facility] [address] Ghazala Wang PA-C [address] [place] [address] [place] [address] Health Maintenance Due Date Last Done Comments Zoster Vaccines (1 of 2) 1984 Hepatitis B (1 of 3 - Risk 3-dose series) 1994 Nephrology Referral 10/30/2010 10/30/2009, 6 Depression Screening 07/03/2020 07/03/2019 Diabetic Foot Exam 12/30/2021 12/30/2020, 1 12/11/2017, 08/18/2016, Additional history exists HbA1c 02/05/2023 08/07/2022, 12/2021, 03/24/2022, Additional history exists COVID-19 Vaccine ( season) 2023 11/02/2021, 01/12/2021, 12/16/2020 Albumin/Creatinine Ratio 06/28/2023 022, 03/08/2018, 07/01/2016, Additional history exists PTH 07/25/2023 07/25/2022, 09/23, 04/08/2019, Additional history exists Phosphate 07/25/2023 07/25/2022, 03/2022, 05/04/2020, Additional history exists *NEPHROLOGY REFERRAL DUE TO RESISTANT HTN 08/23/2023 Diabetic Eye Exam 12/27/2023 12/26/2022, , 09/27/2022, Additional history exists Hgb 01/16/2024 01/15/2023, 10/24, 08/11/2022, Additional history exists DTaP,Tdap,and Td Vaccines (2 - Td or Tdap) 08/17/2025 08/17/2015, 06/23/1998, 06/23/1998 Pneumococcal Vaccine: 65+ Years Completed 12/04/2014, 06/15/2006, 08/10/1998 Influenza Vaccine (FLU shot) Completed , 08/30/2022, 08/04/2021, Additional history exists GARDASIL-HPV IMMUNIZATION SERIES Aged Out No longer eligible based on patient's age to complete this topic MENINGOCOCCAL (MENACTRA/MENVEO) Aged Out No longer eligible based on patient's age to complete this topic documented as of this encounter Medical Devices Not on filedocumented as of this encounter Advance Directives Healthcare Agents on File Name Relationship Healthcare Agent [facility] Communication Devorah Trivedi Adult Child First Alternate Health Care Agent Micheal Rollins Jr. Adult Child Health Care Agent Care Teams Barrel Maker Relationship Specialty Start Date End Date Fox Ramirez MD [address] [place] [address] PCP - General 01/14/03 documented as of this encounter
[2023-09-26 08:38] LABS: Basophils # (auto) 0.03 K/uL (0.00-0.20); Basophils % (auto) 0.3 %; Eosinophils # (auto) 0.21 K/uL (0.00-0.50); Eosinophils % (auto) 2.4 %; Hematocrit (blood only) 28.9 % (37.0-47.0); Hemoglobin 9.4 g/dl (12.0-16.0); Immature Granulocytes # (auto) 0.06 K/uL (0.01-0.20); Immature Granulocytes % (auto) 0.7 %; Lymphocytes # (auto) 0.92 K/uL (1.20-3.40); Lymphocytes % (auto) 10.4 %; Mean Corpuscular Hemoglobin 31.4 pg (25.0-34.0); Mean Corpuscular Hgb Conc 32.5 g/dL (32.0-36.0); Mean Corpuscular Volume 96.7 fL (80.0-100.0); Mean Platelet Volume 9.4 fL (9.4-12.4); Monocytes # (auto) 0.68 K/uL (0.11-0.59); Monocytes % (auto) 7.7 %; Neutrophils # (auto) 6.94 K/uL (1.40-6.50); Neutrophils % (auto) 78.5 %; Platelet Count 275 K/uL (130-400); RDW Coefficient of Variation 14.8 % (11.5-14.5); RDW Standard Deviation 51.3 fL (36.4-46.3); Red Blood Count 2.99 M/uL (4.20-5.40); White Blood Count 8.84 K/ul (4.8-10.8)
--- NOTE | 2023-09-26 08:49 | Emergency Department Note ---
Impression & Plan Acute right flank pain, Anemia, CKD (chronic kidney disease) ED Provider Note ED Provider Note NAME: BELKIS LERMA AGE:87 SEX: Female : 1935 ARRIVES VIA: Private vehicle INFORMANT: Patient ED PROVIDER(s): Dilcia Wei DO CHIEF COMPLAINT: Right flank pain and right abdomen and epigastric region HPI: This is an 87-year-old female presents emerged from due to 2 days of right flank pain that radiates around into her right abdomen all the way to her epigastric region. Patient denies any prior similar episodes. Patient states she did have loose stools earlier in the week and then had a smaller more firm stool yesterday. She states the pain does not improve with position change, or application of heating pad. She states she did try Tylenol at home without improvement. She denies any recent change in medications. She denies black or bloody stools. No recent change in urine. Patient is being followed due to chronic kidney disease, she is not yet on dialysis. PAST MEDICAL HISTORY:See Below PAST SURGICAL HISTORY:See Below FAMILY HISTORY:See Below SOCIAL HISTORY:See Below HOME MEDICATIONS:See Below ALLERGIES:See Below VITALS:See Below PHYSICAL EXAMINATION: GENERAL: alert, uncomfortable appearing, well nourished, no distress, non-toxic EYE EXAM: normal conjunctiva, PERRL and EOM's grossly intact OROPHARYNX: no exudate, no erythema, lips, buccal mucosa, and tongue normal and mucous membranes are moist NECK: supple, no nuchal rigidity, no adenopathy, non-tender LUNGS: Clear to auscultation. Normal chest wall mechanics, no w/r/r HEART: no murmurs, S1 normal and S2 normal ABDOMEN: abdomen soft, non-tender, normo-active bowel sounds, no masses, no rebound or guarding. Pain with palpation along right flank. No overlying erythema or rash. BACK: Back is symmetrical on inspection and there is no deformity, no midline tenderness, no CVA tenderness. SKIN: no rashes, petechiae, orbruising UPPER EXTREMITIES: upper extremities are grossly normal. FROM, nml pulses b/l. LOWER EXTREMITIES: No pitting edema. FROM, nml pulses b/l. NEURO EXAM: Normal sensorium, cranial nerves II-XII grossly intact, normal speech, no facial droop,nogross weakness of arms, no gross weakness of legs. Gross sensation intact. No ataxia. Vital Signs: reviewed and remarkable Differential Diagnosis: Colitis, diverticulitis, bowel obstruction, pneumonia, UTI, pyelonephritis, ureterolithiasis, viral syndrome, musculoskeletal pain, herpes zoster, as well as others were considered MEDICAL DECISION MAKING: This is an 87-year-old female presents emergency department due to persistent right-sided flank and abdominal pain. Patient afebrile and vital signs stable on arrival. Labs drawn and sent, IV established, EKG and chest ray performed bedside interpreted by me and patient monitored on telemetry. She was given a small amount of IV fluids due to her renal history as well as IV Tylenol and a dose of IV Dilaudid. She was also given IV Zofran for nausea. She was sent for CT of the abdomen and pelvis which did not reveal any acute pathology. Patient did require additional doses of IV Dilaudid. UA likely contaminated due to greater than 30 epithelial cells although patient does have a history of UTI. Given flank pain, comorbidities, and history of UTI, she was given 2 g of IV Rocephin after review of prior urine cultures. Due to concern for unclear etiology of her pain as well as persistent need for IV pain medication, case discussed with [facility] team for additional evaluation and management. Patient known to have CKD and creatinine today does appear improved compared to prior. Patient was noted to also have anemia although this appears stable compared to prior. Consultation(s): 1125: Discussed with [facility] team, for additional evaluation and mgmt. ER Treatment Provided: See below Diagnostics Interpreted By Me: -ECG: Normal sinus at 73, normal axis, normal intervals, no acute ST/T wave changes -Cardiac Monitoring: An order was placed for continuous cardiac monitoring. The monitor shows a rate of 80 with normal sinus rhythm. -Laboratory studies: As stated above and show below. -Imaging studies: X-ray Chest: A single view study of the chest was reviewed and was negative for focal infiltrate, effusion, pulmonary edema, or wide mediastinum. Mild cardiomegaly noted. Triage Nursing Note Reviewed Prior/Outside Records Reviewed Past Med/Surg History Medical History Bladder leak Hx of basal cell carcinoma Anemia Spinal stenosis of lumbar region with radiculopathy History of COVID-19 04/26/22, pcr test [place], admitted>pneumonia>resolved. Hx of gout Hx of left bundle branch block Intermittent Hx of Clostridium difficile infection Most recent C diff infection 12/2022- admitted to [facility] and treated with abx Hx of diverticulitis of colon Most recent episode 12/2022 - admitted at [facility] Kidney cysts LEFT SIDE>BEING MONITORED BY UROLOGY [facility] [place] Chronic back pain History of kidney stones Diabetes mellitus, type 2 Hearing deficit Hyperlipidemia Chronic kidney disease (CKD), stage IV (severe) follows with Dr. Fior Rashid nephmaxine aware of patient following with vascular surgery Nocturnal hypoxemia WEARS 2L HS HTN (hypertension) CHF (congestive heart failure) follows with Kaushal Nieto PA-C EF 55-60% per 12/2022 ECHO Surgical History History of left cataract surgery History of right cataract surgery History of arthroscopy LEFT KNEE S/P epidural steroid injection Nausea and vomiting after administration of anesthetic agent + VERTIGO History of dilatation and curettage History of bilateral tubal ligation History of arthroscopy of left knee History of esophagogastroduodenoscopy (EGD) History of colonoscopy History of tooth extraction all teeth History of cystoscopy History of cardiac cath ?2009--@ [facility] [place]no stents Hx of appendectomy Hx of cholecystectomy H/O: hysterectomy Family History Sister Family history of diabetes mellitus Sister Family history of diabetes mellitus Brother Family history of diabetes mellitus Family history of esophageal cancer Brother Family history of esophageal cancer Father Lung cancer Other No family history of adverse response to anesthesia No significant family history Social History Smoking Status: Never smoker Second Hand Exposure: No; Do You Dip or Chew Tobacco: No; Hx Alcohol Use: No Hx Substance Use: No Preferred Language: Albanian Communication Ability: Effective Visual Impairment: Partially Limited Adapted Physical Education Teacher Required: No Beliefs That Will Affect Care: None marital status: / Current Living Situation: Family Current Living Situation Comment: lives with son How many Children do You have: 2 Feels Safe at Home: Yes Assistive Devices: Denture - Upper, Denture - Lower, Glasses, Hearing Aid - Bilateral, Oxygen - at Night and Walker Allergies Allergies Allergy/AdvReac Type Severity Reaction Status Date / Time morphine AdvReac Intermediate Confusion Verified 09/26/23 10:53 phenylpropanolamine AdvReac Intermediate INTOLERANCE Verified 09/26/23 10:53 spironolactone AdvReac Intermediate weakness Verified 09/26/23 10:53 Home Meds Home Medications Medication Instructions Recorded Confirmed aspirin 81 mg tablet,delayed 81 mg PO QAM 12/30/18 09/26/23 release rosuvastatin 10 mg tablet 10 mg PO HS 12/30/18 09/26/23 famotidine 20 mg tablet (Pepcid) 20 mg PO QDD 11/18/19 09/26/23 lidocaine 4 % topical patch 1 patch topical DAILY Pain 06/23/20 09/26/23 (Salonpas (lidocaine)) diclofenac sodium 1 % topical gel 4 g topical QID PRN Pain 03/17/21 09/26/23 carvedilol 25 mg tablet 25 mg PO BIDM 06/13/21 09/26/23 hydralazine 100 mg tablet 100 mg PO TID 06/13/21 09/26/23 Saccharomyces boulardii 250 mg 250 mg PO QAM 08/26/21 09/26/23 capsule (Florastor) acetaminophen 500 mg tablet 1,000 mg PO BID 04/26/22 09/26/23 (Tylenol Extra Strength) insulin human U-100 NPH-regulr See Rx Instructions .Route .COMPLEX 08/05/22 09/26/23 70-30 mix 100 unit/mL subcutaneous susp (Humulin 70/30 U-100 Insulin) isosorbide dinitrate 20 mg tablet 40 mg PO TID 08/05/22 09/26/23 omeprazole 20 mg capsule,delayed 20 mg PO QAM 08/05/22 09/26/23 release polyethylene glycol 3350 17 17 g PO BID PRN Constipation 12/14/22 09/26/23 gram/dose oral powder (Miralax) allopurinol 100 mg tablet 200 mg PO QDL 08/23/23 09/26/23 spironolactone 25 mg tablet 25 mg PO QAM 08/23/23 09/26/23 docusate sodium 100 mg capsule 100 mg PO BID 09/26/23 09/26/23 sennosides 8.6 mg tablet (Senokot) 8.6 mg PO HS PRN Constipation 09/26/23 09/26/23 Previous Rx's Medication Instructions Recorded cyanocobalamin (vitamin B-12) 500 500 mcg PO QAM #30 tabs 03/27/21 mcg tablet ondansetron 4 mg disintegrating 4 mg PO Q6H PRN nausea and 11/25/21 tablet vomiting #14 tabs furosemide 20 mg tablet 20 mg PO Q OTHER DAY #45 tabs 08/04/23 Results & Data (ED) Vital Signs Vital Signs - 24 hr 09/26/23 08:11 09/26/23 08:34 09/26/23 08:35 Temperature 36.1 C L Temperature Source Temporal Artery Scan Pulse Rate 84 74 74 Pulse Rate from SpO2 Sensor Respiratory Rate 18 18 Blood Pressure 136/64 Blood Pressure Mean 88 Pulse Oximetry 98 Oxygen Delivery Method Room Air Sepsis Recent Fever Within 48 Hours No Sepsis New/Unexplained Change in Mental Status N/A Sepsis Action Taken by Nursing No Action Required 09/26/23 09:09 09/26/23 09:30 09/26/23 10:00 Temperature Temperature Source Pulse Rate 88 79 82 Pulse Rate from SpO2 Sensor 87 78 83 Respiratory Rate 26 H 18 25 H Blood Pressure Blood Pressure Mean Pulse Oximetry 94 95 94 Oxygen Delivery Method Sepsis Recent Fever Within 48 Hours Sepsis New/Unexplained Change in Mental Status Sepsis Action Taken by Nursing 09/26/23 10:12 09/26/23 10:12 09/26/23 10:30 Temperature Temperature Source Pulse Rate 79 79 Pulse Rate from SpO2 Sensor 79 79 Respiratory Rate 22 17 Blood Pressure 175/68 H Blood Pressure Mean 134 Pulse Oximetry 96 92 Oxygen Delivery Method Sepsis Recent Fever Within 48 Hours Sepsis New/Unexplained Change in Mental Status Sepsis Action Taken by Nursing 09/26/23 11:00 09/26/23 12:35 Temperature Temperature Source Pulse Rate 76 76 Pulse Rate from SpO2 Sensor 76 Respiratory Rate 13 Blood Pressure Blood Pressure Mean Pulse Oximetry 94 Oxygen Delivery Method Sepsis Recent Fever Within 48 Hours Sepsis New/Unexplained Change in Mental Status Sepsis Action Taken by Nursing Laboratory Data 09/26/23 08:24 09/26/23 08:24 Lab Results 09/26/23 09/26/23 Range/Units 08:24 08:36 WBC 8.84 (4.8-10.8) K/ul RBC 2.99 L (4.20-5.40) M/uL Hgb 9.4 L (12.0-16.0) g/dl Hct 28.9 L (37.0-47.0) % MCV 96.7 (80.0-100.0) fL MCH 31.4 (25.0-34.0) pg MCHC 32.5 (32.0-36.0) g/dL RDW Std Deviation 51.3 H (36.4-46.3) fL RDW Coeff of Noemy 14.8 H (11.5-14.5) % Plt Count 275 (130-400) K/uL MPV 9.4 (9.4-12.4) fL Immature Gran % (Auto) 0.7 % Neut % (Auto) 78.5 % Lymph % (Auto) 10.4 % Cherry % (Auto) 7.7 % Eos % (Auto) 2.4 % Baso % (Auto) 0.3 % Neut # (Auto) 6.94 H (1.40-6.50) K/uL Lymph # (Auto) 0.92 L (1.20-3.40) K/uL Cherry # (Auto) 0.68 H (0.11-0.59) K/uL Eos # (Auto) 0.21 (0.00-0.50) K/uL Baso # (Auto) 0.03 (0.00-0.20) K/uL Immature Gran # (Auto) 0.06 (0.01-0.20) K/uL PT 10.4 (9.0-12.0) Seconds INR 0.9 (0.9-1.1) Sodium 137 (136-145) mmol/L Potassium 4.9 (3.5-5.1) mmol/L Chloride 108 H (98-107) mmol/L Carbon Dioxide 22 (21-32) mmol/L Anion Gap 7 (3-11) BUN 57 H (6-23) mg/dl Creatinine 2.78 H (0.6-1.2) mg/dl Est Cr Clr Drug Dosing Not Reportable Est GFR ( Amer) 16.9 ml/min Est GFR (Non-Af Amer) 14.6 ml/min BUN/Creatinine Ratio 20.5 H (10-20) Glucose 193 H (70-99(Fasting)) mg/dl Calcium 10.5 H (8.6-10.3) mg/dl Magnesium 1.9 (1.7-2.4) mg/dl Total Bilirubin 0.8 (0.2-1.0) mg/dl AST 11 L (13-39) U/L ALT 7 (7-52) U/L Alkaline Phosphatase 59 (34-104) U/L Troponin I High Sens 6.7 (0-14) pg/ml Total Protein 6.1 (6.0-8.3) gm/dl Albumin 4.2 (3.4-5.0) gm/dl Globulin 1.9 L (2.5-4.0) gm/dl Albumin/Globulin Ratio 2.2 H (0.9-2) Lipase 25 (11-82) U/L Urine Color Yellow Urine Appearance Cloudy A (Clear) Urine pH 5.0 (4.5-7.5) Ur Specific [place] 1.011 (1.000-1.030) Urine Protein 1+ H (Negative) Urine Glucose (UA) Negative (Negative) Urine Ketones Negative (Negative) Urine Blood Negative (Negative) Urine Nitrite Negative (Negative) Urine Bilirubin Negative (Negative) Urine Urobilinogen Negative (Negative) Ur Leukocyte Esterase Trace H (Negative) Urine WBC (Auto) 1-5 (0-5) /hpf Urine RBC (Auto) 0-4 (0-4) /hpf U Hyaline Cast (Auto) 1-5 (0-5) /lpf U Epithel Cells (Auto) >30 H (0-5) /lpf Urine Bacteria (Auto) 2+ H (Negative) Urine Yeast Not Reportable Administered Medications Discontinued Medications Hydromorphone HCl (Hydromorphone Inj 0.5 Mg/0.5 Ml Syr) 0.5 mg IV Q15M PRN PRN Reason: Pain Stop: 10/10/23 08:21 Last Admin: 09/26/23 10:17 Dose: 0.5 mg Documented By: HS Acetaminophen (Ofirmev) 1,000 mg in 100 mls @ 400 mls/hr IV NOW STA Stop: 09/26/23 08:36 Last Infusion: 09/26/23 08:46 Dose: Infused Documented By: Admin: 09/26/23 08:31 Dose: 400 mls/hr Documented By: HS Ceftriaxone Sodium (Rocephin) 2,000 mg in 50 mls @ 100 mls/hr IV NOW STA Stop: 09/26/23 10:38 Last Infusion: 09/26/23 10:47 Dose: Infused Documented By: Admin: 09/26/23 10:17 Dose: 100 mls/hr Documented By: KARLOS Ondansetron HCl (Ondansetron Inj 2 Mg/Ml 2 Ml Vial) 4 mg IV NOW STA Stop: 09/26/23 08:23 Last Admin: 09/26/23 08:31 Dose: 4 mg Documented By: KARLOS Imaging Data Radiologist's Impression: Abdomen/Pelvis CT 09/26/23 08:22 CT SCAN OF THE ABDOMEN AND PELVIS WITHOUT IV CONTRAST CLINICAL HISTORY: Right flank pain COMPARISON STUDY: Prior abdominal CT scans, most recently dated 01/10/2023. TECHNIQUE: CT scan of the abdomen and pelvis is performed from the lung bases to the proximal femora. Images are reviewed in the axial, sagittal, and coronal planes. IV contrast was not administered for this examination. A dose lowering technique was utilized adhering to the principles of ALARA. CT DOSE: 1301.32 mGy.cm FINDINGS: Lung bases: The heart is mildly enlarged and without pericardial effusion. The coronary arteries an mitral annulus are densely calcified. A tiny hiatal hernia is observed. There are scattered calcified granulomas. The lung bases are otherwise clear noting dependent scarring/atelectasis. Liver: The unenhanced liver is normal in size, contour, and attenuation. There is no intrahepatic biliary ductal dilatation. A 1.7 cm cyst is again seen in the left lobe. Gallbladder: Surgically absent noting clips in the gallbladder fossa. Spleen: Normal in size and attenuation. Pancreas: The unenhanced pancreas is moderately atrophic and grossly unremarkable. 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 The right adrenal gland is normal in appearance. Kidneys: The unenhanced kidneys are atrophic and without hydronephrosis. There are no renal calculi identified. A 5.9 cm complex lesion in the left renal pelvis is unchanged, as are additional bilateral simple and complex cysts. Abdominal vasculature: The abdominal aorta is normal in course and caliber noting advanced atherosclerotic calcification. Bowel: There is moderate colonic diverticulosis without clear CT evidence of acute diverticulitis. No bowel obstruction is seen. The appendix is not identified and reported surgically absent. Peritoneum: There is no intraperitoneal free air or abdominal ascites. There is a fat-containing umbilical hernia. Foci of induration within the ventral abdominal wall are likely related to subcutaneous injections. Lymphadenopathy: None. Pelvic viscera: There are small foci of gas within the bladder lumen. The bladder is otherwise normal as imaged. The uterus is surgically absent. No adnexal lesion is seen. Skeletal structures: The skeletal structures are osteopenic. There is moderate lumbosacral spondylosis. No lytic or blastic lesions are seen. IMPRESSION: 1. No acute infectious or inflammatory findings are identified in the abdomen or pelvis. 2. Colonic gas. There are CT findings of acute diverticulitis. 3. Small foci of gas within the bladder lumen a nonspecific and may be related to instrumentation. Correlate with clinical findings and urinalysis. 4. Additional findings as above. ACT 112: Negative or not required by law. Electronically signed by: Marco Morocho M.D. 09/26/2023 9:47 AM Chest X-Ray 09/26/23 08:23 XR chest 1V portable HISTORY: Atypical chest pain. COMPARISON: Chest 01/04/2023. FINDINGS: No pneumothorax. No pleural effusions. The heart remains enlarged. There is mild central pulmonary vascular congestion without overt edema. No focal lung consolidations to suggest a pneumonia. No acute fractures identified. IMPRESSION: Cardiomegaly and mild central pulmonary vascular congestion without overt edema. ACT 112: Negative or not required by law. Electronically signed by: Catrachito Cuenca M.D. 09/26/2023 9:49 AM Discharge Plan Visit Data Chief Complaint: Chest Pain Stated Complaint: CHEST PAIN, SHOULDER PAIN ED Provider: Dilcia Wei Discharge Problem: Acute right flank pain, Anemia, CKD (chronic kidney disease) Forms Stand Alone Forms: [facility] Prescriptions Prescriptions: No Action furosemide 20 mg tablet 20 mg PO Q OTHER DAY Qty: 45 3RF ondansetron 4 mg tablet,disintegrating 4 mg PO Q6H PRN (Reason: nausea and vomiting) Qty: 14 0RF lidocaine [Salonpas (lidocaine)] 4 % Adhesive Patch,Medicated 1 patch TOPICAL DAILY aspirin 81 mg Tablet,Delayed Release (Dr/Ec) 81 mg PO QAM rosuvastatin 10 mg tablet 10 mg PO HS famotidine [Pepcid] 20 mg Tablet 20 mg PO QDD Rx Instructions: take with supper hydralazine 100 mg tablet 100 mg PO TID carvedilol 25 mg tablet 25 mg PO BIDM acetaminophen [Tylenol Extra Strength] 500 mg Tablet 1,000 mg PO BID polyethylene glycol 3350 [Miralax] 17 gram/dose Powder 17 g PO BID PRN (Reason: Constipation) Rx Instructions: HOLD FOR LOOSE STOOLS allopurinol 100 mg tablet 200 mg PO QDL spironolactone 25 mg tablet 25 mg PO QAM sennosides [Senokot] 8.6 mg Tablet 8.6 mg PO HS PRN (Reason: Constipation) docusate sodium 100 mg capsule 100 mg PO BID diclofenac sodium 1 % gel 4 g TOP QID PRN (Reason: Pain) Rx Instructions: apply to bilateral knees cyanocobalamin (vitamin B-12) 500 mcg Tablet 500 mcg PO QAM Qty: 30 0RF Saccharomyces boulardii [Florastor] 250 mg capsule 250 mg PO QAM Humulin 70/30 U-100 Insulin 100 unit/mL (70-30) suspension See Rx Instructions .ROUTE .COMPLEX Patient Comments: takes 70 units in am takes 25-30 units pm Rx Instructions: TAKES 70 UNITS BEFORE BREAKFAST, THEN 30 UNITS BEFORE DINNER. omeprazole 20 mg capsule,delayed release(DR/EC) 20 mg PO QAM isosorbide dinitrate 20 mg tablet 40 mg PO TID Referrals Referrals: Fox Ramirez MD [Primary Care Provider] -
[2023-09-26 08:51] LABS: Alanine Aminotransferase 7 U/L (7-52); Albumin Globulin Ratio 2.2 (0.9-2); Albumin Level 4.2 gm/dl (3.4-5.0); Alkaline Phosphatase 59 U/L (34-104); Anion Gap 7 (3-11); Aspartate Aminotransferase 11 U/L (13-39); BUN Creatinine Ratio 20.5 (10-20); Bilirubin,Total 0.8 mg/dl (0.2-1.0); Blood Urea Nitrogen 57 mg/dl (6-23); Calcium 10.5 mg/dl (8.6-10.3); Carbon Dioxide 22 mmol/L (21-32); Chloride 108 mmol/L (98-107); Est GFR (African American) 16.9 ml/min; Est GFR (Non-African American) 14.6 ml/min; Globulin 1.9 gm/dl (2.5-4.0); Glucose 193 mg/dl (70-99(Fasting)); Lipase 25 U/L (11-82); Magnesium 1.9 mg/dl (1.7-2.4); Potassium 4.9 mmol/L (3.5-5.1); Sodium 137 mmol/L (136-145); Total Protein 6.1 gm/dl (6.0-8.3)
[2023-09-26 08:57] LABS: Troponin I High Sensitivity 6.7 pg/ml (0-14)
[2023-09-26 09:02] LABS: INR 0.9 (0.9-1.1); Prothrombin Time 10.4 Seconds (9.0-12.0)
[2023-09-26 09:03] LABS: Appearance Urine Cloudy (Clear); Bilirubin Urine Negative (Negative); Blood Urine Negative (Negative); Color Urine Yellow; Epithelial Cell Urine Auto >30 /lpf (0-5); Glucose Urine UA Negative (Negative); Ketones Urine Negative (Negative); Leukocyte Esterase Urine Trace (Negative); Nitrite Urine Negative (Negative); Protein Urine 1+ (Negative); Specific Gravity Urine 1.011 (1.000-1.030); Urobilinogen Urine Negative (Negative)
[2023-09-26 09:18] LABS: Bacteria Urine Automated 2+ (Negative); RBC Urine Automated 0-4 /hpf (0-4)
--- NOTE | 2023-09-26 09:48 | CT Scan Report ---
CT SCAN OF THE ABDOMEN AND PELVIS WITHOUT IV CONTRAST CLINICAL HISTORY: Right flank pain COMPARISON STUDY: Prior abdominal CT scans, most recently dated 01/10/2023. TECHNIQUE: CT scan of the abdomen and pelvis is performed from the lung bases to the proximal femora. Images are reviewed in the axial, sagittal, and coronal planes. IV contrast was not administered for this examination. A dose lowering technique was utilized adhering to the principles of ALARA. CT DOSE: 1301.32 mGy.cm FINDINGS: Lung bases: The heart is mildly enlarged and without pericardial effusion. The coronary arteries an m itral annulus are densely calcified. A tiny hiatal hernia is observed. There are scattered calcified granulomas. The lung bases are otherwise clear noting dependent scarring/atelectasis. Liver: The unenhanced liver is normal in size, contour, and attenuation. There is no intrahepatic lia iary ductal dilatation. A 1.7 cm cyst is again seen in the left lobe. Gallbladder: Surgically absent noting clips in the gallbladder fossa. Spleen: Normal in size and attenuation. Pancreas: The unenhanced pancreas is moderately atrophic and grossly unremarkable. 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 The right adrenal gland is nor mal in appearance. Kidneys: The unenhanced kidneys are atrophic and without hydronephrosis. There are no renal calculi i dentified. A 5.9 cm complex lesion in the left renal pelvis is unchanged, as are additional bilateral simple and complex cysts. Abdominal vasculature: The abdominal aorta is normal in course and caliber noting advanced atheroscle rotic calcification. Bowel: There is moderate colonic diverticulosis without clear CT evidence of acute diverticulitis. No bowel obstruction is seen. The appendix is not identified and reported surgically absent. Peritoneum: There is no intraperitoneal free air or abdominal ascites. There is a fat-containing umbi lical hernia. Foci of induration within the ventral abdominal wall are likely related to subcutaneous injections. Lymphadenopathy: None. Pelvic viscera: There are small foci of gas within the bladder lumen. The bladder is otherwise normal as imaged. The uterus is surgically absent. No adnexal lesion is seen. Skeletal structures: The skeletal structures are osteopenic. There is moderate lumbosacral spondylosi s. No lytic or blastic lesions are seen. IMPRESSION: 1. No acute infectious or inflammatory findings are identified in the abdomen or pelvis. 2. Colonic gas. There are CT findings of acute diverticulitis. 3. Small foci of gas within the bladder lumen a nonspecific and may be related to instrumentation. Co rrelate with clinical findings and urinalysis. 4. Additional findings as above. ACT 112: Negative or not required by law. Electronically signed by: Marco Morocho M.D. 09/26/2023 9:47 AM
--- NOTE | 2023-09-26 09:50 | XRay Report ---
XR chest 1V portable HISTORY: Atypical chest pain. COMPARISON: Chest 01/04/2023. FINDINGS: No pneumothorax. No pleural effusions. The heart remains enlarged. There is mild central pu lmonary vascular congestion without overt edema. No focal lung consolidations to suggest a pneumonia. No acute fractures identified. IMPRESSION: Cardiomegaly and mild central pulmonary vascular congestion without overt edema. ACT 112: Negative or not required by law. Electronically signed by: Catrachito Cuenca M.D. 09/26/2023 9:49 AM
[2023-09-26] MEDS ORDERED: cefTRIAXone SODIUM 2,000 MG/50 ML BAG IV STA (10:09)
--- NOTE | 2023-09-26 11:33 | History & Physical Report ---
Date of Service September 26, 2023 Assessment & Plan (1) Acute right flank pain: (2) CKD (chronic kidney disease): (3) Anemia in CKD (chronic kidney disease): (4) DM (diabetes mellitus): (5) Chronic diastolic (congestive) heart failure: (6) Vitamin D deficiency: (7) Secondary hyperparathyroidism: (8) UTI (urinary tract infection): Plan: R flank pain Epigastric Pain - Admit to med surg - check C diff and stool studies as pt has hx of cdiff, will start on po vanc to cover for such, add probiotic - Concern for early phase diverticulitis--- not seen on CT abd but has sx that were similar to previous episode in December 2022. Ceftriaxone and flagyl IV. - s/p appendectomy and cholecystectomy, LFTs are stable, small nodule in the lobe of liver noted on imaging review, pt with hx of renal cyst which is being followed by nephrology and urology - afebrile, no leukocytosis, monitor - Pain control with scheduled IV Tylenol, IV Dilaudid for breakthrough pain CKD stage IV - S/p AVF creation Left antecubital cephalic vein fistula, well healed at this time - done by Dr. Pacheco in Oct, healing Hyperparathyroidism -Dr. Childress considering Sensipar, but pt is thought to be a poor candidate for parathyroidectomy due to age, frailty. Chronic diastolic CHF HTN HLD Pulmonary hypertension Moderate mitral regurg Intermittent LBBB -Continue carvedilol and spironolactone, will hold lasix with poor oral intake and avoid fluids. -Follows with SANDI Robb as outpatient, last seen on 08/21/2023 on [facility] outpatient review Hypercalcemia - Noted 10.5 on admission, was 10.2 6 months ago on outpt epic review so appears to be chronic, stable - Likely secondarily due to hyperparathyroidism and CKD Hx of recurrent UTI - UA appears infected, was started on ceftriaxone in the ER, will continue Anemia of chronic disease - Hgb of 9.4, patient did not previously tolerate iron supplementation due to constipation, she has received intravenous iron infusions at [facility] once recently DVT PPx: scds Lines: 2 PIV CODE: Full code FEN/GI: Allow clear liquid, HH/DM diet for now Dispo: From home, likely to remain in the hospital x 1-2 days History of Present Illness Chief Complaint: R flank pain, back pain Primary Care Provider: Fox Ramirez MD This is an 87-year-old female with PMHx of CKD stage IV with recent AV fistula placement by Dr. Pacheco on 09/18 in anticipation of needs for hemodialysis, HTN, HLD, chronic diastolic CHF, DM type II, chronic anemia, mild hypercalcemia, history of C. difficile, diverticulosis, Vit D deficiency, who presents to the hospital with right-sided flank pain which radiates around the front up into the epigastric region. Patient states that her pain has been constant/chronic in nature x 2 days and has not been relieved. She received a dose of Tylenol and 2 doses of Dilaudid in the ER with improvement in her pain to 7/10 at present. Pt reports a fullness in abdomen, feels bloated, with pressure. About 1 week ago she had 5 days of diarrhea and then had 2 days of what she calls constipation. Pt took a stool softener and milk of magnesia 2 nights ago to help move her bowels. She had an IV iron infusion recently and thinks this caused constipation, as she previously took oral iron but got severely constipated with taking it. She has had a poor appetite and nausea for past 2 days, is tolerating about 2 glasses of water per day and has been taking her medications as instructed. Last night she had episode where she woke up soaking wet, and feels chills today but did not take her temperature at home. She uses a walker at baseline due to chronic vertigo, and is at a fall risk. Patient is not on any form of anticoagulation for such. She lives at home with her 1 son who is not present at bedside, but another one of her sons is here and supports the history. Allergies Allergy/AdvReac Type Severity Reaction Status Date / Time morphine AdvReac Intermediate Confusion Verified 09/26/23 10:53 phenylpropanolamine AdvReac Intermediate INTOLERANCE Verified 09/26/23 10:53 spironolactone AdvReac Intermediate weakness Verified 09/26/23 10:53 Home Medications Medication Instructions Recorded Confirmed Type aspirin 81 mg tablet,delayed 81 mg PO QAM 12/30/18 09/26/23 History release rosuvastatin 10 mg tablet 10 mg PO HS 12/30/18 09/26/23 History famotidine 20 mg tablet (Pepcid) 20 mg PO QDD 11/18/19 09/26/23 History lidocaine 4 % topical patch 1 patch topical DAILY Pain 06/23/20 09/26/23 History (Salonpas (lidocaine)) diclofenac sodium 1 % topical gel 4 g topical QID PRN Pain 03/17/21 09/26/23 History cyanocobalamin (vitamin B-12) 500 500 mcg PO QAM #30 tabs 03/27/21 09/26/23 Rx mcg tablet carvedilol 25 mg tablet 25 mg PO BIDM 06/13/21 09/26/23 History hydralazine 100 mg tablet 100 mg PO TID 06/13/21 09/26/23 History Saccharomyces boulardii 250 mg 250 mg PO QAM 08/26/21 09/26/23 History capsule (Florastor) ondansetron 4 mg disintegrating 4 mg PO Q6H PRN nausea and 11/25/21 09/26/23 Rx tablet vomiting #14 tabs acetaminophen 500 mg tablet 1,000 mg PO BID 04/26/22 09/26/23 History (Tylenol Extra Strength) insulin human U-100 NPH-regulr See Rx Instructions .Route .COMPLEX 08/05/22 09/26/23 History 70-30 mix 100 unit/mL subcutaneous susp (Humulin 70/30 U-100 Insulin) isosorbide dinitrate 20 mg tablet 40 mg PO TID 08/05/22 09/26/23 History omeprazole 20 mg capsule,delayed 20 mg PO QAM 08/05/22 09/26/23 History release polyethylene glycol 3350 17 17 g PO BID PRN Constipation 12/14/22 09/26/23 History gram/dose oral powder (Miralax) furosemide 20 mg tablet 20 mg PO Q OTHER DAY #45 tabs 08/04/23 09/26/23 Rx allopurinol 100 mg tablet 200 mg PO QDL 08/23/23 09/26/23 History spironolactone 25 mg tablet 25 mg PO QAM 08/23/23 09/26/23 History docusate sodium 100 mg capsule 100 mg PO BID 09/26/23 09/26/23 History sennosides 8.6 mg tablet (Senokot) 8.6 mg PO HS PRN Constipation 09/26/23 09/26/23 History Past Med/Surg History Medical History Bladder leak Hx of basal cell carcinoma Anemia Spinal stenosis of lumbar region with radiculopathy History of COVID-19 Hx of gout Hx of left bundle branch block Hx of Clostridium difficile infection Hx of diverticulitis of colon Kidney cysts Chronic back pain History of kidney stones Diabetes mellitus, type 2 Hearing deficit Hyperlipidemia Chronic kidney disease (CKD), stage IV (severe) Nocturnal hypoxemia HTN (hypertension) CHF (congestive heart failure) Surgical History History of left cataract surgery History of right cataract surgery History of arthroscopy S/P epidural steroid injection Nausea and vomiting after administration of anesthetic agent History of dilatation and curettage History of bilateral tubal ligation History of arthroscopy of left knee History of esophagogastroduodenoscopy (EGD) History of colonoscopy History of tooth extraction History of cystoscopy History of cardiac cath Hx of appendectomy Hx of cholecystectomy H/O: hysterectomy Family History Sister Family history of diabetes mellitus Sister Family history of diabetes mellitus Brother Family history of diabetes mellitus Family history of esophageal cancer Brother Family history of esophageal cancer Father Lung cancer Other No family history of adverse response to anesthesia No significant family history Social History Smoking Status: Never smoker Second Hand Exposure: No; Do You Dip or Chew Tobacco: No; Hx Alcohol Use: No Hx Substance Use: No Preferred Language: Nigerien Communication Ability: Effective Visual Impairment: Partially 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 Beliefs That Will Affect Care: None marital status: / Current Living Situation: Family Current Living Situation Comment: lives with son How many Children do You have: 2 Feels Safe at Home: Yes Assistive Devices: Denture - Upper, Denture - Lower, Glasses, Hearing Aid - Bilateral, Oxygen - at Night and Walker Review of Systems Review of Systems: Constitutional: + subjective fever, sweats and chills Eyes: No diplopia, no worsening or blurred vision ENT: normal hearing, no trouble swallowing Respiratory: No cough, sputum, dyspnea at rest or on exertion Cardiovascular: No chest pain, tightness or palpitations Abdomen: As per HPI, + abd pain, R flank pain, nausea without vomitting, hx of both diarrhea and constipation Musculoskeletal: No joint pain, calf pain, swelling Neurologic: No weakness, numbness/tingling, + uses walker at baseline, hx of vertigo causing balance problems Psychiatric: No anxiety or depression Skin: No rash or itch Physical Exam Physical Exam: General: awake, alert, no apparent distress, shaking/rigoring at times Head: Normocephalic, atraumatic ENT: PERRL, EOMI, no pharyngeal exudate, mucous membranes moist Chest: Clear to auscultation, on room air, no adventitious breath sounds Cardiac: Regular rate and rhythm, no murmur, no JVD, normal peripheral pulses, good capillary refill Abdominal: NABS x 4 quadrants, soft, +distended, +tender to palpation in epigastric region, no CVA tenderness, + tenderness with R sided paraspinal muscles on exam is reproducible, no rebound or guarding Extremities: Normal inspection, no peripheral edema or erythema, calfs nontender to palpation Psych: Normal mood and affect Neuro: AAO x 3, strength intact bilaterally and rated 5/5, no motor deficits, speech is clear, no peripheral sensory deficits Results & Data Results & Data Vital Signs (Past 12 Hours) Vital Signs Temp Pulse Resp BP Pulse Ox O2 Del Method 09/26/23 11:00 76 13 94 09/26/23 10:30 79 17 92 09/26/23 10:12 79 22 96 09/26/23 10:12 175/68 H 09/26/23 10:00 82 25 H 94 09/26/23 09:30 79 18 95 09/26/23 09:09 88 26 H 94 09/26/23 08:35 74 09/26/23 08:34 74 18 09/26/23 08:11 36.1 C L 84 18 136/64 98 Room Air Laboratory Results 09/26/23 08:36 Urine Culture - Pending Urine,Straight Cath 09/26/23 09/26/23 08:36 08:24 WBC 8.84 RBC 2.99 L Hgb 9.4 L Hct 28.9 L MCV 96.7 MCH 31.4 MCHC 32.5 RDW Std Deviation 51.3 H RDW Coeff of Noemy 14.8 H Plt Count 275 MPV 9.4 Immature Gran % (Auto) 0.7 Neut % (Auto) 78.5 Lymph % (Auto) 10.4 Pratt % (Auto) 7.7 Eos % (Auto) 2.4 Baso % (Auto) 0.3 Neut # (Auto) 6.94 H Lymph # (Auto) 0.92 L Pratt # (Auto) 0.68 H Eos # (Auto) 0.21 Baso # (Auto) 0.03 Immature Gran # (Auto) 0.06 PT 10.4 INR 0.9 Sodium 137 Potassium 4.9 Chloride 108 H Carbon Dioxide 22 Anion Gap 7 BUN 57 H Creatinine 2.78 H Est Cr Clr Drug Dosing Not Reportable Est GFR ( Amer) 16.9 Est GFR (Non-Af Amer) 14.6 BUN/Creatinine Ratio 20.5 H Glucose 193 H Calcium 10.5 H Magnesium 1.9 Total Bilirubin 0.8 AST 11 L ALT 7 Alkaline Phosphatase 59 Troponin I High Sens 6.7 Total Protein 6.1 Albumin 4.2 Globulin 1.9 L Albumin/Globulin Ratio 2.2 H Lipase 25 Urine Color Yellow Urine Appearance Cloudy A Urine pH 5.0 Ur Specific Leming 1.011 Urine Protein 1+ H Urine Glucose (UA) Negative Urine Ketones Negative Urine Blood Negative Urine Nitrite Negative Urine Bilirubin Negative Urine Urobilinogen Negative Ur Leukocyte Esterase Trace H Urine WBC (Auto) 1-5 Urine RBC (Auto) 0-4 U Hyaline Cast (Auto) 1-5 U Epithel Cells (Auto) >30 H Urine Bacteria (Auto) 2+ H Urine Yeast Not Reportable Diagnostic Findings Abdomen/Pelvis CT 09/26/23 08:22 CT SCAN OF THE ABDOMEN AND PELVIS WITHOUT IV CONTRAST CLINICAL HISTORY: Right flank pain COMPARISON STUDY: Prior abdominal CT scans, most recently dated 01/10/2023. TECHNIQUE: CT scan of the abdomen and pelvis is performed from the lung bases to the proximal femora. Images are reviewed in the axial, sagittal, and coronal planes. IV contrast was not administered for this examination. A dose lowering technique was utilized adhering to the principles of ALARA. CT DOSE: 1301.32 mGy.cm FINDINGS: Lung bases: The heart is mildly enlarged and without pericardial effusion. The coronary arteries an mitral annulus are densely calcified. A tiny hiatal hernia is observed. There are scattered calcified granulomas. The lung bases are otherwise clear noting dependent scarring/atelectasis. Liver: The unenhanced liver is normal in size, contour, and attenuation. There is no intrahepatic biliary ductal dilatation. A 1.7 cm cyst is again seen in the left lobe. Gallbladder: Surgically absent noting clips in the gallbladder fossa. Spleen: Normal in size and attenuation. Pancreas: The unenhanced pancreas is moderately atrophic and grossly unremarkable. 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 The right adrenal gland is normal in appearance. Kidneys: The unenhanced kidneys are atrophic and without hydronephrosis. There are no renal calculi identified. A 5.9 cm complex lesion in the left renal pelvis is unchanged, as are additional bilateral simple and complex cysts. Abdominal vasculature: The abdominal aorta is normal in course and caliber noting advanced atherosclerotic calcification. Bowel: There is moderate colonic diverticulosis without clear CT evidence of acute diverticulitis. No bowel obstruction is seen. The appendix is not identified and reported surgically absent. Peritoneum: There is no intraperitoneal free air or abdominal ascites. There is a fat-containing umbilical hernia. Foci of induration within the ventral abdominal wall are likely related to subcutaneous injections. Lymphadenopathy: None. Pelvic viscera: There are small foci of gas within the bladder lumen. The bladder is otherwise normal as imaged. The uterus is surgically absent. No adnexal lesion is seen. Skeletal structures: The skeletal structures are osteopenic. There is moderate lumbosacral spondylosis. No lytic or blastic lesions are seen. IMPRESSION: 1. No acute infectious or inflammatory findings are identified in the abdomen or pelvis. 2. Colonic gas. There are CT findings of acute diverticulitis. 3. Small foci of gas within the bladder lumen a nonspecific and may be related to instrumentation. Correlate with clinical findings and urinalysis. 4. Additional findings as above. ACT 112: Negative or not required by law. Electronically signed by: Marco Morocho M.D. 09/26/2023 9:47 AM Chest X-Ray 09/26/23 08:23 XR chest 1V portable HISTORY: Atypical chest pain. COMPARISON: Chest 01/04/2023. FINDINGS: No pneumothorax. No pleural effusions. The heart remains enlarged. There is mild central pulmonary vascular congestion without overt edema. No focal lung consolidations to suggest a pneumonia. No acute fractures identified. IMPRESSION: Cardiomegaly and mild central pulmonary vascular congestion without overt edema. ACT 112: Negative or not required by law. Electronically signed by: Catrachito Cuenca M.D. 09/26/2023 9:49 AM ECG Additional Comments: 26-SEP-2023 08:19:12 [facility]-EDSTAT ROUTINE RETRIEVAL Normal sinus rhythm Normal ECG When compared with ECG of 03-JAN-2023 23:54, No significant change was found 25mm/s10mm/[id number] 243CID: 20Unconfirmed Vent. rate 73 BPM NJ interval 192 ms QRS duration 100 ms QT/QTc 394/434 ms Code Status & VTE Plan Code Status Full code Supervising Physician Co-Signing Physician Notes Patient is an 87-year-old female with history of CKD stage IV, diabetes mellitus, history of recurrent C. difficile, recurrent urinary tract infections, nocturnal hypoxia, paroxysmal A-fib, diastolic heart failure, left bundle branch block Medical problems presents with history of right flank pain radiating to epigastric, generalized abdominal pain since 2 days duration. Reports associated nausea, poor sleep, poor appetite and chronic dizziness. Also admits to have diarrhea intermittently for the last 2 to 3 days. Subjectively feels that she is constipated. Denies any blood in stools, melena. Patient denies any dysuria, hematuria, fever. Please review HPI for complete details of presentation. Blood work suggestive of chronic anemia hemoglobin 9.4, hematocrit 28.9, normal platelet count, CKD creatinine 2.7, BUN 57, glucose 193, calcium 10.5, normal LFTs. Abnormal urinalysis showed trace leukocyte Estrace, 2+ bacteria, high bili ulcers. Chest x-ray showed cardiomegaly with mild pulmonary vascular congestion.CT abdomen showed no acute infectious or inflammatory findings in the abdomen pelvis. Noted colonic diverticulosis without evidence of acute diverticulitis. Small foci of gas within the bladder lumen nonspecific may be related to instrumentation. Physical Exam: Vitals signs as noted above General Appearance:Obese, Elderly, no apparent distress Head: normocephalic, Atraumatic Eyes: normal inspection, EOMI Neck: supple, Trachea midline Respiratory/Chest: Normal breath sounds, CTA, No accessory muscle use Cardiovascular: S1, S2, No murmur Back: Right parathoracic/flank mild tender Abdomen/GI:Soft, generalized mild tenderness, no guarding or rigidity,, Bowel sounds present Extremities/Musculoskeletal:normal inspection, 1+ B/L LE edema Neurologic/Psych:AAOX3, grossly no focal neurological deficits Skin: normal color, warm Abdominal/flank pain DD: Secondary to C. difficile colitis, UTI, diverticulitis CT abdomen noncontributory Check stool studies Empirically started on Rocephin, Flagyl We will discontinue p.o. vancomycin if stool negative for C. difficile Monitor volume status Pain control Further management based on culture, stool studies Advance diet as tolerated Follow-up rib x-ray Bilateral renal cysts Concern for malignancy Follows with urology Given advanced age, patient preferred no further testing/treatment CKD IV Avoid nephrotoxic agents Renal function at baseline Monitor I personally reviewed the record. Patient is interviewed and examined at bedside. Patient's care is coordinated with Brunilda Rodriguez PA-C. Please refer to the documentation above for details of patient's presentation and for discussion of other issues.
[2023-09-26] MEDS ORDERED: SACCHAROMYCES BOULARDII 250 MG CAP PO SCH (13:00)
[2023-09-26] MEDS ORDERED: DICLOFENAC SOD 1% GEL 100 GM TUBE EXT PRN (13:06)
[2023-09-26] MEDS ORDERED: SENNA 8.6 MG TAB PO PRN (13:06)
[2023-09-26] MEDS ORDERED: POLYETHYLENE (MIRALAX) 17 GM PACK PO PRN (13:06)
[2023-09-26] MEDS ORDERED: ONDANSETRON 4 MG OD TAB PO PRN (13:06)
[2023-09-26] MEDS ORDERED: LIDOCAINE 5% 1 PATCH TD STA (13:33)
--- NOTE | 2023-09-26 13:54 | Electrocardiogram Report ---
Test Reason : Blood Pressure : / mmHG Vent. Rate : 073 BPM Atrial Rate : 073 BPM P-R Int : 192 ms QRS Dur : 100 ms QT Int : 394 ms P-R-T Axes : 037 -08 024 degrees QTc Int : 434 ms Normal sinus rhythm Normal ECG When compared with ECG of 03-JAN-2023 23:54, No significant change was found Confirmed by Franco Villagran ([id number]) on 09/26/2023 1:54:23 PM Referred By: Confirmed By:Franco Villagran
[2023-09-26] MEDS: metroNIDAZOLE 500 MG/100 ML BAG IV SCH ×2 (14:44→20:26)
[2023-09-26] MEDS ORDERED: GLUCOSE 40% GEL 15 GM TUBE PO PRN (14:45)
[2023-09-26] MEDS ORDERED: GLUCAGON FOR INJ 1 MG VIAL SQ PRN (14:45)
[2023-09-26] MEDS ORDERED: GLUCOSE 10 TAB/TUBE PO PRN (14:45)
[2023-09-26] MEDS ORDERED: ACETAMINOPHEN 325 MG TAB PO PRN ×2 (14:45→22:58)
[2023-09-26] MEDS ORDERED: CARBOHYDRATES FOR HYPOGLYCEMIA PO PRN (14:45)
[2023-09-26] MEDS ORDERED: DEXTROSE 50% 50 ML SYRINGE IV PRN (14:45)
--- NOTE | 2023-09-26 14:46 | XRay Report ---
XR ribs RT min 2V CLINICAL HISTORY: Eval R flank/rib pain COMPARISON STUDY: Chest 09/26/2023. FINDINGS: There are old, healed right lower rib fractures. No acute rib fractures identified. No righ t-sided pneumothorax. The right lung appears clear. The heart is enlarged. Prior cholecystectomy. IMPRESSION: No acute right-sided rib fractures. ACT 112: Negative or not required by law. Electronically signed by: Catrachito Cuenca M.D. 09/26/2023 2:44 PM
[2023-09-26] MEDS ORDERED: ADVANCED PROBIOTIC 1250 MG CAPSULE PO STA (15:06)
[2023-09-26] MEDS ORDERED: ACETAMINOPHEN 1,000 MG/100 ML VIAL IV SCH (16:00)
[2023-09-26] MEDS: hydrALAZINE TAB 50 MG TAB PO SCH ×2 (16:19→20:26)
[2023-09-26] MEDS: FAMOTIDINE 20 MG TAB PO SCH (17:39)
[2023-09-26] MEDS: INSULIN ASPART PER UNIT CHARGE SC SCH ×2 (17:48→20:14)
[2023-09-26] MEDS: ISOSORBIDE DINITRATE 40 MG TAB PO SCH (18:39)
[2023-09-26] MEDS: carvediloL 25 MG TAB PO SCH (18:39)
[2023-09-26] MEDS: VANCOMYCIN HCL 125 MG/2.5ML SOLN PO SCH ×2 (18:40→23:40)
[2023-09-26] MEDS: CHERRY SYRUP 5 ML UDP PO SCH ×2 (18:40→23:40)
[2023-09-26] MEDS: DOCUSATE SODIUM 100 MG CAP PO SCH (20:26)
[2023-09-26] MEDS: ROSUVASTATIN CALCIUM 10 MG TAB PO SCH (20:26)
[2023-09-26] MEDS: LANTUS PER UNIT CHARGE SQ SCH (20:26)
[2023-09-26] MEDS: HEPARIN SOD 5,000 UNIT/0.5 ML VIAL SQ SCH (20:26)
[2023-09-26] MEDS ORDERED: ACETAMINOPHEN 500 MG TAB PO SCH (21:00)
[2023-09-26] MEDS: ACETAMINOPHEN 325 MG TAB PO SCH (23:39)
[2023-09-27] MEDS: CHERRY SYRUP 5 ML UDP PO SCH ×4 (05:51→23:34)
[2023-09-27] MEDS: VANCOMYCIN HCL 125 MG/2.5ML SOLN PO SCH ×4 (05:52→23:34)
[2023-09-27] MEDS: ISOSORBIDE DINITRATE 40 MG TAB PO SCH ×3 (05:52→17:21)
[2023-09-27] MEDS: metroNIDAZOLE 500 MG/100 ML BAG IV SCH ×3 (05:52→20:53)
[2023-09-27 07:44] LABS: Hematocrit (blood only) 25.9 % (37.0-47.0); Hemoglobin 8.4 g/dl (12.0-16.0); Mean Corpuscular Hemoglobin 31.1 pg (25.0-34.0); Mean Corpuscular Hgb Conc 32.4 g/dL (32.0-36.0); Mean Corpuscular Volume 95.9 fL (80.0-100.0); Mean Platelet Volume 9.5 fL (9.4-12.4); Platelet Count 270 K/uL (130-400); RDW Coefficient of Variation 14.7 % (11.5-14.5); RDW Standard Deviation 51.4 fL (36.4-46.3); White Blood Count 9.18 K/ul (4.8-10.8)
[2023-09-27 08:22] LABS: Albumin Level 3.8 gm/dl (3.4-5.0); Bilirubin Direct 0.1 mg/dl (0-0.2); Bilirubin,Total 0.7 mg/dl (0.2-1.0); Calcium 9.9 mg/dl (8.6-10.3); Creatinine Clr Calc Pharmacy 14.9 ml/min; Est GFR (African American) 15.4 ml/min; Est GFR (Non-African American) 13.3 ml/min; Magnesium 1.8 mg/dl (1.7-2.4); Potassium 4.6 mmol/L (3.5-5.1); Total Protein 5.7 gm/dl (6.0-8.3)
[2023-09-27] MEDS ORDERED: CYANOCOBALAMIN (B-12) 500 MCG TABLET PO SCH (09:00)
[2023-09-27] MEDS: carvediloL 25 MG TAB PO SCH ×2 (09:29→17:21)
[2023-09-27] MEDS: ACETAMINOPHEN 325 MG TAB PO SCH ×3 (09:29→20:52)
[2023-09-27] MEDS: ADVANCED PROBIOTIC 1250 MG CAPSULE PO SCH (09:30)
[2023-09-27] MEDS: DOCUSATE SODIUM 100 MG CAP PO SCH ×2 (09:30→20:39)
[2023-09-27] MEDS: ASPIRIN 81 MG ECTAB PO SCH (09:30)
[2023-09-27] MEDS: hydrALAZINE TAB 50 MG TAB PO SCH ×3 (09:30→20:52)
[2023-09-27] MEDS: LIDOCAINE 5% 1 PATCH TD SCH (09:31)
[2023-09-27] MEDS: SACCHAROMYCES BOULARDII 250 MG CAP PO SCH (09:31)
[2023-09-27] MEDS: PANTOprazole 40 MG TAB PO SCH (09:31)
[2023-09-27] MEDS: SPIRONOLACTONE 25 MG TAB PO SCH (09:31)
[2023-09-27] MEDS: INSULIN ASPART PER UNIT CHARGE SC SCH ×4 (09:45→20:51)
[2023-09-27] MEDS: LANTUS PER UNIT CHARGE SQ SCH ×2 (09:45→20:52)
[2023-09-27] MEDS: cefTRIAXone SODIUM 1,000 MG in DEXTROSE 5 % MINI-B 50 ML IV SCH (10:21)
[2023-09-27] MEDS: HEPARIN SOD 5,000 UNIT/0.5 ML VIAL SQ SCH ×2 (10:30→20:52)
[2023-09-27] MEDS ORDERED: MAGNESIUM HYDROXIDE SUSP 30 ML UDC PO PRN (11:33)
--- NOTE | 2023-09-27 12:42 | XRay Report ---
KUB HISTORY: Generalized abdominal pain. COMPARISON: Abdomen and pelvis CT 09/26/2023. FINDINGS: The bowel gas pattern is unremarkable. There are no dilated loops of small bowel to suggest an obstruction. No renal calculi. No ureteral calculi. No pneumoperitoneum or pneumatosis. Prior ch olecystectomy. The lung bases are clear. Vascular calcifications are noted. IMPRESSION: Nonobstructive bowel gas pattern. ACT 112: Negative or not required by law. Electronically signed by: Catrachito Cuenca M.D. 09/27/2023 12:40 PM
[2023-09-27] MEDS: allopurinoL 100 MG TAB PO SCH (12:55)
[2023-09-27] MEDS: POLYETHYLENE (MIRALAX) 17 GM PACK PO SCH (12:55)
--- NOTE | 2023-09-27 13:14 | Gastrointestinal Consultation ---
Date of Consultation September 27, 2023 Assessment & Plan (1) Acute right flank pain: (2) Acute right flank pain: (3) C. difficile colitis: Plan This is an 87 y/o female with h/o diverticulitis, C. diff, pt preferred no F/u colonoscopy after bout of diverticulitis in December 2022. Now admitted w/ abd pain, and though Ct w/o diverticulitis, pt placed on empiric ABX to cover such; also vanco to cover C diff. UA also junky and she may have a UTI, ? gas in the bladder lumen. - Agree with Empiric ABx - for UTI/bowel infxn but also vanc to cover h/o C diff - If pt has diarrhea would send stool for C diff and also GI pathogen panel - Mesenteric duplex ordered - Supportive care with IVF - Analgesia PRN - Typically would recommend f/u colonoscopy given h/o diverticulitis however pt states she would not want to do this at her age and this is a reasonable approach Thank you for allowing us to participate in the care of this patient. Please call with any acute changes, questions or concerns. Please see addendum below with additional recommendation from my supervising physician. Supervising Physician Co-Signing Physician Notes Left sided abdominal pain - prior episode of diverticulitis. Mild left sided ttp. Agree with further plan of care as documented. History of Present Illness Reason for Consultation: Abdominal Pain Requesting Physician: Dr. Dave Attending Physician: Fuentes Dave MD History of Present Illness Pt is a 87 yo female w PMHx of chronic HF, LBBB, CKD 3-4, HTN, Afib, DM II, chronic anemia, renal mass, recurrent UTIs, Cdiff infection, diverticulitis. Last bout of diverticulitis was 12/2022; pt preferred no colonoscopy follow-up. Last colonoscopy was in 2005. Recently had AV fistula created for anticipation of dialysis. She is now admitted w/ abd pain, altered bowel habits, nausea, poor appetite, for several days. UA appears infected. CTAP nonacute but it does not gas in the bladder. D/t h/o diverticulitis and suspicion for such, started on empiric ABX, also PO vanc to cover h/o C diff. Pt afebrile, no leuks, stable Anemia. Mesenteric duplex also ordered. Pt states she feels better than when she was initially brought in. Has had some altered BMs - sometimes loose, sometimes constipated; last BM was Monday. has tried Senna, Colace, Miralax, MoM for the constipation. No melena, hematochezia but noticed "white slime" one time. No vomiting, hematemesis, fever. Notices chills at night but it might her blood sugar she thinks. Allergies Allergy/AdvReac Type Severity Reaction Status Date / Time morphine AdvReac Intermediate Confusion Verified 09/26/23 10:53 phenylpropanolamine AdvReac Intermediate INTOLERANCE Verified 09/26/23 10:53 spironolactone AdvReac Intermediate weakness Verified 09/26/23 10:53 Home Medications Medication Instructions Recorded Confirmed Type aspirin 81 mg tablet,delayed 81 mg PO QAM 12/30/18 09/26/23 History release rosuvastatin 10 mg tablet 10 mg PO HS 12/30/18 09/26/23 History famotidine 20 mg tablet (Pepcid) 20 mg PO QDD 11/18/19 09/26/23 History lidocaine 4 % topical patch 1 patch topical DAILY Pain 06/23/20 09/26/23 History (Salonpas (lidocaine)) diclofenac sodium 1 % topical gel 4 g topical QID PRN Pain 03/17/21 09/26/23 History cyanocobalamin (vitamin B-12) 500 500 mcg PO QAM #30 tabs 03/27/21 09/26/23 Rx mcg tablet carvedilol 25 mg tablet 25 mg PO BIDM 06/13/21 09/26/23 History hydralazine 100 mg tablet 100 mg PO TID 06/13/21 09/26/23 History Saccharomyces boulardii 250 mg 250 mg PO QAM 08/26/21 09/26/23 History capsule (Florastor) ondansetron 4 mg disintegrating 4 mg PO Q6H PRN nausea and 11/25/21 09/26/23 Rx tablet vomiting #14 tabs acetaminophen 500 mg tablet 1,000 mg PO BID 04/26/22 09/26/23 History (Tylenol Extra Strength) insulin human U-100 NPH-regulr See Rx Instructions .Route .COMPLEX 08/05/22 09/26/23 History 70-30 mix 100 unit/mL subcutaneous susp (Humulin 70/30 U-100 Insulin) isosorbide dinitrate 20 mg tablet 40 mg PO TID 08/05/22 09/26/23 History omeprazole 20 mg capsule,delayed 20 mg PO QAM 08/05/22 09/26/23 History release polyethylene glycol 3350 17 17 g PO BID PRN Constipation 12/14/22 09/26/23 History gram/dose oral powder (Miralax) furosemide 20 mg tablet 20 mg PO Q OTHER DAY #45 tabs 08/04/23 09/26/23 Rx allopurinol 100 mg tablet 200 mg PO QDL 08/23/23 09/26/23 History spironolactone 25 mg tablet 25 mg PO QAM 08/23/23 09/26/23 History docusate sodium 100 mg capsule 100 mg PO BID 09/26/23 09/26/23 History sennosides 8.6 mg tablet (Senokot) 8.6 mg PO HS PRN Constipation 09/26/23 09/26/23 History Patient History Medical History Bladder leak Hx of basal cell carcinoma Anemia Spinal stenosis of lumbar region with radiculopathy History of COVID-19 Hx of gout Hx of left bundle branch block Hx of Clostridium difficile infection Hx of diverticulitis of colon Kidney cysts Chronic back pain History of kidney stones Diabetes mellitus, type 2 Hearing deficit Hyperlipidemia Chronic kidney disease (CKD), stage IV (severe) Nocturnal hypoxemia HTN (hypertension) CHF (congestive heart failure) Surgical History History of left cataract surgery History of right cataract surgery History of arthroscopy S/P epidural steroid injection Nausea and vomiting after administration of anesthetic agent History of dilatation and curettage History of bilateral tubal ligation History of arthroscopy of left knee History of esophagogastroduodenoscopy (EGD) History of colonoscopy History of tooth extraction History of cystoscopy History of cardiac cath Hx of appendectomy Hx of cholecystectomy H/O: hysterectomy Family History Sister Family history of diabetes mellitus Sister Family history of diabetes mellitus Brother Family history of diabetes mellitus Family history of esophageal cancer Brother Family history of esophageal cancer Father Lung cancer Other No family history of adverse response to anesthesia No significant family history Social History Smoking Status: Never smoker Second Hand Exposure: No; Do You Dip or Chew Tobacco: No; Hx Alcohol Use: No Hx Substance Use: No Preferred Language: [place] Communication Ability: Effective Visual Impairment: Partially Limited Decorating Inspector Required: No Beliefs That Will Affect Care: None marital status: / Current Living Situation: Family Current Living Situation Comment: lives with son How many Children do You have: 2 Feels Safe at Home: Yes Assistive Devices: Cane, Raised Toilet Seat and Walker Assistive Devices Comment: walker Review of Systems Review of Systems: All systems reviewed & are unremarkable except as noted in HPI & below Physical Exam Constitutional: well developed, well nourished and comfortable; no acute distress Eyes: Sclera anicteric, no conjunctival injection ENMT: moist mucous membranes, no pallor Neck: trachea midline supple Respiratory: normal respiratory effort, lungs clear to auscultation Cardiovascular: RRR, no murmur, no edema Gastrointestinal (Abdomen): Inspection/Auscultation: abdomen not distended Mild TTP RLQ and R flank; no rebound, guarding, Bs x 4 quads Skin: no rashes, warm and dry Neurologic: alert and oriented x 3, no obvious focal neuro deficit Psychiatric: normal mood and affect Results & Data Vital Signs (Past 12 Hours) Vital Signs Temp Pulse Resp BP Pulse Ox O2 Del Method O2 Flow Rate 09/27/23 07:30 Room Air, Nasal Cannula 2 09/27/23 07:29 36.5 C 78 18 155/73 H 95 Room Air Laboratory Results 09/27/23 09/27/23 09/27/23 Range/Units 11:59 07:49 07:06 WBC 9.18 (4.8-10.8) K/ul RBC 2.70 L (4.20-5.40) M/uL Hgb 8.4 L (12.0-16.0) g/dl Hct 25.9 L (37.0-47.0) % MCV 95.9 (80.0-100.0) fL MCH 31.1 (25.0-34.0) pg MCHC 32.4 (32.0-36.0) g/dL RDW Std Deviation 51.4 H (36.4-46.3) fL RDW Coeff of Noemy 14.7 H (11.5-14.5) % Plt Count 270 (130-400) K/uL MPV 9.5 (9.4-12.4) fL Sodium 137 (136-145) mmol/L Potassium 4.6 (3.5-5.1) mmol/L Chloride 107 (98-107) mmol/L Carbon Dioxide 22 (21-32) mmol/L Anion Gap 8 (3-11) BUN 57 H (6-23) mg/dl Creatinine 3.00 H (0.6-1.2) mg/dl Est Cr Clr Drug Dosing 14.9 ml/min Est GFR ( Amer) 15.4 ml/min Est GFR (Non-Af Amer) 13.3 ml/min BUN/Creatinine Ratio 19.0 (10-20) Glucose 165 H (70-99(Fasting)) mg/dl POC Glucose 178 H 171 H (70-99) mg/dl Calcium 9.9 (8.6-10.3) mg/dl Magnesium 1.8 (1.7-2.4) mg/dl Total Bilirubin 0.7 (0.2-1.0) mg/dl Direct Bilirubin 0.1 (0-0.2) mg/dl AST 9 L (13-39) U/L ALT 6 L (7-52) U/L Alkaline Phosphatase 55 (34-104) U/L Total Protein 5.7 L (6.0-8.3) gm/dl Albumin 3.8 (3.4-5.0) gm/dl 09/26/23 09/26/23 Range/Units 19:59 17:09 WBC (4.8-10.8) K/ul RBC (4.20-5.40) M/uL Hgb (12.0-16.0) g/dl Hct (37.0-47.0) % MCV (80.0-100.0) fL MCH (25.0-34.0) pg MCHC (32.0-36.0) g/dL RDW Std Deviation (36.4-46.3) fL RDW Coeff of Noemy (11.5-14.5) % Plt Count (130-400) K/uL MPV (9.4-12.4) fL Sodium (136-145) mmol/L Potassium (3.5-5.1) mmol/L Chloride (98-107) mmol/L Carbon Dioxide (21-32) mmol/L Anion Gap (3-11) BUN (6-23) mg/dl Creatinine (0.6-1.2) mg/dl Est Cr Clr Drug Dosing ml/min Est GFR ( Amer) ml/min Est GFR (Non-Af Amer) ml/min BUN/Creatinine Ratio (10-20) Glucose (70-99(Fasting)) mg/dl POC Glucose 209 H 139 H (70-99) mg/dl Calcium (8.6-10.3) mg/dl Magnesium (1.7-2.4) mg/dl Total Bilirubin (0.2-1.0) mg/dl Direct Bilirubin (0-0.2) mg/dl AST (13-39) U/L ALT (7-52) U/L Alkaline Phosphatase (34-104) U/L Total Protein (6.0-8.3) gm/dl Albumin (3.4-5.0) gm/dl Diagnostic Findings CTAP: IMPRESSION: 1. No acute infectious or inflammatory findings are identified in the abdomen or pelvis. 2. Colonic diverticulosis with no clear CT evidence of acute diverticulitis. 3. Small foci of gas within the bladder lumen a nonspecific and may be related to instrumentation. Correlate with clinical findings and urinalysis. 4. Additional findings as above. Electronically signed by: Marco Morocho M.D. 09/26/2023 9:[address] SCAN OF THE ABDOMEN AND PELVIS WITHOUT IV CONTRAST CLINICAL HISTORY: Right flank pain COMPARISON STUDY: Prior abdominal CT scans, most recently dated 01/10/2023. TECHNIQUE: CT scan of the abdomen and pelvis is performed from the lung bases to the proximal femora. Images are reviewed in the axial, sagittal, and coronal planes. IV contrast was not administered for this examination. A dose lowering technique was utilized adhering to the principles of ALARA. CT DOSE: 1301.32 mGy.cm FINDINGS: Lung bases: The heart is mildly enlarged and without pericardial effusion. The coronary arteries an mitral annulus are densely calcified. A tiny hiatal hernia is observed. There are scattered calcified granulomas. The lung bases are otherw ise clear noting dependent scarring/atelectasis. Liver: The unenhanced liver is normal in size, contour, and attenuation. There is no intrahepatic biliary ductal dilatation. A 1.7 cm cyst is again seen in the left lobe. Gallbladder: Surgically absent noting clips in the gallbladder fossa. Spleen: Normal in size and attenuation. Pancreas: The unenhanced pancreas is moderately atrophic and grossly unremarkable. 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 The right adrenal gland is normal in appearance. Kidneys: The unenhanced kidneys are atrophic and without hydronephrosis. There are no renal calculi identified. A 5.9 cm complex lesion in the left renal pelvis is unchanged, as are additional bilateral simple and complex cysts. Abdominal vasculature: The abdominal aorta is normal in course and caliber noting advanced atherosclerotic calcification. Bowel: There is moderate colonic diverticulosis without clear CT evidence of acute diverticulitis. No bowel obstruction is seen. The appendix is not identified and reported surgically absent. Peritoneum: There is no intraperitoneal free air or abdominal ascites. There is a fat-containing umbilical hernia. Foci of induration within the ventral abdominal wall are likely related to subcutaneous injections. Lymphadenopathy: None. Pelvic viscera: There are small foci of gas within the bladder lumen. The bladder is otherwise normal as imaged. The uterus is surgically absent. No adnexal lesion is seen. Skeletal structures: The skeletal structures are osteopenic. There is moderate lumbosacral spondylosis. No lytic or blastic lesions are seen. IMPRESSION: 1. No acute infectious or inflammatory findings are identified in the abdomen or pelvis. 2. Colonic gas. There are CT findings of acute diverticulitis. 3. Small foci of gas within the bladder lumen a nonspecific and may be related to instrumentation. Correlate with clinical findings and urinalysis. 4. Additional findings as above. CXR: FINDINGS: No pneumothorax. No pleural effusions. The heart remains enlarged. There is mild central pulmonary vascular congestion without overt edema. No focal lung consolidations to suggest a pneumonia. No acute fractures identified. IMPRESSION: Cardiomegaly and mild central pulmonary vascular congestion without overt edema. KUB: FINDINGS: The bowel gas pattern is unremarkable. There are no dilated loops of small bowel to suggest an obstruction. No renal calculi. No ureteral calculi. No pneumoperitoneum or pneumatosis. Prior cholecystectomy. The lung bases are clear. Vascular calcifications are noted. IMPRESSION: Nonobstructive bowel gas pattern.
[2023-09-27 16:10] LABS: Adenovirus F 40/41 PCR Not Detected (NotDetected); Astrovirus PCR Not Detected (NotDetected); Campylobacter PCR Not Detected (NotDetected); Cryptosporidium PCR Not Detected (NotDetected); Cyclospora cayetanensis PCR Not Detected (NotDetected); Entamoeba histolytica PCR Not Detected (NotDetected); Enteroaggregative E.coli(EAEC) Not Detected (NotDetected); Enteropathogenic E.coli (EPEC) Not Detected (NotDetected); Enterotoxigenic E.coli (ETEC) Not Detected (NotDetected); Giardia lamblia PCR Not Detected (NotDetected); Norovirus GI/GII PCR Not Detected (NotDetected); Plesiomonas shigelloides PCR Not Detected (NotDetected); Rotavirus A PCR Not Detected (NotDetected); Salmonella PCR Not Detected (NotDetected); Sapovirus PCR Not Detected (NotDetected); Shiga-like Toxin E.coli (STEC) Not Detected (NotDetected); Shigella/Enteroinvasive E.coli Not Detected (NotDetected); Vibrio cholerae PCR Not Detected (NotDetected); Vibrio species PCR Not Detected (NotDetected); Yersinia enterocolitica PCR Not Detected (NotDetected)
[2023-09-27 16:32] LABS: Cdiff Toxin B Gene (2yr or >) Positive Cdiff Gene (Neg)
[2023-09-27 16:33] LABS: Cdiff Antigen Negative; Cdiff Toxin A+B Negative Cdiff Toxin (Negative)
--- NOTE | 2023-09-27 16:38 | Hospitalist Progress Note ---
Date of Service September 27, 2023 Assessment & Plan (1) Acute right flank pain: (2) CKD (chronic kidney disease): (3) Anemia in CKD (chronic kidney disease): (4) DM (diabetes mellitus): (5) Chronic diastolic (congestive) heart failure: (6) Vitamin D deficiency: (7) Secondary hyperparathyroidism: (8) UTI (urinary tract infection): Plan: Abdominal/flank pain DD: Secondary to C. difficile colitis, UTI, diverticulitis --CT Abd:No acute infectious or inflammatory findings are identified in the abdomen or pelvis. Colonic diverticulosis with no clear CT evidence of acute diverticulitis. Small foci of gas within the bladder lumen a nonspecific and may be related to instrumentation. Correlate with clinical findings and urinalysis. --R Rib X ray:No acute right-sided rib fractures. --Stool PCR negative --Stool for C. difficile pending --Mesenteric ultrasound pending Empirically started on Rocephin, Flagyl Continue p.o. vancomycin for now Monitor volume status Pain control Advance diet as tolerated Appreciate GI input Will need colonoscopy eventually Bilateral renal cysts Concern for malignancy Follows with urology Given advanced age, patient preferred no further testing/treatment CKD IV S/p AVF creation Left antecubital cephalic vein fistula Currently not on dialysis i Avoid nephrotoxic agents Renal function at baseline Monitor Hyperparathyroidism Hypercalcemia Secondary to above -Dr. Childress considering Sensipar, but pt is thought to be a poor candidate for parathyroidectomy due to age, frailty. Monitor calcium levels Chronic diastolic CHF HTN HLD Pulmonary hypertension Moderate mitral regurgitation Intermittent LBBB Continue carvedilol and spironolactone Resume Lasix as above Monitor volume status H/O Recurrent UTI Urine culture not contributory Anemia of chronic disease - Hgb of 9.4, patient did not previously tolerate iron supplementation due to constipation, she has received intravenous iron infusions at [facility] once recently Monitor CBC DVT Px: SCDs Heparin SQ CODE STATUS: Full code Admission and Anticipated Discharge Date Admission Date: September 26, 2023 Subjective Patient is seen and examined at bedside Abdominal pain slightly better but still persistent Reports constipation Also reports mild abdominal distention which she attributes to gas Denies any nausea, vomiting, chest pain, dyspnea KUB today showed no signs of obstruction Review of Systems Review of Systems: All systems reviewed & are unremarkable except as noted in Subjective Physical Exam Physical Exam: Physical Exam: Vitals signs as noted above General Appearance:Obese, Elderly, no apparent distress Head: normocephalic, Atraumatic Eyes: normal inspection, EOMI Neck: supple, Trachea midline Respiratory/Chest: Normal breath sounds, CTA, No accessory muscle use Cardiovascular: S1, S2, No murmur Back: Right thoracic/flank mild tender Abdomen/GI:Soft, generalized mild tenderness, no guarding or rigidity,, Bowel sounds present Extremities/Musculoskeletal:normal inspection, 1+ B/L LE edema Neurologic/Psych:AAOX3, grossly no focal neurological deficits Skin: normal color, warm Results & Data Results & Data Vital Signs (Past 12 Hours) Vital Signs Temp Pulse Resp BP Pulse Ox O2 Del Method O2 Flow Rate 09/27/23 14:05 36.4 C L 78 16 137/69 97 Room Air 09/27/23 07:30 Room Air, Nasal Cannula 2 09/27/23 07:29 36.5 C 78 18 155/73 H 95 Room Air Laboratory Results Short CBC 09/27/23 Range/Units 07:06 WBC 9.18 (4.8-10.8) K/ul Hgb 8.4 L (12.0-16.0) g/dl Hct 25.9 L (37.0-47.0) % Plt Count 270 (130-400) K/uL BMP 09/27/23 07:06 Sodium 137 Potassium 4.6 Chloride 107 Carbon Dioxide 22 BUN 57 H Creatinine 3.00 H Glucose 165 H Calcium 9.9 Liver Function 09/27/23 Range/Units 07:06 Total Bilirubin 0.7 (0.2-1.0) mg/dl Direct Bilirubin 0.1 (0-0.2) mg/dl AST 9 L (13-39) U/L ALT 6 L (7-52) U/L Alkaline Phosphatase 55 (34-104) U/L Albumin 3.8 (3.4-5.0) gm/dl
[2023-09-27] MEDS ORDERED: Nursing to Pharmacy Communication SCH ×2 (16:45→19:00)
[2023-09-27] MEDS: FAMOTIDINE 20 MG TAB PO SCH (17:20)
[2023-09-27] MEDS ORDERED: INSULIN ASPART PER UNIT CHARGE SC SCH (18:00)
[2023-09-27] MEDS ORDERED: MECLIZINE HCL 25 MG TAB PO STA (18:14)
--- NOTE | 2023-09-27 19:08 | Ultrasound Report ---
US duplex mesenteric CLINICAL HISTORY: Generalized abdominal pain. Assess for arterial stenosis. COMPARISON STUDY: Abdomen and pelvis CT 09/26/2023 FINDINGS: The patient stopped velocity within the abdominal aorta is 120 cm/s. The visualized celiac, superior mesenteric, hepatic, splenic arteries appear patent. No elevated velocities to suggest hemo dynamically significant stenosis. The inferior mesenteric artery was obscured by overlying bowel gas. IMPRESSION: No significant stenosis within the visualized abdominal vessels. ACT 112: Negative or not required by law. Electronically signed by: Catrachito Cuenca M.D. 09/27/2023 7:07 PM
[2023-09-27] MEDS: ROSUVASTATIN CALCIUM 10 MG TAB PO SCH (20:52)
[2023-09-28] MEDS: metroNIDAZOLE 500 MG/100 ML BAG IV SCH ×3 (06:15→21:15)
[2023-09-28] MEDS: ISOSORBIDE DINITRATE 40 MG TAB PO SCH ×3 (06:15→20:01)
[2023-09-28] MEDS: VANCOMYCIN HCL 125 MG/2.5ML SOLN PO SCH ×4 (06:15→23:58)
[2023-09-28] MEDS: CHERRY SYRUP 5 ML UDP PO SCH ×4 (06:15→23:58)
[2023-09-28 07:58] LABS: Hematocrit (blood only) 25.7 % (37.0-47.0); Hemoglobin 8.3 g/dl (12.0-16.0); Mean Corpuscular Hemoglobin 31.3 pg (25.0-34.0); Mean Corpuscular Hgb Conc 32.3 g/dL (32.0-36.0); Mean Platelet Volume 9.2 fL (9.4-12.4); Platelet Count 234 K/uL (130-400); RDW Coefficient of Variation 14.7 % (11.5-14.5); RDW Standard Deviation 51.8 fL (36.4-46.3); Red Blood Count 2.65 M/uL (4.20-5.40); White Blood Count 7.99 K/ul (4.8-10.8)
[2023-09-28 08:14] LABS: BUN Creatinine Ratio 18.2 (10-20); Calcium 9.9 mg/dl (8.6-10.3); Creatinine Clr Calc Pharmacy 14.3 ml/min; Est GFR (African American) 14.7 ml/min; Est GFR (Non-African American) 12.7 ml/min; Magnesium 1.8 mg/dl (1.7-2.4); Potassium 4.6 mmol/L (3.5-5.1)
[2023-09-28] MEDS: LANTUS PER UNIT CHARGE SQ SCH ×2 (08:44→21:13)
[2023-09-28] MEDS: INSULIN ASPART PER UNIT CHARGE SC SCH ×4 (08:45→20:02)
--- NOTE | 2023-09-28 09:14 | Gastroenterology Progress Note ---
Date of Service September 28, 2023 Assessment & Plan (1) Acute right flank pain: (2) C. difficile colitis: Plan This is an 87 y/o female with h/o diverticulitis, C. diff, pt preferred no F/u colonoscopy after bout of diverticulitis in December 2022. Now admitted w/ abd pain, and though Ct w/o diverticulitis, pt placed on empiric ABX to cover such; also vanco to cover C diff. UA also junky and she may have a UTI, ? gas in the bladder lumen. Today abd feels better but having pain under her right shoulder blade of unclear etiology. C diff testing neg. - Agree with Empiric ABx - for UTI/bowel infxn but also vanc to cover h/o C diff - Supportive care with IVF - Analgesia PRN - Typically would recommend f/u colonoscopy given h/o diverticulitis however pt states she would not want to do this at her age and this is a reasonable approach - Given her discomfort location - consider advanced chest imaging - GI will sign off, please call with questions Thank you for allowing us to participate in the care of this patient. Please call with any acute changes, questions or concerns. Please see addendum below with additional recommendation from my supervising physician. Admission and Anticipated Discharge Date Admission Date: September 26, 2023 Supervising Physician Co-Signing Physician Notes Agree with pe and plan as documented. Feeling better from an abdominal perspective, reports of shoulder pain. Agree with further plan of care as documented. Subjective Patient seen and examined, chart reviewed. Pt states no further abd pain but having a lot pain under her right shoulder. Lidocaine patch and Tylenol haven't helped. No cough, SOB, fever. Denies n/v, melena, hematochezia. Having loose stools, c diff toxin neg, gene positive, GI path negative. mesenteric doppler neg. Pt. tolerating diet. Review of Systems Review of Systems: All systems reviewed & are unremarkable except as noted in HPI & below Physical Exam Constitutional: well developed, well nourished and comfortable; no acute distress Neck: trachea midline Respiratory: normal resp effort; slight crackles right base Cardiovascular: RRR, no murmur, no edema Chest (Breasts): Additional Comments: no rashes over where she is having pain under her right shoulder blade Gastrointestinal (Abdomen): normal bowel sounds, soft, nontender, no hepatosplenomegaly Inspection/Auscultation: abdomen not distended Skin: no rashes, warm and dry Psychiatric: A+Ox3, euthymic affect Results & Data Vital Signs (Past 12 Hours) Vital Signs Temp Pulse Resp BP Pulse Ox O2 Del Method O2 Flow Rate 09/28/23 08:02 36.3 C L 74 16 149/64 H 95 Room Air 09/27/23 21:52 Room Air, Nasal Cannula 2 Laboratory Results 09/28/23 09/28/23 09/28/23 Range/Units 11:47 07:50 07:37 WBC 7.99 (4.8-10.8) K/ul RBC 2.65 L (4.20-5.40) M/uL Hgb 8.3 L (12.0-16.0) g/dl Hct 25.7 L (37.0-47.0) % MCV 97.0 (80.0-100.0) fL MCH 31.3 (25.0-34.0) pg MCHC 32.3 (32.0-36.0) g/dL RDW Std Deviation 51.8 H (36.4-46.3) fL RDW Coeff of Noemy 14.7 H (11.5-14.5) % Plt Count 234 (130-400) K/uL MPV 9.2 L (9.4-12.4) fL Sodium 136 (136-145) mmol/L Potassium 4.6 (3.5-5.1) mmol/L Chloride 107 (98-107) mmol/L Carbon Dioxide 23 (21-32) mmol/L Anion Gap 6 (3-11) BUN 57 H (6-23) mg/dl Creatinine 3.13 H (0.6-1.2) mg/dl Est Cr Clr Drug Dosing 14.3 ml/min Est GFR ( Amer) 14.7 ml/min Est GFR (Non-Af Amer) 12.7 ml/min BUN/Creatinine Ratio 18.2 (10-20) Glucose 137 H (70-99(Fasting)) mg/dl POC Glucose 184 H 142 H (70-99) mg/dl Calcium 9.9 (8.6-10.3) mg/dl Magnesium 1.8 (1.7-2.4) mg/dl Stl C. cayetanensis PCR (NotDetected) Stool Rotavirus A PCR (NotDetected) Stl Adenov F 40/41 PCR (NotDetected) Stool Astrovirus (PCR) (NotDetected) Stool Campylobacter PCR (NotDetected) Stl C. diff Tox B Gene (Neg) Stl C.difficile Tox A&B (Negative) Stool Cryptosporidium PCR (NotDetected) Stl E.coli Shiga Tox PCR (NotDetected) Stl Enterotoxigenic E PCR (NotDetected) Stool EPEC (PCR) (NotDetected) Stool EAEC (PCR) (NotDetected) Stl E. histolytica PCR (NotDetected) Stool Giardia Lamblia PCR (NotDetected) Stool Salmonella PCR (NotDetected) Stool Sapovirus (PCR) (NotDetected) Stl P. shigelloides PCR (NotDetected) Stl Shigella/EIEC PCR (NotDetected) St Y.enterocolitica PCR (NotDetected) Stool Vibrio (PCR) (NotDetected) Stl Vibrio cholerae PCR (NotDetected) Stl Norovirus GI/GII PCR (NotDetected) 09/27/23 09/27/23 09/27/23 Range/Units Unknown 20:34 17:58 WBC (4.8-10.8) K/ul RBC (4.20-5.40) M/uL Hgb (12.0-16.0) g/dl Hct (37.0-47.0) % MCV (80.0-100.0) fL MCH (25.0-34.0) pg MCHC (32.0-36.0) g/dL RDW Std Deviation (36.4-46.3) fL RDW Coeff of Noemy (11.5-14.5) % Plt Count (130-400) K/uL MPV (9.4-12.4) fL Sodium (136-145) mmol/L Potassium (3.5-5.1) mmol/L Chloride (98-107) mmol/L Carbon Dioxide (21-32) mmol/L Anion Gap (3-11) BUN (6-23) mg/dl Creatinine (0.6-1.2) mg/dl Est Cr Clr Drug Dosing ml/min Est GFR ( Amer) ml/min Est GFR (Non-Af Amer) ml/min BUN/Creatinine Ratio (10-20) Glucose (70-99(Fasting)) mg/dl POC Glucose 191 H 191 H (70-99) mg/dl Calcium (8.6-10.3) mg/dl Magnesium (1.7-2.4) mg/dl Stl C. cayetanensis PCR Not Detected (NotDetected) Stool Rotavirus A PCR Not Detected (NotDetected) Stl Adenov F 40/41 PCR Not Detected (NotDetected) Stool Astrovirus (PCR) Not Detected (NotDetected) Stool Campylobacter PCR Not Detected (NotDetected) Stl C. diff Tox B Gene Positive Cdiff Gene H (Neg) Stl C.difficile Tox A&B Negative Cdiff Toxin (Negative) Stool Cryptosporidium PCR Not Detected (NotDetected) Stl E.coli Shiga Tox PCR Not Detected (NotDetected) Stl Enterotoxigenic E PCR Not Detected (NotDetected) Stool EPEC (PCR) Not Detected (NotDetected) Stool EAEC (PCR) Not Detected (NotDetected) Stl E. histolytica PCR Not Detected (NotDetected) Stool Giardia Lamblia PCR Not Detected (NotDetected) Stool Salmonella PCR Not Detected (NotDetected) Stool Sapovirus (PCR) Not Detected (NotDetected) Stl P. shigelloides PCR Not Detected (NotDetected) Stl Shigella/EIEC PCR Not Detected (NotDetected) St Y.enterocolitica PCR Not Detected (NotDetected) Stool Vibrio (PCR) Not Detected (NotDetected) Stl Vibrio cholerae PCR Not Detected (NotDetected) Stl Norovirus GI/GII PCR Not Detected (NotDetected) Diagnostic Findings Mesenteric doppler FINDINGS: The patient stopped velocity within the abdominal aorta is 120 cm/s. The visualized celiac, superior mesenteric, hepatic, splenic arteries appear patent. No elevated velocities to suggest hemodynamically significant stenosis. The inferior mesenteric artery was obscured by overlying bowel gas. IMPRESSION: No significant stenosis within the visualized abdominal vessels.
[2023-09-28] MEDS: carvediloL 25 MG TAB PO SCH ×2 (09:29→20:01)
[2023-09-28] MEDS: ACETAMINOPHEN 325 MG TAB PO SCH ×3 (09:30→21:13)
[2023-09-28] MEDS: ASPIRIN 81 MG ECTAB PO SCH (09:31)
[2023-09-28] MEDS: hydrALAZINE TAB 50 MG TAB PO SCH ×3 (09:32→21:14)
[2023-09-28] MEDS: LIDOCAINE 5% 1 PATCH TD SCH (09:33)
[2023-09-28] MEDS: ADVANCED PROBIOTIC 1250 MG CAPSULE PO SCH (09:33)
[2023-09-28] MEDS: PANTOprazole 40 MG TAB PO SCH (09:33)
[2023-09-28] MEDS: SACCHAROMYCES BOULARDII 250 MG CAP PO SCH (09:34)
[2023-09-28] MEDS: SPIRONOLACTONE 25 MG TAB PO SCH (09:34)
[2023-09-28] MEDS: DOCUSATE SODIUM 100 MG CAP PO SCH ×2 (09:35→20:02)
[2023-09-28] MEDS: HEPARIN SOD 5,000 UNIT/0.5 ML VIAL SQ SCH ×2 (09:36→21:14)
[2023-09-28] MEDS: POLYETHYLENE (MIRALAX) 17 GM PACK PO SCH (09:37)
[2023-09-28] MEDS: cefTRIAXone SODIUM 1,000 MG in DEXTROSE 5 % MINI-B 50 ML IV SCH (09:56)
[2023-09-28] MEDS: allopurinoL 100 MG TAB PO SCH (12:43)
--- NOTE | 2023-09-28 12:59 | Gastroenterology Progress Note ---
Date of Service September 28, 2023 Assessment & Plan Admission and Anticipated Discharge Date Admission Date: September 26, 2023 Results & Data Vital Signs (Past 12 Hours) Vital Signs Temp Pulse Resp BP Pulse Ox O2 Del Method O2 Flow Rate 09/28/23 09:58 Room Air, Nasal Cannula 2 09/28/23 08:02 36.3 C L 74 16 149/64 H 95 Room Air
--- NOTE | 2023-09-28 13:09 | XRay Report ---
RIGHT SHOULDER 3 VIEWS CLINICAL HISTORY: Atraumatic right shoulder pain. FINDINGS: 3 views of the right shoulder are obtained. No prior studies are available for comparison a t the time of dictation. The skeletal structures are osteopenic. There is no radiographic evidence of fracture or dislocation. Sorv-pe-bpmqckty osteoarthritic change is seen at the glenohumeral and acro mioclavicular joints. The overlying soft tissues are within normal limits. There are chronic/healed r ight-sided rib fractures. The heart is enlarged. The imaged right lung parenchyma appears clear. IMPRESSION: No acute bony abnormality is identified. Electronically signed by: Marco Morocho M.D. 09/28/2023 1:07 PM
[2023-09-28] MEDS: HYDROmorphone INJ 0.5 MG/0.5 ML SYR IV PRN (13:19)
--- NOTE | 2023-09-28 13:34 | Orthopedic Consultation ---
Date of Service September 28, 2023 Assessment & Plan (1) Pain in scapula: At this time, I discussed with the patient in full detail of her right upper extremity pathology with great detail with ample amount of time for her to ask any questions or state concerns. All questions and concerns were answered to the patient's satisfaction. At this point, she does have some chronic osteoarthritic changes to the right shoulder region but otherwise does have normal radiographs and physical exam. The only positive that she had on physical exam was tenderness to a direct spot over the scapular body. The current x-ray does not show a great scapular view but I do not anticipate there being any fractures to the scapular body due to there being no mechanism of injury during her stay here rather it being muscular in nature. I would recommend a scapular x-ray if she continues with pain to the right scapula but I do contribute most of her pain to being positional in nature since she states that it just started this morning after waking up. I recommend her working with physical therapy and Occupational Therapy while she is in here to get her up and moving and using her right shoulder. She may follow-up with orthopedics on a outpatient basis as needed. Please [place] text or reach out to [facility] orthopedics if the patient's situation is to change. I, Dr. Sean Naranjo, saw and examined the patient at bedside. She was having pain in the flank region from the inferior border of the scapula and radiated around her right thoracic region and her ribs. She denies any falls or traumas. She was not having any pain in the shoulder joint itself. I reviewed the shoulder x-rays and they were negative. I also reviewed the thoracic CT scan that she had today and did not see anything of fracture or any musculoskeletal issues. This may be referred pain that she is having but is difficult to tell. At this point I do not have anything acutely to offer her. She should be managed with pain control. We can see her in the office in the future if her symptoms persist. Please call if you have any further questions. My personal cell number is [phone]. History of Present Illness Reason for Consultation: . Right shoulder pain Requesting Physician: . Attending Physician: Fuentes Dave MD . Patient is an 87-year-old female who has been inpatient since 09/26/2023 for unrelated orthopedic reasons. She states that this morning, she woke up and was having some right shoulder pain. She does not recall any injury to the right shoulder that preceded this pain. She noted that it was hurting how she was laying on the bed. An x-ray was ordered of the right shoulder with consultation orthopedic surgery. She is able to pinpoint her pain to the right over the scapular body. She really does not have any pain to the shoulder girdle itself. She has full range of motion and strength when compared bilaterally. She denies any other concerns at this point. Allergies Allergy/AdvReac Type Severity Reaction Status Date / Time morphine AdvReac Intermediate Confusion Verified 09/26/23 10:53 phenylpropanolamine AdvReac Intermediate INTOLERANCE Verified 09/26/23 10:53 spironolactone AdvReac Intermediate weakness Verified 09/26/23 10:53 Home Medications Medication Instructions Recorded Confirmed Type aspirin 81 mg tablet,delayed 81 mg PO QAM 12/30/18 09/26/23 History release rosuvastatin 10 mg tablet 10 mg PO HS 12/30/18 09/26/23 History famotidine 20 mg tablet (Pepcid) 20 mg PO QDD 11/18/19 09/26/23 History lidocaine 4 % topical patch 1 patch topical DAILY Pain 06/23/20 09/26/23 History (Salonpas (lidocaine)) diclofenac sodium 1 % topical gel 4 g topical QID PRN Pain 03/17/21 09/26/23 History cyanocobalamin (vitamin B-12) 500 500 mcg PO QAM #30 tabs 03/27/21 09/26/23 Rx mcg tablet carvedilol 25 mg tablet 25 mg PO BIDM 06/13/21 09/26/23 History hydralazine 100 mg tablet 100 mg PO TID 06/13/21 09/26/23 History Saccharomyces boulardii 250 mg 250 mg PO QAM 08/26/21 09/26/23 History capsule (Florastor) ondansetron 4 mg disintegrating 4 mg PO Q6H PRN nausea and 11/25/21 09/26/23 Rx tablet vomiting #14 tabs acetaminophen 500 mg tablet 1,000 mg PO BID 04/26/22 09/26/23 History (Tylenol Extra Strength) insulin human U-100 NPH-regulr See Rx Instructions .Route .COMPLEX 08/05/22 09/26/23 History 70-30 mix 100 unit/mL subcutaneous susp (Humulin 70/30 U-100 Insulin) isosorbide dinitrate 20 mg tablet 40 mg PO TID 08/05/22 09/26/23 History omeprazole 20 mg capsule,delayed 20 mg PO QAM 08/05/22 09/26/23 History release polyethylene glycol 3350 17 17 g PO BID PRN Constipation 12/14/22 09/26/23 History gram/dose oral powder (Miralax) furosemide 20 mg tablet 20 mg PO Q OTHER DAY #45 tabs 08/04/23 09/26/23 Rx allopurinol 100 mg tablet 200 mg PO QDL 08/23/23 09/26/23 History spironolactone 25 mg tablet 25 mg PO QAM 08/23/23 09/26/23 History docusate sodium 100 mg capsule 100 mg PO BID 09/26/23 09/26/23 History sennosides 8.6 mg tablet (Senokot) 8.6 mg PO HS PRN Constipation 09/26/23 09/26/23 History Past Med/Surg History Medical History Bladder leak Hx of basal cell carcinoma Anemia Spinal stenosis of lumbar region with radiculopathy History of COVID-19 Hx of gout Hx of left bundle branch block Hx of Clostridium difficile infection Hx of diverticulitis of colon Kidney cysts Chronic back pain History of kidney stones Diabetes mellitus, type 2 Hearing deficit Hyperlipidemia Chronic kidney disease (CKD), stage IV (severe) Nocturnal hypoxemia HTN (hypertension) CHF (congestive heart failure) Surgical History History of left cataract surgery History of right cataract surgery History of arthroscopy S/P epidural steroid injection Nausea and vomiting after administration of anesthetic agent History of dilatation and curettage History of bilateral tubal ligation History of arthroscopy of left knee History of esophagogastroduodenoscopy (EGD) History of colonoscopy History of tooth extraction History of cystoscopy History of cardiac cath Hx of appendectomy Hx of cholecystectomy H/O: hysterectomy Family History Sister Family history of diabetes mellitus Sister Family history of diabetes mellitus Brother Family history of diabetes mellitus Family history of esophageal cancer Brother Family history of esophageal cancer Father Lung cancer Other No family history of adverse response to anesthesia No significant family history Social History Smoking Status: Never smoker Second Hand Exposure: No; Do You Dip or Chew Tobacco: No; Hx Alcohol Use: No Hx Substance Use: No Preferred Language: Malay Communication Ability: Effective Visual Impairment: Partially Limited 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 Physical Exam . Constitutional: WD/WN, vitals as above no acute distress Eyes: PERRL, conjunctivae normal, anicteric sclerae Neck: trachea midline, no thyromegaly Respiratory: normal respiratory effort, lungs clear to auscultation Cardiovascular: RRR, no murmur, no edema Vessels: normal carotid upstroke; no carotid bruit Gastrointestinal (Abdomen): normal bowel sounds, soft, nontender, no hepatosplenomegaly, pain with palpation along the right flank. Skin: no rashes, warm and dry Neurologic: CN's II-XI intact bilaterally and moves all extremities Psychiatric: A+Ox3, euthymic affect Musculoskeletal On physical examination of the right upper extremity there is no obvious erythema, ecchymosis, edema, or other obvious deformities. Tenderness to pa lpation over the scapular body. Normal range of motion and strength in all planes of the right upper extremity when compared bilaterally. Intact neurovascularity. +2 radial pulse. Less than 2-second capillary refill. Results & Data Results & Data Laboratory Results . Diagnostic Findings Shoulder X-Ray 09/28/23 11:35 RIGHT SHOULDER 3 VIEWS CLINICAL HISTORY: Atraumatic right shoulder pain. FINDINGS: 3 views of the right shoulder are obtained. No prior studies are available for comparison at the time of dictation. The skeletal structures are osteopenic. There is no radiographic evidence of fracture or dislocation. Xxtt-cx-sfqjxzbt osteoarthritic change is seen at the glenohumeral and acromioclavicular joints. The overlying soft tissues are within normal limits. There are chronic/healed right-sided rib fractures. The heart is enlarged. The imaged right lung parenchyma appears clear. IMPRESSION: No acute bony abnormality is identified. Electronically signed by: Marco Morocho M.D. 09/28/2023 1:07 PM PG Care Time/CCT Total # of Minutes Spent Total Time Spent with Patient: Total time spent is greater than 50% in coordination of care (as documented) at patient's floor/unit and/or counseling patient: Coding Level of Care Code 54139 IN/OBS CONSULT LVL 3,45M Diagnoses Pain in scapula M89.8X1
--- NOTE | 2023-09-28 15:45 | Hospitalist Progress Note ---
Date of Service September 28, 2023 Assessment & Plan (1) Acute right flank pain: (2) CKD (chronic kidney disease): (3) Anemia in CKD (chronic kidney disease): (4) DM (diabetes mellitus): (5) Chronic diastolic (congestive) heart failure: (6) Vitamin D deficiency: (7) Secondary hyperparathyroidism: (8) UTI (urinary tract infection): Plan: Abdominal/flank pain DD: Secondary to C. difficile colitis, diverticulitis --CT Abd:No acute infectious or inflammatory findings are identified in the abdomen or pelvis. Colonic diverticulosis with no clear CT evidence of acute diverticulitis. Small foci of gas within the bladder lumen a nonspecific and may be related to instrumentation. Correlate with clinical findings and urinalysis. --R Rib X ray:No acute right-sided rib fractures. --Stool PCR negative --Stool for C. difficile: Gene positive, toxin negative --Mesenteric ultrasound:No significant stenosis within the visualized abdominal vessels. 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 Monitor volume status Pain control Advance diet today Appreciate GI input Will need colonoscopy eventually--patient currently deferred as per GI Slowly improving Right shoulder/scapula pain Likely musculoskeletal/osteoarthritis --Shoulder X ray: No acute bony abnormality is identified. Appreciate orthopedics input Pain control PT OT Will consider scapular x-ray if no improvement with PT OT Bilateral renal cysts Concern for malignancy Follows with urology Given advanced age, patient preferred no further testing/treatment CKD IV S/p AVF creation Left antecubital cephalic vein fistula Currently not on dialysis i Avoid nephrotoxic agents Renal function at baseline Monitor Hyperparathyroidism Hypercalcemia Secondary to above -Dr. Childress considering Sensipar, but pt is thought to be a poor candidate for parathyroidectomy due to age, frailty. Monitor calcium levels Chronic diastolic CHF HTN HLD Pulmonary hypertension Moderate mitral regurgitation Intermittent LBBB Continue carvedilol and spironolactone Resume Lasix as above Monitor volume status H/O Recurrent UTI Urine culture not contributory Anemia of chronic disease - Hgb of 9.4, patient did not previously tolerate iron supplementation due to constipation, she has received intravenous iron infusions at [facility] once recently Monitor CBC DVT Px: SCDs Heparin SQ CODE STATUS: Full code Admission and Anticipated Discharge Date Admission Date: September 26, 2023 Subjective Patient is seen and examined at bedside States having right shoulder pain this morning Abdominal pain is better Tolerating liquid diet Abdominal pain improved with bowel movement yesterday Denies any nausea, vomiting, chest pain, dyspnea Review of Systems Review of Systems: All systems reviewed & are unremarkable except as noted in Subjective Physical Exam Physical Exam: Physical Exam: Vitals signs as noted above General Appearance:Obese, Elderly, no apparent distress Head: normocephalic, Atraumatic Eyes: normal inspection, EOMI Neck: supple, Trachea midline Respiratory/Chest: Normal breath sounds, CTA, No accessory muscle use Cardiovascular: S1, S2, No murmur Back: Right thoracic/flank mild tender Abdomen/GI:Soft, generalized mild tenderness, no guarding or rigidity,, Bowel sounds present Extremities/Musculoskeletal:normal inspection, 1+ B/L LE edema Neurologic/Psych:AAOX3, grossly no focal neurological deficits Skin: normal color, warm Results & Data Results & Data Vital Signs (Past 12 Hours) Vital Signs Temp Pulse Resp BP Pulse Ox O2 Del Method O2 Flow Rate 09/28/23 13:16 36.4 C L 74 16 136/71 96 Room Air 09/28/23 09:58 Room Air, Nasal Cannula 2 09/28/23 08:02 36.3 C L 74 16 149/64 H 95 Room Air Laboratory Results Short CBC 09/28/23 Range/Units 07:37 WBC 7.99 (4.8-10.8) K/ul Hgb 8.3 L (12.0-16.0) g/dl Hct 25.7 L (37.0-47.0) % Plt Count 234 (130-400) K/uL BMP 09/28/23 07:37 Sodium 136 Potassium 4.6 Chloride 107 Carbon Dioxide 23 BUN 57 H Creatinine 3.13 H Glucose 137 H Calcium 9.9
[2023-09-28] MEDS: FAMOTIDINE 20 MG TAB PO SCH (20:01)
[2023-09-28] MEDS: ROSUVASTATIN CALCIUM 10 MG TAB PO SCH (21:14)
[2023-09-29] MEDS: metroNIDAZOLE 500 MG/100 ML BAG IV SCH ×3 (04:36→20:58)
[2023-09-29] MEDS ORDERED: traMADol HCL 50 MG TABLET PO STA (05:50)
[2023-09-29] MEDS: VANCOMYCIN HCL 125 MG/2.5ML SOLN PO SCH ×3 (06:03→17:11)
[2023-09-29] MEDS: CHERRY SYRUP 5 ML UDP PO SCH ×3 (06:03→17:11)
[2023-09-29] MEDS: ISOSORBIDE DINITRATE 40 MG TAB PO SCH ×3 (06:05→16:18)
[2023-09-29 07:33] LABS: Hematocrit (blood only) 28.7 % (37.0-47.0); Hemoglobin 9.1 g/dl (12.0-16.0); Mean Corpuscular Hemoglobin 31.4 pg (25.0-34.0); Mean Corpuscular Hgb Conc 31.7 g/dL (32.0-36.0); Mean Platelet Volume 9.3 fL (9.4-12.4); Platelet Count 263 K/uL (130-400); RDW Coefficient of Variation 14.8 % (11.5-14.5); RDW Standard Deviation 53.5 fL (36.4-46.3); White Blood Count 9.28 K/ul (4.8-10.8)
[2023-09-29 07:59] LABS: Creatinine Clr Calc Pharmacy 13.3 ml/min; Est GFR (African American) 13.5 ml/min; Est GFR (Non-African American) 11.6 ml/min; Potassium 4.7 mmol/L (3.5-5.1)
[2023-09-29] MEDS: PANTOprazole 40 MG TAB PO SCH (08:50)
[2023-09-29] MEDS: SPIRONOLACTONE 25 MG TAB PO SCH (08:50)
[2023-09-29] MEDS: ACETAMINOPHEN 325 MG TAB PO SCH ×3 (08:50→20:57)
[2023-09-29] MEDS: ASPIRIN 81 MG ECTAB PO SCH (08:51)
[2023-09-29] MEDS: carvediloL 25 MG TAB PO SCH ×2 (08:51→16:18)
[2023-09-29] MEDS: DOCUSATE SODIUM 100 MG CAP PO SCH ×2 (08:51→20:56)
[2023-09-29] MEDS: hydrALAZINE TAB 50 MG TAB PO SCH ×3 (08:51→20:57)
[2023-09-29] MEDS: ADVANCED PROBIOTIC 1250 MG CAPSULE PO SCH (08:51)
[2023-09-29] MEDS: SACCHAROMYCES BOULARDII 250 MG CAP PO SCH (08:51)
[2023-09-29] MEDS: HEPARIN SOD 5,000 UNIT/0.5 ML VIAL SQ SCH ×2 (08:52→20:59)
[2023-09-29] MEDS: POLYETHYLENE (MIRALAX) 17 GM PACK PO SCH (08:52)
[2023-09-29] MEDS: LIDOCAINE 5% 1 PATCH TD SCH (08:52)
[2023-09-29] MEDS ORDERED: ONDANSETRON INJ 2 MG/ML 2 ML VIAL IV STA (09:14)
[2023-09-29] MEDS: HYDROmorphone INJ 0.5 MG/0.5 ML SYR IV PRN (09:18)
[2023-09-29] MEDS: INSULIN ASPART PER UNIT CHARGE SC SCH ×4 (09:19→20:58)
[2023-09-29] MEDS: LANTUS PER UNIT CHARGE SQ SCH ×2 (09:19→20:58)
[2023-09-29] MEDS: cefTRIAXone SODIUM 1,000 MG in DEXTROSE 5 % MINI-B 50 ML IV SCH (09:19)
[2023-09-29] MEDS: allopurinoL 100 MG TAB PO SCH (12:23)
--- NOTE | 2023-09-29 14:37 | CT Scan Report ---
CT thoracic spine wo con HISTORY: 87 years-old Female Thoraci radiculopathic pain Chronic mid back pain without reported trau ma. COMPARISON: Chest CT 06/16/2022, CT thoracic spine 12/22/2021, CT abdomen and pelvis 09/26/2022. TECHNIQUE: Multiple axial CT images of the thoracic spine were obtained without the use of IV contras t. A dose lowering technique was used consistent with the principals of BRIANNA. FINDINGS: Bridging osteophytic spurring. Demineralized appearance of the bones. Chondrocalcinosis of the disc s paces. Mild and utkj-dd-afyvrzji intervertebral disc space narrowing is noted with mostly moderate fa cet arthrosis. Chronic mild superior endplate compression deformity of the T1 vertebral body. No acut e fracture or subluxation is identified. No paravertebral edema. Left-sided thyroid goiter. Cardiomegaly with extensive coronary artery calcifications. Decreased atte nuation of the cardiac blood pool is suggestive of anemia. Mild intralobular septal thickening is sug gestive of mild pulmonary edema. Mild subsegmental bibasilar atelectasis versus scarring. 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 Cortical thinning of the kidneys. Bilateral renal lesions are better seen on th e comparison CT abdomen and pelvis study. Cholecystectomy. Suboptimal evaluation of the central canal and neural foramina by CT technique. There is no high-grad e central canal stenosis or neuroforaminal narrowing is identified. No mass lesions are seen within t he central canal. There are a few small posterior disc osteophyte complex formations, which flatten t he ventral thecal sac. IMPRESSION: 1. No acute fracture or subluxation is identified. 2. Chronic T1 compression deformity. 3. Degenerative changes as above without significant central canal or foraminal narrowing. 4. Incidental findings as above. ACT 112: Negative or not required by law. The above report was generated using voice recognition software. It may contain grammatical, syntax o r spelling errors. Dictated: 09/29/2023 2:24 PM Transcribed: 09/29/2023 2:35 PM Shan [id number] [email or web address] Electronically signed by: Doug Patel M.D. 09/29/2023 2:36 PM
[2023-09-29] MEDS: ONDANSETRON INJ 2 MG/ML 2 ML VIAL IV PRN (16:17)
[2023-09-29] MEDS ORDERED: traMADol HCL 50 MG TABLET PO PRN (16:18)
[2023-09-29] MEDS: FAMOTIDINE 20 MG TAB PO SCH (16:18)
--- NOTE | 2023-09-29 16:18 | Pain Management Consultation ---
Date of Consultation September 29, 2023 Assessment & Plan (1) Right-sided chest wall pain: (2) CKD (chronic kidney disease): (3) Anemia in CKD (chronic kidney disease): (4) C. difficile colitis: (5) Chronic constipation: Plan 1. Patient presenting with right posterior/lateral/anterior chest wall pain of unknown etiology potentially relating to a costochondritis versus intercostal neuralgia without evidence of rash to suggest herpes zoster. Imaging has been without acute finding relating to her current complaint. We have nothing interventional to offer the patient at this time. Could potentially consider intercostal nerve block in the outpatient setting with any persistent complaints of pain. 2. Consider a Medrol Dosepak if no contraindication given her chronic comorbid medical conditions 3. Recommend she trial tramadol 50 mg every 6 hours for as needed breakthrough pain in place of IV hydromorphone due to side effects of IV hydromorphone of significant sedation per the patient's report. Should tramadol be ineffective or with side effects, would then recommend a trial of Nucynta 50 mg every 6 hours as needed 4. Patient unaware of a prior trial of pregabalin which could be considered in this situation although concern over side effect profile of this medication given her comorbid conditions. 5. Continue with Lidoderm patch applied to the right posterior lateral chest wall at site of maximal tenderness 6. Pain service will sign off on this patient at this time. Please consult us for reevaluation as needed. History of Present Illness Reason for Consultation: Right flank pain traveling to the right lateral and anterior chest wall Requesting Physician: Rose Warren MD Attending Physician: Rose Warren MD History of Present Illness Mrs. Lerma is an 87-year-old white female with multiple comorbid medical conditions included but not limited to chronic kidney disease with associated anemia, chronic diastolic CHF, hypertension, hyperlipidemia, pulmonary hypertension, hypercalcemia, history of recurrent UTI, vitamin D deficiency, history of diverticulosis, history of C. difficile and history of recent AV fistula placement by Dr. Pacheco on 09/18 in anticipation of need for hemodialysis. The patient reported onset of pain in the right mid-lower thoracic paraspinal location traveling to the right posterior lateral and anterior chest wall in the inframammary location approximately 5 days ago without known injury. She reportedly awoke with the pain which she described as sharp in characteristic at that time. She denied any falls or injuries in the home. She denies increased pain with deep breathing, coughing or sneezing. Patient reports her pain is slightly lessened in frequency and severity over the past few days, but does persist. She rates her current pain a 6-8/10 although appears to be comfortable sitting in the exam room in no acute distress. She is feeling panicky and nauseated after recently undergoing a CT scan. Imaging upon this admission has failed to reveal evidence of a rib fracture or thoracic spinal abnormality. There has been no evidence of a rash. She does have history of chronic low back pain and and does follow with Dr. Vinson in the outpatient setting. She reports prior use of gabapentin without relief of any of her chronic low back pain complaints. She is unable to recall past use of pregabalin. Patient denies any active shortness of breath. She has no further constitutional complaints. Patient took a single dose of tramadol this morning but she is unable to report efficacy, benefit or side effects. She is complaining of sedation and constipation from use of IV hydromorphone. She does deal with chronic intermittent constipation. Plan of care discussed with Dr. Yasmine Urban. Pain Assessment Full Body Front + Back: 2 1. Right posterior lateral mid-lower chest wall 2. Right lateral/anterior middle-lower chest wall Pain scale - at its best (0-10): 6 Pain scale - at its worst (0-10): 8 Allergies Allergy/AdvReac Type Severity Reaction Status Date / Time morphine AdvReac Intermediate Confusion Verified 09/26/23 10:53 phenylpropanolamine AdvReac Intermediate INTOLERANCE Verified 09/26/23 10:53 spironolactone AdvReac Intermediate weakness Verified 09/26/23 10:53 Home Medications Medication Instructions Recorded Confirmed Type aspirin 81 mg tablet,delayed 81 mg PO QAM 12/30/18 09/26/23 History release rosuvastatin 10 mg tablet 10 mg PO HS 12/30/18 09/26/23 History famotidine 20 mg tablet (Pepcid) 20 mg PO QDD 11/18/19 09/26/23 History lidocaine 4 % topical patch 1 patch topical DAILY Pain 06/23/20 09/26/23 History (Salonpas (lidocaine)) diclofenac sodium 1 % topical gel 4 g topical QID PRN Pain 03/17/21 09/26/23 History cyanocobalamin (vitamin B-12) 500 500 mcg PO QAM #30 tabs 03/27/21 09/26/23 Rx mcg tablet carvedilol 25 mg tablet 25 mg PO BIDM 06/13/21 09/26/23 History hydralazine 100 mg tablet 100 mg PO TID 06/13/21 09/26/23 History Saccharomyces boulardii 250 mg 250 mg PO QAM 08/26/21 09/26/23 History capsule (Florastor) ondansetron 4 mg disintegrating 4 mg PO Q6H PRN nausea and 11/25/21 09/26/23 Rx tablet vomiting #14 tabs acetaminophen 500 mg tablet 1,000 mg PO BID 04/26/22 09/26/23 History (Tylenol Extra Strength) insulin human U-100 NPH-regulr See Rx Instructions .Route .COMPLEX 08/05/22 09/26/23 History 70-30 mix 100 unit/mL subcutaneous susp (Humulin 70/30 U-100 Insulin) isosorbide dinitrate 20 mg tablet 40 mg PO TID 08/05/22 09/26/23 History omeprazole 20 mg capsule,delayed 20 mg PO QAM 08/05/22 09/26/23 History release polyethylene glycol 3350 17 17 g PO BID PRN Constipation 12/14/22 09/26/23 History gram/dose oral powder (Miralax) furosemide 20 mg tablet 20 mg PO Q OTHER DAY #45 tabs 08/04/23 09/26/23 Rx allopurinol 100 mg tablet 200 mg PO QDL 08/23/23 09/26/23 History spironolactone 25 mg tablet 25 mg PO QAM 08/23/23 09/26/23 History docusate sodium 100 mg capsule 100 mg PO BID 09/26/23 09/26/23 History sennosides 8.6 mg tablet (Senokot) 8.6 mg PO HS PRN Constipation 09/26/23 09/26/23 History Pain History Pain Intensity Pain scale - at its best (0-10): 6 Pain scale - at its worst (0-10): 8 Patient History Medical History (Updated 09/29/23 @ 16:14 by David Cortez PA-C) Right-sided chest wall pain Bladder leak Hx of basal cell carcinoma Anemia Spinal stenosis of lumbar region with radiculopathy History of COVID-19 04/26/22, pcr test [place], admitted>pneumonia>resolved. Hx of gout Hx of left bundle branch block Intermittent Hx of Clostridium difficile infection Most recent C diff infection 12/2022- admitted to [facility] and treated with abx Hx of diverticulitis of colon Most recent episode 12/2022 - admitted at [facility] Kidney cysts LEFT SIDE>BEING MONITORED BY UROLOGY [facility] Chronic back pain History of kidney stones Diabetes mellitus, type 2 Hearing deficit Hyperlipidemia Chronic kidney disease (CKD), stage IV (severe) follows with Dr. Childress - nephmaxine aware of patient following with vascular surgery Nocturnal hypoxemia WEARS 2L HS HTN (hypertension) CHF (congestive heart failure) follows with Kaushal Nieto PA-C EF 55-60% per 12/2022 ECHO Surgical History History of left cataract surgery History of right cataract surgery History of arthroscopy LEFT KNEE S/P epidural steroid injection Nausea and vomiting after administration of anesthetic agent + VERTIGO History of dilatation and curettage History of bilateral tubal ligation History of arthroscopy of left knee History of esophagogastroduodenoscopy (EGD) History of colonoscopy History of tooth extraction all teeth History of cystoscopy History of cardiac [place] [facility] [place] Hx of appendectomy Hx of cholecystectomy H/O: hysterectomy Family History Sister Family history of diabetes mellitus Sister Family history of diabetes mellitus Brother Family history of diabetes mellitus Family history of esophageal cancer Brother Family history of esophageal cancer Father Lung cancer Other No family history of adverse response to anesthesia No significant family history Social History Smoking Status: Never smoker Second Hand Exposure: No; Do You Dip or Chew Tobacco: No; Hx Alcohol Use: No Hx Substance Use: No Preferred Language: Icelandic Communication Ability: Effective Visual Impairment: Partially Limited 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 Speech and thought process appropriate. Patient appears to be moderately anxious. Cognition intact. Head: Normocephalic and atraumatic. ENT: No evidence of nasal or oral mucosal lesions. Mucous membranes are moist. Eyes: Pupils equal round reactive to light. Neck: Supple without adenopathy and full range of motion. Chest: Nontender to palpation of the costosternal junction. Minimally tender with AP compression of the right chest wall. Nontender with lateral compression of the chest wall. Patient is tender along the intercostal space predominantly involving the T6-8 location posteriorly, laterally and anteriorly. No focal isolated rib tenderness to palpation. No visible rash or skin breakdown was appreciated. Abdomen: Soft and nondistended. No organomegaly. Bowel sounds active. No rebound or guarding was appreciated. Back/spine: No focal midline tenderness over the thoracic spine to palpation or percussion. No focal thoracic facet joint tenderness to provocative testing. Lower extremities: SLR negative bilaterally. Sensation intact without deficit. Neurologic: Cranial nerves grossly intact. Ambulatory function not witnessed. Results (Pain Clinic) Diagnostic Review CT Findings: [place], [place] [phone] CT Scan Report Patient: BELKIS LERMA Admit Date: 09/26/23 MR#: [id number] Address1: [address] [place] [address] Acct ID:[id number] Address2: Date: 1935 [facility] Zip: [place] [address] Age: 87 Location: 3N Sex: F Room/Bed: [facility] Att Phy: Rose Warren MD Diagnosis: R FLANK PAIN Dolores Phy: Fox Ramirez MD Service Date: 09/29/23 Fam Phy: Interpreting Phy: Doug PatelAdmit Phy: Brunilda Rodriguez PA-C Ordering Phy: Rose Warren MD cc: ~ CT thoracic spine wo con HISTORY: 87 years-old Female Thoraci radiculopathic pain Chronic mid back pain without reported trauma. COMPARISON: Chest CT 06/16/2022, CT thoracic spine 12/22/2021, CT abdomen and pelvis 09/26/2022. TECHNIQUE: Multiple axial CT images of the thoracic spine were obtained without the use of IV contrast. A dose lowering technique was used consistent with the principals of BRIANNA. FINDINGS: Bridging osteophytic spurring. Demineralized appearance of the bones. Chondrocalcinosis of the disc spaces. Mild and [id number] intervertebral disc space narrowing is noted with mostly moderate facet arthrosis. Chronic mild superior endplate compression deformity of the T1 vertebral body. No acute fracture or subluxation is identified. No paravertebral edema. Left-sided thyroid goiter. Cardiomegaly with extensive coronary artery calcifications. Decreased attenuation of the cardiac blood pool is suggestive of anemia. Mild intralobular septal thickening is suggestive of mild pulmonary edema. Mild subsegmental bibasilar atelectasis versus scarring. 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 Cortical thinning of the kidneys. Bilateral renal lesions are better seen on the comparison CT abdomen and pelvis study. Cholecystectomy. Suboptimal evaluation of the central canal and neural foramina by CT technique. There is no high-grade central canal stenosis or neuroforaminal narrowing is identified. No mass lesions are seen within the central canal. There are a few small posterior disc osteophyte complex formations, which flatten the ventral thecal sac. IMPRESSION: 1. No acute fracture or subluxation is identified. 2. Chronic T1 compression deformity. 3. Degenerative changes as above without significant central canal or foraminal narrowing. 4. Incidental findings as above. ACT 112: Negative or not required by law. The above report was generated using voice recognition software. It may contain grammatical, syntax or spelling errors. Dictated: 09/29/2023 2:24 PM Transcribed: 09/29/2023 2:35 PM Sahn [id number] [email or web address] Electronically signed by: Doug Patel M.D. 09/29/2023 2:36 PM Dictated: 09/29/23 1424 Transcribed: 09/29/23 1435 [facility], [place] [phone] CT Scan Report Patient: BELKIS LERMA Admit Date: 09/26/23 MR#: [id number] Address1: [address] [place] [address] Acct ID:[id number] Address2: Date: 1935 [facility] Zip: [place] [address] Age: 87 Location: ED Sex: F Room/Bed: Att Phy: Diagnosis: CHEST PAIN, SHOULDER PAIN Dolores Phy: Fox Ramirez MD Service Date: 09/26/23 [facility] Phy: Interpreting Phy: Marco Morocho MDAdmit Phy: Ordering Phy: Dilcia Wei DO cc: ~ ADDENDUM ADDENDUM: Addendum is generated to correct a transcriptional error in the impression. See below. IMPRESSION: 1. No acute infectious or inflammatory findings are identified in the abdomen or pelvis. 2. Colonic diverticulosis with no clear CT evidence of acute diverticulitis. 3. Small foci of gas within the bladder lumen a nonspecific and may be related to instrumentation. Correlate with clinical findings and urinalysis. 4. Additional findings as above. Electronically signed by: Marco Morocho M.D. 09/26/2023 9:[address] SCAN OF THE ABDOMEN AND PELVIS WITHOUT IV CONTRAST CLINICAL HISTORY: Right flank pain COMPARISON STUDY: Prior abdominal CT scans, most recently dated 01/10/2023. TECHNIQUE: CT scan of the abdomen and pelvis is performed from the lung bases to the proximal femora. Images are reviewed in the axial, sagittal, and coronal planes. IV contrast was not administered for this examination. A dose lowering technique was utilized adhering to the principles of ALARA. CT DOSE: 1301.32 mGy.cm FINDINGS: Lung bases: The heart is mildly enlarged and without pericardial effusion. The coronary arteries an mitral annulus are densely calcified. A tiny hiatal hernia is observed. There are scattered calcified granulomas. The lung bases are otherwise clear noting dependent scarring/atelectasis. Liver: The unenhanced liver is normal in size, contour, and attenuation. There is no intrahepatic biliary ductal dilatation. A 1.7 cm cyst is again seen in the left lobe. Gallbladder: Surgically absent noting clips in the gallbladder fossa. Spleen: Normal in size and attenuation. Pancreas: The unenhanced pancreas is moderately atrophic and grossly unremarkable. 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 The right adrenal gland is normal in appearance. Kidneys: The unenhanced kidneys are atrophic and without hydronephrosis. There are no renal calculi identified. A 5.9 cm complex lesion in the left renal pelvis is unchanged, as are additional bilateral simple and complex cysts. Abdominal vasculature: The abdominal aorta is normal in course and caliber noting advanced atherosclerotic calcification. Bowel: There is moderate colonic diverticulosis without clear CT evidence of acute diverticulitis. No bowel obstruction is seen. The appendix is not identified and reported surgically absent. Peritoneum: There is no intraperitoneal free air or abdominal ascites. There is a fat-containing umbilical hernia. Foci of induration within the ventral abdominal wall are likely related to subcutaneous injections. Lymphadenopathy: None. Pelvic viscera: There are small foci of gas within the bladder lumen. The bladder is otherwise normal as imaged. The uterus is surgically absent. No adnexal lesion is seen. Skeletal structures: The skeletal structures are osteopenic. There is moderate lumbosacral spondylosis. No lytic or blastic lesions are seen. IMPRESSION: 1. No acute infectious or inflammatory findings are identified in the abdomen or pelvis. 2. Colonic gas. There are CT findings of acute diverticulitis. 3. Small foci of gas within the bladder lumen a nonspecific and may be related to instrumentation. Correlate with clinical findings and urinalysis. 4. Additional findings as above. ACT 112: Negative or not required by law. Electronically signed by: Marco Morocho M.D. 09/26/2023 9:47 AM Dictated: 09/26/23938 Transcribed: 09/26/23938 Radiology Findings: [place], [place] [phone] XRay Report Patient: BELKIS LERMA Admit Date: 09/26/23 MR#: [id number] Address1: [address] [place] [address] Acct ID:[id number] Address2: Date: 1935 [facility] Zip: [place] [address] Age: 87 Location: [facility] Sex: F Room/Bed: [facility] 1-3 Att Phy: Fuentes Dave MD Diagnosis: R FLANK PAIN Dolores Phy: Fox Ramirez MD Service Date: 09/26/23 Fam Phy: Interpreting Phy: Catrachito Galindo Phy: Brunilda Rodriguez PA-C Ordering Phy: Brunilda Rodriguez PA-C cc: ~ XR ribs RT min 2V CLINICAL HISTORY: Eval R flank/rib pain COMPARISON STUDY: Chest 09/26/2023. FINDINGS: There are old, healed right lower rib fractures. No acute rib fractures identified. No right-sided pneumothorax. The right lung appears clear. The heart is enlarged. Prior cholecystectomy. IMPRESSION: No acute right-sided rib fractures. ACT 112: Negative or not required by law. [place], [place] [phone] XRay Report Patient: BELKIS LERMA Admit Date: 09/26/23 MR#: [id number] Address1: [address] [place] [address] Acct ID:[id number] Address2: Date: 1935 [facility] Zip: [place] [address] Age: 87 Location: ED Sex: F Room/Bed: Att Phy: Diagnosis: CHEST PAIN, SHOULDER PAIN Dolores Phy: Fox Ramirez MD Service Date: 09/26/23 Fam Phy: Interpreting Phy: Catrachito [facility] Phy: Ordering Phy: Dilcia Wei DO cc: ~ XR chest 1V portable HISTORY: Atypical chest pain. COMPARISON: Chest 01/04/2023. FINDINGS: No pneumothorax. No pleural effusions. The heart remains enlarged. There is mild central pulmonary vascular congestion without overt edema. No focal lung consolidations to suggest a pneumonia. No acute fractures identified. IMPRESSION: Cardiomegaly and mild central pulmonary vascular congestion without overt edema. ACT 112: Negative or not required by law
--- NOTE | 2023-09-29 17:20 | Hospitalist Progress Note ---
Date of Service September 29, 2023 Assessment & Plan (1) Acute right flank pain: (2) CKD (chronic kidney disease): (3) Anemia in CKD (chronic kidney disease): (4) DM (diabetes mellitus): (5) Chronic diastolic (congestive) heart failure: (6) Vitamin D deficiency: (7) Secondary hyperparathyroidism: (8) UTI (urinary tract infection): Plan: Abdominal/flank pain DD: Secondary to C. difficile colitis, diverticulitis --CT Abd:No acute infectious or inflammatory findings are identified in the abdomen or pelvis. Colonic diverticulosis with no clear CT evidence of acute diverticulitis. Small foci of gas within the bladder lumen a nonspecific and may be related to instrumentation. Correlate with clinical findings and urinalysis. --R Rib X ray:No acute right-sided rib fractures. --Stool PCR negative --Stool for C. difficile: Gene positive, toxin negative --Mesenteric ultrasound:No significant stenosis within the visualized abdominal vessels. 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 Pain control Advance diet today Appreciate GI input and recommendation Will need colonoscopy eventually--patient currently deferred as per GI Still complains of pain seems to be in the abdominal wall and adjoining chest wall Right-sided chest wall pain Pain seems to be like a band starting in the lower thoracic spine area and going around Does not have any rash and/or impaired sensation adjoining the pain distribution area CT of the thoracic spine did not show any significant nerve entrapment Appreciate pain therapy input and recommendation Will try pain medications as per the recommendation If the pain is controlled likely discharge tomorrow Right shoulder/scapula pain Likely musculoskeletal/osteoarthritis --Shoulder X ray: No acute bony abnormality is identified. Appreciate orthopedics input Has osteoarthritis involving the shoulder Bilateral renal cysts Concern for malignancy Follows with urology Given advanced age, patient preferred no further testing/treatment CKD IV S/p AVF creation Left antecubital cephalic vein fistula Currently not on dialysis i Avoid nephrotoxic agents Renal function at baseline Monitor Hyperparathyroidism Hypercalcemia Secondary to above -Dr. Childress considering Sensipar, but pt is thought to be a poor candidate for parathyroidectomy due to age, frailty. Monitor calcium levels-calcium level remains normal Chronic diastolic CHF HTN HLD Pulmonary hypertension Moderate mitral regurgitation Intermittent LBBB Continue carvedilol and spironolactone Resume Lasix as above Monitor volume status H/O Recurrent UTI Urine culture not contributory Anemia of chronic disease - Hgb of 9.4, patient did not previously tolerate iron supplementation due to constipation, she has received intravenous iron infusions at [facility] once recently Monitor CBC DVT Px: SCDs Heparin SQ CODE STATUS: Full code Admission and Anticipated Discharge Date Admission Date: September 26, 2023 Subjective 09/29/2023 The patient was seen and examined in medical floor She has been complaining of pain in the light lateral chest wall for about last 5 or 6 days She has had back pain before and received injection from Dr. Templeton She has nausea associated with pain but denies any other significant symptoms Pain start lower chest all starting at the spine then goes around the belly Review of Systems Review of Systems: All systems reviewed and are unremarkable except as noted below Physical Exam Physical Exam: Lying in bed with acute distress secondary to pain Constitutional: well developed, well nourished, + ill appearing and + obese Eyes: PERRL, conjunctivae normal, anicteric sclerae ENMT: external ear and nose normal, oropharynx normal Neck: trachea midline, no thyromegaly Respiratory: no respiratory distress Auscultation: lungs clear to auscultation bilaterally Cardiovascular: Rate/Rhythm: regular rate and regular rhythm; not tachycardic Heart Sounds: normal S1 and normal S2; no murmur Extremities: no edema Gastrointestinal (Abdomen): Inspection/Auscultation: normal bowel sounds; abdomen not distended Percussion/Palpation: abdomen soft; abdomen nontender Musculoskeletal: No acute arthritis involving any of the joint Neurologic: normal touch/pain/proprioception and moves all extremities; no focal motor deficits Alert, awake and oriented x 3 no focal sensory or motor deficit appreciated Lymphatic: no cervical or axillary lymphadenopathy Results & Data Results & Data Vital Signs (Past 12 Hours) Vital Signs Temp Pulse Resp BP Pulse Ox O2 Del Method O2 Flow Rate 09/29/23 17:05 36.3 C L 70 16 150/65 H 96 Nasal Cannula 2 09/29/23 08:02 36.2 C L 72 16 181/68 H 98 Nasal Cannula 1 09/29/23 08:00 Nasal Cannula 2 Laboratory Results Short CBC 09/29/23 Range/Units 07:09 WBC 9.28 (4.8-10.8) K/ul Hgb 9.1 L (12.0-16.0) g/dl Hct 28.7 L (37.0-47.0) % Plt Count 263 (130-400) K/uL BMP 09/29/23 07:09 Sodium 135 L Potassium 4.7 Chloride 107 Carbon Dioxide 21 BUN 57 H Creatinine 3.36 H Glucose 153 H Calcium 10.0 Medications Administered Current Inpatient Medications Acetaminophen (Acetaminophen 325 Mg Tab) 650 mg PO TID [facility] Stop: 10/27/23 00:00 Last Admin: 09/29/23 14:32 Dose: 650 mg Acetaminophen (Acetaminophen 325 Mg Tab) 325 mg PO Q4H PRN PRN Reason: pain/fever Stop: 10/26/23 22:57 Last Admin: 09/29/23 04:35 Dose: 325 mg Allopurinol (Allopurinol 100 Mg Tab) 200 mg PO QDL [facility] Stop: 10/27/23 11:29 Last Admin: 09/29/23 12:23 Dose: 200 mg Aspirin (Aspirin 81 Mg Ectab) 81 mg PO QAM [facility] Stop: 10/27/23 08:59 Last Admin: 09/29/23 08:51 Dose: 81 mg Carvedilol (Carvedilol 25 Mg Tab) 25 mg PO BIDM [facility] Stop: 10/26/23 16:59 Last Admin: 09/29/23 16:18 Dose: 25 mg Riley Syrup (Riley Syrup 5 Ml Udp) 5 ml PO Q6 [facility] Stop: 10/06/23 17:59 Last Admin: 09/29/23 12:23 Dose: 5 ml Dextrose (Dextrose 50% 50 Ml Syringe) 25 - 50 ml IV UD PRN; Protocol PRN Reason: Hypoglycemia Protocol Stop: 10/26/23 14:44 Diclofenac Sodium (Diclofenac Sod 1% Gel 100 Gm Tube) 4 gm EXT QID PRN; Protocol PRN Reason: Pain Stop: 10/26/23 13:05 Docusate Sodium (Docusate Sodium 100 Mg Cap) 100 mg PO BID [facility] Stop: 10/26/23 20:59 Last Admin: 09/29/23 08:51 Dose: Not Given Famotidine (Famotidine 20 Mg Tab) 20 mg PO QDD [facility] Stop: 10/26/23 16:29 Last Admin: 09/29/23 16:18 Dose: 20 mg Glucagon (Glucagon For Inj 1 Mg Vial) 1 mg SQ UD PRN; Protocol PRN Reason: Hypoglycemia Protocol Stop: 10/26/23 14:44 Glucose (Glucose 10 Tab/Tube) 4 - 8 tab PO UD PRN; Protocol PRN Reason: Hypoglycemia Treatment Stop: 10/26/23 14:44 Glucose (Glucose 40% Gel 15 Gm Tube) 15 - 30 gm PO UD PRN; Protocol PRN Reason: Hypoglycemia Protocol Stop: 10/26/23 14:44 Heparin Sodium (Porcine) (Heparin Sod 5,000 Unit/0.5 Ml Vial) 5,000 units SQ Q12 [facility] Stop: 10/26/23 20:59 Last Admin: 09/29/23 08:52 Dose: 5,000 units Hydralazine HCl (Hydralazine Tab 50 Mg Tab) 100 mg PO TID [facility] Stop: 10/26/23 13:59 Last Admin: 09/29/23 14:33 Dose: 100 mg Hydromorphone HCl (Hydromorphone Inj 0.5 Mg/0.5 Ml Syr) 0.5 mg IV Q6H PRN PRN Reason: Pain Stop: 10/10/23 12:31 Last Admin: 09/29/23 09:18 Dose: 0.5 mg Ceftriaxone Sodium 1,000 mg/ (Dextrose) 50 mls @ 100 mls/hr IV Q24H [facility]; Protocol Stop: 10/06/23 09:59 Last Infusion: 09/29/23 10:12 Dose: Infused Metronidazole (Flagyl) 500 mg in 100 mls @ 100 mls/hr IV Q8H [facility]; Protocol Stop: 10/06/23 13:29 Last Infusion: 09/29/23 15:54 Dose: Infused Insulin Aspart (Insulin Aspart Per Unit Charge) 0 units SC ACHS [facility] Stop: 10/27/23 17:59 Last Admin: 09/29/23 12:30 Dose: Not Given Insulin Glargine (Lantus Per Unit Charge) 5 units SQ BID [facility] Stop: 10/26/23 20:59 Last Admin: 09/29/23 09:19 Dose: 5 units Isosorbide Dinitrate (Isosorbide Dinitrate 40 Mg Tab) 40 mg PO TID@0700,1200,1700 [facility] Stop: 10/26/23 16:59 Last Admin: 09/29/23 16:18 Dose: 40 mg Lactobacillus Acidophilus (Advanced Probiotic 1250 Mg Capsule) 2 cap PO DAILY [facility] Stop: 10/27/23 08:59 Last Admin: 09/29/23 08:51 Dose: 2 cap Lidocaine (Lidocaine 5% 1 Patch) 1 patch TD DAILY [facility] Stop: 10/27/23 08:59 Last Admin: 09/29/23 08:52 Dose: 1 patch Magnesium Hydroxide (Magnesium Hydroxide Susp 30 Ml Udc) 30 ml PO Q6H PRN PRN Reason: Constipation Stop: 10/27/23 11:32 Miscellaneous (Remove Lidoderm Patch) 1 each N/A DAILY@0859 [facility] Stop: 10/26/23 13:29 Last Admin: 09/29/23 09:00 Dose: 1 each Miscellaneous (Carbohydrates For Hypoglycemia ) 15 - 30 gm PO UD PRN PRN Reason: Hypoglycemia Protocol Stop: 10/26/23 14:44 Ondansetron HCl (Ondansetron Inj 2 Mg/Ml 2 Ml Vial) 4 mg IV Q6H PRN PRN Reason: Nausea And Vomiting Stop: 10/29/23 16:11 Last Admin: 09/29/23 16:17 Dose: 4 mg Pantoprazole Sodium (Pantoprazole 40 Mg Tab) 40 mg PO QAM [facility] Stop: 10/27/23 08:59 Last Admin: 09/29/23 08:50 Dose: 40 mg Polyethylene Glycol (Polyethylene (Miralax) 17 Gm Pack) 17 gm PO BID PRN PRN Reason: Constipation Stop: 10/26/23 13:05 Polyethylene Glycol (Polyethylene (Miralax) 17 Gm Pack) 17 gm PO DAILY [facility] Stop: 10/27/23 11:29 Last Admin: 09/29/23 08:52 Dose: Not Given Rosuvastatin Calcium (Rosuvastatin Calcium 10 Mg Tab) 10 mg PO HS [facility] Stop: 10/26/23 20:59 Last Admin: 09/28/23 21:14 Dose: 10 mg Saccharomyces Boulardii (Saccharomyces Boulardii 250 Mg Cap) 250 mg PO QAM [facility] Stop: 10/27/23 08:59 Last Admin: 09/29/23 08:51 Dose: 250 mg Sennosides (Senna 8.6 Mg Tab) 8.6 mg PO HS PRN PRN Reason: Constipation Stop: 10/26/23 13:05 Spironolactone (Spironolactone 25 Mg Tab) 25 mg PO QAM [facility] Stop: 10/27/23 08:59 Last Admin: 09/29/23 08:50 Dose: 25 mg Tramadol HCl (Tramadol Hcl 50 Mg Tablet) 50 mg PO Q6H PRN PRN Reason: Pain Stop: 10/29/23 16:17 Vancomycin HCl (Vancomycin Hcl 125 Mg/2.5ml Soln) 125 mg PO Q6 [facility] Stop: 10/06/23 17:59 Last Admin: 09/29/23 12:30 Dose: 125 mg
[2023-09-29] MEDS: ROSUVASTATIN CALCIUM 10 MG TAB PO SCH (20:57)
[2023-09-30] MEDS: CHERRY SYRUP 5 ML UDP PO SCH ×3 (05:15→11:59)
[2023-09-30] MEDS: VANCOMYCIN HCL 125 MG/2.5ML SOLN PO SCH ×2 (05:15)
[2023-09-30] MEDS: metroNIDAZOLE 500 MG/100 ML BAG IV SCH (05:15)
[2023-09-30] MEDS: ISOSORBIDE DINITRATE 40 MG TAB PO SCH ×3 (06:19→16:41)
[2023-09-30] MEDS: ACETAMINOPHEN 325 MG TAB PO SCH ×3 (08:25→20:36)
[2023-09-30] MEDS: HEPARIN SOD 5,000 UNIT/0.5 ML VIAL SQ SCH ×2 (08:25→20:36)
[2023-09-30] MEDS: SPIRONOLACTONE 25 MG TAB PO SCH (08:25)
[2023-09-30] MEDS: hydrALAZINE TAB 50 MG TAB PO SCH ×3 (08:25→20:36)
[2023-09-30] MEDS: DOCUSATE SODIUM 100 MG CAP PO SCH ×2 (08:26→20:36)
[2023-09-30] MEDS: POLYETHYLENE (MIRALAX) 17 GM PACK PO SCH (08:26)
[2023-09-30] MEDS: ASPIRIN 81 MG ECTAB PO SCH (08:27)
[2023-09-30] MEDS: SACCHAROMYCES BOULARDII 250 MG CAP PO SCH (08:27)
[2023-09-30] MEDS: PANTOprazole 40 MG TAB PO SCH (08:27)
[2023-09-30] MEDS: ADVANCED PROBIOTIC 1250 MG CAPSULE PO SCH (08:27)
[2023-09-30] MEDS: LIDOCAINE 5% 1 PATCH TD SCH (08:27)
[2023-09-30] MEDS: carvediloL 25 MG TAB PO SCH ×2 (08:27→16:41)
[2023-09-30] MEDS: INSULIN ASPART PER UNIT CHARGE SC SCH ×4 (08:28→20:35)
[2023-09-30] MEDS: LANTUS PER UNIT CHARGE SQ SCH ×2 (08:32→20:35)
[2023-09-30] MEDS: ONDANSETRON INJ 2 MG/ML 2 ML VIAL IV PRN (08:32)
[2023-09-30 08:47] LABS: BUN Creatinine Ratio 16.6 (10-20); Calcium 9.9 mg/dl (8.6-10.3); Est GFR (African American) 14.3 ml/min; Est GFR (Non-African American) 12.3 ml/min; Potassium 4.7 mmol/L (3.5-5.1)
[2023-09-30] MEDS: cefTRIAXone SODIUM 1,000 MG in DEXTROSE 5 % MINI-B 50 ML IV SCH (09:55)
[2023-09-30] MEDS ORDERED: SCOPOLAMINE 1 MG TDSY TD SCH (11:15)
[2023-09-30] MEDS: allopurinoL 100 MG TAB PO SCH (11:59)
--- NOTE | 2023-09-30 13:48 | Hospitalist Progress Note ---
Date of Service September 30, 2023 Assessment & Plan (1) Acute right flank pain: (2) CKD (chronic kidney disease): (3) Anemia in CKD (chronic kidney disease): (4) DM (diabetes mellitus): (5) Chronic diastolic (congestive) heart failure: (6) Vitamin D deficiency: (7) Secondary hyperparathyroidism: (8) UTI (urinary tract infection): Plan: Abdominal/flank pain DD: Secondary to C. difficile colitis, diverticulitis --CT Abd:No acute infectious or inflammatory findings are identified in the abdomen or pelvis. Colonic diverticulosis with no clear CT evidence of acute diverticulitis. Small foci of gas within the bladder lumen a nonspecific and may be related to instrumentation. Correlate with clinical findings and urinalysis. --R Rib X ray:No acute right-sided rib fractures. --Stool PCR negative --Stool for C. difficile: Gene positive, toxin negative --Mesenteric ultrasound:No significant stenosis within the visualized abdominal vessels. 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 Pain control Advance diet today Appreciate GI input and recommendation Will need colonoscopy eventually--patient currently deferred as per GI Still complains of pain seems to be in the abdominal wall and adjoining chest wall Complains more of nausea than pain No vomiting We will discontinue Zofran and try scopolamine patch Right-sided chest wall pain Pain seems to be like a band starting in the lower thoracic spine area and going around Does not have any rash and/or impaired sensation adjoining the pain distribution area CT of the thoracic spine did not show any significant nerve entrapment Appreciate pain therapy input and recommendation Will try pain medications as per the recommendation If the pain is controlled likely discharge tomorrow Has been getting Ultram as needed for pain control Will increase mobilization likely discharge in a day or 2 Right shoulder/scapula pain Likely musculoskeletal/osteoarthritis --Shoulder X ray: No acute bony abnormality is identified. Appreciate orthopedics input Has osteoarthritis involving the shoulder No more pain in the scapular area Bilateral renal cysts Concern for malignancy Follows with urology Given advanced age, patient preferred no further testing/treatment CKD IV S/p AVF creation Left antecubital cephalic vein fistula Currently not on dialysis i Avoid nephrotoxic agents Renal function at baseline Monitor Hyperparathyroidism Hypercalcemia Secondary to above -Dr. Childress considering Sensipar, but pt is thought to be a poor candidate for parathyroidectomy due to age, frailty. Monitor calcium levels-calcium level remains normal Chronic diastolic CHF HTN HLD Pulmonary hypertension Moderate mitral regurgitation Intermittent LBBB Continue carvedilol and spironolactone Resume Lasix as above Monitor volume status H/O Recurrent UTI Urine culture not contributory Anemia of chronic disease - Hgb of 9.4, patient did not previously tolerate iron supplementation due to constipation, she has received intravenous iron infusions at [facility] once recently Monitor CBC DVT Px: SCDs Heparin SQ CODE STATUS: Full code Admission and Anticipated Discharge Date Admission Date: September 26, 2023 Subjective 09/29/2023 The patient was seen and examined in medical floor She has been complaining of pain in the light lateral chest wall for about last 5 or 6 days She has had back pain before and received injection from Dr. Templeton She has nausea associated with pain but denies any other significant symptoms Pain start lower chest all starting at the spine then goes around the belly 09/30/2023 The patient was seen and examined in medical floor She continues to have nausea without vomiting Her pain seems to be reasonably controlled Review of Systems Review of Systems: All systems reviewed and are unremarkable except as noted below Physical Exam Physical Exam: Lying in bed with acute distress secondary to pain Constitutional: well developed, well nourished, + ill appearing and + obese Eyes: PERRL, conjunctivae normal, anicteric sclerae ENMT: external ear and nose normal, oropharynx normal Neck: trachea midline, no thyromegaly Respiratory: no respiratory distress Auscultation: lungs clear to a uscultation bilaterally Cardiovascular: Rate/Rhythm: regular rate and regular rhythm; not tachycardic Heart Sounds: normal S1 and normal S2; no murmur Extremities: no edema Gastrointestinal (Abdomen): Inspection/Auscultation: normal bowel sounds; abdomen not distended Percussion/Palpation: abdomen soft; abdomen nontender Musculoskeletal: No acute arthritis involving any of the joint Neurologic: normal touch/pain/proprioception and moves all extremities; no focal motor deficits Lymphatic: no cervical or axillary lymphadenopathy Results & Data Results & Data Vital Signs (Past 12 Hours) Vital Signs Temp Pulse Resp BP Pulse Ox O2 Del Method 09/30/23 07:47 Room Air 09/30/23 07:09 36.5 C 76 18 165/71 H 93 Room Air Laboratory Results [facility] 09/30/23 08:14 Sodium 136 Potassium 4.7 Chloride 108 H Carbon Dioxide 20 L BUN 53 H Creatinine 3.20 H Glucose 160 H Calcium 9.9 Medications Administered Current Inpatient Medications Acetaminophen (Acetaminophen 325 Mg Tab) 650 mg PO TID [facility] Stop: 10/27/23 00:00 Last Admin: 09/30/23 08:25 Dose: 650 mg Acetaminophen (Acetaminophen 325 Mg Tab) 325 mg PO Q4H PRN PRN Reason: pain/fever Stop: 10/26/23 22:57 Last Admin: 09/29/23 04:35 Dose: 325 mg Allopurinol (Allopurinol 100 Mg Tab) 200 mg PO QDL [facility] Stop: 10/27/23 11:29 Last Admin: 09/30/23 11:59 Dose: 200 mg Aspirin (Aspirin 81 Mg Ectab) 81 mg PO QAM [facility] Stop: 10/27/23 08:59 Last Admin: 09/30/23 08:27 Dose: 81 mg Carvedilol (Carvedilol 25 Mg Tab) 25 mg PO BIDM [facility] Stop: 10/26/23 16:59 Last Admin: 09/30/23 08:27 Dose: 25 mg Riley Syrup (Riley Syrup 5 Ml Udp) 5 ml PO Q6 [facility] Stop: 10/06/23 17:59 Last Admin: 09/30/23 11:59 Dose: Not Given Dextrose (Dextrose 50% 50 Ml Syringe) 25 - 50 ml IV UD PRN; Protocol PRN Reason: Hypoglycemia Protocol Stop: 10/26/23 14:44 Diclofenac Sodium (Diclofenac Sod 1% Gel 100 Gm Tube) 4 gm EXT QID PRN; Protocol PRN Reason: Pain Stop: 10/26/23 13:05 Docusate Sodium (Docusate Sodium 100 Mg Cap) 100 mg PO BID [facility] Stop: 10/26/23 20:59 Last Admin: 09/30/23 08:26 Dose: Not Given Famotidine (Famotidine 20 Mg Tab) 20 mg PO QDD [facility] Stop: 10/26/23 16:29 Last Admin: 09/29/23 16:18 Dose: 20 mg Glucagon (Glucagon For Inj 1 Mg Vial) 1 mg SQ UD PRN; Protocol PRN Reason: Hypoglycemia Protocol Stop: 10/26/23 14:44 Glucose (Glucose 10 Tab/Tube) 4 - 8 tab PO UD PRN; Protocol PRN Reason: Hypoglycemia Treatment Stop: 10/26/23 14:44 Glucose (Glucose 40% Gel 15 Gm Tube) 15 - 30 gm PO UD PRN; Protocol PRN Reason: Hypoglycemia Protocol Stop: 10/26/23 14:44 Heparin Sodium (Porcine) (Heparin Sod 5,000 Unit/0.5 Ml Vial) 5,000 units SQ Q12 [facility] Stop: 10/26/23 20:59 Last Admin: 09/30/23 08:25 Dose: 5,000 units Hydralazine HCl (Hydralazine Tab 50 Mg Tab) 100 mg PO TID [facility] Stop: 10/26/23 13:59 Last Admin: 09/30/23 08:25 Dose: 100 mg Hydromorphone HCl (Hydromorphone Inj 0.5 Mg/0.5 Ml Syr) 0.5 mg IV Q6H PRN PRN Reason: Pain Stop: 10/10/23 12:31 Last Admin: 09/29/23 09:18 Dose: 0.5 mg Insulin Aspart (Insulin Aspart Per Unit Charge) 0 units SC ACHS [facility] Stop: 10/27/23 17:59 Last Admin: 09/30/23 12:35 Dose: 5 units Insulin Glargine (Lantus Per Unit Charge) 5 units SQ BID [facility] Stop: 10/26/23 20:59 Last Admin: 09/30/23 08:32 Dose: 5 units Isosorbide Dinitrate (Isosorbide Dinitrate 40 Mg Tab) 40 mg PO TID@0700,1200,1700 [facility] Stop: 10/26/23 16:59 Last Admin: 09/30/23 11:59 Dose: 40 mg Lactobacillus Acidophilus (Advanced Probiotic 1250 Mg Capsule) 2 cap PO DAILY [facility] Stop: 10/27/23 08:59 Last Admin: 09/30/23 08:27 Dose: 2 cap Lidocaine (Lidocaine 5% 1 Patch) 1 patch TD DAILY [facility] Stop: 10/27/23 08:59 Last Admin: 09/30/23 08:27 Dose: 1 patch Magnesium Hydroxide (Magnesium Hydroxide Susp 30 Ml Udc) 30 ml PO Q6H PRN PRN Reason: Constipation Stop: 10/27/23 11:32 Miscellaneous (Remove Lidoderm Patch) 1 each N/A DAILY@0859 [facility] Stop: 10/26/23 13:29 Last Admin: 09/30/23 08:28 Dose: 1 each Miscellaneous (Carbohydrates For Hypoglycemia ) 15 - 30 gm PO UD PRN PRN Reason: Hypoglycemia Protocol Stop: 10/26/23 14:44 Miscellaneous (Remove Transderm-Scop Patch) 1 each N/A Q72H [facility] Stop: 11/02/23 11:14 Miscellaneous (Check Scopolamine Patch Placement) 1 each N/A QS [facility] Stop: 10/30/23 15:59 Pantoprazole Sodium (Pantoprazole 40 Mg Tab) 40 mg PO QAM [facility] Stop: 10/27/23 08:59 Last Admin: 09/30/23 08:27 Dose: 40 mg Polyethylene Glycol (Polyethylene (Miralax) 17 Gm Pack) 17 gm PO BID PRN PRN Reason: Constipation Stop: 10/26/23 13:05 Polyethylene Glycol (Polyethylene (Miralax) 17 Gm Pack) 17 gm PO DAILY [facility] Stop: 10/27/23 11:29 Last Admin: 09/30/23 08:26 Dose: Not Given Rosuvastatin Calcium (Rosuvastatin Calcium 10 Mg Tab) 10 mg PO HS [facility] Stop: 10/26/23 20:59 Last Admin: 09/29/23 20:57 Dose: 10 mg Saccharomyces Boulardii (Saccharomyces Boulardii 250 Mg Cap) 250 mg PO QAM [facility] Stop: 10/27/23 08:59 Last Admin: 09/30/23 08:27 Dose: 250 mg Scopolamine (Scopolamine 1 Mg Tdsy) 1 mg TD Q72H [facility] Stop: 10/30/23 11:14 Last Admin: 09/30/23 11:58 Dose: 1 mg Sennosides (Senna 8.6 Mg Tab) 8.6 mg PO HS PRN PRN Reason: Constipation Stop: 10/26/23 13:05 Spironolactone (Spironolactone 25 Mg Tab) 25 mg PO QAM [facility] Stop: 10/27/23 08:59 Last Admin: 09/30/23 08:25 Dose: 25 mg Tramadol HCl (Tramadol Hcl 50 Mg Tablet) 50 mg PO Q6H PRN PRN Reason: Pain Stop: 10/29/23 16:17 Last Admin: 09/30/23 08:32 Dose: 50 mg
[2023-09-30] MEDS: CHECK SCOPOLAMINE PATCH PLACEMENT SCH ×2 (15:26→23:44)
[2023-09-30] MEDS: SODIUM CHLORIDE 0.9% 1,000 ML IV SCH ×2 (15:31→23:44)
[2023-09-30] MEDS: FAMOTIDINE 20 MG TAB PO SCH (16:40)
[2023-09-30] MEDS: ROSUVASTATIN CALCIUM 10 MG TAB PO SCH (20:37)
[2023-10-01] MEDS: ISOSORBIDE DINITRATE 40 MG TAB PO SCH ×3 (06:40→17:26)
[2023-10-01] MEDS: carvediloL 25 MG TAB PO SCH ×2 (08:37→17:26)
[2023-10-01] MEDS: SACCHAROMYCES BOULARDII 250 MG CAP PO SCH (08:37)
[2023-10-01] MEDS: hydrALAZINE TAB 50 MG TAB PO SCH ×3 (08:38→20:08)
[2023-10-01] MEDS: ACETAMINOPHEN 325 MG TAB PO SCH ×3 (08:38→20:09)
[2023-10-01] MEDS: SPIRONOLACTONE 25 MG TAB PO SCH (08:39)
[2023-10-01] MEDS: CHECK SCOPOLAMINE PATCH PLACEMENT SCH ×3 (08:39→23:25)
[2023-10-01] MEDS: ASPIRIN 81 MG ECTAB PO SCH (08:39)
[2023-10-01] MEDS: ADVANCED PROBIOTIC 1250 MG CAPSULE PO SCH (08:40)
[2023-10-01] MEDS: POLYETHYLENE (MIRALAX) 17 GM PACK PO SCH (08:40)
[2023-10-01] MEDS: PANTOprazole 40 MG TAB PO SCH (08:40)
[2023-10-01] MEDS: LIDOCAINE 5% 1 PATCH TD SCH (08:40)
[2023-10-01] MEDS: DOCUSATE SODIUM 100 MG CAP PO SCH ×2 (08:41→20:09)
[2023-10-01] MEDS: HEPARIN SOD 5,000 UNIT/0.5 ML VIAL SQ SCH ×2 (08:42→20:09)
[2023-10-01 08:43] LABS: BUN Creatinine Ratio 16.4 (10-20); Calcium 9.8 mg/dl (8.6-10.3); Creatinine Clr Calc Pharmacy 15.3 ml/min; Est GFR (African American) 15.9 ml/min; Est GFR (Non-African American) 13.7 ml/min; Potassium 4.6 mmol/L (3.5-5.1)
[2023-10-01] MEDS: INSULIN ASPART PER UNIT CHARGE SC SCH ×4 (08:47→21:31)
[2023-10-01] MEDS: LANTUS PER UNIT CHARGE SQ SCH ×2 (08:48→21:31)
[2023-10-01] MEDS: amLODIPine BESYLATE 5 MG TAB PO SCH (09:20)
[2023-10-01] MEDS ORDERED: oxyCODONE HCL IR 5 MG TAB (IMMEDIATE RELEASE) PO PRN (11:59)
[2023-10-01] MEDS ORDERED: COUGH DROP (SUGAR FREE) LOZ 24 LOZ/1 BOX BUCCAL ONE (12:22)
[2023-10-01] MEDS: allopurinoL 100 MG TAB PO SCH (12:24)
--- NOTE | 2023-10-01 12:31 | Hospitalist Progress Note ---
Date of Service October 01, 2023 Assessment & Plan (1) Acute right flank pain: (2) CKD (chronic kidney disease): (3) Anemia in CKD (chronic kidney disease): (4) DM (diabetes mellitus): (5) Chronic diastolic (congestive) heart failure: (6) Vitamin D deficiency: (7) Secondary hyperparathyroidism: (8) UTI (urinary tract infection): Plan: Abdominal/flank pain DD: Secondary to C. difficile colitis, diverticulitis --CT Abd:No acute infectious or inflammatory findings are identified in the abdomen or pelvis. Colonic diverticulosis with no clear CT evidence of acute diverticulitis. Small foci of gas within the bladder lumen a nonspecific and may be related to instrumentation. Correlate with clinical findings and urinalysis. --R Rib X ray:No acute right-sided rib fractures. --Stool PCR negative --Stool for C. difficile: Gene positive, toxin negative --Mesenteric ultrasound:No significant stenosis within the visualized abdominal vessels. 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 Pain control Advance diet today Appreciate GI input and recommendation Will need colonoscopy eventually--patient currently deferred as per GI Still complains of pain seems to be in the abdominal wall and adjoining chest wall Complains more of nausea than pain No vomiting We will discontinue Zofran and try scopolamine patch Remains nauseous and some tenderness in the epigastrium-we will ask GI to further evaluate tomorrow Right-sided chest wall pain Pain seems to be like a band starting in the lower thoracic spine area and going around Does not have any rash and/or impaired sensation adjoining the pain distribution area CT of the thoracic spine did not show any significant nerve entrapment Appreciate pain therapy input and recommendation Will try pain medications as per the recommendation If the pain is controlled likely discharge tomorrow Has been getting Ultram as needed for pain control Will increase mobilization likely discharge in a day or 2 Tramadol has not been helping the pain Right shoulder/scapula pain Likely musculoskeletal/osteoarthritis --Shoulder X ray: No acute bony abnormality is identified. Appreciate orthopedics input Has osteoarthritis involving the shoulder No more pain in the scapular area Tender spot noted at the lower end of the right scapula and adjoining area of the spine We left leg K-pad and change Ultram to oxycodone Continue PT and OT Bilateral renal cysts Concern for malignancy Follows with urology Given advanced age, patient preferred no further testing/treatment CKD IV S/p AVF creation Left antecubital cephalic vein fistula Currently not on dialysis i Avoid nephrotoxic agents Renal function at baseline Received cautious amount of IV fluid yesterday and the creatinine is slightly improved Advised to drink more fluid Hyperparathyroidism Hypercalcemia Secondary to above -Dr. Childress considering Sensipar, but pt is thought to be a poor candidate for parathyroidectomy due to age, frailty. Monitor calcium levels-calcium level remains normal Chronic diastolic CHF HTN HLD Pulmonary hypertension Moderate mitral regurgitation Intermittent LBBB Continue carvedilol and spironolactone Resume Lasix as above Monitor volume status H/O Recurrent UTI Urine culture not contributory Anemia of chronic disease - Hgb of 9.4, patient did not previously tolerate iron supplementation due to constipation, she has received intravenous iron infusions at [facility] once recently Monitor CBC DVT Px: SCDs Heparin SQ CODE STATUS: Full code Admission and Anticipated Discharge Date Admission Date: September 26, 2023 Subjective 09/29/2023 The patient was seen and examined in medical floor She has been complaining of pain in the light lateral chest wall for about last 5 or 6 days She has had back pain before and received injection from Dr. Templeton She has nausea associated with pain but denies any other significant symptoms Pain start lower chest all starting at the spine then goes around the belly 09/30/2023 The patient was seen and examined in medical floor She continues to have nausea without vomiting Her pain seems to be reasonably controlled 10/01/2023 The patient was seen and examined in medical floor She has been complaining of localized back pain over the lower end of right scapula She has been nauseous as well Tramadol does not help the pain and she wants to try oxycodone that was given in the emergency room Review of Systems Review of Systems: All systems reviewed and are unremarkable except as noted below Physical Exam Physical Exam: Lying in bed with acute distress secondary to pain Constitutional: well developed, well nourished, + ill appearing and + obese Eyes: PERRL, conjunctivae normal, anicteric sclerae ENMT: external ear and nose normal, oropharynx normal Neck: trachea midline, no thyromegaly Respiratory: no respiratory distress Auscultation: lungs clear to auscultation bilaterally Cardiovascular: Rate/Rhythm: regular rate and regular rhythm; not tachycardic Heart Sounds: normal S1 and normal S2; no murmur Extremities: no edema Gastrointestinal (Abdomen): Inspection/Auscultation: normal bowel sounds; abdomen not distended Percussion/Palpation: abdomen soft; abdomen nontender Musculoskeletal: No acute arthritis involving any of the joint. Has tender spot over the lower end of the right scapula and adjoining area of the back Neurologic: normal touch/pain/proprioception and moves all extremities; no focal motor deficits Lymphatic: no cervical or axillary lymphadenopathy Results & Data Results & Data Vital Signs (Past 12 Hours) Vital Signs Temp Pulse Resp BP Pulse Ox O2 Del Method 10/01/23 07:09 36.5 C 81 17 193/65 H 98 Room Air Laboratory Results [facility] 10/01/23 07:34 Sodium 137 Potassium 4.6 Chloride 110 H Carbon Dioxide 20 L BUN 48 H Creatinine 2.93 H Glucose 134 H Calcium 9.8 Medications Administered Current Inpatient Medications Acetaminophen (Acetaminophen 325 Mg Tab) 650 mg PO TID [facility] Stop: 10/27/23 00:00 Last Admin: 10/01/23 08:38 Dose: 650 mg Acetaminophen (Acetaminophen 325 Mg Tab) 325 mg PO Q4H PRN PRN Reason: pain/fever Stop: 10/26/23 22:57 Last Admin: 09/29/23 04:35 Dose: 325 mg Allopurinol (Allopurinol 100 Mg Tab) 200 mg PO QDL [facility] Stop: 10/27/23 11:29 Last Admin: 10/01/23 12:24 Dose: 200 mg Amlodipine Besylate (Amlodipine Besylate 5 Mg Tab) 5 mg PO QAM [facility] Stop: 10/31/23 08:59 Last Admin: 10/01/23 09:20 Dose: 5 mg Aspirin (Aspirin 81 Mg Ectab) 81 mg PO QAM [facility] Stop: 10/27/23 08:59 Last Admin: 10/01/23 08:39 Dose: 81 mg Carvedilol (Carvedilol 25 Mg Tab) 25 mg PO BIDM [facility] Stop: 10/26/23 16:59 Last Admin: 10/01/23 08:37 Dose: 25 mg Dextrose (Dextrose 50% 50 Ml Syringe) 25 - 50 ml IV UD PRN; Protocol PRN Reason: Hypoglycemia Protocol Stop: 10/26/23 14:44 Diclofenac Sodium (Diclofenac Sod 1% Gel 100 Gm Tube) 4 gm EXT QID PRN; Protocol PRN Reason: Pain Stop: 10/26/23 13:05 Docusate Sodium (Docusate Sodium 100 Mg Cap) 100 mg PO BID [facility] Stop: 10/26/23 20:59 Last Admin: 10/01/23 08:41 Dose: Not Given Famotidine (Famotidine 20 Mg Tab) 20 mg PO QDD [facility] Stop: 10/26/23 16:29 Last Admin: 09/30/23 16:40 Dose: 20 mg Glucagon (Glucagon For Inj 1 Mg Vial) 1 mg SQ UD PRN; Protocol PRN Reason: Hypoglycemia Protocol Stop: 10/26/23 14:44 Glucose (Glucose 10 Tab/Tube) 4 - 8 tab PO UD PRN; Protocol PRN Reason: Hypoglycemia Treatment Stop: 10/26/23 14:44 Glucose (Glucose 40% Gel 15 Gm Tube) 15 - 30 gm PO UD PRN; Protocol PRN Reason: Hypoglycemia Protocol Stop: 10/26/23 14:44 Heparin Sodium (Porcine) (Heparin Sod 5,000 Unit/0.5 Ml Vial) 5,000 units SQ Q12 [facility] Stop: 10/26/23 20:59 Last Admin: 10/01/23 08:42 Dose: 5,000 units Hydralazine HCl (Hydralazine Tab 50 Mg Tab) 100 mg PO TID [facility] Stop: 10/26/23 13:59 Last Admin: 10/01/23 08:38 Dose: 100 mg Hydromorphone HCl (Hydromorphone Inj 0.5 Mg/0.5 Ml Syr) 0.5 mg IV Q6H PRN PRN Reason: Pain Stop: 10/10/23 12:31 Last Admin: 09/29/23 09:18 Dose: 0.5 mg Insulin Aspart (Insulin Aspart Per Unit Charge) 0 units SC ACHS [facility] Stop: 10/27/23 17:59 Last Admin: 10/01/23 12:27 Dose: 2 units Insulin Glargine (Lantus Per Unit Charge) 5 units SQ BID [facility] Stop: 10/26/23 20:59 Last Admin: 10/01/23 08:48 Dose: 5 units Isosorbide Dinitrate (Isosorbide Dinitrate 40 Mg Tab) 40 mg PO TID@0700,1200,1700 [facility] Stop: 10/26/23 16:59 Last Admin: 10/01/23 12:24 Dose: 40 mg Lactobacillus Acidophilus (Advanced Probiotic 1250 Mg Capsule) 2 cap PO DAILY [facility] Stop: 10/27/23 08:59 Last Admin: 10/01/23 08:40 Dose: 2 cap Lidocaine (Lidocaine 5% 1 Patch) 1 patch TD DAILY [facility] Stop: 10/27/23 08:59 Last Admin: 10/01/23 08:40 Dose: 1 patch Magnesium Hydroxide (Magnesium Hydroxide Susp 30 Ml Udc) 30 ml PO Q6H PRN PRN Reason: Constipation Stop: 10/27/23 11:32 Miscellaneous (Remove Lidoderm Patch) 1 each N/A DAILY@0859 [facility] Stop: 10/26/23 13:29 Last Admin: 10/01/23 08:41 Dose: 1 each Miscellaneous (Carbohydrates For Hypoglycemia ) 15 - 30 gm PO UD PRN PRN Reason: Hypoglycemia Protocol Stop: 10/26/23 14:44 Miscellaneous (Remove Transderm-Scop Patch) 1 each N/A Q72H [facility] Stop: 11/02/23 11:14 Miscellaneous (Check Scopolamine Patch Placement) 1 each N/A QS [facility] Stop: 10/30/23 15:59 Last Admin: 10/01/23 08:39 Dose: 1 each Oxycodone HCl (Oxycodone Hcl Ir 5 Mg Tab (Immediate Release)) 5 mg PO Q6H PRN PRN Reason: Pain Stop: 10/15/23 11:58 Pantoprazole Sodium (Pantoprazole 40 Mg Tab) 40 mg PO QAM [facility] Stop: 10/27/23 08:59 Last Admin: 10/01/23 08:40 Dose: 40 mg Polyethylene Glycol (Polyethylene (Miralax) 17 Gm Pack) 17 gm PO BID PRN PRN Reason: Constipation Stop: 10/26/23 13:05 Polyethylene Glycol (Polyethylene (Miralax) 17 Gm Pack) 17 gm PO DAILY [facility] Stop: 10/27/23 11:29 Last Admin: 10/01/23 08:40 Dose: Not Given Rosuvastatin Calcium (Rosuvastatin Calcium 10 Mg Tab) 10 mg PO HS [facility] Stop: 10/26/23 20:59 Last Admin: 09/30/23 20:37 Dose: 10 mg Saccharomyces Boulardii (Saccharomyces Boulardii 250 Mg Cap) 250 mg PO QAM [facility] Stop: 10/27/23 08:59 Last Admin: 10/01/23 08:37 Dose: 250 mg Scopolamine (Scopolamine 1 Mg Tdsy) 1 mg TD Q72H [facility] Stop: 10/30/23 11:14 Last Admin: 09/30/23 11:58 Dose: 1 mg Sennosides (Senna 8.6 Mg Tab) 8.6 mg PO HS PRN PRN Reason: Constipation Stop: 10/26/23 13:05 Spironolactone (Spironolactone 25 Mg Tab) 25 mg PO QAM [facility] Stop: 10/27/23 08:59 Last Admin: 10/01/23 08:39 Dose: 25 mg
[2023-10-01] MEDS ORDERED: SODIUM CHLORIDE 0.65% NA SOLN 45 ML (OCEAN) ONE (12:39)
[2023-10-01] MEDS: FAMOTIDINE 20 MG TAB PO SCH (17:27)
[2023-10-01] MEDS: ROSUVASTATIN CALCIUM 10 MG TAB PO SCH (20:09)
[2023-10-02] MEDS: ISOSORBIDE DINITRATE 40 MG TAB PO SCH ×3 (06:16→16:50)
[2023-10-02] MEDS: INSULIN ASPART PER UNIT CHARGE SC SCH ×2 (08:30→12:19)
[2023-10-02] MEDS: carvediloL 25 MG TAB PO SCH ×2 (08:32→16:48)
[2023-10-02] MEDS: ASPIRIN 81 MG ECTAB PO SCH (08:32)
[2023-10-02] MEDS: SACCHAROMYCES BOULARDII 250 MG CAP PO SCH (08:33)
[2023-10-02] MEDS: SPIRONOLACTONE 25 MG TAB PO SCH (08:33)
[2023-10-02] MEDS: ACETAMINOPHEN 325 MG TAB PO SCH ×2 (08:33→14:44)
[2023-10-02] MEDS: ADVANCED PROBIOTIC 1250 MG CAPSULE PO SCH (08:33)
[2023-10-02] MEDS: hydrALAZINE TAB 50 MG TAB PO SCH ×2 (08:34→14:44)
[2023-10-02] MEDS: HEPARIN SOD 5,000 UNIT/0.5 ML VIAL SQ SCH (08:34)
[2023-10-02] MEDS: PANTOprazole 40 MG TAB PO SCH (08:34)
[2023-10-02] MEDS: amLODIPine BESYLATE 5 MG TAB PO SCH (08:34)
[2023-10-02] MEDS: LIDOCAINE 5% 1 PATCH TD SCH (08:35)
[2023-10-02] MEDS: POLYETHYLENE (MIRALAX) 17 GM PACK PO SCH (08:35)
[2023-10-02] MEDS: CHECK SCOPOLAMINE PATCH PLACEMENT SCH (08:35)
[2023-10-02] MEDS: DOCUSATE SODIUM 100 MG CAP PO SCH (08:35)
[2023-10-02] MEDS: LANTUS PER UNIT CHARGE SQ SCH (08:38)
[2023-10-02] MEDS: allopurinoL 100 MG TAB PO SCH (12:21)
--- NOTE | 2023-10-02 13:29 | Hospitalist Progress Note ---
Date of Service October 02, 2023 Assessment & Plan (1) Acute right flank pain: (2) CKD (chronic kidney disease): (3) Anemia in CKD (chronic kidney disease): (4) DM (diabetes mellitus): (5) Chronic diastolic (congestive) heart failure: (6) Vitamin D deficiency: (7) Secondary hyperparathyroidism: (8) UTI (urinary tract infection): Plan: Abdominal/flank pain DD: Secondary to C. difficile colitis, diverticulitis --CT Abd:No acute infectious or inflammatory findings are identified in the abdomen or pelvis. Colonic diverticulosis with no clear CT evidence of acute diverticulitis. Small foci of gas within the bladder lumen a nonspecific and may be related to instrumentation. Correlate with clinical findings and urinalysis. --R Rib X ray:No acute right-sided rib fractures. --Stool PCR negative --Stool for C. difficile: Gene positive, toxin negative --Mesenteric ultrasound:No significant stenosis within the visualized abdominal vessels. 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 Pain control Advance diet today Appreciate GI input and recommendation Will need colonoscopy eventually--patient currently deferred as per GI Still complains of pain seems to be in the abdominal wall and adjoining chest wall Complains more of nausea than pain No vomiting We will discontinue Zofran and try scopolamine patch Remains nauseous and some tenderness in the epigastrium-we will ask GI to further evaluate tomorrow Denies any more pain and she will be discharged home this afternoon Right-sided chest wall pain Pain seems to be like a band starting in the lower thoracic spine area and going around Does not have any rash and/or impaired sensation adjoining the pain distribution area CT of the thoracic spine did not show any significant nerve entrapment Appreciate pain therapy input and recommendation Will try pain medications as per the recommendation If the pain is controlled likely discharge tomorrow Has been getting Ultram as needed for pain control Will increase mobilization likely discharge in a day or 2 Tramadol has not been helping the pain No localized tenderness over the right lateral chest wall Right shoulder/scapula pain Likely musculoskeletal/osteoarthritis --Shoulder X ray: No acute bony abnormality is identified. Appreciate orthopedics input Has osteoarthritis involving the shoulder No more pain in the scapular area Tender spot noted at the lower end of the right scapula and adjoining area of the spine We left leg K-pad and change Ultram to oxycodone Continue PT and OT-recommended home No more infrascapular pain Bilateral renal cysts Concern for malignancy Follows with urology Given advanced age, patient preferred no further testing/treatment CKD IV S/p AVF creation Left antecubital cephalic vein fistula Currently not on dialysis i Avoid nephrotoxic agents Renal function at baseline Received cautious amount of IV fluid yesterday and the creatinine is slightly improved Advised to drink more fluid Her creatinine is improved a little bit at 2.93 compared with 3.20 yesterday She was advised to drink more fluid Hyperparathyroidism Hypercalcemia Secondary to above -Dr. Childress considering Sensipar, but pt is thought to be a poor candidate for parathyroidectomy due to age, frailty. Monitor calcium levels-calcium level remains normal Chronic diastolic CHF HTN HLD Pulmonary hypertension Moderate mitral regurgitation Intermittent LBBB Continue carvedilol and spironolactone Resume Lasix as above Monitor volume status H/O Recurrent UTI Urine culture not contributory Anemia of chronic disease - Hgb of 9.4, patient did not previously tolerate iron supplementation due to constipation, she has received intravenous iron infusions at [facility] once recently Monitor CBC DVT Px: SCDs Heparin SQ CODE STATUS: Full code Admission and Anticipated Discharge Date Admission Date: September 26, 2023 Subjective 09/29/2023 The patient was seen and examined in medical floor She has been complaining of pain in the light lateral chest wall for about last 5 or 6 days She has had back pain before and received injection from Dr. Templeton She has nausea associated with pain but denies any other significant symptoms Pain start lower chest all starting at the spine then goes around the belly 09/30/2023 The patient was seen and examined in medical floor She continues to have nausea without vomiting Her pain seems to be reasonably controlled 10/01/2023 The patient was seen and examined in medical floor She has been complaining of localized back pain over the lower end of right scapula She has been nauseous as well Tramadol does not help the pain and she wants to try oxycodone that was given in the emergency room 10/02/2023 The patient was seen and examined in medical floor She has been much better today and denies any back pain Her nausea is improved She is willing to go home this afternoon Review of Systems Review of Systems: All systems reviewed and are unremarkable except as noted below Physical Exam Physical Exam: Lying in bed with acute distress secondary to pain Constitutional: well developed, well nourished, + ill appearing and + obese Eyes: PERRL, conjunctivae normal, anicteric sclerae ENMT: external ear and nose normal, oropharynx normal Neck: trachea midline, no thyromegaly Respiratory: no respiratory distress Auscultation: lungs clear to auscultation bilaterally Cardiovascular: Rate/Rhythm: regular rate and regular rhythm; not tachycardic Heart Sounds: normal S1 and normal S2; no murmur Extremities: no edema Gastrointestinal (Abdomen): Inspection/Auscultation: normal bowel sounds; abdomen not distended Percussion/Palpation: abdomen soft; abdomen nontender Musculoskeletal: No localized tenderness noted over the infra scapular region on the right side Neurologic: normal touch/pain/proprioception and moves all extremities; no focal motor deficits Lymphatic: no cervical or axillary lymphadenopathy Results & Data Results & Data Vital Signs (Past 12 Hours) Vital Signs Temp Pulse Resp BP Pulse Ox O2 Del Method O2 Flow Rate 10/02/23 08:45 Room Air 10/02/23 07:10 36.3 C L 67 16 127/64 98 Nasal Cannula 2 10/02/23 06:13 36.5 C 69 18 150/71 H 97 Nasal Cannula 2 Medications Administered Current Inpatient Medications Acetaminophen (Acetaminophen 325 Mg Tab) 650 mg PO TID [facility] Stop: 10/27/23 00:00 Last Admin: 10/02/23 08:33 Dose: 650 mg Acetaminophen (Acetaminophen 325 Mg Tab) 325 mg PO Q4H PRN PRN Reason: pain/fever Stop: 10/26/23 22:57 Last Admin: 09/29/23 04:35 Dose: 325 mg Allopurinol (Allopurinol 100 Mg Tab) 200 mg PO QDL [facility] Stop: 10/27/23 11:29 Last Admin: 10/02/23 12:21 Dose: 200 mg Amlodipine Besylate (Amlodipine Besylate 5 Mg Tab) 5 mg PO QAM [facility] Stop: 10/31/23 08:59 Last Admin: 10/02/23 08:34 Dose: 5 mg Aspirin (Aspirin 81 Mg Ectab) 81 mg PO QAM [facility] Stop: 10/27/23 08:59 Last Admin: 10/02/23 08:32 Dose: 81 mg Carvedilol (Carvedilol 25 Mg Tab) 25 mg PO BIDM [facility] Stop: 10/26/23 16:59 Last Admin: 10/02/23 08:32 Dose: 25 mg Dextrose (Dextrose 50% 50 Ml Syringe) 25 - 50 ml IV UD PRN; Protocol PRN Reason: Hypoglycemia Protocol Stop: 10/26/23 14:44 Diclofenac Sodium (Diclofenac Sod 1% Gel 100 Gm Tube) 4 gm EXT QID PRN; Protocol PRN Reason: Pain Stop: 10/26/23 13:05 Docusate Sodium (Docusate Sodium 100 Mg Cap) 100 mg PO BID [facility] Stop: 10/26/23 20:59 Last Admin: 10/02/23 08:35 Dose: Not Given Famotidine (Famotidine 20 Mg Tab) 20 mg PO QDD [facility] Stop: 10/26/23 16:29 Last Admin: 10/01/23 17:27 Dose: 20 mg Glucagon (Glucagon For Inj 1 Mg Vial) 1 mg SQ UD PRN; Protocol PRN Reason: Hypoglycemia Protocol Stop: 10/26/23 14:44 Glucose (Glucose 10 Tab/Tube) 4 - 8 tab PO UD PRN; Protocol PRN Reason: Hypoglycemia Treatment Stop: 10/26/23 14:44 Glucose (Glucose 40% Gel 15 Gm Tube) 15 - 30 gm PO UD PRN; Protocol PRN Reason: Hypoglycemia Protocol Stop: 10/26/23 14:44 Heparin Sodium (Porcine) (Heparin Sod 5,000 Unit/0.5 Ml Vial) 5,000 units SQ Q12 [facility] Stop: 10/26/23 20:59 Last Admin: 10/02/23 08:34 Dose: Not Given Hydralazine HCl (Hydralazine Tab 50 Mg Tab) 100 mg PO TID [facility] Stop: 10/26/23 13:59 Last Admin: 10/02/23 08:34 Dose: 100 mg Hydromorphone HCl (Hydromorphone Inj 0.5 Mg/0.5 Ml Syr) 0.5 mg IV Q6H PRN PRN Reason: Pain Stop: 10/10/23 12:31 Last Admin: 09/29/23 09:18 Dose: 0.5 mg Insulin Aspart (Insulin Aspart Per Unit Charge) 0 units SC ACHS [facility] Stop: 10/27/23 17:59 Last Admin: 10/02/23 12:19 Dose: 7 units Insulin Glargine (Lantus Per Unit Charge) 5 units SQ BID [facility] Stop: 10/26/23 20:59 Last Admin: 10/02/23 08:38 Dose: 5 units Isosorbide Dinitrate (Isosorbide Dinitrate 40 Mg Tab) 40 mg PO TID@0700,1200,1700 [facility] Stop: 10/26/23 16:59 Last Admin: 10/02/23 12:21 Dose: 40 mg Lactobacillus Acidophilus (Advanced Probiotic 1250 Mg Capsule) 2 cap PO DAILY [facility] Stop: 10/27/23 08:59 Last Admin: 10/02/23 08:33 Dose: 2 cap Lidocaine (Lidocaine 5% 1 Patch) 1 patch TD DAILY [facility] Stop: 10/27/23 08:59 Last Admin: 10/02/23 08:35 Dose: 1 patch Magnesium Hydroxide (Magnesium Hydroxide Susp 30 Ml Udc) 30 ml PO Q6H PRN PRN Reason: Constipation Stop: 10/27/23 11:32 Miscellaneous (Remove Lidoderm Patch) 1 each N/A DAILY@0859 [facility] Stop: 10/26/23 13:29 Last Admin: 10/02/23 08:35 Dose: 1 each Miscellaneous (Carbohydrates For Hypoglycemia ) 15 - 30 gm PO UD PRN PRN Reason: Hypoglycemia Protocol Stop: 10/26/23 14:44 Miscellaneous (Remove Transderm-Scop Patch) 1 each N/A Q72H [facility] Stop: 11/02/23 11:14 Miscellaneous (Check Scopolamine Patch Placement) 1 each N/A QS [facility] Stop: 10/30/23 15:59 Last Admin: 10/02/23 08:35 Dose: 1 each Oxycodone HCl (Oxycodone Hcl Ir 5 Mg Tab (Immediate Release)) 5 mg PO Q6H PRN PRN Reason: Pain Stop: 10/15/23 11:58 Pantoprazole Sodium (Pantoprazole 40 Mg Tab) 40 mg PO QAM [facility] Stop: 10/27/23 08:59 Last Admin: 10/02/23 08:34 Dose: 40 mg Polyethylene Glycol (Polyethylene (Miralax) 17 Gm Pack) 17 gm PO BID PRN PRN Reason: Constipation Stop: 10/26/23 13:05 Polyethylene Glycol (Polyethylene (Miralax) 17 Gm Pack) 17 gm PO DAILY [facility] Stop: 10/27/23 11:29 Last Admin: 10/02/23 08:35 Dose: Not Given Rosuvastatin Calcium (Rosuvastatin Calcium 10 Mg Tab) 10 mg PO HS [facility] Stop: 10/26/23 20:59 Last Admin: 10/01/23 20:09 Dose: 10 mg Saccharomyces Boulardii (Saccharomyces Boulardii 250 Mg Cap) 250 mg PO QAM [facility] Stop: 10/27/23 08:59 Last Admin: 10/02/23 08:33 Dose: 250 mg Scopolamine (Scopolamine 1 Mg Tdsy) 1 mg TD Q72H [facility] Stop: 10/30/23 11:14 Last Admin: 09/30/23 11:58 Dose: 1 mg Sennosides (Senna 8.6 Mg Tab) 8.6 mg PO HS PRN PRN Reason: Constipation Stop: 10/26/23 13:05 Spironolactone (Spironolactone 25 Mg Tab) 25 mg PO QAM [facility] Stop: 10/27/23 08:59 Last Admin: 10/02/23 08:33 Dose: 25 mg
--- NOTE | 2023-10-03 08:33 | Discharge Summary ---
Date of Service October 03, 2023 Admission HPI Per Admitting Provider This is an 87-year-old female with PMHx of CKD stage IV with recent AV fistula placement by Dr. Pacheco on 09/18 in anticipation of needs for hemodialysis, HTN, HLD, chronic diastolic CHF, DM type II, chronic anemia, mild hypercalcemia, history of C. difficile, diverticulosis, Vit D deficiency, who presents to the hospital with right-sided flank pain which radiates around the front up into the epigastric region. Patient states that her pain has been constant/chronic in nature x 2 days and has not been relieved. She received a dose of Tylenol and 2 doses of Dilaudid in the ER with improvement in her pain to 7/10 at present. Pt reports a fullness in abdomen, feels bloated, with pressure. About 1 week ago she had 5 days of diarrhea and then had 2 days of what she calls constipation. Pt took a stool softener and milk of magnesia 2 nights ago to help move her bowels. She had an IV iron infusion recently and thinks this caused constipation, as she previously took oral iron but got severely constipated with taking it. She has had a poor appetite and nausea for past 2 days, is tolerating about 2 glasses of water per day and has been taking her medications as instructed. Last night she had episode where she woke up soaking wet, and feels chills today but did not take her temperature at home. She uses a walker at baseline due to chronic vertigo, and is at a fall risk. Patient is not on any form of anticoagulation for such. She lives at home with her 1 son who is not present at bedside, but another one of her sons is here and supports the history. Admission Exam Per Admitting Provider Physical Exam: General: awake, alert, no apparent distress, shaking/rigoring at times Head: Normocephalic, atraumatic ENT: PERRL, EOMI, no pharyngeal exudate, mucous membranes moist Chest: Clear to auscultation, on room air, no adventitious breath sounds Cardiac: Regular rate and rhythm, no murmur, no JVD, normal peripheral pulses, good capillary refill Abdominal: NABS x 4 quadrants, soft, +distended, +tender to palpation in epigastric region, no CVA tenderness, + tenderness with R sided paraspinal muscles on exam is reproducible, no rebound or guarding Extremities: Normal inspection, no peripheral edema or erythema, calfs nontender to palpation Psych: Normal mood and affect Neuro: AAO x 3, strength intact bilaterally and rated 5/5, no motor deficits, speech is clear, no peripheral sensory deficits Principal Diagnosis Right upper back pain, likely musculoskeletal Discharge Exam Lying in bed with acute distress secondary to pain Constitutional well developed, well nourished, + ill appearing and + obese Eyes PERRL, conjunctivae normal, anicteric sclerae ENMT external ear and nose normal, oropharynx normal Neck trachea midline, no thyromegaly Respiratory no respiratory distress Auscultation: lungs clear to auscultation bilaterally Cardiovascular Rate/Rhythm: regular rate and regular rhythm; not tachycardic Heart Sounds: normal S1 and normal S2; no murmur Extremities: no edema Gastrointestinal (Abdomen) Inspection/Auscultation: normal bowel sounds; abdomen not distended Percussion/Palpation: abdomen soft; abdomen nontender Neurologic normal touch/pain/proprioception and moves all extremities; no focal motor defic its Lymphatic no cervical or axillary lymphadenopathy Discharge Data Allergies Allergy/AdvReac Type Severity Reaction Status Date / Time morphine AdvReac Intermediate Confusion Verified 09/26/23 10:53 phenylpropanolamine AdvReac Intermediate INTOLERANCE Verified 09/26/23 10:53 spironolactone AdvReac Intermediate weakness Verified 09/26/23 10:53 Consultations 09/26/23 11:28 ED Decision to Admit Stat 09/27/23 12:54 Consult Gastroenterology Routine 09/28/23 12:46 Consult Orthopedic Surgery Routine 09/29/23 13:16 Consult Pain Management Routine Ordered Studies 09/26/23 08:22 CT abd pelvis wo con Stat 09/27/23 12:52 US duplex mesenteric Routine 09/29/23 13:13 CT thoracic spine wo con Urgent Hospital Course (1) Acute right flank pain: (2) CKD (chronic kidney disease): (3) Anemia in CKD (chronic kidney disease): (4) DM (diabetes mellitus): (5) Chronic diastolic (congestive) heart failure: (6) Vitamin D deficiency: (7) Secondary hyperparathyroidism: (8) UTI (urinary tract infection): Abdominal/flank pain DD: Secondary to C. difficile colitis, diverticulitis --CT Abd:No acute infectious or inflammatory findings are identified in the abdomen or pelvis. Colonic diverticulosis with no clear CT evidence of acute diverticulitis. Small foci of gas within the bladder lumen a nonspecific and may be related to instrumentation. Correlate with clinical findings and urinalysis. --R Rib X ray:No acute right-sided rib fractures. --Stool PCR negative --Stool for C. difficile: Gene positive, toxin negative --Mesenteric ultrasound:No significant stenosis within the visualized abdominal vessels. 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 Pain control Advance diet today Appreciate GI input and recommendation Will need colonoscopy eventually--patient currently deferred as per GI Still complains of pain seems to be in the abdominal wall and adjoining chest wall Complains more of nausea than pain No vomiting We will discontinue Zofran and try scopolamine patch Remains nauseous and some tenderness in the epigastrium-we will ask GI to further evaluate tomorrow Denies any more pain and she will be discharged home this afternoon Right-sided chest wall pain Pain seems to be like a band starting in the lower thoracic spine area and going around Does not have any rash and/or impaired sensation adjoining the pain distribution area CT of the thoracic spine did not show any significant nerve entrapment Appreciate pain therapy input and recommendation Will try pain medications as per the recommendation If the pain is controlled likely discharge tomorrow Has been getting Ultram as needed for pain control Will increase mobilization likely discharge in a day or 2 Tramadol has not been helping the pain No localized tenderness over the right lateral chest wall Right shoulder/scapula pain Likely musculoskeletal/osteoarthritis --Shoulder X ray: No acute bony abnormality is identified. Appreciate orthopedics input Has osteoarthritis involving the shoulder No more pain in the scapular area Tender spot noted at the lower end of the right scapula and adjoining area of the spine We left leg K-pad and change Ultram to oxycodone Continue PT and OT-recommended home No more infrascapular pain Bilateral renal cysts Concern for malignancy Follows with urology Given advanced age, patient preferred no further testing/treatment CKD IV S/p AVF creation Left antecubital cephalic vein fistula Currently not on dialysis i Avoid nephrotoxic agents Renal function at baseline Received cautious amount of IV fluid yesterday and the creatinine is slightly improved Advised to drink more fluid Her creatinine is improved a little bit at 2.93 compared with 3.20 yesterday She was advised to drink more fluid Hyperparathyroidism Hypercalcemia Secondary to above -Dr. Childress considering Sensipar, but pt is thought to be a poor candidate for parathyroidectomy due to age, frailty. Monitor calcium levels-calcium level remains normal Chronic diastolic CHF HTN HLD Pulmonary hypertension Moderate mitral regurgitation Intermittent LBBB Continue carvedilol and spironolactone Resume Lasix as above Monitor volume status H/O Recurrent UTI Urine culture not contributory Anemia of chronic disease - Hgb of 9.4, patient did not previously tolerate iron supplementation due to constipation, she has received intravenous iron infusions at [facility] once recently Monitor CBC DVT Px: SCDs Heparin SQ CODE STATUS: Full code Total Time Total Time Spent Total Time Spent (In Minutes): 35 minutes Discharge Plan Discharge Items Patient Disposition: Home - Self-Care Reason For Visit: R FLANK PAIN Discharge Diagnosis: Right upper back pain, likely musculoskeletal Activity: Resume your previous activity Non-emergency contact: Primary Care Provider Call non-emergency contact if: you have any medication questions and your symptoms worsen Follow-up/Referrals: Fox Ramirez MD [Primary Care Provider] - (Date & Time 10/04/2023 11:20 AM Provider Fox Ramirez MD [facility] ) Diet: Carb Consistent or DM2 and Heart Healthy Addtl Attending Provider Instructions: Please take precautions to avoid falls Take your medications as advised Try to use Tylenol and/or ibuprofen for pain control Please keep appointment with your healthcare provider Pending Studies at Discharge: No Stand-Alone Forms: My [employer], Smoking Cessation Medications and DC Order Prescriptions: New amlodipine [Norvasc] 5 mg Tablet 5 mg PO QAM Qty: 30 0RF lidocaine 5 % Adhesive Patch,Medicated 1 patch transdermal DAILY Qty: 30 0RF Continued furosemide 20 mg tablet 20 mg PO Q OTHER DAY Qty: 45 3RF ondansetron 4 mg tablet,disintegrating 4 mg PO Q6H PRN (Reason: nausea and vomiting) Qty: 14 0RF lidocaine [Salonpas (lidocaine)] 4 % Adhesive Patch,Medicated 1 patch TOPICAL DAILY aspirin 81 mg Tablet,Delayed Release (Dr/Ec) 81 mg PO QAM rosuvastatin 10 mg tablet 10 mg PO HS famotidine [Pepcid] 20 mg Tablet 20 mg PO QDD Rx Instructions: take with supper hydralazine 100 mg tablet 100 mg PO TID carvedilol 25 mg tablet 25 mg PO BIDM acetaminophen [Tylenol Extra Strength] 500 mg Tablet 1,000 mg PO BID polyethylene glycol 3350 [Miralax] 17 gram/dose Powder 17 g PO BID PRN (Reason: Constipation) Rx Instructions: HOLD FOR LOOSE STOOLS allopurinol 100 mg tablet 200 mg PO QDL spironolactone 25 mg tablet 25 mg PO QAM sennosides [Senokot] 8.6 mg Tablet 8.6 mg PO HS PRN (Reason: Constipation) docusate sodium 100 mg capsule 100 mg PO BID diclofenac sodium 1 % gel 4 g TOP QID PRN (Reason: Pain) Rx Instructions: apply to bilateral knees cyanocobalamin (vitamin B-12) 500 mcg Tablet 500 mcg PO QAM Qty: 30 0RF Saccharomyces boulardii [Florastor] 250 mg capsule 250 mg PO QAM Humulin 70/30 U-100 Insulin 100 unit/mL (70-30) suspension See Rx Instructions .ROUTE .COMPLEX Patient Comments: takes 70 units in am takes 25-30 units pm Rx Instructions: TAKES 70 UNITS BEFORE BREAKFAST, THEN 30 UNITS BEFORE DINNER. omeprazole 20 mg capsule,delayed release(DR/EC) 20 mg PO QAM isosorbide dinitrate 20 mg tablet 40 mg PO TID Discharge Orders: Discharge Order (Routine); Ordered 10/02/23 Ordered By: Rose Warren Admission Data Admit Date/Time: 09/26/23 11:52 Attending Provider: Rose Warren Admit Provider: Brunilda Rodriguez Primary Care Provider: Fox Ramirez Other Providers: Fuentes Dave; Lissy Fernandez; Tyrell Sumner; Carol Christianson; Kristine Boykin; Soco Suggs; Indy Beauchamp; Oscar Prajapati; Haris Scanlon; Jacki Rodriguez; Monica Harrington; Nakia Mario S; Wes Castillo; Joanna Frost; Kelly Soto; Chantel Koenig; Lauren Jon; Nj Metzger; Toni Concepcion; Magen Falcon; Kayla Bonds; Darek Jones Jr; Sean Naranjo; Yasmine Urban Other Interventions: Discharge Summary Assessment (RN) Last Done: 10/02/23 16:36
--- NOTE | 2023-10-05 15:24 | Coding Query ---
CODING QUERY Do not know except the discussion that is in the chart. To promote full compliance with coding requirements relating to patient care, provider participation is requested in all cases of surgical coder uncertainty. Please assist us with the question(s) below: Coding Question(s): Please document, if known or suspected, the etiology of patient's admitting symptom of abdominal pain. Thanks for your help ! Patricio Darden [facility] Physician's Response(s): Principal Diagnosis: "that condition established after study, to be chiefly responsible for occasioning the admission of the patient to the hospital for care." Co-Existing Principal Diagnosis: "when two or more diagnoses equally meet the criteria for principal diagnosis as determined by the circumstances of admission, diagnostic work up, and/or therapy provided, and the Alphabetic Index, Tabular List, or another coding guideline does not provide sequencing direction, any one of the diagnoses may be sequenced first." "When the physician has documented what appears to be a current diagnosis in the body of the record, but has not included the diagnosis in the final diagnostic statement, the physician should be asked whether the diagnosis should be added." (Source Coding Clinic 2 QTR90. p3-4) JORDY
== END 2023-10-02 17:45 | disposition home or self-care (01) | DRG 552 ==
LOC: ED 08:05 → EDINP 11:52 → SUATTDRO 11:52 → 3N 14:46

== ENCOUNTER 2023-10-10 19:23 | Inpatient (IN) ==
[2023-10-10] MEDS ORDERED: ONDANSETRON INJ 2 MG/ML 2 ML VIAL IV STA (19:33)
[2023-10-10 19:50] LABS: Basophils # (auto) 0.05 K/uL (0.00-0.20); Basophils % (auto) 0.3 %; Eosinophils # (auto) 0.01 K/uL (0.00-0.50); Eosinophils % (auto) 0.1 %; Hematocrit (blood only) 31.3 % (37.0-47.0); Hemoglobin 9.9 g/dl (12.0-16.0); Immature Granulocytes # (auto) 0.11 K/uL (0.01-0.20); Immature Granulocytes % (auto) 0.6 %; Lymphocytes # (auto) 0.79 K/uL (1.20-3.40); Lymphocytes % (auto) 4.2 %; Mean Corpuscular Hemoglobin 31.1 pg (25.0-34.0); Mean Corpuscular Hgb Conc 31.6 g/dL (32.0-36.0); Mean Corpuscular Volume 98.4 fL (80.0-100.0); Mean Platelet Volume 9.5 fL (9.4-12.4); Monocytes # (auto) 1.28 K/uL (0.11-0.59); Monocytes % (auto) 6.8 %; Neutrophils # (auto) 16.62 K/uL (1.40-6.50); Platelet Count 248 K/uL (130-400); RDW Coefficient of Variation 14.8 % (11.5-14.5); RDW Standard Deviation 53.9 fL (36.4-46.3); Red Blood Count 3.18 M/uL (4.20-5.40); White Blood Count 18.86 K/ul (4.8-10.8)
[2023-10-10 20:08] LABS: Alanine Aminotransferase 11 U/L (7-52); Albumin Level 4.3 gm/dl (3.4-5.0); Alkaline Phosphatase 52 U/L (34-104); Anion Gap 11 (3-11); Aspartate Aminotransferase 15 U/L (13-39); BUN Creatinine Ratio 15.2 (10-20); Bilirubin,Total 0.9 mg/dl (0.2-1.0); Blood Urea Nitrogen 47 mg/dl (6-23); Carbon Dioxide 20 mmol/L (21-32); Chloride 105 mmol/L (98-107); Est GFR (African American) 14.9 ml/min; Est GFR (Non-African American) 12.8 ml/min; Globulin 2.2 gm/dl (2.5-4.0); Glucose 233 mg/dl (70-99(Fasting)); Potassium 4.4 mmol/L (3.5-5.1); Sodium 136 mmol/L (136-145); Total Protein 6.5 gm/dl (6.0-8.3)
[2023-10-10 20:30] LABS: Appearance Urine Clear (Clear); Bacteria Urine Automated Negative (Negative); Bilirubin Urine Negative (Negative); Blood Urine Negative (Negative); Color Urine Yellow; Epithelial Cell Urine Auto >30 /lpf (0-5); Glucose Urine UA Negative (Negative); Ketones Urine Negative (Negative); Leukocyte Esterase Urine Negative (Negative); Nitrite Urine Negative (Negative); Protein Urine 3+ (Negative); RBC Urine Automated 0-4 /hpf (0-4); Specific Gravity Urine 1.013 (1.000-1.030); Urobilinogen Urine Negative (Negative)
--- NOTE | 2023-10-10 20:46 | Emergency Department Note ---
Impression & Plan COVID ED Provider Note NAME: BELKIS LERMA AGE: 87 SEX: F : 1935 ARRIVES VIA: Ambulance INFORMANT: Patient, ED PROVIDER(S): Rina Juan MD CHIEF COMPLAINT: Nausea/vomiting HPI: This is an 87-year-old female history of CKD, anemia, CHF presenting for nausea, diarrhea. Patient says she was recently mid to the hospital, had a UTI and discharged back to her home where she lives with her son and [id number]. She has been doing well until last few days where she has felt more acutely ill. She has noticed congestion, sore throat and today began having diarrhea and nausea. She states she feels "dizzy "however when elucidating she does not say that she feels vertiginous or like he is going to pass out. She states she feels just purely nauseous and is unable to vomit. Otherwise she notes this diarrhea and extreme fatigue. She states she is unable to walk due to this fatigue. She states her legs have not give out. She actually was in a reclining chair after to get up and slumped down in the chair and slid out of the chair. She did not got hit in the way down. She states she only uses oxygen at night but has required this during the day as well for shortness of breath ROS: See above HPI for pertinent positives & negatives. A total of 10 systems reviewed and were otherwise negative. PAST MEDICAL HISTORY: See Below PAST SURGICAL HISTORY: See Below FAMILY HISTORY: See Below SOCIAL HISTORY: See Below HOME MEDICATIONS: See Below ALLERGIES: See Below VITALS: See Below PHYSICAL EXAMINATION: General: resting comfortably in no acute distress Head: Normocephalic and atraumatic Eyes: Normal inspection, extraocular muscles intact Ear, nose, throat: Normal external exam, rhinorrhea Neck: Normal range of motion Respiratory: lungs clear to auscultation bilaterally Cardiovascular: Regular rate/rhythm, no murmur GI: soft, nontender, no guarding or rebound Extremities: nontender, moves all extremities Neuro: The patient awake and alert, appropriately conversive, no focal deficits, symmetric faces Skin: Warm, dry, and intact MEDICAL DECISION MAKING: This is an 87-year-old female senting for nausea, diarrhea and weakness. Patient has a daughter who works in a school and has been exposed to multiple sick contacts. -Significantly cytosis today at 18, change from previous -Improving hemoglobin -Creatinine stable -Negative urinalysis -Patient is COVID-19 positive today -Chest Xray independently interpreted by me showing no pneumothorax, or pleural effusions, possible right base opacity -Patient is continually weak, unable to ambulate, will admit for COVID-19, weakness Differential diagnosis: Viral syndrome, weakness, low concern for ACS or PE, gastroenteritis ER treatment provided: See below Diagnostics interpreted by me: ECG: ECG independently interpreted by me with normal sinus rhythm, rate of 97, normal MO, intraventricular conduction delay, normal QTc, no ST segment elevations consistent with STEMI criteria, PACs noted Cardiac Monitoring: An order was placed for continuous cardiac monitoring. The monitor shows a rate of with rhythm. Laboratory studies: As stated above and show below. Imaging studies: See below. Past Med/Surg History Medical History (Updated 10/11/23 @ 01:26 by Rina Juan MD) Right-sided chest wall pain Bladder leak Hx of basal cell carcinoma Anemia Spinal stenosis of lumbar region with radiculopathy History of COVID-19 04/26/22, pcr test [place], admitted>pneumonia>resolved. Hx of gout Hx of left bundle branch block Intermittent Hx of Clostridium difficile infection Most recent C diff infection 12/2022- admitted to [facility] and treated with abx Hx of diverticulitis of colon Most recent episode 12/2022 - admitted at [facility] Kidney cysts LEFT SIDE[place]IT[place] [facility] [place] pain History of kidney stones Diabetes mellitus, type 2 Hearing deficit Hyperlipidemia Chronic kidney disease (CKD), stage IV (severe) follows with Dr. Childress - nephro aware of patient following with vascular surgery Nocturnal hypoxemia WEARS 2L HS HTN (hypertension) CHF (congestive heart failure) follows with Kaushal Nieto PA-C EF 55-60% per 12/2022 ECHO Surgical History History of left cataract surgery History of right cataract surgery History of arthroscopy LEFT KNEE S/P epidural steroid injection Nausea and vomiting after administration of anesthetic agent + VERTIGO History of dilatation and curettage History of bilateral tubal ligation History of arthroscopy of left knee History of esophagogastroduodenoscopy (EGD) History of colonoscopy History of tooth extraction all teeth History of cystoscopy History of cardiac cath ?2009--@ [facility] [place] st[place] Hx of appendectomy Hx of cholecystectomy H/O: hysterectomy Family History Sister Family history of diabetes mellitus Sister Family history of diabetes mellitus Brother Family history of diabetes mellitus Family history of esophageal cancer Brother Family history of esophageal cancer Father Lung cancer Other No family history of adverse response to anesthesia No significant family history Social History Smoking Status: Never smoker Second Hand Exposure: No; Do You Dip or Chew Tobacco: No; Hx Alcohol Use: No Hx Substance Use: No Preferred Language: Kinyarwanda Communication Ability: Effective Visual Impairment: Partially Limited [employer] Specialist Required: No Beliefs That Will Affect Care: None marital status: / Current Living Situation: Family Current Living Situation Comment: lives with son How many Children do You have: 2 Other Information That Helps Us Care for You: No Feels Safe at Home: Yes Safety Concerns: Feels Safe At This Time Assistive Devices: Denture - Upper, Denture - Lower, Glasses, Hearing Aid - Bilateral, Hearing Aid - Left, Oxygen - at Night and Walker Assistive Devices Comment: hearing aids at home Allergies Allergies Allergy/AdvReac Type Severity Reaction Status Date / Time morphine AdvReac Intermediate Confusion Verified 09/26/23 10:53 phenylpropanolamine AdvReac Intermediate INTOLERANCE Verified 09/26/23 10:53 spironolactone AdvReac Intermediate weakness Verified 09/26/23 10:53 Home Meds Home Medications Medication Instructions Recorded Confirmed aspirin 81 mg tablet,delayed 81 mg PO QAM 12/30/18 10/10/23 release rosuvastatin 10 mg tablet 10 mg PO HS 12/30/18 10/10/23 famotidine 20 mg tablet (Pepcid) 20 mg PO QDD 11/18/19 10/10/23 lidocaine 4 % topical patch 1 patch topical DAILY Pain 06/23/20 10/10/23 (Salonpas (lidocaine)) diclofenac sodium 1 % topical gel 4 g topical QID PRN Pain 03/17/21 10/10/23 carvedilol 25 mg tablet 25 mg PO BIDM 06/13/21 10/10/23 hydralazine 100 mg tablet 100 mg PO TID 06/13/21 10/10/23 Saccharomyces boulardii 250 mg 250 mg PO QAM 08/26/21 10/10/23 capsule (Florastor) acetaminophen 500 mg tablet 1,000 mg PO BID 04/26/22 10/10/23 (Tylenol Extra Strength) insulin human U-100 NPH-regulr See Rx Instructions .Route .COMPLEX 08/05/22 10/10/23 70-30 mix 100 unit/mL subcutaneous susp (Humulin 70/30 U-100 Insulin) isosorbide dinitrate 20 mg tablet 40 mg PO TID 08/05/22 10/10/23 omeprazole 20 mg capsule,delayed 20 mg PO QAM 08/05/22 10/10/23 release polyethylene glycol 3350 17 17 g PO BID PRN Constipation 12/14/22 10/10/23 gram/dose oral powder (Miralax) allopurinol 100 mg tablet 200 mg PO QDL 08/23/23 10/10/23 spironolactone 25 mg tablet 25 mg PO QAM 08/23/23 10/10/23 docusate sodium 100 mg capsule 100 mg PO BID 09/26/23 10/10/23 sennosides 8.6 mg tablet (Senokot) 8.6 mg PO HS PRN Constipation 09/26/23 10/10/23 Previous Rx's Medication Instructions Recorded cyanocobalamin (vitamin B-12) 500 500 mcg PO QAM #30 tabs 03/27/21 mcg tablet ondansetron 4 mg disintegrating 4 mg PO Q6H PRN nausea and 11/25/21 tablet vomiting #14 tabs furosemide 20 mg tablet 20 mg PO Q OTHER DAY #45 tabs 08/04/23 amlodipine 5 mg tablet (Norvasc) 5 mg PO QAM #30 tabs 10/02/23 lidocaine 5 % topical patch 1 patch transdermal DAILY #30 ea 10/02/23 Results & Data (ED) Vital Signs Vital Signs - 24 hr 10/10/23 19:25 10/10/23 20:02 10/10/23 20:02 Temperature 37.3 C Temperature Source Temporal Artery Scan Pulse Rate 122 H 104 H Pulse Rate from SpO2 Sensor Respiratory Rate 18 Respiratory Effort / Characteristics Non-Labored Spontaneous Respiratory Depth Normal Respiratory Pattern Regular Blood Pressure 195/80 H 199/77 H Blood Pressure Mean 118 144 Blood Pressure Position Sitting Pulse Oximetry 94 Oxygen Delivery Method Nasal Cannula Oxygen Flow Rate 2 Sepsis Recent Fever Within 48 Hours No Sepsis New/Unexplained Change in Mental Status N/A Sepsis Action Taken by Nursing No Action Required 10/10/23 20:03 10/10/23 20:10 10/10/23 20:20 Temperature Temperature Source Pulse Rate 96 H 95 H 96 H Pulse Rate from SpO2 Sensor 101 H 94 H 98 H Respiratory Rate 15 15 15 Respiratory Effort / Characteristics Respiratory Depth Respiratory Pattern Blood Pressure Blood Pressure Mean Blood Pressure Position Pulse Oximetry 99 99 98 Oxygen Delivery Method Oxygen Flow Rate Sepsis Recent Fever Within 48 Hours Sepsis New/Unexplained Change in Mental Status Sepsis Action Taken by Nursing 10/10/23 20:30 10/10/23 20:40 10/10/23 20:50 Temperature Temperature Source Pulse Rate 98 H 95 H 100 H Pulse Rate from SpO2 Sensor 95 H 95 H 108 H Respiratory Rate 20 15 15 Respiratory Effort / Characteristics Respiratory Depth Respiratory Pattern Blood Pressure Blood Pressure Mean Blood Pressure Position Pulse Oximetry 94 98 97 Oxygen Delivery Method Nasal Cannula Oxygen Flow Rate 2 Sepsis Recent Fever Within 48 Hours Sepsis New/Unexplained Change in Mental Status Sepsis Action Taken by Nursing 10/10/23 21:00 10/10/23 21:10 10/10/23 21:10 Temperature Temperature Source Pulse Rate 101 H 102 H Pulse Rate from SpO2 Sensor 95 H 97 H Respiratory Rate 15 23 Respiratory Effort / Characteristics Respiratory Depth Respiratory Pattern Blood Pressure 216/87 H Blood Pressure Mean 116 Blood Pressure Position Pulse Oximetry 97 97 Oxygen Delivery Method Oxygen Flow Rate Sepsis Recent Fever Within 48 Hours Sepsis New/Unexplained Change in Mental Status Sepsis Action Taken by Nursing 10/10/23 21:20 10/10/23 21:30 10/10/23 21:31 Temperature Temperature Source Pulse Rate 100 H 106 H Pulse Rate from SpO2 Sensor 96 H 94 H Respiratory Rate 22 15 Respiratory Effort / Characteristics Respiratory Depth Respiratory Pattern Blood Pressure 188/75 H Blood Pressure Mean 118 Blood Pressure Position Pulse Oximetry 98 96 Oxygen Delivery Method Oxygen Flow Rate Sepsis Recent Fever Within 48 Hours Sepsis New/Unexplained Change in Mental Status Sepsis Action Taken by Nursing 10/10/23 21:31 10/10/23 21:31 10/10/23 21:40 Temperature Temperature Source Pulse Rate 105 H 98 H Pulse Rate from SpO2 Sensor 118 H 109 H Respiratory Rate 22 15 Respiratory Effort / Characteristics Respiratory Depth Respiratory Pattern Blood Pressure 188/75 H Blood Pressure Mean 118 Blood Pressure Position Pulse Oximetry 95 98 Oxygen Delivery Method Oxygen Flow Rate Sepsis Recent Fever Within 48 Hours Sepsis New/Unexplained Change in Mental Status Sepsis Action Taken by Nursing 10/10/23 21:50 10/10/23 22:00 10/10/23 22:00 Temperature Temperature Source Pulse Rate 102 H 99 H Pulse Rate from SpO2 Sensor 101 H 106 H Respiratory Rate 22 24 Respiratory Effort / Characteristics Respiratory Depth Respiratory Pattern Blood Pressure 187/68 H Blood Pressure Mean 145 Blood Pressure Position Pulse Oximetry 98 97 Oxygen Delivery Method Oxygen Flow Rate Sepsis Recent Fever Within 48 Hours Sepsis New/Unexplained Change in Mental Status Sepsis Action Taken by Nursing Laboratory Data 10/10/23 19:33 10/10/23 19:33 Lab Results 10/10/23 10/10/23 10/10/23 Range/Units 19:33 20:15 21:50 WBC 18.86 H (4.8-10.8) K/ul RBC 3.18 L (4.20-5.40) M/uL Hgb 9.9 L (12.0-16.0) g/dl Hct 31.3 L (37.0-47.0) % MCV 98.4 (80.0-100.0) fL MCH 31.1 (25.0-34.0) pg MCHC 31.6 L (32.0-36.0) g/dL RDW Std Deviation 53.9 H (36.4-46.3) fL RDW Coeff of Noemy 14.8 H (11.5-14.5) % Plt Count 248 (130-400) K/uL MPV 9.5 (9.4-12.4) fL Immature Gran % (Auto) 0.6 % Neut % (Auto) 88.0 % Lymph % (Auto) 4.2 % Sullivan % (Auto) 6.8 % Eos % (Auto) 0.1 % Baso % (Auto) 0.3 % Neut # (Auto) 16.62 H (1.40-6.50) K/uL Lymph # (Auto) 0.79 L (1.20-3.40) K/uL Sullivan # (Auto) 1.28 H (0.11-0.59) K/uL Eos # (Auto) 0.01 (0.00-0.50) K/uL Baso # (Auto) 0.05 (0.00-0.20) K/uL Immature Gran # (Auto) 0.11 (0.01-0.20) K/uL Sodium 136 (136-145) mmol/L Potassium 4.4 (3.5-5.1) mmol/L Chloride 105 (98-107) mmol/L Carbon Dioxide 20 L (21-32) mmol/L Anion Gap 11 (3-11) BUN 47 H (6-23) mg/dl Creatinine 3.09 H (0.6-1.2) mg/dl Est Cr Clr Drug Dosing Not Reportable Est GFR ( Amer) 14.9 ml/min Est GFR (Non-Af Amer) 12.8 ml/min BUN/Creatinine Ratio 15.2 (10-20) Glucose 233 H (70-99(Fasting)) mg/dl Lactate 1.0 (0.4-2.0) mmol/L Calcium 10.0 (8.6-10.3) mg/dl Magnesium 1.6 L (1.7-2.4) mg/dl Total Bilirubin 0.9 (0.2-1.0) mg/dl AST 15 (13-39) U/L ALT 11 (7-52) U/L Alkaline Phosphatase 52 (34-104) U/L Total Protein 6.5 (6.0-8.3) gm/dl Albumin 4.3 (3.4-5.0) gm/dl Globulin 2.2 L (2.5-4.0) gm/dl Albumin/Globulin Ratio 2.0 (0.9-2) Urine Color Yellow Urine Appearance Clear (Clear) Urine pH 5.0 (4.5-7.5) Ur Specific Valders 1.013 (1.000-1.030) Urine Protein 3+ H (Negative) Urine Glucose (UA) Negative (Negative) Urine Ketones Negative (Negative) Urine Blood Negative (Negative) Urine Nitrite Negative (Negative) Urine Bilirubin Negative (Negative) Urine Urobilinogen Negative (Negative) Ur Leukocyte Esterase Negative (Negative) Urine WBC (Auto) 1-5 (0-5) /hpf Urine RBC (Auto) 0-4 (0-4) /hpf U Hyaline Cast (Auto) 1-5 (0-5) /lpf U Epithel Cells (Auto) >30 H (0-5) /lpf Urine Bacteria (Auto) Negative (Negative) Adenovirus (PCR) Not Detected (NotDetected) B. pertussis DNA (PCR) Not Detected (NotDetected) B.parapertussis DNA PCR Not Detected (NotDetected) C. pneumoniae DNA (PCR) Not Detected (NotDetected) Coronavirus OC43 (PCR) Not Detected (NotDetected) Coronavirus HKU1 (PCR) Not Detected (NotDetected) Coronavirus 229E (PCR) Not Detected (NotDetected) SARS-CoV-2 (PCR) DETECTED A* (NotDetected) Coronavirus NL63 (PCR) Not Detected (NotDetected) Human Metapneumovir PCR Not Detected (NotDetected) Influenza Type A (PCR) Not Detected (NotDetected) Influenza Type B (PCR) Not Detected (NotDetected) M. pneumoniae (PCR) Not Detected (NotDetected) Parainfluenza 1 (PCR) Not Detected (NotDetected) Parainfluenza 2 (PCR) Not Detected (NotDetected) Parainfluenza 3 (PCR) Not Detected (NotDetected) Parainfluenza 4 (PCR) Not Detected (NotDetected) RSV (PCR) Not Detected (NotDetected) Entero/Rhino (PCR) Not Detected (NotDetected) Administered Medications Hydralazine HCl (Hydralazine Tab 50 Mg Tab) 100 mg PO TID [facility] Stop: 11/09/23 23:55 Last Admin: 10/11/23 01:06 Dose: 100 mg Documented By: TELMA Insulin Aspart (Insulin Aspart Per Unit Charge) 0 units SC ACHS ARMOND Stop: 11/09/23 23:55 Last Admin: 10/11/23 01:05 Dose: 4 units Documented By: LMP Co-signed By: MEME Discontinued Medications Metronidazole (Flagyl) 500 mg in 100 mls @ 100 mls/hr IV NOW STA; Protocol Stop: 10/10/23 23:06 Last Infusion: 10/10/23 23:59 Dose: Infused Documented By: Admin: 10/10/23 22:35 Dose: 100 mls/hr Documented By: BCN Magnesium Sulfate/Dextrose (Magnesium Sulfate / D5w) 1 gm in 100 mls @ 50 mls/hr IV ONE ONE Stop: 10/11/23 00:14 Last Infusion: 10/11/23 00:51 Dose: Infused Documented By: Admin: 10/10/23 22:34 Dose: 50 mls/hr Documented By: SAADIA Labetalol HCl (Labetalol Hcl Iv 5 Mg/Ml 20ml) 10 mg IV NOW STA Stop: 10/10/23 21:46 Last Admin: 10/10/23 21:57 Dose: 10 mg Documented By: SAADIA Co-signed By: STEPHEN Ondansetron HCl (Ondansetron Inj 2 Mg/Ml 2 Ml Vial) 4 mg IV NOW STA Stop: 10/10/23 19:34 Last Admin: 10/10/23 19:54 Dose: 4 mg Documented By: ANNE MARIE Imaging Data Radiologist's Impression: Head CT 10/10/23 22:07 Exam(s): CT HEAD Without Contrast EXAM: CT Head Without Intravenous Contrast CLINICAL HISTORY: Reason for exam: garcia, htn crisis. TECHNIQUE: Axial computed tomography images of the head/brain without intravenous contrast. CTDI is 36.43 mGy and DLP is 325.8 mGy-cm. Automated exposure control was utilized for the study. A dose lowering technique was utilized adhering to the principles of ALARA. COMPARISON: No relevant prior studies available. FINDINGS: No acute intracranial hemorrhage. No midline shift or mass effect. The territorial mary-white matter differentiation is maintained throughout. Age-related cerebral volume loss. Periventricular and subcortical white matter hypoattenuation, consistent with chronic microangiopathy. The visualized orbits appear grossly unremarkable. The calvarium is intact. The visualized paranasal sinuses and mastoid air cells are grossly clear. IMPRESSION: No acute intracranial hemorrhage, midline shift, or mass effect. Electronically signed by: Franco Craft MD 10/11/23 00:24 AM Discharge Plan Visit Data Chief Complaint: Illness Stated Complaint: ILLNESS ED Provider: Rina Juan Discharge Problem: COVID Patient Disposition: Admitted As Inpatient Discharge Instructions Interventions: ED Discharge Assessment Last Done: 10/10/23 22:43
[2023-10-10 21:28] LABS: Adenovirus PCR Not Detected (NotDetected); Bordetella parapertussis PCR Not Detected (NotDetected); Bordetella pertussis PCR Not Detected (NotDetected); Chlamydia pneumoniae PCR Not Detected (NotDetected); Coronavirus 229E PCR Not Detected (NotDetected); Coronavirus HKU1 PCR Not Detected (NotDetected); Coronavirus NL63 PCR Not Detected (NotDetected); Coronavirus OC43PCR Not Detected (NotDetected); Human Metapneumovirus PCR Not Detected (NotDetected); Influenza A PCR Not Detected (NotDetected); Influenza B PCR Not Detected (NotDetected); Mycoplasma pneumoniae PCR Not Detected (NotDetected); Parainfluenza Virus 1 PCR Not Detected (NotDetected); Parainfluenza Virus 2 PCR Not Detected (NotDetected); Parainfluenza Virus 3 PCR Not Detected (NotDetected); Parainfluenza Virus 4 PCR Not Detected (NotDetected); Respiratory Syncytial VirusPCR Not Detected (NotDetected); Rhinovirus/Enterovirus PCR Not Detected (NotDetected)
[2023-10-10 21:31] LABS: Coronavirus CoV-2 (COVID19)PCR DETECTED (NotDetected)
[2023-10-10] MEDS ORDERED: LABETALOL HCL IV 5 MG/ML 20ML IV STA (21:45)
[2023-10-10 22:04] LABS: Magnesium 1.6 mg/dl (1.7-2.4)
[2023-10-10] MEDS ORDERED: metroNIDAZOLE 500 MG/100 ML BAG IV STA (22:07)
--- NOTE | 2023-10-10 22:08 | History & Physical Report ---
Date of Service October 10, 2023 Assessment & Plan (1) Hypertensive crisis: Plan: Hypertensive crisis: Plan: Worsening kidney dysfunction, ARF on CKD Spironolactone intolerance Presenting as transient headache symptoms secondary to COVID-19 illness Diarrheal illness rule out recurrent C. difficile Possible sepsis chronic diastolic heart failure, patient on the dry side chronic LBBB PAF as per records, patient NSR hx PVD DM2 insulin requiring, well-controlled as of recent hemoglobin A1c of 6.62 months ago chronic anemia, hemoglobin at baseline PCU IV labetalol 1 dose now Titrate home BP meds Nephrology consult if with difficult control. (Patient known to [facility] Supportive management for COVID-19 illness CS, stool C. difficile Flagyl 1 dose for possible C. difficile given possible sepsis Dificid course if with recurrent C. difficile Basal bolus insulin, ISS BG goal 1 10-1 40, carb count carbs PT OT eval DVT prophylaxis with heparin subcu Full code Total critical care time was 45 minutes. Patient son requesting updates providers. Tenzin Araya, contact #[phone]. Text document was generated using [employer] voice recognition software. It may contain grammatical or spelling errors. Kindly contact undersigned for clarification of any documentation item in question. History of Present Illness Chief Complaint: Weakness, nausea, diarrhea Primary Care Provider: Fox Ramirez MD History obtained from patient and records. Medical history significant for chronic diastolic heart failure (EF 55 to 60%, TTE 2022), chronic left bundle branch block, PAF as per records, valvular heart disease (moderate MR/TR, mild AR), PVD, hypertension, nocturnal hypoxemia on home O2 at night, pulmonary hypertension, DM2 insulin requiring, CRI (baseline creatinine 3), hyperparathyroidism as per records, GERD, chronic constipation, history of C. difficile, chronic anemia (baseline hemoglobin of 9), renal cysts. Last confinement 2 weeks ago for right flank pain attributed to possible UTI. Patient received ceftriaxone during confinement. No growth on final urine CS. Few days ago, patient noted increased congestion productive of clear sputum, sore throat. Transient headache symptoms and dizziness. Loose stools, nausea, fever, chills, poor appetite. No overt abdominal pain. Highest SBP of 210s noted at the ER. MEDICAL HISTORY: As above. SURGERIES: knee surgeries, hysterectomy, bilateral tubal ligation, cho lecystectomy, appendectomy, cataract surgery FAMILY HISTORY: Laryngeal cancer, stroke and throat cancer. PERSONAL AND SOCIAL HISTORY: non-smoker, no ETOH abuse, retired [employer] employee Allergies Allergy/AdvReac Type Severity Reaction Status Date / Time morphine AdvReac Intermediate Confusion Verified 09/26/23 10:53 phenylpropanolamine AdvReac Intermediate INTOLERANCE Verified 09/26/23 10:53 spironolactone AdvReac Intermediate weakness Verified 09/26/23 10:53 Home Medications Medication Instructions Recorded Confirmed Type aspirin 81 mg tablet,delayed 81 mg PO QAM 12/30/18 10/10/23 History release rosuvastatin 10 mg tablet 10 mg PO HS 12/30/18 10/10/23 History famotidine 20 mg tablet (Pepcid) 20 mg PO QDD 11/18/19 10/10/23 History lidocaine 4 % topical patch 1 patch topical DAILY Pain 06/23/20 10/10/23 History (Salonpas (lidocaine)) diclofenac sodium 1 % topical gel 4 g topical QID PRN Pain 03/17/21 10/10/23 History cyanocobalamin (vitamin B-12) 500 500 mcg PO QAM #30 tabs 03/27/21 10/10/23 Rx mcg tablet carvedilol 25 mg tablet 25 mg PO BIDM 06/13/21 10/10/23 History hydralazine 100 mg tablet 100 mg PO TID 06/13/21 10/10/23 History Saccharomyces boulardii 250 mg 250 mg PO QAM 08/26/21 10/10/23 History capsule (Florastor) ondansetron 4 mg disintegrating 4 mg PO Q6H PRN nausea and 11/25/21 10/10/23 Rx tablet vomiting #14 tabs acetaminophen 500 mg tablet 1,000 mg PO BID 04/26/22 10/10/23 History (Tylenol Extra Strength) insulin human U-100 NPH-regulr See Rx Instructions .Route .COMPLEX 08/05/22 10/10/23 History 70-30 mix 100 unit/mL subcutaneous susp (Humulin 70/30 U-100 Insulin) isosorbide dinitrate 20 mg tablet 40 mg PO TID 08/05/22 10/10/23 History omeprazole 20 mg capsule,delayed 20 mg PO QAM 08/05/22 10/10/23 History release polyethylene glycol 3350 17 17 g PO BID PRN Constipation 12/14/22 10/10/23 History gram/dose oral powder (Miralax) furosemide 20 mg tablet 20 mg PO Q OTHER DAY #45 tabs 08/04/23 10/10/23 Rx allopurinol 100 mg tablet 200 mg PO QDL 08/23/23 10/10/23 History spironolactone 25 mg tablet 25 mg PO QAM 08/23/23 10/10/23 History docusate sodium 100 mg capsule 100 mg PO BID 09/26/23 10/10/23 History sennosides 8.6 mg tablet (Senokot) 8.6 mg PO HS PRN Constipation 09/26/23 10/10/23 History amlodipine 5 mg tablet (Norvasc) 5 mg PO QAM #30 tabs 10/02/23 10/10/23 Rx lidocaine 5 % topical patch 1 patch transdermal DAILY #30 ea 10/02/23 10/10/23 Rx Past Med/Surg History Medical History (Updated 10/11/23 @ 01:26 by Rina Juan MD) Right-sided chest wall pain Bladder leak Hx of basal cell carcinoma Anemia Spinal stenosis of lumbar region with radiculopathy History of COVID-19 04/26/22, pcr test [place], admitted>pneumonia>resolved. Hx of gout Hx of left bundle branch block Intermittent Hx of Clostridium difficile infection Most recent C diff infection 12/2022- admitted to [facility] and treated with abx Hx of diverticulitis of colon Most recent episode 12/2022 - admitted at [facility] Kidney cysts LEFT SIDE>[place]ING [place]IT[place] [facility] pain History of kidney stones Diabetes mellitus, type 2 Hearing deficit Hyperlipidemia Chronic kidney disease (CKD), stage IV (severe) follows with Dr. Childress - nephro aware of patient following with vascular surgery Nocturnal hypoxemia WEARS 2L HS HTN (hypertension) CHF (congestive heart failure) follows with Kaushal Nieto PA-C EF 55-60% per 12/2022 ECHO Surgical History History of left cataract surgery History of right cataract surgery History of arthroscopy LEFT KNEE S/P epidural steroid injection Nausea and vomiting after administration of anesthetic agent + VERTIGO History of dilatation and curettage History of bilateral tubal ligation History of arthroscopy of left knee History of esophagogastroduodenoscopy (EGD) History of colonoscopy History of tooth extraction all teeth History of cystoscopy History of cardiac cath ?2009--@ [facility] [place]--no stents Hx of appendectomy Hx of cholecystectomy H/O: hysterectomy Family History Sister Family history of diabetes mellitus Sister Family history of diabetes mellitus Brother Family history of diabetes mellitus Family history of esophageal cancer Brother Family history of esophageal cancer Father Lung cancer Other No family history of adverse response to anesthesia No significant family history Social History Smoking Status: Never smoker Second Hand Exposure: No; Do You Dip or Chew Tobacco: No; Hx Alcohol Use: No Hx Substance Use: No Preferred Language: Tongan Communication Ability: Effective Visual Impairment: Partially Limited Director Prospect Required: No Beliefs That Will Affect Care: None marital status: / Current Living Situation: Family Current Living Situation Comment: lives with son How many Children do You have: 2 Other Information That Helps Us Care for You: No Feels Safe at Home: Yes Safety Concerns: Feels Safe At This Time Assistive Devices: Denture - Upper, Denture - Lower, Glasses, Hearing Aid - Bilateral, Hearing Aid - Left, Oxygen - at Night and Walker Assistive Devices Comment: hearing aids at home Review of Systems Review of Systems: As per HPI, all other systems reviewed and negative Physical Exam Physical Exam: GENERAL: Anxious, obese, uncomfortable, no respiratory distress SKIN: Pallor, warm HEENT: Pale palpebral conjunctivae, no ptosis, dry buccal mucosa NECK : Supple, short neck, no tenderness CHEST : Decreased breath sounds, no tenderness HEART : RRR, systolic murmur ABDOMEN: Some distention, minimal hypogastric tenderness EXTREMITIES : Minimal LE swelling , no LE tenderness, no other conspicuous deformities noted NEUROLOGIC : Coherent, no facial asymmetry, no other gross focality Results & Data Results & Data Vital Signs (Past 12 Hours) Vital Signs Temp Pulse Resp BP Pulse Ox O2 Del Method O2 Flow Rate 10/10/23 22:00 187/68 H 10/10/23 22:00 99 H 24 97 10/10/23 21:50 102 H 22 98 10/10/23 21:40 98 H 15 98 10/10/23 21:31 105 H 22 95 10/10/23 21:31 188/75 H 10/10/23 21:31 188/75 H 10/10/23 21:30 106 H 15 96 10/10/23 21:20 100 H 22 98 10/10/23 21:10 216/87 H 10/10/23 21:10 102 H 23 97 10/10/23 21:00 101 H 15 97 10/10/23 20:50 100 H 15 97 10/10/23 20:40 95 H 15 98 10/10/23 20:30 98 H 20 94 Nasal Cannula 2 10/10/23 20:20 96 H 15 98 10/10/23 20:10 95 H 15 99 10/10/23 20:03 96 H 15 99 10/10/23 20:02 199/77 H 10/10/23 20:02 104 H 10/10/23 19:25 37.3 C 122 H 18 195/80 H 94 Nasal Cannula 2 Laboratory Results Laboratory Results WBC 18.86 K/ul (4.8-10.8) H 10/10/23 19:33 RBC 3.18 M/uL (4.20-5.40) L 10/10/23 19:33 Hgb 9.9 g/dl (12.0-16.0) L 10/10/23 19:33 Hct 31.3 % (37.0-47.0) L 10/10/23 19:33 MCV 98.4 fL (80.0-100.0) 10/10/23 19: MCH 31.1 pg (25.0-34.0) 10/10/23 19:33 MCHC 31.6 g/dL (32.0-36.0) L 10/10/23 19:33 RDW Std Deviation 53.9 fL (36.4-46.3) H 10/10/23 19:33 RDW Coeff of Noemy 14.8 % (11.5-14.5) H 10/10/23 19:33 Plt Count 248 K/uL (130-400) 10/10/23 19:33 MPV 9.5 fL (9.4-12.4) 10/10/23 19:33 Immature Gran % (Auto) 0.6 % 10/10/23 19:33 Neut % (Auto) 88.0 % 10/10/23 19: Lymph % (Auto) 4.2 % 10/10/23 19:33 [place] % (Auto) 6.8 % 10/10/23 19:33 Eos % (Auto) 0.1 % 10/10/23 19:33 Baso % (Auto) 0.3 % 10/10/23 19: Neut # (Auto) 16.62 K/uL (1.40-6.50) H 10/10/23 19:33 Lymph # (Auto) 0.79 K/uL (1.20-3.40) L 10/10/23 19: [place] # (Auto) 1.28 K/uL (0.11-0.59) H 10/10/23 19:33 Eos # (Auto) 0.01 K/uL (0.00-0.50) 10/10/23 19: Baso # (Auto) 0.05 K/uL (0.00-0.20) 10/10/23 19: Immature Gran # (Auto) 0.11 K/uL (0.01-0.20) 10/10/23 19:33 Sodium 136 mmol/L (136-145) 10/10/23 19: Potassium 4.4 mmol/L (3.5-5.1) 10/10/23 19:33 Chloride 105 mmol/L (98-107) 10/10/23 19: Carbon Dioxide 20 mmol/L (21-32) L 10/10/23 19:33 Anion Gap 11 (3-11) 10/10/23 19:33 BUN 47 mg/dl (6-23) H 10/10/23 19: Creatinine 3.09 mg/dl (0.6-1.2) H 10/10/23 19:33 Est Cr Clr Drug Dosing Not Reportable 10/10/23 19:33 Est GFR ( Amer) 14.9 ml/min 10/10/23 19:33 Est GFR (Non-Af Amer) 12.8 ml/min 10/10/23 19:33 BUN/Creatinine Ratio 15.2 (10-20) 10/10/23 19:33 Glucose 233 mg/dl (70-99(Fasting)) H 10/10/23 19:33 Calcium 10.0 mg/dl (8.6-10.3) 10/10/23 19:33 Magnesium 1.6 mg/dl (1.7-2.4) L 10/10/23 19:33 Total Bilirubin 0.9 mg/dl (0.2-1.0) 10/10/23 19:33 AST 15 U/L (13-39) 10/10/23 19:33 ALT 11 U/L (7-52) 10/10/23 19:33 Alkaline Phosphatase 52 U/L (34-104) 10/10/23 19:33 Total Protein 6.5 gm/dl (6.0-8.3) 10/10/23 19:33 Albumin 4.3 gm/dl (3.4-5.0) 10/10/23 19:33 Globulin 2.2 gm/dl (2.5-4.0) L 10/10/23 19:33 Albumin/Globulin Ratio 2.0 (0.9-2) 10/10/23 19:33 Urine Color Yellow 10/10/23 20:15 Urine Appearance Clear (Clear) 10/10/23 20:15 Urine pH 5.0 (4.5-7.5) 10/10/23 20:15 Ur Specific [place] 1.013 (1.000-1.030) 10/10/23 20:15 Urine Protein 3+ (Negative) H 10/10/23 20:15 Urine Glucose (UA) Negative (Negative) 10/10/23 20:15 Urine Ketones Negative (Negative) 10/10/23 20:15 Urine Blood Negative (Negative) 10/10/23 20:15 Urine Nitrite Negative (Negative) 10/10/23 20:15 Urine Bilirubin Negative (Negative) 10/10/23 20:15 Urine Urobilinogen Negative (Negative) 10/10/23 20:15 Ur Leukocyte Esterase Negative (Negative) 10/10/23 20:15 Urine WBC (Auto) 1-5 /hpf (0-5) 10/10/23 20:15 Urine RBC (Auto) 0-4 /hpf (0-4) 10/10/23 20:15 U Hyaline Cast (Auto) 1-5 /lpf (0-5) 10/10/23 20:15 U Epithel Cells (Auto) >30 /lpf (0-5) H 10/10/23 20:15 Urine Bacteria (Auto) Negative (Negative) 10/10/23 20:15 Adenovirus (PCR) Not Detected (NotDetected) 10/10/23 20:15 B. pertussis DNA (PCR) Not Detected (NotDetected) 10/10/23 20:15 B.parapertussis DNA PCR Not Detected (NotDetected) 10/10/23 20:15 C. pneumoniae DNA (PCR) Not Detected (NotDetected) 10/10/23 20:15 Coronavirus OC43 (PCR) Not Detected (NotDetected) 10/10/23 20:15 Coronavirus HKU1 (PCR) Not Detected (NotDetected) 10/10/23 20:15 Coronavirus 229E (PCR) Not Detected (NotDetected) 10/10/23 20:15 SARS-CoV-2 (PCR) DETECTED (NotDetected) A* 10/10/23 20:15 Coronavirus NL63 (PCR) Not Detected (NotDetected) 10/10/23 20:15 Human Metapneumovir PCR Not Detected (NotDetected) 10/10/23 20:15 Influenza Type A (PCR) Not Detected (NotDetected) 10/10/23 20:15 Influenza Type B (PCR) Not Detected (NotDetected) 10/10/23 20:15 M. pneumoniae (PCR) Not Detected (NotDetected) 10/10/23 20:15 Parainfluenza 1 (PCR) Not Detected (NotDetected) 10/10/23 20:15 Parainfluenza 2 (PCR) Not Detected (NotDetected) 10/10/23 20:15 Parainfluenza 3 (PCR) Not Detected (NotDetected) 10/10/23 20:15 Parainfluenza 4 (PCR) Not Detected (NotDetected) 10/10/23 20:15 RSV (PCR) Not Detected (NotDetected) 10/10/23 20:15 Entero/Rhino (PCR) Not Detected (NotDetected) 10/10/23 20:15 Diagnostic Findings Chest x-ray as per my interpretation cardiomegaly, atelectasis EKG as per my interpretation : Rate 95, NSR, LAD, LAFB, LVH, no ischemia
[2023-10-10] MEDS ORDERED: MAGNESIUM SULFATE / D5W 1 GM/100 ML BAG IV ONE (22:15)
[2023-10-10] MEDS ORDERED: PROMETHAZINE HCL 6.25 MG in SODIUM CHLORIDE 0.9% 50 ML IV PRN (22:16)
[2023-10-10] MEDS ORDERED: GLUCOSE 10 TAB/TUBE PO PRN (23:56)
[2023-10-10] MEDS ORDERED: GLUCOSE 40% GEL 15 GM TUBE PO PRN (23:56)
[2023-10-10] MEDS ORDERED: POLYETHYLENE (MIRALAX) 17 GM PACK PO PRN (23:56)
[2023-10-10] MEDS ORDERED: DEXTROSE 50% 50 ML SYRINGE IV PRN (23:56)
[2023-10-10] MEDS ORDERED: CARBOHYDRATES FOR HYPOGLYCEMIA PO PRN (23:56)
[2023-10-10] MEDS ORDERED: GLUCAGON FOR INJ 1 MG VIAL SQ PRN (23:56)
[2023-10-10] MEDS ORDERED: SENNA 8.6 MG TAB PO PRN (23:56)
--- NOTE | 2023-10-11 00:25 | CT Scan Report ---
Exam(s): CT HEAD Without Contrast EXAM: CT Head Without Intravenous Contrast CLINICAL HISTORY: Reason for exam: garcia, htn crisis. TECHNIQUE: Axial computed tomography images of the head/brain without intravenous contrast. CTDI is 36.43 mGy and DLP is 325.8 mGy-cm. Automated exposure control was utilized for the study. A dose lowering technique was utilized adhering to the principles of ALARA. COMPARISON: No relevant prior studies available. FINDINGS: No acute intracranial hemorrhage. No midline shift or mass effect. The territorial mary-white matter differentiation is maintained throughout. Age-related cerebral volume loss. Periventricular and subcortical white matter hypoattenuation, consistent with chronic microangiopathy. The visualized orbits appear grossly unremarkable. The calvarium is intact. The visualized paranasal sinuses and mastoid air cells are grossly clear. IMPRESSION: No acute intracranial hemorrhage, midline shift, or mass effect. Electronically signed by: Franco Craft MD 10/11/23 00:24 AM
[2023-10-11 00:56] LABS: Cdiff Antigen Positive; Cdiff Toxin B Gene (2yr or >) Positive Cdiff Gene (Neg)
[2023-10-11 00:57] LABS: Cdiff Toxin A+B Positive Cdiff Toxin (Negative)
[2023-10-11] MEDS: INSULIN ASPART PER UNIT CHARGE SC SCH ×5 (01:05→21:34)
[2023-10-11] MEDS: hydrALAZINE TAB 50 MG TAB PO SCH ×4 (01:06→21:35)
[2023-10-11] MEDS: FIDAXOMICIN 200 MG TAB PO SCH ×3 (01:32→21:34)
[2023-10-11] MEDS: HEPARIN SOD 5,000 UNIT/0.5 ML VIAL SQ SCH ×3 (06:03→21:38)
[2023-10-11] MEDS: ISOSORBIDE DINITRATE 40 MG TAB PO SCH ×3 (06:06→17:19)
[2023-10-11 06:31] LABS: Adenovirus F 40/41 PCR Not Detected (NotDetected); Astrovirus PCR Not Detected (NotDetected); Campylobacter PCR Not Detected (NotDetected); Cryptosporidium PCR Not Detected (NotDetected); Cyclospora cayetanensis PCR Not Detected (NotDetected); Entamoeba histolytica PCR Not Detected (NotDetected); Enteroaggregative E.coli(EAEC) Not Detected (NotDetected); Enteropathogenic E.coli (EPEC) Not Detected (NotDetected); Enterotoxigenic E.coli (ETEC) Not Detected (NotDetected); Giardia lamblia PCR Not Detected (NotDetected); Norovirus GI/GII PCR Not Detected (NotDetected); Plesiomonas shigelloides PCR Not Detected (NotDetected); Rotavirus A PCR Not Detected (NotDetected); Salmonella PCR Not Detected (NotDetected); Sapovirus PCR Not Detected (NotDetected); Shiga-like Toxin E.coli (STEC) Not Detected (NotDetected); Shigella/Enteroinvasive E.coli Not Detected (NotDetected); Vibrio cholerae PCR Not Detected (NotDetected); Vibrio species PCR Not Detected (NotDetected); Yersinia enterocolitica PCR Not Detected (NotDetected)
[2023-10-11 06:38] LABS: Basophils # (auto) 0.04 K/uL (0.00-0.20); Basophils % (auto) 0.2 %; Eosinophils # (auto) 0.02 K/uL (0.00-0.50); Eosinophils % (auto) 0.1 %; Hematocrit (blood only) 28.4 % (37.0-47.0); Hemoglobin 9.2 g/dl (12.0-16.0); Immature Granulocytes % (auto) 0.6 %; Lymphocytes # (auto) 1.08 K/uL (1.20-3.40); Mean Corpuscular Hemoglobin 31.3 pg (25.0-34.0); Mean Corpuscular Hgb Conc 32.4 g/dL (32.0-36.0); Mean Corpuscular Volume 96.6 fL (80.0-100.0); Mean Platelet Volume 9.6 fL (9.4-12.4); Monocytes # (auto) 2.04 K/uL (0.11-0.59); Monocytes % (auto) 11.3 %; Neutrophils # (auto) 14.76 K/uL (1.40-6.50); Neutrophils % (auto) 81.8 %; Platelet Count 229 K/uL (130-400); RDW Coefficient of Variation 14.6 % (11.5-14.5); RDW Standard Deviation 52.5 fL (36.4-46.3); Red Blood Count 2.94 M/uL (4.20-5.40); White Blood Count 18.04 K/ul (4.8-10.8)
[2023-10-11 07:02] LABS: Calcium 9.6 mg/dl (8.6-10.3)
[2023-10-11 07:07] LABS: BUN Creatinine Ratio 15.4 (10-20); Creatinine Clr Calc Pharmacy 13.5 ml/min; Est GFR (African American) 14.3 ml/min; Est GFR (Non-African American) 12.4 ml/min
--- NOTE | 2023-10-11 08:00 | XRay Report ---
XR chest 1V portable HISTORY: illness COMPARISON: Chest and right rib series 09/26/2023. FINDINGS: The heart is mildly enlarged. No pleural effusions. No pneumothorax. Mild central pulmonary vascular congestion without overt edema. No new focal lung consolidations to suggest a pneumonia. No acute fractures. IMPRESSION: Cardiomegaly and mild congestive change persists. ACT 112: Negative or not required by law. Electronically signed by: Catrachito Cuenca M.D. 10/11/2023 7:58 AM
[2023-10-11] MEDS: ACETAMINOPHEN 500 MG TAB PO SCH ×2 (08:45→21:35)
[2023-10-11] MEDS: amLODIPine BESYLATE 5 MG TAB PO SCH (08:46)
[2023-10-11] MEDS: ASPIRIN 81 MG ECTAB PO SCH (08:46)
[2023-10-11] MEDS: carvediloL 25 MG TAB PO SCH ×2 (08:46→17:20)
[2023-10-11] MEDS: CYANOCOBALAMIN (B-12) 500 MCG TABLET PO SCH (08:46)
[2023-10-11] MEDS: SACCHAROMYCES BOULARDII 250 MG CAP PO SCH (08:48)
[2023-10-11] MEDS: LIDOCAINE 5% 1 PATCH TD SCH (08:48)
[2023-10-11] MEDS: PANTOprazole 40 MG TAB PO SCH (08:48)
[2023-10-11] MEDS ORDERED: ISOSORBIDE DINITRATE 40 MG TAB PO SCH (09:00)
[2023-10-11] MEDS: LANTUS PER UNIT CHARGE SQ SCH (09:13)
[2023-10-11] MEDS: allopurinoL 100 MG TAB PO SCH (12:19)
--- NOTE | 2023-10-11 16:56 | Hospitalist Progress Note ---
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 difficile Possible sepsis Flagyl 1 dose for possible C. difficile given possible sepsis Dificid course if with recurrent C. difficile Still having diarrhea and will not administer any antidiarrheal for now Acute kidney injury on chronic kidney disease Has been making out enough urine If creatinine does not improve or get worse will get nephrology involved Nephrology consult if with difficult control. (Patient known to [facility] chronic diastolic heart failure, patient on the dry side chronic LBBB PAF as per records, patient NSR No signs and or symptoms of fluid overload hx PVD DM2 insulin requiring, well-controlled as of recent hemoglobin A1c of 6.62 months ago Basal bolus insulin, ISS BG goal 1 10-1 40, carb count carbs PT OT eval Cchronic anemia, hemoglobin at baseline DVT prophylaxis with heparin subcu Full code Patient son requesting updates providers. Mr. Tenzin Araya, contact #[phone]. Admission and Anticipated Discharge Date Admission Date: October 10, 2023 Subjective 10/11/2023 The patient was seen and examined in telemetry unit and in the COVID room She has been feeling weakness and tiredness and continues to have loose bowel movements Has abdominal pain as well without nausea and or vomiting No significant respiratory symptoms Review of Systems Review of Systems: All systems reviewed and are unremarkable except as noted below Physical Exam Physical Exam: Lying in bed comfortably Constitutional: well developed, well nourished, + ill appearing and + obese Eyes: PERRL, conjunctivae normal, anicteric sclerae ENMT: external ear and nose normal, oropharynx normal Neck: trachea midline, no thyromegaly Respiratory: no respiratory distress Auscultation: + diminished lung sounds and + crackles (Minimal crackles at the bases) Cardiovascular: Rate/Rhythm: regular rate and regular rhythm; not tachycardic Heart Sounds: normal S1 and normal S2; no murmur Extremities: no edema Gastrointestinal (Abdomen): Inspection/Auscultation: normal bowel sounds; abdomen not distended Percussion/Palpation: + abdomen tender and abdomen soft Musculoskeletal: No acute arthritis involving any of the joint Neurologic: normal touch/pain/proprioception and moves all extremities; no focal motor deficits Lymphatic: no cervical or axillary lymphadenopathy Results & Data Results & Data Vital Signs (Past 12 Hours) Vital Signs Temp Pulse Pulse Resp BP Pulse Ox O2 Del Method 10/11/23 16:20 36.7 C 71 18 120/55 L 97 Nasal Cannula 10/11/23 11:53 36.7 C 75 18 124/52 L 97 Nasal Cannula 10/11/23 09:40 Nasal Cannula 10/11/23 09:40 94 H 10/11/23 08:20 37.1 C 93 H 18 156/72 H 95 Nasal Cannula 10/11/23 06:06 99 H 150/78 H O2 Flow Rate 10/11/23 16:20 1.0 10/11/23 11:53 1.0 10/11/23 09:40 2 10/11/23 09:40 10/11/23 08:20 1.0 10/11/23 06:06 Laboratory Results Short CBC 10/10/23 10/11/23 Range/Units 19:33 05:48 WBC 18.86 H 18.04 H (4.8-10.8) K/ul Hgb 9.9 L 9.2 L (12.0-16.0) g/dl Hct 31.3 L 28.4 L (37.0-47.0) % Plt Count 248 229 (130-400) K/uL [facility] 10/10/23 10/11/23 19:33 05:48 Sodium 136 137 Potassium 4.4 4.0 Chloride 105 107 Carbon Dioxide 20 L 18 L BUN 47 H 49 H Creatinine 3.09 H 3.19 H Glucose 233 H 135 H Calcium 10.0 9.6 Liver Function 10/10/23 Range/Units 19:33 Total Bilirubin 0.9 (0.2-1.0) mg/dl AST 15 (13-39) U/L ALT 11 (7-52) U/L Alkaline Phosphatase 52 (34-104) U/L Albumin 4.3 (3.4-5.0) gm/dl Urine 10/10/23 Range/Units 20:15 Urine Color Yellow Urine Appearance Clear (Clear) Urine pH 5.0 (4.5-7.5) Ur Specific [place] 1.013 (1.000-1.030) Urine Protein 3+ H (Negative) Urine Glucose (UA) Negative (Negative) Medications Administered Current Inpatient Medications Acetaminophen (Acetaminophen 500 Mg Tab) 1,000 mg PO BID [facility] Stop: 11/10/23 08:59 Last Admin: 10/11/23 08:45 Dose: 1,000 mg Allopurinol (Allopurinol 100 Mg Tab) 200 mg PO QDL [facility] Stop: 11/10/23 11:29 Last Admin: 10/11/23 12:19 Dose: 200 mg Amlodipine Besylate (Amlodipine Besylate 5 Mg Tab) 5 mg PO QAM [facility] Stop: 11/10/23 08:59 Last Admin: 10/11/23 08:46 Dose: 5 mg Aspirin (Aspirin 81 Mg Ectab) 81 mg PO QAM [facility] Stop: 11/10/23 08:59 Last Admin: 10/11/23 08:46 Dose: 81 mg Carvedilol (Carvedilol 25 Mg Tab) 25 mg PO BIDM [facility] Stop: 11/10/23 07:59 Last Admin: 10/11/23 08:46 Dose: 25 mg Cyanocobalamin (Cyanocobalamin (B-12) 500 Mcg Tablet) 500 mcg PO QAM [facility] Stop: 11/10/23 08:59 Last Admin: 10/11/23 08:46 Dose: 500 mcg Dextrose (Dextrose 50% 50 Ml Syringe) 25 - 50 ml IV UD PRN; Protocol PRN Reason: Hypoglycemia Protocol Stop: 11/09/23 23:55 Famotidine (Famotidine 20 Mg Tab) 20 mg PO QDD [facility] Stop: 11/10/23 16:29 Fidaxomicin (Fidaxomicin 200 Mg Tab) 200 mg PO BID [facility] Stop: 10/21/23 01:09 Last Admin: 10/11/23 09:15 Dose: 200 mg Glucagon (Glucagon For Inj 1 Mg Vial) 1 mg SQ UD PRN; Protocol PRN Reason: Hypoglycemia Protocol Stop: 11/09/23 23:55 Glucose (Glucose 10 Tab/Tube) 4 - 8 tab PO UD PRN; Protocol PRN Reason: Hypoglycemia Treatment Stop: 11/09/23 23:55 Glucose (Glucose 40% Gel 15 Gm Tube) 15 - 30 gm PO UD PRN; Protocol PRN Reason: Hypoglycemia Protocol Stop: 11/09/23 23:55 Heparin Sodium (Porcine) (Heparin Sod 5,000 Unit/0.5 Ml Vial) 5,000 units SQ Q8H [facility] Stop: 11/10/23 05:59 Last Admin: 10/11/23 12:19 Dose: 5,000 units Hydralazine HCl (Hydralazine Tab 50 Mg Tab) 100 mg PO TID [facility] Stop: 11/09/23 23:55 Last Admin: 10/11/23 13:14 Dose: 100 mg Hydroxyzine HCl (Hydroxyzine Hcl 10 Mg Tab) 10 mg PO QID PRN PRN Reason: Anxiety Stop: 11/09/23 22:15 Promethazine HCl 6.25 mg/ (Sodium Chloride) 50.25 mls @ 201 mls/hr IV Q6H PRN PRN Reason: Nausea And Vomiting Stop: 11/09/23 22:15 Insulin Aspart (Insulin Aspart Per Unit Charge) 0 units SC ACHS [facility] Stop: 11/09/23 23:55 Last Admin: 10/11/23 12:12 Dose: 8 units Insulin Glargine (Lantus Per Unit Charge) 5 units SQ DAILY [facility] Stop: 11/10/23 08:59 Last Admin: 10/11/23 09:13 Dose: 5 units Isosorbide Dinitrate (Isosorbide Dinitrate 40 Mg Tab) 40 mg PO TID@0700,1 200,1700 [facility] Stop: 11/10/23 06:59 Last Admin: 10/11/23 12:19 Dose: 40 mg Lidocaine (Lidocaine 5% 1 Patch) 1 patch TD DAILY [facility] Stop: 11/10/23 08:59 Last Admin: 10/11/23 08:48 Dose: 1 patch Miscellaneous (Remove Lidoderm Patch) 1 each N/A DAILY@2100 [facility] Stop: 11/10/23 20:59 Miscellaneous (Carbohydrates For Hypoglycemia ) 15 - 30 gm PO UD PRN PRN Reason: Hypoglycemia Protocol Stop: 11/09/23 23:55 Pantoprazole Sodium (Pantoprazole 40 Mg Tab) 40 mg PO QAM [facility] Stop: 11/10/23 08:59 Last Admin: 10/11/23 08:48 Dose: 40 mg Polyethylene Glycol (Polyethylene (Miralax) 17 Gm Pack) 17 gm PO BID PRN PRN Reason: Constipation Stop: 11/09/23 23:55 Rosuvastatin Calcium (Rosuvastatin Calcium 10 Mg Tab) 10 mg PO HS [facility] Stop: 11/10/23 20:59 Saccharomyces Boulardii (Saccharomyces Boulardii 250 Mg Cap) 250 mg PO QAM [facility] Stop: 11/10/23 08:59 Last Admin: 10/11/23 08:48 Dose: 250 mg Sennosides (Senna 8.6 Mg Tab) 8.6 mg PO HS PRN PRN Reason: Constipation Stop: 11/09/23 23:55
[2023-10-11] MEDS: FAMOTIDINE 20 MG TAB PO SCH (17:20)
[2023-10-11] MEDS: ROSUVASTATIN CALCIUM 10 MG TAB PO SCH (21:35)
[2023-10-12] MEDS: HEPARIN SOD 5,000 UNIT/0.5 ML VIAL SQ SCH ×3 (06:05→20:58)
[2023-10-12] MEDS: ISOSORBIDE DINITRATE 40 MG TAB PO SCH ×3 (06:06→17:30)
[2023-10-12 06:17] LABS: Basophils # (auto) 0.03 K/uL (0.00-0.20); Basophils % (auto) 0.3 %; Eosinophils % (auto) 0.9 %; Hematocrit (blood only) 27.4 % (37.0-47.0); Hemoglobin 8.7 g/dl (12.0-16.0); Immature Granulocytes # (auto) 0.09 K/uL (0.01-0.20); Immature Granulocytes % (auto) 0.8 %; Lymphocytes # (auto) 1.24 K/uL (1.20-3.40); Lymphocytes % (auto) 10.9 %; Mean Corpuscular Hemoglobin 31.1 pg (25.0-34.0); Mean Corpuscular Hgb Conc 31.8 g/dL (32.0-36.0); Mean Corpuscular Volume 97.9 fL (80.0-100.0); Mean Platelet Volume 9.4 fL (9.4-12.4); Monocytes # (auto) 1.02 K/uL (0.11-0.59); Neutrophils # (auto) 8.89 K/uL (1.40-6.50); Neutrophils % (auto) 78.1 %; Platelet Count 217 K/uL (130-400); RDW Coefficient of Variation 14.5 % (11.5-14.5); RDW Standard Deviation 51.9 fL (36.4-46.3); White Blood Count 11.37 K/ul (4.8-10.8)
[2023-10-12 06:49] LABS: BUN Creatinine Ratio 13.6 (10-20); Calcium 9.3 mg/dl (8.6-10.3); Creatinine Clr Calc Pharmacy 10.3 ml/min; Est GFR (African American) 10.3 ml/min; Est GFR (Non-African American) 8.9 ml/min; Phosphorus 4.4 mg/dl (2.5-4.9); Potassium 3.7 mmol/L (3.5-5.1)
[2023-10-12] MEDS: LIDOCAINE 5% 1 PATCH TD SCH (08:08)
[2023-10-12] MEDS: hydrALAZINE TAB 50 MG TAB PO SCH ×3 (08:08→20:47)
[2023-10-12] MEDS: SACCHAROMYCES BOULARDII 250 MG CAP PO SCH (08:08)
[2023-10-12] MEDS: PANTOprazole 40 MG TAB PO SCH (08:08)
[2023-10-12] MEDS: ACETAMINOPHEN 500 MG TAB PO SCH ×2 (08:09→20:45)
[2023-10-12] MEDS: carvediloL 25 MG TAB PO SCH ×2 (08:09→17:30)
[2023-10-12] MEDS: amLODIPine BESYLATE 5 MG TAB PO SCH (08:09)
[2023-10-12] MEDS: ASPIRIN 81 MG ECTAB PO SCH (08:09)
[2023-10-12] MEDS: CYANOCOBALAMIN (B-12) 500 MCG TABLET PO SCH (08:09)
[2023-10-12] MEDS: LANTUS PER UNIT CHARGE SQ SCH (08:24)
[2023-10-12] MEDS: INSULIN ASPART PER UNIT CHARGE SC SCH ×4 (08:24→20:58)
[2023-10-12] MEDS: FIDAXOMICIN 200 MG TAB PO SCH ×2 (09:55→20:57)
[2023-10-12] MEDS ORDERED: SODIUM CHLORIDE 0.9% 1,000 ML IV SCH (10:00)
[2023-10-12] MEDS: allopurinoL 100 MG TAB PO SCH (11:28)
--- NOTE | 2023-10-12 12:18 | Nephrology Consultation ---
Date of Consultation October 12, 2023 Assessment & Plan (1) MISTI (acute kidney injury): * MISTI/CKD likely due to combination dehydration, COVID infection * Urinalysis is negative for blood. Urine sediment was negative for cellular casts * 09/26/[address] without IV contrast: atrophic kidneys without o bstruction. 5.9 cm complex lesion L renal pelvis is unchanged from prior imaging * Will provide cautious hydration w/ 0.9NS * Monitor PRP, UO (2) CKD (chronic kidney disease): * CKD stage G5/A3 (ESKD) w/ baseline Cr 3.0, EGFR 13 cc/min. Renal impairment is due to DKD, HTN and microvascular disease * AVF has not yet been created due to repeated hospitalization * Advanced age, frailty make patient a poor chronic dialysis candidate. We have discussed this on several occasions. Ms. Rollins desires conservative medical management but will consider HD if "I absolutely have to have it in order to live" (3) COVID-19: * Supportive therapy. Currently breathing comfortably flat in bed on O2 at 2L/min NC (4) C. difficile colitis: * On Dificid therapy History of Present Illness Reason for Consultation: MISTI/CKD Attending Physician: Rose Warren MD History of Present Illness Ms. Rollins is an 87 year old white female who is seen at the request of the [facility] for evaluation of MISTI/CKD. Information for the HPI is obtained by direct patient interview and review of the EMR. HPI is summarized as follows: Ms. Rollins has stage G5 CKD (ESKD) w/ baseline Cr 3.0, EGFR 13 cc/min. Her renal impairment is due to DKD, HTN and microvascular disease. Her medical history is also significant for AODM (no retinopathy), valvular heart disease w/ moderate MR, nocturnal hypoxemia requiring home O2, pulmonary HTN, osteopenia, C. Difficile colitis and 4 cm lesion involving the interpolar region of the L kidney (monitored by Urology - no change 05/12-05/13). Ms. Rollins presented to [facility] EMD 10/10/23 for evaluation of dyspnea, diarrhea and fatigue. She was markedly hypertensive w/ SBP 216 mm Hg. BP responded to IV Labetalol and resuming home medications. Ms. Rollins tested positive for both COVID and clostridium difficile, creatinine has risen from 3.1 to 4.2. CXR was without overt CHF. Primary service has continued Amlodipine, Carvedilol, Isosorbide, and Hydralazine for BP management. Dificid has been added to treat C. Difficile Allergies Allergy/AdvReac Type Severity Reaction Status Date / Time morphine AdvReac Intermediate Confusion Verified 09/26/23 10:53 phenylpropanolamine AdvReac Intermediate INTOLERANCE Verified 09/26/23 10:53 spironolactone AdvReac Intermediate weakness Verified 09/26/23 10:53 Home Medications Medication Instructions Recorded Confirmed Type aspirin 81 mg tablet,delayed 81 mg PO QAM 12/30/18 10/10/23 History release rosuvastatin 10 mg tablet 10 mg PO HS 12/30/18 10/10/23 History famotidine 20 mg tablet (Pepcid) 20 mg PO QDD 11/18/19 10/10/23 History lidocaine 4 % topical patch 1 patch topical DAILY Pain 06/23/20 10/10/23 History (Salonpas (lidocaine)) diclofenac sodium 1 % topical gel 4 g topical QID PRN Pain 03/17/21 10/10/23 History cyanocobalamin (vitamin B-12) 500 500 mcg PO QAM #30 tabs 03/27/21 10/10/23 Rx mcg tablet carvedilol 25 mg tablet 25 mg PO BIDM 06/13/21 10/10/23 History hydralazine 100 mg tablet 100 mg PO TID 06/13/21 10/10/23 History Saccharomyces boulardii 250 mg 250 mg PO QAM 08/26/21 10/10/23 History capsule (Florastor) ondansetron 4 mg disintegrating 4 mg PO Q6H PRN nausea and 11/25/21 10/10/23 Rx tablet vomiting #14 tabs acetaminophen 500 mg tablet 1,000 mg PO BID 04/26/22 10/10/23 History (Tylenol Extra Strength) insulin human U-100 NPH-regulr See Rx Instructions .Route .COMPLEX 08/05/22 10/10/23 History 70-30 mix 100 unit/mL subcutaneous susp (Humulin 70/30 U-100 Insulin) isosorbide dinitrate 20 mg tablet 40 mg PO TID 08/05/22 10/10/23 History omeprazole 20 mg capsule,delayed 20 mg PO QAM 08/05/22 10/10/23 History release polyethylene glycol 3350 17 17 g PO BID PRN Constipation 12/14/22 10/10/23 History gram/dose oral powder (Miralax) furosemide 20 mg tablet 20 mg PO Q OTHER DAY #45 tabs 08/04/23 10/10/23 Rx allopurinol 100 mg tablet 200 mg PO QDL 08/23/23 10/10/23 History spironolactone 25 mg tablet 25 mg PO QAM 08/23/23 10/10/23 History docusate sodium 100 mg capsule 100 mg PO BID 09/26/23 10/10/23 History sennosides 8.6 mg tablet (Senokot) 8.6 mg PO HS PRN Constipation 09/26/23 10/10/23 History amlodipine 5 mg tablet (Norvasc) 5 mg PO QAM #30 tabs 10/02/23 10/10/23 Rx lidocaine 5 % topical patch 1 patch transdermal DAILY #30 ea 10/02/23 10/10/23 Rx Patient History Medical History Right-sided chest wall pain Bladder leak Hx of basal cell carcinoma Anemia Spinal stenosis of lumbar region with radiculopathy History of COVID-19 04/26/22, pcr test [place], admitted>pneumonia>resolved. Hx of gout Hx of left bundle branch block Intermittent Hx of Clostridium difficile infection Most recent C diff infection 12/2022- admitted to [facility] and treated with abx Hx of diverticulitis of colon Most recent episode 12/2022 - admitted at [facility] Kidney cysts LEFT SIDE>BEING MONITORED BY UROLOGY [facility] Chronic back pain History of kidney stones Diabetes mellitus, type 2 Hearing deficit Hyperlipidemia Chronic kidney disease (CKD), stage IV (severe) follows with Dr. Childress - nephro aware of patient following with vascular surgery Nocturnal hypoxemia WEARS 2L HS HTN (hypertension) CHF (congestive heart failure) follows with Kaushal Nieto PA-C EF 55-60% per 12/2022 ECHO Surgical History History of left cataract surgery History of right cataract surgery History of arthroscopy LEFT KNEE S/P epidural steroid injection Nausea and vomiting after administration of anesthetic agent + VERTIGO History of dilatation and curettage History of bilateral tubal ligation History of arthroscopy of left knee History of esophagogastroduodenoscopy (EGD) History of colonoscopy History of tooth extraction all teeth History of cystoscopy History of cardiac cath ?2009--@ [facility] [place]--no stents Hx of appendectomy Hx of cholecystectomy H/O: hysterectomy Family History Sister Family history of diabetes mellitus Sister Family history of diabetes mellitus Brother Family history of diabetes mellitus Family history of esophageal cancer Brother Family history of esophageal cancer Father Lung cancer Other No family history of adverse response to anesthesia No significant family history Social History Smoking Status: Never smoker Second Hand Exposure: No; Do You Dip or Chew Tobacco: No; Hx Alcohol Use: No Hx Substance Use: No Preferred Language: Jamaican Communication Ability: Unable Visual Impairment: Partially Limited Collaborative Teacher Required: No Beliefs That Will Affect Care: None marital status: / Current Living Situation: Family Current Living Situation Comment: lives with son How many Children do You have: 2 Other Information That Helps Us Care for You: No Feels Safe at Home: Yes Safety Concerns: Feels Safe At This Time Assistive Devices: Cane, Oxygen - at Night, Raised Toilet Seat and Walker Assistive Devices Comment: hearing aids at home Review of Systems Constitutional: no fever Eyes: no problem reported Ear, Nose, Mouth, Throat: no problem reported Respiratory: + cough; no dyspnea Cardiovascular: no chest pain Gastrointestinal: + diarrhea/loose stools; no nausea and n o vomiting Genitourinary: no dysuria Integumentary: no rash Neurologic: no confusion Physical Exam Constitutional: + frail appearing Eyes: PERRL, conjunctivae normal, anicteric sclerae ENMT: external ear and nose normal, oropharynx normal Neck: trachea midline, no thyromegaly Respiratory: Auscultation: lungs clear to auscultation bilaterally Cardiovascular: RRR, no murmur, no edema Gastrointestinal (Abdomen): normal bowel sounds, soft, nontender, no hepatosplenomegaly Skin: no rashes, warm and dry Neurologic: Speech / Cognition: normal speech and normal cognition Motor/Sensory: no asterixis Psychiatric: Affect: + anxious affect Results & Data Vital Signs (Past 12 Hours) Vital Signs Temp Pulse Pulse Resp BP Pulse Ox O2 Del Method 10/12/23 11:57 36.6 C 68 16 131/48 L 97 Nasal Cannula 10/12/23 09:00 77 10/12/23 09:00 Nasal Cannula 10/12/23 08:01 36.7 C 67 18 148/58 H 99 Nasal Cannula 10/12/23 03:18 36.4 C L 76 18 149/61 H 98 Nasal Cannula O2 Flow Rate 10/12/23 11:57 2.0 10/12/23 09:00 10/12/23 09:00 2 10/12/23 08:01 2.0 10/12/23 03:18 2 Laboratory Results Laboratory Results WBC 11.37 K/ul (4.8-10.8) H 10/12/23 05:56 RBC 2.80 M/uL (4.20-5.40) L 10/12/23 05:56 Hgb 8.7 g/dl (12.0-16.0) L 10/12/23 05:56 Hct 27.4 % (37.0-47.0) L 10/12/23 05:56 MCV 97.9 fL (80.0-100.0) 10/12/23 05:56 MCH 31.1 pg (25.0-34.0) 10/12/23 05:56 MCHC 31.8 g/dL (32.0-36.0) L 10/12/23 05:56 RDW Std Deviation 51.9 fL (36.4-46.3) H 10/12/23 05:56 RDW Coeff of Noemy 14.5 % (11.5-14.5) 10/12/23 05:56 Plt Count 217 K/uL (130-400) 10/12/23 05:56 MPV 9.4 fL (9.4-12.4) 10/12/23 05:56 Immature Gran % (Auto) 0.8 % 10/12/23 05:56 Neut % (Auto) 78.1 % 10/12/23 05:56 Lymph % (Auto) 10.9 % 10/12/23 05:56 Shannon % (Auto) 9.0 % 10/12/23 05:56 Eos % (Auto) 0.9 % 10/12/23 05:56 Baso % (Auto) 0.3 % 10/12/23 05:56 Neut # (Auto) 8.89 K/uL (1.40-6.50) H 10/12/23 05:56 Lymph # (Auto) 1.24 K/uL (1.20-3.40) 10/12/23 05:56 Shannon # (Auto) 1.02 K/uL (0.11-0.59) H 10/12/23 05:56 Eos # (Auto) 0.10 K/uL (0.00-0.50) 10/12/23 05:56 Baso # (Auto) 0.03 K/uL (0.00-0.20) 10/12/23 05:56 Immature Gran # (Auto) 0.09 K/uL (0.01-0.20) 10/12/23 05:56 Sodium 137 mmol/L (136-145) 10/12/23 05:56 Potassium 3.7 mmol/L (3.5-5.1) 10/12/23 05:56 Chloride 107 mmol/L (98-107) 10/12/23 05:56 Carbon Dioxide 20 mmol/L (21-32) L 10/12/23 05:56 Anion Gap 10 (3-11) 10/12/23 05:56 BUN 57 mg/dl (6-23) H 10/12/23 05:56 Creatinine 4.20 mg/dl (0.6-1.2) H D 10/12/23 05:56 Est Cr Clr Drug Dosing 10.3 ml/min 10/12/23 05:56 Est GFR ( Amer) 10.3 ml/min 10/12/23 05:56 Est GFR (Non-Af Amer) 8.9 ml/min 10/12/23 05:56 BUN/Creatinine Ratio 13.6 (10-20) 10/12/23 05:56 Glucose 125 mg/dl (70-99(Fasting)) H 10/12/23 05:56 POC Glucose 189 mg/dl (70-99) H 10/12/23 11:56 Lactate 1.0 mmol/L (0.4-2.0) 10/10/23 21:50 Calcium 9.3 mg/dl (8.6-10.3) 10/12/23 05:56 Phosphorus 4.4 mg/dl (2.5-4.9) 10/12/23 05:56 Magnesium 2.0 mg/dl (1.7-2.4) 10/12/23 05:56 Total Bilirubin 0.9 mg/dl (0.2-1.0) 10/10/23 19:33 AST 15 U/L (13-39) 10/10/23 19:33 ALT 11 U/L (7-52) 10/10/23 19:33 Alkaline Phosphatase 52 U/L (34-104) 10/10/23 19:33 Total Protein 6.5 gm/dl (6.0-8.3) 10/10/23 19:33 Albumin 4.3 gm/dl (3.4-5.0) 10/10/23 19:33 Globulin 2.2 gm/dl (2.5-4.0) L 10/10/23 19:33 Albumin/Globulin Ratio 2.0 (0.9-2) 10/10/23 19:33 Procalcitonin 0.16 ng/ml (0-0.5) 10/10/23 22:48 Urine Color Yellow 10/10/23 20:15 Urine Appearance Clear (Clear) 10/10/23 20:15 Urine pH 5.0 (4.5-7.5) 10/10/23 20:15 Ur Specific [place] 1.013 (1.000-1.030) 10/10/23 20:15 Urine Protein 3+ (Negative) H 10/10/23 20:15 Urine Glucose (UA) Negative (Negative) 10/10/23 20:15 Urine Ketones Negative (Negative) 10/10/23 20:15 Urine Blood Negative (Negative) 10/10/23 20:15 Urine Nitrite Negative (Negative) 10/10/23 20:15 Urine Bilirubin Negative (Negative) 10/10/23 20:15 Urine Urobilinogen Negative (Negative) 10/10/23 20:15 Ur Leukocyte Esterase Negative (Negative) 10/10/23 20:15 Urine WBC (Auto) 1-5 /hpf (0-5) 10/10/23 20:15 Urine RBC (Auto) 0-4 /hpf (0-4) 10/10/23 20:15 U Hyaline Cast (Auto) 1-5 /lpf (0-5) 10/10/23 20:15 U Epithel Cells (Auto) >30 /lpf (0-5) H 10/10/23 20:15 Urine Bacteria (Auto) Negative (Negative) 10/10/23 20:15 Stl C. cayetanensis PCR Not Detected (NotDetected) 10/11/23 05:00 Stool Rotavirus A PCR Not Detected (NotDetected) 10/11/23 05:00 Stl Adenov F 40/41 PCR Not Detected (NotDetected) 10/11/23 05:00 Stool Astrovirus (PCR) Not Detected (NotDetected) 10/11/23 05:00 Stool Campylobacter PCR Not Detected (NotDetected) 10/11/23 05:00 Stl C. diff Tox B Gene Positive Cdiff Gene (Neg) H 10/10/23 22:18 Stl C.difficile Tox A&B Positive Cdiff Toxin (Negative) A* 10/10/23 22:18 Stool Cryptosporidium PCR Not Detected (NotDetected) 10/11/23 05:00 Stl E.coli Shiga Tox PCR Not Detected (NotDetected) 10/11/23 05:00 Stl Enterotoxigenic E PCR Not Detected (NotDetected) 10/11/23 05:00 Stool EPEC (PCR) Not Detected (NotDetected) 10/11/23 05:00 Stool EAEC (PCR) Not Detected (NotDetected) 10/11/23 05:00 Stl E. histolytica PCR Not Detected (NotDetected) 10/11/23 05:00 Stool Giardia Lamblia PCR Not Detected (NotDetected) 10/11/23 05:00 Stool Salmonella PCR Not Detected (NotDetected) 10/11/23 05:00 Stool Sapovirus (PCR) Not Detected (NotDetected) 10/11/23 05:00 Stl P. shigelloides PCR Not Detected (NotDetected) 10/11/23 05:00 Stl Shigella/EIEC PCR Not Detected (NotDetected) 10/11/23 05:00 St Y.enterocolitica PCR Not Detected (NotDetected) 10/11/23 05:00 Stool Vibrio (PCR) Not Detected (NotDetected) 10/11/23 05:00 Stl Vibrio cholerae PCR Not Detected (NotDetected) 10/11/23 05:00 Stl Norovirus GI/GII PCR Not Detected (NotDetected) 10/11/23 05:00 Adenovirus (PCR) Not Detected (NotDetected) 10/10/23 20:15 B. pertussis DNA (PCR) Not Detected (NotDetected) 10/10/23 20:15 B.parapertussis DNA PCR Not Detected (NotDetected) 10/10/23 20:15 C. pneumoniae DNA (PCR) Not Detected (NotDetected) 10/10/23 20:15 Coronavirus OC43 (PCR) Not Detected (NotDetected) 10/10/23 20:15 Coronavirus HKU1 (PCR) Not Detected (NotDetected) 10/10/23 20:15 Coronavirus 229E (PCR) Not Detected (NotDetected) 10/10/23 20:15 SARS-CoV-2 (PCR) DETECTED (NotDetected) A* 10/10/23 20:15 Coronavirus NL63 (PCR) Not Detected (NotDetected) 10/10/23 20:15 Human Metapneumovir PCR Not Detected (NotDetected) 10/10/23 20:15 Influenza Type A (PCR) Not Detected (NotDetected) 10/10/23 20:15 Influenza Type B (PCR) Not Detected (NotDetected) 10/10/23 20:15 M. pneumoniae (PCR) Not Detected (NotDetected) 10/10/23 20:15 Parainfluenza 1 (PCR) Not Detected (NotDetected) 10/10/23 20:15 Parainfluenza 2 (PCR) Not Detected (NotDetected) 10/10/23 20:15 Parainfluenza 3 (PCR) Not Detected (NotDetected) 10/10/23 20:15 Parainfluenza 4 (PCR) Not Detected (NotDetected) 10/10/23 20:15 RSV (PCR) Not Detected (NotDetected) 10/10/23 20:15 Entero/Rhino (PCR) Not Detected (NotDetected) 10/10/23 20:15 Impressions Chest X-Ray 10/10/23 19:32 XR chest 1V portable HISTORY: illness COMPARISON: Chest and right rib series 09/26/2023. FINDINGS: The heart is mildly enlarged. No pleural effusions. No pneumothorax. M ild central pulmonary vascular congestion without overt edema. No new focal lung consolidations to suggest a pneumonia. No acute fractures. IMPRESSION: Cardiomegaly and mild congestive change persists. ACT 112: Negative or not required by law. Electronically signed by: Catrachito Cuenca M.D. 10/11/2023 7:[address] 10/10/23 22:07 Exam(s): CT HEAD Without Contrast EXAM: CT Head Without Intravenous Contrast CLINICAL HISTORY: Reason for exam: garcia, htn crisis. TECHNIQUE: Axial computed tomography images of the head/brain without intravenous contrast. CTDI is 36.43 mGy and DLP is 325.8 mGy-cm. Automated exposure control was utilized for the study. A dose lowering technique was utilized adhering to the principles of ALARA. COMPARISON: No relevant prior studies available. FINDINGS: No acute intracranial hemorrhage. No midline shift or mass effect. The territorial mary-white matter differentiation is maintained throughout. Age-related cerebral volume loss. Periventricular and subcortical white matter hypoattenuation, consistent with chronic microangiopathy. The visualized orbits appear grossly unremarkable. The calvarium is intact. The visualized paranasal sinuses and mastoid air cells are grossly clear. IMPRESSION: No acute intracranial hemorrhage, midline shift, or mass effect. Electronically signed by: Franco Craft MD 10/11/23 00:24 AM PG Care Time/CCT Total # of Minutes Spent Total Time Spent with Patient: Total time spent is greater than 50% in coordination of care (as documented) at patient's floor/unit and/or counseling patient: Coding Level of Care Code 03749 IN/OBS CONSULT LVL 5,80M Diagnoses MISTI (acute kidney injury) N17.9 Stage 5 chronic kidney disease not on chronic dialysis N18.5 Chronic kidney disease stage: stage 5, not on chronic dialysis COVID-19 U07.1 C. difficile colitis A04.72 (2) CKD (chronic kidney disease) Chronic kidney disease stage: stage 5, not on chronic dialysis Qualified Code(s): N18.5 - Chronic kidney disease, stage 5
--- NOTE | 2023-10-12 14:43 | Hospitalist Progress Note ---
Date of Service October 12, 2023 Assessment & Plan (1) Hypertensive crisis: Plan: Hypertensive crisis: Plan: Worsening kidney dysfunction, ARF on CKD Spironolactone intolerance Presenting as transient headache symptoms secondary to very high blood pressure IV labetalol 1 dose now Titrate home BP meds Clinically much better since admission Blood pressure is well-controlled as of now Headache is much better Denies any more headache and the blood pressure is controlled Acute kidney injury on chronic kidney disease Has been making out enough urine If creatinine does not improve or get worse will get nephrology involved Creatinine has been going up and is more than 4 today likely secondary to dehydration from ongoing diarrhea Appreciate nephrology input and recommendation Will monitor PRP COVID-19 illness Does not have any respiratory symptoms Has been requiring 1 L to maintain saturation Will not put any medications for COVID-19 infection Denies any respiratory symptoms 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 difficile Possible sepsis Flagyl 1 dose for possible C. difficile given possible sepsis Dificid course if with recurrent C. difficile Still having diarrhea and will not administer any antidiarrheal for now Still having profuse diarrhea and making her dehydrated with impairment of kidney function chronic diastolic heart failure, patient on the dry side chronic LBBB PAF as per records, patient NSR No signs and or symptoms of fluid overload hx PVD DM2 insulin requiring, well-controlled as of recent hemoglobin A1c of 6.62 months ago Basal bolus insulin, ISS BG goal 1 10-1 40, carb count carbs PT OT eval Cchronic anemia, hemoglobin at baseline DVT prophylaxis with heparin subcu Full code Patient son requesting updates providers. Mr. Tenzin Araya, contact #[phone]. Admission and Anticipated Discharge Date Admission Date: October 10, 2023 Subjective 10/11/2023 The patient was seen and examined in telemetry unit and in the COVID room She has been feeling weakness and tiredness and continues to have loose bowel movements Has abdominal pain as well without nausea and or vomiting No significant respiratory symptoms 10/12/2023 The patient was seen and examined in telemetry unit and in the COVID room She is a little better today but is still having profuse diarrhea Denies any significant abdominal pain and does not have any respiratory symptoms Review of Systems Review of Systems: All systems reviewed and are unremarkable except as noted below Physical Exam Physical Exam: Lying in bed comfortably Constitutional: well developed, well nourished, + ill appearing and + obese Eyes: PERRL, conjunctivae normal, anicteric sclerae ENMT: external ear and nose normal, oropharynx normal Neck: trachea midline, no thyromegaly Respiratory: no respiratory distress Auscultation: + diminished lung sounds and + crackles (Minimal crackles at the bases) Cardiovascular: Rate/Rhythm: regular rate and regular rhythm; not tachycardic Heart Sounds: normal S1 and normal S2; no murmur Extremities: no edema Gastrointestinal (Abdomen): Inspection/Auscultation: normal bowel sounds; abdomen not distended Percussion/Palpation: + abdomen tender and abdomen soft Musculoskeletal: No acute arthritis involving any of the joint Neurologic: normal touch/pain/proprioception and moves all extremities; no focal motor deficits Lymphatic: no cervical or axillary lymphadenopathy Results & Data Results & Data Vital Signs (Past 12 Hours) Vital Signs Temp Pulse Pulse Resp BP Pulse Ox O2 Del Method 10/12/23 11:57 36.6 C 68 16 131/48 L 97 Nasal Cannula 10/12/23 09:00 77 10/12/23 09:00 Nasal Cannula 10/12/23 08:01 36.7 C 67 18 148/58 H 99 Nasal Cannula 10/12/23 03:18 36.4 C L 76 18 149/61 H 98 Nasal Cannula O2 Flow Rate 10/12/23 11:57 2.0 10/12/23 09:00 10/12/23 09:00 2 10/12/23 08:01 2.0 10/12/23 03:18 2 Laboratory Results Short CBC 10/12/23 Range/Units 05:56 WBC 11.37 H (4.8-10.8) K/ul Hgb 8.7 L (12.0-16.0) g/dl Hct 27.4 L (37.0-47.0) % Plt Count 217 (130-400) K/uL BMP 10/12/23 05:56 Sodium 137 Potassium 3.7 Chloride 107 Carbon Dioxide 20 L BUN 57 H Creatinine 4.20 H D Glucose 125 H Calcium 9.3 Medications Administered Current Inpatient Medications Acetaminophen (Acetaminophen 500 Mg Tab) 1,000 mg PO BID [facility] Stop: 11/10/23 08:59 Last Admin: 10/12/23 08:09 Dose: 1,000 mg Allopurinol (Allopurinol 100 Mg Tab) 200 mg PO QDL [facility] Stop: 11/10/23 11:29 Last Admin: 10/12/23 11:28 Dose: 200 mg Amlodipine Besylate (Amlodipine Besylate 5 Mg Tab) 5 mg PO QAM [facility] Stop: 11/10/23 08:59 Last Admin: 10/12/23 08:09 Dose: 5 mg Aspirin (Aspirin 81 Mg Ectab) 81 mg PO QAM [facility] Stop: 11/10/23 08:59 Last Admin: 10/12/23 08:09 Dose: 81 mg Carvedilol (Carvedilol 25 Mg Tab) 25 mg PO BIDM [facility] Stop: 11/10/23 07:59 Last Admin: 10/12/23 08:09 Dose: 25 mg Cyanocobalamin (Cyanocobalamin (B-12) 500 Mcg Tablet) 500 mcg PO QAM [facility] Stop: 11/10/23 08:59 Last Admin: 10/12/23 08:09 Dose: 500 mcg Dextrose (Dextrose 50% 50 Ml Syringe) 25 - 50 ml IV UD PRN; Protocol PRN Reason: Hypoglycemia Protocol Stop: 11/09/23 23:55 Famotidine (Famotidine 20 Mg Tab) 20 mg PO QDD [facility] Stop: 11/10/23 16:29 Last Admin: 10/11/23 17:20 Dose: 20 mg Fidaxomicin (Fidaxomicin 200 Mg Tab) 200 mg PO BID [facility] Stop: 10/21/23 01:09 Last Admin: 10/12/23 09:55 Dose: 200 mg Glucagon (Glucagon For Inj 1 Mg Vial) 1 mg SQ UD PRN; Protocol PRN Reason: Hypoglycemia Protocol Stop: 11/09/23 23:55 Glucose (Glucose 10 Tab/Tube) 4 - 8 tab PO UD PRN; Protocol PRN Reason: Hypoglycemia Treatment Stop: 11/09/23 23:55 Glucose (Glucose 40% Gel 15 Gm Tube) 15 - 30 gm PO UD PRN; Protocol PRN Reason: Hypoglycemia Protocol Stop: 11/09/23 23:55 Heparin Sodium (Porcine) (Heparin Sod 5,000 Unit/0.5 Ml Vial) 5,000 units SQ Q8H [facility] Stop: 11/10/23 05:59 Last Admin: 10/12/23 14:30 Dose: 5,000 units Hydralazine HCl (Hydralazine Tab 50 Mg Tab) 100 mg PO TID [facility] Stop: 11/09/23 23:55 Last Admin: 10/12/23 14:29 Dose: 100 mg Hydroxyzine HCl (Hydroxyzine Hcl 10 Mg Tab) 10 mg PO QID PRN PRN Reason: Anxiety Stop: 11/09/23 22:15 Promethazine HCl 6.25 mg/ (Sodium Chloride) 50.25 mls @ 201 mls/hr IV Q6H PRN PRN Reason: Nausea And Vomiting Stop: 11/09/23 22:15 Sodium Chloride (Nss) 1,000 mls @ 80 mls/hr IV .[id number] [facility] Stop: 10/12/23 22:29 Last Admin: 10/12/23 11:28 Dose: 80 mls/hr Insulin Aspart (Insulin Aspart Per Unit Charge) 0 units SC ACHS [facility] Stop: 11/09/23 23:55 Last Admin: 10/12/23 12:34 Dose: 4 units Insulin Glargine (Lantus Per Unit Charge) 5 units SQ DAILY [facility] Stop: 11/10/23 08:59 Last Admin: 10/12/23 08:24 Dose: 5 units Isosorbide Dinitrate (Isosorbide Dinitrate 40 Mg Tab) 40 mg PO TID@0700,1200 ,1700 [facility] Stop: 11/10/23 06:59 Last Admin: 10/12/23 11:28 Dose: 40 mg Lidocaine (Lidocaine 5% 1 Patch) 1 patch TD DAILY [facility] Stop: 11/10/23 08:59 Last Admin: 10/12/23 08:08 Dose: 1 patch Miscellaneous (Remove Lidoderm Patch) 1 each N/A DAILY@2100 [facility] Stop: 11/10/23 20:59 Last Admin: 10/11/23 21:38 Dose: 1 each Miscellaneous (Carbohydrates For Hypoglycemia ) 15 - 30 gm PO UD PRN PRN Reason: Hypoglycemia Protocol Stop: 11/09/23 23:55 Pantoprazole Sodium (Pantoprazole 40 Mg Tab) 40 mg PO QAM [facility] Stop: 11/10/23 08:59 Last Admin: 10/12/23 08:08 Dose: 40 mg Polyethylene Glycol (Polyethylene (Miralax) 17 Gm Pack) 17 gm PO BID PRN PRN Reason: Constipation Stop: 11/09/23 23:55 Rosuvastatin Calcium (Rosuvastatin Calcium 10 Mg Tab) 10 mg PO HS [facility] Stop: 11/10/23 20:59 Last Admin: 10/11/23 21:35 Dose: 10 mg Saccharomyces Boulardii (Saccharomyces Boulardii 250 Mg Cap) 250 mg PO QAM [facility] Stop: 11/10/23 08:59 Last Admin: 10/12/23 08:08 Dose: 250 mg Sennosides (Senna 8.6 Mg Tab) 8.6 mg PO HS PRN PRN Reason: Constipation Stop: 11/09/23 23:55
[2023-10-12] MEDS: FAMOTIDINE 20 MG TAB PO SCH (17:30)
[2023-10-12] MEDS: ROSUVASTATIN CALCIUM 10 MG TAB PO SCH (20:45)
[2023-10-13] MEDS: HEPARIN SOD 5,000 UNIT/0.5 ML VIAL SQ SCH ×3 (05:01→20:50)
[2023-10-13 06:26] LABS: Hematocrit (blood only) 25.9 % (37.0-47.0); Hemoglobin 8.3 g/dl (12.0-16.0); Mean Corpuscular Hemoglobin 31.2 pg (25.0-34.0); Mean Corpuscular Volume 97.4 fL (80.0-100.0); Mean Platelet Volume 10.6 fL (9.4-12.4); Platelet Count 190 K/uL (130-400); RDW Standard Deviation 49.4 fL (36.4-46.3); Red Blood Count 2.66 M/uL (4.20-5.40); White Blood Count 8.34 K/ul (4.8-10.8)
[2023-10-13 07:01] LABS: BUN Creatinine Ratio 13.3 (10-20); Calcium 8.8 mg/dl (8.6-10.3); Creatinine Clr Calc Pharmacy 10.1 ml/min; Est GFR (African American) 10.1 ml/min; Est GFR (Non-African American) 8.7 ml/min; Potassium 3.6 mmol/L (3.5-5.1)
--- NOTE | 2023-10-13 08:28 | Nephrology Progress Note ---
Date of Service October 13, 2023 Assessment & Plan (1) IMSTI (acute kidney injury): Plan: * MISTI/CKD likely due to combination dehydration, COVID infection * Urinalysis is negative for blood. Urine sediment was negative for cellular casts * 09/26/[address] without IV contrast: atrophic kidneys without obstruction. 5.9 cm complex lesion L renal pelvis is unchanged from prior imaging * I&O difficult to assess due to incontinence. Weight is stable at 90 kg * No acute indication for HD. 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 Renal impairment is due to DKD, HTN and microvascular disease * AVF has not yet been created due to repeated hospitalization * Advanced age, frailty make patient a poor chronic dialysis candidate. We have discussed this on several occasions. Ms. Rollins desires conservative medical management but will consider HD if "I absolutely have to have it in order to live" (3) COVID-19: Plan: * Supportive therapy. Currently breathing comfortably flat in bed on O2 at 2L/min NC * Will order follow up CXR for am (4) C. difficile colitis: Plan: * On Dificid therapy Admission and Anticipated Discharge Date Admission Date: October 10, 2023 Subjective Ms. Rollisn was evaluated in her hospital room this morning. She was breathing comfortably on O2 at 2L/min NC. She reports ongoing diarrhea Review of Systems Constitutional: no fever Eyes: no problem reported Ear, Nose, Mouth, Throat: no problem reported Respiratory: + cough; no dyspnea Cardiovascular: no chest pain Gastrointestinal: + diarrhea/loose stools; no nausea and n o vomiting Genitourinary: no dysuria Integumentary: no rash Neurologic: no confusion Physical Exam Constitutional: + frail appearing Eyes: PERRL, conjunctivae normal, anicteric sclerae ENMT: external ear and nose normal, oropharynx normal Neck: trachea midline, no thyromegaly Respiratory: Auscultation: lungs clear to auscultation bilaterally Cardiovascular: RRR, no murmur, no edema Gastrointestinal (Abdomen): normal bowel sounds, soft, nontender, no hepatosplenomegaly Skin: no rashes, warm and dry Neurologic: Speech / Cognition: normal speech and normal cognition Motor/Se nsory: no asterixis Psychiatric: Affect: + anxious affect Results & Data Vital Signs (Past 12 Hours) Vital Signs Temp Pulse Pulse Resp BP Pulse Ox Pulse Ox 10/13/23 07:38 36.4 C L 81 18 146/59 H 98 10/13/23 03:53 37 C 77 18 139/57 L 97 10/12/23 23:24 36.8 C 75 18 147/65 H 98 10/12/23 23:00 98 10/12/23 22:00 74 O2 Del Method O2 Del Method O2 Flow Rate O2 Flow Rate 10/13/23 07:38 Nasal Cannula 2 10/13/23 03:53 Nasal Cannula 2 10/12/23 23:24 Nasal Cannula 2 10/12/23 23:00 Nasal Cannula 2 10/12/23 22:00 Laboratory Results Laboratory Results - last 24 hr 10/12/23 10/12/23 10/12/23 11:56 16:49 20:36 WBC RBC Hgb Hct MCV MCH MCHC RDW Std Deviation RDW Coeff of Noemy Plt Count MPV Sodium Potassium Chloride Carbon Dioxide Anion Gap BUN Creatinine Est Cr Clr Drug Dosing Est GFR ( Amer) Est GFR (Non-Af Amer) BUN/Creatinine Ratio Glucose POC Glucose 189 H 162 H 162 H Calcium 10/13/23 10/13/23 05:47 07:38 WBC 8.34 RBC 2.66 L Hgb 8.3 L Hct 25.9 L MCV 97.4 MCH 31.2 MCHC 32.0 RDW Std Deviation 49.4 H RDW Coeff of Noemy 14.0 Plt Count 190 MPV 10.6 Sodium 136 Potassium 3.6 Chloride 107 Carbon Dioxide 19 L Anion Gap 10 BUN 57 H Creatinine 4.27 H Est Cr Clr Drug Dosing 10.1 Est GFR ( Amer) 10.1 Est GFR (Non-Af Amer) 8.7 BUN/Creatinine Ratio 13.3 Glucose 123 H POC Glucose 129 H Calcium 8.8 PG Care Time/CCT Total # of Minutes Spent Total Time Spent with Patient: Total time spent is greater than 50% in coordination of care (as documented) at patient's floor/unit and/or counseling patient: Coding Level of Care Code 77978 SUB INP/OBS CARE 3/50MIN Diagnoses MISTI (acute kidney injury) N17.9 Stage 5 chronic kidney disease not on chronic dialysis N18.5 Chronic kidney disease stage: stage 5, not on chronic dialysis COVID-19 U07.1 C. difficile colitis A04.72 (2) CKD (chronic kidney disease) Chronic kidney disease stage: stage 5, not on chronic dialysis Qualified Code(s): N18.5 - Chronic kidney disease, stage 5
[2023-10-13] MEDS: INSULIN ASPART PER UNIT CHARGE SC SCH ×4 (09:07→20:48)
[2023-10-13] MEDS: LANTUS PER UNIT CHARGE SQ SCH (09:10)
[2023-10-13] MEDS: carvediloL 25 MG TAB PO SCH ×2 (09:33→17:23)
[2023-10-13] MEDS: ACETAMINOPHEN 500 MG TAB PO SCH ×2 (09:33→20:38)
[2023-10-13] MEDS: ISOSORBIDE DINITRATE 40 MG TAB PO SCH ×3 (09:33→17:23)
[2023-10-13] MEDS: PANTOprazole 40 MG TAB PO SCH (09:33)
[2023-10-13] MEDS: CYANOCOBALAMIN (B-12) 500 MCG TABLET PO SCH (09:34)
[2023-10-13] MEDS: hydrALAZINE TAB 50 MG TAB PO SCH ×3 (09:34→20:39)
[2023-10-13] MEDS: SACCHAROMYCES BOULARDII 250 MG CAP PO SCH (09:34)
[2023-10-13] MEDS: FIDAXOMICIN 200 MG TAB PO SCH ×2 (09:34→20:50)
[2023-10-13] MEDS: amLODIPine BESYLATE 5 MG TAB PO SCH (09:34)
[2023-10-13] MEDS: ASPIRIN 81 MG ECTAB PO SCH (09:34)
[2023-10-13] MEDS: LIDOCAINE 5% 1 PATCH TD SCH (09:34)
[2023-10-13] MEDS: allopurinoL 100 MG TAB PO SCH (12:22)
--- NOTE | 2023-10-13 14:17 | Hospitalist Progress Note ---
Date of Service October 13, 2023 Assessment & Plan (1) Hypertensive crisis: Plan: Hypertensive crisis: Plan: Worsening kidney dysfunction, ARF on CKD Spironolactone intolerance Presenting as transient headache symptoms secondary to very high blood pressure IV labetalol 1 dose now Titrate home BP meds Clinically much better since admission Blood pressure is well-controlled as of now Headache is much better Denies any more headache and the blood pressure is controlled Blood pressure is reasonably controlled and denies no more headache Acute kidney injury on chronic kidney disease Has been making out enough urine If creatinine does not improve or get worse will get nephrology involved Creatinine has been going up and is more than 4 today likely secondary to dehydration from ongoing diarrhea Appreciate nephrology input and recommendation Will monitor PRP-creatinine has been creeping up Nephrology has been following-no need for dialysis as of yet COVID-19 illness Does not have any respiratory symptoms Has been requiring 1 L to maintain saturation Will not put any medications for COVID-19 infection Denies any respiratory symptoms Has minimal cough and requiring 2 L to maintain saturation 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 difficile Possible sepsis Flagyl 1 dose for possible C. difficile given possible sepsis Dificid course if with recurrent C. difficile Still having diarrhea and will not administer any antidiarrheal for now Still having profuse diarrhea and making her dehydrated with impairment of kidney function Diarrhea is slightly better and this is making her weak and lethargic and dehydration as well Advised to drink little bit more fluid chronic diastolic heart failure, patient on the dry side chronic LBBB PAF as per records, patient NSR No signs and or symptoms of fluid overload hx PVD DM2 insulin requiring, well-controlled as of recent hemoglobin A1c of 6.62 months ago Basal bolus insulin, ISS BG goal 1 10-1 40, carb count carbs PT OT eval Cchronic anemia, hemoglobin at baseline DVT prophylaxis with heparin subcu Full code Patient son requesting updates providers. Mr. Tenzin Araya, contact #[phone]. Will need to stay few more days before things are better Admission and Anticipated Discharge Date Admission Date: October 10, 2023 Subjective 10/11/2023 The patient was seen and examined in telemetry unit and in the COVID room She has been feeling weakness and tiredness and continues to have loose bowel movements Has abdominal pain as well without nausea and or vomiting No significant respiratory symptoms 10/12/2023 The patient was seen and examined in telemetry unit and in the COVID room She is a little better today but is still having profuse diarrhea Denies any significant abdominal pain and does not have any respiratory symptoms 10/13/2023 The patient was seen and examined in telemetry unit and in the COVID room She remains generally weak and lethargic and is still having diarrhea though the diarrhea is little bit better today Has cough but no shortness of breath at rest Has abdominal discomfort but no pain Review of Systems Review of Systems: All systems reviewed and are unremarkable except as noted below Physical Exam Physical Exam: Lying in bed comfortably Constitutional: well developed, well nourished, + ill appearing and + obese Eyes: PERRL, conjunctivae normal, anicteric sclerae ENMT: external ear and nose normal, oropharynx normal Neck: trachea midline, no thyromegaly Respiratory: no respiratory distress Auscultation: + diminished lung sounds and + crackles (Minimal crackles at the bases) Cardiovascular: Rate/Rhythm: regular rate and regular rhythm; not tachycardic Heart Sounds: normal S1 and normal S2; no murmur Extremities: no edema Gastrointestinal (Abdomen): Inspection/Auscultation: normal bowel sounds; abdomen not distended Percussion/Palpation: + abdomen tender and abdomen soft Neurologic: normal touch/pain/proprioception and moves all extremities; no focal motor deficits Lymphatic: no cervical or axillary lymphadenopathy Results & Data Results & Data Vital Signs (Past 12 Hours) Vital Signs Temp Pulse Resp BP Pulse Ox O2 Del Method O2 Flow Rate 10/13/23 13:54 Nasal Cannula 2 10/13/23 11:35 36.5 C 86 18 154/62 H 97 Room Air 10/13/23 07:38 36.4 C L 81 18 146/59 H 98 Nasal Cannula 2 10/13/23 03:53 37 C 77 18 139/57 L 97 Nasal Cannula 2 Laboratory Results Short CBC 10/13/23 Range/Units 05:47 WBC 8.34 (4.8-10.8) K/ul Hgb 8.3 L (12.0-16.0) g/dl Hct 25.9 L (37.0-47.0) % Plt Count 190 (130-400) K/uL BMP 10/13/23 05:47 Sodium 136 Potassium 3.6 Chloride 107 Carbon Dioxide 19 L BUN 57 H Creatinine 4.27 H Glucose 123 H Calcium 8.8 Medications Administered Current Inpatient Medications Acetaminophen (Acetaminophen 500 Mg Tab) 1,000 mg PO BID [facility] Stop: 11/10/23 08:59 Last Admin: 10/13/23 09:33 Dose: 1,000 mg Allopurinol (Allopurinol 100 Mg Tab) 200 mg PO QDL [facility] Stop: 11/10/23 11:29 Last Admin: 10/13/23 12:22 Dose: 200 mg Amlodipine Besylate (Amlodipine Besylate 5 Mg Tab) 5 mg PO QAM [facility] Stop: 11/10/23 08:59 Last Admin: 10/13/23 09:34 Dose: 5 mg Aspirin (Aspirin 81 Mg Ectab) 81 mg PO [facility] Stop: 11/10/23 08:59 Last Admin: 10/13/23 09:34 Dose: 81 mg Carvedilol (Carvedilol 25 Mg Tab) 25 mg PO BIDM [facility] Stop: 11/10/23 07:59 Last Admin: 10/13/23 09:33 Dose: 25 mg Cyanocobalamin (Cyanocobalamin (B-12) 500 Mcg Tablet) 500 mcg PO QAM [facility] Stop: 11/10/23 08:59 Last Admin: 10/13/23 09:34 Dose: 500 mcg Dextrose (Dextrose 50% 50 Ml Syringe) 25 - 50 ml IV UD PRN; Protocol PRN Reason: Hypoglycemia Protocol Stop: 11/09/23 23:55 Famotidine (Famotidine 20 Mg Tab) 20 mg PO QDD [facility] Stop: 11/10/23 16:29 Last Admin: 10/12/23 17:30 Dose: 20 mg Fidaxomicin (Fidaxomicin 200 Mg Tab) 200 mg PO BID [facility] Stop: 10/21/23 01:09 Last Admin: 10/13/23 09:34 Dose: 200 mg Glucagon (Glucagon For Inj 1 Mg Vial) 1 mg SQ UD PRN; Protocol PRN Reason: Hypoglycemia Protocol Stop: 11/09/23 23:55 Glucose (Glucose 10 Tab/Tube) 4 - 8 tab PO UD PRN; Protocol PRN Reason: Hypoglycemia Treatment Stop: 11/09/23 23:55 Glucose (Glucose 40% Gel 15 Gm Tube) 15 - 30 gm PO UD PRN; Protocol PRN Reason: Hypoglycemia Protocol Stop: 11/09/23 23:55 Heparin Sodium (Porcine) (Heparin Sod 5,000 Unit/0.5 Ml Vial) 5,000 units SQ Q8H [facility] Stop: 11/10/23 05:59 Last Admin: 10/13/23 12:22 Dose: 5,000 units Hydralazine HCl (Hydralazine Tab 50 Mg Tab) 100 mg PO TID [facility] Stop: 11/09/23 23:55 Last Admin: 10/13/23 12:22 Dose: 100 mg Hydroxyzine HCl (Hydroxyzine Hcl 10 Mg Tab) 10 mg PO QID PRN PRN Reason: Anxiety Stop: 11/09/23 22:15 Promethazine HCl 6.25 mg/ (Sodium Chloride) 50.25 mls @ 201 mls/hr IV Q6H PRN PRN Reason: Nausea And Vomiting Stop: 11/09/23 22:15 Insulin Aspart (Insulin Aspart Per Unit Charge) 0 units SC ACHS [facility] Stop: 11/09/23 23:55 Last Admin: 10/13/23 12:17 Dose: 4 units Insulin Glargine (Lantus Per Unit Charge) 5 units SQ DAILY [facility] Stop: 11/10/23 08:59 Last Admin: 10/13/23 09:10 Dose: 5 units Isosorbide Dinitrate (Isosorbide Dinitrate 40 Mg Tab) 40 mg PO TID@0700,1200,1700 [facility] Stop: 11/10/23 06:59 Last Admin: 10/13/23 12:22 Dose: 40 mg Lidocaine (Lidocaine 5% 1 Patch) 1 patch TD DAILY [facility] Stop: 11/10/23 08:59 Last Admin: 10/13/23 09:34 Dose: 1 patch Miscellaneous (Remove Lidoderm Patch) 1 each N/A DAILY@2100 [facility] Stop: 11/10/23 20:59 Last Admin: 10/12/23 20:48 Dose: 1 each Miscellaneous (Carbohydrates For Hypoglycemia ) 15 - 30 gm PO UD PRN PRN Reason: Hypoglycemia Protocol Stop: 11/09/23 23:55 Pantoprazole Sodium (Pantoprazole 40 Mg Tab) 40 mg PO QAM [facility] Stop: 11/10/23 08:59 Last Admin: 10/13/23 09:33 Dose: 40 mg Polyethylene Glycol (Polyethylene (Miralax) 17 Gm Pack) 17 gm PO BID PRN PRN Reason: Constipation Stop: 11/09/23 23:55 Rosuvastatin Calcium (Rosuvastatin Calcium 10 Mg Tab) 10 mg PO HS [facility] Stop: 11/10/23 20:59 Last Admin: 10/12/23 20:45 Dose: 10 mg Saccharomyces Boulardii (Saccharomyces Boulardii 250 Mg Cap) [facility] [place] Stop: 11/10/23 08:59 Last Admin: 10/13/23 09:34 Dose: 250 mg Sennosides (Senna 8.6 Mg Tab) 8.6 mg PO HS PRN PRN Reason: Constipation Stop: 11/09/23 23:55
[2023-10-13] MEDS: FAMOTIDINE 20 MG TAB PO SCH (17:23)
--- NOTE | 2023-10-13 18:14 | Electrocardiogram Report ---
Test Reason : Blood Pressure : / mmHG Vent. Rate : 097 BPM Atrial Rate : 097 BPM P-R Int : 168 ms QRS Dur : 098 ms QT Int : 334 ms P-R-T Axes : 036 -02 065 degrees QTc Int : 424 ms Sinus rhythm with Premature atrial complexes Moderate voltage criteria for LVH, may be normal variant ( R in aVL , Tay product ) Borderline ECG When compared with ECG of 26-SEP-2023 08:19, Premature atrial complexes are now Present Confirmed by Andrew Mendes ([id number]) on 10/13/2023 6:13:40 PM Referred By: REFERRED SELF Confirmed By:Andrew Mendes
[2023-10-13] MEDS: ROSUVASTATIN CALCIUM 10 MG TAB PO SCH (20:38)
[2023-10-14] MEDS: HEPARIN SOD 5,000 UNIT/0.5 ML VIAL SQ SCH ×3 (06:21→20:52)
--- NOTE | 2023-10-14 07:11 | XRay Report ---
XR chest 1V portable CLINICAL HISTORY: Covid. COMPARISON STUDY: Chest radiograph October 10, 2023. Chest CT June 16, 2022. FINDINGS: No pneumothorax or pleural effusion. Cardiomegaly is again noted. Pulmonary vascular conges tion has slightly improved. No consolidation is identified. IMPRESSION: Cardiomegaly. Slight improvement in pulmonary vascular congestion. ACT 112: Negative or not required by law. Electronically signed by: Chai Morales M.D. 10/14/2023 7:09 AM
[2023-10-14 08:38] LABS: Basophils # (auto) 0.03 K/uL (0.00-0.20); Basophils % (auto) 0.3 %; Eosinophils % (auto) 2.3 %; Hematocrit (blood only) 26.1 % (37.0-47.0); Hemoglobin 8.7 g/dl (12.0-16.0); Immature Granulocytes # (auto) 0.11 K/uL (0.01-0.20); Immature Granulocytes % (auto) 1.3 %; Lymphocytes # (auto) 0.92 K/uL (1.20-3.40); Lymphocytes % (auto) 10.6 %; Mean Corpuscular Hemoglobin 31.5 pg (25.0-34.0); Mean Corpuscular Hgb Conc 33.3 g/dL (32.0-36.0); Mean Corpuscular Volume 94.6 fL (80.0-100.0); Mean Platelet Volume 9.8 fL (9.4-12.4); Monocytes # (auto) 0.61 K/uL (0.11-0.59); Monocytes % (auto) 7.1 %; Neutrophils # (auto) 6.77 K/uL (1.40-6.50); Neutrophils % (auto) 78.4 %; Platelet Count 237 K/uL (130-400); RDW Coefficient of Variation 14.2 % (11.5-14.5); RDW Standard Deviation 49.4 fL (36.4-46.3); Red Blood Count 2.76 M/uL (4.20-5.40); White Blood Count 8.64 K/ul (4.8-10.8)
[2023-10-14] MEDS: INSULIN ASPART PER UNIT CHARGE SC SCH ×4 (08:46→20:12)
[2023-10-14] MEDS: LANTUS PER UNIT CHARGE SQ SCH (08:47)
[2023-10-14 08:54] LABS: BUN Creatinine Ratio 14.5 (10-20); Calcium 9.3 mg/dl (8.6-10.3); Creatinine Clr Calc Pharmacy 10.8 ml/min; Est GFR (African American) 10.9 ml/min; Est GFR (Non-African American) 9.4 ml/min; Phosphorus 4.3 mg/dl (2.5-4.9); Potassium 3.7 mmol/L (3.5-5.1)
[2023-10-14] MEDS: hydrALAZINE TAB 50 MG TAB PO SCH ×3 (09:00→20:54)
[2023-10-14] MEDS: FIDAXOMICIN 200 MG TAB PO SCH ×2 (09:00→20:50)
[2023-10-14] MEDS: hydrOXYzine HCl 10 MG TAB PO PRN (09:00)
[2023-10-14] MEDS: ACETAMINOPHEN 500 MG TAB PO SCH ×2 (09:01→20:52)
[2023-10-14] MEDS: CYANOCOBALAMIN (B-12) 500 MCG TABLET PO SCH (09:01)
[2023-10-14] MEDS: PANTOprazole 40 MG TAB PO SCH (09:01)
[2023-10-14] MEDS: amLODIPine BESYLATE 5 MG TAB PO SCH (09:01)
[2023-10-14] MEDS: ISOSORBIDE DINITRATE 40 MG TAB PO SCH ×3 (09:01→17:12)
[2023-10-14] MEDS: carvediloL 25 MG TAB PO SCH ×2 (09:01→17:14)
[2023-10-14] MEDS: SACCHAROMYCES BOULARDII 250 MG CAP PO SCH (09:02)
[2023-10-14] MEDS: ASPIRIN 81 MG ECTAB PO SCH (09:02)
[2023-10-14] MEDS: LIDOCAINE 5% 1 PATCH TD SCH (09:02)
--- NOTE | 2023-10-14 11:58 | Nephrology Progress Note ---
Date of Service October 14, 2023 Assessment & Plan (1) MISTI (acute kidney injury): Plan: 87 year old F with stage G5 CKD, b/l Cr 3.0 mg/dl, eGFR 13 cc/min due to DKD, HTN and microvascular disease, valvular heart disease w/ moderate MR, nocturnal hypoxemia requiring home O2, pulmonary HTN, osteopenia, C. Difficile colitis, presented on 10/10/23 with Hypertensive urgency, SOB, diarrhea and fatigue due to COVID and C. Diff colitis. Cr was 4.2. Urinalysis was unremarkable. 09/26/[address] without IV contrast showed atrophic kidneys without obstruction. 5.9 cm complex lesion in L renal pelvis is unchanged from prior imaging. CXR was without overt CHF. Dificid has been added to treat C. Difficile. She has left brachiocephalic AV fistula placed a month ago. BP slightly improved and has been variable, on amlodipine, carvedilol, hydralazine and Imdur. kidney function improved slightly, creatinine down to 4.0 this morning, metabolic acidosis. Reports voiding normally. --Encourage increase p.o. intake, dose medications for eGFR less than 15 , avoid all nephrotoxic medications. --Will check iron study and phosphorus with next lab, may need IV iron or Epogen as hemoglobin has been staying low. --Start on sodium bicarbonate 650 mg twice a day. --No acute indication for dialysis at this time, continue to monitor renal function, volume status and electrolyte daily. Admission and Anticipated Discharge Date Admission Date: October 10, 2023 Priya Plascencia was seen and evaluated in ICU this morning. She continues to have cough but denies significant shortness of breath. Reports slight improvement in diarrhea. Blood pressure has been variable. Slightly improved, creatinine down to 2.0. Reports decent urine output. She complained about the cafeteria food and not able to have choices with the menu. Review of Systems Review of Systems: Detailed review of system was done and pertinent positives and negatives are mentioned above. Physical Exam Constitutional: WD/WN, vitals as above no acute distress Eyes: + anicteric sclerae Neck: normal visual inspection Respiratory: no respiratory distress Auscultation: lungs clear to auscultation bilaterally Cardiovascular: Rate/Rhythm: regular rate and regular rhythm Heart Sounds: normal S1 and normal S2 Extremities: + AV fistula (left BC AVF with thrill and bruit); no edema Skin: no rashes, warm and dry Neurologic: no focal motor deficits Psychiatric: Orientation: alert and oriented x 3 Results & Data Vital Signs (Past 12 Hours) Vital Signs Temp Pulse Pulse Resp BP Pulse Ox O2 Del Method 10/14/23 09:00 Nasal Cannula 10/14/23 07:52 36.6 C 69 18 163/62 H 98 Nasal Cannula 10/14/23 06:00 70 10/14/23 04:16 36.5 C 71 18 153/68 H 99 Nasal Cannula 10/14/23 00:06 37.0 C 73 18 151/54 H 99 Nasal Cannula O2 Flow Rate 10/14/23 09:00 2 10/14/23 07:52 2 10/14/23 06:00 10/14/23 04:16 2 10/14/23 00:06 2 PG Care Time/CCT Total # of Minutes Spent Total Time Spent with Patient: Total time spent is greater than 50% in coordination of care (as documented) at patient's floor/unit and/or counseling patient: Coding Level of Care Code 76637 SUB INP/OBS CARE 3/50MIN Diagnoses MISTI (acute kidney injury) N17.9
[2023-10-14] MEDS: allopurinoL 100 MG TAB PO SCH (13:05)
--- NOTE | 2023-10-14 14:01 | Hospitalist Progress Note ---
Date of Service October 14, 2023 Assessment & Plan (1) Hypertensive crisis: Plan: Hypertensive crisis: Plan: Worsening kidney dysfunction, ARF on CKD Spironolactone intolerance Presenting as transient headache symptoms secondary to very high blood pressure IV labetalol 1 dose now Titrate home BP meds Clinically much better since admission Blood pressure is well-controlled as of now Headache is much better Denies any more headache and the blood pressure is controlled Blood pressure is reasonably controlled and denies no more headache Acute kidney injury on chronic kidney disease Has been making out enough urine If creatinine does not improve or get worse will get nephrology involved Creatinine has been going up and is more than 4 today likely secondary to dehydration from ongoing diarrhea Appreciate nephrology input and recommendation Will monitor PRP-creatinine has been creeping up Nephrology has been following-no need for dialysis as of yet Kidney function is little better today with creatinine little improved to 4.0 Advised to drink more fluid-will not give any intravenous fluid Needed PRP COVID-19 illness Does not have any respiratory symptoms Has been requiring 1 L to maintain saturation Will not put any medications for COVID-19 infection Denies any respiratory symptoms Has minimal cough and requiring 2 L to maintain saturation Has cough and will give some cough suppressant 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 difficile Possible sepsis Flagyl 1 dose for possible C. difficile given possible sepsis Dificid course if with recurrent C. difficile Still having diarrhea and will not administer any antidiarrheal for now Still having profuse diarrhea and making her dehydrated with impairment of kidney function Diarrhea is slightly better and this is making her weak and lethargic and dehydration as well Diarrhea seems to be controlled and has had only 1 bowel movement since this morning chronic diastolic heart failure, patient on the dry side chronic LBBB PAF as per records, patient NSR No signs and or symptoms of fluid overload hx PVD DM2 insulin requiring, well-controlled as of recent hemoglobin A1c of 6.62 months ago Basal bolus insulin, ISS BG goal 1 10-1 40, carb count carbs PT OT eval Cchronic anemia, hemoglobin at baseline DVT prophylaxis with heparin subcu Full code Patient son requesting updates providers. Mr. Tenzin Araya, contact #[phone]. Will need to stay few more days before things are better Will need to stay for a few more days before discharged Admission and Anticipated Discharge Date Admission Date: October 10, 2023 Subjective 10/11/2023 The patient was seen and examined in telemetry unit and in the COVID room She has been feeling weakness and tiredness and continues to have loose bowel movements Has abdominal pain as well without nausea and or vomiting No significant respiratory symptoms 10/12/2023 The patient was seen and examined in telemetry unit and in the COVID room She is a little better today but is still having profuse diarrhea Denies any significant abdominal pain and does not have any respiratory symptoms 10/13/2023 The patient was seen and examined in telemetry unit and in the COVID room She remains generally weak and lethargic and is still having diarrhea though the diarrhea is little bit better today Has cough but no shortness of breath at rest Has abdominal discomfort but no pain 10/14/2023 The patient was seen and examined in telemetry unit and in the COVID room She has been feeling a little better and the diarrhea seems to be controlled Complains to have cough without any shortness of breath Has been requiring 2 L to maintain saturation Remains generally weak Review of Systems Review of Systems: All systems reviewed and are unremarkable except as noted below Physical Exam Physical Exam: Lying in bed comfortably Constitutional: well developed, well nourished, + ill appearing and + obese Eyes: PERRL, conjunctivae normal, anicteric sclerae ENMT: external ear and nose normal, oropharynx normal Neck: trachea midline, no thyromegaly Respiratory: no respiratory distress Auscultation: + diminished lung sounds and + crackles (Minimal crackles at the bases) Cardiovascular: Rate/Rhythm: regular rate and regular rhythm; not tachycardic Heart Sounds: normal S1 and normal S2; no murmur Extremities: no edema Gastrointestinal (Abdomen): Inspection/Auscultation: normal bowel sounds; abdomen not distended Percussion/Palpation: + abdomen tender and abdomen soft Neurologic: normal touch/pain/proprioception and moves all extremities; no focal motor deficits Lymphatic: no cervical or axillary lymphadenopathy Results & Data Results & Data Vital Signs (Past 12 Hours) Vital Signs Temp Pulse Pulse Resp BP Pulse Ox O2 Del Method 10/14/23 12:23 36.8 C 58 L 18 136/64 92 Nasal Cannula 10/14/23 09:00 Nasal Cannula 10/14/23 07:52 36.6 C 69 18 163/62 H 98 Nasal Cannula 12/23/23 06:00 70 10/14/23 04:16 36.5 C 71 18 153/68 H 99 Nasal Cannula O2 Flow Rate 10/14/23 12:23 2 10/14/23 09:00 2 10/14/23 07:52 2 10/14/23 06:00 10/14/23 04:16 2 Laboratory Results Short CBC 10/14/23 Range/Units 08:13 WBC 8.64 (4.8-10.8) K/ul Hgb 8.7 L (12.0-16.0) g/dl Hct 26.1 L (37.0-47.0) % Plt Count 237 (130-400) K/uL BMP 10/14/23 08:13 Sodium 135 L Potassium 3.7 Chloride 106 Carbon Dioxide 19 L BUN 58 H Creatinine 4.01 H Glucose 116 H Calcium 9.3 Medications Administered Current Inpatient Medications Acetaminophen (Acetaminophen 500 Mg Tab) 1,000 mg PO BID [facility] Stop: 11/10/23 08:59 Last Admin: 10/14/23 09:01 Dose: 1,000 mg Allopurinol (Allopurinol 100 Mg Tab) 200 mg PO QDL [facility] Stop: 11/10/23 11:29 Last Admin: 10/14/23 13:05 Dose: 200 mg Amlodipine Besylate (Amlodipine Besylate 5 Mg Tab) 5 mg PO QAM [facility] Stop: 11/10/23 08:59 Last Admin: 10/14/23 09:01 Dose: 5 mg Aspirin (Aspirin 81 Mg Ectab) 81 mg PO QAM [facility] Stop: 11/10/23 08:59 Last Admin: 10/14/23 09:02 Dose: 81 mg Carvedilol (Carvedilol 25 Mg Tab) 25 mg PO BIDM [facility] Stop: 11/10/23 07:59 Last Admin: 10/14/23 09:01 Dose: 25 mg Cyanocobalamin (Cyanocobalamin (B-12) 500 Mcg Tablet) 500 mcg PO QAM [facility] Stop: 11/10/23 08:59 Last Admin: 10/14/23 09:01 Dose: 500 mcg Dextrose (Dextrose 50% 50 Ml Syringe) 25 - 50 ml IV UD PRN; Protocol PRN Reason: Hypoglycemia Protocol Stop: 11/09/23 23:55 Famotidine (Famotidine 20 Mg Tab) 20 mg PO QDD [facility] Stop: 11/10/23 16:29 Last Admin: 10/13/23 17:23 Dose: 20 mg Fidaxomicin (Fidaxomicin 200 Mg Tab) 200 mg PO BID [facility] Stop: 10/21/23 01:09 Last Admin: 10/14/23 09:00 Dose: 200 mg Glucagon (Glucagon For Inj 1 Mg Vial) 1 mg SQ UD PRN; Protocol PRN Reason: Hypoglycemia Protocol Stop: 11/09/23 23:55 Glucose (Glucose 10 Tab/Tube) 4 - 8 tab PO UD PRN; Protocol PRN Reason: Hypoglycemia Treatment Stop: 11/09/23 23:55 Glucose (Glucose 40% Gel 15 Gm Tube) 15 - 30 gm PO UD PRN; Protocol PRN Reason: Hypoglycemia Protocol Stop: 11/09/23 23:55 Heparin Sodium (Porcine) (Heparin Sod 5,000 Unit/0.5 Ml Vial) 5,000 units SQ Q8H [facility] Stop: 11/10/23 05:59 Last Admin: 10/14/23 13:05 Dose: 5,000 units Hydralazine HCl (Hydralazine Tab 50 Mg Tab) 100 mg PO TID [facility] Stop: 11/09/23 23:55 Last Admin: 10/14/23 13:05 Dose: 100 mg Hydroxyzine HCl (Hydroxyzine Hcl 10 Mg Tab) 10 mg PO QID PRN PRN Reason: Anxiety Stop: 11/09/23 22:15 Last Admin: 10/14/23 09:00 Dose: 10 mg Promethazine HCl 6.25 mg/ (Sodium Chloride) 50.25 mls @ 201 mls/hr IV Q6H PRN PRN Reason: Nausea And Vomiting Stop: 11/09/23 22:15 Insulin Aspart (Insulin Aspart Per Unit Charge) 0 units SC ACHS [facility] Stop: 11/09/23 23:55 Last Admin: 10/14/23 12:49 Dose: 6 units Insulin Glargine (Lantus Per Unit Charge) 5 units SQ DAILY [facility] Stop: 11/10/23 08:59 Last Admin: 10/14/23 08:47 Dose: 5 units Isosorbide Dinitrate (Isosorbide Dinitrate 40 Mg Tab) 40 mg PO TID@0700,1200,1700 [facility] Stop: 11/10/23 06:59 Last Admin: 10/14/23 13:05 Dose: 40 mg Lidocaine (Lidocaine 5% 1 Patch) 1 patch TD DAILY [facility] Stop: 11/10/23 08:59 Last Admin: 10/14/23 09:02 Dose: 1 patch Miscellaneous (Remove Lidoderm Patch) 1 each N/A DAILY@2100 [facility] Stop: 11/10/23 20:59 Last Admin: 10/13/23 20:40 Dose: 1 each Miscellaneous (Carbohydrates For Hypoglycemia ) 15 - 30 gm PO UD PRN PRN Reason: Hypoglycemia Protocol Stop: 11/09/23 23:55 Pantoprazole Sodium (Pantoprazole 40 Mg Tab) 40 mg PO QAM [facility] Stop: 11/10/23 08:59 Last Admin: 10/14/23 09:01 Dose: 40 mg Polyethylene Glycol (Polyethylene (Miralax) 17 Gm Pack) 17 gm PO BID PRN PRN Reason: Constipation Stop: 11/09/23 23:55 Rosuvastatin Calcium (Rosuvastatin Calcium 10 Mg Tab) 10 mg PO HS [facility] Stop: 11/10/23 20:59 Last Admin: 10/13/23 20:38 Dose: 10 mg Saccharomyces Boulardii (Saccharomyces Boulardii 250 Mg Cap) 250 mg PO QAM [facility] Stop: 11/10/23 08:59 Last Admin: 10/14/23 09:02 Dose: 250 mg Sennosides (Senna 8.6 Mg Tab) 8.6 mg PO HS PRN PRN Reason: Constipation Stop: 11/09/23 23:55
[2023-10-14] MEDS: FAMOTIDINE 20 MG TAB PO SCH (17:14)
[2023-10-14] MEDS: ROSUVASTATIN CALCIUM 10 MG TAB PO SCH (20:54)
[2023-10-15] MEDS: HEPARIN SOD 5,000 UNIT/0.5 ML VIAL SQ SCH ×3 (05:45→21:07)
[2023-10-15 06:01] LABS: Hematocrit (blood only) 24.2 % (37.0-47.0); Hemoglobin 8.1 g/dl (12.0-16.0); Mean Corpuscular Hgb Conc 33.5 g/dL (32.0-36.0); Mean Corpuscular Volume 92.7 fL (80.0-100.0); Mean Platelet Volume 9.7 fL (9.4-12.4); Platelet Count 238 K/uL (130-400); RDW Coefficient of Variation 13.8 % (11.5-14.5); RDW Standard Deviation 47.2 fL (36.4-46.3); Red Blood Count 2.61 M/uL (4.20-5.40)
[2023-10-15 06:17] LABS: Albumin Level 3.5 gm/dl (3.4-5.0); BUN Creatinine Ratio 16.2 (10-20); Calcium 9.3 mg/dl (8.6-10.3); Creatinine Clr Calc Pharmacy 11.4 ml/min; Est GFR (African American) 11.5 ml/min; Est GFR (Non-African American) 9.9 ml/min; Phosphorus 4.2 mg/dl (2.5-4.9); Potassium 3.8 mmol/L (3.5-5.1)
[2023-10-15 06:36] LABS: Ferritin 206.4 ng/ml (8-388)
[2023-10-15] MEDS: INSULIN ASPART PER UNIT CHARGE SC SCH ×4 (09:11→21:18)
[2023-10-15] MEDS: hydrALAZINE TAB 50 MG TAB PO SCH ×3 (09:19→21:05)
[2023-10-15] MEDS: ACETAMINOPHEN 500 MG TAB PO SCH ×2 (09:19→21:05)
[2023-10-15] MEDS: amLODIPine BESYLATE 5 MG TAB PO SCH (09:20)
[2023-10-15] MEDS: PANTOprazole 40 MG TAB PO SCH (09:20)
[2023-10-15] MEDS: CYANOCOBALAMIN (B-12) 500 MCG TABLET PO SCH (09:20)
[2023-10-15] MEDS: ASPIRIN 81 MG ECTAB PO SCH (09:20)
[2023-10-15] MEDS: hydrOXYzine HCl 10 MG TAB PO PRN (09:20)
[2023-10-15] MEDS: SACCHAROMYCES BOULARDII 250 MG CAP PO SCH (09:20)
[2023-10-15] MEDS: carvediloL 25 MG TAB PO SCH ×2 (09:21→17:43)
[2023-10-15] MEDS: LIDOCAINE 5% 1 PATCH TD SCH (09:21)
[2023-10-15] MEDS: ISOSORBIDE DINITRATE 40 MG TAB PO SCH ×3 (09:21→17:43)
[2023-10-15] MEDS: LANTUS PER UNIT CHARGE SQ SCH (09:32)
[2023-10-15] MEDS: FIDAXOMICIN 200 MG TAB PO SCH ×2 (09:39→21:19)
--- NOTE | 2023-10-15 11:59 | Nephrology Progress Note ---
Date of Service October 15, 2023 Assessment & Plan (1) MISTI (acute kidney injury): Plan: 87 year old F with stage G5 CKD, b/l Cr 3.0 mg/dl, eGFR 13 cc/min due to DKD, HTN and microvascular disease, valvular heart disease w/ moderate MR, nocturnal hypoxemia requiring home O2, pulmonary HTN, osteopenia, C. Difficile colitis, presented on 10/10/23 with Hypertensive urgency, SOB, diarrhea and fatigue due to COVID and C. Diff colitis. Cr was 4.2. Urinalysis was unremarkable. 09/26/[address] without IV contrast showed atrophic kidneys without obstruction. 5.9 cm complex lesion in L renal pelvis is unchanged from prior imaging. CXR was without overt CHF. Dificid has been added to treat C. Difficile. She has left brachiocephalic AV fistula placed a month ago. Overall clinically doing better, diarrhea resolved, blood pressure improved. But continues to feel extremely weak and tired. Hemoglobin 8.1 with adequate iron store. Slight improvement in renal function noted, creatinine down to 3.8, metabolic acidosis. Reports voiding normally. --Encourage increase p.o. intake, dose medications for eGFR less than 15 , avoid all nephrotoxic medications. --start sodium bicarbonate 650 mg twice a day. --Epogen 20,000 units x 1 dose today --Okay to be discharge with close outpatient monitoring, when clinically stable. Admission and Anticipated Discharge Date Admission Date: October 10, 2023 Priya Plascencia was seen and evaluated in ICU this morning. She reports improvement in cough and SOB but feels generally weak. Diarrhea seem to have resolved. Blood pressure improved and has been staying well-controlled. Voiding normally. Slight improvement in renal function, creatinine down to 3.8. Hemoglobin has be en low, 8.1, has metabolic acidosis. Review of Systems Review of Systems: Detailed review of system was done and pertinent positives and negatives are mentioned above. Physical Exam Constitutional: WD/WN, vitals as above no acute distress Respiratory: no respiratory distress Auscultation: lungs clear to auscultation bilaterally Cardiovascular: Rate/Rhythm: regular rate and regular rhythm Heart Sounds: normal S1 and normal S2 Extremities: + AV fistula (left BC AVF with thrill and bruit); no edema Skin: no rashes, warm and dry Neurologic: no focal motor deficits Psychiatric: Orientation: alert and oriented x 3 Results & Data Vital Signs (Past 12 Hours) Vital Signs Temp Pulse Resp BP Pulse Ox O2 Del Method O2 Flow Rate 10/15/23 09:30 Nasal Cannula 2 10/15/23 08:15 37.0 C 81 18 129/86 96 Nasal Cannula 2 10/15/23 03:30 37.4 C 67 20 135/72 97 Nasal Cannula 2 PG Care Time/CCT Total # of Minutes Spent Total Time Spent with Patient: Total time spent is greater than 50% in coordination of care (as documented) at patient's floor/unit and/or counseling patient: Coding Level of Care Code 73240 SUB INP/OBS CARE 2/35MIN Diagnoses MISTI (acute kidney injury) N17.9
[2023-10-15] MEDS ORDERED: EPOETIN ALFA 20,000 UNITS/ML VIAL SQ STA (12:01)
--- NOTE | 2023-10-15 13:02 | Hospitalist Progress Note ---
Date of Service October 15, 2023 Assessment & Plan (1) Hypertensive crisis: Plan: Hypertensive crisis: Plan: Worsening kidney dysfunction, ARF on CKD Spironolactone intolerance Presenting as transient headache symptoms secondary to very high blood pressure IV labetalol 1 dose now Titrate home BP meds Clinically much better since admission Blood pressure is well-controlled as of now Headache is much better Denies any more headache and the blood pressure is controlled Blood pressure is reasonably controlled and denies no more headache No issues with blood pressure Acute kidney injury on chronic kidney disease Has been making out enough urine If creatinine does not improve or get worse will get nephrology involved Creatinine has been going up and is more than 4 today likely secondary to dehydration from ongoing diarrhea Appreciate nephrology input and recommendation Will monitor PRP-creatinine has been creeping up Nephrology has been following-no need for dialysis as of yet Kidney function is little better today with creatinine little improved to 4.0 Advised to drink more fluid-will not give any intravenous fluid Creatinine has been improving and seems to be around her baseline We will monitor PRP COVID-19 illness Does not have any respiratory symptoms Has been requiring 1 L to maintain saturation Will not put any medications for COVID-19 infection Denies any respiratory symptoms Has minimal cough and requiring 2 L to maintain saturation Has cough and will give some cough suppressant Cough is better and does not have any respiratory symptoms at rest 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 difficile Possible sepsis Flagyl 1 dose for possible C. difficile given possible sepsis Dificid course if with recurrent C. difficile Still having diarrhea and will not administer any antidiarrheal for now Still having profuse diarrhea and making her dehydrated with impairment of kidney function Diarrhea is slightly better and this is making her weak and lethargic and dehydration as well Diarrhea seems to be controlled and has had only 1 bowel movement since this morning Diarrhea has improved a lot and will continue current medications chronic diastolic heart failure, patient on the dry side chronic LBBB PAF as per records, patient NSR No signs and or symptoms of fluid overload hx PVD DM2 insulin requiring, well-controlled as of recent hemoglobin A1c of 6.62 months ago Basal bolus insulin, ISS BG goal 1 10-1 40, carb count carbs PT OT eval Cchronic anemia, hemoglobin at baseline DVT prophylaxis with heparin subcu Full code Patient son requesting updates providers. Mr. Tenzin Araya, contact #[phone]. Will need to stay few more days before things are better Will need to stay for a few more days before discharged Admission and Anticipated Discharge Date Admission Date: October 10, 2023 Subjective 10/11/2023 The patient was seen and examined in telemetry unit and in the COVID room She has been feeling weakness and tiredness and continues to have loose bowel movements Has abdominal pain as well without nausea and or vomiting No significant respiratory symptoms 10/12/2023 The patient was seen and examined in telemetry unit and in the COVID room She is a little better today but is still having profuse diarrhea Denies any significant abdominal pain and does not have any respiratory symptoms 10/13/2023 The patient was seen and examined in telemetry unit and in the COVID room She remains generally weak and lethargic and is still having diarrhea though the diarrhea is little bit better today Has cough but no shortness of breath at rest Has abdominal discomfort but no pain 10/14/2023 The patient was seen and examined in telemetry unit and in the COVID room She has been feeling a little better and the diarrhea seems to be controlled Complains to have cough without any shortness of breath Has been requiring 2 L to maintain saturation Remains generally weak 10/15/2023 Patient was seen and examined in telemetry unit and in the COVID room She has been generally very weak and lethargic Her cough is better and the diarrhea is improved She is not yet ready to go to [facility] due to extreme weakness and tiredness Review of Systems Review of Systems: All systems reviewed and are unremarkable except as noted below Physical Exam Physical Exam: Lying in bed comfortably Constitutional: well developed, well nourished, + ill appearing and + obese Eyes: PERRL, conjunctivae normal, anicteric sclerae ENMT: external ear and nose normal, oropharynx normal Neck: trachea midline, no thyromegaly Respiratory: no respiratory distress Auscultation: + diminished lung sounds and + crackles (Minimal crackles at the bases) Cardiovascular: Rate/Rhythm: regular rate and regular rhythm; not tachycardic Heart Sounds: normal S1 and normal S2; no murmur Extremities: no edema Gastrointestinal (Abdomen): Inspection/Auscultation: normal bowel sounds; abdomen not distended Percussion/Palpation: + abdomen tender and abdomen soft Neurologic: normal touch/pain/proprioception and moves all extremities; no focal motor deficits Lymphatic: no cervical or axillary lymphadenopathy Results & Data Results & Data Vital Signs (Past 12 Hours) Vital Signs Temp Pulse Pulse Resp BP Pulse Ox O2 Del Method 10/15/23 12:40 36.8 C 77 18 131/82 97 Nasal Cannula 10/15/23 09:30 Nasal Cannula 10/15/23 08:15 37.0 C 81 18 129/86 96 Nasal Cannula 10/15/23 06:01 68 10/15/23 03:30 37.4 C 67 20 135/72 97 Nasal Cannula O2 Flow Rate 10/15/23 12:40 10/15/23 09:30 2 10/15/23 08:15 2 10/15/23 06:01 10/15/23 03:30 2 Laboratory Results Short CBC 10/15/23 Range/Units 05:34 WBC 7.30 (4.8-10.8) K/ul Hgb 8.1 L (12.0-16.0) g/dl Hct 24.2 L (37.0-47.0) % Plt Count 238 (130-400) K/uL [facility] 10/15/23 05:34 Sodium 132 L Potassium 3.8 Chloride 104 Carbon Dioxide 18 L BUN 62 H Creatinine 3.82 H Glucose 121 H Calcium 9.3 Liver Function 10/15/23 Range/Units 05:34 Albumin 3.5 (3.4-5.0) gm/dl Medications Administered Current Inpatient Medications Acetaminophen (Acetaminophen 500 Mg Tab) 1,000 mg PO BID [facility] Stop: 11/10/23 08:59 Last Admin: 10/15/23 09:19 Dose: 1,000 mg Allopurinol (Allopurinol 100 Mg Tab) 200 mg PO QDL [facility] Stop: 11/10/23 11:29 Last Admin: 10/14/23 13:05 Dose: 200 mg Amlodipine Besylate (Amlodipine Besylate 5 Mg Tab) 5 mg PO QAM [facility] Stop: 11/10/23 08:59 Last Admin: 10/15/23 09:20 Dose: 5 mg Aspirin (Aspirin 81 Mg Ectab) 81 mg PO QAM [facility] Stop: 11/10/23 08:59 Last Admin: 10/15/23 09:20 Dose: 81 mg Carvedilol (Carvedilol 25 Mg Tab) 25 mg PO BIDM [facility] Stop: 11/10/23 07:59 Last Admin: 10/15/23 09:21 Dose: 25 mg Cyanocobalamin (Cyanocobalamin (B-12) 500 Mcg Tablet) 500 mcg PO QAM [facility] Stop: 11/10/23 08:59 Last Admin: 10/15/23 09:20 Dose: 500 mcg Dextrose (Dextrose 50% 50 Ml Syringe) 25 - 50 ml IV UD PRN; Protocol PRN Reason: Hypoglycemia Protocol Stop: 11/09/23 23:55 Famotidine (Famotidine 20 Mg Tab) 20 mg PO QDD [facility] Stop: 11/10/23 16:29 Last Admin: 10/14/23 17:14 Dose: 20 mg Fidaxomicin (Fidaxomicin 200 Mg Tab) 200 mg PO BID [facility] Stop: 10/21/23 01:09 Last Admin: 10/15/23 09:39 Dose: 200 mg Glucagon (Glucagon For Inj 1 Mg Vial) 1 mg SQ UD PRN; Protocol PRN Reason: Hypoglycemia Protocol Stop: 11/09/23 23:55 Glucose (Glucose 10 Tab/Tube) 4 - 8 tab PO UD PRN; Protocol PRN Reason: Hypoglycemia Treatment Stop: 11/09/23 23:55 Glucose (Glucose 40% Gel 15 Gm Tube) 15 - 30 gm PO UD PRN; Protocol PRN Reason: Hypoglycemia Protocol Stop: 11/09/23 23:55 Heparin Sodium (Porcine) (Heparin Sod 5,000 Unit/0.5 Ml Vial) 5,000 units SQ Q8H [facility] Stop: 11/10/23 05:59 Last Admin: 10/15/23 05:45 Dose: 5,000 units Hydralazine HCl (Hydralazine Tab 50 Mg Tab) 100 mg PO TID [facility] Stop: 11/09/23 23:55 Last Admin: 10/15/23 09:19 Dose: 100 mg Hydroxyzine HCl (Hydroxyzine Hcl 10 Mg Tab) 10 mg PO QID PRN PRN Reason: Anxiety Stop: 11/09/23 22:15 Last Admin: 10/15/23 09:20 Dose: 10 mg Promethazine HCl 6.25 mg/ (Sodium Chloride) 50.25 mls @ 201 mls/hr IV Q6H PRN PRN Reason: Nausea And Vomiting Stop: 11/09/23 22:15 Insulin Aspart (Insulin Aspart Per Unit Charge) 0 units SC ACHS [facility] Stop: 11/09/23 23:55 Last Admin: 10/15/23 09:11 Dose: 2 units Insulin Glargine (Lantus Per Unit Charge) 5 units SQ DAILY [facility] Stop: 11/10/23 08:59 Last Admin: 10/15/23 09:32 Dose: 5 units Isosorbide Dinitrate (Isosorbide Dinitrate 40 Mg Tab) 40 mg PO TID@0700,1200,1700 [facility] Stop: 11/10/23 06:59 Last Admin: 10/15/23 09:21 Dose: 40 mg Lidocaine (Lidocaine 5% 1 Patch) 1 patch TD DAILY [facility] Stop: 11/10/23 08:59 Last Admin: 10/15/23 09:21 Dose: 1 patch Miscellaneous (Remove Lidoderm Patch) 1 each N/A DAILY@2100 [facility] Stop: 11/10/23 20:59 Last Admin: 10/14/23 20:51 Dose: 1 each Miscellaneous (Carbohydrates For Hypoglycemia ) 15 - 30 gm PO UD PRN PRN Reason: Hypoglycemia Protocol Stop: 11/09/23 23:55 Pantoprazole Sodium (Pantoprazole 40 Mg Tab) 40 mg PO QAM [facility] Stop: 11/10/23 08:59 Last Admin: 10/15/23 09:20 Dose: 40 mg Polyethylene Glycol (Polyethylene (Miralax) 17 Gm Pack) 17 gm PO BID PRN PRN Reason: Constipation Stop: 11/09/23 23:55 Rosuvastatin Calcium (Rosuvastatin Calcium 10 Mg Tab) 10 mg PO HS [facility] Stop: 11/10/23 20:59 Last Admin: 10/14/23 20:54 Dose: 10 mg Saccharomyces Boulardii (Saccharomyces Boulardii 250 Mg Cap) 250 mg PO QAM [facility] Stop: 11/10/23 08:59 Last Admin: 10/15/23 09:20 Dose: 250 mg Sennosides (Senna 8.6 Mg Tab) 8.6 mg PO HS PRN PRN Reason: Constipation Stop: 11/09/23 23:55 Sodium Bicarbonate (Sodium Bicarbonate 650 Mg Tab) 650 mg PO BID [facility] Stop: 11/14/23 12:14
[2023-10-15] MEDS: SODIUM BICARBONATE 650 MG TAB PO SCH ×2 (13:08→21:05)
[2023-10-15] MEDS: allopurinoL 100 MG TAB PO SCH (13:09)
[2023-10-15] MEDS: FAMOTIDINE 20 MG TAB PO SCH (17:44)
[2023-10-15] MEDS: ROSUVASTATIN CALCIUM 10 MG TAB PO SCH (21:05)
[2023-10-16] MEDS: HEPARIN SOD 5,000 UNIT/0.5 ML VIAL SQ SCH (06:08)
[2023-10-16 06:47] LABS: Albumin Level 3.6 gm/dl (3.4-5.0); BUN Creatinine Ratio 17.9 (10-20); Calcium 9.4 mg/dl (8.6-10.3); Est GFR (African American) 12.2 ml/min; Est GFR (Non-African American) 10.5 ml/min; Phosphorus 4.1 mg/dl (2.5-4.9); Potassium 3.9 mmol/L (3.5-5.1)
[2023-10-16] MEDS: INSULIN ASPART PER UNIT CHARGE SC SCH ×2 (08:17→13:14)
[2023-10-16] MEDS: FIDAXOMICIN 200 MG TAB PO SCH (08:48)
[2023-10-16] MEDS: hydrALAZINE TAB 50 MG TAB PO SCH ×2 (08:48→13:21)
[2023-10-16] MEDS: ACETAMINOPHEN 500 MG TAB PO SCH (08:48)
[2023-10-16] MEDS: SACCHAROMYCES BOULARDII 250 MG CAP PO SCH (08:49)
[2023-10-16] MEDS: amLODIPine BESYLATE 5 MG TAB PO SCH (08:49)
[2023-10-16] MEDS: CYANOCOBALAMIN (B-12) 500 MCG TABLET PO SCH (08:49)
[2023-10-16] MEDS: carvediloL 25 MG TAB PO SCH (08:49)
[2023-10-16] MEDS: SODIUM BICARBONATE 650 MG TAB PO SCH (08:49)
[2023-10-16] MEDS: ISOSORBIDE DINITRATE 40 MG TAB PO SCH ×2 (08:49→13:21)
[2023-10-16] MEDS: ASPIRIN 81 MG ECTAB PO SCH (08:49)
[2023-10-16] MEDS: LIDOCAINE 5% 1 PATCH TD SCH (08:50)
[2023-10-16] MEDS: PANTOprazole 40 MG TAB PO SCH (08:50)
[2023-10-16] MEDS: LANTUS PER UNIT CHARGE SQ SCH (09:30)
--- NOTE | 2023-10-16 11:21 | Hospitalist Progress Note ---
Date of Service October 16, 2023 Assessment & Plan (1) Hypertensive crisis: Plan: Hypertensive crisis: Plan: Worsening kidney dysfunction, ARF on CKD Spironolactone intolerance Presenting as transient headache symptoms secondary to very high blood pressure IV labetalol 1 dose now Titrate home BP meds Clinically much better since admission Blood pressure is well-controlled as of now Headache is much better Denies any more headache and the blood pressure is controlled Blood pressure is reasonably controlled and denies no more headache Blood pressure remains minimally elevated at 162/61-will not increase or adjust any other medication Acute kidney injury on chronic kidney disease Has been making out enough urine If creatinine does not improve or get worse will get nephrology involved Creatinine has been going up and is more than 4 today likely secondary to dehydration from ongoing diarrhea Appreciate nephrology input and recommendation Will monitor PRP-creatinine has been creeping up Nephrology has been following-no need for dialysis as of yet Kidney function is little better today with creatinine little improved to 4.0 Advised to drink more fluid-will not give any intravenous fluid Creatinine has been improving and seems to be around her baseline Advised to drink a little bit more fluid COVID-19 illness Does not have any respiratory symptoms Has been requiring 1 L to maintain saturation Will not put any medications for COVID-19 infection Denies any respiratory symptoms Has minimal cough and requiring 2 L to maintain saturation Has cough and will give some cough suppressant Cough is better and does not have any respiratory symptoms at rest Will need 4 more days of isolation at the facility 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 difficile Possible sepsis Flagyl 1 dose for possible C. difficile given possible sepsis Dificid course if with recurrent C. difficile Still having diarrhea and will not administer any antidiarrheal for now Still having profuse diarrhea and making her dehydrated with impairment of kidney function Diarrhea is slightly better and this is making her weak and lethargic and dehydration as well Diarrhea seems to be controlled and has had only 1 bowel movement since this morning Diarrhea has improved a lot and will continue current medications Will continue Dificid for a total of 14 days chronic diastolic heart failure, patient on the dry side chronic LBBB PAF as per records, patient NSR No signs and or symptoms of fluid overload hx PVD DM2 insulin requiring, well-controlled as of recent hemoglobin A1c of 6.62 months ago Basal bolus insulin, ISS BG goal 1 10-1 40, carb count carbs PT OT eval Cchronic anemia, hemoglobin at baseline DVT prophylaxis with heparin subcu Full code Patient son requesting updates providers. Mr. Tenzin Araya, contact #[phone]. Will need to stay few more days before things are better Will need to stay for a few more days before discharged Discussed with the son and she will be discharged today to [facility] Admission and Anticipated Discharge Date Admission Date: October 10, 2023 Subjective 10/11/2023 The patient was seen and examined in telemetry unit and in the COVID room She has been feeling weakness and tiredness and continues to have loose bowel movements Has abdominal pain as well without nausea and or vomiting No significant respiratory symptoms 10/12/2023 The patient was seen and examined in telemetry unit and in the COVID room She is a little better today but is still having profuse diarrhea Denies any significant abdominal pain and does not have any respiratory symptoms 10/13/2023 The patient was seen and examined in telemetry unit and in the COVID room She remains generally weak and lethargic and is still having diarrhea though the diarrhea is little bit better today Has cough but no shortness of breath at rest Has abdominal discomfort but no pain 10/14/2023 The patient was seen and examined in telemetry unit and in the COVID room She has been feeling a little better and the diarrhea seems to be controlled Complains to have cough without any shortness of breath Has been requiring 2 L to maintain saturation Remains generally weak 10/15/2023 Patient was seen and examined in telemetry unit and in the COVID room She has been generally very weak and lethargic Her cough is better and the diarrhea is improved She is not yet ready to go to [facility] due to extreme weakness and tiredness 10/16/2023 The patient was seen and examined in telemetry unit and in the COVID room She has been much better today and the weakness is improving No more diarrhea Has minimal cough and saturating normally on room air Review of Systems Review of Systems: All systems reviewed and are unremarkable except as noted below Physical Exam Physical Exam: Lying in bed comfortably Constitutional: well developed, well nourished and + obese; not ill appearing Eyes: PERRL, conjunctivae normal, anicteric sclerae ENMT: external ear and nose normal, oropharynx normal Neck: trachea midline, no thyromegaly Respiratory: no respiratory distress Auscultation: + diminished lung sounds and + crackles (Minimal crackles at the bases) Cardiovascular: Rate/Rhythm: regular rate and regular rhythm; not tachycardic Heart Sounds: normal S1 and normal S2; no murmur Extremities: no edema Gastrointestinal (Abdomen): Inspection/Auscultation: normal bowel sounds; abdomen not distended Percussion/Palpation: + abdomen tender and abdomen soft Musculoskeletal: No acute arthritis involving any joint Neurologic: normal touch/pain/proprioception and moves all extremities; no focal motor deficits Lymphatic: no cervical or axillary lymphadenopathy Results & Data Results & Data Vital Signs (Past 12 Hours) Vital Signs Temp Pulse Pulse Resp BP Pulse Ox O2 Del Method 10/16/23 08:48 94 Room Air 10/16/23 07:42 36.7 C 75 20 160/61 H 96 Nasal Cannula 10/16/23 03:41 37.4 C 87 20 150/66 H 94 Room Air 10/16/23 00:00 74 O2 Flow Rate 10/16/23 08:48 10/16/23 07:42 1.0 10/16/23 03:41 1 10/16/23 00:00 Laboratory Results [facility] 10/16/23 05:50 Sodium 132 L Potassium 3.9 Chloride 103 Carbon Dioxide 19 L BUN 65 H Creatinine 3.64 H Glucose 126 H Calcium 9.4 Liver Function 10/16/23 Range/Units 05:50 Albumin 3.6 (3.4-5.0) gm/dl Medications Administered Current Inpatient Medications Acetaminophen (Acetaminophen 500 Mg Tab) 1,000 mg PO BID [facility] Stop: 11/10/23 08:59 Last Admin: 10/16/23 08:48 Dose: 1,000 mg Allopurinol (Allopurinol 100 Mg Tab) 200 mg PO QDL [facility] Stop: 11/10/23 11:29 Last Admin: 10/15/23 13:09 Dose: 200 mg Amlodipine Besylate (Amlodipine Besylate 5 Mg Tab) 5 mg PO QAM [facility] Stop: 11/10/23 08:59 Last Admin: 10/16/23 08:49 Dose: 5 mg Aspirin (Aspirin 81 Mg Ectab) 81 mg PO QAM [facility] Stop: 11/10/23 08:59 Last Admin: 10/16/23 08:49 Dose: 81 mg Carvedilol (Carvedilol 25 Mg Tab) 25 mg PO BIDM [facility] Stop: 11/10/23 07:59 Last Admin: 10/16/23 08:49 Dose: 25 mg Cyanocobalamin (Cyanocobalamin (B-12) 500 Mcg Tablet) 500 mcg PO QAM [facility] Stop: 11/10/23 08:59 Last Admin: 10/16/23 08:49 Dose: 500 mcg Dextrose (Dextrose 50% 50 Ml Syringe) 25 - 50 ml IV UD PRN; Protocol PRN Reason: Hypoglycemia Protocol Stop: 11/09/23 23:55 Famotidine (Famotidine 20 Mg Tab) 20 mg PO QDD [facility] Stop: 11/10/23 16:29 Last Admin: 10/15/23 17:44 Dose: 20 mg Fidaxomicin (Fidaxomicin 200 Mg Tab) 200 mg PO BID [facility] Stop: 10/21/23 01:09 Last Admin: 10/16/23 08:48 Dose: 200 mg Glucagon (Glucagon For Inj 1 Mg Vial) 1 mg SQ UD PRN; Protocol PRN Reason: Hypoglycemia Protocol Stop: 11/09/23 23:55 Glucose (Glucose 10 Tab/Tube) 4 - 8 tab PO UD PRN; Protocol PRN Reason: Hypoglycemia Treatment Stop: 11/09/23 23:55 Glucose (Glucose 40% Gel 15 Gm Tube) 15 - 30 gm PO UD PRN; Protocol PRN Reason: Hypoglycemia Protocol Stop: 11/09/23 23:55 Heparin Sodium (Porcine) (Heparin Sod 5,000 Unit/0.5 Ml Vial) 5,000 units SQ Q8H [facility] Stop: 11/10/23 05:59 Last Admin: 10/16/23 06:08 Dose: 5,000 units Hydralazine HCl (Hydralazine Tab 50 Mg Tab) 100 mg PO TID [facility] Stop: 11/09/23 23:55 Last Admin: 10/16/23 08:48 Dose: 100 mg Hydroxyzine HCl (Hydroxyzine Hcl 10 Mg Tab) 10 mg PO QID PRN PRN Reason: Anxiety Stop: 11/09/23 22:15 Last Admin: 10/15/23 09:20 Dose: 10 mg Promethazine HCl 6.25 mg/ (Sodium Chloride) 50.25 mls @ 201 mls/hr IV Q6H PRN PRN Reason: Nausea And Vomiting Stop: 11/09/23 22:15 Insulin Aspart (Insulin Aspart Per Unit Charge) 0 units SC ACHS [facility] Stop: 11/09/23 23:55 Last Admin: 10/16/23 08:17 Dose: 3 units Insulin Glargine (Lantus Per Unit Charge) 5 units SQ DAILY [facility] Stop: 11/10/23 08:59 Last Admin: 10/16/23 09:30 Dose: 5 units Isosorbide Dinitrate (Isosorbide Dinitrate 40 Mg Tab) 40 mg PO TID@0700,1200,1700 [facility] Stop: 11/10/23 06:59 Last Admin: 10/16/23 08:49 Dose: 40 mg Lidocaine (Lidocaine 5% 1 Patch) 1 patch TD DAILY [facility] Stop: 11/10/23 08:59 Last Admin: 10/16/23 08:50 Dose: 1 patch Miscellaneous (Remove Lidoderm Patch) 1 each N/A DAILY@2100 [facility] Stop: 11/10/23 20:59 Last Admin: 10/15/23 21:04 Dose: 1 each Miscellaneous (Carbohydrates For Hypoglycemia ) 15 - 30 gm PO UD PRN PRN Reason: Hypoglycemia Protocol Stop: 11/09/23 23:55 Pantoprazole Sodium (Pantoprazole 40 Mg Tab) 40 mg PO QAM [facility] Stop: 11/10/23 08:59 Last Admin: 10/16/23 08:50 Dose: 40 mg Polyethylene Glycol (Polyethylene (Miralax) 17 Gm Pack) 17 gm PO BID PRN PRN Reason: Constipation Stop: 11/09/23 23:55 Rosuvastatin Calcium (Rosuvastatin Calcium 10 Mg Tab) 10 mg PO HS [facility] Stop: 11/10/23 20:59 Last Admin: 10/15/23 21:05 Dose: 10 mg Saccharomyces Boulardii (Saccharomyces Boulardii 250 Mg Cap) 250 mg PO QAM [facility] Stop: 11/10/23 08:59 Last Admin: 10/16/23 08:49 Dose: 250 mg Sennosides (Senna 8.6 Mg Tab) 8.6 mg PO HS PRN PRN Reason: Constipation Stop: 11/09/23 23:55 Sodium Bicarbonate (Sodium Bicarbonate 650 Mg Tab) 650 mg PO BID [facility] Stop: 11/14/23 12:14 Last Admin: 10/16/23 08:49 Dose: 650 mg
--- NOTE | 2023-10-16 11:55 | Nephrology Progress Note ---
Date of Service October 16, 2023 Assessment & Plan (1) MISTI (acute kidney injury): Plan: 87 year old F with stage G5 CKD, b/l Cr 3.0 mg/dl, eGFR 13 cc/min due to DKD, HTN and microvascular disease, valvular heart disease w/ moderate MR, nocturnal hypoxemia requiring home O2, pulmonary HTN, osteopenia, C. Difficile colitis, presented on 10/10/23 with Hypertensive urgency, SOB, diarrhea and fatigue due to COVID and C. Diff colitis. Cr was 4.2. Urinalysis was unremarkable. 09/26/[address] without IV contrast showed atrophic kidneys without obstruction. 5.9 cm complex lesion in L renal pelvis is unchanged from prior imaging. CXR was without overt CHF. Dificid has been added to treat C. Difficile. She has left brachiocephalic AV fistula placed a month ago. Overall clinically doing better, diarrhea resolved, blood pressure improved. --Encourage increase p.o. intake, dose medications for eGFR less than 15 , avoid all nephrotoxic medications. --continue to hold diuretics, --continue sodium bicarbonate 650 mg twice a day. --Okay to be discharge with close outpatient monitoring. Admission and Anticipated Discharge Date Admission Date: October 10, 2023 Priya Plascencia was seen and evaluated in ICU this morning. Overall she is doing better, cough and SOB improved but still weak. Diarrhea resolved. Blood pressure improved and has been staying well-controlled. Voiding normally. Slow improvement in renal function, creatinine down to 3.6. Review of Systems Review of Systems: Detailed review of system was done and pertinent positives and negatives are mentioned above. Physical Exam Constitutional: WD/WN, vitals as above no acute distress Respiratory: no respiratory distress Auscultation: lungs clear to auscultation bilaterally Cardiovascular: Rate/Rhythm: regular rate and regular rhythm Heart Sounds: normal S1 and normal S2 Extremities: + AV fistula (left BC AVF with thrill and bruit); no edema Skin: no rashes, warm and dry Neurologic: no focal motor deficits Psychiatric: Orientation: alert and oriented x 3 Results & Data Vital Signs (Past 12 Hours) Vital Signs Temp Pulse Pulse Resp BP Pulse Ox O2 Del Method 10/16/23 11:46 36.7 C 76 18 135/62 95 Room Air 10/16/23 08:48 94 Room Air 10/16/23 07:42 36.7 C 75 20 160/61 H 96 Nasal Cannula 10/16/23 03:41 37.4 C 87 20 150/66 H 94 Room Air 10/16/23 00:00 74 O2 Flow Rate 10/16/23 11:46 10/16/23 08:48 10/16/23 07:42 1.0 10/16/23 03:41 1 10/16/23 00:00 PG Care Time/CCT Total # of Minutes Spent Total Time Spent with Patient: Total time spent is greater than 50% in coordination of care (as documented) at patient's floor/unit and/or counseling patient: Coding Level of Care Code 23152 SUB INP/OBS CARE 2/35MIN Diagnoses MISTI (acute kidney injury) N17.9
[2023-10-16] MEDS: allopurinoL 100 MG TAB PO SCH (13:22)
--- NOTE | 2023-10-16 15:19 | Discharge Summary ---
Date of Service October 16, 2023 Admission HPI Per Admitting Provider History obtained from patient and records. Medical history significant for chronic diastolic heart failure (EF 55 to 60%, TTE 2022), chronic left bundle branch block, PAF as per records, valvular heart disease (moderate MR/TR, mild AR), PVD, hypertension, nocturnal hypoxemia on home O2 at night, pulmonary hypertension, DM2 insulin requiring, CRI (baseline creatinine 3), hyperparathyroidism as per records, GERD, chronic constipation, history of C. difficile, chronic anemia (baseline hemoglobin of 9), renal cysts. Last confinement 2 weeks ago for right flank pain attributed to possible UTI. Patient received ceftriaxone during confinement. No growth on final urine CS. Few days ago, patient noted increased congestion productive of clear sputum, sore throat. Transient headache symptoms and dizziness. Loose stools, nausea, fever, chills, poor appetite. No overt abdominal pain. Highest SBP of 210s noted at the ER. MEDICAL HISTORY: As above. SURGERIES: knee surgeries, hysterectomy, bilateral tubal ligation, cholecystectomy, appendectomy, cataract surgery FAMILY HISTORY: Laryngeal cancer, stroke and throat cancer. 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 Admission Exam Per Admitting Provider Physical Exam: GENERAL: Anxious, obese, uncomfortable, no respiratory distress SKIN: Pallor, warm HEENT: Pale palpebral conjunctivae, no ptosis, dry buccal mucosa NECK : Supple, short neck, no tenderness CHEST : Decreased breath sounds, no tenderness HEART : RRR, systolic murmur ABDOMEN: Some distention, minimal hypogastric tenderness EXTREMITIES : Minimal LE swelling , no LE tenderness, no other conspicuous deformities noted NEUROLOGIC : Coherent, no facial asymmetry, no other gross focality Principal Diagnosis Hypertensive crisis, COVID-19 virus infection with weakness, MISTI on CKD, Discharge Exam Lying in bed comfortably Constitutional well developed, well nourished and + obese; not ill appearing Eyes PERRL, conjunctivae normal, anicteric sclerae ENMT external ear and nose normal, oropharynx normal Neck trachea midline, no thyromegaly Respiratory no respiratory distress Auscultation: + diminished lung sounds and + crackles (Minimal crackles at the bases) Cardiovascular Rate/Rhythm: regular rate and regular rhythm; not tachycardic Heart Sounds: normal S1 and normal S2; no murmur Extremities: no edema Gastrointestinal (Abdomen) Inspection/Auscultation: normal bowel sounds; abdomen not distended Percussion/Palpation: + abdomen tender and abdomen soft Neurologic normal touch/pain/proprioception and moves all extremities; no focal motor deficits Lymphatic no cervical or axillary lymphadenopathy Discharge Data Allergies Allergy/AdvReac Type Severity Reaction Status Date / Time morphine AdvReac Intermediate Confusion Verified 09/26/23 10:53 phenylpropanolamine AdvReac Intermediate INTOLERANCE Verified 09/26/23 10:53 spironolactone AdvReac Intermediate weakness Verified 09/26/23 10:53 Consultations 10/10/23 21:37 ED Decision to Admit Stat 10/12/23 08:14 Consult Nephrology Routine Ordered Studies 10/10/23 22:07 CT head/brain wo con Stat Hospital Course (1) Hypertensive crisis: Hypertensive crisis: Plan: Worsening kidney dysfunction, ARF on CKD Spironolactone intolerance Presenting as transient headache symptoms secondary to very high blood pressure IV labetalol 1 dose now Titrate home BP meds Clinically much better since admission Blood pressure is well-controlled as of now Headache is much better Denies any more headache and the blood pressure is controlled Blood pressure is reasonably controlled and denies no more headache Blood pressure remains minimally elevated at 162/61-will not increase or adjust any other medication Acute kidney injury on chronic kidney disease Has been making out enough urine If creatinine does not improve or get worse will get nephrology involved Creatinine has been going up and is more than 4 today likely secondary to dehydration from ongoing diarrhea Appreciate nephrology input and recommendation Will monitor PRP-creatinine has been creeping up Nephrology has been following-no need for dialysis as of yet Kidney function is little better today with creatinine little improved to 4.0 Advised to drink more fluid-will not give any intravenous fluid Creatinine has been improving and seems to be around her baseline Advised to drink a little bit more fluid COVID-19 illness Does not have any respiratory symptoms Has been requiring 1 L to maintain saturation Will not put any medications for COVID-19 infection Denies any respiratory symptoms Has minimal cough and requiring 2 L to maintain saturation Has cough and will give some cough suppressant Cough is better and does not have any respiratory symptoms at rest Will need 4 more days of isolation at the facility 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 difficile Possible sepsis Flagyl 1 dose for possible C. difficile given possible sepsis Dificid course if with recurrent C. difficile Still having diarrhea and will not administer any antidiarrheal for now Still having profuse diarrhea and making her dehydrated with impairment of kidney function Diarrhea is slightly better and this is making her weak and lethargic and dehydration as well Diarrhea seems to be controlled and has had only 1 bowel movement since this morning Diarrhea has improved a lot and will continue current medications Will continue Dificid for a total of 14 days chronic diastolic heart failure, patient on the dry side chronic LBBB PAF as per records, patient NSR No signs and or symptoms of fluid overload hx PVD DM2 insulin requiring, well-controlled as of recent hemoglobin A1c of 6.62 months ago Basal bolus insulin, ISS BG goal 1 10-1 40, carb count carbs PT OT eval Cchronic anemia, hemoglobin at baseline DVT prophylaxis with heparin subcu Full code Patient son requesting updates providers. Mr. Tenzin Araya, contact #[phone]. Will need to stay few more days before things are better Will need to stay for a few more days before discharged Discussed with the son and she will be discharged today to [facility] Total Time Total Time Spent Total Time Spent (In Minutes): 45 minutes Discharge Plan Discharge Items Patient Disposition: Transfer Inpatient Rehab Fac Reason For Visit: HTN CRISIS, COVID Discharge Diagnosis: Hypertensive crisis, COVID-19 virus infection with weakness, MISTI on CKD, Condition on Discharge: Fair Activity: Resume your previous activity Activity Comment: Continue PT and OT Non-emergency contact: Primary Care Provider Call non-emergency contact if: you have any medication questions and your symptoms worsen Follow-up/Referrals: Fox Ramirez MD [Primary Care Provider] - (Please make an appointment with your PCP within 7 days following discharge from the facility) Diet: Carb Consistent or DM2 and Low Sodium (2gm) Addtl Attending Provider Instructions: Please take precautions to avoid falls Continue physical and occupational therapy at the facility Finish the course of your antibiotic Your furosemide and spironolactone are on hold which can be started as an outpatient by the ep technologist if needed Please keep appointments with your healthcare providers You need to be isolated until 20 October as recommended below: Home Isolation COVID-19 Instructions The following information about Home Isolation is from the CDC Website: https://www.cdc.gov/coronavirus/2019-ncov/hcp/fxxyrmik-avcknwz-tlkhhu.html Stay home except to get medical care People who are mildly ill with COVID-19 are able to isolate at home during their illness. You should restrict activities outside your home, except for getting medical care. Do not go to work, school, or public areas. Avoid using public transportation, ride-sharing, or taxis. Separate yourself from other people and animals in your home People: As much as possible, you should stay in a specific room and away from other people in your home. Also, you should use a separate bathroom, if available. Animals: You should restrict contact with pets and other animals while you are sick with COVID-19, just like you would around other people. Although there have not been reports of pets or other animals becoming sick with COVID-19, it is still recommended that people sick with COVID-19 limit contact with animals until more information is known about the virus. When possible, have another member of your household care for your animals while you are sick. If you are sick with COVID-19, avoid contact with your pet, including petting, snuggling, being kissed or licked, and sharing food. If you must care for your pet or be around animals while you are sick, wash your hands before and after you interact with pets and wear a face mask. Call ahead before visiting your doctor If you have a medical appointment, call the healthcare provider and tell them that you have or may have COVID-19. This will help the healthcare providers office take steps to keep other people from getting infected or exposed. Wear a face mask You should wear a face mask when you are around other people (e.g., sharing a room or vehicle) or pets and before you enter a healthcare providers office. If you are not able to wear a face mask (for example, because it causes trouble breathing), then people who live with you should not stay in the same room with you, or they should wear a face mask if they enter your room. Cover your coughs and sneezes Cover your mouth and nose with a tissue when you cough or sneeze. Throw used tissues in a lined trash can. Immediately wash your hands with soap and water for at least 20 seconds or, if soap and water are not available, clean your hands with an alcohol-based hand home agent that contains at least 60% alcohol. Clean your hands often Wash your hands often with soap and water for at least 20 seconds, especially after blowing your nose, coughing, or sneezing; going to the bathroom; and before eating or preparing food. If soap and water are not readily available, use an alcohol-based hand home agent with at least 60% alcohol, covering all surfaces of your hands and rubbing them together until they feel dry. Soap and water are the best option if hands are visibly dirty. Avoid touching your eyes, nose, and mouth with unwashed hands. Avoid sharing personal household items You should not share dishes, drinking glasses, cups, eating utensils, towels, or bedding with other people or pets in your home. After using these items, they should be washed thoroughly with soap and water. Clean all high-touch surfaces everyday High touch surfaces include counters, tabletops, doorknobs, bathroom fixtures, toilets, phones, keyboards, tablets, and bedside tables. Also, clean any surfaces that may have blood, stool, or body fluids on them. Use a household cleaning spray or wipe, according to the label instructions. Labels contain instructions for safe and effective use of the cleaning product including precautions you should take when applying the product, such as wearing gloves and making sure you have good ventilation during use of the product. Monitor your symptoms Seek prompt medical attention if your illness is worsening (e.g., difficulty breathing).Beforeseeking care, call your healthcare provider and tell them that you have, or are being evaluated for, COVID-19. Put on a face mask before you enter the facility. These steps will help the healthcare providers office to keep other people in the office or waiting room from getting infected or exposed. Ask your healthcare provider to call the local or state health department. Persons who are placed under active monitoring or facilitated self- monitoring should follow instructions provided by their local health department or occupational health professionals, as appropriate. When working with your local health department check their available hours. If you have a medical emergency and need to call 911, notify the dispatch personnel that you have, or are being evaluated for COVID-19. If possible, put on a face mask before emergency medical services arrive. Discontinuing home isolation Patients with confirmed COVID-19 should remain under home isolation precautions until the risk of secondary transmission to others is thought to be low. The decision to discontinue home isolation precautions should be made on a [id number] basis, in consultation with healthcare providers and state and local health departments. Pending Studies at Discharge: No Stand-Alone Forms: My [facility] Skilled Items Patient informed of condition?: Yes DNR: No Discharge Level of Care: Acute rehab Communicable Disease: No Discharge Prognosis: Stable Lines: None Urinary Catheter: No Medications and DC Order Prescriptions: New Dificid 200 mg Tablet 200 mg PO BID 8 Days Qty: 16 0RF sodium bicarbonate 650 mg Tablet 650 mg PO BID Qty: 60 0RF Continued ondansetron 4 mg tablet,disintegrating 4 mg PO Q6H PRN (Reason: nausea and vomiting) Qty: 14 0RF lidocaine [Salonpas (lidocaine)] 4 % Adhesive Patch,Medicated 1 patch TOPICAL DAILY aspirin 81 mg Tablet,Delayed Release (Dr/Ec) 81 mg PO QAM rosuvastatin 10 mg tablet 10 mg PO HS famotidine [Pepcid] 20 mg Tablet 20 mg PO QDD Rx Instructions: take with supper hydralazine 100 mg tablet 100 mg PO TID carvedilol 25 mg tablet 25 mg PO BIDM acetaminophen [Tylenol Extra Strength] 500 mg Tablet 1,000 mg PO BID polyethylene glycol 3350 [Miralax] 17 gram/dose Powder 17 g PO BID PRN (Reason: Constipation) Rx Instructions: HOLD FOR LOOSE STOOLS allopurinol 100 mg tablet 200 mg PO QDL sennosides [Senokot] 8.6 mg Tablet 8.6 mg PO HS PRN (Reason: Constipation) docusate sodium 100 mg capsule 100 mg PO BID amlodipine [Norvasc] 5 mg Tablet 5 mg PO QAM Qty: 30 0RF lidocaine 5 % Adhesive Patch,Medicated 1 patch transdermal DAILY Qty: 30 0RF diclofenac sodium 1 % gel 4 g TOP QID PRN (Reason: Pain) Rx Instructions: apply to bilateral knees cyanocobalamin (vitamin B-12) 500 mcg Tablet 500 mcg PO QAM Qty: 30 0RF Saccharomyces boulardii [Florastor] 250 mg capsule 250 mg PO QAM Humulin 70/30 U-100 Insulin 100 unit/mL (70-30) suspension See Rx Instructions .ROUTE .COMPLEX Patient Comments: takes 70 units in am takes 25-30 units pm Rx Instructions: TAKES 70 UNITS BEFORE BREAKFAST, THEN 30 UNITS BEFORE DINNER. omeprazole 20 mg capsule,delayed release(DR/EC) 20 mg PO QAM isosorbide dinitrate 20 mg tablet 40 mg PO TID Discontinued furosemide 20 mg tablet 20 mg PO Q OTHER DAY Qty: 45 3RF spironolactone 25 mg tablet 25 mg PO QAM Discharge Orders: Discharge Order (Routine); Ordered 10/16/23 Ordered By: Rose Warren Admission Data Admit Date/Time: 10/10/23 22:11 Attending Provider: Rose Warren Admit Provider: Flavio Doherty Primary Care Provider: Fox Ramirez Other Providers: Flavio Doherty; Clovis Childress; Melisa Morton Kevin C.; Kianna Emmanuel; [facility] Other Interventions: Discharge Summary Assessment (RN) Last Done: 10/16/23 13:32
== END 2023-10-16 13:51 | DRG 177 ==
LOC: ED 19:23 → 2E 22:11